=== PATIENT | female | born 1950 | race Caucasian/White ===

== ENCOUNTER 2024-03-11 10:31 | Inpatient (IN) | payer MEDICARE, MEDICAID, SELFPAY ==
--- NOTE | ~2024-03-11 | XR_ITS ---
EXAMINATION: XR ABDOMEN KUB CLINICAL INDICATION: R/O GI obstruction COMPARISON: None available. TECHNIQUE: AP view of the abdomen. FINDINGS: The bowel gas pattern is nonobstructive, without any evidence for free air. There is large colonic and rectal fecal material. Bony structures appear intact. There is multilevel thoracic and lumbar spondylosis. XR/XR KUB IMPRESSION: Nonobstructive bowel gas pattern. Large colonic and rectal fecal material. Electronically signed by: Chencho Ugalde MD 04/16/2024 02:13 PM [facility]
--- NOTE | ~2024-03-11 | CT_ITS ---
EXAMINATION: CT HEAD WITHOUT CONTRAST CLINICAL INFORMATION: Right-sided weakness. COMPARISON: None available. TECHNIQUE: Contiguous axial imaging was performed from the skull base to vertex without intravenous administration of contrast. This CT examination was performed using dose optimization techniques as appropriate, variously including the following: *Automated exposure control. *Adjustment of mA and/or kV according to patient size (this includes techniques or standardized protocols for targeted exams where dose is matched to indication/reason for exam; i.e. extremities or head). *Use of iterative reconstruction technique. DLP: 1428 mGy-cm FINDINGS: There is no evidence of acute intracranial hemorrhage or edematous territorial infarction. Kowalski-white matter differentiation is preserved. A few foci of hypoattenuation in the periventricular and deep white matter are consistent with mild to moderate microangiopathy. The ventricles are normal in morphology and size. No evidence for obstructive hydrocephalus. Arachnoid cyst in the anterior aspect of the right middle cranial fossa, measuring up to 4.5 cm. No additional abnormal mass effect or midline shift. No extra-axial fluid collections. Calcific atherosclerotic disease of the intracranial internal carotid arteries. No hyperdense vessel sign. No acute soft tissue or osseous abnormalities. Mild mucosal thickening of the paranasal sinuses. The mastoid air cells and middle ear cavities are clear. CT/CT head/brain wo IV con IMPRESSION: 1. No evidence of acute intracranial hemorrhage or edematous territorial infarction. 2. Mild to moderate underlying microangiopathy. 3. Arachnoid cyst in the right middle cranial fossa. Electronically signed by: Mino Arriaga DO 03/18/2024 06:26 PM [facility]
--- NOTE | ~2024-03-11 | CT_ITS ---
EXAMINATION: CT HEAD WITHOUT CONTRAST CLINICAL INFORMATION: Unwitnessed fall. COMPARISON: Most recent CT head dated 03/19/2024. TECHNIQUE: Contiguous axial imaging was performed from the skull base to vertex without intravenous administration of contrast. This CT examination was performed using dose optimization techniques as appropriate, variously including the following: *Automated exposure control *Adjustment of mA and/or kV according to patient size (this includes techniques or standardized protocols for targeted exams where dose is matched to indication/reason for exam; i.e. extremities or head) *Use of iterative reconstruction technique DLP: 650 mGy-cm FINDINGS: Mild prominence of the ventricles and sulci, consistent with mild diffuse atrophy, unchanged. Right middle cranial fossa arachnoid cyst, unchanged when compared to the prior examination. No intracranial mass or mass effect. No midline shift. The padilla-white differentiation is maintained. No new extra-axial collection. No acute intracranial hemorrhage. The ventricles and basal cisterns are patent. No soft tissue mass or fluid collection. The calvarium is intact. The visualized paranasal sinuses and mastoid air cells are clear. CT/CT head/brain wo IV con IMPRESSION: 1. No acute intracranial hemorrhage or mass effect. 2. Stable right middle cranial fossa arachnoid cyst. Electronically signed by: Getachew Arana MD 04/05/2024 05:[address] [facility]
--- NOTE | ~2024-03-11 | CT_ITS ---
EXAMINATION: CT HEAD WITHOUT CONTRAST CLINICAL INFORMATION: Trauma. COMPARISON: March 18, 2024 TECHNIQUE: Contiguous axial imaging was performed from the skull base to vertex without intravenous administration of contrast. This CT examination was performed using dose optimization techniques as appropriate, variously including the following: *Automated exposure control *Adjustment of mA and/or kV according to patient size (this includes techniques or standardized protocols for targeted exams where dose is matched to indication/reason for exam; i.e. extremities or head) *Use of iterative reconstruction technique DLP: 637 mGy-cm FINDINGS: There is again seen mild cerebral volume loss with prominence of the lateral and the third ventricles. The cortical sulci are widened appropriately. The fourth ventricle and basal cisterns are normally outlined. There is mild bilateral periventricular and central white matter diminished attenuation. There is no acute territorial defects, hemorrhage or midline shift. There is again seen a right middle cranial fossa arachnoid cyst measuring up to 4.5 cm unchanged compared to prior. Calvarium/scalp: The calvarium is intact. There is left frontal scalp soft tissue swelling not present on prior. Maxillofacial sinuses and mastoids: Clear as visualized. CT/CT head/brain wo IV con IMPRESSION: 1. Left frontal scalp soft tissue swelling. 2. No acute intracranial process seen. 3. Stable right middle cranial fossa arachnoid cyst. Electronically signed by: Andreas Olsen MD 03/19/2024 02:08 AM [facility]
[2024-03-11 10:44] VITALS: BP 101/55; BP 90/50; PULSE 88; PULSE 97; RESP 18; TEMP 36.5; O2SAT 98; BMI 27.4
--- NOTE | 2024-03-11 10:47 | ED_ITS ---
HPI - Psych General Chief Complaint: Psychiatric Symptoms Stated Complaint: SI ATTEMPT,ELOPED FROM SNF AND ENTERED TRAFFIC Time Seen by Provider: 03/11/24 10:41 Source: patient, EMS and old records reviewed Mode of arrival: EMS Limitations: other (poor historian) History of Present Illness ED Provider: SAM HPI Narrative: 73 yo female with hx of HTN, mood disorder, hypothyroidism, post op VTE 2 years, baseline Cr 1.1 - she comes today with thoughts that a friend is writing a story about her that is horrible and everyone will hate her. She doesn't say much more but she eloped from [place] today and tried to walk into traffic. She denies HI but doesn't want to live once everyone sees the book. MD complaint: suicidal ideation and feels depressed Onset (ago): week(s) Duration: getting worse History of same: Yes Relieving factors: none Exacerbating factors: other Context: significant life stressor Associated psychiatric symptoms: depression and suicidal ideation Associated symptoms: denies other symptoms Treatments prior to arrival: placed on mental health hold If self harm: admits thoughts of self harm and has plan Related Data Allergies Allergy/AdvReac Type Severity Reaction Status Date / Time No Known Allergies Allergy Verified 03/11/24 10:47 Review of Systems 2 Review of Systems: Constitutional : No Fever, No Chills ENT/Mouth : No Ear Pain, No Nasal Congestion, No sore throat Eyes: No Eye Pain, No Swelling, No Redness Cardiovascular : No Chest Pain, No SOB Respiratory : No Cough, No Sputum, No Dyspnea Gastrointestinal : No Nausea, No Vomiting, No Diarrhea, No Hematochezia, No Melena Genitourinary : No Dysuria, No Urinary Frequency, No Hematuria Musculoskeletal : No Myalgias Skin : No Skin Lesions, No rash Neuro : No Weakness, No Numbness, No Paresthesias, No Dizziness, No Headache Psych : positive Anxiety, positive Depression, positive SI no HI All other systems reviewed and are negative PMFSH Past Medical History Attestation statement: The following information was validated with the patient. Source: old records reviewed Medical History Hypothyroidism HTN (hypertension) GERD (gastroesophageal reflux disease) Mood disorder Social History Social History (Updated 03/11/24 @ 11:53 by Starla Cordero DO) Patient Tobacco Use Status: Tobacco use Unknown Physical Exam 2 Vital Signs: Vital Signs: Last Vital Signs Temp 97.7 F 03/11/24 10:44 Pulse 97 03/11/24 10:44 Resp 18 03/11/24 10:44 BP 101/55 L 03/11/24 10:44 Pulse Ox 98 03/11/24 10:44 O2 Del Method Room Air 03/11/24 10:44 BMI result Body Mass Index 27.4 Appearance: Alert. Oriented X3. No acute distress. guarded and anxious Eyes: Pupils equal, round and reactive to light. ENT: Pharynx normal. Neck: Normal inspection. Neck supple. CVS: Normal heart rate and rhythm. Pulses normal. Respiratory: No respiratory distress. Breath sounds normal. Abdomen: Soft and non-tender. Skin: Skin warm and dry. Normal skin color. Normal skin turgor. Extremities: No lower extremity edema. Neuro: Oriented X 3. No motor deficit. No sensory deficit. CN2-12 intact Medical Decision Making Medical Decision Making [facility] Narrative: 73 yo female with hx of HTN, mood disorder, hypothyroidism, post op VTE 2 years, baseline Cr 1.1 here with c/o SI and plan - eloped from [facility] at this time she has no medical complaints will obtain basic labs, UA, refer to CARE team. Differential Diagnosis Differential Diagnoses: The differential diagnosis associated with the presentation includes depression, SI, delusions Admission/Observation Consideration of admission/observation: Escalation of care including admission/observation considered physician observation pending CARE team started at 1202pm Lab Data [facility] Lab Attestation statement: I reviewed the patient's lab results. Cr 1.4 today baseline is 1.1 03/11/24 11:07 03/11/24 11:07 Labs: Lab Results 03/11/24 Range/Units 11:07 WBC 7.8 (4.8-10.8) X10*3/uL RBC 3.77 L (4.20-5.50) X10*6/uL Hgb 11.6 L (12.0-16.0) g/dl Hct 34.5 L (37.0-47.0) % MCV 91.5 (80.0-98.0) fL MCH 30.8 (27.0-33.0) pg MCHC 33.6 (31.0-35.0) g/dl RDW 14.8 (11.0-16.0) % Plt Count 205 (160-400) X10*3/uL MPV 10.3 (9.4-12.3) fL Immature Gran % (Auto) 0.4 (0.0-0.4) % Neut % (Auto) 80.2 H (45-73) % Lymph % (Auto) 9.8 L (20-40) % Anderson % (Auto) 8.6 (2-11) % Eos % (Auto) 0.5 (0-4) % Baso % (Auto) 0.5 (0-2) % Lymph # (Auto) 0.8 L (1.2-4.9) X10*3/uL Anderson # (Auto) 0.7 (0.1-1.2) X10*3/uL Eos # (Auto) 0.0 (0.0-0.4) X10*3/uL Baso # (Auto) 0.0 (0.0-0.2) X10*3/uL Abs Immat Gran (auto) 0.03 (0.00-0.03) X10*3/uL Absolute Neuts (auto) 6.2 (2.0-8.3) x10*3/uL Absolute Nucleated RBC 0.000 (0.0-0.012) X10*3/uL Nucleated RBC % (auto) 0.0 (0.0-0.2) /100WBC Sodium 141 (135-145) mmol/L Potassium 4.2 (3.3-5.1) mmol/L Chloride 107 (96-108) mmol/L Carbon Dioxide 24 (22-29) mmol/L Anion Gap 14 (12-20) BUN 18 H (9-16) mg/dL Creatinine 1.47 H (0.5-1.4) mg/dL Estim Creat Clear Calc 36.2 Estimated GFR 35 Random Glucose 119 H (60-115) mg/dL Calcium 9.8 (8.4-10.2) mg/dL Total Bilirubin 0.3 (0.0-1.0) mg/dL AST 20 (5-31) U/L ALT 16 (0-31) U/L Alkaline Phosphatase 90 (39-117) U/L Total Protein 6.0 L (6.5-8.0) g/dL Albumin 4.0 (3.5-5.0) g/dL Ethyl Alcohol < 10 mg/dL Independent Historian Clinical information obtained from an independent historian. History obtained from or confirmed by: EMS External Record Review External record reviewed: Outpatient record Discharge Plan Discharge Clinical Impression: Suicidal ideation Patient Disposition: Still a Patient Print Language: Mohawk
[2024-03-11 11:15] LABS: MANUAL DIFF FLAG NO
[2024-03-11 11:16] LABS: Basophils Percent Auto 0.5 % (0-2); Eosinophils Percent Auto 0.5 % (0-4); Hematocrit 34.5 % (37.0-47.0); Hemoglobin 11.6 g/dl (12.0-16.0); Imm Gran Abs Auto 0.03 X10*3/uL (0.00-0.03); Imm Gran Pct Auto 0.4 % (0.0-0.4); Lymphocytes Absolute Auto 0.8 X10*3/uL (1.2-4.9); Lymphocytes Percent Auto 9.8 % (20-40); Mean Corpuscular HGB Conc 33.6 g/dl (31.0-35.0); Mean Corpuscular Hemoglobin 30.8 pg (27.0-33.0); Mean Corpuscular Volume 91.5 fL (80.0-98.0); Mean Platelet Volume 10.3 fL (9.4-12.3); Monocytes Absolute Auto 0.7 X10*3/uL (0.1-1.2); Monocytes Percent Auto 8.6 % (2-11); Neutrophils Absolute Auto 6.2 x10*3/uL (2.0-8.3); Neutrophils Percent Auto 80.2 % (45-73); Platelet Count 205 X10*3/uL (160-400); Red Blood Count 3.77 X10*6/uL (4.20-5.50); Red Cell Distribution Width 14.8 % (11.0-16.0); White Blood Count 7.8 X10*3/uL (4.8-10.8)
[2024-03-11 11:34] LABS: Alanine Aminotransferase 16 U/L (0-31); Alkaline Phosphatase 90 U/L (39-117); Anion Gap 14 (12-20); Aspartate Amino Transferase 20 U/L (5-31); Bilirubin Total 0.3 mg/dL (0.0-1.0); Blood Urea Nitrogen 18 mg/dL (9-16); Calcium 9.8 mg/dL (8.4-10.2); Carbon Dioxide 24 mmol/L (22-29); Chloride 107 mmol/L (96-108); Creatinine Clr Calc Pharmacy 36.2; Estimated Glomerular Filt Rate 35; Ethanol < 10 mg/dL; Glucose Random 119 mg/dL (60-115); Potassium 4.2 mmol/L (3.3-5.1); Sodium 141 mmol/L (135-145)
[2024-03-11 12:06] VITALS: RESP 16
--- NOTE | 2024-03-11 12:09 | PC.NURSE ---
Assumed care of patient at 1100, patient appears to be in no apparent distress this am. pt endorses walking into traffic as an SI attempt. Unable to elaborate on why she feels suicidal. pt reports being worried that there are aggressive TV shows on . This RN changed the TV channel for pt, pt appears to be calm and cooperative now. Pt aware of need for urine sample, provided with water at this time
[2024-03-11 13:05] VITALS: RESP 14
--- NOTE | 2024-03-11 13:23 | PC.NURSE ---
This RN called [facility] and spoke with Cayla, the Clinical Director at [facility], regarding Deedee. She reports that Deedee has been living at [facility] for about 3-4 years now and within the last year, her psychiatrist at [facility] started changing her medications which seemed to put her in a spiral. She was put inpatient at [facility] in January and stayed there for about 3-4 weeks where they changed her Clozaril dosage. Pt has been back at [facility] for about 1.5 weeks and has been struggling since. Cayla relayed that Dr. Serrano ([facility] psychiatrist) has been trying to work with our inpatient psychiatrists here at [facility] to potentially restart her ECT therapy. She last received ECT therapy back in 1998 here at [facility]. Cayla- [phone]
[2024-03-11 13:38] LABS: Appearance Urine Clear; Color Urine Yellow; Glucose Urine UA Negative (Negative); Leukocyte Esterase Urine Small (1+) (Negative); Nitrite Urine Negative (Negative); PH 6.5 (5.0-9.0); Specific Gravity - Urine <= 1.005 (1.005-1.025); UMIC TRIGGER UACC YES; Urine Blood Negative (Negative); Urine Ketones Negative (Negative); Urine Protein Negative (Neg-Trace)
[2024-03-11 13:46] LABS: Bacteria Urine None Seen (None Seen); Hyaline Casts Urine 0-2 /LPF (0-2); RBC Urine 0-2 /HPF (0-2); Squamous Epithelial Cell Urine 0-2 /HPF (0-2); UACC Culture Trigger YES; WBC Urine 0-5 /HPF (0-5)
[2024-03-11 13:48] LABS: Amphetamine Screen Urine Not Detected (Not Detect); Barbiturates, Urine Not Detected (Not Detect); Benzodiazepines Screen Urine Not Detected (Not Detect); Buprenorphine Scr Not Detected (Not Detect); Cannabinoid Screen Urine Not Detected (Not Detect); Cocaine Screen Urine Not Detected (Not Detect); Fentanyl, urine Not Detected (Not Detect); Methadone Screen, Urine Not Detected (Not Detect); Opiate Screen Urine Not Detected (Not Detect); Oxycodone Screen Urine Not Detected (Not Detect); Phencyclidine Screen Urine Not Detected (Not Detect)
--- NOTE | 2024-03-11 14:45 | PC.NURSE ---
RE: Med Rec This RN completed med rec with list from facility
--- NOTE | 2024-03-11 16:23 | MHC.CARE ---
Patient evaluated by the CARE Team, disposition inpatient psychiatric treatment, ED provider Dr. Cordero updated.
[2024-03-11 20:05] VITALS: BP 144/93; PULSE 92; RESP 20; TEMP 36.6; O2SAT 98
[2024-03-11] MEDS: lamoTRIgine 25 MG TABLET 50 MG PO (20:25)
[2024-03-11] MEDS: risperiDONE 3 MG TABLET 6 MG PO (20:25)
[2024-03-11] MEDS: Sennosides 8.6 MG TABLET PO (20:25)
[2024-03-11] MEDS: cloZAPine 100 MG TABLET 300 MG PO (20:25)
[2024-03-11] MEDS: Milk of Magnesia 30 ML ORAL.SUSP PO (20:25)
--- NOTE | 2024-03-12 | ECG_ITS ---
Test Reason : check qt interval Blood Pressure : / mmHG Vent. Rate : 088 BPM Atrial Rate : 088 BPM P-R Int : 132 ms QRS Dur : 100 ms QT Int : 400 ms P-R-T Axes : 063 046 054 degrees QTc Int : 484 ms Normal sinus rhythm Normal ECG No previous ECGs available Referred By: Starla Cordero Electronically Signed By:MARGAUX BERRIOS MD
--- NOTE | 2024-03-12 03:32 | PC.NURSE ---
Patient appears to be sleeping, respirations even and unlabored, RR 18, no signs of distress.
[2024-03-12 06:35] VITALS: BP 108/76; PULSE 84; RESP 16; TEMP 36.8; O2SAT 99
[2024-03-12] MEDS: Levothyroxine Sodium 75 MCG TABLET PO (06:41)
--- NOTE | 2024-03-12 07:13 | PC.NURSE ---
Assumed care of patient at 0645, patient appears to be sleeping, respirations even and unlabored. No apparent distress noted. Continue plan of care for Inpatient bedsearch
--- NOTE | 2024-03-12 08:28 | PHA.MEDREC ---
Addendum entered by Dwight Niño [facility] 03/12/24 08:36: NUrsing utulized list from facility. On the list, there is a note that says her medications were being frequently changed. Med rec did not include lisinopril 2.5mg, clonidine 0.1mg, gabapentin 300mg and gabapentin 100mg. Addendum entered by Dwight Niño [facility] 03/12/24 08:32: Reviewed by [facility]. Jayjay called and confirmed clozapine 03/11/24 Original Note: Pharmacy Consult ? Medication Reconciliation Pharmacy has reviewed the medication reconciliation done by nursing. Claims match med list.
[2024-03-12] MEDS: risperiDONE 3 MG TABLET 6 MG PO ×2 (08:58→20:34)
[2024-03-12] MEDS: cloZAPine 100 MG TABLET PO (08:58)
[2024-03-12] MEDS: Famotidine 20 MG TABLET PO (08:58)
[2024-03-12] MEDS: lamoTRIgine 25 MG TABLET 50 MG PO ×2 (08:58→20:34)
[2024-03-12 13:18] LABS: Glucose, Whole Blood 118 mg/dL (60-115)
--- NOTE | 2024-03-12 18:27 | PC.NURSE ---
Pt came onto the unit at 1545, via wheelchair from ED pod, with security present. Pt reports I walked into traffic to try to end it all . Pt alert and oriented X3, unsure if pt is oriented to situation, pt stated There is a erin, Al Waggoner, who is writing a book about me which is going to ruin me and my family. . The pt ambulates independently, states I don't need much help with anything . Pt reports prior history of SI attempts, prior history of ECT. Pt stated I don't want ECT, it made me lose my memory last time .
[2024-03-12 20:00] VITALS: BP 98/69; PULSE 85; RESP 16; TEMP 36.6; O2SAT 97
[2024-03-12] MEDS: cloZAPine 100 MG TABLET 300 MG PO (20:34)
[2024-03-12] MEDS: Flu Vacc TS2024-25(6mos up)/PF 0.5 ML SYRINGE IM (20:42)
[2024-03-13] MEDS: Levothyroxine Sodium 75 MCG TABLET PO (06:24)
[2024-03-13 08:00] VITALS: BP 116/72; PULSE 84; RESP 16; TEMP 35.8; O2SAT 98
--- NOTE | 2024-03-13 09:00 | HO.PSYADMNOT ---
HPI Date of Service: 03/13/24 Chief Complaint: Psychosis Sources of Information: patient interviewed, chart reviewed and crisis/core team assessment reviewed HPI Subjective Notes: [place] Warning and Conditional Voluntary Narrative: The patient is a 73-year-old female, resident of an assisted living facility for several years, chronically mentally ill, with [facility] case managed, with a past history of schizophrenia on Clozaril 400 mg a day and Risperdal 12 mg a day, referred from hospital out of our catchment area for exacerbation of psychosis, paranoia and disorganized behavior. According to the crisis assessment, the patient had been seen on the street confused running into traffic. She was assessed on a local ED and transferring to this facility for psychiatric stabilization. On interview the patient was cooperative, alert and oriented x4, she stated that she had been compliant with treatment and she admitted some paranoia and ideas of reference. She denies auditory hallucinations, visual hallucinations. She is very pleasant and cooperative and does not understand clearly why she was brought here. She was unable to articulate that she was running into traffic before coming here. She has a history of chronic mental illness and she had been admitted several times in her life. She was able to contract for safety in the facility. Since the patient is a very poor historian, we are trying to gather more collateral information and we are going to keep him her on her regular doses of antipsychotics. No evidence of acute problems at this moment. Past Psychiatric History: She had been taking psychiatric medications since 1986, she admitted that she had several admissions into the hospital for schizophrenia. She also has been case managed by [facility]. Medical Evaluation Reviewed: Yes [facility] Medical History (Updated 03/13/24 @ 12:52 by Christiano Cerda MD) Schizophrenia CKD (chronic kidney disease) Hyperlipidemia Type 2 diabetes mellitus Hypothyroidism HTN (hypertension) GERD (gastroesophageal reflux disease) Mood disorder Diagnostics Vital Signs (24Hr): Vital Signs - 24 hr 03/12/24 20:00 Temperature 97.8 F Pulse Rate 85 Respiratory Rate 16 Blood Pressure 98/69 Pulse Oximetry 97 Oxygen Delivery Method Room Air BMI result Body Mass Index 27.4 Labs 03/11/24 11:07 03/13/24 08:18 Labs: Laboratory Results - last 48 hr 03/11/24 03/11/24 03/12/24 11:07 13:25 13:15 WBC 7.8 RBC 3.77 L Hgb 11.6 L Hct 34.5 L MCV 91.5 MCH 30.8 MCHC 33.6 RDW 14.8 Plt Count 205 MPV 10.3 Immature Gran % (Auto) 0.4 Neut % (Auto) 80.2 H Lymph % (Auto) 9.8 L [place] % (Auto) 8.6 Eos % (Auto) 0.5 Baso % (Auto) 0.5 Lymph # (Auto) 0.8 L [place] # (Auto) 0.7 Eos # (Auto) 0.0 Baso # (Auto) 0.0 Abs Immat Gran (auto) 0.03 Absolute Neuts (auto) 6.2 Absolute Nucleated RBC 0.000 Nucleated RBC % (auto) 0.0 Sodium 141 Potassium 4.2 Chloride 107 Carbon Dioxide 24 Anion Gap 14 BUN 18 H Creatinine 1.47 H Estim Creat Clear Calc 36.2 Estimated GFR 35 POC Glucose 118 H Random Glucose 119 H Calcium 9.8 Total Bilirubin 0.3 AST 20 ALT 16 Alkaline Phosphatase 90 Total Protein 6.0 L Albumin 4.0 Urine Color Yellow Urine Appearance Clear Urine pH 6.5 Ur Specific [place] <= 1.005 Urine Protein Negative Urine Glucose (UA) Negative Urine Ketones Negative Urine Blood Negative Urine Nitrite Negative Ur Leukocyte Esterase Small (1+) H Urine RBC 0-2 Urine WBC 0-5 Ur Squamous Epith Cells 0-2 Urine Bacteria None Seen Hyaline Casts 0-2 Urine Opiates Screen Not Detected Ur Buprenorphine Scrn Not Detected Ur Oxycodone Screen Not Detected Urine Methadone Screen Not Detected Urine Fentanyl Screen Not Detected Ur Barbiturates Screen Not Detected Ur Phencyclidine Scrn Not Detected Ur Amphetamines Screen Not Detected U Benzodiazepines Scrn Not Detected Urine Cocaine Screen Not Detected U Marijuana (THC) Screen Not Detected Ethyl Alcohol < 10 Meds/Allergies Meds Home Medications ?Medication ?Instructions ?Recorded ?Confirmed ?Type clozapine 100 mg tablet 100 mg PO DAILY 03/11/24 03/11/24 History clozapine 100 mg tablet 300 mg PO BEDTIME 03/11/24 03/11/24 History famotidine 20 mg tablet 20 mg PO DAILY 03/11/24 03/11/24 History lamotrigine 25 mg tablet 50 mg PO BID 03/11/24 03/11/24 History levothyroxine 75 mcg tablet 75 mcg PO DAILY 03/11/24 03/11/24 History risperidone 2 mg tablet 6 mg PO BID 03/11/24 03/11/24 History sennosides 8.6 mg tablet (senna) 8.6 mg PO DAILY PRN Constipation 03/11/24 03/11/24 History Allergies Allergies Allergy/AdvReac Type Severity Reaction Status Date / Time trifluoperazine Allergy Unknown Verified 03/11/24 14:16 [From Stelazine] Mental Status Exam Mental Status Exam Patient Appearance: Appropriate (On hospital gowns) Patient Orientation: Person and Situation Level of Consciousness: Awake and Appropriate Patient Behavior: Appropriate, Guarded and Cooperative Mood Description: Withdrawn Affect Description: Constricted Patient Cognition Impaired: Yes Ability to Follow Directions: Good Speech Pattern: Clear Hallucinations: None Delusions: Paranoid Ideation and Ideas of Reference Thought Process: Distracted and Slowed Thinking Thought Content: positive for Circumstantial and positive for Poverty of Content Judgement: Fair Assessment & Plan Assessment & Plan (1) Schizophrenia: Status: Acute Code(s): F20.9 - Schizophrenia, unspecified Plan The patient is an elderly female with a past history of schizophrenia with several admissions into the hospital and she has been treated with Clozaril and Risperdal a very high doses. She was found in the street wandering and nearly walking into traffic. She was assessed by a local emergency room and transferring to this facility for psychiatric stabilization. On admission the patient is very pleasant and cooperative in admitted some paranoia. Even though she is a very poor historian. Plan 1. Gather collateral information. 2. The patient is able to contract for safety so we are changing her observation to 50 minute checks. 3. Continue with Clozaril 100 mg p.o. q.a.m. and 300 mg p.o. q.h.s.. 4. Continue with Risperdal 6 mg p.o. b.i.d. as per med rec. 5. The patient adamantly denies side effects with the current medication treatment and she is willing to continue treatment. 6. Continue with medical workout. 7. Reassessment with results. Patient educated on: diagnosis Informed Consent: understands Reason for continued inpatient stay Substantial Risk for: inability to function, rapid decompensation and med/psych decompensation Statement Statement: I have reviewed the history and physical and performed a pertinent examination on my patient. No changes have occurred unless specified. If the History and Physical was not performed prior to admission, the Hospitalist's service will be consulted for completing the admission physical. Time Spent With Patient Time: Total time managing care of this patient today __45__ minutes.
[2024-03-13 09:18] LABS: Estimated Average Glucose 114 mg/dL; Hemoglobin A1C 110.6644 umol/L; Hemoglobin A1c % 5.6 % (<6.0); Total Hemoglobin (HGBA1C) 2974.0467 umol/L
[2024-03-13 09:34] LABS: Alanine Aminotransferase 10 U/L (0-31); Alkaline Phosphatase 85 U/L (39-117); Anion Gap 10 (12-20); Aspartate Amino Transferase 16 U/L (5-31); Bilirubin Total 0.4 mg/dL (0.0-1.0); Blood Urea Nitrogen 23 mg/dL (9-16); Calcium 9.8 mg/dL (8.4-10.2); Carbon Dioxide 28 mmol/L (22-29); Chloride 108 mmol/L (96-108); Cholesterol 218 mg/dL (<200); Creatinine Clr Calc Pharmacy 36.5; Estimated Glomerular Filt Rate 35; Glucose Fasting 114 mg/dL (60-99); HDL Cholesterol 48 mg/dL (>40); LDL Cholesterol Calculated 144 mg/dL (<100); Magnesium 2.3 mg/dL (1.6-2.6); Sodium 142 mmol/L (135-145); Total Protein 5.8 g/dL (6.5-8.0); Triglycerides 133 mg/dL (<150)
[2024-03-13] MEDS: lamoTRIgine 25 MG TABLET 50 MG PO ×2 (09:36→20:59)
[2024-03-13] MEDS: risperiDONE 3 MG TABLET 6 MG PO ×2 (09:36→21:00)
[2024-03-13] MEDS: cloZAPine 100 MG TABLET PO (09:36)
[2024-03-13 09:41] LABS: Thyroid Stimulating Hormone 3.25 uIU/mL (0.32-4.0)
[2024-03-13] MEDS: Famotidine 20 MG TABLET PO (09:41)
[2024-03-13] MEDS: Milk of Magnesia 30 ML ORAL.SUSP PO (09:42)
[2024-03-13 09:56] LABS: Folate 10.9 ng/mL (> or = 4.0); Vitamin B12 443 pg/mL (200-900)
[2024-03-13 20:00] VITALS: BP 100/67; PULSE 88; RESP 16; TEMP 36.4; O2SAT 98
[2024-03-13] MEDS: cloZAPine 100 MG TABLET 300 MG PO (20:59)
[2024-03-14] MEDS: Levothyroxine Sodium 75 MCG TABLET PO (06:24)
[2024-03-14 08:48] VITALS: BP 127/75; PULSE 92; RESP 18; TEMP 36.3; O2SAT 99
[2024-03-14] MEDS: lamoTRIgine 25 MG TABLET 50 MG PO ×2 (09:07→20:22)
[2024-03-14] MEDS: Famotidine 20 MG TABLET PO (09:08)
[2024-03-14] MEDS: cloZAPine 100 MG TABLET PO (09:08)
[2024-03-14] MEDS: risperiDONE 3 MG TABLET 6 MG PO ×2 (09:08→20:22)
--- NOTE | 2024-03-14 10:55 | HO.PSYCHPN ---
Subjective Subjective Date of Service: 03/14/24 Reason For Visit: Psychosis Interim History: c/o constipation, asking for MOMx2. no other complaints or requests. per staff on risperdal and clozaril. having SI to walk into traffic. thinks people are trying to kill her. AH of people threatening her. Mental Status Exam Mental Status Exam Patient Appearance: Appropriate (On hospital gowns) Patient Orientation: Person and Situation Level of Consciousness: Awake and Appropriate Patient Behavior: Appropriate, Guarded and Cooperative Mood Description: Withdrawn Affect Description: Constricted Patient Cognition Impaired: Yes Ability to Follow Directions: Good Speech Pattern: Clear Hallucinations: None Delusions: Paranoid Ideation and Ideas of Reference Thought Process: Distracted and Slowed Thinking Thought Content: positive for [place] and positive for Poverty of Content Judgement: Fair Diagnostics Vital Signs (24Hr): Vital Signs - 24 hr 03/13/24 20:00 03/14/24 08:48 Temperature 97.6 F 97.3 F Pulse Rate 88 92 Respiratory Rate 16 18 Blood Pressure 100/67 127/75 Pulse Oximetry 98 99 Oxygen Delivery Method Room Air Room Air BMI result Body Mass Index 27.4 Labs 03/11/24 11:07 03/13/24 08:18 Labs: Laboratory Results - last 48 hr 03/12/24 03/13/24 13:15 08:18 Sodium 142 Potassium 4.0 Chloride 108 Carbon Dioxide 28 Anion Gap 10 L BUN 23 H Creatinine 1.46 H Estim Creat Clear Calc 36.5 Estimated GFR 35 POC Glucose 118 H Fasting Glucose 114 H Estimat Average Glucose 114 Hemoglobin A1c % 5.6 Calcium 9.8 Magnesium 2.3 Total Bilirubin 0.4 AST 16 ALT 10 Alkaline Phosphatase 85 Total Protein 5.8 L Albumin 4.0 Triglycerides 133 Cholesterol 218 H LDL Cholesterol, Calc 144 H HDL Cholesterol 48 Vitamin B12 443 Folate 10.9 TSH 3.25 Medications Medications Current Medications Acetaminophen (Acetaminophen 325 Mg Tablet) 650 mg PO Q6H PRN PRN Reason: Headache/Pain Mild Scale (1-3) Al Hydroxide/Mg Hydroxide (Magnesium Hydrox/Alum Hydrox 30 Ml Oral.Susp) 30 ml PO Q6H PRN PRN Reason: Heartburn/Nausea Clozapine (Clozapine 100 Mg Tablet) 100 mg PO DAILY [facility] Last Admin: 03/14/24 09:08 Dose: 100 mg Clozapine (Clozapine 100 Mg Tablet) 300 mg PO BEDTIME [facility] Last Admin: 03/13/24 20:59 Dose: 300 mg Famotidine (Famotidine 20 Mg Tablet) 20 mg PO DAILY [facility] Last Admin: 03/14/24 09:08 Dose: 20 mg Hydroxyzine HCl (Hydroxyzine Hcl 25 Mg Tablet) 25 mg PO Q6H PRN PRN Reason: Anxiety Lamotrigine (Lamotrigine 25 Mg Tablet) 50 mg PO BID [facility] Last Admin: 03/14/24 09:07 Dose: 50 mg Levothyroxine Sodium (Levothyroxine Sodium 75 Mcg Tablet) 75 mcg PO DAILY@0600 [facility] Last Admin: 03/14/24 06:24 Dose: 75 mcg Magnesium Hydroxide (Milk Of Magnesia 30 Ml Oral.Susp) 30 ml PO BID PRN PRN Reason: Constipation Last Admin: 03/13/24 09:42 Dose: 30 ml Nicotine Polacrilex (Nicotine Polacrilex 2 Mg Gum) 2 mg BUCCAL Q2H PRN PRN Reason: Nicotine Cravings Risperidone (Risperidone 3 Mg Tablet) 6 mg PO BID [facility] Last Admin: 03/14/24 09:08 Dose: 6 mg Senna (Sennosides 8.6 Mg Tablet) 8.6 mg PO DAILY PRN PRN Reason: Constipation Last Admin: 03/11/24 20:25 Dose: 8.6 mg Trazodone HCl (Trazodone Hcl 50 Mg Tablet) 50 mg PO BEDTIME MRX1 PRN PRN Reason: Insomnia Allergies Allergies Allergy/AdvReac Type Severity Reaction Status Date / Time trifluoperazine Allergy Unknown Verified 03/11/24 14:16 [From Stelazine] Assessment & Plan Assessment & Plan (1) Schizophrenia: Status: Acute Code(s): F20.9 - Schizophrenia, unspecified Plan The patient is an elderly female with a past history of schizophrenia with several admissions into the hospital and she has been treated with Clozaril and Risperdal a very high doses. She was found in the street wandering and nearly walking into traffic. She was assessed by a local emergency room and transferring to this facility for psychiatric stabilization. On admission the patient is very pleasant and cooperative in admitted some paranoia. Even though she is a very poor historian. Plan 1. Gather collateral information. 2. The patient is able to contract for safety so we are changing her observation to 50 minute checks. 3. Continue with Clozaril 100 mg p.o. q.a.m. and 300 mg p.o. q.h.s.. 4. Continue with Risperdal 6 mg p.o. b.i.d. as per med rec. 5. The patient adamantly denies side effects with the current medication treatment and she is willing to continue treatment. 6. Continue with medical workout. 7. Reassessment with results. 03/14: c/o constipation ,asking for MOM. nurse notifed. otherwise continue current mgmt. Reason for continued inpatient stay Substantial Risk for: harm to self and inability to function Time Spent With Patient Time: Total time managing care of this patient today ____ minutes.
[2024-03-14] MEDS: Milk of Magnesia 30 ML ORAL.SUSP PO (11:16)
[2024-03-14 20:00] VITALS: BP 138/88; PULSE 82; RESP 16; TEMP 36.6; O2SAT 99
[2024-03-14] MEDS: cloZAPine 100 MG TABLET 300 MG PO (20:22)
[2024-03-15] MEDS: Levothyroxine Sodium 75 MCG TABLET PO (06:34)
[2024-03-15 08:03] VITALS: BP 128/73; PULSE 86; RESP 20; TEMP 36.6; O2SAT 98
[2024-03-15] MEDS: lamoTRIgine 25 MG TABLET 50 MG PO ×2 (08:05→21:02)
[2024-03-15] MEDS: cloZAPine 100 MG TABLET PO (08:06)
[2024-03-15] MEDS: risperiDONE 3 MG TABLET 6 MG PO ×2 (08:06→21:03)
[2024-03-15] MEDS: Famotidine 20 MG TABLET PO (08:07)
--- NOTE | 2024-03-15 18:23 | P.PNPSI_ITS ---
Subjective Subjective Date of Service: 03/15/24 Reason For Visit: Psychosis Interim History: no questions or complaints. per medical staff specialist trouble with defecation, asking for laxative PRNs. still reporting SI without plan. isolative. Mental Status Exam Mental Status Exam Patient Appearance: Appropriate (On hospital gowns) Patient Orientation: Person and Situation Level of Consciousness: Awake and Appropriate Patient Behavior: Appropriate, Guarded and Cooperative Mood Description: Withdrawn Affect Description: Constricted Patient Cognition Impaired: Yes Ability to Follow Directions: Good Speech Pattern: Clear Hallucinations: None Delusions: Paranoid Ideation and Ideas of Reference Thought Process: Distracted and Slowed Thinking Thought Content: positive for Circum[place] and positive for Poverty of Content Judgement: Fair Diagnostics Vital Signs (24Hr): Vital Signs - 24 hr 03/14/24 20:00 03/15/24 08:03 Temperature 97.9 F 97.9 F Pulse Rate 82 86 Respiratory Rate 16 20 Blood Pressure 138/88 128/73 Pulse Oximetry 99 98 Oxygen Delivery Method Room Air Room Air BMI result Body Mass Index 27.4 Labs 03/11/24 11:07 03/13/24 08:18 Medications Medications Current Medications Acetaminophen (Acetaminophen 325 Mg Tablet) 650 mg PO Q6H PRN PRN Reason: Headache/Pain Mild Scale (1-3) Al Hydroxide/Mg Hydroxide (Magnesium Hydrox/Alum Hydrox 30 Ml Oral.Susp) 30 ml PO Q6H PRN PRN Reason: Heartburn/Nausea Clozapine (Clozapine 100 Mg Tablet) 100 mg PO DAILY [facility] Last Admin: 03/15/24 08:06 Dose: 100 mg Clozapine (Clozapine 100 Mg Tablet) 300 mg PO BEDTIME [facility] Last Admin: 03/14/24 20:22 Dose: 300 mg Famotidine (Famotidine 20 Mg Tablet) 20 mg PO DAILY [facility] Last Admin: 03/15/24 08:07 Dose: 20 mg Hydroxyzine HCl (Hydroxyzine Hcl 25 Mg Tablet) 25 mg PO Q6H PRN PRN Reason: Anxiety Lamotrigine (Lamotrigine 25 Mg Tablet) 50 mg PO BID [facility] Last Admin: 03/15/24 08:05 Dose: 50 mg Levothyroxine Sodium (Levothyroxine Sodium 75 Mcg Tablet) 75 mcg PO DAILY@0600 [facility] Last Admin: 03/15/24 06:34 Dose: 75 mcg Magnesium Hydroxide (Milk Of Magnesia 30 Ml Oral.Susp) 30 ml PO BID PRN PRN Reason: Constipation Last Admin: 03/14/24 11:16 Dose: 30 ml Nicotine Polacrilex (Nicotine Polacrilex 2 Mg Gum) 2 mg BUCCAL Q2H PRN PRN Reason: Nicotine Cravings Polyethylene Glycol (Polyethylene Glycol 3350 17 Gm Powd.Pack) 17 gm PO DAILY PRN PRN Reason: Constipation Risperidone (Risperidone 3 Mg Tablet) 6 mg PO BID [facility] Last Admin: 03/15/24 08:06 Dose: 6 mg Senna (Sennosides 8.6 Mg Tablet) 8.6 mg PO DAILY PRN PRN Reason: Constipation Last Admin: 03/11/24 20:25 Dose: 8.6 mg Trazodone HCl (Trazodone Hcl 50 Mg Tablet) 50 mg PO BEDTIME MRX1 PRN PRN Reason: Insomnia Allergies Allergies Allergy/AdvReac Type Severity Reaction Status Date / Time trifluoperazine Allergy Unknown Verified 03/11/24 14:16 [From Stelazine] Assessment & Plan Assessment & Plan (1) Schizophrenia: Status: Acute Code(s): F20.9 - Schizophrenia, unspecified Plan The patient is an elderly female with a past history of schizophrenia with several admissions into the hospital and she has been treated with Clozaril and Risperdal a very high doses. She was found in the street wandering and nearly walking into traffic. She was assessed by a local emergency room and transferring to this facility for psychiatric stabilization. On admission the patient is very pleasant and cooperative in admitted some paranoia. Even though she is a very poor historian. Plan 1. Gather collateral information. 2. The patient is able to contract for safety so we are changing her observation to 50 minute checks. 3. Continue with Clozaril 100 mg p.o. q.a.m. and 300 mg p.o. q.h.s.. 4. Continue with Risperdal 6 mg p.o. b.i.d. as per med rec. 5. The patient adamantly denies side effects with the current medication treatment and she is willing to continue treatment. 6. Continue with medical workout. 7. Reassessment with results. 03/14: c/o constipation, asking for MOM. nurse notifed. otherwise continue current mgmt. 03/15: laxative PRN ordered. otherwise stable presentation. SI remains. Reason for continued inpatient stay Substantial Risk for: harm to self and inability to function Time Spent With Patient Time: Total time managing care of this patient today ____ minutes.
[2024-03-15] MEDS: bisacodyL 5 MG TABLET.DR 10 MG PO (19:25)
[2024-03-15 20:00] VITALS: BP 115/78; PULSE 81; RESP 16; TEMP 36.3; O2SAT 98
[2024-03-15] MEDS: cloZAPine 100 MG TABLET 300 MG PO (21:01)
[2024-03-16] MEDS: Levothyroxine Sodium 75 MCG TABLET PO (06:40)
[2024-03-16 08:00] VITALS: BP 126/86; PULSE 92; RESP 18; TEMP 36.6; O2SAT 99
[2024-03-16] MEDS: risperiDONE 3 MG TABLET 6 MG PO ×2 (08:36→20:20)
[2024-03-16] MEDS: cloZAPine 100 MG TABLET PO (08:36)
[2024-03-16] MEDS: Famotidine 20 MG TABLET PO (08:36)
[2024-03-16] MEDS: lamoTRIgine 25 MG TABLET 50 MG PO ×2 (08:36→20:20)
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
[2024-03-16 20:00] VITALS: BP 140/81; PULSE 95; RESP 16; TEMP 36.4; O2SAT 96
[2024-03-16] MEDS: cloZAPine 100 MG TABLET 300 MG PO (20:20)
[2024-03-17] MEDS: Levothyroxine Sodium 75 MCG TABLET PO (05:24)
[2024-03-17 08:10] VITALS: BP 147/87; PULSE 86; RESP 18; TEMP 36; O2SAT 98
[2024-03-17] MEDS: risperiDONE 3 MG TABLET 6 MG PO ×2 (08:14→21:05)
[2024-03-17] MEDS: lamoTRIgine 25 MG TABLET 50 MG PO ×2 (08:14→21:05)
[2024-03-17] MEDS: Famotidine 20 MG TABLET PO (08:16)
[2024-03-17] MEDS: cloZAPine 100 MG TABLET PO (08:16)
--- NOTE | 2024-03-17 08:19 | P.PNPSI_ITS ---
Subjective Subjective Date of Service: 03/17/24 Reason For Visit: Psychosis Interim History: The nursing staff reported the patient went to bed early she took her medications she was quiet, reading a book. On 50 minute checks. On interview the patient denies new symptoms she refused increased of her medications she denies active suicidal ideation at this point. Mental Status Exam Mental Status Exam Patient Appearance: Appropriate Patient Orientation: Person and Situation Level of Consciousness: Awake and Appropriate Patient Behavior: Guarded and Passive Mood Description: Withdrawn Affect Description: Constricted Patient Cognition Impaired: Yes Ability to Follow Directions: Good Speech Pattern: Clear Hallucinations: None Delusions: Not Present Thought Process: Distracted and Slowed Thinking Thought Content: positive for [place] and positive for Poverty of Content Judgement: Fair Diagnostics Vital Signs (24Hr): Vital Signs - 24 hr 03/16/24 20:00 03/17/24 08:10 Temperature 97.6 F 96.8 F Pulse Rate 95 86 Respiratory Rate 16 18 Blood Pressure 140/81 H 147/87 H Pulse Oximetry 96 98 Oxygen Delivery Method Room Air Room Air BMI result Body Mass Index 27.4 Labs 03/11/24 11:07 03/13/24 08:18 Medications Medications Current Medications Acetaminophen (Acetaminophen 325 Mg Tablet) 650 mg PO Q6H PRN PRN Reason: Headache/Pain Mild Scale (1-3) Al Hydroxide/Mg Hydroxide (Magnesium Hydrox/Alum Hydrox 30 Ml Oral.Susp) 30 ml PO Q6H PRN PRN Reason: Heartburn/Nausea Clozapine (Clozapine 100 Mg Tablet) 100 mg PO DAILY [facility] Last Admin: 03/17/24 08:16 Dose: 100 mg Clozapine (Clozapine 100 Mg Tablet) 300 mg PO BEDTIME [facility] Last Admin: 03/16/24 20:20 Dose: 300 mg Famotidine (Famotidine 20 Mg Tablet) 20 mg PO DAILY [facility] Last Admin: 03/17/24 08:16 Dose: 20 mg Hydroxyzine HCl (Hydroxyzine Hcl 25 Mg Tablet) 25 mg PO Q6H PRN PRN Reason: Anxiety Lamotrigine (Lamotrigine 25 Mg Tablet) 50 mg PO BID [facility] Last Admin: 03/17/24 08:14 Dose: 50 mg Levothyroxine Sodium (Levothyroxine Sodium 75 Mcg Tablet) 75 mcg PO DAILY@0600 [facility] Last Admin: 03/17/24 05:24 Dose: 75 mcg Magnesium Hydroxide (Milk Of Magnesia 30 Ml Oral.Susp) 30 ml PO BID PRN PRN Reason: Constipation Last Admin: 03/14/24 11:16 Dose: 30 ml Nicotine Polacrilex (Nicotine Polacrilex 2 Mg Gum) 2 mg BUCCAL Q2H PRN PRN Reason: Nicotine Cravings Polyethylene Glycol (Polyethylene Glycol 3350 17 Gm Powd.Pack) 17 gm PO DAILY PRN PRN Reason: Constipation Risperidone (Risperidone 3 Mg Tablet) 6 mg PO BID [facility] Last Admin: 03/17/24 08:14 Dose: 6 mg Senna (Sennosides 8.6 Mg Tablet) 8.6 mg PO DAILY PRN PRN Reason: Constipation Last Admin: 03/11/24 20:25 Dose: 8.6 mg Trazodone HCl (Trazodone Hcl 50 Mg Tablet) 50 mg PO BEDTIME MRX1 PRN PRN Reason: Insomnia Allergies Allergies Allergy/AdvReac Type Severity Reaction Status Date / Time trifluoperazine Allergy Unknown Verified 03/11/24 14:16 [From Stelazine] Assessment & Plan Assessment & Plan (1) Schizophrenia: Status: Acute Code(s): F20.9 - Schizophrenia, unspecified Plan The patient is an elderly female with a past history of schizophrenia with several admissions into the hospital and she has been treated with Clozaril and Risperdal a very high doses. She was found in the street wandering and nearly walking into traffic. She was assessed by a local emergency room and transferring to this facility for psychiatric stabilization. On admission the patient is very pleasant and cooperative in admitted some paranoia. Even though she is a very poor historian. Plan 1. Gather collateral information. 2. The patient is able to contract for safety so we are changing her observation to 50 minute checks. 3. Continue with Clozaril 100 mg p.o. q.a.m. and 300 mg p.o. q.h.s.. 4. Continue with Risperdal 6 mg p.o. b.i.d. as per med rec. 5. The patient adamantly denies side effects with the current medication treatment and she is willing to continue treatment. 6. Continue with medical workout. 7. Reassessment with results. 8. Laxative was added as a p.r.n.. 9. We will discuss with the patient the possibility of adding a 2nd antidepressant. Reason for continued inpatient stay Substantial Risk for: inability to function, rapid decompensation and med/psych decompensation Time Spent With Patient Time: Total time managing care of this patient today __20__ minutes.
[2024-03-17 20:00] VITALS: BP 134/87; PULSE 90; RESP 18; TEMP 36.6; O2SAT 98
[2024-03-17] MEDS: hydrOXYzine HCL 25 MG TABLET PO (21:05)
[2024-03-17] MEDS: cloZAPine 100 MG TABLET 300 MG PO (21:05)
[2024-03-17] MEDS: traZODone HCL 50 MG TABLET PO (21:05)
--- NOTE | 2024-03-18 00:29 | PC.NURSE ---
Patient had increased confusion and paranoia at bedtime, intrusive with peers, impulsive and ambulating with unsteady gait, poorly responsive to redirection. call center analyst provider Dr Cerda notified, order given to place patient on 1:1 monitoring for safety.
[2024-03-18] MEDS: Levothyroxine Sodium 75 MCG TABLET PO (06:42)
[2024-03-18 08:00] VITALS: BP 125/79; PULSE 85; RESP 12; TEMP 36.3; O2SAT 98
[2024-03-18 08:30] LABS: Neut%MD 69.4 %; Neutrophils Absolute Auto 4.2 x10*3/uL (2.0-8.3)
[2024-03-18] MEDS: lamoTRIgine 25 MG TABLET 50 MG PO ×2 (08:46→20:34)
[2024-03-18] MEDS: Famotidine 20 MG TABLET PO (08:46)
[2024-03-18] MEDS: cloZAPine 100 MG TABLET PO (08:46)
[2024-03-18] MEDS: risperiDONE 3 MG TABLET 6 MG PO ×2 (08:46→20:33)
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
[2024-03-18 20:00] VITALS: BP 166/85; PULSE 84; RESP 18; TEMP 35.4; O2SAT 95
[2024-03-18] MEDS: cloZAPine 100 MG TABLET 300 MG PO (20:34)
[2024-03-18] MEDS: traZODone HCL 50 MG TABLET PO (20:35)
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
--- NOTE | 2024-03-19 | ECG_ITS ---
Test Reason : ECT pre-op Blood Pressure : / mmHG Vent. Rate : 082 BPM Atrial Rate : 326 BPM P-R Int : 000 ms QRS Dur : 100 ms QT Int : 412 ms P-R-T Axes : 056 010 041 degrees QTc Int : 481 ms Artifact in tracing Likely sinus rhythm Normal ECG When compared with ECG of 12-MAR-2024 09:05, No significant changes seen Referred By: Salty Melton Electronically Signed By:GENIA CASILLAS
--- NOTE | 2024-03-19 | ECG_ITS ---
Test Reason : Previous with ?AFlutter Blood Pressure : / mmHG Vent. Rate : 082 BPM Atrial Rate : 312 BPM P-R Int : 000 ms QRS Dur : 094 ms QT Int : 394 ms P-R-T Axes : 065 008 035 degrees QTc Int : 460 ms Artifact in tracing likely Normal sinus rhythm Normal ECG When compared with ECG of 19-MAR-2024 17:33, No significant change was found Referred By: Salty Melton Electronically Signed By:GENIA CASILLAS
--- NOTE | 2024-03-19 01:43 | PC.NURSE ---
on 03/19/24@0045 patient fell while running from 1:1, patient hit her head and has a bump on left side of forehead, no other injuries, 127/79, 90HR, 96.1f, 98%@STANLEY GUZMAN, grasp equal and strong, CT scan done, results pending
[2024-03-19 02:35] VITALS: BP 127/79; PULSE 90; RESP 18; TEMP 35.6; O2SAT 98
[2024-03-19] MEDS: LORazepam 1 MG TABLET 2 MG PO (03:25)
[2024-03-19 07:00] VITALS: BMI 31.3
[2024-03-19 08:00] VITALS: BP 145/89; PULSE 77; RESP 14; TEMP 36.6; O2SAT 99
[2024-03-19] MEDS: cloZAPine 25 MG TABLET 50 MG PO (11:51)
--- NOTE | 2024-03-19 16:10 | HO.ECTCONS_ITS ---
History of Present Illness Data of Consult Service Date: 03/19/24 Primary Care Provider: Callum Field MD [facility] Reason for consult: ECT risk stratification Patient is a 73-year-old female with a PMH significant for HTN, post op VTE 2 years ago, hypothyroidism, and mood disorder who was admitted to [facility] after eloping from [facility] and walking into traffic on purpose. Patient apparently believes a friend is writing a horrible story about and does not want to live after everyone reads the book as she believes everyone will hate her. Hospitalist consult for ECT risk stratification. Patient reports she has a prior history of ECT, last treated in 1998. Patient reports treatments helped and she had no complications. Patient denies any significant history of seizure disorder, severe pulmonary condition, or bleeding disorder. No history of TIA/CVA, TBI, or brain tumor/mass. No previous complications from anesthesia. No significant cardiac history, including CAD or history of heart attack. Patient currently denies any acute medical complaints. No fever, chills, nausea, vomiting, abdominal pain. Denies shortness or breath or difficulty breathing. No chest pain/pressure, or palpitations. EKG from time of admission on 03/12 showed normal sinus rhythm with QTc 484 and no signs of significant ST elevations or depressions. Review of Systems 2 Review of Systems: The patient has no acute medical complaints at this time. [facility] Medical History (Updated 03/19/24 @ 16:42 by DESHAWN Garcia) Schizophrenia CKD (chronic kidney disease) Hyperlipidemia Type 2 diabetes mellitus Hypothyroidism HTN (hypertension) GERD (gastroesophageal reflux disease) Mood disorder Social History (Updated 03/11/24 @ 11:53 by Starla oCrdero DO) Household Members: None Household Members Other:: Lives at [facility] Housing: Assisted Living Facility Do you presently have visiting nurse or other home services: Yes Alcohol intake: current Comment: on 5 min checks Patient Tobacco Use Status: Former Tobacco user Tobacco use type: Cigarette Cigarette Packs Per Day: 3 Cigarettes Per Day: 60.0 Years Smoked: 16 Smoked in Last 30 Days: No Patient Interested in Nicotine Replacement: No Second Hand Smoke Exposure: No Use of substances other than those prescribed or required for medical reasons: No Currently Displaying Signs/Symptoms of Drug Intoxication Withdrawal: No Have you been hit, kicked, punched, or otherwise hurt by someone within the past year? If so, by whom?: No Do you feel safe in your current relationship?: No Current Relationship Is there a partner from a previous relationship who is making you feel unsafe now?: No Are you made to feel afraid or neglected: Yes (Pt reports she is afraid of the person writing the book about her.) Advance Directives: No Advance Directives Information Provided: Yes Do you have thoughts of harming others: None Do you have a plan to hurt others: No Plan Recently lost weight without trying: Unsure Nutrition Risks: No Nutritional Risk Patient : No : No Poor oral hygiene: No service: No Sexual orientation: Straight/Heterosexual Meds Allergies Allergy/AdvReac Type Severity Reaction Status Date / Time trifluoperazine Allergy Unknown Verified 03/11/24 14:16 [From Stelazine] Active Medications: Current Medications Acetaminophen (Acetaminophen 325 Mg Tablet) 650 mg PO Q6H PRN PRN Reason: Headache/Pain Mild Scale (1-3) Al Hydroxide/Mg Hydroxide (Magnesium Hydrox/Alum Hydrox 30 Ml Oral.Susp) 30 ml PO Q6H PRN PRN Reason: Heartburn/Nausea Clozapine (Clozapine 100 Mg Tablet) 100 mg PO DAILY [facility] Last Admin: 03/19/24 09:37 Dose: Not Given Clozapine (Clozapine 100 Mg Tablet) 300 mg PO BEDTIME [facility] Last Admin: 03/18/24 20:34 Dose: 300 mg Clozapine (Clozapine 25 Mg Tablet) 50 mg PO DAILY@1230 [facility] Last Admin: 03/19/24 11:51 Dose: 50 mg Famotidine (Famotidine 20 Mg Tablet) 20 mg PO DAILY [facility] Last Admin: 03/19/24 09:37 Dose: Not Given Hydroxyzine HCl (Hydroxyzine Hcl 25 Mg Tablet) 25 mg PO Q6H PRN PRN Reason: Anxiety Last Admin: 03/17/24 21:05 Dose: 25 mg Lamotrigine (Lamotrigine 25 Mg Tablet) 50 mg PO BID [facility] Last Admin: 03/19/24 09:37 Dose: Not Given Levothyroxine Sodium (Levothyroxine Sodium 75 Mcg Tablet) 75 mcg PO DAILY@0600 [facility] Last Admin: 03/19/24 06:13 Dose: Not Given Lorazepam (Lorazepam 1 Mg Tablet) 2 mg PO DAILY PRN PRN Reason: severe anxiety/agitation Last Admin: 03/19/24 03:25 Dose: 2 mg Magnesium Hydroxide (Milk Of Magnesia 30 Ml Oral.Susp) 30 ml PO BID PRN PRN Reason: Constipation Last Admin: 03/14/24 11:16 Dose: 30 ml Nicotine Polacrilex (Nicotine Polacrilex 2 Mg Gum) 2 mg BUCCAL Q2H PRN PRN Reason: Nicotine Cravings Polyethylene Glycol (Polyethylene Glycol 3350 17 Gm Powd.Pack) 17 gm PO DAILY PRN PRN Reason: Constipation Risperidone (Risperidone 3 Mg Tablet) 6 mg PO BID [facility] Last Admin: 03/19/24 09:37 Dose: Not Given Senna (Sennosides 8.6 Mg Tablet) 8.6 mg PO DAILY PRN PRN Reason: Constipation Last Admin: 03/11/24 20:25 Dose: 8.6 mg Trazodone HCl (Trazodone Hcl 50 Mg Tablet) 50 mg PO BEDTIME MRX1 PRN PRN Reason: Insomnia Last Admin: 03/18/24 20:35 Dose: 50 mg Home Medications ?Medication ?Instructions ?Recorded ?Confirmed ?Last Taken ?Type clozapine 100 mg tablet 100 mg PO DAILY 03/11/24 03/11/24 03/11/24 History clozapine 100 mg tablet 300 mg PO BEDTIME 03/11/24 03/11/24 03/10/24 History famotidine 20 mg tablet 20 mg PO DAILY 03/11/24 03/11/24 03/11/24 History lamotrigine 25 mg tablet 50 mg PO BID 03/11/24 03/11/24 03/11/24 History levothyroxine 75 mcg tablet 75 mcg PO DAILY 03/11/24 03/11/24 03/11/24 History risperidone 2 mg tablet 6 mg PO BID 03/11/24 03/11/24 03/11/24 History sennosides 8.6 mg tablet (senna) 8.6 mg PO DAILY PRN Constipation 03/11/24 03/11/24 Unknown History Physical Exam 2 Vital Signs and Narrative: Vital Signs: Last Vital Signs Temp 97.9 F 03/19/24 08:00 Pulse 77 03/19/24 08:00 Resp 14 03/19/24 08:00 BP 145/89 H 03/19/24 08:00 Pulse Ox 99 03/19/24 08:00 O2 Del Method Room Air 03/19/24 08:00 BMI result Body Mass Index 27.4 General: AOx3, no acute distress Resp: CTA bilaterally CVS: S1, S2, RRR GI: +BS, NT, no distention Skin: Warm, dry Neuro: Cranial nerves II-XII grossly intact bilaterally. Motor grossly intact bilaterally, though pt globally weak. Extremities: No edema Psych: Flat affect Results Labs 03/11/24 11:07 03/13/24 08:18 Imaging Radiologist's Impressions: Impressions Head CT 03/18/24 09:42 IMPRESSION: 1. No evidence of acute intracranial hemorrhage or edematous territorial infarction. 2. Mild to moderate underlying microangiopathy. 3. Arachnoid cyst in the right middle cranial fossa. Electronically signed by: Mino Arriaga DO 03/18/2024 06:26 PM EST RP Head CT 03/19/24 01:36 IMPRESSION: 1. Left frontal scalp soft tissue swelling. 2. No acute intracranial process seen. 3. Stable right middle cranial fossa arachnoid cyst. Electronically signed by: Andreas Olsen MD 03/19/2024 02:08 AM EST RP Assessment and Plan (1) Pre-op evaluation: Status: Acute Plan Patient is a 73-year-old female with a PMH significant for HTN, post op VTE 2 years ago, hypothyroidism, and mood disorder who was admitted to [facility] after eloping from [facility] and walking into traffic on purpose. Patient apparently believes a friend is writing a horrible story about and does not want to live after everyone reads the book as she believes everyone will hate her. Hospitalist consult for ECT risk stratification. ECT risk stratification Previously underwent ECT without complications in 1998 Currently no significant medical complaints or PMH EKG from 7 days prior at time of admission negative for ischemia RCRI 0 points, class I risk Will repeat EKG before completing risk stratification Will continue to follow pending EKG.
[2024-03-19 20:00] VITALS: BP 164/85; PULSE 80; RESP 16; TEMP 36; O2SAT 97
[2024-03-19] MEDS: cloZAPine 100 MG TABLET 300 MG PO (20:30)
[2024-03-19] MEDS: lamoTRIgine 25 MG TABLET 50 MG PO (20:30)
[2024-03-19] MEDS: risperiDONE 3 MG TABLET 6 MG PO (20:31)
--- NOTE | 2024-03-19 21:45 | P.PNPSI_ITS ---
Subjective Subjective Date of Service: 03/19/24 Reason For Visit: Psychosis Subjective Notes: Conditional Voluntary Interim History: Patient on one-to-one with intrusive auditory hallucinations feels like God wants her to . Patient mostly in her room had [address] negative Mental Status Exam Mental Status Exam Patient Appearance: Well Grooomed and Appropriate Patient Orientation: Person, Place and Situation Level of Consciousness: Awake and Appropriate Patient Behavior: Guarded and Passive Mood Description: Calm Affect Description: Depressed and Blunted Patient Cognition Impaired: Yes Ability to Follow Directions: Good Speech Pattern: Clear Hallucinations: Auditory Delusions: Paranoid Ideation Thought Process: Distracted and Slowed Thinking Thought Content: positive for [place] and positive for Poverty of Content Judgement: Poor Diagnostics Vital Signs (24Hr): Vital Signs - 24 hr 03/19/24 02:35 03/19/24 08:00 Temperature 96.1 F L 97.9 F Pulse Rate 90 77 Respiratory Rate 18 14 Blood Pressure 127/79 145/89 H Pulse Oximetry 98 99 Oxygen Delivery Method Room Air BMI result Body Mass Index 31.3 Labs 03/11/24 11:07 03/13/24 08:18 Labs: Laboratory Results - last 48 hr 03/18/24 07:57 Absolute Neuts (auto) 4.2 Imaging Radiology Impressions: ITS Impressions Head CT 03/18/24 09:42 IMPRESSION: 1. No evidence of acute intracranial hemorrhage or edematous territorial infarction. 2. Mild to moderate underlying microangiopathy. 3. Arachnoid cyst in the right middle cranial fossa. Electronically signed by: Mino Arriaga DO 03/18/2024 06:26 PM EST RP Head CT 03/19/24 01:36 IMPRESSION: 1. Left frontal scalp soft tissue swelling. 2. No acute intracranial process seen. 3. Stable right middle cranial fossa arachnoid cyst. Electronically signed by: Andreas Olsen MD 03/19/2024 02:08 AM EST RP Medications Medications Current Medications Acetaminophen (Acetaminophen 325 Mg Tablet) 650 mg PO Q6H PRN PRN Reason: Headache/Pain Mild Scale (1-3) Al Hydroxide/Mg Hydroxide (Magnesium Hydrox/Alum Hydrox 30 Ml Oral.Susp) 30 ml PO Q6H PRN PRN Reason: Heartburn/Nausea Clozapine (Clozapine 100 Mg Tablet) 100 mg PO DAILY [facility] Last Admin: 03/19/24 09:37 Dose: Not Given Clozapine (Clozapine 100 Mg Tablet) 300 mg PO BEDTIME [facility] Last Admin: 03/19/24 20:30 Dose: 300 mg Clozapine (Clozapine 25 Mg Tablet) 50 mg PO DAILY@1230 [facility] Last Admin: 03/19/24 11:51 Dose: 50 mg Famotidine (Famotidine 20 Mg Tablet) 20 mg PO DAILY [facility] Last Admin: 03/19/24 09:37 Dose: Not Given Hydroxyzine HCl (Hydroxyzine Hcl 25 Mg Tablet) 25 mg PO Q6H PRN PRN Reason: Anxiety Last Admin: 03/17/24 21:05 Dose: 25 mg Lamotrigine (Lamotrigine 25 Mg Tablet) 50 mg PO BID [facility] Last Admin: 03/19/24 20:30 Dose: 50 mg Levothyroxine Sodium (Levothyroxine Sodium 75 Mcg Tablet) 75 mcg PO DAILY@0600 [facility] Last Admin: 03/19/24 06:13 Dose: Not Given Lorazepam (Lorazepam 1 Mg Tablet) 2 mg PO DAILY PRN PRN Reason: severe anxiety/agitation Last Admin: 03/19/24 03:25 Dose: 2 mg Magnesium Hydroxide (Milk Of Magnesia 30 Ml Oral.Susp) 30 ml PO BID PRN PRN Reason: Constipation Last Admin: 03/14/24 11:16 Dose: 30 ml Nicotine Polacrilex (Nicotine Polacrilex 2 Mg Gum) 2 mg BUCCAL Q2H PRN PRN Reason: Nicotine Cravings Polyethylene Glycol (Polyethylene Glycol 3350 17 Gm Powd.Pack) 17 gm PO DAILY PRN PRN Reason: Constipation Risperidone (Risperidone 3 Mg Tablet) 6 mg PO BID [facility] Last Admin: 03/19/24 20:31 Dose: 6 mg Senna (Sennosides 8.6 Mg Tablet) 8.6 mg PO DAILY PRN PRN Reason: Constipation Last Admin: 03/11/24 20:25 Dose: 8.6 mg Trazodone HCl (Trazodone Hcl 50 Mg Tablet) 50 mg PO BEDTIME MRX1 PRN PRN Reason: Insomnia Last Admin: 03/18/24 20:35 Dose: 50 mg Allergies Allergies Allergy/AdvReac Type Severity Reaction Status Date / Time trifluoperazine Allergy Unknown Verified 03/11/24 14:16 [From Stelazine] Assessment & Plan Assessment & Plan (1) Pre-op evaluation: Status: Acute Code(s): Z01.818 - Encounter for other preprocedural examination Plan Patient is a 73-year-old female with a PMH significant for HTN, post op VTE 2 years ago, hypothyroidism, and mood disorder who was admitted to [facility] after eloping from [facility] and walking into traffic on purpose. Patient apparently believes a friend is writing a horrible story about and does not want to live after everyone reads the book as she believes everyone will hate her. Hospitalist consult for ECT risk stratification. ECT risk stratification Previously underwent ECT without complications in 1998 Currently no significant medical complaints or PMH EKG from 7 days prior at time of admission negative for ischemia RCRI 0 points, class I risk Will repeat EKG before completing risk stratification Will continue to follow pending EKG. 03/19/2024 Discuss with patient possibility of ECT patient states she herself does not necessarily want to but feels that she should had similar episode in 1998 was treated with ECT with good effect. Hospitalist consult for medical evaluation for ECT Reason for continued inpatient stay Substantial Risk for: harm to self Time Spent With Patient Time: Total time managing care of this patient today ____ minutes.
[2024-03-20] MEDS: Levothyroxine Sodium 75 MCG TABLET PO (06:29)
[2024-03-20 10:04] VITALS: BP 164/95; PULSE 80; RESP 16; TEMP 36.1; O2SAT 94
[2024-03-20] MEDS: cloZAPine 100 MG TABLET PO ×2 (10:05→13:03)
[2024-03-20] MEDS: lamoTRIgine 25 MG TABLET 50 MG PO ×2 (10:05→20:50)
[2024-03-20] MEDS: risperiDONE 3 MG TABLET 6 MG PO ×2 (10:05→20:50)
[2024-03-20] MEDS: Famotidine 20 MG TABLET PO (10:05)
--- NOTE | 2024-03-20 13:43 | HO.PSYCHPN ---
Subjective Subjective Date of Service: 03/20/24 Reason For Visit: Psychosis Subjective Notes: Conditional Voluntary Interim History: The nursing staff reported the patient slept 8 hours he had been flat with her affect took only breakfast last night. She remains grossly psychotic. The staff has noticed that she is responding to internal stimuli. On interview the patient denies new symptoms, we are increasing clozapine up to 100 mg p.o. at noon. Mental Status Exam Mental Status Exam Patient Appearance: Appropriate Patient Orientation: Person Level of Consciousness: Sedated and Inappropriate Patient Behavior: Guarded Mood Description: Withdrawn Affect Description: Blunted Patient Cognition Impaired: Yes Ability to Follow Directions: Good Speech Pattern: Clear Hallucinations: Auditory and Visual Delusions: Grandiose and Ideas of Reference Thought Process: Distracted and Slowed Thinking Thought Content: positive for [place] and positive for Poverty of Content Judgement: Poor Diagnostics Vital Signs (24Hr): Vital Signs - 24 hr 03/19/24 20:00 03/20/24 10:04 Temperature 96.8 F 97.0 F Pulse Rate 80 80 Respiratory Rate 16 16 Blood Pressure 164/85 H 164/95 H Pulse Oximetry 97 94 Oxygen Delivery Method Room Air Room Air BMI result Body Mass Index 31.3 Labs 03/11/24 11:07 03/13/24 08:18 Imaging Radiology Impressions: ITS Impressions Head CT 03/18/24 09:42 IMPRESSION: 1. No evidence of acute intracranial hemorrhage or edematous territorial infarction. 2. Mild to moderate underlying microangiopathy. 3. Arachnoid cyst in the right middle cranial fossa. Electronically signed by: Mino Arriaga DO 03/18/2024 06:26 PM EST RP Head CT 03/19/24 01:36 IMPRESSION: 1. Left frontal scalp soft tissue swelling. 2. No acute intracranial process seen. 3. Stable right middle cranial fossa arachnoid cyst. Electronically signed by: Andreas Olsen MD 03/19/2024 02:08 AM EST RP Medications Medications Current Medications Acetaminophen (Acetaminophen 325 Mg Tablet) 650 mg PO Q6H PRN PRN Reason: Headache/Pain Mild Scale (1-3) Al Hydroxide/Mg Hydroxide (Magnesium Hydrox/Alum Hydrox 30 Ml Oral.Susp) 30 ml PO Q6H PRN PRN Reason: Heartburn/Nausea Clozapine (Clozapine 100 Mg Tablet) 100 mg PO DAILY [facility] Last Admin: 03/20/24 10:05 Dose: 100 mg Clozapine (Clozapine 100 Mg Tablet) 300 mg PO BEDTIME [facility] Last Admin: 03/19/24 20:30 Dose: 300 mg Clozapine (Clozapine 100 Mg Tablet) 100 mg PO DAILY@1230 [facility] Last Admin: 03/20/24 13:03 Dose: 100 mg Famotidine (Famotidine 20 Mg Tablet) 20 mg PO DAILY [facility] Last Admin: 03/20/24 10:05 Dose: 20 mg Hydroxyzine HCl (Hydroxyzine Hcl 25 Mg Tablet) 25 mg PO Q6H PRN PRN Reason: Anxiety Last Admin: 03/17/24 21:05 Dose: 25 mg Lamotrigine (Lamotrigine 25 Mg Tablet) 50 mg PO BID [facility] Last Admin: 03/20/24 10:05 Dose: 50 mg Levothyroxine Sodium (Levothyroxine Sodium 75 Mcg Tablet) 75 mcg PO DAILY@0600 [facility] Last Admin: 03/20/24 06:29 Dose: 75 mcg Lorazepam (Lorazepam 1 Mg Tablet) 2 mg PO DAILY PRN PRN Reason: severe anxiety/agitation Last Admin: 03/19/24 03:25 Dose: 2 mg Magnesium Hydroxide (Milk Of Magnesia 30 Ml Oral.Susp) 30 ml PO BID PRN PRN Reason: Constipation Last Admin: 03/14/24 11:16 Dose: 30 ml Nicotine Polacrilex (Nicotine Polacrilex 2 Mg Gum) 2 mg BUCCAL Q2H PRN PRN Reason: Nicotine Cravings Polyethylene Glycol (Polyethylene Glycol 3350 17 Gm Powd.Pack) 17 gm PO DAILY PRN PRN Reason: Constipation Risperidone (Risperidone 3 Mg Tablet) 6 mg PO BID [facility] Last Admin: 03/20/24 10:05 Dose: 6 mg Senna (Sennosides 8.6 Mg Tablet) 8.6 mg PO DAILY PRN PRN Reason: Constipation Last Admin: 03/11/24 20:25 Dose: 8.6 mg Trazodone HCl (Trazodone Hcl 50 Mg Tablet) 50 mg PO BEDTIME MRX1 PRN PRN Reason: Insomnia Last Admin: 03/18/24 20:35 Dose: 50 mg Allergies Allergies Allergy/AdvReac Type Severity Reaction Status Date / Time trifluoperazine Allergy Unknown Verified 03/11/24 14:16 [From Stelazine] Assessment & Plan Assessment & Plan (1) Pre-op evaluation: Status: Acute Code(s): Z01.818 - Encounter for other preprocedural examination Plan Patient is a 73-year-old female with a PMH significant for HTN, post op VTE 2 years ago, hypothyroidism, and mood disorder who was admitted to [facility] after eloping from [facility] and walking into traffic on purpose. Patient apparently believes a friend is writing a horrible story about and does not want to live after everyone reads the book as she believes everyone will hate her. Hospitalist consult for ECT risk stratification. ECT risk stratification Previously underwent ECT without complications in 1998 Currently no significant medical complaints or PMH EKG from 7 days prior at time of admission negative for ischemia RCRI 0 points, class I risk Will repeat EKG before completing risk stratification Plan 1. We will try to gather collateral information we are going to try to contact Dr. Sanchez. 2. Continue with clozapine, we are titrating up slowly to target psychosis. 3. We will consider ECT, will discuss with the family Reason for continued inpatient stay Substantial Risk for: inability to function, rapid decompensation and med/psych decompensation Time Spent With Patient Time: Total time managing care of this patient today _20___ minutes.
[2024-03-20 20:00] VITALS: BP 139/80; PULSE 97; TEMP 36.1; O2SAT 98
[2024-03-20] MEDS: traZODone HCL 50 MG TABLET PO (20:50)
[2024-03-20] MEDS: hydrOXYzine HCL 25 MG TABLET PO (20:50)
[2024-03-20] MEDS: cloZAPine 100 MG TABLET 300 MG PO (20:50)
--- NOTE | 2024-03-20 21:12 | ECG_ITS ---
Test Reason : CP Blood Pressure : / mmHG Vent. Rate : 092 BPM Atrial Rate : 092 BPM P-R Int : 138 ms QRS Dur : 102 ms QT Int : 306 ms P-R-T Axes : 064 053 049 degrees QTc Int : 378 ms Normal sinus rhythm Nonspecific T wave abnormality Abnormal ECG When compared with ECG of 19-MAR-2024 17:34, No significant changes seen Referred By: Aemlia Gordon Electronically Signed By:GENIA CASILLAS
[2024-03-21] MEDS: Levothyroxine Sodium 75 MCG TABLET PO (06:28)
[2024-03-21 08:00] VITALS: BP 123/70; PULSE 90; RESP 14; TEMP 36.6; O2SAT 99
[2024-03-21] MEDS: risperiDONE 3 MG TABLET 6 MG PO ×2 (08:37→21:11)
[2024-03-21] MEDS: cloZAPine 100 MG TABLET PO ×2 (08:38→11:34)
[2024-03-21] MEDS: Famotidine 20 MG TABLET PO (08:38)
[2024-03-21] MEDS: lamoTRIgine 25 MG TABLET 50 MG PO ×2 (08:38→21:10)
[2024-03-21 20:00] VITALS: BP 145/82; PULSE 88; TEMP 36.7; O2SAT 98
[2024-03-21] MEDS: traZODone HCL 50 MG TABLET PO (21:10)
[2024-03-21] MEDS: hydrOXYzine HCL 25 MG TABLET PO (21:11)
[2024-03-21] MEDS: cloZAPine 100 MG TABLET 300 MG PO (21:11)
--- NOTE | 2024-03-21 21:50 | HO.PSYCHPN ---
Subjective Subjective Date of Service: 03/21/24 Reason For Visit: Psychosis Subjective Notes: Conditional Voluntary Interim History: Pt remains psychotic, on 1.1 for safety remains daughter called asking about ect consideration Mental Status Exam Mental Status Exam Patient Appearance: Appropriate Patient Orientation: Person Level of Consciousness: Awake and Sedated Patient Behavior: Appropriate Mood Description: Withdrawn Affect Description: Blunted Patient Cognition Impaired: Yes Ability to Follow Directions: Good Speech Pattern: Clear Hallucinations: Auditory and Visual Delusions: Grandiose and Ideas of Reference Thought Process: Distracted and Slowed Thinking Thought Content: positive for [place] and positive for Poverty of Content Depressive Symptoms: Thoughts of /Suicide Judgement: Poor Diagnostics Vital Signs (24Hr): Vital Signs - 24 hr 03/21/24 08:00 03/21/24 20:00 Temperature 97.8 F 98.1 F Pulse Rate 90 88 Respiratory Rate 14 Blood Pressure 123/70 145/82 H Pulse Oximetry 99 98 Oxygen Delivery Method Room Air Room Air BMI result Body Mass Index 31.3 Labs 03/11/24 11:07 03/13/24 08:18 Imaging Radiology Impressions: ITS Impressions Head CT 03/18/24 09:42 IMPRESSION: 1. No evidence of acute intracranial hemorrhage or edematous territorial infarction. 2. Mild to moderate underlying microangiopathy. 3. Arachnoid cyst in the right middle cranial fossa. Electronically signed by: Mino Arriaga DO 03/18/2024 06:26 PM EST RP Head CT 03/19/24 01:36 IMPRESSION: 1. Left frontal scalp soft tissue swelling. 2. No acute intracranial process seen. 3. Stable right middle cranial fossa arachnoid cyst. Electronically signed by: Andreas Olsen MD 03/19/2024 02:08 AM EST RP Medications Medications Current Medications Acetaminophen (Acetaminophen 325 Mg Tablet) 650 mg PO Q6H PRN PRN Reason: Headache/Pain Mild Scale (1-3) Al Hydroxide/Mg Hydroxide (Magnesium Hydrox/Alum Hydrox 30 Ml Oral.Susp) 30 ml PO Q6H PRN PRN Reason: Heartburn/Nausea Clozapine (Clozapine 100 Mg Tablet) 100 mg PO DAILY [facility] Last Admin: 03/21/24 08:38 Dose: 100 mg Clozapine (Clozapine 100 Mg Tablet) 300 mg PO BEDTIME [facility] Last Admin: 03/21/24 21:11 Dose: 300 mg Clozapine (Clozapine 100 Mg Tablet) 100 mg PO DAILY@1230 [facility] Last Admin: 03/21/24 11:34 Dose: 100 mg Famotidine (Famotidine 20 Mg Tablet) 20 mg PO DAILY [facility] Last Admin: 03/21/24 08:38 Dose: 20 mg Hydroxyzine HCl (Hydroxyzine Hcl 25 Mg Tablet) 25 mg PO Q6H PRN PRN Reason: Anxiety Last Admin: 03/21/24 21:11 Dose: 25 mg Lamotrigine (Lamotrigine 25 Mg Tablet) 50 mg PO BID [facility] Last Admin: 03/21/24 21:10 Dose: 50 mg Levothyroxine Sodium (Levothyroxine Sodium 75 Mcg Tablet) 75 mcg PO DAILY@0600 [facility] Last Admin: 03/21/24 06:28 Dose: 75 mcg Lorazepam (Lorazepam 1 Mg Tablet) 2 mg PO DAILY PRN PRN Reason: severe anxiety/agitation Last Admin: 03/19/24 03:25 Dose: 2 mg Magnesium Hydroxide (Milk Of Magnesia 30 Ml Oral.Susp) 30 ml PO BID PRN PRN Reason: Constipation Last Admin: 03/14/24 11:16 Dose: 30 ml Nicotine Polacrilex (Nicotine Polacrilex 2 Mg Gum) 2 mg BUCCAL Q2H PRN PRN Reason: Nicotine Cravings Polyethylene Glycol (Polyethylene Glycol 3350 17 Gm Powd.Pack) 17 gm PO DAILY PRN PRN Reason: Constipation Risperidone (Risperidone 3 Mg Tablet) 6 mg PO BID [facility] Last Admin: 03/21/24 21:11 Dose: 6 mg Senna (Sennosides 8.6 Mg Tablet) 8.6 mg PO DAILY PRN PRN Reason: Constipation Last Admin: 03/11/24 20:25 Dose: 8.6 mg Trazodone HCl (Trazodone Hcl 50 Mg Tablet) 50 mg PO BEDTIME MRX1 PRN PRN Reason: Insomnia Last Admin: 03/21/24 21:10 Dose: 50 mg Allergies Allergies Allergy/AdvReac Type Severity Reaction Status Date / Time trifluoperazine Allergy Unknown Verified 03/11/24 14:16 [From Stelazine] Assessment & Plan Assessment & Plan (1) Pre-op evaluation: Status: Acute Code(s): Z01.818 - Encounter for other preprocedural examination Plan Patient is a 73-year-old female with a PMH significant for HTN, post op VTE 2 years ago, hypothyroidism, and mood disorder who was admitted to [facility] after eloping from [facility] and walking into traffic on purpose. Patient apparently believes a friend is writing a horrible story about and does not want to live after everyone reads the book as she believes everyone will hate her. Hospitalist consult for ECT risk stratification. ECT risk stratification Previously underwent ECT without complications in 1998 Currently no significant medical complaints or PMH EKG from 7 days prior at time of admission negative for ischemia RCRI 0 points, class I risk Will repeat EKG before completing risk stratification Plan 1. We will try to gather collateral information we are going to try to contact Dr. Sanchez. 2. Continue with clozapine, we are titrating up slowly to target psychosis. 3. We will consider ECT, will discuss with the family 03/21/24 Pt on risp clozapine continue appears to have mood dx and psychosis would consider ect Reason for continued inpatient stay Substantial Risk for: harm to self and inability to function Time Spent With Patient Time: Total time managing care of this patient today ____ minutes.
[2024-03-22] MEDS: Levothyroxine Sodium 75 MCG TABLET PO (06:45)
[2024-03-22 09:24] VITALS: BP 118/67; PULSE 74; RESP 16; TEMP 36.6; O2SAT 97
[2024-03-22] MEDS: risperiDONE 3 MG TABLET 6 MG PO ×2 (09:27→20:34)
[2024-03-22] MEDS: Famotidine 20 MG TABLET PO (09:28)
[2024-03-22] MEDS: lamoTRIgine 25 MG TABLET 50 MG PO ×2 (09:28→20:34)
[2024-03-22] MEDS: cloZAPine 100 MG TABLET PO ×2 (09:28→13:34)
[2024-03-22 20:00] VITALS: BP 113/72; PULSE 90; RESP 16; TEMP 36.8; O2SAT 98
[2024-03-22] MEDS: traZODone HCL 50 MG TABLET PO (20:34)
[2024-03-22] MEDS: cloZAPine 100 MG TABLET 300 MG PO (20:34)
[2024-03-22] MEDS: hydrOXYzine HCL 25 MG TABLET PO (20:35)
--- NOTE | 2024-03-22 22:37 | HO.PSYCHPN ---
Subjective Subjective Date of Service: 03/22/24 Reason For Visit: Psychosis Subjective Notes: Conditional Voluntary Interim History: Patient was able to come off one-to-one. Gait improved no active self-harming behavior denies current hallucinations were command to harm herself. Denies any active thoughts of suicide taken off one-to-one Medication Compliance: Yes Mental Status Exam Mental Status Exam Patient Appearance: Appropriate Patient Orientation: Person Level of Consciousness: Awake Patient Behavior: Appropriate Behavior Comments: Patient calm and cooperative often in her room Mood Description: Withdrawn, Depressed (improved) and Blunted Affect Description: Blunted Patient Cognition Impaired: Yes Ability to Follow Directions: Good Speech Pattern: Clear Hallucinations: Auditory and Visual Delusions: Grandiose and Ideas of Reference Thought Process: Distracted and Slowed Thinking Thought Content: positive for [place] and positive for Poverty of Content Depressive Symptoms: Thoughts of /Suicide Judgement: Poor Diagnostics Vital Signs (24Hr): Vital Signs - 24 hr 03/22/24 09:24 03/22/24 20:00 Temperature 97.9 F 98.2 F Pulse Rate 74 90 Respiratory Rate 16 16 Blood Pressure 118/67 113/72 Pulse Oximetry 97 98 Oxygen Delivery Method Room Air BMI result Body Mass Index 31.3 Labs 03/11/24 11:07 03/13/24 08:18 Imaging Radiology Impressions: ITS Impressions Head CT 03/18/24 09:42 IMPRESSION: 1. No evidence of acute intracranial hemorrhage or edematous territorial infarction. 2. Mild to moderate underlying microangiopathy. 3. Arachnoid cyst in the right middle cranial fossa. Electronically signed by: Mino Arriaga DO 03/18/2024 06:26 PM EST RP Head CT 03/19/24 01:36 IMPRESSION: 1. Left frontal scalp soft tissue swelling. 2. No acute intracranial process seen. 3. Stable right middle cranial fossa arachnoid cyst. Electronically signed by: Andreas Olsen MD 03/19/2024 02:08 AM EST RP Medications Medications Current Medications Acetaminophen (Acetaminophen 325 Mg Tablet) 650 mg PO Q6H PRN PRN Reason: Headache/Pain Mild Scale (1-3) Al Hydroxide/Mg Hydroxide (Magnesium Hydrox/Alum Hydrox 30 Ml Oral.Susp) 30 ml PO Q6H PRN PRN Reason: Heartburn/Nausea Clozapine (Clozapine 100 Mg Tablet) 100 mg PO DAILY REPLACED BY [facility] Last Admin: 03/22/24 09:28 Dose: 100 mg Clozapine (Clozapine 100 Mg Tablet) 300 mg PO BEDTIME REPLACED BY [facility] Last Admin: 03/22/24 20:34 Dose: 300 mg Clozapine (Clozapine 100 Mg Tablet) 100 mg PO DAILY@1230 [facility] Last Admin: 03/22/24 13:34 Dose: 100 mg Famotidine (Famotidine 20 Mg Tablet) 20 mg PO DAILY [facility] Last Admin: 03/22/24 09:28 Dose: 20 mg Hydroxyzine HCl (Hydroxyzine Hcl 25 Mg Tablet) 25 mg PO Q6H PRN PRN Reason: Anxiety Last Admin: 03/22/24 20:35 Dose: 25 mg Lamotrigine (Lamotrigine 25 Mg Tablet) 50 mg PO BID [facility]PL[facility] Last Admin: 03/22/24 20:34 Dose: 50 mg Levothyroxine Sodium (Levothyroxine Sodium 75 Mcg Tablet) 75 mcg PO DAILY@0600 [facility]PLACED [facility] Last Admin: 03/22/24 06:45 Dose: 75 mcg Lorazepam (Lorazepam 1 Mg Tablet) 2 mg PO DAILY PRN PRN Reason: severe anxiety/agitation Last Admin: 03/19/24 03:25 Dose: 2 mg Magnesium Hydroxide (Milk Of Magnesia 30 Ml Oral.Susp) 30 ml PO BID PRN PRN Reason: Constipation Last Admin: 03/14/24 11:16 Dose: 30 ml Nicotine Polacrilex (Nicotine Polacrilex 2 Mg Gum) 2 mg BUCCAL Q2H PRN PRN Reason: Nicotine Cravings Polyethylene Glycol (Polyethylene Glycol 3350 17 Gm Powd.Pack) 17 gm PO DAILY PRN PRN Reason: Constipation Risperidone (Risperidone 3 Mg Tablet) 6 mg PO BID REPLACED BY [facility] Last Admin: 03/22/24 20:34 Dose: 6 mg Senna (Sennosides 8.6 Mg Tablet) 8.6 mg PO DAILY PRN PRN Reason: Constipation Last Admin: 03/11/24 20:25 Dose: 8.6 mg Trazodone HCl (Trazodone Hcl 50 Mg Tablet) 50 mg PO BEDTIME MRX1 PRN PRN Reason: Insomnia Last Admin: 03/22/24 20:34 Dose: 50 mg Allergies Allergies Allergy/AdvReac Type Severity Reaction Status Date / Time trifluoperazine Allergy Unknown Verified 03/11/24 14:16 [From Stelazine] Assessment & Plan Assessment & Plan (1) Pre-op evaluation: Status: Acute Code(s): Z01.818 - Encounter for other preprocedural examination Plan Patient is a 73-year-old female with a PMH significant for HTN, post op VTE 2 years ago, hypothyroidism, and mood disorder who was admitted to [facility] after eloping from [facility] and walking into traffic on purpose. Patient apparently believes a friend is writing a horrible story about and does not want to live after everyone reads the book as she believes everyone will hate her. Hospitalist consult for ECT risk stratification. ECT risk stratification Previously underwent ECT without complications in 1998 Currently no significant medical complaints or PMH EKG from 7 days prior at time of admission negative for ischemia RCRI 0 points, class I risk Will repeat EKG before completing risk stratification Plan 1. We will try to gather collateral information we are going to try to contact Dr. Sanchez. 2. Continue with clozapine, we are titrating up slowly to target psychosis. 3. We will consider ECT, will discuss with the family 03/21/24 Pt on risp clozapine continue appears to have mood dx and psychosis would consider ect 03/22/2024 Patient does seem improved less psychotic preoccupation denies intrusive thoughts to kill herself change to 5 minute checks does not seem gait impaired Patient educated on: diagnosis, medication risk/benefits and ECT Informed Consent: understands and further education needed Reason for continued inpatient stay Substantial Risk for: harm to self Time Spent With Patient Time: Total time managing care of this patient today ____ minutes.
[2024-03-23] MEDS: Levothyroxine Sodium 75 MCG TABLET PO (05:51)
[2024-03-23 08:30] VITALS: BP 111/69; PULSE 85; RESP 18; TEMP 36.9; O2SAT 97
[2024-03-23] MEDS: risperiDONE 3 MG TABLET 6 MG PO ×2 (08:34→21:06)
[2024-03-23] MEDS: Famotidine 20 MG TABLET PO (08:35)
[2024-03-23] MEDS: cloZAPine 100 MG TABLET PO ×2 (08:35→12:02)
[2024-03-23] MEDS: lamoTRIgine 25 MG TABLET 50 MG PO ×2 (08:35→21:06)
--- NOTE | 2024-03-23 10:13 | P.PNPSI_ITS ---
Subjective Subjective Date of Service: 03/23/24 Reason For Visit: Psychosis Subjective Notes: Conditional Voluntary Interim History: The nursing staff reported patient has been isolative pleasant medication compliant she has refused milk of magnesia for constipation. She slept 8 hours. The social sciences professor reported that we are going to contact her daughter apparently she did well with ECT. We will discuss these options today with the patient. On interview the patient refused to have ECT she states that her voices are still there but she does not feel distressed. Mental Status Exam Mental Status Exam Patient Appearance: Appropriate Patient Orientation: Person and Situation Level of Consciousness: Awake and Appropriate Patient Behavior: Guarded and Passive Mood Description: Withdrawn Affect Description: Constricted Patient Cognition Impaired: Yes Ability to Follow Directions: Good Speech Pattern: Clear Hallucinations: None Delusions: Not Present Thought Process: Distracted and Slowed Thinking Thought Content: positive for [place] and positive for Poverty of Content Judgement: Fair Diagnostics Vital Signs (24Hr): Vital Signs - 24 hr 03/22/24 20:00 03/23/24 08:30 Temperature 98.2 F 98.4 F Pulse Rate 90 85 Respiratory Rate 16 18 Blood Pressure 113/72 111/69 Pulse Oximetry 98 97 Oxygen Delivery Method Room Air Room Air BMI result Body Mass Index 31.3 Labs 03/11/24 11:07 03/13/24 08:18 Imaging Radiology Impressions: ITS Impressions Head CT 03/18/24 09:42 IMPRESSION: 1. No evidence of acute intracranial hemorrhage or edematous territorial infarction. 2. Mild to moderate underlying microangiopathy. 3. Arachnoid cyst in the right middle cranial fossa. Electronically signed by: Mino Arriaga DO 03/18/2024 06:26 PM EST RP Head CT 03/19/24 01:36 IMPRESSION: 1. Left frontal scalp soft tissue swelling. 2. No acute intracranial process seen. 3. Stable right middle cranial fossa arachnoid cyst. Electronically signed by: Andreas Olsen MD 03/19/2024 02:08 AM EST RP Medications Medications Current Medications Acetaminophen (Acetaminophen 325 Mg Tablet) 650 mg PO Q6H PRN PRN Reason: Headache/Pain Mild Scale (1-3) Al Hydroxide/Mg Hydroxide (Magnesium Hydrox/Alum Hydrox 30 Ml Oral.Susp) 30 ml PO Q6H PRN PRN Reason: Heartburn/Nausea Clozapine (Clozapine 100 Mg Tablet) 100 mg PO DAILY [facility] Last Admin: 03/23/24 08:35 Dose: 100 mg Clozapine (Clozapine 100 Mg Tablet) 300 mg PO BEDTIME [facility] Last Admin: 03/22/24 20:34 Dose: 300 mg Clozapine (Clozapine 100 Mg Tablet) 100 mg PO DAILY@1230 [facility] Last Admin: 03/22/24 13:34 Dose: 100 mg Famotidine (Famotidine 20 Mg Tablet) 20 mg PO DAILY [facility] Last Admin: 03/23/24 08:35 Dose: 20 mg Hydroxyzine HCl (Hydroxyzine Hcl 25 Mg Tablet) 25 mg PO Q6H PRN PRN Reason: Anxiety Last Admin: 03/22/24 20:35 Dose: 25 mg Lamotrigine (Lamotrigine 25 Mg Tablet) 50 mg PO BID [facility] Last Admin: 03/23/24 08:35 Dose: 50 mg Levothyroxine Sodium (Levothyroxine Sodium 75 Mcg Tablet) 75 mcg PO DAILY@0600 [facility] Last Admin: 03/23/24 05:51 Dose: 75 mcg Lorazepam (Lorazepam 1 Mg Tablet) 2 mg PO DAILY PRN PRN Reason: severe anxiety/agitation Last Admin: 03/19/24 03:25 Dose: 2 mg Magnesium Hydroxide (Milk Of Magnesia 30 Ml Oral.Susp) 30 ml PO BID PRN PRN Reason: Constipation Last Admin: 03/14/24 11:16 Dose: 30 ml Nicotine Polacrilex (Nicotine Polacrilex 2 Mg Gum) 2 mg BUCCAL Q2H PRN PRN Reason: Nicotine Cravings Polyethylene Glycol (Polyethylene Glycol 3350 17 Gm Powd.Pack) 17 gm PO DAILY PRN PRN Reason: Constipation Risperidone (Risperidone 3 Mg Tablet) 6 mg PO BID [facility] Last Admin: 03/23/24 08:34 Dose: 6 mg Senna (Sennosides 8.6 Mg Tablet) 8.6 mg PO DAILY PRN PRN Reason: Constipation Last Admin: 03/11/24 20:25 Dose: 8.6 mg Trazodone HCl (Trazodone Hcl 50 Mg Tablet) 50 mg PO BEDTIME MRX1 PRN PRN Reason: Insomnia Last Admin: 03/22/24 20:34 Dose: 50 mg Allergies Allergies Allergy/AdvReac Type Severity Reaction Status Date / Time trifluoperazine Allergy Unknown Verified 03/11/24 14:16 [From Stelazine] Assessment & Plan Assessment & Plan (1) Pre-op evaluation: Status: Acute Code(s): Z01.818 - Encounter for other preprocedural examination Plan Patient is a 73-year-old female with a PMH significant for HTN, post op VTE 2 years ago, hypothyroidism, and mood disorder who was admitted to [facility] after eloping from [facility] and walking into traffic on purpose. Patient apparently believes a friend is writing a horrible story about and does not want to live after everyone reads the book as she believes everyone will hate her. Hospitalist consult for ECT risk stratification. ECT risk stratification Previously underwent ECT without complications in 1998 Currently no significant medical complaints or PMH EKG from 7 days prior at time of admission negative for ischemia RCRI 0 points, class I risk Will repeat EKG before completing risk stratification Plan 1. We will try to gather collateral information we are going to try to contact Dr. Sanchez. 2. Continue with clozapine, we are titrating up slowly to target psychosis. 3. We will consider ECT, will discuss with the family, family meeting over the phone today. Reason for continued inpatient stay Substantial Risk for: inability to function, rapid decompensation and med/psych decompensation Time Spent With Patient Time: Total time managing care of this patient today __20__ minutes.
[2024-03-23 20:00] VITALS: BP 133/90; PULSE 91; RESP 18; TEMP 36.1; O2SAT 97
[2024-03-23] MEDS: traZODone HCL 50 MG TABLET PO (21:06)
[2024-03-23] MEDS: cloZAPine 100 MG TABLET 300 MG PO (21:06)
[2024-03-23] MEDS: hydrOXYzine HCL 25 MG TABLET PO (21:06)
[2024-03-24] MEDS: Levothyroxine Sodium 75 MCG TABLET PO (05:32)
[2024-03-24 09:07] VITALS: BP 126/86; PULSE 86; RESP 17; TEMP 36.6; O2SAT 98
[2024-03-24] MEDS: lamoTRIgine 25 MG TABLET 50 MG PO ×2 (09:08→20:36)
[2024-03-24] MEDS: risperiDONE 3 MG TABLET 6 MG PO ×2 (09:08→20:36)
[2024-03-24] MEDS: Famotidine 20 MG TABLET PO (09:09)
[2024-03-24] MEDS: cloZAPine 100 MG TABLET PO ×2 (09:09→12:08)
--- NOTE | 2024-03-24 16:35 | P.PNPSI_ITS ---
Subjective Subjective Date of Service: 03/24/24 Reason For Visit: Psychosis Subjective Notes: Conditional Voluntary Interim History: The nursing staff reported the patient has refusing medications, she had been superficial guarded withdrawn. On interview she refused to have ECT. I called her daughter Erlinda and she reported that in 1998 she did very well. At this point we explore other options and she agreed to do information of healthcare proxy. Mental Status Exam Mental Status Exam Patient Appearance: Appropriate Patient Orientation: Person and Situation Level of Consciousness: Awake and Appropriate Patient Behavior: Guarded and Passive Mood Description: Withdrawn Affect Description: Constricted Patient Cognition Impaired: Yes Ability to Follow Directions: Good Speech Pattern: Clear Hallucinations: Auditory and Visual Delusions: Paranoid Ideation and Ideas of Reference Thought Process: Distracted and Slowed Thinking Thought Content: positive for [place] and positive for Poverty of Content Judgement: Poor Diagnostics Vital Signs (24Hr): Vital Signs - 24 hr 03/23/24 20:00 03/24/24 09:07 Temperature 96.9 F 97.8 F Pulse Rate 91 86 Respiratory Rate 18 17 Blood Pressure 133/90 H 126/86 Pulse Oximetry 97 98 Oxygen Delivery Method Room Air Room Air BMI result Body Mass Index 31.3 Labs 03/11/24 11:07 03/13/24 08:18 Imaging Radiology Impressions: ITS Impressions Head CT 03/18/24 09:42 IMPRESSION: 1. No evidence of acute intracranial hemorrhage or edematous territorial infarction. 2. Mild to moderate underlying microangiopathy. 3. Arachnoid cyst in the right middle cranial fossa. Electronically signed by: Mino Arriaga DO 03/18/2024 06:26 PM EST RP Head CT 03/19/24 01:36 IMPRESSION: 1. Left frontal scalp soft tissue swelling. 2. No acute intracranial process seen. 3. Stable right middle cranial fossa arachnoid cyst. Electronically signed by: Andreas Olsen MD 03/19/2024 02:08 AM EST RP Medications Medications Current Medications Acetaminophen (Acetaminophen 325 Mg Tablet) 650 mg PO Q6H PRN PRN Reason: Headache/Pain Mild Scale (1-3) Al Hydroxide/Mg Hydroxide (Magnesium Hydrox/Alum Hydrox 30 Ml Oral.Susp) 30 ml PO Q6H PRN PRN Reason: Heartburn/Nausea Clozapine (Clozapine 100 Mg Tablet) 100 mg PO DAILY [facility] Last Admin: 03/24/24 09:09 Dose: 100 mg Clozapine (Clozapine 100 Mg Tablet) 300 mg PO BEDTIME [facility] Last Admin: 03/23/24 21:06 Dose: 300 mg Clozapine (Clozapine 100 Mg Tablet) 100 mg PO DAILY@1230 [facility] Last Admin: 03/24/24 12:08 Dose: 100 mg Famotidine (Famotidine 20 Mg Tablet) 20 mg PO DAILY [facility] Last Admin: 03/24/24 09:09 Dose: 20 mg Hydroxyzine HCl (Hydroxyzine Hcl 25 Mg Tablet) 25 mg PO Q6H PRN PRN Reason: Anxiety Last Admin: 03/23/24 21:06 Dose: 25 mg Lamotrigine (Lamotrigine 25 Mg Tablet) 50 mg PO BID [facility] Last Admin: 03/24/24 09:08 Dose: 50 mg Levothyroxine Sodium (Levothyroxine Sodium 75 Mcg Tablet) 75 mcg PO DAILY@0600 [facility] Last Admin: 03/24/24 05:32 Dose: 75 mcg Lorazepam (Lorazepam 1 Mg Tablet) 2 mg PO DAILY PRN PRN Reason: severe anxiety/agitation Last Admin: 03/19/24 03:25 Dose: 2 mg Magnesium Hydroxide (Milk Of Magnesia 30 Ml Oral.Susp) 30 ml PO BID PRN PRN Reason: Constipation Last Admin: 03/14/24 11:16 Dose: 30 ml Nicotine Polacrilex (Nicotine Polacrilex 2 Mg Gum) 2 mg BUCCAL Q2H PRN PRN Reason: Nicotine Cravings Polyethylene Glycol (Polyethylene Glycol 3350 17 Gm Powd.Pack) 17 gm PO DAILY PRN PRN Reason: Constipation Risperidone (Risperidone 3 Mg Tablet) 6 mg PO BID [facility] Last Admin: 03/24/24 09:08 Dose: 6 mg Senna (Sennosides 8.6 Mg Tablet) 8.6 mg PO DAILY PRN PRN Reason: Constipation Last Admin: 03/11/24 20:25 Dose: 8.6 mg Trazodone HCl (Trazodone Hcl 50 Mg Tablet) 50 mg PO BEDTIME MRX1 PRN PRN Reason: Insomnia Last Admin: 03/23/24 21:06 Dose: 50 mg Allergies Allergies Allergy/AdvReac Type Severity Reaction Status Date / Time trifluoperazine Allergy Unknown Verified 03/11/24 14:16 [From Stelazine] Assessment & Plan Assessment & Plan (1) Pre-op evaluation: Status: Acute Code(s): Z01.818 - Encounter for other preprocedural examination Plan Patient is a 73-year-old female with a PMH significant for HTN, post op VTE 2 years ago, hypothyroidism, and mood disorder who was admitted to [facility] after eloping from [facility] and walking into traffic on purpose. Patient apparently believes a friend is writing a horrible story about and does not want to live after everyone reads the book as she believes everyone will hate her. Hospitalist consult for ECT risk stratification. ECT risk stratification Previously underwent ECT without complications in 1998 Currently no significant medical complaints or PMH EKG from 7 days prior at time of admission negative for ischemia RCRI 0 points, class I risk Will repeat EKG before completing risk stratification Plan 1. We will try to gather collateral information we are going to try to contact Dr. Sanchez. 2. Continue with clozapine, we are titrating up slowly to target psychosis. At this moment she is receiving 100 mg p.o. b.i.d. and 300 p.o. q.h.s. and Risperdal is max out at 2 6 mg p.o. b.i.d. 3. We will consider ECT, will discuss with the family, family meeting over the phone today. The patient has refused ECT. 4. We will start doing information of healthcare proxy Reason for continued inpatient stay Substantial Risk for: inability to function, rapid decompensation and med/psych decompensation Time Spent With Patient Time: Total time managing care of this patient today __20__ minutes.
[2024-03-24 20:00] VITALS: BP 143/81; PULSE 84; RESP 15; TEMP 36.2; O2SAT 97
[2024-03-24] MEDS: cloZAPine 100 MG TABLET 300 MG PO (20:37)
[2024-03-25] MEDS: Levothyroxine Sodium 75 MCG TABLET PO (06:30)
[2024-03-25 08:00] VITALS: BP 127/74; PULSE 87; RESP 18; TEMP 36.7; O2SAT 97
[2024-03-25 08:31] LABS: Neut%MD 64.6 %; Neutrophils Absolute Auto 3.3 x10*3/uL (2.0-8.3); WBCANC 5.2 X10*3/uL
[2024-03-25] MEDS: cloZAPine 100 MG TABLET PO (12:15)
--- NOTE | 2024-03-25 13:00 | HO.PSYCHPN ---
Subjective Subjective Date of Service: 03/25/24 Reason For Visit: Psychosis Subjective Notes: Conditional Voluntary Interim History: The nursing staff reported the patient refused her medications denies new symptoms she spends most of time in her room stated that she feels better. Yesterday we called her daughter and reported that she does not want to have ECT and we are going to do information of healthcare proxy. On interview the patient denies new symptoms she stated that she is doing well. Still with blunted affect. Mental Status Exam Mental Status Exam Patient Appearance: Appropriate Patient Orientation: Person and Situation Level of Consciousness: Awake Patient Behavior: Guarded and Passive Mood Description: Withdrawn Affect Description: Labile Patient Cognition Impaired: Yes Ability to Follow Directions: Good Speech Pattern: Clear Hallucinations: None Delusions: Ideas of Reference Thought Process: Distracted and Slowed Thinking Thought Content: positive for [place] and positive for Poverty of Content Judgement: Fair Diagnostics Vital Signs (24Hr): Vital Signs - 24 hr 03/24/24 20:00 03/25/24 08:00 Temperature 97.2 F 98.1 F Pulse Rate 84 87 Respiratory Rate 15 18 Blood Pressure 143/81 H 127/74 Pulse Oximetry 97 97 Oxygen Delivery Method Room Air Room Air BMI result Body Mass Index 31.3 Labs 03/11/24 11:07 03/13/24 08:18 Labs: Laboratory Results - last 48 hr 03/25/24 08:12 Absolute Neuts (auto) 3.3 Imaging Radiology Impressions: ITS Impressions Head CT 03/18/24 09:42 IMPRESSION: 1. No evidence of acute intracranial hemorrhage or edematous territorial infarction. 2. Mild to moderate underlying microangiopathy. 3. Arachnoid cyst in the right middle cranial fossa. Electronically signed by: Mino Arriaga DO 03/18/2024 06:26 PM EST RP Head CT 03/19/24 01:36 IMPRESSION: 1. Left frontal scalp soft tissue swelling. 2. No acute intracranial process seen. 3. Stable right middle cranial fossa arachnoid cyst. Electronically signed by: Andreas Olsen MD 03/19/2024 02:08 AM EST RP Medications Medications Current Medications Acetaminophen (Acetaminophen 325 Mg Tablet) 650 mg PO Q6H PRN PRN Reason: Headache/Pain Mild Scale (1-3) Al Hydroxide/Mg Hydroxide (Magnesium Hydrox/Alum Hydrox 30 Ml Oral.Susp) 30 ml PO Q6H PRN PRN Reason: Heartburn/Nausea Clozapine (Clozapine 100 Mg Tablet) 100 mg PO DAILY [facility] Last Admin: 03/25/24 09:57 Dose: Not Given Clozapine (Clozapine 100 Mg Tablet) 300 mg PO BEDTIME [facility] Last Admin: 03/24/24 20:37 Dose: 300 mg Clozapine (Clozapine 100 Mg Tablet) 100 mg PO DAILY@1230 [facility] Last Admin: 03/25/24 12:15 Dose: 100 mg Famotidine (Famotidine 20 Mg Tablet) 20 mg PO DAILY [facility] Last Admin: 03/25/24 09:57 Dose: Not Given Hydroxyzine HCl (Hydroxyzine Hcl 25 Mg Tablet) 25 mg PO Q6H PRN PRN Reason: Anxiety Last Admin: 03/23/24 21:06 Dose: 25 mg Lamotrigine (Lamotrigine 25 Mg Tablet) 50 mg PO BID [facility] Last Admin: 03/25/24 09:57 Dose: Not Given Levothyroxine Sodium (Levothyroxine Sodium 75 Mcg Tablet) 75 mcg PO DAILY@0600 [facility] Last Admin: 03/25/24 06:30 Dose: 75 mcg Lorazepam (Lorazepam 1 Mg Tablet) 2 mg PO DAILY PRN PRN Reason: severe anxiety/agitation Last Admin: 03/19/24 03:25 Dose: 2 mg Magnesium Hydroxide (Milk Of Magnesia 30 Ml Oral.Susp) 30 ml PO BID PRN PRN Reason: Constipation Last Admin: 03/14/24 11:16 Dose: 30 ml Nicotine Polacrilex (Nicotine Polacrilex 2 Mg Gum) 2 mg BUCCAL Q2H PRN PRN Reason: Nicotine Cravings Polyethylene Glycol (Polyethylene Glycol 3350 17 Gm Powd.Pack) 17 gm PO DAILY PRN PRN Reason: Constipation Risperidone (Risperidone 3 Mg Tablet) 6 mg PO BID [facility] Last Admin: 03/25/24 09:57 Dose: Not Given Senna (Sennosides 8.6 Mg Tablet) 8.6 mg PO DAILY PRN PRN Reason: Constipation Last Admin: 03/11/24 20:25 Dose: 8.6 mg Trazodone HCl (Trazodone Hcl 50 Mg Tablet) 50 mg PO BEDTIME MRX1 PRN PRN Reason: Insomnia Last Admin: 03/23/24 21:06 Dose: 50 mg Allergies Allergies Allergy/AdvReac Type Severity Reaction Status Date / Time trifluoperazine Allergy Unknown Verified 03/11/24 14:16 [From Stelazine] Assessment & Plan Assessment & Plan (1) Pre-op evaluation: Status: Acute Code(s): Z01.818 - Encounter for other preprocedural examination Plan Patient is a 73-year-old female with a PMH significant for HTN, post op VTE 2 years ago, hypothyroidism, and mood disorder who was admitted to [facility] after eloping from [facility] and walking into traffic on purpose. Patient apparently believes a friend is writing a horrible story about and does not want to live after everyone reads the book as she believes everyone will hate her. Hospitalist consult for ECT risk stratification. ECT risk stratification Previously underwent ECT without complications in 1998 Currently no significant medical complaints or PMH EKG from 7 days prior at time of admission negative for ischemia RCRI 0 points, class I risk Will repeat EKG before completing risk stratification Plan 1. We will try to gather collateral information we are going to try to contact Dr. Sanchez. 2. Continue with clozapine, we are titrating up slowly to target psychosis. At this moment she is receiving 100 mg p.o. b.i.d. and 300 p.o. q.h.s. and Risperdal is max out at 2 6 mg p.o. b.i.d. 3. We will consider ECT, will discuss with the family, family meeting over the phone today. The patient has refused ECT. 4. We will start doing affirmation of healthcare proxy Reason for continued inpatient stay Substantial Risk for: inability to function, rapid decompensation and med/psych decompensation Time Spent With Patient Time: Total time managing care of this patient today __20__ minutes.
[2024-03-26 08:00] VITALS: RESP 18
--- NOTE | 2024-03-26 14:08 | P.PNPSI_ITS ---
Subjective Subjective Date of Service: 03/26/24 Reason For Visit: Psychosis Subjective Notes: Conditional Voluntary Interim History: The nursing staff reported the patient has refused medications. She took Clozaril later in the day. She slept 6 hours. Later on the nursing staff reported that she has refused treatment. On interview the patient looks catatonic she is unable to respond looking intensively unable to articulate. As per the discussion with her daughter a few days ago we are doing the affirmation of the healthcare proxy so we can do ECT and treat her. Mental Status Exam Mental Status Exam Patient Appearance: Appropriate Patient Orientation: Person and Situation Level of Consciousness: Awake and Appropriate Patient Behavior: Guarded and Passive Mood Description: Withdrawn Affect Description: Blunted Patient Cognition Impaired: Yes Ability to Follow Directions: Fair Speech Pattern: No Speech Hallucinations: None Delusions: Ideas of Reference Thought Process: Distracted Thought Content: positive for [place] and positive for Poverty of Content Judgement: Poor Diagnostics Vital Signs (24Hr): Vital Signs - 24 hr 03/26/24 08:00 Respiratory Rate 18 BMI result Body Mass Index 31.3 Labs 03/11/24 11:07 03/13/24 08:18 Labs: Laboratory Results - last 48 hr 03/25/24 08:12 Absolute Neuts (auto) 3.3 Imaging Radiology Impressions: ITS Impressions Head CT 03/18/24 09:42 IMPRESSION: 1. No evidence of acute intracranial hemorrhage or edematous territorial infarction. 2. Mild to moderate underlying microangiopathy. 3. Arachnoid cyst in the right middle cranial fossa. Electronically signed by: Mino Arriaga DO 03/18/2024 06:26 PM EST RP Head CT 03/19/24 01:36 IMPRESSION: 1. Left frontal scalp soft tissue swelling. 2. No acute intracranial process seen. 3. Stable right middle cranial fossa arachnoid cyst. Electronically signed by: Andreas Olsen MD 03/19/2024 02:08 AM EST RP Medications Medications Current Medications Acetaminophen (Acetaminophen 325 Mg Tablet) 650 mg PO Q6H PRN PRN Reason: Headache/Pain Mild Scale (1-3) Al Hydroxide/Mg Hydroxide (Magnesium Hydrox/Alum Hydrox 30 Ml Oral.Susp) 30 ml PO Q6H PRN PRN Reason: Heartburn/Nausea Clozapine (Clozapine 100 Mg Tablet) 100 mg PO DAILY [facility] Last Admin: 03/26/24 09:11 Dose: Not Given Clozapine (Clozapine 100 Mg Tablet) 300 mg PO BEDTIME [facility] Last Admin: 03/25/24 22:50 Dose: Not Given Clozapine (Clozapine 100 Mg Tablet) 100 mg PO DAILY@1230 [facility] Last Admin: 03/25/24 12:15 Dose: 100 mg Famotidine (Famotidine 20 Mg Tablet) 20 mg PO DAILY [facility] Last Admin: 03/26/24 09:12 Dose: Not Given Hydroxyzine HCl (Hydroxyzine Hcl 25 Mg Tablet) 25 mg PO Q6H PRN PRN Reason: Anxiety Last Admin: 03/23/24 21:06 Dose: 25 mg Lamotrigine (Lamotrigine 25 Mg Tablet) 50 mg PO BID [facility] Last Admin: 03/26/24 09:12 Dose: Not Given Levothyroxine Sodium (Levothyroxine Sodium 75 Mcg Tablet) 75 mcg PO DAILY@0600 [facility] Last Admin: 03/26/24 06:29 Dose: Not Given Lorazepam (Lorazepam 1 Mg Tablet) 2 mg PO DAILY PRN PRN Reason: severe anxiety/agitation Last Admin: 03/19/24 03:25 Dose: 2 mg Magnesium Hydroxide (Milk Of Magnesia 30 Ml Oral.Susp) 30 ml PO BID PRN PRN Reason: Constipation Last Admin: 03/14/24 11:16 Dose: 30 ml Nicotine Polacrilex (Nicotine Polacrilex 2 Mg Gum) 2 mg BUCCAL Q2H PRN PRN Reason: Nicotine Cravings Polyethylene Glycol (Polyethylene Glycol 3350 17 Gm Powd.Pack) 17 gm PO DAILY PRN PRN Reason: Constipation Risperidone (Risperidone 3 Mg Tablet) 6 mg PO BID [facility] Last Admin: 03/26/24 09:12 Dose: Not Given Senna (Sennosides 8.6 Mg Tablet) 8.6 mg PO DAILY PRN PRN Reason: Constipation Last Admin: 03/11/24 20:25 Dose: 8.6 mg Trazodone HCl (Trazodone Hcl 50 Mg Tablet) 50 mg PO BEDTIME MRX1 PRN PRN Reason: Insomnia Last Admin: 03/23/24 21:06 Dose: 50 mg Allergies Allergies Allergy/AdvReac Type Severity Reaction Status Date / Time trifluoperazine Allergy Unknown Verified 03/11/24 14:16 [From Stelazine] Assessment & Plan Assessment & Plan (1) Pre-op evaluation: Status: Acute Code(s): Z01.818 - Encounter for other preprocedural examination Plan Patient is a 73-year-old female with a PMH significant for HTN, post op VTE 2 years ago, hypothyroidism, and mood disorder who was admitted to [facility] after eloping from [facility] and walking into traffic on purpose. Patient apparently believes a friend is writing a horrible story about and does not want to live after everyone reads the book as she believes everyone will hate her. Hospitalist consult for ECT risk stratification. ECT risk stratification Previously underwent ECT without complications in 1998 Currently no significant medical complaints or PMH EKG from 7 days prior at time of admission negative for ischemia RCRI 0 points, class I risk Will repeat EKG before completing risk stratification Plan 1. We will try to gather collateral information we are going to try to contact Dr. Sanchez. 2. Continue with clozapine, we are titrating up slowly to target psychosis. At this moment she is receiving 100 mg p.o. b.i.d. and 300 p.o. q.h.s. and Risperdal is max out at 2 6 mg p.o. b.i.d. 3. We will consider ECT, will discuss with the family, family meeting over the phone today. The patient has refused ECT. 4. We will start doing affirmation of healthcare proxy Reason for continued inpatient stay Substantial Risk for: inability to function, rapid decompensation and med/psych decompensation Time Spent With Patient Time: Total time managing care of this patient today _20___ minutes.
--- NOTE | 2024-03-26 16:07 | PC.NURSE ---
Patient declined all scheduled medications during this shift, Dr. Cerda notified.
[2024-03-26 20:00] VITALS: BP 124/71; PULSE 91; RESP 18; TEMP 36.8; O2SAT 97
--- NOTE | 2024-03-27 07:53 | HO.PSYCHPN ---
Subjective Subjective Date of Service: 03/27/24 Reason For Visit: Psychosis Subjective Notes: Conditional Voluntary Healthcare Proxy: Yes Interim History: The nursing staff reported the patient had been refusing her antipsychotics for the last 2 days since she had been more isolative, internally preoccupied, nearly catatonic. We discussed with her daughter and we are going to affirmed the healthcare proxy to start ECT. She is decompensating since she is noncompliant with medications. Mental Status Exam Mental Status Exam Patient Appearance: Appropriate Patient Orientation: Person Level of Consciousness: Awake Patient Behavior: Guarded and Passive Mood Description: Withdrawn Affect Description: Blunted Patient Cognition Impaired: Yes Ability to Follow Directions: Fair Speech Pattern: No Speech Hallucinations: Auditory and Visual Delusions: Paranoid Ideation and Ideas of Reference Thought Process: Distracted and Slowed Thinking Thought Content: positive for [place] and positive for Poverty of Content Judgement: Poor Diagnostics Vital Signs (24Hr): Vital Signs - 24 hr 03/26/24 08:00 03/26/24 20:00 Temperature 98.2 F Pulse Rate 91 Respiratory Rate 18 18 Blood Pressure 124/71 Pulse Oximetry 97 Oxygen Delivery Method Room Air BMI result Body Mass Index 31.3 Labs 03/11/24 11:07 03/13/24 08:18 Labs: Laboratory Results - last 48 hr 03/25/24 08:12 Absolute Neuts (auto) 3.3 Imaging Radiology Impressions: ITS Impressions Head CT 03/18/24 09:42 IMPRESSION: 1. No evidence of acute intracranial hemorrhage or edematous territorial infarction. 2. Mild to moderate underlying microangiopathy. 3. Arachnoid cyst in the right middle cranial fossa. Electronically signed by: Mino Arriaga DO 03/18/2024 06:26 PM EST RP Head CT 03/19/24 01:36 IMPRESSION: 1. Left frontal scalp soft tissue swelling. 2. No acute intracranial process seen. 3. Stable right middle cranial fossa arachnoid cyst. Electronically signed by: Andreas Olsen MD 03/19/2024 02:08 AM EST RP Medications Medications Current Medications Acetaminophen (Acetaminophen 325 Mg Tablet) 650 mg PO Q6H PRN PRN Reason: Headache/Pain Mild Scale (1-3) Al Hydroxide/Mg Hydroxide (Magnesium Hydrox/Alum Hydrox 30 Ml Oral.Susp) 30 ml PO Q6H PRN PRN Reason: Heartburn/Nausea Clozapine (Clozapine 100 Mg Tablet) 100 mg PO DAILY [facility] Last Admin: 03/26/24 09:11 Dose: Not Given Clozapine (Clozapine 100 Mg Tablet) 300 mg PO BEDTIME [facility] Last Admin: 03/26/24 20:20 Dose: Not Given Clozapine (Clozapine 100 Mg Tablet) 100 mg PO DAILY@1230 [facility] Last Admin: 03/26/24 14:08 Dose: Not Given Famotidine (Famotidine 20 Mg Tablet) 20 mg PO DAILY [facility] Last Admin: 03/26/24 09:12 Dose: Not Given Hydroxyzine HCl (Hydroxyzine Hcl 25 Mg Tablet) 25 mg PO Q6H PRN PRN Reason: Anxiety Last Admin: 03/23/24 21:06 Dose: 25 mg Lamotrigine (Lamotrigine 25 Mg Tablet) 50 mg PO BID [facility] Last Admin: 03/26/24 20:20 Dose: Not Given Levothyroxine Sodium (Levothyroxine Sodium 75 Mcg Tablet) 75 mcg PO DAILY@0600 [facility] Last Admin: 03/27/24 05:41 Dose: Not Given Lorazepam (Lorazepam 1 Mg Tablet) 2 mg PO DAILY PRN PRN Reason: severe anxiety/agitation Last Admin: 03/19/24 03:25 Dose: 2 mg Magnesium Hydroxide (Milk Of Magnesia 30 Ml Oral.Susp) 30 ml PO BID PRN PRN Reason: Constipation Last Admin: 03/14/24 11:16 Dose: 30 ml Nicotine Polacrilex (Nicotine Polacrilex 2 Mg Gum) 2 mg BUCCAL Q2H PRN PRN Reason: Nicotine Cravings Polyethylene Glycol (Polyethylene Glycol 3350 17 Gm Powd.Pack) 17 gm PO DAILY PRN PRN Reason: Constipation Risperidone (Risperidone 3 Mg Tablet) 6 mg PO BID [facility] Last Admin: 03/26/24 20:20 Dose: Not Given Senna (Sennosides 8.6 Mg Tablet) 8.6 mg PO DAILY PRN PRN Reason: Constipation Last Admin: 03/11/24 20:25 Dose: 8.6 mg Trazodone HCl (Trazodone Hcl 50 Mg Tablet) 50 mg PO BEDTIME MRX1 PRN PRN Reason: Insomnia Last Admin: 03/23/24 21:06 Dose: 50 mg Allergies Allergies Allergy/AdvReac Type Severity Reaction Status Date / Time trifluoperazine Allergy Unknown Verified 03/11/24 14:16 [From Stelazine] Assessment & Plan Assessment & Plan (1) Pre-op evaluation: Status: Acute Code(s): Z01.818 - Encounter for other preprocedural examination Plan Patient is a 73-year-old female with a PMH significant for HTN, post op VTE 2 years ago, hypothyroidism, and mood disorder who was admitted to [facility] after eloping from [facility] and walking into traffic on purpose. Patient apparently believes a friend is writing a horrible story about and does not want to live after everyone reads the book as she believes everyone will hate her. Hospitalist consult for ECT risk stratification. ECT risk stratification Previously underwent ECT without complications in 1998 Currently no significant medical complaints or PMH EKG from 7 days prior at time of admission negative for ischemia RCRI 0 points, class I risk Will repeat EKG before completing risk stratification Plan 1. We will try to gather collateral information we are going to try to contact Dr. Sanchez. 2. Continue with clozapine, we are titrating up slowly to target psychosis. At this moment she is receiving 100 mg p.o. b.i.d. and 300 p.o. q.h.s. and Risperdal is max out at 2 6 mg p.o. b.i.d. 3. We will consider ECT, will discuss with the family, family meeting over the phone on 03/25. The patient has refused ECT. 4. We will start doing affirmation of healthcare proxy. 5. She had been noncompliant with medications for the last 2 days and she looks nearly catatonic. We will consider ECT with the team Reason for continued inpatient stay Substantial Risk for: inability to function, rapid decompensation and med/psych decompensation Time Spent With Patient Time: Total time managing care of this patient today __20__ minutes.
[2024-03-27 09:10] VITALS: BP 121/75; PULSE 85; RESP 16; TEMP 36.6; O2SAT 97
[2024-03-27] MEDS: cloZAPine 100 MG TABLET PO ×2 (09:46→14:31)
[2024-03-27] MEDS: risperiDONE 3 MG TABLET 6 MG PO ×2 (09:46→20:50)
[2024-03-27] MEDS: Levothyroxine Sodium 75 MCG TABLET PO (09:46)
[2024-03-27] MEDS: Famotidine 20 MG TABLET PO (09:46)
[2024-03-27] MEDS: lamoTRIgine 25 MG TABLET 50 MG PO ×2 (09:47→20:51)
[2024-03-27] MEDS: cloZAPine 100 MG TABLET 300 MG PO (20:51)
[2024-03-28] MEDS: Levothyroxine Sodium 75 MCG TABLET PO (06:19)
--- NOTE | 2024-03-28 08:01 | P.PNPSI_ITS ---
Subjective Subjective Date of Service: 03/28/24 Reason For Visit: Psychosis Subjective Notes: Conditional Voluntary Interim History: overall no active management issues. Is isolative and paranoid. Noted team pursuing healthcare proxy supported ECT. With securities underwriter states she is feeling better. Is unable to clarify exactly how she is feeling better or differences compared to admission. Reports she is at [facility] and has been at [place] for a week or maybe less - admitted 03/12/2024. Medication Compliance: Yes Side effects from medications: No Attending Groups: No Review of Systems Acute medical concerns: No Review of Systems Review of Systems nothing acute Mental Status Exam Mental Status Exam Patient Appearance: Appropriate Patient Orientation: Person Level of Consciousness: Awake Patient Behavior: Guarded and Passive Behavior Comments: Patient calm and cooperative often in her room Mood Description: Withdrawn Affect Description: Blunted Patient Cognition Impaired: Yes Ability to Follow Directions: Fair Speech Pattern: No Speech Memory Description: M[facility] Impaired Judgement: Poor Diagnostics Vital Signs (24Hr): Vital Signs - 24 hr 03/27/24 09:10 Temperature 97.9 F Pulse Rate 85 Respiratory Rate 16 Blood Pressure 121/75 Pulse Oximetry 97 Oxygen Delivery Method Room Air BMI result Body Mass Index 31.3 Labs 03/11/24 11:07 03/13/24 08:18 Imaging Radiology Impressions: ITS Impressions Head CT 03/18/24 09:42 IMPRESSION: 1. No evidence of acute intracranial hemorrhage or edematous territorial infarction. 2. Mild to moderate underlying microangiopathy. 3. Arachnoid cyst in the right middle cranial fossa. Electronically signed by: Mino Arriaga DO 03/18/2024 06:26 PM EST RP Head CT 03/19/24 01:36 IMPRESSION: 1. Left frontal scalp soft tissue swelling. 2. No acute intracranial process seen. 3. Stable right middle cranial fossa arachnoid cyst. Electronically signed by: Andreas Olsen MD 03/19/2024 02:08 AM EST RP Medications Medications Current Medications Acetaminophen (Acetaminophen 325 Mg Tablet) 650 mg PO Q6H PRN PRN Reason: Headache/Pain Mild Scale (1-3) Al Hydroxide/Mg Hydroxide (Magnesium Hydrox/Alum Hydrox 30 Ml Oral.Susp) 30 ml PO Q6H PRN PRN Reason: Heartburn/Nausea Clozapine (Clozapine 100 Mg Tablet) 100 mg PO DAILY [facility] Last Admin: 03/27/24 09:46 Dose: 100 mg Clozapine (Clozapine 100 Mg Tablet) 300 mg PO BEDTIME [facility] Last Admin: 03/27/24 20:51 Dose: 300 mg Clozapine (Clozapine 100 Mg Tablet) 100 mg PO DAILY@1230 [facility] Last Admin: 03/27/24 14:31 Dose: 100 mg Famotidine (Famotidine 20 Mg Tablet) 20 mg PO DAILY [facility] Last Admin: 03/27/24 09:46 Dose: 20 mg Hydroxyzine HCl (Hydroxyzine Hcl 25 Mg Tablet) 25 mg PO Q6H PRN PRN Reason: Anxiety Last Admin: 03/23/24 21:06 Dose: 25 mg Lamotrigine (Lamotrigine 25 Mg Tablet) 50 mg PO BID [facility] Last Admin: 03/27/24 20:51 Dose: 50 mg Levothyroxine Sodium (Levothyroxine Sodium 75 Mcg Tablet) 75 mcg PO DAILY@0600 [facility] Last Admin: 03/28/24 06:19 Dose: 75 mcg Lorazepam (Lorazepam 1 Mg Tablet) 2 mg PO DAILY PRN PRN Reason: severe anxiety/agitation Last Admin: 03/19/24 03:25 Dose: 2 mg Magnesium Hydroxide (Milk Of Magnesia 30 Ml Oral.Susp) 30 ml PO BID PRN PRN Reason: Constipation Last Admin: 03/14/24 11:16 Dose: 30 ml Nicotine Polacrilex (Nicotine Polacrilex 2 Mg Gum) 2 mg BUCCAL Q2H PRN PRN Reason: Nicotine Cravings Polyethylene Glycol (Polyethylene Glycol 3350 17 Gm Powd.Pack) 17 gm PO DAILY PRN PRN Reason: Constipation Risperidone (Risperidone 3 Mg Tablet) 6 mg PO BID [facility] Last Admin: 03/27/24 20:50 Dose: 6 mg Senna (Sennosides 8.6 Mg Tablet) 8.6 mg PO DAILY PRN PRN Reason: Constipation Last Admin: 03/11/24 20:25 Dose: 8.6 mg Trazodone HCl (Trazodone Hcl 50 Mg Tablet) 50 mg PO BEDTIME MRX1 PRN PRN Reason: Insomnia Last Admin: 03/23/24 21:06 Dose: 50 mg Allergies Allergies Allergy/AdvReac Type Severity Reaction Status Date / Time trifluoperazine Allergy Unknown Verified 03/11/24 14:16 [From Stelazine] Assessment & Plan Assessment & Plan (1) Pre-op evaluation: Status: Acute Code(s): Z01.818 - Encounter for other preprocedural examination Plan Patient is a 73-year-old female with a PMH significant for HTN, post op VTE 2 years ago, hypothyroidism, and mood disorder who was admitted to [facility] after eloping from [facility] and walking into traffic on purpose. Patient apparently believes a friend is writing a horrible story about and does not want to live after everyone reads the book as she believes everyone will hate her. Hospitalist consult for ECT risk stratification. ECT risk stratification Previously underwent ECT without complications in 1998 Currently no significant medical complaints or PMH EKG from 7 days prior at time of admission negative for ischemia RCRI 0 points, class I risk Will repeat EKG before completing risk stratification Plan 1. We will try to gather collateral information we are going to try to contact Dr. Sanchez. 2. Continue with clozapine, we are titrating up slowly to target psychosis. At this moment she is receiving 100 mg p.o. b.i.d. and 300 p.o. q.h.s. and Risperdal is max out at 2 6 mg p.o. b.i.d. 3. We will consider ECT, will discuss with the family, family meeting over the phone on 03/25. The patient has refused ECT. 4. We will start doing affirmation of healthcare proxy. 5. She had been noncompliant with medications for the last 2 days and she looks nearly catatonic. We will consider ECT with the team 03/28/2024: Unable to care for self, poor insight and treatment team considering ECT with healthcare proxy support Reason for continued inpatient stay Substantial Risk for: inability to function and rapid decompensation Time Spent With Patient Time: Total time managing care of this patient today ____ minutes.
[2024-03-28 09:01] VITALS: BP 130/80; PULSE 88; RESP 16; TEMP 36.1; O2SAT 97
[2024-03-28] MEDS: lamoTRIgine 25 MG TABLET 50 MG PO ×2 (09:03→20:07)
[2024-03-28] MEDS: risperiDONE 3 MG TABLET 6 MG PO ×2 (09:04→20:07)
[2024-03-28] MEDS: cloZAPine 100 MG TABLET PO ×2 (09:05→12:11)
[2024-03-28] MEDS: Famotidine 20 MG TABLET PO (09:10)
[2024-03-28] MEDS: cloZAPine 100 MG TABLET 300 MG PO (20:07)
[2024-03-29] MEDS: Levothyroxine Sodium 75 MCG TABLET PO (06:13)
[2024-03-29 08:00] VITALS: BP 102/64; PULSE 85; RESP 18; TEMP 36.8; O2SAT 97
[2024-03-29] MEDS: lamoTRIgine 25 MG TABLET 50 MG PO ×2 (08:43→21:44)
[2024-03-29] MEDS: cloZAPine 100 MG TABLET PO ×2 (08:43→11:52)
[2024-03-29] MEDS: risperiDONE 3 MG TABLET 6 MG PO ×2 (08:43→21:44)
[2024-03-29] MEDS: Famotidine 20 MG TABLET PO (08:43)
--- NOTE | 2024-03-29 10:07 | HO.PSYCHPN ---
Subjective Subjective Date of Service: 03/29/24 Reason For Visit: Psychosis Interim History: Vomited after medications yesterday. Remains isolative and paranoid. Denies there beig any issues and feels well . Denied sleep issues. Denied feeling unsfae, SI, HI. Has cognitive impairment ie timeframe here is quite off by greater than 1 week. Noted team pursuing healthcare proxy supported ECT. 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 No evidence of acute intracranial hemorrhage or edematous territorial infarction. 2. Mild to moderate underlying microangiopathy. 3. Arachnoid cyst in the right middle cranial fossa. Electronically signed by: Mino Arriaga DO 03/18/2024 06:26 PM EST RP Head CT 03/19/24 01:36 IMPRESSION: 1. Left frontal scalp soft tissue swelling. 2. No acute intracranial process seen. 3. Stable right middle cranial fossa arachnoid cyst. Electronically signed by: Andreas Olsen MD 03/19/2024 02:08 AM EST RP Medications Medications Current Medications Acetaminophen (Acetaminophen 325 Mg Tablet) 650 mg PO Q6H PRN PRN Reason: Headache/Pain Mild Scale (1-3) Al Hydroxide/Mg Hydroxide (Magnesium Hydrox/Alum Hydrox 30 Ml Oral.Susp) 30 ml PO Q6H PRN PRN Reason: Heartburn/Nausea Clozapine (Clozapine 100 Mg Tablet) 100 mg PO DAILY [facility] Last Admin: 03/29/24 08:43 Dose: 100 mg Clozapine (Clozapine 100 Mg Tablet) 300 mg PO BEDTIME [facility] Last Admin: 03/28/24 20:07 Dose: 300 mg Clozapine (Clozapine 100 Mg Tablet) 100 mg PO DAILY@1230 [facility] Last Admin: 03/28/24 12:11 Dose: 100 mg Famotidine (Famotidine 20 Mg Tablet) 20 mg PO DAILY [facility] Last Admin: 03/29/24 08:43 Dose: 20 mg Hydroxyzine HCl (Hydroxyzine Hcl 25 Mg Tablet) 25 mg PO Q6H PRN PRN Reason: Anxiety Last Admin: 03/23/24 21:06 Dose: 25 mg Lamotrigine (Lamotrigine 25 Mg Tablet) 50 mg PO BID [facility] Last Admin: 03/29/24 08:43 Dose: 50 mg Levothyroxine Sodium (Levothyroxine Sodium 75 Mcg Tablet) 75 mcg PO DAILY@0600 [facility] Last Admin: 03/29/24 06:13 Dose: 75 mcg Lorazepam (Lorazepam 1 Mg Tablet) 2 mg PO DAILY PRN PRN Reason: severe anxiety/agitation Last Admin: 03/19/24 03:25 Dose: 2 mg Magnesium Hydroxide (Milk Of Magnesia 30 Ml Oral.Susp) 30 ml PO BID PRN PRN Reason: Constipation Last Admin: 03/14/24 11:16 Dose: 30 ml Nicotine Polacrilex (Nicotine Polacrilex 2 Mg Gum) 2 mg BUCCAL Q2H PRN PRN Reason: Nicotine Cravings Polyethylene Glycol (Polyethylene Glycol 3350 17 Gm Powd.Pack) 17 gm PO DAILY PRN PRN Reason: Constipation Risperidone (Risperidone 3 Mg Tablet) 6 mg PO BID [facility] Last Admin: 03/29/24 08:43 Dose: 6 mg Senna (Sennosides 8.6 Mg Tablet) 8.6 mg PO DAILY PRN PRN Reason: Constipation Last Admin: 03/11/24 20:25 Dose: 8.6 mg Trazodone HCl (Trazodone Hcl 50 Mg Tablet) 50 mg PO BEDTIME MRX1 PRN PRN Reason: Insomnia Last Admin: 03/23/24 21:06 Dose: 50 mg Allergies Allergies Allergy/AdvReac Type Severity Reaction Status Date / Time trifluoperazine Allergy Unknown Verified 03/11/24 14:16 [From Stelazine] Assessment & Plan Assessment & Plan (1) Pre-op evaluation: Status: Acute Code(s): Z01.818 - Encounter for other preprocedural examination Plan Patient is a 73-year-old female with a PMH significant for HTN, post op VTE 2 years ago, hypothyroidism, and mood disorder who was admitted to [facility] after eloping from [facility] and walking into traffic on purpose. Patient apparently believes a friend is writing a horrible story about and does not want to live after everyone reads the book as she believes everyone will hate her. Hospitalist consult for ECT risk stratification. ECT risk stratification Previously underwent ECT without complications in 1998 Currently no significant medical complaints or PMH EKG from 7 days prior at time of admission negative for ischemia RCRI 0 points, class I risk Will repeat EKG before completing risk stratification Plan 1. We will try to gather collateral information we are going to try to contact Dr. Sanchez. 2. Continue with clozapine, we are titrating up slowly to target psychosis. At this moment she is receiving 100 mg p.o. b.i.d. and 300 p.o. q.h.s. and Risperdal is max out at 2 6 mg p.o. b.i.d. 3. We will consider ECT, will discuss with the family, family meeting over the phone on 03/25. The patient has refused ECT. 4. We will start doing affirmation of healthcare proxy. 5. She had been noncompliant with medications for the last 2 days and she looks nearly catatonic. We will consider ECT with the team 03/29/2024: Unable to care for self, poor insight and treatment team considering ECT with healthcare proxy support Reason for continued inpatient stay Substantial Risk for: inability to function Time Spent With Patient Time: Total time managing care of this patient today ____ minutes.
[2024-03-29] MEDS: hydrOXYzine HCL 25 MG TABLET PO (21:45)
[2024-03-29] MEDS: traZODone HCL 50 MG TABLET PO (21:45)
[2024-03-30] MEDS: Levothyroxine Sodium 75 MCG TABLET PO (06:14)
[2024-03-30 08:00] VITALS: PULSE 16
[2024-03-30] MEDS: cloZAPine 100 MG TABLET PO ×2 (09:47→12:09)
[2024-03-30] MEDS: Famotidine 20 MG TABLET PO (09:47)
[2024-03-30] MEDS: lamoTRIgine 25 MG TABLET 50 MG PO ×2 (09:47→21:24)
[2024-03-30] MEDS: risperiDONE 3 MG TABLET 6 MG PO ×2 (09:48→21:24)
--- NOTE | 2024-03-30 10:49 | P.PNPSI_ITS ---
Subjective Subjective Date of Service: 03/30/24 Reason For Visit: Psychosis Subjective Notes: Conditional Voluntary Healthcare Proxy: Yes Interim History: The nursing staff reported the patient took her medications in the evening but not her Clozaril. She took only on Saturday not on Saturday. On interview the patient is hypoactive stating that she is taking her meds but she spends most of the time in her bed. We have filed the paperwork for information of healthcare proxy. We will meet with her family pretty soon with treatment options. Mental Status Exam Mental Status Exam Patient Appearance: Appropriate Patient Orientation: Person and Situation Level of Consciousness: Awake and Appropriate Patient Behavior: Guarded and Passive Mood Description: Withdrawn Affect Description: Constricted Patient Cognition Impaired: Yes Ability to Follow Directions: Good Speech Pattern: Clear Hallucinations: None Delusions: Ideas of Reference Thought Process: Distracted and Slowed Thinking Thought Content: positive for [place] and positive for Poverty of Content Judgement: Poor Diagnostics Vital Signs (24Hr): Vital Signs - 24 hr 03/30/24 08:00 Pulse Rate 16 L BMI result Body Mass Index 31.3 Labs 03/11/24 11:07 03/13/24 08:18 Imaging Radiology Impressions: ITS Impressions Head CT 03/18/24 09:42 IMPRESSION: 1. No evidence of acute intracranial hemorrhage or edematous territorial infarction. 2. Mild to moderate underlying microangiopathy. 3. Arachnoid cyst in the right middle cranial fossa. Electronically signed by: Mino Arriaga DO 03/18/2024 06:26 PM EST RP Head CT 03/19/24 01:36 IMPRESSION: 1. Left frontal scalp soft tissue swelling. 2. No acute intracranial process seen. 3. Stable right middle cranial fossa arachnoid cyst. Electronically signed by: Andreas Olsen MD 03/19/2024 02:08 AM EST RP Medications Medications Current Medications Acetaminophen (Acetaminophen 325 Mg Tablet) 650 mg PO Q6H PRN PRN Reason: Headache/Pain Mild Scale (1-3) Al Hydroxide/Mg Hydroxide (Magnesium Hydrox/Alum Hydrox 30 Ml Oral.Susp) 30 ml PO Q6H PRN PRN Reason: Heartburn/Nausea Clozapine (Clozapine 100 Mg Tablet) 100 mg PO DAILY [facility] Last Admin: 03/30/24 09:47 Dose: 100 mg Clozapine (Clozapine 100 Mg Tablet) 300 mg PO BEDTIME [facility] Last Admin: 03/30/24 00:09 Dose: Not Given Clozapine (Clozapine 100 Mg Tablet) 100 mg PO DAILY@1230 [facility] Last Admin: 03/29/24 11:52 Dose: 100 mg Famotidine (Famotidine 20 Mg Tablet) 20 mg PO DAILY [facility] Last Admin: 03/30/24 09:47 Dose: 20 mg Hydroxyzine HCl (Hydroxyzine Hcl 25 Mg Tablet) 25 mg PO Q6H PRN PRN Reason: Anxiety Last Admin: 03/29/24 21:45 Dose: 25 mg Lamotrigine (Lamotrigine 25 Mg Tablet) 50 mg PO BID [facility] Last Admin: 03/30/24 09:47 Dose: 50 mg Levothyroxine Sodium (Levothyroxine Sodium 75 Mcg Tablet) 75 mcg PO DAILY@0600 [facility] Last Admin: 03/30/24 06:14 Dose: 75 mcg Lorazepam (Lorazepam 1 Mg Tablet) 2 mg PO DAILY PRN PRN Reason: severe anxiety/agitation Last Admin: 03/19/24 03:25 Dose: 2 mg Magnesium Hydroxide (Milk Of Magnesia 30 Ml Oral.Susp) 30 ml PO BID PRN PRN Reason: Constipation Last Admin: 03/14/24 11:16 Dose: 30 ml Nicotine Polacrilex (Nicotine Polacrilex 2 Mg Gum) 2 mg BUCCAL Q2H PRN PRN Reason: Nicotine Cravings Polyethylene Glycol (Polyethylene Glycol 3350 17 Gm Powd.Pack) 17 gm PO DAILY PRN PRN Reason: Constipation Risperidone (Risperidone 3 Mg Tablet) 6 mg PO BID [facility] Last Admin: 03/30/24 09:48 Dose: 6 mg Senna (Sennosides 8.6 Mg Tablet) 8.6 mg PO DAILY PRN PRN Reason: Constipation Last Admin: 03/11/24 20:25 Dose: 8.6 mg Trazodone HCl (Trazodone Hcl 50 Mg Tablet) 50 mg PO BEDTIME MRX1 PRN PRN Reason: Insomnia Last Admin: 03/29/24 21:45 Dose: 50 mg Allergies Allergies Allergy/AdvReac Type Severity Reaction Status Date / Time trifluoperazine Allergy Unknown Verified 03/11/24 14:16 [From Stelazine] Assessment & Plan Assessment & Plan (1) Pre-op evaluation: Status: Acute Code(s): Z01.818 - Encounter for other preprocedural examination Plan Patient is a 73-year-old female with a PMH significant for HTN, post op VTE 2 years ago, hypothyroidism, and mood disorder who was admitted to [facility] after eloping from [facility] and walking into traffic on purpose. Patient apparently believes a friend is writing a horrible story about and does not want to live after everyone reads the book as she believes everyone will hate her. Hospitalist consult for ECT risk stratification. ECT risk stratification Previously underwent ECT without complications in 1998 Currently no significant medical complaints or PMH EKG from 7 days prior at time of admission negative for ischemia RCRI 0 points, class I risk Will repeat EKG before completing risk stratification Plan 1. We will try to gather collateral information we are going to try to contact Dr. Sanchez. 2. Continue with clozapine, we are titrating up slowly to target psychosis. At this moment she is receiving 100 mg p.o. b.i.d. and 300 p.o. q.h.s. and Risperdal is max out at 2 6 mg p.o. b.i.d. 3. We will consider ECT, will discuss with the family, family meeting over the phone on 03/25. The patient has refused ECT. 4. We will start doing affirmation of healthcare proxy. 5. She had been noncompliant with medications for the last 2 days and she looks nearly catatonic. We will consider ECT with the team Reason for continued inpatient stay Substantial Risk for: inability to function, rapid decompensation and med/psych decompensation Time Spent With Patient Time: Total time managing care of this patient today __20__ minutes.
[2024-03-30 20:00] VITALS: BP 101/79; PULSE 87; RESP 16; TEMP 36.4; O2SAT 100
[2024-03-30] MEDS: cloZAPine 100 MG TABLET 300 MG PO (21:24)
[2024-03-31] MEDS: Levothyroxine Sodium 75 MCG TABLET PO (06:20)
[2024-03-31] MEDS: lamoTRIgine 25 MG TABLET 50 MG PO ×2 (07:58→19:48)
[2024-03-31] MEDS: Famotidine 20 MG TABLET PO (07:59)
[2024-03-31] MEDS: risperiDONE 3 MG TABLET 6 MG PO ×2 (07:59→19:47)
[2024-03-31] MEDS: cloZAPine 100 MG TABLET PO ×2 (07:59→12:09)
[2024-03-31 08:00] VITALS: BP 130/77; PULSE 64; RESP 14; TEMP 36.2; O2SAT 96
--- NOTE | 2024-03-31 15:53 | P.PNPSI_ITS ---
Subjective Subjective Date of Service: 03/31/24 Reason For Visit: Psychosis Interim History: The nursing staff reported that she took her medications in the evening. The occupational therapist reported she had been more and responsive we are waiting for the information of the healthcare proxy. On interview the patient was seclusive denies new symptoms. Mental Status Exam Mental Status Exam Patient Appearance: Appropriate Patient Orientation: Person and Situation Level of Consciousness: Awake and Appropriate Patient Behavior: Guarded and Passive Mood Description: Withdrawn Affect Description: Constricted Patient Cognition Impaired: Yes Ability to Follow Directions: Good Speech Pattern: Clear Hallucinations: None Delusions: Paranoid Ideation and Ideas of Reference Thought Process: Distracted and Slowed Thinking Thought Content: positive for [place] and positive for Poverty of Content Judgement: Fair Diagnostics Vital Signs (24Hr): Vital Signs - 24 hr 03/30/24 20:00 03/31/24 08:00 Temperature 97.5 F 97.1 F Pulse Rate 87 64 Respiratory Rate 16 14 Blood Pressure 101/79 130/77 Pulse Oximetry 100 96 Oxygen Delivery Method Room Air Room Air BMI result Body Mass Index 31.3 Labs 03/11/24 11:07 03/13/24 08:18 Imaging Radiology Impressions: ITS Impressions Head CT 03/18/24 09:42 IMPRESSION: 1. No evidence of acute intracranial hemorrhage or edematous territorial infarction. 2. Mild to moderate underlying microangiopathy. 3. Arachnoid cyst in the right middle cranial fossa. Electronically signed by: Mino Arriaga DO 03/18/2024 06:26 PM EST RP Head CT 03/19/24 01:36 IMPRESSION: 1. Left frontal scalp soft tissue swelling. 2. No acute intracranial process seen. 3. Stable right middle cranial fossa arachnoid cyst. Electronically signed by: Andreas Olsen MD 03/19/2024 02:08 AM EST RP Medications Medications Current Medications Acetaminophen (Acetaminophen 325 Mg Tablet) 650 mg PO Q6H PRN PRN Reason: Headache/Pain Mild Scale (1-3) Al Hydroxide/Mg Hydroxide (Magnesium Hydrox/Alum Hydrox 30 Ml Oral.Susp) 30 ml PO Q6H PRN PRN Reason: Heartburn/Nausea Clozapine (Clozapine 100 Mg Tablet) 100 mg PO DAILY [facility] Last Admin: 03/31/24 07:59 Dose: 100 mg Clozapine (Clozapine 100 Mg Tablet) 300 mg PO BEDTIME [facility] Last Admin: 03/30/24 21:24 Dose: 300 mg Clozapine (Clozapine 100 Mg Tablet) 100 mg PO DAILY@1230 [facility] Last Admin: 03/31/24 12:09 Dose: 100 mg Famotidine (Famotidine 20 Mg Tablet) 20 mg PO DAILY [facility] Last Admin: 03/31/24 07:59 Dose: 20 mg Hydroxyzine HCl (Hydroxyzine Hcl 25 Mg Tablet) 25 mg PO Q6H PRN PRN Reason: Anxiety Last Admin: 03/29/24 21:45 Dose: 25 mg Lamotrigine (Lamotrigine 25 Mg Tablet) 50 mg PO BID [facility] Last Admin: 03/31/24 07:58 Dose: 50 mg Levothyroxine Sodium (Levothyroxine Sodium 75 Mcg Tablet) 75 mcg PO DAILY@0600 [facility] Last Admin: 03/31/24 06:20 Dose: 75 mcg Lorazepam (Lorazepam 1 Mg Tablet) 2 mg PO DAILY PRN PRN Reason: severe anxiety/agitation Last Admin: 03/19/24 03:25 Dose: 2 mg Magnesium Hydroxide (Milk Of Magnesia 30 Ml Oral.Susp) 30 ml PO BID PRN PRN Reason: Constipation Last Admin: 03/14/24 11:16 Dose: 30 ml Nicotine Polacrilex (Nicotine Polacrilex 2 Mg Gum) 2 mg BUCCAL Q2H PRN PRN Reason: Nicotine Cravings Polyethylene Glycol (Polyethylene Glycol 3350 17 Gm Powd.Pack) 17 gm PO DAILY PRN PRN Reason: Constipation Risperidone (Risperidone 3 Mg Tablet) 6 mg PO BID [facility] Last Admin: 03/31/24 07:59 Dose: 6 mg Senna (Sennosides 8.6 Mg Tablet) 8.6 mg PO DAILY PRN PRN Reason: Constipation Last Admin: 03/11/24 20:25 Dose: 8.6 mg Trazodone HCl (Trazodone Hcl 50 Mg Tablet) 50 mg PO BEDTIME MRX1 PRN PRN Reason: Insomnia Last Admin: 03/29/24 21:45 Dose: 50 mg Allergies Allergies Allergy/AdvReac Type Severity Reaction Status Date / Time trifluoperazine Allergy Unknown Verified 03/11/24 14:16 [From Stelazine] Assessment & Plan Assessment & Plan (1) Pre-op evaluation: Status: Acute Code(s): Z01.818 - Encounter for other preprocedural examination Plan Patient is a 73-year-old female with a PMH significant for HTN, post op VTE 2 years ago, hypothyroidism, and mood disorder who was admitted to [facility] after eloping from [facility] and walking into traffic on purpose. Patient apparently believes a friend is writing a horrible story about and does not want to live after everyone reads the book as she believes everyone will hate her. Hospitalist consult for ECT risk stratification. ECT risk stratification Previously underwent ECT without complications in 1998 Currently no significant medical complaints or PMH EKG from 7 days prior at time of admission negative for ischemia RCRI 0 points, class I risk Will repeat EKG before completing risk stratification Plan 1. We will try to gather collateral information we are going to try to contact Dr. Sanchez. 2. Continue with clozapine, we are titrating up slowly to target psychosis. At this moment she is receiving 100 mg p.o. b.i.d. and 300 p.o. q.h.s. and Risperdal is max out at 2 6 mg p.o. b.i.d. 3. We will consider ECT, will discuss with the family, family meeting over the phone on 03/25. The patient has refused ECT. 4. We will start doing affirmation of healthcare proxy. 5. She had been noncompliant with medications for the last 2 days and she looks nearly catatonic. We will consider ECT with the team Reason for continued inpatient stay Substantial Risk for: inability to function, rapid decompensation and med/psych decompensation Time Spent With Patient Time: Total time managing care of this patient today __20__ minutes.
[2024-03-31] MEDS: cloZAPine 100 MG TABLET 300 MG PO (19:47)
[2024-04-01] MEDS: Levothyroxine Sodium 75 MCG TABLET PO (05:53)
[2024-04-01] MEDS: lamoTRIgine 25 MG TABLET 50 MG PO ×2 (08:15→21:19)
[2024-04-01] MEDS: cloZAPine 100 MG TABLET PO ×2 (08:16→12:14)
[2024-04-01] MEDS: risperiDONE 3 MG TABLET 6 MG PO ×2 (08:16→21:19)
[2024-04-01] MEDS: Famotidine 20 MG TABLET PO (08:17)
--- NOTE | 2024-04-01 15:14 | P.PNPSI_ITS ---
Subjective Subjective Date of Service: 04/01/24 Reason For Visit: Psychosis Subjective Notes: Conditional Voluntary Interim History: The nursing staff reported the patient had been suspicious paranoid, she refused meds eating. The occupational therapist tried to interview her and she had delayed responses. Today on interview the patient only answer by nodding or his head. She denies new symptoms but she seems internally preoccupied nearly catatonic. We are waiting for the information of the healthcare proxy to start treatment. Mental Status Exam Mental Status Exam Patient Appearance: Appropriate Patient Orientation: Person and Situation Level of Consciousness: Awake Patient Behavior: Guarded Mood Description: Withdrawn Affect Description: Blunted Patient Cognition Impaired: Yes Ability to Follow Directions: Good Speech Pattern: Impoverished and No Speech Hallucinations: Auditory Delusions: Paranoid Ideation and Ideas of Reference Thought Process: Distracted and Slowed Thinking Thought Content: positive for [place] and positive for Poverty of Content Judgement: Poor Diagnostics Vital Signs (24Hr): BMI result Body Mass Index 31.3 Labs 03/11/24 11:07 03/13/24 08:18 Imaging Radiology Impressions: ITS Impressions Head CT 03/18/24 09:42 IMPRESSION: 1. No evidence of acute intracranial hemorrhage or edematous territorial infarction. 2. Mild to moderate underlying microangiopathy. 3. Arachnoid cyst in the right middle cranial fossa. Electronically signed by: Mino Arriaga DO 03/18/2024 06:26 PM EST RP Head CT 03/19/24 01:36 IMPRESSION: 1. Left frontal scalp soft tissue swelling. 2. No acute intracranial process seen. 3. Stable right middle cranial fossa arachnoid cyst. Electronically signed by: Andreas Olsen MD 03/19/2024 02:08 AM EST RP Medications Medications Current Medications Acetaminophen (Acetaminophen 325 Mg Tablet) 650 mg PO Q6H PRN PRN Reason: Headache/Pain Mild Scale (1-3) Al Hydroxide/Mg Hydroxide (Magnesium Hydrox/Alum Hydrox 30 Ml Oral.Susp) 30 ml PO Q6H PRN PRN Reason: Heartburn/Nausea Clozapine (Clozapine 100 Mg Tablet) 100 mg PO DAILY [facility] Last Admin: 04/01/24 08:16 Dose: 100 mg Clozapine (Clozapine 100 Mg Tablet) 300 mg PO BEDTIME [facility] Last Admin: 03/31/24 19:47 Dose: 300 mg Clozapine (Clozapine 100 Mg Tablet) 100 mg PO DAILY@1230 [facility] Last Admin: 04/01/24 12:14 Dose: 100 mg Famotidine (Famotidine 20 Mg Tablet) 20 mg PO DAILY [facility] Last Admin: 04/01/24 08:17 Dose: 20 mg Hydroxyzine HCl (Hydroxyzine Hcl 25 Mg Tablet) 25 mg PO Q6H PRN PRN Reason: Anxiety Last Admin: 03/29/24 21:45 Dose: 25 mg Lamotrigine (Lamotrigine 25 Mg Tablet) 50 mg PO BID [facility] Last Admin: 04/01/24 08:15 Dose: 50 mg Levothyroxine Sodium (Levothyroxine Sodium 75 Mcg Tablet) 75 mcg PO DAILY@0600 [facility] Last Admin: 04/01/24 05:53 Dose: 75 mcg Lorazepam (Lorazepam 1 Mg Tablet) 2 mg PO DAILY PRN PRN Reason: severe anxiety/agitation Last Admin: 03/19/24 03:25 Dose: 2 mg Magnesium Hydroxide (Milk Of Magnesia 30 Ml Oral.Susp) 30 ml PO BID PRN PRN Reason: Constipation Last Admin: 03/14/24 11:16 Dose: 30 ml Nicotine Polacrilex (Nicotine Polacrilex 2 Mg Gum) 2 mg BUCCAL Q2H PRN PRN Reason: Nicotine Cravings Polyethylene Glycol (Polyethylene Glycol 3350 17 Gm Powd.Pack) 17 gm PO DAILY PRN PRN Reason: Constipation Risperidone (Risperidone 3 Mg Tablet) 6 mg PO BID [facility] Last Admin: 04/01/24 08:16 Dose: 6 mg Senna (Sennosides 8.6 Mg Tablet) 8.6 mg PO DAILY PRN PRN Reason: Constipation Last Admin: 03/11/24 20:25 Dose: 8.6 mg Trazodone HCl (Trazodone Hcl 50 Mg Tablet) 50 mg PO BEDTIME MRX1 PRN PRN Reason: Insomnia Last Admin: 03/29/24 21:45 Dose: 50 mg Allergies Allergies Allergy/AdvReac Type Severity Reaction Status Date / Time trifluoperazine Allergy Unknown Verified 03/11/24 14:16 [From Stelazine] Assessment & Plan Assessment & Plan (1) Pre-op evaluation: Status: Acute Code(s): Z01.818 - Encounter for other preprocedural examination Plan Patient is a 73-year-old female with a PMH significant for HTN, post op VTE 2 years ago, hypothyroidism, and mood disorder who was admitted to [facility] after eloping from [facility] and walking into traffic on purpose. Patient apparently believes a friend is writing a horrible story about and does not want to live after everyone reads the book as she believes everyone will hate her. Hospitalist consult for ECT risk stratification. ECT risk stratification Previously underwent ECT without complications in 1998 Currently no significant medical complaints or PMH EKG from 7 days prior at time of admission negative for ischemia RCRI 0 points, class I risk Will repeat EKG before completing risk stratification Plan 1. We will try to gather collateral information we are going to try to contact Dr. Sanchez. 2. Continue with clozapine, we are titrating up slowly to target psychosis. At this moment she is receiving 100 mg p.o. b.i.d. and 300 p.o. q.h.s. and Risperdal is max out at 2 6 mg p.o. b.i.d. 3. We will consider ECT, will discuss with the family, family meeting over the phone on 03/25. The patient has refused ECT. 4. We will start doing affirmation of healthcare proxy. 5. She had been noncompliant with medications for the last 2 days and she looks nearly catatonic. We will consider ECT with the team Reason for continued inpatient stay Substantial Risk for: inability to function, rapid decompensation and med/psych decompensation Time Spent With Patient Time: Total time managing care of this patient today __20__ minutes.
[2024-04-01 20:00] VITALS: RESP 16
[2024-04-01] MEDS: cloZAPine 100 MG TABLET 300 MG PO (21:19)
[2024-04-02] MEDS: Levothyroxine Sodium 75 MCG TABLET PO (05:54)
[2024-04-02] MEDS: cloZAPine 100 MG TABLET PO (09:38)
[2024-04-02] MEDS: risperiDONE 3 MG TABLET 6 MG PO (09:39)
[2024-04-02] MEDS: lamoTRIgine 25 MG TABLET 50 MG PO (09:39)
[2024-04-02] MEDS: Famotidine 20 MG TABLET PO (09:39)
--- NOTE | 2024-04-02 14:54 | HO.PSYCHPN ---
Subjective Subjective Date of Service: 04/02/24 Reason For Visit: Psychosis Subjective Notes: Conditional Voluntary Healthcare Proxy: Yes Interim History: The nursing staff reported that she has been confused, flat, refused VS but took all her medications in the evening. The neonatal social worker reported that the [facility] worker came to visit but the patient refused to engage. Yesterday, since the patient has been progressively became catatonic, I had to invoke her HCP. Today, she was minimally engagable. Mental Status Exam Mental Status Exam Patient Appearance: Appropriate Patient Orientation: Person and Situation Level of Consciousness: Awake and Appropriate Patient Behavior: Guarded and Passive Mood Description: Withdrawn Affect Description: Constricted Patient Cognition Impaired: Yes Ability to Follow Directions: Good Speech Pattern: Clear Hallucinations: Auditory Delusions: Paranoid Ideation and Ideas of Reference Thought Process: Distracted and Evasive Thought Content: positive for Disorganized Judgement: Poor Diagnostics Vital Signs (24Hr): Vital Signs - 24 hr 04/01/24 20:00 Respiratory Rate 16 BMI result Body Mass Index 31.3 Labs 03/11/24 11:07 03/13/24 08:18 Imaging Radiology Impressions: ITS Impressions Head CT 03/18/24 09:42 IMPRESSION: 1. No evidence of acute intracranial hemorrhage or edematous territorial infarction. 2. Mild to moderate underlying microangiopathy. 3. Arachnoid cyst in the right middle cranial fossa. Electronically signed by: Mino Arriaga DO 03/18/2024 06:26 PM EST RP Head CT 03/19/24 01:36 IMPRESSION: 1. Left frontal scalp soft tissue swelling. 2. No acute intracranial process seen. 3. Stable right middle cranial fossa arachnoid cyst. Electronically signed by: Andreas Olsen MD 03/19/2024 02:08 AM EST RP Medications Medications Current Medications Acetaminophen (Acetaminophen 325 Mg Tablet) 650 mg PO Q6H PRN PRN Reason: Headache/Pain Mild Scale (1-3) Al Hydroxide/Mg Hydroxide (Magnesium Hydrox/Alum Hydrox 30 Ml Oral.Susp) 30 ml PO Q6H PRN PRN Reason: Heartburn/Nausea Clozapine (Clozapine 100 Mg Tablet) 100 mg PO DAILY [facility] Last Admin: 04/02/24 09:38 Dose: 100 mg Clozapine (Clozapine 100 Mg Tablet) 300 mg PO BEDTIME [facility] Last Admin: 04/01/24 21:19 Dose: 300 mg Clozapine (Clozapine 100 Mg Tablet) 100 mg PO DAILY@1230 [facility] Last Admin: 04/02/24 12:45 Dose: Not Given Famotidine (Famotidine 20 Mg Tablet) 20 mg PO DAILY [facility] Last Admin: 04/02/24 09:39 Dose: 20 mg Hydroxyzine HCl (Hydroxyzine Hcl 25 Mg Tablet) 25 mg PO Q6H PRN PRN Reason: Anxiety Last Admin: 03/29/24 21:45 Dose: 25 mg Lamotrigine (Lamotrigine 25 Mg Tablet) 50 mg PO BID [facility] Last Admin: 04/02/24 09:39 Dose: 50 mg Levothyroxine Sodium (Levothyroxine Sodium 75 Mcg Tablet) 75 mcg PO DAILY@0600 [facility] Last Admin: 04/02/24 05:54 Dose: 75 mcg Magnesium Hydroxide (Milk Of Magnesia 30 Ml Oral.Susp) 30 ml PO BID PRN PRN Reason: Constipation Last Admin: 03/14/24 11:16 Dose: 30 ml Nicotine Polacrilex (Nicotine Polacrilex 2 Mg Gum) 2 mg BUCCAL Q2H PRN PRN Reason: Nicotine Cravings Polyethylene Glycol (Polyethylene Glycol 3350 17 Gm Powd.Pack) 17 gm PO DAILY PRN PRN Reason: Constipation Risperidone (Risperidone 3 Mg Tablet) 6 mg PO BID [facility] Last Admin: 04/02/24 09:39 Dose: 6 mg Senna (Sennosides 8.6 Mg Tablet) 8.6 mg PO DAILY PRN PRN Reason: Constipation Last Admin: 03/11/24 20:25 Dose: 8.6 mg Trazodone HCl (Trazodone Hcl 50 Mg Tablet) 50 mg PO BEDTIME MRX1 PRN PRN Reason: Insomnia Last Admin: 03/29/24 21:45 Dose: 50 mg Allergies Allergies Allergy/AdvReac Type Severity Reaction Status Date / Time trifluoperazine Allergy Unknown Verified 03/11/24 14:16 [From Stelazine] Assessment & Plan Assessment & Plan (1) Pre-op evaluation: Status: Acute Code(s): Z01.818 - Encounter for other preprocedural examination Plan Patient is a 73-year-old female with a PMH significant for HTN, post op VTE 2 years ago, hypothyroidism, and mood disorder who was admitted to [facility] after eloping from [facility] and walking into traffic on purpose. Patient apparently believes a friend is writing a horrible story about and does not want to live after everyone reads the book as she believes everyone will hate her. Hospitalist consult for ECT risk stratification. ECT risk stratification Previously underwent ECT without complications in 1998 Currently no significant medical complaints or PMH EKG from 7 days prior at time of admission negative for ischemia RCRI 0 points, class I risk Will repeat EKG before completing risk stratification Plan 1. We will try to gather collateral information we are going to try to contact Dr. Sanchez. 2. Continue with clozapine, we are titrating up slowly to target psychosis. At this moment she is receiving 100 mg p.o. b.i.d. and 300 p.o. q.h.s. and Risperdal is max out at 2 6 mg p.o. b.i.d. 3. We will consider ECT, will discuss with the family, family meeting over the phone on 03/25. The patient has refused ECT. 4. We will start doing affirmation of healthcare proxy. 5. She had been noncompliant with medications for the last 2 days and she looks nearly catatonic. We will consider ECT with the team Reason for continued inpatient stay Substantial Risk for: inability to function, rapid decompensation and med/psych decompensation Time Spent With Patient Time: Total time managing care of this patient today __20__ minutes.
--- NOTE | 2024-04-02 16:48 | HE.PHANOTE ---
Clozaril Pt due for ANC on 04/01/24. Another ANC ordered for 04/02/24. Spoke with VANESSA rAteaga and Phlebotomy to try to draw ANC again this evening. Patient is still refusing. Dr. Cerda notified.
[2024-04-02 20:00] VITALS: RESP 16
[2024-04-03 07:49] LABS: WBCANC 7.3 X10*3/uL
[2024-04-03 08:50] VITALS: BP 120/74; PULSE 86; RESP 15; TEMP 36.1; O2SAT 98
[2024-04-03] MEDS: lamoTRIgine 25 MG TABLET 50 MG PO ×2 (08:58→20:16)
[2024-04-03] MEDS: risperiDONE 3 MG TABLET 6 MG PO ×2 (08:58→20:16)
[2024-04-03] MEDS: cloZAPine 100 MG TABLET PO (08:58)
[2024-04-03] MEDS: Famotidine 20 MG TABLET PO (08:58)
--- NOTE | 2024-04-03 15:44 | HO.PSYCHPN ---
Subjective Subjective Date of Service: 04/03/24 Reason For Visit: Psychosis Subjective Notes: Conditional Voluntary Interim History: The nursing staff reported the patient has refused vital signs, she refused labs and she had been paranoid hypoactive slept 6 hours. She had been compliant with medications. On interview the patient was selectively mute looks nearly catatonic waiting for information of healthcare proxy Mental Status Exam Mental Status Exam Patient Appearance: Appropriate Patient Orientation: Person Level of Consciousness: Awake and Appropriate Patient Behavior: Guarded and Passive Mood Description: Withdrawn and Constricted Affect Description: Blunted Patient Cognition Impaired: Yes Ability to Follow Directions: Good Speech Pattern: Impoverished Hallucinations: None Delusions: Paranoid Ideation and Ideas of Reference Thought Process: Distracted and Slowed Thinking Thought Content: positive for [place] and positive for Poverty of Content Judgement: Poor Diagnostics Vital Signs (24Hr): Vital Signs - 24 hr 04/02/24 20:00 04/03/24 08:50 Temperature 97 F Pulse Rate 86 Respiratory Rate 16 15 Blood Pressure 120/74 Pulse Oximetry 98 Oxygen Delivery Method Room Air BMI result Body Mass Index 31.3 Labs 03/11/24 11:07 03/13/24 08:18 Labs: Laboratory Results - last 48 hr 04/03/24 07:40 Absolute Neuts (auto) 5.0 Imaging Radiology Impressions: ITS Impressions Head CT 03/18/24 09:42 IMPRESSION: 1. No evidence of acute intracranial hemorrhage or edematous territorial infarction. 2. Mild to moderate underlying microangiopathy. 3. Arachnoid cyst in the right middle cranial fossa. Electronically signed by: Mino Arriaga DO 03/18/2024 06:26 PM EST RP Head CT 03/19/24 01:36 IMPRESSION: 1. Left frontal scalp soft tissue swelling. 2. No acute intracranial process seen. 3. Stable right middle cranial fossa arachnoid cyst. Electronically signed by: Andreas Olsen MD 03/19/2024 02:08 AM EST RP Medications Medications Current Medications Acetaminophen (Acetaminophen 325 Mg Tablet) 650 mg PO Q6H PRN PRN Reason: Headache/Pain Mild Scale (1-3) Al Hydroxide/Mg Hydroxide (Magnesium Hydrox/Alum Hydrox 30 Ml Oral.Susp) 30 ml PO Q6H PRN PRN Reason: Heartburn/Nausea Clozapine (Clozapine 100 Mg Tablet) 100 mg PO DAILY [facility] Last Admin: 04/03/24 08:58 Dose: 100 mg Clozapine (Clozapine 100 Mg Tablet) 300 mg PO BEDTIME [facility] Last Admin: 04/02/24 22:44 Dose: Not Given Clozapine (Clozapine 100 Mg Tablet) 100 mg PO DAILY@1230 [facility] Last Admin: 04/03/24 12:14 Dose: Not Given Famotidine (Famotidine 20 Mg Tablet) 20 mg PO DAILY [facility] Last Admin: 04/03/24 08:58 Dose: 20 mg Hydroxyzine HCl (Hydroxyzine Hcl 25 Mg Tablet) 25 mg PO Q6H PRN PRN Reason: Anxiety Last Admin: 03/29/24 21:45 Dose: 25 mg Lamotrigine (Lamotrigine 25 Mg Tablet) 50 mg PO BID [facility] Last Admin: 04/03/24 08:58 Dose: 50 mg Levothyroxine Sodium (Levothyroxine Sodium 75 Mcg Tablet) 75 mcg PO DAILY@0600 [facility] Last Admin: 04/03/24 08:24 Dose: Not Given Magnesium Hydroxide (Milk Of Magnesia 30 Ml Oral.Susp) 30 ml PO BID PRN PRN Reason: Constipation Last Admin: 03/14/24 11:16 Dose: 30 ml Nicotine Polacrilex (Nicotine Polacrilex 2 Mg Gum) 2 mg BUCCAL Q2H PRN PRN Reason: Nicotine Cravings Polyethylene Glycol (Polyethylene Glycol 3350 17 Gm Powd.Pack) 17 gm PO DAILY PRN PRN Reason: Constipation Risperidone (Risperidone 3 Mg Tablet) 6 mg PO BID [facility] Last Admin: 04/03/24 08:58 Dose: 6 mg Senna (Sennosides 8.6 Mg Tablet) 8.6 mg PO DAILY PRN PRN Reason: Constipation Last Admin: 03/11/24 20:25 Dose: 8.6 mg Trazodone HCl (Trazodone Hcl 50 Mg Tablet) 50 mg PO BEDTIME MRX1 PRN PRN Reason: Insomnia Last Admin: 03/29/24 21:45 Dose: 50 mg Allergies Allergies Allergy/AdvReac Type Severity Reaction Status Date / Time trifluoperazine Allergy Unknown Verified 03/11/24 14:16 [From Stelazine] Assessment & Plan Assessment & Plan (1) Pre-op evaluation: Status: Acute Code(s): Z01.818 - Encounter for other preprocedural examination Plan Patient is a 73-year-old female with a PMH significant for HTN, post op VTE 2 years ago, hypothyroidism, and mood disorder who was admitted to [facility] after eloping from [facility] and walking into traffic on purpose. Patient apparently believes a friend is writing a horrible story about and does not want to live after everyone reads the book as she believes everyone will hate her. Hospitalist consult for ECT risk stratification. ECT risk stratification Previously underwent ECT without complications in 1998 Currently no significant medical complaints or PMH EKG from 7 days prior at time of admission negative for ischemia RCRI 0 points, class I risk Will repeat EKG before completing risk stratification Plan 1. We will try to gather collateral information we are going to try to contact Dr. Sanchez. 2. Continue with clozapine, we are titrating up slowly to target psychosis. At this moment she is receiving 100 mg p.o. b.i.d. and 300 p.o. q.h.s. and Risperdal is max out at 2 6 mg p.o. b.i.d. 3. We will consider ECT, will discuss with the family, family meeting over the phone on 03/25. The patient has refused ECT. 4. We will start doing affirmation of healthcare proxy. 5. She had been noncompliant with medications for the last 2 days and she looks nearly catatonic. We will consider ECT with the team Reason for continued inpatient stay Substantial Risk for: inability to function, rapid decompensation and med/psych decompensation Time Spent With Patient Time: Total time managing care of this patient today __20__ minutes.
[2024-04-03 19:49] VITALS: BP 117/79; PULSE 93; RESP 16; TEMP 36.1; O2SAT 99
[2024-04-03] MEDS: cloZAPine 100 MG TABLET 300 MG PO (20:16)
--- NOTE | 2024-04-04 06:45 | P.PNPSI_ITS ---
Subjective Subjective Date of Service: 04/04/24 Reason For Visit: Psychosis Interim History: The nursing staff reported the patient remains in her bed most of the time, isolative seclusive internally preoccupied. She is at the highest dose of risperidone and Clozaril with no response. We are affirmed healthcare proxy so we can do ECT. On interview the patient is minimally interactive remains internally preoccupied. Looks like that she is going into catatonia. Mental Status Exam Mental Status Exam Patient Appearance: Appropriate Patient Orientation: Person and Situation Level of Consciousness: Awake and Appropriate Mood Description: Withdrawn Affect Description: Blunted Patient Cognition Impaired: Yes Ability to Follow Directions: Fair Speech Pattern: Impoverished Hallucinations: Auditory Delusions: Paranoid Ideation and Ideas of Reference Thought Process: Distracted and Slowed Thinking Thought Content: positive for Poverty of Content and positive for Thought Blocking Judgement: Poor Diagnostics Vital Signs (24Hr): Vital Signs - 24 hr 04/03/24 08:50 04/03/24 19:49 Temperature 97 F 97 F Pulse Rate 86 93 Respiratory Rate 15 16 Blood Pressure 120/74 117/79 Pulse Oximetry 98 99 Oxygen Delivery Method Room Air Room Air BMI result Body Mass Index 31.3 Labs 03/11/24 11:07 03/13/24 08:18 Labs: Laboratory Results - last 48 hr 04/03/24 07:40 Absolute Neuts (auto) 5.0 Imaging Radiology Impressions: ITS Impressions Head CT 03/18/24 09:42 IMPRESSION: 1. No evidence of acute intracranial hemorrhage or edematous territorial infarction. 2. Mild to moderate underlying microangiopathy. 3. Arachnoid cyst in the right middle cranial fossa. Electronically signed by: Mino Arriaga DO 03/18/2024 06:26 PM EST RP Head CT 03/19/24 01:36 IMPRESSION: 1. Left frontal scalp soft tissue swelling. 2. No acute intracranial process seen. 3. Stable right middle cranial fossa arachnoid cyst. Electronically signed by: Andreas Olsen MD 03/19/2024 02:08 AM EST RP Medications Medications Current Medications Acetaminophen (Acetaminophen 325 Mg Tablet) 650 mg PO Q6H PRN PRN Reason: Headache/Pain Mild Scale (1-3) Al Hydroxide/Mg Hydroxide (Magnesium Hydrox/Alum Hydrox 30 Ml Oral.Susp) 30 ml PO Q6H PRN PRN Reason: Heartburn/Nausea Clozapine (Clozapine 100 Mg Tablet) 100 mg PO DAILY [facility] Last Admin: 04/03/24 08:58 Dose: 100 mg Clozapine (Clozapine 100 Mg Tablet) 300 mg PO BEDTIME [facility] Last Admin: 04/03/24 20:16 Dose: 300 mg Clozapine (Clozapine 100 Mg Tablet) 100 mg PO DAILY@1230 [facility] Last Admin: 04/03/24 12:14 Dose: Not Given Famotidine (Famotidine 20 Mg Tablet) 20 mg PO DAILY [facility] Last Admin: 04/03/24 08:58 Dose: 20 mg Hydroxyzine HCl (Hydroxyzine Hcl 25 Mg Tablet) 25 mg PO Q6H PRN PRN Reason: Anxiety Last Admin: 03/29/24 21:45 Dose: 25 mg Lamotrigine (Lamotrigine 25 Mg Tablet) 50 mg PO BID [facility] Last Admin: 04/03/24 20:16 Dose: 50 mg Levothyroxine Sodium (Levothyroxine Sodium 75 Mcg Tablet) 75 mcg PO DAILY@0600 [facility] Last Admin: 04/03/24 08:24 Dose: Not Given Magnesium Hydroxide (Milk Of Magnesia 30 Ml Oral.Susp) 30 ml PO BID PRN PRN Reason: Constipation Last Admin: 03/14/24 11:16 Dose: 30 ml Nicotine Polacrilex (Nicotine Polacrilex 2 Mg Gum) 2 mg BUCCAL Q2H PRN PRN Reason: Nicotine Cravings Polyethylene Glycol (Polyethylene Glycol 3350 17 Gm Powd.Pack) 17 gm PO DAILY PRN PRN Reason: Constipation Risperidone (Risperidone 3 Mg Tablet) 6 mg PO BID [facility] Last Admin: 04/03/24 20:16 Dose: 6 mg Senna (Sennosides 8.6 Mg Tablet) 8.6 mg PO DAILY PRN PRN Reason: Constipation Last Admin: 03/11/24 20:25 Dose: 8.6 mg Trazodone HCl (Trazodone Hcl 50 Mg Tablet) 50 mg PO BEDTIME MRX1 PRN PRN Reason: Insomnia Last Admin: 03/29/24 21:45 Dose: 50 mg Allergies Allergies Allergy/AdvReac Type Severity Reaction Status Date / Time trifluoperazine Allergy Unknown Verified 03/11/24 14:16 [From Stelaruizne] Assessment & Plan Assessment & Plan (1) Pre-op evaluation: Status: Acute Code(s): Z01.818 - Encounter for other preprocedural examination Plan Patient is a 73-year-old female with a PMH significant for HTN, post op VTE 2 years ago, hypothyroidism, and mood disorder who was admitted to [facility] after eloping from [facility] and walking into traffic on purpose. Patient apparently believes a friend is writing a horrible story about and does not want to live after everyone reads the book as she believes everyone will hate her. Hospitalist consult for ECT risk stratification. ECT risk stratification Previously underwent ECT without complications in 1998 Currently no significant medical complaints or PMH EKG from 7 days prior at time of admission negative for ischemia RCRI 0 points, class I risk Will repeat EKG before completing risk stratification Plan 1. We will try to gather collateral information we are going to try to contact Dr. Sanchez. 2. Continue with clozapine, we are titrating up slowly to target psychosis. At this moment she is receiving 100 mg p.o. b.i.d. and 300 p.o. q.h.s. and Risperdal is max out at 2 6 mg p.o. b.i.d. 3. We will consider ECT, will discuss with the family, family meeting over the phone on 03/25. The patient has refused ECT. 4. We will start doing affirmation of healthcare proxy. 5. She had been noncompliant with medications for the last 2 days and she looks nearly catatonic. We will consider ECT with the team Reason for continued inpatient stay Substantial Risk for: inability to function, rapid decompensation and med/psych decompensation Time Spent With Patient Time: Total time managing care of this patient today ___20_ minutes.
[2024-04-04 07:48] VITALS: BP 104/70; PULSE 83; RESP 16; TEMP 36; O2SAT 99
[2024-04-04] MEDS: risperiDONE 3 MG TABLET 6 MG PO ×2 (08:42→20:38)
[2024-04-04] MEDS: Famotidine 20 MG TABLET PO (08:42)
[2024-04-04] MEDS: Levothyroxine Sodium 75 MCG TABLET PO (08:42)
[2024-04-04] MEDS: cloZAPine 100 MG TABLET PO ×2 (08:42→12:01)
[2024-04-04] MEDS: lamoTRIgine 25 MG TABLET 50 MG PO ×2 (08:43→20:39)
[2024-04-04] MEDS: traZODone HCL 50 MG TABLET PO (20:39)
[2024-04-04] MEDS: cloZAPine 100 MG TABLET 300 MG PO (20:39)
[2024-04-04] MEDS: hydrOXYzine HCL 25 MG TABLET PO (20:39)
--- NOTE | 2024-04-05 | ECG_ITS ---
Test Reason : Unwitnessed fall Blood Pressure : / mmHG Vent. Rate : 089 BPM Atrial Rate : 089 BPM P-R Int : 138 ms QRS Dur : 090 ms QT Int : 414 ms P-R-T Axes : 055 038 043 degrees QTc Int : 503 ms Artifact in tracing Normal sinus rhythm Nonspecific T wave abnormality Prolonged QT Abnormal ECG When compared with ECG of 20-MAR-2024 21:12, QT has lengthened Referred By: Salty Melton Electronically Signed By:GENIA CASILLAS
[2024-04-05] MEDS: Levothyroxine Sodium 75 MCG TABLET PO (05:54)
--- NOTE | 2024-04-05 06:46 | P.PNPSI_ITS ---
Subjective Subjective Date of Service: 04/05/24 Reason For Visit: Psychosis Subjective Notes: Conditional Voluntary Healthcare Proxy: Yes Interim History: The nursing staff reported the patient remains isolative in her room, she looks internally preoccupied even though that she is at the highest dose of Clozaril Risperdal. On interview the patient denies new symptoms, we are waiting for the information of the healthcare proxy. Mental Status Exam Mental Status Exam Patient Appearance: Appropriate Patient Orientation: Person and Situation Level of Consciousness: Awake and Appropriate Patient Behavior: Guarded and Passive Mood Description: Withdrawn Affect Description: Constricted Patient Cognition Impaired: Yes Ability to Follow Directions: Good Speech Pattern: Clear Hallucinations: None Delusions: Paranoid Ideation and Ideas of Reference Thought Process: Distracted and Slowed Thinking Thought Content: positive for Poverty of Content and positive for Thought Blocking Judgement: Poor Diagnostics Vital Signs (24Hr): Vital Signs - 24 hr 04/04/24 07:48 Temperature 96.8 F Pulse Rate 83 Respiratory Rate 16 Blood Pressure 104/70 Pulse Oximetry 99 Oxygen Delivery Method Room Air BMI result Body Mass Index 31.3 Labs 03/11/24 11:07 03/13/24 08:18 Labs: Laboratory Results - last 48 hr 04/03/24 07:40 Absolute Neuts (auto) 5.0 Imaging Radiology Impressions: ITS Impressions Head CT 03/18/24 09:42 IMPRESSION: 1. No evidence of acute intracranial hemorrhage or edematous territorial infarction. 2. Mild to moderate underlying microangiopathy. 3. Arachnoid cyst in the right middle cranial fossa. Electronically signed by: Mino Arriaga DO 03/18/2024 06:26 PM EST RP Head CT 03/19/24 01:36 IMPRESSION: 1. Left frontal scalp soft tissue swelling. 2. No acute intracranial process seen. 3. Stable right middle cranial fossa arachnoid cyst. Electronically signed by: Andreas Olsen MD 03/19/2024 02:08 AM EST RP Medications Medications Current Medications Acetaminophen (Acetaminophen 325 Mg Tablet) 650 mg PO Q6H PRN PRN Reason: Headache/Pain Mild Scale (1-3) Al Hydroxide/Mg Hydroxide (Magnesium Hydrox/Alum Hydrox 30 Ml Oral.Susp) 30 ml PO Q6H PRN PRN Reason: Heartburn/Nausea Clozapine (Clozapine 100 Mg Tablet) 100 mg PO DAILY [facility] Last Admin: 04/04/24 08:42 Dose: 100 mg Clozapine (Clozapine 100 Mg Tablet) 300 mg PO BEDTIME [facility] Last Admin: 04/04/24 20:39 Dose: 300 mg Clozapine (Clozapine 100 Mg Tablet) 100 mg PO DAILY@1230 [facility] Last Admin: 04/04/24 12:01 Dose: 100 mg Famotidine (Famotidine 20 Mg Tablet) 20 mg PO DAILY [facility] Last Admin: 04/04/24 08:42 Dose: 20 mg Hydroxyzine HCl (Hydroxyzine Hcl 25 Mg Tablet) 25 mg PO Q6H PRN PRN Reason: Anxiety Last Admin: 04/04/24 20:39 Dose: 25 mg Lamotrigine (Lamotrigine 25 Mg Tablet) 50 mg PO BID [facility] Last Admin: 04/04/24 20:39 Dose: 50 mg Levothyroxine Sodium (Levothyroxine Sodium 75 Mcg Tablet) 75 mcg PO DAILY@0600 [facility] Last Admin: 04/05/24 05:54 Dose: 75 mcg Magnesium Hydroxide (Milk Of Magnesia 30 Ml Oral.Susp) 30 ml PO BID PRN PRN Reason: Constipation Last Admin: 03/14/24 11:16 Dose: 30 ml Nicotine Polacrilex (Nicotine Polacrilex 2 Mg Gum) 2 mg BUCCAL Q2H PRN PRN Reason: Nicotine Cravings Polyethylene Glycol (Polyethylene Glycol 3350 17 Gm Powd.Pack) 17 gm PO DAILY PRN PRN Reason: Constipation Risperidone (Risperidone 3 Mg Tablet) 6 mg PO BID [facility] Last Admin: 04/04/24 20:38 Dose: 6 mg Senna (Sennosides 8.6 Mg Tablet) 8.6 mg PO DAILY PRN PRN Reason: Constipation Last Admin: 03/11/24 20:25 Dose: 8.6 mg Trazodone HCl (Trazodone Hcl 50 Mg Tablet) 50 mg PO BEDTIME MRX1 PRN PRN Reason: Insomnia Last Admin: 04/04/24 20:39 Dose: 50 mg Allergies Allergies Allergy/AdvReac Type Severity Reaction Status Date / Time trifluoperazine Allergy Unknown Verified 03/11/24 14:16 [From Stelazine] Assessment & Plan Assessment & Plan (1) Pre-op evaluation: Status: Acute Code(s): Z01.818 - Encounter for other preprocedural examination Plan Patient is a 73-year-old female with a PMH significant for HTN, post op VTE 2 years ago, hypothyroidism, and mood disorder who was admitted to [facility] after eloping from [facility] and walking into traffic on purpose. Patient apparently believes a friend is writing a horrible story about and does not want to live after everyone reads the book as she believes everyone will hate her. Hospitalist consult for ECT risk stratification. ECT risk stratification Previously underwent ECT without complications in 1998 Currently no significant medical complaints or PMH EKG from 7 days prior at time of admission negative for ischemia RCRI 0 points, class I risk Will repeat EKG before completing risk stratification Plan 1. We will try to gather collateral information we are going to try to contact Dr. Sanchez. 2. Continue with clozapine, we are titrating up slowly to target psychosis. At this moment she is receiving 100 mg p.o. b.i.d. and 300 p.o. q.h.s. and Risperdal is max out at 2 6 mg p.o. b.i.d. 3. We will consider ECT, will discuss with the family, family meeting over the phone on 03/25. The patient has refused ECT. 4. We will start doing affirmation of healthcare proxy. 5. She had been noncompliant with medications for the last 2 days and she looks nearly catatonic. We will consider ECT with the team Reason for continued inpatient stay Substantial Risk for: inability to function, rapid decompensation and med/psych decompensation Time Spent With Patient Time: Total time managing care of this patient today __20__ minutes.
[2024-04-05 09:30] VITALS: BP 153/72; PULSE 77; RESP 14; TEMP 36; O2SAT 99
[2024-04-05] MEDS: risperiDONE 3 MG TABLET 6 MG PO ×2 (09:31→20:35)
[2024-04-05] MEDS: Famotidine 20 MG TABLET PO (09:31)
[2024-04-05] MEDS: cloZAPine 100 MG TABLET PO ×2 (09:32→14:36)
[2024-04-05] MEDS: lamoTRIgine 25 MG TABLET 50 MG PO ×2 (09:32→20:35)
[2024-04-05 15:45] LABS: Hematocrit 35.8 % (37.0-47.0); Mean Corpuscular HGB Conc 33.5 g/dl (31.0-35.0); Mean Corpuscular Hemoglobin 30.5 pg (27.0-33.0); Mean Corpuscular Volume 90.9 fL (80.0-98.0); Mean Platelet Volume 10.5 fL (9.4-12.3); Platelet Count 208 X10*3/uL (160-400); Red Blood Count 3.94 X10*6/uL (4.20-5.50); Red Cell Distribution Width 13.7 % (11.0-16.0); White Blood Count 6.6 X10*3/uL (4.8-10.8)
[2024-04-05 15:57] LABS: Glucose, Whole Blood 100 mg/dL (60-115)
[2024-04-05 16:17] LABS: Albumin Level 3.9 g/dL (3.5-5.0); Anion Gap 17 (12-20); Aspartate Amino Transferase 21 U/L (5-31); Bilirubin Total 0.4 mg/dL (0.0-1.0); Blood Urea Nitrogen 17 mg/dL (9-16); Calcium 9.8 mg/dL (8.4-10.2); Carbon Dioxide 25 mmol/L (22-29); Chloride 106 mmol/L (96-108); Creatinine Clr Calc Pharmacy 37.2; Estimated Glomerular Filt Rate 34; Glucose Random 74 mg/dL (60-115); Potassium 3.5 mmol/L (3.3-5.1); Sodium 144 mmol/L (135-145); Total Protein 5.8 g/dL (6.5-8.0)
[2024-04-05 16:30] LABS: Alanine Aminotransferase 8 U/L (0-31); Alkaline Phosphatase 127 U/L (39-117)
--- NOTE | 2024-04-05 16:30 | P.EN_ITS ---
Event Note Date of Service: 04/05/24 Event Note: Rapid response called for unwitnessed fall for 74-year-old female admitted to [facility]. Pt reports she tripped and fell while exiting the bathroom, striking the right side of her head on the floor. Pt complains of right-sided headache and some lightheadedness and dizziness with standing. No other medical complaints. Denies acute vision changes. No shoulder, elbow, wrist, hip, knee, or ankle pain. Denies fever, chills, nausea, vomiting, abdominal pain. No ch est pressure/pain, or palpitations. Denies shortness or breath or difficulty breathing. Patient's BP noted to be in the 80s/50s both automatic and manual. Staff reports patient has not been eating or drinking much for the past few weeks. HR 92, in line with previous readings. POC 100. Plan: Will check CBC, CMP, EKG, and CT of head, and will administer 1L bolus of IVF. Time Spent With Patient Time: Total time managing care of this patient today ____ minutes.
[2024-04-05] MEDS: 0.9 % Sodium Chloride 1,000 ML 999 ML IV (16:50)
--- NOTE | 2024-04-05 18:26 | PC.NURSE ---
Alerted by pt's roommate that pt. had fallen in her room. This RN reported to pt. room, where pt. had gotten herself off of the floor and was sitting on the edge of the bed. She confirmed that she had fallen and struck her right confucianism on the wall on the way down. Rapid response called. Pt. assessed by responding providers, who ordered head CT, labs, and 1000 CC NS bolus for finding of hypotension and dizziness. Pt. denied pain and able to move all extremities. Neuro checks WNL. CT and labs negative and normotensive after fluid bolus. Nursing supervisor filling and packing, Dr. Cerda, and HCP Parth Holbrook notified. Pt. placed on bed alarm and 5 minute checks.
[2024-04-05 20:00] VITALS: BP 143/89; PULSE 78; RESP 18; TEMP 36.1; O2SAT 98
[2024-04-05] MEDS: cloZAPine 100 MG TABLET 300 MG PO (20:35)
[2024-04-05] MEDS: traZODone HCL 50 MG TABLET PO (20:35)
[2024-04-05] MEDS: hydrOXYzine HCL 25 MG TABLET PO (20:35)
--- NOTE | 2024-04-06 | ECG_ITS ---
Test Reason : hypotensive Blood Pressure : / mmHG Vent. Rate : 084 BPM Atrial Rate : 084 BPM P-R Int : 136 ms QRS Dur : 104 ms QT Int : 412 ms P-R-T Axes : 067 047 050 degrees QTc Int : 486 ms Normal sinus rhythm Nonspecific T wave abnormality Prolonged QT Abnormal ECG When compared with ECG of 06-APR-2024 21:27, No significant change was found Referred By: Radha Spencer Electronically Signed By:GENIA CASILLAS
[2024-04-06] MEDS: Levothyroxine Sodium 75 MCG TABLET PO (05:39)
--- NOTE | 2024-04-06 08:00 | ECG_ITS ---
Test Reason : Previous with prolonged QTc Blood Pressure : / mmHG Vent. Rate : 084 BPM Atrial Rate : 084 BPM P-R Int : 138 ms QRS Dur : 102 ms QT Int : 396 ms P-R-T Axes : 068 047 048 degrees QTc Int : 467 ms Normal sinus rhythm Nonspecific T wave abnormality Abnormal ECG When compared with ECG of 05-APR-2024 15:41, No significant change was found Referred By: Radha Spencer Electronically Signed By:GENIA CASILLAS
[2024-04-06 08:11] VITALS: BP 108/78; PULSE 80; RESP 16; TEMP 36.1; O2SAT 97
[2024-04-06] MEDS: Famotidine 20 MG TABLET PO (08:14)
[2024-04-06] MEDS: risperiDONE 3 MG TABLET 6 MG PO ×2 (08:14→20:51)
[2024-04-06] MEDS: cloZAPine 100 MG TABLET PO ×2 (08:15→12:16)
[2024-04-06] MEDS: lamoTRIgine 25 MG TABLET 50 MG PO ×2 (08:15→20:51)
--- NOTE | 2024-04-06 13:54 | P.PNPSI_ITS ---
Subjective Subjective Date of Service: 04/06/24 Reason For Visit: Psychosis Subjective Notes: Conditional Voluntary Interim History: The nursing staff reported the patient felt yesterday and she was fully workout by the hospitalist we CT scan and others. On interview the patient denies new symptoms she reported that she fell, internally preoccupied but easily redirectable. Mental Status Exam Mental Status Exam Patient Appearance: Appropriate Patient Orientation: Person and Situation Level of Consciousness: Awake and Appropriate Patient Behavior: Guarded and Passive Mood Description: Withdrawn Affect Description: Constricted Patient Cognition Impaired: Yes Ability to Follow Directions: Good Speech Pattern: Clear Hallucinations: None Delusions: Paranoid Ideation and Ideas of Reference Thought Process: Distracted and Slowed Thinking Thought Content: positive for [place] and positive for Poverty of Content Judgement: Fair Diagnostics Vital Signs (24Hr): Vital Signs - 24 hr 04/05/24 20:00 04/06/24 08:11 Temperature 97.0 F 96.9 F Pulse Rate 78 80 Respiratory Rate 18 16 Blood Pressure 143/89 H 108/78 Pulse Oximetry 98 97 Oxygen Delivery Method Room Air Room Air BMI result Body Mass Index 31.3 Labs 04/05/24 15:38 04/05/24 15:38 Labs: Laboratory Results - last 48 hr 04/05/24 04/05/24 15:20 15:38 WBC 6.6 RBC 3.94 L Hgb 12.0 Hct 35.8 L MCV 90.9 MCH 30.5 MCHC 33.5 RDW 13.7 Plt Count 208 MPV 10.5 Absolute Nucleated RBC 0.000 Nucleated RBC % (auto) 0.0 Sodium 144 Potassium 3.5 Chloride 106 Carbon Dioxide 25 Anion Gap 17 BUN 17 H Creatinine 1.50 H Estim Creat Clear Calc 37.2 Estimated GFR 34 POC Glucose 100 Random Glucose 74 Calcium 9.8 Total Bilirubin 0.4 AST 21 ALT 8 Alkaline Phosphatase 127 H Total Protein 5.8 L Albumin 3.9 Imaging Radiology Impressions: ITS Impressions Head CT 03/18/24 09:42 IMPRESSION: 1. No evidence of acute intracranial hemorrhage or edematous territorial infarction. 2. Mild to moderate underlying microangiopathy. 3. Arachnoid cyst in the right middle cranial fossa. Electronically signed by: Mino Arriaga DO 03/18/2024 06:[address] 03/19/24 01:36 IMPRESSION: 1. Left frontal scalp soft tissue swelling. 2. No acute intracranial process seen. 3. Stable right middle cranial fossa arachnoid cyst. Electronically signed by: Andreas Olsen MD 03/19/2024 02:08 AM EST RP Head CT 04/05/24 16:20 IMPRESSION: 1. No acute intracranial hemorrhage or mass effect. 2. Stable right middle cranial fossa arachnoid cyst. Electronically signed by: Getachew Arana MD 04/05/2024 05:15 PM EST RP Medications Medications Current Medications Acetaminophen (Acetaminophen 325 Mg Tablet) 650 mg PO Q6H PRN PRN Reason: Headache/Pain Mild Scale (1-3) Al Hydroxide/Mg Hydroxide (Magnesium Hydrox/Alum Hydrox 30 Ml Oral.Susp) 30 ml PO Q6H PRN PRN Reason: Heartburn/Nausea Clozapine (Clozapine 100 Mg Tablet) 100 mg PO DAILY [facility] Last Admin: 04/06/24 08:15 Dose: 100 mg Clozapine (Clozapine 100 Mg Tablet) 300 mg PO BEDTIME [facility] Last Admin: 04/05/24 20:35 Dose: 300 mg Clozapine (Clozapine 100 Mg Tablet) 100 mg PO DAILY@1230 [facility] Last Admin: 04/06/24 12:16 Dose: 100 mg Famotidine (Famotidine 20 Mg Tablet) 20 mg PO DAILY [facility] Last Admin: 04/06/24 08:14 Dose: 20 mg Hydroxyzine HCl (Hydroxyzine Hcl 25 Mg Tablet) 25 mg PO Q6H PRN PRN Reason: Anxiety Last Admin: 04/05/24 20:35 Dose: 25 mg Lamotrigine (Lamotrigine 25 Mg Tablet) 50 mg PO BID [facility] Last Admin: 04/06/24 08:15 Dose: 50 mg Levothyroxine Sodium (Levothyroxine Sodium 75 Mcg Tablet) 75 mcg PO DAILY@0600 [facility] Last Admin: 04/06/24 05:39 Dose: 75 mcg Magnesium Hydroxide (Milk Of Magnesia 30 Ml Oral.Susp) 30 ml PO BID PRN PRN Reason: Constipation Last Admin: 03/14/24 11:16 Dose: 30 ml Nicotine Polacrilex (Nicotine Polacrilex 2 Mg Gum) 2 mg BUCCAL Q2H PRN PRN Reason: Nicotine Cravings Polyethylene Glycol (Polyethylene Glycol 3350 17 Gm Powd.Pack) 17 gm PO DAILY PRN PRN Reason: Constipation Risperidone (Risperidone 3 Mg Tablet) 6 mg PO BID [facility] Last Admin: 04/06/24 08:14 Dose: 6 mg Senna (Sennosides 8.6 Mg Tablet) 8.6 mg PO DAILY PRN PRN Reason: Constipation Last Admin: 03/11/24 20:25 Dose: 8.6 mg Trazodone HCl (Trazodone Hcl 50 Mg Tablet) 50 mg PO BEDTIME MRX1 PRN PRN Reason: Insomnia Last Admin: 04/05/24 20:35 Dose: 50 mg Allergies Allergies Allergy/AdvReac Type Severity Reaction Status Date / Time trifluoperazine Allergy Unknown Verified 03/11/24 14:16 [From Stelazine] Assessment & Plan Assessment & Plan (1) Pre-op evaluation: Status: Acute Code(s): Z01.818 - Encounter for other preprocedural examination Plan Patient is a 73-year-old female with a PMH significant for HTN, post op VTE 2 years ago, hypothyroidism, and mood disorder who was admitted to [facility] after eloping from [facility] and walking into traffic on purpose. Patient apparently believes a friend is writing a horrible story about and does not want to live after everyone reads the book as she believes everyone will hate her. Hospitalist consult for ECT risk stratification. ECT risk stratification Previously underwent ECT without complications in 1998 Currently no significant medical complaints or PMH EKG from 7 days prior at time of admission negative for ischemia RCRI 0 points, class I risk Will repeat EKG before completing risk stratification Plan 1. We will try to gather collateral information we are going to try to contact Dr. Sanchez. 2. Continue with clozapine, we are titrating up slowly to target psychosis. At this moment she is receiving 100 mg p.o. b.i.d. and 300 p.o. q.h.s. and Risperdal is max out at 2 6 mg p.o. b.i.d. 3. We will consider ECT, will discuss with the family, family meeting over the phone on 03/25. The patient has refused ECT. 4. We will start doing affirmation of healthcare proxy. 5. She had been noncompliant with medications for the last 2 days and she looks nearly catatonic. We will consider ECT with the team Reason for continued inpatient stay Substantial Risk for: inability to function, rapid decompensation and med/psych decompensation Time Spent With Patient Time: Total time managing care of this patient today __20__ minutes.
[2024-04-06 20:02] VITALS: BP 100/70; PULSE 89; RESP 17; TEMP 36.8; O2SAT 99
[2024-04-06] MEDS: cloZAPine 100 MG TABLET 300 MG PO (20:52)
[2024-04-06 22:00] VITALS: BP 118/81; PULSE 79
[2024-04-07 06:00] VITALS: BP 125/70; PULSE 80
[2024-04-07] MEDS: Levothyroxine Sodium 75 MCG TABLET PO (06:07)
[2024-04-07 07:55] VITALS: BP 129/68; PULSE 82; RESP 18; TEMP 36.6; O2SAT 98
--- NOTE | 2024-04-07 08:45 | HO.PSYEVENT2 ---
Documented by User: Radha Spencer APRN 04/07/24 08:49 Event Note Date of Service: 04/07/24 Psych On-Call Event Note: Notified by team, Mary Beth Pacheco RN at 802pm BBP 75/55 89. 17 O2Sat 99. Repeat 100/70R and 110/74 L. Pt reported feeling dizzy,weak and cannot walk well. EKG and Ortho VS q8 hours ordered. Pt had already had HS Clozapine/Risperdal. Time Spent With Patient Time: Total time managing care of this patient today ____ minutes. Documented by User: Emil Krishna MD 04/14/24 21:15 Event Note Date of Service: 04/14/24
[2024-04-07] MEDS: Famotidine 20 MG TABLET PO (09:16)
[2024-04-07] MEDS: risperiDONE 3 MG TABLET 6 MG PO ×2 (09:16→20:47)
[2024-04-07] MEDS: lamoTRIgine 25 MG TABLET 50 MG PO ×2 (09:16→20:47)
[2024-04-07] MEDS: cloZAPine 100 MG TABLET PO ×2 (09:17→12:09)
[2024-04-07 14:00] VITALS: BP 100/58; PULSE 93
--- NOTE | 2024-04-07 16:25 | HO.PSYCHPN ---
Subjective Subjective Date of Service: 04/07/24 Reason For Visit: Psychosis Subjective Notes: Conditional Voluntary Healthcare Proxy: Yes Interim History: The nursing staff reported patient only ate snacks minimal engagement. She had been compliant with treatment. The long term care social worker reported that we are still waiting for the information of the healthcare proxy so far on interview the patient denies new symptoms internally preoccupied. Mental Status Exam Mental Status Exam Patient Appearance: Appropriate Patient Orientation: Person and Situation Level of Consciousness: Awake and Appropriate Patient Behavior: Guarded and Passive Mood Description: Withdrawn Affect Description: Constricted Patient Cognition Impaired: Yes Ability to Follow Directions: Good Speech Pattern: Clear Hallucinations: None Delusions: Paranoid Ideation and Ideas of Reference Thought Process: Distracted and Slowed Thinking Thought Content: positive for [place] and positive for Poverty of Content Judgement: Fair Diagnostics Vital Signs (24Hr): Vital Signs - 24 hr 04/06/24 20:02 04/06/24 22:00 04/07/24 06:00 Temperature 98.2 F Pulse Rate 89 79 80 Respiratory Rate 17 Blood Pressure 100/70 118/81 125/70 Pulse Oximetry 99 Oxygen Delivery Method Room Air 04/07/24 07:55 04/07/24 14:00 Temperature 97.8 F Pulse Rate 82 93 Respiratory Rate 18 Blood Pressure 129/68 100/58 L Pulse Oximetry 98 Oxygen Delivery Method Room Air BMI result Body Mass Index 31.3 Labs 04/05/24 15:38 04/05/24 15:38 Labs: Laboratory Results - last 48 hr 04/05/24 15:38 ALT 8 Alkaline Phosphatase 127 H Imaging Radiology Impressions: ITS Impressions Head CT 03/18/24 09:42 IMPRESSION: 1. No evidence of acute intracranial hemorrhage or edematous territorial infarction. 2. Mild to moderate underlying microangiopathy. 3. Arachnoid cyst in the right middle cranial fossa. Electronically signed by: Mino Arriaga DO 03/18/2024 06:26 PM EST RP Head CT 03/19/24 01:36 IMPRESSION: 1. Left frontal scalp soft tissue swelling. 2. No acute intracranial process seen. 3. Stable right middle cranial fossa arachnoid cyst. Electronically signed by: Andreas Olsen MD 03/19/2024 02:08 AM EST RP Head CT 04/05/24 16:20 IMPRESSION: 1. No acute intracranial hemorrhage or mass effect. 2. Stable right middle cranial fossa arachnoid cyst. Electronically signed by: Getachew Arana MD 04/05/2024 05:15 PM [facility] Medications Medications Current Medications Acetaminophen (Acetaminophen 325 Mg Tablet) 650 mg PO Q6H PRN PRN Reason: Headache/Pain Mild Scale (1-3) Al Hydroxide/Mg Hydroxide (Magnesium Hydrox/Alum Hydrox 30 Ml Oral.Susp) 30 ml PO Q6H PRN PRN Reason: Heartburn/Nausea Clozapine (Clozapine 100 Mg Tablet) 100 mg PO DAILY [facility] Last Admin: 04/07/24 09:17 Dose: 100 mg Clozapine (Clozapine 100 Mg Tablet) 300 mg PO BEDTIME [facility] Last Admin: 04/06/24 20:52 Dose: 300 mg Clozapine (Clozapine 100 Mg Tablet) 100 mg PO DAILY@1230 [facility] Last Admin: 04/07/24 12:09 Dose: 100 mg Famotidine (Famotidine 20 Mg Tablet) 20 mg PO DAILY [facility] Last Admin: 04/07/24 09:16 Dose: 20 mg Hydroxyzine HCl (Hydroxyzine Hcl 25 Mg Tablet) 25 mg PO Q6H PRN PRN Reason: Anxiety Last Admin: 04/05/24 20:35 Dose: 25 mg Lamotrigine (Lamotrigine 25 Mg Tablet) 50 mg PO BID [facility] Last Admin: 04/07/24 09:16 Dose: 50 mg Levothyroxine Sodium (Levothyroxine Sodium 75 Mcg Tablet) 75 mcg PO DAILY@0600 [facility] Last Admin: 04/07/24 06:07 Dose: 75 mcg Magnesium Hydroxide (Milk Of Magnesia 30 Ml Oral.Susp) 30 ml PO BID PRN PRN Reason: Constipation Last Admin: 03/14/24 11:16 Dose: 30 ml Nicotine Polacrilex (Nicotine Polacrilex 2 Mg Gum) 2 mg BUCCAL Q2H PRN PRN Reason: Nicotine Cravings Polyethylene Glycol (Polyethylene Glycol 3350 17 Gm Powd.Pack) 17 gm PO DAILY PRN PRN Reason: Constipation Risperidone (Risperidone 3 Mg Tablet) 6 mg PO BID [facility] Last Admin: 04/07/24 09:16 Dose: 6 mg Senna (Sennosides 8.6 Mg Tablet) 8.6 mg PO DAILY PRN PRN Reason: Constipation Last Admin: 03/11/24 20:25 Dose: 8.6 mg Trazodone HCl (Trazodone Hcl 50 Mg Tablet) 50 mg PO BEDTIME MRX1 PRN PRN Reason: Insomnia Last Admin: 04/05/24 20:35 Dose: 50 mg Allergies Allergies Allergy/AdvReac Type Severity Reaction Status Date / Time trifluoperazine Allergy Unknown Verified 03/11/24 14:16 [From Stelazine] Assessment & Plan Assessment & Plan (1) Pre-op evaluation: Status: Acute Code(s): Z01.818 - Encounter for other preprocedural examination Plan Patient is a 73-year-old female with a PMH significant for HTN, post op VTE 2 years ago, hypothyroidism, and mood disorder who was admitted to [facility] after eloping from [facility] and walking into traffic on purpose. Patient apparently believes a friend is writing a horrible story about and does not want to live after everyone reads the book as she believes everyone will hate her. Hospitalist consult for ECT risk stratification. ECT risk stratification Previously underwent ECT without complications in 1998 Currently no significant medical complaints or PMH EKG from 7 days prior at time of admission negative for ischemia RCRI 0 points, class I risk Will repeat EKG before completing risk stratification Plan 1. We will try to gather collateral information we are going to try to contact Dr. Sanchez. 2. Continue with clozapine, we are titrating up slowly to target psychosis. At this moment she is receiving 100 mg p.o. b.i.d. and 300 p.o. q.h.s. and Risperdal is max out at 2 6 mg p.o. b.i.d. 3. We will consider ECT, will discuss with the family, family meeting over the phone on 03/25. The patient has refused ECT. 4. We will start doing affirmation of healthcare proxy. 5. She had been noncompliant with medications for the last 2 days and she looks nearly catatonic. We will consider ECT with the team Reason for continued inpatient stay Substantial Risk for: inability to function, rapid decompensation and med/psych decompensation Time Spent With Patient Time: Total time managing care of this patient today __20__ minutes.
[2024-04-08 06:00] VITALS: BP 130/73; PULSE 81
[2024-04-08] MEDS: Levothyroxine Sodium 75 MCG TABLET PO (06:14)
[2024-04-08] MEDS: lamoTRIgine 25 MG TABLET 50 MG PO ×2 (08:51→20:14)
[2024-04-08] MEDS: cloZAPine 100 MG TABLET PO ×2 (08:51→12:07)
[2024-04-08] MEDS: Famotidine 20 MG TABLET PO (08:52)
[2024-04-08] MEDS: risperiDONE 3 MG TABLET 6 MG PO ×2 (08:52→20:14)
--- NOTE | 2024-04-08 13:26 | P.PNPSI_ITS ---
Subjective Subjective Date of Service: 04/08/24 Reason For Visit: Psychosis Subjective Notes: Conditional Voluntary Interim History: The nursing staff reported that she has refused her vital signs slept 7 hours. The manager social reported that [facility]. She is waiting for the hearing of information healthcare proxy. On interview the patient remains internally preoccupied no changes in her mental status. Mental Status Exam Mental Status Exam Patient Appearance: Appropriate Patient Orientation: Person and Situation Level of Consciousness: Awake Patient Behavior: Guarded and Passive Mood Description: Calm Affect Description: Blunted Patient Cognition Impaired: Yes Ability to Follow Directions: Fair Speech Pattern: Clear Hallucinations: None Delusions: Paranoid Ideation and Ideas of Reference Thought Process: Distracted and Slowed Thinking Thought Content: positive for [place] and positive for Poverty of Content Judgement: Poor Diagnostics Vital Signs (24Hr): Vital Signs - 24 hr 04/07/24 14:00 04/08/24 06:00 Pulse Rate 93 81 Blood Pressure 100/58 L 130/73 BMI result Body Mass Index 31.3 Labs 04/05/24 15:38 04/05/24 15:38 Imaging Radiology Impressions: ITS Impressions Head CT 03/18/24 09:42 IMPRESSION: 1. No evidence of acute intracranial hemorrhage or edematous territorial infarction. 2. Mild to moderate underlying microangiopathy. 3. Arachnoid cyst in the right middle cranial fossa. Electronically signed by: Mino Arriaga DO 03/18/2024 06:26 PM EST RP Head CT 03/19/24 01:36 IMPRESSION: 1. Left frontal scalp soft tissue swelling. 2. No acute intracranial process seen. 3. Stable right middle cranial fossa arachnoid cyst. Electronically signed by: Andreas Olsen MD 03/19/2024 02:08 AM EST RP Head CT 04/05/24 16:20 IMPRESSION: 1. No acute intracranial hemorrhage or mass effect. 2. Stable right middle cranial fossa arachnoid cyst. Electronically signed by: Getachew Arana MD 04/05/2024 05:15 PM EST RP Medications Medications Current Medications Acetaminophen (Acetaminophen 325 Mg Tablet) 650 mg PO Q6H PRN PRN Reason: Headache/Pain Mild Scale (1-3) Al Hydroxide/Mg Hydroxide (Magnesium Hydrox/Alum Hydrox 30 Ml Oral.Susp) 30 ml PO Q6H PRN PRN Reason: Heartburn/Nausea Clozapine (Clozapine 100 Mg Tablet) 100 mg PO DAILY [facility] Last Admin: 04/08/24 08:51 Dose: 100 mg Clozapine (Clozapine 100 Mg Tablet) 300 mg PO BEDTIME [facility] Last Admin: 04/06/24 20:52 Dose: 300 mg Clozapine (Clozapine 100 Mg Tablet) 100 mg PO DAILY@1230 [facility] Last Admin: 04/08/24 12:07 Dose: 100 mg Famotidine (Famotidine 20 Mg Tablet) 20 mg PO DAILY [facility] Last Admin: 04/08/24 08:52 Dose: 20 mg Hydroxyzine HCl (Hydroxyzine Hcl 25 Mg Tablet) 25 mg PO Q6H PRN PRN Reason: Anxiety Last Admin: 04/05/24 20:35 Dose: 25 mg Lamotrigine (Lamotrigine 25 Mg Tablet) 50 mg PO BID [facility] Last Admin: 04/08/24 08:51 Dose: 50 mg Levothyroxine Sodium (Levothyroxine Sodium 75 Mcg Tablet) 75 mcg PO DAILY@0600 [facility] Last Admin: 04/08/24 06:14 Dose: 75 mcg Magnesium Hydroxide (Milk Of Magnesia 30 Ml Oral.Susp) 30 ml PO BID PRN PRN Reason: Constipation Last Admin: 03/14/24 11:16 Dose: 30 ml Nicotine Polacrilex (Nicotine Polacrilex 2 Mg Gum) 2 mg BUCCAL Q2H PRN PRN Reason: Nicotine Cravings Polyethylene Glycol (Polyethylene Glycol 3350 17 Gm Powd.Pack) 17 gm PO DAILY PRN PRN Reason: Constipation Risperidone (Risperidone 3 Mg Tablet) 6 mg PO BID [facility] Last Admin: 04/08/24 08:52 Dose: 6 mg Senna (Sennosides 8.6 Mg Tablet) 8.6 mg PO DAILY PRN PRN Reason: Constipation Last Admin: 03/11/24 20:25 Dose: 8.6 mg Trazodone HCl (Trazodone Hcl 50 Mg Tablet) 50 mg PO BEDTIME MRX1 PRN PRN Reason: Insomnia Last Admin: 04/05/24 20:35 Dose: 50 mg Allergies Allergies Allergy/AdvReac Type Severity Reaction Status Date / Time trifluoperazine Allergy Unknown Verified 03/11/24 14:16 [From Stelazine] Assessment & Plan Assessment & Plan (1) Pre-op evaluation: Status: Acute Code(s): Z01.818 - Encounter for other preprocedural examination Plan Patient is a 73-year-old female with a PMH significant for HTN, post op VTE 2 years ago, hypothyroidism, and mood disorder who was admitted to [facility] after eloping from [facility] and walking into traffic on purpose. Patient apparently believes a friend is writing a horrible story about and does not want to live after everyone reads the book as she believes everyone will hate her. Hospitalist consult for ECT risk stratification. ECT risk stratification Previously underwent ECT without complications in 1998 Currently no significant medical complaints or PMH EKG from 7 days prior at time of admission negative for ischemia RCRI 0 points, class I risk Will repeat EKG before completing risk stratification Plan 1. We will try to gather collateral information we are going to try to contact Dr. Sanchez. 2. Continue with clozapine, we are titrating up slowly to target psychosis. At this moment she is receiving 100 mg p.o. b.i.d. and 300 p.o. q.h.s. and Risperdal is max out at 2 6 mg p.o. b.i.d. 3. We will consider ECT, will discuss with the family, family meeting over the phone on 03/25. The patient has refused ECT. 4. We will start doing affirmation of healthcare proxy. 5. She had been noncompliant with medications for the last 2 days and she looks nearly catatonic. We will consider ECT with the team Reason for continued inpatient stay Substantial Risk for: inability to function, rapid decompensation and med/psych decompensation Time Spent With Patient Time: Total time managing care of this patient today __20__ minutes.
[2024-04-08 20:00] VITALS: RESP 17
[2024-04-09] MEDS: Levothyroxine Sodium 75 MCG TABLET PO (06:04)
[2024-04-09 07:00] VITALS: BMI 24.4
[2024-04-09 08:00] VITALS: BP 135/69; PULSE 79; RESP 14; TEMP 36.4; O2SAT 98
[2024-04-09] MEDS: lamoTRIgine 25 MG TABLET 50 MG PO ×2 (08:26→21:12)
[2024-04-09] MEDS: Famotidine 20 MG TABLET PO (08:26)
[2024-04-09] MEDS: cloZAPine 100 MG TABLET PO ×2 (08:26→12:47)
[2024-04-09] MEDS: risperiDONE 3 MG TABLET 6 MG PO ×2 (08:27→21:12)
--- NOTE | 2024-04-09 08:42 | P.PNPSI_ITS ---
Subjective Subjective Date of Service: 04/09/24 Reason For Visit: Psychosis Subjective Notes: Conditional Voluntary Interim History: Pt in bed. She reports constipation and states she has not had BM in several days. WIll order KUB as pt may not be reliable historian. She denies any other concerns. She is taking medications. No overt delusional or psychotic symptoms noted but pt also very superficial. 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 No evidence of acute intracranial hemorrhage or edematous territorial infarction. 2. Mild to moderate underlying microangiopathy. 3. Arachnoid cyst in the right middle cranial fossa. Electronically signed by: Mino Arriaga DO 03/18/2024 06:26 PM EST RP Head CT 03/19/24 01:36 IMPRESSION: 1. Left frontal scalp soft tissue swelling. 2. No acute intracranial process seen. 3. Stable right middle cranial fossa arachnoid cyst. Electronically signed by: Andreas Olsen MD 03/19/2024 02:08 AM EST RP Head CT 04/05/24 16:20 IMPRESSION: 1. No acute intracranial hemorrhage or mass effect. 2. Stable right middle cranial fossa arachnoid cyst. Electronically signed by: Getachew Arana MD 04/05/2024 05:15 PM EST RP Medications Medications Current Medications Acetaminophen (Acetaminophen 325 Mg Tablet) 650 mg PO Q6H PRN PRN Reason: Headache/Pain Mild Scale (1-3) Al Hydroxide/Mg Hydroxide (Magnesium Hydrox/Alum Hydrox 30 Ml Oral.Susp) 30 ml PO Q6H PRN PRN Reason: Heartburn/Nausea Clozapine (Clozapine 100 Mg Tablet) 100 mg PO DAILY [facility] Last Admin: 04/09/24 08:26 Dose: 100 mg Clozapine (Clozapine 100 Mg Tablet) 300 mg PO BEDTIME [facility] Last Admin: 04/06/24 20:52 Dose: 300 mg Clozapine (Clozapine 100 Mg Tablet) 100 mg PO DAILY@1230 [facility] Last Admin: 04/08/24 12:07 Dose: 100 mg Famotidine (Famotidine 20 Mg Tablet) 20 mg PO DAILY [facility] Last Admin: 04/09/24 08:26 Dose: 20 mg Hydroxyzine HCl (Hydroxyzine Hcl 25 Mg Tablet) 25 mg PO Q6H PRN PRN Reason: Anxiety Last Admin: 04/05/24 20:35 Dose: 25 mg Lamotrigine (Lamotrigine 25 Mg Tablet) 50 mg PO BID [facility] Last Admin: 04/09/24 08:26 Dose: 50 mg Levothyroxine Sodium (Levothyroxine Sodium 75 Mcg Tablet) 75 mcg PO DAILY@0600 [facility] Last Admin: 04/09/24 06:04 Dose: 75 mcg Magnesium Hydroxide (Milk Of Magnesia 30 Ml Oral.Susp) 30 ml PO BID PRN PRN Reason: Constipation Last Admin: 03/14/24 11:16 Dose: 30 ml Nicotine Polacrilex (Nicotine Polacrilex 2 Mg Gum) 2 mg BUCCAL Q2H PRN PRN Reason: Nicotine Cravings Polyethylene Glycol (Polyethylene Glycol 3350 17 Gm Powd.Pack) 17 gm PO DAILY PRN PRN Reason: Constipation Risperidone (Risperidone 3 Mg Tablet) 6 mg PO BID [facility] Last Admin: 04/09/24 08:27 Dose: 6 mg Senna (Sennosides 8.6 Mg Tablet) 8.6 mg PO DAILY PRN PRN Reason: Constipation Last Admin: 03/11/24 20:25 Dose: 8.6 mg Trazodone HCl (Trazodone Hcl 50 Mg Tablet) 50 mg PO BEDTIME MRX1 PRN PRN Reason: Insomnia Last Admin: 04/05/24 20:35 Dose: 50 mg Allergies Allergies Allergy/AdvReac Type Severity Reaction Status Date / Time trifluoperazine Allergy Unknown Verified 03/11/24 14:16 [From Stelazine] Assessment & Plan Assessment & Plan (1) Schizophrenia: Status: Acute Code(s): F20.9 - Schizophrenia, unspecified Plan Patient is a 73-year-old female with a PMH significant for HTN, post op VTE 2 years ago, hypothyroidism, and mood disorder who was admitted to [facility] after eloping from [facility] and walking into traffic on purpose. Patient apparently believes a friend is writing a horrible story about and does not want to live after everyone reads the book as she believes everyone will hate her. Hospitalist consult for ECT risk stratification. ECT risk stratification Previously underwent ECT without complications in 1998 Currently no significant medical complaints or PMH EKG from 7 days prior at time of admission negative for ischemia RCRI 0 points, class I risk Will repeat EKG before completing risk stratification Plan 04/09- order KUB for constipation. continue all other meds. Reason for continued inpatient stay Substantial Risk for: inability to function Time Spent With Patient Time: Total time managing care of this patient today ____ minutes.
[2024-04-09] MEDS: Sennosides 8.6 MG TABLET PO (12:48)
--- NOTE | 2024-04-09 12:57 | PC.NURSE ---
Reports not having BM for weeks, but declined KUB. Abdomen soft, non tender, and with + bowel sounds X 4. Scheduled senna started.
--- NOTE | 2024-04-09 19:04 | PC.NURSE ---
Pt. reported to provider that she has not had a BM in several weeks. Denies nausea, discomfort. Adamantly refused to go for KUB. Abdomen soft, non-distended. Bowel sounds positive in all 4 quadrants. Started scheduled Senna. Later reports, I went a little bit.
[2024-04-09 20:00] VITALS: RESP 16
[2024-04-10] MEDS: Levothyroxine Sodium 75 MCG TABLET PO (05:52)
[2024-04-10 08:00] VITALS: RESP 16
[2024-04-10] MEDS: cloZAPine 100 MG TABLET PO ×2 (08:35→11:59)
[2024-04-10] MEDS: Famotidine 20 MG TABLET PO (08:35)
[2024-04-10] MEDS: risperiDONE 3 MG TABLET 6 MG PO ×2 (08:35→20:30)
[2024-04-10] MEDS: Sennosides 8.6 MG TABLET PO (08:35)
[2024-04-10] MEDS: lamoTRIgine 25 MG TABLET 50 MG PO ×2 (08:36→20:30)
--- NOTE | 2024-04-10 13:06 | P.PNPSI_ITS ---
Subjective Subjective Date of Service: 04/10/24 Reason For Visit: Psychosis Subjective Notes: Conditional Voluntary Interim History: The nursing staff reported the patient had been compliant with treatment, she slept 1 hour. Yesterday she complained of constipation and then later she refused a KUB. On interview the patient denies new symptoms. Waiting for affirmation of healthcare proxy. Mental Status Exam Mental Status Exam Patient Appearance: Appropriate Patient Orientation: Person and Situation Level of Consciousness: Awake and Appropriate Patient Behavior: Guarded and Passive Mood Description: Withdrawn Affect Description: Constricted Patient Cognition Impaired: Yes Ability to Follow Directions: Good Speech Pattern: Clear Hallucinations: None Delusions: Not Present Thought Process: Distracted and Slowed Thinking Thought Content: positive for Circumstantial Judgement: Fair Diagnostics Vital Signs (24Hr): Vital Signs - 24 hr 04/09/24 20:00 04/10/24 08:00 Respiratory Rate 16 16 BMI result Body Mass Index 24.4 Labs 04/05/24 15:38 04/05/24 15:38 Imaging Radiology Impressions: ITS Impressions Head CT 03/18/24 09:42 IMPRESSION: 1. No evidence of acute intracranial hemorrhage or edematous territorial infarction. 2. Mild to moderate underlying microangiopathy. 3. Arachnoid cyst in the right middle cranial fossa. Electronically signed by: Mino Arriaga DO 03/18/2024 06:26 PM EST RP Head CT 03/19/24 01:36 IMPRESSION: 1. Left frontal scalp soft tissue swelling. 2. No acute intracranial process seen. 3. Stable right middle cranial fossa arachnoid cyst. Electronically signed by: Andreas Olsen MD 03/19/2024 02:08 AM EST RP Head CT 04/05/24 16:20 IMPRESSION: 1. No acute intracranial hemorrhage or mass effect. 2. Stable right middle cranial fossa arachnoid cyst. Electronically signed by: Getachew Arana MD 04/05/2024 05:15 PM EST RP Medications Medications Current Medications Acetaminophen (Acetaminophen 325 Mg Tablet) 650 mg PO Q6H PRN PRN Reason: Headache/Pain Mild Scale (1-3) Al Hydroxide/Mg Hydroxide (Magnesium Hydrox/Alum Hydrox 30 Ml Oral.Susp) 30 ml PO Q6H PRN PRN Reason: Heartburn/Nausea Clozapine (Clozapine 100 Mg Tablet) 100 mg PO DAILY [facility] Last Admin: 04/10/24 08:35 Dose: 100 mg Clozapine (Clozapine 100 Mg Tablet) 300 mg PO BEDTIME [facility] Last Admin: 04/06/24 20:52 Dose: 300 mg Clozapine (Clozapine 100 Mg Tablet) 100 mg PO DAILY@1230 [facility] Last Admin: 04/10/24 11:59 Dose: 100 mg Famotidine (Famotidine 20 Mg Tablet) 20 mg PO DAILY [facility] Last Admin: 04/10/24 08:35 Dose: 20 mg Hydroxyzine HCl (Hydroxyzine Hcl 25 Mg Tablet) 25 mg PO Q6H PRN PRN Reason: Anxiety Last Admin: 04/05/24 20:35 Dose: 25 mg Lamotrigine (Lamotrigine 25 Mg Tablet) 50 mg PO BID [facility] Last Admin: 04/10/24 08:36 Dose: 50 mg Levothyroxine Sodium (Levothyroxine Sodium 75 Mcg Tablet) 75 mcg PO DAILY@0600 [facility] Last Admin: 04/10/24 05:52 Dose: 75 mcg Magnesium Hydroxide (Milk Of Magnesia 30 Ml Oral.Susp) 30 ml PO BID PRN PRN Reason: Constipation Last Admin: 03/14/24 11:16 Dose: 30 ml Nicotine Polacrilex (Nicotine Polacrilex 2 Mg Gum) 2 mg BUCCAL Q2H PRN PRN Reason: Nicotine Cravings Polyethylene Glycol (Polyethylene Glycol 3350 17 Gm Powd.Pack) 17 gm PO DAILY PRN PRN Reason: Constipation Risperidone (Risperidone 3 Mg Tablet) 6 mg PO BID [facility] Last Admin: 04/10/24 08:35 Dose: 6 mg Senna (Sennosides 8.6 Mg Tablet) 8.6 mg PO DAILY [facility] Last Admin: 04/10/24 08:35 Dose: 8.6 mg Trazodone HCl (Trazodone Hcl 50 Mg Tablet) 50 mg PO BEDTIME MRX1 PRN PRN Reason: Insomnia Last Admin: 04/05/24 20:35 Dose: 50 mg Allergies Allergies Allergy/AdvReac Type Severity Reaction Status Date / Time trifluoperazine Allergy Unknown Verified 03/11/24 14:16 [From Stelazine] Assessment & Plan Assessment & Plan (1) Schizophrenia: Status: Acute Code(s): F20.9 - Schizophrenia, unspecified Plan Patient is a 73-year-old female with a PMH significant for HTN, post op VTE 2 years ago, hypothyroidism, and mood disorder who was admitted to [facility] after eloping from [facility] and walking into traffic on purpose. Patient apparently believes a friend is writing a horrible story about and does not want to live after everyone reads the book as she believes everyone will hate her. Hospitalist consult for ECT risk stratification. ECT risk stratification Previously underwent ECT without complications in 1998 Currently no significant medical complaints or PMH EKG from 7 days prior at time of admission negative for ischemia RCRI 0 points, class I risk Will repeat EKG before completing risk stratification Plan 1. Continue with Risperdal and Clozaril as prescribed. 2. Waiting for affirmation of healthcare proxy for possibility of ECT. Reason for continued inpatient stay Substantial Risk for: inability to function, rapid decompensation and med/psych decompensation Time Spent With Patient Time: Total time managing care of this patient today __20__ minutes.
[2024-04-10 20:00] VITALS: RESP 18
[2024-04-10] MEDS: traZODone HCL 50 MG TABLET PO (20:31)
[2024-04-10] MEDS: hydrOXYzine HCL 25 MG TABLET PO (20:31)
[2024-04-11] MEDS: Levothyroxine Sodium 75 MCG TABLET PO (06:00)
[2024-04-11 08:00] VITALS: RESP 16
[2024-04-11] MEDS: risperiDONE 3 MG TABLET 6 MG PO ×2 (08:43→20:11)
[2024-04-11] MEDS: Famotidine 20 MG TABLET PO (08:43)
[2024-04-11] MEDS: cloZAPine 100 MG TABLET PO ×2 (08:43→11:59)
[2024-04-11] MEDS: Sennosides 8.6 MG TABLET PO (08:43)
[2024-04-11] MEDS: lamoTRIgine 25 MG TABLET 50 MG PO ×2 (08:44→20:11)
--- NOTE | 2024-04-11 11:01 | P.PNPSI_ITS ---
Subjective Subjective Date of Service: 04/11/24 Reason For Visit: Psychosis Subjective Notes: Conditional Voluntary Interim History: Pt slept most of the night. She is mostly in her room. Although denies any psychiatric symptoms, she is very paranoid, refusing lab work. She denies SI/HI. reports having BM, but unclear how accurate her reports are. 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 No evidence of acute intracranial hemorrhage or edematous territorial infarction. 2. Mild to moderate underlying microangiopathy. 3. Arachnoid cyst in the right middle cranial fossa. Electronically signed by: Mino Arriaga DO 03/18/2024 06:26 PM EST RP Head CT 03/19/24 01:36 IMPRESSION: 1. Left frontal scalp soft tissue swelling. 2. No acute intracranial process seen. 3. Stable right middle cranial fossa arachnoid cyst. Electronically signed by: Andreas Olsen MD 03/19/2024 02:08 AM EST RP Head CT 04/05/24 16:20 IMPRESSION: 1. No acute intracranial hemorrhage or mass effect. 2. Stable right middle cranial fossa arachnoid cyst. Electronically signed by: Getachew Arana MD 04/05/2024 05:15 PM EST RP Medications Medications Current Medications Acetaminophen (Acetaminophen 325 Mg Tablet) 650 mg PO Q6H PRN PRN Reason: Headache/Pain Mild Scale (1-3) Al Hydroxide/Mg Hydroxide (Magnesium Hydrox/Alum Hydrox 30 Ml Oral.Susp) 30 ml PO Q6H PRN PRN Reason: Heartburn/Nausea Clozapine (Clozapine 100 Mg Tablet) [address] [facility] Last Admin: 04/11/24 08:43 Dose: 100 mg Clozapine (Clozapine 100 Mg Tablet) [address] [facility] Last Admin: 04/06/24 20:52 Dose: 300 mg Clozapine (Clozapine 100 Mg Tablet) 100 mg PO DAILY@1230 [facility] Last Admin: 04/10/24 11:59 Dose: 100 mg Famotidine (Famotidine 20 Mg Tablet) [address] [facility] Last Admin: 04/11/24 08:43 Dose: 20 mg Hydroxyzine HCl (Hydroxyzine Hcl 25 Mg Tablet) 25 mg PO Q6H PRN PRN Reason: Anxiety Last Admin: 04/10/24 20:31 Dose: 25 mg Lamotrigine (Lamotrigine 25 Mg Tablet) [address] [facility] Last Admin: 04/11/24 08:44 Dose: 50 mg Levothyroxine Sodium (Levothyroxine Sodium 75 Mcg Tablet) 75 mcg PO DAILY@0600 [facility] Last Admin: 04/11/24 06:00 Dose: 75 mcg Magnesium Hydroxide (Milk Of Magnesia 30 Ml Oral.Susp) 30 ml PO BID PRN PRN Reason: Constipation Last Admin: 03/14/24 11:16 Dose: 30 ml Nicotine Polacrilex (Nicotine Polacrilex 2 Mg Gum) 2 mg BUCCAL Q2H PRN PRN Reason: Nicotine Cravings Polyethylene Glycol (Polyethylene Glycol 3350 17 Gm Powd.Pack) 17 gm PO DAILY PRN PRN Reason: Constipation Risperidone (Risperidone 3 Mg Tablet) [address] [facility] Last Admin: 04/11/24 08:43 Dose: 6 mg Senna (Sennosides 8.6 Mg Tablet) 8.[address] [facility] Last Admin: 04/11/24 08:43 Dose: 8.6 mg Trazodone HCl (Trazodone Hcl 50 Mg Tablet) 50 mg PO BEDTIME MRX1 PRN PRN Reason: Insomnia Last Admin: 04/10/24 20:31 Dose: 50 mg Allergies Allergies Allergy/AdvReac Type Severity Reaction Status Date / Time trifluoperazine Allergy Unknown Verified 03/11/24 14:16 [From Stelazine] Assessment & Plan Assessment & Plan (1) Schizophrenia: Status: Acute Code(s): F20.9 - Schizophrenia, unspecified Plan Patient is a 73-year-old female with a PMH significant for HTN, post op VTE 2 years ago, hypothyroidism, and mood disorder who was admitted to [facility] after eloping from [facility] and walking into traffic on purpose. Patient apparently believes a friend is writing a horrible story about and does not want to live after everyone reads the book as she believes everyone will hate her. Hospitalist consult for ECT risk stratification. ECT risk stratification Previously underwent ECT without complications in 1998 Currently no significant medical complaints or PMH EKG from 7 days prior at time of admission negative for ischemia RCRI 0 points, class I risk Will repeat EKG before completing risk stratification Plan 04/11 continue tx. needs ANC lab for clozaril Reason for continued inpatient stay Substantial Risk for: inability to function Time Spent With Patient Time: Total time managing care of this patient today ____ minutes.
--- NOTE | 2024-04-11 13:19 | HE.PHANOTE ---
RE: LAB REFUSAL (FOR ANC) Last ANC was 03/26/24, lab was ordered for 04/10/24 (refused) and again for 04/11/24 (refused 2x). Provider Amelia Gordon was made aware of situation.
--- NOTE | 2024-04-11 14:19 | PC.NURSE ---
Patient refused lab work for Absolute Neutrophil Count, Heidi ALCALA notified.
[2024-04-11 20:00] VITALS: BP 137/82; PULSE 86; RESP 18; TEMP 36.8; O2SAT 97
[2024-04-11] MEDS: traZODone HCL 50 MG TABLET PO (20:12)
[2024-04-11] MEDS: hydrOXYzine HCL 25 MG TABLET PO (20:12)
[2024-04-12] MEDS: Levothyroxine Sodium 75 MCG TABLET PO (06:17)
[2024-04-12 08:34] VITALS: BP 123/70; PULSE 84; RESP 17; TEMP 36.3; O2SAT 98
[2024-04-12 08:34] LABS: Neut%MD 61.8 %; Neutrophils Absolute Auto 3.7 x10*3/uL (2.0-8.3)
[2024-04-12] MEDS: Sennosides 8.6 MG TABLET PO (08:35)
[2024-04-12] MEDS: lamoTRIgine 25 MG TABLET 50 MG PO ×2 (08:35→20:37)
[2024-04-12] MEDS: cloZAPine 100 MG TABLET PO ×2 (08:35→12:27)
[2024-04-12] MEDS: risperiDONE 3 MG TABLET 6 MG PO ×2 (08:35→20:37)
[2024-04-12] MEDS: Famotidine 20 MG TABLET PO (08:35)
--- NOTE | 2024-04-12 18:25 | P.PNPSI_ITS ---
Subjective Subjective Date of Service: 04/12/24 Reason For Visit: Psychosis Subjective Notes: Conditional Voluntary Interim History: Pt slept most of the night. She is mostly in her room. Although denies any psychiatric symptoms, she is very paranoid. She denies SI/HI. Allowed labs today for ANC reports having BM, but unclear how accurate her reports are. Review of Systems Review of Systems nothing acute Yes all other systems are reviewed and are negative Mental Status Exam Mental Status Exam Patient Appearance: Appropriate Patient Orientation: Person and Situation Level of Consciousness: Awake and Appropriate Patient Behavior: Guarded and Passive Behavior Comments: Patient calm and cooperative often in her room Mood Description: Withdrawn Affect Description: Constricted Patient Cognition Impaired: Yes Ability to Follow Directions: Good Speech Pattern: Clear Memory Description: Fpc Impaired Diagnostics Vital Signs (24Hr): Vital Signs - 24 hr 04/11/24 20:00 04/12/24 08:34 Temperature 98.2 F 97.4 F Pulse Rate 86 84 Respiratory Rate 18 17 Blood Pressure 137/82 123/70 Pulse Oximetry 97 98 Oxygen Delivery Method Room Air Room Air BMI result Body Mass Index 24.4 Labs 04/05/24 15:38 04/05/24 15:38 Labs: Laboratory Results - last 48 hr 04/12/24 08:30 Absolute Neuts (auto) 3.7 Imaging Radiology Impressions: ITS Impressions Head CT 03/18/24 09:42 IMPRESSION: 1. No evidence of acute intracranial hemorrhage or edematous territorial infarction. 2. Mild to moderate underlying microangiopathy. 3. Arachnoid cyst in the right middle cranial fossa. Electronically signed by: Mino Arriaga DO 03/18/2024 06:26 PM EST RP Head CT 03/19/24 01:36 IMPRESSION: 1. Left frontal scalp soft tissue swelling. 2. No acute intracranial process seen. 3. Stable right middle cranial fossa arachnoid cyst. Electronically signed by: Andreas Olsen MD 03/19/2024 02:08 AM EST RP Head CT 04/05/24 16:20 IMPRESSION: 1. No acute intracranial hemorrhage or mass effect. 2. Stable right middle cranial fossa arachnoid cyst. Electronically signed by: Getachew Arana MD 04/05/2024 05:15 PM EST RP Medications Medications Current Medications Acetaminophen (Acetaminophen 325 Mg Tablet) 650 mg PO Q6H PRN PRN Reason: Headache/Pain Mild Scale (1-3) Al Hydroxide/Mg Hydroxide (Magnesium Hydrox/Alum Hydrox 30 Ml Oral.Susp) 30 ml PO Q6H PRN PRN Reason: Heartburn/Nausea Clozapine (Clozapine 100 Mg Tablet) 100 mg PO DAILY [facility] Last Admin: 04/12/24 08:35 Dose: 100 mg Clozapine (Clozapine 100 Mg Tablet) 300 mg PO BEDTIME [facility] Last Admin: 04/06/24 20:52 Dose: 300 mg Clozapine (Clozapine 100 Mg Tablet) 100 mg PO DAILY@1230 [facility] Last Admin: 04/12/24 12:27 Dose: 100 mg Famotidine (Famotidine 20 Mg Tablet) 20 mg PO DAILY [facility] Last Admin: 04/12/24 08:35 Dose: 20 mg Hydroxyzine HCl (Hydroxyzine Hcl 25 Mg Tablet) 25 mg PO Q6H PRN PRN Reason: Anxiety Last Admin: 04/11/24 20:12 Dose: 25 mg Lamotrigine (Lamotrigine 25 Mg Tablet) 50 mg PO BID [facility] Last Admin: 04/12/24 08:35 Dose: 50 mg Levothyroxine Sodium (Levothyroxine Sodium 75 Mcg Tablet) 75 mcg PO DAILY@0600 [facility] Last Admin: 04/12/24 06:17 Dose: 75 mcg Magnesium Hydroxide (Milk Of Magnesia 30 Ml Oral.Susp) 30 ml PO BID PRN PRN Reason: Constipation Last Admin: 03/14/24 11:16 Dose: 30 ml Nicotine Polacrilex (Nicotine Polacrilex 2 Mg Gum) 2 mg BUCCAL Q2H PRN PRN Reason: Nicotine Cravings Polyethylene Glycol (Polyethylene Glycol 3350 17 Gm Powd.Pack) 17 gm PO DAILY PRN PRN Reason: Constipation Risperidone (Risperidone 3 Mg Tablet) 6 mg PO BID [facility] Last Admin: 04/12/24 08:35 Dose: 6 mg Senna (Sennosides 8.6 Mg Tablet) 8.6 mg PO DAILY [facility] Last Admin: 04/12/24 08:35 Dose: 8.6 mg Trazodone HCl (Trazodone Hcl 50 Mg Tablet) 50 mg PO BEDTIME MRX1 PRN PRN Reason: Insomnia Last Admin: 04/11/24 20:12 Dose: 50 mg Allergies Allergies Allergy/AdvReac Type Severity Reaction Status Date / Time trifluoperazine Allergy Unknown Verified 03/11/24 14:16 [From Stelazine] Assessment & Plan Assessment & Plan (1) Schizophrenia: Status: Acute Code(s): F20.9 - Schizophrenia, unspecified Plan Patient is a 73-year-old female with a PMH significant for HTN, post op VTE 2 years ago, hypothyroidism, and mood disorder who was admitted to [facility] after eloping from [facility] and walking into traffic on purpose. Patient apparently believes a friend is writing a horrible story about and does not want to live after everyone reads the book as she believes everyone will hate her. Hospitalist consult for ECT risk stratification. ECT risk stratification Previously underwent ECT without complications in 1998 Currently no significant medical complaints or PMH EKG from 7 days prior at time of admission negative for ischemia RCRI 0 points, class I risk Will repeat EKG before completing risk stratification Plan 04/11 continue tx. needs ANC lab for clozaril 04/12 continue tx. Reason for continued inpatient stay Substantial Risk for: inability to function Time Spent With Patient Time: Total time managing care of this patient today ____ minutes.
[2024-04-12 20:00] VITALS: BP 95/58; PULSE 86; RESP 18; TEMP 36.4; O2SAT 97
[2024-04-13] MEDS: Levothyroxine Sodium 75 MCG TABLET PO (06:13)
[2024-04-13 08:00] VITALS: BP 112/79; PULSE 86; RESP 16; TEMP 36.2; O2SAT 98
[2024-04-13] MEDS: Sennosides 8.6 MG TABLET PO (08:02)
[2024-04-13] MEDS: Famotidine 20 MG TABLET PO (08:02)
[2024-04-13] MEDS: cloZAPine 100 MG TABLET PO ×2 (08:02→11:53)
[2024-04-13] MEDS: risperiDONE 3 MG TABLET 6 MG PO ×2 (08:03→20:28)
[2024-04-13] MEDS: lamoTRIgine 25 MG TABLET 50 MG PO ×2 (08:03→20:29)
--- NOTE | 2024-04-13 14:54 | HO.PSYCHPN ---
Subjective Subjective Date of Service: 04/13/24 Reason For Visit: Psychosis Subjective Notes: Conditional Voluntary Healthcare Proxy: Yes Interim History: The nursing staff reported the patient had been with a brighter affect, pleasant cooperative slept 6 hours. Her Clozaril had been held since the at night due to over-sedation. We are going to restarted at a lower dose 200 mg p.o. q.h.s. tonight. On interview the patient denies new symptoms she looks much better. Mental Status Exam Mental Status Exam Patient Appearance: Appropriate Patient Orientation: Person and Situation Level of Consciousness: Awake and Appropriate Patient Behavior: Guarded Mood Description: Calm Affect Description: Constricted Patient Cognition Impaired: Yes Ability to Follow Directions: Good Speech Pattern: Clear Hallucinations: None Delusions: Paranoid Ideation and Ideas of Reference Thought Process: Distracted and Slowed Thinking Thought Content: positive for Circumstantial Judgement: Fair Diagnostics Vital Signs (24Hr): Vital Signs - 24 hr 04/12/24 20:00 04/13/24 08:00 Temperature 97.5 F 97.1 F Pulse Rate 86 86 Respiratory Rate 18 16 Blood Pressure 95/58 L 112/79 Pulse Oximetry 97 98 Oxygen Delivery Method Room Air Room Air BMI result Body Mass Index 24.4 Labs 04/05/24 15:38 04/05/24 15:38 Labs: Laboratory Results - last 48 hr 04/12/24 08:30 Absolute Neuts (auto) 3.7 Imaging Radiology Impressions: ITS Impressions Head CT 03/18/24 09:42 IMPRESSION: 1. No evidence of acute intracranial hemorrhage or edematous territorial infarction. 2. Mild to moderate underlying microangiopathy. 3. Arachnoid cyst in the right middle cranial fossa. Electronically signed by: Mino Arriaga DO 03/18/2024 06:26 PM EST RP Head CT 03/19/24 01:36 IMPRESSION: 1. Left frontal scalp soft tissue swelling. 2. No acute intracranial process seen. 3. Stable right middle cranial fossa arachnoid cyst. Electronically signed by: Andreas Olsen MD 03/19/2024 02:08 AM EST RP Head CT 04/05/24 16:20 IMPRESSION: 1. No acute intracranial hemorrhage or mass effect. 2. Stable right middle cranial fossa arachnoid cyst. Electronically signed by: Getachew Arana MD 04/05/2024 05:15 PM [facility] [place] Medications Current Medications Acetaminophen (Acetaminophen 325 Mg Tablet) 650 mg PO Q6H PRN PRN Reason: Headache/Pain Mild Scale (1-3) Al Hydroxide/Mg Hydroxide (Magnesium Hydrox/Alum Hydrox 30 Ml Oral.Susp) 30 ml PO Q6H PRN PRN Reason: Heartburn/Nausea Clozapine (Clozapine 100 Mg Tablet) 100 mg PO DAILY [facility] Last Admin: 04/13/24 08:02 Dose: 100 mg Clozapine (Clozapine 100 Mg Tablet) 300 mg PO BEDTIME [facility] Last Admin: 04/06/24 20:52 Dose: 300 mg Clozapine (Clozapine 100 Mg Tablet) 100 mg PO DAILY@1230 [facility] Last Admin: 04/13/24 11:53 Dose: 100 mg Famotidine (Famotidine 20 Mg Tablet) 20 mg PO DAILY [facility] Last Admin: 04/13/24 08:02 Dose: 20 mg Hydroxyzine HCl (Hydroxyzine Hcl 25 Mg Tablet) 25 mg PO Q6H PRN PRN Reason: Anxiety Last Admin: 04/11/24 20:12 Dose: 25 mg Lamotrigine (Lamotrigine 25 Mg Tablet) 50 mg PO BID [facility] Last Admin: 04/13/24 08:03 Dose: 50 mg Levothyroxine Sodium (Levothyroxine Sodium 75 Mcg Tablet) 75 mcg PO DAILY@0600 [facility] Last Admin: 04/13/24 06:13 Dose: 75 mcg Magnesium Hydroxide (Milk Of Magnesia 30 Ml Oral.Susp) 30 ml PO BID PRN PRN Reason: Constipation Last Admin: 03/14/24 11:16 Dose: 30 ml Nicotine Polacrilex (Nicotine Polacrilex 2 Mg Gum) 2 mg BUCCAL Q2H PRN PRN Reason: Nicotine Cravings Polyethylene Glycol (Polyethylene Glycol 3350 17 Gm Powd.Pack) 17 gm PO DAILY PRN PRN Reason: Constipation Risperidone (Risperidone 3 Mg Tablet) 6 mg PO BID [facility] Last Admin: 04/13/24 08:03 Dose: 6 mg Senna (Sennosides 8.6 Mg Tablet) 8.6 mg PO DAILY [facility] Last Admin: 04/13/24 08:02 Dose: 8.6 mg Trazodone HCl (Trazodone Hcl 50 Mg Tablet) 50 mg PO BEDTIME MRX1 PRN PRN Reason: Insomnia Last Admin: 04/11/24 20:12 Dose: 50 mg Allergies Allergies Allergy/AdvReac Type Severity Reaction Status Date / Time trifluoperazine Allergy Unknown Verified 03/11/24 14:16 [From Stelazine] Assessment & Plan Assessment & Plan (1) Schizophrenia: Status: Acute Code(s): F20.9 - Schizophrenia, unspecified Plan Patient is a 73-year-old female with a PMH significant for HTN, post op VTE 2 years ago, hypothyroidism, and mood disorder who was admitted to [facility] after eloping from [facility] and walking into traffic on purpose. Patient apparently believes a friend is writing a horrible story about and does not want to live after everyone reads the book as she believes everyone will hate her. Hospitalist consult for ECT risk stratification. ECT risk stratification Previously underwent ECT without complications in 1998 Currently no significant medical complaints or PMH EKG from 7 days prior at time of admission negative for ischemia RCRI 0 points, class I risk Will repeat EKG before completing risk stratification Plan 04/11 continue tx. needs ANC lab for clozaril 04/12 continue tx. 04/13 start Clozaril 200 mg p.o. q.h.s. and keep 100 mg p.o. b.i.d. rest the same Reason for continued inpatient stay Substantial Risk for: inability to function, rapid decompensation and med/psych decompensation Time Spent With Patient Time: Total time managing care of this patient today __20__ minutes.
[2024-04-13 20:00] VITALS: BP 130/77; PULSE 88; TEMP 36.8; O2SAT 97
[2024-04-13] MEDS: cloZAPine 100 MG TABLET 200 MG PO (20:28)
[2024-04-14] MEDS: Levothyroxine Sodium 75 MCG TABLET PO (05:56)
[2024-04-14 07:42] VITALS: BP 122/74; PULSE 88; RESP 18; TEMP 37; O2SAT 95
[2024-04-14] MEDS: Milk of Magnesia 30 ML ORAL.SUSP PO (08:03)
[2024-04-14] MEDS: lamoTRIgine 25 MG TABLET 50 MG PO ×2 (08:03→20:53)
[2024-04-14] MEDS: cloZAPine 100 MG TABLET PO ×3 (08:04→20:53)
[2024-04-14] MEDS: Sennosides 8.6 MG TABLET PO (08:04)
[2024-04-14] MEDS: risperiDONE 3 MG TABLET 6 MG PO ×2 (08:04→20:53)
[2024-04-14] MEDS: Famotidine 20 MG TABLET PO (08:04)
--- NOTE | 2024-04-14 12:56 | HO.PSYCHPN ---
Subjective Subjective Date of Service: 04/14/24 Reason For Visit: Psychosis Subjective Notes: Conditional Voluntary Interim History: The nursing staff reported the patient had been more visible in the unit, she slept only 4 hours compliant with treatment. On interview the patient denies new symptoms she looks internally preoccupied., waiting for information of healthcare proxy. Recently restarted Clozaril at night. Mental Status Exam Mental Status Exam Patient Appearance: Appropriate Patient Orientation: Person and Situation Level of Consciousness: Awake and Appropriate Patient Behavior: Guarded and Passive Mood Description: Withdrawn Affect Description: Constricted Patient Cognition Impaired: Yes Ability to Follow Directions: Good Speech Pattern: Clear Hallucinations: None Delusions: Paranoid Ideation and Ideas of Reference Thought Process: Distracted and Slowed Thinking Thought Content: positive for [place] and positive for Poverty of Content Judgement: Fair Diagnostics Vital Signs (24Hr): Vital Signs - 24 hr 04/13/24 20:00 04/14/24 07:42 Temperature 98.2 F 98.6 F Pulse Rate 88 88 Respiratory Rate 18 Blood Pressure 130/77 122/74 Pulse Oximetry 97 95 Oxygen Delivery Method Room Air Room Air BMI result Body Mass Index 24.4 Labs 04/05/24 15:38 04/05/24 15:38 Imaging Radiology Impressions: ITS Impressions Head CT 03/18/24 09:42 IMPRESSION: 1. No evidence of acute intracranial hemorrhage or edematous territorial infarction. 2. Mild to moderate underlying microangiopathy. 3. Arachnoid cyst in the right middle cranial fossa. Electronically signed by: Mino Arriaga DO 03/18/2024 06:26 PM EST RP Head CT 03/19/24 01:36 IMPRESSION: 1. Left frontal scalp soft tissue swelling. 2. No acute intracranial process seen. 3. Stable right middle cranial fossa arachnoid cyst. Electronically signed by: Andreas Olsen MD 03/19/2024 02:08 AM EST RP Head CT 04/05/24 16:20 IMPRESSION: 1. No acute intracranial hemorrhage or mass effect. 2. Stable right middle cranial fossa arachnoid cyst. Electronically signed by: Getachew Arana MD 04/05/2024 05:15 PM EST RP Medications Medications Current Medications Acetaminophen (Acetaminophen 325 Mg Tablet) 650 mg PO Q6H PRN PRN Reason: Headache/Pain Mild Scale (1-3) Al Hydroxide/Mg Hydroxide (Magnesium Hydrox/Alum Hydrox 30 Ml Oral.Susp) 30 ml PO Q6H PRN PRN Reason: Heartburn/Nausea Clozapine (Clozapine 100 Mg Tablet) 100 mg PO DAILY [facility] Last Admin: 04/14/24 08:04 Dose: 100 mg Clozapine (Clozapine 100 Mg Tablet) 100 mg PO DAILY@1230 [facility] Last Admin: 04/14/24 12:25 Dose: 100 mg Clozapine (Clozapine 100 Mg Tablet) 200 mg PO BEDTIME [facility] Last Admin: 04/13/24 20:28 Dose: 200 mg Famotidine (Famotidine 20 Mg Tablet) 20 mg PO DAILY [facility] Last Admin: 04/14/24 08:04 Dose: 20 mg Hydroxyzine HCl (Hydroxyzine Hcl 25 Mg Tablet) 25 mg PO Q6H PRN PRN Reason: Anxiety Last Admin: 04/11/24 20:12 Dose: 25 mg Lamotrigine (Lamotrigine 25 Mg Tablet) 50 mg PO BID [facility] Last Admin: 04/14/24 08:03 Dose: 50 mg Levothyroxine Sodium (Levothyroxine Sodium 75 Mcg Tablet) 75 mcg PO DAILY@0600 [facility] Last Admin: 04/14/24 05:56 Dose: 75 mcg Magnesium Hydroxide (Milk Of Magnesia 30 Ml Oral.Susp) 30 ml PO BID PRN PRN Reason: Constipation Last Admin: 04/14/24 08:03 Dose: 30 ml Nicotine Polacrilex (Nicotine Polacrilex 2 Mg Gum) 2 mg BUCCAL Q2H PRN PRN Reason: Nicotine Cravings Polyethylene Glycol (Polyethylene Glycol 3350 17 Gm Powd.Pack) 17 gm PO DAILY PRN PRN Reason: Constipation Risperidone (Risperidone 3 Mg Tablet) 6 mg PO BID [facility] Last Admin: 04/14/24 08:04 Dose: 6 mg Senna (Sennosides 8.6 Mg Tablet) 8.6 mg PO DAILY [facility] Last Admin: 04/14/24 08:04 Dose: 8.6 mg Trazodone HCl (Trazodone Hcl 50 Mg Tablet) 50 mg PO BEDTIME MRX1 PRN PRN Reason: Insomnia Last Admin: 04/11/24 20:12 Dose: 50 mg Allergies Allergies Allergy/AdvReac Type Severity Reaction Status Date / Time trifluoperazine Allergy Unknown Verified 03/11/24 14:16 [From Adrian] Assessment & Plan Assessment & Plan (1) Schizophrenia: Status: Acute Code(s): F20.9 - Schizophrenia, unspecified Plan Patient is a 73-year-old female with a PMH significant for HTN, post op VTE 2 years ago, hypothyroidism, and mood disorder who was admitted to [facility] after eloping from [facility] and walking into traffic on purpose. Patient apparently believes a friend is writing a horrible story about and does not want to live after everyone reads the book as she believes everyone will hate her. Hospitalist consult for ECT risk stratification. ECT risk stratification Previously underwent ECT without complications in 1998 Currently no significant medical complaints or PMH EKG from 7 days prior at time of admission negative for ischemia RCRI 0 points, class I risk Will repeat EKG before completing risk stratification Plan 1. Keep Clozaril 100 mg p.o. b.i.d. and Clozaril 200 mg p.o. q.h.s.. 2. Keep Risperdal [address] 3. Court for healthcare proxy for possibility of ECT. 4. Reassessment with results Reason for continued inpatient stay Substantial Risk for: inability to function, rapid decompensation and med/psych decompensation Time Spent With Patient Time: Total time managing care of this patient today __20__ minutes.
--- NOTE | 2024-04-14 14:27 | PC.NURSE ---
pt c/o of constipation, MOM given and prune juice pending effectiveness
[2024-04-14 20:00] VITALS: BP 143/82; PULSE 93; RESP 16; TEMP 36.5; O2SAT 98
[2024-04-14] MEDS: cloZAPine 100 MG TABLET 200 MG PO (20:53)
[2024-04-15] MEDS: Levothyroxine Sodium 75 MCG TABLET PO (05:44)
[2024-04-15 08:00] VITALS: BP 99/71; PULSE 89; RESP 16; TEMP 36.5; O2SAT 97
[2024-04-15] MEDS: cloZAPine 100 MG TABLET PO ×2 (08:20→11:54)
[2024-04-15] MEDS: lamoTRIgine 25 MG TABLET 50 MG PO ×2 (08:20→20:26)
[2024-04-15] MEDS: risperiDONE 3 MG TABLET 6 MG PO ×2 (08:22→20:24)
[2024-04-15] MEDS: Sennosides 8.6 MG TABLET PO (08:22)
[2024-04-15] MEDS: Famotidine 20 MG TABLET PO (08:22)
[2024-04-15] MEDS: Milk of Magnesia 30 ML ORAL.SUSP PO (08:41)
[2024-04-15 08:55] LABS: Neut%MD 73.1 %; WBCANC 8.2 X10*3/uL
--- NOTE | 2024-04-15 09:01 | HO.PSYCHPN ---
Subjective Subjective Date of Service: 04/15/24 Reason For Visit: Psychosis Interim History: Pt seen, reviewed with team Reports no current concerns, accepting of meds and care per team. Medication Compliance: Yes Side effects from medications: No Review of Systems Review of Systems Yes all other systems are reviewed and are negative Mental Status Exam Mental Status Exam Patient Appearance: Appropriate Patient Orientation: Person and Situation Level of Consciousness: Awake and Appropriate Patient Behavior: Guarded and Passive Mood Description: Withdrawn Affect Description: Constricted Patient Cognition Impaired: Yes Ability to Follow Directions: Good Speech Pattern: Clear Hallucinations: None Delusions: Paranoid Ideation and Ideas of Reference Thought Process: Distracted and Slowed Thinking Thought Content: positive for [place] and positive for Poverty of Content Judgement: Fair Diagnostics Vital Signs (24Hr): Vital Signs - 24 hr 04/14/24 20:00 Temperature 97.7 F Pulse Rate 93 Respiratory Rate 16 Blood Pressure 143/82 H Pulse Oximetry 98 Oxygen Delivery Method Room Air BMI result Body Mass Index 24.4 Labs 04/05/24 15:38 04/05/24 15:38 Labs: Laboratory Results - last 48 hr 04/15/24 08:26 Absolute Neuts (auto) 6.0 Imaging Radiology Impressions: ITS Impressions Head CT 03/18/24 09:42 IMPRESSION: 1. No evidence of acute intracranial hemorrhage or edematous territorial infarction. 2. Mild to moderate underlying microangiopathy. 3. Arachnoid cyst in the right middle cranial fossa. Electronically signed by: Mino Arriaga DO 03/18/2024 06:26 PM EST RP Head CT 03/19/24 01:36 IMPRESSION: 1. Left frontal scalp soft tissue swelling. 2. No acute intracranial process seen. 3. Stable right middle cranial fossa arachnoid cyst. Electronically signed by: Andreas Olsen MD 03/19/2024 02:08 AM EST RP Head CT 04/05/24 16:20 IMPRESSION: 1. No acute intracranial hemorrhage or mass effect. 2. Stable right middle cranial fossa arachnoid cyst. Electronically signed by: Getachew Arana MD 04/05/2024 05:15 PM EST RP Medications Medications Current Medications Acetaminophen (Acetaminophen 325 Mg Tablet) 650 mg PO Q6H PRN PRN Reason: Headache/Pain Mild Scale (1-3) Al Hydroxide/Mg Hydroxide (Magnesium Hydrox/Alum Hydrox 30 Ml Oral.Susp) 30 ml PO Q6H PRN PRN Reason: Heartburn/Nausea Clozapine (Clozapine 100 Mg Tablet) 100 mg PO DAILY [facility] Last Admin: 04/15/24 08:20 Dose: 100 mg Clozapine (Clozapine 100 Mg Tablet) 100 mg PO DAILY@1230 [facility] Last Admin: 04/14/24 12:25 Dose: 100 mg Clozapine (Clozapine 100 Mg Tablet) 200 mg PO BEDTIME [facility] Last Admin: 04/14/24 20:53 Dose: 200 mg Famotidine (Famotidine 20 Mg Tablet) 20 mg PO DAILY [facility] Last Admin: 04/15/24 08:22 Dose: 20 mg Hydroxyzine HCl (Hydroxyzine Hcl 25 Mg Tablet) 25 mg PO Q6H PRN PRN Reason: Anxiety Last Admin: 04/11/24 20:12 Dose: 25 mg Lamotrigine (Lamotrigine 25 Mg Tablet) 50 mg PO BID [facility] Last Admin: 04/15/24 08:20 Dose: 50 mg Levothyroxine Sodium (Levothyroxine Sodium 75 Mcg Tablet) 75 mcg PO DAILY@0600 [facility] Last Admin: 04/15/24 05:44 Dose: 75 mcg Magnesium Hydroxide (Milk Of Magnesia 30 Ml Oral.Susp) 30 ml PO BID PRN PRN Reason: Constipation Last Admin: 04/15/24 08:41 Dose: 30 ml Nicotine Polacrilex (Nicotine Polacrilex 2 Mg Gum) 2 mg BUCCAL Q2H PRN PRN Reason: Nicotine Cravings Polyethylene Glycol (Polyethylene Glycol 3350 17 Gm Powd.Pack) 17 gm PO DAILY PRN PRN Reason: Constipation Risperidone (Risperidone 3 Mg Tablet) 6 mg PO BID [facility] Last Admin: 04/15/24 08:22 Dose: 6 mg Senna (Sennosides 8.6 Mg Tablet) 8.6 mg PO DAILY [facility] Last Admin: 04/15/24 08:22 Dose: 8.6 mg Trazodone HCl (Trazodone Hcl 50 Mg Tablet) 50 mg PO BEDTIME MRX1 PRN PRN Reason: Insomnia Last Admin: 04/11/24 20:12 Dose: 50 mg Allergies Allergies Allergy/AdvReac Type Severity Reaction Status Date / Time trifluoperazine Allergy Unknown Verified 03/11/24 14:16 [From Stelazine] Assessment & Plan Assessment & Plan (1) Schizophrenia: Status: Acute Code(s): F20.9 - Schizophrenia, unspecified Plan Patient is a 73-year-old female with a PMH significant for HTN, post op VTE 2 years ago, hypothyroidism, and mood disorder who was admitted to [facility] after eloping from [facility] and walking into traffic on purpose. Patient apparently believes a friend is writing a horrible story about and does not want to live after everyone reads the book as she believes everyone will hate her. Hospitalist consult for ECT risk stratification. ECT risk stratification Previously underwent ECT without complications in 1998 Currently no significant medical complaints or PMH EKG from 7 days prior at time of admission negative for ischemia RCRI 0 points, class I risk Will repeat EKG before completing risk stratification 04/15/24: Continue current regime and plan. Plan 1. Keep Clozaril 100 mg p.o. b.i.d. and Clozaril 200 mg p.o. q.h.s.. 2. Keep Risperdal [address]d.. 3. Court for healthcare proxy for possibility of ECT. 4. Reassessment with results Reason for continued inpatient stay Substantial Risk for: rapid decompensation Time Spent With Patient Time: Total time managing care of this patient today ____ minutes.
[2024-04-15 20:00] VITALS: RESP 16
[2024-04-15] MEDS: cloZAPine 100 MG TABLET 200 MG PO (20:23)
[2024-04-15] MEDS: hydrOXYzine HCL 25 MG TABLET PO (20:24)
[2024-04-16] MEDS: Levothyroxine Sodium 75 MCG TABLET PO (06:04)
[2024-04-16 07:00] VITALS: BMI 24.9
[2024-04-16 08:22] VITALS: BP 110/62; PULSE 88; RESP 16; TEMP 36.3; O2SAT 96
[2024-04-16] MEDS: Famotidine 20 MG TABLET PO (08:37)
[2024-04-16] MEDS: risperiDONE 3 MG TABLET 6 MG PO ×2 (08:37→20:47)
[2024-04-16] MEDS: lamoTRIgine 25 MG TABLET 50 MG PO ×2 (08:37→20:47)
[2024-04-16] MEDS: Sennosides 8.6 MG TABLET PO (08:37)
--- NOTE | 2024-04-16 09:28 | PC.NURSE ---
Deedee reports I haven't moved my bowels in a month, it's stuck in my rectum. Unsure of accuracy of statement. Abdomen soft, rounded and non-tender upon assessment. Active bowels sounds auscultated in all four quadrants. Notified Dr. Perez and requested KUB.
[2024-04-16] MEDS: cloZAPine 100 MG TABLET PO (11:53)
--- NOTE | 2024-04-16 11:54 | PC.NURSE ---
Deedee c/o 12/30 pain to rectum due to constipation. Dr. Cerda notified.
[2024-04-16] MEDS: Sodium Phosphate,Mono-Dibasic 133 ML ENEMA PR (14:10)
--- NOTE | 2024-04-16 14:49 | HO.PSYCHPN ---
Subjective Subjective Date of Service: 04/16/24 Reason For Visit: Psychosis Subjective Notes: Conditional Voluntary Interim History: The nursing staff reported the patient had been more awake and engaged she was complaining of abdominal pain. On interview the patient reports that she had been constipated for several days she requested a Fleet enema. We are also ordering a KUB after the Fleet enema. Mental Status Exam Mental Status Exam Patient Appearance: Appropriate Patient Orientation: Person and Situation Level of Consciousness: Awake Patient Behavior: Guarded and Passive Mood Description: Withdrawn Affect Description: Constricted Patient Cognition Impaired: Yes Ability to Follow Directions: Good Speech Pattern: Clear Hallucinations: None Delusions: Paranoid Ideation Thought Process: Distracted and Slowed Thinking Thought Content: positive for [place] and positive for Circumstantial Judgement: Fair Diagnostics Vital Signs (24Hr): Vital Signs - 24 hr 04/15/24 20:00 04/16/24 08:22 Temperature 97.3 F Pulse Rate 88 Respiratory Rate 16 16 Blood Pressure 110/62 Pulse Oximetry 96 Oxygen Delivery Method Room Air BMI result Body Mass Index 24.9 Labs 04/05/24 15:38 04/05/24 15:38 Labs: Laboratory Results - last 48 hr 04/15/24 08:26 Absolute Neuts (auto) 6.0 Imaging Radiology Impressions: ITS Impressions Head CT 03/18/24 09:42 IMPRESSION: 1. No evidence of acute intracranial hemorrhage or edematous territorial infarction. 2. Mild to moderate underlying microangiopathy. 3. Arachnoid cyst in the right middle cranial fossa. Electronically signed by: Mino Arriaga DO 03/18/2024 06:26 PM EST RP Head CT 03/19/24 01:36 IMPRESSION: 1. Left frontal scalp soft tissue swelling. 2. No acute intracranial process seen. 3. Stable right middle cranial fossa arachnoid cyst. Electronically signed by: Andreas Olsen MD 03/19/2024 02:08 AM EST RP Head CT 04/05/24 16:20 IMPRESSION: 1. No acute intracranial hemorrhage or mass effect. 2. Stable right middle cranial fossa arachnoid cyst. Electronically signed by: Getachew Arana MD 04/05/2024 05:15 PM EST RP KUB X-Ray 04/16/24 13:57 IMPRESSION: Nonobstructive bowel gas pattern. Large colonic and rectal fecal material. Electronically signed by: Chencho Ugalde MD 04/16/2024 02:13 PM [facility] Medications Medications Current Medications Acetaminophen (Acetaminophen 325 Mg Tablet) 650 mg PO Q6H PRN PRN Reason: Headache/Pain Mild Scale (1-3) Al Hydroxide/Mg Hydroxide (Magnesium Hydrox/Alum Hydrox 30 Ml Oral.Susp) 30 ml PO Q6H PRN PRN Reason: Heartburn/Nausea Clozapine (Clozapine 100 Mg Tablet) 100 mg PO DAILY [facility] Last Admin: 04/15/24 08:20 Dose: 100 mg Clozapine (Clozapine 100 Mg Tablet) 100 mg PO DAILY@1230 [facility] Last Admin: 04/16/24 11:53 Dose: 100 mg Clozapine (Clozapine 100 Mg Tablet) 200 mg PO BEDTIME [facility] Last Admin: 04/15/24 20:23 Dose: 200 mg Famotidine (Famotidine 20 Mg Tablet) 20 mg PO DAILY [facility] Last Admin: 04/16/24 08:37 Dose: 20 mg Hydroxyzine HCl (Hydroxyzine Hcl 25 Mg Tablet) 25 mg PO Q6H PRN PRN Reason: Anxiety Last Admin: 04/15/24 20:24 Dose: 25 mg Lamotrigine (Lamotrigine 25 Mg Tablet) 50 mg PO BID [facility] Last Admin: 04/16/24 08:37 Dose: 50 mg Levothyroxine Sodium (Levothyroxine Sodium 75 Mcg Tablet) 75 mcg PO DAILY@0600 [facility] Last Admin: 04/16/24 06:04 Dose: 75 mcg Magnesium Hydroxide (Milk Of Magnesia 30 Ml Oral.Susp) 30 ml PO BID PRN PRN Reason: Constipation Last Admin: 04/15/24 08:41 Dose: 30 ml Nicotine Polacrilex (Nicotine Polacrilex 2 Mg Gum) 2 mg BUCCAL Q2H PRN PRN Reason: Nicotine Cravings Polyethylene Glycol (Polyethylene Glycol 3350 17 Gm Powd.Pack) 17 gm PO DAILY PRN PRN Reason: Constipation Risperidone (Risperidone 3 Mg Tablet) 6 mg PO BID [facility] Last Admin: 04/16/24 08:37 Dose: 6 mg Senna (Sennosides 8.6 Mg Tablet) 8.6 mg PO DAILY [facility] Last Admin: 04/16/24 08:37 Dose: 8.6 mg Trazodone HCl (Trazodone Hcl 50 Mg Tablet) 50 mg PO BEDTIME MRX1 PRN PRN Reason: Insomnia Last Admin: 04/11/24 20:12 Dose: 50 mg Allergies Allergies Allergy/AdvReac Type Severity Reaction Status Date / Time trifluoperazine Allergy Unknown Verified 03/11/24 14:16 [From Stelazine] Assessment & Plan Assessment & Plan (1) Schizophrenia: Status: Acute Code(s): F20.9 - Schizophrenia, unspecified Plan Patient is a 73-year-old female with a PMH significant for HTN, post op VTE 2 years ago, hypothyroidism, and mood disorder who was admitted to [facility] after eloping from [facility] and walking into traffic on purpose. Patient apparently believes a friend is writing a horrible story about and does not want to live after everyone reads the book as she believes everyone will hate her. Hospitalist consult for ECT risk stratification. ECT risk stratification Previously underwent ECT without complications in 1998 Currently no significant medical complaints or PMH EKG from 7 days prior at time of admission negative for ischemia RCRI 0 points, class I risk Will repeat EKG before completing risk stratification 04/15/24: Continue current regime and plan. Plan 1. Keep Clozaril 100 mg p.o. b.i.d. and Clozaril 200 mg p.o. q.h.s.. 2. Keep Risperdal [address] 3. Court for healthcare proxy for possibility of ECT. 4. Reassessment with results. 5. Mariam maki and IRA on April 16 Reason for continued inpatient stay Substantial Risk for: inability to function, rapid decompensation and med/psych decompensation Time Spent With Patient Time: Total time managing care of this patient today __20__ minutes.
[2024-04-16] MEDS: Milk of Magnesia 30 ML ORAL.SUSP PO (16:24)
[2024-04-16 20:00] VITALS: BP 127/79; PULSE 88; RESP 16; TEMP 36.8; O2SAT 97
[2024-04-16] MEDS: cloZAPine 100 MG TABLET 200 MG PO (20:48)
[2024-04-17] MEDS: Levothyroxine Sodium 75 MCG TABLET PO (06:08)
[2024-04-17 08:00] VITALS: BP 103/63; PULSE 88; RESP 16; TEMP 36.4; O2SAT 98
[2024-04-17] MEDS: Famotidine 20 MG TABLET PO (09:01)
[2024-04-17] MEDS: Sennosides 8.6 MG TABLET PO (09:01)
[2024-04-17] MEDS: cloZAPine 100 MG TABLET PO ×2 (09:02→12:03)
[2024-04-17] MEDS: risperiDONE 3 MG TABLET 6 MG PO ×2 (09:02→20:17)
[2024-04-17] MEDS: lamoTRIgine 25 MG TABLET 50 MG PO ×2 (09:02→20:18)
--- NOTE | 2024-04-17 09:09 | P.PNPSI_ITS ---
Subjective Subjective Date of Service: 04/17/24 Reason For Visit: Psychosis Subjective Notes: Conditional Voluntary Interim History: Pt slept most of the night. She had a BM. She reports rectal pain due to hemorroids. She denies SI/HI. continues to be most in her room. Diagnostics Vital Signs (24Hr): Vital Signs - 24 hr 04/16/24 20:00 Temperature 98.3 F Pulse Rate 88 Respiratory Rate 16 Blood Pressure 127/79 Pulse Oximetry 97 Oxygen Delivery Method Room Air BMI result Body Mass Index 24.9 Labs 04/05/24 15:38 04/05/24 15:38 Imaging Radiology Impressions: ITS Impressions Head CT 03/18/24 09:42 IMPRESSION: 1. No evidence of acute intracranial hemorrhage or edematous territorial infarction. 2. Mild to moderate underlying microangiopathy. 3. Arachnoid cyst in the right middle cranial fossa. Electronically signed by: Mino Arriaga DO 03/18/2024 06:26 PM EST RP Head CT 03/19/24 01:36 IMPRESSION: 1. Left frontal scalp soft tissue swelling. 2. No acute intracranial process seen. 3. Stable right middle cranial fossa arachnoid cyst. Electronically signed by: Andreas Olsen MD 03/19/2024 02:08 AM EST RP Head CT 04/05/24 16:20 IMPRESSION: 1. No acute intracranial hemorrhage or mass effect. 2. Stable right middle cranial fossa arachnoid cyst. Electronically signed by: Getachew Arana MD 04/05/2024 05:15 PM EST RP KUB X-Ray 04/16/24 13:57 IMPRESSION: Nonobstructive bowel gas pattern. Large colonic and rectal fecal material. Electronically signed by: Chencho Ugalde MD 04/16/2024 02:13 PM EST RP Medications Medications Current Medications Acetaminophen (Acetaminophen 325 Mg Tablet) 650 mg PO Q6H PRN PRN Reason: Headache/Pain Mild Scale (1-3) Al Hydroxide/Mg Hydroxide (Magnesium Hydrox/Alum Hydrox 30 Ml Oral.Susp) 30 ml PO Q6H PRN PRN Reason: Heartburn/Nausea Clozapine (Clozapine 100 Mg Tablet) 100 mg PO DAILY [facility] Last Admin: 04/17/24 09:02 Dose: 100 mg Clozapine (Clozapine 100 Mg Tablet) 100 mg PO DAILY@1230 [facility] Last Admin: 04/16/24 11:53 Dose: 100 mg Clozapine (Clozapine 100 Mg Tablet) 200 mg PO BEDTIME [facility] Last Admin: 04/16/24 20:48 Dose: 200 mg Famotidine (Famotidine 20 Mg Tablet) 20 mg PO DAILY [facility] Last Admin: 04/17/24 09:01 Dose: 20 mg Hydroxyzine HCl (Hydroxyzine Hcl 25 Mg Tablet) 25 mg PO Q6H PRN PRN Reason: Anxiety Last Admin: 04/15/24 20:24 Dose: 25 mg Lamotrigine (Lamotrigine 25 Mg Tablet) 50 mg PO BID [facility] Last Admin: 04/17/24 09:02 Dose: 50 mg Levothyroxine Sodium (Levothyroxine Sodium 75 Mcg Tablet) 75 mcg PO DAILY@0600 [facility] Last Admin: 04/17/24 06:08 Dose: 75 mcg Magnesium Hydroxide (Milk Of Magnesia 30 Ml Oral.Susp) 30 ml PO BID PRN PRN Reason: Constipation Last Admin: 04/16/24 16:24 Dose: 30 ml Nicotine Polacrilex (Nicotine Polacrilex 2 Mg Gum) 2 mg BUCCAL Q2H PRN PRN Reason: Nicotine Cravings Polyethylene Glycol (Polyethylene Glycol 3350 17 Gm Powd.Pack) 17 gm PO DAILY PRN PRN Reason: Constipation Risperidone (Risperidone 3 Mg Tablet) 6 mg PO BID [facility] Last Admin: 04/17/24 09:02 Dose: 6 mg Senna (Sennosides 8.6 Mg Tablet) 8.6 mg PO DAILY [facility] Last Admin: 04/17/24 09:01 Dose: 8.6 mg Trazodone HCl (Trazodone Hcl 50 Mg Tablet) 50 mg PO BEDTIME MRX1 PRN PRN Reason: Insomnia Last Admin: 04/11/24 20:12 Dose: 50 mg Allergies Allergies Allergy/AdvReac Type Severity Reaction Status Date / Time trifluoperazine Allergy Unknown Verified 03/11/24 14:16 [From Stelazine] Assessment & Plan Assessment & Plan (1) Schizophrenia: Status: Acute Code(s): F20.9 - Schizophrenia, unspecified Plan Patient is a 73-year-old female with a PMH significant for HTN, post op VTE 2 years ago, hypothyroidism, and mood disorder who was admitted to [facility] after eloping from [facility] and walking into traffic on purpose. Patient apparently believes a friend is writing a horrible story about and does not want to live after everyone reads the book as she believes everyone will hate her. Hospitalist consult for ECT risk stratification. ECT risk stratification Previously underwent ECT without complications in 1998 Currently no significant medical complaints or PMH EKG from 7 days prior at time of admission negative for ischemia RCRI 0 points, class I risk Will repeat EKG before completing risk stratification 04/15/24: Continue current regime and plan. Plan 04/17 ordered hydrocortisone rectal for hemorroids. Reason for continued inpatient stay Substantial Risk for: inability to function Time Spent With Patient Time: Total time managing care of this patient today ____ minutes.
[2024-04-17] MEDS: Hydrocortisone 2.5 % Rectal Cr 30 GM TUBE 1 APPL PR (14:53)
[2024-04-17] MEDS: cloZAPine 100 MG TABLET 200 MG PO (20:18)
[2024-04-18] MEDS: polyethylene glycoL 3350 17 GM POWD.PACK PO (00:24)
[2024-04-18] MEDS: hydrOXYzine HCL 25 MG TABLET PO (00:27)
[2024-04-18] MEDS: Acetaminophen 325 MG TABLET 650 MG PO (00:27)
[2024-04-18] MEDS: traZODone HCL 50 MG TABLET PO ×2 (03:04→20:27)
[2024-04-18] MEDS: Levothyroxine Sodium 75 MCG TABLET PO (06:09)
[2024-04-18] MEDS: Milk of Magnesia 30 ML ORAL.SUSP PO ×2 (06:10→20:50)
--- NOTE | 2024-04-18 06:14 | PC.NURSE ---
patient c/o being backed up c/o pain, given Miramax and Tylenol at 0300 without effect on constipation complaint, MOM at 0600, BM smears with small thin BM in toilet, constant smears when wiping but no real result, patient reported and enema the other day but still feels backed up will pass along to day shift in report
[2024-04-18 09:05] VITALS: BP 111/64; PULSE 85; RESP 16; TEMP 36.8; O2SAT 97
[2024-04-18] MEDS: cloZAPine 100 MG TABLET PO ×2 (09:14→14:13)
[2024-04-18] MEDS: lamoTRIgine 25 MG TABLET 50 MG PO ×2 (09:14→20:27)
[2024-04-18] MEDS: Famotidine 20 MG TABLET PO (09:15)
[2024-04-18] MEDS: Sennosides 8.6 MG TABLET PO (09:15)
[2024-04-18] MEDS: risperiDONE 3 MG TABLET 6 MG PO ×2 (09:16→20:26)
[2024-04-18] MEDS: Hydrocortisone 2.5 % Rectal Cr 30 GM TUBE 1 APPL PR (09:17)
[2024-04-18] MEDS: bisacodyL 10 MG SUPP.RECT PR (14:13)
--- NOTE | 2024-04-18 15:21 | HO.PSYCHPN ---
Subjective Subjective Date of Service: 04/18/24 Reason For Visit: Psychosis Interim History: Pt seen,discussed with the team Plan of care reviewed. Pt visiting with her daugher this a.m. and appears well engaged. Constipation is an issue. Team is working diligently with her to resolve this. Today, she used suppository and fleet to assist in relief. No other symptoms reported today. Medication Compliance: Yes Side effects from medications: No Attending Groups: Yes Review of Systems constipation Review of Systems Review of Systems constipation Mental Status Exam Mental Status Exam Patient Appearance: Appropriate Patient Orientation: Person and Situation Level of Consciousness: Awake Patient Behavior: Guarded and Passive Mood Description: Withdrawn Affect Description: Constricted Patient Cognition Impaired: Yes Ability to Follow Directions: Good Speech Pattern: Clear Hallucinations: None Delusions: Paranoid Ideation Thought Process: Distracted and Slowed Thinking Thought Content: positive for [place] and positive for Circumstantial Judgement: Fair Diagnostics Vital Signs (24Hr): Vital Signs - 24 hr 04/18/24 09:05 Temperature 98.3 F Pulse Rate 85 Respiratory Rate 16 Blood Pressure 111/64 Pulse Oximetry 97 Oxygen Delivery Method Room Air BMI result Body Mass Index 24.9 Labs 04/05/24 15:38 04/05/24 15:38 Imaging Radiology Impressions: ITS Impressions Head CT 03/18/24 09:42 IMPRESSION: 1. No evidence of acute intracranial hemorrhage or edematous territorial infarction. 2. Mild to moderate underlying microangiopathy. 3. Arachnoid cyst in the right middle cranial fossa. Electronically signed by: Mino Arriaga DO 03/18/2024 06:26 PM EST RP Head CT 03/19/24 01:36 IMPRESSION: 1. Left frontal scalp soft tissue swelling. 2. No acute intracranial process seen. 3. Stable right middle cranial fossa arachnoid cyst. Electronically signed by: Andreas Olsen MD 03/19/2024 02:08 AM EST RP Head CT 04/05/24 16:20 IMPRESSION: 1. No acute intracranial hemorrhage or mass effect. 2. Stable right middle cranial fossa arachnoid cyst. Electronically signed by: Getachew Arana MD 04/05/2024 05:15 PM EST RP KUB X-Ray 04/16/24 13:57 IMPRESSION: Nonobstructive bowel gas pattern. Large colonic and rectal fecal material. Electronically signed by: Chencho Ugalde MD 04/16/2024 02:13 PM [facility] Medications Medications Current Medications Acetaminophen (Acetaminophen 325 Mg Tablet) 650 mg PO Q6H PRN PRN Reason: Headache/Pain Mild Scale (1-3) Last Admin: 04/18/24 00:27 Dose: 650 mg Al Hydroxide/Mg Hydroxide (Magnesium Hydrox/Alum Hydrox 30 Ml Oral.Susp) 30 ml PO Q6H PRN PRN Reason: Heartburn/Nausea Clozapine (Clozapine 100 Mg Tablet) 100 mg PO DAILY [facility] Last Admin: 04/18/24 09:14 Dose: 100 mg Clozapine (Clozapine 100 Mg Tablet) 100 mg PO DAILY@1230 [facility] Last Admin: 04/18/24 14:13 Dose: 100 mg Clozapine (Clozapine 100 Mg Tablet) 200 mg PO BEDTIME [facility] Last Admin: 04/17/24 20:18 Dose: 200 mg Famotidine (Famotidine 20 Mg Tablet) 20 mg PO DAILY [facility] Last Admin: 04/18/24 09:15 Dose: 20 mg Hydrocortisone (Hydrocortisone 2.5 % Rectal Cr 30 Gm Tube) 1 appl [place] DAILY [facility] Last Admin: 04/18/24 09:17 Dose: 1 appl Hydroxyzine HCl (Hydroxyzine Hcl 25 Mg Tablet) 25 mg PO Q6H PRN PRN Reason: Anxiety Last Admin: 04/18/24 00:27 Dose: 25 mg Lamotrigine (Lamotrigine 25 Mg Tablet) 50 mg PO BID [facility] Last Admin: 04/18/24 09:14 Dose: 50 mg Levothyroxine Sodium (Levothyroxine Sodium 75 Mcg Tablet) 75 mcg PO DAILY@0600 [facility] Last Admin: 04/18/24 06:09 Dose: 75 mcg Magnesium Hydroxide (Milk Of Magnesia 30 Ml Oral.Susp) 30 ml PO BID PRN PRN Reason: Constipation Last Admin: 04/18/24 06:10 Dose: 30 ml Nicotine Polacrilex (Nicotine Polacrilex 2 Mg Gum) 2 mg BUCCAL Q2H PRN PRN Reason: Nicotine Cravings Polyethylene Glycol (Polyethylene Glycol 3350 17 Gm Powd.Pack) 17 gm PO DAILY PRN PRN Reason: Constipation Last Admin: 04/18/24 00:24 Dose: 17 gm Risperidone (Risperidone 3 Mg Tablet) 6 mg PO BID [facility] Last Admin: 04/18/24 09:16 Dose: 6 mg Senna (Sennosides 8.6 Mg Tablet) 8.6 mg PO DAILY [facility] Last Admin: 04/18/24 09:15 Dose: 8.6 mg Trazodone HCl (Trazodone Hcl 50 Mg Tablet) 50 mg PO BEDTIME MRX1 PRN PRN Reason: Insomnia Last Admin: 04/18/24 03:04 Dose: 50 mg Allergies Allergies Allergy/AdvReac Type Severity Reaction Status Date / Time trifluoperazine Allergy Unknown Verified 03/11/24 14:16 [From Stelazine] Assessment & Plan Assessment & Plan (1) Schizophrenia: Status: Acute Code(s): F20.9 - Schizophrenia, unspecified Plan Patient is a 73-year-old female with a PMH significant for HTN, post op VTE 2 years ago, hypothyroidism, and mood disorder who was admitted to [facility] after eloping from [facility] and walking into traffic on purpose. Patient apparently believes a friend is writing a horrible story about and does not want to live after everyone reads the book as she believes everyone will hate her. Hospitalist consult for ECT risk stratification. ECT risk stratification Previously underwent ECT without complications in 1998 Currently no significant medical complaints or PMH EKG from 7 days prior at time of admission negative for ischemia RCRI 0 points, class I risk Will repeat EKG before completing risk stratification 04/15/24: Continue current regime and plan. Plan 04/17 ordered hydrocortisone rectal for hemorroids. 04/18 ordered suppository/mineral oil fleet for constipation continue to monitor continue current regime and plan of care. Reason for continued inpatient stay Substantial Risk for: rapid decompensation Time Spent With Patient Time: Total time managing care of this patient today ____ minutes.
[2024-04-18] MEDS: Mineral OiL enema 133 ML ENEMA PR (17:37)
[2024-04-18 19:25] VITALS: RESP 16
[2024-04-18] MEDS: cloZAPine 100 MG TABLET 200 MG PO (20:27)
[2024-04-19] MEDS: Levothyroxine Sodium 75 MCG TABLET PO (06:39)
[2024-04-19 08:00] VITALS: BP 102/55; PULSE 87; RESP 16; TEMP 36.2; O2SAT 97
[2024-04-19] MEDS: cloZAPine 100 MG TABLET PO ×2 (08:26→12:18)
[2024-04-19] MEDS: Famotidine 20 MG TABLET PO (08:26)
[2024-04-19] MEDS: lamoTRIgine 25 MG TABLET 50 MG PO ×2 (08:27→20:11)
[2024-04-19] MEDS: Sennosides 8.6 MG TABLET PO (08:27)
[2024-04-19] MEDS: risperiDONE 3 MG TABLET 6 MG PO ×2 (08:27→20:10)
[2024-04-19] MEDS: Hydrocortisone 2.5 % Rectal Cr 30 GM TUBE 1 APPL PR (10:03)
--- NOTE | 2024-04-19 13:56 | HO.PSYCHPN ---
Subjective Subjective Date of Service: 04/19/24 Reason For Visit: Psychosis Interim History: Pt seen, discussed with team Plan of care reviewed. Alert, interactive with peers. Well engaged. Pt has been enjoying visits with her daughter Team reports pt is accepting of care and medications Medication Compliance: Yes Side effects from medications: No Attending Groups: Yes Review of Systems Acute medical concerns: No Review of Systems Review of Systems denies Mental Status Exam Mental Status Exam Patient Appearance: Appropriate Patient Orientation: Person and Situation Level of Consciousness: Awake Patient Behavior: Guarded and Passive Mood Description: Withdrawn Affect Description: Constricted Patient Cognition Impaired: Yes Ability to Follow Directions: Good Speech Pattern: Clear Hallucinations: None Delusions: Paranoid Ideation Thought Process: Distracted and Slowed Thinking Thought Content: positive for [place] and positive for Circumstantial Judgement: Fair Diagnostics Vital Signs (24Hr): Vital Signs - 24 hr 04/18/24 19:25 04/19/24 08:00 Temperature 97.1 F Pulse Rate 87 Respiratory Rate 16 16 Blood Pressure 102/55 L Pulse Oximetry 97 Oxygen Delivery Method Room Air BMI result Body Mass Index 24.9 Labs 04/05/24 15:38 04/05/24 15:38 Imaging Radiology Impressions: ITS Impressions Head CT 03/18/24 09:42 IMPRESSION: 1. No evidence of acute intracranial hemorrhage or edematous territorial infarction. 2. Mild to moderate underlying microangiopathy. 3. Arachnoid cyst in the right middle cranial fossa. Electronically signed by: Mino Arriaga DO 03/18/2024 06:26 PM EST RP Head CT 03/19/24 01:36 IMPRESSION: 1. Left frontal scalp soft tissue swelling. 2. No acute intracranial process seen. 3. Stable right middle cranial fossa arachnoid cyst. Electronically signed by: Andreas Olsen MD 03/19/2024 02:08 AM EST RP Head CT 04/05/24 16:20 IMPRESSION: 1. No acute intracranial hemorrhage or mass effect. 2. Stable right middle cranial fossa arachnoid cyst. Electronically signed by: Getachew Arana MD 04/05/2024 05:15 PM EST RP KUB X-Ray 04/16/24 13:57 IMPRESSION: Nonobstructive bowel gas pattern. Large colonic and rectal fecal material. Electronically signed by: Chencho Ugalde MD 04/16/2024 02:13 PM [facility] Medications Medications Current Medications Acetaminophen (Acetaminophen 325 Mg Tablet) 650 mg PO Q6H PRN PRN Reason: Headache/Pain Mild Scale (1-3) Last Admin: 04/18/24 00:27 Dose: 650 mg Al Hydroxide/Mg Hydroxide (Magnesium Hydrox/Alum Hydrox 30 Ml Oral.Susp) 30 ml PO Q6H PRN PRN Reason: Heartburn/Nausea Clozapine (Clozapine 100 Mg Tablet) 100 mg PO DAILY [facility] Last Admin: 04/19/24 08:26 Dose: 100 mg Clozapine (Clozapine 100 Mg Tablet) 100 mg PO DAILY@1230 [facility] Last Admin: 04/19/24 12:18 Dose: 100 mg Clozapine (Clozapine 100 Mg Tablet) 200 mg PO BEDTIME [facility] Last Admin: 04/18/24 20:27 Dose: 200 mg Famotidine (Famotidine 20 Mg Tablet) 20 mg PO DAILY [facility] Last Admin: 04/19/24 08:26 Dose: 20 mg Hydrocortisone (Hydrocortisone 2.5 % Rectal Cr 30 Gm Tube) 1 appl [place] DAILY [facility] Last Admin: 04/19/24 10:03 Dose: 1 appl Hydroxyzine HCl (Hydroxyzine Hcl 25 Mg Tablet) 25 mg PO Q6H PRN PRN Reason: Anxiety Last Admin: 04/18/24 00:27 Dose: 25 mg Lamotrigine (Lamotrigine 25 Mg Tablet) 50 mg PO BID [facility] Last Admin: 04/19/24 08:27 Dose: 50 mg Levothyroxine Sodium (Levothyroxine Sodium 75 Mcg Tablet) 75 mcg PO DAILY@0600 [facility] Last Admin: 04/19/24 06:39 Dose: 75 mcg Magnesium Hydroxide (Milk Of Magnesia 30 Ml Oral.Susp) 30 ml PO BID PRN PRN Reason: Constipation Last Admin: 04/18/24 20:50 Dose: 30 ml Nicotine Polacrilex (Nicotine Polacrilex 2 Mg Gum) 2 mg BUCCAL Q2H PRN PRN Reason: Nicotine Cravings Polyethylene Glycol (Polyethylene Glycol 3350 17 Gm Powd.Pack) 17 gm PO DAILY PRN PRN Reason: Constipation Last Admin: 04/18/24 00:24 Dose: 17 gm Risperidone (Risperidone 3 Mg Tablet) 6 mg PO BID [facility] Last Admin: 04/19/24 08:27 Dose: 6 mg Senna (Sennosides 8.6 Mg Tablet) 8.6 mg PO DAILY [facility] Last Admin: 04/19/24 08:27 Dose: 8.6 mg Trazodone HCl (Trazodone Hcl 50 Mg Tablet) 50 mg PO BEDTIME MRX1 PRN PRN Reason: Insomnia Last Admin: 04/18/24 20:27 Dose: 50 mg Allergies Allergies Allergy/AdvReac Type Severity Reaction Status Date / Time trifluoperazine Allergy Unknown Verified 03/11/24 14:16 [From Stelazine] Assessment & Plan Assessment & Plan (1) Schizophrenia: Status: Acute Code(s): F20.9 - Schizophrenia, unspecified Plan Patient is a 73-year-old female with a PMH significant for HTN, post op VTE 2 years ago, hypothyroidism, and mood disorder who was admitted to [facility] after eloping from [facility] and walking into traffic on purpose. Patient apparently believes a friend is writing a horrible story about and does not want to live after everyone reads the book as she believes everyone will hate her. Hospitalist consult for ECT risk stratification. ECT risk stratification Previously underwent ECT without complications in 1998 Currently no significant medical complaints or PMH EKG from 7 days prior at time of admission negative for ischemia RCRI 0 points, class I risk Will repeat EKG before completing risk stratification 04/15/24: Continue current regime and plan. Plan 04/17 ordered hydrocortisone rectal for hemorroids. 04/18 ordered suppository/mineral oil fleet for constipation continue to monitor continue current regime and plan of care. 04/19 Continue current regime and plan of care. Reason for continued inpatient stay Substantial Risk for: rapid decompensation Time Spent With Patient Time: Total time managing care of this patient today ____ minutes.
[2024-04-19 20:00] VITALS: BP 143/91; PULSE 82; RESP 16; TEMP 36.9; O2SAT 97
[2024-04-19] MEDS: traZODone HCL 50 MG TABLET PO (20:09)
[2024-04-19] MEDS: cloZAPine 100 MG TABLET 200 MG PO (20:10)
[2024-04-20] MEDS: Levothyroxine Sodium 75 MCG TABLET PO (06:26)
[2024-04-20 08:22] VITALS: BP 117/67; PULSE 87; RESP 18; TEMP 36.7; O2SAT 97
[2024-04-20] MEDS: lamoTRIgine 25 MG TABLET 50 MG PO ×2 (08:24→20:54)
[2024-04-20] MEDS: cloZAPine 100 MG TABLET PO ×2 (08:25→12:08)
[2024-04-20] MEDS: Famotidine 20 MG TABLET PO (08:25)
[2024-04-20] MEDS: risperiDONE 3 MG TABLET 6 MG PO ×2 (08:25→20:55)
[2024-04-20] MEDS: Sennosides 8.6 MG TABLET PO (08:25)
[2024-04-20] MEDS: Hydrocortisone 2.5 % Rectal Cr 30 GM TUBE 1 APPL PR (09:24)
--- NOTE | 2024-04-20 14:29 | P.PNPSI_ITS ---
Subjective Subjective Date of Service: 04/20/24 Reason For Visit: Psychosis Subjective Notes: Conditional Voluntary Healthcare Proxy: Yes Interim History: The nursing staff reported the patient had been a little more awake and alert still isolative. Today her daughter came and visit and she was concerned about her paranoia. Apparently they taper her off Risperdal. Today is the hearing for the information of healthcare proxy. On interview the patient denies new symptoms Mental Status Exam Mental Status Exam Patient Appearance: Appropriate Patient Orientation: Person and Situation Level of Consciousness: Awake and Appropriate Patient Behavior: Guarded and Passive Mood Description: Withdrawn Affect Description: Constricted Patient Cognition Impaired: Yes Ability to Follow Directions: Good Speech Pattern: Clear Hallucinations: None Delusions: Paranoid Ideation and Ideas of Reference Thought Process: Distracted and Slowed Thinking Thought Content: positive for [place] and positive for [place] of Content Judgement: Fair Diagnostics Vital Signs (24Hr): Vital Signs - 24 hr 04/19/24 20:00 04/20/24 08:22 Temperature 98.4 F 98.1 F Pulse Rate 82 87 Respiratory Rate 16 18 Blood Pressure 143/91 H 117/67 Pulse Oximetry 97 97 Oxygen Delivery Method Room Air Room Air BMI result Body Mass Index 24.9 Labs 04/05/24 15:38 04/05/24 15:38 Imaging Radiology Impressions: ITS Impressions Head CT 03/18/24 09:42 IMPRESSION: 1. No evidence of acute intracranial hemorrhage or edematous territorial infarction. 2. Mild to moderate underlying microangiopathy. 3. Arachnoid cyst in the right middle cranial fossa. Electronically signed by: Mino Arriaga DO 03/18/2024 06:26 PM EST RP Head CT 03/19/24 01:36 IMPRESSION: 1. Left frontal scalp soft tissue swelling. 2. No acute intracranial process seen. 3. Stable right middle cranial fossa arachnoid cyst. Electronically signed by: Andreas Olsen MD 03/19/2024 02:08 AM EST RP Head CT 04/05/24 16:20 IMPRESSION: 1. No acute intracranial hemorrhage or mass effect. 2. Stable right middle cranial fossa arachnoid cyst. Electronically signed by: Getachew Arana MD 04/05/2024 05:15 PM EST RP KUB X-Ray 04/16/24 13:57 IMPRESSION: Nonobstructive bowel gas pattern. Large colonic and rectal fecal material. Electronically signed by: Chencho Ugalde MD 04/16/2024 02:13 PM [facility] Medications Medications Current Medications Acetaminophen (Acetaminophen 325 Mg Tablet) 650 mg PO Q6H PRN PRN Reason: Headache/Pain Mild Scale (1-3) Last Admin: 04/18/24 00:27 Dose: 650 mg Al Hydroxide/Mg Hydroxide (Magnesium Hydrox/Alum Hydrox 30 Ml Oral.Susp) 30 ml PO Q6H PRN PRN Reason: Heartburn/Nausea Clozapine (Clozapine 100 Mg Tablet) 100 mg PO DAILY [facility] Last Admin: 04/20/24 08:25 Dose: 100 mg Clozapine (Clozapine 100 Mg Tablet) 100 mg PO DAILY@1230 [facility] Last Admin: 04/20/24 12:08 Dose: 100 mg Clozapine (Clozapine 100 Mg Tablet) 200 mg PO BEDTIME [facility] Last Admin: 04/19/24 20:10 Dose: 200 mg Famotidine (Famotidine 20 Mg Tablet) 20 mg PO DAILY [facility] Last Admin: 04/20/24 08:25 Dose: 20 mg Hydrocortisone (Hydrocortisone 2.5 % Rectal Cr 30 Gm Tube) 1 appl [place] DAILY [facility] Last Admin: 04/20/24 09:24 Dose: 1 appl Hydroxyzine HCl (Hydroxyzine Hcl 25 Mg Tablet) 25 mg PO Q6H PRN PRN Reason: Anxiety Last Admin: 04/18/24 00:27 Dose: 25 mg Lamotrigine (Lamotrigine 25 Mg Tablet) 50 mg PO BID [facility] Last Admin: 04/20/24 08:24 Dose: 50 mg Levothyroxine Sodium (Levothyroxine Sodium 75 Mcg Tablet) 75 mcg PO DAILY@0600 [facility] Last Admin: 04/20/24 06:26 Dose: 75 mcg Magnesium Hydroxide (Milk Of Magnesia 30 Ml Oral.Susp) 30 ml PO BID PRN PRN Reason: Constipation Last Admin: 04/18/24 20:50 Dose: 30 ml Nicotine Polacrilex (Nicotine Polacrilex 2 Mg Gum) 2 mg BUCCAL Q2H PRN PRN Reason: Nicotine Cravings Polyethylene Glycol (Polyethylene Glycol 3350 17 Gm Powd.Pack) 17 gm PO DAILY PRN PRN Reason: Constipation Last Admin: 04/18/24 00:24 Dose: 17 gm Risperidone (Risperidone 3 Mg Tablet) 6 mg PO BID [facility] Last Admin: 04/20/24 08:25 Dose: 6 mg Senna (Sennosides 8.6 Mg Tablet) 8.6 mg PO DAILY [facility] Last Admin: 04/20/24 08:25 Dose: 8.6 mg Trazodone HCl (Trazodone Hcl 50 Mg Tablet) 50 mg PO BEDTIME MRX1 PRN PRN Reason: Insomnia Last Admin: 04/19/24 20:09 Dose: 50 mg Allergies Allergies Allergy/AdvReac Type Severity Reaction Status Date / Time trifluoperazine Allergy Unknown Verified 03/11/24 14:16 [From Stelazine] Assessment & Plan Assessment & Plan (1) Schizophrenia: Status: Acute Code(s): F20.9 - Schizophrenia, unspecified Plan Patient is a 73-year-old female with a PMH significant for HTN, post op VTE 2 years ago, hypothyroidism, and mood disorder who was admitted to [facility] after eloping from [facility] and walking into traffic on purpose. Patient apparently believes a friend is writing a horrible story about and does not want to live after everyone reads the book as she believes everyone will hate her. Hospitalist consult for ECT risk stratification. ECT risk stratification Previously underwent ECT without complications in 1998 Currently no significant medical complaints or PMH EKG from 7 days prior at time of admission negative for ischemia RCRI 0 points, class I risk Will repeat EKG before completing risk stratification Plan 1. Information of healthcare proxy scheduled for April 20. 2. Continue Risperdal 6 mg p.o. b.i.d.. 3. Clozaril has been changed to 100 mg p.o. b.i.d. and 200 mg p.o. q.h.s. for with over-sedation and falls. 4. Continue with same treatment. 5. We will reassess with the possibility of ECT. Reason for continued inpatient stay Substantial Risk for: inability to function, rapid decompensation and med/psych decompensation Time Spent With Patient Time: Total time managing care of this patient today __20__ minutes.
[2024-04-20 20:00] VITALS: RESP 18
[2024-04-20] MEDS: cloZAPine 100 MG TABLET 200 MG PO (20:54)
[2024-04-20] MEDS: hydrOXYzine HCL 25 MG TABLET PO (20:55)
[2024-04-20] MEDS: traZODone HCL 50 MG TABLET PO (20:55)
[2024-04-21] MEDS: Levothyroxine Sodium 75 MCG TABLET PO (06:10)
[2024-04-21 08:00] VITALS: BP 122/71; PULSE 94; RESP 18; TEMP 36.1; O2SAT 97
[2024-04-21] MEDS: cloZAPine 100 MG TABLET PO ×2 (08:51→12:42)
[2024-04-21] MEDS: lamoTRIgine 25 MG TABLET 50 MG PO ×2 (08:51→21:23)
[2024-04-21] MEDS: Sennosides 8.6 MG TABLET PO (08:52)
[2024-04-21] MEDS: Famotidine 20 MG TABLET PO (08:52)
[2024-04-21] MEDS: risperiDONE 3 MG TABLET 6 MG PO ×2 (08:52→21:23)
[2024-04-21] MEDS: Hydrocortisone 2.5 % Rectal Cr 30 GM TUBE 1 APPL PR (10:36)
--- NOTE | 2024-04-21 15:01 | HO.PSYCHPN ---
Subjective Subjective Date of Service: 04/21/24 Reason For Visit: Psychosis Subjective Notes: Conditional Voluntary Healthcare Proxy: Yes (Healthcare proxy affirmed on court) Interim History: The nursing staff reported the patient had been out in the milieu pleasant cooperative eating well. Isolative in [place] slept 7 hours. On interview the patient denies new symptoms. Yesterday her daughter talked with the social research assistant reported that we want to do ECT even though that she does not look so this so we are going to discuss this later on in the week. Mental Status Exam Mental Status Exam Patient Appearance: Appropriate Patient Orientation: Person and Situation Level of Consciousness: Awake and Appropriate Patient Behavior: Guarded and Passive Mood Description: Withdrawn Affect Description: Constricted Patient Cognition Impaired: Yes Ability to Follow Directions: Good Speech Pattern: Clear Hallucinations: None Delusions: Not Present Thought Process: Distracted and Linear Thought Content: positive for [place] and positive for Poverty of Content Judgement: Fair Diagnostics Vital Signs (24Hr): Vital Signs - 24 hr 04/20/24 20:00 04/21/24 08:00 Temperature 97.0 F Pulse Rate 94 Respiratory Rate 18 18 Blood Pressure 122/71 Pulse Oximetry 97 Oxygen Delivery Method Room Air BMI result Body Mass Index 24.9 Labs 04/05/24 15:38 04/05/24 15:38 Imaging Radiology Impressions: ITS Impressions Head CT 03/18/24 09:42 IMPRESSION: 1. No evidence of acute intracranial hemorrhage or edematous territorial infarction. 2. Mild to moderate underlying microangiopathy. 3. Arachnoid cyst in the right middle cranial fossa. Electronically signed by: Mino Arriaga DO 03/18/2024 06:26 PM EST RP Head CT 03/19/24 01:36 IMPRESSION: 1. Left frontal scalp soft tissue swelling. 2. No acute intracranial process seen. 3. Stable right middle cranial fossa arachnoid cyst. Electronically signed by: Andreas Olsen MD 03/19/2024 02:08 AM EST RP Head CT 04/05/24 16:20 IMPRESSION: 1. No acute intracranial hemorrhage or mass effect. 2. Stable right middle cranial fossa arachnoid cyst. Electronically signed by: Getachew Arana MD 04/05/2024 05:15 PM EST RP KUB X-Ray 04/16/24 13:57 IMPRESSION: Nonobstructive bowel gas pattern. Large colonic and rectal fecal material. Electronically signed by: Chencho Ugalde MD 04/16/2024 02:13 PM [facility] Medic[place] Medications Current Medications Acetaminophen (Acetaminophen 325 Mg Tablet) 650 mg PO Q6H PRN PRN Reason: Headache/Pain Mild Scale (1-3) Last Admin: 04/18/24 00:27 Dose: 650 mg Al Hydroxide/Mg Hydroxide (Magnesium Hydrox/Alum Hydrox 30 Ml Oral.Susp) 30 ml PO Q6H PRN PRN Reason: Heartburn/Nausea Clozapine (Clozapine 100 Mg Tablet) 100 mg PO DAILY [facility] Last Admin: 04/21/24 08:51 Dose: 100 mg Clozapine (Clozapine 100 Mg Tablet) 100 mg PO DAILY@1230 [facility] Last Admin: 04/21/24 12:42 Dose: 100 mg Clozapine (Clozapine 100 Mg Tablet) 200 mg PO BEDTIME [facility] Last Admin: 04/20/24 20:54 Dose: 200 mg Famotidine (Famotidine 20 Mg Tablet) 20 mg PO DAILY [facility] Last Admin: 04/21/24 08:52 Dose: 20 mg Hydrocortisone (Hydrocortisone 2.5 % Rectal Cr 30 Gm Tube) 1 appl CA DAILY [facility] Last Admin: 04/21/24 10:36 Dose: 1 appl Hydroxyzine HCl (Hydroxyzine Hcl 25 Mg Tablet) 25 mg PO Q6H PRN PRN Reason: Anxiety Last Admin: 04/20/24 20:55 Dose: 25 mg Lamotrigine (Lamotrigine 25 Mg Tablet) 50 mg PO BID [facility] Last Admin: 04/21/24 08:51 Dose: 50 mg Levothyroxine Sodium (Levothyroxine Sodium 75 Mcg Tablet) 75 mcg PO DAILY@0600 [facility] Last Admin: 04/21/24 06:10 Dose: 75 mcg Magnesium Hydroxide (Milk Of Magnesia 30 Ml Oral.Susp) 30 ml PO BID PRN PRN Reason: Constipation Last Admin: 04/18/24 20:50 Dose: 30 ml Nicotine Polacrilex (Nicotine Polacrilex 2 Mg Gum) 2 mg BUCCAL Q2H PRN PRN Reason: Nicotine Cravings Polyethylene Glycol (Polyethylene Glycol 3350 17 Gm Powd.Pack) 17 gm PO DAILY PRN PRN Reason: Constipation Last Admin: 04/18/24 00:24 Dose: 17 gm Risperidone (Risperidone 3 Mg Tablet) 6 mg PO BID [facility] Last Admin: 04/21/24 08:52 Dose: 6 mg Senna (Sennosides 8.6 Mg Tablet) 8.6 mg PO DAILY [facility] Last Admin: 04/21/24 08:52 Dose: 8.6 mg Trazodone HCl (Trazodone Hcl 50 Mg Tablet) 50 mg PO BEDTIME MRX1 PRN PRN Reason: Insomnia Last Admin: 04/20/24 20:55 Dose: 50 mg Allergies Allergies Allergy/AdvReac Type Severity Reaction Status Date / Time trifluoperazine Allergy Unknown Verified 03/11/24 14:16 [From Stelazine] Assessment & Plan Assessment & Plan (1) Schizophrenia: Status: Acute Code(s): F20.9 - Schizophrenia, unspecified Plan Patient is a 73-year-old female with a PMH significant for HTN, post op VTE 2 years ago, hypothyroidism, and mood disorder who was admitted to [facility] after eloping from [facility] and walking into traffic on purpose. Patient apparently believes a friend is writing a horrible story about and does not want to live after everyone reads the book as she believes everyone will hate her. Hospitalist consult for ECT risk stratification. ECT risk stratification Previously underwent ECT without complications in 1998 Currently no significant medical complaints or PMH EKG from 7 days prior at time of admission negative for ischemia RCRI 0 points, class I risk Will repeat EKG before completing risk stratification Plan 1. Information of healthcare proxy scheduled for April 20. 2. Continue Risperdal 6 mg p.o. b.i.d.. 3. Clozaril has been changed to 100 mg p.o. b.i.d. and 200 mg p.o. q.h.s. for with over-sedation and falls. 4. Continue with same treatment. 5. We will reassess with the possibility of ECT. Reason for continued inpatient stay Substantial Risk for: inability to function, rapid decompensation and med/psych decompensation Time Spent With Patient Time: Total time managing care of this patient today __20__ minutes.
[2024-04-21 20:00] VITALS: BP 127/80; PULSE 88; RESP 16; TEMP 36.2; O2SAT 95
[2024-04-21] MEDS: cloZAPine 100 MG TABLET 200 MG PO (21:22)
[2024-04-21] MEDS: hydrOXYzine HCL 25 MG TABLET PO (21:23)
[2024-04-21] MEDS: traZODone HCL 50 MG TABLET PO (21:23)
[2024-04-22] MEDS: Levothyroxine Sodium 75 MCG TABLET PO (05:51)
[2024-04-22 07:42] LABS: Neut%MD 60.9 %; Neutrophils Absolute Auto 3.4 x10*3/uL (2.0-8.3); WBCANC 5.7 X10*3/uL
[2024-04-22 08:13] VITALS: BP 129/71; PULSE 94; RESP 18; TEMP 36.6; O2SAT 98
[2024-04-22] MEDS: risperiDONE 3 MG TABLET 6 MG PO ×2 (08:32→20:08)
[2024-04-22] MEDS: Sennosides 8.6 MG TABLET PO (08:33)
[2024-04-22] MEDS: Famotidine 20 MG TABLET PO (08:33)
[2024-04-22] MEDS: lamoTRIgine 25 MG TABLET 50 MG PO ×2 (08:33→20:09)
[2024-04-22] MEDS: cloZAPine 100 MG TABLET PO ×2 (08:33→12:28)
[2024-04-22] MEDS: Hydrocortisone 2.5 % Rectal Cr 30 GM TUBE 1 APPL PR (08:40)
--- NOTE | 2024-04-22 16:51 | P.PNPSI_ITS ---
Subjective Subjective Date of Service: 04/22/24 Reason For Visit: Psychosis Interim History: Met with patient; discussed with team Patient reports that she is feeling a little better. She said she can tell that her anxiety is down because she is out of her room more and able to be more social. She denies SI saying those thoughts have resolved and says that auditory hallucinations are subdued. Patient reports she is constipated and has not had a bowel movement in a week; discussed options and she agreed to start MiraLax Mental Status Exam Mental Status Exam Narrative: Pt is alert and oriented; behavior is cooperative, friendly and calm; patient is not in distress; dressed in casual attire with unkempt hair but adequate hygiene; mood is described as doing okay... A little better and affect congruent, more calm; eye contact appropriate; Speech is normal rate, volume and prosody and not pressured; no psychomotor agitation/retardation present; thought process is organized and goal directed; Thought content is on tx; no delusional thinking expressed; says SI has resolved; no HI. Says AH is subdued. Patients insight and judgment improving Diagnostics Vital Signs (24Hr): Vital Signs - 24 hr 04/21/24 20:00 04/22/24 08:13 Temperature 97.1 F 97.8 F Pulse Rate 88 94 Respiratory Rate 16 18 Blood Pressure 127/80 129/71 Pulse Oximetry 95 98 Oxygen Delivery Method Room Air Room Air BMI result Body Mass Index 24.9 Labs 04/05/24 15:38 04/05/24 15:38 Labs: Laboratory Results - last 48 hr 04/22/24 07:29 Absolute Neuts (auto) 3.4 Imaging Radiology Impressions: ITS Impressions Head CT 03/18/24 09:42 IMPRESSION: 1. No evidence of acute intracranial hemorrhage or edematous territorial infarction. 2. Mild to moderate underlying microangiopathy. 3. Arachnoid cyst in the right middle cranial fossa. Electronically signed by: Mino Arriaga DO 03/18/2024 06:26 PM EST RP Head CT 03/19/24 01:36 IMPRESSION: 1. Left frontal scalp soft tissue swelling. 2. No acute intracranial process seen. 3. Stable right middle cranial fossa arachnoid cyst. Electronically signed by: Andreas Olsen MD 03/19/2024 02:08 AM EST RP Head CT 04/05/24 16:20 IMPRESSION: 1. No acute intracranial hemorrhage or mass effect. 2. Stable right middle cranial fossa arachnoid cyst. Electronically signed by: Getachew Arana MD 04/05/2024 05:15 PM EST RP KUB X-Ray 04/16/24 13:57 IMPRESSION: Nonobstructive bowel gas pattern. Large colonic and rectal fecal material. Electronically signed by: Chencho Ugalde MD 04/16/2024 02:13 PM EST RP Medications Medications Current Medications Acetaminophen (Acetaminophen 325 Mg Tablet) 650 mg PO Q6H PRN PRN Reason: Headache/Pain Mild Scale (1-3) Last Admin: 04/18/24 00:27 Dose: 650 mg Al Hydroxide/Mg Hydroxide (Magnesium Hydrox/Alum Hydrox 30 Ml Oral.Susp) 30 ml PO Q6H PRN PRN Reason: Heartburn/Nausea Clozapine (Clozapine 100 Mg Tablet) 100 mg PO DAILY [facility] Last Admin: 04/22/24 08:33 Dose: 100 mg Clozapine (Clozapine 100 Mg Tablet) 100 mg PO DAILY@1230 [facility] Last Admin: 04/22/24 12:28 Dose: 100 mg Clozapine (Clozapine 100 Mg Tablet) 200 mg PO BEDTIME [facility] Last Admin: 04/21/24 21:22 Dose: 200 mg Famotidine (Famotidine 20 Mg Tablet) 20 mg PO DAILY [facility] Last Admin: 04/22/24 08:33 Dose: 20 mg Hydrocortisone (Hydrocortisone 2.5 % Rectal Cr 30 Gm Tube) 1 appl CA DAILY [facility] Last Admin: 04/22/24 08:40 Dose: 1 appl Hydroxyzine HCl (Hydroxyzine Hcl 25 Mg Tablet) 25 mg PO Q6H PRN PRN Reason: Anxiety Last Admin: 04/21/24 21:23 Dose: 25 mg Lamotrigine (Lamotrigine 25 Mg Tablet) 50 mg PO BID [facility] Last Admin: 04/22/24 08:33 Dose: 50 mg Levothyroxine Sodium (Levothyroxine Sodium 75 Mcg Tablet) 75 mcg PO DAILY@0600 [facility] Last Admin: 04/22/24 05:51 Dose: 75 mcg Magnesium Hydroxide (Milk Of Magnesia 30 Ml Oral.Susp) 30 ml PO BID PRN PRN Reason: Constipation Last Admin: 04/18/24 20:50 Dose: 30 ml Nicotine Polacrilex (Nicotine Polacrilex 2 Mg Gum) 2 mg BUCCAL Q2H PRN PRN Reason: Nicotine Cravings Polyethylene Glycol (Polyethylene Glycol 3350 17 Gm Powd.Pack) 17 gm PO DAILY PRN PRN Reason: Constipation Last Admin: 04/18/24 00:24 Dose: 17 gm Risperidone (Risperidone 3 Mg Tablet) 6 mg PO BID [facility] Last Admin: 04/22/24 08:32 Dose: 6 mg Senna (Sennosides 8.6 Mg Tablet) 8.6 mg PO DAILY [facility] Last Admin: 04/22/24 08:33 Dose: 8.6 mg Trazodone HCl (Trazodone Hcl 50 Mg Tablet) 50 mg PO BEDTIME MRX1 PRN PRN Reason: Insomnia Last Admin: 04/21/24 21:23 Dose: 50 mg Allergies Allergies Allergy/AdvReac Type Severity Reaction Status Date / Time trifluoperazine Allergy Unknown Verified 03/11/24 14:16 [From Stelazine] Assessment & Plan Assessment & Plan (1) Schizophrenia: Status: Acute Code(s): F20.9 - Schizophrenia, unspecified (2) Diverticulosis: Status: Chronic Code(s): K57.90 - Diverticulosis of intestine, part unspecified, without perforation or abscess without bleeding Plan Patient is a 73-year-old female with a PMH significant for HTN, post op VTE 2 years ago, hypothyroidism, and mood disorder who was admitted to [facility] after eloping from [facility] and walking into traffic on purpose. Patient apparently believes a friend is writing a horrible story about and does not want to live after everyone reads the book as she believes everyone will hate her. Hospitalist consult for ECT risk stratification. ECT risk stratification Previously underwent ECT without complications in 1998 Currently no significant medical complaints or PMH EKG from 7 days prior at time of admission negative for ischemia RCRI 0 points, class I risk Will repeat EKG before completing risk stratification 04/15/24: Continue current regime and plan. Plan 04/17 ordered hydrocortisone rectal for hemorroids. 04/18 ordered suppository/mineral oil fleet for constipation continue to monitor continue current regime and plan of care. 04/19 Continue current regime and plan of care. 04/22/24 Patient reports that she is feeling better. She said she can tell that her anxiety is down because she is out of her room more and able to be more social. She denies SI saying those thoughts have resolved and says that auditory hallucinations are subdued. Patient reports she is constipated and has not had a bowel movement in a week; discussed options and she agreed to start MiraLax -patient reports she has history of diagnosed diverticulosis Patient educated on: diagnosis, medication risk/benefits, therapeutic strategies and medical condition Informed Consent: understands Reason for continued inpatient stay Substantial Risk for: rapid decompensation Time Spent With Patient Time: Total time managing care of this patient today ____ minutes.
[2024-04-22] MEDS: polyethylene glycoL 3350 17 GM POWD.PACK PO (18:33)
[2024-04-22 19:47] VITALS: BP 147/82; PULSE 82; TEMP 36.4; O2SAT 98
[2024-04-22] MEDS: traZODone HCL 50 MG TABLET PO (20:09)
[2024-04-22] MEDS: cloZAPine 100 MG TABLET 200 MG PO (20:09)
[2024-04-22] MEDS: hydrOXYzine HCL 25 MG TABLET PO (20:09)
--- NOTE | 2024-04-23 | ECG_ITS ---
Test Reason : repeat text Blood Pressure : / mmHG Vent. Rate : 084 BPM Atrial Rate : 084 BPM P-R Int : 134 ms QRS Dur : 094 ms QT Int : 402 ms P-R-T Axes : 070 031 053 degrees QTc Int : 475 ms Normal sinus rhythm Normal ECG When compared with ECG of 06-APR-2024 21:28, Nonspecific T wave abnormality no longer evident in Lateral leads Referred By: Christiano Cerda Electronically Signed By:MARGAUX BERRIOS MD
[2024-04-23] MEDS: Levothyroxine Sodium 75 MCG TABLET PO (05:32)
[2024-04-23 07:00] VITALS: BMI 24.7
[2024-04-23 08:00] VITALS: BP 100/70; PULSE 85; RESP 18; TEMP 36.6; O2SAT 97
[2024-04-23] MEDS: risperiDONE 3 MG TABLET 6 MG PO ×2 (08:33→20:02)
[2024-04-23] MEDS: cloZAPine 100 MG TABLET PO ×2 (08:33→12:41)
[2024-04-23] MEDS: polyethylene glycoL 3350 17 GM POWD.PACK PO (08:34)
[2024-04-23] MEDS: lamoTRIgine 25 MG TABLET 50 MG PO ×2 (08:34→20:02)
[2024-04-23] MEDS: Famotidine 20 MG TABLET PO (08:34)
[2024-04-23] MEDS: Sennosides 8.6 MG TABLET PO (08:34)
[2024-04-23] MEDS: Hydrocortisone 2.5 % Rectal Cr 30 GM TUBE 1 APPL PR (11:31)
--- NOTE | 2024-04-23 12:17 | HO.PSYCHPN ---
Subjective Subjective Date of Service: 04/23/24 Reason For Visit: Psychosis Subjective Notes: Conditional Voluntary Healthcare Proxy: Yes Interim History: The nursing staff reported the patient had been with flat affect, eating well complained of constipation. She had been social with some peers, slept 8 hours. The dialysis social worker reported that her daughter is invested in having ECT since she looks depressed. On interview the patient denies new symptoms pleasantly confused we were going to discuss about the possibility of ECT. Mental Status Exam Mental Status Exam Patient Appearance: Appropriate Patient Orientation: Person and Situation Level of Consciousness: Awake and Appropriate Patient Behavior: Guarded and Passive Mood Description: Withdrawn Affect Description: Constricted Patient Cognition Impaired: Yes Ability to Follow Directions: Good Speech Pattern: Clear Hallucinations: None Delusions: Paranoid Ideation and Ideas of Reference Thought Process: Distracted and Slowed Thinking Thought Content: positive for [place] and positive for Poverty of Content Judgement: Poor Diagnostics Vital Signs (24Hr): Vital Signs - 24 hr 04/22/24 19:47 04/23/24 08:00 Temperature 97.6 F 97.8 F Pulse Rate 82 85 Respiratory Rate 18 Blood Pressure 147/82 H 100/70 Pulse Oximetry 98 97 Oxygen Delivery Method Room Air Room Air BMI result Body Mass Index 24.9 Labs 04/05/24 15:38 04/05/24 15:38 Labs: Laboratory Results - last 48 hr 04/22/24 07:29 Absolute Neuts (auto) 3.4 Imaging Radiology Impressions: ITS Impressions Head CT 03/18/24 09:42 IMPRESSION: 1. No evidence of acute intracranial hemorrhage or edematous territorial infarction. 2. Mild to moderate underlying microangiopathy. 3. Arachnoid cyst in the right middle cranial fossa. Electronically signed by: Mino Arriaga DO 03/18/2024 06:26 PM EST RP Head CT 03/19/24 01:36 IMPRESSION: 1. Left frontal scalp soft tissue swelling. 2. No acute intracranial process seen. 3. Stable right middle cranial fossa arachnoid cyst. Electronically signed by: Andreas Olsen MD 03/19/2024 02:08 AM EST RP Head CT 04/05/24 16:20 IMPRESSION: 1. No acute intracranial hemorrhage or mass effect. 2. Stable right middle cranial fossa arachnoid cyst. Electronically signed by: Getachew Arana MD 04/05/2024 05:15 PM EST RP KUB X-Ray 04/16/24 13:57 IMPRESSION: Nonobstructive bowel gas pattern. Large colonic and rectal fecal material. Electronically signed by: Chencho Ugalde MD 04/16/2024 02:13 PM EST RP Medications Medications Current Medications Acetaminophen (Acetaminophen 325 Mg Tablet) 650 mg PO Q6H PRN PRN Reason: Headache/Pain Mild Scale (1-3) Last Admin: 04/18/24 00:27 Dose: 650 mg Al Hydroxide/Mg Hydroxide (Magnesium Hydrox/Alum Hydrox 30 Ml Oral.Susp) 30 ml PO Q6H PRN PRN Reason: Heartburn/Nausea Clozapine (Clozapine 100 Mg Tablet) 100 mg PO DAILY [facility] Last Admin: 04/23/24 08:33 Dose: 100 mg Clozapine (Clozapine 100 Mg Tablet) 100 mg PO DAILY@1230 [facility] Last Admin: 04/22/24 12:28 Dose: 100 mg Clozapine (Clozapine 100 Mg Tablet) 200 mg PO BEDTIME [facility] Last Admin: 04/22/24 20:09 Dose: 200 mg Famotidine (Famotidine 20 Mg Tablet) 20 mg PO DAILY [facility] Last Admin: 04/23/24 08:34 Dose: 20 mg Hydrocortisone (Hydrocortisone 2.5 % Rectal Cr 30 Gm Tube) 1 appl [place] DAILY [facility] Last Admin: 04/23/24 11:31 Dose: 1 appl Hydroxyzine HCl (Hydroxyzine Hcl 25 Mg Tablet) 25 mg PO Q6H PRN PRN Reason: Anxiety Last Admin: 04/22/24 20:09 Dose: 25 mg Lamotrigine (Lamotrigine 25 Mg Tablet) 50 mg PO BID [facility] Last Admin: 04/23/24 08:34 Dose: 50 mg Levothyroxine Sodium (Levothyroxine Sodium 75 Mcg Tablet) 75 mcg PO DAILY@0600 [facility] Last Admin: 04/23/24 05:32 Dose: 75 mcg Magnesium Hydroxide (Milk Of Magnesia 30 Ml Oral.Susp) 30 ml PO BID PRN PRN Reason: Constipation Last Admin: 04/18/24 20:50 Dose: 30 ml Nicotine Polacrilex (Nicotine Polacrilex 2 Mg Gum) 2 mg BUCCAL Q2H PRN PRN Reason: Nicotine Cravings Polyethylene Glycol (Polyethylene Glycol 3350 17 Gm Powd.Pack) 17 gm PO DAILY PRN PRN Reason: Constipation Last Admin: 04/18/24 00:24 Dose: 17 gm Polyethylene Glycol (Polyethylene Glycol 3350 17 Gm Powd.Pack) 17 gm PO DAILY [facility] Last Admin: 04/23/24 08:34 Dose: 17 gm Risperidone (Risperidone 3 Mg Tablet) 6 mg PO BID [facility] Last Admin: 04/23/24 08:33 Dose: 6 mg Senna (Sennosides 8.6 Mg Tablet) 8.6 mg PO DAILY [facility] Last Admin: 04/23/24 08:34 Dose: 8.6 mg Trazodone HCl (Trazodone Hcl 50 Mg Tablet) 50 mg PO BEDTIME MRX1 PRN PRN Reason: Insomnia Last Admin: 04/22/24 20:09 Dose: 50 mg Allergies Allergies Allergy/AdvReac Type Severity Reaction Status Date / Time trifluoperazine Allergy Unknown Verified 03/11/24 14:16 [From Stelazine] Assessment & Plan Assessment & Plan (1) Schizophrenia: Status: Acute Code(s): F20.9 - Schizophrenia, unspecified (2) Diverticulosis: Status: Chronic Code(s): K57.90 - Diverticulosis of intestine, part unspecified, without perforation or abscess without bleeding Plan Patient is a 73-year-old female with a PMH significant for HTN, post op VTE 2 years ago, hypothyroidism, and mood disorder who was admitted to [facility] after eloping from [facility] and walking into traffic on purpose. Patient apparently believes a friend is writing a horrible story about and does not want to live after everyone reads the book as she believes everyone will hate her. Hospitalist consult for ECT risk stratification. ECT risk stratification Previously underwent ECT without complications in 1998 Currently no significant medical complaints or PMH EKG from 7 days prior at time of admission negative for ischemia RCRI 0 points, class I risk Will repeat EKG before completing risk stratification 04/15/24: Continue current regime and plan. Plan 1. Clozaril had been changed to Clozaril 100 mg p.o. b.i.d. and 200 mg p.o. q.h.s. that has helped her and avoid over-sedation. 2. Risperdal we will be kept on 6 mg p.o. b.i.d., as per daughter's report, whenever they tried to lower her psychosis worsened. 3. The patient is chronically psychotic and apparently at baseline she is always having auditory hallucinations she is used to that. 4. Information of healthcare proxy was done recently, his daughter reported that she needs ECT but so far she looks chronically psychotic and hypoactive. We will discuss the possibility of this treatment. 5. EKG ordered for today Reason for continued inpatient stay Substantial Risk for: inability to function, rapid decompensation and med/psych decompensation Time Spent With Patient Time: Total time managing care of this patient today __20__ minutes.
[2024-04-23 19:27] VITALS: BP 142/93; PULSE 90; TEMP 36.3; O2SAT 98
[2024-04-23] MEDS: cloZAPine 100 MG TABLET 200 MG PO (20:02)
[2024-04-24] MEDS: Levothyroxine Sodium 75 MCG TABLET PO (05:45)
[2024-04-24 08:00] VITALS: BP 114/68; PULSE 87; RESP 16; TEMP 36.2; O2SAT 98
[2024-04-24] MEDS: cloZAPine 100 MG TABLET PO ×3 (08:44→12:21)
[2024-04-24] MEDS: Sennosides 8.6 MG TABLET PO (08:44)
[2024-04-24] MEDS: Famotidine 20 MG TABLET PO (08:44)
[2024-04-24] MEDS: lamoTRIgine 25 MG TABLET 50 MG PO ×2 (08:44→20:03)
[2024-04-24] MEDS: risperiDONE 3 MG TABLET 6 MG PO ×2 (08:45→20:03)
[2024-04-24] MEDS: polyethylene glycoL 3350 17 GM POWD.PACK PO (09:06)
[2024-04-24] MEDS: Hydrocortisone 2.5 % Rectal Cr 30 GM TUBE 1 APPL PR (09:10)
--- NOTE | 2024-04-24 13:54 | HO.PSYCHPN ---
Subjective Subjective Date of Service: 04/24/24 Reason For Visit: Psychosis Subjective Notes: Conditional Voluntary Interim History: The nursing staff reported the patient had been out for meals, she had her EKG and we are ordering a hospitalist consult for ECT clearance. The patient had been compliant with medications and she had been social with her roommate. On interview the patient denies new symptoms. Mental Status Exam Mental Status Exam Patient Appearance: Appropriate Patient Orientation: Person and Situation Level of Consciousness: Awake Patient Behavior: Guarded and Passive Mood Description: Withdrawn Affect Description: Constricted Patient Cognition Impaired: Yes Ability to Follow Directions: Good Speech Pattern: Clear Hallucinations: Auditory Delusions: Paranoid Ideation and Ideas of Reference Thought Process: Distracted and Slowed Thinking Thought Content: positive for [place] and positive for Poverty of Content Judgement: Poor Diagnostics Vital Signs (24Hr): Vital Signs - 24 hr 04/23/24 19:27 04/24/24 08:00 Temperature 97.4 F 97.2 F Pulse Rate 90 87 Respiratory Rate 16 Blood Pressure 142/93 H 114/68 Pulse Oximetry 98 98 Oxygen Delivery Method Room Air Room Air BMI result Body Mass Index 24.7 Labs 04/05/24 15:38 04/05/24 15:38 Imaging Radiology Impressions: ITS Impressions Head CT 03/18/24 09:42 IMPRESSION: 1. No evidence of acute intracranial hemorrhage or edematous territorial infarction. 2. Mild to moderate underlying microangiopathy. 3. Arachnoid cyst in the right middle cranial fossa. Electronically signed by: Mino Arriaga DO 03/18/2024 06:26 PM EST RP Head CT 03/19/24 01:36 IMPRESSION: 1. Left frontal scalp soft tissue swelling. 2. No acute intracranial process seen. 3. Stable right middle cranial fossa arachnoid cyst. Electronically signed by: Andreas Olsen MD 03/19/2024 02:08 AM EST RP Head CT 04/05/24 16:20 IMPRESSION: 1. No acute intracranial hemorrhage or mass effect. 2. Stable right middle cranial fossa arachnoid cyst. Electronically signed by: Getachew Arana MD 04/05/2024 05:15 PM EST RP KUB X-Ray 04/16/24 13:57 IMPRESSION: Nonobstructive bowel gas pattern. Large colonic and rectal fecal material. Electronically signed by: Chencho Ugalde MD 04/16/2024 02:13 PM [facility] Medications Medications Current Medications Acetaminophen (Acetaminophen 325 Mg Tablet) 650 mg PO Q6H PRN PRN Reason: Headache/Pain Mild Scale (1-3) Last Admin: 04/18/24 00:27 Dose: 650 mg Al Hydroxide/Mg Hydroxide (Magnesium Hydrox/Alum Hydrox 30 Ml Oral.Susp) 30 ml PO Q6H PRN PRN Reason: Heartburn/Nausea Clozapine (Clozapine 100 Mg Tablet) 100 mg PO DAILY [facility] Last Admin: 04/24/24 12:17 Dose: 100 mg Clozapine (Clozapine 100 Mg Tablet) 100 mg PO DAILY@1230 [facility] Last Admin: 04/24/24 12:21 Dose: 100 mg Clozapine (Clozapine 100 Mg Tablet) 200 mg PO BEDTIME [facility] Last Admin: 04/23/24 20:02 Dose: 200 mg Famotidine (Famotidine 20 Mg Tablet) 20 mg PO DAILY [facility] Last Admin: 04/24/24 08:44 Dose: 20 mg Hydrocortisone (Hydrocortisone 2.5 % Rectal Cr 30 Gm Tube) 1 appl [place] DAILY [facility] Last Admin: 04/24/24 09:10 Dose: 1 appl Hydroxyzine HCl (Hydroxyzine Hcl 25 Mg Tablet) 25 mg PO Q6H PRN PRN Reason: Anxiety Last Admin: 04/22/24 20:09 Dose: 25 mg Lamotrigine (Lamotrigine 25 Mg Tablet) 50 mg PO BID [facility] Last Admin: 04/24/24 08:44 Dose: 50 mg Levothyroxine Sodium (Levothyroxine Sodium 75 Mcg Tablet) 75 mcg PO DAILY@0600 [facility] Last Admin: 04/24/24 05:45 Dose: 75 mcg Magnesium Hydroxide (Milk Of Magnesia 30 Ml Oral.Susp) 30 ml PO BID PRN PRN Reason: Constipation Last Admin: 04/18/24 20:50 Dose: 30 ml Nicotine Polacrilex (Nicotine Polacrilex 2 Mg Gum) 2 mg BUCCAL Q2H PRN PRN Reason: Nicotine Cravings Polyethylene Glycol (Polyethylene Glycol 3350 17 Gm Powd.Pack) 17 gm PO DAILY PRN PRN Reason: Constipation Last Admin: 04/18/24 00:24 Dose: 17 gm Polyethylene Glycol (Polyethylene Glycol 3350 17 Gm Powd.Pack) 17 gm PO DAILY [facility] Last Admin: 04/24/24 09:06 Dose: 17 gm Risperidone (Risperidone 3 Mg Tablet) 6 mg PO BID [facility] Last Admin: 04/24/24 08:45 Dose: 6 mg Senna (Sennosides 8.6 Mg Tablet) 8.6 mg PO DAILY [facility] Last Admin: 04/24/24 08:44 Dose: 8.6 mg Trazodone HCl (Trazodone Hcl 50 Mg Tablet) 50 mg PO BEDTIME MRX1 PRN PRN Reason: Insomnia Last Admin: 04/22/24 20:09 Dose: 50 mg Allergies Allergies Allergy/AdvReac Type Severity Reaction Status Date / Time trifluoperazine Allergy Unknown Verified 03/11/24 14:16 [From Stelazine] Assessment & Plan Assessment & Plan (1) Schizophrenia: Status: Acute Code(s): F20.9 - Schizophrenia, unspecified (2) Diverticulosis: Status: Chronic Code(s): K57.90 - Diverticulosis of intestine, part unspecified, without perforation or abscess without bleeding Plan Patient is a 73-year-old female with a PMH significant for HTN, post op VTE 2 years ago, hypothyroidism, and mood disorder who was admitted to [facility] after eloping from [facility] and walking into traffic on purpose. Patient apparently believes a friend is writing a horrible story about and does not want to live after everyone reads the book as she believes everyone will hate her. Hospitalist consult for ECT risk stratification. ECT risk stratification Previously underwent ECT without complications in 1998 Currently no significant medical complaints or PMH EKG from 7 days prior at time of admission negative for ischemia RCRI 0 points, class I risk Will repeat EKG before completing risk stratification 04/15/24: Continue current regime and plan. Plan 1. Clozaril had been changed to Clozaril 100 mg p.o. b.i.d. and 200 mg p.o. q.h.s. that has helped her and avoid over-sedation. 2. Risperdal we will be kept on 6 mg p.o. b.i.d., as per daughter's report, whenever they tried to lower her psychosis worsened. 3. The patient is chronically psychotic and apparently at baseline she is always having auditory hallucinations she is used to that. 4. Information of healthcare proxy was done recently, his daughter reported that she needs ECT but so far she looks chronically psychotic and hypoactive. We will discuss the possibility of this treatment. 5. EKG ordered with hospitalist consult for ECT clearance. Reason for continued inpatient stay Substantial Risk for: inability to function, rapid decompensation and med/psych decompensation Time Spent With Patient Time: Total time managing care of this patient today __20__ minutes.
[2024-04-24 20:00] VITALS: BP 134/76; PULSE 88; RESP 16; TEMP 36.1; O2SAT 100
[2024-04-24] MEDS: cloZAPine 100 MG TABLET 200 MG PO (20:03)
[2024-04-24] MEDS: traZODone HCL 50 MG TABLET PO (20:04)
[2024-04-24] MEDS: Milk of Magnesia 30 ML ORAL.SUSP PO (20:04)
[2024-04-24] MEDS: hydrOXYzine HCL 25 MG TABLET PO (20:04)
--- NOTE | 2024-04-24 21:25 | HO.PM.IMCN ---
History of Present Illness Data of Consult Service Date: 04/24/24 Requesting physician: Narayan Ball Primary Care Provider: Callum Field MD [facility] Reason for consult: ECT risk stratification Patient is a 74-year-old female with a past medical history significant for mood disorder, hypothyroid and stable right middle cranial fossa arachnoid cyst, consulted for ECT risk stratification. The patient had ECT risk stratification on back in the end of February but did not end up having ECT. There was a question of an arrhythmia at the time however multiple repeat EKGs did not show this and it was deemed to be an artifact. Most recent EKG yesterday also with normal sinus rhythm. She denies any chest pain, palpitations, shortness of breath, cough, fever, chills, seizure-like activity, issues with anesthesia in the past or bleeding sources including hematochezia, hematuria, hemoptysis or hematemesis. She does not have a history of any cardiac issues including arrhythmia, palpitations, MO or CHF. No pulmonary issues including COPD, asthma or sleep apnea. No history of a stroke or seizure. She does have a stable 4.5 cm right middle cranial fossa arachnoid cyst without any symptoms of increased intracranial pressure including headache, change in vision, weakness, nausea or vomiting. No history of bleeding disorders or again any history of issues with anesthesia. Review of Systems Constitutional: Constitutional: Denies chills, Denies fatigue, Denies fever(s) and Denies headache(s) Eyes: Eyes: Denies change in vision ENT: Denies headache(s), Denies nasal congestion, Denies nasal discharge and Denies sore throat Cardiovascular: Cardiovascular: Denies chest pain, Denies rapid heart rate, Denies leg edema, Denies lightheadedness and Denies dyspnea Respiratory: Respiratory: Denies chest congestion, Denies cough, Denies dyspnea and Denies wheezing Gastrointestinal: Gastrointestinal: Denies melena, Denies hematochezia, Denies coffee ground emesis, Reports constipation, Denies diarrhea, Denies nausea, Denies vomiting and Denies hematemesis Genitourinary: Genitourinary: Denies hematuria, Denies dysuria and Denies urinary urgency Musculoskeletal: Musculoskeletal: Denies back pain, Denies myalgias, Denies numbness and Denies tingling Integumentary/Breasts: Skin/Breast: Denies rash Neurologic: Denies confusion, Denies headache(s), Denies lack of coordination, Denies focal weakness, Denies numbness, Denies seizure-like activity and Denies tingling Psychiatric: Psychiatric: Reports as per HPI and Denies confusion Endocrine: Endocrine: Denies fatigue Hematologic/Lymphatic: Hematologic/Lymphatic: Denies easy bleeding and Denies easy bruising Allergic/Immunologic: Allergic/Immunologic: Denies wheezing [facility] Medical History (Updated 04/24/24 @ 21:31 by Mei Shelley PA-C) Diverticulosis Schizophrenia CKD (chronic kidney disease) Hyperlipidemia Type 2 diabetes mellitus Hypothyroidism HTN (hypertension) GERD (gastroesophageal reflux disease) Mood disorder Functional capacity: independent ambulation Social History (Updated 03/11/24 @ 11:53 by Starla Cordero DO) Household Members: None Household Members Other:: Lives at [facility] Housing: Assisted Living Facility Do you presently have visiting nurse or other home services: Yes Alcohol intake: current Comment: on 5 min checks Patient Tobacco Use Status: Former Tobacco user Tobacco use type: Cigarette Cigarette Packs Per Day: 3 Cigarettes Per Day: 60.0 Years Smoked: 16 Smoked in Last 30 Days: No Patient Interested in Nicotine Replacement: No Second Hand Smoke Exposure: No Use of substances other than those prescribed or required for medical reasons: No Currently Displaying Signs/Symptoms of Drug Intoxication Withdrawal: No Have you been hit, kicked, punched, or otherwise hurt by someone within the past year? If so, by whom?: No Do you feel safe in your current relationship?: No Current Relationship Is there a partner from a previous relationship who is making you feel unsafe now?: No Are you made to feel afraid or neglected: Yes (Pt reports she is afraid of the person writing the book about her.) Advance Directives: No Advance Directives Information Provided: Yes Do you have thoughts of harming others: None Do you have a plan to hurt others: No Plan Recently lost weight without trying: Unsure Nutrition Risks: No Nutritional Risk Patient : No : No Poor oral hygiene: No service: No Sexual orientation: Straight/Heterosexual Meds Allergies Allergy/AdvReac Type Severity Reaction Status Date / Time trifluoperazine Allergy Unknown Verified 03/11/24 14:16 [From Stelazine] Active Medications: Current Medications Acetaminophen (Acetaminophen 325 Mg Tablet) 650 mg PO Q6H PRN PRN Reason: Headache/Pain Mild Scale (1-3) Last Admin: 04/18/24 00:27 Dose: 650 mg Al Hydroxide/Mg Hydroxide (Magnesium Hydrox/Alum Hydrox 30 Ml Oral.Susp) 30 ml PO Q6H PRN PRN Reason: Heartburn/Nausea Clozapine (Clozapine 100 Mg Tablet) 100 mg PO DAILY [facility] Last Admin: 04/24/24 12:17 Dose: 100 mg Clozapine (Clozapine 100 Mg Tablet) 100 mg PO DAILY@1230 [facility] Last Admin: 04/24/24 12:21 Dose: 100 mg Clozapine (Clozapine 100 Mg Tablet) 200 mg PO BEDTIME [facility] Last Admin: 04/24/24 20:03 Dose: 200 mg Famotidine (Famotidine 20 Mg Tablet) 20 mg PO DAILY [facility] Last Admin: 04/24/24 08:44 Dose: 20 mg Hydrocortisone (Hydrocortisone 2.5 % Rectal Cr 30 Gm Tube) 1 appl [place] DAILY [facility] Last Admin: 04/24/24 09:10 Dose: 1 appl Hydroxyzine HCl (Hydroxyzine Hcl 25 Mg Tablet) 25 mg PO Q6H PRN PRN Reason: Anxiety Last Admin: 04/24/24 20:04 Dose: 25 mg Lamotrigine (Lamotrigine 25 Mg Tablet) 50 mg PO BID [facility] Last Admin: 04/24/24 20:03 Dose: 50 mg Levothyroxine Sodium (Levothyroxine Sodium 75 Mcg Tablet) 75 mcg PO DAILY@0600 [facility] Last Admin: 04/24/24 05:45 Dose: 75 mcg Magnesium Hydroxide (Milk Of Magnesia 30 Ml Oral.Susp) 30 ml PO BID PRN PRN Reason: Constipation Last Admin: 04/24/24 20:04 Dose: 30 ml Nicotine Polacrilex (Nicotine Polacrilex 2 Mg Gum) 2 mg BUCCAL Q2H PRN PRN Reason: Nicotine Cravings Polyethylene Glycol (Polyethylene Glycol 3350 17 Gm Powd.Pack) 17 gm PO DAILY PRN PRN Reason: Constipation Last Admin: 04/18/24 00:24 Dose: 17 gm Polyethylene Glycol (Polyethylene Glycol 3350 17 Gm Powd.Pack) 17 gm PO DAILY [facility] Last Admin: 04/24/24 09:06 Dose: 17 gm Risperidone (Risperidone 3 Mg Tablet) 6 mg PO BID [facility] Last Admin: 04/24/24 20:03 Dose: 6 mg Senna (Sennosides 8.6 Mg Tablet) 8.6 mg PO DAILY [facility] Last Admin: 04/24/24 08:44 Dose: 8.6 mg Trazodone HCl (Trazodone Hcl 50 Mg Tablet) 50 mg PO BEDTIME MRX1 PRN PRN Reason: Insomnia Last Admin: 04/24/24 20:04 Dose: 50 mg Home Medications ?Medication ?Instructions ?Recorded ?Confirmed ?Last Taken ?Type clozapine 100 mg tablet 100 mg PO DAILY 03/11/24 03/11/24 03/11/24 History clozapine 100 mg tablet 300 mg PO BEDTIME 03/11/24 03/11/24 03/10/24 History famotidine 20 mg tablet 20 mg PO DAILY 03/11/24 03/11/24 03/11/24 History lamotrigine 25 mg tablet 50 mg PO BID 03/11/24 03/11/24 03/11/24 History levothyroxine 75 mcg tablet 75 mcg PO DAILY 03/11/24 03/11/24 03/11/24 History risperidone 2 mg tablet 6 mg PO BID 03/11/24 03/11/24 03/11/24 History sennosides 8.6 mg tablet (senna) 8.6 mg PO DAILY PRN Constipation 03/11/24 03/11/24 Unknown History Physical Exam Vital Signs and Narrative: Vital Signs: Last Vital Signs Temp 97.2 F 04/24/24 08:00 Pulse 87 04/24/24 08:00 Resp 16 04/24/24 08:00 BP 114/68 04/24/24 08:00 Pulse Ox 98 04/24/24 08:00 O2 Del Method Room Air 04/24/24 08:00 BMI result Body Mass Index 24.7 General: AOx3, no acute distress Resp: CTA bilaterally CVS: S1, S2, RRR GI: +BS, NT, no distention Skin: Warm, dry Neuro: Cranial nerves II-XII grossly intact bilaterally. Motor grossly intact bilaterally Extremities: No LE edema Psych: Appropriate affect Const: General: No confusion Orientation/consciousness: No confusion Neuro: General: No confusion Results Labs 04/05/24 15:38 04/05/24 15:38 Assessment and Plan (1) Pre-op evaluation: Status: Acute Plan Patient is a 74-year-old female with a past medical history significant for mood disorder, hypothyroid and stable right middle cranial fossa arachnoid cyst, consulted for ECT risk stratification. Based on past medical history and exam there are no apparent medical contraindications to the planned procedure. The patient does have a stable right middle cranial fossa arachnoid cyst without any symptoms have increased intracranial pressure. If symptoms arise including headache, change in vision, nausea, vomiting or weakness would recommend neurological evaluation. EKG with NSR. Anesthesia risk stratification as per anesthesia. RCRI I score 0, risk class 1. No further treatment or workup indicated at this time. Thank you for allowing me to participate in the pt's care. Signing off at this time. Please contact the medical team if any questions or concerns.
[2024-04-25] MEDS: Levothyroxine Sodium 75 MCG TABLET PO (06:00)
[2024-04-25 08:06] VITALS: BP 115/78; PULSE 85; RESP 18; TEMP 36.6; O2SAT 98
[2024-04-25] MEDS: risperiDONE 3 MG TABLET 6 MG PO ×2 (08:12→20:34)
[2024-04-25] MEDS: cloZAPine 100 MG TABLET PO ×2 (08:12→12:25)
[2024-04-25] MEDS: Famotidine 20 MG TABLET PO (08:13)
[2024-04-25] MEDS: lamoTRIgine 25 MG TABLET 50 MG PO ×2 (08:13→20:34)
--- NOTE | 2024-04-25 09:42 | P.PNPSI_ITS ---
Subjective Subjective Date of Service: 04/25/24 Reason For Visit: Psychosis Subjective Notes: Conditional Voluntary Interim History: Met with patient and discussed with Nursing. Has been out of her room more, engaging more in the milieu, eating ice significantly improving. With rewriter able to acknowledge feeling better from a mood perspective in getting outside more. Also able to name medications how she finds them helpful. Sleep has been good. Feels safe on the unit. Denies SI. No med concerns. Medication Compliance: Yes Side effects from medications: No Attending Groups: Intermittent Review of Systems Acute medical concerns: No Review of Systems Review of Systems denies Mental Status Exam Mental Status Exam Narrative: Pt is alert and oriented; behavior is cooperative, friendly and calm; patient is not in distress; dressed in casual attire with unkempt hair but adequate hygiene; mood is described as little better and affect congruent, more calm; eye contact appropriate; Speech is normal rate, volume and prosody and not pressured; no psychomotor agitation/retardation present; thought process is organized and goal directed; Thought content is on tx; no delusional thinking expressed; no SI; no HI. Denies hallucinations. Patients insight and judgment improving Diagnostics Vital Signs (24Hr): Vital Signs - 24 hr 04/24/24 20:00 04/25/24 08:06 Temperature 96.9 F 97.9 F Pulse Rate 88 85 Respiratory Rate 16 18 Blood Pressure 134/76 115/78 Pulse Oximetry 100 98 Oxygen Delivery Method Room Air Room Air BMI result Body Mass Index 24.7 Labs 04/05/24 15:38 04/05/24 15:38 Imaging Radiology Impressions: ITS Impressions Head CT 03/18/24 09:42 IMPRESSION: 1. No evidence of acute intracranial hemorrhage or edematous territorial infarction. 2. Mild to moderate underlying microangiopathy. 3. Arachnoid cyst in the right middle cranial fossa. Electronically signed by: Mino Arriaga DO 03/18/2024 06:26 PM EST RP Head CT 03/19/24 01:36 IMPRESSION: 1. Left frontal scalp soft tissue swelling. 2. No acute intracranial process seen. 3. Stable right middle cranial fossa arachnoid cyst. Electronically signed by: Andreas Olsen MD 03/19/2024 02:08 AM EST RP Head CT 04/05/24 16:20 IMPRESSION: 1. No acute intracranial hemorrhage or mass effect. 2. Stable right middle cranial fossa arachnoid cyst. Electronically signed by: Getachew Arana MD 04/05/2024 05:15 PM EST RP KUB X-Ray 04/16/24 13:57 IMPRESSION: Nonobstructive bowel gas pattern. Large colonic and rectal fecal material. Electronically signed by: Chencho Ugalde MD 04/16/2024 02:13 PM EST RP Medications Medications Current Medications Acetaminophen (Acetaminophen 325 Mg Tablet) 650 mg PO Q6H PRN PRN Reason: Headache/Pain Mild Scale (1-3) Last Admin: 04/18/24 00:27 Dose: 650 mg Al Hydroxide/Mg Hydroxide (Magnesium Hydrox/Alum Hydrox 30 Ml Oral.Susp) 30 ml PO Q6H PRN PRN Reason: Heartburn/Nausea Clozapine (Clozapine 100 Mg Tablet) 100 mg PO DAILY [facility] Last Admin: 04/25/24 08:12 Dose: 100 mg Clozapine (Clozapine 100 Mg Tablet) 100 mg PO DAILY@1230 [facility] Last Admin: 04/24/24 12:21 Dose: 100 mg Clozapine (Clozapine 100 Mg Tablet) 200 mg PO BEDTIME [facility] Last Admin: 04/24/24 20:03 Dose: 200 mg Famotidine (Famotidine 20 Mg Tablet) 20 mg PO DAILY [facility] Last Admin: 04/25/24 08:13 Dose: 20 mg Hydrocortisone (Hydrocortisone 2.5 % Rectal Cr 30 Gm Tube) 1 appl [place] DAILY [facility] Last Admin: 04/25/24 08:13 Dose: Not Given Hydroxyzine HCl (Hydroxyzine Hcl 25 Mg Tablet) 25 mg PO Q6H PRN PRN Reason: Anxiety Last Admin: 04/24/24 20:04 Dose: 25 mg Lamotrigine (Lamotrigine 25 Mg Tablet) 50 mg PO BID [facility] Last Admin: 04/25/24 08:13 Dose: 50 mg Levothyroxine Sodium (Levothyroxine Sodium 75 Mcg Tablet) 75 mcg PO DAILY@0600 [facility] Last Admin: 04/25/24 06:00 Dose: 75 mcg Magnesium Hydroxide (Milk Of Magnesia 30 Ml Oral.Susp) 30 ml PO BID PRN PRN Reason: Constipation Last Admin: 04/24/24 20:04 Dose: 30 ml Nicotine Polacrilex (Nicotine Polacrilex 2 Mg Gum) 2 mg BUCCAL Q2H PRN PRN Reason: Nicotine Cravings Polyethylene Glycol (Polyethylene Glycol 3350 17 Gm Powd.Pack) 17 gm PO DAILY PRN PRN Reason: Constipation Last Admin: 04/18/24 00:24 Dose: 17 gm Polyethylene Glycol (Polyethylene Glycol 3350 17 Gm Powd.Pack) 17 gm PO DAILY [facility] Last Admin: 04/25/24 08:13 Dose: Not Given Risperidone (Risperidone 3 Mg Tablet) 6 mg PO BID [facility] Last Admin: 04/25/24 08:12 Dose: 6 mg Senna (Sennosides 8.6 Mg Tablet) 8.6 mg PO DAILY [facility] Last Admin: 04/25/24 08:13 Dose: Not Given Trazodone HCl (Trazodone Hcl 50 Mg Tablet) 50 mg PO BEDTIME MRX1 PRN PRN Reason: Insomnia Last Admin: 04/24/24 20:04 Dose: 50 mg Allergies Allergies Allergy/AdvReac Type Severity Reaction Status Date / Time trifluoperazine Allergy Unknown Verified 03/11/24 14:16 [From Stelazine] Assessment & Plan Assessment & Plan (1) Pre-op evaluation: Status: Acute Code(s): Z01.818 - Encounter for other preprocedural examination (2) Schizophrenia: Status: Acute Code(s): F20.9 - Schizophrenia, unspecified (3) Diverticulosis: Status: Chronic Code(s): K57.90 - Diverticulosis of intestine, part unspecified, without perforation or abscess without bleeding Plan Patient is a 73-year-old female with a PMH significant for HTN, post op VTE 2 years ago, hypothyroidism, and mood disorder who was admitted to [facility] after eloping from [facility] and walking into traffic on purpose. Patient apparently believes a friend is writing a horrible story about and does not want to live after everyone reads the book as she believes everyone will hate her. Hospitalist consult for ECT risk stratification. ECT risk stratification Previously underwent ECT without complications in 1998 Currently no significant medical complaints or PMH EKG from 7 days prior at time of admission negative for ischemia RCRI 0 points, class I risk Will repeat EKG before completing risk stratification 04/15/24: Continue current regime and plan. Plan 1. Clozaril had been changed to Clozaril 100 mg p.o. b.i.d. and 200 mg p.o. q.h.s. that has helped her and avoid over-sedation. 2. Risperdal we will be kept on 6 mg p.o. b.i.d., as per daughter's report, whenever they tried to lower her psychosis worsened. 3. The patient is chronically psychotic and apparently at baseline she is always having auditory hallucinations she is used to that. 4. Information of healthcare proxy was done recently, his daughter reported that she needs ECT but so far she looks chronically psychotic and hypoactive. We will discuss the possibility of this treatment. 5. EKG ordered with hospitalist consult for ECT clearance. 04/25/2024: No changes. Reason for continued inpatient stay Substantial Risk for: inability to function, rapid decompensation and med/psych decompensation Time Spent With Patient Time: Total time managing care of this patient today ____ minutes.
[2024-04-25 20:00] VITALS: BP 149/77; PULSE 87; RESP 17; TEMP 36.7; O2SAT 93
[2024-04-25] MEDS: cloZAPine 100 MG TABLET 200 MG PO (20:34)
[2024-04-26] MEDS: Levothyroxine Sodium 75 MCG TABLET PO (06:10)
[2024-04-26 07:55] VITALS: BP 110/62; PULSE 90; RESP 18; TEMP 36.8; O2SAT 97
--- NOTE | 2024-04-26 08:27 | HO.PSYCHPN ---
Subjective Subjective Date of Service: 04/26/24 Reason For Visit: Psychosis Interim History: Met with patient and discussed with Nursing. Enjoying word search puzzle in room with room mate. Appetite and mood improved. No med concerns. Sleeping well. Feels safe on the unit. Denies SI. Medication Compliance: Yes Side effects from medications: No Attending Groups: Intermittent Review of Systems Acute medical concerns: No Review of Systems Review of Systems unremarkable Mental Status Exam Mental Status Exam Narrative: Pt is alert and oriented; behavior is cooperative, friendly and calm; patient is not in distress; dressed in casual attire doing word search puzzle with room mate. Mood is described as better and affect congruent, more calm; eye contact appropriate; Speech is normal rate, volume and prosody and not pressured; no psychomotor agitation/retardation present; thought process is organized and goal directed; Thought content is on tx; no delusional thinking expressed; no SI; no HI. Denies hallucinations. Patients insight and judgment improving Diagnostics Vital Signs (24Hr): Vital Signs - 24 hr 04/25/24 20:00 Temperature 98.1 F Pulse Rate 87 Respiratory Rate 17 Blood Pressure 149/77 H Pulse Oximetry 93 Oxygen Delivery Method Room Air BMI result Body Mass Index 24.7 Labs 04/05/24 15:38 04/05/24 15:38 Imaging Radiology Impressions: ITS Impressions Head CT 03/18/24 09:42 IMPRESSION: 1. No evidence of acute intracranial hemorrhage or edematous territorial infarction. 2. Mild to moderate underlying microangiopathy. 3. Arachnoid cyst in the right middle cranial fossa. Electronically signed by: Mino Arriaga DO 03/18/2024 06:26 PM EST RP Head CT 03/19/24 01:36 IMPRESSION: 1. Left frontal scalp soft tissue swelling. 2. No acute intracranial process seen. 3. Stable right middle cranial fossa arachnoid cyst. Electronically signed by: Andreas Olsen MD 03/19/2024 02:08 AM EST RP Head CT 04/05/24 16:20 IMPRESSION: 1. No acute intracranial hemorrhage or mass effect. 2. Stable right middle cranial fossa arachnoid cyst. Electronically signed by: Getachew Arana MD 04/05/2024 05:15 PM EST RP KUB X-Ray 12/26/24 13:57 IMPRESSION: Nonobstructive bowel gas pattern. Large colonic and rectal fecal material. Electronically signed by: Chencho Ugalde MD 04/16/2024 02:13 PM [facility] [place] Medications Medications Current Medications Acetaminophen (Acetaminophen 325 Mg Tablet) 650 mg PO Q6H PRN PRN Reason: Headache/Pain Mild Scale (1-3) Last Admin: 04/18/24 00:27 Dose: 650 mg Al Hydroxide/Mg Hydroxide (Magnesium Hydrox/Alum Hydrox 30 Ml Oral.Susp) 30 ml PO Q6H PRN PRN Reason: Heartburn/Nausea Clozapine (Clozapine 100 Mg Tablet) 100 mg PO DAILY [facility] Last Admin: 04/25/24 08:12 Dose: 100 mg Clozapine (Clozapine 100 Mg Tablet) 100 mg PO DAILY@1230 [facility] Last Admin: 04/25/24 12:25 Dose: 100 mg Clozapine (Clozapine 100 Mg Tablet) 200 mg PO BEDTIME [facility] Last Admin: 04/25/24 20:34 Dose: 200 mg Famotidine (Famotidine 20 Mg Tablet) 20 mg PO DAILY [facility] Last Admin: 04/25/24 08:13 Dose: 20 mg Hydrocortisone (Hydrocortisone 2.5 % Rectal Cr 30 Gm Tube) 1 appl [place] DAILY [facility] Last Admin: 04/25/24 08:13 Dose: Not Given Hydroxyzine HCl (Hydroxyzine Hcl 25 Mg Tablet) 25 mg PO Q6H PRN PRN Reason: Anxiety Last Admin: 04/24/24 20:04 Dose: 25 mg Lamotrigine (Lamotrigine 25 Mg Tablet) 50 mg PO BID [facility] Last Admin: 04/25/24 20:34 Dose: 50 mg Levothyroxine Sodium (Levothyroxine Sodium 75 Mcg Tablet) 75 mcg PO DAILY@0600 [facility] Last Admin: 04/26/24 06:10 Dose: 75 mcg Magnesium Hydroxide (Milk Of Magnesia 30 Ml Oral.Susp) 30 ml PO BID PRN PRN Reason: Constipation Last Admin: 04/24/24 20:04 Dose: 30 ml Nicotine Polacrilex (Nicotine Polacrilex 2 Mg Gum) 2 mg BUCCAL Q2H PRN PRN Reason: Nicotine Cravings Polyethylene Glycol (Polyethylene Glycol 3350 17 Gm Powd.Pack) 17 gm PO DAILY PRN PRN Reason: Constipation Last Admin: 04/18/24 00:24 Dose: 17 gm Polyethylene Glycol (Polyethylene Glycol 3350 17 Gm Powd.Pack) 17 gm PO DAILY [facility] Last Admin: 04/25/24 08:13 Dose: Not Given Risperidone (Risperidone 3 Mg Tablet) 6 mg PO BID [facility] Last Admin: 04/25/24 20:34 Dose: 6 mg Senna (Sennosides 8.6 Mg Tablet) 8.6 mg PO DAILY [facility] Last Admin: 04/25/24 08:13 Dose: Not Given Trazodone HCl (Trazodone Hcl 50 Mg Tablet) 50 mg PO BEDTIME MRX1 PRN PRN Reason: Insomnia Last Admin: 04/24/24 20:04 Dose: 50 mg Allergies Allergies Allergy/AdvReac Type Severity Reaction Status Date / Time trifluoperazine Allergy Unknown Verified 03/11/24 14:16 [From Stelazine] Assessment & Plan Assessment & Plan (1) Pre-op evaluation: Status: Acute Code(s): Z01.818 - Encounter for other preprocedural examination (2) Schizophrenia: Status: Acute Code(s): F20.9 - Schizophrenia, unspecified (3) Diverticulosis: Status: Chronic Code(s): K57.90 - Diverticulosis of intestine, part unspecified, without perforation or abscess without bleeding Plan Patient is a 73-year-old female with a PMH significant for HTN, post op VTE 2 years ago, hypothyroidism, and mood disorder who was admitted to [facility] [place] after eloping from [facility] and walking into traffic on purpose. Patient apparently believes a friend is writing a horrible story about and does not want to live after everyone reads the book as she believes everyone will hate her. Hospitalist consult for ECT risk stratification. ECT risk stratification Previously underwent ECT without complications in 1998 Currently no significant medical complaints or PMH EKG from 7 days prior at time of admission negative for ischemia RCRI 0 points, class I risk Will repeat EKG before completing risk stratification 04/15/24: Continue current regime and plan. Plan 1. Clozaril had been changed to Clozaril 100 mg p.o. b.i.d. and 200 mg p.o. q.h.s. that has helped her and avoid over-sedation. 2. Risperdal we will be kept on 6 mg p.o. b.i.d., as per daughter's report, whenever they tried to lower her psychosis worsened. 3. The patient is chronically psychotic and apparently at baseline she is always having auditory hallucinations she is used to that. 4. Information of healthcare proxy was done recently, his daughter reported that she needs ECT but so far she looks chronically psychotic and hypoactive. We will discuss the possibility of this treatment. 5. EKG ordered with hospitalist consult for ECT clearance. 04/26/2024: continue current plan Reason for continued inpatient stay Substantial Risk for: rapid decompensation Time Spent With Patient Time: Total time managing care of this patient today ____ minutes.
[2024-04-26] MEDS: Famotidine 20 MG TABLET PO (08:43)
[2024-04-26] MEDS: lamoTRIgine 25 MG TABLET 50 MG PO ×2 (08:43→20:19)
[2024-04-26] MEDS: cloZAPine 100 MG TABLET PO ×2 (08:43→13:12)
[2024-04-26] MEDS: risperiDONE 3 MG TABLET 6 MG PO ×2 (08:43→20:19)
[2024-04-26 20:00] VITALS: BP 131/80; PULSE 82; RESP 18; TEMP 36.7; O2SAT 98
[2024-04-26] MEDS: cloZAPine 100 MG TABLET 200 MG PO (20:18)
[2024-04-27] MEDS: Levothyroxine Sodium 75 MCG TABLET PO (05:54)
[2024-04-27 09:12] VITALS: BP 134/75; PULSE 86; RESP 16; TEMP 36.7; O2SAT 97
[2024-04-27] MEDS: Sennosides 8.6 MG TABLET PO (09:14)
[2024-04-27] MEDS: polyethylene glycoL 3350 17 GM POWD.PACK PO (09:14)
[2024-04-27] MEDS: lamoTRIgine 25 MG TABLET 50 MG PO ×2 (09:14→20:48)
[2024-04-27] MEDS: risperiDONE 3 MG TABLET 6 MG PO ×2 (09:14→20:48)
[2024-04-27] MEDS: Famotidine 20 MG TABLET PO (09:14)
[2024-04-27] MEDS: cloZAPine 100 MG TABLET PO ×2 (09:16→13:58)
--- NOTE | 2024-04-27 14:39 | HO.PSYCHPN ---
Subjective Subjective Date of Service: 04/27/24 Reason For Visit: Psychosis Subjective Notes: Conditional Voluntary Healthcare Proxy: Yes Interim History: The nursing staff reported the patient had been brighter cheerful she ate well slept 7 hours. She had been already cleared for ECT. Today I explained that her daughter wants her to have ECT for depression, the patient is reluctant to have that at this moment. The patient does not have catatonic symptoms that we saw 3 weeks ago. Mental Status Exam Mental Status Exam Patient Appearance: Appropriate Patient Orientation: Person and Situation Level of Consciousness: Awake and Appropriate Patient Behavior: Guarded and Passive Mood Description: Withdrawn Affect Description: Constricted Patient Cognition Impaired: Yes Ability to Follow Directions: Good Speech Pattern: Clear Hallucinations: None Delusions: Paranoid Ideation and Ideas of Reference Thought Process: Distracted and Slowed Thinking Thought Content: positive for [place] and positive for Poverty of Content Judgement: Fair Diagnostics Vital Signs (24Hr): Vital Signs - 24 hr 04/26/24 20:00 04/27/24 09:12 Temperature 98.1 F 98.1 F Pulse Rate 82 86 Respiratory Rate 18 16 Blood Pressure 131/80 134/75 Pulse Oximetry 98 97 Oxygen Delivery Method Room Air Room Air BMI result Body Mass Index 24.7 Labs 04/05/24 15:38 04/05/24 15:38 Imaging Radiology Impressions: ITS Impressions Head CT 03/18/24 09:42 IMPRESSION: 1. No evidence of acute intracranial hemorrhage or edematous territorial infarction. 2. Mild to moderate underlying microangiopathy. 3. Arachnoid cyst in the right middle cranial fossa. Electronically signed by: Mino Arriaga DO 03/18/2024 06:26 PM EST RP Head CT 03/19/24 01:36 IMPRESSION: 1. Left frontal scalp soft tissue swelling. 2. No acute intracranial process seen. 3. Stable right middle cranial fossa arachnoid cyst. Electronically signed by: Andreas Olsen MD 03/19/2024 02:08 AM EST RP Head CT 04/05/24 16:20 IMPRESSION: 1. No acute intracranial hemorrhage or mass effect. 2. Stable right middle cranial fossa arachnoid cyst. Electronically signed by: Getachew Arana MD 04/05/2024 05:15 PM EST RP KUB X-Ray 04/16/24 13:57 IMPRESSION: Nonobstructive bowel gas pattern. Large colonic and rectal fecal material. Electronically signed by: Chencho Ugalde MD 04/16/2024 02:13 PM [facility] [place] [place] Medications Medications Current Medications Acetaminophen (Acetaminophen 325 Mg Tablet) 650 mg PO Q6H PRN PRN Reason: Headache/Pain Mild Scale (1-3) Last Admin: 04/18/24 00:27 Dose: 650 mg Al Hydroxide/Mg Hydroxide (Magnesium Hydrox/Alum Hydrox 30 Ml Oral.Susp) 30 ml PO Q6H PRN PRN Reason: Heartburn/Nausea Clozapine (Clozapine 100 Mg Tablet) 100 mg PO DAILY [facility] Last Admin: 04/27/24 09:16 Dose: 100 mg Clozapine (Clozapine 100 Mg Tablet) 100 mg PO DAILY@1230 [facility] Last Admin: 04/27/24 13:58 Dose: 100 mg Clozapine (Clozapine 100 Mg Tablet) 200 mg PO BEDTIME [facility] Last Admin: 04/26/24 20:18 Dose: 200 mg Famotidine (Famotidine 20 Mg Tablet) 20 mg PO DAILY [facility] Last Admin: 04/27/24 09:14 Dose: 20 mg Hydrocortisone (Hydrocortisone 2.5 % Rectal Cr 30 Gm Tube) 1 appl [place] DAILY [facility] Last Admin: 04/27/24 13:58 Dose: Not Given Hydroxyzine HCl (Hydroxyzine Hcl 25 Mg Tablet) 25 mg PO Q6H PRN PRN Reason: Anxiety Last Admin: 04/24/24 20:04 Dose: 25 mg Lamotrigine (Lamotrigine 25 Mg Tablet) 50 mg PO BID [facility] Last Admin: 04/27/24 09:14 Dose: 50 mg Levothyroxine Sodium (Levothyroxine Sodium 75 Mcg Tablet) 75 mcg PO DAILY@0600 [facility] Last Admin: 04/27/24 05:54 Dose: 75 mcg Magnesium Hydroxide (Milk Of Magnesia 30 Ml Oral.Susp) 30 ml PO BID PRN PRN Reason: Constipation Last Admin: 04/24/24 20:04 Dose: 30 ml Nicotine Polacrilex (Nicotine Polacrilex 2 Mg Gum) 2 mg BUCCAL Q2H PRN PRN Reason: Nicotine Cravings Polyethylene Glycol (Polyethylene Glycol 3350 17 Gm Powd.Pack) 17 gm PO DAILY PRN PRN Reason: Constipation Last Admin: 04/18/24 00:24 Dose: 17 gm Polyethylene Glycol (Polyethylene Glycol 3350 17 Gm Powd.Pack) 17 gm PO DAILY [facility] Last Admin: 04/27/24 09:14 Dose: 17 gm Risperidone (Risperidone 3 Mg Tablet) 6 mg PO BID [facility] Last Admin: 04/27/24 09:14 Dose: 6 mg Senna (Sennosides 8.6 Mg Tablet) 8.6 mg PO DAILY [facility] Last Admin: 04/27/24 09:14 Dose: 8.6 mg Trazodone HCl (Trazodone Hcl 50 Mg Tablet) 50 mg PO BEDTIME MRX1 PRN PRN Reason: Insomnia Last Admin: 04/24/24 20:04 Dose: 50 mg Allergies Allergies Allergy/AdvReac Type Severity Reaction Status Date / Time trifluoperazine Allergy Unknown Verified 03/11/24 14:16 [From Stelazine] Assessment & Plan Assessment & Plan (1) Pre-op evaluation: Status: Acute Code(s): Z01.818 - Encounter for other preprocedural examination (2) Schizophrenia: Status: Acute Code(s): F20.9 - Schizophrenia, unspecified (3) Diverticulosis: Status: Chronic Code(s): K57.90 - Diverticulosis of intestine, part unspecified, without perforation or abscess without bleeding Plan Patient is a 73-year-old female with a PMH significant for HTN, post op VTE 2 years ago, hypothyroidism, and mood disorder who was admitted to [facility] after eloping from [facility] and walking into traffic on purpose. Patient apparently believes a friend is writing a horrible story about and does not want to live after everyone reads the book as she believes everyone will hate her. Hospitalist consult for ECT risk stratification. ECT risk stratification Previously underwent ECT without complications in 1998 Currently no significant medical complaints or PMH EKG from 7 days prior at time of admission negative for ischemia RCRI 0 points, class I risk Will repeat EKG before completing risk stratification 04/15/24: Continue current regime and plan. Plan 1. Clozaril had been changed to Clozaril 100 mg p.o. b.i.d. and 200 mg p.o. q.h.s. that has helped her and avoid over-sedation. 2. Risperdal we will be kept on 6 mg p.o. b.i.d., as per daughter's report, whenever they tried to lower her psychosis worsened. 3. The patient is chronically psychotic and apparently at baseline she is always having auditory hallucinations she is used to that. 4. Information of healthcare proxy was done recently, his daughter reported that she needs ECT but so far she looks chronically psychotic and hypoactive. We will discuss the possibility of this treatment. 5. EKG ordered with hospitalist consult for ECT clearance. 6. ECT was discussed with the patient and she is reluctant at this moment. Reason for continued inpatient stay Substantial Risk for: inability to function, rapid decompensation and med/psych decompensation Time Spent With Patient Time: Total time managing care of this patient today __20__ minutes.
[2024-04-27 20:00] VITALS: BP 131/60; PULSE 92; RESP 16; O2SAT 100
[2024-04-27] MEDS: cloZAPine 100 MG TABLET 200 MG PO (20:49)
[2024-04-27] MEDS: hydrOXYzine HCL 25 MG TABLET PO (20:49)
[2024-04-27] MEDS: traZODone HCL 50 MG TABLET PO (20:49)
[2024-04-28] MEDS: Levothyroxine Sodium 75 MCG TABLET PO (06:17)
[2024-04-28 08:16] VITALS: BP 139/75; PULSE 93; RESP 18; TEMP 35.9; O2SAT 98
[2024-04-28] MEDS: risperiDONE 3 MG TABLET 6 MG PO ×2 (09:10→20:28)
[2024-04-28] MEDS: Famotidine 20 MG TABLET PO (09:11)
[2024-04-28] MEDS: cloZAPine 100 MG TABLET PO ×2 (09:11→13:41)
[2024-04-28] MEDS: lamoTRIgine 25 MG TABLET 50 MG PO ×2 (09:11→20:28)
[2024-04-28] MEDS: Sennosides 8.6 MG TABLET PO (09:12)
[2024-04-28] MEDS: polyethylene glycoL 3350 17 GM POWD.PACK PO (09:12)
--- NOTE | 2024-04-28 12:55 | HO.PSYCHPN ---
Subjective Subjective Date of Service: 04/28/24 Reason For Visit: Psychosis Subjective Notes: Conditional Voluntary Interim History: The nursing staff reported no changes in her mental status cooperative pleasant. On interview the patient denies new symptoms. Today we will try to contact her daughter and said that she does not have criteria for ECT at this moment. Mental Status Exam Mental Status Exam Patient Appearance: Appropriate Patient Orientation: Person and Situation Level of Consciousness: Awake and Appropriate Patient Behavior: Guarded and Passive Mood Description: Withdrawn Affect Description: Constricted Patient Cognition Impaired: Yes Ability to Follow Directions: Good Speech Pattern: Clear Hallucinations: None Delusions: Paranoid Ideation and Ideas of Reference Thought Process: Distracted and Slowed Thinking Thought Content: positive for [place] and positive for Poverty of Content Judgement: Fair Diagnostics Vital Signs (24Hr): Vital Signs - 24 hr 04/27/24 20:00 04/28/24 08:16 Temperature 96.6 F L Pulse Rate 92 93 Respiratory Rate 16 18 Blood Pressure 131/60 139/75 Pulse Oximetry 100 98 Oxygen Delivery Method Room Air Room Air BMI result Body Mass Index 24.7 Labs 04/05/24 15:38 04/05/24 15:38 Imaging Radiology Impressions: ITS Impressions Head CT 03/18/24 09:42 IMPRESSION: 1. No evidence of acute intracranial hemorrhage or edematous territorial infarction. 2. Mild to moderate underlying microangiopathy. 3. Arachnoid cyst in the right middle cranial fossa. Electronically signed by: Mino Arriaga DO 03/18/2024 06:26 PM EST RP Head CT 03/19/24 01:36 IMPRESSION: 1. Left frontal scalp soft tissue swelling. 2. No acute intracranial process seen. 3. Stable right middle cranial fossa arachnoid cyst. Electronically signed by: Andreas Olsen MD 03/19/2024 02:08 AM EST RP Head CT 04/05/24 16:20 IMPRESSION: 1. No acute intracranial hemorrhage or mass effect. 2. Stable right middle cranial fossa arachnoid cyst. Electronically signed by: Getachew Arana MD 04/05/2024 05:15 PM EST RP KUB X-Ray 04/16/24 13:57 IMPRESSION: Nonobstructive bowel gas pattern. Large colonic and rectal fecal material. Electronically signed by: Chencho Ugalde MD 04/16/2024 02:13 PM [facility] [place] Medications Medications Current Medications Acetaminophen (Acetaminophen 325 Mg Tablet) 650 mg PO Q6H PRN PRN Reason: Headache/Pain Mild Scale (1-3) Last Admin: 04/18/24 00:27 Dose: 650 mg Al Hydroxide/Mg Hydroxide (Magnesium Hydrox/Alum Hydrox 30 Ml Oral.Susp) 30 ml PO Q6H PRN PRN Reason: Heartburn/Nausea Clozapine (Clozapine 100 Mg Tablet) 100 mg PO DAILY [facility] Last Admin: 04/28/24 09:11 Dose: 100 mg Clozapine (Clozapine 100 Mg Tablet) 100 mg PO DAILY@1230 [facility] Last Admin: 04/27/24 13:58 Dose: 100 mg Clozapine (Clozapine 100 Mg Tablet) 200 mg PO BEDTIME [facility] Last Admin: 04/27/24 20:49 Dose: 200 mg Famotidine (Famotidine 20 Mg Tablet) 20 mg PO DAILY [facility] Last Admin: 04/28/24 09:11 Dose: 20 mg Hydrocortisone (Hydrocortisone 2.5 % Rectal Cr 30 Gm Tube) 1 appl [place] DAILY [facility] Last Admin: 04/28/24 09:14 Dose: Not Given Hydroxyzine HCl (Hydroxyzine Hcl 25 Mg Tablet) 25 mg PO Q6H PRN PRN Reason: Anxiety Last Admin: 04/27/24 20:49 Dose: 25 mg Lamotrigine (Lamotrigine 25 Mg Tablet) 50 mg PO BID [facility] Last Admin: 04/28/24 09:11 Dose: 50 mg Levothyroxine Sodium (Levothyroxine Sodium 75 Mcg Tablet) 75 mcg PO DAILY@0600 [facility] Last Admin: 04/28/24 06:17 Dose: 75 mcg Magnesium Hydroxide (Milk Of Magnesia 30 Ml Oral.Susp) 30 ml PO BID PRN PRN Reason: Constipation Last Admin: 04/24/24 20:04 Dose: 30 ml Nicotine Polacrilex (Nicotine Polacrilex 2 Mg Gum) 2 mg BUCCAL Q2H PRN PRN Reason: Nicotine Cravings Polyethylene Glycol (Polyethylene Glycol 3350 17 Gm Powd.Pack) 17 gm PO DAILY PRN PRN Reason: Constipation Last Admin: 04/18/24 00:24 Dose: 17 gm Polyethylene Glycol (Polyethylene Glycol 3350 17 Gm Powd.Pack) 17 gm PO DAILY [facility] Last Admin: 04/28/24 09:12 Dose: 17 gm Risperidone (Risperidone 3 Mg Tablet) 6 mg PO BID [facility] Last Admin: 04/28/24 09:10 Dose: 6 mg Senna (Sennosides 8.6 Mg Tablet) 8.6 mg PO DAILY [facility] Last Admin: 04/28/24 09:12 Dose: 8.6 mg Trazodone HCl (Trazodone Hcl 50 Mg Tablet) 50 mg PO BEDTIME MRX1 PRN PRN Reason: Insomnia Last Admin: 04/27/24 20:49 Dose: 50 mg Allergies Allergies Allergy/AdvReac Type Severity Reaction Status Date / Time trifluoperazine Allergy Unknown Verified 03/11/24 14:16 [From Stelazine] Assessment & Plan Assessment & Plan (1) Pre-op evaluation: Status: Acute Code(s): Z01.818 - Encounter for other preprocedural examination (2) Schizophrenia: Status: Acute Code(s): F20.9 - Schizophrenia, unspecified (3) Diverticulosis: Status: Chronic Code(s): K57.90 - Diverticulosis of intestine, part unspecified, without perforation or abscess without bleeding Plan Patient is a 73-year-old female with a PMH significant for HTN, post op VTE 2 years ago, hypothyroidism, and mood disorder who was admitted to [facility] after eloping from [facility] and walking into traffic on purpose. Patient apparently believes a friend is writing a horrible story about and does not want to live after everyone reads the book as she believes everyone will hate her. Hospitalist consult for ECT risk stratification. ECT risk stratification Previously underwent ECT without complications in 1998 Currently no significant medical complaints or PMH EKG from 7 days prior at time of admission negative for ischemia RCRI 0 points, class I risk Will repeat EKG before completing risk stratification 04/15/24: Continue current regime and plan. Plan 1. Clozaril had been changed to Clozaril 100 mg p.o. b.i.d. and 200 mg p.o. q.h.s. that has helped her and avoid over-sedation. 2. Risperdal we will be kept on 6 mg p.o. b.i.d., as per daughter's report, whenever they tried to lower her psychosis worsened. 3. The patient is chronically psychotic and apparently at baseline she is always having auditory hallucinations she is used to that. 4. Information of healthcare proxy was done recently, his daughter reported that she needs ECT but so far she looks chronically psychotic and hypoactive. We will discuss the possibility of this treatment. 5. EKG ordered with hospitalist consult for ECT clearance. 6. ECT was discussed with the patient and she is reluctant at this moment. Reason for continued inpatient stay Substantial Risk for: inability to function, rapid decompensation and med/psych decompensation Time Spent With Patient Time: Total time managing care of this patient today __20__ minutes.
[2024-04-28 19:50] VITALS: BP 138/77; PULSE 85; RESP 16; TEMP 36.1; O2SAT 99
[2024-04-28] MEDS: cloZAPine 100 MG TABLET 200 MG PO (20:29)
[2024-04-29] MEDS: Levothyroxine Sodium 75 MCG TABLET PO (05:37)
[2024-04-29 08:47] VITALS: BP 129/74; PULSE 89; RESP 18; TEMP 36.4; O2SAT 99
[2024-04-29] MEDS: polyethylene glycoL 3350 17 GM POWD.PACK PO (08:48)
[2024-04-29] MEDS: risperiDONE 3 MG TABLET 6 MG PO ×2 (08:48→20:08)
[2024-04-29] MEDS: Sennosides 8.6 MG TABLET PO (08:49)
[2024-04-29] MEDS: cloZAPine 100 MG TABLET PO ×2 (08:49→12:10)
[2024-04-29] MEDS: lamoTRIgine 25 MG TABLET 50 MG PO ×2 (08:49→20:09)
[2024-04-29] MEDS: Famotidine 20 MG TABLET PO (08:50)
[2024-04-29 09:02] LABS: Neut%MD 76.2 %; WBCANC 7.8 X10*3/uL
--- NOTE | 2024-04-29 13:09 | HO.PSYCHPN ---
Subjective Subjective Date of Service: 04/29/24 Reason For Visit: Psychosis Subjective Notes: Conditional Voluntary Healthcare Proxy: Yes Interim History: The nursing staff reported the patient had been isolative, pleasant cooperative slept 7 hours fully compliant with treatment. On interview the patient had been reading a book pleasant cooperative no new symptoms mood looks brighter. Mental Status Exam Mental Status Exam Patient Appearance: Appropriate Patient Orientation: Person and Situation Level of Consciousness: Awake and Appropriate Patient Behavior: Guarded and Passive Mood Description: Withdrawn Affect Description: Constricted Patient Cognition Impaired: Yes Ability to Follow Directions: Good Speech Pattern: Clear Hallucinations: None Delusions: Paranoid Ideation and Ideas of Reference Thought Process: Distracted and Linear Thought Content: positive for [place] and positive for Circumstantial Judgement: Fair Diagnostics Vital Signs (24Hr): Vital Signs - 24 hr 04/28/24 19:50 04/29/24 08:47 Temperature 96.9 F 97.5 F Pulse Rate 85 89 Respiratory Rate 16 18 Blood Pressure 138/77 129/74 Pulse Oximetry 99 99 Oxygen Delivery Method Room Air Room Air BMI result Body Mass Index 24.7 Labs 04/05/24 15:38 04/05/24 15:38 Labs: Laboratory Results - last 48 hr 04/29/24 08:53 Absolute Neuts (auto) 6.0 Imaging Radiology Impressions: ITS Impressions Head CT 03/18/24 09:42 IMPRESSION: 1. No evidence of acute intracranial hemorrhage or edematous territorial infarction. 2. Mild to moderate underlying microangiopathy. 3. Arachnoid cyst in the right middle cranial fossa. Electronically signed by: Mino Arriaga DO 03/18/2024 06:26 PM EST RP Head CT 03/19/24 01:36 IMPRESSION: 1. Left frontal scalp soft tissue swelling. 2. No acute intracranial process seen. 3. Stable right middle cranial fossa arachnoid cyst. Electronically signed by: Andreas Olsen MD 03/19/2024 02:08 AM EST RP Head CT 04/05/24 16:20 IMPRESSION: 1. No acute intracranial hemorrhage or mass effect. 2. Stable right middle cranial fossa arachnoid cyst. Electronically signed by: Getachew Arana MD 04/05/2024 05:15 PM EST RP KUB X-Ray 04/16/24 13:57 IMPRESSION: Nonobstructive bowel gas pattern. Large colonic and rectal fecal material. Electronically signed by: Chencho Ugalde MD 04/16/2024 02:13 PM [facility] Medications Medications Current Medications Acetaminophen (Acetaminophen 325 Mg Tablet) 650 mg PO Q6H PRN PRN Reason: Headache/Pain Mild Scale (1-3) Last Admin: 04/18/24 00:27 Dose: 650 mg Al Hydroxide/Mg Hydroxide (Magnesium Hydrox/Alum Hydrox 30 Ml Oral.Susp) 30 ml PO Q6H PRN PRN Reason: Heartburn/Nausea Clozapine (Clozapine 100 Mg Tablet) 100 mg PO DAILY [facility] Last Admin: 04/29/24 08:49 Dose: 100 mg Clozapine (Clozapine 100 Mg Tablet) 100 mg PO DAILY@1230 [facility] Last Admin: 04/29/24 12:10 Dose: 100 mg Clozapine (Clozapine 100 Mg Tablet) 200 mg PO BEDTIME [facility] Last Admin: 04/28/24 20:29 Dose: 200 mg Famotidine (Famotidine 20 Mg Tablet) 20 mg PO DAILY [facility] Last Admin: 04/29/24 08:50 Dose: 20 mg Hydrocortisone (Hydrocortisone 2.5 % Rectal Cr 30 Gm Tube) 1 appl ME DAILY [facility] Last Admin: 04/29/24 08:50 Dose: Not Given Hydroxyzine HCl (Hydroxyzine Hcl 25 Mg Tablet) 25 mg PO Q6H PRN PRN Reason: Anxiety Last Admin: 04/27/24 20:49 Dose: 25 mg Lamotrigine (Lamotrigine 25 Mg Tablet) 50 mg PO BID [facility] Last Admin: 04/29/24 08:49 Dose: 50 mg Levothyroxine Sodium (Levothyroxine Sodium 75 Mcg Tablet) 75 mcg PO DAILY@0600 [facility] Last Admin: 04/29/24 05:37 Dose: 75 mcg Magnesium Hydroxide (Milk Of Magnesia 30 Ml Oral.Susp) 30 ml PO BID PRN PRN Reason: Constipation Last Admin: 04/24/24 20:04 Dose: 30 ml Nicotine Polacrilex (Nicotine Polacrilex 2 Mg Gum) 2 mg BUCCAL Q2H PRN PRN Reason: Nicotine Cravings Polyethylene Glycol (Polyethylene Glycol 3350 17 Gm Powd.Pack) 17 gm PO DAILY PRN PRN Reason: Constipation Last Admin: 04/18/24 00:24 Dose: 17 gm Polyethylene Glycol (Polyethylene Glycol 3350 17 Gm Powd.Pack) 17 gm PO DAILY [facility] Last Admin: 04/29/24 08:48 Dose: 17 gm Risperidone (Risperidone 3 Mg Tablet) 6 mg PO BID [facility] Last Admin: 04/29/24 08:48 Dose: 6 mg Senna (Sennosides 8.6 Mg Tablet) 8.6 mg PO DAILY [facility] Last Admin: 04/29/24 08:49 Dose: 8.6 mg Trazodone HCl (Trazodone Hcl 50 Mg Tablet) 50 mg PO BEDTIME MRX1 PRN PRN Reason: Insomnia Last Admin: 04/27/24 20:49 Dose: 50 mg Allergies Allergies Allergy/AdvReac Type Severity Reaction Status Date / Time trifluoperazine Allergy Unknown Verified 03/11/24 14:16 [From Stelazine] Assessment & Plan Assessment & Plan (1) Pre-op evaluation: Status: Acute Code(s): Z01.818 - Encounter for other preprocedural examination (2) Schizophrenia: Status: Acute Code(s): F20.9 - Schizophrenia, unspecified (3) Diverticulosis: Status: Chronic Code(s): K57.90 - Diverticulosis of intestine, part unspecified, without perforation or abscess without bleeding Plan Patient is a 73-year-old female with a PMH significant for HTN, post op VTE 2 years ago, hypothyroidism, and mood disorder who was admitted to [facility] after eloping from [facility] and walking into traffic on purpose. Patient apparently believes a friend is writing a horrible story about and does not want to live after everyone reads the book as she believes everyone will hate her. Hospitalist consult for ECT risk stratification. ECT risk stratification Previously underwent ECT without complications in 1998 Currently no significant medical complaints or PMH EKG from 7 days prior at time of admission negative for ischemia RCRI 0 points, class I risk Will repeat EKG before completing risk stratification 04/15/24: Continue current regime and plan. Plan 1. Clozaril had been changed to Clozaril 100 mg p.o. b.i.d. and 200 mg p.o. q.h.s. that has helped her and avoid over-sedation. 2. Risperdal we will be kept on 6 mg p.o. b.i.d., as per daughter's report, whenever they tried to lower her psychosis worsened. 3. The patient is chronically psychotic and apparently at baseline she is always having auditory hallucinations she is used to that. 4. Information of healthcare proxy was done recently, his daughter reported that she needs ECT but so far she looks chronically psychotic and hypoactive. We will discuss the possibility of this treatment. 5. EKG ordered with hospitalist consult for ECT clearance. 6. ECT was discussed with the patient and she is reluctant at this moment. Reason for continued inpatient stay Substantial Risk for: inability to function, rapid decompensation and med/psych decompensation Time Spent With Patient Time: Total time managing care of this patient today __20__ minutes.
[2024-04-29 20:00] VITALS: BP 148/78; PULSE 87; RESP 16; TEMP 36.4; O2SAT 98
[2024-04-29] MEDS: cloZAPine 100 MG TABLET 200 MG PO (20:09)
[2024-04-30] MEDS: Levothyroxine Sodium 75 MCG TABLET PO (05:08)
[2024-04-30 07:00] VITALS: BMI 24.6
[2024-04-30] MEDS: polyethylene glycoL 3350 17 GM POWD.PACK PO (08:06)
[2024-04-30] MEDS: lamoTRIgine 25 MG TABLET 50 MG PO ×2 (08:07→20:41)
[2024-04-30] MEDS: risperiDONE 3 MG TABLET 6 MG PO ×2 (08:08→20:41)
[2024-04-30] MEDS: Famotidine 20 MG TABLET PO (08:08)
[2024-04-30] MEDS: Sennosides 8.6 MG TABLET PO (08:08)
[2024-04-30] MEDS: cloZAPine 100 MG TABLET PO ×2 (08:08→15:06)
[2024-04-30 08:10] VITALS: BP 122/72; PULSE 82; RESP 16; TEMP 36.4; O2SAT 97
--- NOTE | 2024-04-30 14:20 | P.PNPSI_ITS ---
Subjective Subjective Date of Service: 04/30/24 Reason For Visit: Psychosis Subjective Notes: Conditional Voluntary Healthcare Proxy: Yes (Affirmed court) Interim History: The nursing staff reported the patient had been pleasant cooperative with a brighter affect fully compliant with treatment. On interview the patient denies new symptoms she feels better. Today we have a long conversation with her daughter who is the healthcare proxy and at this moment we are not going to do the ECT. We are going to start on discharge planning. Mental Status Exam Mental Status Exam Patient Appearance: Appropriate Patient Orientation: Person and Situation Level of Consciousness: Awake and Appropriate Patient Behavior: Guarded and Passive Mood Description: Calm Affect Description: Constricted Patient Cognition Impaired: Yes Ability to Follow Directions: Good Speech Pattern: Clear Hallucinations: None Delusions: Paranoid Ideation and Ideas of Reference Thought Process: Distracted and Slowed Thinking Thought Content: positive for [place] and positive for Poverty of Content Judgement: Poor Diagnostics Vital Signs (24Hr): Vital Signs - 24 hr 04/29/24 20:00 04/30/24 08:10 Temperature 97.5 F 97.5 F Pulse Rate 87 82 Respiratory Rate 16 16 Blood Pressure 148/78 H 122/72 Pulse Oximetry 98 97 Oxygen Delivery Method Room Air Room Air BMI result Body Mass Index 24.6 Labs 04/05/24 15:38 04/05/24 15:38 Labs: Laboratory Results - last 48 hr 04/29/24 08:53 Absolute Neuts (auto) 6.0 Imaging Radiology Impressions: ITS Impressions Head CT 03/18/24 09:42 IMPRESSION: 1. No evidence of acute intracranial hemorrhage or edematous territorial infarction. 2. Mild to moderate underlying microangiopathy. 3. Arachnoid cyst in the right middle cranial fossa. Electronically signed by: Mino Arriaga DO 03/18/2024 06:26 PM EST RP Head CT 03/19/24 01:36 IMPRESSION: 1. Left frontal scalp soft tissue swelling. 2. No acute intracranial process seen. 3. Stable right middle cranial fossa arachnoid cyst. Electronically signed by: Andreas Olsen MD 03/19/2024 02:08 AM EST RP Head CT 04/05/24 16:20 IMPRESSION: 1. No acute intracranial hemorrhage or mass effect. 2. Stable right middle cranial fossa arachnoid cyst. Electronically signed by: Getachew Arana MD 04/05/2024 05:15 PM EST RP KUB X-Ray 04/16/24 13:57 IMPRESSION: Nonobstructive bowel gas pattern. Large colonic and rectal fecal material. Electronically signed by: Chencho Ugalde MD 04/16/2024 02:13 PM EST RP Medications Medications Current Medications Acetaminophen (Acetaminophen 325 Mg Tablet) 650 mg PO Q6H PRN PRN Reason: Headache/Pain Mild Scale (1-3) Last Admin: 04/18/24 00:27 Dose: 650 mg Al Hydroxide/Mg Hydroxide (Magnesium Hydrox/Alum Hydrox 30 Ml Oral.Susp) 30 ml PO Q6H PRN PRN Reason: Heartburn/Nausea Clozapine (Clozapine 100 Mg Tablet) 100 mg PO DAILY [facility] Last Admin: 04/30/24 08:08 Dose: 100 mg Clozapine (Clozapine 100 Mg Tablet) 100 mg PO DAILY@1230 [facility] Last Admin: 04/29/24 12:10 Dose: 100 mg Clozapine (Clozapine 100 Mg Tablet) 200 mg PO BEDTIME [facility] Last Admin: 04/29/24 20:09 Dose: 200 mg Famotidine (Famotidine 20 Mg Tablet) 20 mg PO DAILY [facility] Last Admin: 04/30/24 08:08 Dose: 20 mg Hydrocortisone (Hydrocortisone 2.5 % Rectal Cr 30 Gm Tube) 1 appl NM DAILY [facility] Last Admin: 04/30/24 11:06 Dose: Not Given Hydroxyzine HCl (Hydroxyzine Hcl 25 Mg Tablet) 25 mg PO Q6H PRN PRN Reason: Anxiety Last Admin: 04/27/24 20:49 Dose: 25 mg Lamotrigine (Lamotrigine 25 Mg Tablet) 50 mg PO BID [facility] Last Admin: 04/30/24 08:07 Dose: 50 mg Levothyroxine Sodium (Levothyroxine Sodium 75 Mcg Tablet) 75 mcg PO DAILY@0600 [facility] Last Admin: 04/30/24 05:08 Dose: 75 mcg Magnesium Hydroxide (Milk Of Magnesia 30 Ml Oral.Susp) 30 ml PO BID PRN PRN Reason: Constipation Last Admin: 04/24/24 20:04 Dose: 30 ml Nicotine Polacrilex (Nicotine Polacrilex 2 Mg Gum) 2 mg BUCCAL Q2H PRN PRN Reason: Nicotine Cravings Polyethylene Glycol (Polyethylene Glycol 3350 17 Gm Powd.Pack) 17 gm PO DAILY PRN PRN Reason: Constipation Last Admin: 04/18/24 00:24 Dose: 17 gm Polyethylene Glycol (Polyethylene Glycol 3350 17 Gm Powd.Pack) 17 gm PO DAILY [facility] Last Admin: 04/30/24 08:06 Dose: 17 gm Risperidone (Risperidone 3 Mg Tablet) 6 mg PO BID [facility] Last Admin: 04/30/24 08:08 Dose: 6 mg Senna (Sennosides 8.6 Mg Tablet) 8.6 mg PO DAILY [facility] Last Admin: 04/30/24 08:08 Dose: 8.6 mg Trazodone HCl (Trazodone Hcl 50 Mg Tablet) 50 mg PO BEDTIME MRX1 PRN PRN Reason: Insomnia Last Admin: 04/27/24 20:49 Dose: 50 mg Allergies Allergies Allergy/AdvReac Type Severity Reaction Status Date / Time trifluoperazine Allergy Unknown Verified 03/11/24 14:16 [From Stelazine] Assessment & Plan Assessment & Plan (1) Pre-op evaluation: Status: Acute Code(s): Z01.818 - Encounter for other preprocedural examination (2) Schizophrenia: Status: Acute Code(s): F20.9 - Schizophrenia, unspecified (3) Diverticulosis: Status: Chronic Code(s): K57.90 - Diverticulosis of intestine, part unspecified, without perforation or abscess without bleeding Plan Patient is a 73-year-old female with a PMH significant for HTN, post op VTE 2 years ago, hypothyroidism, and mood disorder who was admitted to [facility] after eloping from [facility] and walking into traffic on purpose. Patient apparently believes a friend is writing a horrible story about and does not want to live after everyone reads the book as she believes everyone will hate her. Hospitalist consult for ECT risk stratification. ECT risk stratification Previously underwent ECT without complications in 1998 Currently no significant medical complaints or PMH EKG from 7 days prior at time of admission negative for ischemia RCRI 0 points, class I risk Will repeat EKG before completing risk stratification 04/15/24: Continue current regime and plan. Plan 1. Clozaril had been changed to Clozaril 100 mg p.o. b.i.d. and 200 mg p.o. q.h.s. that has helped her and avoid over-sedation. 2. Risperdal we will be kept on 6 mg p.o. b.i.d., as per daughter's report, whenever they tried to lower her psychosis worsened. 3. The patient is chronically psychotic and apparently at baseline she is always having auditory hallucinations she is used to that. 4. Information of healthcare proxy was done recently, his daughter reported that she needs ECT but so far she looks chronically psychotic and hypoactive. We will discuss the possibility of this treatment. 5. EKG ordered with hospitalist consult for ECT clearance. 6. ECT was discussed with the patient and she is reluctant at this moment. She has improved and at this moment she does not have criteria for ECT. Reason for continued inpatient stay Substantial Risk for: inability to function, rapid decompensation and med/psych decompensation Time Spent With Patient Time: Total time managing care of this patient today _20___ minutes.
[2024-04-30 20:00] VITALS: BP 129/82; PULSE 86; RESP 18; TEMP 36.3; O2SAT 99
[2024-04-30] MEDS: cloZAPine 100 MG TABLET 200 MG PO (20:41)
[2024-05-01] MEDS: Levothyroxine Sodium 75 MCG TABLET PO (06:05)
[2024-05-01 08:00] VITALS: BP 100/70; PULSE 88; RESP 18; TEMP 36.1; O2SAT 99
[2024-05-01] MEDS: lamoTRIgine 25 MG TABLET 50 MG PO ×2 (08:44→21:06)
[2024-05-01] MEDS: Sennosides 8.6 MG TABLET PO (08:44)
[2024-05-01] MEDS: cloZAPine 100 MG TABLET PO ×2 (08:44→13:19)
[2024-05-01] MEDS: Famotidine 20 MG TABLET PO (08:44)
[2024-05-01] MEDS: risperiDONE 3 MG TABLET 6 MG PO ×2 (08:44→21:06)
--- NOTE | 2024-05-01 15:27 | P.PNPSI_ITS ---
Subjective Subjective Date of Service: 05/01/24 Reason For Visit: Psychosis Subjective Notes: Conditional Voluntary Interim History: The nursing staff reported the patient had been compliant with medications and slept 8 hours. The director of social services reported that the ACL assess team will assess her next week. On interview the patient denies new symptoms brighter affect but still paranoid, probably leads her baseline. Mental Status Exam Mental Status Exam Patient Appearance: Appropriate Patient Orientation: Person and Situation Level of Consciousness: Awake Patient Behavior: Guarded and Passive Mood Description: Withdrawn Affect Description: Calm Patient Cognition Impaired: Yes Ability to Follow Directions: Good Speech Pattern: Clear Hallucinations: None Delusions: Paranoid Ideation and Ideas of Reference Thought Process: Distracted and Slowed Thinking Thought Content: positive for [place] and positive for Poverty of Content Judgement: Fair Diagnostics Vital Signs (24Hr): Vital Signs - 24 hr 04/30/24 20:00 05/01/24 08:00 Temperature 97.4 F 96.9 F Pulse Rate 86 88 Respiratory Rate 18 18 Blood Pressure 129/82 100/70 Pulse Oximetry 99 99 Oxygen Delivery Method Room Air Room Air BMI result Body Mass Index 24.6 Labs 04/05/24 15:38 04/05/24 15:38 Imaging Radiology Impressions: ITS Impressions Head CT 03/18/24 09:42 IMPRESSION: 1. No evidence of acute intracranial hemorrhage or edematous territorial infarction. 2. Mild to moderate underlying microangiopathy. 3. Arachnoid cyst in the right middle cranial fossa. Electronically signed by: Mino Arriaga DO 03/18/2024 06:26 PM EST RP Head CT 03/19/24 01:36 IMPRESSION: 1. Left frontal scalp soft tissue swelling. 2. No acute intracranial process seen. 3. Stable right middle cranial fossa arachnoid cyst. Electronically signed by: Andreas Olsen MD 03/19/2024 02:08 AM EST RP Head CT 04/05/24 16:20 IMPRESSION: 1. No acute intracranial hemorrhage or mass effect. 2. Stable right middle cranial fossa arachnoid cyst. Electronically signed by: Getachew Arana MD 04/05/2024 05:15 PM EST RP KUB X-Ray 04/16/24 13:57 IMPRESSION: Nonobstructive bowel gas pattern. Large colonic and rectal fecal material. Electronically signed by: Chencho Ugalde MD 04/16/2024 02:13 PM [facility] Medications Medications Current Medications Acetaminophen (Acetaminophen 325 Mg Tablet) 650 mg PO Q6H PRN PRN Reason: Headache/Pain Mild Scale (1-3) Last Admin: 04/18/24 00:27 Dose: 650 mg Al Hydroxide/Mg Hydroxide (Magnesium Hydrox/Alum Hydrox 30 Ml Oral.Susp) 30 ml PO Q6H PRN PRN Reason: Heartburn/Nausea Clozapine (Clozapine 100 Mg Tablet) 100 mg PO DAILY [facility] Last Admin: 05/01/24 08:44 Dose: 100 mg Clozapine (Clozapine 100 Mg Tablet) 100 mg PO DAILY@1230 [facility] Last Admin: 05/01/24 13:19 Dose: 100 mg Clozapine (Clozapine 100 Mg Tablet) 200 mg PO BEDTIME [facility] Last Admin: 04/30/24 20:41 Dose: 200 mg Famotidine (Famotidine 20 Mg Tablet) 20 mg PO DAILY [facility] Last Admin: 05/01/24 08:44 Dose: 20 mg Hydrocortisone (Hydrocortisone 2.5 % Rectal Cr 30 Gm Tube) 1 appl CO DAILY [facility] Last Admin: 05/01/24 09:00 Dose: Not Given Hydroxyzine HCl (Hydroxyzine Hcl 25 Mg Tablet) 25 mg PO Q6H PRN PRN Reason: Anxiety Last Admin: 04/27/24 20:49 Dose: 25 mg Lamotrigine (Lamotrigine 25 Mg Tablet) 50 mg PO BID [facility] Last Admin: 05/01/24 08:44 Dose: 50 mg Levothyroxine Sodium (Levothyroxine Sodium 75 Mcg Tablet) 75 mcg PO DAILY@0600 [facility] Last Admin: 05/01/24 06:05 Dose: 75 mcg Magnesium Hydroxide (Milk Of Magnesia 30 Ml Oral.Susp) 30 ml PO BID PRN PRN Reason: Constipation Last Admin: 04/24/24 20:04 Dose: 30 ml Nicotine Polacrilex (Nicotine Polacrilex 2 Mg Gum) 2 mg BUCCAL Q2H PRN PRN Reason: Nicotine Cravings Polyethylene Glycol (Polyethylene Glycol 3350 17 Gm Powd.Pack) 17 gm PO DAILY PRN PRN Reason: Constipation Last Admin: 04/18/24 00:24 Dose: 17 gm Polyethylene Glycol (Polyethylene Glycol 3350 17 Gm Powd.Pack) 17 gm PO DAILY [facility] Last Admin: 05/01/24 09:00 Dose: Not Given Risperidone (Risperidone 3 Mg Tablet) 6 mg PO BID [facility] Last Admin: 05/01/24 08:44 Dose: 6 mg Senna (Sennosides 8.6 Mg Tablet) 8.6 mg PO DAILY [facility] Last Admin: 05/01/24 08:44 Dose: 8.6 mg Trazodone HCl (Trazodone Hcl 50 Mg Tablet) 50 mg PO BEDTIME MRX1 PRN PRN Reason: Insomnia Last Admin: 04/27/24 20:49 Dose: 50 mg Allergies Allergies Allergy/AdvReac Type Severity Reaction Status Date / Time trifluoperazine Allergy Unknown Verified 03/11/24 14:16 [From Stelazine] Assessment & Plan Assessment & Plan (1) Pre-op evaluation: Status: Acute Code(s): Z01.818 - Encounter for other preprocedural examination (2) Schizophrenia: Status: Acute Code(s): F20.9 - Schizophrenia, unspecified (3) Diverticulosis: Status: Chronic Code(s): K57.90 - Diverticulosis of intestine, part unspecified, without perforation or abscess without bleeding Plan Patient is a 73-year-old female with a PMH significant for HTN, post op VTE 2 years ago, hypothyroidism, and mood disorder who was admitted to [facility] after eloping from [facility] and walking into traffic on purpose. Patient apparently believes a friend is writing a horrible story about and does not want to live after everyone reads the book as she believes everyone will hate her. Hospitalist consult for ECT risk stratification. ECT risk stratification Previously underwent ECT without complications in 1998 Currently no significant medical complaints or PMH EKG from 7 days prior at time of admission negative for ischemia RCRI 0 points, class I risk Will repeat EKG before completing risk stratification 04/15/24: Continue current regime and plan. Plan 1. Clozaril had been changed to Clozaril 100 mg p.o. b.i.d. and 200 mg p.o. q.h.s. that has helped her and avoid over-sedation. 2. Risperdal we will be kept on 6 mg p.o. b.i.d., as per daughter's report, whenever they tried to lower her psychosis worsened. 3. The patient is chronically psychotic and apparently at baseline she is always having auditory hallucinations she is used to that. 4. Information of healthcare proxy was done recently, his daughter reported that she needs ECT but so far she looks chronically psychotic and hypoactive. We will discuss the possibility of this treatment. 5. EKG ordered with hospitalist consult for ECT clearance. 6. ECT was discussed with the patient and she is reluctant at this moment. She has improved and at this moment she does not have criteria for ECT. Reason for continued inpatient stay Substantial Risk for: inability to function, rapid decompensation and med/psych decompensation Time Spent With Patient Time: Total time managing care of this patient today _20___ minutes.
[2024-05-01 20:00] VITALS: BP 126/78; PULSE 94; RESP 16; TEMP 36.3; O2SAT 99
[2024-05-01] MEDS: cloZAPine 100 MG TABLET 200 MG PO (21:06)
[2024-05-01] MEDS: hydrOXYzine HCL 25 MG TABLET PO (21:06)
[2024-05-01] MEDS: traZODone HCL 50 MG TABLET PO (21:07)
[2024-05-02] MEDS: Levothyroxine Sodium 75 MCG TABLET PO (06:17)
[2024-05-02 08:33] VITALS: BP 101/66; PULSE 89; RESP 16; TEMP 36.8; O2SAT 99
[2024-05-02] MEDS: Famotidine 20 MG TABLET PO (08:36)
[2024-05-02] MEDS: polyethylene glycoL 3350 17 GM POWD.PACK PO (08:36)
[2024-05-02] MEDS: risperiDONE 3 MG TABLET 6 MG PO ×2 (08:36→20:12)
[2024-05-02] MEDS: lamoTRIgine 25 MG TABLET 50 MG PO ×2 (08:36→20:11)
[2024-05-02] MEDS: Sennosides 8.6 MG TABLET PO (08:36)
[2024-05-02] MEDS: cloZAPine 100 MG TABLET PO ×2 (08:36→13:42)
--- NOTE | 2024-05-02 13:37 | P.PNPSI_ITS ---
Subjective Subjective Date of Service: 05/02/24 Reason For Visit: Psychosis Subjective Notes: Conditional Voluntary Interim History: Pt slept through the night. She is reading a book and appears engaging more with staff. She does keep to herself in the room. She denies any concerns. No SI/HI. Review of Systems Review of Systems unremarkable Yes all other systems are reviewed and are negative Constitutional: Denies chills, Denies fatigue, Denies fever(s) and Denies headache(s) Eyes: Denies change in vision Denies headache(s), Denies nasal congestion, Denies nasal discharge and Denies sore throat Cardiovascular: Denies chest pain, Denies rapid heart rate, Denies leg edema, Denies lightheadedness and Denies dyspnea Respiratory: Denies chest congestion, Denies cough, Denies dyspnea and Denies wheezing Gastrointestinal: Denies melena, Denies hematochezia, Denies coffee ground emesis, Reports constipation, Denies diarrhea, Denies nausea, Denies vomiting and Denies hematemesis Musculoskeletal: Denies back pain, Denies myalgias, Denies numbness and Denies tingling Skin/Breast: Denies rash Denies confusion, Denies headache(s), Denies lack of coordination, Denies focal weakness, Denies numbness, Denies seizure-like activity and Denies tingling Psychiatric: Reports as per HPI and Denies confusion Endocrine: Denies fatigue Hematologic/Lymphatic: Denies easy bleeding and Denies easy bruising Allergic/Immunologic: Denies wheezing Mental Status Exam Mental Status Exam Patient Appearance: Appropriate Patient Orientation: Person and Situation Level of Consciousness: Awake Patient Behavior: Guarded and Passive Behavior Comments: Patient calm and cooperative often in her room Mood Description: Withdrawn Affect Description: Calm Patient Cognition Impaired: Yes Ability to Follow Directions: Good Speech Pattern: Clear Memory Description: Correction Impaired Diagnostics Vital Signs (24Hr): Vital Signs - 24 hr 05/01/24 20:00 05/02/24 08:33 Temperature 97.4 F 98.3 F Pulse Rate 94 89 Respiratory Rate 16 16 Blood Pressure 126/78 101/66 Pulse Oximetry 99 99 Oxygen Delivery Method Room Air Room Air BMI result Body Mass Index 24.6 Labs 04/05/24 15:38 04/05/24 15:38 Imaging Radiology Impressions: ITS Impressions Head CT 03/18/24 09:42 IMPRESSION: 1. No evidence of acute intracranial hemorrhage or edematous territorial infarction. 2. Mild to moderate underlying microangiopathy. 3. Arachnoid cyst in the right middle cranial fossa. Electronically signed by: Mino Arriaga DO 03/18/2024 06:26 PM EST RP Head CT 03/19/24 01:36 IMPRESSION: 1. Left frontal scalp soft tissue swelling. 2. No acute intracranial process seen. 3. Stable right middle cranial fossa arachnoid cyst. Electronically signed by: Andreas Olsen MD 03/19/2024 02:08 AM EST RP Head CT 04/05/24 16:20 IMPRESSION: 1. No acute intracranial hemorrhage or mass effect. 2. Stable right middle cranial fossa arachnoid cyst. Electronically signed by: Getachew Arana MD 04/05/2024 05:15 PM EST RP KUB X-Ray 04/16/24 13:57 IMPRESSION: Nonobstructive bowel gas pattern. Large colonic and rectal fecal material. Electronically signed by: Chencho Ugalde MD 04/16/2024 02:13 PM EST RP Medications Medications Current Medications Acetaminophen (Acetaminophen 325 Mg Tablet) 650 mg PO Q6H PRN PRN Reason: Headache/Pain Mild Scale (1-3) Last Admin: 04/18/24 00:27 Dose: 650 mg Al Hydroxide/Mg Hydroxide (Magnesium Hydrox/Alum Hydrox 30 Ml Oral.Susp) 30 ml PO Q6H PRN PRN Reason: Heartburn/Nausea Clozapine (Clozapine 100 Mg Tablet) 100 mg PO DAILY [facility] Last Admin: 05/02/24 08:36 Dose: 100 mg Clozapine (Clozapine 100 Mg Tablet) 100 mg PO DAILY@1230 [facility] Last Admin: 05/01/24 13:19 Dose: 100 mg Clozapine (Clozapine 100 Mg Tablet) 200 mg PO BEDTIME [facility] Last Admin: 05/01/24 21:06 Dose: 200 mg Famotidine (Famotidine 20 Mg Tablet) 20 mg PO DAILY [facility] Last Admin: 05/02/24 08:36 Dose: 20 mg Hydrocortisone (Hydrocortisone 2.5 % Rectal Cr 30 Gm Tube) 1 appl OR DAILY [facility] Last Admin: 05/02/24 08:36 Dose: Not Given Hydroxyzine HCl (Hydroxyzine Hcl 25 Mg Tablet) 25 mg PO Q6H PRN PRN Reason: Anxiety Last Admin: 05/01/24 21:06 Dose: 25 mg Lamotrigine (Lamotrigine 25 Mg Tablet) 50 mg PO BID [facility] Last Admin: 05/02/24 08:36 Dose: 50 mg Levothyroxine Sodium (Levothyroxine Sodium 75 Mcg Tablet) 75 mcg PO DAILY@0600 [facility] Last Admin: 05/02/24 06:17 Dose: 75 mcg Magnesium Hydroxide (Milk Of Magnesia 30 Ml Oral.Susp) 30 ml PO BID PRN PRN Reason: Constipation Last Admin: 04/24/24 20:04 Dose: 30 ml Nicotine Polacrilex (Nicotine Polacrilex 2 Mg Gum) 2 mg BUCCAL Q2H PRN PRN Reason: Nicotine Cravings Polyethylene Glycol (Polyethylene Glycol 3350 17 Gm Powd.Pack) 17 gm PO DAILY PRN PRN Reason: Constipation Last Admin: 04/18/24 00:24 Dose: 17 gm Polyethylene Glycol (Polyethylene Glycol 3350 17 Gm Powd.Pack) 17 gm PO DAILY [facility] Last Admin: 05/02/24 08:36 Dose: 17 gm Risperidone (Risperidone 3 Mg Tablet) 6 mg PO BID [facility] Last Admin: 05/02/24 08:36 Dose: 6 mg Senna (Sennosides 8.6 Mg Tablet) 8.6 mg PO DAILY [facility] Last Admin: 05/02/24 08:36 Dose: 8.6 mg Trazodone HCl (Trazodone Hcl 50 Mg Tablet) 50 mg PO BEDTIME MRX1 PRN PRN Reason: Insomnia Last Admin: 05/01/24 21:07 Dose: 50 mg Allergies Allergies Allergy/AdvReac Type Severity Reaction Status Date / Time trifluoperazine Allergy Unknown Verified 03/11/24 14:16 [From Stelazine] Assessment & Plan Assessment & Plan (1) Schizophrenia: Status: Acute Code(s): F20.9 - Schizophrenia, unspecified (2) Diverticulosis: Status: Chronic Code(s): K57.90 - Diverticulosis of intestine, part unspecified, without perforation or abscess without bleeding Plan Patient is a 73-year-old female with a PMH significant for HTN, post op VTE 2 years ago, hypothyroidism, and mood disorder who was admitted to [facility] after eloping from [facility] and walking into traffic on purpose. Patient apparently believes a friend is writing a horrible story about and does not want to live after everyone reads the book as she believes everyone will hate her. Hospitalist consult for ECT risk stratification. ECT risk stratification Previously underwent ECT without complications in 1998 Currently no significant medical complaints or PMH EKG from 7 days prior at time of admission negative for ischemia RCRI 0 points, class I risk Will repeat EKG before completing risk stratification 04/15/24: Continue current regime and plan. 05/02 continue tx. Reason for continued inpatient stay Substantial Risk for: inability to function Time Spent With Patient Time: Total time managing care of this patient today ____ minutes.
[2024-05-02 20:00] VITALS: BP 122/74; PULSE 90; RESP 18; TEMP 36.4; O2SAT 96
[2024-05-02] MEDS: cloZAPine 100 MG TABLET 200 MG PO (20:09)
[2024-05-02] MEDS: Acetaminophen 325 MG TABLET 650 MG PO (20:10)
[2024-05-02] MEDS: hydrOXYzine HCL 25 MG TABLET PO (20:10)
[2024-05-02] MEDS: traZODone HCL 50 MG TABLET PO (20:12)
[2024-05-03] MEDS: Levothyroxine Sodium 75 MCG TABLET PO (06:35)
[2024-05-03 08:00] VITALS: BP 121/74; PULSE 80; RESP 18; TEMP 36.6; O2SAT 99
[2024-05-03] MEDS: Sennosides 8.6 MG TABLET PO (08:43)
[2024-05-03] MEDS: Famotidine 20 MG TABLET PO (08:43)
[2024-05-03] MEDS: lamoTRIgine 25 MG TABLET 50 MG PO ×2 (08:43→20:21)
[2024-05-03] MEDS: risperiDONE 3 MG TABLET 6 MG PO ×2 (08:43→20:21)
[2024-05-03] MEDS: cloZAPine 100 MG TABLET PO ×2 (08:43→12:20)
[2024-05-03] MEDS: polyethylene glycoL 3350 17 GM POWD.PACK PO (08:44)
[2024-05-03] MEDS: Acetaminophen 325 MG TABLET 650 MG PO (08:57)
--- NOTE | 2024-05-03 12:03 | P.PNPSI_ITS ---
Subjective Subjective Date of Service: 05/03/24 Reason For Visit: Psychosis Subjective Notes: Conditional Voluntary Interim History: Pt slept through the night. She is reading a book and appears engaging more with staff. She does keep to herself in the room. She denies any concerns. No SI/HI. Review of Systems Review of Systems unremarkable Yes all other systems are reviewed and are negative Constitutional: Denies chills, Denies fatigue, Denies fever(s) and Denies headache(s) Eyes: Denies change in vision Denies headache(s), Denies nasal congestion, Denies nasal discharge and Denies sore throat Cardiovascular: Denies chest pain, Denies rapid heart rate, Denies leg edema, Denies lightheadedness and Denies dyspnea Respiratory: Denies chest congestion, Denies cough, Denies dyspnea and Denies wheezing Gastrointestinal: Denies melena, Denies hematochezia, Denies coffee ground emesis, Reports constipation, Denies diarrhea, Denies nausea, Denies vomiting and Denies hematemesis Musculoskeletal: Denies back pain, Denies myalgias, Denies numbness and Denies tingling Skin/Breast: Denies rash Denies confusion, Denies headache(s), Denies lack of coordination, Denies focal weakness, Denies numbness, Denies seizure-like activity and Denies tingling Psychiatric: Reports as per HPI and Denies confusion Endocrine: Denies fatigue Hematologic/Lymphatic: Denies easy bleeding and Denies easy bruising Allergic/Immunologic: Denies wheezing Mental Status Exam Mental Status Exam Patient Appearance: Appropriate Patient Orientation: Person and Situation Level of Consciousness: Awake Patient Behavior: Guarded and Passive Behavior Comments: Patient calm and cooperative often in her room Mood Description: Withdrawn Affect Description: Calm Patient Cognition Impaired: Yes Ability to Follow Directions: Good Speech Pattern: Clear Memory Description: Fpc Impaired Diagnostics Vital Signs (24Hr): Vital Signs - 24 hr 05/02/24 20:00 05/03/24 08:00 Temperature 97.6 F 97.8 F Pulse Rate 90 80 Respiratory Rate 18 18 Blood Pressure 122/74 121/74 Pulse Oximetry 96 99 Oxygen Delivery Method Room Air Room Air BMI result Body Mass Index 24.6 Labs 04/05/24 15:38 04/05/24 15:38 Imaging Radiology Impressions: ITS Impressions Head CT 11/27/24 09:42 IMPRESSION: 1. No evidence of acute intracranial hemorrhage or edematous territorial infarction. 2. Mild to moderate underlying microangiopathy. 3. Arachnoid cyst in the right middle cranial fossa. Electronically signed by: Mino Arriaga DO 03/18/2024 06:26 PM EST RP Head CT 03/19/24 01:36 IMPRESSION: 1. Left frontal scalp soft tissue swelling. 2. No acute intracranial process seen. 3. Stable right middle cranial fossa arachnoid cyst. Electronically signed by: Andreas Olsen MD 03/19/2024 02:08 AM EST RP Head CT 04/05/24 16:20 IMPRESSION: 1. No acute intracranial hemorrhage or mass effect. 2. Stable right middle cranial fossa arachnoid cyst. Electronically signed by: Getachew Arana MD 04/05/2024 05:15 PM EST RP KUB X-Ray 04/16/24 13:57 IMPRESSION: Nonobstructive bowel gas pattern. Large colonic and rectal fecal material. Electronically signed by: Chencho Ugalde MD 04/16/2024 02:13 PM EST RP Medications Medications Current Medications Acetaminophen (Acetaminophen 325 Mg Tablet) 650 mg PO Q6H PRN PRN Reason: Headache/Pain Mild Scale (1-3) Last Admin: 05/03/24 08:57 Dose: 650 mg Al Hydroxide/Mg Hydroxide (Magnesium Hydrox/Alum Hydrox 30 Ml Oral.Susp) 30 ml PO Q6H PRN PRN Reason: Heartburn/Nausea Clozapine (Clozapine 100 Mg Tablet) 100 mg PO DAILY [facility] Last Admin: 05/03/24 08:43 Dose: 100 mg Clozapine (Clozapine 100 Mg Tablet) 100 mg PO DAILY@1230 [facility] Last Admin: 05/02/24 13:42 Dose: 100 mg Clozapine (Clozapine 100 Mg Tablet) 200 mg PO BEDTIME [facility] Last Admin: 05/02/24 20:09 Dose: 200 mg Famotidine (Famotidine 20 Mg Tablet) 20 mg PO DAILY [facility] Last Admin: 05/03/24 08:43 Dose: 20 mg Hydrocortisone (Hydrocortisone 2.5 % Rectal Cr 30 Gm Tube) 1 appl MA DAILY [facility] Last Admin: 05/03/24 08:50 Dose: Not Given Hydroxyzine HCl (Hydroxyzine Hcl 25 Mg Tablet) 25 mg PO Q6H PRN PRN Reason: Anxiety Last Admin: 05/02/24 20:10 Dose: 25 mg Lamotrigine (Lamotrigine 25 Mg Tablet) 50 mg PO BID [facility] Last Admin: 05/03/24 08:43 Dose: 50 mg Levothyroxine Sodium (Levothyroxine Sodium 75 Mcg Tablet) 75 mcg PO DAILY@0600 [facility] Last Admin: 05/03/24 06:35 Dose: 75 mcg Magnesium Hydroxide (Milk Of Magnesia 30 Ml Oral.Susp) 30 ml PO BID PRN PRN Reason: Constipation Last Admin: 04/24/24 20:04 Dose: 30 ml Nicotine Polacrilex (Nicotine Polacrilex 2 Mg Gum) 2 mg BUCCAL Q2H PRN PRN Reason: Nicotine Cravings Polyethylene Glycol (Polyethylene Glycol 3350 17 Gm Powd.Pack) 17 gm PO DAILY PRN PRN Reason: Constipation Last Admin: 04/18/24 00:24 Dose: 17 gm Polyethylene Glycol (Polyethylene Glycol 3350 17 Gm Powd.Pack) 17 gm PO DAILY [facility] Last Admin: 05/03/24 08:44 Dose: 17 gm Risperidone (Risperidone 3 Mg Tablet) 6 mg PO BID [facility] Last Admin: 05/03/24 08:43 Dose: 6 mg Senna (Sennosides 8.6 Mg Tablet) 8.6 mg PO DAILY [facility] Last Admin: 05/03/24 08:43 Dose: 8.6 mg Trazodone HCl (Trazodone Hcl 50 Mg Tablet) 50 mg PO BEDTIME MRX1 PRN PRN Reason: Insomnia Last Admin: 05/02/24 20:12 Dose: 50 mg Allergies Allergies Allergy/AdvReac Type Severity Reaction Status Date / Time trifluoperazine Allergy Unknown Verified 03/11/24 14:16 [From Stelazine] Assessment & Plan Assessment & Plan (1) Schizophrenia: Status: Acute Code(s): F20.9 - Schizophrenia, unspecified (2) Diverticulosis: Status: Chronic Code(s): K57.90 - Diverticulosis of intestine, part unspecified, without perforation or abscess without bleeding Plan Patient is a 73-year-old female with a PMH significant for HTN, post op VTE 2 years ago, hypothyroidism, and mood disorder who was admitted to [facility] after eloping from [facility] and walking into traffic on purpose. Patient apparently believes a friend is writing a horrible story about and does not want to live after everyone reads the book as she believes everyone will hate her. Hospitalist consult for ECT risk stratification. ECT risk stratification Previously underwent ECT without complications in 1998 Currently no significant medical complaints or PMH EKG from 7 days prior at time of admission negative for ischemia RCRI 0 points, class I risk Will repeat EKG before completing risk stratification 04/15/24: Continue current regime and plan. 05/02-05/03 continue tx. Reason for continued inpatient stay Substantial Risk for: inability to function Time Spent With Patient Time: Total time managing care of this patient today ____ minutes.
[2024-05-03] MEDS: cloZAPine 100 MG TABLET 200 MG PO (20:20)
[2024-05-03 21:03] VITALS: BP 137/78; PULSE 87; RESP 16; TEMP 36.1; O2SAT 99
[2024-05-04] MEDS: Levothyroxine Sodium 75 MCG TABLET PO (05:12)
[2024-05-04 07:56] VITALS: BP 122/70; PULSE 95; RESP 18; TEMP 36.6; O2SAT 95
[2024-05-04] MEDS: polyethylene glycoL 3350 17 GM POWD.PACK PO (08:45)
[2024-05-04] MEDS: lamoTRIgine 25 MG TABLET 50 MG PO ×2 (08:45→19:48)
[2024-05-04] MEDS: risperiDONE 3 MG TABLET 6 MG PO ×2 (08:45→19:48)
[2024-05-04] MEDS: cloZAPine 100 MG TABLET PO ×2 (08:45→12:29)
[2024-05-04] MEDS: Sennosides 8.6 MG TABLET PO (08:45)
[2024-05-04] MEDS: Famotidine 20 MG TABLET PO (08:45)
[2024-05-04] MEDS: Acetaminophen 325 MG TABLET 650 MG PO (08:48)
--- NOTE | 2024-05-04 11:49 | P.PNPSI_ITS ---
Subjective Subjective Date of Service: 05/04/24 Reason For Visit: Psychosis Subjective Notes: Conditional Voluntary Interim History: The nursing staff reported the patient had been isolative but compliant with treatment, she slept 8 hours. The outreach and education social worker reported that [facility] team will come soon to assess her. On interview the patient denies new symptoms, waiting for placement. Mental Status Exam Mental Status Exam Patient Appearance: Appropriate Patient Orientation: Person and Situation Level of Consciousness: Awake Patient Behavior: Guarded and Passive Mood Description: Calm Affect Description: Constricted Patient Cognition Impaired: Yes Ability to Follow Directions: Good Speech Pattern: Clear Hallucinations: None Delusions: Ideas of Reference Thought Process: Distracted and Slowed Thinking Thought Content: positive for [place] and positive for Poverty of Content Judgement: Fair Diagnostics Vital Signs (24Hr): Vital Signs - 24 hr 05/03/24 21:03 05/04/24 07:56 Temperature 96.9 F 97.9 F Pulse Rate 87 95 Respiratory Rate 16 18 Blood Pressure 137/78 122/70 Pulse Oximetry 99 95 Oxygen Delivery Method Room Air Room Air BMI result Body Mass Index 24.6 Labs 04/05/24 15:38 04/05/24 15:38 Imaging Radiology Impressions: ITS Impressions Head CT 03/18/24 09:42 IMPRESSION: 1. No evidence of acute intracranial hemorrhage or edematous territorial infarction. 2. Mild to moderate underlying microangiopathy. 3. Arachnoid cyst in the right middle cranial fossa. Electronically signed by: Mino Arriaga DO 03/18/2024 06:26 PM EST RP Head CT 03/19/24 01:36 IMPRESSION: 1. Left frontal scalp soft tissue swelling. 2. No acute intracranial process seen. 3. Stable right middle cranial fossa arachnoid cyst. Electronically signed by: Andreas Olsen MD 03/19/2024 02:08 AM EST RP Head CT 04/05/24 16:20 IMPRESSION: 1. No acute intracranial hemorrhage or mass effect. 2. Stable right middle cranial fossa arachnoid cyst. Electronically signed by: Getachew Arana MD 04/05/2024 05:15 PM EST RP KUB X-Ray 04/16/24 13:57 IMPRESSION: Nonobstructive bowel gas pattern. Large colonic and rectal fecal material. Electronically signed by: Chencho Ugalde MD 04/16/2024 02:13 PM [facility] Medications Medications Current Medications Acetaminophen (Acetaminophen 325 Mg Tablet) 650 mg PO Q6H PRN PRN Reason: Headache/Pain Mild Scale (1-3) Last Admin: 05/04/24 08:48 Dose: 650 mg Al Hydroxide/Mg Hydroxide (Magnesium Hydrox/Alum Hydrox 30 Ml Oral.Susp) 30 ml PO Q6H PRN PRN Reason: Heartburn/Nausea Clozapine (Clozapine 100 Mg Tablet) 100 mg PO DAILY [facility] Last Admin: 05/04/24 08:45 Dose: 100 mg Clozapine (Clozapine 100 Mg Tablet) 100 mg PO DAILY@1230 [facility] Last Admin: 05/03/24 12:20 Dose: 100 mg Clozapine (Clozapine 100 Mg Tablet) 200 mg PO BEDTIME [facility] Last Admin: 05/03/24 20:20 Dose: 200 mg Famotidine (Famotidine 20 Mg Tablet) 20 mg PO DAILY [facility] Last Admin: 05/04/24 08:45 Dose: 20 mg Hydrocortisone (Hydrocortisone 2.5 % Rectal Cr 30 Gm Tube) 1 appl RI DAILY [facility] Last Admin: 05/04/24 08:56 Dose: Not Given Hydroxyzine HCl (Hydroxyzine Hcl 25 Mg Tablet) 25 mg PO Q6H PRN PRN Reason: Anxiety Last Admin: 05/02/24 20:10 Dose: 25 mg Lamotrigine (Lamotrigine 25 Mg Tablet) 50 mg PO BID [facility] Last Admin: 05/04/24 08:45 Dose: 50 mg Levothyroxine Sodium (Levothyroxine Sodium 75 Mcg Tablet) 75 mcg PO DAILY@0600 [facility] Last Admin: 05/04/24 05:12 Dose: 75 mcg Magnesium Hydroxide (Milk Of Magnesia 30 Ml Oral.Susp) 30 ml PO BID PRN PRN Reason: Constipation Last Admin: 04/24/24 20:04 Dose: 30 ml Nicotine Polacrilex (Nicotine Polacrilex 2 Mg Gum) 2 mg BUCCAL Q2H PRN PRN Reason: Nicotine Cravings Polyethylene Glycol (Polyethylene Glycol 3350 17 Gm Powd.Pack) 17 gm PO DAILY PRN PRN Reason: Constipation Last Admin: 04/18/24 00:24 Dose: 17 gm Polyethylene Glycol (Polyethylene Glycol 3350 17 Gm Powd.Pack) 17 gm PO DAILY [facility] Last Admin: 05/04/24 08:45 Dose: 17 gm Risperidone (Risperidone 3 Mg Tablet) 6 mg PO BID [facility] Last Admin: 05/04/24 08:45 Dose: 6 mg Senna (Sennosides 8.6 Mg Tablet) 8.6 mg PO DAILY [facility] Last Admin: 05/04/24 08:45 Dose: 8.6 mg Trazodone HCl (Trazodone Hcl 50 Mg Tablet) 50 mg PO BEDTIME MRX1 PRN PRN Reason: Insomnia Last Admin: 05/02/24 20:12 Dose: 50 mg Allergies Allergies Allergy/AdvReac Type Severity Reaction Status Date / Time trifluoperazine Allergy Unknown Verified 03/11/24 14:16 [From Stelazine] Assessment & Plan Assessment & Plan (1) Schizophrenia: Status: Acute Code(s): F20.9 - Schizophrenia, unspecified (2) Diverticulosis: Status: Chronic Code(s): K57.90 - Diverticulosis of intestine, part unspecified, without perforation or abscess without bleeding Plan Patient is a 73-year-old female with a PMH significant for HTN, post op VTE 2 years ago, hypothyroidism, and mood disorder who was admitted to [facility] after eloping from [facility] and walking into traffic on purpose. Patient apparently believes a friend is writing a horrible story about and does not want to live after everyone reads the book as she believes everyone will hate her. Hospitalist consult for ECT risk stratification. ECT risk stratification Previously underwent ECT without complications in 1998 Currently no significant medical complaints or PMH EKG from 7 days prior at time of admission negative for ischemia RCRI 0 points, class I risk Will repeat EKG before completing risk stratification Plan 1. Continue Risperdal 6 mg p.o. b.i.d.. 2. Clozaril has been changed to 100 mg p.o. b.i.d. and 200 mg p.o. q.h.s. to avoid over-sedation. 3. So far her psychosis had become stable. 4. ECT was considered but at this point the patient is doing much better. 5. Referral for [facility] team. They will reassess her soon. 6. Waiting for placement Reason for continued inpatient stay Substantial Risk for: inability to function, rapid decompensation and med/psych decompensation Time Spent With Patient Time: Total time managing care of this patient today __20__ minutes.
[2024-05-04 19:47] VITALS: BP 141/87; PULSE 84; RESP 16; TEMP 36.4; O2SAT 99
[2024-05-04] MEDS: cloZAPine 100 MG TABLET 200 MG PO (19:48)
[2024-05-05] MEDS: Levothyroxine Sodium 75 MCG TABLET PO (05:01)
[2024-05-05 07:55] VITALS: BP 113/68; PULSE 79; RESP 18; TEMP 36.6; O2SAT 98
[2024-05-05] MEDS: lamoTRIgine 25 MG TABLET 50 MG PO ×2 (08:04→19:59)
[2024-05-05] MEDS: Famotidine 20 MG TABLET PO (08:04)
[2024-05-05] MEDS: cloZAPine 100 MG TABLET PO ×2 (08:04→11:46)
[2024-05-05] MEDS: risperiDONE 3 MG TABLET 6 MG PO ×2 (08:04→20:00)
[2024-05-05] MEDS: Sennosides 8.6 MG TABLET PO (08:04)
[2024-05-05] MEDS: polyethylene glycoL 3350 17 GM POWD.PACK PO (08:05)
[2024-05-05] MEDS: Acetaminophen 325 MG TABLET 650 MG PO (11:49)
--- NOTE | 2024-05-05 13:55 | P.PNPSI_ITS ---
Subjective Subjective Date of Service: 05/05/24 Reason For Visit: Psychosis Subjective Notes: Conditional Voluntary Interim History: The nursing staff reported the patient had been compliant with treatment, no changes in her mental status. She slept 8 hours, seclusive but redirectable. The ACL assessed team assessed her and apparently she had been chronically psychotic stating that there is the satanic operation. No changes in her mental status. Mental Status Exam Mental Status Exam Patient Appearance: Appropriate Patient Orientation: Person and Situation Level of Consciousness: Awake Patient Behavior: Guarded and Passive Mood Description: Withdrawn Affect Description: Constricted Patient Cognition Impaired: Yes Ability to Follow Directions: Good Speech Pattern: Clear Hallucinations: None Delusions: Paranoid Ideation and Ideas of Reference Thought Process: Distracted and Slowed Thinking Thought Content: positive for [place] and positive for [place] of Content Judgement: Fair Diagnostics Vital Signs (24Hr): Vital Signs - 24 hr 05/04/24 19:47 05/05/24 07:55 Temperature 97.6 F 97.9 F Pulse Rate 84 79 Respiratory Rate 16 18 Blood Pressure 141/87 H 113/68 Pulse Oximetry 99 98 Oxygen Delivery Method Room Air Room Air BMI result Body Mass Index 24.6 Labs 04/05/24 15:38 04/05/24 15:38 Imaging Radiology Impressions: ITS Impressions Head CT 03/18/24 09:42 IMPRESSION: 1. No evidence of acute intracranial hemorrhage or edematous territorial infarction. 2. Mild to moderate underlying microangiopathy. 3. Arachnoid cyst in the right middle cranial fossa. Electronically signed by: Mino Arriaga DO 03/18/2024 06:26 PM EST RP Head CT 03/19/24 01:36 IMPRESSION: 1. Left frontal scalp soft tissue swelling. 2. No acute intracranial process seen. 3. Stable right middle cranial fossa arachnoid cyst. Electronically signed by: Andreas Olsen MD 03/19/2024 02:08 AM EST RP Head CT 04/05/24 16:20 IMPRESSION: 1. No acute intracranial hemorrhage or mass effect. 2. Stable right middle cranial fossa arachnoid cyst. Electronically signed by: Getachew Arana MD 04/05/2024 05:15 PM EST RP KUB X-Ray 04/16/24 13:57 IMPRESSION: Nonobstructive bowel gas pattern. Large colonic and rectal fecal material. Electronically signed by: Chencho Ugalde MD 04/16/2024 02:13 PM [facility] Medications Medications Current Medications Acetaminophen (Acetaminophen 325 Mg Tablet) 650 mg PO Q6H PRN PRN Reason: Headache/Pain Mild Scale (1-3) Last Admin: 05/05/24 11:49 Dose: 650 mg Al Hydroxide/Mg Hydroxide (Magnesium Hydrox/Alum Hydrox 30 Ml Oral.Susp) 30 ml PO Q6H PRN PRN Reason: Heartburn/Nausea Clozapine (Clozapine 100 Mg Tablet) 100 mg PO DAILY [facility] Last Admin: 05/05/24 08:04 Dose: 100 mg Clozapine (Clozapine 100 Mg Tablet) 100 mg PO DAILY@1230 [facility] Last Admin: 05/05/24 11:46 Dose: 100 mg Clozapine (Clozapine 100 Mg Tablet) 200 mg PO BEDTIME [facility] Last Admin: 05/04/24 19:48 Dose: 200 mg Famotidine (Famotidine 20 Mg Tablet) 20 mg PO DAILY [facility] Last Admin: 05/05/24 08:04 Dose: 20 mg Hydrocortisone (Hydrocortisone 2.5 % Rectal Cr 30 Gm Tube) 1 appl [place] DAILY [facility] Last Admin: 05/05/24 08:15 Dose: Not Given Hydroxyzine HCl (Hydroxyzine Hcl 25 Mg Tablet) 25 mg PO Q6H PRN PRN Reason: Anxiety Last Admin: 05/02/24 20:10 Dose: 25 mg Lamotrigine (Lamotrigine 25 Mg Tablet) 50 mg PO BID [facility] Last Admin: 05/05/24 08:04 Dose: 50 mg Levothyroxine Sodium (Levothyroxine Sodium 75 Mcg Tablet) 75 mcg PO DAILY@0600 [facility] Last Admin: 05/05/24 05:01 Dose: 75 mcg Magnesium Hydroxide (Milk Of Magnesia 30 Ml Oral.Susp) 30 ml PO BID PRN PRN Reason: Constipation Last Admin: 04/24/24 20:04 Dose: 30 ml Nicotine Polacrilex (Nicotine Polacrilex 2 Mg Gum) 2 mg BUCCAL Q2H PRN PRN Reason: Nicotine Cravings Polyethylene Glycol (Polyethylene Glycol 3350 17 Gm Powd.Pack) 17 gm PO DAILY PRN PRN Reason: Constipation Last Admin: 04/18/24 00:24 Dose: 17 gm Polyethylene Glycol (Polyethylene Glycol 3350 17 Gm Powd.Pack) 17 gm PO DAILY [facility] Last Admin: 05/05/24 08:05 Dose: 17 gm Risperidone (Risperidone 3 Mg Tablet) 6 mg PO BID [facility] Last Admin: 05/05/24 08:04 Dose: 6 mg Senna (Sennosides 8.6 Mg Tablet) 8.6 mg PO DAILY [facility] Last Admin: 05/05/24 08:04 Dose: 8.6 mg Trazodone HCl (Trazodone Hcl 50 Mg Tablet) 50 mg PO BEDTIME MRX1 PRN PRN Reason: Insomnia Last Admin: 05/02/24 20:12 Dose: 50 mg Allergies Allergies Allergy/AdvReac Type Severity Reaction Status Date / Time trifluoperazine Allergy Unknown Verified 03/11/24 14:16 [From Stelazine] Assessment & Plan Assessment & Plan (1) Schizophrenia: Status: Acute Code(s): F20.9 - Schizophrenia, unspecified (2) Diverticulosis: Status: Chronic Code(s): K57.90 - Diverticulosis of intestine, part unspecified, without perforation or abscess without bleeding Plan Patient is a 73-year-old female with a PMH significant for HTN, post op VTE 2 years ago, hypothyroidism, and mood disorder who was admitted to [facility] after eloping from [facility] and walking into traffic on purpose. Patient apparently believes a friend is writing a horrible story about and does not want to live after everyone reads the book as she believes everyone will hate her. Hospitalist consult for ECT risk stratification. ECT risk stratification Previously underwent ECT without complications in 1998 Currently no significant medical complaints or PMH EKG from 7 days prior at time of admission negative for ischemia RCRI 0 points, class I risk Will repeat EKG before completing risk stratification Plan 1. Continue Risperdal 6 mg p.o. b.i.d.. 2. Clozaril has been changed to 100 mg p.o. b.i.d. and 200 mg p.o. q.h.s. to avoid over-sedation. 3. So far her psychosis had become stable. 4. ECT was considered but at this point the patient is doing much better. 5. Referral for ACSS team. They will reassess her soon. 6. Waiting for placement Reason for continued inpatient stay Substantial Risk for: inability to function, rapid decompensation and med/psych decompensation Time Spent With Patient Time: Total time managing care of this patient today __20__ minutes.
[2024-05-05 19:56] VITALS: BP 123/82; PULSE 87; RESP 16; TEMP 36.6; O2SAT 97
[2024-05-05] MEDS: cloZAPine 100 MG TABLET 200 MG PO (20:00)
[2024-05-06] MEDS: Levothyroxine Sodium 75 MCG TABLET PO (05:11)
[2024-05-06 08:00] VITALS: BP 111/59; PULSE 92; RESP 16; TEMP 36.4; O2SAT 98
[2024-05-06] MEDS: lamoTRIgine 25 MG TABLET 50 MG PO ×2 (08:38→20:08)
[2024-05-06] MEDS: Sennosides 8.6 MG TABLET PO (08:38)
[2024-05-06] MEDS: Famotidine 20 MG TABLET PO (08:39)
[2024-05-06] MEDS: polyethylene glycoL 3350 17 GM POWD.PACK PO (08:39)
[2024-05-06] MEDS: cloZAPine 100 MG TABLET PO ×2 (08:39→12:08)
[2024-05-06] MEDS: risperiDONE 3 MG TABLET 6 MG PO ×2 (08:39→20:08)
[2024-05-06 08:44] LABS: Neut%MD 63.6 %; Neutrophils Absolute Auto 3.7 x10*3/uL (2.0-8.3); WBCANC 5.8 X10*3/uL
--- NOTE | 2024-05-06 11:57 | HO.PSYCHPN ---
Subjective Subjective Date of Service: 05/06/24 Reason For Visit: Psychosis Subjective Notes: Conditional Voluntary Healthcare Proxy: Yes Interim History: The nursing staff reported the patient had been compliant with treatment. Yesterday the JENNIFER assessed team saw her and reported that she is not at her baseline that she chronically have hallucinations and delusions but her behavior had been pleasant and cooperative. On interview the patient admitted having elusive thinking but she does not act on that. We are going to keep on the same medications. Mental Status Exam Mental Status Exam Patient Appearance: Appropriate Patient Orientation: Person and Situation Level of Consciousness: Awake and Appropriate Patient Behavior: Guarded and Passive Mood Description: Calm Affect Description: Constricted Patient Cognition Impaired: Yes Ability to Follow Directions: Good Speech Pattern: Clear Hallucinations: Auditory Delusions: Paranoid Ideation and Ideas of Reference Thought Process: Distracted and Slowed Thinking Thought Content: positive for [place] and positive for Circumstantial Judgement: Fair Diagnostics Vital Signs (24Hr): Vital Signs - 24 hr 05/05/24 19:56 05/06/24 08:00 Temperature 97.8 F 97.5 F Pulse Rate 87 92 Respiratory Rate 16 16 Blood Pressure 123/82 111/59 L Pulse Oximetry 97 98 Oxygen Delivery Method Room Air Room Air BMI result Body Mass Index 24.6 Labs 04/05/24 15:38 04/05/24 15:38 Labs: Laboratory Results - last 48 hr 05/06/24 08:22 Absolute Neuts (auto) 3.7 Imaging Radiology Impressions: ITS Impressions Head CT 03/18/24 09:42 IMPRESSION: 1. No evidence of acute intracranial hemorrhage or edematous territorial infarction. 2. Mild to moderate underlying microangiopathy. 3. Arachnoid cyst in the right middle cranial fossa. Electronically signed by: Mino Arriaga DO 03/18/2024 06:26 PM EST RP Head CT 03/19/24 01:36 IMPRESSION: 1. Left frontal scalp soft tissue swelling. 2. No acute intracranial process seen. 3. Stable right middle cranial fossa arachnoid cyst. Electronically signed by: Andreas Olsen MD 03/19/2024 02:08 AM EST RP Head CT 04/05/24 16:20 IMPRESSION: 1. No acute intracranial hemorrhage or mass effect. 2. Stable right middle cranial fossa arachnoid cyst. Electronically signed by: Getachew Arana MD 04/05/2024 05:15 PM EST RP KUB X-Ray 04/16/24 13:57 IMPRESSION: Nonobstructive bowel gas pattern. Large colonic and rectal fecal material. Electronically signed by: Chencho Ugalde MD 04/16/2024 02:13 PM EST RP Medications Medications Current Medications Acetaminophen (Acetaminophen 325 Mg Tablet) 650 mg PO Q6H PRN PRN Reason: Headache/Pain Mild Scale (1-3) Last Admin: 05/05/24 11:49 Dose: 650 mg Al Hydroxide/Mg Hydroxide (Magnesium Hydrox/Alum Hydrox 30 Ml Oral.Susp) 30 ml PO Q6H PRN PRN Reason: Heartburn/Nausea Clozapine (Clozapine 100 Mg Tablet) 100 mg PO DAILY [facility] BEDS AT [facility] Last Admin: 05/06/24 08:39 Dose: 100 mg Clozapine (Clozapine 100 Mg Tablet) 100 mg PO DAILY@1230 [facility] 234 BEDS AT [facility] Last Admin: 05/05/24 11:46 Dose: 100 mg Clozapine (Clozapine 100 Mg Tablet) 200 mg PO BEDTIME [facility]S [facility]CLUDE 234 BEDS AT THE [facility] Last Admin: 05/05/24 20:00 Dose: 200 mg Famotidine (Famotidine 20 Mg Tablet) 20 mg PO DAILY [facility] 234 BEDS AT [facility] Last Admin: 05/06/24 08:39 Dose: 20 mg Hydrocortisone (Hydrocortisone 2.5 % Rectal Cr 30 Gm Tube) 1 appl [place] DAILY [facility]S [facility]CLUDE 234 BEDS AT [facility] Last Admin: 05/06/24 08:45 Dose: Not Given Hydroxyzine HCl (Hydroxyzine Hcl 25 Mg Tablet) 25 mg PO Q6H PRN PRN Reason: Anxiety Last Admin: 05/02/24 20:10 Dose: 25 mg Lamotrigine (Lamotrigine 25 Mg Tablet) 50 mg PO BID [facility] 234 BEDS AT [facility] Last Admin: 05/06/24 08:38 Dose: 50 mg Levothyroxine Sodium (Levothyroxine Sodium 75 Mcg Tablet) 75 mcg PO DAILY@0600 [facility] 234 BEDS AT [facility] Last Admin: 05/06/24 05:11 Dose: 75 mcg Magnesium Hydroxide (Milk Of Magnesia 30 Ml Oral.Susp) 30 ml PO BID PRN PRN Reason: Constipation Last Admin: 04/24/24 20:04 Dose: 30 ml Nicotine Polacrilex (Nicotine Polacrilex 2 Mg Gum) 2 mg BUCCAL Q2H PRN PRN Reason: Nicotine Cravings Polyethylene Glycol (Polyethylene Glycol 3350 17 Gm Powd.Pack) 17 gm PO DAILY PRN PRN Reason: Constipation Last Admin: 04/18/24 00:24 Dose: 17 gm Polyethylene Glycol (Polyethylene Glycol 3350 17 Gm Powd.Pack) 17 gm PO DAILY [facility] 234 BEDS AT [facility] Last Admin: 05/06/24 08:39 Dose: 17 gm Risperidone (Risperidone 3 Mg Tablet) 6 mg PO BID [facility] 234 BEDS AT [facility] Last Admin: 05/06/24 08:39 Dose: 6 mg Senna (Sennosides 8.6 Mg Tablet) 8.6 mg PO DAILY [facility] 234 BEDS AT [facility] Last Admin: 05/06/24 08:38 Dose: 8.6 mg Trazodone HCl (Trazodone Hcl 50 Mg Tablet) 50 mg PO BEDTIME MRX1 PRN PRN Reason: Insomnia Last Admin: 05/02/24 20:12 Dose: 50 mg Allergies Allergies Allergy/AdvReac Type Severity Reaction Status Date / Time trifluoperazine Allergy Unknown Verified 03/11/24 14:16 [From Stelazine] Assessment & Plan Assessment & Plan (1) Schizophrenia: Status: Acute Code(s): F20.9 - Schizophrenia, unspecified (2) Diverticulosis: Status: Chronic Code(s): K57.90 - Diverticulosis of intestine, part unspecified, without perforation or abscess without bleeding Plan Patient is a 73-year-old female with a PMH significant for HTN, post op VTE 2 years ago, hypothyroidism, and mood disorder who was admitted to [facility] after eloping from [facility] and walking into traffic on purpose. Patient apparently believes a friend is writing a horrible story about and does not want to live after everyone reads the book as she believes everyone will hate her. Hospitalist consult for ECT risk stratification. ECT risk stratification Previously underwent ECT without complications in 1998 Currently no significant medical complaints or PMH EKG from 7 days prior at time of admission negative for ischemia RCRI 0 points, class I risk Will repeat EKG before completing risk stratification Plan 1. Continue Risperdal 6 mg p.o. b.i.d.. 2. Clozaril has been changed to 100 mg p.o. b.i.d. and 200 mg p.o. q.h.s. to avoid over-sedation. 3. So far her psychosis had become stable. 4. ECT was considered but at this point the patient is doing much better. 5. Referral for ACSS team. They assessed her on May 05 and stated that she is not at baseline but it seems that this is now her new baseline. So far she had not been assaultive for grossly disorganized after the medication changes and increase of Clozaril. 6. Waiting for placement Reason for continued inpatient stay Substantial Risk for: inability to function, rapid decompensation and med/psych decompensation Time Spent With Patient Time: Total time managing care of this patient today __20__ minutes.
[2024-05-06] MEDS: Acetaminophen 325 MG TABLET 650 MG PO (12:10)
[2024-05-06 20:00] VITALS: BP 132/84; PULSE 82; RESP 16; TEMP 36; O2SAT 100
[2024-05-06] MEDS: cloZAPine 100 MG TABLET 200 MG PO (20:08)
[2024-05-06] MEDS: hydrOXYzine HCL 25 MG TABLET PO (20:09)
[2024-05-06] MEDS: traZODone HCL 50 MG TABLET PO (20:09)
[2024-05-07] MEDS: Levothyroxine Sodium 75 MCG TABLET PO (06:01)
[2024-05-07 07:00] VITALS: BMI 24.9
[2024-05-07] MEDS: polyethylene glycoL 3350 17 GM POWD.PACK PO (09:00)
[2024-05-07] MEDS: risperiDONE 3 MG TABLET 6 MG PO ×2 (09:01→20:51)
[2024-05-07] MEDS: cloZAPine 100 MG TABLET PO ×2 (09:01→13:55)
[2024-05-07] MEDS: lamoTRIgine 25 MG TABLET 50 MG PO ×2 (09:01→20:51)
[2024-05-07] MEDS: Famotidine 20 MG TABLET PO (09:01)
[2024-05-07] MEDS: Sennosides 8.6 MG TABLET PO (09:01)
[2024-05-07 09:05] VITALS: BP 130/72; PULSE 87; RESP 18; TEMP 36.6; O2SAT 98
--- NOTE | 2024-05-07 16:38 | HO.PSYCHPN ---
Subjective Subjective Date of Service: 05/07/24 Reason For Visit: Psychosis Subjective Notes: Conditional Voluntary Healthcare Proxy: Yes Interim History: The nursing staff reported the patient had been brighter, medication and meal compliant slept 8 hours. On interview the patient denies new symptoms. Mental Status Exam Mental Status Exam Patient Appearance: Appropriate Patient Orientation: Person and Situation Level of Consciousness: Awake and Appropriate Patient Behavior: Appropriate and Cooperative Mood Description: Calm Affect Description: Constricted Patient Cognition Impaired: Yes Ability to Follow Directions: Good Speech Pattern: Clear Hallucinations: Auditory Delusions: Paranoid Ideation and Ideas of Reference Thought Process: Distracted Thought Content: positive for [place] and positive for Circumstantial Judgement: Fair Diagnostics Vital Signs (24Hr): Vital Signs - 24 hr 05/06/24 20:00 05/07/24 09:05 Temperature 96.8 F 97.9 F Pulse Rate 82 87 Respiratory Rate 16 18 Blood Pressure 132/84 130/72 Pulse Oximetry 100 98 Oxygen Delivery Method Room Air Room Air BMI result Body Mass Index 24.9 Labs 04/05/24 15:38 04/05/24 15:38 Labs: Laboratory Results - last 48 hr 05/06/24 08:22 Absolute Neuts (auto) 3.7 Imaging Radiology Impressions: ITS Impressions Head CT 03/18/24 09:42 IMPRESSION: 1. No evidence of acute intracranial hemorrhage or edematous territorial infarction. 2. Mild to moderate underlying microangiopathy. 3. Arachnoid cyst in the right middle cranial fossa. Electronically signed by: Mino Arriaga DO 03/18/2024 06:26 PM EST RP Head CT 03/19/24 01:36 IMPRESSION: 1. Left frontal scalp soft tissue swelling. 2. No acute intracranial process seen. 3. Stable right middle cranial fossa arachnoid cyst. Electronically signed by: Andreas Olsen MD 03/19/2024 02:08 AM EST RP Head CT 04/05/24 16:20 IMPRESSION: 1. No acute intracranial hemorrhage or mass effect. 2. Stable right middle cranial fossa arachnoid cyst. Electronically signed by: Getachew Arana MD 04/05/2024 05:15 PM EST RP KUB X-Ray 04/16/24 13:57 IMPRESSION: Nonobstructive bowel gas pattern. Large colonic and rectal fecal material. Electronically signed by: Chencho Ugalde MD 04/16/2024 02:13 PM [facility] [place] Medications Current Medications Acetaminophen (Acetaminophen 325 Mg Tablet) 650 mg PO Q6H PRN PRN Reason: Headache/Pain Mild Scale (1-3) Last Admin: 05/06/24 12:10 Dose: 650 mg Al Hydroxide/Mg Hydroxide (Magnesium Hydrox/Alum Hydrox 30 Ml Oral.Susp) 30 ml PO Q6H PRN PRN Reason: Heartburn/Nausea Clozapine (Clozapine 100 Mg Tablet) 100 mg PO DAILY [facility] Last Admin: 05/07/24 09:01 Dose: 100 mg Clozapine (Clozapine 100 Mg Tablet) 100 mg PO DAILY@1230 [facility] Last Admin: 05/07/24 13:55 Dose: 100 mg Clozapine (Clozapine 100 Mg Tablet) 200 mg PO BEDTIME [facility] Last Admin: 05/06/24 20:08 Dose: 200 mg Famotidine (Famotidine 20 Mg Tablet) 20 mg PO DAILY [facility] Last Admin: 05/07/24 09:01 Dose: 20 mg Hydrocortisone (Hydrocortisone 2.5 % Rectal Cr 30 Gm Tube) 1 appl [place] DAILY [facility] Last Admin: 05/07/24 13:56 Dose: Not Given Hydroxyzine HCl (Hydroxyzine Hcl 25 Mg Tablet) 25 mg PO Q6H PRN PRN Reason: Anxiety Last Admin: 05/06/24 20:09 Dose: 25 mg Lamotrigine (Lamotrigine 25 Mg Tablet) 50 mg PO BID [facility] Last Admin: 05/07/24 09:01 Dose: 50 mg Levothyroxine Sodium (Levothyroxine Sodium 75 Mcg Tablet) 75 mcg PO DAILY@0600 [facility] Last Admin: 05/07/24 06:01 Dose: 75 mcg Magnesium Hydroxide (Milk Of Magnesia 30 Ml Oral.Susp) 30 ml PO BID PRN PRN Reason: Constipation Last Admin: 04/24/24 20:04 Dose: 30 ml Nicotine Polacrilex (Nicotine Polacrilex 2 Mg Gum) 2 mg BUCCAL Q2H PRN PRN Reason: Nicotine Cravings Polyethylene Glycol (Polyethylene Glycol 3350 17 Gm Powd.Pack) 17 gm PO DAILY PRN PRN Reason: Constipation Last Admin: 04/18/24 00:24 Dose: 17 gm Polyethylene Glycol (Polyethylene Glycol 3350 17 Gm Powd.Pack) 17 gm PO DAILY [facility] Last Admin: 05/07/24 09:00 Dose: 17 gm Risperidone (Risperidone 3 Mg Tablet) 6 mg PO BID [facility] Last Admin: 05/07/24 09:01 Dose: 6 mg Senna (Sennosides 8.6 Mg Tablet) 8.6 mg PO DAILY [facility] Last Admin: 05/07/24 09:01 Dose: 8.6 mg Trazodone HCl (Trazodone Hcl 50 Mg Tablet) 50 mg PO BEDTIME MRX1 PRN PRN Reason: Insomnia Last Admin: 05/06/24 20:09 Dose: 50 mg Allergies Allergies Allergy/AdvReac Type Severity Reaction Status Date / Time trifluoperazine Allergy Unknown Verified 03/11/24 14:16 [From Stelazine] Assessment & Plan Assessment & Plan (1) Schizophrenia: Status: Acute Code(s): F20.9 - Schizophrenia, unspecified (2) Diverticulosis: Status: Chronic Code(s): K57.90 - Diverticulosis of intestine, part unspecified, without perforation or abscess without bleeding Plan Patient is a 73-year-old female with a PMH significant for HTN, post op VTE 2 years ago, hypothyroidism, and mood disorder who was admitted to [facility] after eloping from [facility] and walking into traffic on purpose. Patient apparently believes a friend is writing a horrible story about and does not want to live after everyone reads the book as she believes everyone will hate her. Hospitalist consult for ECT risk stratification. ECT risk stratification Previously underwent ECT without complications in 1998 Currently no significant medical complaints or PMH EKG from 7 days prior at time of admission negative for ischemia RCRI 0 points, class I risk Will repeat EKG before completing risk stratification Plan 1. Continue Risperdal 6 mg p.o. b.i.d.. 2. Clozaril has been changed to 100 mg p.o. b.i.d. and 200 mg p.o. q.h.s. to avoid over-sedation. 3. So far her psychosis had become stable. 4. ECT was considered but at this point the patient is doing much better. 5. Referral for ACSS team. They assessed her on May 05 and stated that she is not at baseline but it seems that this is now her new baseline. So far she had not been assaultive for grossly disorganized after the medication changes and increase of Clozaril. 6. Waiting for placement Reason for continued inpatient stay Substantial Risk for: inability to function, rapid decompensation and med/psych decompensation Time Spent With Patient Time: Total time managing care of this patient today __20__ minutes.
[2024-05-07 20:00] VITALS: BP 128/75; PULSE 83; RESP 18; TEMP 36.6; O2SAT 100
[2024-05-07] MEDS: Milk of Magnesia 30 ML ORAL.SUSP PO (20:51)
[2024-05-07] MEDS: cloZAPine 100 MG TABLET 200 MG PO (20:51)
[2024-05-07] MEDS: hydrOXYzine HCL 25 MG TABLET PO (20:52)
[2024-05-07] MEDS: traZODone HCL 50 MG TABLET PO (20:52)
[2024-05-08] MEDS: Levothyroxine Sodium 75 MCG TABLET PO (05:50)
[2024-05-08 09:48] VITALS: BP 132/82; PULSE 85; RESP 16; TEMP 36.2; O2SAT 99
[2024-05-08] MEDS: Acetaminophen 325 MG TABLET 650 MG PO ×2 (09:57→20:43)
[2024-05-08] MEDS: Famotidine 20 MG TABLET PO (09:58)
[2024-05-08] MEDS: polyethylene glycoL 3350 17 GM POWD.PACK PO (09:58)
[2024-05-08] MEDS: Sennosides 8.6 MG TABLET PO (09:58)
[2024-05-08] MEDS: risperiDONE 3 MG TABLET 6 MG PO ×2 (09:58→20:36)
[2024-05-08] MEDS: cloZAPine 100 MG TABLET PO ×2 (09:58→13:15)
[2024-05-08] MEDS: lamoTRIgine 25 MG TABLET 50 MG PO ×2 (09:58→20:36)
--- NOTE | 2024-05-08 10:07 | P.PNPSI_ITS ---
Subjective Subjective Date of Service: 05/08/24 Reason For Visit: Psychosis Subjective Notes: Conditional Voluntary Healthcare Proxy: Yes Interim History: The nursing staff reported the patient had been compliant with treatment, he had been pleasant, slept 8 hours. The occupational therapist reported that she was paranoid in groups but she was redirected. The social worker palliative care reported that we are going to have a family meeting next Saturday to arrange discharge planning. Apparently her chronic paranoia now is her new baseline. On interview the patient denies new symptoms no evidence of side-effects. Mental Status Exam Mental Status Exam Patient Appearance: Appropriate Patient Orientation: Person and Situation Level of Consciousness: Awake and Appropriate Patient Behavior: Guarded and Passive Mood Description: Withdrawn Affect Description: Constricted Patient Cognition Impaired: Yes Ability to Follow Directions: Good Speech Pattern: Clear Hallucinations: Auditory Delusions: Paranoid Ideation and Ideas of Reference Thought Process: Distracted and Slowed Thinking Thought Content: positive for [place] and positive for Poverty of Content Judgement: Fair Diagnostics Vital Signs (24Hr): Vital Signs - 24 hr 05/07/24 20:00 05/08/24 09:48 Temperature 97.8 F 97.2 F Pulse Rate 83 85 Respiratory Rate 18 16 Blood Pressure 128/75 132/82 Pulse Oximetry 100 99 Oxygen Delivery Method Room Air BMI result Body Mass Index 24.9 Labs 04/05/24 15:38 04/05/24 15:38 Imaging Radiology Impressions: ITS Impressions Head CT 03/18/24 09:42 IMPRESSION: 1. No evidence of acute intracranial hemorrhage or edematous territorial infarction. 2. Mild to moderate underlying microangiopathy. 3. Arachnoid cyst in the right middle cranial fossa. Electronically signed by: Mino Arriaga DO 03/18/2024 06:26 PM EST RP Head CT 03/19/24 01:36 IMPRESSION: 1. Left frontal scalp soft tissue swelling. 2. No acute intracranial process seen. 3. Stable right middle cranial fossa arachnoid cyst. Electronically signed by: Andreas Olsen MD 03/19/2024 02:08 AM EST RP Head CT 04/05/24 16:20 IMPRESSION: 1. No acute intracranial hemorrhage or mass effect. 2. Stable right middle cranial fossa arachnoid cyst. Electronically signed by: Getachew Arana MD 04/05/2024 05:15 PM EST RP KUB X-Ray 04/16/24 13:57 IMPRESSION: Nonobstructive bowel gas pattern. Large colonic and rectal fecal material. Electronically signed by: Chencho Ugalde MD 04/16/2024 02:13 PM EST RP Medications Medications Current Medications Acetaminophen (Acetaminophen 325 Mg Tablet) 650 mg PO Q6H PRN PRN Reason: Headache/Pain Mild Scale (1-3) Last Admin: 05/08/24 09:57 Dose: 650 mg Al Hydroxide/Mg Hydroxide (Magnesium Hydrox/Alum Hydrox 30 Ml Oral.Susp) 30 ml PO Q6H PRN PRN Reason: Heartburn/Nausea Clozapine (Clozapine 100 Mg Tablet) 100 mg PO DAILY [facility] Last Admin: 05/08/24 09:58 Dose: 100 mg Clozapine (Clozapine 100 Mg Tablet) 100 mg PO DAILY@1230 [facility] Last Admin: 05/07/24 13:55 Dose: 100 mg Clozapine (Clozapine 100 Mg Tablet) 200 mg PO BEDTIME [facility] Last Admin: 05/07/24 20:51 Dose: 200 mg Famotidine (Famotidine 20 Mg Tablet) 20 mg PO DAILY [facility] Last Admin: 05/08/24 09:58 Dose: 20 mg Hydrocortisone (Hydrocortisone 2.5 % Rectal Cr 30 Gm Tube) 1 appl AL DAILY [facility] Last Admin: 05/08/24 09:58 Dose: Not Given Hydroxyzine HCl (Hydroxyzine Hcl 25 Mg Tablet) 25 mg PO Q6H PRN PRN Reason: Anxiety Last Admin: 05/07/24 20:52 Dose: 25 mg Lamotrigine (Lamotrigine 25 Mg Tablet) 50 mg PO BID [facility] Last Admin: 05/08/24 09:58 Dose: 50 mg Levothyroxine Sodium (Levothyroxine Sodium 75 Mcg Tablet) 75 mcg PO DAILY@0600 [facility] Last Admin: 05/08/24 05:50 Dose: 75 mcg Magnesium Hydroxide (Milk Of Magnesia 30 Ml Oral.Susp) 30 ml PO BID PRN PRN Reason: Constipation Last Admin: 05/07/24 20:51 Dose: 30 ml Nicotine Polacrilex (Nicotine Polacrilex 2 Mg Gum) 2 mg BUCCAL Q2H PRN PRN Reason: Nicotine Cravings Polyethylene Glycol (Polyethylene Glycol 3350 17 Gm Powd.Pack) 17 gm PO DAILY PRN PRN Reason: Constipation Last Admin: 04/18/24 00:24 Dose: 17 gm Polyethylene Glycol (Polyethylene Glycol 3350 17 Gm Powd.Pack) 17 gm PO DAILY [facility] Last Admin: 05/08/24 09:58 Dose: 17 gm Risperidone (Risperidone 3 Mg Tablet) 6 mg PO BID [facility] Last Admin: 05/08/24 09:58 Dose: 6 mg Senna (Sennosides 8.6 Mg Tablet) 8.6 mg PO DAILY [facility] Last Admin: 05/08/24 09:58 Dose: 8.6 mg Trazodone HCl (Trazodone Hcl 50 Mg Tablet) 50 mg PO BEDTIME MRX1 PRN PRN Reason: Insomnia Last Admin: 05/07/24 20:52 Dose: 50 mg Allergies Allergies Allergy/AdvReac Type Severity Reaction Status Date / Time trifluoperazine Allergy Unknown Verified 03/11/24 14:16 [From Stelazine] Assessment & Plan Assessment & Plan (1) Schizophrenia: Status: Acute Code(s): F20.9 - Schizophrenia, unspecified (2) Diverticulosis: Status: Chronic Code(s): K57.90 - Diverticulosis of intestine, part unspecified, without perforation or abscess without bleeding Plan Patient is a 73-year-old female with a PMH significant for HTN, post op VTE 2 years ago, hypothyroidism, and mood disorder who was admitted to [facility] after eloping from [facility] and walking into traffic on purpose. Patient apparently believes a friend is writing a horrible story about and does not want to live after everyone reads the book as she believes everyone will hate her. Hospitalist consult for ECT risk stratification. ECT risk stratification Previously underwent ECT without complications in 1998 Currently no significant medical complaints or PMH EKG from 7 days prior at time of admission negative for ischemia RCRI 0 points, class I risk Will repeat EKG before completing risk stratification Plan 1. Continue Risperdal 6 mg p.o. b.i.d.. 2. Clozaril has been changed to 100 mg p.o. b.i.d. and 200 mg p.o. q.h.s. to avoid over-sedation. 3. So far her psychosis had become stable. 4. ECT was considered but at this point the patient is doing much better. 5. Referral for ACSS team. They assessed her on May 05 and stated that she is not at baseline but it seems that this is now her new baseline. So far she had not been assaultive for grossly disorganized after the medication changes and increase of Clozaril. 6. Waiting for placement Reason for continued inpatient stay Substantial Risk for: inability to function, rapid decompensation and med/psych decompensation Time Spent With Patient Time: Total time managing care of this patient today _20___ minutes.
[2024-05-08 19:52] VITALS: RESP 17
[2024-05-08] MEDS: traZODone HCL 50 MG TABLET PO (20:36)
[2024-05-08] MEDS: hydrOXYzine HCL 25 MG TABLET PO (20:36)
[2024-05-08] MEDS: cloZAPine 100 MG TABLET 200 MG PO (20:36)
[2024-05-09] MEDS: Levothyroxine Sodium 75 MCG TABLET PO (06:26)
[2024-05-09 07:55] VITALS: BP 108/67; PULSE 80; RESP 18; TEMP 36.4; O2SAT 98
--- NOTE | 2024-05-09 08:09 | HO.PSYCHPN ---
Subjective Subjective Date of Service: 05/09/24 Reason For Visit: Psychosis Subjective Notes: Conditional Voluntary Healthcare Proxy: Yes Interim History: The nursing staff reported the patient had been compliant with treatment, she slept all night. On interview the patient reported that she was hearing voices and she was willing to take PRNs. We discussed options and she agreed to try Zyprexa The social welfare clerk reported yesterday that her daughter wants to have ECT. I received an e-mail from her asking to do ECT since she feels that the patient is not at baseline. We are going to have a family meeting early next week. Mental Status Exam Mental Status Exam Patient Appearance: Appropriate Patient Orientation: Person and Situation Level of Consciousness: Awake and Appropriate Patient Behavior: Guarded and Passive Mood Description: Withdrawn Affect Description: Calm Patient Cognition Impaired: Yes Ability to Follow Directions: Good Speech Pattern: Clear Hallucinations: None Delusions: Paranoid Ideation and Ideas of Reference Thought Process: Distracted and Slowed Thinking Thought Content: positive for [place] and positive for Poverty of Content Judgement: Fair Diagnostics Vital Signs (24Hr): Vital Signs - 24 hr 05/08/24 09:48 05/08/24 19:52 Temperature 97.2 F Pulse Rate 85 Respiratory Rate 16 17 Blood Pressure 132/82 Pulse Oximetry 99 BMI result Body Mass Index 24.9 Labs 04/05/24 15:38 04/05/24 15:38 Imaging Radiology Impressions: ITS Impressions Head CT 03/18/24 09:42 IMPRESSION: 1. No evidence of acute intracranial hemorrhage or edematous territorial infarction. 2. Mild to moderate underlying microangiopathy. 3. Arachnoid cyst in the right middle cranial fossa. Electronically signed by: Mino Arriaga DO 03/18/2024 06:26 PM EST RP Head CT 03/19/24 01:36 IMPRESSION: 1. Left frontal scalp soft tissue swelling. 2. No acute intracranial process seen. 3. Stable right middle cranial fossa arachnoid cyst. Electronically signed by: Andreas Olsen MD 03/19/2024 02:08 AM EST RP Head CT 04/05/24 16:20 IMPRESSION: 1. No acute intracranial hemorrhage or mass effect. 2. Stable right middle cranial fossa arachnoid cyst. Electronically signed by: Getachew Arana MD 04/05/2024 05:15 PM EST RP KUB X-Ray 04/16/24 13:57 IMPRESSION: Nonobstructive bowel gas pattern. Large colonic and rectal fecal material. Electronically signed by: Chencho Ugalde MD 04/16/2024 02:13 PM EST RP Medications Medications Current Medications Acetaminophen (Acetaminophen 325 Mg Tablet) 650 mg PO Q6H PRN PRN Reason: Headache/Pain Mild Scale (1-3) Last Admin: 05/08/24 20:43 Dose: 650 mg Al Hydroxide/Mg Hydroxide (Magnesium Hydrox/Alum Hydrox 30 Ml Oral.Susp) 30 ml PO Q6H PRN PRN Reason: Heartburn/Nausea Clozapine (Clozapine 100 Mg Tablet) 100 mg PO DAILY [facility] Last Admin: 05/08/24 09:58 Dose: 100 mg Clozapine (Clozapine 100 Mg Tablet) 100 mg PO DAILY@1230 [facility] Last Admin: 05/08/24 13:15 Dose: 100 mg Clozapine (Clozapine 100 Mg Tablet) 200 mg PO BEDTIME [facility] Last Admin: 05/08/24 20:36 Dose: 200 mg Famotidine (Famotidine 20 Mg Tablet) 20 mg PO DAILY [facility] Last Admin: 05/08/24 09:58 Dose: 20 mg Hydrocortisone (Hydrocortisone 2.5 % Rectal Cr 30 Gm Tube) [address] DAILY [facility] Last Admin: 05/08/24 09:58 Dose: Not Given Hydroxyzine HCl (Hydroxyzine Hcl 25 Mg Tablet) 25 mg PO Q6H PRN PRN Reason: Anxiety Last Admin: 05/08/24 20:36 Dose: 25 mg Lamotrigine (Lamotrigine 25 Mg Tablet) 50 mg PO BID [facility] Last Admin: 05/08/24 20:36 Dose: 50 mg Levothyroxine Sodium (Levothyroxine Sodium 75 Mcg Tablet) 75 mcg PO DAILY@0600 [facility] Last Admin: 05/09/24 06:26 Dose: 75 mcg Magnesium Hydroxide (Milk Of Magnesia 30 Ml Oral.Susp) 30 ml PO BID PRN PRN Reason: Constipation Last Admin: 05/07/24 20:51 Dose: 30 ml Nicotine Polacrilex (Nicotine Polacrilex 2 Mg Gum) 2 mg BUCCAL Q2H PRN PRN Reason: Nicotine Cravings Polyethylene Glycol (Polyethylene Glycol 3350 17 Gm Powd.Pack) 17 gm PO DAILY PRN PRN Reason: Constipation Last Admin: 04/18/24 00:24 Dose: 17 gm Polyethylene Glycol (Polyethylene Glycol 3350 17 Gm Powd.Pack) 17 gm PO DAILY [facility] Last Admin: 05/08/24 09:58 Dose: 17 gm Risperidone (Risperidone 3 Mg Tablet) 6 mg PO BID [facility] Last Admin: 05/08/24 20:36 Dose: 6 mg Senna (Sennosides 8.6 Mg Tablet) 8.6 mg PO DAILY [facility] Last Admin: 05/08/24 09:58 Dose: 8.6 mg Trazodone HCl (Trazodone Hcl 50 Mg Tablet) 50 mg PO BEDTIME MRX1 PRN PRN Reason: Insomnia Last Admin: 05/08/24 20:36 Dose: 50 mg Allergies Allergies Allergy/AdvReac Type Severity Reaction Status Date / Time trifluoperazine Allergy Unknown Verified 03/11/24 14:16 [From Stelazine] Assessment & Plan Assessment & Plan (1) Schizophrenia: Status: Acute Code(s): F20.9 - Schizophrenia, unspecified (2) Diverticulosis: Status: Chronic Code(s): K57.90 - Diverticulosis of intestine, part unspecified, without perforation or abscess without bleeding Plan Patient is a 73-year-old female with a PMH significant for HTN, post op VTE 2 years ago, hypothyroidism, and mood disorder who was admitted to [facility] after eloping from [facility] and walking into traffic on purpose. Patient apparently believes a friend is writing a horrible story about and does not want to live after everyone reads the book as she believes everyone will hate her. Hospitalist consult for ECT risk stratification. ECT risk stratification Previously underwent ECT without complications in 1998 Currently no significant medical complaints or PMH EKG from 7 days prior at time of admission negative for ischemia RCRI 0 points, class I risk Will repeat EKG before completing risk stratification Plan 1. Continue Risperdal 6 mg p.o. b.i.d.. 2. Clozaril has been changed to 100 mg p.o. b.i.d. and 200 mg p.o. q.h.s. to avoid over-sedation. 3. So far her psychosis had become stable. 4. ECT was considered but at this point the patient is doing much better. 5. Referral for ACSS team. They assessed her on May 05 and stated that she is not at baseline but it seems that this is now her new baseline. So far she had not been assaultive for grossly disorganized after the medication changes and increase of Clozaril. 6. Family meeting next week to address the possibility of ECT and disposition. 7. Zyprexa 5 mg p.o. q.6 hours PRNs hallucinations. Reason for continued inpatient stay Substantial Risk for: inability to function, rapid decompensation and med/psych decompensation Time Spent With Patient Time: Total time managing care of this patient today __20__ minutes.
[2024-05-09] MEDS: Sennosides 8.6 MG TABLET PO (08:13)
[2024-05-09] MEDS: cloZAPine 100 MG TABLET PO ×2 (08:13→11:51)
[2024-05-09] MEDS: risperiDONE 3 MG TABLET 6 MG PO ×2 (08:13→20:43)
[2024-05-09] MEDS: lamoTRIgine 25 MG TABLET 50 MG PO ×2 (08:13→20:44)
[2024-05-09] MEDS: Famotidine 20 MG TABLET PO (08:14)
[2024-05-09] MEDS: polyethylene glycoL 3350 17 GM POWD.PACK PO (08:14)
[2024-05-09] MEDS: OLANZapine 5 MG TABLET PO (10:24)
[2024-05-09 20:00] VITALS: BP 115/58; PULSE 91; RESP 16; TEMP 36.7; O2SAT 96
[2024-05-09] MEDS: Acetaminophen 325 MG TABLET 650 MG PO (20:43)
[2024-05-09] MEDS: cloZAPine 100 MG TABLET 200 MG PO (20:44)
[2024-05-09] MEDS: traZODone HCL 50 MG TABLET PO (20:48)
[2024-05-09] MEDS: hydrOXYzine HCL 25 MG TABLET PO (20:49)
[2024-05-10] MEDS: Levothyroxine Sodium 75 MCG TABLET PO (06:21)
[2024-05-10 09:05] VITALS: BP 118/77; PULSE 91; RESP 18; TEMP 2.5; TEMP 36.5; O2SAT 99
[2024-05-10] MEDS: polyethylene glycoL 3350 17 GM POWD.PACK PO (09:07)
[2024-05-10] MEDS: risperiDONE 3 MG TABLET 6 MG PO ×2 (09:07→19:53)
[2024-05-10] MEDS: Famotidine 20 MG TABLET PO (09:07)
[2024-05-10] MEDS: cloZAPine 100 MG TABLET PO ×2 (09:07→13:34)
[2024-05-10] MEDS: lamoTRIgine 25 MG TABLET 50 MG PO ×2 (09:07→19:53)
[2024-05-10] MEDS: Sennosides 8.6 MG TABLET PO (09:07)
[2024-05-10] MEDS: Acetaminophen 325 MG TABLET 650 MG PO (09:15)
--- NOTE | 2024-05-10 09:52 | HO.PSYCHPN ---
Subjective Subjective Date of Service: 05/10/24 Reason For Visit: Psychosis Subjective Notes: Conditional Voluntary Healthcare Proxy: Yes Interim History: The nursing staff reported the patient had been visible in the unit, medication compliant and took Tylenol for back pain. On interview the patient reported sporadic auditory hallucinations she reported that Zyprexa helped her a little as a p.r.n.. Mental Status Exam Mental Status Exam Patient Appearance: Appropriate Patient Orientation: Person and Situation Level of Consciousness: Awake and Appropriate Patient Behavior: Guarded and Passive Mood Description: Withdrawn Affect Description: Constricted Patient Cognition Impaired: Yes Ability to Follow Directions: Good Speech Pattern: Clear Hallucinations: Auditory Delusions: Paranoid Ideation and Ideas of Reference Thought Process: Distracted and Slowed Thinking Thought Content: positive for [place] and positive for Poverty of Content Judgement: Poor Diagnostics Vital Signs (24Hr): Vital Signs - 24 hr 05/09/24 20:00 05/10/24 09:05 Temperature 98.1 F 36.5 F L Pulse Rate 91 91 Respiratory Rate 16 18 Blood Pressure 115/58 L 118/77 Pulse Oximetry 96 99 Oxygen Delivery Method Room Air Room Air BMI result Body Mass Index 24.9 Labs 04/05/24 15:38 04/05/24 15:38 Imaging Radiology Impressions: ITS Impressions Head CT 03/18/24 09:42 IMPRESSION: 1. No evidence of acute intracranial hemorrhage or edematous territorial infarction. 2. Mild to moderate underlying microangiopathy. 3. Arachnoid cyst in the right middle cranial fossa. Electronically signed by: Mino Arriaga DO 03/18/2024 06:26 PM EST RP Head CT 03/19/24 01:36 IMPRESSION: 1. Left frontal scalp soft tissue swelling. 2. No acute intracranial process seen. 3. Stable right middle cranial fossa arachnoid cyst. Electronically signed by: Andreas Olsen MD 03/19/2024 02:08 AM EST RP Head CT 04/05/24 16:20 IMPRESSION: 1. No acute intracranial hemorrhage or mass effect. 2. Stable right middle cranial fossa arachnoid cyst. Electronically signed by: Getachew Arana MD 04/05/2024 05:15 PM EST RP KUB X-Ray 04/16/24 13:57 IMPRESSION: Nonobstructive bowel gas pattern. Large colonic and rectal fecal material. Electronically signed by: Chencho Ugalde MD 04/16/2024 02:13 PM [facility] Medications Medications Current Medications Acetaminophen (Acetaminophen 325 Mg Tablet) 650 mg PO Q6H PRN PRN Reason: Headache/Pain Mild Scale (1-3) Last Admin: 05/10/24 09:15 Dose: 650 mg Al Hydroxide/Mg Hydroxide (Magnesium Hydrox/Alum Hydrox 30 Ml Oral.Susp) 30 ml PO Q6H PRN PRN Reason: Heartburn/Nausea Clozapine (Clozapine 100 Mg Tablet) 100 mg PO DAILY [facility] Last Admin: 05/10/24 09:07 Dose: 100 mg Clozapine (Clozapine 100 Mg Tablet) 100 mg PO DAILY@1230 [facility] Last Admin: 05/09/24 11:51 Dose: 100 mg Clozapine (Clozapine 100 Mg Tablet) 200 mg PO BEDTIME [facility] Last Admin: 05/09/24 20:44 Dose: 200 mg Famotidine (Famotidine 20 Mg Tablet) 20 mg PO DAILY [facility] Last Admin: 05/10/24 09:07 Dose: 20 mg Hydrocortisone (Hydrocortisone 2.5 % Rectal Cr 30 Gm Tube) 1 appl AR DAILY [facility] Last Admin: 05/10/24 09:09 Dose: Not Given Hydroxyzine HCl (Hydroxyzine Hcl 25 Mg Tablet) 25 mg PO Q6H PRN PRN Reason: Anxiety Last Admin: 05/09/24 20:49 Dose: 25 mg Lamotrigine (Lamotrigine 25 Mg Tablet) 50 mg PO BID [facility] Last Admin: 05/10/24 09:07 Dose: 50 mg Levothyroxine Sodium (Levothyroxine Sodium 75 Mcg Tablet) 75 mcg PO DAILY@0600 [facility] Last Admin: 05/10/24 06:21 Dose: 75 mcg Magnesium Hydroxide (Milk Of Magnesia 30 Ml Oral.Susp) 30 ml PO BID PRN PRN Reason: Constipation Last Admin: 05/07/24 20:51 Dose: 30 ml Nicotine Polacrilex (Nicotine Polacrilex 2 Mg Gum) 2 mg BUCCAL Q2H PRN PRN Reason: Nicotine Cravings Olanzapine (Olanzapine 5 Mg Tablet) 5 mg PO Q4H PRN PRN Reason: Psychosis Last Admin: 05/09/24 10:24 Dose: 5 mg Polyethylene Glycol (Polyethylene Glycol 3350 17 Gm Powd.Pack) 17 gm PO DAILY PRN PRN Reason: Constipation Last Admin: 04/18/24 00:24 Dose: 17 gm Polyethylene Glycol (Polyethylene Glycol 3350 17 Gm Powd.Pack) 17 gm PO DAILY [facility] Last Admin: 05/10/24 09:07 Dose: 17 gm Risperidone (Risperidone 3 Mg Tablet) 6 mg PO BID [facility] Last Admin: 05/10/24 09:07 Dose: 6 mg Senna (Sennosides 8.6 Mg Tablet) 8.6 mg PO DAILY [facility] Last Admin: 05/10/24 09:07 Dose: 8.6 mg Trazodone HCl (Trazodone Hcl 50 Mg Tablet) 50 mg PO BEDTIME MRX1 PRN PRN Reason: Insomnia Last Admin: 05/09/24 20:48 Dose: 50 mg Allergies Allergies Allergy/AdvReac Type Severity Reaction Status Date / Time trifluoperazine Allergy Unknown Verified 03/11/24 14:16 [From Stelazine] Assessment & Plan Assessment & Plan (1) Schizophrenia: Status: Acute Code(s): F20.9 - Schizophrenia, unspecified (2) Diverticulosis: Status: Chronic Code(s): K57.90 - Diverticulosis of intestine, part unspecified, without perforation or abscess without bleeding Plan Patient is a 73-year-old female with a PMH significant for HTN, post op VTE 2 years ago, hypothyroidism, and mood disorder who was admitted to [facility] after eloping from [facility] and walking into traffic on purpose. Patient apparently believes a friend is writing a horrible story about and does not want to live after everyone reads the book as she believes everyone will hate her. Hospitalist consult for ECT risk stratification. ECT risk stratification Previously underwent ECT without complications in 1998 Currently no significant medical complaints or PMH EKG from 7 days prior at time of admission negative for ischemia RCRI 0 points, class I risk Will repeat EKG before completing risk stratification Plan 1. Continue Risperdal 6 mg p.o. b.i.d.. 2. Clozaril has been changed to 100 mg p.o. b.i.d. and 200 mg p.o. q.h.s. to avoid over-sedation. 3. So far her psychosis had become stable. 4. ECT was considered but at this point the patient is doing much better. 5. Referral for ACSS team. They assessed her on May 05 and stated that she is not at baseline but it seems that this is now her new baseline. So far she had not been assaultive for grossly disorganized after the medication changes and increase of Clozaril. 6. Family meeting next week to address the possibility of ECT and disposition. 7. Zyprexa 5 mg p.o. q.6 hours PRNs hallucinations. Reason for continued inpatient stay Substantial Risk for: inability to function, rapid decompensation and med/psych decompensation Time Spent With Patient Time: Total time managing care of this patient today __20__ minutes.
[2024-05-10 19:51] VITALS: BP 128/77; PULSE 85; RESP 16; TEMP 36.8; O2SAT 97
[2024-05-10] MEDS: cloZAPine 100 MG TABLET 200 MG PO (19:53)
[2024-05-11] MEDS: Levothyroxine Sodium 75 MCG TABLET PO (05:18)
[2024-05-11 08:00] VITALS: BP 108/69; PULSE 84; RESP 15; TEMP 36.8; O2SAT 96
[2024-05-11] MEDS: risperiDONE 3 MG TABLET 6 MG PO ×2 (09:06→20:04)
[2024-05-11] MEDS: Famotidine 20 MG TABLET PO (09:07)
[2024-05-11] MEDS: cloZAPine 100 MG TABLET PO ×2 (09:07→13:18)
[2024-05-11] MEDS: Sennosides 8.6 MG TABLET PO (09:07)
[2024-05-11] MEDS: lamoTRIgine 25 MG TABLET 50 MG PO ×2 (09:07→20:04)
[2024-05-11] MEDS: polyethylene glycoL 3350 17 GM POWD.PACK PO (09:08)
[2024-05-11] MEDS: Milk of Magnesia 30 ML ORAL.SUSP PO (09:13)
--- NOTE | 2024-05-11 12:25 | HO.PSYCHPN ---
Subjective Subjective Date of Service: 05/11/24 Reason For Visit: Psychosis Subjective Notes: Conditional Voluntary Healthcare Proxy: Yes Interim History: The nursing staff reported the auditory hallucinations, she slept 7 hours and she had been compliant with treatment. On interview the patient reported that she had been hearing some voices but Zyprexa has helped a little. The hospice social worker reported we have a family meeting tomorrow. Mental Status Exam Mental Status Exam Patient Appearance: Appropriate Patient Orientation: Person and Situation Level of Consciousness: Awake and Appropriate Patient Behavior: Guarded and Passive Mood Description: Withdrawn Affect Description: Constricted Patient Cognition Impaired: Yes Ability to Follow Directions: Good Speech Pattern: Clear Hallucinations: Auditory Delusions: Paranoid Ideation and Ideas of Reference Thought Process: Distracted and Slowed Thinking Thought Content: positive for [place] and positive for Circumstantial Judgement: Fair Diagnostics Vital Signs (24Hr): Vital Signs - 24 hr 05/10/24 19:51 05/11/24 08:00 Temperature 98.2 F 98.2 F Pulse Rate 85 84 Respiratory Rate 16 15 Blood Pressure 128/77 108/69 Pulse Oximetry 97 96 Oxygen Delivery Method Room Air Room Air BMI result Body Mass Index 24.9 Labs 04/05/24 15:38 04/05/24 15:38 Imaging Radiology Impressions: ITS Impressions Head CT 03/18/24 09:42 IMPRESSION: 1. No evidence of acute intracranial hemorrhage or edematous territorial infarction. 2. Mild to moderate underlying microangiopathy. 3. Arachnoid cyst in the right middle cranial fossa. Electronically signed by: Mino Arriaga DO 03/18/2024 06:26 PM EST RP Head CT 03/19/24 01:36 IMPRESSION: 1. Left frontal scalp soft tissue swelling. 2. No acute intracranial process seen. 3. Stable right middle cranial fossa arachnoid cyst. Electronically signed by: Andreas Olsen MD 03/19/2024 02:08 AM EST RP Head CT 04/05/24 16:20 IMPRESSION: 1. No acute intracranial hemorrhage or mass effect. 2. Stable right middle cranial fossa arachnoid cyst. Electronically signed by: Getachew Arana MD 04/05/2024 05:15 PM EST RP KUB X-Ray 04/16/24 13:57 IMPRESSION: Nonobstructive bowel gas pattern. Large colonic and rectal fecal material. Electronically signed by: Chencho Ugalde MD 04/16/2024 02:13 PM [facility] Medications Medications Current Medications Acetaminophen (Acetaminophen 325 Mg Tablet) 650 mg PO Q6H PRN PRN Reason: Headache/Pain Mild Scale (1-3) Last Admin: 05/10/24 09:15 Dose: 650 mg Al Hydroxide/Mg Hydroxide (Magnesium Hydrox/Alum Hydrox 30 Ml Oral.Susp) 30 ml PO Q6H PRN PRN Reason: Heartburn/Nausea Clozapine (Clozapine 100 Mg Tablet) 100 mg PO DAILY [facility] Last Admin: 05/11/24 09:07 Dose: 100 mg Clozapine (Clozapine 100 Mg Tablet) 100 mg PO DAILY@1230 [facility] Last Admin: 05/10/24 13:34 Dose: 100 mg Clozapine (Clozapine 100 Mg Tablet) 200 mg PO BEDTIME [facility] Last Admin: 05/10/24 19:53 Dose: 200 mg Famotidine (Famotidine 20 Mg Tablet) 20 mg PO DAILY [facility] Last Admin: 05/11/24 09:07 Dose: 20 mg Hydrocortisone (Hydrocortisone 2.5 % Rectal Cr 30 Gm Tube) 1 appl [place] DAILY [facility] Last Admin: 05/11/24 09:08 Dose: Not Given Hydroxyzine HCl (Hydroxyzine Hcl 25 Mg Tablet) 25 mg PO Q6H PRN PRN Reason: Anxiety Last Admin: 05/09/24 20:49 Dose: 25 mg Lamotrigine (Lamotrigine 25 Mg Tablet) 50 mg PO BID [facility] Last Admin: 05/11/24 09:07 Dose: 50 mg Levothyroxine Sodium (Levothyroxine Sodium 75 Mcg Tablet) 75 mcg PO DAILY@0600 [facility] Last Admin: 05/11/24 05:18 Dose: 75 mcg Magnesium Hydroxide (Milk Of Magnesia 30 Ml Oral.Susp) 30 ml PO BID PRN PRN Reason: Constipation Last Admin: 05/11/24 09:13 Dose: 30 ml Nicotine Polacrilex (Nicotine Polacrilex 2 Mg Gum) 2 mg BUCCAL Q2H PRN PRN Reason: Nicotine Cravings Olanzapine (Olanzapine 5 Mg Tablet) 5 mg PO Q4H PRN PRN Reason: Psychosis Last Admin: 05/09/24 10:24 Dose: 5 mg Polyethylene Glycol (Polyethylene Glycol 3350 17 Gm Powd.Pack) 17 gm PO DAILY PRN PRN Reason: Constipation Last Admin: 04/18/24 00:24 Dose: 17 gm Polyethylene Glycol (Polyethylene Glycol 3350 17 Gm Powd.Pack) 17 gm PO DAILY [facility] Last Admin: 05/11/24 09:08 Dose: 17 gm Risperidone (Risperidone 3 Mg Tablet) 6 mg PO BID [facility] Last Admin: 05/11/24 09:06 Dose: 6 mg Senna (Sennosides 8.6 Mg Tablet) 8.6 mg PO DAILY [facility] Last Admin: 05/11/24 09:07 Dose: 8.6 mg Trazodone HCl (Trazodone Hcl 50 Mg Tablet) 50 mg PO BEDTIME MRX1 PRN PRN Reason: Insomnia Last Admin: 05/09/24 20:48 Dose: 50 mg Allergies Allergies Allergy/AdvReac Type Severity Reaction Status Date / Time trifluoperazine Allergy Unknown Verified 03/11/24 14:16 [From Stelazine] Assessment & Plan Assessment & Plan (1) Schizophrenia: Status: Acute Code(s): F20.9 - Schizophrenia, unspecified (2) Diverticulosis: Status: Chronic Code(s): K57.90 - Diverticulosis of intestine, part unspecified, without perforation or abscess without bleeding Plan Patient is a 73-year-old female with a PMH significant for HTN, post op VTE 2 years ago, hypothyroidism, and mood disorder who was admitted to [facility] after eloping from [facility] and walking into traffic on purpose. Patient apparently believes a friend is writing a horrible story about and does not want to live after everyone reads the book as she believes everyone will hate her. Hospitalist consult for ECT risk stratification. ECT risk stratification Previously underwent ECT without complications in 1998 Currently no significant medical complaints or PMH EKG from 7 days prior at time of admission negative for ischemia RCRI 0 points, class I risk Will repeat EKG before completing risk stratification Plan 1. Continue Risperdal 6 mg p.o. b.i.d.. 2. Clozaril has been changed to 100 mg p.o. b.i.d. and 200 mg p.o. q.h.s. to avoid over-sedation. 3. So far her psychosis had become stable. 4. ECT was considered but at this point the patient is doing much better. 5. Referral for ACSS team. They assessed her on May 05 and stated that she is not at baseline but it seems that this is now her new baseline. So far she had not been assaultive for grossly disorganized after the medication changes and increase of Clozaril. 6. Family meeting next week to address the possibility of ECT and disposition. 7. Zyprexa 5 mg p.o. q.6 hours PRNs hallucinations. Reason for continued inpatient stay Substantial Risk for: inability to function, rapid decompensation and med/psych decompensation Time Spent With Patient Time: Total time managing care of this patient today __20__ minutes.
[2024-05-11 19:54] VITALS: BP 119/64; PULSE 90; RESP 15; TEMP 36.3; O2SAT 97
[2024-05-11] MEDS: cloZAPine 100 MG TABLET 200 MG PO (20:04)
[2024-05-12] MEDS: Levothyroxine Sodium 75 MCG TABLET PO (05:36)
[2024-05-12 08:00] VITALS: BP 126/74; PULSE 84; RESP 18; TEMP 36.5; O2SAT 97
[2024-05-12] MEDS: cloZAPine 100 MG TABLET PO ×2 (09:15→12:43)
[2024-05-12] MEDS: risperiDONE 3 MG TABLET 6 MG PO ×2 (09:15→20:12)
[2024-05-12] MEDS: lamoTRIgine 25 MG TABLET 50 MG PO ×2 (09:16→20:12)
[2024-05-12] MEDS: Sennosides 8.6 MG TABLET PO (09:16)
[2024-05-12] MEDS: Famotidine 20 MG TABLET PO (09:16)
--- NOTE | 2024-05-12 10:53 | HO.PSYCHPN ---
Subjective Subjective Date of Service: 05/12/24 Reason For Visit: Psychosis Subjective Notes: Conditional Voluntary Healthcare Proxy: Yes Interim History: The nursing staff reported the patient has been pleasant, slept 7 hours. Her daughter wants her to have ECT and she is going to sign consents for anesthesia and the procedure. On interview I explained her that her daughter wants her to have this procedure and she was not pleased. Mental Status Exam Mental Status Exam Patient Appearance: Appropriate Patient Orientation: Person and Situation Level of Consciousness: Awake and Appropriate Patient Behavior: Guarded and Passive Mood Description: Withdrawn Affect Description: Constricted Patient Cognition Impaired: Yes Ability to Follow Directions: Good Speech Pattern: Clear Hallucinations: Auditory Delusions: Paranoid Ideation and Ideas of Reference Thought Process: Distracted and Slowed Thinking Thought Content: positive for [place] and positive for Poverty of Content Judgement: Fair Diagnostics Vital Signs (24Hr): Vital Signs - 24 hr 05/11/24 19:54 05/12/24 08:00 Temperature 97.3 F 97.7 F Pulse Rate 90 84 Respiratory Rate 15 18 Blood Pressure 119/64 126/74 Pulse Oximetry 97 97 Oxygen Delivery Method Room Air Room Air BMI result Body Mass Index 24.9 Labs 04/05/24 15:38 04/05/24 15:38 Imaging Radiology Impressions: ITS Impressions Head CT 03/18/24 09:42 IMPRESSION: 1. No evidence of acute intracranial hemorrhage or edematous territorial infarction. 2. Mild to moderate underlying microangiopathy. 3. Arachnoid cyst in the right middle cranial fossa. Electronically signed by: Mino Arriaga DO 03/18/2024 06:26 PM EST RP Head CT 03/19/24 01:36 IMPRESSION: 1. Left frontal scalp soft tissue swelling. 2. No acute intracranial process seen. 3. Stable right middle cranial fossa arachnoid cyst. Electronically signed by: Andreas Olsen MD 03/19/2024 02:08 AM EST RP Head CT 04/05/24 16:20 IMPRESSION: 1. No acute intracranial hemorrhage or mass effect. 2. Stable right middle cranial fossa arachnoid cyst. Electronically signed by: Getachew Arana MD 04/05/2024 05:15 PM EST RP KUB X-Ray 04/16/24 13:57 IMPRESSION: Nonobstructive bowel gas pattern. Large colonic and rectal fecal material. Electronically signed by: Chencho Ugalde MD 04/16/2024 02:13 PM [facility] Medications Medications Current Medications Acetaminophen (Acetaminophen 325 Mg Tablet) 650 mg PO Q6H PRN PRN Reason: Headache/Pain Mild Scale (1-3) Last Admin: 05/10/24 09:15 Dose: 650 mg Al Hydroxide/Mg Hydroxide (Magnesium Hydrox/Alum Hydrox 30 Ml Oral.Susp) 30 ml PO Q6H PRN PRN Reason: Heartburn/Nausea Clozapine (Clozapine 100 Mg Tablet) 100 mg PO DAILY [facility] Last Admin: 05/12/24 09:15 Dose: 100 mg Clozapine (Clozapine 100 Mg Tablet) 100 mg PO DAILY@1230 [facility] Last Admin: 05/11/24 13:18 Dose: 100 mg Clozapine (Clozapine 100 Mg Tablet) 200 mg PO BEDTIME [facility] Last Admin: 05/11/24 20:04 Dose: 200 mg Famotidine (Famotidine 20 Mg Tablet) 20 mg PO DAILY [facility] Last Admin: 05/12/24 09:16 Dose: 20 mg Hydrocortisone (Hydrocortisone 2.5 % Rectal Cr 30 Gm Tube) 1 appl [place] DAILY [facility] Last Admin: 05/12/24 09:18 Dose: Not Given Hydroxyzine HCl (Hydroxyzine Hcl 25 Mg Tablet) 25 mg PO Q6H PRN PRN Reason: Anxiety Last Admin: 05/09/24 20:49 Dose: 25 mg Lamotrigine (Lamotrigine 25 Mg Tablet) 50 mg PO BID [facility] Last Admin: 05/12/24 09:16 Dose: 50 mg Levothyroxine Sodium (Levothyroxine Sodium 75 Mcg Tablet) 75 mcg PO DAILY@0600 [facility] Last Admin: 05/12/24 05:36 Dose: 75 mcg Magnesium Hydroxide (Milk Of Magnesia 30 Ml Oral.Susp) 30 ml PO BID PRN PRN Reason: Constipation Last Admin: 05/11/24 09:13 Dose: 30 ml Nicotine Polacrilex (Nicotine Polacrilex 2 Mg Gum) 2 mg BUCCAL Q2H PRN PRN Reason: Nicotine Cravings Olanzapine (Olanzapine 5 Mg Tablet) 5 mg PO Q4H PRN PRN Reason: Psychosis Last Admin: 05/09/24 10:24 Dose: 5 mg Polyethylene Glycol (Polyethylene Glycol 3350 17 Gm Powd.Pack) 17 gm PO DAILY PRN PRN Reason: Constipation Last Admin: 04/18/24 00:24 Dose: 17 gm Polyethylene Glycol (Polyethylene Glycol 3350 17 Gm Powd.Pack) 17 gm PO DAILY [facility] Last Admin: 05/12/24 09:18 Dose: Not Given Risperidone (Risperidone 3 Mg Tablet) 6 mg PO BID [facility] Last Admin: 05/12/24 09:15 Dose: 6 mg Senna (Sennosides 8.6 Mg Tablet) 8.6 mg PO DAILY [facility] Last Admin: 05/12/24 09:16 Dose: 8.6 mg Trazodone HCl (Trazodone Hcl 50 Mg Tablet) 50 mg PO BEDTIME MRX1 PRN PRN Reason: Insomnia Last Admin: 05/09/24 20:48 Dose: 50 mg Allergies Allergies Allergy/AdvReac Type Severity Reaction Status Date / Time trifluoperazine Allergy Unknown Verified 03/11/24 14:16 [From Stelazine] Assessment & Plan Assessment & Plan (1) Schizophrenia: Status: Acute Code(s): F20.9 - Schizophrenia, unspecified (2) Diverticulosis: Status: Chronic Code(s): K57.90 - Diverticulosis of intestine, part unspecified, without perforation or abscess without bleeding Plan Patient is a 73-year-old female with a PMH significant for HTN, post op VTE 2 years ago, hypothyroidism, and mood disorder who was admitted to [facility] after eloping from [facility] and walking into traffic on purpose. Patient apparently believes a friend is writing a horrible story about and does not want to live after everyone reads the book as she believes everyone will hate her. Hospitalist consult for ECT risk stratification. ECT risk stratification Previously underwent ECT without complications in 1998 Currently no significant medical complaints or PMH EKG from 7 days prior at time of admission negative for ischemia RCRI 0 points, class I risk Will repeat EKG before completing risk stratification Plan 1. Continue Risperdal 6 mg p.o. b.i.d.. 2. Clozaril has been changed to 100 mg p.o. b.i.d. and 200 mg p.o. q.h.s. to avoid over-sedation. 3. So far her psychosis had become stable. 4. ECT was considered but at this point the patient is doing much better. 5. Referral for ACSS team. They assessed her on May 05 and stated that she is not at baseline but it seems that this is now her new baseline. So far she had not been assaultive for grossly disorganized after the medication changes and increase of Clozaril. 6. Family meeting next week to address the possibility of ECT and disposition. 7. Zyprexa 5 mg p.o. q.6 hours PRNs hallucinations. Reason for continued inpatient stay Substantial Risk for: inability to function, rapid decompensation and med/psych decompensation Time Spent With Patient Time: Total time managing care of this patient today __20__ minutes.
[2024-05-12 20:09] VITALS: BP 140/91; PULSE 81; RESP 16; TEMP 2.4; TEMP 36.4; O2SAT 97
[2024-05-12] MEDS: cloZAPine 100 MG TABLET 200 MG PO (20:12)
[2024-05-13] MEDS: Levothyroxine Sodium 75 MCG TABLET PO (06:19)
[2024-05-13 08:00] VITALS: BP 94/59; PULSE 87; RESP 16; TEMP 36.8; O2SAT 96
[2024-05-13] MEDS: risperiDONE 3 MG TABLET 6 MG PO ×2 (08:10→20:43)
[2024-05-13] MEDS: Famotidine 20 MG TABLET PO (08:10)
[2024-05-13] MEDS: Sennosides 8.6 MG TABLET PO (08:11)
[2024-05-13] MEDS: cloZAPine 100 MG TABLET PO ×2 (08:11→13:44)
[2024-05-13] MEDS: lamoTRIgine 25 MG TABLET 50 MG PO ×2 (08:11→20:43)
[2024-05-13] MEDS: polyethylene glycoL 3350 17 GM POWD.PACK PO (08:11)
[2024-05-13 08:49] LABS: Neut%MD 74.3 %; Neutrophils Absolute Auto 4.6 x10*3/uL (2.0-8.3); WBCANC 6.2 X10*3/uL
--- NOTE | 2024-05-13 14:25 | HO.PSYCHPN ---
Subjective Subjective Date of Service: 05/13/24 Reason For Visit: Psychosis Subjective Notes: Conditional Voluntary Interim History: The nursing staff reported the patient had been isolative suspicious, no issues during the last shift. It was evident that she had thought blocking. On interview the patient reports that her brain is a mess and she wants to have ECT. Today her son who is the affirmed healthcare proxy came in he signed her into ECT. We discussed the case with Anesthesiology and they were in agreement on that. We are going to scheduled for ECT even though that we are already over booked. Mental Status Exam Mental Status Exam Patient Appearance: Appropriate Patient Orientation: Person and Situation Level of Consciousness: Awake and Appropriate Patient Behavior: Guarded and Passive Mood Description: Withdrawn Affect Description: Constricted Patient Cognition Impaired: Yes Ability to Follow Directions: Good Speech Pattern: Clear Hallucinations: Auditory Delusions: Paranoid Ideation and Ideas of Reference Thought Process: Distracted and Slowed Thinking Thought Content: positive for [place] and positive for Poverty of Content Judgement: Fair Diagnostics Vital Signs (24Hr): Vital Signs - 24 hr 05/12/24 20:09 05/13/24 08:00 Temperature 36.4 F L 98.2 F Pulse Rate 81 87 Respiratory Rate 16 16 Blood Pressure 140/91 H 94/59 L Pulse Oximetry 97 96 Oxygen Delivery Method Room Air Room Air BMI result Body Mass Index 24.9 Labs 04/05/24 15:38 04/05/24 15:38 Labs: Laboratory Results - last 48 hr 05/13/24 08:34 Absolute Neuts (auto) 4.6 Imaging Radiology Impressions: ITS Impressions Head CT 03/18/24 09:42 IMPRESSION: 1. No evidence of acute intracranial hemorrhage or edematous territorial infarction. 2. Mild to moderate underlying microangiopathy. 3. Arachnoid cyst in the right middle cranial fossa. Electronically signed by: Mino Arriaga DO 03/18/2024 06:26 PM EST RP Head CT 03/19/24 01:36 IMPRESSION: 1. Left frontal scalp soft tissue swelling. 2. No acute intracranial process seen. 3. Stable right middle cranial fossa arachnoid cyst. Electronically signed by: Andreas Olsen MD 03/19/2024 02:08 AM EST RP Head CT 04/05/24 16:20 IMPRESSION: 1. No acute intracranial hemorrhage or mass effect. 2. Stable right middle cranial fossa arachnoid cyst. Electronically signed by: Getachew Arana MD 04/05/2024 05:15 PM EST RP KUB X-Ray 04/16/24 13:57 IMPRESSION: Nonobstructive bowel gas pattern. Large colonic and rectal fecal material. Electronically signed by: Chencho Ugalde MD 04/16/2024 02:13 PM EST RP Medications Medications Current Medications Acetaminophen (Acetaminophen 325 Mg Tablet) 650 mg PO Q6H PRN PRN Reason: Headache/Pain Mild Scale (1-3) Last Admin: 05/10/24 09:15 Dose: 650 mg Al Hydroxide/Mg Hydroxide (Magnesium Hydrox/Alum Hydrox 30 Ml Oral.Susp) 30 ml PO Q6H PRN PRN Reason: Heartburn/Nausea Clozapine (Clozapine 100 Mg Tablet) 100 mg PO DAILY [facility] Last Admin: 05/13/24 08:11 Dose: 100 mg Clozapine (Clozapine 100 Mg Tablet) 100 mg PO DAILY@1230 [facility] Last Admin: 05/13/24 13:44 Dose: 100 mg Clozapine (Clozapine 100 Mg Tablet) 200 mg PO BEDTIME [facility] Last Admin: 05/12/24 20:12 Dose: 200 mg Famotidine (Famotidine 20 Mg Tablet) 20 mg PO DAILY [facility] Last Admin: 05/13/24 08:10 Dose: 20 mg Hydrocortisone (Hydrocortisone 2.5 % Rectal Cr 30 Gm Tube) 1 appl [place] DAILY [facility] Last Admin: 05/13/24 08:11 Dose: Not Given Hydroxyzine HCl (Hydroxyzine Hcl 25 Mg Tablet) 25 mg PO Q6H PRN PRN Reason: Anxiety Last Admin: 05/09/24 20:49 Dose: 25 mg Lamotrigine (Lamotrigine 25 Mg Tablet) 50 mg PO BID [facility] Last Admin: 05/13/24 08:11 Dose: 50 mg Levothyroxine Sodium (Levothyroxine Sodium 75 Mcg Tablet) 75 mcg PO DAILY@0600 [facility] Last Admin: 05/13/24 06:19 Dose: 75 mcg Magnesium Hydroxide (Milk Of Magnesia 30 Ml Oral.Susp) 30 ml PO BID PRN PRN Reason: Constipation Last Admin: 05/11/24 09:13 Dose: 30 ml Nicotine Polacrilex (Nicotine Polacrilex 2 Mg Gum) 2 mg BUCCAL Q2H PRN PRN Reason: Nicotine Cravings Olanzapine (Olanzapine 5 Mg Tablet) 5 mg PO Q4H PRN PRN Reason: Psychosis Last Admin: 05/09/24 10:24 Dose: 5 mg Polyethylene Glycol (Polyethylene Glycol 3350 17 Gm Powd.Pack) 17 gm PO DAILY PRN PRN Reason: Constipation Last Admin: 04/18/24 00:24 Dose: 17 gm Polyethylene Glycol (Polyethylene Glycol 3350 17 Gm Powd.Pack) 17 gm PO DAILY [facility] Last Admin: 05/13/24 08:11 Dose: 17 gm Risperidone (Risperidone 3 Mg Tablet) 6 mg PO BID [facility] Last Admin: 05/13/24 08:10 Dose: 6 mg Senna (Sennosides 8.6 Mg Tablet) 8.6 mg PO DAILY [facility] Last Admin: 05/13/24 08:11 Dose: 8.6 mg Trazodone HCl (Trazodone Hcl 50 Mg Tablet) 50 mg PO BEDTIME MRX1 PRN PRN Reason: Insomnia Last Admin: 05/09/24 20:48 Dose: 50 mg Allergies Allergies Allergy/AdvReac Type Severity Reaction Status Date / Time trifluoperazine Allergy Unknown Verified 03/11/24 14:16 [From Stelazine] Assessment & Plan Assessment & Plan (1) Schizophrenia: Status: Acute Code(s): F20.9 - Schizophrenia, unspecified (2) Diverticulosis: Status: Chronic Code(s): K57.90 - Diverticulosis of intestine, part unspecified, without perforation or abscess without bleeding Plan Patient is a 73-year-old female with a PMH significant for HTN, post op VTE 2 years ago, hypothyroidism, and mood disorder who was admitted to [facility] after eloping from [facility] and walking into traffic on purpose. Patient apparently believes a friend is writing a horrible story about and does not want to live after everyone reads the book as she believes everyone will hate her. Hospitalist consult for ECT risk stratification. ECT risk stratification Previously underwent ECT without complications in 1998 Currently no significant medical complaints or PMH EKG from 7 days prior at time of admission negative for ischemia RCRI 0 points, class I risk Will repeat EKG before completing risk stratification Plan 1. Continue Risperdal 6 mg p.o. b.i.d.. 2. Clozaril has been changed to 100 mg p.o. b.i.d. and 200 mg p.o. q.h.s. to avoid over-sedation. 3. So far her psychosis had become stable. 4. ECT was considered and on May 13 the patient request this procedure since she reported she is feeling worse. We will try to schedule her ECT as soon as possible. 5. Referral for ACSS team. They assessed her on May 05 and stated that she is not at baseline but it seems that this is now her new baseline. So far she had not been assaultive for grossly disorganized after the medication changes and increase of Clozaril. 6. Family meeting next week to address the possibility of ECT and disposition. On May 13 her son who is the affirmed healthcare proxy signed herself in to ECT. 7. Zyprexa 5 mg p.o. q.6 hours PRNs hallucinations. Reason for continued inpatient stay Substantial Risk for: inability to function, rapid decompensation and med/psych decompensation Time Spent With Patient Time: Total time managing care of this patient today __20__ minutes.
[2024-05-13] MEDS: Acetaminophen 325 MG TABLET 650 MG PO (14:41)
[2024-05-13 20:00] VITALS: BP 132/78; PULSE 76; RESP 16; TEMP 36.6; O2SAT 99
[2024-05-13] MEDS: cloZAPine 100 MG TABLET 200 MG PO (20:43)
[2024-05-13] MEDS: traZODone HCL 50 MG TABLET PO (20:44)
[2024-05-14] MEDS: Levothyroxine Sodium 75 MCG TABLET PO (06:01)
[2024-05-14 07:00] VITALS: BMI 24.8
[2024-05-14 09:12] VITALS: BP 117/48; PULSE 86; RESP 18; TEMP 36.5; O2SAT 99
[2024-05-14] MEDS: Milk of Magnesia 30 ML ORAL.SUSP PO (09:14)
[2024-05-14] MEDS: risperiDONE 3 MG TABLET 6 MG PO ×2 (09:15→20:05)
[2024-05-14] MEDS: Sennosides 8.6 MG TABLET PO (09:15)
[2024-05-14] MEDS: lamoTRIgine 25 MG TABLET 50 MG PO ×2 (09:15→20:05)
[2024-05-14] MEDS: cloZAPine 100 MG TABLET PO ×2 (09:16→13:04)
[2024-05-14] MEDS: Famotidine 20 MG TABLET PO (09:16)
[2024-05-14] MEDS: Acetaminophen 325 MG TABLET 650 MG PO (09:19)
[2024-05-14] MEDS: polyethylene glycoL 3350 17 GM POWD.PACK PO (09:42)
--- NOTE | 2024-05-14 16:07 | HO.PSYCHPN ---
Subjective Subjective Date of Service: 05/14/24 Reason For Visit: Psychosis Subjective Notes: Conditional Voluntary Healthcare Proxy: Yes Interim History: The nursing staff reported no changes in her mental status, withdrawn isolative. On interview the patient reports that she wants to have ECT. Yesterday her son signed all the paperwork for ECT. Mental Status Exam Mental Status Exam Patient Appearance: Appropriate Patient Orientation: Person and Situation Level of Consciousness: Awake and Appropriate Patient Behavior: Guarded and Passive Mood Description: Withdrawn Affect Description: Constricted Patient Cognition Impaired: Yes Ability to Follow Directions: Good Speech Pattern: Clear Hallucinations: Auditory and Visual Delusions: Paranoid Ideation and Ideas of Reference Thought Process: Distracted and Slowed Thinking Thought Content: positive for Kenneth and positive for Poverty of Content Judgement: Fair Diagnostics Vital Signs (24Hr): Vital Signs - 24 hr 05/13/24 20:00 05/14/24 09:12 Temperature 97.9 F 97.7 F Pulse Rate 76 86 Respiratory Rate 16 18 Blood Pressure 132/78 117/48 L Pulse Oximetry 99 99 Oxygen Delivery Method Room Air Room Air BMI result Body Mass Index 24.8 Labs 04/05/24 15:38 04/05/24 15:38 Labs: Laboratory Results - last 48 hr 05/13/24 08:34 Absolute Neuts (auto) 4.6 Imaging Radiology Impressions: ITS Impressions Head CT 03/18/24 09:42 IMPRESSION: 1. No evidence of acute intracranial hemorrhage or edematous territorial infarction. 2. Mild to moderate underlying microangiopathy. 3. Arachnoid cyst in the right middle cranial fossa. Electronically signed by: Mino Arriaga DO 03/18/2024 06:26 PM EST RP Head CT 03/19/24 01:36 IMPRESSION: 1. Left frontal scalp soft tissue swelling. 2. No acute intracranial process seen. 3. Stable right middle cranial fossa arachnoid cyst. Electronically signed by: Andreas Olsen MD 03/19/2024 02:08 AM EST RP Head CT 04/05/24 16:20 IMPRESSION: 1. No acute intracranial hemorrhage or mass effect. 2. Stable right middle cranial fossa arachnoid cyst. Electronically signed by: Getachew Arana MD 04/05/2024 05:15 PM EST RP KUB X-Ray 12/26/24 13:57 IMPRESSION: Nonobstructive bowel gas pattern. Large colonic and rectal fecal material. Electronically signed by: Chencho Ugalde MD 04/16/2024 02:13 PM [facility] Medications Medications Current Medications Acetaminophen (Acetaminophen 325 Mg Tablet) 650 mg PO Q6H PRN PRN Reason: Headache/Pain Mild Scale (1-3) Last Admin: 05/14/24 09:19 Dose: 650 mg Al Hydroxide/Mg Hydroxide (Magnesium Hydrox/Alum Hydrox 30 Ml Oral.Susp) 30 ml PO Q6H PRN PRN Reason: Heartburn/Nausea Clozapine (Clozapine 100 Mg Tablet) 100 mg PO DAILY [facility] Last Admin: 05/14/24 09:16 Dose: 100 mg Clozapine (Clozapine 100 Mg Tablet) 100 mg PO DAILY@1230 [facility] Last Admin: 05/14/24 13:04 Dose: 100 mg Clozapine (Clozapine 100 Mg Tablet) 200 mg PO BEDTIME [facility] Last Admin: 05/13/24 20:43 Dose: 200 mg Famotidine (Famotidine 20 Mg Tablet) 20 mg PO DAILY [facility] Last Admin: 05/14/24 09:16 Dose: 20 mg Hydrocortisone (Hydrocortisone 2.5 % Rectal Cr 30 Gm Tube) 1 appl AL DAILY [facility] Last Admin: 05/14/24 13:03 Dose: Not Given Hydroxyzine HCl (Hydroxyzine Hcl 25 Mg Tablet) 25 mg PO Q6H PRN PRN Reason: Anxiety Last Admin: 05/09/24 20:49 Dose: 25 mg Lamotrigine (Lamotrigine 25 Mg Tablet) 50 mg PO BID [facility] Last Admin: 05/14/24 09:15 Dose: 50 mg Levothyroxine Sodium (Levothyroxine Sodium 75 Mcg Tablet) 75 mcg PO DAILY@0600 [facility] Last Admin: 05/14/24 06:01 Dose: 75 mcg Magnesium Hydroxide (Milk Of Magnesia 30 Ml Oral.Susp) 30 ml PO BID PRN PRN Reason: Constipation Last Admin: 05/14/24 09:14 Dose: 30 ml Nicotine Polacrilex (Nicotine Polacrilex 2 Mg Gum) 2 mg BUCCAL Q2H PRN PRN Reason: Nicotine Cravings Olanzapine (Olanzapine 5 Mg Tablet) 5 mg PO Q4H PRN PRN Reason: Psychosis Last Admin: 05/09/24 10:24 Dose: 5 mg Polyethylene Glycol (Polyethylene Glycol 3350 17 Gm Powd.Pack) 17 gm PO DAILY PRN PRN Reason: Constipation Last Admin: 04/18/24 00:24 Dose: 17 gm Polyethylene Glycol (Polyethylene Glycol 3350 17 Gm Powd.Pack) 17 gm PO DAILY [facility] Last Admin: 05/14/24 09:42 Dose: 17 gm Risperidone (Risperidone 3 Mg Tablet) 6 mg PO BID [facility] Last Admin: 05/14/24 09:15 Dose: 6 mg Senna (Sennosides 8.6 Mg Tablet) 8.6 mg PO DAILY [facility] Last Admin: 05/14/24 09:15 Dose: 8.6 mg Trazodone HCl (Trazodone Hcl 50 Mg Tablet) 50 mg PO BEDTIME MRX1 PRN PRN Reason: Insomnia Last Admin: 05/13/24 20:44 Dose: 50 mg Allergies Allergies Allergy/AdvReac Type Severity Reaction Status Date / Time trifluoperazine Allergy Unknown Verified 03/11/24 14:16 [From Stelazine] Assessment & Plan Assessment & Plan (1) Schizophrenia: Status: Acute Code(s): F20.9 - Schizophrenia, unspecified (2) Diverticulosis: Status: Chronic Code(s): K57.90 - Diverticulosis of intestine, part unspecified, without perforation or abscess without bleeding Plan Patient is a 73-year-old female with a PMH significant for HTN, post op VTE 2 years ago, hypothyroidism, and mood disorder who was admitted to [facility] after eloping from [facility] and walking into traffic on purpose. Patient apparently believes a friend is writing a horrible story about and does not want to live after everyone reads the book as she believes everyone will hate her. Hospitalist consult for ECT risk stratification. ECT risk stratification Previously underwent ECT without complications in 1998 Currently no significant medical complaints or PMH EKG from 7 days prior at time of admission negative for ischemia RCRI 0 points, class I risk Will repeat EKG before completing risk stratification Plan 1. Continue Risperdal 6 mg p.o. b.i.d.. 2. Clozaril has been changed to 100 mg p.o. b.i.d. and 200 mg p.o. q.h.s. to avoid over-sedation. 3. So far her psychosis had become stable. 4. ECT was considered and on May 13 the patient request this procedure since she reported she is feeling worse. We will try to schedule her ECT as soon as possible. 5. Referral for [facility] team. They assessed her on May 05 and stated that she is not at baseline but it seems that this is now her new baseline. So far she had not been assaultive for grossly disorganized after the medication changes and increase of Clozaril. 6. Family meeting next week to address the possibility of ECT and disposition. On May 13 her son who is the affirmed healthcare proxy signed herself in to ECT. 7. Zyprexa 5 mg p.o. q.6 hours PRNs hallucinations. Reason for continued inpatient stay Substantial Risk for: inability to function, rapid decompensation and med/psych decompensation Time Spent With Patient Time: Total time managing care of this patient today __20__ minutes.
[2024-05-14 20:00] VITALS: BP 126/82; PULSE 81; RESP 16; TEMP 36.2; O2SAT 99
[2024-05-14] MEDS: cloZAPine 100 MG TABLET 200 MG PO (20:05)
[2024-05-15] VITALS (9 sets, daily range): BP systolic 110–159; BP diastolic 67–97; PULSE 59–85; RESP 16–18; TEMP 35.7–36.8; O2SAT 96–100
[2024-05-15] MEDS: Levothyroxine Sodium 75 MCG TABLET PO (05:21)
--- NOTE | 2024-05-15 12:34 | MHC.SHP ---
Pre-Procedural Eval Section A - 24 Hr Update-Section A only Date of Service: 05/15/24 Changes since office visit: No Cold of Flu in the past 2 weeks, No New Medical Problems, No Changes in Medication and No Patient answered all questions The patient has been examined within 24 hours of the surgical procedure. The History & Physical has been completed within 30 days and I have reviewed it.: Yes Section B - Complete if H&P > 30 days Chief Complaint: Psychosis Details of Present Illness: depression Allergies: Allergies Allergy/AdvReac Type Severity Reaction Status Date / Time trifluoperazine Allergy Unknown Verified 03/11/24 14:16 [From Adrian] Plan Diagnosis/Plan: Unchanged I have reviewed the history and physical and performed a pertinent physical examination on my patient. No changes have occurred unless specified. Time Spent With Patient Time: Total time managing care of this patient today ____ minutes.
--- NOTE | 2024-05-15 12:35 | HO.ECTPROC ---
ECT Procedure Note Diagnosis/Treatment Date of Service: 05/15/24 Diagnosis: Schizoaffective Disorder Current Treatment Number: 1 Treatment: Series Interval Clinical Notes: says has been thinking strange things... reports not overall depressed reports memory loss last time she got ECT (20 years ago) Time: Total time managing care of this patient today ____ minutes. ECT Settings Device: THYMATRON DGx Electrode Placement: Right Unilateral Program/Pulse Width: 0.25 Energy Percent: 100 Seizure Duration By EEG (in seconds): 83 By Motor Observation (in seconds): 28 Medications Administration General Anesthetic: Etomidate (12) Muscle Relaxant: Succinylcholine (80) Ancillary Medications Anti-emetics: Zofran - Pre ECT (4) Miscillaneous Medications: Propofol (30mg to break seizure) Airway Management Airway Management: Bag Mask Ventilation Treatment Recommendations Electrode Placement: Bitemporal Program/Pulse Width: 0.25 Energy Percent: 80 Notes: pt had strong seizure that needed Propofol 30mg to break Consider lowering Energy to 80% (or lower; pt received 100% for this first ECT) Pt Tolerated Procedure w/o Issue: Yes
--- NOTE | 2024-05-15 14:19 | HO.ANESPROP2 ---
HPI - Anesthesia Eval Consult details Narrative: 74 yo female patient fir ECT PMFSH Active Problems Active Problems: All Active Problems Arachnoid cyst (Acute) Diverticulosis (Chronic) Pre-op evaluation (Acute) Schizophrenia (Acute) Suicidal ideation (Acute) Major Depression ? ECTs in the 90s Past Medical History Medical History Diverticulosis Schizophrenia CKD (chronic kidney disease) Hyperlipidemia Type 2 diabetes mellitus Hypothyroidism HTN (hypertension) GERD (gastroesophageal reflux disease) Mood disorder Functional capacity: independent ambulation Family History Family history of problems with anesthesia: No Surgical History History of Problems with Anesthesia: No Social History Social History Household Members: None Household Members Other:: Lives at [facility] Housing: Assisted Living Facility Do you presently have visiting nurse or other home services: Yes Alcohol intake: current Comment: on 5 min checks Patient Tobacco Use Status: Former Tobacco user Tobacco use type: Cigarette Cigarette Packs Per Day: 3 Cigarettes Per Day: 60.0 Years Smoked: 16 Smoked in Last 30 Days: No Patient Interested in Nicotine Replacement: No Second Hand Smoke Exposure: No Use of substances other than those prescribed or required for medical reasons: No Currently Displaying Signs/Symptoms of Drug Intoxication Withdrawal: No Have you been hit, kicked, punched, or otherwise hurt by someone within the past year? If so, by whom?: No Do you feel safe in your current relationship?: No Current Relationship Is there a partner from a previous relationship who is making you feel unsafe now?: No Are you made to feel afraid or neglected: Yes (Pt reports she is afraid of the person writing the book about her.) Advance Directives: No Advance Directives Information Provided: Yes Do you have thoughts of harming others: None Do you have a plan to hurt others: No Plan Recently lost weight without trying: Unsure Nutrition Risks: No Nutritional Risk Patient : No : No Poor oral hygiene: No service: No Sexual orientation: Straight/Heterosexual Meds Allergies Allergy/AdvReac Type Severity Reaction Status Date / Time trifluoperazine Allergy Unknown Verified 03/11/24 14:16 [From Stelazine] Active Medications: Current Medications Acetaminophen (Acetaminophen 325 Mg Tablet) 650 mg PO Q6H PRN PRN Reason: Headache/Pain Mild Scale (1-3) Last Admin: 05/14/24 09:19 Dose: 650 mg Al Hydroxide/Mg Hydroxide (Magnesium Hydrox/Alum Hydrox 30 Ml Oral.Susp) 30 ml PO Q6H PRN PRN Reason: Heartburn/Nausea Clozapine (Clozapine 100 Mg Tablet) 100 mg PO DAILY [facility] Last Admin: 05/15/24 14:10 Dose: Not Given Clozapine (Clozapine 100 Mg Tablet) 100 mg PO DAILY@1230 [facility] Last Admin: 05/14/24 13:04 Dose: 100 mg Clozapine (Clozapine 100 Mg Tablet) 200 mg PO BEDTIME [facility] Last Admin: 05/14/24 20:05 Dose: 200 mg Famotidine (Famotidine 20 Mg Tablet) 20 mg PO DAILY [facility] Last Admin: 05/15/24 14:11 Dose: Not Given Hydrocortisone (Hydrocortisone 2.5 % Rectal Cr 30 Gm Tube) 1 appl IA DAILY [facility] Last Admin: 05/15/24 14:11 Dose: Not Given Hydroxyzine HCl (Hydroxyzine Hcl 25 Mg Tablet) 25 mg PO Q6H PRN PRN Reason: Anxiety Last Admin: 05/09/24 20:49 Dose: 25 mg Lamotrigine (Lamotrigine 25 Mg Tablet) 50 mg PO BID [facility] Last Admin: 05/15/24 14:11 Dose: Not Given Levothyroxine Sodium (Levothyroxine Sodium 75 Mcg Tablet) 75 mcg PO DAILY@0600 [facility] Last Admin: 05/15/24 05:21 Dose: 75 mcg Magnesium Hydroxide (Milk Of Magnesia 30 Ml Oral.Susp) 30 ml PO BID PRN PRN Reason: Constipation Last Admin: 05/14/24 09:14 Dose: 30 ml Nicotine Polacrilex (Nicotine Polacrilex 2 Mg Gum) 2 mg BUCCAL Q2H PRN PRN Reason: Nicotine Cravings Olanzapine (Olanzapine 5 Mg Tablet) 5 mg PO Q4H PRN PRN Reason: Psychosis Last Admin: 05/09/24 10:24 Dose: 5 mg Polyethylene Glycol (Polyethylene Glycol 3350 17 Gm Powd.Pack) 17 gm PO DAILY PRN PRN Reason: Constipation Last Admin: 04/18/24 00:24 Dose: 17 gm Polyethylene Glycol (Polyethylene Glycol 3350 17 Gm Powd.Pack) 17 gm PO DAILY [facility] Last Admin: 05/15/24 14:11 Dose: Not Given Risperidone (Risperidone 3 Mg Tablet) 6 mg PO BID [facility] Last Admin: 05/15/24 14:11 Dose: Not Given Senna (Sennosides 8.6 Mg Tablet) 8.6 mg PO DAILY [facility] Last Admin: 05/15/24 14:12 Dose: Not Given Trazodone HCl (Trazodone Hcl 50 Mg Tablet) 50 mg PO BEDTIME MRX1 PRN PRN Reason: Insomnia Last Admin: 05/13/24 20:44 Dose: 50 mg Home Medications ?Medication ?Instructions ?Recorded ?Confirmed ?Last Taken ?Type clozapine 100 mg tablet 100 mg PO DAILY 03/11/24 03/11/24 03/11/24 History clozapine 100 mg tablet 300 mg PO BEDTIME 03/11/24 03/11/24 03/10/24 History famotidine 20 mg tablet 20 mg PO DAILY 03/11/24 03/11/24 03/11/24 History lamotrigine 25 mg tablet 50 mg PO BID 03/11/24 03/11/24 03/11/24 History levothyroxine 75 mcg tablet 75 mcg PO DAILY 03/11/24 03/11/24 03/11/24 History risperidone 2 mg tablet 6 mg PO BID 03/11/24 03/11/24 03/11/24 History sennosides 8.6 mg tablet (senna) 8.6 mg PO DAILY PRN Constipation 03/11/24 03/11/24 Unknown History Exam Height,Weight and Vital Signs: Height 5 ft 6 in Weight 69.581 kg Last Vital Signs Temp 97.8 F 05/15/24 12:20 Pulse 78 05/15/24 12:20 Resp 16 05/15/24 12:20 BP 154/93 H 05/15/24 12:20 Pulse Ox 96 05/15/24 12:20 O2 Del Method Room Air 05/15/24 12:20 Pertinent Lab Results Pertinent Lab Results: Laboratory Tests 03/11/24 03/11/24 03/12/24 11:07 13:25 13:15 WBC 7.8 RBC 3.77 L Hgb 11.6 L Hct 34.5 L MCV 91.5 MCH 30.8 MCHC 33.6 RDW 14.8 Plt Count 205 MPV 10.3 Immature Gran % (Auto) 0.4 Neut % (Auto) 80.2 H Lymph % (Auto) 9.8 L [place] % (Auto) 8.6 Eos % (Auto) 0.5 Baso % (Auto) 0.5 Lymph # (Auto) 0.8 L [place] # (Auto) 0.7 Eos # (Auto) 0.0 Baso # (Auto) 0.0 Abs Immat Gran (auto) 0.03 Absolute Neuts (auto) 6.2 Absolute Nucleated RBC 0.000 Nucleated RBC % (auto) 0.0 Sodium 141 Potassium 4.2 Chloride 107 Carbon Dioxide 24 Anion Gap 14 BUN 18 H Creatinine 1.47 H Estim Creat Clear Calc 36.2 Estimated GFR 35 POC Glucose 118 H Random Glucose 119 H Fasting Glucose Estimat Average Glucose Hemoglobin A1c % Calcium 9.8 Magnesium Total Bilirubin 0.3 AST 20 ALT 16 Alkaline Phosphatase 90 Total Protein 6.0 L Albumin 4.0 Triglycerides Cholesterol LDL Cholesterol, Calc HDL Cholesterol Vitamin B12 Folate TSH Urine Color Yellow Urine Appearance Clear Urine pH 6.5 Ur Specific [place] <= 1.005 Urine Protein Negative Urine Glucose (UA) Negative Urine Ketones Negative Urine Blood Negative Urine Nitrite Negative Ur Leukocyte Esterase Small (1+) H Urine RBC 0-2 Urine WBC 0-5 Ur Squamous Epith Cells 0-2 Urine Bacteria None Seen Hyaline Casts 0-2 Urine Opiates Screen Not Detected Ur Buprenorphine Scrn Not Detected Ur Oxycodone Screen Not Detected Urine Methadone Screen Not Detected Urine Fentanyl Screen Not Detected Ur Barbiturates Screen Not Detected Ur Phencyclidine Scrn Not Detected Ur Amphetamines Screen Not Detected U Benzodiazepines Scrn Not Detected Urine Cocaine Screen Not Detected U Marijuana (THC) Screen Not Detected Ethyl Alcohol < 10 03/13/24 03/18/24 03/25/24 08:18 07:57 08:12 WBC RBC Hgb Hct MCV MCH MCHC RDW Plt Count MPV Immature Gran % (Auto) Neut % (Auto) Lymph % (Auto) [place] % (Auto) Eos % (Auto) Baso % (Auto) Lymph # (Auto) [place] # (Auto) Eos # (Auto) Baso # (Auto) Abs Immat Gran (auto) Absolute Neuts (auto) 4.2 3.3 Absolute Nucleated RBC Nucleated RBC % (auto) Sodium 142 Potassium 4.0 Chloride 108 Carbon Dioxide 28 Anion Gap 10 L BUN 23 H Creatinine 1.46 H Estim Creat Clear Calc 36.5 Estimated GFR 35 POC Glucose Random Glucose Fasting Glucose 114 H Estimat Average Glucose 114 Hemoglobin A1c % 5.6 Calcium 9.8 Magnesium 2.3 Total Bilirubin 0.4 AST 16 ALT 10 Alkaline Phosphatase 85 Total Protein 5.8 L Albumin 4.0 Triglycerides 133 Cholesterol 218 H LDL Cholesterol, Calc 144 H HDL Cholesterol 48 Vitamin B12 443 Folate 10.9 TSH 3.25 Urine Color Urine Appearance Urine pH Ur Specific [place] Urine Protein Urine Glucose (UA) Urine Ketones Urine Blood Urine Nitrite Ur Leukocyte Esterase Urine RBC Urine WBC Ur Squamous Epith Cells Urine Bacteria Hyaline Casts Urine Opiates Screen Ur Buprenorphine Scrn Ur Oxycodone Screen Urine Methadone Screen Urine Fentanyl Screen Ur Barbiturates Screen Ur Phencyclidine Scrn Ur Amphetamines Screen U Benzodiazepines Scrn Urine Cocaine Screen U Marijuana (THC) Screen Ethyl Alcohol 04/03/24 04/05/24 04/05/24 07:40 15:20 15:38 WBC 6.6 RBC 3.94 L Hgb 12.0 Hct 35.8 L MCV 90.9 MCH 30.5 MCHC 33.5 RDW 13.7 Plt Count 208 MPV 10.5 Immature Gran % (Auto) Neut % (Auto) Lymph % (Auto) [place] % (Auto) Eos % (Auto) Baso % (Auto) Lymph # (Auto) [place] # (Auto) Eos # (Auto) Baso # (Auto) Abs Immat Gran (auto) Absolute Neuts (auto) 5.0 Absolute Nucleated RBC 0.000 Nucleated RBC % (auto) 0.0 Sodium 144 Potassium 3.5 Chloride 106 Carbon Dioxide 25 Anion Gap 17 BUN 17 H Creatinine 1.50 H Estim Creat Clear Calc 37.2 Estimated GFR 34 POC Glucose 100 Random Glucose 74 Fasting Glucose Estimat Average Glucose Hemoglobin A1c % Calcium 9.8 Magnesium Total Bilirubin 0.4 AST 21 ALT 8 Alkaline Phosphatase 127 H Total Protein 5.8 L Albumin 3.9 Triglycerides Cholesterol LDL Cholesterol, Calc HDL Cholesterol Vitamin B12 Folate TSH Urine Color Urine Appearance Urine pH Ur Specific [place] Urine Protein Urine Glucose (UA) Urine Ketones Urine Blood Urine Nitrite Ur Leukocyte Esterase Urine RBC Urine WBC Ur Squamous Epith Cells Urine Bacteria Hyaline Casts Urine Opiates Screen Ur Buprenorphine Scrn Ur Oxycodone Screen Urine Methadone Screen Urine Fentanyl Screen Ur Barbiturates Screen Ur Phencyclidine Scrn Ur Amphetamines Screen U Benzodiazepines Scrn Urine Cocaine Screen U Marijuana (THC) Screen Ethyl Alcohol 04/12/24 04/15/24 04/22/24 08:30 08:26 07:29 WBC RBC Hgb Hct MCV MCH MCHC RDW Plt Count MPV Immature Gran % (Auto) Neut % (Auto) Lymph % (Auto) [place] % (Auto) Eos % (Auto) Baso % (Auto) Lymph # (Auto) [place] # (Auto) Eos # (Auto) Baso # (Auto) Abs Immat Gran (auto) Absolute Neuts (auto) 3.7 6.0 3.4 Absolute Nucleated RBC Nucleated RBC % (auto) Sodium Potassium Chloride Carbon Dioxide Anion Gap BUN Creatinine Estim Creat Clear Calc Estimated GFR POC Glucose Random Glucose Fasting Glucose Estimat Average Glucose Hemoglobin A1c % Calcium Magnesium Total Bilirubin AST ALT Alkaline Phosphatase Total Protein Albumin Triglycerides Cholesterol LDL Cholesterol, Calc HDL Cholesterol Vitamin B12 Folate TSH Urine Color Urine Appearance Urine pH Ur Specific [place] Urine Protein Urine Glucose (UA) Urine Ketones Urine Blood Urine Nitrite Ur Leukocyte Esterase Urine RBC Urine WBC Ur Squamous Epith Cells Urine Bacteria Hyaline Casts Urine Opiates Screen Ur Buprenorphine Scrn Ur Oxycodone Screen Urine Methadone Screen Urine Fentanyl Screen Ur Barbiturates Screen Ur Phencyclidine Scrn Ur Amphetamines Screen U Benzodiazepines Scrn Urine Cocaine Screen U Marijuana (THC) Screen Ethyl Alcohol 04/29/24 05/06/24 05/13/24 08:53 08:22 08:34 WBC RBC Hgb Hct MCV MCH MCHC RDW Plt Count MPV Immature Gran % (Auto) Neut % (Auto) Lymph % (Auto) [place] % (Auto) Eos % (Auto) Baso % (Auto) Lymph # (Auto) [place] # (Auto) Eos # (Auto) Baso # (Auto) Abs Immat Gran (auto) Absolute Neuts (auto) 6.0 3.7 4.6 Absolute Nucleated RBC Nucleated RBC % (auto) Sodium Potassium Chloride Carbon Dioxide Anion Gap BUN Creatinine Estim Creat Clear Calc Estimated GFR POC Glucose Random Glucose Fasting Glucose Estimat Average Glucose Hemoglobin A1c % Calcium Magnesium Total Bilirubin AST ALT Alkaline Phosphatase Total Protein Albumin Triglycerides Cholesterol LDL Cholesterol, Calc HDL Cholesterol Vitamin B12 Folate TSH Urine Color Urine Appearance Urine pH Ur Specific [place] Urine Protein Urine Glucose (UA) Urine Ketones Urine Blood Urine Nitrite Ur Leukocyte Esterase Urine RBC Urine WBC Ur Squamous Epith Cells Urine Bacteria Hyaline Casts Urine Opiates Screen Ur Buprenorphine Scrn Ur Oxycodone Screen Urine Methadone Screen Urine Fentanyl Screen Ur Barbiturates Screen Ur Phencyclidine Scrn Ur Amphetamines Screen U Benzodiazepines Scrn Urine Cocaine Screen U Marijuana (THC) Screen Ethyl Alcohol Airway Mallampati Class: III (Small mouth) TM Dist: >3cm Neck ROM: Full Loose/Missing/Broken Teeth: Yes (Many missing. Poor dentition- ground down. Broken tooth with filling top keft) Heart: RRR Lungs: CTAB Assessment and Plan Assessment Anesthesia Assessment: Anesthesia Plan Discussed and Chart Reviewed Final Anesthetic Review Family History of Problems with Anesthesia: No History of Problems with Anesthesia: No NPO: Yes ASA Class: III Final Preanesthetic Review: No Changes in Pt Med Stat, Meds/Allgs Chart Reviewed, Consent Obtained/Reviewed and Anes Risks/Benef Reviewed Patient Risk: Intermediate Procedure Risk: Intermediate Assessment/Block/Sedation in SS: Assess/Block/Sedation-SS Anesthetic Plan Anesthetic Plan: GA Disposition: Standard PACU
--- NOTE | 2024-05-15 16:16 | HO.PSYCHPN ---
Subjective Subjective Date of Service: 05/15/24 Reason For Visit: Psychosis Interim History: Pt is NPO, pending her first ECT. She is awake, alert, resting in bed. Denies current concerns, approving of ECT, no questions at this time Denies pain, engaged in conversation Medication Compliance: Yes Side effects from medications: No Attending Groups: Intermittent Review of Systems Acute medical concerns: No Review of Systems Review of Systems Pt denies this a.m. Mental Status Exam Mental Status Exam Patient Appearance: Appropriate Patient Orientation: Person and Situation Level of Consciousness: Awake and Appropriate Patient Behavior: Cooperative and Passive Mood Description: Constricted Affect Description: Constricted Patient Cognition Impaired: Yes Ability to Follow Directions: Good Speech Pattern: Clear Thought Process: Distracted and Slowed Thinking Thought Content: positive for Mcrae Helena Judgement: Fair Diagnostics Vital Signs (24Hr): Vital Signs - 24 hr 05/14/24 20:00 05/15/24 07:14 05/15/24 08:16 Temperature 97.1 F 96.2 F L 98.3 F Pulse Rate 81 80 80 Respiratory Rate 16 16 18 Blood Pressure 126/82 126/67 110/67 Pulse Oximetry 99 98 98 Oxygen Delivery Method Room Air Room Air Oxygen Flow Rate 05/15/24 12:20 05/15/24 14:41 05/15/24 14:46 Temperature 97.8 F 97.1 F Pulse Rate 78 59 74 Respiratory Rate 16 16 16 Blood Pressure 154/93 H 157/86 H 159/97 H Pulse Oximetry 96 100 99 Oxygen Delivery Method Room Air Nasal Cannula with ETCO2 Nasal Cannula with ETCO2 Oxygen Flow Rate 2 2 05/15/24 14:51 05/15/24 14:56 05/15/24 15:11 Temperature 97.0 F Pulse Rate 85 82 83 Respiratory Rate 16 17 16 Blood Pressure 155/75 H 157/79 H 152/80 H Pulse Oximetry 98 96 100 Oxygen Delivery Method Nasal Cannula with ETCO2 Room Air Room Air Oxygen Flow Rate 2 05/15/24 15:50 Temperature 96.9 F Pulse Rate 80 Respiratory Rate 18 Blood Pressure 152/93 H Pulse Oximetry 97 Oxygen Delivery Method Room Air Oxygen Flow Rate BMI result Body Mass Index 24.8 Labs 04/05/24 15:38 04/05/24 15:38 Imaging Radiology Impressions: ITS Impressions Head CT 03/18/24 09:42 IMPRESSION: 1. No evidence of acute intracranial hemorrhage or edematous territorial infarction. 2. Mild to moderate underlying microangiopathy. 3. Arachnoid cyst in the right middle cranial fossa. Electronically signed by: Mino Arriaga DO 03/18/2024 06:26 PM EST RP Head CT 03/19/24 01:36 IMPRESSION: 1. Left frontal scalp soft tissue swelling. 2. No acute intracranial process seen. 3. Stable right middle cranial fossa arachnoid cyst. Electronically signed by: Andreas Olsen MD 03/19/2024 02:08 AM EST RP Head CT 04/05/24 16:20 IMPRESSION: 1. No acute intracranial hemorrhage or mass effect. 2. Stable right middle cranial fossa arachnoid cyst. Electronically signed by: Getachew Arana MD 04/05/2024 05:15 PM EST RP KUB X-Ray 04/16/24 13:57 IMPRESSION: Nonobstructive bowel gas pattern. Large colonic and rectal fecal material. Electronically signed by: Chencho Ugalde MD 04/16/2024 02:13 PM EST RP Medications Medications Current Medications Acetaminophen (Acetaminophen 325 Mg Tablet) 650 mg PO Q6H PRN PRN Reason: Headache/Pain Mild Scale (1-3) Last Admin: 05/14/24 09:19 Dose: 650 mg Al Hydroxide/Mg Hydroxide (Magnesium Hydrox/Alum Hydrox 30 Ml Oral.Susp) 30 ml PO Q6H PRN PRN Reason: Heartburn/Nausea Clozapine (Clozapine 100 Mg Tablet) 100 mg PO DAILY [facility] Last Admin: 05/15/24 14:10 Dose: Not Given Clozapine (Clozapine 100 Mg Tablet) 100 mg PO DAILY@1230 [facility] Last Admin: 05/15/24 16:10 Dose: Not Given Clozapine (Clozapine 100 Mg Tablet) 200 mg PO BEDTIME [facility] Last Admin: 05/14/24 20:05 Dose: 200 mg Famotidine (Famotidine 20 Mg Tablet) 20 mg PO DAILY [facility] Last Admin: 05/15/24 14:11 Dose: Not Given Hydrocortisone (Hydrocortisone 2.5 % Rectal Cr 30 Gm Tube) 1 appl DE DAILY [facility] Last Admin: 05/15/24 14:11 Dose: Not Given Hydroxyzine HCl (Hydroxyzine Hcl 25 Mg Tablet) 25 mg PO Q6H PRN PRN Reason: Anxiety Last Admin: 05/09/24 20:49 Dose: 25 mg Lamotrigine (Lamotrigine 25 Mg Tablet) 50 mg PO BID [facility] Last Admin: 05/15/24 14:11 Dose: Not Given Levothyroxine Sodium (Levothyroxine Sodium 75 Mcg Tablet) 75 mcg PO DAILY@0600 [facility] Last Admin: 05/15/24 05:21 Dose: 75 mcg Magnesium Hydroxide (Milk Of Magnesia 30 Ml Oral.Susp) 30 ml PO BID PRN PRN Reason: Constipation Last Admin: 05/14/24 09:14 Dose: 30 ml Nicotine Polacrilex (Nicotine Polacrilex 2 Mg Gum) 2 mg BUCCAL Q2H PRN PRN Reason: Nicotine Cravings Olanzapine (Olanzapine 5 Mg Tablet) 5 mg PO Q4H PRN PRN Reason: Psychosis Last Admin: 05/09/24 10:24 Dose: 5 mg Polyethylene Glycol (Polyethylene Glycol 3350 17 Gm Powd.Pack) 17 gm PO DAILY PRN PRN Reason: Constipation Last Admin: 04/18/24 00:24 Dose: 17 gm Polyethylene Glycol (Polyethylene Glycol 3350 17 Gm Powd.Pack) 17 gm PO DAILY [facility] Last Admin: 05/15/24 14:11 Dose: Not Given Risperidone (Risperidone 3 Mg Tablet) 6 mg PO BID [facility] Last Admin: 05/15/24 14:11 Dose: Not Given Senna (Sennosides 8.6 Mg Tablet) 8.6 mg PO DAILY [facility] Last Admin: 05/15/24 14:12 Dose: Not Given Trazodone HCl (Trazodone Hcl 50 Mg Tablet) 50 mg PO BEDTIME MRX1 PRN PRN Reason: Insomnia Last Admin: 05/13/24 20:44 Dose: 50 mg Allergies Allergies Allergy/AdvReac Type Severity Reaction Status Date / Time trifluoperazine Allergy Unknown Verified 03/11/24 14:16 [From Stelazine] Assessment & Plan Assessment & Plan (1) Schizophrenia: Status: Acute Code(s): F20.9 - Schizophrenia, unspecified (2) Diverticulosis: Status: Chronic Code(s): K57.90 - Diverticulosis of intestine, part unspecified, without perforation or abscess without bleeding Plan Patient is a 73-year-old female with a PMH significant for HTN, post op VTE 2 years ago, hypothyroidism, and mood disorder who was admitted to [facility] after eloping from [facility] and walking into traffic on purpose. Patient apparently believes a friend is writing a horrible story about and does not want to live after everyone reads the book as she believes everyone will hate her. Hospitalist consult for ECT risk stratification. ECT risk stratification Previously underwent ECT without complications in 1998 Currently no significant medical complaints or PMH EKG from 7 days prior at time of admission negative for ischemia RCRI 0 points, class I risk Will repeat EKG before completing risk stratification Plan 1. Continue Risperdal 6 mg p.o. b.i.d.. 2. Clozaril has been changed to 100 mg p.o. b.i.d. and 200 mg p.o. q.h.s. to avoid over-sedation. 3. So far her psychosis had become stable. 4. ECT was considered and on May 13 the patient request this procedure since she reported she is feeling worse. We will try to schedule her ECT as soon as possible. 5. Referral for [facility] team. They assessed her on May 05 and stated that she is not at baseline but it seems that this is now her new baseline. So far she had not been assaultive for grossly disorganized after the medication changes and increase of Clozaril. 6. Family meeting next week to address the possibility of ECT and disposition. On May 13 her son who is the affirmed healthcare proxy signed herself in to ECT. 7. Zyprexa 5 mg p.o. q.6 hours PRNs hallucinations. 05/15/24: ECT #1 scheduled for this afternoon Continue current plan of care Reason for continued inpatient stay Substantial Risk for: rapid decompensation Time Spent With Patient Time: Total time managing care of this patient today ____ minutes.
[2024-05-15] MEDS: cloZAPine 100 MG TABLET 200 MG PO (20:21)
[2024-05-15] MEDS: risperiDONE 3 MG TABLET 6 MG PO (20:21)
[2024-05-15] MEDS: traZODone HCL 50 MG TABLET PO (20:22)
[2024-05-15] MEDS: lamoTRIgine 25 MG TABLET 50 MG PO (20:22)
[2024-05-16] MEDS: Levothyroxine Sodium 75 MCG TABLET PO (06:28)
[2024-05-16 08:00] VITALS: BP 90/60; PULSE 83; RESP 18; TEMP 36.3; O2SAT 97
[2024-05-16] MEDS: lamoTRIgine 25 MG TABLET 50 MG PO ×2 (08:44→20:44)
[2024-05-16] MEDS: Famotidine 20 MG TABLET PO (08:44)
[2024-05-16] MEDS: cloZAPine 100 MG TABLET PO ×2 (08:44→12:29)
[2024-05-16] MEDS: Sennosides 8.6 MG TABLET PO (08:44)
[2024-05-16] MEDS: risperiDONE 3 MG TABLET 6 MG PO ×2 (08:44→20:45)
[2024-05-16] MEDS: polyethylene glycoL 3350 17 GM POWD.PACK PO (08:45)
--- NOTE | 2024-05-16 10:36 | P.PNPSI_ITS ---
Subjective Subjective Date of Service: 05/16/24 Reason For Visit: Psychosis Interim History: Patient seen. Says she is having evil thoughts . Denies any intent of harm to self or others. Says she is hearing voices telling her to hurt others but adamantly denies she has any intent. Says she didn't get ECT because they thought I was too crazy . She is not remembering getting her first ECT yesterday. She is awake, alert, resting in bed. Denies SI. Review of Systems Review of Systems Pt denies this a.m. Yes all other systems are reviewed and are negative Constitutional: Denies chills, Denies fatigue, Denies fever(s) and Denies headache(s) Eyes: Denies change in vision Denies headache(s), Denies nasal congestion, Denies nasal discharge and Denies sore throat Cardiovascular: Denies chest pain, Denies rapid heart rate, Denies leg edema, Denies lightheadedness and Denies dyspnea Respiratory: Denies chest congestion, Denies cough, Denies dyspnea and Denies wheezing Gastrointestinal: Denies melena, Denies hematochezia, Denies coffee ground emesis, Reports constipation, Denies diarrhea, Denies nausea, Denies vomiting and Denies hematemesis Musculoskeletal: Denies back pain, Denies myalgias, Denies numbness and Denies tingling Skin/Breast: Denies rash Denies confusion, Denies headache(s), Denies lack of coordination, Denies focal weakness, Denies numbness, Denies seizure-like activity and Denies tingling Psychiatric: Reports as per HPI and Denies confusion Endocrine: Denies fatigue Hematologic/Lymphatic: Denies easy bleeding and Denies easy bruising Allergic/Immunologic: Denies wheezing Mental Status Exam Mental Status Exam Narrative: Pt is alert and oriented; behavior is cooperative, friendly and calm; patient is not in distress; dressed in casual attire doing word search puzzle with room mate. Mood is described as better and affect congruent, more calm; eye contact appropriate; Speech is normal rate, volume and prosody and not pressured; no psychomotor agitation/retardation present; thought process is organized and goal directed; Thought content is on tx; no delusional thinking expressed; no SI; no HI. Denies hallucinations. Patients insight and judgment improving Patient Appearance: Appropriate Patient Orientation: Person and Situation Level of Consciousness: Awake and Appropriate Patient Behavior: Cooperative and Passive Behavior Comments: Patient calm and cooperative often in her room Mood Description: Constricted Affect Description: Constricted Patient Cognition Impaired: Yes Ability to Follow Directions: Good Speech Pattern: Clear Memory Description: Correction Impaired Diagnostics Vital Signs (24Hr): Vital Signs - 24 hr 05/15/24 12:20 05/15/24 14:41 05/15/24 14:46 Temperature 97.8 F 97.1 F Pulse Rate 78 59 74 Respiratory Rate 16 16 16 Blood Pressure 154/93 H 157/86 H 159/97 H Pulse Oximetry 96 100 99 Oxygen Delivery Method Room Air Nasal Cannula with ETCO2 Nasal Cannula with ETCO2 Oxygen Flow Rate 2 2 05/15/24 14:51 05/15/24 14:56 05/15/24 15:11 Temperature 97.0 F Pulse Rate 85 82 83 Respiratory Rate 16 17 16 Blood Pressure 155/75 H 157/79 H 152/80 H Pulse Oximetry 98 96 100 Oxygen Delivery Method Nasal Cannula with ETCO2 Room Air Room Air Oxygen Flow Rate 2 05/15/24 15:50 05/16/24 08:00 Temperature 96.9 F 97.4 F Pulse Rate 80 83 Respiratory Rate 18 18 Blood Pressure 152/93 H 90/60 Pulse Oximetry 97 97 Oxygen Delivery Method Room Air Room Air Oxygen Flow Rate BMI result Body Mass Index 24.8 Labs 04/05/24 15:38 04/05/24 15:38 Imaging Radiology Impressions: ITS Impressions Head CT 03/18/24 09:42 IMPRESSION: 1. No evidence of acute intracranial hemorrhage or edematous territorial infarction. 2. Mild to moderate underlying microangiopathy. 3. Arachnoid cyst in the right middle cranial fossa. Electronically signed by: Mino Arriaga DO 03/18/2024 06:26 PM EST RP Head CT 03/19/24 01:36 IMPRESSION: 1. Left frontal scalp soft tissue swelling. 2. No acute intracranial process seen. 3. Stable right middle cranial fossa arachnoid cyst. Electronically signed by: Andreas Olsen MD 03/19/2024 02:08 AM EST RP Head CT 04/05/24 16:20 IMPRESSION: 1. No acute intracranial hemorrhage or mass effect. 2. Stable right middle cranial fossa arachnoid cyst. Electronically signed by: Getachew Arana MD 04/05/2024 05:15 PM EST RP KUB X-Ray 04/16/24 13:57 IMPRESSION: Nonobstructive bowel gas pattern. Large colonic and rectal fecal material. Electronically signed by: Chencho Ugalde MD 04/16/2024 02:13 PM EST RP Medications Medications Current Medications Acetaminophen (Acetaminophen 325 Mg Tablet) 650 mg PO Q6H PRN PRN Reason: Headache/Pain Mild Scale (1-3) Last Admin: 05/14/24 09:19 Dose: 650 mg Al Hydroxide/Mg Hydroxide (Magnesium Hydrox/Alum Hydrox 30 Ml Oral.Susp) 30 ml PO Q6H PRN PRN Reason: Heartburn/Nausea Clozapine (Clozapine 100 Mg Tablet) 100 mg PO DAILY [facility] Last Admin: 05/16/24 08:44 Dose: 100 mg Clozapine (Clozapine 100 Mg Tablet) 100 mg PO DAILY@1230 [facility] Last Admin: 05/15/24 16:10 Dose: Not Given Clozapine (Clozapine 100 Mg Tablet) 200 mg PO BEDTIME [facility] Last Admin: 05/15/24 20:21 Dose: 200 mg Famotidine (Famotidine 20 Mg Tablet) 20 mg PO DAILY [facility] Last Admin: 05/16/24 08:44 Dose: 20 mg Hydrocortisone (Hydrocortisone 2.5 % Rectal Cr 30 Gm Tube) 1 appl ID DAILY [facility] Last Admin: 05/16/24 08:46 Dose: Not Given Hydroxyzine HCl (Hydroxyzine Hcl 25 Mg Tablet) 25 mg PO Q6H PRN PRN Reason: Anxiety Last Admin: 05/09/24 20:49 Dose: 25 mg Lamotrigine (Lamotrigine 25 Mg Tablet) 50 mg PO BID [facility] Last Admin: 05/16/24 08:44 Dose: 50 mg Levothyroxine Sodium (Levothyroxine Sodium 75 Mcg Tablet) 75 mcg PO DAILY@0600 [facility] Last Admin: 05/16/24 06:28 Dose: 75 mcg Magnesium Hydroxide (Milk Of Magnesia 30 Ml Oral.Susp) 30 ml PO BID PRN PRN Reason: Constipation Last Admin: 05/14/24 09:14 Dose: 30 ml Nicotine Polacrilex (Nicotine Polacrilex 2 Mg Gum) 2 mg BUCCAL Q2H PRN PRN Reason: Nicotine Cravings Olanzapine (Olanzapine 5 Mg Tablet) 5 mg PO Q4H PRN PRN Reason: Psychosis Last Admin: 05/09/24 10:24 Dose: 5 mg Polyethylene Glycol (Polyethylene Glycol 3350 17 Gm Powd.Pack) 17 gm PO DAILY PRN PRN Reason: Constipation Last Admin: 04/18/24 00:24 Dose: 17 gm Polyethylene Glycol (Polyethylene Glycol 3350 17 Gm Powd.Pack) 17 gm PO DAILY [facility] Last Admin: 05/16/24 08:45 Dose: 17 gm Risperidone (Risperidone 3 Mg Tablet) 6 mg PO BID [facility] Last Admin: 05/16/24 08:44 Dose: 6 mg Senna (Sennosides 8.6 Mg Tablet) 8.6 mg PO DAILY [facility] Last Admin: 05/16/24 08:44 Dose: 8.6 mg Trazodone HCl (Trazodone Hcl 50 Mg Tablet) 50 mg PO BEDTIME MRX1 PRN PRN Reason: Insomnia Last Admin: 05/15/24 20:22 Dose: 50 mg Allergies Allergies Allergy/AdvReac Type Severity Reaction Status Date / Time trifluoperazine Allergy Unknown Verified 03/11/24 14:16 [From Stelazine] Assessment & Plan Assessment & Plan (1) Schizophrenia: Status: Acute Code(s): F20.9 - Schizophrenia, unspecified (2) Diverticulosis: Status: Chronic Code(s): K57.90 - Diverticulosis of intestine, part unspecified, without perforation or abscess without bleeding Plan Patient is a 73-year-old female with a PMH significant for HTN, post op VTE 2 years ago, hypothyroidism, and mood disorder who was admitted to [facility] after eloping from [facility] [place] and walking into traffic on purpose. Patient apparently believes a friend is writing a horrible story about and does not want to live after everyone reads the book as she believes everyone will hate her. Hospitalist consult for ECT risk stratification. ECT risk stratification Previously underwent ECT without complications in 1998 Currently no significant medical complaints or PMH EKG from 7 days prior at time of admission negative for ischemia RCRI 0 points, class I risk Will repeat EKG before completing risk stratification Plan 1. Continue Risperdal 6 mg p.o. b.i.d.. 2. Clozaril has been changed to 100 mg p.o. b.i.d. and 200 mg p.o. q.h.s. to avoid over-sedation. 3. So far her psychosis had become stable. 4. ECT was considered and on May 13 the patient request this procedure since she reported she is feeling worse. We will try to schedule her ECT as soon as possible. 5. Referral for [facility] team. They assessed her on May 05 and stated that she is not at baseline but it seems that this is now her new baseline. So far she had not been assaultive for grossly disorganized after the medication changes and increase of Clozaril. 6. Family meeting next week to address the possibility of ECT and disposition. On May 13 her son who is the affirmed healthcare proxy signed herself in to ECT. 7. Zyprexa 5 mg p.o. q.6 hours PRNs hallucinations. 05/15/24: ECT #1 scheduled for this afternoon Continue current plan of care 05/16: Continue current management and treatment plan. Reason for continued inpatient stay Substantial Risk for: inability to function and rapid decompensation Time Spent With Patient Time: Total time managing care of this patient today ____ minutes.
[2024-05-16] MEDS: cloZAPine 100 MG TABLET 200 MG PO (20:45)
[2024-05-16] MEDS: traZODone HCL 50 MG TABLET PO (20:45)
[2024-05-16] MEDS: hydrOXYzine HCL 25 MG TABLET PO (20:45)
[2024-05-17] MEDS: Levothyroxine Sodium 75 MCG TABLET PO (06:01)
[2024-05-17 08:00] VITALS: RESP 18
[2024-05-17] MEDS: cloZAPine 100 MG TABLET PO ×2 (08:58→13:12)
[2024-05-17] MEDS: lamoTRIgine 25 MG TABLET 50 MG PO ×2 (08:58→20:18)
[2024-05-17] MEDS: Famotidine 20 MG TABLET PO (08:59)
[2024-05-17] MEDS: risperiDONE 3 MG TABLET 6 MG PO ×2 (08:59→20:18)
[2024-05-17] MEDS: Sennosides 8.6 MG TABLET PO (08:59)
[2024-05-17] MEDS: polyethylene glycoL 3350 17 GM POWD.PACK PO (09:16)
--- NOTE | 2024-05-17 10:23 | P.PNPSI_ITS ---
Subjective Subjective Date of Service: 05/17/24 Reason For Visit: Psychosis Interim History: Patient seen. More engaged today. Ate today 100% of meals. More interactive. I am having less crazy thoughts. Still doesn't believe she had ECT on Saturday. I was too crazy and they didn't do it. Less evil thoughts. Denies any intent of harm to self or others. Says she is hearing voices but less than yesterday. telling her to hurt others but adamantly denies she has any intent. Denies SI. Review of Systems Review of Systems Pt denies this a.m. Yes all other systems are reviewed and are negative Constitutional: Denies chills, Denies fatigue, Denies fever(s) and Denies headache(s) Eyes: Denies change in vision Denies headache(s), Denies nasal congestion, Denies nasal discharge and Denies sore throat Cardiovascular: Denies chest pain, Denies rapid heart rate, Denies leg edema, Denies lightheadedness and Denies dyspnea Respiratory: Denies chest congestion, Denies cough, Denies dyspnea and Denies wheezing Gastrointestinal: Denies melena, Denies hematochezia, Denies coffee ground emesis, Reports constipation, Denies diarrhea, Denies nausea, Denies vomiting and Denies hematemesis Musculoskeletal: Denies back pain, Denies myalgias, Denies numbness and Denies tingling Skin/Breast: Denies rash Denies confusion, Denies headache(s), Denies lack of coordination, Denies focal weakness, Denies numbness, Denies seizure-like activity and Denies tingling Psychiatric: Reports as per HPI and Denies confusion Endocrine: Denies fatigue Hematologic/Lymphatic: Denies easy bleeding and Denies easy bruising Allergic/Immunologic: Denies wheezing Mental Status Exam Mental Status Exam Narrative: Pt is alert and oriented; behavior is cooperative, friendly and calm; patient is not in distress; dressed in casual attire doing word search puzzle with room mate. Mood is described as better and affect congruent, more calm; eye contact appropriate; Speech is normal rate, volume and prosody and not pressured; no psychomotor agitation/retardation present; thought process is organized and goal directed; Thought content is on tx; no delusional thinking expressed; no SI; no HI. Denies hallucinations. Patients insight and judgment improving Patient Appearance: Appropriate Patient Orientation: Person and Situation Level of Consciousness: Awake and Appropriate Patient Behavior: Cooperative and Passive Behavior Comments: Patient calm and cooperative often in her room Mood Description: Constricted Affect Description: Constricted Patient Cognition Impaired: Yes Ability to Follow Directions: Good Speech Pattern: Clear Memory Description: Senior Care Impaired Diagnostics Vital Signs (24Hr): BMI result Body Mass Index 24.8 Labs 04/05/24 15:38 04/05/24 15:38 Imaging Radiology Impressions: ITS Impressions Head CT 03/18/24 09:42 IMPRESSION: 1. No evidence of acute intracranial hemorrhage or edematous territorial infarction. 2. Mild to moderate underlying microangiopathy. 3. Arachnoid cyst in the right middle cranial fossa. Electronically signed by: Mino Arriaga DO 03/18/2024 06:26 PM EST RP Head CT 03/19/24 01:36 IMPRESSION: 1. Left frontal scalp soft tissue swelling. 2. No acute intracranial process seen. 3. Stable right middle cranial fossa arachnoid cyst. Electronically signed by: Andreas Olsen MD 03/19/2024 02:08 AM EST RP Head CT 04/05/24 16:20 IMPRESSION: 1. No acute intracranial hemorrhage or mass effect. 2. Stable right middle cranial fossa arachnoid cyst. Electronically signed by: Getachew Arana MD 04/05/2024 05:15 PM EST RP KUB X-Ray 04/16/24 13:57 IMPRESSION: Nonobstructive bowel gas pattern. Large colonic and rectal fecal material. Electronically signed by: Chencho Ugalde MD 04/16/2024 02:13 PM EST RP Medications Medications Current Medications Acetaminophen (Acetaminophen 325 Mg Tablet) 650 mg PO Q6H PRN PRN Reason: Headache/Pain Mild Scale (1-3) Last Admin: 05/14/24 09:19 Dose: 650 mg Al Hydroxide/Mg Hydroxide (Magnesium Hydrox/Alum Hydrox 30 Ml Oral.Susp) 30 ml PO Q6H PRN PRN Reason: Heartburn/Nausea Clozapine (Clozapine 100 Mg Tablet) 100 mg PO DAILY [facility] Last Admin: 05/17/24 08:58 Dose: 100 mg Clozapine (Clozapine 100 Mg Tablet) 100 mg PO DAILY@1230 [facility] Last Admin: 05/16/24 12:29 Dose: 100 mg Clozapine (Clozapine 100 Mg Tablet) 200 mg PO BEDTIME [facility] Last Admin: 05/16/24 20:45 Dose: 200 mg Famotidine (Famotidine 20 Mg Tablet) 20 mg PO DAILY [facility] Last Admin: 05/17/24 08:59 Dose: 20 mg Hydrocortisone (Hydrocortisone 2.5 % Rectal Cr 30 Gm Tube) [address] DAILY [facility] Last Admin: 05/17/24 09:16 Dose: Not Given Hydroxyzine HCl (Hydroxyzine Hcl 25 Mg Tablet) 25 mg PO Q6H PRN PRN Reason: Anxiety Last Admin: 05/16/24 20:45 Dose: 25 mg Lamotrigine (Lamotrigine 25 Mg Tablet) 50 mg PO BID [facility] Last Admin: 05/17/24 08:58 Dose: 50 mg Levothyroxine Sodium (Levothyroxine Sodium 75 Mcg Tablet) 75 mcg PO DAILY@0600 [facility] Last Admin: 05/17/24 06:01 Dose: 75 mcg Magnesium Hydroxide (Milk Of Magnesia 30 Ml Oral.Susp) 30 ml PO BID PRN PRN Reason: Constipation Last Admin: 05/14/24 09:14 Dose: 30 ml Nicotine Polacrilex (Nicotine Polacrilex 2 Mg Gum) 2 mg BUCCAL Q2H PRN PRN Reason: Nicotine Cravings Olanzapine (Olanzapine 5 Mg Tablet) 5 mg PO Q4H PRN PRN Reason: Psychosis Last Admin: 05/09/24 10:24 Dose: 5 mg Polyethylene Glycol (Polyethylene Glycol 3350 17 Gm Powd.Pack) 17 gm PO DAILY PRN PRN Reason: Constipation Last Admin: 04/18/24 00:24 Dose: 17 gm Polyethylene Glycol (Polyethylene Glycol 3350 17 Gm Powd.Pack) 17 gm PO DAILY [facility] Last Admin: 05/17/24 09:16 Dose: 17 gm Risperidone (Risperidone 3 Mg Tablet) 6 mg PO BID [facility] Last Admin: 05/17/24 08:59 Dose: 6 mg Senna (Sennosides 8.6 Mg Tablet) 8.6 mg PO DAILY [facility] Last Admin: 05/17/24 08:59 Dose: 8.6 mg Trazodone HCl (Trazodone Hcl 50 Mg Tablet) 50 mg PO BEDTIME MRX1 PRN PRN Reason: Insomnia Last Admin: 05/16/24 20:45 Dose: 50 mg Allergies Allergies Allergy/AdvReac Type Severity Reaction Status Date / Time trifluoperazine Allergy Unknown Verified 03/11/24 14:16 [From Stelazine] Assessment & Plan Assessment & Plan (1) Schizophrenia: Status: Acute Code(s): F20.9 - Schizophrenia, unspecified (2) Diverticulosis: Status: Chronic Code(s): K57.90 - Diverticulosis of intestine, part unspecified, without perforation or abscess without bleeding Plan Patient is a 73-year-old female with a PMH significant for HTN, post op VTE 2 years ago, hypothyroidism, and mood disorder who was admitted to [facility] after eloping from [facility] and walking into traffic on purpose. Patient apparently believes a friend is writing a horrible story about and does not want to live after everyone reads the book as she believes everyone will hate her. Hospitalist consult for ECT risk stratification. ECT risk stratification Previously underwent ECT without complications in 1998 Currently no significant medical complaints or PMH EKG from 7 days prior at time of admission negative for ischemia RCRI 0 points, class I risk Will repeat EKG before completing risk stratification Plan 1. Continue Risperdal 6 mg p.o. b.i.d.. 2. Clozaril has been changed to 100 mg p.o. b.i.d. and 200 mg p.o. q.h.s. to avoid over-sedation. 3. So far her psychosis had become stable. 4. ECT was considered and on May 13 the patient request this procedure since she reported she is feeling worse. We will try to schedule her ECT as soon as possible. 5. Referral for [facility]SS team. They assessed her on May 05 and stated that she is not at baseline but it seems that this is now her new baseline. So far she had not been assaultive for grossly disorganized after the medication changes and increase of Clozaril. 6. Family meeting next week to address the possibility of ECT and disposition. On May 13 her son who is the affirmed healthcare proxy signed herself in to ECT. 7. Zyprexa 5 mg p.o. q.6 hours PRNs hallucinations. 05/15/24: ECT #1 scheduled for this afternoon Continue current plan of care 05/16: Continue current management and treatment plan. 05/17: Continue current management and treatment plan. ECT #2 tomorrow per primary team. Reason for continued inpatient stay Substantial Risk for: inability to function and rapid decompensation Time Spent With Patient Time: Total time managing care of this patient today ____ minutes.
[2024-05-17] MEDS: Acetaminophen 325 MG TABLET 650 MG PO (13:12)
[2024-05-17 20:00] VITALS: RESP 17
[2024-05-17] MEDS: cloZAPine 100 MG TABLET 200 MG PO (20:18)
[2024-05-17] MEDS: traZODone HCL 50 MG TABLET PO (20:55)
[2024-05-18] VITALS (9 sets, daily range): BP systolic 108–170; BP diastolic 66–97; PULSE 78–90; RESP 14–21; TEMP 36.2–36.8; O2SAT 96–99
[2024-05-18] MEDS: lamoTRIgine 25 MG TABLET 50 MG PO ×2 (09:07→20:59)
[2024-05-18] MEDS: Sennosides 8.6 MG TABLET PO (09:07)
[2024-05-18] MEDS: Famotidine 20 MG TABLET PO (09:08)
[2024-05-18] MEDS: risperiDONE 3 MG TABLET 6 MG PO ×2 (09:08→21:00)
[2024-05-18] MEDS: cloZAPine 100 MG TABLET PO ×2 (09:08→12:46)
[2024-05-18] MEDS: Levothyroxine Sodium 75 MCG TABLET PO (09:08)
--- NOTE | 2024-05-18 10:06 | HO.PSYCHPN ---
Subjective Subjective Date of Service: 05/18/24 Reason For Visit: Psychosis Subjective Notes: Conditional Voluntary Interim History: The nursing staff reported the patient had been isolative, complaining of auditory hallucinations with derogatory contempt. She slept 7 hours. On interview, I explained that she is scheduled for ECT today and she still on NPO. She agreed with the plan. Mental Status Exam Mental Status Exam Patient Appearance: Appropriate Patient Orientation: Person and Situation Level of Consciousness: Awake and Appropriate Patient Behavior: Guarded and Passive Mood Description: Withdrawn Affect Description: Constricted Patient Cognition Impaired: Yes Ability to Follow Directions: Good Speech Pattern: Clear Hallucinations: Auditory (Derogatory content) Delusions: Paranoid Ideation and Ideas of Reference Thought Process: Distracted and Slowed Thinking Thought Content: positive for [place] and positive for Poverty of Content Judgement: Poor Diagnostics Vital Signs (24Hr): Vital Signs - 24 hr 05/17/24 20:00 05/18/24 05:34 Temperature 97.2 F Pulse Rate 79 Respiratory Rate 17 15 Blood Pressure 115/69 Pulse Oximetry 97 BMI result Body Mass Index 24.8 Labs 04/05/24 15:38 04/05/24 15:38 Imaging Radiology Impressions: ITS Impressions Head CT 03/18/24 09:42 IMPRESSION: 1. No evidence of acute intracranial hemorrhage or edematous territorial infarction. 2. Mild to moderate underlying microangiopathy. 3. Arachnoid cyst in the right middle cranial fossa. Electronically signed by: Mino Arriaga DO 03/18/2024 06:26 PM EST RP Head CT 03/19/24 01:36 IMPRESSION: 1. Left frontal scalp soft tissue swelling. 2. No acute intracranial process seen. 3. Stable right middle cranial fossa arachnoid cyst. Electronically signed by: Andreas Olsen MD 03/19/2024 02:08 AM EST RP Head CT 04/05/24 16:20 IMPRESSION: 1. No acute intracranial hemorrhage or mass effect. 2. Stable right middle cranial fossa arachnoid cyst. Electronically signed by: Getachew Arana MD 04/05/2024 05:15 PM EST RP KUB X-Ray 04/16/24 13:57 IMPRESSION: Nonobstructive bowel gas pattern. Large colonic and rectal fecal material. Electronically signed by: Chencho Ugalde MD 04/16/2024 02:13 PM [facility] Medications Medications Current Medications Acetaminophen (Acetaminophen 325 Mg Tablet) 650 mg PO Q6H PRN PRN Reason: Headache/Pain Mild Scale (1-3) Last Admin: 05/17/24 13:12 Dose: 650 mg Al Hydroxide/Mg Hydroxide (Magnesium Hydrox/Alum Hydrox 30 Ml Oral.Susp) 30 ml PO Q6H PRN PRN Reason: Heartburn/Nausea Clozapine (Clozapine 100 Mg Tablet) 100 mg PO DAILY [facility] Last Admin: 05/18/24 09:08 Dose: 100 mg Clozapine (Clozapine 100 Mg Tablet) 100 mg PO DAILY@1230 [facility] Last Admin: 05/17/24 13:12 Dose: 100 mg Clozapine (Clozapine 100 Mg Tablet) 200 mg PO BEDTIME [facility] Last Admin: 05/17/24 20:18 Dose: 200 mg Famotidine (Famotidine 20 Mg Tablet) 20 mg PO DAILY [facility] Last Admin: 05/18/24 09:08 Dose: 20 mg Hydrocortisone (Hydrocortisone 2.5 % Rectal Cr 30 Gm Tube) 1 appl MD DAILY [facility] Last Admin: 05/18/24 09:08 Dose: Not Given Hydroxyzine HCl (Hydroxyzine Hcl 25 Mg Tablet) 25 mg PO Q6H PRN PRN Reason: Anxiety Last Admin: 05/16/24 20:45 Dose: 25 mg Lamotrigine (Lamotrigine 25 Mg Tablet) 50 mg PO BID [facility] Last Admin: 05/18/24 09:07 Dose: 50 mg Levothyroxine Sodium (Levothyroxine Sodium 75 Mcg Tablet) 75 mcg PO DAILY@0600 [facility] Last Admin: 05/18/24 09:08 Dose: 75 mcg Magnesium Hydroxide (Milk Of Magnesia 30 Ml Oral.Susp) 30 ml PO BID PRN PRN Reason: Constipation Last Admin: 05/14/24 09:14 Dose: 30 ml Nicotine Polacrilex (Nicotine Polacrilex 2 Mg Gum) 2 mg BUCCAL Q2H PRN PRN Reason: Nicotine Cravings Olanzapine (Olanzapine 5 Mg Tablet) 5 mg PO Q4H PRN PRN Reason: Psychosis Last Admin: 05/09/24 10:24 Dose: 5 mg Polyethylene Glycol (Polyethylene Glycol 3350 17 Gm Powd.Pack) 17 gm PO DAILY PRN PRN Reason: Constipation Last Admin: 04/18/24 00:24 Dose: 17 gm Polyethylene Glycol (Polyethylene Glycol 3350 17 Gm Powd.Pack) 17 gm PO DAILY [facility] Last Admin: 05/18/24 09:08 Dose: Not Given Risperidone (Risperidone 3 Mg Tablet) 6 mg PO BID [facility] Last Admin: 05/18/24 09:08 Dose: 6 mg Senna (Sennosides 8.6 Mg Tablet) 8.6 mg PO DAILY [facility] Last Admin: 05/18/24 09:07 Dose: 8.6 mg Trazodone HCl (Trazodone Hcl 50 Mg Tablet) 50 mg PO BEDTIME MRX1 PRN PRN Reason: Insomnia Last Admin: 05/17/24 20:55 Dose: 50 mg Allergies Allergies Allergy/AdvReac Type Severity Reaction Status Date / Time trifluoperazine Allergy Unknown Verified 03/11/24 14:16 [From Stelazine] Assessment & Plan Assessment & Plan (1) Schizophrenia: Status: Acute Code(s): F20.9 - Schizophrenia, unspecified (2) Diverticulosis: Status: Chronic Code(s): K57.90 - Diverticulosis of intestine, part unspecified, without perforation or abscess without bleeding Plan Patient is a 73-year-old female with a PMH significant for HTN, post op VTE 2 years ago, hypothyroidism, and mood disorder who was admitted to [facility] after eloping from [facility] and walking into traffic on purpose. Patient apparently believes a friend is writing a horrible story about and does not want to live after everyone reads the book as she believes everyone will hate her. Hospitalist consult for ECT risk stratification. ECT risk stratification Previously underwent ECT without complications in 1998 Currently no significant medical complaints or PMH EKG from 7 days prior at time of admission negative for ischemia RCRI 0 points, class I risk Will repeat EKG before completing risk stratification Plan 1. Continue Risperdal 6 mg p.o. b.i.d.. 2. Clozaril has been changed to 100 mg p.o. b.i.d. and 200 mg p.o. q.h.s. to avoid over-sedation. 3. So far her psychosis had become stable. 4. ECT was considered and on May 13 the patient request this procedure since she reported she is feeling worse. We will try to schedule her ECT as soon as possible. 5. Referral for [facility] team. They assessed her on May 05 and stated that she is not at baseline but it seems that this is now her new baseline. So far she had not been assaultive for grossly disorganized after the medication changes and increase of Clozaril. 6. Family meeting next week to address the possibility of ECT and disposition. On May 13 her son who is the affirmed healthcare proxy signed herself in to ECT. 7. Zyprexa 5 mg p.o. q.6 hours PRNs hallucinations. 8. The patient is not at baseline at this moment we will continue with ECT. Reason for continued inpatient stay Substantial Risk for: inability to function, rapid decompensation and med/psych decompensation Time Spent With Patient Time: Total time managing care of this patient today __20__ minutes.
[2024-05-18] MEDS: Acetaminophen 325 MG TABLET 650 MG PO ×2 (12:50→21:52)
--- NOTE | 2024-05-18 13:35 | HO.ANESPROP2 ---
[facility] Active Problems Active Problems: All Active Problems Arachnoid cyst (Acute) Diverticulosis (Chronic) Pre-op evaluation (Acute) Schizophrenia (Acute) Suicidal ideation (Acute) Past Medical History Medical History Diverticulosis Schizophrenia CKD (chronic kidney disease) Hyperlipidemia Type 2 diabetes mellitus Hypothyroidism HTN (hypertension) GERD (gastroesophageal reflux disease) Mood disorder Functional capacity: independent ambulation Family History Family history of problems with anesthesia: No Surgical History History of Problems with Anesthesia: No Social History Social History Household Members: None Household Members Other:: Lives at [facility] Housing: Assisted Living Facility Do you presently have visiting nurse or other home services: Yes Alcohol intake: current Comment: on 5 min checks Patient Tobacco Use Status: Former Tobacco user Tobacco use type: Cigarette Cigarette Packs Per Day: 3 Cigarettes Per Day: 60.0 Years Smoked: 16 Smoked in Last 30 Days: No Patient Interested in Nicotine Replacement: No Second Hand Smoke Exposure: No Use of substances other than those prescribed or required for medical reasons: No Currently Displaying Signs/Symptoms of Drug Intoxication Withdrawal: No Have you been hit, kicked, punched, or otherwise hurt by someone within the past year? If so, by whom?: No Do you feel safe in your current relationship?: No Current Relationship Is there a partner from a previous relationship who is making you feel unsafe now?: No Are you made to feel afraid or neglected: Yes (Pt reports she is afraid of the person writing the book about her.) Advance Directives: No Advance Directives Information Provided: Yes Do you have thoughts of harming others: None Do you have a plan to hurt others: No Plan Recently lost weight without trying: Unsure Nutrition Risks: No Nutritional Risk Patient : No : No Poor oral hygiene: No service: No Sexual orientation: Straight/Heterosexual Meds Allergies Allergy/AdvReac Type Severity Reaction Status Date / Time trifluoperazine Allergy Unknown Verified 03/11/24 14:16 [From Stelazine] Active Medications: Current Medications Acetaminophen (Acetaminophen 325 Mg Tablet) 650 mg PO Q6H PRN PRN Reason: Headache/Pain Mild Scale (1-3) Last Admin: 05/18/24 12:50 Dose: 650 mg Al Hydroxide/Mg Hydroxide (Magnesium Hydrox/Alum Hydrox 30 Ml Oral.Susp) 30 ml PO Q6H PRN PRN Reason: Heartburn/Nausea Clozapine (Clozapine 100 Mg Tablet) 100 mg PO DAILY [facility] Last Admin: 05/18/24 09:08 Dose: 100 mg Clozapine (Clozapine 100 Mg Tablet) 100 mg PO DAILY@1230 [facility] Last Admin: 05/18/24 12:46 Dose: 100 mg Clozapine (Clozapine 100 Mg Tablet) 200 mg PO BEDTIME [facility] Last Admin: 05/17/24 20:18 Dose: 200 mg Famotidine (Famotidine 20 Mg Tablet) 20 mg PO DAILY [facility] Last Admin: 05/18/24 09:08 Dose: 20 mg Hydrocortisone (Hydrocortisone 2.5 % Rectal Cr 30 Gm Tube) 1 appl HI DAILY [facility] Last Admin: 05/18/24 09:08 Dose: Not Given Hydroxyzine HCl (Hydroxyzine Hcl 25 Mg Tablet) 25 mg PO Q6H PRN PRN Reason: Anxiety Last Admin: 05/16/24 20:45 Dose: 25 mg Lamotrigine (Lamotrigine 25 Mg Tablet) 50 mg PO BID [facility] Last Admin: 05/18/24 09:07 Dose: 50 mg Levothyroxine Sodium (Levothyroxine Sodium 75 Mcg Tablet) 75 mcg PO DAILY@0600 [facility] Last Admin: 05/18/24 09:08 Dose: 75 mcg Magnesium Hydroxide (Milk Of Magnesia 30 Ml Oral.Susp) 30 ml PO BID PRN PRN Reason: Constipation Last Admin: 05/14/24 09:14 Dose: 30 ml Nicotine Polacrilex (Nicotine Polacrilex 2 Mg Gum) 2 mg BUCCAL Q2H PRN PRN Reason: Nicotine Cravings Olanzapine (Olanzapine 5 Mg Tablet) 5 mg PO Q4H PRN PRN Reason: Psychosis Last Admin: 05/09/24 10:24 Dose: 5 mg Polyethylene Glycol (Polyethylene Glycol 3350 17 Gm Powd.Pack) 17 gm PO DAILY PRN PRN Reason: Constipation Last Admin: 04/18/24 00:24 Dose: 17 gm Polyethylene Glycol (Polyethylene Glycol 3350 17 Gm Powd.Pack) 17 gm PO DAILY [facility] Last Admin: 05/18/24 09:08 Dose: Not Given Risperidone (Risperidone 3 Mg Tablet) 6 mg PO BID [facility] Last Admin: 05/18/24 09:08 Dose: 6 mg Senna (Sennosides 8.6 Mg Tablet) 8.6 mg PO DAILY [facility] Last Admin: 05/18/24 09:07 Dose: 8.6 mg Trazodone HCl (Trazodone Hcl 50 Mg Tablet) 50 mg PO BEDTIME MRX1 PRN PRN Reason: Insomnia Last Admin: 05/17/24 20:55 Dose: 50 mg Home Medications ?Medication ?Instructions ?Recorded ?Confirmed ?Last Taken ?Type clozapine 100 mg tablet 100 mg PO DAILY 03/11/24 03/11/24 03/11/24 History clozapine 100 mg tablet 300 mg PO BEDTIME 03/11/24 03/11/24 03/10/24 History famotidine 20 mg tablet 20 mg PO DAILY 03/11/24 03/11/24 03/11/24 History lamotrigine 25 mg tablet 50 mg PO BID 03/11/24 03/11/24 03/11/24 History levothyroxine 75 mcg tablet 75 mcg PO DAILY 03/11/24 03/11/24 03/11/24 History risperidone 2 mg tablet 6 mg PO BID 03/11/24 03/11/24 03/11/24 History sennosides 8.6 mg tablet (senna) 8.6 mg PO DAILY PRN Constipation 03/11/24 03/11/24 Unknown History Exam Height,Weight and Vital Signs: Height 5 ft 6 in Weight 69.581 kg Last Vital Signs Temp 97.2 F 05/18/24 05:34 Pulse 79 05/18/24 05:34 Resp 18 05/18/24 08:00 BP 115/69 05/18/24 05:34 Pulse Ox 97 05/18/24 05:34 O2 Del Method Room Air 05/16/24 08:00 O2 Flow Rate 2 05/15/24 14:51 Pertinent Lab Results Pertinent Lab Results: Laboratory Tests 03/11/24 03/11/24 03/12/24 11:07 13:25 13:15 WBC 7.8 RBC 3.77 L Hgb 11.6 L Hct 34.5 L MCV 91.5 MCH 30.8 MCHC 33.6 RDW 14.8 Plt Count 205 MPV 10.3 Immature Gran % (Auto) 0.4 Neut % (Auto) 80.2 H Lymph % (Auto) 9.8 L [place] % (Auto) 8.6 Eos % (Auto) 0.5 Baso % (Auto) 0.5 Lymph # (Auto) 0.8 L [place] # (Auto) 0.7 Eos # (Auto) 0.0 Baso # (Auto) 0.0 Abs Immat Gran (auto) 0.03 Absolute Neuts (auto) 6.2 Absolute Nucleated RBC 0.000 Nucleated RBC % (auto) 0.0 Sodium 141 Potassium 4.2 Chloride 107 Carbon Dioxide 24 Anion Gap 14 BUN 18 H Creatinine 1.47 H Estim Creat Clear Calc 36.2 Estimated GFR 35 POC Glucose 118 H Random Glucose 119 H Fasting Glucose Estimat Average Glucose Hemoglobin A1c % Calcium 9.8 Magnesium Total Bilirubin 0.3 AST 20 ALT 16 Alkaline Phosphatase 90 Total Protein 6.0 L Albumin 4.0 Triglycerides Cholesterol LDL Cholesterol, Calc HDL Cholesterol Vitamin B12 Folate TSH Urine Color Yellow Urine Appearance Clear Urine pH 6.5 Ur Specific [place] <= 1.005 Urine Protein Negative Urine Glucose (UA) Negative Urine Ketones Negative Urine Blood Negative Urine Nitrite Negative Ur Leukocyte Esterase Small (1+) H Urine RBC 0-2 Urine WBC 0-5 Ur Squamous Epith Cells 0-2 Urine Bacteria None Seen Hyaline Casts 0-2 Urine Opiates Screen Not Detected Ur Buprenorphine Scrn Not Detected Ur Oxycodone Screen Not Detected Urine Methadone Screen Not Detected Urine Fentanyl Screen Not Detected Ur Barbiturates Screen Not Detected Ur Phencyclidine Scrn Not Detected Ur Amphetamines Screen Not Detected U Benzodiazepines Scrn Not Detected Urine Cocaine Screen Not Detected U Marijuana (THC) Screen Not Detected Ethyl Alcohol < 10 03/13/24 03/18/24 03/25/24 08:18 07:57 08:12 WBC RBC Hgb Hct MCV MCH MCHC RDW Plt Count MPV Immature Gran % (Auto) Neut % (Auto) Lymph % (Auto) [place] % (Auto) Eos % (Auto) Baso % (Auto) Lymph # (Auto) [place] # (Auto) Eos # (Auto) Baso # (Auto) Abs Immat Gran (auto) Absolute Neuts (auto) 4.2 3.3 Absolute Nucleated RBC Nucleated RBC % (auto) Sodium 142 Potassium 4.0 Chloride 108 Carbon Dioxide 28 Anion Gap 10 L BUN 23 H Creatinine 1.46 H Estim Creat Clear Calc 36.5 Estimated GFR 35 POC Glucose Random Glucose Fasting Glucose 114 H Estimat Average Glucose 114 Hemoglobin A1c % 5.6 Calcium 9.8 Magnesium 2.3 Total Bilirubin 0.4 AST 16 ALT 10 Alkaline Phosphatase 85 Total Protein 5.8 L Albumin 4.0 Triglycerides 133 Cholesterol 218 H LDL Cholesterol, Calc 144 H HDL Cholesterol 48 Vitamin B12 443 Folate 10.9 TSH 3.25 Urine Color Urine Appearance Urine pH Ur Specific [place] Urine Protein Urine Glucose (UA) Urine Ketones Urine Blood Urine Nitrite Ur Leukocyte Esterase Urine RBC Urine WBC Ur Squamous Epith Cells Urine Bacteria Hyaline Casts Urine Opiates Screen Ur Buprenorphine Scrn Ur Oxycodone Screen Urine Methadone Screen Urine Fentanyl Screen Ur Barbiturates Screen Ur Phencyclidine Scrn Ur Amphetamines Screen U Benzodiazepines Scrn Urine Cocaine Screen U Marijuana (THC) Screen Ethyl Alcohol 04/03/24 04/05/24 04/05/24 07:40 15:20 15:38 WBC 6.6 RBC 3.94 L Hgb 12.0 Hct 35.8 L MCV 90.9 MCH 30.5 MCHC 33.5 RDW 13.7 Plt Count 208 MPV 10.5 Immature Gran % (Auto) Neut % (Auto) Lymph % (Auto) [place] % (Auto) Eos % (Auto) Baso % (Auto) Lymph # (Auto) [place] # (Auto) Eos # (Auto) Baso # (Auto) Abs Immat Gran (auto) Absolute Neuts (auto) 5.0 Absolute Nucleated RBC 0.000 Nucleated RBC % (auto) 0.0 Sodium 144 Potassium 3.5 Chloride 106 Carbon Dioxide 25 Anion Gap 17 BUN 17 H Creatinine 1.50 H Estim Creat Clear Calc 37.2 Estimated GFR 34 POC Glucose 100 Random Glucose 74 Fasting Glucose Estimat Average Glucose Hemoglobin A1c % Calcium 9.8 Magnesium Total Bilirubin 0.4 AST 21 ALT 8 Alkaline Phosphatase 127 H Total Protein 5.8 L Albumin 3.9 Triglycerides Cholesterol LDL Cholesterol, Calc HDL Cholesterol Vitamin B12 Folate TSH Urine Color Urine Appearance Urine pH Ur Specific [place] Urine Protein Urine Glucose (UA) Urine Ketones Urine Blood Urine Nitrite Ur Leukocyte Esterase Urine RBC Urine WBC Ur Squamous Epith Cells Urine Bacteria Hyaline Casts Urine Opiates Screen Ur Buprenorphine Scrn Ur Oxycodone Screen Urine Methadone Screen Urine Fentanyl Screen Ur Barbiturates Screen Ur Phencyclidine Scrn Ur Amphetamines Screen U Benzodiazepines Scrn Urine Cocaine Screen U Marijuana (THC) Screen Ethyl Alcohol 04/12/24 04/15/24 04/22/24 08:30 08:26 07:29 WBC RBC Hgb Hct MCV MCH MCHC RDW Plt Count MPV Immature Gran % (Auto) Neut % (Auto) Lymph % (Auto) [place] % (Auto) Eos % (Auto) Baso % (Auto) Lymph # (Auto) [place] # (Auto) Eos # (Auto) Baso # (Auto) Abs Immat Gran (auto) Absolute Neuts (auto) 3.7 6.0 3.4 Absolute Nucleated RBC Nucleated RBC % (auto) Sodium Potassium Chloride Carbon Dioxide Anion Gap BUN Creatinine Estim Creat Clear Calc Estimated GFR POC Glucose Random Glucose Fasting Glucose Estimat Average Glucose Hemoglobin A1c % Calcium Magnesium Total Bilirubin AST ALT Alkaline Phosphatase Total Protein Albumin Triglycerides Cholesterol LDL Cholesterol, Calc HDL Cholesterol Vitamin B12 Folate TSH Urine Color Urine Appearance Urine pH Ur Specific [place] Urine Protein Urine Glucose (UA) Urine Ketones Urine Blood Urine Nitrite Ur Leukocyte Esterase Urine RBC Urine WBC Ur Squamous Epith Cells Urine Bacteria Hyaline Casts Urine Opiates Screen Ur Buprenorphine Scrn Ur Oxycodone Screen Urine Methadone Screen Urine Fentanyl Screen Ur Barbiturates Screen Ur Phencyclidine Scrn Ur Amphetamines Screen U Benzodiazepines Scrn Urine Cocaine Screen U Marijuana (THC) Screen Ethyl Alcohol 04/29/24 05/06/24 05/13/24 08:53 08:22 08:34 WBC RBC Hgb Hct MCV MCH MCHC RDW Plt Count MPV Immature Gran % (Auto) Neut % (Auto) Lymph % (Auto) [place] % (Auto) Eos % (Auto) Baso % (Auto) Lymph # (Auto) [place] # (Auto) Eos # (Auto) Baso # (Auto) Abs Immat Gran (auto) Absolute Neuts (auto) 6.0 3.7 4.6 Absolute Nucleated RBC Nucleated RBC % (auto) Sodium Potassium Chloride Carbon Dioxide Anion Gap BUN Creatinine Estim Creat Clear Calc Estimated GFR POC Glucose Random Glucose Fasting Glucose Estimat Average Glucose Hemoglobin A1c % Calcium Magnesium Total Bilirubin AST ALT Alkaline Phosphatase Total Protein Albumin Triglycerides Cholesterol LDL Cholesterol, Calc HDL Cholesterol Vitamin B12 Folate TSH Urine Color Urine Appearance Urine pH Ur Specific [place] Urine Protein Urine Glucose (UA) Urine Ketones Urine Blood Urine Nitrite Ur Leukocyte Esterase Urine RBC Urine WBC Ur Squamous Epith Cells Urine Bacteria Hyaline Casts Urine Opiates Screen Ur Buprenorphine Scrn Ur Oxycodone Screen Urine Methadone Screen Urine Fentanyl Screen Ur Barbiturates Screen Ur Phencyclidine Scrn Ur Amphetamines Screen U Benzodiazepines Scrn Urine Cocaine Screen U Marijuana (THC) Screen Ethyl Alcohol Airway Mallampati Class: II (poor denition, missing multiple, denies anything loose) TM Dist: >3cm Neck ROM: Full Partial: Upper Heart: rrr Lungs: cta Assessment and Plan Assessment Anesthesia Assessment: Anesthesia Plan Discussed and Chart Reviewed Final Anesthetic Review Family History of Problems with Anesthesia: No History of Problems with Anesthesia: No NPO: Yes ASA Class: III Final Preanesthetic Review: No Changes in Pt Med Stat, Meds/Allgs Chart Reviewed and Consent Obtained/Reviewed Patient Risk: Intermediate Procedure Risk: Intermediate Anesthetic Plan Anesthetic Plan: GA Disposition: Standard PACU
--- NOTE | 2024-05-18 14:13 | MHC.SHP ---
Pre-Procedural Eval Section A - 24 Hr Update-Section A only Date of Service: 05/18/24 The patient is an INPATIENT: Yes Changes since office visit: No Cold of Flu in the past 2 weeks, No New Medical Problems, No Changes in Medication and No Patient answered all questions The patient has been examined within 24 hours of the surgical procedure. The History & Physical has been completed within 30 days and I have reviewed it.: Yes Section B - Complete if H&P > 30 days Chief Complaint: Psychosis Allergies: Allergies Allergy/AdvReac Type Severity Reaction Status Date / Time trifluoperazine Allergy Unknown Verified 03/11/24 14:16 [From Adrian] Plan I have reviewed the history and physical and performed a pertinent physical examination on my patient. No changes have occurred unless specified. Time Spent With Patient Time: Total time managing care of this patient today ____ minutes.
--- NOTE | 2024-05-18 14:28 | HO.ECTPROC ---
ECT Procedure Note Diagnosis/Treatment Date of Service: 05/18/24 Diagnosis: Schizoaffective Disorder Previous ECT Date: 05/15/24 Current Treatment Number: 2 Treatment: Series Interval Clinical Notes: The patient can not remember the previous ECT. On her 1st ECT she had a very long seizure that needed to be stopped by medications. Today we lowered to 0.5 70% and she had a regular seizure below 60 seconds. She woke up slightly confused but easily redirectable. Time: Total time managing care of this patient today __20__ minutes. ECT Settings Device: THYMATRON DGx Electrode Placement: Bifrontal Program/Pulse Width: 0.25 Energy Percent: 70 Seizure Duration By EEG (in seconds): 59 By Motor Observation (in seconds): 18 Medications Administration General Anesthetic: Etomidate (12) Muscle Relaxant: Succinylcholine (100) Treatment Recommendations No Changes Recommended: No change Pt Tolerated Procedure w/o Issue: Yes
[2024-05-18] MEDS: cloZAPine 100 MG TABLET 200 MG PO (20:59)
[2024-05-19] MEDS: Levothyroxine Sodium 75 MCG TABLET PO (05:43)
[2024-05-19 08:00] VITALS: BP 111/67; PULSE 87; RESP 18; TEMP 36.3; O2SAT 100
[2024-05-19] MEDS: risperiDONE 3 MG TABLET 6 MG PO ×2 (08:50→19:41)
[2024-05-19] MEDS: Famotidine 20 MG TABLET PO (08:50)
[2024-05-19] MEDS: cloZAPine 100 MG TABLET PO ×2 (08:51→13:22)
[2024-05-19] MEDS: lamoTRIgine 25 MG TABLET 50 MG PO ×2 (08:51→19:42)
[2024-05-19] MEDS: Sennosides 8.6 MG TABLET PO (08:51)
--- NOTE | 2024-05-19 11:25 | HO.PSYCHPN ---
Subjective Subjective Date of Service: 05/19/24 Reason For Visit: Psychosis Subjective Notes: Conditional Voluntary Healthcare Proxy: Yes Interim History: The nursing staff reported that the patient had been isolated flat pleasant, she was very tired after ECT. She verbalized that she is feeling ?kind of crazy?. On interview the patient reports feeling tired, she can not remember that she had ECT yesterday. Mental Status Exam Mental Status Exam Patient Appearance: Appropriate Patient Orientation: Person and Situation Level of Consciousness: Awake and Appropriate Patient Behavior: Guarded and Passive Mood Description: Withdrawn Affect Description: Constricted Patient Cognition Impaired: Yes Ability to Follow Directions: Fair Speech Pattern: Clear Hallucinations: Auditory Delusions: Paranoid Ideation and Ideas of Reference Thought Process: Distracted and Slowed Thinking Thought Content: positive for [place] and positive for Circumstantial Judgement: Fair Diagnostics Vital Signs (24Hr): Vital Signs - 24 hr 05/18/24 13:52 05/18/24 14:30 05/18/24 14:35 Temperature 98.2 F 97.2 F Pulse Rate 78 90 85 Respiratory Rate 16 21 H 14 Blood Pressure 135/84 170/97 H 156/78 H Pulse Oximetry 99 97 97 Oxygen Delivery Method Room Air Nasal Cannula Nasal Cannula Oxygen Flow Rate 2 2 05/18/24 14:40 05/18/24 14:45 05/18/24 17:37 Temperature 97.3 F Pulse Rate 81 81 88 Respiratory Rate 14 14 18 Blood Pressure 135/81 137/86 138/77 Pulse Oximetry 96 96 98 Oxygen Delivery Method Room Air Room Air Oxygen Flow Rate 05/18/24 20:00 05/19/24 08:00 Temperature 97.7 F 97.3 F Pulse Rate 88 87 Respiratory Rate 18 18 Blood Pressure 108/66 111/67 Pulse Oximetry 97 100 Oxygen Delivery Method Room Air Room Air Oxygen Flow Rate BMI result Body Mass Index 24.8 Labs 04/05/24 15:38 04/05/24 15:38 Imaging Radiology Impressions: ITS Impressions Head CT 03/18/24 09:42 IMPRESSION: 1. No evidence of acute intracranial hemorrhage or edematous territorial infarction. 2. Mild to moderate underlying microangiopathy. 3. Arachnoid cyst in the right middle cranial fossa. Electronically signed by: Mino Arriaga DO 03/18/2024 06:26 PM [facility] Head CT 03/19/24 01:36 IMPRESSION: 1. Left frontal scalp soft tissue swelling. 2. No acute intracranial process seen. 3. Stable right middle cranial fossa arachnoid cyst. Electronically signed by: Andreas Olsen MD 03/19/2024 02:08 AM EST RP Head CT 04/05/24 16:20 IMPRESSION: 1. No acute intracranial hemorrhage or mass effect. 2. Stable right middle cranial fossa arachnoid cyst. Electronically signed by: Getachew Arana MD 04/05/2024 05:15 PM EST RP [facility] X-Ray 04/16/24 13:57 IMPRESSION: Nonobstructive bowel gas pattern. Large colonic and rectal fecal material. Electronically signed by: Chencho Ugalde MD 04/16/2024 02:13 PM EST RP Medications Medications Current Medications Acetaminophen (Acetaminophen 325 Mg Tablet) 650 mg PO Q6H PRN PRN Reason: Headache/Pain Mild Scale (1-3) Last Admin: 05/18/24 21:52 Dose: 650 mg Al Hydroxide/Mg Hydroxide (Magnesium Hydrox/Alum Hydrox 30 Ml Oral.Susp) 30 ml PO Q6H PRN PRN Reason: Heartburn/Nausea Clozapine (Clozapine 100 Mg Tablet) 100 mg PO DAILY [facility] Last Admin: 05/19/24 08:51 Dose: 100 mg Clozapine (Clozapine 100 Mg Tablet) 100 mg PO DAILY@1230 [facility] Last Admin: 05/18/24 12:46 Dose: 100 mg Clozapine (Clozapine 100 Mg Tablet) 200 mg PO BEDTIME [facility] Last Admin: 05/18/24 20:59 Dose: 200 mg Famotidine (Famotidine 20 Mg Tablet) 20 mg PO DAILY [facility] Last Admin: 05/19/24 08:50 Dose: 20 mg Hydrocortisone (Hydrocortisone 2.5 % Rectal Cr 30 Gm Tube) 1 appl HI DAILY [facility] Last Admin: 05/19/24 10:20 Dose: Not Given Hydroxyzine HCl (Hydroxyzine Hcl 25 Mg Tablet) 25 mg PO Q6H PRN PRN Reason: Anxiety Last Admin: 05/16/24 20:45 Dose: 25 mg Lamotrigine (Lamotrigine 25 Mg Tablet) 50 mg PO BID [facility] Last Admin: 05/19/24 08:51 Dose: 50 mg Levothyroxine Sodium (Levothyroxine Sodium 75 Mcg Tablet) 75 mcg PO DAILY@0600 [facility] Last Admin: 05/19/24 05:43 Dose: 75 mcg Magnesium Hydroxide (Milk Of Magnesia 30 Ml Oral.Susp) 30 ml PO BID PRN PRN Reason: Constipation Last Admin: 05/14/24 09:14 Dose: 30 ml Naloxone HCl (Naloxone Hcl 0.4 Mg/Ml Vial) 0.04 mg IVPUSH Q5M PRN PRN Reason: Excessive sedation or RR < 8 Naloxone HCl (Naloxone Hcl 0.4 Mg/Ml Vial) 0.04 mg IVPUSH Q5M PRN PRN Reason: Excessive sedation or RR < 8 Nicotine Polacrilex (Nicotine Polacrilex 2 Mg Gum) 2 mg BUCCAL Q2H PRN PRN Reason: Nicotine Cravings Olanzapine (Olanzapine 5 Mg Tablet) 5 mg PO Q4H PRN PRN Reason: Psychosis Last Admin: 05/09/24 10:24 Dose: 5 mg Polyethylene Glycol (Polyethylene Glycol 3350 17 Gm Powd.Pack) 17 gm PO DAILY PRN PRN Reason: Constipation Last Admin: 04/18/24 00:24 Dose: 17 gm Polyethylene Glycol (Polyethylene Glycol 3350 17 Gm Powd.Pack) 17 gm PO DAILY [facility] Last Admin: 05/19/24 08:51 Dose: Not Given Risperidone (Risperidone 3 Mg Tablet) 6 mg PO BID [facility] Last Admin: 05/19/24 08:50 Dose: 6 mg Senna (Sennosides 8.6 Mg Tablet) 8.6 mg PO DAILY [facility] Last Admin: 05/19/24 08:51 Dose: 8.6 mg Trazodone HCl (Trazodone Hcl 50 Mg Tablet) 50 mg PO BEDTIME MRX1 PRN PRN Reason: Insomnia Last Admin: 05/17/24 20:55 Dose: 50 mg Allergies Allergies Allergy/AdvReac Type Severity Reaction Status Date / Time trifluoperazine Allergy Unknown Verified 03/11/24 14:16 [From Stelazine] Assessment & Plan Assessment & Plan (1) Schizophrenia: Status: Acute Code(s): F20.9 - Schizophrenia, unspecified (2) Diverticulosis: Status: Chronic Code(s): K57.90 - Diverticulosis of intestine, part unspecified, without perforation or abscess without bleeding Plan Patient is a 73-year-old female with a PMH significant for HTN, post op VTE 2 years ago, hypothyroidism, and mood disorder who was admitted to [facility] after eloping from [facility] and walking into traffic on purpose. Patient apparently believes a friend is writing a horrible story about and does not want to live after everyone reads the book as she believes everyone will hate her. Hospitalist consult for ECT risk stratification. ECT risk stratification Previously underwent ECT without complications in 1998 Currently no significant medical complaints or PMH EKG from 7 days prior at time of admission negative for ischemia RCRI 0 points, class I risk Will repeat EKG before completing risk stratification Plan 1. Continue Risperdal 6 mg p.o. b.i.d.. 2. Clozaril has been changed to 100 mg p.o. b.i.d. and 200 mg p.o. q.h.s. to avoid over-sedation. 3. So far her psychosis had become stable. 4. ECT was considered and on May 13 the patient request this procedure since she reported she is feeling worse. We will try to schedule her ECT as soon as possible. 5. Referral for [facility] team. They assessed her on May 05 and stated that she is not at baseline but it seems that this is now her new baseline. So far she had not been assaultive for grossly disorganized after the medication changes and increase of Clozaril. 6. Family meeting next week to address the possibility of ECT and disposition. On May 13 her son who is the affirmed healthcare proxy signed herself in to ECT. 7. Zyprexa 5 mg p.o. q.6 hours PRNs hallucinations. 8. The patient is not at baseline at this moment we will continue with ECT. Reason for continued inpatient stay Substantial Risk for: inability to function, rapid decompensation and med/psych decompensation Time Spent With Patient Time: Total time managing care of this patient today __20__ minutes.
[2024-05-19] MEDS: Acetaminophen 325 MG TABLET 650 MG PO (13:25)
[2024-05-19] MEDS: cloZAPine 100 MG TABLET 200 MG PO (19:42)
[2024-05-19] MEDS: hydrOXYzine HCL 25 MG TABLET PO (19:42)
[2024-05-19] MEDS: traZODone HCL 50 MG TABLET PO (19:42)
[2024-05-19 20:00] VITALS: BP 109/74; PULSE 86; RESP 16; TEMP 36.3; O2SAT 97
[2024-05-20] VITALS (8 sets, daily range): BP systolic 102–157; BP diastolic 63–95; PULSE 77–90; RESP 14–18; TEMP 36.3–36.7; O2SAT 94–100
--- NOTE | 2024-05-20 08:03 | P.CONAN_ITS ---
[facility] Active Problems Active Problems: All Active Problems Arachnoid cyst (Acute) Diverticulosis (Chronic) Pre-op evaluation (Acute) Schizophrenia (Acute) Suicidal ideation (Acute) Past Medical History Medical History Diverticulosis Schizophrenia CKD (chronic kidney disease) Hyperlipidemia Type 2 diabetes mellitus Hypothyroidism HTN (hypertension) GERD (gastroesophageal reflux disease) Mood disorder Functional capacity: independent ambulation Family History Family history of problems with anesthesia: No Surgical History History of Problems with Anesthesia: No Social History Social History Household Members: None Household Members Other:: Lives at [facility] Housing: Assisted Living Facility Do you presently have visiting nurse or other home services: Yes Alcohol intake: current Comment: on 5 min checks Patient Tobacco Use Status: Former Tobacco user Tobacco use type: Cigarette Cigarette Packs Per Day: 3 Cigarettes Per Day: 60.0 Years Smoked: 16 Smoked in Last 30 Days: No Patient Interested in Nicotine Replacement: No Second Hand Smoke Exposure: No Use of substances other than those prescribed or required for medical reasons: No Currently Displaying Signs/Symptoms of Drug Intoxication Withdrawal: No Have you been hit, kicked, punched, or otherwise hurt by someone within the past year? If so, by whom?: No Do you feel safe in your current relationship?: No Current Relationship Is there a partner from a previous relationship who is making you feel unsafe now?: No Are you made to feel afraid or neglected: Yes (Pt reports she is afraid of the person writing the book about her.) Advance Directives: No Advance Directives Information Provided: Yes Do you have thoughts of harming others: None Do you have a plan to hurt others: No Plan Recently lost weight without trying: Unsure Nutrition Risks: No Nutritional Risk Patient : No : No Poor oral hygiene: No service: No Sexual orientation: Straight/Heterosexual Meds Allergies Allergy/AdvReac Type Severity Reaction Status Date / Time trifluoperazine Allergy Unknown Verified 03/11/24 14:16 [From Stelazine] Active Medications: Current Medications Acetaminophen (Acetaminophen 325 Mg Tablet) 650 mg PO Q6H PRN PRN Reason: Headache/Pain Mild Scale (1-3) Last Admin: 05/19/24 13:25 Dose: 650 mg Al Hydroxide/Mg Hydroxide (Magnesium Hydrox/Alum Hydrox 30 Ml Oral.Susp) 30 ml PO Q6H PRN PRN Reason: Heartburn/Nausea Clozapine (Clozapine 100 Mg Tablet) 100 mg PO DAILY COUNTS INCLUDE 234 BEDS AT THE [facility] Last Admin: 05/19/24 08:51 Dose: 100 mg Clozapine (Clozapine 100 Mg Tablet) 100 mg PO DAILY@1230 COUNTS INCLUDE 234 BEDS AT THE [facility] Last Admin: 05/19/24 13:22 Dose: 100 mg Clozapine (Clozapine 100 Mg Tablet) 200 mg PO BEDTIME COUNTS INCLUDE 234 BEDS AT THE [facility] Last Admin: 05/19/24 19:42 Dose: 200 mg Famotidine (Famotidine 20 Mg Tablet) 20 mg PO DAILY COUNTS INCLUDE 234 BEDS AT THE [facility] Last Admin: 05/19/24 08:50 Dose: 20 mg Hydrocortisone (Hydrocortisone 2.5 % Rectal Cr 30 Gm Tube) 1 appl ID DAILY COUNTS INCLUDE 234 BEDS AT THE [facility] Last Admin: 05/19/24 10:20 Dose: Not Given Hydroxyzine HCl (Hydroxyzine Hcl 25 Mg Tablet) 25 mg PO Q6H PRN PRN Reason: Anxiety Last Admin: 05/19/24 19:42 Dose: 25 mg Lactated Ringer's (Lr) 1,000 mls @ 50 mls/hr IVCONT .Q20H COUNTS INCLUDE 234 BEDS AT THE [facility] Lamotrigine (Lamotrigine 25 Mg Tablet) 50 mg PO BID COUNTS INCLUDE 234 BEDS AT THE [facility] Last Admin: 05/19/24 19:42 Dose: 50 mg Levothyroxine Sodium (Levothyroxine Sodium 75 Mcg Tablet) 75 mcg PO DAILY@0600 COUNTS INCLUDE 234 BEDS AT THE [facility] Last Admin: 05/20/24 05:46 Dose: Not Given Magnesium Hydroxide (Milk Of Magnesia 30 Ml Oral.Susp) 30 ml PO BID PRN PRN Reason: Constipation Last Admin: 05/14/24 09:14 Dose: 30 ml Naloxone HCl (Naloxone Hcl 0.4 Mg/Ml Vial) 0.04 mg IVPUSH Q5M PRN PRN Reason: Excessive sedation or RR < 8 Naloxone HCl (Naloxone Hcl 0.4 Mg/Ml Vial) 0.04 mg IVPUSH Q5M PRN PRN Reason: Excessive sedation or RR < 8 Naloxone HCl (Naloxone Hcl 0.4 Mg/Ml Vial) 0.04 mg IVPUSH Q5M PRN PRN Reason: Excessive sedation or RR < 8 Nicotine Polacrilex (Nicotine Polacrilex 2 Mg Gum) 2 mg BUCCAL Q2H PRN PRN Reason: Nicotine Cravings Olanzapine (Olanzapine 5 Mg Tablet) 5 mg PO Q4H PRN PRN Reason: Psychosis Last Admin: 05/09/24 10:24 Dose: 5 mg Polyethylene Glycol (Polyethylene Glycol 3350 17 Gm Powd.Pack) 17 gm PO DAILY PRN PRN Reason: Constipation Last Admin: 04/18/24 00:24 Dose: 17 gm Polyethylene Glycol (Polyethylene Glycol 3350 17 Gm Powd.Pack) 17 gm PO DAILY YURY Last Admin: 05/19/24 08:51 Dose: Not Given Risperidone (Risperidone 3 Mg Tablet) 6 mg PO BID COUNTS INCLUDE 234 BEDS AT THE [facility] Last Admin: 05/19/24 19:41 Dose: 6 mg Senna (Sennosides 8.6 Mg Tablet) 8.6 mg PO DAILY COUNTS INCLUDE 234 BEDS AT THE [facility] Last Admin: 05/19/24 08:51 Dose: 8.6 mg Trazodone HCl (Trazodone Hcl 50 Mg Tablet) 50 mg PO BEDTIME MRX1 PRN PRN Reason: Insomnia Last Admin: 05/19/24 19:42 Dose: 50 mg Home Medications ?Medication ?Instructions ?Recorded ?Confirmed ?Last Taken ?Type clozapine 100 mg tablet 100 mg PO DAILY 03/11/24 03/11/24 03/11/24 History clozapine 100 mg tablet 300 mg PO BEDTIME 03/11/24 03/11/24 03/10/24 History famotidine 20 mg tablet 20 mg PO DAILY 03/11/24 03/11/24 03/11/24 History lamotrigine 25 mg tablet 50 mg PO BID 03/11/24 03/11/24 03/11/24 History levothyroxine 75 mcg tablet 75 mcg PO DAILY 03/11/24 03/11/24 03/11/24 History risperidone 2 mg tablet 6 mg PO BID 03/11/24 03/11/24 03/11/24 History sennosides 8.6 mg tablet (senna) 8.6 mg PO DAILY PRN Constipation 03/11/24 03/11/24 Unknown History Exam Height,Weight and Vital Signs: Height 5 ft 6 in Weight 69.581 kg Last Vital Signs Temp 97.3 F 05/20/24 06:50 Pulse 80 05/20/24 06:50 Resp 16 05/20/24 06:50 BP 115/75 05/20/24 06:50 Pulse Ox 94 05/20/24 06:50 O2 Del Method Room Air 05/20/24 06:50 O2 Flow Rate 2 01/27/25 14:35 Pertinent Lab Results Pertinent Lab Results: Laboratory Tests 03/11/24 03/11/24 03/12/24 11:07 13:25 13:15 WBC 7.8 RBC 3.77 L Hgb 11.6 L Hct 34.5 L MCV 91.5 MCH 30.8 MCHC 33.6 RDW 14.8 Plt Count 205 MPV 10.3 Immature Gran % (Auto) 0.4 Neut % (Auto) 80.2 H Lymph % (Auto) 9.8 L [place] % (Auto) 8.6 Eos % (Auto) 0.5 Baso % (Auto) 0.5 Lymph # (Auto) 0.8 L [place] # (Auto) 0.7 Eos # (Auto) 0.0 Baso # (Auto) 0.0 Abs Immat Gran (auto) 0.03 Absolute Neuts (auto) 6.2 Absolute Nucleated RBC 0.000 Nucleated RBC % (auto) 0.0 Sodium 141 Potassium 4.2 Chloride 107 Carbon Dioxide 24 Anion Gap 14 BUN 18 H Creatinine 1.47 H Estim Creat Clear Calc 36.2 Estimated GFR 35 POC Glucose 118 H Random Glucose 119 H Fasting Glucose Estimat Average Glucose Hemoglobin A1c % Calcium 9.8 Magnesium Total Bilirubin 0.3 AST 20 ALT 16 Alkaline Phosphatase 90 Total Protein 6.0 L Albumin 4.0 Triglycerides Cholesterol LDL Cholesterol, Calc HDL Cholesterol Vitamin B12 Folate TSH Urine Color Yellow Urine Appearance Clear Urine pH 6.5 Ur Specific [place] <= 1.005 Urine Protein Negative Urine Glucose (UA) Negative Urine Ketones Negative Urine Blood Negative Urine Nitrite Negative Ur Leukocyte Esterase Small (1+) H Urine RBC 0-2 Urine WBC 0-5 Ur Squamous Epith Cells 0-2 Urine Bacteria None Seen Hyaline Casts 0-2 Urine Opiates Screen Not Detected Ur Buprenorphine Scrn Not Detected Ur Oxycodone Screen Not Detected Urine Methadone Screen Not Detected Urine Fentanyl Screen Not Detected Ur Barbiturates Screen Not Detected Ur Phencyclidine Scrn Not Detected Ur Amphetamines Screen Not Detected U Benzodiazepines Scrn Not Detected Urine Cocaine Screen Not Detected U Marijuana (THC) Screen Not Detected Ethyl Alcohol < 10 03/13/24 03/18/24 03/25/24 08:18 07:57 08:12 WBC RBC Hgb Hct MCV MCH MCHC RDW Plt Count MPV Immature Gran % (Auto) Neut % (Auto) Lymph % (Auto) [place] % (Auto) Eos % (Auto) Baso % (Auto) Lymph # (Auto) [place] # (Auto) Eos # (Auto) Baso # (Auto) Abs Immat Gran (auto) Absolute Neuts (auto) 4.2 3.3 Absolute Nucleated RBC Nucleated RBC % (auto) Sodium 142 Potassium 4.0 Chloride 108 Carbon Dioxide 28 Anion Gap 10 L BUN 23 H Creatinine 1.46 H Estim Creat Clear Calc 36.5 Estimated GFR 35 POC Glucose Random Glucose Fasting Glucose 114 H Estimat Average Glucose 114 Hemoglobin A1c % 5.6 Calcium 9.8 Magnesium 2.3 Total Bilirubin 0.4 AST 16 ALT 10 Alkaline Phosphatase 85 Total Protein 5.8 L Albumin 4.0 Triglycerides 133 Cholesterol 218 H LDL Cholesterol, Calc 144 H HDL Cholesterol 48 Vitamin B12 443 Folate 10.9 TSH 3.25 Urine Color Urine Appearance Urine pH Ur Specific [place] Urine Protein Urine Glucose (UA) Urine Ketones Urine Blood Urine Nitrite Ur Leukocyte Esterase Urine RBC Urine WBC Ur Squamous Epith Cells Urine Bacteria Hyaline Casts Urine Opiates Screen Ur Buprenorphine Scrn Ur Oxycodone Screen Urine Methadone Screen Urine Fentanyl Screen Ur Barbiturates Screen Ur Phencyclidine Scrn Ur Amphetamines Screen U Benzodiazepines Scrn Urine Cocaine Screen U Marijuana (THC) Screen Ethyl Alcohol 04/03/24 04/05/24 04/05/24 07:40 15:20 15:38 WBC 6.6 RBC 3.94 L Hgb 12.0 Hct 35.8 L MCV 90.9 MCH 30.5 MCHC 33.5 RDW 13.7 Plt Count 208 MPV 10.5 Immature Gran % (Auto) Neut % (Auto) Lymph % (Auto) [place] % (Auto) Eos % (Auto) Baso % (Auto) Lymph # (Auto) [place] # (Auto) Eos # (Auto) Baso # (Auto) Abs Immat Gran (auto) Absolute Neuts (auto) 5.0 Absolute Nucleated RBC 0.000 Nucleated RBC % (auto) 0.0 Sodium 144 Potassium 3.5 Chloride 106 Carbon Dioxide 25 Anion Gap 17 BUN 17 H Creatinine 1.50 H Estim Creat Clear Calc 37.2 Estimated GFR 34 POC Glucose 100 Random Glucose 74 Fasting Glucose Estimat Average Glucose Hemoglobin A1c % Calcium 9.8 Magnesium Total Bilirubin 0.4 AST 21 ALT 8 Alkaline Phosphatase 127 H Total Protein 5.8 L Albumin 3.9 Triglycerides Cholesterol LDL Cholesterol, Calc HDL Cholesterol Vitamin B12 Folate TSH Urine Color Urine Appearance Urine pH Ur Specific [place] Urine Protein Urine Glucose (UA) Urine Ketones Urine Blood Urine Nitrite Ur Leukocyte Esterase Urine RBC Urine WBC Ur Squamous Epith Cells Urine Bacteria Hyaline Casts Urine Opiates Screen Ur Buprenorphine Scrn Ur Oxycodone Screen Urine Methadone Screen Urine Fentanyl Screen Ur Barbiturates Screen Ur Phencyclidine Scrn Ur Amphetamines Screen U Benzodiazepines Scrn Urine Cocaine Screen U Marijuana (THC) Screen Ethyl Alcohol 04/12/24 04/15/24 04/22/24 08:30 08:26 07:29 WBC RBC Hgb Hct MCV MCH MCHC RDW Plt Count MPV Immature Gran % (Auto) Neut % (Auto) Lymph % (Auto) [place] % (Auto) Eos % (Auto) Baso % (Auto) Lymph # (Auto) [place] # (Auto) Eos # (Auto) Baso # (Auto) Abs Immat Gran (auto) Absolute Neuts (auto) 3.7 6.0 3.4 Absolute Nucleated RBC Nucleated RBC % (auto) Sodium Potassium Chloride Carbon Dioxide Anion Gap BUN Creatinine Estim Creat Clear Calc Estimated GFR POC Glucose Random Glucose Fasting Glucose Estimat Average Glucose Hemoglobin A1c % Calcium Magnesium Total Bilirubin AST ALT Alkaline Phosphatase Total Protein Albumin Triglycerides Cholesterol LDL Cholesterol, Calc HDL Cholesterol Vitamin B12 Folate TSH Urine Color Urine Appearance Urine pH Ur Specific [place] Urine Protein Urine Glucose (UA) Urine Ketones Urine Blood Urine Nitrite Ur Leukocyte Esterase Urine RBC Urine WBC Ur Squamous Epith Cells Urine Bacteria Hyaline Casts Urine Opiates Screen Ur Buprenorphine Scrn Ur Oxycodone Screen Urine Methadone Screen Urine Fentanyl Screen Ur Barbiturates Screen Ur Phencyclidine Scrn Ur Amphetamines Screen U Benzodiazepines Scrn Urine Cocaine Screen U Marijuana (THC) Screen Ethyl Alcohol 04/29/24 05/06/24 05/13/24 08:53 08:22 08:34 WBC RBC Hgb Hct MCV MCH MCHC RDW Plt Count MPV Immature Gran % (Auto) Neut % (Auto) Lymph % (Auto) [place] % (Auto) Eos % (Auto) Baso % (Auto) Lymph # (Auto) [place] # (Auto) Eos # (Auto) Baso # (Auto) Abs Immat Gran (auto) Absolute Neuts (auto) 6.0 3.7 4.6 Absolute Nucleated RBC Nucleated RBC % (auto) Sodium Potassium Chloride Carbon Dioxide Anion Gap BUN Creatinine Estim Creat Clear Calc Estimated GFR POC Glucose Random Glucose Fasting Glucose Estimat Average Glucose Hemoglobin A1c % Calcium Magnesium Total Bilirubin AST ALT Alkaline Phosphatase Total Protein Albumin Triglycerides Cholesterol LDL Cholesterol, Calc HDL Cholesterol Vitamin B12 Folate TSH Urine Color Urine Appearance Urine pH Ur Specific [place] Urine Protein Urine Glucose (UA) Urine Ketones Urine Blood Urine Nitrite Ur Leukocyte Esterase Urine RBC Urine WBC Ur Squamous Epith Cells Urine Bacteria Hyaline Casts Urine Opiates Screen Ur Buprenorphine Scrn Ur Oxycodone Screen Urine Methadone Screen Urine Fentanyl Screen Ur Barbiturates Screen Ur Phencyclidine Scrn Ur Amphetamines Screen U Benzodiazepines Scrn Urine Cocaine Screen U Marijuana (THC) Screen Ethyl Alcohol Airway Mallampati Class: II TM Dist: >3cm Neck ROM: Full Heart: rrr Lungs: cta Assessment and Plan Assessment Anesthesia Assessment: Anesthesia Plan Discussed and Chart Reviewed Final Anesthetic Review Family History of Problems with Anesthesia: No History of Problems with Anesthesia: No NPO: Yes ASA Class: III Final Preanesthetic Review: No Changes in Pt Med Stat, Meds/Allgs Chart Reviewed and Consent Obtained/Reviewed Patient Risk: Intermediate Procedure Risk: Intermediate Anesthetic Plan Anesthetic Plan: GA Disposition: Standard PACU
--- NOTE | 2024-05-20 08:37 | MHC.SHP ---
Pre-Procedural Eval Section A - 24 Hr Update-Section A only Date of Service: 05/20/24 The patient is an INPATIENT: Yes Changes since office visit: Yes Changes in Medication and Yes Patient answered all questions; No Cold of Flu in the past 2 weeks and No New Medical Problems The patient has been examined within 24 hours of the surgical procedure. The History & Physical has been completed within 30 days and I have reviewed it.: Yes Section B - Complete if H&P > 30 days Chief Complaint: Psychosis Allergies: Allergies Allergy/AdvReac Type Severity Reaction Status Date / Time trifluoperazine Allergy Unknown Verified 03/11/24 14:16 [From Adrian] Plan I have reviewed the history and physical and performed a pertinent physical examination on my patient. No changes have occurred unless specified. Time Spent With Patient Time: Total time managing care of this patient today ____ minutes.
[2024-05-20] MEDS: risperiDONE 3 MG TABLET 6 MG PO ×2 (09:09→19:41)
[2024-05-20] MEDS: Sennosides 8.6 MG TABLET PO (09:09)
[2024-05-20] MEDS: cloZAPine 100 MG TABLET PO ×2 (09:09→11:50)
[2024-05-20] MEDS: Famotidine 20 MG TABLET PO (09:09)
[2024-05-20] MEDS: lamoTRIgine 25 MG TABLET 50 MG PO ×2 (09:10→19:41)
[2024-05-20] MEDS: polyethylene glycoL 3350 17 GM POWD.PACK PO (09:10)
[2024-05-20 10:35] LABS: Neut%MD 76.5 %; Neutrophils Absolute Auto 5.4 x10*3/uL (2.0-8.3); WBCANC 7.1 X10*3/uL
--- NOTE | 2024-05-20 15:04 | HO.PSYCHPN ---
Subjective Subjective Date of Service: 05/20/24 Reason For Visit: Psychosis Subjective Notes: Conditional Voluntary Interim History: The nursing staff reported the patient had been compliant with treatment. Today she had ECT. On interview the patient reported that she is feeling tired, slightly sedated after ECT. Mental Status Exam Mental Status Exam Patient Appearance: Appropriate Patient Orientation: Person and Situation Level of Consciousness: Awake and Appropriate Patient Behavior: Guarded and Passive Mood Description: Withdrawn Affect Description: Constricted Patient Cognition Impaired: Yes Ability to Follow Directions: Good Speech Pattern: Clear Hallucinations: Auditory Delusions: Paranoid Ideation and Ideas of Reference Thought Process: Distracted and Slowed Thinking Thought Content: positive for [place] and positive for Poverty of Content Judgement: Fair Diagnostics Vital Signs (24Hr): Vital Signs - 24 hr 05/19/24 20:00 05/20/24 06:36 05/20/24 06:50 Temperature 97.3 F 97.8 F 97.3 F Pulse Rate 86 90 80 Respiratory Rate 16 16 16 Blood Pressure 109/74 117/75 115/75 Pulse Oximetry 97 98 94 Oxygen Delivery Method Room Air Room Air Oxygen Flow Rate 05/20/24 08:20 05/20/24 08:25 05/20/24 08:30 Temperature 97.8 F Pulse Rate 77 84 85 Respiratory Rate 17 17 17 Blood Pressure 157/95 H 154/80 H 130/80 Pulse Oximetry 100 100 95 Oxygen Delivery Method Nasal Cannula Nasal Cannula Room Air Oxygen Flow Rate 2 05/20/24 08:43 05/20/24 09:00 Temperature 97.8 F 98.1 F Pulse Rate 83 86 Respiratory Rate 14 18 Blood Pressure 112/75 108/63 Pulse Oximetry 95 98 Oxygen Delivery Method Room Air Room Air Oxygen Flow Rate BMI result Body Mass Index 24.8 Labs 04/05/24 15:38 04/05/24 15:38 Labs: Laboratory Results - last 48 hr 05/20/24 10:23 Absolute Neuts (auto) 5.4 Imaging Radiology Impressions: ITS Impressions Head CT 03/18/24 09:42 IMPRESSION: 1. No evidence of acute intracranial hemorrhage or edematous territorial infarction. 2. Mild to moderate underlying microangiopathy. 3. Arachnoid cyst in the right middle cranial fossa. Electronically signed by: Mino Arriaga DO 03/18/2024 06:26 PM [facility] [place] 03/19/24 01:36 IMPRESSION: 1. Left frontal scalp soft tissue swelling. 2. No acute intracranial process seen. 3. Stable right middle cranial fossa arachnoid cyst. Electronically signed by: Andreas Olsen MD 03/19/2024 02:08 AM EST RP Head CT 04/05/24 16:20 IMPRESSION: 1. No acute intracranial hemorrhage or mass effect. 2. Stable right middle cranial fossa arachnoid cyst. Electronically signed by: Getachew Arana MD 04/05/2024 05:15 PM EST RP KUB X-Ray 04/16/24 13:57 IMPRESSION: Nonobstructive bowel gas pattern. Large colonic and rectal fecal material. Electronically signed by: Chencho Ugalde MD 04/16/2024 02:13 PM EST RP Medications Medications Current Medications Acetaminophen (Acetaminophen 325 Mg Tablet) 650 mg PO Q6H PRN PRN Reason: Headache/Pain Mild Scale (1-3) Last Admin: 05/19/24 13:25 Dose: 650 mg Al Hydroxide/Mg Hydroxide (Magnesium Hydrox/Alum Hydrox 30 Ml Oral.Susp) 30 ml PO Q6H PRN PRN Reason: Heartburn/Nausea Clozapine (Clozapine 100 Mg Tablet) 100 mg PO DAILY [facility] Last Admin: 05/20/24 09:09 Dose: 100 mg Clozapine (Clozapine 100 Mg Tablet) 100 mg PO DAILY@1230 [facility] Last Admin: 05/20/24 11:50 Dose: 100 mg Clozapine (Clozapine 100 Mg Tablet) 200 mg PO BEDTIME [facility] Last Admin: 05/19/24 19:42 Dose: 200 mg Famotidine (Famotidine 20 Mg Tablet) 20 mg PO DAILY [facility] Last Admin: 05/20/24 09:09 Dose: 20 mg Hydrocortisone (Hydrocortisone 2.5 % Rectal Cr 30 Gm Tube) 1 appl [place] DAILY [facility] Last Admin: 05/20/24 09:10 Dose: Not Given Hydroxyzine HCl (Hydroxyzine Hcl 25 Mg Tablet) 25 mg PO Q6H PRN PRN Reason: Anxiety Last Admin: 05/19/24 19:42 Dose: 25 mg Lamotrigine (Lamotrigine 25 Mg Tablet) 50 mg PO BID [facility] Last Admin: 05/20/24 09:10 Dose: 50 mg Levothyroxine Sodium (Levothyroxine Sodium 75 Mcg Tablet) 75 mcg PO DAILY@0600 [facility] Last Admin: 05/20/24 05:46 Dose: Not Given Magnesium Hydroxide (Milk Of Magnesia 30 Ml Oral.Susp) 30 ml PO BID PRN PRN Reason: Constipation Last Admin: 05/14/24 09:14 Dose: 30 ml Nicotine Polacrilex (Nicotine Polacrilex 2 Mg Gum) 2 mg BUCCAL Q2H PRN PRN Reason: Nicotine Cravings Olanzapine (Olanzapine 5 Mg Tablet) 5 mg PO Q4H PRN PRN Reason: Psychosis Last Admin: 05/09/24 10:24 Dose: 5 mg Polyethylene Glycol (Polyethylene Glycol 3350 17 Gm Powd.Pack) 17 gm PO DAILY PRN PRN Reason: Constipation Last Admin: 04/18/24 00:24 Dose: 17 gm Polyethylene Glycol (Polyethylene Glycol 3350 17 Gm Powd.Pack) 17 gm PO DAILY [facility] Last Admin: 05/20/24 09:10 Dose: 17 gm Risperidone (Risperidone 3 Mg Tablet) 6 mg PO BID [facility] Last Admin: 05/20/24 09:09 Dose: 6 mg Senna (Sennosides 8.6 Mg Tablet) 8.6 mg PO DAILY [facility] Last Admin: 05/20/24 09:09 Dose: 8.6 mg Trazodone HCl (Trazodone Hcl 50 Mg Tablet) 50 mg PO BEDTIME MRX1 PRN PRN Reason: Insomnia Last Admin: 05/19/24 19:42 Dose: 50 mg Allergies Allergies Allergy/AdvReac Type Severity Reaction Status Date / Time trifluoperazine Allergy Unknown Verified 03/11/24 14:16 [From Stelazine] Assessment & Plan Assessment & Plan (1) Schizophrenia: Status: Acute Code(s): F20.9 - Schizophrenia, unspecified (2) Diverticulosis: Status: Chronic Code(s): K57.90 - Diverticulosis of intestine, part unspecified, without perforation or abscess without bleeding Plan Patient is a 73-year-old female with a PMH significant for HTN, post op VTE 2 years ago, hypothyroidism, and mood disorder who was admitted to [facility] after eloping from [facility] and walking into traffic on purpose. Patient apparently believes a friend is writing a horrible story about and does not want to live after everyone reads the book as she believes everyone will hate her. Hospitalist consult for ECT risk stratification. ECT risk stratification Previously underwent ECT without complications in 1998 Currently no significant medical complaints or PMH EKG from 7 days prior at time of admission negative for ischemia RCRI 0 points, class I risk Will repeat EKG before completing risk stratification Plan 1. Continue Risperdal 6 mg p.o. b.i.d.. 2. Clozaril has been changed to 100 mg p.o. b.i.d. and 200 mg p.o. q.h.s. to avoid over-sedation. 3. So far her psychosis had become stable. 4. ECT was considered and on May 13 the patient request this procedure since she reported she is feeling worse. We will try to schedule her ECT as soon as possible. 5. Referral for [facility] team. They assessed her on May 05 and stated that she is not at baseline but it seems that this is now her new baseline. So far she had not been assaultive for grossly disorganized after the medication changes and increase of Clozaril. 6. Family meeting next week to address the possibility of ECT and disposition. On May 13 her son who is the affirmed healthcare proxy signed herself in to ECT. 7. Zyprexa 5 mg p.o. q.6 hours PRNs hallucinations. 8. The patient is not at baseline at this moment we will continue with ECT. Reason for continued inpatient stay Substantial Risk for: inability to function, rapid decompensation and med/psych decompensation Time Spent With Patient Time: Total time managing care of this patient today __20__ minutes.
[2024-05-20] MEDS: Acetaminophen 325 MG TABLET 650 MG PO (15:09)
--- NOTE | 2024-05-20 17:49 | P.PCN_ITS ---
ECT Procedure Note Diagnosis/Treatment Date of Service: 05/20/24 Diagnosis: Schizoaffective Disorder Previous ECT Date: 05/18/24 Current Treatment Number: 3 Treatment: Series Interval Clinical Notes: Patient with history of schizoaffective disorder good response to ECT in previously. Had course of ECT in 1998. Patient had done best on combination of ECT and clozapine. Patient treated bifrontally 70% energy. Can increase energy next treatment. Patient feels she is possessed by the devil and God would want her med she deserves to be . History of quite serious suicide attemp ts. Denies current active SI lives in assisted living Consider change to pulse width of 0.5 Time: Total time managing care of this patient today ____ minutes. ECT Settings Device: THYMATRON DGx Electrode Placement: Bifrontal Program/Pulse Width: 0.25 Energy Percent: 70 Seizure Duration By EEG (in seconds): 20 Medications Administration General Anesthetic: Etomidate (12) Muscle Relaxant: Succinylcholine (100) Ancillary Medications Anti-emetics: Zofran - Pre ECT Airway Management Airway Management: Bag Mask Ventilation Treatment Recommendations Energy Percent: 100 Pt Tolerated Procedure w/o Issue: Yes
[2024-05-20] MEDS: cloZAPine 100 MG TABLET 200 MG PO (19:41)
[2024-05-21] MEDS: Levothyroxine Sodium 75 MCG TABLET PO (05:25)
[2024-05-21 08:00] VITALS: BP 102/55; PULSE 87; RESP 18; TEMP 36.1; O2SAT 99
[2024-05-21] MEDS: Famotidine 20 MG TABLET PO (08:38)
[2024-05-21] MEDS: cloZAPine 100 MG TABLET PO ×2 (08:38→14:00)
[2024-05-21] MEDS: polyethylene glycoL 3350 17 GM POWD.PACK PO (08:38)
[2024-05-21] MEDS: Sennosides 8.6 MG TABLET PO (08:38)
[2024-05-21] MEDS: risperiDONE 3 MG TABLET 6 MG PO ×2 (08:38→19:57)
[2024-05-21] MEDS: Acetaminophen 325 MG TABLET 650 MG PO (09:50)
[2024-05-21] MEDS: lamoTRIgine 25 MG TABLET 50 MG PO ×2 (10:49→19:58)
[2024-05-21 14:56] VITALS: BMI 25.7
--- NOTE | 2024-05-21 16:21 | HO.PSYCHPN ---
Subjective Subjective Date of Service: 05/21/24 Reason For Visit: Psychosis Subjective Notes: Conditional Voluntary Interim History: The nursing staff reported the patient had been isolative in her bed compliant with treatment. She slept well. On interview the patient reports that she is feeling confused at times. Mental Status Exam Mental Status Exam Patient Appearance: Appropriate Patient Orientation: Person and Situation Level of Consciousness: Awake and Appropriate Patient Behavior: Guarded and Passive Mood Description: Withdrawn Affect Description: Constricted Patient Cognition Impaired: Yes Ability to Follow Directions: Good Speech Pattern: Clear Hallucinations: Auditory Delusions: Paranoid Ideation and Ideas of Reference Thought Process: Distracted and Slowed Thinking Thought Content: positive for [place] and positive for Poverty of Content Judgement: Poor Diagnostics Vital Signs (24Hr): Vital Signs - 24 hr 05/20/24 19:38 05/21/24 08:00 Temperature 98.1 F 97 F Pulse Rate 90 87 Respiratory Rate 16 18 Blood Pressure 102/66 102/55 L Pulse Oximetry 100 99 Oxygen Delivery Method Room Air Room Air BMI result Body Mass Index 25.7 Labs 04/05/24 15:38 04/05/24 15:38 Labs: Laboratory Results - last 48 hr 05/20/24 10:23 Absolute Neuts (auto) 5.4 Imaging Radiology Impressions: ITS Impressions Head CT 03/18/24 09:42 IMPRESSION: 1. No evidence of acute intracranial hemorrhage or edematous territorial infarction. 2. Mild to moderate underlying microangiopathy. 3. Arachnoid cyst in the right middle cranial fossa. Electronically signed by: Mino Arriaga DO 03/18/2024 06:26 PM EST RP Head CT 03/19/24 01:36 IMPRESSION: 1. Left frontal scalp soft tissue swelling. 2. No acute intracranial process seen. 3. Stable right middle cranial fossa arachnoid cyst. Electronically signed by: Andreas Olsen MD 03/19/2024 02:08 AM EST RP Head CT 04/05/24 16:20 IMPRESSION: 1. No acute intracranial hemorrhage or mass effect. 2. Stable right middle cranial fossa arachnoid cyst. Electronically signed by: Getachew Arana MD 04/05/2024 05:15 PM EST RP [facility]UB X-Ray 04/16/24 13:57 IMPRESSION: Nonobstructive bowel gas pattern. Large colonic and rectal fecal material. Electronically signed by: Chencho Ugalde MD 04/16/2024 02:13 PM [facility] Medications Medications Current Medications Acetaminophen (Acetaminophen 325 Mg Tablet) 650 mg PO Q6H PRN PRN Reason: Headache/Pain Mild Scale (1-3) Last Admin: 05/21/24 09:50 Dose: 650 mg Al Hydroxide/Mg Hydroxide (Magnesium Hydrox/Alum Hydrox 30 Ml Oral.Susp) 30 ml PO Q6H PRN PRN Reason: Heartburn/Nausea Clozapine (Clozapine 100 Mg Tablet) 100 mg PO DAILY [facility] Last Admin: 05/21/24 08:38 Dose: 100 mg Clozapine (Clozapine 100 Mg Tablet) 100 mg PO DAILY@1230 [facility] Last Admin: 05/21/24 14:00 Dose: 100 mg Clozapine (Clozapine 100 Mg Tablet) 200 mg PO BEDTIME [facility] Last Admin: 05/20/24 19:41 Dose: 200 mg Famotidine (Famotidine 20 Mg Tablet) 20 mg PO DAILY [facility] Last Admin: 05/21/24 08:38 Dose: 20 mg Hydrocortisone (Hydrocortisone 2.5 % Rectal Cr 30 Gm Tube) 1 appl NE DAILY [facility] Last Admin: 05/21/24 10:43 Dose: Not Given Hydroxyzine HCl (Hydroxyzine Hcl 25 Mg Tablet) 25 mg PO Q6H PRN PRN Reason: Anxiety Last Admin: 05/19/24 19:42 Dose: 25 mg Lamotrigine (Lamotrigine 25 Mg Tablet) 50 mg PO BID [facility] Last Admin: 05/21/24 10:49 Dose: 50 mg Levothyroxine Sodium (Levothyroxine Sodium 75 Mcg Tablet) 75 mcg PO DAILY@0600 [facility] Last Admin: 05/21/24 05:25 Dose: 75 mcg Magnesium Hydroxide (Milk Of Magnesia 30 Ml Oral.Susp) 30 ml PO BID PRN PRN Reason: Constipation Last Admin: 05/14/24 09:14 Dose: 30 ml Nicotine Polacrilex (Nicotine Polacrilex 2 Mg Gum) 2 mg BUCCAL Q2H PRN PRN Reason: Nicotine Cravings Olanzapine (Olanzapine 5 Mg Tablet) 5 mg PO Q4H PRN PRN Reason: Psychosis Last Admin: 05/09/24 10:24 Dose: 5 mg Polyethylene Glycol (Polyethylene Glycol 3350 17 Gm Powd.Pack) 17 gm PO DAILY PRN PRN Reason: Constipation Last Admin: 04/18/24 00:24 Dose: 17 gm Polyethylene Glycol (Polyethylene Glycol 3350 17 Gm Powd.Pack) 17 gm PO DAILY [facility] Last Admin: 05/21/24 08:38 Dose: 17 gm Risperidone (Risperidone 3 Mg Tablet) 6 mg PO BID [facility] Last Admin: 05/21/24 08:38 Dose: 6 mg Senna (Sennosides 8.6 Mg Tablet) 8.6 mg PO DAILY [facility] Last Admin: 05/21/24 08:38 Dose: 8.6 mg Trazodone HCl (Trazodone Hcl 50 Mg Tablet) 50 mg PO BEDTIME MRX1 PRN PRN Reason: Insomnia Last Admin: 05/19/24 19:42 Dose: 50 mg Allergies Allergies Allergy/AdvReac Type Severity Reaction Status Date / Time trifluoperazine Allergy Unknown Verified 03/11/24 14:16 [From Stelazine] Assessment & Plan Assessment & Plan (1) Schizophrenia: Status: Acute Code(s): F20.9 - Schizophrenia, unspecified (2) Diverticulosis: Status: Chronic Code(s): K57.90 - Diverticulosis of intestine, part unspecified, without perforation or abscess without bleeding Plan Patient is a 73-year-old female with a PMH significant for HTN, post op VTE 2 years ago, hypothyroidism, and mood disorder who was admitted to [facility] after eloping from [facility] and walking into traffic on purpose. Patient apparently believes a friend is writing a horrible story about and does not want to live after everyone reads the book as she believes everyone will hate her. Hospitalist consult for ECT risk stratification. ECT risk stratification Previously underwent ECT without complications in 1998 Currently no significant medical complaints or PMH EKG from 7 days prior at time of admission negative for ischemia RCRI 0 points, class I risk Will repeat EKG before completing risk stratification Plan 1. Continue Risperdal 6 mg p.o. b.i.d.. 2. Clozaril has been changed to 100 mg p.o. b.i.d. and 200 mg p.o. q.h.s. to avoid over-sedation. 3. So far her psychosis had become stable. 4. ECT was considered and on Britney 22nd the patient request this procedure since she reported she is feeling worse. We will try to schedule her ECT as soon as possible. 5. Referral for [facility] team. They assessed her on May 05 and stated that she is not at baseline but it seems that this is now her new baseline. So far she had not been assaultive for grossly disorganized after the medication changes and increase of Clozaril. 6. Family meeting next week to address the possibility of ECT and disposition. On May 13 her son who is the affirmed healthcare proxy signed herself in to ECT. 7. Zyprexa 5 mg p.o. q.6 hours PRNs hallucinations. 8. The patient is not at baseline at this moment we will continue with ECT. Reason for continued inpatient stay Substantial Risk for: inability to function, rapid decompensation and med/psych decompensation Time Spent With Patient Time: Total time managing care of this patient today __20__ minutes.
[2024-05-21 19:56] VITALS: BP 99/56; PULSE 85; RESP 17; TEMP 36.6; O2SAT 96
[2024-05-21] MEDS: cloZAPine 100 MG TABLET 200 MG PO (19:58)
[2024-05-22] VITALS (11 sets, daily range): BP systolic 107–140; BP diastolic 65–77; PULSE 75–91; RESP 15–24; TEMP 36.3–36.8; O2SAT 97–99
--- NOTE | 2024-05-22 06:49 | P.CONAN_ITS ---
[facility] Active Problems Active Problems: All Active Problems Arachnoid cyst (Acute) Diverticulosis (Chronic) Pre-op evaluation (Acute) Schizophrenia (Acute) Suicidal ideation (Acute) Past Medical History Medical History Diverticulosis Schizophrenia CKD (chronic kidney disease) Hyperlipidemia Type 2 diabetes mellitus Hypothyroidism HTN (hypertension) GERD (gastroesophageal reflux disease) Mood disorder Functional capacity: independent ambulation Family History Family history of problems with anesthesia: No Surgical History History of Problems with Anesthesia: No Social History Social History Household Members: None Household Members Other:: Lives at [facility] Housing: Assisted Living Facility Do you presently have visiting nurse or other home services: Yes Alcohol intake: current Comment: on 5 min checks Patient Tobacco Use Status: Former Tobacco user Tobacco use type: Cigarette Cigarette Packs Per Day: 3 Cigarettes Per Day: 60.0 Years Smoked: 16 Smoked in Last 30 Days: No Patient Interested in Nicotine Replacement: No Second Hand Smoke Exposure: No Use of substances other than those prescribed or required for medical reasons: No Currently Displaying Signs/Symptoms of Drug Intoxication Withdrawal: No Have you been hit, kicked, punched, or otherwise hurt by someone within the past year? If so, by whom?: No Do you feel safe in your current relationship?: No Current Relationship Is there a partner from a previous relationship who is making you feel unsafe now?: No Are you made to feel afraid or neglected: Yes (Pt reports she is afraid of the person writing the book about her.) Advance Directives: No Advance Directives Information Provided: Yes Do you have thoughts of harming others: None Do you have a plan to hurt others: No Plan Recently lost weight without trying: Unsure Nutrition Risks: No Nutritional Risk Patient : No : No Poor oral hygiene: No service: No Sexual orientation: Straight/Heterosexual Meds Allergies Allergy/AdvReac Type Severity Reaction Status Date / Time trifluoperazine Allergy Unknown Verified 03/11/24 14:16 [From Stelazine] Active Medications: Current Medications Acetaminophen (Acetaminophen 325 Mg Tablet) 650 mg PO Q6H PRN PRN Reason: Headache/Pain Mild Scale (1-3) Last Admin: 05/21/24 09:50 Dose: 650 mg Al Hydroxide/Mg Hydroxide (Magnesium Hydrox/Alum Hydrox 30 Ml Oral.Susp) 30 ml PO Q6H PRN PRN Reason: Heartburn/Nausea Clozapine (Clozapine 100 Mg Tablet) 100 mg PO DAILY [facility] Last Admin: 05/21/24 08:38 Dose: 100 mg Clozapine (Clozapine 100 Mg Tablet) 100 mg PO DAILY@1230 [facility] Last Admin: 05/21/24 14:00 Dose: 100 mg Clozapine (Clozapine 100 Mg Tablet) 200 mg PO BEDTIME [facility] Last Admin: 05/21/24 19:58 Dose: 200 mg Famotidine (Famotidine 20 Mg Tablet) 20 mg PO DAILY [facility] Last Admin: 05/21/24 08:38 Dose: 20 mg Hydrocortisone (Hydrocortisone 2.5 % Rectal Cr 30 Gm Tube) 1 appl DE DAILY [facility] Last Admin: 05/21/24 10:43 Dose: Not Given Hydroxyzine HCl (Hydroxyzine Hcl 25 Mg Tablet) 25 mg PO Q6H PRN PRN Reason: Anxiety Last Admin: 05/19/24 19:42 Dose: 25 mg Lactated Ringer's (Lr) 1,000 mls @ 50 mls/hr IVCONT .Q20H [facility] Lamotrigine (Lamotrigine 25 Mg Tablet) 50 mg PO BID [facility] Last Admin: 05/21/24 19:58 Dose: 50 mg Levothyroxine Sodium (Levothyroxine Sodium 75 Mcg Tablet) 75 mcg PO DAILY@0600 [facility] Last Admin: 05/22/24 05:55 Dose: Not Given Magnesium Hydroxide (Milk Of Magnesia 30 Ml Oral.Susp) 30 ml PO BID PRN PRN Reason: Constipation Last Admin: 05/14/24 09:14 Dose: 30 ml Nicotine Polacrilex (Nicotine Polacrilex 2 Mg Gum) 2 mg BUCCAL Q2H PRN PRN Reason: Nicotine Cravings Olanzapine (Olanzapine 5 Mg Tablet) 5 mg PO Q4H PRN PRN Reason: Psychosis Last Admin: 05/09/24 10:24 Dose: 5 mg Polyethylene Glycol (Polyethylene Glycol 3350 17 Gm Powd.Pack) 17 gm PO DAILY PRN PRN Reason: Constipation Last Admin: 04/18/24 00:24 Dose: 17 gm Polyethylene Glycol (Polyethylene Glycol 3350 17 Gm Powd.Pack) 17 gm PO DAILY [facility] Last Admin: 05/21/24 08:38 Dose: 17 gm Risperidone (Risperidone 3 Mg Tablet) 6 mg PO BID [facility] Last Admin: 05/21/24 19:57 Dose: 6 mg Senna (Sennosides 8.6 Mg Tablet) 8.6 mg PO DAILY [facility] Last Admin: 05/21/24 08:38 Dose: 8.6 mg Trazodone HCl (Trazodone Hcl 50 Mg Tablet) 50 mg PO BEDTIME MRX1 PRN PRN Reason: Insomnia Last Admin: 05/19/24 19:42 Dose: 50 mg Home Medications ?Medication ?Instructions ?Recorded ?Confirmed ?Last Taken ?Type clozapine 100 mg tablet 100 mg PO DAILY 03/11/24 03/11/24 03/11/24 History clozapine 100 mg tablet 300 mg PO BEDTIME 03/11/24 03/11/24 03/10/24 History famotidine 20 mg tablet 20 mg PO DAILY 03/11/24 03/11/24 03/11/24 History lamotrigine 25 mg tablet 50 mg PO BID 03/11/24 03/11/24 03/11/24 History levothyroxine 75 mcg tablet 75 mcg PO DAILY 03/11/24 03/11/24 03/11/24 History risperidone 2 mg tablet 6 mg PO BID 03/11/24 03/11/24 03/11/24 History sennosides 8.6 mg tablet (senna) 8.6 mg PO DAILY PRN Constipation 03/11/24 03/11/24 Unknown History Exam Height,Weight and Vital Signs: Height 5 ft 6 in Weight 72.121 kg Last Vital Signs Temp 97.4 F 05/22/24 06:13 Pulse 75 05/22/24 06:13 Resp 16 05/22/24 06:13 BP 124/75 05/22/24 06:13 Pulse Ox 98 05/22/24 06:13 O2 Del Method Room Air 05/22/24 06:13 O2 Flow Rate 2 05/20/24 08:25 Pertinent Lab Results Pertinent Lab Results: Laboratory Tests 03/11/24 03/11/24 03/12/24 11:07 13:25 13:15 WBC 7.8 RBC 3.77 L Hgb 11.6 L Hct 34.5 L MCV 91.5 MCH 30.8 MCHC 33.6 RDW 14.8 Plt Count 205 MPV 10.3 Immature Gran % (Auto) 0.4 Neut % (Auto) 80.2 H Lymph % (Auto) 9.8 L [place] % (Auto) 8.6 Eos % (Auto) 0.5 Baso % (Auto) 0.5 Lymph # (Auto) 0.8 L [place] # (Auto) 0.7 Eos # (Auto) 0.0 Baso # (Auto) 0.0 Abs Immat Gran (auto) 0.03 Absolute Neuts (auto) 6.2 Absolute Nucleated RBC 0.000 Nucleated RBC % (auto) 0.0 Sodium 141 Potassium 4.2 Chloride 107 Carbon Dioxide 24 Anion Gap 14 BUN 18 H Creatinine 1.47 H Estim Creat Clear Calc 36.2 Estimated GFR 35 POC Glucose 118 H Random Glucose 119 H Fasting Glucose Estimat Average Glucose Hemoglobin A1c % Calcium 9.8 Magnesium Total Bilirubin 0.3 AST 20 ALT 16 Alkaline Phosphatase 90 Total Protein 6.0 L Albumin 4.0 Triglycerides Cholesterol LDL Cholesterol, Calc HDL Cholesterol Vitamin B12 Folate TSH Urine Color Yellow Urine Appearance Clear Urine pH 6.5 Ur Specific [place] <= 1.005 Urine Protein Negative Urine Glucose (UA) Negative Urine Ketones Negative Urine Blood Negative Urine Nitrite Negative Ur Leukocyte Esterase Small (1+) H Urine RBC 0-2 Urine WBC 0-5 Ur Squamous Epith Cells 0-2 Urine Bacteria None Seen Hyaline Casts 0-2 Urine Opiates Screen Not Detected Ur Buprenorphine Scrn Not Detected Ur Oxycodone Screen Not Detected Urine Methadone Screen Not Detected Urine Fentanyl Screen Not Detected Ur Barbiturates Screen Not Detected Ur Phencyclidine Scrn Not Detected Ur Amphetamines Screen Not Detected U Benzodiazepines Scrn Not Detected Urine Cocaine Screen Not Detected U Marijuana (THC) Screen Not Detected Ethyl Alcohol < 10 03/13/24 03/18/24 03/25/24 08:18 07:57 08:12 WBC RBC Hgb Hct MCV MCH MCHC RDW Plt Count MPV Immature Gran % (Auto) Neut % (Auto) Lymph % (Auto) [place] % (Auto) Eos % (Auto) Baso % (Auto) Lymph # (Auto) [place] # (Auto) Eos # (Auto) Baso # (Auto) Abs Immat Gran (auto) Absolute Neuts (auto) 4.2 3.3 Absolute Nucleated RBC Nucleated RBC % (auto) Sodium 142 Potassium 4.0 Chloride 108 Carbon Dioxide 28 Anion Gap 10 L BUN 23 H Creatinine 1.46 H Estim Creat Clear Calc 36.5 Estimated GFR 35 POC Glucose Random Glucose Fasting Glucose 114 H Estimat Average Glucose 114 Hemoglobin A1c % 5.6 Calcium 9.8 Magnesium 2.3 Total Bilirubin 0.4 AST 16 ALT 10 Alkaline Phosphatase 85 Total Protein 5.8 L Albumin 4.0 Triglycerides 133 Cholesterol 218 H LDL Cholesterol, Calc 144 H HDL Cholesterol 48 Vitamin B12 443 Folate 10.9 TSH 3.25 Urine Color Urine Appearance Urine pH Ur Specific [place] Urine Protein Urine Glucose (UA) Urine Ketones Urine Blood Urine Nitrite Ur Leukocyte Esterase Urine RBC Urine WBC Ur Squamous Epith Cells Urine Bacteria Hyaline Casts Urine Opiates Screen Ur Buprenorphine Scrn Ur Oxycodone Screen Urine Methadone Screen Urine Fentanyl Screen Ur Barbiturates Screen Ur Phencyclidine Scrn Ur Amphetamines Screen U Benzodiazepines Scrn Urine Cocaine Screen U Marijuana (THC) Screen Ethyl Alcohol 04/03/24 04/05/24 04/05/24 07:40 15:20 15:38 WBC 6.6 RBC 3.94 L Hgb 12.0 Hct 35.8 L MCV 90.9 MCH 30.5 MCHC 33.5 RDW 13.7 Plt Count 208 MPV 10.5 Immature Gran % (Auto) Neut % (Auto) Lymph % (Auto) [place] % (Auto) Eos % (Auto) Baso % (Auto) Lymph # (Auto) [place] # (Auto) Eos # (Auto) Baso # (Auto) Abs Immat Gran (auto) Absolute Neuts (auto) 5.0 Absolute Nucleated RBC 0.000 Nucleated RBC % (auto) 0.0 Sodium 144 Potassium 3.5 Chloride 106 Carbon Dioxide 25 Anion Gap 17 BUN 17 H Creatinine 1.50 H Estim Creat Clear Calc 37.2 Estimated GFR 34 POC Glucose 100 Random Glucose 74 Fasting Glucose Estimat Average Glucose Hemoglobin A1c % Calcium 9.8 Magnesium Total Bilirubin 0.4 AST 21 ALT 8 Alkaline Phosphatase 127 H Total Protein 5.8 L Albumin 3.9 Triglycerides Cholesterol LDL Cholesterol, Calc HDL Cholesterol Vitamin B12 Folate TSH Urine Color Urine Appearance Urine pH Ur Specific [place] Urine Protein Urine Glucose (UA) Urine Ketones Urine Blood Urine Nitrite Ur Leukocyte Esterase Urine RBC Urine WBC Ur Squamous Epith Cells Urine Bacteria Hyaline Casts Urine Opiates Screen Ur Buprenorphine Scrn Ur Oxycodone Screen Urine Methadone Screen Urine Fentanyl Screen Ur Barbiturates Screen Ur Phencyclidine Scrn Ur Amphetamines Screen U Benzodiazepines Scrn Urine Cocaine Screen U Marijuana (THC) Screen Ethyl Alcohol 12/04/15/24 04/22/24 08:30 08:26 07:29 WBC RBC Hgb Hct MCV MCH MCHC RDW Plt Count MPV Immature Gran % (Auto) Neut % (Auto) Lymph % (Auto) [place] % (Auto) Eos % (Auto) Baso % (Auto) Lymph # (Auto) [place] # (Auto) Eos # (Auto) Baso # (Auto) Abs Immat Gran (auto) Absolute Neuts (auto) 3.7 6.0 3.4 Absolute Nucleated RBC Nucleated RBC % (auto) Sodium Potassium Chloride Carbon Dioxide Anion Gap BUN Creatinine Estim Creat Clear Calc Estimated GFR POC Glucose Random Glucose Fasting Glucose Estimat Average Glucose Hemoglobin A1c % Calcium Magnesium Total Bilirubin AST ALT Alkaline Phosphatase Total Protein Albumin Triglycerides Cholesterol LDL Cholesterol, Calc HDL Cholesterol Vitamin B12 Folate TSH Urine Color Urine Appearance Urine pH Ur Specific [place] Urine Protein Urine Glucose (UA) Urine Ketones Urine Blood Urine Nitrite Ur Leukocyte Esterase Urine RBC Urine WBC Ur Squamous Epith Cells Urine Bacteria Hyaline Casts Urine Opiates Screen Ur Buprenorphine Scrn Ur Oxycodone Screen Urine Methadone Screen Urine Fentanyl Screen Ur Barbiturates Screen Ur Phencyclidine Scrn Ur Amphetamines Screen U Benzodiazepines Scrn Urine Cocaine Screen U Marijuana (THC) Screen Ethyl Alcohol 04/29/24 05/06/24 05/13/24 08:53 08:22 08:34 WBC RBC Hgb Hct MCV MCH MCHC RDW Plt Count MPV Immature Gran % (Auto) Neut % (Auto) Lymph % (Auto) [place] % (Auto) Eos % (Auto) Baso % (Auto) Lymph # (Auto) [place] # (Auto) Eos # (Auto) Baso # (Auto) Abs Immat Gran (auto) Absolute Neuts (auto) 6.0 3.7 4.6 Absolute Nucleated RBC Nucleated RBC % (auto) Sodium Potassium Chloride Carbon Dioxide Anion Gap BUN Creatinine Estim Creat Clear Calc Estimated GFR POC Glucose Random Glucose Fasting Glucose Estimat Average Glucose Hemoglobin A1c % Calcium Magnesium Total Bilirubin AST ALT Alkaline Phosphatase Total Protein Albumin Triglycerides Cholesterol LDL Cholesterol, Calc HDL Cholesterol Vitamin B12 Folate TSH Urine Color Urine Appearance Urine pH Ur Specific [place] Urine Protein Urine Glucose (UA) Urine Ketones Urine Blood Urine Nitrite Ur Leukocyte Esterase Urine RBC Urine WBC Ur Squamous Epith Cells Urine Bacteria Hyaline Casts Urine Opiates Screen Ur Buprenorphine Scrn Ur Oxycodone Screen Urine Methadone Screen Urine Fentanyl Screen Ur Barbiturates Screen Ur Phencyclidine Scrn Ur Amphetamines Screen U Benzodiazepines Scrn Urine Cocaine Screen U Marijuana (THC) Screen Ethyl Alcohol 05/20/24 10:23 WBC RBC Hgb Hct MCV MCH MCHC RDW Plt Count MPV Immature Gran % (Auto) Neut % (Auto) Lymph % (Auto) [place] % (Auto) Eos % (Auto) Baso % (Auto) Lymph # (Auto) [place] # (Auto) Eos # (Auto) Baso # (Auto) Abs Immat Gran (auto) Absolute Neuts (auto) 5.4 Absolute Nucleated RBC Nucleated RBC % (auto) Sodium Potassium Chloride Carbon Dioxide Anion Gap BUN Creatinine Estim Creat Clear Calc Estimated GFR POC Glucose Random Glucose Fasting Glucose Estimat Average Glucose Hemoglobin A1c % Calcium Magnesium Total Bilirubin AST ALT Alkaline Phosphatase Total Protein Albumin Triglycerides Cholesterol LDL Cholesterol, Calc HDL Cholesterol Vitamin B12 Folate TSH Urine Color Urine Appearance Urine pH Ur Specific [place] Urine Protein Urine Glucose (UA) Urine Ketones Urine Blood Urine Nitrite Ur Leukocyte Esterase Urine RBC Urine WBC Ur Squamous Epith Cells Urine Bacteria Hyaline Casts Urine Opiates Screen Ur Buprenorphine Scrn Ur Oxycodone Screen Urine Methadone Screen Urine Fentanyl Screen Ur Barbiturates Screen Ur Phencyclidine Scrn Ur Amphetamines Screen U Benzodiazepines Scrn Urine Cocaine Screen U Marijuana (THC) Screen Ethyl Alcohol Airway Mallampati Class: II (poor dentition) TM Dist: >3cm Neck ROM: Full Heart: rrr Lungs: cta Assessment and Plan Assessment Anesthesia Assessment: Anesthesia Plan Discussed and Chart Reviewed Final Anesthetic Review Family History of Problems with Anesthesia: No History of Problems with Anesthesia: No NPO: Yes ASA Class: III Final Preanesthetic Review: No Changes in Pt Med Stat, Meds/Allgs Chart Reviewed and Consent Obtained/Reviewed Patient Risk: Intermediate Procedure Risk: Intermediate Anesthetic Plan Anesthetic Plan: GA Disposition: Standard PACU
--- NOTE | 2024-05-22 07:22 | MHC.SHP ---
Pre-Procedural Eval Section A - 24 Hr Update-Section A only Date of Service: 05/22/24 The patient is an INPATIENT: Yes Changes since office visit: Yes Changes in Medication and Yes Patient answered all questions; No Cold of Flu in the past 2 weeks and No New Medical Problems The patient has been examined within 24 hours of the surgical procedure. The History & Physical has been completed within 30 days and I have reviewed it.: Yes Section B - Complete if H&P > 30 days Chief Complaint: Psychosis Allergies: Allergies Allergy/AdvReac Type Severity Reaction Status Date / Time trifluoperazine Allergy Unknown Verified 03/11/24 14:16 [From Adrian] Plan I have reviewed the history and physical and performed a pertinent physical examination on my patient. No changes have occurred unless specified. Time Spent With Patient Time: Total time managing care of this patient today ____ minutes.
--- NOTE | 2024-05-22 08:08 | HO.ECTPROC ---
ECT Procedure Note Diagnosis/Treatment Date of Service: 05/22/24 Diagnosis: Schizoaffective Disorder Current Treatment Number: 4 Treatment: Series Interval Clinical Notes: Pt with flat mood withdrawn deserves to feels somewhat better denies active si ect completed bf 0.5 pw sz 20 sec may do better with rtlf with aging at times bf more difficult sec frontal shrinkage Time: Total time managing care of this patient today ____ minutes. ECT Settings Device: THYMATRON DGx Electrode Placement: Bifrontal Program/Pulse Width: 0.50 Energy Percent: 100 Seizure Duration By EEG (in seconds): 20 Medications Administration General Anesthetic: Etomidate (12) Muscle Relaxant: Succinylcholine (80) Ancillary Medications Anti-emetics: Zofran - Pre ECT Airway Management Airway Management: Bag Mask Ventilation Treatment Recommendations Pt Tolerated Procedure w/o Issue: Yes
[2024-05-22] MEDS: Sennosides 8.6 MG TABLET PO (10:16)
[2024-05-22] MEDS: cloZAPine 100 MG TABLET PO ×2 (10:17→11:46)
[2024-05-22] MEDS: Famotidine 20 MG TABLET PO (10:17)
[2024-05-22] MEDS: lamoTRIgine 25 MG TABLET 50 MG PO ×2 (10:17→19:44)
[2024-05-22] MEDS: risperiDONE 3 MG TABLET 6 MG PO ×2 (10:18→19:44)
--- NOTE | 2024-05-22 13:59 | P.PNPSI_ITS ---
Subjective Subjective Date of Service: 05/22/24 Reason For Visit: Psychosis Subjective Notes: Conditional Voluntary Interim History: The nursing staff reported no changes in her mental status, she reports some anxiety and depression slept 7 hours. Today she had ECT. On interview the patient reports that she does not have side-effects with the last ECT her mood looks slightly brighter. We are going to start a low dose of Remeron at night. Mental Status Exam Mental Status Exam Patient Appearance: Appropriate Patient Orientation: Person and Situation Level of Consciousness: Awake and Appropriate Patient Behavior: Guarded and Passive Mood Description: Withdrawn Affect Description: Constricted Patient Cognition Impaired: Yes Ability to Follow Directions: Good Speech Pattern: Clear Hallucinations: Auditory Delusions: Paranoid Ideation and Ideas of Reference Thought Process: Distracted and Slowed Thinking Thought Content: positive for [facility] and positive for Poverty of Content Judgement: Fair Diagnostics Vital Signs (24Hr): Vital Signs - 24 hr 05/21/24 19:56 05/22/24 05:56 05/22/24 06:13 Temperature 97.8 F 97.5 F 97.4 F Pulse Rate 85 85 75 Respiratory Rate 17 15 16 Blood Pressure 99/56 L 121/68 124/75 Pulse Oximetry 96 99 98 Oxygen Delivery Method Room Air Room Air Oxygen Flow Rate 05/22/24 07:12 05/22/24 07:42 05/22/24 07:47 Temperature 98.3 F Pulse Rate 77 91 85 Respiratory Rate 16 24 H 15 Blood Pressure 111/72 140/68 H 132/77 Pulse Oximetry 99 98 97 Oxygen Delivery Method Nasal Cannula with ETCO2 Nasal Cannula with ETCO2 Nasal Cannula with ETCO2 Oxygen Flow Rate 2 2 2 05/22/24 07:52 05/22/24 07:57 05/22/24 08:00 Temperature 97.4 F Pulse Rate 81 81 81 Respiratory Rate 16 16 16 Blood Pressure 121/73 118/73 118/65 Pulse Oximetry 97 97 99 Oxygen Delivery Method Nasal Cannula with ETCO2 Nasal Cannula with ETCO2 Room Air Oxygen Flow Rate 2 2 05/22/24 08:12 05/22/24 08:27 Temperature 98.3 F Pulse Rate 78 78 Respiratory Rate 16 16 Blood Pressure 111/72 107/71 Pulse Oximetry 97 97 Oxygen Delivery Method Nasal Cannula with ETCO2 Room Air Oxygen Flow Rate 2 BMI result Body Mass Index 25.7 Labs 04/05/24 15:38 04/05/24 15:38 Imaging Radiology Impressions: ITS Impressions Head CT 03/18/24 09:42 IMPRESSION: 1. No evidence of acute intracranial hemorrhage or edematous territorial infarction. 2. Mild to moderate underlying microangiopathy. 3. Arachnoid cyst in the right middle cranial fossa. Electronically signed by: Mino Arriaga DO 03/18/2024 06:26 PM EST RP Head CT 03/19/24 01:36 IMPRESSION: 1. Left frontal scalp soft tissue swelling. 2. No acute intracranial process seen. 3. Stable right middle cranial fossa arachnoid cyst. Electronically signed by: Andreas Olsen MD 03/19/2024 02:08 AM EST RP Head CT 04/05/24 16:20 IMPRESSION: 1. No acute intracranial hemorrhage or mass effect. 2. Stable right middle cranial fossa arachnoid cyst. Electronically signed by: Getachew Arana MD 04/05/2024 05:15 PM EST RP KUB X-Ray 04/16/24 13:57 IMPRESSION: Nonobstructive bowel gas pattern. Large colonic and rectal fecal material. Electronically signed by: Chencho Ugalde MD 04/16/2024 02:13 PM EST RP Medications Medications Current Medications Acetaminophen (Acetaminophen 325 Mg Tablet) 650 mg PO Q6H PRN PRN Reason: Headache/Pain Mild Scale (1-3) Last Admin: 05/21/24 09:50 Dose: 650 mg Al Hydroxide/Mg Hydroxide (Magnesium Hydrox/Alum Hydrox 30 Ml Oral.Susp) 30 ml PO Q6H PRN PRN Reason: Heartburn/Nausea Clozapine (Clozapine 100 Mg Tablet) 100 mg PO DAILY [facility] Last Admin: 05/22/24 10:17 Dose: 100 mg Clozapine (Clozapine 100 Mg Tablet) 100 mg PO DAILY@1230 [facility] Last Admin: 05/22/24 11:46 Dose: 100 mg Clozapine (Clozapine 100 Mg Tablet) 200 mg PO BEDTIME [facility] Last Admin: 05/21/24 19:58 Dose: 200 mg Famotidine (Famotidine 20 Mg Tablet) 20 mg PO DAILY [facility] Last Admin: 05/22/24 10:17 Dose: 20 mg Hydrocortisone (Hydrocortisone 2.5 % Rectal Cr 30 Gm Tube) 1 appl [place] DAILY [facility] Last Admin: 05/22/24 10:18 Dose: Not Given Hydroxyzine HCl (Hydroxyzine Hcl 25 Mg Tablet) 25 mg PO Q6H PRN PRN Reason: Anxiety Last Admin: 05/19/24 19:42 Dose: 25 mg Lamotrigine (Lamotrigine 25 Mg Tablet) 50 mg PO BID [facility] Last Admin: 05/22/24 10:17 Dose: 50 mg Levothyroxine Sodium (Levothyroxine Sodium 75 Mcg Tablet) 75 mcg PO DAILY@0600 [facility] Last Admin: 05/22/24 05:55 Dose: Not Given Magnesium Hydroxide (Milk Of Magnesia 30 Ml Oral.Susp) 30 ml PO BID PRN PRN Reason: Constipation Last Admin: 05/14/24 09:14 Dose: 30 ml Naloxone HCl (Naloxone Hcl 0.4 Mg/Ml Vial) 0.04 mg IVPUSH Q5M PRN PRN Reason: Excessive sedation or RR < 8 Nicotine Polacrilex (Nicotine Polacrilex 2 Mg Gum) 2 mg BUCCAL Q2H PRN PRN Reason: Nicotine Cravings Olanzapine (Olanzapine 5 Mg Tablet) 5 mg PO Q4H PRN PRN Reason: Psychosis Last Admin: 05/09/24 10:24 Dose: 5 mg Polyethylene Glycol (Polyethylene Glycol 3350 17 Gm Powd.Pack) 17 gm PO DAILY PRN PRN Reason: Constipation Last Admin: 04/18/24 00:24 Dose: 17 gm Polyethylene Glycol (Polyethylene Glycol 3350 17 Gm Powd.Pack) 17 gm PO DAILY [facility] Last Admin: 05/22/24 10:18 Dose: Not Given Risperidone (Risperidone 3 Mg Tablet) 6 mg PO BID [facility] Last Admin: 05/22/24 10:18 Dose: 6 mg Senna (Sennosides 8.6 Mg Tablet) 8.6 mg PO DAILY [facility] Last Admin: 05/22/24 10:16 Dose: 8.6 mg Trazodone HCl (Trazodone Hcl 50 Mg Tablet) 50 mg PO BEDTIME MRX1 PRN PRN Reason: Insomnia Last Admin: 05/19/24 19:42 Dose: 50 mg Allergies Allergies Allergy/AdvReac Type Severity Reaction Status Date / Time trifluoperazine Allergy Unknown Verified 03/11/24 14:16 [From Stelazine] Assessment & Plan Assessment & Plan (1) Schizophrenia: Status: Acute Code(s): F20.9 - Schizophrenia, unspecified (2) Diverticulosis: Status: Chronic Code(s): K57.90 - Diverticulosis of intestine, part unspecified, without perforation or abscess without bleeding Plan Patient is a 73-year-old female with a PMH significant for HTN, post op VTE 2 years ago, hypothyroidism, and mood disorder who was admitted to [facility] after eloping from [facility] and walking into traffic on purpose. Patient apparently believes a friend is writing a horrible story about and does not want to live after everyone reads the book as she believes everyone will hate her. Hospitalist consult for ECT risk stratification. ECT risk stratification Previously underwent ECT without complications in 1998 Currently no significant medical complaints or PMH EKG from 7 days prior at time of admission negative for ischemia RCRI 0 points, class I risk Will repeat EKG before completing risk stratification Plan 1. Continue Risperdal 6 mg p.o. b.i.d.. 2. Clozaril has been changed to 100 mg p.o. b.i.d. and 200 mg p.o. q.h.s. to avoid over-sedation. 3. So far her psychosis had become stable. 4. ECT was considered and on May 13 the patient request this procedure since she reported she is feeling worse. We will try to schedule her ECT as soon as possible. 5. Referral for ACSS team. They assessed her on May 05 and stated that she is not at baseline but it seems that this is now her new baseline. So far she had not been assaultive for grossly disorganized after the medication changes and increase of Clozaril. 6. Family meeting next week to address the possibility of ECT and disposition. On May 13 her son who is the affirmed healthcare proxy signed herself in to ECT. 7. Zyprexa 5 mg p.o. q.6 hours PRNs hallucinations. 8. The patient is not at baseline at this moment we will continue with ECT. 9. Start Remeron 7.5 p.o. q.h.s. to target depression Reason for continued inpatient stay Substantial Risk for: inability to function, rapid decompensation and med/psych decompensation Time Spent With Patient Time: Total time managing care of this patient today __20__ minutes.
[2024-05-22] MEDS: traZODone HCL 50 MG TABLET PO (19:43)
[2024-05-22] MEDS: Mirtazapine 7.5 MG TABLET PO (19:43)
[2024-05-22] MEDS: cloZAPine 100 MG TABLET 200 MG PO (19:43)
[2024-05-22] MEDS: Acetaminophen 325 MG TABLET 650 MG PO (20:04)
[2024-05-23] MEDS: Levothyroxine Sodium 75 MCG TABLET PO (06:33)
[2024-05-23 08:00] VITALS: BP 97/61; PULSE 91; RESP 20; TEMP 36.2; O2SAT 98
[2024-05-23] MEDS: cloZAPine 100 MG TABLET PO ×2 (08:48→12:32)
[2024-05-23] MEDS: risperiDONE 3 MG TABLET 6 MG PO ×2 (08:48→21:35)
[2024-05-23] MEDS: Famotidine 20 MG TABLET PO (08:48)
[2024-05-23] MEDS: Acetaminophen 325 MG TABLET 650 MG PO ×2 (08:49→21:39)
[2024-05-23] MEDS: Sennosides 8.6 MG TABLET PO (08:49)
[2024-05-23] MEDS: lamoTRIgine 25 MG TABLET 50 MG PO ×2 (08:49→21:35)
[2024-05-23] MEDS: polyethylene glycoL 3350 17 GM POWD.PACK PO (08:52)
--- NOTE | 2024-05-23 18:59 | P.PNPSI_ITS ---
Subjective Subjective Date of Service: 05/23/24 Reason For Visit: Psychosis Subjective Notes: Conditional Voluntary Healthcare Proxy: Yes Interim History: pt cooperative accepts tx but withdrawn . No complaints of side effects isolative Mental Status Exam Mental Status Exam Patient Appearance: Appropriate Patient Orientation: Person, Place and Situation Level of Consciousness: Awake and Appropriate Patient Behavior: Guarded and Passive Mood Description: Withdrawn Affect Description: Constricted Patient Cognition Impaired: Yes Ability to Follow Directions: Good Speech Pattern: Clear Hallucinations: Auditory Delusions: Paranoid Ideation and Ideas of Reference Thought Process: Distracted and Slowed Thinking Thought Content: positive for [place] and positive for Poverty of Content Judgement: Fair Diagnostics Vital Signs (24Hr): Vital Signs - 24 hr 05/22/24 20:00 05/23/24 08:00 Temperature 97.6 F 97.2 F Pulse Rate 89 91 Respiratory Rate 16 20 Blood Pressure 115/66 97/61 Pulse Oximetry 98 98 Oxygen Delivery Method Room Air Room Air BMI result Body Mass Index 25.7 Labs 04/05/24 15:38 04/05/24 15:38 Imaging Radiology Impressions: ITS Impressions Head CT 03/18/24 09:42 IMPRESSION: 1. No evidence of acute intracranial hemorrhage or edematous territorial infarction. 2. Mild to moderate underlying microangiopathy. 3. Arachnoid cyst in the right middle cranial fossa. Electronically signed by: Mino Arriaga DO 03/18/2024 06:26 PM EST RP Head CT 03/19/24 01:36 IMPRESSION: 1. Left frontal scalp soft tissue swelling. 2. No acute intracranial process seen. 3. Stable right middle cranial fossa arachnoid cyst. Electronically signed by: Andreas Olsen MD 03/19/2024 02:08 AM EST RP Head CT 04/05/24 16:20 IMPRESSION: 1. No acute intracranial hemorrhage or mass effect. 2. Stable right middle cranial fossa arachnoid cyst. Electronically signed by: Getachew Arana MD 04/05/2024 05:15 PM EST RP KUB X-Ray 04/16/24 13:57 IMPRESSION: Nonobstructive bowel gas pattern. Large colonic and rectal fecal material. Electronically signed by: Chencho Ugalde MD 04/16/2024 02:13 PM EST RP Medications Medications Current Medications Acetaminophen (Acetaminophen 325 Mg Tablet) 650 mg PO Q6H PRN PRN Reason: Headache/Pain Mild Scale (1-3) Last Admin: 05/23/24 08:49 Dose: 650 mg Al Hydroxide/Mg Hydroxide (Magnesium Hydrox/Alum Hydrox 30 Ml Oral.Susp) 30 ml PO Q6H PRN PRN Reason: Heartburn/Nausea Clozapine (Clozapine 100 Mg Tablet) 100 mg PO DAILY [facility] Last Admin: 05/23/24 08:48 Dose: 100 mg Clozapine (Clozapine 100 Mg Tablet) 100 mg PO DAILY@1230 [facility] Last Admin: 05/23/24 12:32 Dose: 100 mg Clozapine (Clozapine 100 Mg Tablet) 200 mg PO BEDTIME [facility] Last Admin: 05/22/24 19:43 Dose: 200 mg Famotidine (Famotidine 20 Mg Tablet) 20 mg PO DAILY [facility] Last Admin: 05/23/24 08:48 Dose: 20 mg Hydrocortisone (Hydrocortisone 2.5 % Rectal Cr 30 Gm Tube) 1 appl PA DAILY [facility] Last Admin: 05/23/24 09:15 Dose: Not Given Hydroxyzine HCl (Hydroxyzine Hcl 25 Mg Tablet) 25 mg PO Q6H PRN PRN Reason: Anxiety Last Admin: 05/19/24 19:42 Dose: 25 mg Lamotrigine (Lamotrigine 25 Mg Tablet) 50 mg PO BID [facility] Last Admin: 05/23/24 08:49 Dose: 50 mg Levothyroxine Sodium (Levothyroxine Sodium 75 Mcg Tablet) 75 mcg PO DAILY@0600 [facility] Last Admin: 05/23/24 06:33 Dose: 75 mcg Magnesium Hydroxide (Milk Of Magnesia 30 Ml Oral.Susp) 30 ml PO BID PRN PRN Reason: Constipation Last Admin: 05/14/24 09:14 Dose: 30 ml Mirtazapine (Mirtazapine 7.5 Mg Tablet) 7.5 mg PO BEDTIME [facility] Last Admin: 05/22/24 19:43 Dose: 7.5 mg Naloxone HCl (Naloxone Hcl 0.4 Mg/Ml Vial) 0.04 mg IVPUSH Q5M PRN PRN Reason: Excessive sedation or RR < 8 Nicotine Polacrilex (Nicotine Polacrilex 2 Mg Gum) 2 mg BUCCAL Q2H PRN PRN Reason: Nicotine Cravings Olanzapine (Olanzapine 5 Mg Tablet) 5 mg PO Q4H PRN PRN Reason: Psychosis Last Admin: 05/09/24 10:24 Dose: 5 mg Polyethylene Glycol (Polyethylene Glycol 3350 17 Gm Powd.Pack) 17 gm PO DAILY PRN PRN Reason: Constipation Last Admin: 04/18/24 00:24 Dose: 17 gm Polyethylene Glycol (Polyethylene Glycol 3350 17 Gm Powd.Pack) 17 gm PO DAILY [facility] Last Admin: 05/23/24 08:52 Dose: 17 gm Risperidone (Risperidone 3 Mg Tablet) 6 mg PO BID [facility] Last Admin: 05/23/24 08:48 Dose: 6 mg Senna (Sennosides 8.6 Mg Tablet) 8.6 mg PO DAILY [facility] Last Admin: 05/23/24 08:49 Dose: 8.6 mg Trazodone HCl (Trazodone Hcl 50 Mg Tablet) 50 mg PO BEDTIME MRX1 PRN PRN Reason: Insomnia Last Admin: 05/22/24 19:43 Dose: 50 mg Allergies Allergies Allergy/AdvReac Type Severity Reaction Status Date / Time trifluoperazine Allergy Unknown Verified 03/11/24 14:16 [From Stelazine] Assessment & Plan Assessment & Plan (1) Schizophrenia: Status: Acute Code(s): F20.9 - Schizophrenia, unspecified (2) Diverticulosis: Status: Chronic Code(s): K57.90 - Diverticulosis of intestine, part unspecified, without perforation or abscess without bleeding Plan Patient is a 73-year-old female with a PMH significant for HTN, post op VTE 2 years ago, hypothyroidism, and mood disorder who was admitted to [facility] after eloping from [facility] and walking into traffic on purpose. Patient apparently believes a friend is writing a horrible story about and does not want to live after everyone reads the book as she believes everyone will hate her. Hospitalist consult for ECT risk stratification. ECT risk stratification Previously underwent ECT without complications in 1998 Currently no significant medical complaints or PMH EKG from 7 days prior at time of admission negative for ischemia RCRI 0 points, class I risk Will repeat EKG before completing risk stratification Plan 1. Continue Risperdal 6 mg p.o. b.i.d.. 2. Clozaril has been changed to 100 mg p.o. b.i.d. and 200 mg p.o. q.h.s. to avoid over-sedation. 3. So far her psychosis had become stable. 4. ECT was considered and on May 13 the patient request this procedure since she reported she is feeling worse. We will try to schedule her ECT as soon as possible. 5. Referral for ACSS team. They assessed her on May 05 and stated that she is not at baseline but it seems that this is now her new baseline. So far she had not been assaultive for grossly disorganized after the medication changes and increase of Clozaril. 6. Family meeting next week to address the possibility of ECT and disposition. On May 13 her son who is the affirmed healthcare proxy signed herself in to ECT. 7. Zyprexa 5 mg p.o. q.6 hours PRNs hallucinations. 8. The patient is not at baseline at this moment we will continue with ECT. 9. Start Remeron 7.5 p.o. q.h.s. to target depression 05/23/24 Pt withdrawn apathetic cont ect monitor response cont clozapine Reason for continued inpatient stay Substantial Risk for: harm to self Time Spent With Patient Time: Total time managing care of this patient today ____ minutes.
[2024-05-23 20:00] VITALS: BP 126/73; PULSE 90; TEMP 36.4; O2SAT 99
[2024-05-23] MEDS: traZODone HCL 50 MG TABLET PO (21:34)
[2024-05-23] MEDS: cloZAPine 100 MG TABLET 200 MG PO (21:35)
[2024-05-23] MEDS: Mirtazapine 7.5 MG TABLET PO (21:36)
[2024-05-24] MEDS: Levothyroxine Sodium 75 MCG TABLET PO (06:27)
[2024-05-24 08:00] VITALS: BP 96/58; PULSE 89; RESP 16; O2SAT 97
[2024-05-24] MEDS: cloZAPine 100 MG TABLET PO ×2 (08:31→12:55)
[2024-05-24] MEDS: lamoTRIgine 25 MG TABLET 50 MG PO ×2 (08:31→20:52)
[2024-05-24] MEDS: polyethylene glycoL 3350 17 GM POWD.PACK PO (08:31)
[2024-05-24] MEDS: risperiDONE 3 MG TABLET 6 MG PO ×2 (08:31→20:52)
[2024-05-24] MEDS: Famotidine 20 MG TABLET PO (08:31)
[2024-05-24] MEDS: Sennosides 8.6 MG TABLET PO (08:31)
[2024-05-24] MEDS: Acetaminophen 325 MG TABLET 650 MG PO (08:36)
--- NOTE | 2024-05-24 15:13 | HO.PSYCHPN ---
Subjective Subjective Date of Service: 05/24/24 Reason For Visit: Psychosis Subjective Notes: Conditional Voluntary Healthcare Proxy: Yes Interim History: Patient was visited by her ex- today. Does seem to have a somewhat tidwell range of affect less intrusive thoughts that she has failed God and deserves to . Often in her room Medication Compliance: Yes Mental Status Exam Mental Status Exam Patient Appearance: Appropriate Patient Orientation: Person, Place and Situation Level of Consciousness: Awake and Appropriate Patient Behavior: Passive and Good Eye Contact Mood Description: Blunted Affect Description: Constricted Patient Cognition Impaired: Yes Ability to Follow Directions: Good Speech Pattern: Clear Hallucinations: Auditory Delusions: Being Controlled and Ideas of Reference Thought Process: Intact Thought Content: positive for [place] and positive for Poverty of Content Judgement: Fair Diagnostics Vital Signs (24Hr): Vital Signs - 24 hr 05/23/24 20:00 05/24/24 08:00 Temperature 97.6 F Pulse Rate 90 89 Respiratory Rate 16 Blood Pressure 126/73 96/58 L Pulse Oximetry 99 97 Oxygen Delivery Method Room Air Room Air BMI result Body Mass Index 25.7 Labs 04/05/24 15:38 04/05/24 15:38 Imaging Radiology Impressions: ITS Impressions Head CT 03/18/24 09:42 IMPRESSION: 1. No evidence of acute intracranial hemorrhage or edematous territorial infarction. 2. Mild to moderate underlying microangiopathy. 3. Arachnoid cyst in the right middle cranial fossa. Electronically signed by: Mino Arriaga DO 03/18/2024 06:26 PM EST RP Head CT 03/19/24 01:36 IMPRESSION: 1. Left frontal scalp soft tissue swelling. 2. No acute intracranial process seen. 3. Stable right middle cranial fossa arachnoid cyst. Electronically signed by: Andreas Olsen MD 03/19/2024 02:08 AM EST RP Head CT 04/05/24 16:20 IMPRESSION: 1. No acute intracranial hemorrhage or mass effect. 2. Stable right middle cranial fossa arachnoid cyst. Electronically signed by: Getachew Arana MD 04/05/2024 05:15 PM EST RP KUB X-Ray 04/16/24 13:57 IMPRESSION: Nonobstructive bowel gas pattern. Large colonic and rectal fecal material. Electronically signed by: Chencho Ugalde MD 04/16/2024 02:13 PM [facility] Medications Medications Current Medications Acetaminophen (Acetaminophen 325 Mg Tablet) 650 mg PO Q6H PRN PRN Reason: Headache/Pain Mild Scale (1-3) Last Admin: 05/24/24 08:36 Dose: 650 mg Al Hydroxide/Mg Hydroxide (Magnesium Hydrox/Alum Hydrox 30 Ml Oral.Susp) 30 ml PO Q6H PRN PRN Reason: Heartburn/Nausea Clozapine (Clozapine 100 Mg Tablet) 100 mg PO DAILY [facility] Last Admin: 05/24/24 08:31 Dose: 100 mg Clozapine (Clozapine 100 Mg Tablet) 100 mg PO DAILY@1230 [facility] Last Admin: 05/24/24 12:55 Dose: 100 mg Clozapine (Clozapine 100 Mg Tablet) 200 mg PO BEDTIME [facility] Last Admin: 05/23/24 21:35 Dose: 200 mg Famotidine (Famotidine 20 Mg Tablet) 20 mg PO DAILY [facility] Last Admin: 05/24/24 08:31 Dose: 20 mg Hydrocortisone (Hydrocortisone 2.5 % Rectal Cr 30 Gm Tube) 1 appl [place] DAILY [facility] Last Admin: 05/24/24 08:31 Dose: Not Given Hydroxyzine HCl (Hydroxyzine Hcl 25 Mg Tablet) 25 mg PO Q6H PRN PRN Reason: Anxiety Last Admin: 05/19/24 19:42 Dose: 25 mg Lamotrigine (Lamotrigine 25 Mg Tablet) 50 mg PO BID [facility] Last Admin: 05/24/24 08:31 Dose: 50 mg Levothyroxine Sodium (Levothyroxine Sodium 75 Mcg Tablet) 75 mcg PO DAILY@0600 [facility] Last Admin: 05/24/24 06:27 Dose: 75 mcg Magnesium Hydroxide (Milk Of Magnesia 30 Ml Oral.Susp) 30 ml PO BID PRN PRN Reason: Constipation Last Admin: 05/14/24 09:14 Dose: 30 ml Mirtazapine (Mirtazapine 7.5 Mg Tablet) 7.5 mg PO BEDTIME [facility] Last Admin: 05/23/24 21:36 Dose: 7.5 mg Naloxone HCl (Naloxone Hcl 0.4 Mg/Ml Vial) 0.04 mg IVPUSH Q5M PRN PRN Reason: Excessive sedation or RR < 8 Nicotine Polacrilex (Nicotine Polacrilex 2 Mg Gum) 2 mg BUCCAL Q2H PRN PRN Reason: Nicotine Cravings Olanzapine (Olanzapine 5 Mg Tablet) 5 mg PO Q4H PRN PRN Reason: Psychosis Last Admin: 05/09/24 10:24 Dose: 5 mg Polyethylene Glycol (Polyethylene Glycol 3350 17 Gm Powd.Pack) 17 gm PO DAILY PRN PRN Reason: Constipation Last Admin: 04/18/24 00:24 Dose: 17 gm Polyethylene Glycol (Polyethylene Glycol 3350 17 Gm Powd.Pack) 17 gm PO DAILY [facility] Last Admin: 05/24/24 08:31 Dose: 17 gm Risperidone (Risperidone 3 Mg Tablet) 6 mg PO BID [facility] Last Admin: 05/24/24 08:31 Dose: 6 mg Senna (Sennosides 8.6 Mg Tablet) 8.6 mg PO DAILY [facility] Last Admin: 05/24/24 08:31 Dose: 8.6 mg Trazodone HCl (Trazodone Hcl 50 Mg Tablet) 50 mg PO BEDTIME MRX1 PRN PRN Reason: Insomnia Last Admin: 05/23/24 21:34 Dose: 50 mg Allergies Allergies Allergy/AdvReac Type Severity Reaction Status Date / Time trifluoperazine Allergy Unknown Verified 03/11/24 14:16 [From Stelazine] Assessment & Plan Assessment & Plan (1) Schizophrenia: Status: Acute Code(s): F20.9 - Schizophrenia, unspecified (2) Diverticulosis: Status: Chronic Code(s): K57.90 - Diverticulosis of intestine, part unspecified, without perforation or abscess without bleeding Plan Patient is a 73-year-old female with a PMH significant for HTN, post op VTE 2 years ago, hypothyroidism, and mood disorder who was admitted to [facility] after eloping from [facility] and walking into traffic on purpose. Patient apparently believes a friend is writing a horrible story about and does not want to live after everyone reads the book as she believes everyone will hate her. Hospitalist consult for ECT risk stratification. ECT risk stratification Previously underwent ECT without complications in 1998 Currently no significant medical complaints or PMH EKG from 7 days prior at time of admission negative for ischemia RCRI 0 points, class I risk Will repeat EKG before completing risk stratification Plan 1. Continue Risperdal 6 mg p.o. b.i.d.. 2. Clozaril has been changed to 100 mg p.o. b.i.d. and 200 mg p.o. q.h.s. to avoid over-sedation. 3. So far her psychosis had become stable. 4. ECT was considered and on May 13 the patient request this procedure since she reported she is feeling worse. We will try to schedule her ECT as soon as possible. 5. Referral for ACSS team. They assessed her on May 05 and stated that she is not at baseline but it seems that this is now her new baseline. So far she had not been assaultive for grossly disorganized after the medication changes and increase of Clozaril. 6. Family meeting next week to address the possibility of ECT and disposition. On May 13 her son who is the affirmed healthcare proxy signed herself in to ECT. 7. Zyprexa 5 mg p.o. q.6 hours PRNs hallucinations. 8. The patient is not at baseline at this moment we will continue with ECT. 9. Start Remeron 7.5 p.o. q.h.s. to target depression 05/23/24 Pt withdrawn apathetic cont ect monitor response cont clozapine 05/24/2024 Continue ECT and clozapine some improvement noted by patient Reason for continued inpatient stay Substantial Risk for: harm to self Time Spent With Patient Time: Total time managing care of this patient today ____ minutes.
[2024-05-24 20:00] VITALS: BP 108/61; PULSE 86; RESP 18; TEMP 36.4; O2SAT 96
[2024-05-24] MEDS: traZODone HCL 50 MG TABLET PO (20:52)
[2024-05-24] MEDS: Mirtazapine 7.5 MG TABLET PO (20:52)
[2024-05-24] MEDS: cloZAPine 100 MG TABLET 200 MG PO (20:52)
[2024-05-24] MEDS: hydrOXYzine HCL 25 MG TABLET PO (20:52)
[2024-05-25] VITALS (8 sets, daily range): BP systolic 107–126; BP diastolic 58–78; PULSE 76–92; RESP 16–18; TEMP 35.9–36.6; O2SAT 97–98
--- NOTE | 2024-05-25 07:04 | MHC.SHP ---
Pre-Procedural Eval Section A - 24 Hr Update-Section A only Date of Service: 05/25/24 The patient is an INPATIENT: Yes Changes since office visit: No Cold of Flu in the past 2 weeks, No New Medical Problems, No Changes in Medication and No Patient answered all questions The patient has been examined within 24 hours of the surgical procedure. The History & Physical has been completed within 30 days and I have reviewed it.: Yes Section B - Complete if H&P > 30 days Chief Complaint: Psychosis Allergies: Allergies Allergy/AdvReac Type Severity Reaction Status Date / Time trifluoperazine Allergy Unknown Verified 03/11/24 14:16 [From Adrina] Plan I have reviewed the history and physical and performed a pertinent physical examination on my patient. No changes have occurred unless specified. Time Spent With Patient Time: Total time managing care of this patient today ____ minutes.
--- NOTE | 2024-05-25 07:40 | HO.ECTPROC ---
ECT Procedure Note Diagnosis/Treatment Date of Service: 05/25/24 Diagnosis: Schizoaffective Disorder Previous ECT Date: 05/22/24 Current Treatment Number: 5 Treatment: Series Interval Clinical Notes: The patient reported some improvement of dysphoria, no side effects with previous ECT. ECT done as bifrontal at 0.5 100%, no complications. Woke up well Time: Total time managing care of this patient today __30__ minutes. ECT Settings Device: THYMATRON DGx Electrode Placement: Bifrontal Program/Pulse Width: 0.50 Energy Percent: 100 Seizure Duration By EEG (in seconds): 33 By Motor Observation (in seconds): 16 Medications Administration General Anesthetic: Etomidate (12) Muscle Relaxant: Succinylcholine (80) Ancillary Medications Miscillaneous Medications: Propofol Airway Management Airway Management: Bag Mask Ventilation Treatment Recommendations No Changes Recommended: No change Pt Tolerated Procedure w/o Issue: Yes
[2024-05-25] MEDS: Famotidine 20 MG TABLET PO (09:23)
[2024-05-25] MEDS: lamoTRIgine 25 MG TABLET 50 MG PO ×2 (09:23→20:08)
[2024-05-25] MEDS: risperiDONE 3 MG TABLET 6 MG PO ×2 (09:23→20:08)
[2024-05-25] MEDS: cloZAPine 100 MG TABLET PO ×2 (09:23→11:57)
[2024-05-25] MEDS: polyethylene glycoL 3350 17 GM POWD.PACK PO (09:23)
[2024-05-25] MEDS: Sennosides 8.6 MG TABLET PO (09:23)
--- NOTE | 2024-05-25 10:40 | P.CONAN_ITS ---
[facility] Active Problems Active Problems: All Active Problems Arachnoid cyst (Acute) Diverticulosis (Chronic) Pre-op evaluation (Acute) Schizophrenia (Acute) Suicidal ideation (Acute) Past Medical History Medical History Diverticulosis Schizophrenia CKD (chronic kidney disease) Hyperlipidemia Type 2 diabetes mellitus Hypothyroidism HTN (hypertension) GERD (gastroesophageal reflux disease) Mood disorder Functional capacity: independent ambulation Patient : No Family History Family history of problems with anesthesia: No Surgical History History of Problems with Anesthesia: No Social History Social History Household Members: None Household Members Other:: Lives at [facility] Housing: Assisted Living Facility Do you presently have visiting nurse or other home services: Yes Alcohol intake: current Patient Tobacco Use Status: Former Tobacco user Tobacco use type: Cigarette Cigarette Packs Per Day: 3 Cigarettes Per Day: 60.0 Years Smoked: 16 Smoked in Last 30 Days: No Patient Interested in Nicotine Replacement: No Second Hand Smoke Exposure: No Use of substances other than those prescribed or required for medical reasons: No Currently Displaying Signs/Symptoms of Drug Intoxication Withdrawal: No Have you been hit, kicked, punched, or otherwise hurt by someone within the past year? If so, by whom?: No Do you feel safe in your current relationship?: No Current Relationship Is there a partner from a previous relationship who is making you feel unsafe now?: No Are you made to feel afraid or neglected: Yes (Pt reports she is afraid of the person writing the book about her.) Advance Directives: No Advance Directives Information Provided: Yes Do you have thoughts of harming others: None Do you have a plan to hurt others: No Plan Recently lost weight without trying: Unsure Nutrition Risks: No Nutritional Risk Patient : No : No Poor oral hygiene: No service: No Sexual orientation: Straight/Heterosexual Meds Allergies Allergy/AdvReac Type Severity Reaction Status Date / Time trifluoperazine Allergy Unknown Verified 03/11/24 14:16 [From Stelazine] Active Medications: Current Medications Acetaminophen (Acetaminophen 325 Mg Tablet) 650 mg PO Q6H PRN PRN Reason: Headache/Pain Mild Scale (1-3) Last Admin: 05/24/24 08:36 Dose: 650 mg Al Hydroxide/Mg Hydroxide (Magnesium Hydrox/Alum Hydrox 30 Ml Oral.Susp) 30 ml PO Q6H PRN PRN Reason: Heartburn/Nausea Clozapine (Clozapine 100 Mg Tablet) 100 mg PO DAILY [facility] Last Admin: 05/25/24 09:23 Dose: 100 mg Clozapine (Clozapine 100 Mg Tablet) 100 mg PO DAILY@1230 [facility] Last Admin: 05/24/24 12:55 Dose: 100 mg Clozapine (Clozapine 100 Mg Tablet) 200 mg PO BEDTIME [facility] Last Admin: 05/24/24 20:52 Dose: 200 mg Famotidine (Famotidine 20 Mg Tablet) 20 mg PO DAILY [facility] Last Admin: 05/25/24 09:23 Dose: 20 mg Hydrocortisone (Hydrocortisone 2.5 % Rectal Cr 30 Gm Tube) 1 appl AL DAILY [facility] Last Admin: 05/25/24 09:23 Dose: Not Given Hydroxyzine HCl (Hydroxyzine Hcl 25 Mg Tablet) 25 mg PO Q6H PRN PRN Reason: Anxiety Last Admin: 05/24/24 20:52 Dose: 25 mg Lamotrigine (Lamotrigine 25 Mg Tablet) 50 mg PO BID [facility] Last Admin: 05/25/24 09:23 Dose: 50 mg Levothyroxine Sodium (Levothyroxine Sodium 75 Mcg Tablet) 75 mcg PO DAILY@0600 [facility] Last Admin: 05/25/24 05:43 Dose: Not Given Magnesium Hydroxide (Milk Of Magnesia 30 Ml Oral.Susp) 30 ml PO BID PRN PRN Reason: Constipation Last Admin: 05/14/24 09:14 Dose: 30 ml Mirtazapine (Mirtazapine 7.5 Mg Tablet) 7.5 mg PO BEDTIME [facility] Last Admin: 05/24/24 20:52 Dose: 7.5 mg Nicotine Polacrilex (Nicotine Polacrilex 2 Mg Gum) 2 mg BUCCAL Q2H PRN PRN Reason: Nicotine Cravings Olanzapine (Olanzapine 5 Mg Tablet) 5 mg PO Q4H PRN PRN Reason: Psychosis Last Admin: 05/09/24 10:24 Dose: 5 mg Polyethylene Glycol (Polyethylene Glycol 3350 17 Gm Powd.Pack) 17 gm PO DAILY PRN PRN Reason: Constipation Last Admin: 04/18/24 00:24 Dose: 17 gm Polyethylene Glycol (Polyethylene Glycol 3350 17 Gm Powd.Pack) 17 gm PO DAILY [facility] Last Admin: 05/25/24 09:23 Dose: 17 gm Risperidone (Risperidone 3 Mg Tablet) 6 mg PO BID [facility] Last Admin: 05/25/24 09:23 Dose: 6 mg Senna (Sennosides 8.6 Mg Tablet) 8.6 mg PO DAILY [facility] Last Admin: 05/25/24 09:23 Dose: 8.6 mg Trazodone HCl (Trazodone Hcl 50 Mg Tablet) 50 mg PO BEDTIME MRX1 PRN PRN Reason: Insomnia Last Admin: 05/24/24 20:52 Dose: 50 mg Home Medications ?Medication ?Instructions ?Recorded ?Confirmed ?Last Taken ?Type clozapine 100 mg tablet 100 mg PO DAILY 03/11/24 03/11/24 03/11/24 History clozapine 100 mg tablet 300 mg PO BEDTIME 03/11/24 03/11/24 03/10/24 History famotidine 20 mg tablet 20 mg PO DAILY 03/11/24 03/11/24 03/11/24 History lamotrigine 25 mg tablet 50 mg PO BID 03/11/24 03/11/24 03/11/24 History levothyroxine 75 mcg tablet 75 mcg PO DAILY 03/11/24 03/11/24 03/11/24 History risperidone 2 mg tablet 6 mg PO BID 03/11/24 03/11/24 03/11/24 History sennosides 8.6 mg tablet (senna) 8.6 mg PO DAILY PRN Constipation 03/11/24 03/11/24 Unknown History Exam Height,Weight and Vital Signs: Height 5 ft 6 in Weight 72.121 kg Last Vital Signs Temp 97.5 F 05/25/24 09:17 Pulse 77 05/25/24 09:17 Resp 18 05/25/24 09:17 BP 124/73 05/25/24 09:17 Pulse Ox 98 05/25/24 09:17 O2 Del Method Room Air 05/25/24 09:17 O2 Flow Rate 2 05/25/24 08:00 Pertinent Lab Results Pertinent Lab Results: Laboratory Tests 03/11/24 03/11/24 03/12/24 11:07 13:25 13:15 WBC 7.8 RBC 3.77 L Hgb 11.6 L Hct 34.5 L MCV 91.5 MCH 30.8 MCHC 33.6 RDW 14.8 Plt Count 205 MPV 10.3 Immature Gran % (Auto) 0.4 Neut % (Auto) 80.2 H Lymph % (Auto) 9.8 L [place] % (Auto) 8.6 Eos % (Auto) 0.5 Baso % (Auto) 0.5 Lymph # (Auto) 0.8 L [place] # (Auto) 0.7 Eos # (Auto) 0.0 Baso # (Auto) 0.0 Abs Immat Gran (auto) 0.03 Absolute Neuts (auto) 6.2 Absolute Nucleated RBC 0.000 Nucleated RBC % (auto) 0.0 Sodium 141 Potassium 4.2 Chloride 107 Carbon Dioxide 24 Anion Gap 14 BUN 18 H Creatinine 1.47 H Estim Creat Clear Calc 36.2 Estimated GFR 35 POC Glucose 118 H Random Glucose 119 H Fasting Glucose Estimat Average Glucose Hemoglobin A1c % Calcium 9.8 Magnesium Total Bilirubin 0.3 AST 20 ALT 16 Alkaline Phosphatase 90 Total Protein 6.0 L Albumin 4.0 Triglycerides Cholesterol LDL Cholesterol, Calc HDL Cholesterol Vitamin B12 Folate TSH Urine Color Yellow Urine Appearance Clear Urine pH 6.5 Ur Specific [place] <= 1.005 Urine Protein Negative Urine Glucose (UA) Negative Urine Ketones Negative Urine Blood Negative Urine Nitrite Negative Ur Leukocyte Esterase Small (1+) H Urine RBC 0-2 Urine WBC 0-5 Ur Squamous Epith Cells 0-2 Urine Bacteria None Seen Hyaline Casts 0-2 Urine Opiates Screen Not Detected Ur Buprenorphine Scrn Not Detected Ur Oxycodone Screen Not Detected Urine Methadone Screen Not Detected Urine Fentanyl Screen Not Detected Ur Barbiturates Screen Not Detected Ur Phencyclidine Scrn Not Detected Ur Amphetamines Screen Not Detected U Benzodiazepines Scrn Not Detected Urine Cocaine Screen Not Detected U Marijuana (THC) Screen Not Detected Ethyl Alcohol < 10 03/13/24 03/18/24 03/25/24 08:18 07:57 08:12 WBC RBC Hgb Hct MCV MCH MCHC RDW Plt Count MPV Immature Gran % (Auto) Neut % (Auto) Lymph % (Auto) [place] % (Auto) Eos % (Auto) Baso % (Auto) Lymph # (Auto) [place] # (Auto) Eos # (Auto) Baso # (Auto) Abs Immat Gran (auto) Absolute Neuts (auto) 4.2 3.3 Absolute Nucleated RBC Nucleated RBC % (auto) Sodium 142 Potassium 4.0 Chloride 108 Carbon Dioxide 28 Anion Gap 10 L BUN 23 H Creatinine 1.46 H Estim Creat Clear Calc 36.5 Estimated GFR 35 POC Glucose Random Glucose Fasting Glucose 114 H Estimat Average Glucose 114 Hemoglobin A1c % 5.6 Calcium 9.8 Magnesium 2.3 Total Bilirubin 0.4 AST 16 ALT 10 Alkaline Phosphatase 85 Total Protein 5.8 L Albumin 4.0 Triglycerides 133 Cholesterol 218 H LDL Cholesterol, Calc 144 H HDL Cholesterol 48 Vitamin B12 443 Folate 10.9 TSH 3.25 Urine Color Urine Appearance Urine pH Ur Specific [place] Urine Protein Urine Glucose (UA) Urine Ketones Urine Blood Urine Nitrite Ur Leukocyte Esterase Urine RBC Urine WBC Ur Squamous Epith Cells Urine Bacteria Hyaline Casts Urine Opiates Screen Ur Buprenorphine Scrn Ur Oxycodone Screen Urine Methadone Screen Urine Fentanyl Screen Ur Barbiturates Screen Ur Phencyclidine Scrn Ur Amphetamines Screen U Benzodiazepines Scrn Urine Cocaine Screen U Marijuana (THC) Screen Ethyl Alcohol 04/03/24 04/05/24 04/05/24 07:40 15:20 15:38 WBC 6.6 RBC 3.94 L Hgb 12.0 Hct 35.8 L MCV 90.9 MCH 30.5 MCHC 33.5 RDW 13.7 Plt Count 208 MPV 10.5 Immature Gran % (Auto) Neut % (Auto) Lymph % (Auto) [place] % (Auto) Eos % (Auto) Baso % (Auto) Lymph # (Auto) [place] # (Auto) Eos # (Auto) Baso # (Auto) Abs Immat Gran (auto) Absolute Neuts (auto) 5.0 Absolute Nucleated RBC 0.000 Nucleated RBC % (auto) 0.0 Sodium 144 Potassium 3.5 Chloride 106 Carbon Dioxide 25 Anion Gap 17 BUN 17 H Creatinine 1.50 H Estim Creat Clear Calc 37.2 Estimated GFR 34 POC Glucose 100 Random Glucose 74 Fasting Glucose Estimat Average Glucose Hemoglobin A1c % Calcium 9.8 Magnesium Total Bilirubin 0.4 AST 21 ALT 8 Alkaline Phosphatase 127 H Total Protein 5.8 L Albumin 3.9 Triglycerides Cholesterol LDL Cholesterol, Calc HDL Cholesterol Vitamin B12 Folate TSH Urine Color Urine Appearance Urine pH Ur Specific [place] Urine Protein Urine Glucose (UA) Urine Ketones Urine Blood Urine Nitrite Ur Leukocyte Esterase Urine RBC Urine WBC Ur Squamous Epith Cells Urine Bacteria Hyaline Casts Urine Opiates Screen Ur Buprenorphine Scrn Ur Oxycodone Screen Urine Methadone Screen Urine Fentanyl Screen Ur Barbiturates Screen Ur Phencyclidine Scrn Ur Amphetamines Screen U Benzodiazepines Scrn Urine Cocaine Screen U Marijuana (THC) Screen Ethyl Alcohol 04/12/24 04/15/24 04/22/24 08:30 08:26 07:29 WBC RBC Hgb Hct MCV MCH MCHC RDW Plt Count MPV Immature Gran % (Auto) Neut % (Auto) Lymph % (Auto) [place] % (Auto) Eos % (Auto) Baso % (Auto) Lymph # (Auto) [place] # (Auto) Eos # (Auto) Baso # (Auto) Abs Immat Gran (auto) Absolute Neuts (auto) 3.7 6.0 3.4 Absolute Nucleated RBC Nucleated RBC % (auto) Sodium Potassium Chloride Carbon Dioxide Anion Gap BUN Creatinine Estim Creat Clear Calc Estimated GFR POC Glucose Random Glucose Fasting Glucose Estimat Average Glucose Hemoglobin A1c % Calcium Magnesium Total Bilirubin AST ALT Alkaline Phosphatase Total Protein Albumin Triglycerides Cholesterol LDL Cholesterol, Calc HDL Cholesterol Vitamin B12 Folate TSH Urine Color Urine Appearance Urine pH Ur Specific [place] Urine Protein Urine Glucose (UA) Urine Ketones Urine Blood Urine Nitrite Ur Leukocyte Esterase Urine RBC Urine WBC Ur Squamous Epith Cells Urine Bacteria Hyaline Casts Urine Opiates Screen Ur Buprenorphine Scrn Ur Oxycodone Screen Urine Methadone Screen Urine Fentanyl Screen Ur Barbiturates Screen Ur Phencyclidine Scrn Ur Amphetamines Screen U Benzodiazepines Scrn Urine Cocaine Screen U Marijuana (THC) Screen Ethyl Alcohol 04/29/24 05/06/24 05/13/24 08:53 08:22 08:34 WBC RBC Hgb Hct MCV MCH MCHC RDW Plt Count MPV Immature Gran % (Auto) Neut % (Auto) Lymph % (Auto) [place] % (Auto) Eos % (Auto) Baso % (Auto) Lymph # (Auto) [place] # (Auto) Eos # (Auto) Baso # (Auto) Abs Immat Gran (auto) Absolute Neuts (auto) 6.0 3.7 4.6 Absolute Nucleated RBC Nucleated RBC % (auto) Sodium Potassium Chloride Carbon Dioxide Anion Gap BUN Creatinine Estim Creat Clear Calc Estimated GFR POC Glucose Random Glucose Fasting Glucose Estimat Average Glucose Hemoglobin A1c % Calcium Magnesium Total Bilirubin AST ALT Alkaline Phosphatase Total Protein Albumin Triglycerides Cholesterol LDL Cholesterol, Calc HDL Cholesterol Vitamin B12 Folate TSH Urine Color Urine Appearance Urine pH Ur Specific [place] Urine Protein Urine Glucose (UA) Urine Ketones Urine Blood Urine Nitrite Ur Leukocyte Esterase Urine RBC Urine WBC Ur Squamous Epith Cells Urine Bacteria Hyaline Casts Urine Opiates Screen Ur Buprenorphine Scrn Ur Oxycodone Screen Urine Methadone Screen Urine Fentanyl Screen Ur Barbiturates Screen Ur Phencyclidine Scrn Ur Amphetamines Screen U Benzodiazepines Scrn Urine Cocaine Screen U Marijuana (THC) Screen Ethyl Alcohol 05/20/24 10:23 WBC RBC Hgb Hct MCV MCH MCHC RDW Plt Count MPV Immature Gran % (Auto) Neut % (Auto) Lymph % (Auto) [place] % (Auto) Eos % (Auto) Baso % (Auto) Lymph # (Auto) [place] # (Auto) Eos # (Auto) Baso # (Auto) Abs Immat Gran (auto) Absolute Neuts (auto) 5.4 Absolute Nucleated RBC Nucleated RBC % (auto) Sodium Potassium Chloride Carbon Dioxide Anion Gap BUN Creatinine Estim Creat Clear Calc Estimated GFR POC Glucose Random Glucose Fasting Glucose Estimat Average Glucose Hemoglobin A1c % Calcium Magnesium Total Bilirubin AST ALT Alkaline Phosphatase Total Protein Albumin Triglycerides Cholesterol LDL Cholesterol, Calc HDL Cholesterol Vitamin B12 Folate TSH Urine Color Urine Appearance Urine pH Ur Specific [place] Urine Protein Urine Glucose (UA) Urine Ketones Urine Blood Urine Nitrite Ur Leukocyte Esterase Urine RBC Urine WBC Ur Squamous Epith Cells Urine Bacteria Hyaline Casts Urine Opiates Screen Ur Buprenorphine Scrn Ur Oxycodone Screen Urine Methadone Screen Urine Fentanyl Screen Ur Barbiturates Screen Ur Phencyclidine Scrn Ur Amphetamines Screen U Benzodiazepines Scrn Urine Cocaine Screen U Marijuana (THC) Screen Ethyl Alcohol Airway Mallampati Class: II TM Dist: >3cm Neck ROM: Full Heart: RRR Lungs: CTA Assessment and Plan Assessment Anesthesia Assessment: Chart Reviewed Final Anesthetic Review Family History of Problems with Anesthesia: No History of Problems with Anesthesia: No NPO: Yes ASA Class: III Final Preanesthetic Review: Meds/Allgs Chart Reviewed, Consent Obtained/Reviewed and Anes Risks/Benef Reviewed Patient Risk: Intermediate Procedure Risk: Intermediate Anesthetic Plan Anesthetic Plan: GA Disposition: Standard PACU
--- NOTE | 2024-05-25 10:42 | HO.POSTANES ---
Post Anesthesia Evaluation Post Anesthesia Evaluation Date of Service: 05/25/24 Vital Signs: Vital Signs Temp Pulse Resp BP Pulse Ox O2 Del Method O2 Flow Rate 05/25/24 09:17 97.5 F 77 18 124/73 98 Room Air 05/25/24 08:38 97.7 F 76 16 114/75 98 Room Air 05/25/24 08:15 76 16 115/72 98 Room Air 05/25/24 08:00 81 16 126/77 98 Nasal Cannula 2 05/25/24 07:55 80 16 126/74 98 Nasal Cannula 2 05/25/24 07:51 97.8 F 78 16 119/78 98 Nasal Cannula 05/25/24 06:03 97.3 F 77 18 107/58 L 97 Room Air Anesthesia: General Mental Status: Awake Pain Control: Satisfactory Nausea/Vomiting: None Hydration: Adequate Anesthesia-Related Issues: No Anes. Related Issues
--- NOTE | 2024-05-25 14:52 | HO.PSYCHPN ---
Subjective Subjective Date of Service: 05/25/24 Reason For Visit: Psychosis Subjective Notes: Conditional Voluntary Interim History: The nursing staff reported the patient had been isolative, she had ECT today. After ECT the patient reported over-sedation. Her mood has improved and she still has sporadic auditory hallucinations. Mental Status Exam Mental Status Exam Patient Appearance: Appropriate Patient Orientation: Person and Situation Level of Consciousness: Awake and Appropriate Patient Behavior: Guarded and Passive Mood Description: Withdrawn Affect Description: Constricted Patient Cognition Impaired: Yes Ability to Follow Directions: Good Speech Pattern: Clear Hallucinations: None Delusions: Paranoid Ideation Thought Process: Distracted Thought Content: positive for [place] and positive for Poverty of Content Judgement: Fair Diagnostics Vital Signs (24Hr): Vital Signs - 24 hr 05/24/24 20:00 05/25/24 06:03 05/25/24 07:51 Temperature 97.5 F 97.3 F 97.8 F Pulse Rate 86 77 78 Respiratory Rate 18 18 16 Blood Pressure 108/61 107/58 L 119/78 Pulse Oximetry 96 97 98 Oxygen Delivery Method Room Air Room Air Nasal Cannula Oxygen Flow Rate 05/25/24 07:55 05/25/24 08:00 05/25/24 08:15 Temperature Pulse Rate 80 81 76 Respiratory Rate 16 16 16 Blood Pressure 126/74 126/77 115/72 Pulse Oximetry 98 98 98 Oxygen Delivery Method Nasal Cannula Nasal Cannula Room Air Oxygen Flow Rate 2 2 05/25/24 08:38 05/25/24 09:17 Temperature 97.7 F 97.5 F Pulse Rate 76 77 Respiratory Rate 16 18 Blood Pressure 114/75 124/73 Pulse Oximetry 98 98 Oxygen Delivery Method Room Air Room Air Oxygen Flow Rate BMI result Body Mass Index 25.7 Labs 04/05/24 15:38 04/05/24 15:38 Imaging Radiology Impressions: ITS Impressions Head CT 03/18/24 09:42 IMPRESSION: 1. No evidence of acute intracranial hemorrhage or edematous territorial infarction. 2. Mild to moderate underlying microangiopathy. 3. Arachnoid cyst in the right middle cranial fossa. Electronically signed by: Mino Arriaga DO 03/18/2024 06:26 PM [facility] Head CT 03/19/24 01:36 IMPRESSION: 1. Left frontal scalp soft tissue swelling. 2. No acute intracranial process seen. 3. Stable right middle cranial fossa arachnoid cyst. Electronically signed by: Andreas Olsen MD 03/19/2024 02:08 AM EST RP Head CT 04/05/24 16:20 IMPRESSION: 1. No acute intracranial hemorrhage or mass effect. 2. Stable right middle cranial fossa arachnoid cyst. Electronically signed by: Getachew Arana MD 04/05/2024 05:15 PM EST RP [facility] X-Ray 04/16/24 13:57 IMPRESSION: Nonobstructive bowel gas pattern. Large colonic and rectal fecal material. Electronically signed by: Chencho Ugalde MD 04/16/2024 02:13 PM EST RP Medications Medications Current Medications Acetaminophen (Acetaminophen 325 Mg Tablet) 650 mg PO Q6H PRN PRN Reason: Headache/Pain Mild Scale (1-3) Last Admin: 05/24/24 08:36 Dose: 650 mg Al Hydroxide/Mg Hydroxide (Magnesium Hydrox/Alum Hydrox 30 Ml Oral.Susp) 30 ml PO Q6H PRN PRN Reason: Heartburn/Nausea Clozapine (Clozapine 100 Mg Tablet) 100 mg PO DAILY [facility] Last Admin: 05/25/24 09:23 Dose: 100 mg Clozapine (Clozapine 100 Mg Tablet) 100 mg PO DAILY@1230 [facility] Last Admin: 05/25/24 11:57 Dose: 100 mg Clozapine (Clozapine 100 Mg Tablet) 200 mg PO BEDTIME [facility] Last Admin: 05/24/24 20:52 Dose: 200 mg Famotidine (Famotidine 20 Mg Tablet) 20 mg PO DAILY [facility] Last Admin: 05/25/24 09:23 Dose: 20 mg Hydrocortisone (Hydrocortisone 2.5 % Rectal Cr 30 Gm Tube) 1 appl ND DAILY [facility] Last Admin: 05/25/24 09:23 Dose: Not Given Hydroxyzine HCl (Hydroxyzine Hcl 25 Mg Tablet) 25 mg PO Q6H PRN PRN Reason: Anxiety Last Admin: 05/24/24 20:52 Dose: 25 mg Lamotrigine (Lamotrigine 25 Mg Tablet) 50 mg PO BID [facility] Last Admin: 05/25/24 09:23 Dose: 50 mg Levothyroxine Sodium (Levothyroxine Sodium 75 Mcg Tablet) 75 mcg PO DAILY@0600 [facility] Last Admin: 05/25/24 05:43 Dose: Not Given Magnesium Hydroxide (Milk Of Magnesia 30 Ml Oral.Susp) 30 ml PO BID PRN PRN Reason: Constipation Last Admin: 05/14/24 09:14 Dose: 30 ml Mirtazapine (Mirtazapine 7.5 Mg Tablet) 7.5 mg PO BEDTIME [facility] Last Admin: 05/24/24 20:52 Dose: 7.5 mg Naloxone HCl (Naloxone Hcl 0.4 Mg/Ml Vial) 0.04 mg IVPUSH Q5M PRN PRN Reason: Excessive sedation or RR < 8 Nicotine Polacrilex (Nicotine Polacrilex 2 Mg Gum) 2 mg BUCCAL Q2H PRN PRN Reason: Nicotine Cravings Olanzapine (Olanzapine 5 Mg Tablet) 5 mg PO Q4H PRN PRN Reason: Psychosis Last Admin: 05/09/24 10:24 Dose: 5 mg Polyethylene Glycol (Polyethylene Glycol 3350 17 Gm Powd.Pack) 17 gm PO DAILY PRN PRN Reason: Constipation Last Admin: 04/18/24 00:24 Dose: 17 gm Polyethylene Glycol (Polyethylene Glycol 3350 17 Gm Powd.Pack) 17 gm PO DAILY [facility] Last Admin: 05/25/24 09:23 Dose: 17 gm Risperidone (Risperidone 3 Mg Tablet) 6 mg PO BID [facility] Last Admin: 05/25/24 09:23 Dose: 6 mg Senna (Sennosides 8.6 Mg Tablet) 8.6 mg PO DAILY [facility] Last Admin: 05/25/24 09:23 Dose: 8.6 mg Trazodone HCl (Trazodone Hcl 50 Mg Tablet) 50 mg PO BEDTIME MRX1 PRN PRN Reason: Insomnia Last Admin: 05/24/24 20:52 Dose: 50 mg Allergies Allergies Allergy/AdvReac Type Severity Reaction Status Date / Time trifluoperazine Allergy Unknown Verified 03/11/24 14:16 [From Stelazine] Assessment & Plan Assessment & Plan (1) Schizophrenia: Status: Acute Code(s): F20.9 - Schizophrenia, unspecified (2) Diverticulosis: Status: Chronic Code(s): K57.90 - Diverticulosis of intestine, part unspecified, without perforation or abscess without bleeding Plan Patient is a 73-year-old female with a PMH significant for HTN, post op VTE 2 years ago, hypothyroidism, and mood disorder who was admitted to [facility] after eloping from [facility] and walking into traffic on purpose. Patient apparently believes a friend is writing a horrible story about and does not want to live after everyone reads the book as she believes everyone will hate her. Hospitalist consult for ECT risk stratification. ECT risk stratification Previously underwent ECT without complications in 1998 Currently no significant medical complaints or PMH EKG from 7 days prior at time of admission negative for ischemia RCRI 0 points, class I risk Will repeat EKG before completing risk stratification Plan 1. Continue Risperdal 6 mg p.o. b.i.d.. 2. Clozaril has been changed to 100 mg p.o. b.i.d. and 200 mg p.o. q.h.s. to avoid over-sedation. 3. So far her psychosis had become stable. 4. ECT was considered and on May 13 the patient request this procedure since she reported she is feeling worse. We will try to schedule her ECT as soon as possible. 5. Referral for [facility] team. They assessed her on May 05 and stated that she is not at baseline but it seems that this is now her new baseline. So far she had not been assaultive for grossly disorganized after the medication changes and increase of Clozaril. 6. Family meeting next week to address the possibility of ECT and disposition. On May 13 her son who is the affirmed healthcare proxy signed herself in to ECT. 7. Zyprexa 5 mg p.o. q.6 hours PRNs hallucinations. 8. The patient is not at baseline at this moment we will continue with ECT. 9. Start Remeron 7.5 p.o. q.h.s. to target depression Reason for continued inpatient stay Substantial Risk for: inability to function, rapid decompensation and med/psych decompensation Time Spent With Patient Time: Total time managing care of this patient today _20___ minutes.
[2024-05-25] MEDS: cloZAPine 100 MG TABLET 200 MG PO (20:07)
[2024-05-25] MEDS: traZODone HCL 50 MG TABLET PO (20:08)
[2024-05-25] MEDS: hydrOXYzine HCL 25 MG TABLET PO (20:08)
[2024-05-25] MEDS: Mirtazapine 7.5 MG TABLET PO (20:08)
[2024-05-25] MEDS: Acetaminophen 325 MG TABLET 650 MG PO (20:13)
[2024-05-26] MEDS: Levothyroxine Sodium 75 MCG TABLET PO (06:04)
[2024-05-26 07:55] VITALS: BP 120/72; PULSE 92; RESP 18; TEMP 36.4; O2SAT 97
[2024-05-26] MEDS: risperiDONE 3 MG TABLET 6 MG PO ×2 (08:40→20:43)
[2024-05-26] MEDS: cloZAPine 100 MG TABLET PO ×2 (08:41→11:57)
[2024-05-26] MEDS: lamoTRIgine 25 MG TABLET 50 MG PO ×2 (08:41→20:43)
[2024-05-26] MEDS: Sennosides 8.6 MG TABLET PO (08:41)
[2024-05-26] MEDS: polyethylene glycoL 3350 17 GM POWD.PACK PO (08:41)
[2024-05-26] MEDS: Famotidine 20 MG TABLET PO (08:41)
--- NOTE | 2024-05-26 11:54 | HO.POSTANES ---
Post Anesthesia Evaluation Post Anesthesia Evaluation Date of Service: 05/26/24 Vital Signs: Vital Signs Temp Pulse Resp BP Pulse Ox O2 Del Method 05/26/24 07:55 97.6 F 92 18 120/72 97 Room Air Anesthesia: General Mental Status: Awake Pain Control: Satisfactory Nausea/Vomiting: None Hydration: Adequate Anesthesia-Related Issues: No Anes. Related Issues
--- NOTE | 2024-05-26 15:43 | HO.PSYCHPN ---
Subjective Subjective Date of Service: 05/26/24 Reason For Visit: Psychosis Subjective Notes: Conditional Voluntary Interim History: The nursing staff reported the patient had been compliant with treatment, eating well , slept well. On interview the patient looks with a brighter affect. She feels better since ECT was started. Mental Status Exam Mental Status Exam Patient Appearance: Appropriate Patient Orientation: Person and Situation Level of Consciousness: Awake Patient Behavior: Guarded and Passive Mood Description: Withdrawn Affect Description: Constricted Patient Cognition Impaired: Yes Ability to Follow Directions: Good Speech Pattern: Clear Hallucinations: Auditory Delusions: Ideas of Reference Thought Process: Distracted and Slowed Thinking Thought Content: positive for [place] and positive for Poverty of Content Judgement: Fair Diagnostics Vital Signs (24Hr): Vital Signs - 24 hr 05/25/24 20:00 05/26/24 07:55 Temperature 96.7 F L 97.6 F Pulse Rate 92 92 Respiratory Rate 18 Blood Pressure 120/72 120/72 Pulse Oximetry 97 97 Oxygen Delivery Method Room Air Room Air BMI result Body Mass Index 25.7 Labs 04/05/24 15:38 04/05/24 15:38 Imaging Radiology Impressions: ITS Impressions Head CT 03/18/24 09:42 IMPRESSION: 1. No evidence of acute intracranial hemorrhage or edematous territorial infarction. 2. Mild to moderate underlying microangiopathy. 3. Arachnoid cyst in the right middle cranial fossa. Electronically signed by: Mino Arriaga DO 03/18/2024 06:26 PM EST RP Head CT 03/19/24 01:36 IMPRESSION: 1. Left frontal scalp soft tissue swelling. 2. No acute intracranial process seen. 3. Stable right middle cranial fossa arachnoid cyst. Electronically signed by: Andreas Olsen MD 03/19/2024 02:08 AM EST RP Head CT 04/05/24 16:20 IMPRESSION: 1. No acute intracranial hemorrhage or mass effect. 2. Stable right middle cranial fossa arachnoid cyst. Electronically signed by: Getachew Arana MD 04/05/2024 05:15 PM EST RP KUB X-Ray 04/16/24 13:57 IMPRESSION: Nonobstructive bowel gas pattern. Large colonic and rectal fecal material. Electronically signed by: Chencho Ugalde MD 04/16/2024 02:13 PM [facility] Medications Medications Current Medications Acetaminophen (Acetaminophen 325 Mg Tablet) 650 mg PO Q6H PRN PRN Reason: Headache/Pain Mild Scale (1-3) Last Admin: 05/25/24 20:13 Dose: 650 mg Al Hydroxide/Mg Hydroxide (Magnesium Hydrox/Alum Hydrox 30 Ml Oral.Susp) 30 ml PO Q6H PRN PRN Reason: Heartburn/Nausea Clozapine (Clozapine 100 Mg Tablet) 100 mg PO DAILY [facility] Last Admin: 05/26/24 08:41 Dose: 100 mg Clozapine (Clozapine 100 Mg Tablet) 100 mg PO DAILY@1230 [facility] Last Admin: 05/26/24 11:57 Dose: 100 mg Clozapine (Clozapine 100 Mg Tablet) 200 mg PO BEDTIME [facility] Last Admin: 05/25/24 20:07 Dose: 200 mg Famotidine (Famotidine 20 Mg Tablet) 20 mg PO DAILY [facility] Last Admin: 05/26/24 08:41 Dose: 20 mg Hydrocortisone (Hydrocortisone 2.5 % Rectal Cr 30 Gm Tube) 1 appl [place] DAILY [facility] Last Admin: 05/26/24 08:44 Dose: Not Given Hydroxyzine HCl (Hydroxyzine Hcl 25 Mg Tablet) 25 mg PO Q6H PRN PRN Reason: Anxiety Last Admin: 05/25/24 20:08 Dose: 25 mg Lamotrigine (Lamotrigine 25 Mg Tablet) 50 mg PO BID [facility] Last Admin: 05/26/24 08:41 Dose: 50 mg Levothyroxine Sodium (Levothyroxine Sodium 75 Mcg Tablet) 75 mcg PO DAILY@0600 [facility] Last Admin: 05/26/24 06:04 Dose: 75 mcg Magnesium Hydroxide (Milk Of Magnesia 30 Ml Oral.Susp) 30 ml PO BID PRN PRN Reason: Constipation Last Admin: 05/14/24 09:14 Dose: 30 ml Mirtazapine (Mirtazapine 7.5 Mg Tablet) 7.5 mg PO BEDTIME [facility] Last Admin: 05/25/24 20:08 Dose: 7.5 mg Naloxone HCl (Naloxone Hcl 0.4 Mg/Ml Vial) 0.04 mg IVPUSH Q5M PRN PRN Reason: Excessive sedation or RR < 8 Nicotine Polacrilex (Nicotine Polacrilex 2 Mg Gum) 2 mg BUCCAL Q2H PRN PRN Reason: Nicotine Cravings Olanzapine (Olanzapine 5 Mg Tablet) 5 mg PO Q4H PRN PRN Reason: Psychosis Last Admin: 05/09/24 10:24 Dose: 5 mg Polyethylene Glycol (Polyethylene Glycol 3350 17 Gm Powd.Pack) 17 gm PO DAILY PRN PRN Reason: Constipation Last Admin: 04/18/24 00:24 Dose: 17 gm Polyethylene Glycol (Polyethylene Glycol 3350 17 Gm Powd.Pack) 17 gm PO DAILY [facility] Last Admin: 05/26/24 08:41 Dose: 17 gm Risperidone (Risperidone 3 Mg Tablet) 6 mg PO BID [facility] Last Admin: 05/26/24 08:40 Dose: 6 mg Senna (Sennosides 8.6 Mg Tablet) 8.6 mg PO DAILY [facility] Last Admin: 05/26/24 08:41 Dose: 8.6 mg Trazodone HCl (Trazodone Hcl 50 Mg Tablet) 50 mg PO BEDTIME MRX1 PRN PRN Reason: Insomnia Last Admin: 05/25/24 20:08 Dose: 50 mg Allergies Allergies Allergy/AdvReac Type Severity Reaction Status Date / Time trifluoperazine Allergy Unknown Verified 03/11/24 14:16 [From Stelazine] Assessment & Plan Assessment & Plan (1) Schizophrenia: Status: Acute Code(s): F20.9 - Schizophrenia, unspecified (2) Diverticulosis: Status: Chronic Code(s): K57.90 - Diverticulosis of intestine, part unspecified, without perforation or abscess without bleeding Plan Patient is a 73-year-old female with a PMH significant for HTN, post op VTE 2 years ago, hypothyroidism, and mood disorder who was admitted to [facility] after eloping from [facility] and walking into traffic on purpose. Patient apparently believes a friend is writing a horrible story about and does not want to live after everyone reads the book as she believes everyone will hate her. Hospitalist consult for ECT risk stratification. ECT risk stratification Previously underwent ECT without complications in 1998 Currently no significant medical complaints or PMH EKG from 7 days prior at time of admission negative for ischemia RCRI 0 points, class I risk Will repeat EKG before completing risk stratification Plan 1. Continue Risperdal 6 mg p.o. b.i.d.. 2. Clozaril has been changed to 100 mg p.o. b.i.d. and 200 mg p.o. q.h.s. to avoid over-sedation. 3. So far her psychosis had become stable. 4. ECT was considered and on May 13 the patient request this procedure since she reported she is feeling worse. We will try to schedule her ECT as soon as possible. 5. Referral for [facility] team. They assessed her on May 05 and stated that she is not at baseline but it seems that this is now her new baseline. So far she had not been assaultive for grossly disorganized after the medication changes and increase of Clozaril. 6. Family meeting next week to address the possibility of ECT and disposition. On May 13 her son who is the affirmed healthcare proxy signed herself in to ECT. 7. Zyprexa 5 mg p.o. q.6 hours PRNs hallucinations. 8. The patient is not at baseline at this moment we will continue with ECT. 9. Start Remeron 7.5 p.o. q.h.s. to target depression Reason for continued inpatient stay Substantial Risk for: inability to function, rapid decompensation and med/psych decompensation Time Spent With Patient Time: Total time managing care of this patient today _20___ minutes.
[2024-05-26 20:00] VITALS: BP 118/73; PULSE 88; RESP 18; TEMP 36.6; O2SAT 98
[2024-05-26] MEDS: traZODone HCL 50 MG TABLET PO (20:43)
[2024-05-26] MEDS: hydrOXYzine HCL 25 MG TABLET PO (20:44)
[2024-05-26] MEDS: Mirtazapine 7.5 MG TABLET PO (20:44)
[2024-05-26] MEDS: Acetaminophen 325 MG TABLET 650 MG PO (22:00)
[2024-05-26] MEDS: cloZAPine 100 MG TABLET 200 MG PO (22:00)
[2024-05-27] VITALS (10 sets, daily range): BP systolic 102–155; BP diastolic 60–85; PULSE 75–95; RESP 16–24; TEMP 36.1–36.8; O2SAT 95–98
--- NOTE | 2024-05-27 07:09 | MHC.SHP ---
Pre-Procedural Eval Section A - 24 Hr Update-Section A only Date of Service: 05/27/24 The patient is an INPATIENT: Yes Changes since office visit: No Cold of Flu in the past 2 weeks, No New Medical Problems, No Changes in Medication and No Patient answered all questions The patient has been examined within 24 hours of the surgical procedure. The History & Physical has been completed within 30 days and I have reviewed it.: Yes Section B - Complete if H&P > 30 days Chief Complaint: Psychosis Allergies: Allergies Allergy/AdvReac Type Severity Reaction Status Date / Time trifluoperazine Allergy Unknown Verified 03/11/24 14:16 [From Adrian] Plan I have reviewed the history and physical and performed a pertinent physical examination on my patient. No changes have occurred unless specified. Time Spent With Patient Time: Total time managing care of this patient today ____ minutes.
--- NOTE | 2024-05-27 07:36 | HO.ECTPROC ---
ECT Procedure Note Diagnosis/Treatment Date of Service: 05/27/24 Diagnosis: Schizoaffective Disorder Previous ECT Date: 05/25/24 Current Treatment Number: 6 Treatment: Series Interval Clinical Notes: The patient reported better mood, oversedated after last ECT, possible just post-ictal. Denies other side effects. ECT done as usual, short seizure that resolved by itself. No complications. Time: Total time managing care of this patient today ____ minutes. ECT Settings Device: THYMATRON DGx Electrode Placement: Bifrontal Program/Pulse Width: 0.50 Energy Percent: 100 Seizure Duration By EEG (in seconds): 0 (but seizure activity noted until 16s) By Motor Observation (in seconds): 14 Medications Administration General Anesthetic: Etomidate (12) Muscle Relaxant: Succinylcholine (80) Ancillary Medications Anti-emetics: Zofran - Pre ECT Airway Management Airway Management: Bag Mask Ventilation Treatment Recommendations No Changes Recommended: No change Pt Tolerated Procedure w/o Issue: Yes
[2024-05-27] MEDS: lamoTRIgine 25 MG TABLET 50 MG PO ×2 (09:00→20:33)
[2024-05-27] MEDS: Sennosides 8.6 MG TABLET PO (09:01)
[2024-05-27] MEDS: cloZAPine 100 MG TABLET PO ×2 (09:01→12:04)
[2024-05-27] MEDS: risperiDONE 3 MG TABLET 6 MG PO ×2 (09:01→20:32)
[2024-05-27] MEDS: Famotidine 20 MG TABLET PO (09:02)
[2024-05-27] MEDS: polyethylene glycoL 3350 17 GM POWD.PACK PO (09:03)
[2024-05-27 10:49] LABS: Neut%MD 85.4 %; Neutrophils Absolute Auto 8.1 x10*3/uL (2.0-8.3); WBCANC 9.5 X10*3/uL
--- NOTE | 2024-05-27 11:49 | HO.ANESPROP2 ---
HPI - Anesthesia Eval Consult details Narrative: 74 yo female patient for ECT PMFSH Active Problems Active Problems: All Active Problems Arachnoid cyst (Acute) Diverticulosis (Chronic) Pre-op evaluation (Acute) Schizophrenia (Acute) Suicidal ideation (Acute) Past Medical History Medical History Diverticulosis Schizophrenia CKD (chronic kidney disease) Hyperlipidemia Type 2 diabetes mellitus Hypothyroidism HTN (hypertension) GERD (gastroesophageal reflux disease) Mood disorder Family History Family history of problems with anesthesia: No Surgical History History of Problems with Anesthesia: No Social History Social History Household Members: None Household Members Other:: Lives at [facility] Housing: Assisted Living Facility Do you presently have visiting nurse or other home services: Yes Alcohol intake: current Patient Tobacco Use Status: Former Tobacco user Tobacco use type: Cigarette Cigarette Packs Per Day: 3 Cigarettes Per Day: 60.0 Years Smoked: 16 Smoked in Last 30 Days: No Patient Interested in Nicotine Replacement: No Second Hand Smoke Exposure: No Use of substances other than those prescribed or required for medical reasons: No Currently Displaying Signs/Symptoms of Drug Intoxication Withdrawal: No Have you been hit, kicked, punched, or otherwise hurt by someone within the past year? If so, by whom?: No Do you feel safe in your current relationship?: No Current Relationship Is there a partner from a previous relationship who is making you feel unsafe now?: No Are you made to feel afraid or neglected: Yes (Pt reports she is afraid of the person writing the book about her.) Advance Directives: No Advance Directives Information Provided: Yes Do you have thoughts of harming others: None Do you have a plan to hurt others: No Plan Recently lost weight without trying: Unsure Nutrition Risks: No Nutritional Risk Patient : No : No Poor oral hygiene: No service: No Sexual orientation: Straight/Heterosexual Meds Allergies Allergy/AdvReac Type Severity Reaction Status Date / Time trifluoperazine Allergy Unknown Verified 03/11/24 14:16 [From Stelazine] Active Medications: Current Medications Acetaminophen (Acetaminophen 325 Mg Tablet) 650 mg PO Q6H PRN PRN Reason: Headache/Pain Mild Scale (1-3) Last Admin: 05/26/24 22:00 Dose: 650 mg Al Hydroxide/Mg Hydroxide (Magnesium Hydrox/Alum Hydrox 30 Ml Oral.Susp) 30 ml PO Q6H PRN PRN Reason: Heartburn/Nausea Clozapine (Clozapine 100 Mg Tablet) 100 mg PO DAILY [facility] Last Admin: 05/27/24 09:01 Dose: 100 mg Clozapine (Clozapine 100 Mg Tablet) 100 mg PO DAILY@1230 [facility] Last Admin: 05/26/24 11:57 Dose: 100 mg Clozapine (Clozapine 100 Mg Tablet) 200 mg PO BEDTIME [facility] Last Admin: 05/26/24 22:00 Dose: 200 mg Famotidine (Famotidine 20 Mg Tablet) 20 mg PO DAILY [facility] Last Admin: 05/27/24 09:02 Dose: 20 mg Hydrocortisone (Hydrocortisone 2.5 % Rectal Cr 30 Gm Tube) 1 appl [place] DAILY [facility] Last Admin: 05/27/24 09:03 Dose: Not Given Hydroxyzine HCl (Hydroxyzine Hcl 25 Mg Tablet) 25 mg PO Q6H PRN PRN Reason: Anxiety Last Admin: 05/26/24 20:44 Dose: 25 mg Lamotrigine (Lamotrigine 25 Mg Tablet) 50 mg PO BID [facility] Last Admin: 05/27/24 09:00 Dose: 50 mg Levothyroxine Sodium (Levothyroxine Sodium 75 Mcg Tablet) 75 mcg PO DAILY@0600 [facility] Last Admin: 05/27/24 06:45 Dose: Not Given Magnesium Hydroxide (Milk Of Magnesia 30 Ml Oral.Susp) 30 ml PO BID PRN PRN Reason: Constipation Last Admin: 05/14/24 09:14 Dose: 30 ml Mirtazapine (Mirtazapine 7.5 Mg Tablet) 7.5 mg PO BEDTIME [facility] Last Admin: 05/26/24 20:44 Dose: 7.5 mg Nicotine Polacrilex (Nicotine Polacrilex 2 Mg Gum) 2 mg BUCCAL Q2H PRN PRN Reason: Nicotine Cravings Olanzapine (Olanzapine 5 Mg Tablet) 5 mg PO Q4H PRN PRN Reason: Psychosis Last Admin: 05/09/24 10:24 Dose: 5 mg Polyethylene Glycol (Polyethylene Glycol 3350 17 Gm Powd.Pack) 17 gm PO DAILY PRN PRN Reason: Constipation Last Admin: 04/18/24 00:24 Dose: 17 gm Polyethylene Glycol (Polyethylene Glycol 3350 17 Gm Powd.Pack) 17 gm PO DAILY [facility] Last Admin: 05/27/24 09:03 Dose: 17 gm Risperidone (Risperidone 3 Mg Tablet) 6 mg PO BID [facility] Last Admin: 05/27/24 09:01 Dose: 6 mg Senna (Sennosides 8.6 Mg Tablet) 8.6 mg PO DAILY [facility] Last Admin: 05/27/24 09:01 Dose: 8.6 mg Trazodone HCl (Trazodone Hcl 50 Mg Tablet) 50 mg PO BEDTIME MRX1 PRN PRN Reason: Insomnia Last Admin: 05/26/24 20:43 Dose: 50 mg Home Medications ?Medication ?Instructions ?Recorded ?Confirmed ?Last Taken ?Type clozapine 100 mg tablet 100 mg PO DAILY 03/11/24 03/11/24 03/11/24 History clozapine 100 mg tablet 300 mg PO BEDTIME 03/11/24 03/11/24 03/10/24 History famotidine 20 mg tablet 20 mg PO DAILY 03/11/24 03/11/24 03/11/24 History lamotrigine 25 mg tablet 50 mg PO BID 03/11/24 03/11/24 03/11/24 History levothyroxine 75 mcg tablet 75 mcg PO DAILY 03/11/24 03/11/24 03/11/24 History risperidone 2 mg tablet 6 mg PO BID 03/11/24 03/11/24 03/11/24 History sennosides 8.6 mg tablet (senna) 8.6 mg PO DAILY PRN Constipation 03/11/24 03/11/24 Unknown History Exam Height,Weight and Vital Signs: Height 5 ft 6 in Weight 72.121 kg Last Vital Signs Temp 97.4 F 05/27/24 06:41 Pulse 75 05/27/24 06:41 Resp 16 05/27/24 06:41 BP 124/75 05/27/24 06:41 Pulse Ox 98 05/27/24 06:41 O2 Del Method Room Air 05/27/24 06:41 O2 Flow Rate Pertinent Lab Results Pertinent Lab Results: Laboratory Tests 03/11/24 03/11/24 03/12/24 11:07 13:25 13:15 WBC 7.8 RBC 3.77 L Hgb 11.6 L Hct 34.5 L MCV 91.5 MCH 30.8 MCHC 33.6 RDW 14.8 Plt Count 205 MPV 10.3 Immature Gran % (Auto) 0.4 Neut % (Auto) 80.2 H Lymph % (Auto) 9.8 L [place] % (Auto) 8.6 Eos % (Auto) 0.5 Baso % (Auto) 0.5 Lymph # (Auto) 0.8 L [place] # (Auto) 0.7 Eos # (Auto) 0.0 Baso # (Auto) 0.0 Abs Immat Gran (auto) 0.03 Absolute Neuts (auto) 6.2 Absolute Nucleated RBC 0.000 Nucleated RBC % (auto) 0.0 Sodium 141 Potassium 4.2 Chloride 107 Carbon Dioxide 24 Anion Gap 14 BUN 18 H Creatinine 1.47 H Estim Creat Clear Calc 36.2 Estimated GFR 35 POC Glucose 118 H Random Glucose 119 H Fasting Glucose Estimat Average Glucose Hemoglobin A1c % Calcium 9.8 Magnesium Total Bilirubin 0.3 AST 20 ALT 16 Alkaline Phosphatase 90 Total Protein 6.0 L Albumin 4.0 Triglycerides Cholesterol LDL Cholesterol, Calc HDL Cholesterol Vitamin B12 Folate TSH Urine Color Yellow Urine Appearance Clear Urine pH 6.5 Ur Specific [place] <= 1.005 Urine Protein Negative Urine Glucose (UA) Negative Urine Ketones Negative Urine Blood Negative Urine Nitrite Negative Ur Leukocyte Esterase Small (1+) H Urine RBC 0-2 Urine WBC 0-5 Ur Squamous Epith Cells 0-2 Urine Bacteria None Seen Hyaline Casts 0-2 Urine Opiates Screen Not Detected Ur Buprenorphine Scrn Not Detected Ur Oxycodone Screen Not Detected Urine Methadone Screen Not Detected Urine Fentanyl Screen Not Detected Ur Barbiturates Screen Not Detected Ur Phencyclidine Scrn Not Detected Ur Amphetamines Screen Not Detected U Benzodiazepines Scrn Not Detected Urine Cocaine Screen Not Detected U Marijuana (THC) Screen Not Detected Ethyl Alcohol < 10 03/13/24 03/18/24 03/25/24 08:18 07:57 08:12 WBC RBC Hgb Hct MCV MCH MCHC RDW Plt Count MPV Immature Gran % (Auto) Neut % (Auto) Lymph % (Auto) [place] % (Auto) Eos % (Auto) Baso % (Auto) Lymph # (Auto) [place] # (Auto) Eos # (Auto) Baso # (Auto) Abs Immat Gran (auto) Absolute Neuts (auto) 4.2 3.3 Absolute Nucleated RBC Nucleated RBC % (auto) Sodium 142 Potassium 4.0 Chloride 108 Carbon Dioxide 28 Anion Gap 10 L BUN 23 H Creatinine 1.46 H Estim Creat Clear Calc 36.5 Estimated GFR 35 POC Glucose Random Glucose Fasting Glucose 114 H Estimat Average Glucose 114 Hemoglobin A1c % 5.6 Calcium 9.8 Magnesium 2.3 Total Bilirubin 0.4 AST 16 ALT 10 Alkaline Phosphatase 85 Total Protein 5.8 L Albumin 4.0 Triglycerides 133 Cholesterol 218 H LDL Cholesterol, Calc 144 H HDL Cholesterol 48 Vitamin B12 443 Folate 10.9 TSH 3.25 Urine Color Urine Appearance Urine pH Ur Specific [place] Urine Protein Urine Glucose (UA) Urine Ketones Urine Blood Urine Nitrite Ur Leukocyte Esterase Urine RBC Urine WBC Ur Squamous Epith Cells Urine Bacteria Hyaline Casts Urine Opiates Screen Ur Buprenorphine Scrn Ur Oxycodone Screen Urine Methadone Screen Urine Fentanyl Screen Ur Barbiturates Screen Ur Phencyclidine Scrn Ur Amphetamines Screen U Benzodiazepines Scrn Urine Cocaine Screen U Marijuana (THC) Screen Ethyl Alcohol 04/03/24 04/05/24 04/05/24 07:40 15:20 15:38 WBC 6.6 RBC 3.94 L Hgb 12.0 Hct 35.8 L MCV 90.9 MCH 30.5 MCHC 33.5 RDW 13.7 Plt Count 208 MPV 10.5 Immature Gran % (Auto) Neut % (Auto) Lymph % (Auto) [place] % (Auto) Eos % (Auto) Baso % (Auto) Lymph # (Auto) [place] # (Auto) Eos # (Auto) Baso # (Auto) Abs Immat Gran (auto) Absolute Neuts (auto) 5.0 Absolute Nucleated RBC 0.000 Nucleated RBC % (auto) 0.0 Sodium 144 Potassium 3.5 Chloride 106 Carbon Dioxide 25 Anion Gap 17 BUN 17 H Creatinine 1.50 H Estim Creat Clear Calc 37.2 Estimated GFR 34 POC Glucose 100 Random Glucose 74 Fasting Glucose Estimat Average Glucose Hemoglobin A1c % Calcium 9.8 Magnesium Total Bilirubin 0.4 AST 21 ALT 8 Alkaline Phosphatase 127 H Total Protein 5.8 L Albumin 3.9 Triglycerides Cholesterol LDL Cholesterol, Calc HDL Cholesterol Vitamin B12 Folate TSH Urine Color Urine Appearance Urine pH Ur Specific [place] Urine Protein Urine Glucose (UA) Urine Ketones Urine Blood Urine Nitrite Ur Leukocyte Esterase Urine RBC Urine WBC Ur Squamous Epith Cells Urine Bacteria Hyaline Casts Urine Opiates Screen Ur Buprenorphine Scrn Ur Oxycodone Screen Urine Methadone Screen Urine Fentanyl Screen Ur Barbiturates Screen Ur Phencyclidine Scrn Ur Amphetamines Screen U Benzodiazepines Scrn Urine Cocaine Screen U Marijuana (THC) Screen Ethyl Alcohol 04/12/24 04/15/24 04/22/24 08:30 08:26 07:29 WBC RBC Hgb Hct MCV MCH MCHC RDW Plt Count MPV Immature Gran % (Auto) Neut % (Auto) Lymph % (Auto) [place] % (Auto) Eos % (Auto) Baso % (Auto) Lymph # (Auto) [place] # (Auto) Eos # (Auto) Baso # (Auto) Abs Immat Gran (auto) Absolute Neuts (auto) 3.7 6.0 3.4 Absolute Nucleated RBC Nucleated RBC % (auto) Sodium Potassium Chloride Carbon Dioxide Anion Gap BUN Creatinine Estim Creat Clear Calc Estimated GFR POC Glucose Random Glucose Fasting Glucose Estimat Average Glucose Hemoglobin A1c % Calcium Magnesium Total Bilirubin AST ALT Alkaline Phosphatase Total Protein Albumin Triglycerides Cholesterol LDL Cholesterol, Calc HDL Cholesterol Vitamin B12 Folate TSH Urine Color Urine Appearance Urine pH Ur Specific [place] Urine Protein Urine Glucose (UA) Urine Ketones Urine Blood Urine Nitrite Ur Leukocyte Esterase Urine RBC Urine WBC Ur Squamous Epith Cells Urine Bacteria Hyaline Casts Urine Opiates Screen Ur Buprenorphine Scrn Ur Oxycodone Screen Urine Methadone Screen Urine Fentanyl Screen Ur Barbiturates Screen Ur Phencyclidine Scrn Ur Amphetamines Screen U Benzodiazepines Scrn Urine Cocaine Screen U Marijuana (THC) Screen Ethyl Alcohol 04/29/24 05/06/24 05/13/24 08:53 08:22 08:34 WBC RBC Hgb Hct MCV MCH MCHC RDW Plt Count MPV Immature Gran % (Auto) Neut % (Auto) Lymph % (Auto) [place] % (Auto) Eos % (Auto) Baso % (Auto) Lymph # (Auto) [place] # (Auto) Eos # (Auto) Baso # (Auto) Abs Immat Gran (auto) Absolute Neuts (auto) 6.0 3.7 4.6 Absolute Nucleated RBC Nucleated RBC % (auto) Sodium Potassium Chloride Carbon Dioxide Anion Gap BUN Creatinine Estim Creat Clear Calc Estimated GFR POC Glucose Random Glucose Fasting Glucose Estimat Average Glucose Hemoglobin A1c % Calcium Magnesium Total Bilirubin AST ALT Alkaline Phosphatase Total Protein Albumin Triglycerides Cholesterol LDL Cholesterol, Calc HDL Cholesterol Vitamin B12 Folate TSH Urine Color Urine Appearance Urine pH Ur Specific [place] Urine Protein Urine Glucose (UA) Urine Ketones Urine Blood Urine Nitrite Ur Leukocyte Esterase Urine RBC Urine WBC Ur Squamous Epith Cells Urine Bacteria Hyaline Casts Urine Opiates Screen Ur Buprenorphine Scrn Ur Oxycodone Screen Urine Methadone Screen Urine Fentanyl Screen Ur Barbiturates Screen Ur Phencyclidine Scrn Ur Amphetamines Screen U Benzodiazepines Scrn Urine Cocaine Screen U Marijuana (THC) Screen Ethyl Alcohol 05/20/24 05/27/24 10:23 10:43 WBC RBC Hgb Hct MCV MCH MCHC RDW Plt Count MPV Immature Gran % (Auto) Neut % (Auto) Lymph % (Auto) [place] % (Auto) Eos % (Auto) Baso % (Auto) Lymph # (Auto) [place] # (Auto) Eos # (Auto) Baso # (Auto) Abs Immat Gran (auto) Absolute Neuts (auto) 5.4 8.1 Absolute Nucleated RBC Nucleated RBC % (auto) Sodium Potassium Chloride Carbon Dioxide Anion Gap BUN Creatinine Estim Creat Clear Calc Estimated GFR POC Glucose Random Glucose Fasting Glucose Estimat Average Glucose Hemoglobin A1c % Calcium Magnesium Total Bilirubin AST ALT Alkaline Phosphatase Total Protein Albumin Triglycerides Cholesterol LDL Cholesterol, Calc HDL Cholesterol Vitamin B12 Folate TSH Urine Color Urine Appearance Urine pH Ur Specific [place] Urine Protein Urine Glucose (UA) Urine Ketones Urine Blood Urine Nitrite Ur Leukocyte Esterase Urine RBC Urine WBC Ur Squamous Epith Cells Urine Bacteria Hyaline Casts Urine Opiates Screen Ur Buprenorphine Scrn Ur Oxycodone Screen Urine Methadone Screen Urine Fentanyl Screen Ur Barbiturates Screen Ur Phencyclidine Scrn Ur Amphetamines Screen U Benzodiazepines Scrn Urine Cocaine Screen U Marijuana (THC) Screen Ethyl Alcohol Airway Mallampati Class: III (Small mouth) TM Dist: >3cm Neck ROM: Full Loose/Missing/Broken Teeth: Yes (Many missing. Partial dentures out. Poor dentition- ground down. Broken tooth with filling top keft)) Heart: RRR Lungs: CTAB Assessment and Plan Assessment Anesthesia Assessment: Anesthesia Plan Discussed and Chart Reviewed Final Anesthetic Review Family History of Problems with Anesthesia: No History of Problems with Anesthesia: No NPO: Yes ASA Class: III Final Preanesthetic Review: No Changes in Pt Med Stat, Meds/Allgs Chart Reviewed, Consent Obtained/Reviewed and Anes Risks/Benef Reviewed Patient Risk: Intermediate Procedure Risk: Intermediate Assessment/Block/Sedation in SS: Assess/Block/Sedation-SS Anesthetic Plan Anesthetic Plan: GA Disposition: Standard PACU
[2024-05-27] MEDS: Acetaminophen 325 MG TABLET 650 MG PO ×2 (12:14→20:55)
--- NOTE | 2024-05-27 14:38 | P.PNPSI_ITS ---
Subjective Subjective Date of Service: 05/27/24 Reason For Visit: Psychosis Subjective Notes: Conditional Voluntary Interim History: Nursing staff reported the patient had been isolative, she had ECT today in the morning. The patient was seen more verbal, she participate on one-to-one with the occupational therapist. On interview the patient reported that she feels a little sedated after ECT. Overall she looks much better. Mental Status Exam Mental Status Exam Patient Appearance: Appropriate Patient Orientation: Person Level of Consciousness: Awake and Appropriate Patient Behavior: Guarded and Passive Mood Description: Constricted Affect Description: Calm Patient Cognition Impaired: Yes Ability to Follow Directions: Good Speech Pattern: Clear Hallucinations: Auditory Delusions: Paranoid Ideation and Ideas of Reference Thought Process: Distracted and Slowed Thinking Thought Content: positive for [place] and positive for Poverty of Content Judgement: Fair Diagnostics Vital Signs (24Hr): Vital Signs - 24 hr 05/26/24 20:00 05/27/24 05:49 05/27/24 06:41 Temperature 97.8 F 98.0 F 97.4 F Pulse Rate 88 95 75 Respiratory Rate 18 18 16 Blood Pressure 118/73 121/68 124/75 Pulse Oximetry 98 98 98 Oxygen Delivery Method Room Air Room Air Oxygen Flow Rate 05/27/24 07:44 05/27/24 07:45 05/27/24 07:50 Temperature 97.4 F Pulse Rate 93 93 92 Respiratory Rate 24 H 21 H 18 Blood Pressure 155/85 H 126/64 126/64 Pulse Oximetry 95 95 95 Oxygen Delivery Method Nasal Cannula Nasal Cannula Nasal Cannula Oxygen Flow Rate 4 4 4 05/27/24 07:55 05/27/24 08:10 05/27/24 08:25 Temperature 97 F Pulse Rate 92 91 90 Respiratory Rate 18 18 18 Blood Pressure 117/66 108/68 103/60 Pulse Oximetry 95 95 95 Oxygen Delivery Method Nasal Cannula Room Air Oxygen Flow Rate 4 05/27/24 08:55 05/27/24 08:59 Temperature 98.2 F 98.2 F Pulse Rate 89 89 Respiratory Rate 20 20 Blood Pressure 102/61 102/61 Pulse Oximetry 96 96 Oxygen Delivery Method Room Air Oxygen Flow Rate BMI result Body Mass Index 25.7 Labs 04/05/24 15:38 04/05/24 15:38 Labs: Laboratory Results - last 48 hr 05/27/24 10:43 Absolute Neuts (auto) 8.1 Imaging Radiology Impressions: ITS Impressions Head CT 03/18/24 09:42 IMPRESSION: 1. No evidence of acute intracranial hemorrhage or edematous territorial infarction. 2. Mild to moderate underlying microangiopathy. 3. Arachnoid cyst in the right middle cranial fossa. Electronically signed by: Mino Arriaga DO 03/18/2024 06:26 PM EST RP Head CT 03/19/24 01:36 IMPRESSION: 1. Left frontal scalp soft tissue swelling. 2. No acute intracranial process seen. 3. Stable right middle cranial fossa arachnoid cyst. Electronically signed by: Andreas Olsen MD 03/19/2024 02:08 AM EST RP Head CT 04/05/24 16:20 IMPRESSION: 1. No acute intracranial hemorrhage or mass effect. 2. Stable right middle cranial fossa arachnoid cyst. Electronically signed by: Getachew Arana MD 04/05/2024 05:15 PM EST RP KUB X-Ray 04/16/24 13:57 IMPRESSION: Nonobstructive bowel gas pattern. Large colonic and rectal fecal material. Electronically signed by: Chencho Ugalde MD 04/16/2024 02:13 PM EST RP Medications Medications Current Medications Acetaminophen (Acetaminophen 325 Mg Tablet) 650 mg PO Q6H PRN PRN Reason: Headache/Pain Mild Scale (1-3) Last Admin: 05/27/24 12:14 Dose: 650 mg Al Hydroxide/Mg Hydroxide (Magnesium Hydrox/Alum Hydrox 30 Ml Oral.Susp) 30 ml PO Q6H PRN PRN Reason: Heartburn/Nausea Clozapine (Clozapine 100 Mg Tablet) 100 mg PO DAILY [facility] Last Admin: 05/27/24 09:01 Dose: 100 mg Clozapine (Clozapine 100 Mg Tablet) 100 mg PO DAILY@1230 [facility] Last Admin: 05/27/24 12:04 Dose: 100 mg Clozapine (Clozapine 100 Mg Tablet) 200 mg PO BEDTIME [facility] Last Admin: 05/26/24 22:00 Dose: 200 mg Famotidine (Famotidine 20 Mg Tablet) 20 mg PO DAILY [facility] Last Admin: 05/27/24 09:02 Dose: 20 mg Hydrocortisone (Hydrocortisone 2.5 % Rectal Cr 30 Gm Tube) 1 appl ND DAILY [facility] Last Admin: 05/27/24 09:03 Dose: Not Given Hydroxyzine HCl (Hydroxyzine Hcl 25 Mg Tablet) 25 mg PO Q6H PRN PRN Reason: Anxiety Last Admin: 05/26/24 20:44 Dose: 25 mg Lactated Ringer's (Lr) 1,000 mls @ 50 mls/hr IVCONT .Q20H [facility] Lamotrigine (Lamotrigine 25 Mg Tablet) 50 mg PO BID [facility] Last Admin: 05/27/24 09:00 Dose: 50 mg Levothyroxine Sodium (Levothyroxine Sodium 75 Mcg Tablet) 75 mcg PO DAILY@0600 [facility] Last Admin: 05/27/24 06:45 Dose: Not Given Magnesium Hydroxide (Milk Of Magnesia 30 Ml Oral.Susp) 30 ml PO BID PRN PRN Reason: Constipation Last Admin: 05/14/24 09:14 Dose: 30 ml Mirtazapine (Mirtazapine 7.5 Mg Tablet) 7.5 mg PO BEDTIME [facility] Last Admin: 05/26/24 20:44 Dose: 7.5 mg Nicotine Polacrilex (Nicotine Polacrilex 2 Mg Gum) 2 mg BUCCAL Q2H PRN PRN Reason: Nicotine Cravings Olanzapine (Olanzapine 5 Mg Tablet) 5 mg PO Q4H PRN PRN Reason: Psychosis Last Admin: 05/09/24 10:24 Dose: 5 mg Polyethylene Glycol (Polyethylene Glycol 3350 17 Gm Powd.Pack) 17 gm PO DAILY PRN PRN Reason: Constipation Last Admin: 04/18/24 00:24 Dose: 17 gm Polyethylene Glycol (Polyethylene Glycol 3350 17 Gm Powd.Pack) 17 gm PO DAILY [facility] Last Admin: 05/27/24 09:03 Dose: 17 gm Risperidone (Risperidone 3 Mg Tablet) 6 mg PO BID [facility] Last Admin: 05/27/24 09:01 Dose: 6 mg Senna (Sennosides 8.6 Mg Tablet) 8.6 mg PO DAILY [facility] Last Admin: 05/27/24 09:01 Dose: 8.6 mg Trazodone HCl (Trazodone Hcl 50 Mg Tablet) 50 mg PO BEDTIME MRX1 PRN PRN Reason: Insomnia Last Admin: 05/26/24 20:43 Dose: 50 mg Allergies Allergies Allergy/AdvReac Type Severity Reaction Status Date / Time trifluoperazine Allergy Unknown Verified 03/11/24 14:16 [From Stelazine] Assessment & Plan Assessment & Plan (1) Schizophrenia: Status: Acute Code(s): F20.9 - Schizophrenia, unspecified (2) Diverticulosis: Status: Chronic Code(s): K57.90 - Diverticulosis of intestine, part unspecified, without perforation or abscess without bleeding Plan Patient is a 73-year-old female with a PMH significant for HTN, post op VTE 2 years ago, hypothyroidism, and mood disorder who was admitted to [facility] after eloping from [facility] and walking into traffic on purpose. Patient apparently believes a friend is writing a horrible story about and does not want to live after everyone reads the book as she believes everyone will hate her. Hospitalist consult for ECT risk stratification. ECT risk stratification Previously underwent ECT without complications in 1998 Currently no significant medical complaints or PMH EKG from 7 days prior at time of admission negative for ischemia RCRI 0 points, class I risk Will repeat EKG before completing risk stratification Plan 1. Continue Risperdal 6 mg p.o. b.i.d.. 2. Clozaril has been changed to 100 mg p.o. b.i.d. and 200 mg p.o. q.h.s. to avoid over-sedation. 3. So far her psychosis had become stable. 4. ECT was considered and on May 13 the patient request this procedure since she reported she is feeling worse. We will try to schedule her ECT as soon as possible. 5. Referral for [facility] team. They assessed her on May 05 and stated that she is not at baseline but it seems that this is now her new baseline. So far she had not been assaultive for grossly disorganized after the medication changes and increase of Clozaril. 6. Family meeting next week to address the possibility of ECT and disposition. On May 13 her son who is the affirmed healthcare proxy signed herself in to ECT. 7. Zyprexa 5 mg p.o. q.6 hours PRNs hallucinations. 8. The patient is not at baseline at this moment we will continue with ECT. 9. Start Remeron 7.5 p.o. q.h.s. to target depression Reason for continued inpatient stay Substantial Risk for: inability to function, rapid decompensation and med/psych decompensation Time Spent With Patient Time: Total time managing care of this patient today __20__ minutes.
[2024-05-27] MEDS: Mirtazapine 7.5 MG TABLET PO (20:31)
[2024-05-27] MEDS: cloZAPine 100 MG TABLET 200 MG PO (20:32)
[2024-05-28 07:00] VITALS: BMI 26.5
[2024-05-28] MEDS: Levothyroxine Sodium 75 MCG TABLET PO (07:46)
[2024-05-28 08:00] VITALS: BP 122/60; PULSE 79; RESP 18; TEMP 36.8; O2SAT 99
--- NOTE | 2024-05-28 08:45 | HO.POSTANES ---
Post Anesthesia Evaluation Post Anesthesia Evaluation Date of Service: 05/28/24 Anesthesia: General Mental Status: Awake Pain Control: Satisfactory Nausea/Vomiting: None Hydration: Adequate Anesthesia-Related Issues: No Anes. Related Issues
[2024-05-28] MEDS: risperiDONE 3 MG TABLET 6 MG PO ×2 (09:43→21:30)
[2024-05-28] MEDS: cloZAPine 100 MG TABLET PO ×2 (09:44→12:54)
[2024-05-28] MEDS: Sennosides 8.6 MG TABLET PO (09:44)
[2024-05-28] MEDS: Famotidine 20 MG TABLET PO (09:44)
[2024-05-28] MEDS: lamoTRIgine 25 MG TABLET 50 MG PO ×2 (09:44→21:31)
[2024-05-28] MEDS: Acetaminophen 325 MG TABLET 650 MG PO (09:52)
--- NOTE | 2024-05-28 15:14 | HO.PSYCHPN ---
Subjective Subjective Date of Service: 05/28/24 Reason For Visit: Psychosis Subjective Notes: Conditional Voluntary Interim History: The nursing staff reported the patient has a brighter affect, she was nauseous after ECT. The community team meeting saw her and reported that she was much better. On interview the patient denies new symptoms she states that she is feeling better and and likes to continue to have ECT. Mental Status Exam Mental Status Exam Patient Appearance: Well Grooomed Patient Orientation: Person and Situation Level of Consciousness: Awake and Appropriate Patient Behavior: Guarded and Passive Mood Description: Withdrawn Affect Description: Constricted Patient Cognition Impaired: Yes Ability to Follow Directions: Good Speech Pattern: Clear Hallucinations: Auditory Delusions: Paranoid Ideation and Ideas of Reference Thought Process: Distracted and Slowed Thinking Thought Content: positive for [place] and positive for Poverty of Content Judgement: Fair Diagnostics Vital Signs (24Hr): Vital Signs - 24 hr 05/28/24 08:00 Temperature 98.3 F Pulse Rate 79 Respiratory Rate 18 Blood Pressure 122/60 Pulse Oximetry 99 Oxygen Delivery Method Room Air BMI result Body Mass Index 25.7 Labs 04/05/24 15:38 04/05/24 15:38 Labs: Laboratory Results - last 48 hr 05/27/24 10:43 Absolute Neuts (auto) 8.1 Imaging Radiology Impressions: ITS Impressions Head CT 03/18/24 09:42 IMPRESSION: 1. No evidence of acute intracranial hemorrhage or edematous territorial infarction. 2. Mild to moderate underlying microangiopathy. 3. Arachnoid cyst in the right middle cranial fossa. Electronically signed by: Mino Arriaga DO 03/18/2024 06:26 PM EST RP Head CT 03/19/24 01:36 IMPRESSION: 1. Left frontal scalp soft tissue swelling. 2. No acute intracranial process seen. 3. Stable right middle cranial fossa arachnoid cyst. Electronically signed by: Andreas Olsen MD 03/19/2024 02:08 AM EST RP Head CT 04/05/24 16:20 IMPRESSION: 1. No acute intracranial hemorrhage or mass effect. 2. Stable right middle cranial fossa arachnoid cyst. Electronically signed by: Getachew Arana MD 04/05/2024 05:15 PM EST RP KUB X-Ray 04/16/24 13:57 IMPRESSION: Nonobstructive bowel gas pattern. Large colonic and rectal fecal material. Electronically signed by: Chencho Ugalde MD 04/16/2024 02:13 PM [facility] Medications Medications Current Medications Acetaminophen (Acetaminophen 325 Mg Tablet) 650 mg PO Q6H PRN PRN Reason: Headache/Pain Mild Scale (1-3) Last Admin: 05/28/24 09:52 Dose: 650 mg Al Hydroxide/Mg Hydroxide (Magnesium Hydrox/Alum Hydrox 30 Ml Oral.Susp) 30 ml PO Q6H PRN PRN Reason: Heartburn/Nausea Clozapine (Clozapine 100 Mg Tablet) 100 mg PO DAILY [facility] Last Admin: 05/28/24 09:44 Dose: 100 mg Clozapine (Clozapine 100 Mg Tablet) 100 mg PO DAILY@1230 [facility] Last Admin: 05/28/24 12:54 Dose: 100 mg Clozapine (Clozapine 100 Mg Tablet) 200 mg PO BEDTIME [facility] Last Admin: 05/27/24 20:32 Dose: 200 mg Famotidine (Famotidine 20 Mg Tablet) 20 mg PO DAILY [facility] Last Admin: 05/28/24 09:44 Dose: 20 mg Hydrocortisone (Hydrocortisone 2.5 % Rectal Cr 30 Gm Tube) 1 appl MT DAILY [facility] Last Admin: 05/28/24 09:48 Dose: Not Given Hydroxyzine HCl (Hydroxyzine Hcl 25 Mg Tablet) 25 mg PO Q6H PRN PRN Reason: Anxiety Last Admin: 05/26/24 20:44 Dose: 25 mg Lamotrigine (Lamotrigine 25 Mg Tablet) 50 mg PO BID [facility] Last Admin: 05/28/24 09:44 Dose: 50 mg Levothyroxine Sodium (Levothyroxine Sodium 75 Mcg Tablet) 75 mcg PO DAILY@0600 [facility] Last Admin: 05/28/24 07:46 Dose: 75 mcg Magnesium Hydroxide (Milk Of Magnesia 30 Ml Oral.Susp) 30 ml PO BID PRN PRN Reason: Constipation Last Admin: 05/14/24 09:14 Dose: 30 ml Mirtazapine (Mirtazapine 7.5 Mg Tablet) 7.5 mg PO BEDTIME [facility] Last Admin: 05/27/24 20:31 Dose: 7.5 mg Nicotine Polacrilex (Nicotine Polacrilex 2 Mg Gum) 2 mg BUCCAL Q2H PRN PRN Reason: Nicotine Cravings Olanzapine (Olanzapine 5 Mg Tablet) 5 mg PO Q4H PRN PRN Reason: Psychosis Last Admin: 05/09/24 10:24 Dose: 5 mg Polyethylene Glycol (Polyethylene Glycol 3350 17 Gm Powd.Pack) 17 gm PO DAILY PRN PRN Reason: Constipation Last Admin: 04/18/24 00:24 Dose: 17 gm Polyethylene Glycol (Polyethylene Glycol 3350 17 Gm Powd.Pack) 17 gm PO DAILY [facility] Last Admin: 05/28/24 09:48 Dose: Not Given Risperidone (Risperidone 3 Mg Tablet) 6 mg PO BID [facility] Last Admin: 05/28/24 09:43 Dose: 6 mg Senna (Sennosides 8.6 Mg Tablet) 8.6 mg PO DAILY [facility] Last Admin: 05/28/24 09:44 Dose: 8.6 mg Trazodone HCl (Trazodone Hcl 50 Mg Tablet) 50 mg PO BEDTIME MRX1 PRN PRN Reason: Insomnia Last Admin: 05/26/24 20:43 Dose: 50 mg Allergies Allergies Allergy/AdvReac Type Severity Reaction Status Date / Time trifluoperazine Allergy Unknown Verified 03/11/24 14:16 [From Stelazine] Assessment & Plan Assessment & Plan (1) Schizophrenia: Status: Acute Code(s): F20.9 - Schizophrenia, unspecified (2) Diverticulosis: Status: Chronic Code(s): K57.90 - Diverticulosis of intestine, part unspecified, without perforation or abscess without bleeding Plan Patient is a 73-year-old female with a PMH significant for HTN, post op VTE 2 years ago, hypothyroidism, and mood disorder who was admitted to [facility] after eloping from [facility] and walking into traffic on purpose. Patient apparently believes a friend is writing a horrible story about and does not want to live after everyone reads the book as she believes everyone will hate her. Hospitalist consult for ECT risk stratification. ECT risk stratification Previously underwent ECT without complications in 1998 Currently no significant medical complaints or PMH EKG from 7 days prior at time of admission negative for ischemia RCRI 0 points, class I risk Will repeat EKG before completing risk stratification Plan 1. Continue Risperdal 6 mg p.o. b.i.d.. 2. Clozaril has been changed to 100 mg p.o. b.i.d. and 200 mg p.o. q.h.s. to avoid over-sedation. 3. So far her psychosis had become stable. 4. ECT was considered and on May 13 the patient request this procedure since she reported she is feeling worse. We will try to schedule her ECT as soon as possible. 5. Referral for [facility] team. They assessed her on May 05 and stated that she is not at baseline but it seems that this is now her new baseline. So far she had not been assaultive for grossly disorganized after the medication changes and increase of Clozaril. 6. Family meeting next week to address the possibility of ECT and disposition. On May 13 her son who is the affirmed healthcare proxy signed herself in to ECT. 7. Zyprexa 5 mg p.o. q.6 hours PRNs hallucinations. 8. The patient is not at baseline at this moment we will continue with ECT. 9. Start Remeron 7.5 p.o. q.h.s. to target depression Reason for continued inpatient stay Substantial Risk for: inability to function, rapid decompensation and med/psych decompensation Time Spent With Patient Time: Total time managing care of this patient today __20__ minutes.
[2024-05-28 20:00] VITALS: BP 93/55; PULSE 81; RESP 18; TEMP 36.1; O2SAT 97
[2024-05-28] MEDS: traZODone HCL 50 MG TABLET PO (21:31)
[2024-05-28] MEDS: Mirtazapine 7.5 MG TABLET PO (21:31)
[2024-05-28] MEDS: hydrOXYzine HCL 25 MG TABLET PO (21:31)
[2024-05-28] MEDS: cloZAPine 100 MG TABLET 200 MG PO (21:31)
[2024-05-29] VITALS (9 sets, daily range): BP systolic 101–189; BP diastolic 63–99; PULSE 81–100; RESP 15–16; TEMP 36.2–37; O2SAT 92–98
--- NOTE | 2024-05-29 06:45 | HO.ANESPROP2 ---
[facility] Active Problems Active Problems: All Active Problems Arachnoid cyst (Acute) Diverticulosis (Chronic) Pre-op evaluation (Acute) Schizophrenia (Acute) Suicidal ideation (Acute) Past Medical History Medical History Diverticulosis Schizophrenia CKD (chronic kidney disease) Hyperlipidemia Type 2 diabetes mellitus Hypothyroidism HTN (hypertension) GERD (gastroesophageal reflux disease) Mood disorder Functional capacity: independent ambulation Family History Family history of problems with anesthesia: No Surgical History History of Problems with Anesthesia: No Social History Social History Household Members: None Household Members Other:: Lives at [facility] Housing: Assisted Living Facility Do you presently have visiting nurse or other home services: Yes Alcohol intake: current Patient Tobacco Use Status: Former Tobacco user Tobacco use type: Cigarette Cigarette Packs Per Day: 3 Cigarettes Per Day: 60.0 Years Smoked: 16 Smoked in Last 30 Days: No Patient Interested in Nicotine Replacement: No Second Hand Smoke Exposure: No Use of substances other than those prescribed or required for medical reasons: No Currently Displaying Signs/Symptoms of Drug Intoxication Withdrawal: No Have you been hit, kicked, punched, or otherwise hurt by someone within the past year? If so, by whom?: No Do you feel safe in your current relationship?: No Current Relationship Is there a partner from a previous relationship who is making you feel unsafe now?: No Are you made to feel afraid or neglected: Yes (Pt reports she is afraid of the person writing the book about her.) Advance Directives: No Advance Directives Information Provided: Yes Do you have thoughts of harming others: None Do you have a plan to hurt others: No Plan Recently lost weight without trying: Unsure Nutrition Risks: No Nutritional Risk Patient : No : No Poor oral hygiene: No service: No Sexual orientation: Straight/Heterosexual Meds Allergies Allergy/AdvReac Type Severity Reaction Status Date / Time trifluoperazine Allergy Unknown Verified 03/11/24 14:16 [From Stelazine] Active Medications: Current Medications Acetaminophen (Acetaminophen 325 Mg Tablet) 650 mg PO Q6H PRN PRN Reason: Headache/Pain Mild Scale (1-3) Last Admin: 05/28/24 09:52 Dose: 650 mg Al Hydroxide/Mg Hydroxide (Magnesium Hydrox/Alum Hydrox 30 Ml Oral.Susp) 30 ml PO Q6H PRN PRN Reason: Heartburn/Nausea Clozapine (Clozapine 100 Mg Tablet) 100 mg PO DAILY [facility] Last Admin: 05/28/24 09:44 Dose: 100 mg Clozapine (Clozapine 100 Mg Tablet) 100 mg PO DAILY@1230 [facility] Last Admin: 05/28/24 12:54 Dose: 100 mg Clozapine (Clozapine 100 Mg Tablet) 200 mg PO BEDTIME [facility] Last Admin: 05/28/24 21:31 Dose: 200 mg Famotidine (Famotidine 20 Mg Tablet) 20 mg PO DAILY [facility] Last Admin: 05/28/24 09:44 Dose: 20 mg Hydrocortisone (Hydrocortisone 2.5 % Rectal Cr 30 Gm Tube) 1 appl GA DAILY [facility] Last Admin: 05/28/24 09:48 Dose: Not Given Hydroxyzine HCl (Hydroxyzine Hcl 25 Mg Tablet) 25 mg PO Q6H PRN PRN Reason: Anxiety Last Admin: 05/28/24 21:31 Dose: 25 mg Lamotrigine (Lamotrigine 25 Mg Tablet) 50 mg PO BID [facility] Last Admin: 05/28/24 21:31 Dose: 50 mg Levothyroxine Sodium (Levothyroxine Sodium 75 Mcg Tablet) 75 mcg PO DAILY@0600 [facility] Last Admin: 05/28/24 07:46 Dose: 75 mcg Magnesium Hydroxide (Milk Of Magnesia 30 Ml Oral.Susp) 30 ml PO BID PRN PRN Reason: Constipation Last Admin: 05/14/24 09:14 Dose: 30 ml Mirtazapine (Mirtazapine 7.5 Mg Tablet) 7.5 mg PO BEDTIME [facility] Last Admin: 05/28/24 21:31 Dose: 7.5 mg Nicotine Polacrilex (Nicotine Polacrilex 2 Mg Gum) 2 mg BUCCAL Q2H PRN PRN Reason: Nicotine Cravings Olanzapine (Olanzapine 5 Mg Tablet) 5 mg PO Q4H PRN PRN Reason: Psychosis Last Admin: 05/09/24 10:24 Dose: 5 mg Polyethylene Glycol (Polyethylene Glycol 3350 17 Gm Powd.Pack) 17 gm PO DAILY PRN PRN Reason: Constipation Last Admin: 04/18/24 00:24 Dose: 17 gm Polyethylene Glycol (Polyethylene Glycol 3350 17 Gm Powd.Pack) 17 gm PO DAILY [facility] Last Admin: 05/28/24 09:48 Dose: Not Given Risperidone (Risperidone 3 Mg Tablet) 6 mg PO BID [facility] Last Admin: 05/28/24 21:30 Dose: 6 mg Senna (Sennosides 8.6 Mg Tablet) 8.6 mg PO DAILY [facility] Last Admin: 05/28/24 09:44 Dose: 8.6 mg Trazodone HCl (Trazodone Hcl 50 Mg Tablet) 50 mg PO BEDTIME MRX1 PRN PRN Reason: Insomnia Last Admin: 05/28/24 21:31 Dose: 50 mg Home Medications ?Medication ?Instructions ?Recorded ?Confirmed ?Last Taken ?Type clozapine 100 mg tablet 100 mg PO DAILY 03/11/24 03/11/24 03/11/24 History clozapine 100 mg tablet 300 mg PO BEDTIME 03/11/24 03/11/24 03/10/24 History famotidine 20 mg tablet 20 mg PO DAILY 03/11/24 03/11/24 03/11/24 History lamotrigine 25 mg tablet 50 mg PO BID 03/11/24 03/11/24 03/11/24 History levothyroxine 75 mcg tablet 75 mcg PO DAILY 03/11/24 03/11/24 03/11/24 History risperidone 2 mg tablet 6 mg PO BID 03/11/24 03/11/24 03/11/24 History sennosides 8.6 mg tablet (senna) 8.6 mg PO DAILY PRN Constipation 03/11/24 03/11/24 Unknown History Exam Height,Weight and Vital Signs: Height 5 ft 6 in Weight 74.559 kg Last Vital Signs Temp 96.9 F 05/28/24 20:00 Pulse 81 05/28/24 20:00 Resp 18 05/28/24 20:00 BP 93/55 L 05/28/24 20:00 Pulse Ox 97 05/28/24 20:00 O2 Del Method Room Air 05/28/24 20:00 O2 Flow Rate 4 05/27/24 07:55 Pertinent Lab Results Pertinent Lab Results: Laboratory Tests 03/11/24 03/11/24 03/12/24 11:07 13:25 13:15 WBC 7.8 RBC 3.77 L Hgb 11.6 L Hct 34.5 L MCV 91.5 MCH 30.8 MCHC 33.6 RDW 14.8 Plt Count 205 MPV 10.3 Immature Gran % (Auto) 0.4 Neut % (Auto) 80.2 H Lymph % (Auto) 9.8 L [place] % (Auto) 8.6 Eos % (Auto) 0.5 Baso % (Auto) 0.5 Lymph # (Auto) 0.8 L [place] # (Auto) 0.7 Eos # (Auto) 0.0 Baso # (Auto) 0.0 Abs Immat Gran (auto) 0.03 Absolute Neuts (auto) 6.2 Absolute Nucleated RBC 0.000 Nucleated RBC % (auto) 0.0 Sodium 141 Potassium 4.2 Chloride 107 Carbon Dioxide 24 Anion Gap 14 BUN 18 H Creatinine 1.47 H Estim Creat Clear Calc 36.2 Estimated GFR 35 POC Glucose 118 H Random Glucose 119 H Fasting Glucose Estimat Average Glucose Hemoglobin A1c % Calcium 9.8 Magnesium Total Bilirubin 0.3 AST 20 ALT 16 Alkaline Phosphatase 90 Total Protein 6.0 L Albumin 4.0 Triglycerides Cholesterol LDL Cholesterol, Calc HDL Cholesterol Vitamin B12 Folate TSH Urine Color Yellow Urine Appearance Clear Urine pH 6.5 Ur Specific [place] <= 1.005 Urine Protein Negative Urine Glucose (UA) Negative Urine Ketones Negative Urine Blood Negative Urine Nitrite Negative Ur Leukocyte Esterase Small (1+) H Urine RBC 0-2 Urine WBC 0-5 Ur Squamous Epith Cells 0-2 Urine Bacteria None Seen Hyaline Casts 0-2 Urine Opiates Screen Not Detected Ur Buprenorphine Scrn Not Detected Ur Oxycodone Screen Not Detected Urine Methadone Screen Not Detected Urine Fentanyl Screen Not Detected Ur Barbiturates Screen Not Detected Ur Phencyclidine Scrn Not Detected Ur Amphetamines Screen Not Detected U Benzodiazepines Scrn Not Detected Urine Cocaine Screen Not Detected U Marijuana (THC) Screen Not Detected Ethyl Alcohol < 10 03/13/24 03/18/24 03/25/24 08:18 07:57 08:12 WBC RBC Hgb Hct MCV MCH MCHC RDW Plt Count MPV Immature Gran % (Auto) Neut % (Auto) Lymph % (Auto) [place] % (Auto) Eos % (Auto) Baso % (Auto) Lymph # (Auto) [place] # (Auto) Eos # (Auto) Baso # (Auto) Abs Immat Gran (auto) Absolute Neuts (auto) 4.2 3.3 Absolute Nucleated RBC Nucleated RBC % (auto) Sodium 142 Potassium 4.0 Chloride 108 Carbon Dioxide 28 Anion Gap 10 L BUN 23 H Creatinine 1.46 H Estim Creat Clear Calc 36.5 Estimated GFR 35 POC Glucose Random Glucose Fasting Glucose 114 H Estimat Average Glucose 114 Hemoglobin A1c % 5.6 Calcium 9.8 Magnesium 2.3 Total Bilirubin 0.4 AST 16 ALT 10 Alkaline Phosphatase 85 Total Protein 5.8 L Albumin 4.0 Triglycerides 133 Cholesterol 218 H LDL Cholesterol, Calc 144 H HDL Cholesterol 48 Vitamin B12 443 Folate 10.9 TSH 3.25 Urine Color Urine Appearance Urine pH Ur Specific [place] Urine Protein Urine Glucose (UA) Urine Ketones Urine Blood Urine Nitrite Ur Leukocyte Esterase Urine RBC Urine WBC Ur Squamous Epith Cells Urine Bacteria Hyaline Casts Urine Opiates Screen Ur Buprenorphine Scrn Ur Oxycodone Screen Urine Methadone Screen Urine Fentanyl Screen Ur Barbiturates Screen Ur Phencyclidine Scrn Ur Amphetamines Screen U Benzodiazepines Scrn Urine Cocaine Screen U Marijuana (THC) Screen Ethyl Alcohol 04/03/24 04/05/24 04/05/24 07:40 15:20 15:38 WBC 6.6 RBC 3.94 L Hgb 12.0 Hct 35.8 L MCV 90.9 MCH 30.5 MCHC 33.5 RDW 13.7 Plt Count 208 MPV 10.5 Immature Gran % (Auto) Neut % (Auto) Lymph % (Auto) [place] % (Auto) Eos % (Auto) Baso % (Auto) Lymph # (Auto) [place] # (Auto) Eos # (Auto) Baso # (Auto) Abs Immat Gran (auto) Absolute Neuts (auto) 5.0 Absolute Nucleated RBC 0.000 Nucleated RBC % (auto) 0.0 Sodium 144 Potassium 3.5 Chloride 106 Carbon Dioxide 25 Anion Gap 17 BUN 17 H Creatinine 1.50 H Estim Creat Clear Calc 37.2 Estimated GFR 34 POC Glucose 100 Random Glucose 74 Fasting Glucose Estimat Average Glucose Hemoglobin A1c % Calcium 9.8 Magnesium Total Bilirubin 0.4 AST 21 ALT 8 Alkaline Phosphatase 127 H Total Protein 5.8 L Albumin 3.9 Triglycerides Cholesterol LDL Cholesterol, Calc HDL Cholesterol Vitamin B12 Folate TSH Urine Color Urine Appearance Urine pH Ur Specific [place] Urine Protein Urine Glucose (UA) Urine Ketones Urine Blood Urine Nitrite Ur Leukocyte Esterase Urine RBC Urine WBC Ur Squamous Epith Cells Urine Bacteria Hyaline Casts Urine Opiates Screen Ur Buprenorphine Scrn Ur Oxycodone Screen Urine Methadone Screen Urine Fentanyl Screen Ur Barbiturates Screen Ur Phencyclidine Scrn Ur Amphetamines Screen U Benzodiazepines Scrn Urine Cocaine Screen U Marijuana (THC) Screen Ethyl Alcohol 04/12/24 04/15/24 04/22/24 08:30 08:26 07:29 WBC RBC Hgb Hct MCV MCH MCHC RDW Plt Count MPV Immature Gran % (Auto) Neut % (Auto) Lymph % (Auto) [place] % (Auto) Eos % (Auto) Baso % (Auto) Lymph # (Auto) [place] # (Auto) Eos # (Auto) Baso # (Auto) Abs Immat Gran (auto) Absolute Neuts (auto) 3.7 6.0 3.4 Absolute Nucleated RBC Nucleated RBC % (auto) Sodium Potassium Chloride Carbon Dioxide Anion Gap BUN Creatinine Estim Creat Clear Calc Estimated GFR POC Glucose Random Glucose Fasting Glucose Estimat Average Glucose Hemoglobin A1c % Calcium Magnesium Total Bilirubin AST ALT Alkaline Phosphatase Total Protein Albumin Triglycerides Cholesterol LDL Cholesterol, Calc HDL Cholesterol Vitamin B12 Folate TSH Urine Color Urine Appearance Urine pH Ur Specific [place] Urine Protein Urine Glucose (UA) Urine Ketones Urine Blood Urine Nitrite Ur Leukocyte Esterase Urine RBC Urine WBC Ur Squamous Epith Cells Urine Bacteria Hyaline Casts Urine Opiates Screen Ur Buprenorphine Scrn Ur Oxycodone Screen Urine Methadone Screen Urine Fentanyl Screen Ur Barbiturates Screen Ur Phencyclidine Scrn Ur Amphetamines Screen U Benzodiazepines Scrn Urine Cocaine Screen U Marijuana (THC) Screen Ethyl Alcohol 04/29/24 05/06/24 05/13/24 08:53 08:22 08:34 WBC RBC Hgb Hct MCV MCH MCHC RDW Plt Count MPV Immature Gran % (Auto) Neut % (Auto) Lymph % (Auto) [place] % (Auto) Eos % (Auto) Baso % (Auto) Lymph # (Auto) [place] # (Auto) Eos # (Auto) Baso # (Auto) Abs Immat Gran (auto) Absolute Neuts (auto) 6.0 3.7 4.6 Absolute Nucleated RBC Nucleated RBC % (auto) Sodium Potassium Chloride Carbon Dioxide Anion Gap BUN Creatinine Estim Creat Clear Calc Estimated GFR POC Glucose Random Glucose Fasting Glucose Estimat Average Glucose Hemoglobin A1c % Calcium Magnesium Total Bilirubin AST ALT Alkaline Phosphatase Total Protein Albumin Triglycerides Cholesterol LDL Cholesterol, Calc HDL Cholesterol Vitamin B12 Folate TSH Urine Color Urine Appearance Urine pH Ur Specific [place] Urine Protein Urine Glucose (UA) Urine Ketones Urine Blood Urine Nitrite Ur Leukocyte Esterase Urine RBC Urine WBC Ur Squamous Epith Cells Urine Bacteria Hyaline Casts Urine Opiates Screen Ur Buprenorphine Scrn Ur Oxycodone Screen Urine Methadone Screen Urine Fentanyl Screen Ur Barbiturates Screen Ur Phencyclidine Scrn Ur Amphetamines Screen U Benzodiazepines Scrn Urine Cocaine Screen U Marijuana (THC) Screen Ethyl Alcohol 05/20/24 05/27/24 10:23 10:43 WBC RBC Hgb Hct MCV MCH MCHC RDW Plt Count MPV Immature Gran % (Auto) Neut % (Auto) Lymph % (Auto) [place] % (Auto) Eos % (Auto) Baso % (Auto) Lymph # (Auto) [place] # (Auto) Eos # (Auto) Baso # (Auto) Abs Immat Gran (auto) Absolute Neuts (auto) 5.4 8.1 Absolute Nucleated RBC Nucleated RBC % (auto) Sodium Potassium Chloride Carbon Dioxide Anion Gap BUN Creatinine Estim Creat Clear Calc Estimated GFR POC Glucose Random Glucose Fasting Glucose Estimat Average Glucose Hemoglobin A1c % Calcium Magnesium Total Bilirubin AST ALT Alkaline Phosphatase Total Protein Albumin Triglycerides Cholesterol LDL Cholesterol, Calc HDL Cholesterol Vitamin B12 Folate TSH Urine Color Urine Appearance Urine pH Ur Specific [place] Urine Protein Urine Glucose (UA) Urine Ketones Urine Blood Urine Nitrite Ur Leukocyte Esterase Urine RBC Urine WBC Ur Squamous Epith Cells Urine Bacteria Hyaline Casts Urine Opiates Screen Ur Buprenorphine Scrn Ur Oxycodone Screen Urine Methadone Screen Urine Fentanyl Screen Ur Barbiturates Screen Ur Phencyclidine Scrn Ur Amphetamines Screen U Benzodiazepines Scrn Urine Cocaine Screen U Marijuana (THC) Screen Ethyl Alcohol Airway Mallampati Class: II (poor dentition) TM Dist: >3cm Neck ROM: Full Heart: rrr Lungs: cta Assessment and Plan Assessment Anesthesia Assessment: Anesthesia Plan Discussed and Chart Reviewed Final Anesthetic Review Family History of Problems with Anesthesia: No History of Problems with Anesthesia: No NPO: Yes ASA Class: III Final Preanesthetic Review: No Changes in Pt Med Stat, Meds/Allgs Chart Reviewed and Consent Obtained/Reviewed Patient Risk: Intermediate Procedure Risk: Intermediate Anesthetic Plan Anesthetic Plan: GA Disposition: Standard PACU
--- NOTE | 2024-05-29 07:24 | MHC.SHP ---
Pre-Procedural Eval Section A - 24 Hr Update-Section A only Date of Service: 05/29/24 The patient is an INPATIENT: Yes Changes since office visit: No Cold of Flu in the past 2 weeks, No New Medical Problems, No Changes in Medication and No Patient answered all questions The patient has been examined within 24 hours of the surgical procedure. The History & Physical has been completed within 30 days and I have reviewed it.: Yes Section B - Complete if H&P > 30 days Chief Complaint: Psychosis Allergies: Allergies Allergy/AdvReac Type Severity Reaction Status Date / Time trifluoperazine Allergy Unknown Verified 03/11/24 14:16 [From Adrian] Plan I have reviewed the history and physical and performed a pertinent physical examination on my patient. No changes have occurred unless specified. Time Spent With Patient Time: Total time managing care of this patient today ____ minutes.
--- NOTE | 2024-05-29 07:27 | HO.ECTPROC ---
ECT Procedure Note Diagnosis/Treatment Date of Service: 05/29/24 Diagnosis: Schizoaffective Disorder Previous ECT Date: 05/25/24 Current Treatment Number: 7 Treatment: Series Interval Clinical Notes: Patient had ECT completed without difficulty. Informed consent obtained from the patient's father. Patient feeling less anxious less intrusive thoughts. Feels better with ECT Time: Total time managing care of this patient today ____ minutes. ECT Settings Device: THYMATRON DGx Electrode Placement: Bifrontal Program/Pulse Width: 0.50 Energy Percent: 100 Seizure Duration By EEG (in seconds): 20 Medications Administration General Anesthetic: Etomidate (12) Muscle Relaxant: Succinylcholine (80) Ancillary Medications Anti-emetics: Zofran - Pre ECT Airway Management Airway Management: Bag Mask Ventilation Treatment Recommendations No Changes Recommended: No change Pt Tolerated Procedure w/o Issue: Yes
[2024-05-29] MEDS: Levothyroxine Sodium 75 MCG TABLET PO (08:44)
[2024-05-29] MEDS: cloZAPine 100 MG TABLET PO ×2 (08:44→13:55)
[2024-05-29] MEDS: risperiDONE 3 MG TABLET 6 MG PO ×2 (08:44→20:33)
[2024-05-29] MEDS: Acetaminophen 325 MG TABLET 650 MG PO (08:44)
[2024-05-29] MEDS: Sennosides 8.6 MG TABLET PO (08:45)
[2024-05-29] MEDS: lamoTRIgine 25 MG TABLET 50 MG PO ×2 (08:45→20:33)
[2024-05-29] MEDS: Famotidine 20 MG TABLET PO (08:45)
--- NOTE | 2024-05-29 08:47 | HO.POSTANES ---
Post Anesthesia Evaluation Post Anesthesia Evaluation Date of Service: 05/29/24 Vital Signs: Vital Signs Temp Pulse Resp BP Pulse Ox O2 Del Method O2 Flow Rate 05/29/24 08:35 98.5 F 88 15 121/72 96 05/29/24 08:10 85 16 120/75 94 Room Air 05/29/24 07:55 84 16 127/79 95 Nasal Cannula with ETCO2 2 05/29/24 07:50 83 16 149/84 H 96 Nasal Cannula with ETCO2 2 05/29/24 07:45 88 16 176/87 H 98 Nasal Cannula with ETCO2 2 05/29/24 07:40 97.2 F 100 16 189/99 H 98 Nasal Cannula with ETCO2 2 05/29/24 06:50 98.2 F 81 16 117/69 95 Room Air Anesthesia: General Mental Status: Awake Pain Control: Satisfactory Nausea/Vomiting: None Hydration: Adequate Anesthesia-Related Issues: No Anes. Related Issues
[2024-05-29] MEDS: polyethylene glycoL 3350 17 GM POWD.PACK PO (08:49)
[2024-05-29] MEDS: Mirtazapine 7.5 MG TABLET PO (20:33)
[2024-05-29] MEDS: cloZAPine 100 MG TABLET 200 MG PO (20:34)
--- NOTE | 2024-05-29 22:23 | P.PNPSI_ITS ---
Subjective Subjective Date of Service: 05/29/24 Reason For Visit: Psychosis Subjective Notes: Conditional Voluntary Healthcare Proxy: Yes Interim History: Pt has been feeling less tormented no c/o side effects with ect Mental Status Exam Mental Status Exam Patient Appearance: Well Grooomed Patient Orientation: Person and Situation Level of Consciousness: Awake and Appropriate Patient Behavior: Passive Mood Description: Withdrawn Affect Description: Constricted Patient Cognition Impaired: Yes Ability to Follow Directions: Good Speech Pattern: Clear Hallucinations: Auditory Delusions: Being Controlled and Ideas of Reference Thought Process: Distracted and Slowed Thinking Thought Content: positive for [place] and positive for Poverty of Content Judgement: Fair Judgement and Insight: less thinking she deserves to Diagnostics Vital Signs (24Hr): Vital Signs - 24 hr 05/29/24 06:50 05/29/24 07:40 05/29/24 07:45 Temperature 98.2 F 97.2 F Pulse Rate 81 100 88 Respiratory Rate 16 16 16 Blood Pressure 117/69 189/99 H 176/87 H Pulse Oximetry 95 98 98 Oxygen Delivery Method Room Air Nasal Cannula with ETCO2 Nasal Cannula with ETCO2 Oxygen Flow Rate 2 2 05/29/24 07:50 05/29/24 07:55 05/29/24 08:10 Temperature Pulse Rate 83 84 85 Respiratory Rate 16 16 16 Blood Pressure 149/84 H 127/79 120/75 Pulse Oximetry 96 95 94 Oxygen Delivery Method Nasal Cannula with ETCO2 Nasal Cannula with ETCO2 Room Air Oxygen Flow Rate 2 2 05/29/24 08:35 05/29/24 09:00 05/29/24 19:06 Temperature 98.5 F 98.5 F 98.6 F Pulse Rate 88 88 91 Respiratory Rate 15 15 Blood Pressure 121/72 121/72 101/63 Pulse Oximetry 96 96 92 Oxygen Delivery Method Room Air Room Air Oxygen Flow Rate BMI result Body Mass Index 26.5 Labs 04/05/24 15:38 04/05/24 15:38 Imaging Radiology Impressions: ITS Impressions Head CT 03/18/24 09:42 IMPRESSION: 1. No evidence of acute intracranial hemorrhage or edematous territorial infarction. 2. Mild to moderate underlying microangiopathy. 3. Arachnoid cyst in the right middle cranial fossa. Electronically signed by: Mino Arriaga DO 03/18/2024 06:26 PM [facility] Head CT 03/19/24 01:36 IMPRESSION: 1. Left frontal scalp soft tissue swelling. 2. No acute intracranial process seen. 3. Stable right middle cranial fossa arachnoid cyst. Electronically signed by: Andreas Olsen MD 03/19/2024 02:08 AM EST RP Head CT 04/05/24 16:20 IMPRESSION: 1. No acute intracranial hemorrhage or mass effect. 2. Stable right middle cranial fossa arachnoid cyst. Electronically signed by: Getachew Arana MD 04/05/2024 05:15 PM EST RP KUB X-Ray 04/16/24 13:57 IMPRESSION: Nonobstructive bowel gas pattern. Large colonic and rectal fecal material. Electronically signed by: Chencho Ugalde MD 04/16/2024 02:13 PM EST RP Medications Medications Current Medications Acetaminophen (Acetaminophen 325 Mg Tablet) 650 mg PO Q6H PRN PRN Reason: Headache/Pain Mild Scale (1-3) Last Admin: 05/29/24 08:44 Dose: 650 mg Al Hydroxide/Mg Hydroxide (Magnesium Hydrox/Alum Hydrox 30 Ml Oral.Susp) 30 ml PO Q6H PRN PRN Reason: Heartburn/Nausea Clozapine (Clozapine 100 Mg Tablet) 100 mg PO DAILY [facility] Last Admin: 05/29/24 08:44 Dose: 100 mg Clozapine (Clozapine 100 Mg Tablet) 100 mg PO DAILY@1230 [facility] Last Admin: 05/29/24 13:55 Dose: 100 mg Clozapine (Clozapine 100 Mg Tablet) 200 mg PO BEDTIME [facility] Last Admin: 05/29/24 20:34 Dose: 200 mg Famotidine (Famotidine 20 Mg Tablet) 20 mg PO DAILY [facility] Last Admin: 05/29/24 08:45 Dose: 20 mg Hydrocortisone (Hydrocortisone 2.5 % Rectal Cr 30 Gm Tube) 1 appl [place] DAILY [facility] Last Admin: 05/29/24 08:59 Dose: Not Given Hydroxyzine HCl (Hydroxyzine Hcl 25 Mg Tablet) 25 mg PO Q6H PRN PRN Reason: Anxiety Last Admin: 05/28/24 21:31 Dose: 25 mg Lactated Ringer's (Lr) 1,000 mls @ 50 mls/hr IVCONT .Q20H [facility] Last Admin: 05/29/24 19:17 Dose: Not Given Lamotrigine (Lamotrigine 25 Mg Tablet) 50 mg PO BID [facility] Last Admin: 05/29/24 20:33 Dose: 50 mg Levothyroxine Sodium (Levothyroxine Sodium 75 Mcg Tablet) 75 mcg PO DAILY@0600 [facility] Last Admin: 05/29/24 08:44 Dose: 75 mcg Magnesium Hydroxide (Milk Of Magnesia 30 Ml Oral.Susp) 30 ml PO BID PRN PRN Reason: Constipation Last Admin: 05/14/24 09:14 Dose: 30 ml Mirtazapine (Mirtazapine 7.5 Mg Tablet) 7.5 mg PO BEDTIME [facility] Last Admin: 05/29/24 20:33 Dose: 7.5 mg Naloxone HCl (Naloxone Hcl 0.4 Mg/Ml Vial) 0.04 mg IVPUSH Q5M PRN PRN Reason: Excessive sedation or RR < 8 Nicotine Polacrilex (Nicotine Polacrilex 2 Mg Gum) 2 mg BUCCAL Q2H PRN PRN Reason: Nicotine Cravings Olanzapine (Olanzapine 5 Mg Tablet) 5 mg PO Q4H PRN PRN Reason: Psychosis Last Admin: 05/09/24 10:24 Dose: 5 mg Polyethylene Glycol (Polyethylene Glycol 3350 17 Gm Powd.Pack) 17 gm PO DAILY PRN PRN Reason: Constipation Last Admin: 04/18/24 00:24 Dose: 17 gm Polyethylene Glycol (Polyethylene Glycol 3350 17 Gm Powd.Pack) 17 gm PO DAILY [facility] Last Admin: 05/29/24 08:49 Dose: 17 gm Risperidone (Risperidone 3 Mg Tablet) 6 mg PO BID [facility] Last Admin: 05/29/24 20:33 Dose: 6 mg Senna (Sennosides 8.6 Mg Tablet) 8.6 mg PO DAILY [facility] Last Admin: 05/29/24 08:45 Dose: 8.6 mg Trazodone HCl (Trazodone Hcl 50 Mg Tablet) 50 mg PO BEDTIME MRX1 PRN PRN Reason: Insomnia Last Admin: 05/28/24 21:31 Dose: 50 mg Allergies Allergies Allergy/AdvReac Type Severity Reaction Status Date / Time trifluoperazine Allergy Unknown Verified 03/11/24 14:16 [From Stelazine] Assessment & Plan Assessment & Plan (1) Schizophrenia: Status: Acute Code(s): F20.9 - Schizophrenia, unspecified (2) Diverticulosis: Status: Chronic Code(s): K57.90 - Diverticulosis of intestine, part unspecified, without perforation or abscess without bleeding Plan Patient is a 73-year-old female with a PMH significant for HTN, post op VTE 2 years ago, hypothyroidism, and mood disorder who was admitted to [facility] after eloping from [facility] and walking into traffic on purpose. Patient apparently believes a friend is writing a horrible story about and does not want to live after everyone reads the book as she believes everyone will hate her. Hospitalist consult for ECT risk stratification. ECT risk stratification Previously underwent ECT without complications in 1998 Currently no significant medical complaints or PMH EKG from 7 days prior at time of admission negative for ischemia RCRI 0 points, class I risk Will repeat EKG before completing risk stratification Plan 1. Continue Risperdal 6 mg p.o. b.i.d.. 2. Clozaril has been changed to 100 mg p.o. b.i.d. and 200 mg p.o. q.h.s. to avoid over-sedation. 3. So far her psychosis had become stable. 4. ECT was considered and on May 13 the patient request this procedure since she reported she is feeling worse. We will try to schedule her ECT as soon as possible. 5. Referral for ACSS team. They assessed her on May 05 and stated that she is not at baseline but it seems that this is now her new baseline. So far she had not been assaultive for grossly disorganized after the medication changes and increase of Clozaril. 6. Family meeting next week to address the possibility of ECT and disposition. On May 13 her son who is the affirmed healthcare proxy signed herself in to ECT. 7. Zyprexa 5 mg p.o. q.6 hours PRNs hallucinations. 8. The patient is not at baseline at this moment we will continue with ECT. 9. Start Remeron 7.5 p.o. q.h.s. to target depression 05/31/24 Pt seen ect completed pt improving no significant side effects noted less psychotic preoccupation denies active si Reason for continued inpatient stay Substantial Risk for: harm to self Time Spent With Patient Time: Total time managing care of this patient today ____ minutes.
[2024-05-30] MEDS: Levothyroxine Sodium 75 MCG TABLET PO (06:04)
[2024-05-30 07:58] VITALS: BP 128/70; PULSE 89; RESP 16; TEMP 36.4; O2SAT 98
[2024-05-30] MEDS: cloZAPine 100 MG TABLET PO ×2 (08:05→11:42)
[2024-05-30] MEDS: risperiDONE 3 MG TABLET 6 MG PO ×2 (08:05→20:28)
[2024-05-30] MEDS: Sennosides 8.6 MG TABLET PO (08:05)
[2024-05-30] MEDS: lamoTRIgine 25 MG TABLET 50 MG PO ×2 (08:05→20:29)
[2024-05-30] MEDS: Famotidine 20 MG TABLET PO (08:05)
[2024-05-30] MEDS: polyethylene glycoL 3350 17 GM POWD.PACK PO (08:05)
--- NOTE | 2024-05-30 08:12 | P.PNPSI_ITS ---
Subjective Subjective Date of Service: 05/30/24 Reason For Visit: Psychosis Subjective Notes: Conditional Voluntary Interim History: met patient. Discussed with Nursing. Overall has been isolative, but does read in her room comes out for meals. Patient reports feeling less depressed, also described her thoughts as being less deranged in reference to having evil thought and hallucinations. Reports both have significantly improved. Feels that ECT has been very helpful. No SI. Medication Compliance: Yes Side effects from medications: No Attending Groups: No Review of Systems Acute medical concerns: No Review of Systems Review of Systems nothing of note Mental Status Exam Mental Status Exam Narrative: Pt alert and oriented; behavior is cooperative, friendly and calm; patient is not in distress; dressed in casual attire in bed, reading. Mood is described as better and affect congruent, more calm; eye contact appropriate; Speech is normal rate, volume and prosody and not pressured; no psychomotor agitation/retardation present; thought process is organized and goal directed; Thought content is on tx; minimal delusional thinking expressed; no SI; no HI. Minimal hallucinations. Patients insight and judgment improving Diagnostics Vital Signs (24Hr): Vital Signs - 24 hr 05/29/24 08:35 05/29/24 09:00 05/29/24 19:06 Temperature 98.5 F 98.5 F 98.6 F Pulse Rate 88 88 91 Respiratory Rate 15 15 Blood Pressure 121/72 121/72 101/63 Pulse Oximetry 96 96 92 Oxygen Delivery Method Room Air Room Air BMI result Body Mass Index 26.5 Labs 04/05/24 15:38 04/05/24 15:38 Imaging Radiology Impressions: ITS Impressions Head CT 03/18/24 09:42 IMPRESSION: 1. No evidence of acute intracranial hemorrhage or edematous territorial infarction. 2. Mild to moderate underlying microangiopathy. 3. Arachnoid cyst in the right middle cranial fossa. Electronically signed by: Mino Arriaga DO 03/18/2024 06:26 PM EST RP Head CT 03/19/24 01:36 IMPRESSION: 1. Left frontal scalp soft tissue swelling. 2. No acute intracranial process seen. 3. Stable right middle cranial fossa arachnoid cyst. Electronically signed by: Andreas Olsen MD 03/19/2024 02:08 AM EST RP Head CT 04/05/24 16:20 IMPRESSION: 1. No acute intracranial hemorrhage or mass effect. 2. Stable right middle cranial fossa arachnoid cyst. Electronically signed by: Getachew Arana MD 04/05/2024 05:15 PM EST RP KUB X-Ray 04/16/24 13:57 IMPRESSION: Nonobstructive bowel gas pattern. Large colonic and rectal fecal material. Electronically signed by: Chencho Ugalde MD 04/16/2024 02:13 PM EST RP Medications Medications Current Medications Acetaminophen (Acetaminophen 325 Mg Tablet) 650 mg PO Q6H PRN PRN Reason: Headache/Pain Mild Scale (1-3) Last Admin: 05/29/24 08:44 Dose: 650 mg Al Hydroxide/Mg Hydroxide (Magnesium Hydrox/Alum Hydrox 30 Ml Oral.Susp) 30 ml PO Q6H PRN PRN Reason: Heartburn/Nausea Clozapine (Clozapine 100 Mg Tablet) 100 mg PO DAILY [facility] Last Admin: 05/30/24 08:05 Dose: 100 mg Clozapine (Clozapine 100 Mg Tablet) 100 mg PO DAILY@1230 [facility] Last Admin: 05/29/24 13:55 Dose: 100 mg Clozapine (Clozapine 100 Mg Tablet) 200 mg PO BEDTIME [facility] Last Admin: 05/29/24 20:34 Dose: 200 mg Famotidine (Famotidine 20 Mg Tablet) 20 mg PO DAILY [facility] Last Admin: 05/30/24 08:05 Dose: 20 mg Hydrocortisone (Hydrocortisone 2.5 % Rectal Cr 30 Gm Tube) 1 appl [place] DAILY [facility] Last Admin: 05/30/24 08:08 Dose: Not Given Hydroxyzine HCl (Hydroxyzine Hcl 25 Mg Tablet) 25 mg PO Q6H PRN PRN Reason: Anxiety Last Admin: 05/28/24 21:31 Dose: 25 mg Lactated Ringer's (Lr) 1,000 mls @ 50 mls/hr IVCONT .Q20H [facility] Last Admin: 05/30/24 06:22 Dose: Not Given Lamotrigine (Lamotrigine 25 Mg Tablet) 50 mg PO BID [facility] Last Admin: 05/30/24 08:05 Dose: 50 mg Levothyroxine Sodium (Levothyroxine Sodium 75 Mcg Tablet) 75 mcg PO DAILY@0600 [facility] Last Admin: 05/30/24 06:04 Dose: 75 mcg Magnesium Hydroxide (Milk Of Magnesia 30 Ml Oral.Susp) 30 ml PO BID PRN PRN Reason: Constipation Last Admin: 05/14/24 09:14 Dose: 30 ml Mirtazapine (Mirtazapine 7.5 Mg Tablet) 7.5 mg PO BEDTIME [facility] Last Admin: 05/29/24 20:33 Dose: 7.5 mg Naloxone HCl (Naloxone Hcl 0.4 Mg/Ml Vial) 0.04 mg IVPUSH Q5M PRN PRN Reason: Excessive sedation or RR < 8 Nicotine Polacrilex (Nicotine Polacrilex 2 Mg Gum) 2 mg BUCCAL Q2H PRN PRN Reason: Nicotine Cravings Olanzapine (Olanzapine 5 Mg Tablet) 5 mg PO Q4H PRN PRN Reason: Psychosis Last Admin: 05/09/24 10:24 Dose: 5 mg Polyethylene Glycol (Polyethylene Glycol 3350 17 Gm Powd.Pack) 17 gm PO DAILY PRN PRN Reason: Constipation Last Admin: 04/18/24 00:24 Dose: 17 gm Polyethylene Glycol (Polyethylene Glycol 3350 17 Gm Powd.Pack) 17 gm PO DAILY [facility] Last Admin: 05/30/24 08:05 Dose: 17 gm Risperidone (Risperidone 3 Mg Tablet) 6 mg PO BID [facility] Last Admin: 05/30/24 08:05 Dose: 6 mg Senna (Sennosides 8.6 Mg Tablet) 8.6 mg PO DAILY [facility] Last Admin: 05/30/24 08:05 Dose: 8.6 mg Trazodone HCl (Trazodone Hcl 50 Mg Tablet) 50 mg PO BEDTIME MRX1 PRN PRN Reason: Insomnia Last Admin: 05/28/24 21:31 Dose: 50 mg Allergies Allergies Allergy/AdvReac Type Severity Reaction Status Date / Time trifluoperazine Allergy Unknown Verified 03/11/24 14:16 [From Stelazine] Assessment & Plan Assessment & Plan (1) Schizophrenia: Status: Acute Code(s): F20.9 - Schizophrenia, unspecified (2) Diverticulosis: Status: Chronic Code(s): K57.90 - Diverticulosis of intestine, part unspecified, without perforation or abscess without bleeding Plan Patient is a 73-year-old female with a PMH significant for HTN, post op VTE 2 years ago, hypothyroidism, and mood disorder who was admitted to [facility] after eloping from [facility] and walking into traffic on purpose. Patient apparently believes a friend is writing a horrible story about and does not want to live after everyone reads the book as she believes everyone will hate her. Hospitalist consult for ECT risk stratification. ECT risk stratification Previously underwent ECT without complications in 1998 Currently no significant medical complaints or PMH EKG from 7 days prior at time of admission negative for ischemia RCRI 0 points, class I risk Will repeat EKG before completing risk stratification Plan 1. Continue Risperdal 6 mg p.o. b.i.d.. 2. Clozaril has been changed to 100 mg p.o. b.i.d. and 200 mg p.o. q.h.s. to avoid over-sedation. 3. So far her psychosis had become stable. 4. ECT was considered and on May 13 the patient request this procedure since she reported she is feeling worse. We will try to schedule her ECT as soon as possible. 5. Referral for [facility]SS team. They assessed her on May 05 and stated that she is not at baseline but it seems that this is now her new baseline. So far she had not been assaultive for grossly disorganized after the medication changes and increase of Clozaril. 6. Family meeting next week to address the possibility of ECT and disposition. On May 13 her son who is the affirmed healthcare proxy signed herself in to ECT. 7. Zyprexa 5 mg p.o. q.6 hours PRNs hallucinations. 8. The patient is not at baseline at this moment we will continue with ECT. 9. Start Remeron 7.5 p.o. q.h.s. to target depression 05/30: no changes. ECT Thursday 06/01 Reason for continued inpatient stay Substantial Risk for: rapid decompensation Time Spent With Patient Time: Total time managing care of this patient today ____ minutes.
[2024-05-30] MEDS: Milk of Magnesia 30 ML ORAL.SUSP PO ×2 (11:49→17:29)
[2024-05-30] MEDS: Acetaminophen 325 MG TABLET 650 MG PO (17:27)
[2024-05-30 20:29] VITALS: BP 103/58; PULSE 88; RESP 16; TEMP 36.3; O2SAT 97
[2024-05-30] MEDS: Mirtazapine 7.5 MG TABLET PO (20:29)
[2024-05-30] MEDS: cloZAPine 100 MG TABLET 200 MG PO (20:29)
[2024-05-31] MEDS: Levothyroxine Sodium 75 MCG TABLET PO (06:03)
[2024-05-31] MEDS: cloZAPine 100 MG TABLET PO ×2 (09:15→11:48)
[2024-05-31] MEDS: risperiDONE 3 MG TABLET 6 MG PO ×2 (09:21→21:04)
[2024-05-31] MEDS: lamoTRIgine 25 MG TABLET 50 MG PO ×2 (09:22→21:04)
[2024-05-31] MEDS: Famotidine 20 MG TABLET PO (09:22)
[2024-05-31] MEDS: Sennosides 8.6 MG TABLET PO (09:22)
[2024-05-31] MEDS: polyethylene glycoL 3350 17 GM POWD.PACK PO (09:24)
[2024-05-31 09:30] VITALS: BP 115/76; PULSE 83; RESP 18; TEMP 36.6; O2SAT 97
[2024-05-31] MEDS: Acetaminophen 325 MG TABLET 650 MG PO ×2 (10:22→21:03)
--- NOTE | 2024-05-31 11:13 | P.PNPSI_ITS ---
Subjective Subjective Date of Service: 05/31/24 Reason For Visit: Psychosis Interim History: Met patient. Discussed with Nursing. Overall has been isolative, but pleasant and out of room for meals . Patient and thankful around ECT treatment and very surprising around level of improvement. Otherwise does have some discomfort and frequent Tylenol requirements. Will schedule is twice per day and have additional as needed doses for back discomfort. No SI. Medication Compliance: Yes Side effects from medications: No Attending Groups: No Review of Systems Acute medical concerns: No Review of Systems Review of Systems back pain Mental Status Exam Mental Status Exam Narrative: Pt alert and oriented; behavior is cooperative, friendly and calm; patient is not in distress; dressed in casual attire in bed, reading. Mood is described as better and affect congruent, more calm; eye contact appropriate; Speech is normal rate, volume and prosody and not pressured; no psychomotor agitation/retardation present; thought process is organized and goal directed; Thought content is on tx; minimal delusional thinking expressed; no SI; no HI. Minimal hallucinations. Patients insight and judgment improving Diagnostics Vital Signs (24Hr): Vital Signs - 24 hr 05/30/24 20:29 05/31/24 09:30 Temperature 97.3 F 97.8 F Pulse Rate 88 83 Respiratory Rate 16 18 Blood Pressure 103/58 L 115/76 Pulse Oximetry 97 97 Oxygen Delivery Method Room Air Room Air BMI result Body Mass Index 26.5 Labs 04/05/24 15:38 04/05/24 15:38 Imaging Radiology Impressions: ITS Impressions Head CT 03/18/24 09:42 IMPRESSION: 1. No evidence of acute intracranial hemorrhage or edematous territorial infarction. 2. Mild to moderate underlying microangiopathy. 3. Arachnoid cyst in the right middle cranial fossa. Electronically signed by: Mino Arriaga DO 03/18/2024 06:26 PM EST RP Head CT 03/19/24 01:36 IMPRESSION: 1. Left frontal scalp soft tissue swelling. 2. No acute intracranial process seen. 3. Stable right middle cranial fossa arachnoid cyst. Electronically signed by: Andreas Olsen MD 03/19/2024 02:08 AM EST RP Head CT 04/05/24 16:20 IMPRESSION: 1. No acute intracranial hemorrhage or mass effect. 2. Stable right middle cranial fossa arachnoid cyst. Electronically signed by: Getachew Arana MD 04/05/2024 05:15 PM EST RP KUB X-Ray 04/16/24 13:57 IMPRESSION: Nonobstructive bowel gas pattern. Large colonic and rectal fecal material. Electronically signed by: Chencho Ugalde MD 04/16/2024 02:13 PM EST RP Medications Medications Current Medications Acetaminophen (Acetaminophen 325 Mg Tablet) 650 mg PO Q6H PRN PRN Reason: Headache/Pain Mild Scale (1-3) Last Admin: 05/31/24 10:22 Dose: 650 mg Al Hydroxide/Mg Hydroxide (Magnesium Hydrox/Alum Hydrox 30 Ml Oral.Susp) 30 ml PO Q6H PRN PRN Reason: Heartburn/Nausea Clozapine (Clozapine 100 Mg Tablet) 100 mg PO DAILY [facility] Last Admin: 05/31/24 09:15 Dose: 100 mg Clozapine (Clozapine 100 Mg Tablet) 100 mg PO DAILY@1230 [facility] Last Admin: 05/30/24 11:42 Dose: 100 mg Clozapine (Clozapine 100 Mg Tablet) 200 mg PO BEDTIME [facility] Last Admin: 05/30/24 20:29 Dose: 200 mg Famotidine (Famotidine 20 Mg Tablet) 20 mg PO DAILY [facility] Last Admin: 05/31/24 09:22 Dose: 20 mg Hydrocortisone (Hydrocortisone 2.5 % Rectal Cr 30 Gm Tube) 1 appl IN DAILY [facility] Last Admin: 05/31/24 09:24 Dose: Not Given Hydroxyzine HCl (Hydroxyzine Hcl 25 Mg Tablet) 25 mg PO Q6H PRN PRN Reason: Anxiety Last Admin: 05/28/24 21:31 Dose: 25 mg Lamotrigine (Lamotrigine 25 Mg Tablet) 50 mg PO BID [facility] Last Admin: 05/31/24 09:22 Dose: 50 mg Levothyroxine Sodium (Levothyroxine Sodium 75 Mcg Tablet) 75 mcg PO DAILY@0600 [facility] Last Admin: 05/31/24 06:03 Dose: 75 mcg Magnesium Hydroxide (Milk Of Magnesia 30 Ml Oral.Susp) 30 ml PO BID PRN PRN Reason: Constipation Last Admin: 05/30/24 17:29 Dose: 30 ml Mirtazapine (Mirtazapine 7.5 Mg Tablet) 7.5 mg PO BEDTIME [facility] Last Admin: 05/30/24 20:29 Dose: 7.5 mg Naloxone HCl (Naloxone Hcl 0.4 Mg/Ml Vial) 0.04 mg IVPUSH Q5M PRN PRN Reason: Excessive sedation or RR < 8 Nicotine Polacrilex (Nicotine Polacrilex 2 Mg Gum) 2 mg BUCCAL Q2H PRN PRN Reason: Nicotine Cravings Olanzapine (Olanzapine 5 Mg Tablet) 5 mg PO Q4H PRN PRN Reason: Psychosis Last Admin: 05/09/24 10:24 Dose: 5 mg Polyethylene Glycol (Polyethylene Glycol 3350 17 Gm Powd.Pack) 17 gm PO DAILY PRN PRN Reason: Constipation Last Admin: 04/18/24 00:24 Dose: 17 gm Polyethylene Glycol (Polyethylene Glycol 3350 17 Gm Powd.Pack) 17 gm PO DAILY [facility] Last Admin: 05/31/24 09:24 Dose: 17 gm Risperidone (Risperidone 3 Mg Tablet) 6 mg PO BID [facility] Last Admin: 05/31/24 09:21 Dose: 6 mg Senna (Sennosides 8.6 Mg Tablet) 8.6 mg PO DAILY [facility] Last Admin: 05/31/24 09:22 Dose: 8.6 mg Trazodone HCl (Trazodone Hcl 50 Mg Tablet) 50 mg PO BEDTIME MRX1 PRN PRN Reason: Insomnia Last Admin: 05/28/24 21:31 Dose: 50 mg Allergies Allergies Allergy/AdvReac Type Severity Reaction Status Date / Time trifluoperazine Allergy Unknown Verified 03/11/24 14:16 [From Stelazine] Assessment & Plan Assessment & Plan (1) Schizophrenia: Status: Acute Code(s): F20.9 - Schizophrenia, unspecified (2) Diverticulosis: Status: Chronic Code(s): K57.90 - Diverticulosis of intestine, part unspecified, without perforation or abscess without bleeding Plan Patient is a 73-year-old female with a PMH significant for HTN, post op VTE 2 years ago, hypothyroidism, and mood disorder who was admitted to [facility] after eloping from [facility] and walking into traffic on purpose. Patient apparently believes a friend is writing a horrible story about and does not want to live after everyone reads the book as she believes everyone will hate her. Hospitalist consult for ECT risk stratification. ECT risk stratification Previously underwent ECT without complications in 1998 Currently no significant medical complaints or PMH EKG from 7 days prior at time of admission negative for ischemia RCRI 0 points, class I risk Will repeat EKG before completing risk stratification Plan 1. Continue Risperdal 6 mg p.o. b.i.d.. 2. Clozaril has been changed to 100 mg p.o. b.i.d. and 200 mg p.o. q.h.s. to avoid over-sedation. 3. So far her psychosis had become stable. 4. ECT was considered and on May 13 the patient request this procedure since she reported she is feeling worse. We will try to schedule her ECT as soon as possible. 5. Referral for [facility]SS team. They assessed her on May 05 and stated that she is not at baseline but it seems that this is now her new baseline. So far she had not been assaultive for grossly disorganized after the medication changes and increase of Clozaril. 6. Family meeting next week to address the possibility of ECT and disposition. On May 13 her son who is the affirmed healthcare proxy signed herself in to ECT. 7. Zyprexa 5 mg p.o. q.6 hours PRNs hallucinations. 8. The patient is not at baseline at this moment we will continue with ECT. 9. Start Remeron 7.5 p.o. q.h.s. to target depression 05/31: no changes. ECT Thursday 06/01 Reason for continued inpatient stay Substantial Risk for: inability to function Time Spent With Patient Time: Total time managing care of this patient today ____ minutes.
[2024-05-31 20:00] VITALS: BP 121/75; PULSE 84; RESP 18; TEMP 36.2; O2SAT 97
[2024-05-31] MEDS: traZODone HCL 50 MG TABLET PO (21:04)
[2024-05-31] MEDS: Mirtazapine 7.5 MG TABLET PO (21:04)
[2024-05-31] MEDS: hydrOXYzine HCL 25 MG TABLET PO (21:04)
[2024-05-31] MEDS: cloZAPine 100 MG TABLET 200 MG PO (21:04)
[2024-06-01] VITALS (9 sets, daily range): BP systolic 109–160; BP diastolic 62–79; PULSE 68–91; RESP 16–20; TEMP 36.2–36.8; O2SAT 95–98
--- NOTE | 2024-06-01 07:03 | HO.ANESPROP2 ---
[facility], [facility] Active Problems Active Problems: All Active Problems Arachnoid cyst (Acute) Diverticulosis (Chronic) Pre-op evaluation (Acute) Schizophrenia (Acute) Suicidal ideation (Acute) Past Medical History Medical History Diverticulosis Schizophrenia CKD (chronic kidney disease) Hyperlipidemia Type 2 diabetes mellitus Hypothyroidism HTN (hypertension) GERD (gastroesophageal reflux disease) Mood disorder Functional capacity: independent ambulation Family History Family history of problems with anesthesia: No Surgical History History of Problems with Anesthesia: No Social History Social History Household Members: None Household Members Other:: Lives at [facility] Housing: Assisted Living Facility Do you presently have visiting nurse or other home services: Yes Alcohol intake: current Patient Tobacco Use Status: Former Tobacco user Tobacco use type: Cigarette Cigarette Packs Per Day: 3 Cigarettes Per Day: 60.0 Years Smoked: 16 Smoked in Last 30 Days: No Patient Interested in Nicotine Replacement: No Second Hand Smoke Exposure: No Use of substances other than those prescribed or required for medical reasons: No Currently Displaying Signs/Symptoms of Drug Intoxication Withdrawal: No Have you been hit, kicked, punched, or otherwise hurt by someone within the past year? If so, by whom?: No Do you feel safe in your current relationship?: No Current Relationship Is there a partner from a previous relationship who is making you feel unsafe now?: No Are you made to feel afraid or neglected: Yes (Pt reports she is afraid of the person writing the book about her.) Advance Directives: No Advance Directives Information Provided: Yes Do you have thoughts of harming others: None Do you have a plan to hurt others: No Plan Recently lost weight without trying: Unsure Nutrition Risks: No Nutritional Risk Patient : No : No Poor oral hygiene: No service: No Sexual orientation: Straight/Heterosexual Meds Allergies Allergy/AdvReac Type Severity Reaction Status Date / Time trifluoperazine Allergy Unknown Verified 03/11/24 14:16 [From Stelazine] Active Medications: Current Medications Acetaminophen (Acetaminophen 325 Mg Tablet) 650 mg PO BID PRN PRN Reason: Headache/Pain Mild Scale (1-3) Acetaminophen (Acetaminophen 325 Mg Tablet) 650 mg PO BID YURY Last Admin: 05/31/24 21:03 Dose: 650 mg Al Hydroxide/Mg Hydroxide (Magnesium Hydrox/Alum Hydrox 30 Ml Oral.Susp) 30 ml PO Q6H PRN PRN Reason: Heartburn/Nausea Clozapine (Clozapine 100 Mg Tablet) 100 mg PO DAILY [facility] Last Admin: 05/31/24 09:15 Dose: 100 mg Clozapine (Clozapine 100 Mg Tablet) 100 mg PO DAILY@1230 [facility] Last Admin: 05/31/24 11:48 Dose: 100 mg Clozapine (Clozapine 100 Mg Tablet) 200 mg PO BEDTIME [facility] Last Admin: 05/31/24 21:04 Dose: 200 mg Famotidine (Famotidine 20 Mg Tablet) 20 mg PO DAILY [facility] Last Admin: 05/31/24 09:22 Dose: 20 mg Hydrocortisone (Hydrocortisone 2.5 % Rectal Cr 30 Gm Tube) 1 appl MO DAILY [facility] Last Admin: 05/31/24 09:24 Dose: Not Given Hydroxyzine HCl (Hydroxyzine Hcl 25 Mg Tablet) 25 mg PO Q6H PRN PRN Reason: Anxiety Last Admin: 05/31/24 21:04 Dose: 25 mg Lamotrigine (Lamotrigine 25 Mg Tablet) 50 mg PO BID [facility] Last Admin: 05/31/24 21:04 Dose: 50 mg Levothyroxine Sodium (Levothyroxine Sodium 75 Mcg Tablet) 75 mcg PO DAILY@0600 [facility] Last Admin: 06/01/24 06:37 Dose: Not Given Magnesium Hydroxide (Milk Of Magnesia 30 Ml Oral.Susp) 30 ml PO BID PRN PRN Reason: Constipation Last Admin: 05/30/24 17:29 Dose: 30 ml Mirtazapine (Mirtazapine 7.5 Mg Tablet) 7.5 mg PO BEDTIME [facility] Last Admin: 05/31/24 21:04 Dose: 7.5 mg Naloxone HCl (Naloxone Hcl 0.4 Mg/Ml Vial) 0.04 mg IVPUSH Q5M PRN PRN Reason: Excessive sedation or RR < 8 Nicotine Polacrilex (Nicotine Polacrilex 2 Mg Gum) 2 mg BUCCAL Q2H PRN PRN Reason: Nicotine Cravings Olanzapine (Olanzapine 5 Mg Tablet) 5 mg PO Q4H PRN PRN Reason: Psychosis Last Admin: 05/09/24 10:24 Dose: 5 mg Polyethylene Glycol (Polyethylene Glycol 3350 17 Gm Powd.Pack) 17 gm PO DAILY PRN PRN Reason: Constipation Last Admin: 04/18/24 00:24 Dose: 17 gm Polyethylene Glycol (Polyethylene Glycol 3350 17 Gm Powd.Pack) 17 gm PO DAILY [facility] Last Admin: 05/31/24 09:24 Dose: 17 gm Risperidone (Risperidone 3 Mg Tablet) 6 mg PO BID [facility] Last Admin: 05/31/24 21:04 Dose: 6 mg Senna (Sennosides 8.6 Mg Tablet) 8.6 mg PO DAILY [facility] Last Admin: 05/31/24 09:22 Dose: 8.6 mg Trazodone HCl (Trazodone Hcl 50 Mg Tablet) 50 mg PO BEDTIME MRX1 PRN PRN Reason: Insomnia Last Admin: 05/31/24 21:04 Dose: 50 mg Home Medications ?Medication ?Instructions ?Recorded ?Confirmed ?Last Taken ?Type clozapine 100 mg tablet 100 mg PO DAILY 03/11/24 03/11/24 03/11/24 History clozapine 100 mg tablet 300 mg PO BEDTIME 03/11/24 03/11/24 03/10/24 History famotidine 20 mg tablet 20 mg PO DAILY 03/11/24 03/11/24 03/11/24 History lamotrigine 25 mg tablet 50 mg PO BID 03/11/24 03/11/24 03/11/24 History levothyroxine 75 mcg tablet 75 mcg PO DAILY 03/11/24 03/11/24 03/11/24 History risperidone 2 mg tablet 6 mg PO BID 03/11/24 03/11/24 03/11/24 History sennosides 8.6 mg tablet (senna) 8.6 mg PO DAILY PRN Constipation 03/11/24 03/11/24 Unknown History Exam Height,Weight and Vital Signs: Height 5 ft 6 in Weight 74.559 kg Last Vital Signs Temp 98.3 F 06/01/24 06:54 Pulse 80 06/01/24 06:54 Resp 18 06/01/24 06:54 BP 135/79 06/01/24 06:54 Pulse Ox 97 06/01/24 06:54 O2 Del Method Room Air 06/01/24 06:54 O2 Flow Rate 2 05/29/24 07:55 Pertinent Lab Results Pertinent Lab Results: Laboratory Tests 03/11/24 03/11/24 03/12/24 11:07 13:25 13:15 WBC 7.8 RBC 3.77 L Hgb 11.6 L Hct 34.5 L MCV 91.5 MCH 30.8 MCHC 33.6 RDW 14.8 Plt Count 205 MPV 10.3 Immature Gran % (Auto) 0.4 Neut % (Auto) 80.2 H Lymph % (Auto) 9.8 L [place] % (Auto) 8.6 Eos % (Auto) 0.5 Baso % (Auto) 0.5 Lymph # (Auto) 0.8 L [place] # (Auto) 0.7 Eos # (Auto) 0.0 Baso # (Auto) 0.0 Abs Immat Gran (auto) 0.03 Absolute Neuts (auto) 6.2 Absolute Nucleated RBC 0.000 Nucleated RBC % (auto) 0.0 Sodium 141 Potassium 4.2 Chloride 107 Carbon Dioxide 24 Anion Gap 14 BUN 18 H Creatinine 1.47 H Estim Creat Clear Calc 36.2 Estimated GFR 35 POC Glucose 118 H Random Glucose 119 H Fasting Glucose Estimat Average Glucose Hemoglobin A1c % Calcium 9.8 Magnesium Total Bilirubin 0.3 AST 20 ALT 16 Alkaline Phosphatase 90 Total Protein 6.0 L Albumin 4.0 Triglycerides Cholesterol LDL Cholesterol, Calc HDL Cholesterol Vitamin B12 Folate TSH Urine Color Yellow Urine Appearance Clear Urine pH 6.5 Ur Specific Guild <= 1.005 Urine Protein Negative Urine Glucose (UA) Negative Urine Ketones Negative Urine Blood Negative Urine Nitrite Negative Ur Leukocyte Esterase Small (1+) H Urine RBC 0-2 Urine WBC 0-5 Ur Squamous Epith Cells 0-2 Urine Bacteria None Seen Hyaline Casts 0-2 Urine Opiates Screen Not Detected Ur Buprenorphine Scrn Not Detected Ur Oxycodone Screen Not Detected Urine Methadone Screen Not Detected Urine Fentanyl Screen Not Detected Ur Barbiturates Screen Not Detected Ur Phencyclidine Scrn Not Detected Ur Amphetamines Screen Not Detected U Benzodiazepines Scrn Not Detected Urine Cocaine Screen Not Detected U Marijuana (THC) Screen Not Detected Ethyl Alcohol < 10 03/13/24 03/18/24 03/25/24 08:18 07:57 08:12 WBC RBC Hgb Hct MCV MCH MCHC RDW Plt Count MPV Immature Gran % (Auto) Neut % (Auto) Lymph % (Auto) [place] % (Auto) Eos % (Auto) Baso % (Auto) Lymph # (Auto) [place] # (Auto) Eos # (Auto) Baso # (Auto) Abs Immat Gran (auto) Absolute Neuts (auto) 4.2 3.3 Absolute Nucleated RBC Nucleated RBC % (auto) Sodium 142 Potassium 4.0 Chloride 108 Carbon Dioxide 28 Anion Gap 10 L BUN 23 H Creatinine 1.46 H Estim Creat Clear Calc 36.5 Estimated GFR 35 POC Glucose Random Glucose Fasting Glucose 114 H Estimat Average Glucose 114 Hemoglobin A1c % 5.6 Calcium 9.8 Magnesium 2.3 Total Bilirubin 0.4 AST 16 ALT 10 Alkaline Phosphatase 85 Total Protein 5.8 L Albumin 4.0 Triglycerides 133 Cholesterol 218 H LDL Cholesterol, Calc 144 H HDL Cholesterol 48 Vitamin B12 443 Folate 10.9 TSH 3.25 Urine Color Urine Appearance Urine pH Ur Specific Guild Urine Protein Urine Glucose (UA) Urine Ketones Urine Blood Urine Nitrite Ur Leukocyte Esterase Urine RBC Urine WBC Ur Squamous Epith Cells Urine Bacteria Hyaline Casts Urine Opiates Screen Ur Buprenorphine Scrn Ur Oxycodone Screen Urine Methadone Screen Urine Fentanyl Screen Ur Barbiturates Screen Ur Phencyclidine Scrn Ur Amphetamines Screen U Benzodiazepines Scrn Urine Cocaine Screen U Marijuana (THC) Screen Ethyl Alcohol 04/03/24 04/05/24 04/05/24 07:40 15:20 15:38 WBC 6.6 RBC 3.94 L Hgb 12.0 Hct 35.8 L MCV 90.9 MCH 30.5 MCHC 33.5 RDW 13.7 Plt Count 208 MPV 10.5 Immature Gran % (Auto) Neut % (Auto) Lymph % (Auto) [place] % (Auto) Eos % (Auto) Baso % (Auto) Lymph # (Auto) [place] # (Auto) Eos # (Auto) Baso # (Auto) Abs Immat Gran (auto) Absolute Neuts (auto) 5.0 Absolute Nucleated RBC 0.000 Nucleated RBC % (auto) 0.0 Sodium 144 Potassium 3.5 Chloride 106 Carbon Dioxide 25 Anion Gap 17 BUN 17 H Creatinine 1.50 H Estim Creat Clear Calc 37.2 Estimated GFR 34 POC Glucose 100 Random Glucose 74 Fasting Glucose Estimat Average Glucose Hemoglobin A1c % Calcium 9.8 Magnesium Total Bilirubin 0.4 AST 21 ALT 8 Alkaline Phosphatase 127 H Total Protein 5.8 L Albumin 3.9 Triglycerides Cholesterol LDL Cholesterol, Calc HDL Cholesterol Vitamin B12 Folate TSH Urine Color Urine Appearance Urine pH Ur Specific Guild Urine Protein Urine Glucose (UA) Urine Ketones Urine Blood Urine Nitrite Ur Leukocyte Esterase Urine RBC Urine WBC Ur Squamous Epith Cells Urine Bacteria Hyaline Casts Urine Opiates Screen Ur Buprenorphine Scrn Ur Oxycodone Screen Urine Methadone Screen Urine Fentanyl Screen Ur Barbiturates Screen Ur Phencyclidine Scrn Ur Amphetamines Screen U Benzodiazepines Scrn Urine Cocaine Screen U Marijuana (THC) Screen Ethyl Alcohol 04/12/24 04/15/24 04/22/24 08:30 08:26 07:29 WBC RBC Hgb Hct MCV MCH MCHC RDW Plt Count MPV Immature Gran % (Auto) Neut % (Auto) Lymph % (Auto) [place] % (Auto) Eos % (Auto) Baso % (Auto) Lymph # (Auto) [place] # (Auto) Eos # (Auto) Baso # (Auto) Abs Immat Gran (auto) Absolute Neuts (auto) 3.7 6.0 3.4 Absolute Nucleated RBC Nucleated RBC % (auto) Sodium Potassium Chloride Carbon Dioxide Anion Gap BUN Creatinine Estim Creat Clear Calc Estimated GFR POC Glucose Random Glucose Fasting Glucose Estimat Average Glucose Hemoglobin A1c % Calcium Magnesium Total Bilirubin AST ALT Alkaline Phosphatase Total Protein Albumin Triglycerides Cholesterol LDL Cholesterol, Calc HDL Cholesterol Vitamin B12 Folate TSH Urine Color Urine Appearance Urine pH Ur Specific Guild Urine Protein Urine Glucose (UA) Urine Ketones Urine Blood Urine Nitrite Ur Leukocyte Esterase Urine RBC Urine WBC Ur Squamous Epith Cells Urine Bacteria Hyaline Casts Urine Opiates Screen Ur Buprenorphine Scrn Ur Oxycodone Screen Urine Methadone Screen Urine Fentanyl Screen Ur Barbiturates Screen Ur Phencyclidine Scrn Ur Amphetamines Screen U Benzodiazepines Scrn Urine Cocaine Screen U Marijuana (THC) Screen Ethyl Alcohol 04/29/24 05/06/24 05/13/24 08:53 08:22 08:34 WBC RBC Hgb Hct MCV MCH MCHC RDW Plt Count MPV Immature Gran % (Auto) Neut % (Auto) Lymph % (Auto) [place] % (Auto) Eos % (Auto) Baso % (Auto) Lymph # (Auto) [place] # (Auto) Eos # (Auto) Baso # (Auto) Abs Immat Gran (auto) Absolute Neuts (auto) 6.0 3.7 4.6 Absolute Nucleated RBC Nucleated RBC % (auto) Sodium Potassium Chloride Carbon Dioxide Anion Gap BUN Creatinine Estim Creat Clear Calc Estimated GFR POC Glucose Random Glucose Fasting Glucose Estimat Average Glucose Hemoglobin A1c % Calcium Magnesium Total Bilirubin AST ALT Alkaline Phosphatase Total Protein Albumin Triglycerides Cholesterol LDL Cholesterol, Calc HDL Cholesterol Vitamin B12 Folate TSH Urine Color Urine Appearance Urine pH Ur Specific Guild Urine Protein Urine Glucose (UA) Urine Ketones Urine Blood Urine Nitrite Ur Leukocyte Esterase Urine RBC Urine WBC Ur Squamous Epith Cells Urine Bacteria Hyaline Casts Urine Opiates Screen Ur Buprenorphine Scrn Ur Oxycodone Screen Urine Methadone Screen Urine Fentanyl Screen Ur Barbiturates Screen Ur Phencyclidine Scrn Ur Amphetamines Screen U Benzodiazepines Scrn Urine Cocaine Screen U Marijuana (THC) Screen Ethyl Alcohol 05/20/24 05/27/24 10:23 10:43 WBC RBC Hgb Hct MCV MCH MCHC RDW Plt Count MPV Immature Gran % (Auto) Neut % (Auto) Lymph % (Auto) [place] % (Auto) Eos % (Auto) Baso % (Auto) Lymph # (Auto) [place] # (Auto) Eos # (Auto) Baso # (Auto) Abs Immat Gran (auto) Absolute Neuts (auto) 5.4 8.1 Absolute Nucleated RBC Nucleated RBC % (auto) Sodium Potassium Chloride Carbon Dioxide Anion Gap BUN Creatinine Estim Creat Clear Calc Estimated GFR POC Glucose Random Glucose Fasting Glucose Estimat Average Glucose Hemoglobin A1c % Calcium Magnesium Total Bilirubin AST ALT Alkaline Phosphatase Total Protein Albumin Triglycerides Cholesterol LDL Cholesterol, Calc HDL Cholesterol Vitamin B12 Folate TSH Urine Color Urine Appearance Urine pH Ur Specific Guild Urine Protein Urine Glucose (UA) Urine Ketones Urine Blood Urine Nitrite Ur Leukocyte Esterase Urine RBC Urine WBC Ur Squamous Epith Cells Urine Bacteria Hyaline Casts Urine Opiates Screen Ur Buprenorphine Scrn Ur Oxycodone Screen Urine Methadone Screen Urine Fentanyl Screen Ur Barbiturates Screen Ur Phencyclidine Scrn Ur Amphetamines Screen U Benzodiazepines Scrn Urine Cocaine Screen U Marijuana (THC) Screen Ethyl Alcohol Airway Mallampati Class: II (poor dentition) TM Dist: >3cm Neck ROM: Full Heart: rrr Lungs: cta Assessment and Plan Assessment Anesthesia Assessment: Anesthesia Plan Discussed and Chart Reviewed Final Anesthetic Review Family History of Problems with Anesthesia: No History of Problems with Anesthesia: No NPO: Yes ASA Class: III Final Preanesthetic Review: No Changes in Pt Med Stat, Meds/Allgs Chart Reviewed and Consent Obtained/Reviewed Patient Risk: Intermediate Procedure Risk: Intermediate Anesthetic Plan Anesthetic Plan: GA Disposition: Standard PACU
--- NOTE | 2024-06-01 07:40 | MHC.SHP ---
Pre-Procedural Eval Section A - 24 Hr Update-Section A only Date of Service: 06/01/24 The patient is an INPATIENT: Yes Changes since office visit: No Cold of Flu in the past 2 weeks, No New Medical Problems, No Changes in Medication and No Patient answered all questions The patient has been examined within 24 hours of the surgical procedure. The History & Physical has been completed within 30 days and I have reviewed it.: Yes Section B - Complete if H&P > 30 days Chief Complaint: Psychosis Details of Present Illness: pt says ECT is working...my thoughts are are not evil... Relevant Family History (Specify if Yes): No Relevant Social History: None Medical History: No relevant PMH Allergies: Allergies Allergy/AdvReac Type Severity Reaction Status Date / Time trifluoperazine Allergy Unknown Verified 03/11/24 14:16 [From Adrian] Review of Systems Sugical H&P ROS: Negative: Constitution and Psychiatric (feeling better) Plan Diagnosis/Plan: Unchanged I have reviewed the history and physical and performed a pertinent physical examination on my patient. No changes have occurred unless specified. Time Spent With Patient Time: Total time managing care of this patient today ____ minutes.
--- NOTE | 2024-06-01 07:42 | HO.ECTPROC ---
ECT Procedure Note Diagnosis/Treatment Date of Service: 06/01/24 Diagnosis: Schizoaffective Disorder Previous ECT Date: 05/29/24 Current Treatment Number: 8 Treatment: Series Interval Clinical Notes: feeling better and says ECT working...no evil thoughts.. Time: Total time managing care of this patient today ____ minutes. ECT Settings Device: THYMATRON DGx Electrode Placement: Bifrontal Program/Pulse Width: 0.50 Energy Percent: 100 Seizure Duration By EEG (in seconds): 15 By Motor Observation (in seconds): 14 Medications Administration General Anesthetic: Etomidate (12) Muscle Relaxant: Succinylcholine (80) Ancillary Medications Anti-emetics: Zofran - Pre ECT Airway Management Airway Management: Bag Mask Ventilation Treatment Recommendations No Changes Recommended: No change Electrode Placement: Bifrontal Program/Pulse Width: 0.50 Energy Percent: 100 Notes: continue Series short seizure (14 seconds) but no changes recommended as patient reports doing better Pt Tolerated Procedure w/o Issue: Yes
[2024-06-01] MEDS: Acetaminophen 325 MG TABLET 650 MG PO ×2 (09:25→21:25)
[2024-06-01] MEDS: polyethylene glycoL 3350 17 GM POWD.PACK PO (09:25)
[2024-06-01] MEDS: lamoTRIgine 25 MG TABLET 50 MG PO ×2 (09:26→21:24)
[2024-06-01] MEDS: Levothyroxine Sodium 75 MCG TABLET PO (09:26)
[2024-06-01] MEDS: risperiDONE 3 MG TABLET 6 MG PO ×2 (09:26→21:26)
[2024-06-01] MEDS: cloZAPine 100 MG TABLET PO ×2 (09:27→11:51)
[2024-06-01] MEDS: Famotidine 20 MG TABLET PO (09:27)
[2024-06-01] MEDS: Sennosides 8.6 MG TABLET PO (09:27)
--- NOTE | 2024-06-01 11:43 | HO.PSYCHPN ---
Subjective Subjective Date of Service: 06/01/24 Reason For Visit: Psychosis Subjective Notes: Conditional Voluntary Healthcare Proxy: Yes Interim History: Pt completed ect without difficulty improving mental status decrease concerns regarding being demonic evil Medication Compliance: Yes Mental Status Exam Mental Status Exam Narrative: pt pleasant cooperative mood ok improved feels relieved less tormented denies current si hi alert oriented no c/o side effects some delusional preoccuption impulse control intact Diagnostics Vital Signs (24Hr): Vital Signs - 24 hr 05/31/24 20:00 06/01/24 06:28 06/01/24 06:54 Temperature 97.2 F 97.2 F 98.3 F Pulse Rate 84 78 80 Respiratory Rate 18 16 18 Blood Pressure 121/75 114/71 135/79 Pulse Oximetry 97 95 97 Oxygen Delivery Method Room Air Room Air Room Air Oxygen Flow Rate 06/01/24 08:03 06/01/24 08:05 06/01/24 08:10 Temperature 98 F Pulse Rate 91 82 83 Respiratory Rate 16 16 16 Blood Pressure 160/77 H 136/73 124/72 Pulse Oximetry 98 98 96 Oxygen Delivery Method Nasal Cannula Nasal Cannula Nasal Cannula Oxygen Flow Rate 2 2 2 06/01/24 08:15 06/01/24 08:26 06/01/24 09:22 Temperature 97.1 F 97.5 F Pulse Rate 83 83 68 Respiratory Rate 16 16 16 Blood Pressure 120/72 117/72 124/62 Pulse Oximetry 96 96 98 Oxygen Delivery Method Nasal Cannula Nasal Cannula Oxygen Flow Rate 2 BMI result Body Mass Index 26.5 Labs 04/05/24 15:38 04/05/24 15:38 Imaging Radiology Impressions: ITS Impressions Head CT 03/18/24 09:42 IMPRESSION: 1. No evidence of acute intracranial hemorrhage or edematous territorial infarction. 2. Mild to moderate underlying microangiopathy. 3. Arachnoid cyst in the right middle cranial fossa. Electronically signed by: Mino Arriaga DO 03/18/2024 06:26 PM EST RP Head CT 03/19/24 01:36 IMPRESSION: 1. Left frontal scalp soft tissue swelling. 2. No acute intracranial process seen. 3. Stable right middle cranial fossa arachnoid cyst. Electronically signed by: Andreas Olsen MD 03/19/2024 02:08 AM EST RP Head CT 04/05/24 16:20 IMPRESSION: 1. No acute intracranial hemorrhage or mass effect. 2. Stable right middle cranial fossa arachnoid cyst. Electronically signed by: Getachew Arana MD 04/05/2024 05:15 PM EST RP KUB X-Ray 04/16/24 13:57 IMPRESSION: Nonobstructive bowel gas pattern. Large colonic and rectal fecal material. Electronically signed by: Chencho Ugalde MD 04/16/2024 02:13 PM EST RP Medications Medications Current Medications Acetaminophen (Acetaminophen 325 Mg Tablet) 650 mg PO BID PRN PRN Reason: Headache/Pain Mild Scale (1-3) Acetaminophen (Acetaminophen 325 Mg Tablet) 650 mg PO BID [facility] Last Admin: 06/01/24 09:25 Dose: 650 mg Al Hydroxide/Mg Hydroxide (Magnesium Hydrox/Alum Hydrox 30 Ml Oral.Susp) 30 ml PO Q6H PRN PRN Reason: Heartburn/Nausea Clozapine (Clozapine 100 Mg Tablet) 100 mg PO DAILY [facility] Last Admin: 06/01/24 09:27 Dose: 100 mg Clozapine (Clozapine 100 Mg Tablet) 100 mg PO DAILY@1230 [facility] Last Admin: 05/31/24 11:48 Dose: 100 mg Clozapine (Clozapine 100 Mg Tablet) 200 mg PO BEDTIME [facility] Last Admin: 05/31/24 21:04 Dose: 200 mg Famotidine (Famotidine 20 Mg Tablet) 20 mg PO DAILY [facility] Last Admin: 06/01/24 09:27 Dose: 20 mg Hydrocortisone (Hydrocortisone 2.5 % Rectal Cr 30 Gm Tube) 1 appl OK DAILY [facility] Last Admin: 06/01/24 09:36 Dose: Not Given Hydroxyzine HCl (Hydroxyzine Hcl 25 Mg Tablet) 25 mg PO Q6H PRN PRN Reason: Anxiety Last Admin: 05/31/24 21:04 Dose: 25 mg Lamotrigine (Lamotrigine 25 Mg Tablet) 50 mg PO BID [facility] Last Admin: 06/01/24 09:26 Dose: 50 mg Levothyroxine Sodium (Levothyroxine Sodium 75 Mcg Tablet) 75 mcg PO DAILY@0600 [facility] Last Admin: 06/01/24 09:26 Dose: 75 mcg Magnesium Hydroxide (Milk Of Magnesia 30 Ml Oral.Susp) 30 ml PO BID PRN PRN Reason: Constipation Last Admin: 05/30/24 17:29 Dose: 30 ml Mirtazapine (Mirtazapine 7.5 Mg Tablet) 7.5 mg PO BEDTIME [facility] Last Admin: 05/31/24 21:04 Dose: 7.5 mg Nicotine Polacrilex (Nicotine Polacrilex 2 Mg Gum) 2 mg BUCCAL Q2H PRN PRN Reason: Nicotine Cravings Olanzapine (Olanzapine 5 Mg Tablet) 5 mg PO Q4H PRN PRN Reason: Psychosis Last Admin: 05/09/24 10:24 Dose: 5 mg Polyethylene Glycol (Polyethylene Glycol 3350 17 Gm Powd.Pack) 17 gm PO DAILY PRN PRN Reason: Constipation Last Admin: 04/18/24 00:24 Dose: 17 gm Polyethylene Glycol (Polyethylene Glycol 3350 17 Gm Powd.Pack) 17 gm PO DAILY [facility] Last Admin: 06/01/24 09:25 Dose: 17 gm Risperidone (Risperidone 3 Mg Tablet) 6 mg PO BID [facility] Last Admin: 06/01/24 09:26 Dose: 6 mg Senna (Sennosides 8.6 Mg Tablet) 8.6 mg PO DAILY [facility] Last Admin: 06/01/24 09:27 Dose: 8.6 mg Trazodone HCl (Trazodone Hcl 50 Mg Tablet) 50 mg PO BEDTIME MRX1 PRN PRN Reason: Insomnia Last Admin: 05/31/24 21:04 Dose: 50 mg Allergies Allergies Allergy/AdvReac Type Severity Reaction Status Date / Time trifluoperazine Allergy Unknown Verified 03/11/24 14:16 [From Stelazine] Assessment & Plan Assessment & Plan (1) Schizophrenia: Status: Acute Code(s): F20.9 - Schizophrenia, unspecified (2) Diverticulosis: Status: Chronic Code(s): K57.90 - Diverticulosis of intestine, part unspecified, without perforation or abscess without bleeding Plan Patient is a 73-year-old female with a PMH significant for HTN, post op VTE 2 years ago, hypothyroidism, and mood disorder who was admitted to [facility] after eloping from [facility] and walking into traffic on purpose. Patient apparently believes a friend is writing a horrible story about and does not want to live after everyone reads the book as she believes everyone will hate her. Hospitalist consult for ECT risk stratification. ECT risk stratification Previously underwent ECT without complications in 1998 Currently no significant medical complaints or PMH EKG from 7 days prior at time of admission negative for ischemia RCRI 0 points, class I risk Will repeat EKG before completing risk stratification Plan 1. Continue Risperdal 6 mg p.o. b.i.d.. 2. Clozaril has been changed to 100 mg p.o. b.i.d. and 200 mg p.o. q.h.s. to avoid over-sedation. 3. So far her psychosis had become stable. 4. ECT was considered and on May 13 the patient request this procedure since she reported she is feeling worse. We will try to schedule her ECT as soon as possible. 5. Referral for [facility] team. They assessed her on May 05 and stated that she is not at baseline but it seems that this is now her new baseline. So far she had not been assaultive for grossly disorganized after the medication changes and increase of Clozaril. 6. Family meeting next week to address the possibility of ECT and disposition. On May 13 her son who is the affirmed healthcare proxy signed herself in to ECT. 7. Zyprexa 5 mg p.o. q.6 hours PRNs hallucinations. 8. The patient is not at baseline at this moment we will continue with ECT. 9. Start Remeron 7.5 p.o. q.h.s. to target depression 05/31/24 Pt seen ect completed pt improving no significant side effects noted less psychotic preoccupation denies active si 06/01/23 improving cont bilat ect monitor for side effecs response to mirtazapine Reason for continued inpatient stay Substantial Risk for: harm to self and rapid decompensation Time Spent With Patient Time: Total time managing care of this patient today ____ minutes.
[2024-06-01] MEDS: cloZAPine 100 MG TABLET 200 MG PO (21:24)
[2024-06-01] MEDS: Mirtazapine 7.5 MG TABLET PO (21:25)
[2024-06-02] MEDS: Levothyroxine Sodium 75 MCG TABLET PO (06:14)
[2024-06-02 08:00] VITALS: BP 94/57; PULSE 97; RESP 16; TEMP 36.8; O2SAT 95
[2024-06-02] MEDS: polyethylene glycoL 3350 17 GM POWD.PACK PO (08:36)
[2024-06-02] MEDS: risperiDONE 3 MG TABLET 6 MG PO ×2 (08:36→20:37)
[2024-06-02] MEDS: Famotidine 20 MG TABLET PO (08:36)
[2024-06-02] MEDS: cloZAPine 100 MG TABLET PO ×2 (08:36→11:56)
[2024-06-02] MEDS: Sennosides 8.6 MG TABLET PO (08:36)
[2024-06-02] MEDS: lamoTRIgine 25 MG TABLET 50 MG PO ×2 (08:36→20:37)
[2024-06-02] MEDS: Acetaminophen 325 MG TABLET 650 MG PO ×2 (08:37→20:38)
--- NOTE | 2024-06-02 11:33 | HO.PSYCHPN ---
Subjective Subjective Date of Service: 06/02/24 Reason For Visit: Psychosis Subjective Notes: Conditional Voluntary Healthcare Proxy: Yes Interim History: The nursing staff reported the patient had been with a brighter affect, she came back yesterday from ECT and she was more talkative. She admitted auditory hallucinations but reported the places where okay. She slept well last night. On interview the patient denies new symptoms she looks much better Mental Status Exam Mental Status Exam Patient Appearance: Appropriate Patient Orientation: Person and Situation Level of Consciousness: Awake and Appropriate Patient Behavior: Guarded and Passive Mood Description: Withdrawn Affect Description: Constricted Patient Cognition Impaired: Yes Ability to Follow Directions: Good Speech Pattern: Clear Hallucinations: Auditory Delusions: Ideas of Reference Thought Process: Distracted and Slowed Thinking Thought Content: positive for [place] and positive for Poverty of Content Judgement: Fair Diagnostics Vital Signs (24Hr): Vital Signs - 24 hr 06/01/24 21:22 06/02/24 08:00 Temperature 97.6 F 98.2 F Pulse Rate 80 97 Respiratory Rate 20 16 Blood Pressure 109/68 94/57 L Pulse Oximetry 96 95 Oxygen Delivery Method Room Air Room Air BMI result Body Mass Index 26.5 Labs 04/05/24 15:38 04/05/24 15:38 Imaging Radiology Impressions: ITS Impressions Head CT 03/18/24 09:42 IMPRESSION: 1. No evidence of acute intracranial hemorrhage or edematous territorial infarction. 2. Mild to moderate underlying microangiopathy. 3. Arachnoid cyst in the right middle cranial fossa. Electronically signed by: Mino Arriaga DO 03/18/2024 06:26 PM EST RP Head CT 03/19/24 01:36 IMPRESSION: 1. Left frontal scalp soft tissue swelling. 2. No acute intracranial process seen. 3. Stable right middle cranial fossa arachnoid cyst. Electronically signed by: Andreas Olsen MD 03/19/2024 02:08 AM EST RP Head CT 04/05/24 16:20 IMPRESSION: 1. No acute intracranial hemorrhage or mass effect. 2. Stable right middle cranial fossa arachnoid cyst. Electronically signed by: Getachew Arana MD 04/05/2024 05:15 PM EST RP KUB X-Ray 04/16/24 13:57 IMPRESSION: Nonobstructive bowel gas pattern. Large colonic and rectal fecal material. Electronically signed by: Chencho Ugalde MD 04/16/2024 02:13 PM [facility] Medications Medications Current Medications Acetaminophen (Acetaminophen 325 Mg Tablet) 650 mg PO BID PRN PRN Reason: Headache/Pain Mild Scale (1-3) Acetaminophen (Acetaminophen 325 Mg Tablet) 650 mg PO BID [facility] Last Admin: 06/02/24 08:37 Dose: 650 mg Al Hydroxide/Mg Hydroxide (Magnesium Hydrox/Alum Hydrox 30 Ml Oral.Susp) 30 ml PO Q6H PRN PRN Reason: Heartburn/Nausea Clozapine (Clozapine 100 Mg Tablet) 100 mg PO DAILY [facility] Last Admin: 06/02/24 08:36 Dose: 100 mg Clozapine (Clozapine 100 Mg Tablet) 100 mg PO DAILY@1230 [facility] Last Admin: 06/01/24 11:51 Dose: 100 mg Clozapine (Clozapine 100 Mg Tablet) 200 mg PO BEDTIME [facility] Last Admin: 06/01/24 21:24 Dose: 200 mg Famotidine (Famotidine 20 Mg Tablet) 20 mg PO DAILY [facility] Last Admin: 06/02/24 08:36 Dose: 20 mg Hydrocortisone (Hydrocortisone 2.5 % Rectal Cr 30 Gm Tube) 1 appl ND DAILY [facility] Last Admin: 06/02/24 08:41 Dose: Not Given Hydroxyzine HCl (Hydroxyzine Hcl 25 Mg Tablet) 25 mg PO Q6H PRN PRN Reason: Anxiety Last Admin: 05/31/24 21:04 Dose: 25 mg Lamotrigine (Lamotrigine 25 Mg Tablet) 50 mg PO BID [facility] Last Admin: 06/02/24 08:36 Dose: 50 mg Levothyroxine Sodium (Levothyroxine Sodium 75 Mcg Tablet) 75 mcg PO DAILY@0600 [facility] Last Admin: 06/02/24 06:14 Dose: 75 mcg Magnesium Hydroxide (Milk Of Magnesia 30 Ml Oral.Susp) 30 ml PO BID PRN PRN Reason: Constipation Last Admin: 05/30/24 17:29 Dose: 30 ml Mirtazapine (Mirtazapine 7.5 Mg Tablet) 7.5 mg PO BEDTIME [facility] Last Admin: 06/01/24 21:25 Dose: 7.5 mg Nicotine Polacrilex (Nicotine Polacrilex 2 Mg Gum) 2 mg BUCCAL Q2H PRN PRN Reason: Nicotine Cravings Olanzapine (Olanzapine 5 Mg Tablet) 5 mg PO Q4H PRN PRN Reason: Psychosis Last Admin: 05/09/24 10:24 Dose: 5 mg Polyethylene Glycol (Polyethylene Glycol 3350 17 Gm Powd.Pack) 17 gm PO DAILY PRN PRN Reason: Constipation Last Admin: 04/18/24 00:24 Dose: 17 gm Polyethylene Glycol (Polyethylene Glycol 3350 17 Gm Powd.Pack) 17 gm PO DAILY [facility] Last Admin: 06/02/24 08:36 Dose: 17 gm Risperidone (Risperidone 3 Mg Tablet) 6 mg PO BID [facility] Last Admin: 06/02/24 08:36 Dose: 6 mg Senna (Sennosides 8.6 Mg Tablet) 8.6 mg PO DAILY [facility] Last Admin: 06/02/24 08:36 Dose: 8.6 mg Trazodone HCl (Trazodone Hcl 50 Mg Tablet) 50 mg PO BEDTIME MRX1 PRN PRN Reason: Insomnia Last Admin: 05/31/24 21:04 Dose: 50 mg Allergies Allergies Allergy/AdvReac Type Severity Reaction Status Date / Time trifluoperazine Allergy Unknown Verified 03/11/24 14:16 [From Stelazine] Assessment & Plan Assessment & Plan (1) Schizophrenia: Status: Acute Code(s): F20.9 - Schizophrenia, unspecified (2) Diverticulosis: Status: Chronic Code(s): K57.90 - Diverticulosis of intestine, part unspecified, without perforation or abscess without bleeding Plan Patient is a 73-year-old female with a PMH significant for HTN, post op VTE 2 years ago, hypothyroidism, and mood disorder who was admitted to [facility] after eloping from [facility] and walking into traffic on purpose. Patient apparently believes a friend is writing a horrible story about and does not want to live after everyone reads the book as she believes everyone will hate her. Hospitalist consult for ECT risk stratification. ECT risk stratification Previously underwent ECT without complications in 1998 Currently no significant medical complaints or PMH EKG from 7 days prior at time of admission negative for ischemia RCRI 0 points, class I risk Will repeat EKG before completing risk stratification Plan 1. Continue Risperdal 6 mg p.o. b.i.d.. 2. Clozaril has been changed to 100 mg p.o. b.i.d. and 200 mg p.o. q.h.s. to avoid over-sedation. 3. So far her psychosis had become stable. 4. ECT was considered and on May 13 the patient request this procedure since she reported she is feeling worse. We will try to schedule her ECT as soon as possible. 5. Referral for [facility] team. They assessed her on May 05 and stated that she is not at baseline but it seems that this is now her new baseline. So far she had not been assaultive for grossly disorganized after the medication changes and increase of Clozaril. 6. Family meeting next week to address the possibility of ECT and disposition. On May 13 her son who is the affirmed healthcare proxy signed herself in to ECT. 7. Zyprexa 5 mg p.o. q.6 hours PRNs hallucinations. 8. The patient is not at baseline at this moment we will continue with ECT. 9. Start Remeron 7.5 p.o. q.h.s. to target depression Reason for continued inpatient stay Substantial Risk for: inability to function, rapid decompensation and med/psych decompensation Time Spent With Patient Time: Total time managing care of this patient today __20__ minutes.
--- NOTE | 2024-06-02 14:08 | HO.POSTANES ---
Post Anesthesia Evaluation Post Anesthesia Evaluation Date of Service: 06/02/24 Vital Signs: Vital Signs Temp Pulse Resp BP Pulse Ox O2 Del Method 06/02/24 08:00 98.2 F 97 16 94/57 L 95 Room Air Anesthesia: General Mental Status: Awake Pain Control: Satisfactory Nausea/Vomiting: None Hydration: Adequate Anesthesia-Related Issues: No Anes. Related Issues
[2024-06-02 20:00] VITALS: BP 106/63; PULSE 91; RESP 18; TEMP 36.4; O2SAT 94
[2024-06-02] MEDS: Mirtazapine 7.5 MG TABLET PO (20:37)
[2024-06-02] MEDS: traZODone HCL 50 MG TABLET PO (20:37)
[2024-06-02] MEDS: cloZAPine 100 MG TABLET 200 MG PO (20:38)
[2024-06-03] VITALS (10 sets, daily range): BP systolic 101–172; BP diastolic 58–92; PULSE 71–83; RESP 16–26; TEMP 36.4–37.1; O2SAT 94–97
[2024-06-03 07:45] LABS: Neut%MD 72.9 %; Neutrophils Absolute Auto 3.8 x10*3/uL (2.0-8.3); WBCANC 5.3 X10*3/uL
[2024-06-03] MEDS: risperiDONE 3 MG TABLET 6 MG PO ×2 (08:35→20:46)
[2024-06-03] MEDS: Acetaminophen 325 MG TABLET 650 MG PO ×2 (08:36→20:46)
[2024-06-03] MEDS: cloZAPine 100 MG TABLET PO ×2 (08:36→12:02)
[2024-06-03] MEDS: Famotidine 20 MG TABLET PO (08:36)
[2024-06-03] MEDS: polyethylene glycoL 3350 17 GM POWD.PACK PO (08:36)
[2024-06-03] MEDS: lamoTRIgine 25 MG TABLET 50 MG PO ×2 (08:36→20:47)
[2024-06-03] MEDS: Sennosides 8.6 MG TABLET PO (08:36)
--- NOTE | 2024-06-03 13:38 | P.CONAN_ITS ---
HPI - Anesthesia Eval Consult details Narrative: 74 yo frmale patient for ECT PMFSH Active Problems Active Problems: All Active Problems Arachnoid cyst (Acute) Diverticulosis (Chronic) Pre-op evaluation (Acute) Schizophrenia (Acute) Suicidal ideation (Acute) Past Medical History Medical History Diverticulosis Schizophrenia CKD (chronic kidney disease) Hyperlipidemia Type 2 diabetes mellitus Hypothyroidism HTN (hypertension) GERD (gastroesophageal reflux disease) Mood disorder Family History Family history of problems with anesthesia: No Surgical History History of Problems with Anesthesia: No Social History Social History Household Members: None Household Members Other:: Lives at [facility] Housing: Assisted Living Facility Do you presently have visiting nurse or other home services: Yes Alcohol intake: current Patient Tobacco Use Status: Former Tobacco user Tobacco use type: Cigarette Cigarette Packs Per Day: 3 Cigarettes Per Day: 60.0 Years Smoked: 16 Smoked in Last 30 Days: No Patient Interested in Nicotine Replacement: No Second Hand Smoke Exposure: No Use of substances other than those prescribed or required for medical reasons: No Currently Displaying Signs/Symptoms of Drug Intoxication Withdrawal: No Have you been hit, kicked, punched, or otherwise hurt by someone within the past year? If so, by whom?: No Do you feel safe in your current relationship?: No Current Relationship Is there a partner from a previous relationship who is making you feel unsafe now?: No Are you made to feel afraid or neglected: Yes (Pt reports she is afraid of the person writing the book about her.) Advance Directives: No Advance Directives Information Provided: Yes Do you have thoughts of harming others: None Do you have a plan to hurt others: No Plan Recently lost weight without trying: Unsure Nutrition Risks: No Nutritional Risk Patient : No : No Poor oral hygiene: No service: No Sexual orientation: Straight/Heterosexual Meds Allergies Allergy/AdvReac Type Severity Reaction Status Date / Time trifluoperazine Allergy Unknown Verified 03/11/24 14:16 [From Stelazine] Active Medications: Current Medications Acetaminophen (Acetaminophen 325 Mg Tablet) 650 mg PO BID PRN PRN Reason: Headache/Pain Mild Scale (1-3) Acetaminophen (Acetaminophen 325 Mg Tablet) 650 mg PO BID [facility] Last Admin: 06/03/24 08:36 Dose: 650 mg Al Hydroxide/Mg Hydroxide (Magnesium Hydrox/Alum Hydrox 30 Ml Oral.Susp) 30 ml PO Q6H PRN PRN Reason: Heartburn/Nausea Clozapine (Clozapine 100 Mg Tablet) 100 mg PO DAILY [facility] Last Admin: 06/03/24 08:36 Dose: 100 mg Clozapine (Clozapine 100 Mg Tablet) 100 mg PO DAILY@1230 [facility] Last Admin: 06/03/24 12:02 Dose: 100 mg Clozapine (Clozapine 100 Mg Tablet) 200 mg PO BEDTIME [facility] Last Admin: 06/02/24 20:38 Dose: 200 mg Famotidine (Famotidine 20 Mg Tablet) 20 mg PO DAILY [facility] Last Admin: 06/03/24 08:36 Dose: 20 mg Hydrocortisone (Hydrocortisone 2.5 % Rectal Cr 30 Gm Tube) [address] DAILY [facility] Last Admin: 06/03/24 08:40 Dose: Not Given Hydroxyzine HCl (Hydroxyzine Hcl 25 Mg Tablet) 25 mg PO Q6H PRN PRN Reason: Anxiety Last Admin: 05/31/24 21:04 Dose: 25 mg Lamotrigine (Lamotrigine 25 Mg Tablet) 50 mg PO BID [facility] Last Admin: 06/03/24 08:36 Dose: 50 mg Levothyroxine Sodium (Levothyroxine Sodium 75 Mcg Tablet) 75 mcg PO DAILY@0600 [facility] Last Admin: 06/03/24 05:31 Dose: Not Given Magnesium Hydroxide (Milk Of Magnesia 30 Ml Oral.Susp) 30 ml PO BID PRN PRN Reason: Constipation Last Admin: 05/30/24 17:29 Dose: 30 ml Mirtazapine (Mirtazapine 7.5 Mg Tablet) 7.5 mg PO BEDTIME [facility] Last Admin: 06/02/24 20:37 Dose: 7.5 mg Nicotine Polacrilex (Nicotine Polacrilex 2 Mg Gum) 2 mg BUCCAL Q2H PRN PRN Reason: Nicotine Cravings Olanzapine (Olanzapine 5 Mg Tablet) 5 mg PO Q4H PRN PRN Reason: Psychosis Last Admin: 05/09/24 10:24 Dose: 5 mg Polyethylene Glycol (Polyethylene Glycol 3350 17 Gm Powd.Pack) 17 gm PO DAILY PRN PRN Reason: Constipation Last Admin: 04/18/24 00:24 Dose: 17 gm Polyethylene Glycol (Polyethylene Glycol 3350 17 Gm Powd.Pack) 17 gm PO DAILY [facility] Last Admin: 06/03/24 08:36 Dose: 17 gm Risperidone (Risperidone 3 Mg Tablet) 6 mg PO BID [facility] Last Admin: 06/03/24 08:35 Dose: 6 mg Senna (Sennosides 8.6 Mg Tablet) 8.6 mg PO DAILY [facility] Last Admin: 06/03/24 08:36 Dose: 8.6 mg Trazodone HCl (Trazodone Hcl 50 Mg Tablet) 50 mg PO BEDTIME MRX1 PRN PRN Reason: Insomnia Last Admin: 06/02/24 20:37 Dose: 50 mg Home Medications ?Medication ?Instructions ?Recorded ?Confirmed ?Last Taken ?Type clozapine 100 mg tablet 100 mg PO DAILY 03/11/24 03/11/24 03/11/24 History clozapine 100 mg tablet 300 mg PO BEDTIME 03/11/24 03/11/24 03/10/24 History famotidine 20 mg tablet 20 mg PO DAILY 03/11/24 03/11/24 03/11/24 History lamotrigine 25 mg tablet 50 mg PO BID 03/11/24 03/11/24 03/11/24 History levothyroxine 75 mcg tablet 75 mcg PO DAILY 03/11/24 03/11/24 03/11/24 History risperidone 2 mg tablet 6 mg PO BID 03/11/24 03/11/24 03/11/24 History sennosides 8.6 mg tablet (senna) 8.6 mg PO DAILY PRN Constipation 03/11/24 03/11/24 Unknown History Exam Height,Weight and Vital Signs: Height 5 ft 6 in Weight 74.559 kg Last Vital Signs Temp 97.9 F 06/03/24 08:30 Pulse 80 06/03/24 08:30 Resp 18 06/03/24 08:30 BP 122/61 06/03/24 08:30 Pulse Ox 95 06/03/24 08:30 O2 Del Method Room Air 06/03/24 08:30 O2 Flow Rate 2 06/01/24 08:15 Pertinent Lab Results Pertinent Lab Results: Laboratory Tests 03/11/24 03/11/24 03/12/24 11:07 13:25 13:15 WBC 7.8 RBC 3.77 L Hgb 11.6 L Hct 34.5 L MCV 91.5 MCH 30.8 MCHC 33.6 RDW 14.8 Plt Count 205 MPV 10.3 Immature Gran % (Auto) 0.4 Neut % (Auto) 80.2 H Lymph % (Auto) 9.8 L [place] % (Auto) 8.6 Eos % (Auto) 0.5 Baso % (Auto) 0.5 Lymph # (Auto) 0.8 L [place] # (Auto) 0.7 Eos # (Auto) 0.0 Baso # (Auto) 0.0 Abs Immat Gran (auto) 0.03 Absolute Neuts (auto) 6.2 Absolute Nucleated RBC 0.000 Nucleated RBC % (auto) 0.0 Sodium 141 Potassium 4.2 Chloride 107 Carbon Dioxide 24 Anion Gap 14 BUN 18 H Creatinine 1.47 H Estim Creat Clear Calc 36.2 Estimated GFR 35 POC Glucose 118 H Random Glucose 119 H Fasting Glucose Estimat Average Glucose Hemoglobin A1c % Calcium 9.8 Magnesium Total Bilirubin 0.3 AST 20 ALT 16 Alkaline Phosphatase 90 Total Protein 6.0 L Albumin 4.0 Triglycerides Cholesterol LDL Cholesterol, Calc HDL Cholesterol Vitamin B12 Folate TSH Urine Color Yellow Urine Appearance Clear Urine pH 6.5 Ur Specific [place] <= 1.005 Urine Protein Negative Urine Glucose (UA) Negative Urine Ketones Negative Urine Blood Negative Urine Nitrite Negative Ur Leukocyte Esterase Small (1+) H Urine RBC 0-2 Urine WBC 0-5 Ur Squamous Epith Cells 0-2 Urine Bacteria None Seen Hyaline Casts 0-2 Urine Opiates Screen Not Detected Ur Buprenorphine Scrn Not Detected Ur Oxycodone Screen Not Detected Urine Methadone Screen Not Detected Urine Fentanyl Screen Not Detected Ur Barbiturates Screen Not Detected Ur Phencyclidine Scrn Not Detected Ur Amphetamines Screen Not Detected U Benzodiazepines Scrn Not Detected Urine Cocaine Screen Not Detected U Marijuana (THC) Screen Not Detected Ethyl Alcohol < 10 03/13/24 03/18/24 03/25/24 08:18 07:57 08:12 WBC RBC Hgb Hct MCV MCH MCHC RDW Plt Count MPV Immature Gran % (Auto) Neut % (Auto) Lymph % (Auto) [place] % (Auto) Eos % (Auto) Baso % (Auto) Lymph # (Auto) [place] # (Auto) Eos # (Auto) Baso # (Auto) Abs Immat Gran (auto) Absolute Neuts (auto) 4.2 3.3 Absolute Nucleated RBC Nucleated RBC % (auto) Sodium 142 Potassium 4.0 Chloride 108 Carbon Dioxide 28 Anion Gap 10 L BUN 23 H Creatinine 1.46 H Estim Creat Clear Calc 36.5 Estimated GFR 35 POC Glucose Random Glucose Fasting Glucose 114 H Estimat Average Glucose 114 Hemoglobin A1c % 5.6 Calcium 9.8 Magnesium 2.3 Total Bilirubin 0.4 AST 16 ALT 10 Alkaline Phosphatase 85 Total Protein 5.8 L Albumin 4.0 Triglycerides 133 Cholesterol 218 H LDL Cholesterol, Calc 144 H HDL Cholesterol 48 Vitamin B12 443 Folate 10.9 TSH 3.25 Urine Color Urine Appearance Urine pH Ur Specific [place] Urine Protein Urine Glucose (UA) Urine Ketones Urine Blood Urine Nitrite Ur Leukocyte Esterase Urine RBC Urine WBC Ur Squamous Epith Cells Urine Bacteria Hyaline Casts Urine Opiates Screen Ur Buprenorphine Scrn Ur Oxycodone Screen Urine Methadone Screen Urine Fentanyl Screen Ur Barbiturates Screen Ur Phencyclidine Scrn Ur Amphetamines Screen U Benzodiazepines Scrn Urine Cocaine Screen U Marijuana (THC) Screen Ethyl Alcohol 04/03/24 04/05/24 04/05/24 07:40 15:20 15:38 WBC 6.6 RBC 3.94 L Hgb 12.0 Hct 35.8 L MCV 90.9 MCH 30.5 MCHC 33.5 RDW 13.7 Plt Count 208 MPV 10.5 Immature Gran % (Auto) Neut % (Auto) Lymph % (Auto) [place] % (Auto) Eos % (Auto) Baso % (Auto) Lymph # (Auto) [place] # (Auto) Eos # (Auto) Baso # (Auto) Abs Immat Gran (auto) Absolute Neuts (auto) 5.0 Absolute Nucleated RBC 0.000 Nucleated RBC % (auto) 0.0 Sodium 144 Potassium 3.5 Chloride 106 Carbon Dioxide 25 Anion Gap 17 BUN 17 H Creatinine 1.50 H Estim Creat Clear Calc 37.2 Estimated GFR 34 POC Glucose 100 Random Glucose 74 Fasting Glucose Estimat Average Glucose Hemoglobin A1c % Calcium 9.8 Magnesium Total Bilirubin 0.4 AST 21 ALT 8 Alkaline Phosphatase 127 H Total Protein 5.8 L Albumin 3.9 Triglycerides Cholesterol LDL Cholesterol, Calc HDL Cholesterol Vitamin B12 Folate TSH Urine Color Urine Appearance Urine pH Ur Specific [place] Urine Protein Urine Glucose (UA) Urine Ketones Urine Blood Urine Nitrite Ur Leukocyte Esterase Urine RBC Urine WBC Ur Squamous Epith Cells Urine Bacteria Hyaline Casts Urine Opiates Screen Ur Buprenorphine Scrn Ur Oxycodone Screen Urine Methadone Screen Urine Fentanyl Screen Ur Barbiturates Screen Ur Phencyclidine Scrn Ur Amphetamines Screen U Benzodiazepines Scrn Urine Cocaine Screen U Marijuana (THC) Screen Ethyl Alcohol 04/12/24 04/15/24 04/22/24 08:30 08:26 07:29 WBC RBC Hgb Hct MCV MCH MCHC RDW Plt Count MPV Immature Gran % (Auto) Neut % (Auto) Lymph % (Auto) [place] % (Auto) Eos % (Auto) Baso % (Auto) Lymph # (Auto) [place] # (Auto) Eos # (Auto) Baso # (Auto) Abs Immat Gran (auto) Absolute Neuts (auto) 3.7 6.0 3.4 Absolute Nucleated RBC Nucleated RBC % (auto) Sodium Potassium Chloride Carbon Dioxide Anion Gap BUN Creatinine Estim Creat Clear Calc Estimated GFR POC Glucose Random Glucose Fasting Glucose Estimat Average Glucose Hemoglobin A1c % Calcium Magnesium Total Bilirubin AST ALT Alkaline Phosphatase Total Protein Albumin Triglycerides Cholesterol LDL Cholesterol, Calc HDL Cholesterol Vitamin B12 Folate TSH Urine Color Urine Appearance Urine pH Ur Specific [place] Urine Protein Urine Glucose (UA) Urine Ketones Urine Blood Urine Nitrite Ur Leukocyte Esterase Urine RBC Urine WBC Ur Squamous Epith Cells Urine Bacteria Hyaline Casts Urine Opiates Screen Ur Buprenorphine Scrn Ur Oxycodone Screen Urine Methadone Screen Urine Fentanyl Screen Ur Barbiturates Screen Ur Phencyclidine Scrn Ur Amphetamines Screen U Benzodiazepines Scrn Urine Cocaine Screen U Marijuana (THC) Screen Ethyl Alcohol 04/29/24 05/06/24 05/13/24 08:53 08:22 08:34 WBC RBC Hgb Hct MCV MCH MCHC RDW Plt Count MPV Immature Gran % (Auto) Neut % (Auto) Lymph % (Auto) [place] % (Auto) Eos % (Auto) Baso % (Auto) Lymph # (Auto) [place] # (Auto) Eos # (Auto) Baso # (Auto) Abs Immat Gran (auto) Absolute Neuts (auto) 6.0 3.7 4.6 Absolute Nucleated RBC Nucleated RBC % (auto) Sodium Potassium Chloride Carbon Dioxide Anion Gap BUN Creatinine Estim Creat Clear Calc Estimated GFR POC Glucose Random Glucose Fasting Glucose Estimat Average Glucose Hemoglobin A1c % Calcium Magnesium Total Bilirubin AST ALT Alkaline Phosphatase Total Protein Albumin Triglycerides Cholesterol LDL Cholesterol, Calc HDL Cholesterol Vitamin B12 Folate TSH Urine Color Urine Appearance Urine pH Ur Specific [place] Urine Protein Urine Glucose (UA) Urine Ketones Urine Blood Urine Nitrite Ur Leukocyte Esterase Urine RBC Urine WBC Ur Squamous Epith Cells Urine Bacteria Hyaline Casts Urine Opiates Screen Ur Buprenorphine Scrn Ur Oxycodone Screen Urine Methadone Screen Urine Fentanyl Screen Ur Barbiturates Screen Ur Phencyclidine Scrn Ur Amphetamines Screen U Benzodiazepines Scrn Urine Cocaine Screen U Marijuana (THC) Screen Ethyl Alcohol 05/20/24 05/27/24 06/03/24 10:23 10:43 07:30 WBC RBC Hgb Hct MCV MCH MCHC RDW Plt Count MPV Immature Gran % (Auto) Neut % (Auto) Lymph % (Auto) [place] % (Auto) Eos % (Auto) Baso % (Auto) Lymph # (Auto) [place] # (Auto) Eos # (Auto) Baso # (Auto) Abs Immat Gran (auto) Absolute Neuts (auto) 5.4 8.1 3.8 Absolute Nucleated RBC Nucleated RBC % (auto) Sodium Potassium Chloride Carbon Dioxide Anion Gap BUN Creatinine Estim Creat Clear Calc Estimated GFR POC Glucose Random Glucose Fasting Glucose Estimat Average Glucose Hemoglobin A1c % Calcium Magnesium Total Bilirubin AST ALT Alkaline Phosphatase Total Protein Albumin Triglycerides Cholesterol LDL Cholesterol, Calc HDL Cholesterol Vitamin B12 Folate TSH Urine Color Urine Appearance Urine pH Ur Specific [place] Urine Protein Urine Glucose (UA) Urine Ketones Urine Blood Urine Nitrite Ur Leukocyte Esterase Urine RBC Urine WBC Ur Squamous Epith Cells Urine Bacteria Hyaline Casts Urine Opiates Screen Ur Buprenorphine Scrn Ur Oxycodone Screen Urine Methadone Screen Urine Fentanyl Screen Ur Barbiturates Screen Ur Phencyclidine Scrn Ur Amphetamines Screen U Benzodiazepines Scrn Urine Cocaine Screen U Marijuana (THC) Screen Ethyl Alcohol Airway Mallampati Class: III (Small mouth) TM Dist: >3cm Neck ROM: Full Loose/Missing/Broken Teeth: Yes (Many missing. Broken tooth top left. ) Heart: RRR Lungs: CTAB Assessment and Plan Assessment Anesthesia Assessment: Anesthesia Plan Discussed and Chart Reviewed Final Anesthetic Review Family History of Problems with Anesthesia: No History of Problems with Anesthesia: No NPO: Yes ASA Class: III Final Preanesthetic Review: No Changes in Pt Med Stat, Meds/Allgs Chart Reviewed, Consent Obtained/Reviewed and Anes Risks/Benef Reviewed Patient Risk: Intermediate Procedure Risk: Intermediate Assessment/Block/Sedation in SS: Assess/Block/Sedation- Anesthetic Plan Anesthetic Plan: GA Disposition: Standard PACU
--- NOTE | 2024-06-03 14:15 | P.PNPSI_ITS ---
Subjective Subjective Date of Service: 06/03/24 Reason For Visit: Psychosis Subjective Notes: Conditional Voluntary Interim History: The nursing staff reported the patient had been fully compliant with treatment no vomiting or diarrhea. She feels much better slept well. On interview today the patient reported that she is feeling better and she is going to have ECT today. Mental Status Exam Mental Status Exam Patient Appearance: Appropriate Patient Orientation: Person and Situation Level of Consciousness: Awake and Appropriate Patient Behavior: Guarded and Passive Mood Description: Withdrawn Affect Description: Constricted Patient Cognition Impaired: Yes Ability to Follow Directions: Good Speech Pattern: Clear Hallucinations: Auditory Delusions: Paranoid Ideation and Ideas of Reference Thought Process: Distracted and Slowed Thinking Thought Content: positive for [place] and positive for Poverty of Content Judgement: Fair Diagnostics Vital Signs (24Hr): Vital Signs - 24 hr 06/02/24 20:00 06/03/24 08:30 Temperature 97.5 F 97.9 F Pulse Rate 91 80 Respiratory Rate 18 18 Blood Pressure 106/63 122/61 Pulse Oximetry 94 95 Oxygen Delivery Method Room Air Room Air BMI result Body Mass Index 26.5 Labs 04/05/24 15:38 04/05/24 15:38 Labs: Laboratory Results - last 48 hr 06/03/24 07:30 Absolute Neuts (auto) 3.8 Imaging Radiology Impressions: ITS Impressions Head CT 03/18/24 09:42 IMPRESSION: 1. No evidence of acute intracranial hemorrhage or edematous territorial infarction. 2. Mild to moderate underlying microangiopathy. 3. Arachnoid cyst in the right middle cranial fossa. Electronically signed by: Mino Arriaga DO 03/18/2024 06:26 PM EST RP Head CT 03/19/24 01:36 IMPRESSION: 1. Left frontal scalp soft tissue swelling. 2. No acute intracranial process seen. 3. Stable right middle cranial fossa arachnoid cyst. Electronically signed by: Andreas Olsen MD 03/19/2024 02:08 AM EST RP Head CT 04/05/24 16:20 IMPRESSION: 1. No acute intracranial hemorrhage or mass effect. 2. Stable right middle cranial fossa arachnoid cyst. Electronically signed by: Getachew Arana MD 04/05/2024 05:15 PM EST RP KUB X-Ray 04/16/24 13:57 IMPRESSION: Nonobstructive bowel gas pattern. Large colonic and rectal fecal material. Electronically signed by: Chencho Ugalde MD 04/16/2024 02:13 PM [facility] [place] Medications Medications Current Medications Acetaminophen (Acetaminophen 325 Mg Tablet) 650 mg PO BID PRN PRN Reason: Headache/Pain Mild Scale (1-3) Acetaminophen (Acetaminophen 325 Mg Tablet) 650 mg PO BID [facility] Last Admin: 06/03/24 08:36 Dose: 650 mg Al Hydroxide/Mg Hydroxide (Magnesium Hydrox/Alum Hydrox 30 Ml Oral.Susp) 30 ml PO Q6H PRN PRN Reason: Heartburn/Nausea Clozapine (Clozapine 100 Mg Tablet) 100 mg PO DAILY [facility] Last Admin: 06/03/24 08:36 Dose: 100 mg Clozapine (Clozapine 100 Mg Tablet) 100 mg PO DAILY@1230 [facility] Last Admin: 06/03/24 12:02 Dose: 100 mg Clozapine (Clozapine 100 Mg Tablet) 200 mg PO BEDTIME [facility] Last Admin: 06/02/24 20:38 Dose: 200 mg Famotidine (Famotidine 20 Mg Tablet) 20 mg PO DAILY [facility] Last Admin: 06/03/24 08:36 Dose: 20 mg Hydrocortisone (Hydrocortisone 2.5 % Rectal Cr 30 Gm Tube) 1 appl [place] DAILY [facility] Last Admin: 06/03/24 08:40 Dose: Not Given Hydroxyzine HCl (Hydroxyzine Hcl 25 Mg Tablet) 25 mg PO Q6H PRN PRN Reason: Anxiety Last Admin: 05/31/24 21:04 Dose: 25 mg Lactated Ringer's (Lr) 1,000 mls @ 50 mls/hr IVCONT .Q20H [facility] Lamotrigine (Lamotrigine 25 Mg Tablet) 50 mg PO BID [facility] Last Admin: 06/03/24 08:36 Dose: 50 mg Levothyroxine Sodium (Levothyroxine Sodium 75 Mcg Tablet) 75 mcg PO DAILY@0600 [facility] Last Admin: 06/03/24 05:31 Dose: Not Given Magnesium Hydroxide (Milk Of Magnesia 30 Ml Oral.Susp) 30 ml PO BID PRN PRN Reason: Constipation Last Admin: 05/30/24 17:29 Dose: 30 ml Mirtazapine (Mirtazapine 7.5 Mg Tablet) 7.5 mg PO BEDTIME [facility] Last Admin: 06/02/24 20:37 Dose: 7.5 mg Nicotine Polacrilex (Nicotine Polacrilex 2 Mg Gum) 2 mg BUCCAL Q2H PRN PRN Reason: Nicotine Cravings Olanzapine (Olanzapine 5 Mg Tablet) 5 mg PO Q4H PRN PRN Reason: Psychosis Last Admin: 05/09/24 10:24 Dose: 5 mg Polyethylene Glycol (Polyethylene Glycol 3350 17 Gm Powd.Pack) 17 gm PO DAILY PRN PRN Reason: Constipation Last Admin: 04/18/24 00:24 Dose: 17 gm Polyethylene Glycol (Polyethylene Glycol 3350 17 Gm Powd.Pack) 17 gm PO DAILY [facility] Last Admin: 06/03/24 08:36 Dose: 17 gm Risperidone (Risperidone 3 Mg Tablet) 6 mg PO BID [facility] Last Admin: 06/03/24 08:35 Dose: 6 mg Senna (Sennosides 8.6 Mg Tablet) 8.6 mg PO DAILY [facility] Last Admin: 06/03/24 08:36 Dose: 8.6 mg Trazodone HCl (Trazodone Hcl 50 Mg Tablet) 50 mg PO BEDTIME MRX1 PRN PRN Reason: Insomnia Last Admin: 06/02/24 20:37 Dose: 50 mg Allergies Allergies Allergy/AdvReac Type Severity Reaction Status Date / Time trifluoperazine Allergy Unknown Verified 03/11/24 14:16 [From Stelazine] Assessment & Plan Assessment & Plan (1) Schizophrenia: Status: Acute Code(s): F20.9 - Schizophrenia, unspecified (2) Diverticulosis: Status: Chronic Code(s): K57.90 - Diverticulosis of intestine, part unspecified, without perforation or abscess without bleeding Plan Patient is a 73-year-old female with a PMH significant for HTN, post op VTE 2 years ago, hypothyroidism, and mood disorder who was admitted to [facility] after eloping from [facility] and walking into traffic on purpose. Patient apparently believes a friend is writing a horrible story about and does not want to live after everyone reads the book as she believes everyone will hate her. Hospitalist consult for ECT risk stratification. ECT risk stratification Previously underwent ECT without complications in 1998 Currently no significant medical complaints or PMH EKG from 7 days prior at time of admission negative for ischemia RCRI 0 points, class I risk Will repeat EKG before completing risk stratification Plan 1. Continue Risperdal 6 mg p.o. b.i.d.. 2. Clozaril has been changed to 100 mg p.o. b.i.d. and 200 mg p.o. q.h.s. to avoid over-sedation. 3. So far her psychosis had become stable. 4. ECT was considered and on May 13 the patient request this procedure since she reported she is feeling worse. We will try to schedule her ECT as soon as possible. 5. Referral for [facility] team. They assessed her on May 05 and stated that she is not at baseline but it seems that this is now her new baseline. So far she had not been assaultive for grossly disorganized after the medication changes and increase of Clozaril. 6. Family meeting next week to address the possibility of ECT and disposition. On May 13 her son who is the affirmed healthcare proxy signed herself in to ECT. 7. Zyprexa 5 mg p.o. q.6 hours PRNs hallucinations. 8. The patient is not at baseline at this moment we will continue with ECT. 9. Start Remeron 7.5 p.o. q.h.s. to target depression Reason for continued inpatient stay Substantial Risk for: inability to function, rapid decompensation and med/psych decompensation Time Spent With Patient Time: Total time managing care of this patient today __20__ minutes.
--- NOTE | 2024-06-03 14:22 | MHC.SHP ---
Pre-Procedural Eval Section A - 24 Hr Update-Section A only Date of Service: 06/03/24 The patient is an INPATIENT: Yes Changes since office visit: No Cold of Flu in the past 2 weeks, No New Medical Problems, No Changes in Medication and No Patient answered all questions The patient has been examined within 24 hours of the surgical procedure. The History & Physical has been completed within 30 days and I have reviewed it.: Yes Section B - Complete if H&P > 30 days Chief Complaint: Psychosis Allergies: Allergies Allergy/AdvReac Type Severity Reaction Status Date / Time trifluoperazine Allergy Unknown Verified 03/11/24 14:16 [From Adrian] Plan I have reviewed the history and physical and performed a pertinent physical examination on my patient. No changes have occurred unless specified. Time Spent With Patient Time: Total time managing care of this patient today ____ minutes.
--- NOTE | 2024-06-03 14:37 | HO.ECTPROC ---
ECT Procedure Note Diagnosis/Treatment Date of Service: 06/03/24 Diagnosis: Schizoaffective Disorder Previous ECT Date: 06/01/24 Current Treatment Number: 9 Treatment: Series Interval Clinical Notes: The patient's mood is much better, brighter affect. No side effects with previous ECT. ECT done as usual she had a motro serizufe of 14s but the EEG showed abnormal seizure that it was artifacts. Woke up well Time: Total time managing care of this patient today ____ minutes. ECT Settings Device: THYMATRON DGx Electrode Placement: Bifrontal Program/Pulse Width: 0.50 Energy Percent: 100 Seizure Duration By EEG (in seconds): 35 (several artifacts that the computer showed as seizure) By Motor Observation (in seconds): 14 Medications Administration General Anesthetic: Etomidate (12) Muscle Relaxant: Succinylcholine (80) Airway Management Airway Management: Bag Mask Ventilation Treatment Recommendations No Changes Recommended: No change Pt Tolerated Procedure w/o Issue: Yes
[2024-06-03] MEDS: cloZAPine 100 MG TABLET 200 MG PO (20:46)
[2024-06-03] MEDS: Mirtazapine 7.5 MG TABLET PO (20:46)
[2024-06-04] MEDS: Levothyroxine Sodium 75 MCG TABLET PO (06:47)
[2024-06-04 07:00] VITALS: BMI 27.6
[2024-06-04 07:45] VITALS: BP 104/74; PULSE 80; RESP 18; TEMP 36.2; O2SAT 96
[2024-06-04] MEDS: lamoTRIgine 25 MG TABLET 50 MG PO ×2 (07:50→20:39)
[2024-06-04] MEDS: risperiDONE 3 MG TABLET 6 MG PO ×2 (07:50→20:39)
[2024-06-04] MEDS: Famotidine 20 MG TABLET PO (07:50)
[2024-06-04] MEDS: Sennosides 8.6 MG TABLET PO (07:50)
[2024-06-04] MEDS: cloZAPine 100 MG TABLET PO ×2 (07:50→12:04)
[2024-06-04] MEDS: Acetaminophen 325 MG TABLET 650 MG PO ×2 (07:51→20:39)
[2024-06-04] MEDS: polyethylene glycoL 3350 17 GM POWD.PACK PO (07:51)
--- NOTE | 2024-06-04 10:51 | P.PNPSI_ITS ---
Subjective Subjective Date of Service: 06/04/24 Reason For Visit: Psychosis Subjective Notes: Conditional Voluntary Healthcare Proxy: Yes Interim History: The nursing staff reported the patient had been fully compliant with treatment, she had ECT yesterday and she had been pleasant more cooperative. On interview the patient is slightly more focal her mood has improved. Mental Status Exam Mental Status Exam Patient Appearance: Appropriate Patient Orientation: Person and Situation Level of Consciousness: Awake and Appropriate Patient Behavior: Guarded and Passive Mood Description: Withdrawn Affect Description: Constricted Patient Cognition Impaired: Yes Ability to Follow Directions: Good Speech Pattern: Clear Hallucinations: None Delusions: Paranoid Ideation and Ideas of Reference Thought Process: Distracted and Slowed Thinking Thought Content: positive for [place] and positive for Poverty of Content Judgement: Fair Diagnostics Vital Signs (24Hr): Vital Signs - 24 hr 06/03/24 14:10 06/03/24 14:46 06/03/24 14:51 Temperature 97.8 F 97.8 F Pulse Rate 71 83 79 Respiratory Rate 20 26 H 22 H Blood Pressure 115/71 172/92 H 148/87 H Pulse Oximetry 94 94 94 Oxygen Delivery Method Room Air Nasal Cannula Nasal Cannula Oxygen Flow Rate 4 4 06/03/24 14:56 06/03/24 15:01 06/03/24 15:15 Temperature Pulse Rate 78 79 76 Respiratory Rate 20 20 20 Blood Pressure 138/81 132/81 128/80 Pulse Oximetry 94 94 94 Oxygen Delivery Method Nasal Cannula Nasal Cannula Nasal Cannula Oxygen Flow Rate 4 4 4 06/03/24 15:30 06/03/24 15:45 06/03/24 20:00 Temperature 97.6 F 98.8 F Pulse Rate 79 79 82 Respiratory Rate 20 16 18 Blood Pressure 119/75 120/72 101/58 L Pulse Oximetry 94 94 97 Oxygen Delivery Method Room Air Room Air Room Air Oxygen Flow Rate 06/04/24 07:45 Temperature 97.1 F Pulse Rate 80 Respiratory Rate 18 Blood Pressure 104/74 Pulse Oximetry 96 Oxygen Delivery Method Room Air Oxygen Flow Rate BMI result Body Mass Index 26.5 Labs 04/05/24 15:38 04/05/24 15:38 Labs: Laboratory Results - last 48 hr 06/03/24 07:30 Absolute Neuts (auto) 3.8 Imaging Radiology Impressions: ITS Impressions Head CT 03/18/24 09:42 IMPRESSION: 1. No evidence of acute intracranial hemorrhage or edematous territorial infarction. 2. Mild to moderate underlying microangiopathy. 3. Arachnoid cyst in the right middle cranial fossa. Electronically signed by: Mino Arriaga DO 03/18/2024 06:26 PM EST RP Head CT 03/19/24 01:36 IMPRESSION: 1. Left frontal scalp soft tissue swelling. 2. No acute intracranial process seen. 3. Stable right middle cranial fossa arachnoid cyst. Electronically signed by: Andreas Olsen MD 03/19/2024 02:08 AM EST RP Head CT 04/05/24 16:20 IMPRESSION: 1. No acute intracranial hemorrhage or mass effect. 2. Stable right middle cranial fossa arachnoid cyst. Electronically signed by: Getachew Arana MD 04/05/2024 05:15 PM EST RP KUB X-Ray 04/16/24 13:57 IMPRESSION: Nonobstructive bowel gas pattern. Large colonic and rectal fecal material. Electronically signed by: Chencho Ugalde MD 04/16/2024 02:13 PM EST RP Medications Medications Current Medications Acetaminophen (Acetaminophen 325 Mg Tablet) 650 mg PO BID PRN PRN Reason: Headache/Pain Mild Scale (1-3) Acetaminophen (Acetaminophen 325 Mg Tablet) 650 mg PO BID [facility] Last Admin: 06/04/24 07:51 Dose: 650 mg Al Hydroxide/Mg Hydroxide (Magnesium Hydrox/Alum Hydrox 30 Ml Oral.Susp) 30 ml PO Q6H PRN PRN Reason: Heartburn/Nausea Clozapine (Clozapine 100 Mg Tablet) 100 mg PO DAILY [facility] Last Admin: 06/04/24 07:50 Dose: 100 mg Clozapine (Clozapine 100 Mg Tablet) 100 mg PO DAILY@1230 [facility] Last Admin: 06/03/24 12:02 Dose: 100 mg Clozapine (Clozapine 100 Mg Tablet) 200 mg PO BEDTIME [facility] Last Admin: 06/03/24 20:46 Dose: 200 mg Famotidine (Famotidine 20 Mg Tablet) 20 mg PO DAILY [facility] Last Admin: 06/04/24 07:50 Dose: 20 mg Hydrocortisone (Hydrocortisone 2.5 % Rectal Cr 30 Gm Tube) 1 appl WA DAILY [facility] Last Admin: 06/04/24 07:56 Dose: Not Given Hydroxyzine HCl (Hydroxyzine Hcl 25 Mg Tablet) 25 mg PO Q6H PRN PRN Reason: Anxiety Last Admin: 05/31/24 21:04 Dose: 25 mg Lamotrigine (Lamotrigine 25 Mg Tablet) 50 mg PO BID [facility] Last Admin: 06/04/24 07:50 Dose: 50 mg Levothyroxine Sodium (Levothyroxine Sodium 75 Mcg Tablet) 75 mcg PO DAILY@0600 [facility] Last Admin: 06/04/24 06:47 Dose: 75 mcg Magnesium Hydroxide (Milk Of Magnesia 30 Ml Oral.Susp) 30 ml PO BID PRN PRN Reason: Constipation Last Admin: 05/30/24 17:29 Dose: 30 ml Mirtazapine (Mirtazapine 7.5 Mg Tablet) 7.5 mg PO BEDTIME [facility] Last Admin: 06/03/24 20:46 Dose: 7.5 mg Nicotine Polacrilex (Nicotine Polacrilex 2 Mg Gum) 2 mg BUCCAL Q2H PRN PRN Reason: Nicotine Cravings Olanzapine (Olanzapine 5 Mg Tablet) 5 mg PO Q4H PRN PRN Reason: Psychosis Last Admin: 05/09/24 10:24 Dose: 5 mg Polyethylene Glycol (Polyethylene Glycol 3350 17 Gm Powd.Pack) 17 gm PO DAILY PRN PRN Reason: Constipation Last Admin: 04/18/24 00:24 Dose: 17 gm Polyethylene Glycol (Polyethylene Glycol 3350 17 Gm Powd.Pack) 17 gm PO DAILY [facility] Last Admin: 06/04/24 07:51 Dose: 17 gm Risperidone (Risperidone 3 Mg Tablet) 6 mg PO BID [facility] Last Admin: 06/04/24 07:50 Dose: 6 mg Senna (Sennosides 8.6 Mg Tablet) 8.6 mg PO DAILY [facility] Last Admin: 06/04/24 07:50 Dose: 8.6 mg Trazodone HCl (Trazodone Hcl 50 Mg Tablet) 50 mg PO BEDTIME MRX1 PRN PRN Reason: Insomnia Last Admin: 06/02/24 20:37 Dose: 50 mg Allergies Allergies Allergy/AdvReac Type Severity Reaction Status Date / Time trifluoperazine Allergy Unknown Verified 03/11/24 14:16 [From Stelazine] Assessment & Plan Assessment & Plan (1) Schizophrenia: Status: Acute Code(s): F20.9 - Schizophrenia, unspecified (2) Diverticulosis: Status: Chronic Code(s): K57.90 - Diverticulosis of intestine, part unspecified, without perforation or abscess without bleeding Plan Patient is a 73-year-old female with a PMH significant for HTN, post op VTE 2 years ago, hypothyroidism, and mood disorder who was admitted to [facility] after eloping from [facility] and walking into traffic on purpose. Patient apparently believes a friend is writing a horrible story about and does not want to live after everyone reads the book as she believes everyone will hate her. Hospitalist consult for ECT risk stratification. ECT risk stratification Previously underwent ECT without complications in 1998 Currently no significant medical complaints or PMH EKG from 7 days prior at time of admission negative for ischemia RCRI 0 points, class I risk Will repeat EKG before completing risk stratification Plan 1. Continue Risperdal 6 mg p.o. b.i.d.. 2. Clozaril has been changed to 100 mg p.o. b.i.d. and 200 mg p.o. q.h.s. to avoid over-sedation. 3. So far her psychosis had become stable. 4. ECT was considered and on May 13 the patient request this procedure since she reported she is feeling worse. We will try to schedule her ECT as soon as possible. 5. Referral for [facility] team. They assessed her on May 05 and stated that she is not at baseline but it seems that this is now her new baseline. So far she had not been assaultive for grossly disorganized after the medication changes and increase of Clozaril. 6. Family meeting next week to address the possibility of ECT and disposition. On May 13 her son who is the affirmed healthcare proxy signed herself in to ECT. 7. Zyprexa 5 mg p.o. q.6 hours PRNs hallucinations. 8. The patient is not at baseline at this moment we will continue with ECT. 9. Start Remeron 7.5 p.o. q.h.s. to target depression Reason for continued inpatient stay Substantial Risk for: inability to function, rapid decompensation and med/psych decompensation Time Spent With Patient Time: Total time managing care of this patient today __20__ minutes.
[2024-06-04 20:00] VITALS: BP 124/63; PULSE 75; RESP 16; TEMP 36.6; O2SAT 100
[2024-06-04] MEDS: cloZAPine 100 MG TABLET 200 MG PO (20:39)
[2024-06-04] MEDS: Mirtazapine 7.5 MG TABLET PO (20:39)
[2024-06-05] VITALS (9 sets, daily range): BP systolic 112–164; BP diastolic 68–87; PULSE 72–87; RESP 16–18; TEMP 36.2–36.8; O2SAT 93–97
--- NOTE | 2024-06-05 07:25 | MHC.SHP ---
Pre-Procedural Eval Section A - 24 Hr Update-Section A only Date of Service: 06/05/24 The patient is an INPATIENT: Yes Changes since office visit: Yes Changes in Medication and Yes Patient answered all questions; No Cold of Flu in the past 2 weeks and No New Medical Problems The patient has been examined within 24 hours of the surgical procedure. The History & Physical has been completed within 30 days and I have reviewed it.: Yes Section B - Complete if H&P > 30 days Chief Complaint: Psychosis Allergies: Allergies Allergy/AdvReac Type Severity Reaction Status Date / Time trifluoperazine Allergy Unknown Verified 03/11/24 14:16 [From Adrian] Plan I have reviewed the history and physical and performed a pertinent physical examination on my patient. No changes have occurred unless specified. Time Spent With Patient Time: Total time managing care of this patient today ____ minutes.
--- NOTE | 2024-06-05 07:26 | HO.ECTPROC ---
ECT Procedure Note Diagnosis/Treatment Date of Service: 06/05/24 Diagnosis: Schizoaffective Disorder Previous ECT Date: 06/01/24 Current Treatment Number: 10 Treatment: Series Interval Clinical Notes: The patient's mood is much better, brighter affect. Mood improved not overly psychotic l Time: Total time managing care of this patient today ____ minutes. ECT Settings Device: THYMATRON DGx Electrode Placement: Bifrontal Program/Pulse Width: 0.50 Energy Percent: 100 Seizure Duration By EEG (in seconds): 18 (several artifacts that the computer showed as seizure) Medications Administration General Anesthetic: Etomidate (12) Muscle Relaxant: Succinylcholine (80) Airway Management Airway Management: Bag Mask Ventilation Treatment Recommendations No Changes Recommended: No change Notes: if needed change to rtlf sec to dec sz or rul pt has been improving Pt Tolerated Procedure w/o Issue: Yes
--- NOTE | 2024-06-05 07:28 | HO.ANESPROP2 ---
[facility] Active Problems Active Problems: All Active Problems Arachnoid cyst (Acute) Diverticulosis (Chronic) Pre-op evaluation (Acute) Schizophrenia (Acute) Suicidal ideation (Acute) Past Medical History Medical History Diverticulosis Schizophrenia CKD (chronic kidney disease) Hyperlipidemia Type 2 diabetes mellitus Hypothyroidism HTN (hypertension) GERD (gastroesophageal reflux disease) Mood disorder Functional capacity: independent ambulation Family History Family history of problems with anesthesia: No Surgical History History of Problems with Anesthesia: No Social History Social History Household Members: None Household Members Other:: Lives at [facility] Housing: Assisted Living Facility Do you presently have visiting nurse or other home services: Yes Alcohol intake: current Patient Tobacco Use Status: Former Tobacco user Tobacco use type: Cigarette Cigarette Packs Per Day: 3 Cigarettes Per Day: 60.0 Years Smoked: 16 Smoked in Last 30 Days: No Patient Interested in Nicotine Replacement: No Second Hand Smoke Exposure: No Use of substances other than those prescribed or required for medical reasons: No Currently Displaying Signs/Symptoms of Drug Intoxication Withdrawal: No Have you been hit, kicked, punched, or otherwise hurt by someone within the past year? If so, by whom?: No Do you feel safe in your current relationship?: No Current Relationship Is there a partner from a previous relationship who is making you feel unsafe now?: No Are you made to feel afraid or neglected: Yes (Pt reports she is afraid of the person writing the book about her.) Advance Directives: No Advance Directives Information Provided: Yes Do you have thoughts of harming others: None Do you have a plan to hurt others: No Plan Recently lost weight without trying: Unsure Nutrition Risks: No Nutritional Risk Patient : No : No Poor oral hygiene: No service: No Sexual orientation: Straight/Heterosexual Meds Allergies Allergy/AdvReac Type Severity Reaction Status Date / Time trifluoperazine Allergy Unknown Verified 03/11/24 14:16 [From Stelazine] Active Medications: Current Medications Acetaminophen (Acetaminophen 325 Mg Tablet) 650 mg PO BID PRN PRN Reason: Headache/Pain Mild Scale (1-3) Acetaminophen (Acetaminophen 325 Mg Tablet) 650 mg PO BID YURY Last Admin: 06/04/24 20:39 Dose: 650 mg Al Hydroxide/Mg Hydroxide (Magnesium Hydrox/Alum Hydrox 30 Ml Oral.Susp) 30 ml PO Q6H PRN PRN Reason: Heartburn/Nausea Clozapine (Clozapine 100 Mg Tablet) 100 mg PO DAILY [facility] [place] Last Admin: 06/04/24 07:50 Dose: 100 mg Clozapine (Clozapine 100 Mg Tablet) 100 mg PO DAILY@1230 [facility] Last Admin: 06/04/24 12:04 Dose: 100 mg Clozapine (Clozapine 100 Mg Tablet) 200 mg PO BEDTIME [facility] [place] Last Admin: 06/04/24 20:39 Dose: 200 mg Famotidine (Famotidine 20 Mg Tablet) 20 mg PO DAILY [facility] [place] Last Admin: 06/04/24 07:50 Dose: 20 mg Hydrocortisone (Hydrocortisone 2.5 % Rectal Cr 30 Gm Tube) 1 appl [place] DAILY [facility] [place] Last Admin: 06/04/24 07:56 Dose: Not Given Hydroxyzine HCl (Hydroxyzine Hcl 25 Mg Tablet) 25 mg PO Q6H PRN PRN Reason: Anxiety Last Admin: 05/31/24 21:04 Dose: 25 mg Lactated Ringer's (Lr) 1,000 mls @ 50 mls/hr IVCONT .Q20H [facility] Lamotrigine (Lamotrigine 25 Mg Tablet) 50 mg PO BID [facility] [place] Last Admin: 06/04/24 20:39 Dose: 50 mg Levothyroxine Sodium (Levothyroxine Sodium 75 Mcg Tablet) 75 mcg PO DAILY@0600 [facility] [place] Last Admin: 06/05/24 05:22 Dose: Not Given Magnesium Hydroxide (Milk Of Magnesia 30 Ml Oral.Susp) 30 ml PO BID PRN PRN Reason: Constipation Last Admin: 05/30/24 17:29 Dose: 30 ml Mirtazapine (Mirtazapine 7.5 Mg Tablet) 7.5 mg PO BEDTIME [facility] [place] Last Admin: 06/04/24 20:39 Dose: 7.5 mg Nicotine Polacrilex (Nicotine Polacrilex 2 Mg Gum) 2 mg BUCCAL Q2H PRN PRN Reason: Nicotine Cravings Olanzapine (Olanzapine 5 Mg Tablet) 5 mg PO Q4H PRN PRN Reason: Psychosis Last Admin: 05/09/24 10:24 Dose: 5 mg Polyethylene Glycol (Polyethylene Glycol 3350 17 Gm Powd.Pack) 17 gm PO DAILY PRN PRN Reason: Constipation Last Admin: 04/18/24 00:24 Dose: 17 gm Polyethylene Glycol (Polyethylene Glycol 3350 17 Gm Powd.Pack) 17 gm PO DAILY [facility] [place] Last Admin: 06/04/24 07:51 Dose: 17 gm Risperidone (Risperidone 3 Mg Tablet) 6 mg PO BID [facility] [place] Last Admin: 06/04/24 20:39 Dose: 6 mg Senna (Sennosides 8.6 Mg Tablet) 8.6 mg PO DAILY [facility] [place] Last Admin: 06/04/24 07:50 Dose: 8.6 mg Trazodone HCl (Trazodone Hcl 50 Mg Tablet) 50 mg PO BEDTIME MRX1 PRN PRN Reason: Insomnia Last Admin: 06/02/24 20:37 Dose: 50 mg Home Medications ?Medication ?Instructions ?Recorded ?Confirmed ?Last Taken ?Type clozapine 100 mg tablet 100 mg PO DAILY 03/11/24 03/11/24 03/11/24 History clozapine 100 mg tablet 300 mg PO BEDTIME 03/11/24 03/11/24 03/10/24 History famotidine 20 mg tablet 20 mg PO DAILY 03/11/24 03/11/24 03/11/24 History lamotrigine 25 mg tablet 50 mg PO BID 03/11/24 03/11/24 03/11/24 History levothyroxine 75 mcg tablet 75 mcg PO DAILY 03/11/24 03/11/24 03/11/24 History risperidone 2 mg tablet 6 mg PO BID 03/11/24 03/11/24 03/11/24 History sennosides 8.6 mg tablet (senna) 8.6 mg PO DAILY PRN Constipation 03/11/24 03/11/24 Unknown History Exam Height,Weight and Vital Signs: Height 5 ft 6 in Weight 77.564 kg Last Vital Signs Temp 97.1 F 06/05/24 06:46 Pulse 85 06/05/24 06:46 Resp 16 06/05/24 06:46 BP 113/69 06/05/24 06:46 Pulse Ox 96 06/05/24 06:46 O2 Del Method Room Air 06/05/24 06:46 O2 Flow Rate 4 06/03/24 15:15 Pertinent Lab Results Pertinent Lab Results: Laboratory Tests 03/11/24 03/11/24 03/12/24 11:07 13:25 13:15 WBC 7.8 RBC 3.77 L Hgb 11.6 L Hct 34.5 L MCV 91.5 MCH 30.8 MCHC 33.6 RDW 14.8 Plt Count 205 MPV 10.3 Immature Gran % (Auto) 0.4 Neut % (Auto) 80.2 H Lymph % (Auto) 9.8 L [place] % (Auto) 8.6 Eos % (Auto) 0.5 Baso % (Auto) 0.5 Lymph # (Auto) 0.8 L [place] # (Auto) 0.7 Eos # (Auto) 0.0 Baso # (Auto) 0.0 Abs Immat Gran (auto) 0.03 Absolute Neuts (auto) 6.2 Absolute Nucleated RBC 0.000 Nucleated RBC % (auto) 0.0 Sodium 141 Potassium 4.2 Chloride 107 Carbon Dioxide 24 Anion Gap 14 BUN 18 H Creatinine 1.47 H Estim Creat Clear Calc 36.2 Estimated GFR 35 POC Glucose 118 H Random Glucose 119 H Fasting Glucose Estimat Average Glucose Hemoglobin A1c % Calcium 9.8 Magnesium Total Bilirubin 0.3 AST 20 ALT 16 Alkaline Phosphatase 90 Total Protein 6.0 L Albumin 4.0 Triglycerides Cholesterol LDL Cholesterol, Calc HDL Cholesterol Vitamin B12 Folate TSH Urine Color Yellow Urine Appearance Clear Urine pH 6.5 Ur Specific [place] <= 1.005 Urine Protein Negative Urine Glucose (UA) Negative Urine Ketones Negative Urine Blood Negative Urine Nitrite Negative Ur Leukocyte Esterase Small (1+) H Urine RBC 0-2 Urine WBC 0-5 Ur Squamous Epith Cells 0-2 Urine Bacteria None Seen Hyaline Casts 0-2 Urine Opiates Screen Not Detected Ur Buprenorphine Scrn Not Detected Ur Oxycodone Screen Not Detected Urine Methadone Screen Not Detected Urine Fentanyl Screen Not Detected Ur Barbiturates Screen Not Detected Ur Phencyclidine Scrn Not Detected Ur Amphetamines Screen Not Detected U Benzodiazepines Scrn Not Detected Urine Cocaine Screen Not Detected U Marijuana (THC) Screen Not Detected Ethyl Alcohol < 10 03/13/24 03/18/24 03/25/24 08:18 07:57 08:12 WBC RBC Hgb Hct MCV MCH MCHC RDW Plt Count MPV Immature Gran % (Auto) Neut % (Auto) Lymph % (Auto) [place] % (Auto) Eos % (Auto) Baso % (Auto) Lymph # (Auto) [place] # (Auto) Eos # (Auto) Baso # (Auto) Abs Immat Gran (auto) Absolute Neuts (auto) 4.2 3.3 Absolute Nucleated RBC Nucleated RBC % (auto) Sodium 142 Potassium 4.0 Chloride 108 Carbon Dioxide 28 Anion Gap 10 L BUN 23 H Creatinine 1.46 H Estim Creat Clear Calc 36.5 Estimated GFR 35 POC Glucose Random Glucose Fasting Glucose 114 H Estimat Average Glucose 114 Hemoglobin A1c % 5.6 Calcium 9.8 Magnesium 2.3 Total Bilirubin 0.4 AST 16 ALT 10 Alkaline Phosphatase 85 Total Protein 5.8 L Albumin 4.0 Triglycerides 133 Cholesterol 218 H LDL Cholesterol, Calc 144 H HDL Cholesterol 48 Vitamin B12 443 Folate 10.9 TSH 3.25 Urine Color Urine Appearance Urine pH Ur Specific [place] Urine Protein Urine Glucose (UA) Urine Ketones Urine Blood Urine Nitrite Ur Leukocyte Esterase Urine RBC Urine WBC Ur Squamous Epith Cells Urine Bacteria Hyaline Casts Urine Opiates Screen Ur Buprenorphine Scrn Ur Oxycodone Screen Urine Methadone Screen Urine Fentanyl Screen Ur Barbiturates Screen Ur Phencyclidine Scrn Ur Amphetamines Screen U Benzodiazepines Scrn Urine Cocaine Screen U Marijuana (THC) Screen Ethyl Alcohol 04/03/24 04/05/24 04/05/24 07:40 15:20 15:38 WBC 6.6 RBC 3.94 L Hgb 12.0 Hct 35.8 L MCV 90.9 MCH 30.5 MCHC 33.5 RDW 13.7 Plt Count 208 MPV 10.5 Immature Gran % (Auto) Neut % (Auto) Lymph % (Auto) [place] % (Auto) Eos % (Auto) Baso % (Auto) Lymph # (Auto) [place] # (Auto) Eos # (Auto) Baso # (Auto) Abs Immat Gran (auto) Absolute Neuts (auto) 5.0 Absolute Nucleated RBC 0.000 Nucleated RBC % (auto) 0.0 Sodium 144 Potassium 3.5 Chloride 106 Carbon Dioxide 25 Anion Gap 17 BUN 17 H Creatinine 1.50 H Estim Creat Clear Calc 37.2 Estimated GFR 34 POC Glucose 100 Random Glucose 74 Fasting Glucose Estimat Average Glucose Hemoglobin A1c % Calcium 9.8 Magnesium Total Bilirubin 0.4 AST 21 ALT 8 Alkaline Phosphatase 127 H Total Protein 5.8 L Albumin 3.9 Triglycerides Cholesterol LDL Cholesterol, Calc HDL Cholesterol Vitamin B12 Folate TSH Urine Color Urine Appearance Urine pH Ur Specific [place] Urine Protein Urine Glucose (UA) Urine Ketones Urine Blood Urine Nitrite Ur Leukocyte Esterase Urine RBC Urine WBC Ur Squamous Epith Cells Urine Bacteria Hyaline Casts Urine Opiates Screen Ur Buprenorphine Scrn Ur Oxycodone Screen Urine Methadone Screen Urine Fentanyl Screen Ur Barbiturates Screen Ur Phencyclidine Scrn Ur Amphetamines Screen U Benzodiazepines Scrn Urine Cocaine Screen U Marijuana (THC) Screen Ethyl Alcohol 04/12/24 04/15/24 04/22/24 08:30 08:26 07:29 WBC RBC Hgb Hct MCV MCH MCHC RDW Plt Count MPV Immature Gran % (Auto) Neut % (Auto) Lymph % (Auto) [place] % (Auto) Eos % (Auto) Baso % (Auto) Lymph # (Auto) [place] # (Auto) Eos # (Auto) Baso # (Auto) Abs Immat Gran (auto) Absolute Neuts (auto) 3.7 6.0 3.4 Absolute Nucleated RBC Nucleated RBC % (auto) Sodium Potassium Chloride Carbon Dioxide Anion Gap BUN Creatinine Estim Creat Clear Calc Estimated GFR POC Glucose Random Glucose Fasting Glucose Estimat Average Glucose Hemoglobin A1c % Calcium Magnesium Total Bilirubin AST ALT Alkaline Phosphatase Total Protein Albumin Triglycerides Cholesterol LDL Cholesterol, Calc HDL Cholesterol Vitamin B12 Folate TSH Urine Color Urine Appearance Urine pH Ur Specific [place] Urine Protein Urine Glucose (UA) Urine Ketones Urine Blood Urine Nitrite Ur Leukocyte Esterase Urine RBC Urine WBC Ur Squamous Epith Cells Urine Bacteria Hyaline Casts Urine Opiates Screen Ur Buprenorphine Scrn Ur Oxycodone Screen Urine Methadone Screen Urine Fentanyl Screen Ur Barbiturates Screen Ur Phencyclidine Scrn Ur Amphetamines Screen U Benzodiazepines Scrn Urine Cocaine Screen U Marijuana (THC) Screen Ethyl Alcohol 04/29/24 05/06/24 05/13/24 08:53 08:22 08:34 WBC RBC Hgb Hct MCV MCH MCHC RDW Plt Count MPV Immature Gran % (Auto) Neut % (Auto) Lymph % (Auto) [place] % (Auto) Eos % (Auto) Baso % (Auto) Lymph # (Auto) [place] # (Auto) Eos # (Auto) Baso # (Auto) Abs Immat Gran (auto) Absolute Neuts (auto) 6.0 3.7 4.6 Absolute Nucleated RBC Nucleated RBC % (auto) Sodium Potassium Chloride Carbon Dioxide Anion Gap BUN Creatinine Estim Creat Clear Calc Estimated GFR POC Glucose Random Glucose Fasting Glucose Estimat Average Glucose Hemoglobin A1c % Calcium Magnesium Total Bilirubin AST ALT Alkaline Phosphatase Total Protein Albumin Triglycerides Cholesterol LDL Cholesterol, Calc HDL Cholesterol Vitamin B12 Folate TSH Urine Color Urine Appearance Urine pH Ur Specific [place] Urine Protein Urine Glucose (UA) Urine Ketones Urine Blood Urine Nitrite Ur Leukocyte Esterase Urine RBC Urine WBC Ur Squamous Epith Cells Urine Bacteria Hyaline Casts Urine Opiates Screen Ur Buprenorphine Scrn Ur Oxycodone Screen Urine Methadone Screen Urine Fentanyl Screen Ur Barbiturates Screen Ur Phencyclidine Scrn Ur Amphetamines Screen U Benzodiazepines Scrn Urine Cocaine Screen U Marijuana (THC) Screen Ethyl Alcohol 05/20/24 05/27/24 06/03/24 10:23 10:43 07:30 WBC RBC Hgb Hct MCV MCH MCHC RDW Plt Count MPV Immature Gran % (Auto) Neut % (Auto) Lymph % (Auto) [place] % (Auto) Eos % (Auto) Baso % (Auto) Lymph # (Auto) [place] # (Auto) Eos # (Auto) Baso # (Auto) Abs Immat Gran (auto) Absolute Neuts (auto) 5.4 8.1 3.8 Absolute Nucleated RBC Nucleated RBC % (auto) Sodium Potassium Chloride Carbon Dioxide Anion Gap BUN Creatinine Estim Creat Clear Calc Estimated GFR POC Glucose Random Glucose Fasting Glucose Estimat Average Glucose Hemoglobin A1c % Calcium Magnesium Total Bilirubin AST ALT Alkaline Phosphatase Total Protein Albumin Triglycerides Cholesterol LDL Cholesterol, Calc HDL Cholesterol Vitamin B12 Folate TSH Urine Color Urine Appearance Urine pH Ur Specific [place] Urine Protein Urine Glucose (UA) Urine Ketones Urine Blood Urine Nitrite Ur Leukocyte Esterase Urine RBC Urine WBC Ur Squamous Epith Cells Urine Bacteria Hyaline Casts Urine Opiates Screen Ur Buprenorphine Scrn Ur Oxycodone Screen Urine Methadone Screen Urine Fentanyl Screen Ur Barbiturates Screen Ur Phencyclidine Scrn Ur Amphetamines Screen U Benzodiazepines Scrn Urine Cocaine Screen U Marijuana (THC) Screen Ethyl Alcohol Airway Mallampati Class: II TM Dist: >3cm Neck ROM: Full Heart: rrr Lungs: cta Assessment and Plan Assessment Anesthesia Assessment: Anesthesia Plan Discussed and Chart Reviewed Final Anesthetic Review Family History of Problems with Anesthesia: No History of Problems with Anesthesia: No NPO: Yes ASA Class: III Final Preanesthetic Review: No Changes in Pt Med Stat, Meds/Allgs Chart Reviewed and Consent Obtained/Reviewed Patient Risk: Intermediate Procedure Risk: Intermediate Anesthetic Plan Anesthetic Plan: GA Disposition: Standard PACU
--- NOTE | 2024-06-05 07:33 | MHC.SHP ---
Pre-Procedural Eval Section A - 24 Hr Update-Section A only Date of Service: 06/05/24 Section B - Complete if H&P > 30 days Chief Complaint: Psychosis Details of Present Illness: pt has been having ect stable no s./e much improved no acute med prob Present Medications: see Short Stay Collaborative assessment Allergies: Allergies Allergy/AdvReac Type Severity Reaction Status Date / Time trifluoperazine Allergy Unknown Verified 03/11/24 14:16 [From Adrian] Review of Systems Sugical H&P ROS: Negative: Constitution, Cardiovascular and Respiratory and Yes, Specify: Psychiatric (some harry) Exam Surgical H&P Exam: Normal: Heart, Normal: Lungs and Normal: Neurological Plan Diagnosis/Plan: Unchanged I have reviewed the history and physical and performed a pertinent physical examination on my patient. No changes have occurred unless specified. Time Spent With Patient Time: Total time managing care of this patient today ____ minutes.
[2024-06-05] MEDS: Acetaminophen 325 MG TABLET 650 MG PO ×2 (09:47→20:54)
[2024-06-05] MEDS: cloZAPine 100 MG TABLET PO ×2 (09:48→13:30)
[2024-06-05] MEDS: Famotidine 20 MG TABLET PO (09:48)
[2024-06-05] MEDS: lamoTRIgine 25 MG TABLET 50 MG PO ×2 (09:48→20:53)
[2024-06-05] MEDS: risperiDONE 3 MG TABLET 6 MG PO ×2 (09:48→20:53)
--- NOTE | 2024-06-05 13:21 | HO.PSYCHPN ---
Subjective Subjective Date of Service: 06/05/24 Reason For Visit: Psychosis Subjective Notes: Conditional Voluntary Interim History: The nursing staff reported the patient is doing better, she slept 8 hours her affect is brighter. The criminal justice social worker will arrange a meeting next Saturday with her daughter for discharge planning. On interview the patient reported that she had ECT and she is feeling much better, slightly over-sedated after the procedure. Mental Status Exam Mental Status Exam Patient Appearance: Appropriate Patient Orientation: Person and Situation Level of Consciousness: Awake and Appropriate Patient Behavior: Guarded and Passive Mood Description: Withdrawn Affect Description: Constricted Patient Cognition Impaired: Yes Ability to Follow Directions: Good Speech Pattern: Clear Hallucinations: None Delusions: Paranoid Ideation and Ideas of Reference Thought Process: Distracted and Slowed Thinking Thought Content: positive for [place] and positive for Poverty of Content Judgement: Fair Diagnostics Vital Signs (24Hr): Vital Signs - 24 hr 06/04/24 20:00 06/05/24 06:46 06/05/24 07:54 Temperature 97.8 F 97.1 F 98.2 F Pulse Rate 75 85 72 Respiratory Rate 16 16 16 Blood Pressure 124/63 113/69 164/87 H Pulse Oximetry 100 96 93 Oxygen Delivery Method Room Air Room Air Nasal Cannula Oxygen Flow Rate 2 06/05/24 07:59 06/05/24 08:04 06/05/24 08:09 Temperature Pulse Rate 78 78 77 Respiratory Rate 16 16 16 Blood Pressure 141/86 H 139/84 134/81 Pulse Oximetry 93 94 95 Oxygen Delivery Method Nasal Cannula Nasal Cannula Nasal Cannula Oxygen Flow Rate 2 2 2 06/05/24 08:23 06/05/24 09:52 Temperature 98.3 F 97.2 F Pulse Rate 79 87 Respiratory Rate 16 18 Blood Pressure 132/80 124/68 Pulse Oximetry 94 97 Oxygen Delivery Method Room Air Oxygen Flow Rate BMI result Body Mass Index 27.6 Labs 04/05/24 15:38 04/05/24 15:38 Imaging Radiology Impressions: ITS Impressions Head CT 03/18/24 09:42 IMPRESSION: 1. No evidence of acute intracranial hemorrhage or edematous territorial infarction. 2. Mild to moderate underlying microangiopathy. 3. Arachnoid cyst in the right middle cranial fossa. Electronically signed by: Mino Arriaga DO 03/18/2024 06:26 PM [facility] Head CT 03/19/24 01:36 IMPRESSION: 1. Left frontal scalp soft tissue swelling. 2. No acute intracranial process seen. 3. Stable right middle cranial fossa arachnoid cyst. Electronically signed by: Andreas Olsen MD 03/19/2024 02:08 AM EST RP Head CT 04/05/24 16:20 IMPRESSION: 1. No acute intracranial hemorrhage or mass effect. 2. Stable right middle cranial fossa arachnoid cyst. Electronically signed by: Getachew Arana MD 04/05/2024 05:15 PM EST RP [facility] X-Ray 04/16/24 13:57 IMPRESSION: Nonobstructive bowel gas pattern. Large colonic and rectal fecal material. Electronically signed by: Chencho Ugalde MD 04/16/2024 02:13 PM EST RP Medications Medications Current Medications Acetaminophen (Acetaminophen 325 Mg Tablet) 650 mg PO BID PRN PRN Reason: Headache/Pain Mild Scale (1-3) Acetaminophen (Acetaminophen 325 Mg Tablet) 650 mg PO BID [facility] Last Admin: 06/05/24 09:47 Dose: 650 mg Al Hydroxide/Mg Hydroxide (Magnesium Hydrox/Alum Hydrox 30 Ml Oral.Susp) 30 ml PO Q6H PRN PRN Reason: Heartburn/Nausea Clozapine (Clozapine 100 Mg Tablet) 100 mg PO DAILY [facility] Last Admin: 06/05/24 09:48 Dose: 100 mg Clozapine (Clozapine 100 Mg Tablet) 100 mg PO DAILY@1230 [facility] Last Admin: 06/04/24 12:04 Dose: 100 mg Clozapine (Clozapine 100 Mg Tablet) 200 mg PO BEDTIME [facility] Last Admin: 06/04/24 20:39 Dose: 200 mg Famotidine (Famotidine 20 Mg Tablet) 20 mg PO DAILY [facility] Last Admin: 06/05/24 09:48 Dose: 20 mg Hydrocortisone (Hydrocortisone 2.5 % Rectal Cr 30 Gm Tube) 1 appl [place] DAILY [facility] Last Admin: 06/05/24 09:50 Dose: Not Given Hydroxyzine HCl (Hydroxyzine Hcl 25 Mg Tablet) 25 mg PO Q6H PRN PRN Reason: Anxiety Last Admin: 05/31/24 21:04 Dose: 25 mg Lactated Ringer's (Lr) 1,000 mls @ 50 mls/hr IVCONT .Q20H [facility] Lamotrigine (Lamotrigine 25 Mg Tablet) 50 mg PO BID [facility] Last Admin: 06/05/24 09:48 Dose: 50 mg Levothyroxine Sodium (Levothyroxine Sodium 75 Mcg Tablet) 75 mcg PO DAILY@0600 [facility] Last Admin: 06/05/24 05:22 Dose: Not Given Magnesium Hydroxide (Milk Of Magnesia 30 Ml Oral.Susp) 30 ml PO BID PRN PRN Reason: Constipation Last Admin: 05/30/24 17:29 Dose: 30 ml Mirtazapine (Mirtazapine 7.5 Mg Tablet) 7.5 mg PO BEDTIME [facility] Last Admin: 06/04/24 20:39 Dose: 7.5 mg Naloxone HCl (Naloxone Hcl 0.4 Mg/Ml Vial) 0.04 mg IVPUSH Q5M PRN PRN Reason: Excessive sedation or RR < 8 Nicotine Polacrilex (Nicotine Polacrilex 2 Mg Gum) 2 mg BUCCAL Q2H PRN PRN Reason: Nicotine Cravings Olanzapine (Olanzapine 5 Mg Tablet) 5 mg PO Q4H PRN PRN Reason: Psychosis Last Admin: 05/09/24 10:24 Dose: 5 mg Polyethylene Glycol (Polyethylene Glycol 3350 17 Gm Powd.Pack) 17 gm PO DAILY PRN PRN Reason: Constipation Last Admin: 04/18/24 00:24 Dose: 17 gm Polyethylene Glycol (Polyethylene Glycol 3350 17 Gm Powd.Pack) 17 gm PO DAILY [facility] Last Admin: 06/05/24 09:50 Dose: Not Given Risperidone (Risperidone 3 Mg Tablet) 6 mg PO BID [facility] Last Admin: 06/05/24 09:48 Dose: 6 mg Senna (Sennosides 8.6 Mg Tablet) 8.6 mg PO DAILY [facility] Last Admin: 06/05/24 09:51 Dose: Not Given Trazodone HCl (Trazodone Hcl 50 Mg Tablet) 50 mg PO BEDTIME MRX1 PRN PRN Reason: Insomnia Last Admin: 06/02/24 20:37 Dose: 50 mg Allergies Allergies Allergy/AdvReac Type Severity Reaction Status Date / Time trifluoperazine Allergy Unknown Verified 03/11/24 14:16 [From Stelazine] Assessment & Plan Assessment & Plan (1) Schizophrenia: Status: Acute Code(s): F20.9 - Schizophrenia, unspecified (2) Diverticulosis: Status: Chronic Code(s): K57.90 - Diverticulosis of intestine, part unspecified, without perforation or abscess without bleeding Plan Patient is a 73-year-old female with a PMH significant for HTN, post op VTE 2 years ago, hypothyroidism, and mood disorder who was admitted to [facility] after eloping from [facility] and walking into traffic on purpose. Patient apparently believes a friend is writing a horrible story about and does not want to live after everyone reads the book as she believes everyone will hate her. Hospitalist consult for ECT risk stratification. ECT risk stratification Previously underwent ECT without complications in 1998 Currently no significant medical complaints or PMH EKG from 7 days prior at time of admission negative for ischemia RCRI 0 points, class I risk Will repeat EKG before completing risk stratification Plan 1. Continue Risperdal 6 mg p.o. b.i.d.. 2. Clozaril has been changed to 100 mg p.o. b.i.d. and 200 mg p.o. q.h.s. to avoid over-sedation. 3. So far her psychosis had become stable. 4. ECT was considered and on May 13 the patient request this procedure since she reported she is feeling worse. We will try to schedule her ECT as soon as possible. 5. Referral for [facility] team. They assessed her on May 05 and stated that she is not at baseline but it seems that this is now her new baseline. So far she had not been assaultive for grossly disorganized after the medication changes and increase of Clozaril. 6. Family meeting next week to address the possibility of ECT and disposition. On May 13 her son who is the affirmed healthcare proxy signed herself in to ECT. 7. Zyprexa 5 mg p.o. q.6 hours PRNs hallucinations. 8. The patient is not at baseline at this moment we will continue with ECT. 9. Start Remeron 7.5 p.o. q.h.s. to target depression Reason for continued inpatient stay Substantial Risk for: inability to function, rapid decompensation and med/psych decompensation Time Spent With Patient Time: Total time managing care of this patient today __20__ minutes.
[2024-06-05] MEDS: cloZAPine 100 MG TABLET 200 MG PO (20:53)
[2024-06-05] MEDS: Mirtazapine 7.5 MG TABLET PO (20:53)
[2024-06-06] MEDS: Levothyroxine Sodium 75 MCG TABLET PO (05:39)
[2024-06-06 07:55] VITALS: BP 135/79; PULSE 86; RESP 18; TEMP 36.3; O2SAT 98
[2024-06-06] MEDS: polyethylene glycoL 3350 17 GM POWD.PACK PO (08:48)
[2024-06-06] MEDS: lamoTRIgine 25 MG TABLET 50 MG PO ×2 (08:48→20:48)
[2024-06-06] MEDS: cloZAPine 100 MG TABLET PO ×2 (08:48→12:34)
[2024-06-06] MEDS: Famotidine 20 MG TABLET PO (08:49)
[2024-06-06] MEDS: Acetaminophen 325 MG TABLET 650 MG PO ×2 (08:49→20:49)
[2024-06-06] MEDS: risperiDONE 3 MG TABLET 6 MG PO ×2 (08:49→20:48)
--- NOTE | 2024-06-06 09:31 | HO.PSYCHPN ---
Subjective Subjective Date of Service: 06/06/24 Reason For Visit: Psychosis Subjective Notes: Conditional Voluntary Healthcare Proxy: No Guardianship: No Medical Problems Affecting Mental Status: No Interim History: Pt seen, reviewed with her team She is alert, interactive, attentive and conversational today She denies sx of concern and reports she feels improved. Medication Compliance: Yes Side effects from medications: No Attending Groups: Intermittent Review of Systems Acute medical concerns: No Review of Systems Review of Systems Denies Mental Status Exam Mental Status Exam Patient Appearance: Appropriate Patient Orientation: Person and Situation Level of Consciousness: Awake and Appropriate Patient Behavior: Guarded and Passive Mood Description: Withdrawn Affect Description: Constricted Patient Cognition Impaired: Yes Ability to Follow Directions: Good Speech Pattern: Clear Hallucinations: None Delusions: Paranoid Ideation and Ideas of Reference Thought Process: Distracted and Slowed Thinking Thought Content: positive for [place] and positive for Poverty of Content Judgement: Fair Diagnostics Vital Signs (24Hr): Vital Signs - 24 hr 06/05/24 09:52 06/05/24 20:00 Temperature 97.2 F 98.3 F Pulse Rate 87 78 Respiratory Rate 18 16 Blood Pressure 124/68 112/72 Pulse Oximetry 97 96 Oxygen Delivery Method Room Air BMI result Body Mass Index 27.6 Labs 04/05/24 15:38 04/05/24 15:38 Imaging Radiology Impressions: ITS Impressions Head CT 03/18/24 09:42 IMPRESSION: 1. No evidence of acute intracranial hemorrhage or edematous territorial infarction. 2. Mild to moderate underlying microangiopathy. 3. Arachnoid cyst in the right middle cranial fossa. Electronically signed by: Mino Arriaga DO 03/18/2024 06:26 PM EST RP Head CT 03/19/24 01:36 IMPRESSION: 1. Left frontal scalp soft tissue swelling. 2. No acute intracranial process seen. 3. Stable right middle cranial fossa arachnoid cyst. Electronically signed by: Andreas Olsen MD 03/19/2024 02:08 AM EST RP Head CT 04/05/24 16:20 IMPRESSION: 1. No acute intracranial hemorrhage or mass effect. 2. Stable right middle cranial fossa arachnoid cyst. Electronically signed by: Getachew Arana MD 04/05/2024 05:15 PM EST RP KUB X-Ray 04/16/24 13:57 IMPRESSION: Nonobstructive bowel gas pattern. Large colonic and rectal fecal material. Electronically signed by: Chencho Ugalde MD 04/16/2024 02:13 PM [facility] Medications Medications Current Medications Acetaminophen (Acetaminophen 325 Mg Tablet) 650 mg PO BID PRN PRN Reason: Headache/Pain Mild Scale (1-3) Acetaminophen (Acetaminophen 325 Mg Tablet) 650 mg PO BID [facility] Last Admin: 06/06/24 08:49 Dose: 650 mg Al Hydroxide/Mg Hydroxide (Magnesium Hydrox/Alum Hydrox 30 Ml Oral.Susp) 30 ml PO Q6H PRN PRN Reason: Heartburn/Nausea Clozapine (Clozapine 100 Mg Tablet) 100 mg PO DAILY [facility] Last Admin: 06/06/24 08:48 Dose: 100 mg Clozapine (Clozapine 100 Mg Tablet) 100 mg PO DAILY@1230 [facility] Last Admin: 06/05/24 13:30 Dose: 100 mg Clozapine (Clozapine 100 Mg Tablet) 200 mg PO BEDTIME [facility] Last Admin: 06/05/24 20:53 Dose: 200 mg Famotidine (Famotidine 20 Mg Tablet) 20 mg PO DAILY [facility] Last Admin: 06/06/24 08:49 Dose: 20 mg Hydrocortisone (Hydrocortisone 2.5 % Rectal Cr 30 Gm Tube) 1 appl MA DAILY [facility] Last Admin: 06/06/24 08:49 Dose: Not Given Hydroxyzine HCl (Hydroxyzine Hcl 25 Mg Tablet) 25 mg PO Q6H PRN PRN Reason: Anxiety Last Admin: 05/31/24 21:04 Dose: 25 mg Lactated Ringer's (Lr) 1,000 mls @ 50 mls/hr IVCONT .Q20H [facility] Lamotrigine (Lamotrigine 25 Mg Tablet) 50 mg PO BID [facility] Last Admin: 06/06/24 08:48 Dose: 50 mg Levothyroxine Sodium (Levothyroxine Sodium 75 Mcg Tablet) 75 mcg PO DAILY@0600 [facility] Last Admin: 06/06/24 05:39 Dose: 75 mcg Magnesium Hydroxide (Milk Of Magnesia 30 Ml Oral.Susp) 30 ml PO BID PRN PRN Reason: Constipation Last Admin: 05/30/24 17:29 Dose: 30 ml Mirtazapine (Mirtazapine 7.5 Mg Tablet) 7.5 mg PO BEDTIME [facility] Last Admin: 06/05/24 20:53 Dose: 7.5 mg Naloxone HCl (Naloxone Hcl 0.4 Mg/Ml Vial) 0.04 mg IVPUSH Q5M PRN PRN Reason: Excessive sedation or RR < 8 Nicotine Polacrilex (Nicotine Polacrilex 2 Mg Gum) 2 mg BUCCAL Q2H PRN PRN Reason: Nicotine Cravings Olanzapine (Olanzapine 5 Mg Tablet) 5 mg PO Q4H PRN PRN Reason: Psychosis Last Admin: 05/09/24 10:24 Dose: 5 mg Polyethylene Glycol (Polyethylene Glycol 3350 17 Gm Powd.Pack) 17 gm PO DAILY PRN PRN Reason: Constipation Last Admin: 04/18/24 00:24 Dose: 17 gm Polyethylene Glycol (Polyethylene Glycol 3350 17 Gm Powd.Pack) 17 gm PO DAILY [facility] Last Admin: 06/06/24 08:48 Dose: 17 gm Risperidone (Risperidone 3 Mg Tablet) 6 mg PO BID [facility] Last Admin: 06/06/24 08:49 Dose: 6 mg Senna (Sennosides 8.6 Mg Tablet) 8.6 mg PO DAILY [facility] Last Admin: 06/06/24 08:50 Dose: Not Given Trazodone HCl (Trazodone Hcl 50 Mg Tablet) 50 mg PO BEDTIME MRX1 PRN PRN Reason: Insomnia Last Admin: 06/02/24 20:37 Dose: 50 mg Allergies Allergies Allergy/AdvReac Type Severity Reaction Status Date / Time trifluoperazine Allergy Unknown Verified 03/11/24 14:16 [From Stelazine] Assessment & Plan Assessment & Plan (1) Schizophrenia: Status: Acute Code(s): F20.9 - Schizophrenia, unspecified (2) Diverticulosis: Status: Chronic Code(s): K57.90 - Diverticulosis of intestine, part unspecified, without perforation or abscess without bleeding Plan Patient is a 73-year-old female with a PMH significant for HTN, post op VTE 2 years ago, hypothyroidism, and mood disorder who was admitted to [facility] after eloping from [facility] and walking into traffic on purpose. Patient apparently believes a friend is writing a horrible story about and does not want to live after everyone reads the book as she believes everyone will hate her. Hospitalist consult for ECT risk stratification. ECT risk stratification Previously underwent ECT without complications in 1998 Currently no significant medical complaints or PMH EKG from 7 days prior at time of admission negative for ischemia RCRI 0 points, class I risk Will repeat EKG before completing risk stratification Plan 1. Continue Risperdal 6 mg p.o. b.i.d.. 2. Clozaril has been changed to 100 mg p.o. b.i.d. and 200 mg p.o. q.h.s. to avoid over-sedation. 3. So far her psychosis had become stable. 4. ECT was considered and on May 13 the patient request this procedure since she reported she is feeling worse. We will try to schedule her ECT as soon as possible. 5. Referral for [facility]SS team. They assessed her on May 05 and stated that she is not at baseline but it seems that this is now her new baseline. So far she had not been assaultive for grossly disorganized after the medication changes and increase of Clozaril. 6. Family meeting next week to address the possibility of ECT and disposition. On May 13 her son who is the affirmed healthcare proxy signed herself in to ECT. 7. Zyprexa 5 mg p.o. q.6 hours PRNs hallucinations. 8. The patient is not at baseline at this moment we will continue with ECT. 9. Start Remeron 7.5 p.o. q.h.s. to target depression 06/06/24: Continue current regime and plan of care. Reason for continued inpatient stay Substantial Risk for: rapid decompensation Time Spent With Patient Time: Total time managing care of this patient today ____ minutes.
[2024-06-06 20:00] VITALS: BP 135/72; PULSE 80; RESP 16; TEMP 36.4; O2SAT 98
[2024-06-06] MEDS: Mirtazapine 7.5 MG TABLET PO (20:48)
[2024-06-06] MEDS: cloZAPine 100 MG TABLET 200 MG PO (20:49)
[2024-06-07] MEDS: Levothyroxine Sodium 75 MCG TABLET PO (06:11)
[2024-06-07 08:00] VITALS: BP 149/83; PULSE 81; RESP 18; TEMP 36.1; O2SAT 98
[2024-06-07] MEDS: lamoTRIgine 25 MG TABLET 50 MG PO ×2 (08:37→20:22)
[2024-06-07] MEDS: cloZAPine 100 MG TABLET PO ×2 (08:37→11:57)
[2024-06-07] MEDS: risperiDONE 3 MG TABLET 6 MG PO ×2 (08:37→20:22)
[2024-06-07] MEDS: Famotidine 20 MG TABLET PO (08:38)
[2024-06-07] MEDS: Acetaminophen 325 MG TABLET 650 MG PO ×2 (08:38→20:23)
[2024-06-07] MEDS: Sennosides 8.6 MG TABLET PO (08:39)
[2024-06-07] MEDS: polyethylene glycoL 3350 17 GM POWD.PACK PO (08:43)
--- NOTE | 2024-06-07 09:42 | HO.PSYCHPN ---
Subjective Subjective Date of Service: 06/07/24 Reason For Visit: Psychosis Subjective Notes: Conditional Voluntary Healthcare Proxy: No Guardianship: No Medical Problems Affecting Mental Status: No Interim History: Pt seen and reviewed with her team. Today, she spoke of her ECT treatments. She believes they have been helpful and identifies that the most important thing ECT has done for her was to take the preoccupied evil thoughts away Medication Compliance: Yes Side effects from medications: No Attending Groups: Intermittent Review of Systems Acute medical concerns: No Review of Systems Review of Systems denies Mental Status Exam Mental Status Exam Patient Appearance: Appropriate Patient Orientation: Person and Situation Level of Consciousness: Awake and Appropriate Patient Behavior: Guarded and Passive Mood Description: Withdrawn Affect Description: Constricted Patient Cognition Impaired: Yes Ability to Follow Directions: Good Speech Pattern: Clear Hallucinations: None Delusions: Paranoid Ideation and Ideas of Reference Thought Process: Distracted and Slowed Thinking Thought Content: positive for [place] and positive for Poverty of Content Judgement: Fair Diagnostics Vital Signs (24Hr): Vital Signs - 24 hr 06/06/24 20:00 06/07/24 08:00 Temperature 97.5 F 96.9 F Pulse Rate 80 81 Respiratory Rate 16 18 Blood Pressure 135/72 149/83 H Pulse Oximetry 98 98 Oxygen Delivery Method Room Air Room Air BMI result Body Mass Index 27.6 Labs 04/05/24 15:38 04/05/24 15:38 Imaging Radiology Impressions: ITS Impressions Head CT 03/18/24 09:42 IMPRESSION: 1. No evidence of acute intracranial hemorrhage or edematous territorial infarction. 2. Mild to moderate underlying microangiopathy. 3. Arachnoid cyst in the right middle cranial fossa. Electronically signed by: Mino Arriaga DO 03/18/2024 06:26 PM EST RP Head CT 03/19/24 01:36 IMPRESSION: 1. Left frontal scalp soft tissue swelling. 2. No acute intracranial process seen. 3. Stable right middle cranial fossa arachnoid cyst. Electronically signed by: Andreas Olsen MD 03/19/2024 02:08 AM EST RP Head CT 04/05/24 16:20 IMPRESSION: 1. No acute intracranial hemorrhage or mass effect. 2. Stable right middle cranial fossa arachnoid cyst. Electronically signed by: Getachew Arana MD 04/05/2024 05:15 PM EST RP KUB X-Ray 04/16/24 13:57 IMPRESSION: Nonobstructive bowel gas pattern. Large colonic and rectal fecal material. Electronically signed by: Chencho Ugalde MD 04/16/2024 02:13 PM EST RP Medications Medications Current Medications Acetaminophen (Acetaminophen 325 Mg Tablet) 650 mg PO BID PRN PRN Reason: Headache/Pain Mild Scale (1-3) Acetaminophen (Acetaminophen 325 Mg Tablet) 650 mg PO BID [facility] Last Admin: 06/07/24 08:38 Dose: 650 mg Al Hydroxide/Mg Hydroxide (Magnesium Hydrox/Alum Hydrox 30 Ml Oral.Susp) 30 ml PO Q6H PRN PRN Reason: Heartburn/Nausea Clozapine (Clozapine 100 Mg Tablet) 100 mg PO DAILY [facility] Last Admin: 06/07/24 08:37 Dose: 100 mg Clozapine (Clozapine 100 Mg Tablet) 100 mg PO DAILY@1230 [facility] Last Admin: 06/06/24 12:34 Dose: 100 mg Clozapine (Clozapine 100 Mg Tablet) 200 mg PO BEDTIME [facility] Last Admin: 06/06/24 20:49 Dose: 200 mg Famotidine (Famotidine 20 Mg Tablet) 20 mg PO DAILY [facility] Last Admin: 06/07/24 08:38 Dose: 20 mg Hydrocortisone (Hydrocortisone 2.5 % Rectal Cr 30 Gm Tube) [address] DAILY [facility] Last Admin: 06/07/24 08:43 Dose: Not Given Hydroxyzine HCl (Hydroxyzine Hcl 25 Mg Tablet) 25 mg PO Q6H PRN PRN Reason: Anxiety Last Admin: 05/31/24 21:04 Dose: 25 mg Lamotrigine (Lamotrigine 25 Mg Tablet) 50 mg PO BID [facility] Last Admin: 06/07/24 08:37 Dose: 50 mg Levothyroxine Sodium (Levothyroxine Sodium 75 Mcg Tablet) 75 mcg PO DAILY@0600 [facility] Last Admin: 06/07/24 06:11 Dose: 75 mcg Magnesium Hydroxide (Milk Of Magnesia 30 Ml Oral.Susp) 30 ml PO BID PRN PRN Reason: Constipation Last Admin: 05/30/24 17:29 Dose: 30 ml Mirtazapine (Mirtazapine 7.5 Mg Tablet) 7.5 mg PO BEDTIME [facility] Last Admin: 06/06/24 20:48 Dose: 7.5 mg Naloxone HCl (Naloxone Hcl 0.4 Mg/Ml Vial) 0.04 mg IVPUSH Q5M PRN PRN Reason: Excessive sedation or RR < 8 Nicotine Polacrilex (Nicotine Polacrilex 2 Mg Gum) 2 mg BUCCAL Q2H PRN PRN Reason: Nicotine Cravings Olanzapine (Olanzapine 5 Mg Tablet) 5 mg PO Q4H PRN PRN Reason: Psychosis Last Admin: 05/09/24 10:24 Dose: 5 mg Polyethylene Glycol (Polyethylene Glycol 3350 17 Gm Powd.Pack) 17 gm PO DAILY PRN PRN Reason: Constipation Last Admin: 04/18/24 00:24 Dose: 17 gm Polyethylene Glycol (Polyethylene Glycol 3350 17 Gm Powd.Pack) 17 gm PO DAILY [facility] Last Admin: 06/07/24 08:43 Dose: 17 gm Risperidone (Risperidone 3 Mg Tablet) 6 mg PO BID [facility] Last Admin: 06/07/24 08:37 Dose: 6 mg Senna (Sennosides 8.6 Mg Tablet) 8.6 mg PO DAILY [facility] Last Admin: 06/07/24 08:39 Dose: 8.6 mg Trazodone HCl (Trazodone Hcl 50 Mg Tablet) 50 mg PO BEDTIME MRX1 PRN PRN Reason: Insomnia Last Admin: 06/02/24 20:37 Dose: 50 mg Allergies Allergies Allergy/AdvReac Type Severity Reaction Status Date / Time trifluoperazine Allergy Unknown Verified 03/11/24 14:16 [From Stelazine] Assessment & Plan Assessment & Plan (1) Schizophrenia: Status: Acute Code(s): F20.9 - Schizophrenia, unspecified (2) Diverticulosis: Status: Chronic Code(s): K57.90 - Diverticulosis of intestine, part unspecified, without perforation or abscess without bleeding Plan Patient is a 73-year-old female with a PMH significant for HTN, post op VTE 2 years ago, hypothyroidism, and mood disorder who was admitted to [facility] after eloping from [facility] and walking into traffic on purpose. Patient apparently believes a friend is writing a horrible story about and does not want to live after everyone reads the book as she believes everyone will hate her. Hospitalist consult for ECT risk stratification. ECT risk stratification Previously underwent ECT without complications in 1998 Currently no significant medical complaints or PMH EKG from 7 days prior at time of admission negative for ischemia RCRI 0 points, class I risk Will repeat EKG before completing risk stratification Plan 1. Continue Risperdal 6 mg p.o. b.i.d.. 2. Clozaril has been changed to 100 mg p.o. b.i.d. and 200 mg p.o. q.h.s. to avoid over-sedation. 3. So far her psychosis had become stable. 4. ECT was considered and on May 13 the patient request this procedure since she reported she is feeling worse. We will try to schedule her ECT as soon as possible. 5. Referral for [facility]SS team. They assessed her on May 05 and stated that she is not at baseline but it seems that this is now her new baseline. So far she had not been assaultive for grossly disorganized after the medication changes and increase of Clozaril. 6. Family meeting next week to address the possibility of ECT and disposition. On May 13 her son who is the affirmed healthcare proxy signed herself in to ECT. 7. Zyprexa 5 mg p.o. q.6 hours PRNs hallucinations. 8. The patient is not at baseline at this moment we will continue with ECT. 9. Start Remeron 7.5 p.o. q.h.s. to target depression 06/07/24- Continue current plan/regime. Reason for continued inpatient stay Substantial Risk for: rapid decompensation Time Spent With Patient Time: Total time managing care of this patient today ____ minutes.
[2024-06-07 19:57] VITALS: BP 136/72; PULSE 90; RESP 16; TEMP 36.6; O2SAT 97
[2024-06-07] MEDS: Mirtazapine 7.5 MG TABLET PO (20:22)
[2024-06-07] MEDS: cloZAPine 100 MG TABLET 200 MG PO (20:22)
[2024-06-08] MEDS: Levothyroxine Sodium 75 MCG TABLET PO (06:27)
[2024-06-08 07:55] VITALS: BP 122/62; PULSE 93; RESP 18; TEMP 36.9; O2SAT 97
[2024-06-08] MEDS: lamoTRIgine 25 MG TABLET 50 MG PO ×2 (08:00→20:17)
[2024-06-08] MEDS: Famotidine 20 MG TABLET PO (08:00)
[2024-06-08] MEDS: cloZAPine 100 MG TABLET PO ×2 (08:00→11:59)
[2024-06-08] MEDS: risperiDONE 3 MG TABLET 6 MG PO ×2 (08:00→20:17)
[2024-06-08] MEDS: Acetaminophen 325 MG TABLET 650 MG PO ×2 (08:00→20:16)
[2024-06-08] MEDS: polyethylene glycoL 3350 17 GM POWD.PACK PO (08:01)
[2024-06-08] MEDS: Sennosides 8.6 MG TABLET PO (08:07)
--- NOTE | 2024-06-08 08:30 | P.PNPSI_ITS ---
Subjective Subjective Date of Service: 06/08/24 Reason For Visit: Psychosis Interim History: Pt awake, alert, clearly having had benefit from ECT Medication Compliance: Yes Side effects from medications: No Attending Groups: Intermittent Review of Systems Acute medical concerns: No Review of Systems Review of Systems Yes all other systems are reviewed and are negative Mental Status Exam Mental Status Exam Patient Appearance: Appropriate Patient Orientation: Person and Situation Level of Consciousness: Awake and Appropriate Patient Behavior: Guarded and Passive Mood Description: Withdrawn Affect Description: Constricted Patient Cognition Impaired: Yes Ability to Follow Directions: Good Speech Pattern: Clear Hallucinations: None Delusions: Paranoid Ideation and Ideas of Reference Thought Process: Distracted and Slowed Thinking Thought Content: positive for [place] and positive for Poverty of Content Judgement: Fair Diagnostics Vital Signs (24Hr): Vital Signs - 24 hr 06/07/24 19:57 Temperature 97.8 F Pulse Rate 90 Respiratory Rate 16 Blood Pressure 136/72 Pulse Oximetry 97 Oxygen Delivery Method Room Air BMI result Body Mass Index 27.6 Labs 04/05/24 15:38 04/05/24 15:38 Imaging Radiology Impressions: ITS Impressions Head CT 03/18/24 09:42 IMPRESSION: 1. No evidence of acute intracranial hemorrhage or edematous territorial infarction. 2. Mild to moderate underlying microangiopathy. 3. Arachnoid cyst in the right middle cranial fossa. Electronically signed by: Mino Arriaga DO 03/18/2024 06:26 PM EST RP Head CT 03/19/24 01:36 IMPRESSION: 1. Left frontal scalp soft tissue swelling. 2. No acute intracranial process seen. 3. Stable right middle cranial fossa arachnoid cyst. Electronically signed by: Andreas Olsen MD 03/19/2024 02:08 AM EST RP Head CT 04/05/24 16:20 IMPRESSION: 1. No acute intracranial hemorrhage or mass effect. 2. Stable right middle cranial fossa arachnoid cyst. Electronically signed by: Getachew Arana MD 04/05/2024 05:15 PM EST RP KUB X-Ray 04/16/24 13:57 IMPRESSION: Nonobstructive bowel gas pattern. Large colonic and rectal fecal material. Electronically signed by: Chencho Ugalde MD 04/16/2024 02:13 PM EST RP Medications Medications Current Medications Acetaminophen (Acetaminophen 325 Mg Tablet) 650 mg PO BID PRN PRN Reason: Headache/Pain Mild Scale (1-3) Acetaminophen (Acetaminophen 325 Mg Tablet) 650 mg PO BID [facility] Last Admin: 06/08/24 08:00 Dose: 650 mg Al Hydroxide/Mg Hydroxide (Magnesium Hydrox/Alum Hydrox 30 Ml Oral.Susp) 30 ml PO Q6H PRN PRN Reason: Heartburn/Nausea Clozapine (Clozapine 100 Mg Tablet) 100 mg PO DAILY [facility] Last Admin: 06/08/24 08:00 Dose: 100 mg Clozapine (Clozapine 100 Mg Tablet) 100 mg PO DAILY@1230 [facility] Last Admin: 06/07/24 11:57 Dose: 100 mg Clozapine (Clozapine 100 Mg Tablet) 200 mg PO BEDTIME [facility] Last Admin: 06/07/24 20:22 Dose: 200 mg Famotidine (Famotidine 20 Mg Tablet) 20 mg PO DAILY [facility] Last Admin: 06/08/24 08:00 Dose: 20 mg Hydrocortisone (Hydrocortisone 2.5 % Rectal Cr 30 Gm Tube) 1 appl [place] DAILY [facility] Last Admin: 06/08/24 08:01 Dose: Not Given Hydroxyzine HCl (Hydroxyzine Hcl 25 Mg Tablet) 25 mg PO Q6H PRN PRN Reason: Anxiety Last Admin: 05/31/24 21:04 Dose: 25 mg Lamotrigine (Lamotrigine 25 Mg Tablet) 50 mg PO BID [facility] Last Admin: 06/08/24 08:00 Dose: 50 mg Levothyroxine Sodium (Levothyroxine Sodium 75 Mcg Tablet) 75 mcg PO DAILY@0600 [facility] Last Admin: 06/08/24 06:27 Dose: 75 mcg Magnesium Hydroxide (Milk Of Magnesia 30 Ml Oral.Susp) 30 ml PO BID PRN PRN Reason: Constipation Last Admin: 05/30/24 17:29 Dose: 30 ml Mirtazapine (Mirtazapine 7.5 Mg Tablet) 7.5 mg PO BEDTIME [facility] Last Admin: 06/07/24 20:22 Dose: 7.5 mg Naloxone HCl (Naloxone Hcl 0.4 Mg/Ml Vial) 0.04 mg IVPUSH Q5M PRN PRN Reason: Excessive sedation or RR < 8 Nicotine Polacrilex (Nicotine Polacrilex 2 Mg Gum) 2 mg BUCCAL Q2H PRN PRN Reason: Nicotine Cravings Olanzapine (Olanzapine 5 Mg Tablet) 5 mg PO Q4H PRN PRN Reason: Psychosis Last Admin: 05/09/24 10:24 Dose: 5 mg Polyethylene Glycol (Polyethylene Glycol 3350 17 Gm Powd.Pack) 17 gm PO DAILY PRN PRN Reason: Constipation Last Admin: 04/18/24 00:24 Dose: 17 gm Polyethylene Glycol (Polyethylene Glycol 3350 17 Gm Powd.Pack) 17 gm PO DAILY [facility] Last Admin: 06/08/24 08:01 Dose: 17 gm Risperidone (Risperidone 3 Mg Tablet) 6 mg PO BID [facility] Last Admin: 06/08/24 08:00 Dose: 6 mg Senna (Sennosides 8.6 Mg Tablet) 8.6 mg PO DAILY [facility] Last Admin: 06/08/24 08:07 Dose: 8.6 mg Trazodone HCl (Trazodone Hcl 50 Mg Tablet) 50 mg PO BEDTIME MRX1 PRN PRN Reason: Insomnia Last Admin: 06/02/24 20:37 Dose: 50 mg Allergies Allergies Allergy/AdvReac Type Severity Reaction Status Date / Time trifluoperazine Allergy Unknown Verified 03/11/24 14:16 [From Stelazine] Assessment & Plan Assessment & Plan (1) Schizophrenia: Status: Acute Code(s): F20.9 - Schizophrenia, unspecified (2) Diverticulosis: Status: Chronic Code(s): K57.90 - Diverticulosis of intestine, part unspecified, without perforation or abscess without bleeding Plan Patient is a 73-year-old female with a PMH significant for HTN, post op VTE 2 years ago, hypothyroidism, and mood disorder who was admitted to [facility] after eloping from [facility] and walking into traffic on purpose. Patient apparently believes a friend is writing a horrible story about and does not want to live after everyone reads the book as she believes everyone will hate her. Hospitalist consult for ECT risk stratification. ECT risk stratification Previously underwent ECT without complications in 1998 Currently no significant medical complaints or PMH EKG from 7 days prior at time of admission negative for ischemia RCRI 0 points, class I risk Will repeat EKG before completing risk stratification Plan 1. Continue Risperdal 6 mg p.o. b.i.d.. 2. Clozaril has been changed to 100 mg p.o. b.i.d. and 200 mg p.o. q.h.s. to avoid over-sedation. 3. So far her psychosis had become stable. 4. ECT was considered and on May 13 the patient request this procedure since she reported she is feeling worse. We will try to schedule her ECT as soon as possible. 5. Referral for [facility]SS team. They assessed her on May 05 and stated that she is not at baseline but it seems that this is now her new baseline. So far she had not been assaultive for grossly disorganized after the medication changes and increase of Clozaril. 6. Family meeting next week to address the possibility of ECT and disposition. On May 13 her son who is the affirmed healthcare proxy signed herself in to ECT. 7. Zyprexa 5 mg p.o. q.6 hours PRNs hallucinations. 8. The patient is not at baseline at this moment we will continue with ECT. 9. Start Remeron 7.5 p.o. q.h.s. to target depression 06/07/24- Continue current plan/regime. 06/08/24: Continue tx Reason for continued inpatient stay Substantial Risk for: rapid decompensation Time Spent With Patient Time: Total time managing care of this patient today ____ minutes.
[2024-06-08 20:00] VITALS: BP 86/53; PULSE 87; RESP 16; TEMP 37.2; O2SAT 98
[2024-06-08] MEDS: cloZAPine 100 MG TABLET 200 MG PO (20:15)
[2024-06-08] MEDS: Mirtazapine 7.5 MG TABLET PO (20:17)
[2024-06-08 22:26] VITALS: BP 120/57; PULSE 79
[2024-06-09] MEDS: Levothyroxine Sodium 75 MCG TABLET PO (05:48)
[2024-06-09 08:00] VITALS: BP 130/76; PULSE 85; RESP 18; TEMP 36.2; O2SAT 97
[2024-06-09] MEDS: risperiDONE 3 MG TABLET 6 MG PO ×2 (08:27→21:23)
[2024-06-09] MEDS: Acetaminophen 325 MG TABLET 650 MG PO ×2 (08:27→21:25)
[2024-06-09] MEDS: lamoTRIgine 25 MG TABLET 50 MG PO ×2 (08:28→21:24)
[2024-06-09] MEDS: cloZAPine 100 MG TABLET PO ×2 (08:28→12:28)
[2024-06-09] MEDS: Famotidine 20 MG TABLET PO (08:28)
[2024-06-09] MEDS: polyethylene glycoL 3350 17 GM POWD.PACK PO (08:29)
[2024-06-09] MEDS: Sennosides 8.6 MG TABLET PO (08:30)
--- NOTE | 2024-06-09 11:51 | P.PNPSI_ITS ---
Subjective Subjective Date of Service: 06/09/24 Reason For Visit: Psychosis Subjective Notes: Conditional Voluntary Interim History: Nursing staff reported the patient will be pleasant compliant with treatment slept well last night. On interview the patient reports that she is doing fine, we will have a family meeting with [facility] for a possible discharge planning this week. Mental Status Exam Mental Status Exam Patient Appearance: Appropriate Patient Orientation: Person and Situation Level of Consciousness: Awake and Appropriate Patient Behavior: Guarded and Passive Mood Description: Withdrawn Affect Description: Constricted Patient Cognition Impaired: Yes Ability to Follow Directions: Good Speech Pattern: Clear Hallucinations: None Delusions: Paranoid Ideation and Ideas of Reference Thought Process: Distracted and Slowed Thinking Thought Content: positive for [place] and positive for Poverty of Content Judgement: Fair Diagnostics Vital Signs (24Hr): Vital Signs - 24 hr 06/08/24 20:00 06/08/24 22:26 06/09/24 08:00 Temperature 98.9 F 97.2 F Pulse Rate 87 79 85 Respiratory Rate 16 18 Blood Pressure 86/53 L 120/57 L 130/76 Pulse Oximetry 98 97 Oxygen Delivery Method Room Air Room Air BMI result Body Mass Index 27.6 Labs 04/05/24 15:38 04/05/24 15:38 Imaging Radiology Impressions: ITS Impressions Head CT 03/18/24 09:42 IMPRESSION: 1. No evidence of acute intracranial hemorrhage or edematous territorial infarction. 2. Mild to moderate underlying microangiopathy. 3. Arachnoid cyst in the right middle cranial fossa. Electronically signed by: Mino Arriaga DO 03/18/2024 06:26 PM EST RP Head CT 03/19/24 01:36 IMPRESSION: 1. Left frontal scalp soft tissue swelling. 2. No acute intracranial process seen. 3. Stable right middle cranial fossa arachnoid cyst. Electronically signed by: Andreas Olsen MD 03/19/2024 02:08 AM EST RP Head CT 04/05/24 16:20 IMPRESSION: 1. No acute intracranial hemorrhage or mass effect. 2. Stable right middle cranial fossa arachnoid cyst. Electronically signed by: Getachew Arana MD 04/05/2024 05:15 PM EST RP KUB X-Ray 04/16/24 13:57 IMPRESSION: Nonobstructive bowel gas pattern. Large colonic and rectal fecal material. Electronically signed by: Chencho Ugalde MD 04/16/2024 02:13 PM [facility] [place] Medications Current Medications Acetaminophen (Acetaminophen 325 Mg Tablet) 650 mg PO BID PRN PRN Reason: Headache/Pain Mild Scale (1-3) Acetaminophen (Acetaminophen 325 Mg Tablet) 650 mg PO BID [facility] Last Admin: 06/09/24 08:27 Dose: 650 mg Al Hydroxide/Mg Hydroxide (Magnesium Hydrox/Alum Hydrox 30 Ml Oral.Susp) 30 ml PO Q6H PRN PRN Reason: Heartburn/Nausea Clozapine (Clozapine 100 Mg Tablet) 100 mg PO DAILY [facility] Last Admin: 06/09/24 08:28 Dose: 100 mg Clozapine (Clozapine 100 Mg Tablet) 100 mg PO DAILY@1230 [facility] Last Admin: 06/08/24 11:59 Dose: 100 mg Clozapine (Clozapine 100 Mg Tablet) 200 mg PO BEDTIME [facility] Last Admin: 06/08/24 20:15 Dose: 200 mg Famotidine (Famotidine 20 Mg Tablet) 20 mg PO DAILY [facility] Last Admin: 06/09/24 08:28 Dose: 20 mg Hydrocortisone (Hydrocortisone 2.5 % Rectal Cr 30 Gm Tube) 1 appl [place] DAILY [facility] Last Admin: 06/09/24 08:41 Dose: Not Given Hydroxyzine HCl (Hydroxyzine Hcl 25 Mg Tablet) 25 mg PO Q6H PRN PRN Reason: Anxiety Last Admin: 05/31/24 21:04 Dose: 25 mg Lamotrigine (Lamotrigine 25 Mg Tablet) 50 mg PO BID [facility] Last Admin: 06/09/24 08:28 Dose: 50 mg Levothyroxine Sodium (Levothyroxine Sodium 75 Mcg Tablet) 75 mcg PO DAILY@0600 [facility] Last Admin: 06/09/24 05:48 Dose: 75 mcg Magnesium Hydroxide (Milk Of Magnesia 30 Ml Oral.Susp) 30 ml PO BID PRN PRN Reason: Constipation Last Admin: 05/30/24 17:29 Dose: 30 ml Mirtazapine (Mirtazapine 7.5 Mg Tablet) 7.5 mg PO BEDTIME [facility] Last Admin: 06/08/24 20:17 Dose: 7.5 mg Nicotine Polacrilex (Nicotine Polacrilex 2 Mg Gum) 2 mg BUCCAL Q2H PRN PRN Reason: Nicotine Cravings Olanzapine (Olanzapine 5 Mg Tablet) 5 mg PO Q4H PRN PRN Reason: Psychosis Last Admin: 05/09/24 10:24 Dose: 5 mg Polyethylene Glycol (Polyethylene Glycol 3350 17 Gm Powd.Pack) 17 gm PO DAILY PRN PRN Reason: Constipation Last Admin: 04/18/24 00:24 Dose: 17 gm Polyethylene Glycol (Polyethylene Glycol 3350 17 Gm Powd.Pack) 17 gm PO DAILY [facility] Last Admin: 06/09/24 08:29 Dose: 17 gm Risperidone (Risperidone 3 Mg Tablet) 6 mg PO BID [facility] Last Admin: 06/09/24 08:27 Dose: 6 mg Senna (Sennosides 8.6 Mg Tablet) 8.6 mg PO DAILY [facility] Last Admin: 06/09/24 08:30 Dose: 8.6 mg Trazodone HCl (Trazodone Hcl 50 Mg Tablet) 50 mg PO BEDTIME MRX1 PRN PRN Reason: Insomnia Last Admin: 06/02/24 20:37 Dose: 50 mg Allergies Allergies Allergy/AdvReac Type Severity Reaction Status Date / Time trifluoperazine Allergy Unknown Verified 03/11/24 14:16 [From Stelazine] Assessment & Plan Assessment & Plan (1) Schizophrenia: Status: Acute Code(s): F20.9 - Schizophrenia, unspecified (2) Diverticulosis: Status: Chronic Code(s): K57.90 - Diverticulosis of intestine, part unspecified, without perforation or abscess without bleeding Plan Patient is a 73-year-old female with a PMH significant for HTN, post op VTE 2 years ago, hypothyroidism, and mood disorder who was admitted [facility] on purpose. Patient apparently believes a friend is writing a horrible story about and does not want to live after everyone reads the book as she believes everyone will hate her. Hospitalist consult for ECT risk stratification. ECT risk stratification Previously underwent ECT without complications in 1998 Currently no significant medical complaints or PMH EKG from 7 days prior at time of admission negative for ischemia RCRI 0 points, class I risk Will repeat EKG before completing risk stratification Plan 1. Continue Risperdal 6 mg p.o. b.i.d.. 2. Clozaril has been changed to 100 mg p.o. b.i.d. and 200 mg p.o. q.h.s. to avoid over-sedation. 3. So far her psychosis had become stable. 4. ECT was considered and on May 13 the patient request this procedure since she reported she is feeling worse. We will try to schedule her ECT as soon as possible. 5. Referral for [facility] team. They assessed her on May 05 and stated that she is not at baseline but it seems that this is now her new baseline. So far she had not been assaultive for grossly disorganized after the medication changes and increase of Clozaril. 6. Family meeting next week to address the possibility of ECT and disposition. On May 13 her son who is the affirmed healthcare proxy signed the patient in to ECT. 7. Zyprexa 5 mg p.o. q.6 hours PRNs hallucinations. 8. The patient is not at baseline at this moment we will continue with ECT. 9. Start Remeron 7.5 p.o. q.h.s. to target depression 10. Family meeting for discharge planning Reason for continued inpatient stay Substantial Risk for: inability to function, rapid decompensation and med/psych decompensation Time Spent With Patient Time: Total time managing care of this patient today __20__ minutes.
[2024-06-09 20:00] VITALS: BP 119/72; PULSE 79; RESP 16; TEMP 36.4; O2SAT 97
[2024-06-09] MEDS: Mirtazapine 7.5 MG TABLET PO (21:23)
[2024-06-09] MEDS: cloZAPine 100 MG TABLET 200 MG PO (21:24)
[2024-06-10] VITALS (9 sets, daily range): BP systolic 117–175; BP diastolic 62–94; PULSE 69–83; RESP 15–20; TEMP 36.1–37.1; O2SAT 94–97
[2024-06-10] MEDS: Levothyroxine Sodium 75 MCG TABLET PO (06:37)
[2024-06-10 08:03] LABS: Neut%MD 64.5 %; Neutrophils Absolute Auto 4.8 x10*3/uL (2.0-8.3); WBCANC 7.5 X10*3/uL
--- NOTE | 2024-06-10 13:09 | MHC.SHP ---
Pre-Procedural Eval Section A - 24 Hr Update-Section A only Date of Service: 06/10/24 The patient is an INPATIENT: Yes Changes since office visit: No Cold of Flu in the past 2 weeks, No New Medical Problems, No Changes in Medication and No Patient answered all questions The patient has been examined within 24 hours of the surgical procedure. The History & Physical has been completed within 30 days and I have reviewed it.: Yes Section B - Complete if H&P > 30 days Chief Complaint: Psychosis Allergies: Allergies Allergy/AdvReac Type Severity Reaction Status Date / Time trifluoperazine Allergy Unknown Verified 03/11/24 14:16 [From Adrian] Plan I have reviewed the history and physical and performed a pertinent physical examination on my patient. No changes have occurred unless specified. Time Spent With Patient Time: Total time managing care of this patient today ____ minutes.
--- NOTE | 2024-06-10 13:22 | HO.ANESPROP2 ---
HPI - Anesthesia Eval Consult details Narrative: 74 yo female patient for ECT PMFSH Active Problems Active Problems: All Active Problems Arachnoid cyst (Acute) Diverticulosis (Chronic) Pre-op evaluation (Acute) Schizophrenia (Acute) Suicidal ideation (Acute) Past Medical History Medical History Diverticulosis Schizophrenia CKD (chronic kidney disease) Hyperlipidemia Type 2 diabetes mellitus Hypothyroidism HTN (hypertension) GERD (gastroesophageal reflux disease) Mood disorder Functional capacity: independent ambulation Family History Family history of problems with anesthesia: No Surgical History History of Problems with Anesthesia: No Social History Social History Household Members: None Household Members Other:: Lives at [facility] Housing: Assisted Living Facility Do you presently have visiting nurse or other home services: Yes Alcohol intake: current Patient Tobacco Use Status: Former Tobacco user Tobacco use type: Cigarette Cigarette Packs Per Day: 3 Cigarettes Per Day: 60.0 Years Smoked: 16 Second Hand Smoke Exposure: No service: No Sexual orientation: Straight/Heterosexual Meds Allergies Allergy/AdvReac Type Severity Reaction Status Date / Time trifluoperazine Allergy Unknown Verified 03/11/24 14:16 [From Stelazine] Active Medications: Current Medications Acetaminophen (Acetaminophen 325 Mg Tablet) 650 mg PO BID PRN PRN Reason: Headache/Pain Mild Scale (1-3) Acetaminophen (Acetaminophen 325 Mg Tablet) 650 mg PO BID [facility] Last Admin: 06/09/24 21:25 Dose: 650 mg Al Hydroxide/Mg Hydroxide (Magnesium Hydrox/Alum Hydrox 30 Ml Oral.Susp) 30 ml PO Q6H PRN PRN Reason: Heartburn/Nausea Clozapine (Clozapine 100 Mg Tablet) 100 mg PO DAILY [facility] Last Admin: 06/09/24 08:28 Dose: 100 mg Clozapine (Clozapine 100 Mg Tablet) 100 mg PO DAILY@1230 [facility] Last Admin: 06/09/24 12:28 Dose: 100 mg Clozapine (Clozapine 100 Mg Tablet) 200 mg PO BEDTIME [facility] Last Admin: 06/09/24 21:24 Dose: 200 mg Famotidine (Famotidine 20 Mg Tablet) 20 mg PO DAILY [facility] Last Admin: 06/09/24 08:28 Dose: 20 mg Hydrocortisone (Hydrocortisone 2.5 % Rectal Cr 30 Gm Tube) 1 appl [place] DAILY [facility] Last Admin: 06/09/24 08:41 Dose: Not Given Hydroxyzine HCl (Hydroxyzine Hcl 25 Mg Tablet) 25 mg PO Q6H PRN PRN Reason: Anxiety Last Admin: 05/31/24 21:04 Dose: 25 mg Lactated Ringer's (Lr) 1,000 mls @ 50 mls/hr IVCONT .Q20H YURY Lamotrigine (Lamotrigine 25 Mg Tablet) 50 mg PO BID [facility] Last Admin: 06/09/24 21:24 Dose: 50 mg Levothyroxine Sodium (Levothyroxine Sodium 75 Mcg Tablet) 75 mcg PO DAILY@0600 [facility] Last Admin: 06/10/24 06:37 Dose: 75 mcg Magnesium Hydroxide (Milk Of Magnesia 30 Ml Oral.Susp) 30 ml PO BID PRN PRN Reason: Constipation Last Admin: 05/30/24 17:29 Dose: 30 ml Mirtazapine (Mirtazapine 7.5 Mg Tablet) 7.5 mg PO BEDTIME [facility] Last Admin: 06/09/24 21:23 Dose: 7.5 mg Nicotine Polacrilex (Nicotine Polacrilex 2 Mg Gum) 2 mg BUCCAL Q2H PRN PRN Reason: Nicotine Cravings Olanzapine (Olanzapine 5 Mg Tablet) 5 mg PO Q4H PRN PRN Reason: Psychosis Last Admin: 05/09/24 10:24 Dose: 5 mg Polyethylene Glycol (Polyethylene Glycol 3350 17 Gm Powd.Pack) 17 gm PO DAILY PRN PRN Reason: Constipation Last Admin: 04/18/24 00:24 Dose: 17 gm Polyethylene Glycol (Polyethylene Glycol 3350 17 Gm Powd.Pack) 17 gm PO DAILY [facility] Last Admin: 06/09/24 08:29 Dose: 17 gm Risperidone (Risperidone 3 Mg Tablet) 6 mg PO BID [facility] Last Admin: 06/09/24 21:23 Dose: 6 mg Senna (Sennosides 8.6 Mg Tablet) 8.6 mg PO DAILY [facility] Last Admin: 06/09/24 08:30 Dose: 8.6 mg Trazodone HCl (Trazodone Hcl 50 Mg Tablet) 50 mg PO BEDTIME MRX1 PRN PRN Reason: Insomnia Last Admin: 06/02/24 20:37 Dose: 50 mg Home Medications ?Medication ?Instructions ?Recorded ?Confirmed ?Last Taken ?Type clozapine 100 mg tablet 100 mg PO DAILY 03/11/24 03/11/2403/11/24 History clozapine 100 mg tablet 300 mg PO BEDTIME 03/11/24 03/11/24 03/10/24 History famotidine 20 mg tablet 20 mg PO DAILY 03/11/24 03/11/24 03/11/24 History lamotrigine 25 mg tablet 50 mg PO BID 03/11/24 03/11/24 03/11/24 History levothyroxine 75 mcg tablet 75 mcg PO DAILY 03/11/24 03/11/24 03/11/24 History risperidone 2 mg tablet 6 mg PO BID 03/11/24 03/11/24 03/11/24 History sennosides 8.6 mg tablet (senna) 8.6 mg PO DAILY PRN Constipation 03/11/24 03/11/24 Unknown History Exam Height,Weight and Vital Signs: Height 5 ft 6 in Weight 77.564 kg Last Vital Signs Temp 97.9 F 06/10/24 12:50 Pulse 69 06/10/24 12:50 Resp 16 06/10/24 12:50 BP 127/84 06/10/24 12:50 Pulse Ox 96 06/10/24 12:50 O2 Del Method Nasal Cannula 06/10/24 12:50 O2 Flow Rate 2 06/10/24 12:50 Pertinent Lab Results Pertinent Lab Results: Laboratory Tests 03/11/24 03/11/24 03/12/24 11:07 13:25 13:15 WBC 7.8 RBC 3.77 L Hgb 11.6 L Hct 34.5 L MCV 91.5 MCH 30.8 MCHC 33.6 RDW 14.8 Plt Count 205 MPV 10.3 Immature Gran % (Auto) 0.4 Neut % (Auto) 80.2 H Lymph % (Auto) 9.8 L Grady % (Auto) 8.6 Eos % (Auto) 0.5 Baso % (Auto) 0.5 Lymph # (Auto) 0.8 L [place]ady # (Auto) 0.7 Eos # (Auto) 0.0 Baso # (Auto) 0.0 Abs Immat Gran (auto) 0.03 Absolute Neuts (auto) 6.2 Absolute Nucleated RBC 0.000 Nucleated RBC % (auto) 0.0 Sodium 141 Potassium 4.2 Chloride 107 Carbon Dioxide 24 Anion Gap 14 BUN 18 H Creatinine 1.47 H Estim Creat Clear Calc 36.2 Estimated GFR 35 POC Glucose 118 H Random Glucose 119 H Fasting Glucose Estimat Average Glucose Hemoglobin A1c % Calcium 9.8 Magnesium Total Bilirubin 0.3 AST 20 ALT 16 Alkaline Phosphatase 90 Total Protein 6.0 L Albumin 4.0 Triglycerides Cholesterol LDL Cholesterol, Calc HDL Cholesterol Vitamin B12 Folate TSH Urine Color Yellow Urine Appearance Clear Urine pH 6.5 Ur Specific [place] <= 1.005 Urine Protein Negative Urine Glucose (UA) Negative Urine Ketones Negative Urine Blood Negative Urine Nitrite Negative Ur Leukocyte Esterase Small (1+) H Urine RBC 0-2 Urine WBC 0-5 Ur Squamous Epith Cells 0-2 Urine Bacteria None Seen Hyaline Casts 0-2 Urine Opiates Screen Not Detected Ur Buprenorphine Scrn Not Detected Ur Oxycodone Screen Not Detected Urine Methadone Screen Not Detected Urine Fentanyl Screen Not Detected Ur Barbiturates Screen Not Detected Ur Phencyclidine Scrn Not Detected Ur Amphetamines Screen Not Detected U Benzodiazepines Scrn Not Detected Urine Cocaine Screen Not Detected U Marijuana (THC) Screen Not Detected Ethyl Alcohol < 10 03/13/24 03/18/24 03/25/24 08:18 07:57 08:12 WBC RBC Hgb Hct MCV MCH MCHC RDW Plt Count MPV Immature Gran % (Auto) Neut % (Auto) Lymph % (Auto) [place]ady % (Auto) Eos % (Auto) Baso % (Auto) Lymph # (Auto) [place] # (Auto) Eos # (Auto) Baso # (Auto) Abs Immat Gran (auto) Absolute Neuts (auto) 4.2 3.3 Absolute Nucleated RBC Nucleated RBC % (auto) Sodium 142 Potassium 4.0 Chloride 108 Carbon Dioxide 28 Anion Gap 10 L BUN 23 H Creatinine 1.46 H Estim Creat Clear Calc 36.5 Estimated GFR 35 POC Glucose Random Glucose Fasting Glucose 114 H Estimat Average Glucose 114 Hemoglobin A1c % 5.6 Calcium 9.8 Magnesium 2.3 Total Bilirubin 0.4 AST 16 ALT 10 Alkaline Phosphatase 85 Total Protein 5.8 L Albumin 4.0 Triglycerides 133 Cholesterol 218 H LDL Cholesterol, Calc 144 H HDL Cholesterol 48 Vitamin B12 443 Folate 10.9 TSH 3.25 Urine Color Urine Appearance Urine pH Ur Specific [place] Urine Protein Urine Glucose (UA) Urine Ketones Urine Blood Urine Nitrite Ur Leukocyte Esterase Urine RBC Urine WBC Ur Squamous Epith Cells Urine Bacteria Hyaline Casts Urine Opiates Screen Ur Buprenorphine Scrn Ur Oxycodone Screen Urine Methadone Screen Urine Fentanyl Screen Ur Barbiturates Screen Ur Phencyclidine Scrn Ur Amphetamines Screen U Benzodiazepines Scrn Urine Cocaine Screen U Marijuana (THC) Screen Ethyl Alcohol 04/03/24 04/05/24 04/05/24 07:40 15:20 15:38 WBC 6.6 RBC 3.94 L Hgb 12.0 Hct 35.8 L MCV 90.9 MCH 30.5 MCHC 33.5 RDW 13.7 Plt Count 208 MPV 10.5 Immature Gran % (Auto) Neut % (Auto) Lymph % (Auto) [place]ady % (Auto) Eos % (Auto) Baso % (Auto) Lymph # (Auto) [place]ady # (Auto) Eos # (Auto) Baso # (Auto) Abs Immat Gran (auto) Absolute Neuts (auto) 5.0 Absolute Nucleated RBC 0.000 Nucleated RBC % (auto) 0.0 Sodium 144 Potassium 3.5 Chloride 106 Carbon Dioxide 25 Anion Gap 17 BUN 17 H Creatinine 1.50 H Estim Creat Clear Calc 37.2 Estimated GFR 34 POC Glucose 100 Random Glucose 74 Fasting Glucose Estimat Average Glucose Hemoglobin A1c % Calcium 9.8 Magnesium Total Bilirubin 0.4 AST 21 ALT 8 Alkaline Phosphatase 127 H Total Protein 5.8 L Albumin 3.9 Triglycerides Cholesterol LDL Cholesterol, Calc HDL Cholesterol Vitamin B12 Folate TSH Urine Color Urine Appearance Urine pH Ur Specific [place] Urine Protein Urine Glucose (UA) Urine Ketones Urine Blood Urine Nitrite Ur Leukocyte Esterase Urine RBC Urine WBC Ur Squamous Epith Cells Urine Bacteria Hyaline Casts Urine Opiates Screen Ur Buprenorphine Scrn Ur Oxycodone Screen Urine Methadone Screen Urine Fentanyl Screen Ur Barbiturates Screen Ur Phencyclidine Scrn Ur Amphetamines Screen U Benzodiazepines Scrn Urine Cocaine Screen U Marijuana (THC) Screen Ethyl Alcohol 04/12/24 04/15/24 04/22/24 08:30 08:26 07:29 WBC RBC Hgb Hct MCV MCH MCHC RDW Plt Count MPV Immature Gran % (Auto) Neut % (Auto) Lymph % (Auto) [place] % (Auto) Eos % (Auto) Baso % (Auto) Lymph # (Auto) [place] # (Auto) Eos # (Auto) Baso # (Auto) Abs Immat Gran (auto) Absolute Neuts (auto) 3.7 6.0 3.4 Absolute Nucleated RBC Nucleated RBC % (auto) Sodium Potassium Chloride Carbon Dioxide Anion Gap BUN Creatinine Estim Creat Clear Calc Estimated GFR POC Glucose Random Glucose Fasting Glucose Estimat Average Glucose Hemoglobin A1c % Calcium Magnesium Total Bilirubin AST ALT Alkaline Phosphatase Total Protein Albumin Triglycerides Cholesterol LDL Cholesterol, Calc HDL Cholesterol Vitamin B12 Folate TSH Urine Color Urine Appearance Urine pH Ur Specific [place] Urine Protein Urine Glucose (UA) Urine Ketones Urine Blood Urine Nitrite Ur Leukocyte Esterase Urine RBC Urine WBC Ur Squamous Epith Cells Urine Bacteria Hyaline Casts Urine Opiates Screen Ur Buprenorphine Scrn Ur Oxycodone Screen Urine Methadone Screen Urine Fentanyl Screen Ur Barbiturates Screen Ur Phencyclidine Scrn Ur Amphetamines Screen U Benzodiazepines Scrn Urine Cocaine Screen U Marijuana (THC) Screen Ethyl Alcohol 04/29/24 05/06/24 05/13/24 08:53 08:22 08:34 WBC RBC Hgb Hct MCV MCH MCHC RDW Plt Count MPV Immature Gran % (Auto) Neut % (Auto) Lymph % (Auto) [place] % (Auto) Eos % (Auto) Baso % (Auto) Lymph # (Auto) [place] # (Auto) Eos # (Auto) Baso # (Auto) Abs Immat Gran (auto) Absolute Neuts (auto) 6.0 3.7 4.6 Absolute Nucleated RBC Nucleated RBC % (auto) Sodium Potassium Chloride Carbon Dioxide Anion Gap BUN Creatinine Estim Creat Clear Calc Estimated GFR POC Glucose Random Glucose Fasting Glucose Estimat Average Glucose Hemoglobin A1c % Calcium Magnesium Total Bilirubin AST ALT Alkaline Phosphatase Total Protein Albumin Triglycerides Cholesterol LDL Cholesterol, Calc HDL Cholesterol Vitamin B12 Folate TSH Urine Color Urine Appearance Urine pH Ur Specific [place] Urine Protein Urine Glucose (UA) Urine Ketones Urine Blood Urine Nitrite Ur Leukocyte Esterase Urine RBC Urine WBC Ur Squamous Epith Cells Urine Bacteria Hyaline Casts Urine Opiates Screen Ur Buprenorphine Scrn Ur Oxycodone Screen Urine Methadone Screen Urine Fentanyl Screen Ur Barbiturates Screen Ur Phencyclidine Scrn Ur Amphetamines Screen U Benzodiazepines Scrn Urine Cocaine Screen U Marijuana (THC) Screen Ethyl Alcohol 05/20/24 05/27/24 06/03/24 10:23 10:43 07:30 WBC RBC Hgb Hct MCV MCH MCHC RDW Plt Count MPV Immature Gran % (Auto) Neut % (Auto) Lymph % (Auto) [place] % (Auto) Eos % (Auto) Baso % (Auto) Lymph # (Auto) [place] # (Auto) Eos # (Auto) Baso # (Auto) Abs Immat Gran (auto) Absolute Neuts (auto) 5.4 8.1 3.8 Absolute Nucleated RBC Nucleated RBC % (auto) Sodium Potassium Chloride Carbon Dioxide Anion Gap BUN Creatinine Estim Creat Clear Calc Estimated GFR POC Glucose Random Glucose Fasting Glucose Estimat Average Glucose Hemoglobin A1c % Calcium Magnesium Total Bilirubin AST ALT Alkaline Phosphatase Total Protein Albumin Triglycerides Cholesterol LDL Cholesterol, Calc HDL Cholesterol Vitamin B12 Folate TSH Urine Color Urine Appearance Urine pH Ur Specific [place] Urine Protein Urine Glucose (UA) Urine Ketones Urine Blood Urine Nitrite Ur Leukocyte Esterase Urine RBC Urine WBC Ur Squamous Epith Cells Urine Bacteria Hyaline Casts Urine Opiates Screen Ur Buprenorphine Scrn Ur Oxycodone Screen Urine Methadone Screen Urine Fentanyl Screen Ur Barbiturates Screen Ur Phencyclidine Scrn Ur Amphetamines Screen U Benzodiazepines Scrn Urine Cocaine Screen U Marijuana (THC) Screen Ethyl Alcohol 06/10/24 07:31 WBC RBC Hgb Hct MCV MCH MCHC RDW Plt Count MPV Immature Gran % (Auto) Neut % (Auto) Lymph % (Auto) [place] % (Auto) Eos % (Auto) Baso % (Auto) Lymph # (Auto) [place] # (Auto) Eos # (Auto) Baso # (Auto) Abs Immat Gran (auto) Absolute Neuts (auto) 4.8 Absolute Nucleated RBC Nucleated RBC % (auto) Sodium Potassium Chloride Carbon Dioxide Anion Gap BUN Creatinine Estim Creat Clear Calc Estimated GFR POC Glucose Random Glucose Fasting Glucose Estimat Average Glucose Hemoglobin A1c % Calcium Magnesium Total Bilirubin AST ALT Alkaline Phosphatase Total Protein Albumin Triglycerides Cholesterol LDL Cholesterol, Calc HDL Cholesterol Vitamin B12 Folate TSH Urine Color Urine Appearance Urine pH Ur Specific [place] Urine Protein Urine Glucose (UA) Urine Ketones Urine Blood Urine Nitrite Ur Leukocyte Esterase Urine RBC Urine WBC Ur Squamous Epith Cells Urine Bacteria Hyaline Casts Urine Opiates Screen Ur Buprenorphine Scrn Ur Oxycodone Screen Urine Methadone Screen Urine Fentanyl Screen Ur Barbiturates Screen Ur Phencyclidine Scrn Ur Amphetamines Screen U Benzodiazepines Scrn Urine Cocaine Screen U Marijuana (THC) Screen Ethyl Alcohol Airway Mallampati Class: III (Small mouth) TM Dist: >3cm Neck ROM: Full Loose/Missing/Broken Teeth: Yes (Broken tooth top left. Many missing. Poor dentition. Denies loose teeth) Heart: RRR Lungs: CTAB Assessment and Plan Assessment Anesthesia Assessment: Anesthesia Plan Discussed and Chart Reviewed Final Anesthetic Review Family History of Problems with Anesthesia: No History of Problems with Anesthesia: No NPO: Yes ASA Class: III Final Preanesthetic Review: No Changes in Pt Med Stat, Meds/Allgs Chart Reviewed, Consent Obtained/Reviewed and Anes Risks/Benef Reviewed Patient Risk: Intermediate Procedure Risk: Intermediate Assessment/Block/Sedation in SS: Assess/Block/Sedation-SS Anesthetic Plan Anesthetic Plan: GA Disposition: Standard PACU
--- NOTE | 2024-06-10 13:30 | P.PNPSI_ITS ---
Subjective Subjective Date of Service: 06/10/24 Reason For Visit: Psychosis Subjective Notes: Conditional Voluntary Healthcare Proxy: Yes Interim History: The nursing staff reported that she was been fully compliant with medications, with brighter affect. No side effects with ECT. ECT scheduled for today. On interview, she reports doing well. Mental Status Exam Mental Status Exam Patient Appearance: Well Grooomed and Appropriate Patient Orientation: Person and Situation Level of Consciousness: Awake and Appropriate Patient Behavior: Guarded and Passive Mood Description: Withdrawn Affect Description: Calm Patient Cognition Impaired: Yes Ability to Follow Directions: Good Speech Pattern: Clear Hallucinations: Auditory Delusions: Paranoid Ideation Thought Process: Distracted and Slowed Thinking Thought Content: positive for [place] and positive for Poverty of Content Judgement: Fair Diagnostics Vital Signs (24Hr): Vital Signs - 24 hr 06/09/24 20:00 06/10/24 08:49 06/10/24 12:50 Temperature 97.6 F 98.2 F 97.9 F Pulse Rate 79 73 69 Respiratory Rate 16 15 16 Blood Pressure 119/72 120/79 127/84 Pulse Oximetry 97 97 96 Oxygen Delivery Method Room Air Room Air Nasal Cannula Oxygen Flow Rate 2 BMI result Body Mass Index 27.6 Labs 04/05/24 15:38 04/05/24 15:38 Labs: Laboratory Results - last 48 hr 06/10/24 07:31 Absolute Neuts (auto) 4.8 Imaging Radiology Impressions: ITS Impressions Head CT 03/18/24 09:42 IMPRESSION: 1. No evidence of acute intracranial hemorrhage or edematous territorial infarction. 2. Mild to moderate underlying microangiopathy. 3. Arachnoid cyst in the right middle cranial fossa. Electronically signed by: Mino Arriaga DO 03/18/2024 06:26 PM EST RP Head CT 03/19/24 01:36 IMPRESSION: 1. Left frontal scalp soft tissue swelling. 2. No acute intracranial process seen. 3. Stable right middle cranial fossa arachnoid cyst. Electronically signed by: Andreas Olsen MD 03/19/2024 02:08 AM EST RP Head CT 04/05/24 16:20 IMPRESSION: 1. No acute intracranial hemorrhage or mass effect. 2. Stable right middle cranial fossa arachnoid cyst. Electronically signed by: Getachew Arana MD 04/05/2024 05:15 PM EST RP KUB X-Ray 04/16/24 13:57 IMPRESSION: Nonobstructive bowel gas pattern. Large colonic and rectal fecal material. Electronically signed by: Chencho Ugalde MD 04/16/2024 02:13 PM EST RP Medications Medications Current Medications Acetaminophen (Acetaminophen 325 Mg Tablet) 650 mg PO BID PRN PRN Reason: Headache/Pain Mild Scale (1-3) Acetaminophen (Acetaminophen 325 Mg Tablet) 650 mg PO BID [facility] Last Admin: 06/09/24 21:25 Dose: 650 mg Al Hydroxide/Mg Hydroxide (Magnesium Hydrox/Alum Hydrox 30 Ml Oral.Susp) 30 ml PO Q6H PRN PRN Reason: Heartburn/Nausea Clozapine (Clozapine 100 Mg Tablet) 100 mg PO DAILY [facility] Last Admin: 06/09/24 08:28 Dose: 100 mg Clozapine (Clozapine 100 Mg Tablet) 100 mg PO DAILY@1230 [facility] Last Admin: 06/09/24 12:28 Dose: 100 mg Clozapine (Clozapine 100 Mg Tablet) 200 mg PO BEDTIME [facility] Last Admin: 06/09/24 21:24 Dose: 200 mg Famotidine (Famotidine 20 Mg Tablet) 20 mg PO DAILY [facility] Last Admin: 06/09/24 08:28 Dose: 20 mg Hydrocortisone (Hydrocortisone 2.5 % Rectal Cr 30 Gm Tube) 1 appl [place] DAILY [facility] Last Admin: 06/09/24 08:41 Dose: Not Given Hydroxyzine HCl (Hydroxyzine Hcl 25 Mg Tablet) 25 mg PO Q6H PRN PRN Reason: Anxiety Last Admin: 05/31/24 21:04 Dose: 25 mg Lactated Ringer's (Lr) 1,000 mls @ 50 mls/hr IVCONT .Q20H [facility] Lamotrigine (Lamotrigine 25 Mg Tablet) 50 mg PO BID [facility] Last Admin: 06/09/24 21:24 Dose: 50 mg Levothyroxine Sodium (Levothyroxine Sodium 75 Mcg Tablet) 75 mcg PO DAILY@0600 [facility] Last Admin: 06/10/24 06:37 Dose: 75 mcg Magnesium Hydroxide (Milk Of Magnesia 30 Ml Oral.Susp) 30 ml PO BID PRN PRN Reason: Constipation Last Admin: 05/30/24 17:29 Dose: 30 ml Mirtazapine (Mirtazapine 7.5 Mg Tablet) 7.5 mg PO BEDTIME [facility] Last Admin: 06/09/24 21:23 Dose: 7.5 mg Nicotine Polacrilex (Nicotine Polacrilex 2 Mg Gum) 2 mg BUCCAL Q2H PRN PRN Reason: Nicotine Cravings Olanzapine (Olanzapine 5 Mg Tablet) 5 mg PO Q4H PRN PRN Reason: Psychosis Last Admin: 05/09/24 10:24 Dose: 5 mg Polyethylene Glycol (Polyethylene Glycol 3350 17 Gm Powd.Pack) 17 gm PO DAILY PRN PRN Reason: Constipation Last Admin: 04/18/24 00:24 Dose: 17 gm Polyethylene Glycol (Polyethylene Glycol 3350 17 Gm Powd.Pack) 17 gm PO DAILY [facility] Last Admin: 06/09/24 08:29 Dose: 17 gm Risperidone (Risperidone 3 Mg Tablet) 6 mg PO BID [facility] Last Admin: 06/09/24 21:23 Dose: 6 mg Senna (Sennosides 8.6 Mg Tablet) 8.6 mg PO DAILY [facility] Last Admin: 06/09/24 08:30 Dose: 8.6 mg Trazodone HCl (Trazodone Hcl 50 Mg Tablet) 50 mg PO BEDTIME MRX1 PRN PRN Reason: Insomnia Last Admin: 06/02/24 20:37 Dose: 50 mg Allergies Allergies Allergy/AdvReac Type Severity Reaction Status Date / Time trifluoperazine Allergy Unknown Verified 03/11/24 14:16 [From Stelazine] Assessment & Plan Assessment & Plan (1) Schizophrenia: Status: Acute Code(s): F20.9 - Schizophrenia, unspecified (2) Diverticulosis: Status: Chronic Code(s): K57.90 - Diverticulosis of intestine, part unspecified, without perforation or abscess without bleeding Plan Patient is a 73-year-old female with a PMH significant for HTN, post op VTE 2 years ago, hypothyroidism, and mood disorder who was admitted to [facility] after eloping from [facility] and walking into traffic on purpose. Patient apparently believes a friend is writing a horrible story about and does not want to live after everyone reads the book as she believes everyone will hate her. Hospitalist consult for ECT risk stratification. ECT risk stratification Previously underwent ECT without complications in 1998 Currently no significant medical complaints or PMH EKG from 7 days prior at time of admission negative for ischemia RCRI 0 points, class I risk Will repeat EKG before completing risk stratification Plan 1. Continue Risperdal 6 mg p.o. b.i.d.. 2. Clozaril has been changed to 100 mg p.o. b.i.d. and 200 mg p.o. q.h.s. to avoid over-sedation. 3. So far her psychosis had become stable. 4. ECT was considered and on May 13 the patient request this procedure since she reported she is feeling worse. We will try to schedule her ECT as soon as possible. 5. Referral for [facility]SS team. They assessed her on May 05 and stated that she is not at baseline but it seems that this is now her new baseline. So far she had not been assaultive for grossly disorganized after the medication changes and increase of Clozaril. 6. Family meeting next week to address the possibility of ECT and disposition. On May 13 her son who is the affirmed healthcare proxy signed the patient in to ECT. 7. Zyprexa 5 mg p.o. q.6 hours PRNs hallucinations. 8. The patient is not at baseline at this moment we will continue with ECT. 9. Start Remeron 7.5 p.o. q.h.s. to target depression 10. Family meeting for discharge planning Reason for continued inpatient stay Substantial Risk for: inability to function, rapid decompensation and med/psych decompensation Time Spent With Patient Time: Total time managing care of this patient today __20__ minutes.
--- NOTE | 2024-06-10 14:20 | HO.ECTPROC ---
ECT Procedure Note Diagnosis/Treatment Date of Service: 06/10/24 Diagnosis: Schizoaffective Disorder Previous ECT Date: 06/05/24 Current Treatment Number: 11 Treatment: Series Interval Clinical Notes: The patient reported better mood, no changes on her psychosis. NO side effects with previous ECT. ECT done as usual, no complications, woke up well. Time: Total time managing care of this patient today ____ minutes. ECT Settings Device: THYMATRON DGx Electrode Placement: Bifrontal Program/Pulse Width: 0.50 Energy Percent: 100 Seizure Duration By EEG (in seconds): 17 By Motor Observation (in seconds): 0 Medications Administration General Anesthetic: Etomidate (12) Muscle Relaxant: Succinylcholine (80) Ancillary Medications Anti-emetics: Zofran - Pre ECT Airway Management Airway Management: Bag Mask Ventilation Treatment Recommendations No Changes Recommended: No change Pt Tolerated Procedure w/o Issue: Yes
--- NOTE | 2024-06-10 15:37 | PC.NURSE ---
This keno writer/runner send a text to Dr Cerda via [employer]. He stated that this patient should be given all morning medications at this point, which is post ECT.
[2024-06-10] MEDS: Acetaminophen 325 MG TABLET 650 MG PO ×2 (15:38→19:54)
[2024-06-10] MEDS: cloZAPine 100 MG TABLET PO (15:38)
[2024-06-10] MEDS: Famotidine 20 MG TABLET PO (15:38)
[2024-06-10] MEDS: lamoTRIgine 25 MG TABLET 50 MG PO ×2 (15:38→19:55)
[2024-06-10] MEDS: polyethylene glycoL 3350 17 GM POWD.PACK PO (15:39)
[2024-06-10] MEDS: risperiDONE 3 MG TABLET 6 MG PO ×2 (15:39→19:55)
[2024-06-10] MEDS: Sennosides 8.6 MG TABLET PO (15:40)
[2024-06-10] MEDS: Mirtazapine 7.5 MG TABLET PO (19:54)
[2024-06-10] MEDS: cloZAPine 100 MG TABLET 200 MG PO (19:55)
[2024-06-11] MEDS: Levothyroxine Sodium 75 MCG TABLET PO (06:18)
[2024-06-11] MEDS: Acetaminophen 325 MG TABLET 650 MG PO ×2 (09:27→20:43)
[2024-06-11 09:39] VITALS: BP 111/63; PULSE 77; RESP 20; TEMP 36.6; O2SAT 97
[2024-06-11] MEDS: risperiDONE 3 MG TABLET 6 MG PO ×2 (09:40→20:41)
[2024-06-11] MEDS: cloZAPine 100 MG TABLET PO ×2 (09:41→12:32)
[2024-06-11] MEDS: lamoTRIgine 25 MG TABLET 50 MG PO ×2 (09:41→20:42)
[2024-06-11] MEDS: Famotidine 20 MG TABLET PO (09:42)
[2024-06-11] MEDS: polyethylene glycoL 3350 17 GM POWD.PACK PO (09:42)
[2024-06-11] MEDS: Sennosides 8.6 MG TABLET PO (09:43)
[2024-06-11] MEDS: Milk of Magnesia 30 ML ORAL.SUSP PO (12:34)
--- NOTE | 2024-06-11 16:19 | HO.PSYCHPN ---
Subjective Subjective Date of Service: 06/11/24 Reason For Visit: Psychosis Subjective Notes: Conditional Voluntary Healthcare Proxy: Yes Interim History: The nursing staff reported the patient had been pleasant, cooperative with flat affect, she reports headaches after ECT. On interview the patient denies new symptoms, waiting for ECT for tomorrow. Her affect is much better. Mental Status Exam Mental Status Exam Patient Appearance: Appropriate Patient Orientation: Person and Situation Level of Consciousness: Awake and Appropriate Patient Behavior: Guarded and Passive Mood Description: Withdrawn Affect Description: Constricted Patient Cognition Impaired: Yes Ability to Follow Directions: Good Speech Pattern: Clear Hallucinations: Auditory Delusions: Paranoid Ideation and Ideas of Reference Thought Process: Distracted and Slowed Thinking Thought Content: positive for Ages [place] and positive for Poverty of Content Judgement: Fair Diagnostics Vital Signs (24Hr): Vital Signs - 24 hr 06/10/24 20:00 06/11/24 09:39 Temperature 97 F 97.8 F Pulse Rate 83 77 Respiratory Rate 16 20 Blood Pressure 117/62 111/63 Pulse Oximetry 97 97 Oxygen Delivery Method Room Air Room Air BMI result Body Mass Index 27.6 Labs 04/05/24 15:38 04/05/24 15:38 Labs: Laboratory Results - last 48 hr 06/10/24 07:31 Absolute Neuts (auto) 4.8 Imaging Radiology Impressions: ITS Impressions Head CT 03/18/24 09:42 IMPRESSION: 1. No evidence of acute intracranial hemorrhage or edematous territorial infarction. 2. Mild to moderate underlying microangiopathy. 3. Arachnoid cyst in the right middle cranial fossa. Electronically signed by: Mino Arriaga DO 03/18/2024 06:26 PM EST RP Head CT 03/19/24 01:36 IMPRESSION: 1. Left frontal scalp soft tissue swelling. 2. No acute intracranial process seen. 3. Stable right middle cranial fossa arachnoid cyst. Electronically signed by: Andreas Olsen MD 03/19/2024 02:08 AM EST RP Head CT 04/05/24 16:20 IMPRESSION: 1. No acute intracranial hemorrhage or mass effect. 2. Stable right middle cranial fossa arachnoid cyst. Electronically signed by: Getachew Arana MD 04/05/2024 05:15 PM EST RP KUB X-Ray 04/16/24 13:57 IMPRESSION: Nonobstructive bowel gas pattern. Large colonic and rectal fecal material. Electronically signed by: Chencho Ugalde MD 04/16/2024 02:13 PM [facility] Medications Medications Current Medications Acetaminophen (Acetaminophen 325 Mg Tablet) 650 mg PO BID PRN PRN Reason: Headache/Pain Mild Scale (1-3) Acetaminophen (Acetaminophen 325 Mg Tablet) 650 mg PO BID [facility] Last Admin: 06/11/24 09:27 Dose: 650 mg Al Hydroxide/Mg Hydroxide (Magnesium Hydrox/Alum Hydrox 30 Ml Oral.Susp) 30 ml PO Q6H PRN PRN Reason: Heartburn/Nausea Clozapine (Clozapine 100 Mg Tablet) 100 mg PO DAILY [facility] Last Admin: 06/11/24 09:41 Dose: 100 mg Clozapine (Clozapine 100 Mg Tablet) 100 mg PO DAILY@1230 [facility] Last Admin: 06/11/24 12:32 Dose: 100 mg Clozapine (Clozapine 100 Mg Tablet) 200 mg PO BEDTIME [facility] Last Admin: 06/10/24 19:55 Dose: 200 mg Famotidine (Famotidine 20 Mg Tablet) 20 mg PO DAILY [facility] Last Admin: 06/11/24 09:42 Dose: 20 mg Hydrocortisone (Hydrocortisone 2.5 % Rectal Cr 30 Gm Tube) 1 appl [place] DAILY [facility] Last Admin: 06/11/24 09:42 Dose: Not Given Hydroxyzine HCl (Hydroxyzine Hcl 25 Mg Tablet) 25 mg PO Q6H PRN PRN Reason: Anxiety Last Admin: 05/31/24 21:04 Dose: 25 mg Lamotrigine (Lamotrigine 25 Mg Tablet) 50 mg PO BID [facility] Last Admin: 06/11/24 09:41 Dose: 50 mg Levothyroxine Sodium (Levothyroxine Sodium 75 Mcg Tablet) 75 mcg PO DAILY@0600 [facility] Last Admin: 06/11/24 06:18 Dose: 75 mcg Magnesium Hydroxide (Milk Of Magnesia 30 Ml Oral.Susp) 30 ml PO BID PRN PRN Reason: Constipation Last Admin: 06/11/24 12:34 Dose: 30 ml Mirtazapine (Mirtazapine 7.5 Mg Tablet) 7.5 mg PO BEDTIME [facility] Last Admin: 06/10/24 19:54 Dose: 7.5 mg Nicotine Polacrilex (Nicotine Polacrilex 2 Mg Gum) 2 mg BUCCAL Q2H PRN PRN Reason: Nicotine Cravings Olanzapine (Olanzapine 5 Mg Tablet) 5 mg PO Q4H PRN PRN Reason: Psychosis Last Admin: 05/09/24 10:24 Dose: 5 mg Polyethylene Glycol (Polyethylene Glycol 3350 17 Gm Powd.Pack) 17 gm PO DAILY PRN PRN Reason: Constipation Last Admin: 04/18/24 00:24 Dose: 17 gm Polyethylene Glycol (Polyethylene Glycol 3350 17 Gm Powd.Pack) 17 gm PO DAILY [facility] Last Admin: 06/11/24 09:42 Dose: 17 gm Risperidone (Risperidone 3 Mg Tablet) 6 mg PO BID [facility] Last Admin: 06/11/24 09:40 Dose: 6 mg Senna (Sennosides 8.6 Mg Tablet) 8.6 mg PO DAILY [facility] Last Admin: 06/11/24 09:43 Dose: 8.6 mg Trazodone HCl (Trazodone Hcl 50 Mg Tablet) 50 mg PO BEDTIME MRX1 PRN PRN Reason: Insomnia Last Admin: 06/02/24 20:37 Dose: 50 mg Allergies Allergies Allergy/AdvReac Type Severity Reaction Status Date / Time trifluoperazine Allergy Unknown Verified 03/11/24 14:16 [From Stelazine] Assessment & Plan Assessment & Plan (1) Schizophrenia: Status: Acute Code(s): F20.9 - Schizophrenia, unspecified (2) Diverticulosis: Status: Chronic Code(s): K57.90 - Diverticulosis of intestine, part unspecified, without perforation or abscess without bleeding Plan Patient is a 73-year-old female with a PMH significant for HTN, post op VTE 2 years ago, hypothyroidism, and mood disorder who was admitted to [facility] after eloping from [facility] and walking into traffic on purpose. Patient apparently believes a friend is writing a horrible story about and does not want to live after everyone reads the book as she believes everyone will hate her. Hospitalist consult for ECT risk stratification. ECT risk stratification Previously underwent ECT without complications in 1998 Currently no significant medical complaints or PMH EKG from 7 days prior at time of admission negative for ischemia RCRI 0 points, class I risk Will repeat EKG before completing risk stratification Plan 1. Continue Risperdal 6 mg p.o. b.i.d.. 2. Clozaril has been changed to 100 mg p.o. b.i.d. and 200 mg p.o. q.h.s. to avoid over-sedation. 3. So far her psychosis had become stable. 4. ECT was considered and on May 13 the patient request this procedure since she reported she is feeling worse. We will try to schedule her ECT as soon as possible. 5. Referral for [facility]SS team. They assessed her on May 05 and stated that she is not at baseline but it seems that this is now her new baseline. So far she had not been assaultive for grossly disorganized after the medication changes and increase of Clozaril. 6. Family meeting next week to address the possibility of ECT and disposition. On May 13 her son who is the affirmed healthcare proxy signed the patient in to ECT. 7. Zyprexa 5 mg p.o. q.6 hours PRNs hallucinations. 8. The patient is not at baseline at this moment we will continue with ECT. 9. Start Remeron 7.5 p.o. q.h.s. to target depression 10. Family meeting for discharge planning Reason for continued inpatient stay Substantial Risk for: inability to function, rapid decompensation and med/psych decompensation Time Spent With Patient Time: Total time managing care of this patient today __20__ minutes.
--- NOTE | 2024-06-11 19:00 | P.CONHOSP_ITS ---
History of Present Illness Data of Consult Service Date: 06/11/24 Primary Care Provider: Callum Field MD HPI Reason for consult: Medical clearance for SNF Pt is a 74-year-old female with a PMH significant for HTN, post-op VTE 2 years ago not on anticoagulation, hypothyroidism, CKD3, and mood disorder who was originally admitted to [facility] after eloping from [facility] and walking into traffic on purpose. Hospitalist consult for discharge physical. Pt seen and evaluated in her room where she is resting comfortably in bed. Pt complains of chronic upper and lower back pain, which she reports is at baseline. Also notes right foot neuropathy that she has experienced ?forever?, at baseline. Pt otherwise has no acute or chronic medical complaints. Denies nausea, vomiting, abdominal pain. No fever, chills. Denies diarrhea. No SOB or difficulty breathing. Denies chest pain/pressure palpitations. No headache or acute vision changes. Labs reviewed, showing normocytic anemia of 10.0/30.1 (around baseline). No significant electrolyte abnormalities. Renal function with creatinine 1.14, improved from prior. POC WNL. Review of Systems 2 Review of Systems: Negative except for that which is stated in the HPI. [facility] Medical History Diverticulosis Schizophrenia CKD (chronic kidney disease) Hyperlipidemia Type 2 diabetes mellitus Hypothyroidism HTN (hypertension) GERD (gastroesophageal reflux disease) Mood disorder Functional capacity: independent ambulation Social History Household Members: None Household Members Other:: Lives at [facility] Housing: Assisted Living Facility Do you presently have visiting nurse or other home services: Yes Alcohol intake: current Patient Tobacco Use Status: Former Tobacco user Tobacco use type: Cigarette Cigarette Packs Per Day: 3 Cigarettes Per Day: 60.0 Years Smoked: 16 Second Hand Smoke Exposure: No service: No Sexual orientation: Straight/Heterosexual Meds Allergies Allergy/AdvReac Type Severity Reaction Status Date / Time trifluoperazine Allergy Unknown Verified 03/11/24 14:16 [From Stelazine] Active Medications: Current Medications Acetaminophen (Acetaminophen 325 Mg Tablet) 650 mg PO BID PRN PRN Reason: Headache/Pain Mild Scale (1-3) Acetaminophen (Acetaminophen 325 Mg Tablet) 650 mg PO BID [facility] Last Admin: 06/11/24 09:27 Dose: 650 mg Al Hydroxide/Mg Hydroxide (Magnesium Hydrox/Alum Hydrox 30 Ml Oral.Susp) 30 ml PO Q6H PRN PRN Reason: Heartburn/Nausea Clozapine (Clozapine 100 Mg Tablet) 100 mg PO DAILY [facility] Last Admin: 06/11/24 09:41 Dose: 100 mg Clozapine (Clozapine 100 Mg Tablet) 100 mg PO DAILY@1230 [facility] Last Admin: 06/11/24 12:32 Dose: 100 mg Clozapine (Clozapine 100 Mg Tablet) 200 mg PO BEDTIME [facility] Last Admin: 06/10/24 19:55 Dose: 200 mg Famotidine (Famotidine 20 Mg Tablet) 20 mg PO DAILY [facility] Last Admin: 06/11/24 09:42 Dose: 20 mg Hydrocortisone (Hydrocortisone 2.5 % Rectal Cr 30 Gm Tube) 1 appl [place] DAILY [facility] Last Admin: 06/11/24 09:42 Dose: Not Given Hydroxyzine HCl (Hydroxyzine Hcl 25 Mg Tablet) 25 mg PO Q6H PRN PRN Reason: Anxiety Last Admin: 05/31/24 21:04 Dose: 25 mg Lamotrigine (Lamotrigine 25 Mg Tablet) 50 mg PO BID [facility] Last Admin: 06/11/24 09:41 Dose: 50 mg Levothyroxine Sodium (Levothyroxine Sodium 75 Mcg Tablet) 75 mcg PO DAILY@0600 [facility] Last Admin: 06/11/24 06:18 Dose: 75 mcg Magnesium Hydroxide (Milk Of Magnesia 30 Ml Oral.Susp) 30 ml PO BID PRN PRN Reason: Constipation Last Admin: 06/11/24 12:34 Dose: 30 ml Mirtazapine (Mirtazapine 7.5 Mg Tablet) 7.5 mg PO BEDTIME [facility] Last Admin: 06/10/24 19:54 Dose: 7.5 mg Nicotine Polacrilex (Nicotine Polacrilex 2 Mg Gum) 2 mg BUCCAL Q2H PRN PRN Reason: Nicotine Cravings Olanzapine (Olanzapine 5 Mg Tablet) 5 mg PO Q4H PRN PRN Reason: Psychosis Last Admin: 05/09/24 10:24 Dose: 5 mg Polyethylene Glycol (Polyethylene Glycol 3350 17 Gm Powd.Pack) 17 gm PO DAILY PRN PRN Reason: Constipation Last Admin: 04/18/24 00:24 Dose: 17 gm Polyethylene Glycol (Polyethylene Glycol 3350 17 Gm Powd.Pack) 17 gm PO DAILY [facility] Last Admin: 06/11/24 09:42 Dose: 17 gm Risperidone (Risperidone 3 Mg Tablet) 6 mg PO BID [facility] Last Admin: 06/11/24 09:40 Dose: 6 mg Senna (Sennosides 8.6 Mg Tablet) 8.6 mg PO DAILY [facility] Last Admin: 06/11/24 09:43 Dose: 8.6 mg Trazodone HCl (Trazodone Hcl 50 Mg Tablet) 50 mg PO BEDTIME MRX1 PRN PRN Reason: Insomnia Last Admin: 06/02/24 20:37 Dose: 50 mg Home Medications ?Medication ?Instructions ?Recorded ?Confirmed ?Last Taken ?Type clozapine 100 mg tablet 100 mg PO DAILY 03/11/24 03/11/24 03/11/24 History clozapine 100 mg tablet 300 mg PO BEDTIME 03/11/24 03/11/24 03/10/24 History famotidine 20 mg tablet 20 mg PO DAILY 03/11/24 03/11/24 03/11/24 History lamotrigine 25 mg tablet 50 mg PO BID 03/11/24 03/11/24 03/11/24 History levothyroxine 75 mcg tablet 75 mcg PO DAILY 03/11/24 03/11/24 03/11/24 History risperidone 2 mg tablet 6 mg PO BID 03/11/24 03/11/24 03/11/24 History sennosides 8.6 mg tablet (senna) 8.6 mg PO DAILY PRN Constipation 03/11/24 03/11/24 Unknown History Physical Exam 2 Vital Signs and Narrative: Vital Signs: Last Vital Signs Temp 97.8 F 06/11/24 09:39 Pulse 77 06/11/24 09:39 Resp 20 06/11/24 09:39 BP 111/63 06/11/24 09:39 Pulse Ox 97 06/11/24 09:39 O2 Del Method Room Air 06/11/24 09:39 O2 Flow Rate 2 06/10/24 14:38 BMI result Body Mass Index 27.6 General: AOx3, no acute distress Resp: CTA bilaterally CVS: S1, S2, RRR GI: +BS, NT, no distention Skin: Warm, dry Neuro: Cranial nerves II-XII grossly intact bilaterally. Motor grossly intact bilaterally Extremities: No edema Psych: Calm, cooperative Results Labs 06/11/24 19:58 06/11/24 19:58 Assessment and Plan (1) Routine history and physical examination of adult: Status: Acute Plan Pt is a 74-year-old female with a PMH significant for HTN, post-op VTE 2 years ago not on anticoagulation, hypothyroidism, CKD3, and mood disorder who was originally admitted to [facility] after eloping from [facility] and walking into traffic on purpose. Hospitalist consult for discharge physical. Discharge physical Pt with benign physical examination and labs, no significant acute medical complaints No indication for additional medical workup or treatment There are no medical contraindications for discharge of pt or admission of pt to SNF Hypothyroidism Continue levothyroxine CKD 3 Creatinine 1.14 Stable, at baseline GERD Continue famotidine Mood disorder Continue mood stabilizers Plan as per Psychiatry Thank you for allowing us to participate in the care of this patient. Signing off at this time. Please re-consult if any acute complaints or issues arise.
[2024-06-11 20:00] VITALS: BP 122/68; PULSE 89; RESP 16; TEMP 36.4; O2SAT 98
[2024-06-11 20:15] LABS: Hematocrit 30.1 % (37.0-47.0); Mean Corpuscular HGB Conc 33.2 g/dl (31.0-35.0); Mean Corpuscular Hemoglobin 30.8 pg (27.0-33.0); Mean Corpuscular Volume 92.6 fL (80.0-98.0); Mean Platelet Volume 9.6 fL (9.4-12.3); Platelet Count 277 X10*3/uL (160-400); Red Blood Count 3.25 X10*6/uL (4.20-5.50); Red Cell Distribution Width 15.1 % (11.0-16.0)
[2024-06-11 20:25] LABS: Anion Gap 14 (12-20); Blood Urea Nitrogen 29 mg/dL (9-16); Carbon Dioxide 24 mmol/L (22-29); Chloride 107 mmol/L (96-108); Creatinine Clr Calc Pharmacy 46.2; Estimated Glomerular Filt Rate 47; Glucose Random 106 mg/dL (60-115); Potassium 4.7 mmol/L (3.3-5.1); Sodium 140 mmol/L (135-145)
[2024-06-11] MEDS: cloZAPine 100 MG TABLET 200 MG PO (20:42)
[2024-06-11] MEDS: Mirtazapine 7.5 MG TABLET PO (20:42)
[2024-06-12 08:18] VITALS: BP 113/69; PULSE 85; RESP 16; TEMP 36.2; O2SAT 96
--- NOTE | 2024-06-12 09:50 | HO.ANESPROP2 ---
HPI - Anesthesia Eval Consult details Narrative: 74 yo female patient for ECT PMFSH Active Problems Active Problems: All Active Problems Routine history and physical examination of adult (Acute) Arachnoid cyst (Acute) Diverticulosis (Chronic) Pre-op evaluation (Acute) Schizophrenia (Acute) Suicidal ideation (Acute) Past Medical History Medical History Diverticulosis Schizophrenia CKD (chronic kidney disease) Hyperlipidemia Type 2 diabetes mellitus Hypothyroidism HTN (hypertension) GERD (gastroesophageal reflux disease) Mood disorder Functional capacity: independent ambulation Family History Family history of problems with anesthesia: No Surgical History History of Problems with Anesthesia: No Social History Social History Household Members: None Household Members Other:: Lives at [facility] Housing: Assisted Living Facility Do you presently have visiting nurse or other home services: Yes Alcohol intake: current Patient Tobacco Use Status: Former Tobacco user Tobacco use type: Cigarette Cigarette Packs Per Day: 3 Cigarettes Per Day: 60.0 Years Smoked: 16 Second Hand Smoke Exposure: No service: No Sexual orientation: Straight/Heterosexual Meds Allergies Allergy/AdvReac Type Severity Reaction Status Date / Time trifluoperazine Allergy Unknown Verified 03/11/24 14:16 [From Stelazine] Active Medications: Current Medications Acetaminophen (Acetaminophen 325 Mg Tablet) 650 mg PO BID PRN PRN Reason: Headache/Pain Mild Scale (1-3) Acetaminophen (Acetaminophen 325 Mg Tablet) 650 mg PO BID [facility] Last Admin: 06/11/24 20:43 Dose: 650 mg Al Hydroxide/Mg Hydroxide (Magnesium Hydrox/Alum Hydrox 30 Ml Oral.Susp) 30 ml PO Q6H PRN PRN Reason: Heartburn/Nausea Clozapine (Clozapine 100 Mg Tablet) 100 mg PO DAILY [facility] Last Admin: 06/11/24 09:41 Dose: 100 mg Clozapine (Clozapine 100 Mg Tablet) 100 mg PO DAILY@1230 YURY Last Admin: 06/11/24 12:32 Dose: 100 mg Clozapine (Clozapine 100 Mg Tablet) 200 mg PO BEDTIME [facility] Last Admin: 06/11/24 20:42 Dose: 200 mg Famotidine (Famotidine 20 Mg Tablet) 20 mg PO DAILY [facility] Last Admin: 06/11/24 09:42 Dose: 20 mg Hydrocortisone (Hydrocortisone 2.5 % Rectal Cr 30 Gm Tube) 1 appl WA DAILY [facility] Last Admin: 06/11/24 09:42 Dose: Not Given Hydroxyzine HCl (Hydroxyzine Hcl 25 Mg Tablet) 25 mg PO Q6H PRN PRN Reason: Anxiety Last Admin: 05/31/24 21:04 Dose: 25 mg Lactated Ringer's (Lr) 1,000 mls @ 50 mls/hr IVCONT .Q20H YURY Lamotrigine (Lamotrigine 25 Mg Tablet) 50 mg PO BID [facility] Last Admin: 06/11/24 20:42 Dose: 50 mg Levothyroxine Sodium (Levothyroxine Sodium 75 Mcg Tablet) 75 mcg PO DAILY@0600 [facility] Last Admin: 06/12/24 05:06 Dose: Not Given Magnesium Hydroxide (Milk Of Magnesia 30 Ml Oral.Susp) 30 ml PO BID PRN PRN Reason: Constipation Last Admin: 06/11/24 12:34 Dose: 30 ml Mirtazapine (Mirtazapine 7.5 Mg Tablet) 7.5 mg PO BEDTIME [facility] Last Admin: 06/11/24 20:42 Dose: 7.5 mg Nicotine Polacrilex (Nicotine Polacrilex 2 Mg Gum) 2 mg BUCCAL Q2H PRN PRN Reason: Nicotine Cravings Olanzapine (Olanzapine 5 Mg Tablet) 5 mg PO Q4H PRN PRN Reason: Psychosis Last Admin: 05/09/24 10:24 Dose: 5 mg Polyethylene Glycol (Polyethylene Glycol 3350 17 Gm Powd.Pack) 17 gm PO DAILY PRN PRN Reason: Constipation Last Admin: 04/18/24 00:24 Dose: 17 gm Polyethylene Glycol (Polyethylene Glycol 3350 17 Gm Powd.Pack) 17 gm PO DAILY [facility] Last Admin: 06/11/24 09:42 Dose: 17 gm Risperidone (Risperidone 3 Mg Tablet) 6 mg PO BID [facility] Last Admin: 06/11/24 20:41 Dose: 6 mg Senna (Sennosides 8.6 Mg Tablet) 8.6 mg PO DAILY [facility] Last Admin: 06/11/24 09:43 Dose: 8.6 mg Trazodone HCl (Trazodone Hcl 50 Mg Tablet) 50 mg PO BEDTIME MRX1 PRN PRN Reason: Insomnia Last Admin: 06/02/24 20:37 Dose: 50 mg Home Medications ?Medication ?Instructions ?Recorded ?Confirmed ?Last Taken ?Type clozapine 100 mg tablet 100 mg PO DAILY 03/11/24 03/11/24 03/11/24 History clozapine 100 mg tablet 300 mg PO BEDTIME 03/11/24 03/11/24 03/10/24 History famotidine 20 mg tablet 20 mg PO DAILY 03/11/24 03/11/24 03/11/24 History lamotrigine 25 mg tablet 50 mg PO BID 03/11/24 03/11/24 03/11/24 History levothyroxine 75 mcg tablet 75 mcg PO DAILY 03/11/24 03/11/24 03/11/24 History risperidone 2 mg tablet 6 mg PO BID 03/11/24 03/11/24 03/11/24 History sennosides 8.6 mg tablet (senna) 8.6 mg PO DAILY PRN Constipation 03/11/24 03/11/24 Unknown History Exam Height,Weight and Vital Signs: Height 5 ft 6 in Weight 77.564 kg Last Vital Signs Temp 97.1 F 06/12/24 08:18 Pulse 85 06/12/24 08:18 Resp 16 06/12/24 08:18 BP 113/69 06/12/24 08:18 Pulse Ox 96 06/12/24 08:18 O2 Del Method Room Air 06/12/24 08:18 O2 Flow Rate 2 06/10/24 14:38 Pertinent Lab Results Pertinent Lab Results: Laboratory Tests 03/11/24 03/11/24 03/12/24 11:07 13:25 13:15 WBC 7.8 RBC 3.77 L Hgb 11.6 L Hct 34.5 L MCV 91.5 MCH 30.8 MCHC 33.6 RDW 14.8 Plt Count 205 MPV 10.3 Immature Gran % (Auto) 0.4 Neut % (Auto) 80.2 H Lymph % (Auto) 9.8 L [place] % (Auto) 8.6 Eos % (Auto) 0.5 Baso % (Auto) 0.5 Lymph # (Auto) 0.8 L [place] # (Auto) 0.7 Eos # (Auto) 0.0 Baso # (Auto) 0.0 Abs Immat Gran (auto) 0.03 Absolute Neuts (auto) 6.2 Absolute Nucleated RBC 0.000 Nucleated RBC % (auto) 0.0 Sodium 141 Potassium 4.2 Chloride 107 Carbon Dioxide 24 Anion Gap 14 BUN 18 H Creatinine 1.47 H Estim Creat Clear Calc 36.2 Estimated GFR 35 POC Glucose 118 H Random Glucose 119 H Fasting Glucose Estimat Average Glucose Hemoglobin A1c % Calcium 9.8 Magnesium Total Bilirubin 0.3 AST 20 ALT 16 Alkaline Phosphatase 90 Total Protein 6.0 L Albumin 4.0 Triglycerides Cholesterol LDL Cholesterol, Calc HDL Cholesterol Vitamin B12 Folate TSH Urine Color Yellow Urine Appearance Clear Urine pH 6.5 Ur Specific [place] <= 1.005 Urine Protein Negative Urine Glucose (UA) Negative Urine Ketones Negative Urine Blood Negative Urine Nitrite Negative Ur Leukocyte Esterase Small (1+) H Urine RBC 0-2 Urine WBC 0-5 Ur Squamous Epith Cells 0-2 Urine Bacteria None Seen Hyaline Casts 0-2 Urine Opiates Screen Not Detected Ur Buprenorphine Scrn Not Detected Ur Oxycodone Screen Not Detected Urine Methadone Screen Not Detected Urine Fentanyl Screen Not Detected Ur Barbiturates Screen Not Detected Ur Phencyclidine Scrn Not Detected Ur Amphetamines Screen Not Detected U Benzodiazepines Scrn Not Detected Urine Cocaine Screen Not Detected U Marijuana (THC) Screen Not Detected Ethyl Alcohol < 10 03/13/24 03/18/24 03/25/24 08:18 07:57 08:12 WBC RBC Hgb Hct MCV MCH MCHC RDW Plt Count MPV Immature Gran % (Auto) Neut % (Auto) Lymph % (Auto) [place] % (Auto) Eos % (Auto) Baso % (Auto) Lymph # (Auto) [place] # (Auto) Eos # (Auto) Baso # (Auto) Abs Immat Gran (auto) Absolute Neuts (auto) 4.2 3.3 Absolute Nucleated RBC Nucleated RBC % (auto) Sodium 142 Potassium 4.0 Chloride 108 Carbon Dioxide 28 Anion Gap 10 L BUN 23 H Creatinine 1.46 H Estim Creat Clear Calc 36.5 Estimated GFR 35 POC Glucose Random Glucose Fasting Glucose 114 H Estimat Average Glucose 114 Hemoglobin A1c % 5.6 Calcium 9.8 Magnesium 2.3 Total Bilirubin 0.4 AST 16 ALT 10 Alkaline Phosphatase 85 Total Protein 5.8 L Albumin 4.0 Triglycerides 133 Cholesterol 218 H LDL Cholesterol, Calc 144 H HDL Cholesterol 48 Vitamin B12 443 Folate 10.9 TSH 3.25 Urine Color Urine Appearance Urine pH Ur Specific [place] Urine Protein Urine Glucose (UA) Urine Ketones Urine Blood Urine Nitrite Ur Leukocyte Esterase Urine RBC Urine WBC Ur Squamous Epith Cells Urine Bacteria Hyaline Casts Urine Opiates Screen Ur Buprenorphine Scrn Ur Oxycodone Screen Urine Methadone Screen Urine Fentanyl Screen Ur Barbiturates Screen Ur Phencyclidine Scrn Ur Amphetamines Screen U Benzodiazepines Scrn Urine Cocaine Screen U Marijuana (THC) Screen Ethyl Alcohol 04/03/24 04/05/24 04/05/24 07:40 15:20 15:38 WBC 6.6 RBC 3.94 L Hgb 12.0 Hct 35.8 L MCV 90.9 MCH 30.5 MCHC 33.5 RDW 13.7 Plt Count 208 MPV 10.5 Immature Gran % (Auto) Neut % (Auto) Lymph % (Auto) [place] % (Auto) Eos % (Auto) Baso % (Auto) Lymph # (Auto) [place] # (Auto) Eos # (Auto) Baso # (Auto) Abs Immat Gran (auto) Absolute Neuts (auto) 5.0 Absolute Nucleated RBC 0.000 Nucleated RBC % (auto) 0.0 Sodium 144 Potassium 3.5 Chloride 106 Carbon Dioxide 25 Anion Gap 17 BUN 17 H Creatinine 1.50 H Estim Creat Clear Calc 37.2 Estimated GFR 34 POC Glucose 100 Random Glucose 74 Fasting Glucose Estimat Average Glucose Hemoglobin A1c % Calcium 9.8 Magnesium Total Bilirubin 0.4 AST 21 ALT 8 Alkaline Phosphatase 127 H Total Protein 5.8 L Albumin 3.9 Triglycerides Cholesterol LDL Cholesterol, Calc HDL Cholesterol Vitamin B12 Folate TSH Urine Color Urine Appearance Urine pH Ur Specific [place] Urine Protein Urine Glucose (UA) Urine Ketones Urine Blood Urine Nitrite Ur Leukocyte Esterase Urine RBC Urine WBC Ur Squamous Epith Cells Urine Bacteria Hyaline Casts Urine Opiates Screen Ur Buprenorphine Scrn Ur Oxycodone Screen Urine Methadone Screen Urine Fentanyl Screen Ur Barbiturates Screen Ur Phencyclidine Scrn Ur Amphetamines Screen U Benzodiazepines Scrn Urine Cocaine Screen U Marijuana (THC) Screen Ethyl Alcohol 04/12/24 04/15/24 04/22/24 08:30 08:26 07:29 WBC RBC Hgb Hct MCV MCH MCHC RDW Plt Count MPV Immature Gran % (Auto) Neut % (Auto) Lymph % (Auto) [place] % (Auto) Eos % (Auto) Baso % (Auto) Lymph # (Auto) [place] # (Auto) Eos # (Auto) Baso # (Auto) Abs Immat Gran (auto) Absolute Neuts (auto) 3.7 6.0 3.4 Absolute Nucleated RBC Nucleated RBC % (auto) Sodium Potassium Chloride Carbon Dioxide Anion Gap BUN Creatinine Estim Creat Clear Calc Estimated GFR POC Glucose Random Glucose Fasting Glucose Estimat Average Glucose Hemoglobin A1c % Calcium Magnesium Total Bilirubin AST ALT Alkaline Phosphatase Total Protein Albumin Triglycerides Cholesterol LDL Cholesterol, Calc HDL Cholesterol Vitamin B12 Folate TSH Urine Color Urine Appearance Urine pH Ur Specific [place] Urine Protein Urine Glucose (UA) Urine Ketones Urine Blood Urine Nitrite Ur Leukocyte Esterase Urine RBC Urine WBC Ur Squamous Epith Cells Urine Bacteria Hyaline Casts Urine Opiates Screen Ur Buprenorphine Scrn Ur Oxycodone Screen Urine Methadone Screen Urine Fentanyl Screen Ur Barbiturates Screen Ur Phencyclidine Scrn Ur Amphetamines Screen U Benzodiazepines Scrn Urine Cocaine Screen U Marijuana (THC) Screen Ethyl Alcohol 04/29/24 05/06/24 05/13/24 08:53 08:22 08:34 WBC RBC Hgb Hct MCV MCH MCHC RDW Plt Count MPV Immature Gran % (Auto) Neut % (Auto) Lymph % (Auto) [place] % (Auto) Eos % (Auto) Baso % (Auto) Lymph # (Auto) [place] # (Auto) Eos # (Auto) Baso # (Auto) Abs Immat Gran (auto) Absolute Neuts (auto) 6.0 3.7 4.6 Absolute Nucleated RBC Nucleated RBC % (auto) Sodium Potassium Chloride Carbon Dioxide Anion Gap BUN Creatinine Estim Creat Clear Calc Estimated GFR POC Glucose Random Glucose Fasting Glucose Estimat Average Glucose Hemoglobin A1c % Calcium Magnesium Total Bilirubin AST ALT Alkaline Phosphatase Total Protein Albumin Triglycerides Cholesterol LDL Cholesterol, Calc HDL Cholesterol Vitamin B12 Folate TSH Urine Color Urine Appearance Urine pH Ur Specific [place] Urine Protein Urine Glucose (UA) Urine Ketones Urine Blood Urine Nitrite Ur Leukocyte Esterase Urine RBC Urine WBC Ur Squamous Epith Cells Urine Bacteria Hyaline Casts Urine Opiates Screen Ur Buprenorphine Scrn Ur Oxycodone Screen Urine Methadone Screen Urine Fentanyl Screen Ur Barbiturates Screen Ur Phencyclidine Scrn Ur Amphetamines Screen U Benzodiazepines Scrn Urine Cocaine Screen U Marijuana (THC) Screen Ethyl Alcohol 05/20/24 05/27/24 06/03/24 10:23 10:43 07:30 WBC RBC Hgb Hct MCV MCH MCHC RDW Plt Count MPV Immature Gran % (Auto) Neut % (Auto) Lymph % (Auto) [place] % (Auto) Eos % (Auto) Baso % (Auto) Lymph # (Auto) [place] # (Auto) Eos # (Auto) Baso # (Auto) Abs Immat Gran (auto) Absolute Neuts (auto) 5.4 8.1 3.8 Absolute Nucleated RBC Nucleated RBC % (auto) Sodium Potassium Chloride Carbon Dioxide Anion Gap BUN Creatinine Estim Creat Clear Calc Estimated GFR POC Glucose Random Glucose Fasting Glucose Estimat Average Glucose Hemoglobin A1c % Calcium Magnesium Total Bilirubin AST ALT Alkaline Phosphatase Total Protein Albumin Triglycerides Cholesterol LDL Cholesterol, Calc HDL Cholesterol Vitamin B12 Folate TSH Urine Color Urine Appearance Urine pH Ur Specific [place] Urine Protein Urine Glucose (UA) Urine Ketones Urine Blood Urine Nitrite Ur Leukocyte Esterase Urine RBC Urine WBC Ur Squamous Epith Cells Urine Bacteria Hyaline Casts Urine Opiates Screen Ur Buprenorphine Scrn Ur Oxycodone Screen Urine Methadone Screen Urine Fentanyl Screen Ur Barbiturates Screen Ur Phencyclidine Scrn Ur Amphetamines Screen U Benzodiazepines Scrn Urine Cocaine Screen U Marijuana (THC) Screen Ethyl Alcohol 06/10/24 06/11/24 07:31 19:58 WBC 8.0 RBC 3.25 L Hgb 10.0 L Hct 30.1 L MCV 92.6 MCH 30.8 MCHC 33.2 RDW 15.1 Plt Count 277 D MPV 9.6 Immature Gran % (Auto) Neut % (Auto) Lymph % (Auto) [place] % (Auto) Eos % (Auto) Baso % (Auto) Lymph # (Auto) [place] # (Auto) Eos # (Auto) Baso # (Auto) Abs Immat Gran (auto) Absolute Neuts (auto) 4.8 Absolute Nucleated RBC 0.000 Nucleated RBC % (auto) 0.0 Sodium 140 Potassium 4.7 D Chloride 107 Carbon Dioxide 24 Anion Gap 14 BUN 29 H Creatinine 1.14 Estim Creat Clear Calc 46.2 Estimated GFR 47 POC Glucose Random Glucose 106 Fasting Glucose Estimat Average Glucose Hemoglobin A1c % Calcium 9.0 D Magnesium Total Bilirubin AST ALT Alkaline Phosphatase Total Protein Albumin Triglycerides Cholesterol LDL Cholesterol, Calc HDL Cholesterol Vitamin B12 Folate TSH Urine Color Urine Appearance Urine pH Ur Specific [place] Urine Protein Urine Glucose (UA) Urine Ketones Urine Blood Urine Nitrite Ur Leukocyte Esterase Urine RBC Urine WBC Ur Squamous Epith Cells Urine Bacteria Hyaline Casts Urine Opiates Screen Ur Buprenorphine Scrn Ur Oxycodone Screen Urine Methadone Screen Urine Fentanyl Screen Ur Barbiturates Screen Ur Phencyclidine Scrn Ur Amphetamines Screen U Benzodiazepines Scrn Urine Cocaine Screen U Marijuana (THC) Screen Ethyl Alcohol Airway Mallampati Class: III (Small mouth) TM Dist: >3cm Neck ROM: Full Loose/Missing/Broken Teeth: Yes (Poor dentition. Broken tooth top left. Many missing teeth. Denies loose teeth) Heart: RRR Lungs: CTAB Assessment and Plan Assessment Anesthesia Assessment: Anesthesia Plan Discussed and Chart Reviewed Final Anesthetic Review Family History of Problems with Anesthesia: No History of Problems with Anesthesia: No NPO: Yes ASA Class: III Final Preanesthetic Review: No Changes in Pt Med Stat, Meds/Allgs Chart Reviewed, Consent Obtained/Reviewed and Anes Risks/Benef Reviewed Patient Risk: Intermediate Procedure Risk: Intermediate Assessment/Block/Sedation in SS: Assess/Block/Sedation-SS Anesthetic Plan Anesthetic Plan: GA Disposition: Standard PACU
--- NOTE | 2024-06-12 09:52 | MHC.SHP ---
Pre-Procedural Eval Section A - 24 Hr Update-Section A only Date of Service: 06/12/24 The patient is an INPATIENT: Yes Changes since office visit: Yes Patient answered all questions; No Cold of Flu in the past 2 weeks, No New Medical Problems and No Changes in Medication The patient has been examined within 24 hours of the surgical procedure. The History & Physical has been completed within 30 days and I have reviewed it.: Yes Section B - Complete if H&P > 30 days Chief Complaint: Psychosis Allergies: Allergies Allergy/AdvReac Type Severity Reaction Status Date / Time trifluoperazine Allergy Unknown Verified 03/11/24 14:16 [From Adrian] Plan I have reviewed the history and physical and performed a pertinent physical examination on my patient. No changes have occurred unless specified. Time Spent With Patient Time: Total time managing care of this patient today ____ minutes.
--- NOTE | 2024-06-12 09:53 | HO.ECTPROC ---
ECT Procedure Note Diagnosis/Treatment Date of Service: 06/12/24 Diagnosis: Schizoaffective Disorder Current Treatment Number: 11 Treatment: Series Interval Clinical Notes: Consider dec etom to 10 or change to rtlf sz 12 s by eeg Time: Total time managing care of this patient today ____ minutes. ECT Settings Device: THYMATRON DGx Seizure Duration By EEG (in seconds): 12 Medications Administration General Anesthetic: Etomidate (12) Muscle Relaxant: Succinylcholine (80) Ancillary Medications Anti-emetics: Zofran - Pre ECT Airway Management Airway Management: Bag Mask Ventilation
[2024-06-12 10:06] VITALS: BP 187/95; PULSE 83; RESP 31; TEMP 36.4; O2SAT 96
[2024-06-12 10:10] VITALS: BP 152/87; PULSE 82; RESP 31; O2SAT 96
[2024-06-12 10:15] VITALS: BP 138/85; PULSE 80; RESP 14; O2SAT 97
[2024-06-12 10:20] VITALS: BP 133/82; PULSE 81; RESP 14; O2SAT 97
[2024-06-12] MEDS: Sennosides 8.6 MG TABLET PO (11:50)
[2024-06-12] MEDS: cloZAPine 100 MG TABLET PO ×2 (11:50→13:20)
[2024-06-12] MEDS: risperiDONE 3 MG TABLET 6 MG PO ×2 (11:51→19:45)
[2024-06-12] MEDS: Acetaminophen 325 MG TABLET 650 MG PO ×2 (11:51→19:44)
[2024-06-12] MEDS: Famotidine 20 MG TABLET PO (11:52)
[2024-06-12] MEDS: polyethylene glycoL 3350 17 GM POWD.PACK PO (11:52)
[2024-06-12] MEDS: lamoTRIgine 25 MG TABLET 50 MG PO ×2 (11:52→19:45)
[2024-06-12] MEDS: Milk of Magnesia 30 ML ORAL.SUSP PO (12:04)
--- NOTE | 2024-06-12 14:20 | PM.PSYDC ---
DS: Providers Provider Date of admission: 03/12/24 16:54 Primary care physician: Callum Field MD Consults: 06/10/24 14:45 Consult to Hospitalist Routine Comment: Consulting Provider: [facility] [place] [facility] Reason For Exam: needs medical clearance for SNF placement, sorry.. DS: Diagnosis Discharge Diagnosis (1) Routine history and physical examination of adult: Status: Acute DS: Medications Discharge Medications Home Medications: Home Medications ?Medication ?Instructions ?Recorded ?Confirmed clozapine 100 mg tablet 100 mg PO DAILY 03/11/24 03/11/24 clozapine 100 mg tablet 300 mg PO BEDTIME 03/11/24 03/11/24 famotidine 20 mg tablet 20 mg PO DAILY 03/11/24 03/11/24 lamotrigine 25 mg tablet 50 mg PO BID 03/11/24 03/11/24 levothyroxine 75 mcg tablet 75 mcg PO DAILY 03/11/24 03/11/24 risperidone 2 mg tablet 6 mg PO BID 03/11/24 03/11/24 sennosides 8.6 mg tablet (senna) 8.6 mg PO DAILY PRN Constipation 03/11/24 03/11/24 Previous Rx's ?Medication ?Instructions ?Recorded acetaminophen 325 mg tablet 650 mg (2 x 325 mg) PO BID 30 days 06/12/24 #120 tabs clozapine 100 mg tablet 100 mg PO DAILY 30 days #30 tabs 06/12/24 clozapine 100 mg tablet 100 mg PO DAILY@1230 30 days #30 06/12/24 tabs clozapine 100 mg tablet 200 mg (2 x 100 mg) PO BEDTIME 30 06/12/24 days #60 tabs famotidine 20 mg tablet 20 mg PO DAILY 30 days #30 tabs 06/12/24 lamotrigine 25 mg tablet 50 mg (2 x 25 mg) PO BID 30 days 06/12/24 #120 tabs levothyroxine 75 mcg tablet 75 mcg PO DAILY@0600 30 days #30 06/12/24 tabs mirtazapine 7.5 mg tablet 7.5 mg PO BEDTIME 30 days #30 tabs 06/12/24 polyethylene glycol 3350 17 gram 17 g PO DAILY 30 days #30 ea 06/12/24 oral powder packet risperidone 3 mg tablet 6 mg (2 x 3 mg) PO BID 30 days 06/12/24 #120 tabs sennosides 8.6 mg tablet (Senna 8.6 mg PO DAILY 30 days #30 tabs 06/12/24 Lax) trazodone 50 mg tablet 50 mg PO BEDTIME MRX1 PRN Insomnia 06/12/24 30 days #30 tabs Data Data Completed and Pending Completed studies during hospitalization [Text1]: 06/10/24 06/11/24 07:31 19:58 WBC 8.0 RBC 3.25 L Hgb 10.0 L Hct 30.1 L MCV 92.6 MCH 30.8 MCHC 33.2 RDW 15.1 Plt Count 277 D MPV 9.6 Absolute Neuts (auto) 4.8 Absolute Nucleated RBC 0.000 Nucleated RBC % (auto) 0.0 Sodium 140 Potassium 4.7 D Chloride 107 Carbon Dioxide 24 Anion Gap 14 BUN 29 H Creatinine 1.14 Estim Creat Clear Calc 46.2 Estimated GFR 47 Random Glucose 106 Calcium 9.0 D 03/11/24 Unknown Urine clean catch - Clean Catch Midstream Urine Culture - Final Imaging Diagnostic Imaging Impressions Head CT 03/18/24 09:42 IMPRESSION: 1. No evidence of acute intracranial hemorrhage or edematous territorial infarction. 2. Mild to moderate underlying microangiopathy. 3. Arachnoid cyst in the right middle cranial fossa. Electronically signed by: Mino Arriaga DO 03/18/2024 06:26 PM EST RP Head CT 03/19/24 01:36 IMPRESSION: 1. Left frontal scalp soft tissue swelling. 2. No acute intracranial process seen. 3. Stable right middle cranial fossa arachnoid cyst. Electronically signed by: Andreas Olsen MD 03/19/2024 02:08 AM EST RP Head CT 04/05/24 16:20 IMPRESSION: 1. No acute intracranial hemorrhage or mass effect. 2. Stable right middle cranial fossa arachnoid cyst. Electronically signed by: Getachew Arana MD 04/05/2024 05:15 PM EST RP KUB X-Ray 04/16/24 13:57 IMPRESSION: Nonobstructive bowel gas pattern. Large colonic and rectal fecal material. Electronically signed by: Chencho Ugalde MD 04/16/2024 02:13 PM EST RP DS: Summary Time Spent with Patient Time attestation: Total time managing care of this patient today ____ minutes. Discharge Plan Discharge Referrals: [facility] [Other] - 06/15/24 (Transfer back to [facility] on 06/15/24. ) [facility] ACCS team [Other] - 06/19/24 1:00 pm (Your motion picture set worker Maria Antonia will meet with you once a week for outreach visits. Your next IAP meeting is scheduled with your ACCS outreach team at [facility] for 06/19/24 at 1pm. ) [facility] Psychiatry [Other] - 06/18/24 12:30 pm (You are scheduled for an in office visit with Sage Younger for psychiatry on 06/18/24 at 12:30pm. ) [facility] outpatient ECT program [Other] - 06/22/24 6:00 am (You are scheduled for 4 weekly outpatient ECT sessions starting Saturday06/22/24. Your ECT schedule is as follows 06/22/24, 06/29/24, 07/06/24, and 07/13/24. Please arrive to short stay surgery at 6am on those days (second floor of [facility]).) [facility] Therapist: Eusebio Quijano [Other] - 06/17/24 10:00 am (Your next therapy appointment is scheduled for Saturday06/17/24 at 10am. Your therapist will meet with you weekly on at 10am. ) Callum Field MD [Primary Care Provider] - 06/16/24 11:00 am (Your next appointment is scheduled with primary care on 06/16/24 at 11am. ) Discharge Medications: New sennosides [Senna Lax] 8.6 mg Tablet 8.6 mg PO DAILY 30 Days Qty: 30 0RF acetaminophen 325 mg Tablet 650 mg PO BID 30 Days Qty: 120 0RF trazodone 50 mg Tablet 50 mg PO BEDTIME MRX1 PRN (Reason: Insomnia) 30 Days Qty: 30 0RF polyethylene glycol 3350 17 gram Powder In Packet 17 g PO DAILY 30 Days Qty: 30 0RF clozapine 100 mg Tablet 100 mg PO DAILY 30 Days Qty: 30 0RF clozapine 100 mg Tablet 200 mg PO BEDTIME 30 Days Qty: 60 0RF clozapine 100 mg Tablet 100 mg PO DAILY@1230 30 Days Qty: 30 0RF risperidone 3 mg Tablet 6 mg PO BID 30 Days Qty: 120 0RF lamotrigine 25 mg Tablet 50 mg PO BID 30 Days Qty: 120 0RF levothyroxine 75 mcg Tablet 75 mcg PO DAILY@0600 30 Days Qty: 30 0RF famotidine 20 mg Tablet 20 mg PO DAILY 30 Days Qty: 30 0RF mirtazapine 7.5 mg Tablet 7.5 mg PO BEDTIME 30 Days Qty: 30 0RF Discontinued lamotrigine 25 mg Tablet 50 mg PO BID levothyroxine 75 mcg Tablet 75 mcg PO DAILY risperidone 2 mg Tablet 6 mg PO BID famotidine 20 mg Tablet 20 mg PO DAILY clozapine 100 mg Tablet 300 mg PO BEDTIME clozapine 100 mg Tablet 100 mg PO DAILY sennosides [senna] 8.6 mg Tablet 8.6 mg PO DAILY PRN (Reason: Constipation) Print Language: Macedonian
--- NOTE | 2024-06-12 16:20 | P.PNPSI_ITS ---
Subjective Subjective Date of Service: 06/12/24 Reason For Visit: Psychosis Subjective Notes: Conditional Voluntary Interim History: The nursing staff reported the patient took a shower, she had ECT reports that she slept well. On interview the patient denies new symptoms she feels better. The manager social reported that she could be discharged next Saturday, we sent her scripts today Mental Status Exam Mental Status Exam Patient Appearance: Appropriate Patient Orientation: Person and Situation Level of Consciousness: Awake Patient Behavior: Guarded and Passive Mood Description: Withdrawn Affect Description: Constricted Patient Cognition Impaired: Yes Ability to Follow Directions: Good Speech Pattern: Clear Hallucinations: Auditory Delusions: Paranoid Ideation and Ideas of Reference Thought Process: Distracted and Slowed Thinking Thought Content: positive for [place] and positive for Poverty of Content Judgement: Fair Diagnostics Vital Signs (24Hr): Vital Signs - 24 hr 06/11/24 20:00 06/12/24 08:18 06/12/24 10:06 Temperature 97.5 F 97.1 F 97.5 F Pulse Rate 89 85 83 Respiratory Rate 16 16 31 H Blood Pressure 122/68 113/69 187/95 H Pulse Oximetry 98 96 96 Oxygen Delivery Method Room Air Room Air Nasal Cannula with ETCO2 Oxygen Flow Rate 2 06/12/24 10:10 06/12/24 10:15 06/12/24 10:20 Temperature Pulse Rate 82 80 81 Respiratory Rate 31 H 14 14 Blood Pressure 152/87 H 138/85 133/82 Pulse Oximetry 96 97 97 Oxygen Delivery Method Nasal Cannula with ETCO2 Room Air Room Air Oxygen Flow Rate 2 BMI result Body Mass Index 27.6 Labs 06/11/24 19:58 06/11/24 19:58 Labs: Laboratory Results - last 48 hr 06/11/24 19:58 WBC 8.0 RBC 3.25 L Hgb 10.0 L Hct 30.1 L MCV 92.6 MCH 30.8 MCHC 33.2 RDW 15.1 Plt Count 277 D MPV 9.6 Absolute Nucleated RBC 0.000 Nucleated RBC % (auto) 0.0 Sodium 140 Potassium 4.7 D Chloride 107 Carbon Dioxide 24 Anion Gap 14 BUN 29 H Creatinine 1.14 Estim Creat Clear Calc 46.2 Estimated GFR 47 Random Glucose 106 Calcium 9.0 D Imaging Radiology Impressions: ITS Impressions Head CT 03/18/24 09:42 IMPRESSION: 1. No evidence of acute intracranial hemorrhage or edematous territorial infarction. 2. Mild to moderate underlying microangiopathy. 3. Arachnoid cyst in the right middle cranial fossa. Electronically signed by: Mino Arriaga DO 03/18/2024 06:26 PM EST RP Head CT 03/19/24 01:36 IMPRESSION: 1. Left frontal scalp soft tissue swelling. 2. No acute intracranial process seen. 3. Stable right middle cranial fossa arachnoid cyst. Electronically signed by: Andreas Olsen MD 03/19/2024 02:08 AM EST RP Head CT 04/05/24 16:20 IMPRESSION: 1. No acute intracranial hemorrhage or mass effect. 2. Stable right middle cranial fossa arachnoid cyst. Electronically signed by: Getachew Arana MD 04/05/2024 05:15 PM EST RP KUB X-Ray 04/16/24 13:57 IMPRESSION: Nonobstructive bowel gas pattern. Large colonic and rectal fecal material. Electronically signed by: Chnecho Ugalde MD 04/16/2024 02:13 PM EST RP Medications Medications Current Medications Acetaminophen (Acetaminophen 325 Mg Tablet) 650 mg PO BID PRN PRN Reason: Headache/Pain Mild Scale (1-3) Acetaminophen (Acetaminophen 325 Mg Tablet) 650 mg PO BID [facility] Last Admin: 06/12/24 11:51 Dose: 650 mg Al Hydroxide/Mg Hydroxide (Magnesium Hydrox/Alum Hydrox 30 Ml Oral.Susp) 30 ml PO Q6H PRN PRN Reason: Heartburn/Nausea Clozapine (Clozapine 100 Mg Tablet) 100 mg PO DAILY [facility] Last Admin: 06/12/24 11:50 Dose: 100 mg Clozapine (Clozapine 100 Mg Tablet) 100 mg PO DAILY@1230 [facility] Last Admin: 06/12/24 13:20 Dose: 100 mg Clozapine (Clozapine 100 Mg Tablet) 200 mg PO BEDTIME [facility] Last Admin: 06/11/24 20:42 Dose: 200 mg Famotidine (Famotidine 20 Mg Tablet) 20 mg PO DAILY [facility] Last Admin: 06/12/24 11:52 Dose: 20 mg Hydrocortisone (Hydrocortisone 2.5 % Rectal Cr 30 Gm Tube) 1 appl [place] DAILY [facility] Last Admin: 06/12/24 12:35 Dose: Not Given Hydroxyzine HCl (Hydroxyzine Hcl 25 Mg Tablet) 25 mg PO Q6H PRN PRN Reason: Anxiety Last Admin: 05/31/24 21:04 Dose: 25 mg Lactated Ringer's (Lr) 1,000 mls @ 50 mls/hr IVCONT .Q20H [facility] Last Admin: 06/12/24 13:26 Dose: Not Given Lamotrigine (Lamotrigine 25 Mg Tablet) 50 mg PO BID [facility] Last Admin: 06/12/24 11:52 Dose: 50 mg Levothyroxine Sodium (Levothyroxine Sodium 75 Mcg Tablet) 75 mcg PO DAILY@0600 [facility] Last Admin: 06/12/24 05:06 Dose: Not Given Magnesium Hydroxide (Milk Of Magnesia 30 Ml Oral.Susp) 30 ml PO BID PRN PRN Reason: Constipation Last Admin: 06/12/24 12:04 Dose: 30 ml Mirtazapine (Mirtazapine 7.5 Mg Tablet) 7.5 mg PO BEDTIME [facility] Last Admin: 06/11/24 20:42 Dose: 7.5 mg Nicotine Polacrilex (Nicotine Polacrilex 2 Mg Gum) 2 mg BUCCAL Q2H PRN PRN Reason: Nicotine Cravings Olanzapine (Olanzapine 5 Mg Tablet) 5 mg PO Q4H PRN PRN Reason: Psychosis Last Admin: 05/09/24 10:24 Dose: 5 mg Polyethylene Glycol (Polyethylene Glycol 3350 17 Gm Powd.Pack) 17 gm PO DAILY PRN PRN Reason: Constipation Last Admin: 04/18/24 00:24 Dose: 17 gm Polyethylene Glycol (Polyethylene Glycol 3350 17 Gm Powd.Pack) 17 gm PO DAILY [facility] Last Admin: 06/12/24 11:52 Dose: 17 gm Risperidone (Risperidone 3 Mg Tablet) 6 mg PO BID [facility] Last Admin: 06/12/24 11:51 Dose: 6 mg Senna (Sennosides 8.6 Mg Tablet) 8.6 mg PO DAILY [facility] Last Admin: 06/12/24 11:50 Dose: 8.6 mg Trazodone HCl (Trazodone Hcl 50 Mg Tablet) 50 mg PO BEDTIME MRX1 PRN PRN Reason: Insomnia Last Admin: 06/02/24 20:37 Dose: 50 mg Allergies Allergies Allergy/AdvReac Type Severity Reaction Status Date / Time trifluoperazine Allergy Unknown Verified 03/11/24 14:16 [From [place]] Assessment & Plan Assessment & Plan (1) Routine history and physical examination of adult: Status: Acute Code(s): Z00.00 - Encounter for general adult medical examination without abnormal findings Plan Pt is a 74-year-old female with a PMH significant for HTN, post-op VTE 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 Hospitalist consult for discharge physical. Discharge physical Pt with benign physical examination and labs, no significant acute medical complaints No indication for additional medical workup or treatment There are no medical contraindications for discharge of pt or admission of pt to SNF Hypothyroidism Continue levothyroxine CKD 3 Creatinine 1.14 Stable, at baseline GERD Continue famotidine Mood disorder Continue mood stabilizers Plan as per Psychiatry Plan 1. Continue with clozapine and Risperdal. 2. Continue with ECT. 3. Discharge next Saturday. Reason for continued inpatient stay Substantial Risk for: inability to function, rapid decompensation and med/psych decompensation Time Spent With Patient Time: Total time managing care of this patient today _20___ minutes.
[2024-06-12] MEDS: Mirtazapine 7.5 MG TABLET PO (19:45)
[2024-06-12] MEDS: cloZAPine 100 MG TABLET 200 MG PO (19:45)
[2024-06-12 19:48] VITALS: BP 125/61; PULSE 81; RESP 17; TEMP 36.9; O2SAT 97
[2024-06-13] MEDS: Levothyroxine Sodium 75 MCG TABLET PO (05:42)
[2024-06-13 08:00] VITALS: BP 87/50; PULSE 111; RESP 18; TEMP 36.5; O2SAT 98
[2024-06-13] MEDS: risperiDONE 3 MG TABLET 6 MG PO ×2 (09:39→20:08)
[2024-06-13] MEDS: lamoTRIgine 25 MG TABLET 50 MG PO ×2 (09:39→20:08)
[2024-06-13] MEDS: Famotidine 20 MG TABLET PO (09:39)
[2024-06-13] MEDS: Sennosides 8.6 MG TABLET PO (09:40)
[2024-06-13] MEDS: cloZAPine 100 MG TABLET PO ×2 (09:40→12:35)
[2024-06-13] MEDS: Acetaminophen 325 MG TABLET 650 MG PO ×2 (09:40→20:09)
--- NOTE | 2024-06-13 17:31 | HO.PSYCHPN ---
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 Denies anxiety/depression still has some AH. BP's lower today, but asymptomatic ; drinking fluids Mental Status Exam Mental Status Exam Narrative: Pt is alert and oriented; behavior is cooperative, friendly and calm; patient is not in distress; dressed in casual attire with unkempt hair but adequate hygiene; mood is described as pretty good and affect congruent; eye contact appropriate; Speech is normal rate, volume and prosody and not pressured; no psychomotor agitation/retardation present; thought process is organized and goal directed; Thought content is on tx; otherwise pertinent to relevant topics and without any delusional content, paranoid ideations or grandiosity; denies any SI/HI. some AH; Patients insight and judgment appear intact. Diagnostics Vital Signs (24Hr): Vital Signs - 24 hr 06/12/24 19:48 06/13/24 08:00 Temperature 98.4 F 97.7 F Pulse Rate 81 111 H Respiratory Rate 17 18 Blood Pressure 125/61 87/50 L Pulse Oximetry 97 98 Oxygen Delivery Method Room Air BMI result Body Mass Index 27.6 Labs 06/11/24 19:58 06/11/24 19:58 Labs: Laboratory Results - last 48 hr 06/11/24 19:58 WBC 8.0 RBC 3.25 L Hgb 10.0 L Hct 30.1 L MCV 92.6 MCH 30.8 MCHC 33.2 RDW 15.1 Plt Count 277 D MPV 9.6 Absolute Nucleated RBC 0.000 Nucleated RBC % (auto) 0.0 Sodium 140 Potassium 4.7 D Chloride 107 Carbon Dioxide 24 Anion Gap 14 BUN 29 H Creatinine 1.14 Estim Creat Clear Calc 46.2 Estimated GFR 47 Random Glucose 106 Calcium 9.0 D Imaging Radiology Impressions: ITS Impressions Head CT 03/18/24 09:42 IMPRESSION: 1. No evidence of acute intracranial hemorrhage or edematous territorial infarction. 2. Mild to moderate underlying microangiopathy. 3. Arachnoid cyst in the right middle cranial fossa. Electronically signed by: Mino Arriaga DO 03/18/2024 06:26 PM [facility] Head CT 03/19/24 01:36 IMPRESSION: 1. Left frontal scalp soft tissue swelling. 2. No acute intracranial process seen. 3. Stable right middle cranial fossa arachnoid cyst. Electronically signed by: Andreas Olsen MD 03/19/2024 02:08 AM EST RP Head CT 04/05/24 16:20 IMPRESSION: 1. No acute intracranial hemorrhage or mass effect. 2. Stable right middle cranial fossa arachnoid cyst. Electronically signed by: Getachew Arana MD 04/05/2024 05:15 PM EST RP KUB X-Ray 04/16/24 13:57 IMPRESSION: Nonobstructive bowel gas pattern. Large colonic and rectal fecal material. Electronically signed by: Chencho Ugalde MD 04/16/2024 02:13 PM EST RP Medications Medications Current Medications Acetaminophen (Acetaminophen 325 Mg Tablet) 650 mg PO BID PRN PRN Reason: Headache/Pain Mild Scale (1-3) Acetaminophen (Acetaminophen 325 Mg Tablet) 650 mg PO BID [facility] Last Admin: 06/13/24 09:40 Dose: 650 mg Al Hydroxide/Mg Hydroxide (Magnesium Hydrox/Alum Hydrox 30 Ml Oral.Susp) 30 ml PO Q6H PRN PRN Reason: Heartburn/Nausea Clozapine (Clozapine 100 Mg Tablet) 100 mg PO DAILY [facility] Last Admin: 06/13/24 09:40 Dose: 100 mg Clozapine (Clozapine 100 Mg Tablet) 100 mg PO DAILY@1230 [facility] Last Admin: 06/13/24 12:35 Dose: 100 mg Clozapine (Clozapine 100 Mg Tablet) 200 mg PO BEDTIME [facility] Last Admin: 06/12/24 19:45 Dose: 200 mg Famotidine (Famotidine 20 Mg Tablet) 20 mg PO DAILY [facility] Last Admin: 06/13/24 09:39 Dose: 20 mg Hydrocortisone (Hydrocortisone 2.5 % Rectal Cr 30 Gm Tube) 1 appl [place] DAILY [facility] Last Admin: 06/13/24 09:43 Dose: Not Given Hydroxyzine HCl (Hydroxyzine Hcl 25 Mg Tablet) 25 mg PO Q6H PRN PRN Reason: Anxiety Last Admin: 05/31/24 21:04 Dose: 25 mg Lactated Ringer's (Lr) 1,000 mls @ 50 mls/hr IVCONT .Q20H [facility] Last Admin: 06/13/24 05:42 Dose: Not Given Lamotrigine (Lamotrigine 25 Mg Tablet) 50 mg PO BID [facility] Last Admin: 06/13/24 09:39 Dose: 50 mg Levothyroxine Sodium (Levothyroxine Sodium 75 Mcg Tablet) 75 mcg PO DAILY@0600 [facility] Last Admin: 06/13/24 05:42 Dose: 75 mcg Magnesium Hydroxide (Milk Of Magnesia 30 Ml Oral.Susp) 30 ml PO BID PRN PRN Reason: Constipation Last Admin: 06/12/24 12:04 Dose: 30 ml Mirtazapine (Mirtazapine 7.5 Mg Tablet) 7.5 mg PO BEDTIME [facility] Last Admin: 06/12/24 19:45 Dose: 7.5 mg Nicotine Polacrilex (Nicotine Polacrilex 2 Mg Gum) 2 mg BUCCAL Q2H PRN PRN Reason: Nicotine Cravings Olanzapine (Olanzapine 5 Mg Tablet) 5 mg PO Q4H PRN PRN Reason: Psychosis Last Admin: 05/09/24 10:24 Dose: 5 mg Polyethylene Glycol (Polyethylene Glycol 3350 17 Gm Powd.Pack) 17 gm PO DAILY [facility] Last Admin: 06/13/24 09:43 Dose: Not Given Risperidone (Risperidone 3 Mg Tablet) 6 mg PO BID [facility] Last Admin: 06/13/24 09:39 Dose: 6 mg Senna (Sennosides 8.6 Mg Tablet) 8.6 mg PO DAILY [facility] Last Admin: 06/13/24 09:40 Dose: 8.6 mg Trazodone HCl (Trazodone Hcl 50 Mg Tablet) 50 mg PO BEDTIME MRX1 PRN PRN Reason: Insomnia Last Admin: 06/02/24 20:37 Dose: 50 mg Allergies Allergies Allergy/AdvReac Type Severity Reaction Status Date / Time trifluoperazine Allergy Unknown Verified 03/11/24 14:16 [From Stelazine] Assessment & Plan Assessment & Plan (1) Schizophrenia: Status: Acute Code(s): F20.9 - Schizophrenia, unspecified Plan Pt is a 74-year-old female with a PMH significant for HTN, post-op VTE 2 years ago not on anticoagulation, hypothyroidism, CKD3, and mood disorder who was originally admitted to [facility] after eloping from [facility] and walking into traffic on purpose. Hospitalist consult for discharge physical. Discharge physical Pt with benign physical examination and labs, no significant acute medical complaints No indication for additional medical workup or treatment There are no medical contraindications for discharge of pt or admission of pt to SNF Hypothyroidism Continue levothyroxine CKD 3 Creatinine 1.14 Stable, at baseline GERD Continue famotidine Mood disorder Continue mood stabilizers Plan as per Psychiatry Plan 1. Continue with clozapine and Risperdal. 2. Continue with ECT. 3. Discharge next Saturday. Patient educated on: diagnosis and ECT Informed Consent: understands Reason for continued inpatient stay Substantial Risk for: stable for discharge Time Spent With Patient Time: Total time managing care of this patient today ____ minutes.
[2024-06-13 20:06] VITALS: BP 123/72; PULSE 77; RESP 16; TEMP 36.6; O2SAT 96
[2024-06-13] MEDS: cloZAPine 100 MG TABLET 200 MG PO (20:08)
[2024-06-13] MEDS: Mirtazapine 7.5 MG TABLET PO (20:09)
[2024-06-14] MEDS: Levothyroxine Sodium 75 MCG TABLET PO (05:46)
[2024-06-14 08:00] VITALS: BP 122/75; PULSE 72; RESP 18; TEMP 36.3; O2SAT 96
[2024-06-14] MEDS: lamoTRIgine 25 MG TABLET 50 MG PO ×2 (08:14→19:57)
[2024-06-14] MEDS: risperiDONE 3 MG TABLET 6 MG PO ×2 (08:14→19:57)
[2024-06-14] MEDS: Acetaminophen 325 MG TABLET 650 MG PO ×2 (08:15→19:56)
[2024-06-14] MEDS: cloZAPine 100 MG TABLET PO ×2 (08:15→12:25)
[2024-06-14] MEDS: Sennosides 8.6 MG TABLET PO (08:15)
[2024-06-14] MEDS: Famotidine 20 MG TABLET PO (08:15)
[2024-06-14] MEDS: Mirtazapine 7.5 MG TABLET PO (19:56)
[2024-06-14] MEDS: cloZAPine 100 MG TABLET 200 MG PO (19:57)
[2024-06-14 20:00] VITALS: BP 105/56; PULSE 77; RESP 16; TEMP 36.4; O2SAT 96
--- NOTE | 2024-06-14 22:29 | HO.PSYCHPN ---
Subjective Subjective Date of Service: 06/14/24 Reason For Visit: Psychosis Interim History: met with pt; discussed with team pt reports feeling tired today; resting. planning for ECT tomorrow. Mental Status Exam Mental Status Exam Narrative: Pt is alert and oriented; behavior is cooperative, friendly and calm; patient is not in distress; dressed in casual attire with unkempt hair but adequate hygiene; mood is described as tired and affect congruent; eye contact appropriate; Speech is normal rate, volume and prosody and not pressured; no psychomotor agitation/retardation present; thought process is organized and goal directed; Thought content is on tx; otherwise pertinent to relevant topics and without any delusional content, paranoid ideations or grandiosity; denies any SI/HI. some AH; Patients insight and judgment appear intact. Diagnostics Vital Signs (24Hr): Vital Signs - 24 hr 06/14/24 08:00 06/14/24 20:00 Temperature 97.4 F 97.6 F Pulse Rate 72 77 Respiratory Rate 18 16 Blood Pressure 122/75 105/56 L Pulse Oximetry 96 96 Oxygen Delivery Method Room Air Room Air BMI result Body Mass Index 27.6 Labs 06/11/24 19:58 06/11/24 19:58 Imaging Radiology Impressions: ITS Impressions Head CT 03/18/24 09:42 IMPRESSION: 1. No evidence of acute intracranial hemorrhage or edematous territorial infarction. 2. Mild to moderate underlying microangiopathy. 3. Arachnoid cyst in the right middle cranial fossa. Electronically signed by: Mino Arriaga DO 03/18/2024 06:26 PM EST RP Head CT 03/19/24 01:36 IMPRESSION: 1. Left frontal scalp soft tissue swelling. 2. No acute intracranial process seen. 3. Stable right middle cranial fossa arachnoid cyst. Electronically signed by: Andreas Olsen MD 03/19/2024 02:08 AM EST RP Head CT 04/05/24 16:20 IMPRESSION: 1. No acute intracranial hemorrhage or mass effect. 2. Stable right middle cranial fossa arachnoid cyst. Electronically signed by: Getachew Arana MD 04/05/2024 05:15 PM EST RP KUB X-Ray 04/16/24 13:57 IMPRESSION: Nonobstructive bowel gas pattern. Large colonic and rectal fecal material. Electronically signed by: Chencho Ugalde MD 04/16/2024 02:13 PM [facility] Medications Current Medications Acetaminophen (Acetaminophen 325 Mg Tablet) 650 mg PO BID PRN PRN Reason: Headache/Pain Mild Scale (1-3) Acetaminophen (Acetaminophen 325 Mg Tablet) 650 mg PO BID [facility] Last Admin: 06/14/24 19:56 Dose: 650 mg Al Hydroxide/Mg Hydroxide (Magnesium Hydrox/Alum Hydrox 30 Ml Oral.Susp) 30 ml PO Q6H PRN PRN Reason: Heartburn/Nausea Clozapine (Clozapine 100 Mg Tablet) 100 mg PO DAILY [facility] Last Admin: 06/14/24 08:15 Dose: 100 mg Clozapine (Clozapine 100 Mg Tablet) 100 mg PO DAILY@1230 [facility] Last Admin: 06/14/24 12:25 Dose: 100 mg Clozapine (Clozapine 100 Mg Tablet) 200 mg PO BEDTIME [facility] Last Admin: 06/14/24 19:57 Dose: 200 mg Famotidine (Famotidine 20 Mg Tablet) 20 mg PO DAILY [facility] Last Admin: 06/14/24 08:15 Dose: 20 mg Hydrocortisone (Hydrocortisone 2.5 % Rectal Cr 30 Gm Tube) 1 appl [place] DAILY [facility] Last Admin: 06/14/24 08:17 Dose: Not Given Hydroxyzine HCl (Hydroxyzine Hcl 25 Mg Tablet) 25 mg PO Q6H PRN PRN Reason: Anxiety Last Admin: 05/31/24 21:04 Dose: 25 mg Lamotrigine (Lamotrigine 25 Mg Tablet) 50 mg PO BID [facility] Last Admin: 06/14/24 19:57 Dose: 50 mg Levothyroxine Sodium (Levothyroxine Sodium 75 Mcg Tablet) 75 mcg PO DAILY@0600 [facility] Last Admin: 06/14/24 05:46 Dose: 75 mcg Magnesium Hydroxide (Milk Of Magnesia 30 Ml Oral.Susp) 30 ml PO BID PRN PRN Reason: Constipation Last Admin: 06/12/24 12:04 Dose: 30 ml Mirtazapine (Mirtazapine 7.5 Mg Tablet) 7.5 mg PO BEDTIME [facility] Last Admin: 06/14/24 19:56 Dose: 7.5 mg Nicotine Polacrilex (Nicotine Polacrilex 2 Mg Gum) 2 mg BUCCAL Q2H PRN PRN Reason: Nicotine Cravings Olanzapine (Olanzapine 5 Mg Tablet) 5 mg PO Q4H PRN PRN Reason: Psychosis Last Admin: 05/09/24 10:24 Dose: 5 mg Polyethylene Glycol (Polyethylene Glycol 3350 17 Gm Powd.Pack) 17 gm PO DAILY [facility] Last Admin: 06/14/24 08:17 Dose: Not Given Risperidone (Risperidone 3 Mg Tablet) 6 mg PO BID [facility] Last Admin: 06/14/24 19:57 Dose: 6 mg Senna (Sennosides 8.6 Mg Tablet) 8.6 mg PO DAILY [facility] Last Admin: 06/14/24 08:15 Dose: 8.6 mg Trazodone HCl (Trazodone Hcl 50 Mg Tablet) 50 mg PO BEDTIME MRX1 PRN PRN Reason: Insomnia Last Admin: 06/02/24 20:37 Dose: 50 mg Allergies Allergies Allergy/AdvReac Type Severity Reaction Status Date / Time trifluoperazine Allergy Unknown Verified 03/11/24 14:16 [From Stelazine] Assessment & Plan Assessment & Plan (1) Schizophrenia: Status: Acute Code(s): F20.9 - Schizophrenia, unspecified Plan Pt is a 74-year-old female with a PMH significant for HTN, post-op VTE 2 years ago not on anticoagulation, hypothyroidism, CKD3, and mood disorder who was originally admitted to [facility] after eloping from [facility] and walking into traffic on purpose. Hospitalist consult for discharge physical. Discharge physical Pt with benign physical examination and labs, no significant acute medical complaints No indication for additional medical workup or treatment There are no medical contraindications for discharge of pt or admission of pt to SNF Hypothyroidism Continue levothyroxine CKD 3 Creatinine 1.14 Stable, at baseline GERD Continue famotidine Mood disorder Continue mood stabilizers Plan as per Psychiatry Plan 1. Continue with clozapine and Risperdal. 2. Continue with ECT. 3. Discharge next Saturday. Patient educated on: diagnosis and ECT Informed Consent: understands Reason for continued inpatient stay Substantial Risk for: stable for discharge Time Spent With Patient Time: Total time managing care of this patient today ____ minutes.
[2024-06-15 08:41] VITALS: BP 120/59; PULSE 86; RESP 17; TEMP 36.4; O2SAT 97
[2024-06-15] MEDS: Sennosides 8.6 MG TABLET PO (08:45)
[2024-06-15] MEDS: Acetaminophen 325 MG TABLET 650 MG PO (08:45)
[2024-06-15] MEDS: cloZAPine 100 MG TABLET PO (08:45)
[2024-06-15] MEDS: lamoTRIgine 25 MG TABLET 50 MG PO (08:46)
[2024-06-15] MEDS: Famotidine 20 MG TABLET PO (08:46)
[2024-06-15] MEDS: risperiDONE 3 MG TABLET 6 MG PO (08:46)
--- NOTE | 2024-06-15 09:35 | P.DS_ITS ---
DS: Providers Provider Date of Service: 06/15/24 Date of admission: 03/12/24 16:54 Date of discharge: 06/15/24 Primary care physician: Callum Field MD Consults: 06/10/24 14:45 Consult to Hospitalist Routine Comment: Consulting Provider: [facility] Hospitalists Reason For Exam: needs medical clearance for SNF placement, sorry.. DS: Diagnosis Discharge Diagnosis (1) Schizophrenia: Status: Acute DS: Medications Discharge Medications Home Medications: Previous Rx's ?Medication ?Instructions ?Recorded acetaminophen 325 mg tablet 650 mg (2 x 325 mg) PO BID 30 days 06/12/24 #120 tabs clozapine 100 mg tablet 100 mg PO DAILY 30 days #30 tabs 06/12/24 clozapine 100 mg tablet 100 mg PO DAILY@1230 30 days #30 06/12/24 tabs clozapine 100 mg tablet 200 mg (2 x 100 mg) PO BEDTIME 30 06/12/24 days #60 tabs famotidine 20 mg tablet 20 mg PO DAILY 30 days #30 tabs 06/12/24 lamotrigine 25 mg tablet 50 mg (2 x 25 mg) PO BID 30 days 06/12/24 #120 tabs levothyroxine 75 mcg tablet 75 mcg PO DAILY@0600 30 days #30 06/12/24 tabs mirtazapine 7.5 mg tablet 7.5 mg PO BEDTIME 30 days #30 tabs 06/12/24 polyethylene glycol 3350 17 gram 17 g PO DAILY 30 days #30 ea 06/12/24 oral powder packet risperidone 3 mg tablet 6 mg (2 x 3 mg) PO BID 30 days 06/12/24 #120 tabs sennosides 8.6 mg tablet (Senna 8.6 mg PO DAILY 30 days #30 tabs 06/12/24 Lax) trazodone 50 mg tablet 50 mg PO BEDTIME MRX1 PRN Insomnia 06/12/24 30 days #30 tabs Mental Status Exam Mental Status Exam Patient Appearance: Well Grooomed and Appropriate Patient Orientation: Person and Situation Level of Consciousness: Awake and Appropriate Patient Behavior: Guarded and Passive Mood Description: Withdrawn Affect Description: Constricted Patient Cognition Impaired: Yes Ability to Follow Directions: Good Speech Pattern: Clear Hallucinations: Auditory Delusions: Ideas of Reference Thought Process: Distracted and Slowed Thinking Thought Content: positive for [place] and positive for Poverty of Content Judgement: Fair Data Data Completed and Pending Completed studies during hospitalization [Text1]: 06/10/24 06/11/24 07:31 19:58 WBC 8.0 RBC 3.25 L Hgb 10.0 L Hct 30.1 L MCV 92.6 MCH 30.8 MCHC 33.2 RDW 15.1 Plt Count 277 D MPV 9.6 Absolute Neuts (auto) 4.8 Absolute Nucleated RBC 0.000 Nucleated RBC % (auto) 0.0 Sodium 140 Potassium 4.7 D Chloride 107 Carbon Dioxide 24 Anion Gap 14 BUN 29 H Creatinine 1.14 Estim Creat Clear Calc 46.2 Estimated GFR 47 Random Glucose 106 Calcium 9.0 D 03/11/24 Unknown Urine clean catch - Clean Catch Midstream Urine Culture - Final Imaging Diagnostic Imaging Impressions Head CT 03/18/24 09:42 IMPRESSION: 1. No evidence of acute intracranial hemorrhage or edematous territorial infarction. 2. Mild to moderate underlying microangiopathy. 3. Arachnoid cyst in the right middle cranial fossa. Electronically signed by: Mino Arriaga DO 03/18/2024 06:26 PM EST RP Head CT 03/19/24 01:36 IMPRESSION: 1. Left frontal scalp soft tissue swelling. 2. No acute intracranial process seen. 3. Stable right middle cranial fossa arachnoid cyst. Electronically signed by: Andreas Olsen MD 03/19/2024 02:08 AM EST RP Head CT 04/05/24 16:20 IMPRESSION: 1. No acute intracranial hemorrhage or mass effect. 2. Stable right middle cranial fossa arachnoid cyst. Electronically signed by: Getachew Arana MD 04/05/2024 05:15 PM EST RP KUB X-Ray 04/16/24 13:57 IMPRESSION: Nonobstructive bowel gas pattern. Large colonic and rectal fecal material. Electronically signed by: Chencho Ugalde MD 04/16/2024 02:13 PM Collections RP DS: Summary Hospital Course Hospital Course: The patient is a 74-year-old female, mother of adult children with a past history of schizoaffective disorder with several admissions into the hospital. The patient was transferred from her [facility] facility to the local emergency room due to exacerbation of psychosis, with paranoid delusions and grossly disorganized. She was assessed by the crisis team and transferring to this facility for psychiatric stabilization. Please see the HPI of the admission note for further details. On admission, we review her list of medications and she has been taking Risperdal 6 mg twice a day and a high dose of Clozaril at night that over- sedated. The patient has been hearing voices and being paranoid most of her adult life so we decided to change the scheduling of the Clozaril initially was changed to Clozaril 100 mg b.i.d. and 200 mg p.o. q.h.s. to avoid over-sedation, since the patient was over-sedated and fall wants with a high dose of Clozaril at night. The patient's psychotic symptoms improved slightly but she was internally preoccupied with minimal participation to groups. We had several family meetings and her children disclosed that she did very well with ECT 20 years ago. We went to court to affirmed her healthcare proxy. Restart doing ECT and she improved dramatically, her affect was brighter, cooperative pleasant and she was even able to participate in selected groups. The patient wanted to continue to have ECT since she saw an improvement of her condition. Since there were no safety concerns discharge planning was discussed she was going to be a transferred to a fci facility with ECT as an outpatient for the next weeks as continuation of care. Time spent discussing smoking cessation with patient: 3 to 10 minutes Status at Discharge Cognitive/behavioral status at discharge: Cognitively impaired at baseline Functional status at discharge: independent ambulation Overall status at discharge: patient is back to baseline Time Spent with Patient Time attestation: Total time managing care of this patient today __30__ minutes. Time spent: Less than 30 minutes Discharge Plan Discharge Anticipated Discharge Date/Time: 06/15/24 10:00 Patient Disposition: Xfer SNF Discharge Diagnosis: Schizophrenia Dementia Referrals: [facility] [Other] - 06/15/24 (Transfer back to [facility] on 06/15/24. ) [facility] - 06/19/24 1:00 pm (Your craft worker Maria Antonia will meet with you once a week for outreach visits. Your next IAP meeting is scheduled with your ACCS outreach team at [facility] for 06/19/24 at 1pm. ) [facility] [Other] - 06/18/24 12:30 pm (You are scheduled for an in office visit with Sage Younger for psychiatry on 06/18/24 at 12:30pm. ) [facility] outpatient ECT program [Other] - 06/22/24 6:00 am (You are scheduled for 4 weekly outpatient ECT sessions starting Saturday06/22/24. Your ECT schedule is as follows 06/22/24, 06/29/24, 07/06/24, and 07/13/24. Please arrive to short stay surgery at 6am on those days (second floor of [facility]).) [facility] Therapist: Eusebio Quijano [Other] - 06/17/24 10:00 am (Your next therapy appointment is scheduled for Saturday06/17/24 at 10am. Your therapist will meet with you weekly on at 10am. ) Callum Field MD [Primary Care Provider] - 06/16/24 11:00 am (Your next appointment is scheduled with primary care on 06/16/24 at 11am. ) Discharge Medications: New sennosides [Senna Lax] 8.6 mg Tablet 8.6 mg PO DAILY 30 Days Qty: 30 0RF acetaminophen 325 mg Tablet 650 mg PO BID 30 Days Qty: 120 0RF trazodone 50 mg Tablet 50 mg PO BEDTIME MRX1 PRN (Reason: Insomnia) 30 Days Qty: 30 0RF polyethylene glycol 3350 17 gram Powder In Packet 17 g PO DAILY 30 Days Qty: 30 0RF clozapine 100 mg Tablet 100 mg PO DAILY 30 Days Qty: 30 0RF clozapine 100 mg Tablet 200 mg PO BEDTIME 30 Days Qty: 60 0RF clozapine 100 mg Tablet 100 mg PO DAILY@1230 30 Days Qty: 30 0RF risperidone 3 mg Tablet 6 mg PO BID 30 Days Qty: 120 0RF lamotrigine 25 mg Tablet 50 mg PO BID 30 Days Qty: 120 0RF levothyroxine 75 mcg Tablet 75 mcg PO DAILY@0600 30 Days Qty: 30 0RF famotidine 20 mg Tablet 20 mg PO DAILY 30 Days Qty: 30 0RF mirtazapine 7.5 mg Tablet 7.5 mg PO BEDTIME 30 Days Qty: 30 0RF Discontinued lamotrigine 25 mg Tablet 50 mg PO BID levothyroxine 75 mcg Tablet 75 mcg PO DAILY risperidone 2 mg Tablet 6 mg PO BID famotidine 20 mg Tablet 20 mg PO DAILY clozapine 100 mg Tablet 300 mg PO BEDTIME clozapine 100 mg Tablet 100 mg PO DAILY sennosides [senna] 8.6 mg Tablet 8.6 mg PO DAILY PRN (Reason: Constipation) Discharge Orders: Discharge Order (Routine); Ordered 06/15/24 Ordered By: Christiano Cerda Diet: Advance to usual diet Activity on Discharge: As tolerated Stand Alone Forms: Patient Portal Discharge page Print Language: Mexican Care Plan Goals: Care plan goals achieved in this admission Health Concerns: Continue with primary care physician and other outpatient providers. Plan of Treatment: Continue with ECT as an outpatient. Continue with medication management as an outpatient Assessment: Elderly female with a long history of schizophrenia who was admitted for exacerbation of psychosis and depression that it was improved with the change of the scheduling of the Clozaril and ECT that improved remarkably her mood and she was able to participate in groups. Since there were no safety concerns discharge planning was discussed.
== END 2024-06-15 10:17 | disposition skilled nursing facility (03) | DRG 885 ==
LOC: HO.ED 12:03 → HO.PGERI 03-12 17:05
PROVIDERS: Psychiatry & Neurology Psychiatry; Student in an Organized Health Care Education/Training Program; Admitting Provider Social Worker; Emergency Provider Emergency Medicine; PCP Family Medicine; Visit Provider Social Worker
PROC: GZB4ZZZ Other Electroconvulsive Therapy (ICD-10-PCS; CPT 90870; principal; 2024-05-15 12:30)
DX: F20.9 Schizophrenia, unspecified (principal); R45.851 Suicidal ideations; I12.9 Hypertensive chronic kidney disease with stage 1 through stage 4 chronic kidney disease, or unspecified chronic kidney disease; N18.30 Chronic kidney disease, stage 3 unspecified; G93.0 Cerebral cysts; K64.9 Unspecified hemorrhoids; D63.1 Anemia in chronic kidney disease; E03.9 Hypothyroidism, unspecified; Z23 Encounter for immunization; Z87.891 Personal history of nicotine dependence; Z79.890 Hormone replacement therapy; Z79.899 Other long term (current) drug therapy
CPT/HCPCS: 36415; 70450; 74018; 80048; 80053; 80061; 80307; 81001; 82607; 82746; 82947; 83036; 83735; 84443; 85025; 85027; 85048; 87086; 90656; 90870; 93005; 99285; J0330; J1596; J1805; J1920; J2405; J2704; S9485

== ENCOUNTER → 2024-03-12 09:05 | Outpatient (BNV) | payer MEDICARE, SELFPAY | PROVIDERS: Emergency Provider Emergency Medicine; PCP Family Medicine; Visit Provider Internal Medicine Cardiovascular Disease | DX: Z51.81 Encounter for therapeutic drug level monitoring (principal) | CPT/HCPCS: 93010 ==

== ENCOUNTER 2024-03-12 16:54 | Outpatient (BNV) | payer MEDICARE, MEDICAID, SELFPAY | END 2024-04-06 08:00 | PROVIDERS: Admitting Provider Social Worker; Emergency Provider Emergency Medicine; PCP Family Medicine; Visit Provider Internal Medicine | DX: R94.31 Abnormal electrocardiogram [ECG] [EKG] (principal) | CPT/HCPCS: 93010 ==

== ENCOUNTER 2024-03-12 16:54 | Outpatient (BNV) | payer MEDICARE, MEDICAID, SELFPAY | END 2024-04-23 13:58 | PROVIDERS: Admitting Provider Social Worker; Emergency Provider Emergency Medicine; PCP Family Medicine; Visit Provider Internal Medicine Cardiovascular Disease | DX: Z51.81 Encounter for therapeutic drug level monitoring (principal) | CPT/HCPCS: 93010 ==

== ENCOUNTER 2024-03-12 16:54 | Outpatient (BNV) | payer MEDICARE, SELFPAY | END 2024-03-20 21:12 | PROVIDERS: Admitting Provider Social Worker; Emergency Provider Emergency Medicine; PCP Family Medicine; Visit Provider Internal Medicine | DX: R94.31 Abnormal electrocardiogram [ECG] [EKG] (principal) | CPT/HCPCS: 93010 ==

== ENCOUNTER 2024-03-12 16:54 | Outpatient (BNV) | payer MEDICARE, MEDICAID, SELFPAY | END 2024-04-05 15:41 | PROVIDERS: Admitting Provider Social Worker; Emergency Provider Emergency Medicine; PCP Family Medicine; Visit Provider Internal Medicine | DX: R94.31 Abnormal electrocardiogram [ECG] [EKG] (principal) | CPT/HCPCS: 93010 ==

== ENCOUNTER 2024-03-12 16:54 | Outpatient (BNV) | payer MEDICARE, SELFPAY | END 2024-03-19 17:33 | PROVIDERS: Admitting Provider Social Worker; Emergency Provider Emergency Medicine; PCP Family Medicine; Visit Provider Internal Medicine | DX: R94.31 Abnormal electrocardiogram [ECG] [EKG] (principal) | CPT/HCPCS: 93010 ==

== ENCOUNTER → 2024-03-12 16:54 | Outpatient (BNV) | payer MEDICARE, SELFPAY | PROVIDERS: Admitting Provider Social Worker; Emergency Provider Emergency Medicine; PCP Family Medicine; Visit Provider Student in an Organized Health Care Education/Training Program | DX: I48.92 Unspecified atrial flutter (principal) | CPT/HCPCS: 99222 ==

== ENCOUNTER → 2024-03-12 16:54 | Outpatient (BNV) | payer MEDICARE, SELFPAY | PROVIDERS: Admitting Provider Social Worker; Emergency Provider Emergency Medicine; PCP Family Medicine; Visit Provider Psychiatry & Neurology Psychiatry | DX: F20.0 Paranoid schizophrenia (principal) | CPT/HCPCS: 99231; 99232 ==

== ENCOUNTER → 2024-03-12 16:54 | Outpatient (BNV) | payer MEDICARE, SELFPAY | PROVIDERS: Admitting Provider Social Worker; Emergency Provider Emergency Medicine; PCP Family Medicine; Visit Provider Psychiatry & Neurology Psychiatry | DX: F20.0 Paranoid schizophrenia (principal) | CPT/HCPCS: 90792; 99231; 99232 ==

== ENCOUNTER 2024-06-22 05:42 | Day surgery (SDC) | payer MEDICARE, MEDICAID, SELFPAY ==
[2024-06-22] VITALS (10 sets, daily range): BP systolic 130–172; BP diastolic 84–90; PULSE 73–85; RESP 13–20; TEMP 36.2–36.6; O2SAT 97–99; BMI 28.2
--- NOTE | 2024-06-22 06:56 | HO.ANESPROP2 ---
[facility] Active Problems Active Problems: All Active Problems Routine history and physical examination of adult (Acute) Arachnoid cyst (Acute) Diverticulosis (Chronic) Pre-op evaluation (Acute) Schizophrenia (Acute) Suicidal ideation (Acute) Past Medical History Medical History Diverticulosis Schizophrenia CKD (chronic kidney disease) Hyperlipidemia Type 2 diabetes mellitus Hypothyroidism HTN (hypertension) GERD (gastroesophageal reflux disease) Mood disorder Family History Family history of problems with anesthesia: No Surgical History History of Problems with Anesthesia: No Social History Social History Household Members: None Household Members Other:: Lives at [facility] Housing: Assisted Living Facility Do you presently have visiting nurse or other home services: Yes Alcohol intake: current Patient Tobacco Use Status: Former Tobacco user Tobacco use type: Cigarette Cigarette Packs Per Day: 3 Cigarettes Per Day: 60.0 Years Smoked: 16 Second Hand Smoke Exposure: No Advance Directives: No Advance Directives Information Provided: Yes service: No Sexual orientation: Straight/Heterosexual Meds Allergies Allergy/AdvReac Type Severity Reaction Status Date / Time trifluoperazine Allergy Unknown Verified 03/11/24 14:16 [From Stelazine] Exam Height,Weight and Vital Signs: Height 5 ft 6 in Weight 79.379 kg Last Vital Signs Temp 97.2 F 06/22/24 06:50 Pulse 73 06/22/24 06:50 Resp 20 06/22/24 06:50 BP 130/84 06/22/24 06:50 Pulse Ox 97 06/22/24 06:50 O2 Del Method Room Air 06/22/24 06:50 Airway Mallampati Class: II TM Dist: >3cm Neck ROM: Full Partial: Upper Heart: rrr Lungs: cta Assessment and Plan Assessment Anesthesia Assessment: Anesthesia Plan Discussed and Chart Reviewed Final Anesthetic Review Family History of Problems with Anesthesia: No History of Problems with Anesthesia: No NPO: Yes ASA Class: III Final Preanesthetic Review: No Changes in Pt Med Stat, Meds/Allgs Chart Reviewed and Consent Obtained/Reviewed Patient Risk: Intermediate Procedure Risk: Intermediate Anesthetic Plan Anesthetic Plan: GA Disposition: Standard PACU
--- NOTE | 2024-06-22 07:42 | MHC.SHP ---
Pre-Procedural Eval Section A - 24 Hr Update-Section A only Date of Service: 06/22/24 The patient is an INPATIENT: No Section B - Complete if H&P > 30 days Chief Complaint: Major depressive disorder, recurrent, severe with Details of Present Illness: hx psychotic dep doing well d/c from inpt no si marked dec hallucinations Present Medications: see Short Stay Collaborative assessment Allergies: Allergies Allergy/AdvReac Type Severity Reaction Status Date / Time trifluoperazine Allergy Unknown Verified 03/11/24 14:16 [From Stelaniurka] Review of Systems Sugical H&P ROS: Negative: Cardiovascular, Respiratory and Neurological and Yes, Specify: Psychiatric (feels good no si) Exam Surgical H&P Exam: Normal: Heart (rr ), Normal: Lungs (clear) and Normal: Neurological Plan Diagnosis/Plan: Unchanged I have reviewed the history and physical and performed a pertinent physical examination on my patient. No changes have occurred unless specified. Time Spent With Patient Time: Total time managing care of this patient today ____ minutes.
--- NOTE | 2024-06-22 09:34 | HO.ANESEVENT ---
Anesthesia Event Note Date of Service: 06/22/24 Event Note: 74 yo F received ECT as an outpatient this morning. Medications given include etomidate, succinylcholine, and zofran. After she was changed and ready to go home, the PACU staff member turned to open the curtain, and the patient stated that she tripped over her own feet and fell. The staff member did not witness the fall. The patient denied any dizziness, loss of consciousness, chest pain, or shortness of breath preceding the fall. She also denied any loss of consciousness at any time during the fall. Afterwards, she reported pain on the right side of her head, on her right hip, and in her right groin area. Patient will be sent to the ED for further evaluation. A [id number] report was given to Dr. Jenkins. Time Spent With Patient Time: Total time managing care of this patient today ____ minutes.
--- NOTE | 2024-06-22 09:42 | PC.NURSE ---
upon getting dressed with airport operations manager assisting...and completed while in chair...airport operations manager turned around to open the curtain...patient got up and fell to right of chair stating she hit head and felt pain in inner right groin...report provided to charge nurse in miguel brought to ed.
--- NOTE | 2024-06-24 17:47 | HO.ECTPROC ---
ECT Procedure Note Diagnosis/Treatment Date of Service: 06/22/24 Diagnosis: Schizoaffective Disorder Current Treatment Number: 12 Treatment: Series Interval Clinical Notes: The patient reports she is doing quite well since returning home. She returns for continuation treatment scheduled weekly for a few weeks. Mood she states is good likes where she is living. Patient denies intrusive yazdanism commands or thoughts of self-harm. Alert. ECT completed bifrontal no difficulties noted Time: Total time managing care of this patient today ____ minutes. ECT Settings Device: THYMATRON DGx Electrode Placement: Bifrontal Program/Pulse Width: 0.50 Energy Percent: 100 Seizure Duration By EEG (in seconds): 31 Medications Administration General Anesthetic: Etomidate (12) Muscle Relaxant: Succinylcholine (80) Ancillary Medications Anti-emetics: Zofran - Pre ECT Airway Management Airway Management: Bag Mask Ventilation Treatment Recommendations Pt Tolerated Procedure w/o Issue: Yes
== END 2024-06-22 09:49 | disposition home or self-care (01) ==
PROVIDERS: PCP Family Medicine; Visit Provider Psychiatry & Neurology Psychiatry
PROC: (CPT 90870; principal; 2024-06-22 08:00)
DX: F25.9 Schizoaffective disorder, unspecified (principal); F39 Unspecified mood [affective] disorder; W01.198A Fall on same level from slipping, tripping and stumbling with subsequent striking against other object, initial encounter; Y84.3 Shock therapy as the cause of abnormal reaction of the patient, or of later complication, without mention of misadventure at the time of the procedure; Y92.238 Other place in hospital as the place of occurrence of the external cause; R51.9 Headache, unspecified; M25.551 Pain in right hip; R10.813 Right lower quadrant abdominal tenderness; I12.9 Hypertensive chronic kidney disease with stage 1 through stage 4 chronic kidney disease, or unspecified chronic kidney disease; N18.9 Chronic kidney disease, unspecified; Z79.899 Other long term (current) drug therapy; Z88.8 Allergy status to other drugs, medicaments and biological substances; Z87.891 Personal history of nicotine dependence
CPT/HCPCS: 99499; J0330; J2405

== ENCOUNTER → 2024-06-22 05:42 | Outpatient (BNV) | payer MEDICARE, MEDICAID, SELFPAY | PROVIDERS: PCP Family Medicine; Visit Provider Psychiatry & Neurology Psychiatry | DX: F33.3 Major depressive disorder, recurrent, severe with psychotic symptoms (principal) | CPT/HCPCS: 90870 ==

== ENCOUNTER 2024-06-22 09:58 | Emergency (ER) | payer MEDICARE, MEDICAID, SELFPAY ==
--- NOTE | ~2024-06-22 | CT_ITS ---
.EXAMINATION: CT CERVICAL SPINE WITHOUT CONTRAST CLINICAL INFORMATION: Injury. COMPARISON: None available. TECHNIQUE: Contiguous axial images through the cervical spine using 3 mm collimation with bone and soft tissue algorithm. Sagittal and coronal reformatted images acquired. This CT examination was performed using dose optimization techniques as appropriate, variously including the following: *Automated exposure control *Adjustment of mA and/or kV according to patient size (this includes techniques or standardized protocols for targeted exams where dose is matched to indication/reason for exam; i.e. extremities or head) *Use of iterative reconstruction technique. DLP: 305.62 mGy centimeter. FINDINGS: Craniocervical junction is intact. Degenerative changes in the periodontal C1 region. C1 is intact. C2 is intact. C3 is intact. C4 is intact. C5 is intact. C6 is intact. C7 is intact. Marginal osteophyte formation and endplate sclerosis and decreased intervertebral disc height from C4 to T1. No gross malalignment between the vertebral bodies or the facet joints. No prevertebral compartment hematoma. Calcified plaques in the left carotid bulb and proximal left ICA and to a lesser extent on the right carotid artery. There is a deviation of the trachea without a gross extrinsic mass. Tympanic cavities and mastoid cells are aerated. Arachnoid cyst, right middle cranial fossa. Please refer to the CT brain. CT/CT cervical spine wo IV con IMPRESSION: Multilevel cervical spondylosis without acute fracture or trauma-related listhesis. Fleischner guidelines were followed. Electronically signed by: Roger Branham MD 06/22/2024 12:50 PM [facility]
--- NOTE | ~2024-06-22 | XR_ITS ---
.EXAMINATION: XR HIP, RIGHT CLINICAL INFORMATION: trauma COMPARISON: None available. TECHNIQUE: Two views of the right hip.. AP view pelvis. FINDINGS: There is a cortical disruption involving the superior pubic ramus and possibly the inferior pubic ramus on the right hemipelvis. The coxofemoral joint is intact with normal alignment. Sclerosis and the sacroiliac joints bilaterally. Multilevel marginal osteophyte formation and syndesmophyte formation lower lumbar spine. Spina bifida occulta S1. XR/XR hip RT w PEL1V IMPRESSION: Acute minimally displaced fracture right superior and inferior pubic rami. Electronically signed by: Roger Branham MD 06/22/2024 01:36 PM EST RP
--- NOTE | ~2024-06-22 | CT_ITS ---
.EXAMINATION: CT HEAD WITHOUT CONTRAST CLINICAL INFORMATION: trauma COMPARISON: April 05, 2024. TECHNIQUE: Contiguous axial imaging was performed from the skull base to vertex without intravenous administration of contrast. This CT examination was performed using dose optimization techniques as appropriate, variously including the following: *Automated exposure control *Adjustment of mA and/or kV according to patient size (this includes techniques or standardized protocols for targeted exams where dose is matched to indication/reason for exam; i.e. extremities or head) *Use of iterative reconstruction technique DLP: 639.04 mGy-cm FINDINGS: The bony calvarium is intact. The skull base is intact. There is a 4.8 cm extra-axial CSF equivalent structure in the right middle cranial fossa into the sylvian fissure. No septations or intraluminal hyperdensity or nodular components. No acute intracranial hemorrhage. No hydrocephalus. No herniation. Kowalski-white matter differentiation is normal. Posterior cranial fossa contents demonstrated no acute intracranial hemorrhage or gross masses. Sellar/suprasellar region demonstrated no gross masses or hemorrhage. Craniocervical junction is intact. No air-fluid levels in the included paranasal sinuses. poor pneumatization of the frontal sinuses. There is hyperostosis frontalis. Tympanic cavities and mastoid cells are aerated CT/CT head/brain wo IV con IMPRESSION: No acute fracture, bony calvarium. No acute intracranial hemorrhage. 4.8 cm simple arachnoid cyst, right middle cranial fossa/sylvian fissure. Stable. Electronically signed by: Roger Branham MD 06/22/2024 12:37 PM [facility]
--- NOTE | ~2024-06-22 | CT_ITS ---
EXAMINATION: CT PELVIS WITHOUT CONTRAST CLINICAL INFORMATION: Trauma COMPARISON: None available. TECHNIQUE: Helical scanning was performed with submillimeter collimation through the pelvis. Sagittal and coronal multiplanar 2-D reconstructions were obtained. This CT examination was performed using dose optimization techniques as appropriate, variously including the following: *Automated exposure control *Adjustment of mA and/or kV according to patient size (this includes techniques or standardized protocols for targeted exams where dose is matched to indication/reason for exam; i.e. extremities or head) *Use of iterative reconstruction technique DLP: 343 mGy/cm. FINDINGS: PELVIS: The uterus is retroverted and appears unremarkable. The bladder is nondistended with mild bladder wall thickening. There is no free fluid. The bowel gas pattern is nonspecific. No evidence of inguinal or femoral hernia. No abnormal pelvic lymph nodes. OSSEOUS STRUCTURES: There is a nondisplaced oblique fracture right superior pubic bone . The hip joint spaces maintain normal. There is no visible fracture, lytic or sclerotic process seen. SI and hip joints are symmetrical and normal. No bony erosive changes. Mild facet joint arthropathy seen at L5-S1 and L4-[address]/CT pelvis wo IV con IMPRESSION: Nondisplaced oblique fracture right superior pubic bone. Mild degenerative changes pubic symphysis with degenerative facet arthropathy at L4-5 and L5-S1 disc levels. Electronically signed by: Vijay Faith MD 06/22/2024 04:35 PM EST
--- NOTE | 2024-06-22 10:36 | ED_ITS ---
HPI - Head Injury General Chief complaint: Fall Stated complaint: Fall Time Seen by Provider: 06/22/24 10:30 Source: patient Mode of arrival: wheelchair Limitations: no limitations History of Present Illness HPI Narrative: This is a 74 years old the patient who today underwent ECT therapy she was given etomidate and sux the procedure was uneventful by in the PACU she fell in the head therefore she was sent here by the anesthesiologist Complaint: head injury Onset (ago): hour(s) (1) Mechanism of Injury: fall Place: other (hospital) Loss of Consciousness: no Location of injury: frontal Severity: moderate Quality: burning Radiation: none Other Injuries: none Related Data Previous Rx's ?Medication ?Instructions ?Recorded acetaminophen 325 mg tablet 650 mg (2 x 325 mg) PO BID 30 days 06/12/24 #120 tabs clozapine 100 mg tablet 100 mg PO DAILY 30 days #30 tabs 06/12/24 clozapine 100 mg tablet 100 mg PO DAILY@1230 30 days #30 06/12/24 tabs clozapine 100 mg tablet 200 mg (2 x 100 mg) PO BEDTIME 30 06/12/24 days #60 tabs famotidine 20 mg tablet 20 mg PO DAILY 30 days #30 tabs 06/12/24 lamotrigine 25 mg tablet 50 mg (2 x 25 mg) PO BID 30 days 06/12/24 #120 tabs levothyroxine 75 mcg tablet 75 mcg PO DAILY@0600 30 days #30 06/12/24 tabs mirtazapine 7.5 mg tablet 7.5 mg PO BEDTIME 30 days #30 tabs 06/12/24 polyethylene glycol 3350 17 gram 17 g PO DAILY 30 days #30 ea 06/12/24 oral powder packet risperidone 3 mg tablet 6 mg (2 x 3 mg) PO BID 30 days 06/12/24 #120 tabs sennosides 8.6 mg tablet (Senna 8.6 mg PO DAILY 30 days #30 tabs 06/12/24 Lax) trazodone 50 mg tablet 50 mg PO BEDTIME MRX1 PRN Insomnia 06/12/24 30 days #30 tabs Allergies Allergy/AdvReac Type Severity Reaction Status Date / Time trifluoperazine Allergy Unknown Verified 06/22/24 10:53 [From Adrian] Review of Systems 2 Constitutional: Constitutional: Reports no additional constitutional complaints ENT: Reports system reviewed and no additional complaints, except as documented Gastrointestinal: Gastrointestinal: Reports no additional gastrointestinal complaints PMFSH Past Medical History Attestation statement: The following information was validated with the patient. Source: nursing notes reviewed Medical History Diverticulosis Schizophrenia CKD (chronic kidney disease) Hyperlipidemia Type 2 diabetes mellitus Hypothyroidism HTN (hypertension) GERD (gastroesophageal reflux disease) Mood disorder Social History Social History Household Members: None Household Members Other:: Lives at [facility] Housing: Assisted Living Facility Do you presently have visiting nurse or other home services: Yes Alcohol intake: current Patient Tobacco Use Status: Former Tobacco user Tobacco use type: Cigarette Cigarette Packs Per Day: 3 Cigarettes Per Day: 60.0 Years Smoked: 16 Second Hand Smoke Exposure: No Advance Directives: No Advance Directives Information Provided: Yes service: No Sexual orientation: Straight/Heterosexual Physical Exam 2 Vital Signs: Vital Signs: Last Vital Signs Temp 97.5 F 06/22/24 10:50 Pulse 82 06/22/24 10:50 Resp 18 06/22/24 10:50 BP 144/97 H 06/22/24 10:50 Pulse Ox 97 06/22/24 10:50 O2 Del Method Room Air 06/22/24 10:50 BMI result Body Mass Index 29.0 No acute distress Const: General: cooperative Nutritional Appearance: average body habitus Orientation/consciousness: patient oriented x3 Limitations: no limitations HEENT: Head: Yes normal to inspection and Yes No palpable skull fracture present Ears: hearing grossly normal bilaterally General nose exam: Normal external nose present Face and sinus: Yes normal facial exam Mouth: Normal oral and palatal mucosa present Throat: Yes posterior oropharynx normal Neck: Neck: Yes normal visual inspection and Yes full ROM Chest: Chest palpation & inspection: normal inspection of the chest Resp: Effort & Inspection: normal respiratory effort Auscultation: clear to auscultation bilaterally Cardio: Jugular venous distension: no JVD Rate: regular rate Rhythm: r egular rhythm GI: Inspection: Yes normal to inspection Palpation (GI): Soft to palpation, not firm, nontender and no guarding Percussion: Yes normal to percussion Skin: General skin exam: no rashes or lesions noted and elasticity normal Neuro: General: patient oriented x3 Course Reevaluation(s) Reevaluation #1: On re-examination she is doing well CT head C-spine negative for acute fracture anticipate discharge Time: 12:57 Reevaluation #2: X-ray of the pelvis showed a minimally displaced right pubic fracture we will get PT eval, also we will speak with ortho Time: 14:19 Reevaluation #3: Spoke with the ortho toe-touch weight-bearing, follow-up in 2 weeks, however the patient failed PT will need rehab. Seen by manager of case management Time: 15:57 Additional Reevaluation(s): signd out to Dr Bui Medications Administered Discontinued Medications Generic Name Dose Route Start Last Admin Trade Name Freq PRN Reason Stop Dose Admin Acetaminophen 975 mg 06/22/24 12:59 06/22/24 13:11 Acetaminophen 325 Mg Tablet PO 06/22/24 13:00 975 mg ONCE ONE Administration Medical Decision Making Medical Decision Making [facility] Narrative: Patient presented to the emergency room after a fall in the PACU sent here for evaluation of the head injury we will obtain CT Differential Diagnosis Differential Diagnoses: The differential diagnosis associated with the presentation includes Subdural hematoma/epidural hematoma/cervical spine fracture Admission/Observation Consideration of admission/observation: Escalation of care including admission/observation considered Lab Data 06/22/24 15:24 06/22/24 15:24 Labs: Lab Results 06/22/24 Range/Units 15:24 WBC 11.4 H (4.8-10.8) X10*3/uL RBC 3.52 L (4.20-5.50) X10*6/uL Hgb 10.5 L (12.0-16.0) g/dl Hct 33.0 L (37.0-47.0) % MCV 93.8 (80.0-98.0) fL MCH 29.8 (27.0-33.0) pg MCHC 31.8 (31.0-35.0) g/dl RDW 15.0 (11.0-16.0) % Plt Count 223 (160-400) X10*3/uL MPV 10.0 (9.4-12.3) fL Immature Gran % (Auto) 0.4 (0.0-0.4) % Neut % (Auto) 76.5 H (45-73) % Lymph % (Auto) 13.5 L (20-40) % Mcclain % (Auto) 8.5 (2-11) % Eos % (Auto) 0.4 (0-4) % Baso % (Auto) 0.7 (0-2) % Lymph # (Auto) 1.5 (1.2-4.9) X10*3/uL Mcclain # (Auto) 1.0 (0.1-1.2) X10*3/uL Eos # (Auto) 0.1 (0.0-0.4) X10*3/uL Baso # (Auto) 0.1 (0.0-0.2) X10*3/uL Abs Immat Gran (auto) 0.05 H (0.00-0.03) X10*3/uL Absolute Neuts (auto) 8.7 H (2.0-8.3) x10*3/uL Absolute Nucleated RBC 0.000 (0.0-0.012) X10*3/uL Nucleated RBC % (auto) 0.0 (0.0-0.2) /100WBC Sodium 145 (135-145) mmol/L Potassium 4.1 (3.3-5.1) mmol/L Chloride 109 H (96-108) mmol/L Carbon Dioxide 24 (22-29) mmol/L Anion Gap 16 (12-20) BUN 20 H (9-16) mg/dL Creatinine 1.18 (0.5-1.4) mg/dL Estim Creat Clear Calc 45.7 Estimated GFR 45 Random Glucose 121 H (60-115) mg/dL Calcium 9.1 (8.4-10.2) mg/dL Total Bilirubin 0.3 (0.0-1.0) mg/dL AST 24 (5-31) U/L ALT 32 H (0-31) U/L Alkaline Phosphatase 141 H (39-117) U/L Total Protein 6.3 L (6.5-8.0) g/dL Albumin 4.0 (3.5-5.0) g/dL Independent Interpretation I performed an independent interpretation of an: CT Scan Interpretation: No acute fracture Radiology Impression Discussion of test interpretation with radiology: I have reviewed the radiologist's reading. Radiologist Impression: beth fissure. No septations or intraluminal hyperdensity or nodular components. No acute intracranial hemorrhage. No hydrocephalus. No herniation. Kowalski-white matter differentiation is normal. Posterior cranial fossa contents demonstrated no acute intracranial hemorrhage or gross masses. Sellar/suprasellar region demonstrated no gross masses or hemorrhage. Craniocervical junction is intact. No air-fluid levels in the included paranasal sinuses. poor pneumatization of the frontal sinuses. There is hyperostosis frontalis. Tympanic cavities and mastoid cells are aerated CT/CT head/brain wo IV con IMPRESSION: No acute fracture, bony calvarium. No acute intracranial hemorrhage. 4.8 cm simple arachnoid cyst, right middle cranial fossa/sylvian fissure. Stable. Electronically signed by: Roger Branham MD 06/22/2024 12:37 PM [facility] Discharge Plan Discharge Clinical Impression: Head injury Qualifiers: Encounter type: initial encounter Qualified Code(s): S09.90XA - Unspecified injury of head, initial encounter Fracture of pubic ramus Qualifiers: Encounter type: initial encounter Fracture type: closed Laterality: right Q ualified Code(s): S32.591A - Other specified fracture of right pubis, initial encounter for closed fracture Prescriptions: No Action sennosides [Senna Lax] 8.6 mg Tablet 8.6 mg PO DAILY 30 Days Qty: 30 0RF acetaminophen 325 mg Tablet 650 mg PO BID 30 Days Qty: 120 0RF trazodone 50 mg Tablet 50 mg PO BEDTIME MRX1 PRN (Reason: Insomnia) 30 Days Qty: 30 0RF polyethylene glycol 3350 17 gram Powder In Packet 17 g PO DAILY 30 Days Qty: 30 0RF clozapine 100 mg Tablet 100 mg PO DAILY 30 Days Qty: 30 0RF clozapine 100 mg Tablet 200 mg PO BEDTIME 30 Days Qty: 60 0RF clozapine 100 mg Tablet 100 mg PO DAILY@1230 30 Days Qty: 30 0RF risperidone 3 mg Tablet 6 mg PO BID 30 Days Qty: 120 0RF lamotrigine 25 mg Tablet 50 mg PO BID 30 Days Qty: 120 0RF levothyroxine 75 mcg Tablet 75 mcg PO DAILY@0600 30 Days Qty: 30 0RF famotidine 20 mg Tablet 20 mg PO DAILY 30 Days Qty: 30 0RF mirtazapine 7.5 mg Tablet 7.5 mg PO BEDTIME 30 Days Qty: 30 0RF Print Language: Andorran
[2024-06-22 10:50] VITALS: BP 144/97; PULSE 82; RESP 18; TEMP 36.4; O2SAT 97; BMI 29.0
[2024-06-22] MEDS: Acetaminophen 325 MG TABLET 975 MG PO (13:11)
[2024-06-22 15:29] LABS: MANUAL DIFF FLAG NO
[2024-06-22 15:46] LABS: Basophils Absolute Auto 0.1 X10*3/uL (0.0-0.2); Basophils Percent Auto 0.7 % (0-2); Eosinophils Absolute Auto 0.1 X10*3/uL (0.0-0.4); Eosinophils Percent Auto 0.4 % (0-4); Hemoglobin 10.5 g/dl (12.0-16.0); Imm Gran Abs Auto 0.05 X10*3/uL (0.00-0.03); Imm Gran Pct Auto 0.4 % (0.0-0.4); Lymphocytes Absolute Auto 1.5 X10*3/uL (1.2-4.9); Lymphocytes Percent Auto 13.5 % (20-40); Mean Corpuscular HGB Conc 31.8 g/dl (31.0-35.0); Mean Corpuscular Hemoglobin 29.8 pg (27.0-33.0); Mean Corpuscular Volume 93.8 fL (80.0-98.0); Monocytes Percent Auto 8.5 % (2-11); Neutrophils Absolute Auto 8.7 x10*3/uL (2.0-8.3); Neutrophils Percent Auto 76.5 % (45-73); Platelet Count 223 X10*3/uL (160-400); Red Blood Count 3.52 X10*6/uL (4.20-5.50); White Blood Count 11.4 X10*3/uL (4.8-10.8)
[2024-06-22 16:08] LABS: Alkaline Phosphatase 141 U/L (39-117); Anion Gap 16 (12-20); Bilirubin Total 0.3 mg/dL (0.0-1.0); Blood Urea Nitrogen 20 mg/dL (9-16); Calcium 9.1 mg/dL (8.4-10.2); Carbon Dioxide 24 mmol/L (22-29); Chloride 109 mmol/L (96-108); Creatinine Clr Calc Pharmacy 45.7; Estimated Glomerular Filt Rate 45; Glucose Random 121 mg/dL (60-115); Potassium 4.1 mmol/L (3.3-5.1); Sodium 145 mmol/L (135-145); Total Protein 6.3 g/dL (6.5-8.0)
[2024-06-22 16:19] LABS: Alanine Aminotransferase 32 U/L (0-31); Aspartate Amino Transferase 24 U/L (5-31)
[2024-06-22 17:09] VITALS: BP 156/88; PULSE 84; RESP 16; TEMP 36.6; O2SAT 98
--- NOTE | 2024-06-22 19:30 | PHA.MEDREC ---
Pharmacy Consult ? Medication Reconciliation Pharmacy has completed the medication reconciliation, utilized list from [facility].
--- NOTE | 2024-06-22 19:50 | PC.NURSE ---
Pt given diet and hydration per request.
[2024-06-22 20:35] VITALS: BP 129/75; PULSE 86; RESP 16; TEMP 36.6; O2SAT 97
--- NOTE | 2024-06-22 21:15 | MHC.CM.ED ---
CM met with patient at the request of Dr. Bernrado. Pt is A&Ox3. Admits to feeling groggy, s/p ECT at [facility]. States she is always groggy after her ECT treatments. Pt has longstanding hx schizophrenia and psychosis. Pt was admitted to [facility] chris psych from 03/12/24-06/15/2024. She was discharge to [facility]. She uses a cane. Independent with ADL's. Meals and housekeeping provided. Pt to have weekly ECT at [facility] after discharge. Has therapist and psychiatrist at [facility]. Therapist Eusebio Quijano and psychiatrist Sage Younger. PCP is Callum Field. Pt uses a cane. She tripped and fell after ECT today. Sustained a minimally displaced R pubic fx. Per ortho, toe touch as tolerated. Ortho will f/u in 2 weeks. Will refer to Acute Rehab. Robbin Holbrook (ex-) at bedside and requests to be called with updates. Contact card given Son, Mickie ([phone]) lives in [place]. CM will follow for safe discharge plan.
[2024-06-22 22:58] VITALS: BP 127/76; PULSE 82; RESP 16; O2SAT 95
[2024-06-22] MEDS: risperiDONE 3 MG TABLET 6 MG PO (23:00)
[2024-06-22] MEDS: Sennosides 8.6 MG TABLET PO (23:00)
[2024-06-22] MEDS: traZODone HCL 50 MG TABLET PO (23:00)
[2024-06-22] MEDS: Acetaminophen 325 MG TABLET 650 MG PO (23:00)
[2024-06-22] MEDS: Mirtazapine 7.5 MG TABLET PO (23:00)
[2024-06-22] MEDS: lamoTRIgine 25 MG TABLET 50 MG PO (23:00)
[2024-06-22] MEDS: cloZAPine 100 MG TABLET 200 MG PO (23:06)
[2024-06-22] MEDS: polyethylene glycoL 3350 17 GM POWD.PACK PO (23:08)
[2024-06-23 03:49] VITALS: RESP 16
[2024-06-23 06:00] VITALS: BP 120/75; PULSE 79; RESP 16; TEMP 36.7; O2SAT 97
[2024-06-23] MEDS: Levothyroxine Sodium 75 MCG TABLET PO (06:02)
--- NOTE | 2024-06-23 06:24 | MHC.EDTECH ---
Patient was incont.of a large amount of urine, jose-care given and complete bed change, patients clothes are being washed in the POD, belongings list completed
[2024-06-23] MEDS: risperiDONE 3 MG TABLET 6 MG PO ×2 (08:16→21:37)
[2024-06-23] MEDS: Acetaminophen 325 MG TABLET 650 MG PO ×2 (08:16→21:36)
[2024-06-23] MEDS: Famotidine 20 MG TABLET PO (08:16)
[2024-06-23] MEDS: lamoTRIgine 25 MG TABLET 50 MG PO ×2 (08:16→21:36)
--- NOTE | 2024-06-23 08:43 | MHC.CM.ED ---
Addendum entered by Marina Frausto 06/23/24 11:56: No acute rehab bed offers at this time. Referral broadcasted to all facilities within 25 miles of patient's home that are contracted with patient's insurance. [facility] a bed. [facility] and [facility] are reviewing. Attempted to meet with patient to discuss bed options. Patient currently sleeping. Spoke with patient's ex-, Robibn, via telephone at [phone]. [facility] aware and will obtain insurance auth and [facility] PASRR Level 2 per their company policy. Original Note: Patient remains in ER. [facility] are unable to offer a bed. Waiting to hear from To. Continue to monitor for d/c needs.
[2024-06-23 09:31] LABS: Influenza A PCR NEGATIVE (Negative); Influenza B PCR NEGATIVE (Negative); Resp Syncy Virus RNA Qual PCR NEGATIVE (Negative); SARS COV2 PCR INHOUSE NEGATIVE (Negative)
[2024-06-23] MEDS: cloZAPine 100 MG TABLET PO ×2 (09:32→12:39)
[2024-06-23] MEDS: oxyCODONE HCl Immed Release 5 MG TABLET PO (10:44)
[2024-06-23 12:43] VITALS: BP 121/76; PULSE 78; RESP 14; O2SAT 96
--- NOTE | 2024-06-23 16:25 | MHC.CM.ED ---
Insurance auth has been obtained. Patient can leave tomorrow at 10am. [facility] booked. Med nec with chart. Patient, ex Christy Siegel RN and Cathy HESS aware. Continue to monitor for d/c needs.
[2024-06-23 17:14] VITALS: BP 117/80; PULSE 82; RESP 20; TEMP 36.9; O2SAT 97
[2024-06-23 20:44] VITALS: BP 123/83; PULSE 86; RESP 20; TEMP 36.8; O2SAT 96
[2024-06-23] MEDS: Sennosides 8.6 MG TABLET PO (21:36)
[2024-06-23] MEDS: Mirtazapine 7.5 MG TABLET PO (21:36)
[2024-06-23] MEDS: polyethylene glycoL 3350 17 GM POWD.PACK PO (21:36)
[2024-06-23] MEDS: cloZAPine 100 MG TABLET 200 MG PO (21:37)
[2024-06-23] MEDS: traZODone HCL 50 MG TABLET PO (21:37)
[2024-06-23 23:53] VITALS: BP 109/69; PULSE 83; RESP 16; TEMP 36.9; O2SAT 95
[2024-06-24] MEDS: Levothyroxine Sodium 75 MCG TABLET PO (05:47)
[2024-06-24 05:50] VITALS: BP 129/73; PULSE 81; RESP 16; TEMP 36.8; O2SAT 96
--- NOTE | 2024-06-24 06:33 | PC.NURSE ---
pt incont of large amount of urine, assist with washing, clean bed and gown
[2024-06-24 08:08] VITALS: BP 101/66; PULSE 91; RESP 18; TEMP 36.7; O2SAT 97
[2024-06-24] MEDS: risperiDONE 3 MG TABLET 6 MG PO (08:09)
[2024-06-24] MEDS: Acetaminophen 325 MG TABLET 650 MG PO (08:09)
[2024-06-24] MEDS: lamoTRIgine 25 MG TABLET 50 MG PO (08:10)
[2024-06-24] MEDS: Famotidine 20 MG TABLET PO (08:10)
--- NOTE | 2024-06-24 09:15 | MHC.CM.ED ---
Patient remains in ER. Will d/c to [facility] via BLS at 10am. Patient has ECT scheduled for Thursday 06/29 at [facility]. Continue to monitor for d/c needs.
[2024-06-24] MEDS: cloZAPine 100 MG TABLET PO (09:26)
--- NOTE | 2024-06-24 09:38 | PC.NURSE ---
Pt is returning to [facility]. CM coordinated return. [facility] arrives for transport. Report given to EMS and care of Pt relinquished to [facility].
--- NOTE | 2024-06-24 09:51 | PC.NURSE ---
Call placed to [facility] for transfer report. Spoke with VANESSA Ventura, RN to RN report given. Audrey given opportunity for questions and all questions answered to satisfaction.
[2024-06-24 09:52] VITALS: BP 101/66; PULSE 91; RESP 18; TEMP 36.7; O2SAT 97
== END 2024-06-24 09:53 ==
PROVIDERS: Emergency Medicine; Physician Assistant Medical; Emergency Provider Emergency Medicine Emergency Medical Services; PCP Family Medicine
DX: S09.90XA Unspecified injury of head, initial encounter (principal); S32.511A Fracture of superior rim of right pubis, initial encounter for closed fracture; S32.591A Other specified fracture of right pubis, initial encounter for closed fracture; W18.39XA Other fall on same level, initial encounter; E11.22 Type 2 diabetes mellitus with diabetic chronic kidney disease; I12.9 Hypertensive chronic kidney disease with stage 1 through stage 4 chronic kidney disease, or unspecified chronic kidney disease; F20.9 Schizophrenia, unspecified; F39 Unspecified mood [affective] disorder; N18.9 Chronic kidney disease, unspecified; E78.5 Hyperlipidemia, unspecified; Z87.891 Personal history of nicotine dependence; Y93.89 Activity, other specified; Y92.238 Other place in hospital as the place of occurrence of the external cause; Y99.9 Unspecified external cause status; Z79.899 Other long term (current) drug therapy; Z03.818 Encounter for observation for suspected exposure to other biological agents ruled out
CPT/HCPCS: 0241U; 36415; 70450; 72125; 72192; 73502; 80053; 85025; 90870; 97161; 99284; 99285; 99499; J0330; J2405

== ENCOUNTER → 2024-06-22 10:35 | Outpatient (BNV) | payer MEDICARE, MEDICAID, SELFPAY | PROVIDERS: Emergency Provider Emergency Medicine; Visit Provider Radiology Diagnostic Radiology | DX: S32.511A Fracture of superior rim of right pubis, initial encounter for closed fracture (principal); M47.812 Spondylosis without myelopathy or radiculopathy, cervical region; G93.0 Cerebral cysts | CPT/HCPCS: 70450; 72125; 72192; 73502 ==

== ENCOUNTER 2024-07-03 09:49 | Outpatient (REF) | payer MEDICARE, MEDICAID, SELFPAY ==
--- NOTE | ~2024-07-03 | XR_ITS ---
EXAMINATION: XR PELVIS 1-2 VIEWS HISTORY: M25.559 - Pain in unspecified hip COMPARISON: Comparison is made with the prior examination dated 06/22/2024. FINDINGS: A single AP view of the pelvis is submitted. Again seen are minimally displaced fractures of the right superior and inferior pubic rami. The fracture lines remain visible. The hip joint spaces are preserved. There are vascular calcifications. XR/XR pelvis 1-2V IMPRESSION: Minimally displaced fractures of the right superior and inferior pubic rami. Electronically signed by: Brayden Pa MD 07/03/2024 12:48 PM EDT
== END 2024-07-03 09:50 | disposition home or self-care (01) ==
LOC: HO.HOSX 09:49
PROVIDERS: PCP Family Medicine; Visit Provider Physician Assistant
DX: S32.511D Fracture of superior rim of right pubis, subsequent encounter for fracture with routine healing (principal); S92.591D Other fracture of right lesser toe(s), subsequent encounter for fracture with routine healing; Z96.651 Presence of right artificial knee joint
CPT/HCPCS: 72170; 99202

== ENCOUNTER 2024-07-03 09:49 | Outpatient (AMB) | payer MEDICARE, MEDICAID, SELFPAY ==
--- NOTE | 2024-07-03 10:10 | MHC.OFFVIS ---
Intake Visit Reasons: ED f/u pubic rami fx Intake Note: Deedee is a 74 year old female who presents today with son for a evaluation of her pubic rami fx, DOI 06/22/24. Hx of right TKA on 2021. Patient reports she had a fall which lead her to the injury. She states she is feeling a lot of soreness and very uncomfortable to sit. Allergies trifluoperazine [From Stelazine] Allergy (Verified 07/03/24 10:17) Unknown HPI HPI ED f/u pubic rami fx: Details: Ms. Holbrook is a 74-year-old female who presents to the office today for evaluation of right superior and inferior pubic rami fractures. She is accompanied at today's visit by her son. She reports that on 06/22/2024 she was receiving ECT treatment here at the hospital and after her treatment she went to stand and unfortunately fell onto her right hip and buttocks. During the fall she also hit her head. She was sent to the emergency department for evaluation and treatment. A CT scan was obtained of the head and C-spine which were negative for acute fracture or acute bleed. An x-ray of the hip and pelvis was also performed and she was found to have right superior and inferior pubic rami fractures. Orthopedics was consulted for weight-bearing status and was recommended toe-touch weight-bearing with a walker. She is currently residing at [facility]. [facility] Medical History Diverticulosis Schizophrenia CKD (chronic kidney disease) Hyperlipidemia Type 2 diabetes mellitus Hypothyroidism HTN (hypertension) GERD (gastroesophageal reflux disease) Mood disorder Social History Household Members: None Household Members Other:: Lives at [facility] Housing: Assisted Living Facility Do you presently have visiting nurse or other home services: Yes Alcohol intake: current Patient Tobacco Use Status: Former Tobacco user Tobacco use type: Cigarette Cigarette Packs Per Day: 3 Cigarettes Per Day: 60.0 Years Smoked: 16 Second Hand Smoke Exposure: No service: No Sexual orientation: Straight/Heterosexual Review of Systems Const All systems reviewed & are unremarkable except as noted in HPI and below Physical Exam Const General: cooperative, healthy appearing and no acute distress Resp Effort & Inspection: normal respiratory effort and able to speak in complete sentences Cardio Rate: regular rate Peripheral pulses: Peripheral pulses 2+ throughout Skin Lesions: no lesions Rashes: no rashes Extrem Other: Right hip: Normal to inspection. No ecchymosis, erythema, or edema. Full hip ROM in all planes. No tenderness to palpation over the greater trochanteric bursa. Able to perform straight leg raise. NVI. Assessment & Plan Assessment & Plan (1) Fracture of superior ramus of right pubis: Code(s): S32.511A - Fracture of superior rim of right pubis, initial encounter for closed fracture Category: Medical (2) Fracture of right inferior pubic ramus: Code(s): S32.591A - Other specified fracture of right pubis, initial encounter for closed fracture Category: Medical Plan Ms. Holbrook is a 74-year-old female who presents to the office today for evaluation of right superior and inferior pubic rami fractures. She is accompanied at today's visit by her son. She reports that on 06/22/2024 she was receiving ECT treatment here at the hospital and after her treatment she went to stand and unfortunately fell onto her right hip and buttocks. During the fall she also hit her head. She was sent to the emergency department for evaluation and treatment. A CT scan was obtained of the head and C-spine which were negative for acute fracture or acute bleed. An x-ray of the hip and pelvis was also performed and she was found to have right superior and inferior pubic rami fractures. Orthopedics was consulted for weight-bearing status and was recommended toe-touch weight-bearing with a walker. She is currently residing at [facility]. While the office today new x-rays were obtained and re demonstrated the superior and inferior pubic rami fractures. The patient should remain toe-touch weight-bearing for 6 weeks with the use of a walker. She can return back to her ECT treatments. This message was also relayed to Dr. Krishna and the patient was placed back on the scheduled to begin her treatments again on Saturday. She will follow up with Orthopedics in 6 weeks with repeat x-rays, sooner if needed. X-rays of the right hip and pelvis which were obtained while in the office today and were reviewed by me, Lolis Parks PA-C, revealed redemonstration of superior and inferior pubic rami fractures on the right. Orders: Orders XR pelvis 1-2V Today M25.559 - Pain in unspecified hip Coding Level of Care Code New Pt Level 4 (00219) Diagnoses Fracture of superior ramus of right pubis S32.511A Fracture of right inferior pubic ramus S32.591A
== END 2024-07-03 10:59 | disposition home or self-care (01) ==
LOC: HO.HOS 09:49
PROVIDERS: PCP Family Medicine; Visit Provider Physician Assistant
DX: S32.511A Fracture of superior rim of right pubis, initial encounter for closed fracture (principal); S32.591A Other specified fracture of right pubis, initial encounter for closed fracture
CPT/HCPCS: 99204

== ENCOUNTER → 2024-07-03 10:03 | Outpatient (BNV) | payer MEDICARE, MEDICAID, SELFPAY | PROVIDERS: PCP Family Medicine; Visit Provider Radiology Diagnostic Radiology | DX: M25.559 Pain in unspecified hip (principal) | CPT/HCPCS: 72170 ==

== ENCOUNTER 2024-07-06 06:07 | Day surgery (SDC) | payer MEDICARE, MEDICAID, SELFPAY ==
[2024-07-06] VITALS (9 sets, daily range): BP systolic 124–150; BP diastolic 76–92; PULSE 76–94; RESP 16–18; TEMP 36.3–36.7; O2SAT 94–99; BMI 28.4
--- NOTE | 2024-07-06 06:42 | P.CONAN_ITS ---
[facility] Active Problems Active Problems: All Active Problems Fracture of right inferior pubic ramus (Acute) Fracture of superior ramus of right pubis (Acute) Arachnoid cyst (Acute) Diverticulosis (Chronic) Schizophrenia (Acute) Past Medical History Medical History Diverticulosis Schizophrenia CKD (chronic kidney disease) Hyperlipidemia Type 2 diabetes mellitus Hypothyroidism HTN (hypertension) GERD (gastroesophageal reflux disease) Mood disorder Family History Family history of problems with anesthesia: No Surgical History History of Problems with Anesthesia: No Social History Social History Household Members: None Household Members Other:: Lives at [facility] Housing: Assisted Living Facility Do you presently have visiting nurse or other home services: Yes Alcohol intake: current Patient Tobacco Use Status: Former Tobacco user Tobacco use type: Cigarette Cigarette Packs Per Day: 3 Cigarettes Per Day: 60.0 Years Smoked: 16 Second Hand Smoke Exposure: No Advance Directives: No Advance Directives Information Provided: Yes service: No Sexual orientation: Straight/Heterosexual Meds Allergies Allergy/AdvReac Type Severity Reaction Status Date / Time trifluoperazine Allergy Unknown Verified 07/03/24 10:17 [From Stelazine] Active Medications: Current Medications Lactated Ringer's (Lr) 1,000 mls @ 50 mls/hr IVCONT .Q20H YURY Naloxone HCl (Naloxone Hcl 0.4 Mg/Ml Vial) 0.04 mg IVPUSH Q5M PRN PRN Reason: Excessive sedation or RR < 8 Home Medications ?Medication ?Instructions ?Recorded ?Confirmed ?Last Taken ?Type acetaminophen 325 mg tablet 650 mg PO Q6H PRN pain/fever 06/22/24 06/22/24 Unknown History hydroxyzine HCl 25 mg tablet 25 mg PO Q6H PRN Anxiety 06/22/24 06/22/24 Unknown History polyethylene glycol 3350 17 gram 17 g PO BEDTIME 06/22/24 06/22/24 06/21/24 20:00 History oral powder packet polyethylene glycol 3350 17 gram 17 g PO DAILY PRN Constipation 06/22/24 06/22/24 Unknown History oral powder packet sennosides 8.6 mg tablet (Senna 8.6 mg PO BEDTIME 06/22/24 06/22/24 06/21/24 20:00 History Lax) sennosides 8.6 mg tablet (senna) 8.6 mg PO DAILY PRN Constipation 06/22/24 06/22/24 Unknown History trazodone 50 mg tablet 50 mg PO BEDTIME 06/22/24 06/22/24 06/21/24 20:00 History trazodone 50 mg tablet 50 mg PO BEDTIME PRN Insomnia 06/22/24 06/22/24 Unknown History bisacodyl 10 mg rectal suppository 10 mg TX DAILY PRN 07/03/24 Unknown History (Dulcolax (bisacodyl)) magnesium hydroxide 400 mg/5 mL 5 ml PO DAILY PRN 07/03/24 Unknown History oral suspension (Milk of Magnesia) sennosides 8.6 mg tablet (Senna 8.6 mg PO BEDTIME 07/03/24 Unknown History Lax) sodium phosphates 19 gram-7 118 ml TX DAILY PRN 07/03/24 Unknown History gram/118 mL enema (Fleet Enema) Exam Height,Weight and Vital Signs: Height 5 ft 6 in Weight 79.832 kg Last Vital Signs Temp 98.1 F 07/06/24 06:34 Pulse 77 07/06/24 06:34 Resp 16 07/06/24 06:34 BP 140/78 H 07/06/24 06:34 Pulse Ox 94 07/06/24 06:34 O2 Del Method Room Air 07/06/24 06:34 Airway Mallampati Class: II TM Dist: >3cm Neck ROM: Full Partial: Upper Heart: rrr Lungs: cta Assessment and Plan Assessment Anesthesia Assessment: Anesthesia Plan Discussed and Chart Reviewed Final Anesthetic Review Family History of Problems with Anesthesia: No History of Problems with Anesthesia: No NPO: Yes ASA Class: III Final Preanesthetic Review: No Changes in Pt Med Stat, Meds/Allgs Chart Reviewed and Consent Obtained/Reviewed Patient Risk: Intermediate Procedure Risk: Intermediate Anesthetic Plan Anesthetic Plan: GA Disposition: Standard PACU
[2024-07-06] MEDS: Lactated Ringers 1,000 ML 50 ML IVCONT (06:49)
--- NOTE | 2024-07-06 07:11 | MHC.SHP ---
Pre-Procedural Eval Section A - 24 Hr Update-Section A only Date of Service: 07/06/24 The patient is an INPATIENT: No Section B - Complete if H&P > 30 days Chief Complaint: Major depressive disorder, recurrent, severe with Details of Present Illness: hx psychotic dep doing well d/c from inpt no si marked dec hallucinations Present Medications: see Short Stay Collaborative assessment Allergies: Allergies Allergy/AdvReac Type Severity Reaction Status Date / Time trifluoperazine Allergy Unknown Verified 07/03/24 10:17 [From Adrian] Review of Systems Sugical H&P ROS: Negative: Cardiovascular, Respiratory and Neurological and Yes, Specify: Psychiatric (feels good no si) and Musculoskeletal (s/p pelvic fx) Exam Surgical H&P Exam: Normal: Heart (rr ), Normal: Lungs (clear) and Normal: Neurological Exam Comment: s/p pelvic fx see ortho note Plan Diagnosis/Plan: Unchanged I have reviewed the history and physical and performed a pertinent physical examination on my patient. No changes have occurred unless specified. Time Spent With Patient Time: Total time managing care of this patient today ____ minutes.
--- NOTE | 2024-07-06 07:14 | P.PCN_ITS ---
ECT Procedure Note Diagnosis/Treatment Date of Service: 07/06/24 Diagnosis: Schizoaffective Disorder Previous ECT Date: 06/22/24 Current Treatment Number: 13 Treatment: Series Interval Clinical Notes: Patient denies intrusive christian commands or thoughts of self-harm. Alert. Patient is status post pelvic fracture had fallen while getting dressed in the PACU 2 weeks ago. Was seen by ortho who has no concerns regarding patient continuing. She is temporarily in a short-term rehab setting. Patient and family have wanted to continue treatment given how stabilizing it has been ECT completed bifrontal no difficulties noted Time: Total time managing care of this patient today _30___ minutes. ECT Settings Device: THYMATRON DGx Electrode Placement: Bifrontal Program/Pulse Width: 0.50 Energy Percent: 100 Seizure Duration By EEG (in seconds): 33 Medications Administration General Anesthetic: Etomidate (12) Muscle Relaxant: Succinylcholine (80) Ancillary Medications Anti-emetics: Zofran - Pre ECT Airway Management Airway Management: Bag Mask Ventilation Treatment Recommendations No Changes Recommended: No change Notes: Follow-up treatment 1 week staff patient and family are all aware of pelvic fracture and possible risks patient tolerated treatment well Pt Tolerated Procedure w/o Issue: Yes
== END 2024-07-06 09:45 | disposition home or self-care (01) ==
PROVIDERS: PCP Family Medicine; Visit Provider Psychiatry & Neurology Psychiatry
PROC: (CPT 90870; principal; 2024-07-06 07:00)
DX: F25.9 Schizoaffective disorder, unspecified (principal); F39 Unspecified mood [affective] disorder; E11.22 Type 2 diabetes mellitus with diabetic chronic kidney disease; I12.9 Hypertensive chronic kidney disease with stage 1 through stage 4 chronic kidney disease, or unspecified chronic kidney disease; N18.9 Chronic kidney disease, unspecified; Z87.81 Personal history of (healed) traumatic fracture; Z91.81 History of falling; Z79.899 Other long term (current) drug therapy; Z88.8 Allergy status to other drugs, medicaments and biological substances; Z87.891 Personal history of nicotine dependence
CPT/HCPCS: 90870; J0330; J1596; J1805; J2405; J2704

== ENCOUNTER → 2024-07-06 06:07 | Outpatient (BNV) | payer MEDICARE, MEDICAID, SELFPAY | PROVIDERS: PCP Family Medicine; Visit Provider Psychiatry & Neurology Psychiatry | DX: F33.3 Major depressive disorder, recurrent, severe with psychotic symptoms (principal) | CPT/HCPCS: 90870 ==

== ENCOUNTER 2024-07-13 06:00 | Day surgery (SDC) | payer MEDICARE, MEDICAID, SELFPAY ==
[2024-07-13] VITALS (8 sets, daily range): BP systolic 116–180; BP diastolic 68–97; PULSE 73–87; RESP 16; TEMP 36.3; O2SAT 93–95; BMI 27.4
--- NOTE | 2024-07-13 06:54 | MHC.SHP ---
Pre-Procedural Eval Section A - 24 Hr Update-Section A only Date of Service: 07/13/24 The patient is an INPATIENT: No Changes since office visit: No Cold of Flu in the past 2 weeks, No New Medical Problems, No Changes in Medication and No Patient answered all questions The patient has been examined within 24 hours of the surgical procedure. The History & Physical has been completed within 30 days and I have reviewed it.: Yes Section B - Complete if H&P > 30 days Chief Complaint: Major depressive disorder, recurrent, severe with Allergies: Allergies Allergy/AdvReac Type Severity Reaction Status Date / Time trifluoperazine Allergy Unknown Verified 07/03/24 10:17 [From Adrian] Plan I have reviewed the history and physical and performed a pertinent physical examination on my patient. No changes have occurred unless specified. Time Spent With Patient Time: Total time managing care of this patient today ____ minutes.
[2024-07-13] MEDS: Lactated Ringers 1,000 ML 50 ML IVCONT (07:47)
--- NOTE | 2024-07-13 08:00 | HO.ECTPROC ---
ECT Procedure Note Diagnosis/Treatment Date of Service: 07/13/24 Diagnosis: Schizoaffective Disorder Previous ECT Date: 07/06/24 Current Treatment Number: 14 Treatment: Maintenance Interval Clinical Notes: The patient reported euthymia, no changes on her mental status. She reported that she has pain after her pelvic fracture. ECT done as usual, no complications, woke up welll. Time: Total time managing care of this patient today __30__ minutes. ECT Settings Device: THYMATRON DGx Electrode Placement: Bifrontal Program/Pulse Width: 0.50 Energy Percent: 100 Seizure Duration By EEG (in seconds): 20 By Motor Observation (in seconds): 15 Medications Administration General Anesthetic: Etomidate (12) Muscle Relaxant: Succinylcholine (80) Ancillary Medications Anti-emetics: Zofran - Pre ECT Airway Management Airway Management: Bag Mask Ventilation Treatment Recommendations No Changes Recommended: No change Pt Tolerated Procedure w/o Issue: Yes
== END 2024-07-13 10:31 | disposition home or self-care (01) ==
PROVIDERS: PCP Family Medicine; Visit Provider Psychiatry & Neurology Psychiatry
PROC: (CPT 90870; principal; 2024-07-13 07:00)
DX: F25.9 Schizoaffective disorder, unspecified (principal); F39 Unspecified mood [affective] disorder; E11.22 Type 2 diabetes mellitus with diabetic chronic kidney disease; I12.9 Hypertensive chronic kidney disease with stage 1 through stage 4 chronic kidney disease, or unspecified chronic kidney disease; N18.9 Chronic kidney disease, unspecified; E78.5 Hyperlipidemia, unspecified; E03.9 Hypothyroidism, unspecified; G93.0 Cerebral cysts; Z87.81 Personal history of (healed) traumatic fracture; Z91.81 History of falling; Z79.899 Other long term (current) drug therapy; Z88.8 Allergy status to other drugs, medicaments and biological substances; Z87.891 Personal history of nicotine dependence
CPT/HCPCS: 90870; J0330; J2405

== ENCOUNTER → 2024-07-13 06:00 | Outpatient (BNV) | payer MEDICARE, MEDICAID, SELFPAY | PROVIDERS: PCP Family Medicine; Visit Provider Psychiatry & Neurology Psychiatry | DX: F33.2 Major depressive disorder, recurrent severe without psychotic features (principal) | CPT/HCPCS: 90870 ==

== ENCOUNTER 2024-07-27 06:10 | Day surgery (SDC) | payer MEDICARE, MEDICAID, SELFPAY ==
[2024-07-27] VITALS (7 sets, daily range): BP systolic 123–158; BP diastolic 77–91; PULSE 78–84; RESP 14–18; TEMP 36.4–37; O2SAT 94–97; BMI 28.4
[2024-07-27] MEDS: Lactated Ringers 1,000 ML 100 ML IVCONT (06:47)
--- NOTE | 2024-07-27 06:59 | P.CONAN_ITS ---
[facility] Active Problems Active Problems: All Active Problems Fracture of right inferior pubic ramus (Acute) Fracture of superior ramus of right pubis (Acute) Arachnoid cyst (Acute) Diverticulosis (Chronic) Schizophrenia (Acute) Past Medical History Medical History Diverticulosis Schizophrenia CKD (chronic kidney disease) Hyperlipidemia Type 2 diabetes mellitus Hypothyroidism HTN (hypertension) GERD (gastroesophageal reflux disease) Mood disorder Family History Family history of problems with anesthesia: No Surgical History History of Problems with Anesthesia: No Social History Social History Household Members: None Household Members Other:: Lives at [facility] Housing: Assisted Living Facility Do you presently have visiting nurse or other home services: Yes Alcohol intake: current Patient Tobacco Use Status: Former Tobacco user Tobacco use type: Cigarette Cigarette Packs Per Day: 3 Cigarettes Per Day: 60.0 Years Smoked: 16 Second Hand Smoke Exposure: No Advance Directives: No Advance Directives Information Provided: Yes service: No Sexual orientation: Straight/Heterosexual Meds Allergies Allergy/AdvReac Type Severity Reaction Status Date / Time trifluoperazine Allergy Unknown Verified 07/03/24 10:17 [From Stelazine] Active Medications: Current Medications Lactated Ringer's (Lr) 1,000 mls @ 100 mls/hr IVCONT .Q10H YURY Last Admin: 07/27/24 06:47 Dose: 100 mls/hr Home Medications ?Medication ?Instructions ?Recorded ?Confirmed ?Last Taken ?Type acetaminophen 325 mg tablet 650 mg PO Q6H PRN pain/fever 06/22/24 06/22/24 Unknown History hydroxyzine HCl 25 mg tablet 25 mg PO Q6H PRN Anxiety 06/22/24 06/22/24 Unknown History polyethylene glycol 3350 17 gram 17 g PO BEDTIME 06/22/24 06/22/24 06/21/24 20:00 History oral powder packet polyethylene glycol 3350 17 gram 17 g PO DAILY PRN Constipation 06/22/24 06/22/24 Unknown History oral powder packet sennosides 8.6 mg tablet (Senna 8.6 mg PO BEDTIME 06/22/24 06/22/24 06/21/24 20:00 History Lax) sennosides 8.6 mg tablet (senna) 8.6 mg PO DAILY PRN Constipation 06/22/24 06/22/24 Unknown History trazodone 50 mg tablet 50 mg PO BEDTIME 06/22/24 06/22/24 06/21/24 20:00 History trazodone 50 mg tablet 50 mg PO BEDTIME PRN Insomnia 06/22/24 06/22/24 Unknown History bisacodyl 10 mg rectal suppository 10 mg [place] DAILY PRN 07/03/24 Unknown History (Dulcolax (bisacodyl)) magnesium hydroxide 400 mg/5 mL 5 ml PO DAILY PRN 07/03/24 Unknown History oral suspension (Milk of Magnesia) sennosides 8.6 mg tablet (Senna 8.6 mg PO BEDTIME 07/03/24 Unknown History Lax) sodium phosphates 19 gram-7 118 ml [place] DAILY PRN 07/03/24 Unknown History gram/118 mL enema (Fleet Enema) Exam Height,Weight and Vital Signs: Height 5 ft 6 in Weight 79.832 kg Last Vital Signs Temp 97.6 F 07/27/24 06:35 Pulse 79 07/27/24 06:35 Resp 16 07/27/24 06:35 BP 123/77 07/27/24 06:35 Pulse Ox 94 07/27/24 06:35 O2 Del Method Room Air 07/27/24 06:35 Airway Mallampati Class: II Partial: Upper Loose/Missing/Broken Teeth: Yes and Upper Heart: RRR Lungs: CTA Assessment and Plan Assessment Anesthesia Assessment: Anesthesia Plan Discussed and Chart Reviewed Final Anesthetic Review Family History of Problems with Anesthesia: No History of Problems with Anesthesia: No ASA Class: II and III Final Preanesthetic Review: Meds/Allgs Chart Reviewed, Consent Obtained/Reviewed and Anes Risks/Benef Reviewed Patient Risk: Intermediate Procedure Risk: Intermediate Anesthetic Plan Anesthetic Plan: GA Disposition: Standard PACU
--- NOTE | 2024-07-27 07:25 | MHC.SHP ---
Pre-Procedural Eval Section A - 24 Hr Update-Section A only Date of Service: 07/27/24 Section B - Complete if H&P > 30 days Chief Complaint: depression Details of Present Illness: not psychotic future oriented s/p pelvic fx Relevant Social History: None Allergies: Allergies Allergy/AdvReac Type Severity Reaction Status Date / Time trifluoperazine Allergy Unknown Verified 07/03/24 10:17 [From Stelazine] Review of Systems Sugical H&P ROS: Negative: Cardiovascular and Respiratory and Yes, Specify: Psychiatric (much dec psychoses no si) and Musculoskeletal (pelvic fx not walking) Exam Surgical H&P Exam: Normal: Heart, Normal: Lungs and Normal: Neurological Plan Diagnosis/Plan: Unchanged I have reviewed the history and physical and performed a pertinent physical examination on my patient. No changes have occurred unless specified. Time Spent With Patient Time: Total time managing care of this patient today ____ minutes.
--- NOTE | 2024-07-27 07:43 | HO.ECTPROC ---
ECT Procedure Note Diagnosis/Treatment Date of Service: 07/27/24 Diagnosis: Schizoaffective Disorder Previous ECT Date: 07/13/24 Current Treatment Number: 15 Treatment: Maintenance Interval Clinical Notes: The patient reported euthymia, no changes on her mental status. Pt denies active psychotic sx commands of self harm no c/o side effects with ect . Still in wheelchair Time: Total time managing care of this patient today ____ minutes. ECT Settings Device: THYMATRON DGx Electrode Placement: Bifrontal Program/Pulse Width: 0.50 Energy Percent: 100 Seizure Duration By EEG (in seconds): 28 Medications Administration General Anesthetic: Etomidate (12) Muscle Relaxant: Succinylcholine (80) Ancillary Medications Anti-emetics: Zofran - Pre ECT Airway Management Airway Management: Bag Mask Ventilation Treatment Recommendations Notes: consider rtlf if needed if inc sx f/u 2 wks Pt Tolerated Procedure w/o Issue: Yes
== END 2024-07-27 09:15 | disposition home or self-care (01) ==
PROVIDERS: PCP Family Medicine; Visit Provider Psychiatry & Neurology Psychiatry
PROC: (CPT 90870; principal; 2024-07-27 08:00)
DX: F25.8 Other schizoaffective disorders (principal); F39 Unspecified mood [affective] disorder; E11.22 Type 2 diabetes mellitus with diabetic chronic kidney disease; I12.9 Hypertensive chronic kidney disease with stage 1 through stage 4 chronic kidney disease, or unspecified chronic kidney disease; N18.9 Chronic kidney disease, unspecified; D64.9 Anemia, unspecified; E78.5 Hyperlipidemia, unspecified; E03.9 Hypothyroidism, unspecified; G93.0 Cerebral cysts; Z87.81 Personal history of (healed) traumatic fracture; Z91.81 History of falling; Z79.899 Other long term (current) drug therapy; Z88.8 Allergy status to other drugs, medicaments and biological substances; Z87.891 Personal history of nicotine dependence
CPT/HCPCS: 90870; J0330; J2405

== ENCOUNTER → 2024-07-27 06:10 | Outpatient (BNV) | payer MEDICARE, MEDICAID, SELFPAY | PROVIDERS: PCP Family Medicine; Visit Provider Psychiatry & Neurology Psychiatry | DX: F33.2 Major depressive disorder, recurrent severe without psychotic features (principal) | CPT/HCPCS: 90870 ==

== ENCOUNTER 2024-08-12 06:12 | Day surgery (SDC) | payer MEDICARE, MEDICAID, SELFPAY ==
[2024-08-12] VITALS (7 sets, daily range): BP systolic 119–165; BP diastolic 78–89; PULSE 76–79; RESP 14–17; TEMP 36.2–36.8; O2SAT 95–98; BMI 29.0
[2024-08-12] MEDS: Lactated Ringers 1,000 ML 50 ML IVCONT (07:05)
--- NOTE | 2024-08-12 07:26 | MHC.SHP ---
Pre-Procedural Eval Section A - 24 Hr Update-Section A only Date of Service: 08/12/24 Section B - Complete if H&P > 30 days Chief Complaint: depression Details of Present Illness: not psychotic future oriented s/p pelvic fx doing well Relevant Social History: None Allergies: Allergies Allergy/AdvReac Type Severity Reaction Status Date / Time trifluoperazine Allergy Unknown Verified 07/03/24 10:17 [From Stelazine] Review of Systems Sugical H&P ROS: Negative: Cardiovascular and Respiratory and Yes, Specify: Psychiatric (much dec psychoses no si), Musculoskeletal (pelvic fx some amb) and Integumentary Exam Surgical H&P Exam: Normal: Heart, Normal: Lungs and Normal: Neurological and Significant Findings: Extremities (5th digit inf) Plan Diagnosis/Plan: Unchanged I have reviewed the history and physical and performed a pertinent physical examination on my patient. No changes have occurred unless specified. Time Spent With Patient Time: Total time managing care of this patient today ____ minutes.
--- NOTE | 2024-08-12 07:29 | P.CONAN_ITS ---
HPI - Anesthesia Eval Consult details Narrative: 74 yo female patient for ECT PMFSH Active Problems Active Problems: All Active Problems Fracture of right inferior pubic ramus (Acute) Fracture of superior ramus of right pubis (Acute) Arachnoid cyst (Acute) Diverticulosis (Chronic) Schizophrenia (Acute) Past Medical History Medical History Diverticulosis Schizophrenia CKD (chronic kidney disease) Hyperlipidemia Type 2 diabetes mellitus Hypothyroidism HTN (hypertension) GERD (gastroesophageal reflux disease) Mood disorder Family History Family history of problems with anesthesia: No Surgical History History of Problems with Anesthesia: No Social History Social History Household Members: None Household Members Other:: Lives at [facility] Housing: Assisted Living Facility Do you presently have visiting nurse or other home services: Yes Alcohol intake: current Patient Tobacco Use Status: Former Tobacco user Tobacco use type: Cigarette Cigarette Packs Per Day: 3 Cigarettes Per Day: 60.0 Years Smoked: 16 Second Hand Smoke Exposure: No Advance Directives: No Advance Directives Information Provided: Yes service: No Sexual orientation: Straight/Heterosexual Meds Allergies Allergy/AdvReac Type Severity Reaction Status Date / Time trifluoperazine Allergy Unknown Verified 07/03/24 10:17 [From Stelazine] Active Medications: Current Medications Lactated Ringer's (Lr) 1,000 mls @ 50 mls/hr IVCONT .Q20H YURY Last Admin: 08/12/24 07:05 Dose: 50 mls/hr Home Medications ?Medication ?Instructions ?Recorded ?Confirmed ?Last Taken ?Type acetaminophen 325 mg tablet 650 mg PO Q6H PRN pain/fever 06/22/24 06/22/24 Unknown History hydroxyzine HCl 25 mg tablet 25 mg PO Q6H PRN Anxiety 06/22/24 06/22/24 Unknown History polyethylene glycol 3350 17 gram 17 g PO BEDTIME 06/22/24 06/22/24 06/21/24 20:00 History oral powder packet polyethylene glycol 3350 17 gram 17 g PO DAILY PRN Constipation 06/22/24 06/22/24 Unknown History oral powder packet sennosides 8.6 mg tablet (Senna 8.6 mg PO BEDTIME 06/22/24 06/22/24 06/21/24 20:00 History Lax) sennosides 8.6 mg tablet (senna) 8.6 mg PO DAILY PRN Constipation 06/22/24 06/22/24 Unknown History trazodone 50 mg tablet 50 mg PO BEDTIME 06/22/24 06/22/24 06/21/24 20:00 History trazodone 50 mg tablet 50 mg PO BEDTIME PRN Insomnia 06/22/24 06/22/24 Unknown History bisacodyl 10 mg rectal suppository 10 mg [place] DAILY PRN 07/03/24 Unknown History (Dulcolax (bisacodyl)) magnesium hydroxide 400 mg/5 mL 5 ml PO DAILY PRN 07/03/24 Unknown History oral suspension (Milk of Magnesia) sennosides 8.6 mg tablet (Senna 8.6 mg PO BEDTIME 07/03/24 Unknown History Lax) sodium phosphates 19 gram-7 118 ml [place] DAILY PRN 07/03/24 Unknown History gram/118 mL enema (Fleet Enema) Exam Height,Weight and Vital Signs: Height 5 ft 6 in Weight 81.647 kg Last Vital Signs Temp 98.3 F 08/12/24 06:42 Pulse 76 08/12/24 06:42 Resp 16 08/12/24 06:42 BP 119/78 08/12/24 06:42 Pulse Ox 96 08/12/24 06:42 O2 Del Method Room Air 08/12/24 06:42 Airway Mallampati Class: III (Small mouth) TM Dist: >3cm Neck ROM: Full Partial: Upper Loose/Missing/Broken Teeth: Yes (Broken tooth top left. Denies loose teeth) Heart: RRR Lungs: CTAB Assessment and Plan Assessment Anesthesia Assessment: Anesthesia Plan Discussed and Chart Reviewed Final Anesthetic Review Family History of Problems with Anesthesia: No History of Problems with Anesthesia: No NPO: Yes ASA Class: III Final Preanesthetic Review: No Changes in Pt Med Stat, Meds/Allgs Chart Reviewed, Consent Obtained/Reviewed and Anes Risks/Benef Reviewed Patient Risk: Intermediate Procedure Risk: Intermediate Anesthetic Plan Anesthetic Plan: GA Disposition: Standard PACU
--- NOTE | 2024-08-12 07:37 | HO.ECTPROC ---
ECT Procedure Note Diagnosis/Treatment Date of Service: 08/12/24 Diagnosis: Schizoaffective Disorder Current Treatment Number: Other (16) Treatment: Maintenance Interval Clinical Notes: Patient has generally been doing well denies significant psychosis no SI mood stable future oriented doing well with maintenance ECT Time: Total time managing care of this patient today ____ minutes. ECT Settings Device: THYMATRON DGx Electrode Placement: Bifrontal Program/Pulse Width: 0.50 Energy Percent: 100 Seizure Duration By EEG (in seconds): 52 Medications Administration General Anesthetic: Etomidate (12) Muscle Relaxant: Succinylcholine (80) Ancillary Medications Anti-emetics: Zofran - Pre ECT Airway Management Airway Management: Bag Mask Ventilation Treatment Recommendations No Changes Recommended: No change
== END 2024-08-12 09:01 | disposition home or self-care (01) ==
PROVIDERS: PCP Family Medicine; Visit Provider Psychiatry & Neurology Psychiatry
PROC: (CPT 90870; principal; 2024-08-12 07:00)
DX: F25.8 Other schizoaffective disorders (principal); E11.22 Type 2 diabetes mellitus with diabetic chronic kidney disease; I12.9 Hypertensive chronic kidney disease with stage 1 through stage 4 chronic kidney disease, or unspecified chronic kidney disease; N18.9 Chronic kidney disease, unspecified; D64.9 Anemia, unspecified; E78.5 Hyperlipidemia, unspecified; E03.9 Hypothyroidism, unspecified; G93.2 Benign intracranial hypertension; Z91.81 History of falling; Z87.81 Personal history of (healed) traumatic fracture; Z79.899 Other long term (current) drug therapy; Z88.8 Allergy status to other drugs, medicaments and biological substances; Z87.891 Personal history of nicotine dependence
CPT/HCPCS: 90870; J0330; J2405

== ENCOUNTER → 2024-08-12 06:12 | Outpatient (BNV) | payer MEDICARE, MEDICAID, SELFPAY | PROVIDERS: PCP Family Medicine; Visit Provider Psychiatry & Neurology Psychiatry | DX: F33.2 Major depressive disorder, recurrent severe without psychotic features (principal) | CPT/HCPCS: 90870 ==

== ENCOUNTER 2024-08-13 08:39 | Outpatient (REF) | payer MEDICARE, MEDICAID, SELFPAY ==
--- NOTE | ~2024-08-13 | XR_ITS ---
EXAMINATION: XR PELVIS 1-2 VIEWS HISTORY: M25.559 - Pain in unspecified hip COMPARISON: Comparison is made with the prior examination dated 07/03/2024. FINDINGS: A single AP view of the pelvis is submitted. Again seen are fractures of the right superior and inferior pubic rami. The fracture lines remain visible. No new fracture or dislocation is seen. The hip joint spaces are maintained. There is degenerative change of the sacroiliac joints and degenerative disc disease of the lower lumbar spine. There are vascular calcifications. XR/XR pelvis 1-2V IMPRESSION: Fractures of the right superior and inferior pubic rami remain visible. Electronically signed by: Brayden Pa MD 08/14/2024 03:46 PM EDT
== END 2024-08-13 08:40 | disposition home or self-care (01) ==
LOC: HO.HOSX 08:39
PROVIDERS: Visit Provider Physician Assistant
DX: S32.511D Fracture of superior rim of right pubis, subsequent encounter for fracture with routine healing (principal); S32.591D Other specified fracture of right pubis, subsequent encounter for fracture with routine healing
CPT/HCPCS: 72170; 99212

== ENCOUNTER 2024-08-13 14:09 | Outpatient (AMB) | payer MEDICARE, MEDICAID, SELFPAY ==
--- NOTE | 2024-08-13 14:25 | A.OFFVIS_ITS ---
Intake Visit Reasons: OV - right pubic rami fx, DOI 06/22/24 Intake Note: Deedee is a 74 year old female who presents today for a follow up visit for her fracture of right inferior pubic ramus s/p fall DOI 06/22/24. Patient reports she feels very good. States she is having lower back pain but not pelvis pain. She has been ambulating and standing on her own but no longer than 10 minutes without assistance. She uses a wheel chair or walker at home to ambulate around her room or to bathroom. She was working with therapy however she says something happened with her insurance that did not allow her to continue. Allergies trifluoperazine [From Stelazine] Allergy (Verified 08/13/24 14:31) Unknown HPI HPI OV - right pubic rami fx, DOI 06/22/24: Details: Ms. Holbrook is a 74-year-old female who presents to the office today for routine follow-up of a right superior and inferior pubic rami fractures. Date of injury was 06/22/2024. At her last appointment she was instructed to toe-touch weightbear. She has been residing at [facility] during her recovery period from this injury. She is looking to return back to [facility] which is a long- term care facility. [facility] Medical History Diverticulosis Schizophrenia CKD (chronic kidney disease) Hyperlipidemia Type 2 diabetes mellitus Hypothyroidism HTN (hypertension) GERD (gastroesophageal reflux disease) Mood disorder Social History (Updated 08/13/24 @ 14:32 by GENIE Ferguson) Household Members: None Household Members Other:: Lives at [facility] Housing: Assisted Living Facility Do you presently have visiting nurse or other home services: Yes Alcohol intake: current Patient Tobacco Use Status: Former Tobacco user Tobacco use type: Cigarette Cigarette Packs Per Day: 3 Cigarettes Per Day: 60.0 Years Smoked: 16 Second Hand Smoke Exposure: No service: No Current occupational status: retired Sexual orientation: Straight/Heterosexual Review of Systems Const All systems reviewed & are unremarkable except as noted in HPI and below Physical Exam Const General: cooperative, healthy appearing and no acute distress Resp Effort & Inspection: normal respiratory effort and able to speak in complete sentences Cardio Rate: regular rate Peripheral pulses: Peripheral pulses 2+ throughout Skin Lesions: no lesions Rashes: no rashes Extrem Other: Right hip: Normal to inspection. No ecchymosis, erythema, or edema. Full hip ROM in all planes. No tenderness to palpation over the greater trochanteric bursa. Able to perform straight leg raise. NVI. Assessment & Plan Assessment & Plan (1) Fracture of superior ramus of right pubis: Code(s): S32.511A - Fracture of superior rim of right pubis, initial encounter for closed fracture Category: Medical (2) Fracture of right inferior pubic ramus: Code(s): S32.591A - Other specified fracture of right pubis, initial encounter for closed fracture Category: Medical Plan Ms. Holbrook is a 74-year-old female who presents to the office today for routine follow-up of a right superior and inferior pubic rami fractures. Date of injury was 06/22/2024. At her last appointment she was instructed to toe-touch weightbear. She has been residing at [facility] during her recovery period from this injury. She is looking to return back to [facility] which is a long- term care facility. While in the office today, I recommended that the patient began applying 50% weight-bearing on the right lower extremity with a walker. She can progress weight-bearing by 25% each week until full weight-bearing. Should she have any increase in pain she should contact our office immediately and should stop weight-bearing. Additionally, I updated physical therapy on the weight-bearing status with a formal order as well as instructions for glute core quad strengthening and gait training with a walker. She will follow up in 6 weeks with repeat x-rays, sooner if needed. X-rays of the pelvis which were obtained while in the office today and were reviewed by me, Lolis Parks PA-C, revealed routine healing of right superior and inferior pubic rami fractures. Orders: Orders XR pelvis 1-2V Today M25.559 - Pain in unspecified hip Coding Level of Care Code Est Pt Level 3 (24058) Diagnoses Fracture of superior ramus of right pubis S32.511A Fracture of right inferior pubic ramus S32.591A
== END 2024-08-13 14:59 | disposition home or self-care (01) ==
LOC: HO.HOS 14:10
PROVIDERS: PCP Family Medicine; Visit Provider Physician Assistant
DX: S32.511D Fracture of superior rim of right pubis, subsequent encounter for fracture with routine healing (principal); S32.591D Other specified fracture of right pubis, subsequent encounter for fracture with routine healing
CPT/HCPCS: 99213

== ENCOUNTER → 2024-08-13 14:21 | Outpatient (BNV) | payer MEDICARE, MEDICAID, SELFPAY | PROVIDERS: Visit Provider Radiology Diagnostic Radiology | DX: S32.591D Other specified fracture of right pubis, subsequent encounter for fracture with routine healing (principal) | CPT/HCPCS: 72170 ==

== ENCOUNTER 2024-09-04 07:33 | Day surgery (SDC) | payer MEDICARE, MEDICAID, SELFPAY ==
[2024-09-04] VITALS (7 sets, daily range): BP systolic 130–165; BP diastolic 69–86; PULSE 77–83; RESP 14–21; TEMP 36.3–37.1; O2SAT 94–96; BMI 29.0
--- NOTE | 2024-09-04 08:30 | HO.ANESPROP2 ---
[facility] Active Problems Active Problems: All Active Problems Fracture of right inferior pubic ramus (Acute) Fracture of superior ramus of right pubis (Acute) Arachnoid cyst (Acute) Diverticulosis (Chronic) Schizophrenia (Acute) Past Medical History Medical History Diverticulosis Schizophrenia CKD (chronic kidney disease) Hyperlipidemia Type 2 diabetes mellitus Hypothyroidism HTN (hypertension) GERD (gastroesophageal reflux disease) Mood disorder Family History Family history of problems with anesthesia: No Surgical History History of Problems with Anesthesia: No Social History Social History (Updated 08/13/24 @ 14:32 by GENIE Ferguson) Household Members: None Household Members Other:: Lives at [facility] Housing: Assisted Living Facility Do you presently have visiting nurse or other home services: Yes Alcohol intake: current Patient Tobacco Use Status: Former Tobacco user Tobacco use type: Cigarette Cigarette Packs Per Day: 3 Cigarettes Per Day: 60.0 Years Smoked: 16 Second Hand Smoke Exposure: No Advance Directives: No Advance Directives Information Provided: Yes service: No Current occupational status: retired Sexual orientation: Straight/Heterosexual Meds Allergies Allergy/AdvReac Type Severity Reaction Status Date / Time trifluoperazine Allergy Unknown Verified 08/13/24 14:31 [From Stelazine] Active Medications: Current Medications Lactated Ringer's (Lr) 1,000 mls @ 50 mls/hr IVCONT .Q20H YURY Naloxone HCl (Naloxone Hcl 0.4 Mg/Ml Vial) 0.04 mg IVPUSH Q5M PRN PRN Reason: Excessive sedation or RR < 8 Home Medications ?Medication ?Instructions ?Recorded ?Confirmed ?Last Taken ?Type acetaminophen 325 mg tablet 650 mg PO Q6H PRN pain/fever 06/22/24 06/22/24 Unknown History hydroxyzine HCl 25 mg tablet 25 mg PO Q6H PRN Anxiety 06/22/24 06/22/24 Unknown History polyethylene glycol 3350 17 gram 17 g PO BEDTIME 06/22/24 06/22/24 06/21/24 20:00 History oral powder packet polyethylene glycol 3350 17 gram 17 g PO DAILY PRN Constipation 06/22/24 06/22/24 Unknown History oral powder packet sennosides 8.6 mg tablet (Senna 8.6 mg PO BEDTIME 06/22/24 06/22/24 06/21/24 20:00 History Lax) sennosides 8.6 mg tablet (senna) 8.6 mg PO DAILY PRN Constipation 06/22/24 06/22/24 Unknown History trazodone 50 mg tablet 50 mg PO BEDTIME 06/22/24 06/22/24 06/21/24 20:00 History trazodone 50 mg tablet 50 mg PO BEDTIME PRN Insomnia 06/22/24 06/22/24 Unknown History bisacodyl 10 mg rectal suppository 10 mg [place] DAILY PRN 07/03/24 Unknown History (Dulcolax (bisacodyl)) magnesium hydroxide 400 mg/5 mL 5 ml PO DAILY PRN 07/03/24 Unknown History oral suspension (Milk of Magnesia) sennosides 8.6 mg tablet (Senna 8.6 mg PO BEDTIME 07/03/24 Unknown History Lax) sodium phosphates 19 gram-7 118 ml [place] DAILY PRN 07/03/24 Unknown History gram/118 mL enema (Fleet Enema) cephalexin 500 mg capsule 500 mg PO QID 08/13/24 Unknown History Exam Airway Mallampati Class: II TM Dist: >3cm Neck ROM: Full Partial: Upper Heart: rrr Lungs: cta Assessment and Plan Assessment Anesthesia Assessment: Anesthesia Plan Discussed and Chart Reviewed Final Anesthetic Review Family History of Problems with Anesthesia: No History of Problems with Anesthesia: No NPO: Yes ASA Class: III Final Preanesthetic Review: No Changes in Pt Med Stat, Meds/Allgs Chart Reviewed and Consent Obtained/Reviewed Patient Risk: Intermediate Procedure Risk: Intermediate Anesthetic Plan Anesthetic Plan: GA Disposition: Standard PACU
[2024-09-04] MEDS: Lactated Ringers 1,000 ML 50 ML IVCONT (08:33)
--- NOTE | 2024-09-04 09:15 | MHC.SHP ---
Pre-Procedural Eval Section A - 24 Hr Update-Section A only Date of Service: 09/04/24 Section B - Complete if H&P > 30 days Chief Complaint: depression Details of Present Illness: not psychotic future oriented s/p pelvic fx doing well back at [facility] living Relevant Social History: None Allergies: Allergies Allergy/AdvReac Type Severity Reaction Status Date / Time trifluoperazine Allergy Unknown [facility]13[facility]24 14[facility]31 [facility] Review of Systems Sugical H&P ROS: Negative: Cardiovascular, Respiratory and Integumentary and Yes, Specify: Psychiatric (much dec psychoses no si no command harry) and Musculoskeletal (pelvic fx some amb walker) Exam Surgical H&P Exam: Normal: Heart, Normal: Lungs and Normal: Neurological Plan Diagnosis/Plan: Unchanged I have reviewed the history and physical and performed a pertinent physical examination on my patient. No changes have occurred unless specified. Time Spent With Patient Time: Total time managing care of this patient today ____ minutes.
--- NOTE | 2024-09-04 09:40 | HO.ECTPROC ---
ECT Procedure Note Diagnosis/Treatment Date of Service: 09/04/24 Diagnosis: Schizoaffective Disorder Previous ECT Date: 08/12/24 Current Treatment Number: Other (16) Treatment: Maintenance Interval Clinical Notes: Patient has generally been doing well denies significant psychosis no SI mood stable future oriented doing well with maintenance ECT generally now back at [facility] living Time: Total time managing care of this patient today ____ minutes. ECT Settings Device: THYMATRON DGx Electrode Placement: Bifrontal Program/Pulse Width: 0.50 Energy Percent: 100 Seizure Duration By EEG (in seconds): 52 Medications Administration General Anesthetic: Etomidate (12) Muscle Relaxant: Succinylcholine (80) Ancillary Medications Anti-emetics: Zofran - Pre ECT (4) Airway Management Airway Management: Bag Mask Ventilation Treatment Recommendations No Changes Recommended: No change Notes: Will try to extend follow-up maintenance treatment no noted cognitive impairment by the patient no SI no command to harm self Pt Tolerated Procedure w/o Issue: Yes
== END 2024-09-04 13:15 | disposition home or self-care (01) ==
PROVIDERS: PCP Family Medicine; Visit Provider Psychiatry & Neurology Psychiatry
PROC: (CPT 90870; principal; 2024-09-04 09:30)
DX: F25.8 Other schizoaffective disorders (principal); E11.22 Type 2 diabetes mellitus with diabetic chronic kidney disease; I12.9 Hypertensive chronic kidney disease with stage 1 through stage 4 chronic kidney disease, or unspecified chronic kidney disease; N18.9 Chronic kidney disease, unspecified; D64.9 Anemia, unspecified; E78.5 Hyperlipidemia, unspecified; E03.9 Hypothyroidism, unspecified; G93.2 Benign intracranial hypertension; Z91.81 History of falling; Z87.81 Personal history of (healed) traumatic fracture; Z79.899 Other long term (current) drug therapy; Z88.8 Allergy status to other drugs, medicaments and biological substances; Z87.891 Personal history of nicotine dependence
CPT/HCPCS: 90870; J0330; J2405

== ENCOUNTER → 2024-09-04 07:33 | Outpatient (BNV) | payer MEDICARE, MEDICAID, SELFPAY | PROVIDERS: PCP Family Medicine; Visit Provider Psychiatry & Neurology Psychiatry | DX: F33.2 Major depressive disorder, recurrent severe without psychotic features (principal) | CPT/HCPCS: 90870 ==

== ENCOUNTER 2024-09-18 05:53 | Day surgery (SDC) | payer MEDICARE, MEDICAID, SELFPAY ==
[2024-09-18 06:10] VITALS: BP 119/76; PULSE 86; RESP 16; TEMP 36.4; O2SAT 95; BMI 29.0
[2024-09-18] MEDS: Lactated Ringers 1,000 ML 50 ML IVCONT (06:16)
--- NOTE | 2024-09-18 06:43 | HO.ANESPROP2 ---
FORMERLY [facility] Active Problems Active Problems: All Active Problems Fracture of right inferior pubic ramus (Acute) Fracture of superior ramus of right pubis (Acute) Arachnoid cyst (Acute) Diverticulosis (Chronic) Schizophrenia (Acute) Past Medical History Medical History Diverticulosis Schizophrenia CKD (chronic kidney disease) Hyperlipidemia Type 2 diabetes mellitus Hypothyroidism HTN (hypertension) GERD (gastroesophageal reflux disease) Mood disorder Family History Family history of problems with anesthesia: No Surgical History History of Problems with Anesthesia: No Social History Social History (Updated 08/13/24 @ 14:32 by GENIE Ferguson) Household Members: None Household Members Other:: Lives at [facility] Housing: Assisted Living Facility Do you presently have visiting nurse or other home services: Yes Alcohol intake: current Alcohol intake frequency: does not drink Patient Tobacco Use Status: Former Tobacco user Tobacco use type: Cigarette Cigarette Packs Per Day: 3 Cigarettes Per Day: 60.0 Years Smoked: 16 Second Hand Smoke Exposure: No Use of substances other than those prescribed or required for medical reasons: No Advance Directives: No Advance Directives Information Provided: Yes service: No Current occupational status: retired Sexual orientation: Straight/Heterosexual Meds Allergies Allergy/AdvReac Type Severity Reaction Status Date / Time trifluoperazine Allergy Unknown Verified 08/13/24 14:31 [From Stelazine] Active Medications: Current Medications Lactated Ringer's (Lr) 1,000 mls @ 50 mls/hr IVCONT .Q20H YURY Last Admin: 09/18/24 06:16 Dose: 50 mls/hr Home Medications ?Medication ?Instructions ?Recorded ?Confirmed ?Last Taken ?Type acetaminophen 325 mg tablet 650 mg PO Q6H PRN pain/fever 06/22/24 06/22/24 Unknown History hydroxyzine HCl 25 mg tablet 25 mg PO Q6H PRN Anxiety 06/22/24 06/22/24 Unknown History polyethylene glycol 3350 17 gram 17 g PO BEDTIME 06/22/24 06/22/24 06/21/24 20:00 History oral powder packet polyethylene glycol 3350 17 gram 17 g PO DAILY PRN Constipation 06/22/24 06/22/24 Unknown History oral powder packet sennosides 8.6 mg tablet (Senna 8.6 mg PO BEDTIME 06/22/24 06/22/2406/21/25 20:00 History Lax) sennosides 8.6 mg tablet (senna) 8.6 mg PO DAILY PRN Constipation 06/22/24 06/22/24 Unknown History trazodone 50 mg tablet 50 mg PO BEDTIME 06/22/24 06/22/24 06/21/24 20:00 History trazodone 50 mg tablet 50 mg PO BEDTIME PRN Insomnia 06/22/24 06/22/24 Unknown History bisacodyl 10 mg rectal suppository 10 mg TN DAILY PRN 07/03/24 Unknown History (Dulcolax (bisacodyl)) magnesium hydroxide 400 mg/5 mL 5 ml PO DAILY PRN 07/03/24 Unknown History oral suspension (Milk of Magnesia) sennosides 8.6 mg tablet (Senna 8.6 mg PO BEDTIME 07/03/24 Unknown History Lax) sodium phosphates 19 gram-7 118 ml TN DAILY PRN 07/03/24 Unknown History gram/118 mL enema (Fleet Enema) cephalexin 500 mg capsule 500 mg PO QID 08/13/24 Unknown History Exam Height,Weight and Vital Signs: Height 5 ft 6 in Weight 81.647 kg Last Vital Signs Temp 97.5 F 09/18/24 06:10 Pulse 86 09/18/24 06:10 Resp 16 09/18/24 06:10 BP 119/76 09/18/24 06:10 Pulse Ox 95 09/18/24 06:10 O2 Del Method Room Air 09/18/24 06:10 Airway Mallampati Class: II TM Dist: >3cm Neck ROM: Full Partial: Upper Heart: rrr Lungs: cta Assessment and Plan Assessment Anesthesia Assessment: Anesthesia Plan Discussed and Chart Reviewed Final Anesthetic Review Family History of Problems with Anesthesia: No History of Problems with Anesthesia: No NPO: Yes ASA Class: III Final Preanesthetic Review: No Changes in Pt Med Stat, Meds/Allgs Chart Reviewed and Consent Obtained/Reviewed Patient Risk: Intermediate Procedure Risk: Intermediate Anesthetic Plan Anesthetic Plan: GA Disposition: Standard PACU
--- NOTE | 2024-09-18 07:09 | MHC.SHP ---
Pre-Procedural Eval Section A - 24 Hr Update-Section A only Date of Service: 09/18/24 Section B - Complete if H&P > 30 days Chief Complaint: depression Relevant Family History (Specify if Yes): No Allergies: Allergies Allergy/AdvReac Type Severity Reaction Status Date / Time trifluoperazine Allergy Unknown Verified 08/13/24 14:31 [From Stelazine] Exam Surgical H&P Exam: Normal: HEENT, Normal: Extremities, Normal: Skin and Normal: Neurological Plan Diagnosis/Plan: Unchanged I have reviewed the history and physical and performed a pertinent physical examination on my patient. No changes have occurred unless specified. Time Spent With Patient Time: Total time managing care of this patient today __30__ minutes.
[2024-09-18 07:23] VITALS: BP 178/94; PULSE 86; RESP 16; TEMP 36.9; O2SAT 99
[2024-09-18 07:28] VITALS: BP 154/89; PULSE 85; RESP 16; O2SAT 94
[2024-09-18 07:33] VITALS: BP 142/88; PULSE 85; RESP 16; O2SAT 94
[2024-09-18 07:38] VITALS: BP 137/84; PULSE 82; RESP 16; O2SAT 96
--- NOTE | 2024-09-18 07:49 | HO.ECTPROC ---
ECT Procedure Note Diagnosis/Treatment Date of Service: 09/18/24 Diagnosis: Schizoaffective Disorder Previous ECT Date: 09/04/24 Current Treatment Number: Other (17) Treatment: Maintenance Interval Clinical Notes: mood improved, no medical changes. feeling she is doing well outpatient. Time: Total time managing care of this patient today __35__ minutes. ECT Settings Device: THYMATRON DGx Electrode Placement: Bifrontal Program/Pulse Width: 0.50 Energy Percent: 100 Seizure Duration By EEG (in seconds): 28 Medications Administration General Anesthetic: Etomidate (12) Muscle Relaxant: Succinylcholine (80) Ancillary Medications Anti-emetics: Zofran - Pre ECT (4) Airway Management Airway Management: Bag Mask Ventilation Treatment Recommendations No Changes Recommended: No change Notes: return to clinic in 4 weeks for another maintenance treatment Pt Tolerated Procedure w/o Issue: Yes
[2024-09-18 07:53] VITALS: BP 138/83; PULSE 80; RESP 16; TEMP 36.9; O2SAT 95
== END 2024-09-18 09:05 | disposition home or self-care (01) ==
PROVIDERS: PCP Family Medicine; Visit Provider Psychiatry & Neurology Psychiatry
PROC: (CPT 90870; principal; 2024-09-18 08:30)
DX: F25.8 Other schizoaffective disorders (principal); E11.22 Type 2 diabetes mellitus with diabetic chronic kidney disease; I12.9 Hypertensive chronic kidney disease with stage 1 through stage 4 chronic kidney disease, or unspecified chronic kidney disease; N18.9 Chronic kidney disease, unspecified; D64.9 Anemia, unspecified; E03.9 Hypothyroidism, unspecified; G93.2 Benign intracranial hypertension; Z91.81 History of falling; Z87.81 Personal history of (healed) traumatic fracture; Z79.899 Other long term (current) drug therapy; Z88.8 Allergy status to other drugs, medicaments and biological substances; Z87.891 Personal history of nicotine dependence
CPT/HCPCS: 90870; J0330; J2405

== ENCOUNTER → 2024-09-18 05:53 | Outpatient (BNV) | payer MEDICARE, MEDICAID, SELFPAY | PROVIDERS: PCP Family Medicine; Visit Provider Psychiatry & Neurology Psychiatry | DX: F33.2 Major depressive disorder, recurrent severe without psychotic features (principal) | CPT/HCPCS: 90870 ==

== ENCOUNTER 2024-09-25 08:46 | Outpatient (REF) | payer MEDICARE, MEDICAID, SELFPAY ==
--- NOTE | ~2024-09-25 | XR_ITS ---
EXAMINATION: XR PELVIS CLINICAL INFORMATION: M25.559 - Pain in unspecified hip , follow-up fracture COMPARISON: August 13, 2024 and September 02, 2024 TECHNIQUE: AP view of the pelvis. FINDINGS: Again seen are changes from subacutely healing fracture of the right pubic ring involving the superior pubic ramus extending to the superior pubic symphysis joint. It demonstrates increasing sclerosis and decreasing lucency consistent with healing. There is mild axial joint space narrowing of both hip joints and marginal osteophytes involving the right femoral head and bilateral acetabulum. There is left greater than right acetabular over coverage of the femoral heads. SI joints are degenerated with narrowing and sclerosis plus minimal vacuum phenomena. Facet sclerosis is present in the lower lumbar spine. XR/XR pelvis 1-2V IMPRESSION: Continued healing of a right superior pubic ramus fracture. Mild bilateral hip osteoarthritis. Borderline coxa profunda (acetabular over-coverage) on the right and mild on the left. Electronically signed by: Edmar Luis MD 09/25/2024 10:38 AM EDT
== END 2024-09-25 08:47 | disposition home or self-care (01) ==
LOC: HO.HOSX 08:46
PROVIDERS: Visit Provider Physician Assistant
DX: M25.551 Pain in right hip (principal); S32.511A Fracture of superior rim of right pubis, initial encounter for closed fracture; S32.591A Other specified fracture of right pubis, initial encounter for closed fracture; W18.30XA Fall on same level, unspecified, initial encounter; Y93.9 Activity, unspecified; Y92.9 Unspecified place or not applicable; Y99.9 Unspecified external cause status
CPT/HCPCS: 72170; 99212

== ENCOUNTER 2024-09-25 09:26 | Outpatient (AMB) | payer MEDICARE, MEDICAID, SELFPAY ==
--- NOTE | 2024-09-25 09:51 | MHC.OFFVIS ---
Intake Visit Reasons: OV - right pubic rami fx, DOI 06/22/24 Intake Note: Deedee is a 74 year old female who presents today for a follow up visit for her fracture of right inferior pubic ramus s/p fall DOI 06/22/24. At her last visit patient should be applying 50% weight-bearing with a walker and increase weight-bearing by 25% each week until full weight-bearing. Her physical therapy order was updated on the weight-bearing status with instructions for glute core quad strengthening and gait training with a walker. Patient reports she is doing well, but she notices weakness in her legs. She would like to get a new script and go to [facility] for PT. Allergies trifluoperazine [From Stelazine] Allergy (Verified 09/25/24 09:52) Unknown HPI HPI OV - right pubic rami fx, DOI 06/22/24: Details: Ms. Holbrook is a 74-year-old female who presents to the office today for follow-up of right superior and inferior pubic rami fractures that occurred on 06/22/2024. At her last appointment she was instructed to be 50% weight-bearing with the use of a walker. She then could increase to 25% each week until full weight-bearing. Today she presents to the office fully weight-bearing with the use of a walker. She is looking to attend physical therapy as an outside facility and would like a referral. She denies any pain at this time. No additional complaints. [facility] Medical History Diverticulosis Schizophrenia CKD (chronic kidney disease) Hyperlipidemia Type 2 diabetes mellitus Hypothyroidism HTN (hypertension) GERD (gastroesophageal reflux disease) Mood disorder Social History Household Members: None Household Members Other:: Lives at [facility] Housing: Assisted Living Facility Do you presently have visiting nurse or other home services: Yes Alcohol intake: current Alcohol intake frequency: does not drink Patient Tobacco Use Status: Former Tobacco user Tobacco use type: Cigarette Cigarette Packs Per Day: 3 Cigarettes Per Day: 60.0 Years Smoked: 16 Second Hand Smoke Exposure: No service: No Current occupational status: retired Sexual orientation: Straight/Heterosexual Review of Systems Const All systems reviewed & are unremarkable except as noted in HPI and below Physical Exam Const General: cooperative, healthy appearing and no acute distress Resp Effort & Inspection: normal respiratory effort and able to speak in complete sentences Extrem Other: Right hip: Normal to inspection. No ecchymosis, erythema, or edema. Full hip ROM in all planes. No tenderness to palpation over the greater trochanteric bursa. Able to perform straight leg raise. NVI. Assessment & Plan Assessment & Plan (1) Fracture of superior ramus of right pubis: Code(s): S32.511A - Fracture of superior rim of right pubis, initial encounter for closed fracture Category: Medical (2) Fracture of right inferior pubic ramus: Code(s): S32.591A - Other specified fracture of right pubis, initial encounter for closed fracture Category: Medical Plan Ms. Holbrook is a 74-year-old female who presents to the office today for follow-up of right superior and inferior pubic rami fractures that occurred on 06/22/2024. At her last appointment she was instructed to be 50% weight-bearing with the use of a walker. She then could increase to 25% each week until full weight-bearing. Today she presents to the office fully weight-bearing with the use of a walker. She is looking to attend physical therapy as an outside facility and would like a referral. She denies any pain at this time. No additional complaints. While in the office today, we discussed with the patient can return back to normal activities as tolerated. She did request a physical therapy prescription for an outside facility which I have provided to her today. She would like to work on strengthening of the lower extremities therefore I have recommended glute core quad strengthening as well as gait training. Patient can follow up PRN, sooner if needed. X-rays of the pelvis which were obtained while in the office today and were reviewed by me, Lolis Parks PA-C, revealed healed superior and inferior pubic rami fractures. Orders: Orders XR pelvis 1-2V Today M25.559 - Pain in unspecified hip PT Evaluation and Treatment Today S32.511A - Fracture of superior rim of right pubis, initial encounter for closed fracture, S32.591A - Other specified fracture of right pubis, initial encounter for closed fracture Coding Level of Care Code Est Pt Level 3 (08171) Diagnoses Fracture of superior ramus of right pubis S32.511A Fracture of right inferior pubic ramus S33.080X
== END 2024-09-25 10:00 | disposition home or self-care (01) ==
LOC: HO.HOS 09:26
PROVIDERS: PCP Family Medicine; Visit Provider Physician Assistant
DX: S32.511A Fracture of superior rim of right pubis, initial encounter for closed fracture (principal); S32.591A Other specified fracture of right pubis, initial encounter for closed fracture
CPT/HCPCS: 99213

== ENCOUNTER → 2024-09-25 09:27 | Outpatient (BNV) | payer MEDICARE, MEDICAID, SELFPAY | PROVIDERS: Visit Provider Radiology Diagnostic Radiology | DX: M16.0 Bilateral primary osteoarthritis of hip (principal) | CPT/HCPCS: 72170 ==

== ENCOUNTER 2024-10-16 05:48 | Day surgery (SDC) | payer MEDICARE, MEDICAID, SELFPAY ==
[2024-10-16] VITALS (7 sets, daily range): BP systolic 116–181; BP diastolic 74–109; PULSE 80–82; RESP 16; TEMP 36.1–36.6; O2SAT 93–99; BMI 29.5
--- NOTE | 2024-10-16 | ECG_ITS ---
Test Reason : ect Blood Pressure : */* mmHG Vent. Rate : 83 BPM Atrial Rate : 83 BPM P-R Int : 146 ms QRS Dur : 102 ms QT Int : 412 ms P-R-T Axes : 55 8 56 degrees QTcB Int : 484 ms Normal sinus rhythm Normal ECG When compared with ECG of 23-Apr-2024 13:58, No significant change was found Referred By: Emil Krishna Electronically Signed By: GENIA CASILLAS
--- NOTE | 2024-10-16 06:46 | HO.ANESPROP2 ---
[facility] Active Problems Active Problems: All Active Problems Fracture of right inferior pubic ramus (Acute) Fracture of superior ramus of right pubis (Acute) Arachnoid cyst (Acute) Diverticulosis (Chronic) Schizophrenia (Acute) Past Medical History Medical History Diverticulosis Schizophrenia CKD (chronic kidney disease) Hyperlipidemia Type 2 diabetes mellitus Hypothyroidism HTN (hypertension) GERD (gastroesophageal reflux disease) Mood disorder Family History Family history of problems with anesthesia: No Surgical History History of Problems with Anesthesia: No Social History Social History Household Members: None Household Members Other:: Lives at [facility] Housing: Assisted Living Facility Do you presently have visiting nurse or other home services: Yes Alcohol intake: current Alcohol intake frequency: does not drink Patient Tobacco Use Status: Former Tobacco user Tobacco use type: Cigarette Cigarette Packs Per Day: 3 Cigarettes Per Day: 60.0 Years Smoked: 16 Second Hand Smoke Exposure: No Advance Directives: No Advance Directives Information Provided: Yes service: No Current occupational status: retired Sexual orientation: Straight/Heterosexual Meds Allergies Allergy/AdvReac Type Severity Reaction Status Date / Time trifluoperazine (From Allergy Unknown Verified 09/25/24 09:52 Stelazine) Home Medications ?Medication ?Instructions ?Recorded ?Confirmed ?Last Taken ?Type acetaminophen 325 mg tablet 650 mg PO Q6H PRN pain/fever 06/22/24 06/22/24 Unknown History hydroxyzine HCl 25 mg tablet 25 mg PO Q6H PRN Anxiety 06/22/24 06/22/24 Unknown History polyethylene glycol 3350 17 gram 17 g PO BEDTIME 06/22/24 06/22/24 06/21/24 20:00 History oral powder packet polyethylene glycol 3350 17 gram 17 g PO DAILY PRN Constipation 06/22/24 06/22/24 Unknown History oral powder packet sennosides 8.6 mg tablet (Senna 8.6 mg PO BEDTIME 06/22/24 06/22/24 06/21/24 20:00 History Lax) sennosides 8.6 mg tablet (senna) 8.6 mg PO DAILY PRN Constipation 06/22/24 06/22/24 Unknown History trazodone 50 mg tablet 50 mg PO BEDTIME 06/22/24 06/22/24 06/21/24 20:00 History trazodone 50 mg tablet 50 mg PO BEDTIME PRN Insomnia 06/22/24 06/22/24 Unknown History bisacodyl 10 mg rectal suppository 10 mg DC DAILY PRN 07/03/24 Unknown History (Dulcolax (bisacodyl)) magnesium hydroxide 400 mg/5 mL 5 ml PO DAILY PRN 07/03/24 Unknown History oral suspension (Milk of Magnesia) sennosides 8.6 mg tablet (Senna 8.6 mg PO BEDTIME 07/03/24 Unknown History Lax) sodium phosphates 19 gram-7 118 ml DC DAILY PRN 07/03/24 Unknown History gram/118 mL enema (Fleet Enema) cephalexin 500 mg capsule 500 mg PO QID 08/13/24 Unknown History Exam Height,Weight and Vital Signs: Height 5 ft 6 in Weight 83 kg Airway Mallampati Class: II TM Dist: >3cm Neck ROM: Full Heart: rrr Lungs: cta Assessment and Plan Assessment Anesthesia Assessment: Anesthesia Plan Discussed and Chart Reviewed Final Anesthetic Review Family History of Problems with Anesthesia: No History of Problems with Anesthesia: No NPO: Yes ASA Class: III Final Preanesthetic Review: No Changes in Pt Med Stat, Meds/Allgs Chart Reviewed and Consent Obtained/Reviewed Patient Risk: Intermediate Procedure Risk: Intermediate Anesthetic Plan Anesthetic Plan: GA Disposition: Standard PACU
--- NOTE | 2024-10-16 07:06 | MHC.SHP ---
Pre-Procedural Eval Section A - 24 Hr Update-Section A only Date of Service: 10/16/24 Section B - Complete if H&P > 30 days Chief Complaint: depression Details of Present Illness: pt stable psychiatrically no c/o si no cognitive side effects gait has improved Relevant Family History (Specify if Yes): No Allergies: Allergies Allergy/AdvReac Type Severity Reaction Status Date / Time trifluoperazine (From Allergy Unknown Verified 09/25/24 09:52 Stelazine) Review of Systems Sugical H&P ROS: Negative: Cardiovascular, Respiratory and Neurological and Yes, Specify: Psychiatric (no si no command harry) and Musculoskeletal (walking independantly) Exam Surgical H&P Exam: Normal: HEENT, Normal: Extremities, Normal: Skin and Normal: Neurological Exam Comment: 116/78 Plan Diagnosis/Plan: Unchanged I have reviewed the history and physical and performed a pertinent physical examination on my patient. No changes have occurred unless specified. Time Spent With Patient Time: Total time managing care of this patient today ____ minutes.
[2024-10-16] MEDS: Lactated Ringers 1,000 ML 50 ML IVCONT (07:12)
--- NOTE | 2024-10-16 07:12 | HO.ECTPROC ---
ECT Procedure Note Diagnosis/Treatment Date of Service: 10/21/24 Diagnosis: Schizoaffective Disorder Previous ECT Date: 09/04/24 Current Treatment Number: Other (17) Treatment: Maintenance Interval Clinical Notes: mood improved, no medical changes. feeling she is doing well outpatient. Time: Total time managing care of this patient today ____ minutes. ECT Settings Device: THYMATRON DGx Electrode Placement: Bifrontal Program/Pulse Width: 0.50 Energy Percent: 100 Seizure Duration By EEG (in seconds): 44 Medications Administration General Anesthetic: Etomidate (12) Muscle Relaxant: Succinylcholine (80) Ancillary Medications Anti-emetics: Zofran - Pre ECT (4) Airway Management Airway Management: Bag Mask Ventilation Treatment Recommendations No Changes Recommended: No change Notes: Schedule follow-up 4-5 weeks patient/family to call if relapse symptoms Pt Tolerated Procedure w/o Issue: Yes
[2024-10-16 07:47] LABS: MANUAL DIFF FLAG NO
[2024-10-16 07:49] LABS: Basophils Absolute Auto 0.1 X10*3/uL (0.0-0.2); Basophils Percent Auto 0.8 % (0-2); Eosinophils Absolute Auto 0.2 X10*3/uL (0.0-0.4); Eosinophils Percent Auto 2.2 % (0-4); Hematocrit 34.2 % (37.0-47.0); Hemoglobin 11.3 g/dl (12.0-16.0); Imm Gran Abs Auto 0.03 X10*3/uL (0.00-0.03); Imm Gran Pct Auto 0.3 % (0.0-0.4); Lymphocytes Absolute Auto 1.7 X10*3/uL (1.2-4.9); Mean Corpuscular Hemoglobin 29.7 pg (27.0-33.0); Mean Corpuscular Volume 89.8 fL (80.0-98.0); Mean Platelet Volume 9.5 fL (9.4-12.3); Monocytes Absolute Auto 0.9 X10*3/uL (0.1-1.2); Monocytes Percent Auto 10.1 % (2-11); Neutrophils Absolute Auto 5.9 x10*3/uL (2.0-8.3); Neutrophils Percent Auto 67.6 % (45-73); Platelet Count 248 X10*3/uL (160-400); Red Blood Count 3.81 X10*6/uL (4.20-5.50); Red Cell Distribution Width 15.3 % (11.0-16.0); White Blood Count 8.8 X10*3/uL (4.8-10.8)
[2024-10-16 08:46] LABS: Alanine Aminotransferase 17 U/L (0-31); Albumin Level 4.1 g/dL (3.5-5.0); Alkaline Phosphatase 103 U/L (39-117); Anion Gap 13 (12-20); Aspartate Amino Transferase 21 U/L (5-31); Bilirubin Total 0.3 mg/dL (0.0-1.0); Blood Urea Nitrogen 24 mg/dL (9-16); Calcium 9.2 mg/dL (8.4-10.2); Carbon Dioxide 22 mmol/L (22-29); Chloride 110 mmol/L (96-108); Creatinine Clr Calc Pharmacy 45.3; Estimated Glomerular Filt Rate 44; Glucose Random 129 mg/dL (60-115); Potassium 4.6 mmol/L (3.3-5.1); Sodium 140 mmol/L (135-145); Total Protein 6.1 g/dL (6.5-8.0)
== END 2024-10-16 09:18 | disposition home or self-care (01) ==
PROVIDERS: PCP Internal Medicine; Visit Provider Psychiatry & Neurology Psychiatry
PROC: (CPT 90870; principal; 2024-10-16 07:00)
DX: F25.8 Other schizoaffective disorders (principal); E11.22 Type 2 diabetes mellitus with diabetic chronic kidney disease; I12.9 Hypertensive chronic kidney disease with stage 1 through stage 4 chronic kidney disease, or unspecified chronic kidney disease; N18.9 Chronic kidney disease, unspecified; D64.9 Anemia, unspecified; E03.9 Hypothyroidism, unspecified; Z91.81 History of falling; Z79.899 Other long term (current) drug therapy; Z88.8 Allergy status to other drugs, medicaments and biological substances; Z87.891 Personal history of nicotine dependence
CPT/HCPCS: 36415; 80053; 85025; 90870; 93005; J0330; J2405

== ENCOUNTER → 2024-10-16 05:48 | Outpatient (BNV) | payer MEDICARE, MEDICAID, SELFPAY | PROVIDERS: PCP Internal Medicine; Visit Provider Psychiatry & Neurology Psychiatry | DX: F33.2 Major depressive disorder, recurrent severe without psychotic features (principal) | CPT/HCPCS: 90870 ==

== ENCOUNTER → 2024-10-16 07:44 | Outpatient (BNV) | payer MEDICARE, MEDICAID, SELFPAY | PROVIDERS: PCP Internal Medicine; Visit Provider Internal Medicine | DX: Z13.6 Encounter for screening for cardiovascular disorders (principal) | CPT/HCPCS: 93010 ==

== ENCOUNTER 2024-11-25 05:53 | Day surgery (SDC) | payer MEDICARE, MEDICAID, SELFPAY ==
[2024-11-25] VITALS (7 sets, daily range): BP systolic 126–175; BP diastolic 80–98; PULSE 81–84; RESP 13–16; TEMP 36.1–36.6; O2SAT 95–97; BMI 29.5
--- NOTE | 2024-11-25 06:37 | HO.ANESPROP2 ---
[facility] Active Problems Active Problems: All Active Problems (Updated 07/03/24 @ 13:55 by Lolis Parks PA-C) Fracture of right inferior pubic ramus (Acute) Fracture of superior ramus of right pubis (Acute) Arachnoid cyst (Acute) Diverticulosis (Chronic) Schizophrenia (Acute) Past Medical History Medical History Diverticulosis Schizophrenia CKD (chronic kidney disease) Hyperlipidemia Type 2 diabetes mellitus Hypothyroidism HTN (hypertension) GERD (gastroesophageal reflux disease) Mood disorder Family History Family history of problems with anesthesia: No Surgical History History of Problems with Anesthesia: No Social History Social History Household Members: None Household Members Other:: Lives at [facility] Housing: Assisted Living Facility Do you presently have visiting nurse or other home services: Yes Alcohol intake: current Alcohol intake frequency: does not drink Patient Tobacco Use Status: Former Tobacco user Tobacco use type: Cigarette Cigarette Packs Per Day: 3 Cigarettes Per Day: 60.0 Years Smoked: 16 Second Hand Smoke Exposure: No Are you DNR?: No Advance Directives: No Advance Directives Information Provided: Yes service: No Current occupational status: retired Sexual orientation: Straight/Heterosexual Meds Allergies Allergy/AdvReac Type Severity Reaction Status Date / Time trifluoperazine (From Allergy Unknown Verified 09/25/24 09:52 Stelazine) Active Medications: Current Medications Lactated Ringer's (Lr) 1,000 mls @ 50 mls/hr IVCONT .Q20H YURY Naloxone HCl (Naloxone Hcl 0.4 Mg/Ml Vial) 0.04 mg IVPUSH Q5M PRN PRN Reason: Excessive sedation or RR < 8 Home Medications ?Medication ?Instructions ?Recorded ?Confirmed ?Last Taken ?Type acetaminophen 325 mg tablet 650 mg PO Q6H PRN pain/fever 06/22/24 06/22/24 Unknown History hydroxyzine HCl 25 mg tablet 25 mg PO Q6H PRN Anxiety 06/22/24 06/22/24 Unknown History polyethylene glycol 3350 17 gram 17 g PO BEDTIME 06/22/24 06/22/24 06/21/24 20:00 History oral powder packet polyethylene glycol 3350 17 gram 17 g PO DAILY PRN Constipation 06/22/24 06/22/24 Unknown History oral powder packet sennosides 8.6 mg tablet (Senna 8.6 mg PO BEDTIME 06/22/24 06/22/24 06/21/24 20:00 History Lax) sennosides 8.6 mg tablet (senna) 8.6 mg PO DAILY PRN Constipation 06/22/24 06/22/24 Unknown History trazodone 50 mg tablet 50 mg PO BEDTIME 06/22/24 06/22/24 06/21/24 20:00 History trazodone 50 mg tablet 50 mg PO BEDTIME PRN Insomnia 06/22/24 06/22/24 Unknown History bisacodyl 10 mg rectal suppository 10 mg UT DAILY PRN 07/03/24 Unknown History (Dulcolax (bisacodyl)) magnesium hydroxide 400 mg/5 mL 5 ml PO DAILY PRN 07/03/24 Unknown History oral suspension (Milk of Magnesia) sennosides 8.6 mg tablet (Senna 8.6 mg PO BEDTIME 07/03/24 Unknown History Lax) sodium phosphates 19 gram-7 118 ml UT DAILY PRN 07/03/24 Unknown History gram/118 mL enema (Fleet Enema) cephalexin 500 mg capsule 500 mg PO QID 08/13/24 Unknown History Exam Height,Weight and Vital Signs: Height 5 ft 6 in Weight 83 kg Last Vital Signs Temp 97.8 F 11/25/24 06:10 Pulse 82 11/25/24 06:10 Resp 14 11/25/24 06:10 BP 126/84 11/25/24 06:10 Pulse Ox 95 11/25/24 06:10 O2 Del Method Room Air 11/25/24 06:10 Airway Mallampati Class: II TM Dist: >3cm Neck ROM: Full Partial: Upper Heart: rrr Lungs: cta Assessment and Plan Assessment Anesthesia Assessment: Anesthesia Plan Discussed and Chart Reviewed Final Anesthetic Review Family History of Problems with Anesthesia: No History of Problems with Anesthesia: No NPO: Yes ASA Class: III Final Preanesthetic Review: No Changes in Pt Med Stat, Meds/Allgs Chart Reviewed and Consent Obtained/Reviewed Patient Risk: Intermediate Procedure Risk: Intermediate Anesthetic Plan Anesthetic Plan: GA Disposition: Standard PACU
[2024-11-25] MEDS: Lactated Ringers 1,000 ML 50 ML IVCONT (07:03)
--- NOTE | 2024-11-25 07:08 | P.HPSUR_ITS ---
Pre-Procedural Eval Section A - 24 Hr Update-Section A only Date of Service: 11/25/24 The patient is an INPATIENT: No Section B - Complete if H&P > 30 days Chief Complaint: depression Details of Present Illness: pt with intrusive evangelical delusional guilt aud harry denies si no new medical concerns Relevant Family History (Specify if Yes): No History of Previous Operations: Relevant previous surgery/procedure and date(s) (ect) Allergies: Allergies Allergy/AdvReac Type Severity Reaction Status Date / Time trifluoperazine (From Allergy Unknown Verified 09/25/24 09:52 Stelazine) Review of Systems Sugical H&P ROS: Negative: Cardiovascular, Respiratory and Neurological and Yes, Specify: Psychiatric (no si pos harry ) and Musculoskeletal (walking independently with walker) Exam Surgical H&P Exam: Normal: HEENT, Normal: Heart, Normal: Lungs, Normal: Extremities, Normal: Skin and Normal: Neurological (no abn movt) Exam Comment: inc psychotic sx Plan Diagnosis/Plan: Unchanged I have reviewed the history and physical and performed a pertinent physical examination on my patient. No changes have occurred unless specified. Time Spent With Patient Time: Total time managing care of this patient today ____ minutes.
--- NOTE | 2024-11-25 07:11 | P.PCN_ITS ---
ECT Procedure Note Diagnosis/Treatment Date of Service: 11/25/24 Diagnosis: Schizoaffective Disorder Previous ECT Date: 09/04/24 Current Treatment Number: Other (17) Treatment: Maintenance Interval Clinical Notes: Patient has had some increase in psychotic symptoms christianity preoccupation communications that fully elucidate but denied command hallucinations to harm herself she was more anxious and preoccupied stated Lamictal had recently been increased sees uma Haro nurse practitioner discussed ECT today and follow-up treatment in 1 week Pt aware of how to contact crisis Time: Total time managing care of this patient today _30___ minutes. ECT Settings Device: THYMATRON DGx Electrode Placement: Bifrontal Program/Pulse Width: 0.50 Energy Percent: 100 Seizure Duration By EEG (in seconds): 54 Medications Administration General Anesthetic: Etomidate (12) Muscle Relaxant: Succinylcholine (80) Ancillary Medications Anti-emetics: Zofran - Pre ECT (4) Airway Management Airway Management: Bag Mask Ventilation Treatment Recommendations No Changes Recommended: No change Notes: Schedule follow-up 1 wk and 2 wks try and coordinate crescencio painting np Pt Tolerated Procedure w/o Issue: Yes
== END 2024-11-25 08:41 | disposition home or self-care (01) ==
PROVIDERS: PCP Internal Medicine; Visit Provider Psychiatry & Neurology Psychiatry
PROC: (CPT 90870; principal; 2024-11-25 07:00)
DX: F25.8 Other schizoaffective disorders (principal); R44.0 Auditory hallucinations; F22 Delusional disorders; E11.22 Type 2 diabetes mellitus with diabetic chronic kidney disease; I12.9 Hypertensive chronic kidney disease with stage 1 through stage 4 chronic kidney disease, or unspecified chronic kidney disease; N18.9 Chronic kidney disease, unspecified; D64.9 Anemia, unspecified; E03.9 Hypothyroidism, unspecified; Z79.899 Other long term (current) drug therapy; Z88.8 Allergy status to other drugs, medicaments and biological substances; Z87.891 Personal history of nicotine dependence
CPT/HCPCS: 90870; J0330; J1596; J1805; J2405; J2704

== ENCOUNTER → 2024-11-25 05:53 | Outpatient (BNV) | payer MEDICARE, MEDICAID, SELFPAY | PROVIDERS: PCP Internal Medicine; Visit Provider Psychiatry & Neurology Psychiatry | DX: F25.1 Schizoaffective disorder, depressive type (principal) | CPT/HCPCS: 90870 ==

== ENCOUNTER 2024-12-02 05:49 | Day surgery (SDC) | payer MEDICARE, MEDICAID, SELFPAY ==
[2024-12-02 06:21] VITALS: BP 138/81; PULSE 75; RESP 16; TEMP 36.3; O2SAT 96; BMI 30.7
[2024-12-02] MEDS: Lactated Ringers 1,000 ML 999 ML IV (06:35)
--- NOTE | 2024-12-02 07:04 | HO.ANESPROP2 ---
HPI - Anesthesia Eval Consult details Narrative: For ECT PMFSH Active Problems Active Problems: All Active Problems Fracture of right inferior pubic ramus (Acute) Fracture of superior ramus of right pubis (Acute) Arachnoid cyst (Acute) Diverticulosis (Chronic) Schizophrenia (Acute) Past Medical History Medical History Diverticulosis Schizophrenia CKD (chronic kidney disease) Hyperlipidemia Type 2 diabetes mellitus Hypothyroidism HTN (hypertension) GERD (gastroesophageal reflux disease) Mood disorder Family History Family history of problems with anesthesia: No Surgical History History of Problems with Anesthesia: No Social History Social History Household Members: None Household Members Other:: Lives at [facility] Housing: Assisted Living Facility Do you presently have visiting nurse or other home services: Yes Alcohol intake: current Alcohol intake frequency: does not drink Patient Tobacco Use Status: Former Tobacco user Tobacco use type: Cigarette Cigarette Packs Per Day: 3 Cigarettes Per Day: 60.0 Years Smoked: 16 Second Hand Smoke Exposure: No Advance Directives: No Advance Directives Information Provided: Yes service: No Current occupational status: retired Sexual orientation: Straight/Heterosexual Meds Allergies Allergy/AdvReac Type Severity Reaction Status Date / Time trifluoperazine (From Allergy Unknown Verified 09/25/24 09:52 Stelazine) Active Medications: Current Medications Lactated Ringer's (Lr) 1,000 mls @ 999 mls/hr IV .Q1H1M YURY Stop: 12/02/24 07:45 Last Admin: 12/02/24 06:35 Dose: 999 mls/hr Home Medications ?Medication ?Instructions ?Recorded ?Confirmed ?Last Taken ?Type acetaminophen 325 mg tablet 650 mg PO Q6H PRN pain/fever 06/22/24 11/25/24 Unknown History hydroxyzine HCl 25 mg tablet 25 mg PO Q6H PRN Anxiety 06/22/24 11/25/24 Unknown History polyethylene glycol 3350 17 gram 17 g PO BEDTIME 06/22/24 11/25/24 06/21/24 20:00 History oral powder packet polyethylene glycol 3350 17 gram 17 g PO DAILY PRN Constipation 06/22/24 11/25/24 Unknown History oral powder packet sennosides 8.6 mg tablet (Senna 8.6 mg PO BEDTIME 06/22/24 11/25/24 06/21/24 20:00 History Lax) sennosides 8.6 mg tablet (senna) 8.6 mg PO DAILY PRN Constipation 06/22/24 11/25/24 Unknown History trazodone 50 mg tablet 50 mg PO BEDTIME 06/22/24 11/25/24 06/21/24 20:00 History trazodone 50 mg tablet 50 mg PO BEDTIME PRN Insomnia 06/22/24 11/25/24 Unknown History bisacodyl 10 mg rectal suppository 10 mg GA DAILY PRN Constipation 07/03/24 11/25/24 Unknown History (Dulcolax (bisacodyl)) magnesium hydroxide 400 mg/5 mL 5 ml PO DAILY PRN Constipation 07/03/24 11/25/24 Unknown History oral suspension (Milk of Magnesia) sennosides 8.6 mg tablet (Senna 8.6 mg PO BEDTIME 07/03/24 11/25/24 Unknown History Lax) sodium phosphates 19 gram-7 118 ml GA DAILY PRN Dehydration 07/03/24 11/25/24 Unknown History gram/118 mL enema (Fleet Enema) cephalexin 500 mg capsule 500 mg PO QID 08/13/24 11/25/24 Unknown History Exam Height,Weight and Vital Signs: Height 5 ft 6 in Weight 86.183 kg Last Vital Signs Temp 97.3 F 12/02/24 06:21 Pulse 75 12/02/24 06:21 Resp 16 12/02/24 06:21 BP 138/81 12/02/24 06:21 Pulse Ox 96 12/02/24 06:21 O2 Del Method Room Air 12/02/24 06:21 Airway Mallampati Class: II TM Dist: >3cm Neck ROM: Full Loose/Missing/Broken Teeth: Yes and Upper Heart: ok Lungs: ok Assessment and Plan Assessment Anesthesia Assessment: Anesthesia Plan Discussed and Chart Reviewed Final Anesthetic Review Family History of Problems with Anesthesia: No History of Problems with Anesthesia: No NPO: Yes ASA Class: III Final Preanesthetic Review: No Changes in Pt Med Stat, Meds/Allgs Chart Reviewed, Consent Obtained/Reviewed and Anes Risks/Benef Reviewed Patient Risk: Intermediate Procedure Risk: Intermediate Anesthetic Plan Anesthetic Plan: GA and Agree w/ Assess. and Plan Disposition: Standard PACU
--- NOTE | 2024-12-02 07:37 | MHC.SHP ---
Pre-Procedural Eval Section A - 24 Hr Update-Section A only Date of Service: 12/02/24 The patient is an INPATIENT: No Changes since office visit: Yes Patient answered all questions; No Cold of Flu in the past 2 weeks, No New Medical Problems and No Changes in Medication Section B - Complete if H&P > 30 days Chief Complaint: depression Details of Present Illness: pt with intrusive denominational delusional guilt aud harry denies si no new medical concerns Relevant Family History (Specify if Yes): No History of Previous Operations: Relevant previous surgery/procedure and date(s) (ect) Allergies: Allergies Allergy/AdvReac Type Severity Reaction Status Date / Time trifluoperazine (From Allergy Unknown Verified 09/25/24 09:52 Stelazine) Review of Systems Sugical H&P ROS: Negative: Cardiovascular, Respiratory and Neurological and Yes, Specify: Psychiatric (no si pos harry ) and Musculoskeletal (walking independently with walker) Exam Surgical H&P Exam: Normal: HEENT, Normal: Heart, Normal: Lungs, Normal: Extremities, Normal: Skin and Normal: Neurological (no abn movt) Exam Comment: inc psychotic sx Plan Diagnosis/Plan: Unchanged I have reviewed the history and physical and performed a pertinent physical examination on my patient. No changes have occurred unless specified. Time Spent With Patient Time: Total time managing care of this patient today ____ minutes.
--- NOTE | 2024-12-02 07:50 | HO.ECTPROC ---
ECT Procedure Note Diagnosis/Treatment Date of Service: 12/02/24 Diagnosis: Schizoaffective Disorder Treatment: Maintenance Interval Clinical Notes: Patient has had an increase in psychotic symptoms this is somewhat distressing to her feeling delusional guilt denies active SI agreeable to continuation ECT to try and diminish this. Does not feel unsafe no command hallucinations to harm herself ECT completed bifrontally Time: Total time managing care of this patient today ____ minutes. ECT Settings Device: THYMATRON DGx Electrode Placement: Bifrontal Program/Pulse Width: 0.50 Energy Percent: 100 Seizure Duration By EEG (in seconds): 35 Medications Administration General Anesthetic: Etomidate (12) Muscle Relaxant: Succinylcholine (80) Ancillary Medications Anti-emetics: Zofran - Pre ECT (4) Airway Management Airway Management: Bag Mask Ventilation Treatment Recommendations No Changes Recommended: No change Notes: Follow-up treatment in 1 week
[2024-12-02 07:59] VITALS: BP 177/103; PULSE 86; RESP 17; TEMP 36.1; O2SAT 97
[2024-12-02 08:04] VITALS: BP 156/69; PULSE 80; RESP 17; O2SAT 95
[2024-12-02 08:09] VITALS: BP 150/87; PULSE 79; RESP 17; O2SAT 95
[2024-12-02 08:14] VITALS: BP 157/75; PULSE 79; RESP 17; O2SAT 95
[2024-12-02 08:29] VITALS: BP 151/85; PULSE 76; RESP 17; TEMP 36.1; O2SAT 95
== END 2024-12-02 08:45 | disposition home or self-care (01) ==
PROVIDERS: PCP Internal Medicine; Visit Provider Psychiatry & Neurology Psychiatry
PROC: (CPT 90870; principal; 2024-12-02 07:00)
DX: F25.8 Other schizoaffective disorders (principal); F22 Delusional disorders; E11.22 Type 2 diabetes mellitus with diabetic chronic kidney disease; I12.9 Hypertensive chronic kidney disease with stage 1 through stage 4 chronic kidney disease, or unspecified chronic kidney disease; N18.9 Chronic kidney disease, unspecified; D64.9 Anemia, unspecified; E03.9 Hypothyroidism, unspecified; Z79.899 Other long term (current) drug therapy; Z88.8 Allergy status to other drugs, medicaments and biological substances; Z87.891 Personal history of nicotine dependence
CPT/HCPCS: 90870; J0330; J2405

== ENCOUNTER → 2024-12-02 05:49 | Outpatient (BNV) | payer MEDICARE, MEDICAID, SELFPAY | PROVIDERS: PCP Internal Medicine; Visit Provider Psychiatry & Neurology Psychiatry | DX: F33.2 Major depressive disorder, recurrent severe without psychotic features (principal) | CPT/HCPCS: 90870 ==

== ENCOUNTER 2024-12-09 05:48 | Day surgery (SDC) | payer MEDICARE, MEDICAID, SELFPAY ==
[2024-12-09] VITALS (9 sets, daily range): BP systolic 121–166; BP diastolic 70–95; PULSE 78–82; RESP 16; TEMP 36.3–36.6; O2SAT 97; BMI 30.5
--- NOTE | 2024-12-09 06:51 | HO.ANESPROP2 ---
[facility]LY [facility] Active Problems Active Problems: All Active Problems Fracture of right inferior pubic ramus (Acute) Fracture of superior ramus of right pubis (Acute) Arachnoid cyst (Acute) Diverticulosis (Chronic) Schizophrenia (Acute) Past Medical History Medical History Diverticulosis Schizophrenia CKD (chronic kidney disease) Hyperlipidemia Type 2 diabetes mellitus Hypothyroidism HTN (hypertension) GERD (gastroesophageal reflux disease) Mood disorder Family History Family history of problems with anesthesia: No Surgical History History of Problems with Anesthesia: No Social History Social History Household Members: None Household Members Other:: Lives at [facility] Housing: Assisted Living Facility Do you presently have visiting nurse or other home services: Yes Alcohol intake: current Alcohol intake frequency: does not drink Patient Tobacco Use Status: Former Tobacco user Tobacco use type: Cigarette Cigarette Packs Per Day: 3 Cigarettes Per Day: 60.0 Years Smoked: 16 Second Hand Smoke Exposure: No Advance Directives: No Advance Directives Information Provided: Yes service: No Current occupational status: retired Sexual orientation: Straight/Heterosexual Meds Allergies Allergy/AdvReac Type Severity Reaction Status Date / Time trifluoperazine (From Allergy Unknown Verified 09/25/24 09:52 Stelazine) Active Medications: Current Medications Lactated Ringer's (Lr) 1,000 mls @ 50 mls/hr IVCONT .Q20H YURY Naloxone HCl (Naloxone Hcl 0.4 Mg/Ml Vial) 0.04 mg IVPUSH Q5M PRN PRN Reason: Excessive sedation or RR < 8 Home Medications ?Medication ?Instructions ?Recorded ?Confirmed ?Last Taken ?Type acetaminophen 325 mg tablet 650 mg PO Q6H PRN pain/fever 06/22/24 11/25/24 Unknown History hydroxyzine HCl 25 mg tablet 25 mg PO Q6H PRN Anxiety 06/22/24 11/25/24 Unknown History polyethylene glycol 3350 17 gram 17 g PO BEDTIME 06/22/24 11/25/24 06/21/24 20:00 History oral powder packet polyethylene glycol 3350 17 gram 17 g PO DAILY PRN Constipation 06/22/24 11/25/24 Unknown History oral powder packet sennosides 8.6 mg tablet (Senna 8.6 mg PO BEDTIME 06/22/24 11/25/24 06/21/24 20:00 History Lax) sennosides 8.6 mg tablet (senna) 8.6 mg PO DAILY PRN Constipation 06/22/24 11/25/24 Unknown History trazodone 50 mg tablet 50 mg PO BEDTIME 06/22/24 11/25/24 06/21/24 20:00 History trazodone 50 mg tablet 50 mg PO BEDTIME PRN Insomnia 06/22/24 11/25/24 Unknown History bisacodyl 10 mg rectal suppository 10 mg [place] DAILY PRN Constipation 07/03/24 11/25/24 Unknown History (Dulcolax (bisacodyl)) magnesium hydroxide 400 mg/5 mL 5 ml PO DAILY PRN Constipation 07/03/24 11/25/24 Unknown History oral suspension (Milk of Magnesia) sennosides 8.6 mg tablet (Senna 8.6 mg PO BEDTIME 07/03/24 11/25/24 Unknown History Lax) sodium phosphates 19 gram-7 118 ml UT DAILY PRN Dehydration 07/03/24 11/25/24 Unknown History gram/118 mL enema (Fleet Enema) cephalexin 500 mg capsule 500 mg PO QID 08/13/24 11/25/24 Unknown History Exam Height,Weight and Vital Signs: Height 5 ft 6 in Weight 85.729 kg Airway Mallampati Class: II TM Dist: >3cm Neck ROM: Full Heart: rrr Lungs: cta Assessment and Plan Assessment Anesthesia Assessment: Anesthesia Plan Discussed and Chart Reviewed Final Anesthetic Review Family History of Problems with Anesthesia: No History of Problems with Anesthesia: No NPO: Yes ASA Class: III Final Preanesthetic Review: No Changes in Pt Med Stat, Meds/Allgs Chart Reviewed and Consent Obtained/Reviewed Patient Risk: Intermediate Procedure Risk: Intermediate Anesthetic Plan Anesthetic Plan: GA Disposition: Standard PACU
--- NOTE | 2024-12-09 07:07 | P.HPSUR_ITS ---
Pre-Procedural Eval Section A - 24 Hr Update-Section A only Date of Service: 12/09/24 The patient is an INPATIENT: No Changes since office visit: Yes Patient answered all questions; No Cold of Flu in the past 2 weeks, No New Medical Problems and No Changes in Medication Section B - Complete if H&P > 30 days Chief Complaint: depression Details of Present Illness: pt with intrusive congregation delusional guilt aud harry denies si no new medical concerns Relevant Family History (Specify if Yes): No Relevant Social History: None History of Previous Operations: Relevant previous surgery/procedure and date(s) (ect) Allergies: Allergies Allergy/AdvReac Type Severity Reaction Status Date / Time trifluoperazine (From Allergy Unknown Verified 09/25/24 09:52 Stelazine) Review of Systems Sugical H&P ROS: Negative: Cardiovascular, Respiratory and Neurological and Yes, Specify: Psychiatric (no si pos harry inc guilt) and Musculoskeletal (walking independently with walker) Exam Surgical H&P Exam: Normal: HEENT, Normal: Heart, Normal: Lungs, Normal: Extremities, Normal: Skin and Normal: Neurological (no abn movt) Exam Comment: inc psychotic sx Plan Diagnosis/Plan: Unchanged I have reviewed the history and physical and performed a pertinent physical examination on my patient. No changes have occurred unless specified. Time Spent With Patient Time: Total time managing care of this patient today ____ minutes.
--- NOTE | 2024-12-09 08:23 | HO.ECTPROC ---
ECT Procedure Note Diagnosis/Treatment Date of Service: 12/09/24 Diagnosis: Schizoaffective Disorder Previous ECT Date: 09/04/24 Current Treatment Number: Other (17) Treatment: Maintenance Interval Clinical Notes: pt with some inc delusional guiltbut improved since last tx .No c/o s/e. No si feeling better generally Time: Total time managing care of this patient today __30__ minutes. ECT Settings Device: THYMATRON DGx Electrode Placement: Bifrontal Program/Pulse Width: 0.50 Energy Percent: 100 Seizure Duration By EEG (in seconds): 33 Medications Administration General Anesthetic: Etomidate (12) Muscle Relaxant: Succinylcholine (80) Ancillary Medications Anti-emetics: Zofran - Pre ECT (4) Airway Management Airway Management: Bag Mask Ventilation Treatment Recommendations No Changes Recommended: No change Notes: Schedule follow-up 1-2 wean as tolerated coordinate p garima engineering documentation specialist copy to crescencio jacob engineering documentation specialist Pt Tolerated Procedure w/o Issue: Yes
== END 2024-12-09 08:50 | disposition home or self-care (01) ==
PROVIDERS: PCP Internal Medicine; Visit Provider Psychiatry & Neurology Psychiatry
PROC: (CPT 90870; principal; 2024-12-09 07:00)
DX: F25.8 Other schizoaffective disorders (principal); F22 Delusional disorders; E11.22 Type 2 diabetes mellitus with diabetic chronic kidney disease; I12.9 Hypertensive chronic kidney disease with stage 1 through stage 4 chronic kidney disease, or unspecified chronic kidney disease; N18.30 Chronic kidney disease, stage 3 unspecified; D64.9 Anemia, unspecified; E78.2 Mixed hyperlipidemia; E03.9 Hypothyroidism, unspecified; Z79.899 Other long term (current) drug therapy; Z88.8 Allergy status to other drugs, medicaments and biological substances; Z87.891 Personal history of nicotine dependence
CPT/HCPCS: 90870; J0330; J1596; J1805; J2405; J2704

== ENCOUNTER → 2024-12-09 05:48 | Outpatient (BNV) | payer MEDICARE, MEDICAID, SELFPAY | PROVIDERS: PCP Internal Medicine; Visit Provider Psychiatry & Neurology Psychiatry | DX: F33.2 Major depressive disorder, recurrent severe without psychotic features (principal) | CPT/HCPCS: 90870 ==

== ENCOUNTER 2024-12-16 05:46 | Day surgery (SDC) | payer MEDICARE, MEDICAID, SELFPAY ==
--- OUTSIDE RECORDS SUMMARY | 2024-12-09 09:36 | XMS_ITS | Encounter Summary ---
Author Organization [facility] Address [address] [place] [id number] Phone Care Team Providers Care Wrap Yarn Sorter Name Role Phone Al Alcantara MD Primary Care Provider [phone] Al Alcantara MD Primary Care Provider Callum Field MD Primary Care Provider [phone] Callum Field MD Primary Care Provider Callum Field MD Primary Care Provider [phone] Encounter Details Date Type Department Care Team (Latest Contact Info) Description 02/20/2017 Transcribe Orders [facility] [address] [place] [address] Vinay Serrano MD [address], [place] [id number] Subchronic schizophrenia (Primary Dx) Social History Tobacco Use Types Packs/Day Years Used Date Smoking Tobacco: Never Assessed Comments Unknown Sex and Gender Information Value Date Recorded Sex Assigned at Female 04/29/2017 9:38 AM EST Legal Sex Female 10:00 PM EDT Gender Identity Female 04/29/2017 9:38 AM EST Sexual Orientation Straight 04/29/2017 9: 38 AM EST documented as of this encounter Plan of Treatment Upcoming Encounters Date Type Department Care Team (Late st Contact Info) Description 02/09/2025 3:45 PM EDT Appointment [facility], [facility] [address] [place] [address] Serafin Murray DO [address] [place] [address] documented as of this encounter Procedures Procedure Name Priority Date/Time Associated Diagnosis Comments CBC AND DIFFERENTIAL Routine 02/20/2017 11:31 AM EDT Subchronic schizophrenia documented in this encounter Results * (ABNORMAL) CBC and differential (02/20/2017 11:31 AM EDT) WBC 5.82 3.40 - 11.20 K/uL [facility] RBC 4.00 3.80 - 4.80 M/uL [facility] HGB 12.0 12.0 - 15.0 g/dL [facility] HCT 36.0 36.0 - 46.0 % [facility] PLT 218 130 - 400 K/uL [facility] MCV 90.0 79.0 - 98.0 fL [facility] MCH 30.0 27.0 - 34.8 pg [facility] MCHC 33.3 31.5 - 36.0 g/dL [facility] RDW 13.2 10.8 - 14.6 % [facility] MPV 10.7 9.4 - 12.4 fl [facility] NRBC 0.00 /100 WBCs [facility] ABSOLUTE NRBC 0.00 K/uL [facility] DIFF METHOD Auto [facility] NEUTS 52.6 45.30 - 77.70 % [facility] LYMPHS 29.9 12.30 - 39.70 % [facility] MONOS 8.1 4.10 - 12.80 % [facility] EOS 8.4(H) 0 - 7.2 % [facility] BASOS 0.7 0 - 2.80 % [facility] Granulocytes, immature (%) 0.3 0.0 - 0.9 % [facility] ABSOLUTE NEUTS 3.06 1.40 - 7.70 K/uL [facility] ABSOLUTE LYMPHS 1.74 0.60 - 3.20 K/uL [facility] ABSOLUTE MONOS 0.47 0.11 - 0.59 K/uL [facility] ABSOLUTE EOS 0.49 0.01 - 0.50 K/uL [facility] ABSOLUTE BASOS 0.04 0.00 - 0.08 K/uL [facility] Granulocytes, immature 0.02 0.00 - 0.05 K/uL [facility] Blood 02/20/2017 11:3 1 AM EDT 02/20/2017 11:34 AM EDT Vinay Serrano MD LAB BLOOD ORDERABLES Final Result Performing Organization Address City/State/[facility] Co de Phone Number [facility] [address] [place] [address] documented in this encounter Visit Diagnoses Diagnosis Subchronic schizophrenia- Primary Unspecified schizophrenia, subchronic condition documented in this encounter Additional Health Concerns Infection Onset Date Last Indicated Resolved Time CoV-Risk Comment:Neg covid 05/20/2022 05/21/2022 05/22/2022 6:[address] CoV-Risk 01/17/2024 01/17/2024 01/28/2024 1:22 AM EDT documented as of this encounter Care Teams Wrap Yarn Sorter Relationship Specialty Start Date End Date Al Alcantara MD [address] [place] [id number] [email or web address] PCP - General 02/04/17 06/09/19 Al Alcantara MD [address] [place] [id number] [email or web address] PCP - General Family Medicine 06/10/19 09/28/19 Callum Field MD [address] [place] [id number] [email or web address] PCP - General Family Medicine 09/29/19 12/27/22 Callum Field MD [address] [place] [id number] [email or web address] PCP - General Family Medicine 12/28/22 12/23/23 Callum Field MD [address] [place] [id number] [email or web address] PCP - General Family Medicine 12/24/23 documented as of this encounter Additional Source Comments The information contained in this document represents components of the legal health record. It is not the complete legal health record.[facility]
[2024-12-16] VITALS (8 sets, daily range): BP systolic 151–177; BP diastolic 90–101; PULSE 75–84; RESP 12–18; TEMP 36.1–36.6; O2SAT 94–95; BMI 30.7
--- NOTE | 2024-12-16 07:04 | MHC.SHP ---
Pre-Procedural Eval Section A - 24 Hr Update-Section A only Date of Service: 12/16/24 The patient is an INPATIENT: No Changes since office visit: Yes Patient answered all questions; No Cold of Flu in the past 2 weeks, No New Medical Problems and No Changes in Medication Section B - Complete if H&P > 30 days Chief Complaint: depression Details of Present Illness: doing better less psychotic preoccupation Relevant Family History (Specify if Yes): No Relevant Social History: None History of Previous Operations: Relevant previous surgery/procedure and date(s) (ect) Allergies: Allergies Allergy/AdvReac Type Severity Reaction Status Date / Time trifluoperazine (From Allergy Unknown Verified 09/25/24 09:52 Stelazine) Review of Systems Sugical H&P ROS: Negative: Cardiovascular, Respiratory and Neurological and Yes, Specify: Psychiatric (no si pos harry inc guilt but better ) and Musculoskeletal (walking independently with walker) Exam Surgical H&P Exam: Normal: HEENT, Normal: Heart, Normal: Lungs, Normal: Extremities, Normal: Skin and Normal: Neurological (no abn movt) Exam Comment: inc psychotic sx Plan Diagnosis/Plan: Unchanged I have reviewed the history and physical and performed a pertinent physical examination on my patient. No changes have occurred unless specified. Time Spent With Patient Time: Total time managing care of this patient today ____ minutes.
--- NOTE | 2024-12-16 07:04 | HO.ANESPROP2 ---
HPI - Anesthesia Eval Consult details Narrative: For ECT PMFSH Active Problems Active Problems: All Active Problems Fracture of right inferior pubic ramus (Acute) Fracture of superior ramus of right pubis (Acute) Arachnoid cyst (Acute) Diverticulosis (Chronic) Schizophrenia (Acute) Past Medical History Medical History Diverticulosis Schizophrenia CKD (chronic kidney disease) Hyperlipidemia Type 2 diabetes mellitus Hypothyroidism HTN (hypertension) GERD (gastroesophageal reflux disease) Mood disorder Family History Family history of problems with anesthesia: No Surgical History History of Problems with Anesthesia: No Social History Social History Household Members: None Household Members Other:: Lives at [facility] Housing: Assisted Living Facility Do you presently have visiting nurse or other home services: Yes Alcohol intake: current Alcohol intake frequency: does not drink Patient Tobacco Use Status: Former Tobacco user Tobacco use type: Cigarette Cigarette Packs Per Day: 3 Cigarettes Per Day: 60.0 Years Smoked: 16 Second Hand Smoke Exposure: No Advance Directives: No Advance Directives Information Provided: Yes service: No Current occupational status: retired Sexual orientation: Straight/Heterosexual Meds Allergies Allergy/AdvReac Type Severity Reaction Status Date / Time trifluoperazine (From Allergy Unknown Verified 09/25/24 09:52 Stelazine) Home Medications ?Medication ?Instructions ?Recorded ?Confirmed ?Last Taken ?Type acetaminophen 325 mg tablet 650 mg PO Q6H PRN pain/fever 06/22/24 11/25/24 Unknown History hydroxyzine HCl 25 mg tablet 25 mg PO Q6H PRN Anxiety 06/22/24 11/25/24 Unknown History polyethylene glycol 3350 17 gram 17 g PO BEDTIME 06/22/24 11/25/24 06/21/24 20:00 History oral powder packet polyethylene glycol 3350 17 gram 17 g PO DAILY PRN Constipation 06/22/24 11/25/24 Unknown History oral powder packet sennosides 8.6 mg tablet (Senna 8.6 mg PO BEDTIME 06/22/24 11/25/24 06/21/24 20:00 History Lax) sennosides 8.6 mg tablet (senna) 8.6 mg PO DAILY PRN Constipation 06/22/24 11/25/24 Unknown History trazodone 50 mg tablet 50 mg PO BEDTIME 06/22/24 11/25/24 06/21/24 20:00 History trazodone 50 mg tablet 50 mg PO BEDTIME PRN Insomnia 06/22/24 11/25/24 Unknown History bisacodyl 10 mg rectal suppository 10 mg [place] DAILY PRN Constipation 07/03/24 11/25/24 Unknown History (Dulcolax (bisacodyl)) magnesium hydroxide 400 mg/5 mL 5 ml PO DAILY PRN Constipation 07/03/24 11/25/24 Unknown History oral suspension (Milk of Magnesia) sennosides 8.6 mg tablet (Senna 8.6 mg PO BEDTIME 07/03/24 11/25/24 Unknown History Lax) sodium phosphates 19 gram-7 118 ml [place] DAILY PRN Dehydration 07/03/24 11/25/24 Unknown History gram/118 mL enema (Fleet Enema) cephalexin 500 mg capsule 500 mg PO QID 08/13/24 11/25/24 Unknown History Exam Height,Weight and Vital Signs: Height 5 ft 6 in Weight 86.183 kg Last Vital Signs Temp 97.8 F 12/16/24 06:35 Pulse 75 12/16/24 06:35 Resp 12 12/16/24 06:35 BP 151/90 H 12/16/24 06:35 Pulse Ox 95 12/16/24 06:35 O2 Del Method Room Air 12/16/24 06:35 Airway Mallampati Class: II TM Dist: <=3cm Neck ROM: Full Loose/Missing/Broken Teeth: No Heart: ok Lungs: ok Assessment and Plan Assessment Anesthesia Assessment: Anesthesia Plan Discussed and Chart Reviewed Final Anesthetic Review Family History of Problems with Anesthesia: No History of Problems with Anesthesia: No NPO: Yes ASA Class: III Final Preanesthetic Review: No Changes in Pt Med Stat, Meds/Allgs Chart Reviewed, Consent Obtained/Reviewed and Anes Risks/Benef Reviewed Patient Risk: Intermediate Procedure Risk: Intermediate Anesthetic Plan Anesthetic Plan: GA and Agree w/ Assess. and Plan Disposition: Standard PACU
--- NOTE | 2024-12-16 07:24 | HO.ECTPROC ---
ECT Procedure Note Diagnosis/Treatment Date of Service: 12/16/24 Diagnosis: Schizoaffective Disorder Previous ECT Date: 12/09/24 Current Treatment Number: Other (18) Treatment: Maintenance Interval Clinical Notes: pt with some delusional guilt feels weekly helpful some relapse sx last night no active si cont wkly for now Time: Total time managing care of this patient today ____ minutes. ECT Settings Device: THYMATRON DGx Electrode Placement: Bifrontal Program/Pulse Width: 0.50 Energy Percent: 100 Seizure Duration By EEG (in seconds): 51 Medications Administration General Anesthetic: Etomidate (12) Muscle Relaxant: Succinylcholine (80) Ancillary Medications Anti-emetics: Zofran - Post ECT Airway Management Airway Management: Bag Mask Ventilation Treatment Recommendations No Changes Recommended: No change
== END 2024-12-16 09:04 | disposition home or self-care (01) ==
PROVIDERS: PCP Internal Medicine; Visit Provider Psychiatry & Neurology Psychiatry
PROC: (CPT 90870; principal; 2024-12-16 07:30)
DX: F25.8 Other schizoaffective disorders (principal); F22 Delusional disorders; I12.9 Hypertensive chronic kidney disease with stage 1 through stage 4 chronic kidney disease, or unspecified chronic kidney disease; N18.30 Chronic kidney disease, stage 3 unspecified; E78.2 Mixed hyperlipidemia; D64.9 Anemia, unspecified; E03.9 Hypothyroidism, unspecified; Z79.899 Other long term (current) drug therapy; Z88.8 Allergy status to other drugs, medicaments and biological substances; Z87.891 Personal history of nicotine dependence
CPT/HCPCS: 90870; J0330; J2405

== ENCOUNTER → 2024-12-16 05:46 | Outpatient (BNV) | payer MEDICARE, MEDICAID, SELFPAY | PROVIDERS: PCP Internal Medicine; Visit Provider Psychiatry & Neurology Psychiatry | DX: F33.2 Major depressive disorder, recurrent severe without psychotic features (principal) | CPT/HCPCS: 90870 ==

== ENCOUNTER 2024-12-23 05:46 | Day surgery (SDC) | payer MEDICARE, MEDICAID, SELFPAY ==
--- OUTSIDE RECORDS SUMMARY | 2024-12-16 10:59 | XMS_ITS | Encounter Summary ---
Author Organization [facility] Address [address] [place] [phone] Phone Care Team Providers Care Nickel Plater Name Role Phone Al Alcantara MD Primary Care Provider Al Alcantara MD Primary Care Provider Callum Field MD Primary Care Provider [phone] Callum Field MD Primary Care Provider [phone] Callum Field MD Primary Care Provider [phone] Encounter Details Date Type Department Care Team (Latest Contact Info) Description 07/23/2017 Transcribe Orders [facility] Laboratory [address] [place] [address] Vinay Serrano MD [address] [place], [place] [phone] Subchronic schizophrenia (Primary Dx) Social History Tobacco Use Types Packs/Day Years Used Date Smoking Tobacco: Former Cigarettes Q uit: 1999 Smokeless Tobacco: Never Alcohol Use Standard Drinks/Week Comments No 0 (1 standard drink = 0.6 oz pur e alcohol) Comments Unknown Sex and Gender Information Value Date Recorded Sex Assigned at Female 04/29/2017 9:38 AM EST Legal Sex Female 10:00 PM EDT Gender Identity Female 04/29/2017 9:38 AM EST Sexual Orientation Straight 04/29/2017 9: 38 AM EST documented as of this encounter Plan of Treatment Upcoming Encounters Date Type Department Care Team (Late st Contact Info) Description 02/09/2025 3:45 PM EDT Appointment [facility], [facility] [address] [place] [address] Murray, Serafin, [address] [place] [address] documented as of this encounter Results * (ABNORMAL) CBC and differential (07/23/2017 1:16 PM EDT) WBC 7.36 3.40 - 11.20 K/uL [facility] RBC 3.69(L) 3.80 - 4.80 M/uL [facility] HGB 11.3(L) 12.0 - 15.0 g/dL [facility] HCT 33.3(L) 36.0 - 46.0 % [facility] PLT 261 130 - 400 K/uL [facility] MCV 90.2 79.0 - 98.0 fL [facility] MCH 30.6 27.0 - 34.8 pg [facility] MCHC 33.9 31.5 - 36.0 g/dL [facility] RDW 13.4 10.8 - 14.6 % [facility] MPV 10.6 9.4 - 12.4 fl [facility] NRBC 0.00 /100 WBCs [facility] ABSOLUTE NRBC 0.00 K/uL [facility] DIFF METHOD Auto [facility] NEUTS 71.9 45.30 - 77.70 % [facility] LYMPHS 18.2 12.30 - 39.70 % [facility] MONOS 7.1 4.10 - 12.80 % [facility] EOS 1.8 0 - 7.2 % [facility] BASOS 0.7 0 - 2.80 % [facility] Granulocytes, immature (%) 0.3 0.0 - 0.9 % [facility] ABSOLUTE NEUTS 5.30 1.40 - 7.70 K/uL [facility] ABSOLUTE LYMPHS 1.34 0.60 - 3.20 K/uL [facility] ABSOLUTE MONOS 0.52 0.11 - 0.59 K/uL [facility] ABSOLUTE EOS 0.13 0.01 - 0.50 K/uL [facility] ABSOLUTE BASOS 0.05 0.00 - 0.08 K/uL [facility] Granulocytes, immature 0.02 0.00 - 0.05 K/uL [facility] Blood 07/23/2017 1:16 PM EDT 07/23/2017 1:18 PM EDT Vinay Serrano MD LAB BLOOD ORDERABLES Final Result [facility] 30 [place] [address] documented in this encounter Visit Diagnoses Diagnosis Subchronic schizophrenia- Primary Unspecified schizophrenia, subchronic condition documented in this encounter Additional Health Concerns Infection Onset Date Last Indicated Resolved Time CoV-Risk Comment:Neg covid 05/20/2022 05/21/2022 05/22/2022 6:[address] CoV-Risk 01/17/2024 01/17/2024 01/28/2024 1:22 AM EDT documented as of this encounter Care Teams Nickel Plater Relationship Specialty Start Date End Date Al Alcantara MD [address] [place] [phone] [email or web address] PCP - General 02/04/17 06/09/19 Al Alcantara MD [address] [place] [phone] [email or web address] PCP - General Family Medicine 06/10/19 09/28/19 Callum Field MD [address] [place] [address] [email or web address] PCP - General Family Medicine 09/29/19 12/27/22 Callum Field MD [address] [place] [phone] [email or web address] PCP - General Family Medicine 12/28/22 12/23/23 Callum Field MD [address] [place] [address] [email or web address] PCP - General Family Medicine 12/24/23 documented as of this encounter Additional Source Comments The information contained in this document represents components of the legal health record. It is not the complete legal health record.[facility]
--- OUTSIDE RECORDS SUMMARY | 2024-12-16 10:59 | XMS_ITS | Encounter Summary ---
Author Organization [facility] Address [address] [address] Phone Care Team Providers Care Cell Technician Name Role Phone Al Alcantara MD Primary Care Provider [phone] Al Alcantara MD Primary Care Provider Callum Field MD Primary Care Provider [phone] Callum Field MD Primary Care Provider [phone] Callum Field MD Primary Care Provider [phone] Encounter Details Date Type Department Care Team (Latest Contact Info) Description 05/28/2017 Transcribe Orders [facility] Laboratory 30 [place] [address] Vinay Serrano MD 50 [place], [place] [phone] Chronic schizophrenia (Primary Dx) Social History Tobacco Use [...] Info) Description 02/09/2025 3:45 PM EDT Appointment [facility], [facility] 30 [place] [address] Murray, DO Serafin [address] [place] [address] documented as of this encounter Results * (ABNORMAL) CBC and differential (05/28/2017 3:23 PM EST) WBC 7.56 3.40 - 11.20 K/uL [facility] RBC 3.57(L) 3.80 - 4.80 M/uL [facility] HGB 10.8(L) 12.0 - 15.0 g/dL [facility] HCT 33.1(L) 36.0 - 46.0 % [facility] PLT 258 130 - 400 K/uL [facility] MCV 92.7 79.0 - 98.0 fL [facility] MCH 30.3 27.0 - 34.8 pg [facility] MCHC 32.6 31.5 - 36.0 g/dL [facility] RDW 13.9 10.8 - 14.6 % [facility] MPV 10.2 9.4 - 12.4 fl [facility] NRBC 0.00 /100 WBCs [facility] ABSOLUTE NRBC 0.00 K/uL [facility] DIFF METHOD Auto [facility] NEUTS 71.5 45.30 - 77.70 % [facility] LYMPHS 19.8 12.30 - 39.70 % [facility] MONOS 6.5 4.10 - 12.80 % [facility] EOS 1.5 0 - 7.2 % [facility] BASOS 0.4 0 - 2.80 % [facility] Granulocytes, immature (%) 0.3 0.0 - 0.9 % [facility] ABSOLUTE NEUTS 5.41 1.40 - 7.70 K/uL [facility] ABSOLUTE LYMPHS 1.50 0.60 - 3.20 K/uL [facility] ABSOLUTE MONOS 0.49 0.11 - 0.59 K/uL [facility] ABSOLUTE EOS 0.11 0.01 - 0.50 K/uL [facility] ABSOLUTE BASOS 0.03 0.00 - 0.08 K/uL [facility] Granulocytes, immature 0.02 0.00 - 0.05 K/uL [facility] Blood 05/28/2017 3:23 PM EST 05/28/2017 3:25 PM EST Vinay Serrano MD LAB BLOOD ORDERABLES Final Result [facility] 30 [place] [address] documented in this encounter Visit Diagnoses Diagnosis Chronic schizophrenia- Primary Unspecified schizophrenia, chronic condition documented in this encounter Additional Health Concerns Infection Onset Date Last Indicated Resolved Time CoV-Risk Comment:Neg covid 05/20/2022 05/21/2022 05/22/2022 6:[address] CoV-Risk 01/17/2024 01/17/2024 01/28/2024 1:22 AM EDT documented as of this encounter Care Teams Cell Technician Relationship Specialty Start Date End Date Al Alcantara MD [address] [place] [phone] [email or web address] PCP - General 02/04/17 06/09/19 Al Alcantara MD [address] [place] [address] [email or web address] PCP - General Family Medicine 06/10/19 09/28/19 Callum Field MD [address] [place] [phone] PCP - General Family Medicine 09/29/19 12/27/22 Callum Field MD [address] [place] [phone] PCP - General Family Medicine 12/28/22 12/23/23 Callum Field MD [address] [place] [phone] [email or web address] PCP - General Family Medicine 12/24/23 documented as of this encounter Additional Source Comments The information contained in this document represents components of the legal health record. It is not the complete legal health record.[facility]
--- OUTSIDE RECORDS SUMMARY | 2024-12-16 10:59 | XMS_ITS | Encounter Summary ---
Author Organization [facility] Address [address] 6[address] [place] [address] Phone Care Team Providers Care Cooking Appliance Repair Technician Name Role Phone Callum Field MD Primary Care Provider [phone] Callum Field MD Primary Care Provider [phone] Callum Field MD Primary Care Provider [phone] Encounter Details Date Type Department Care Team (Late st Contact Info) Description 09/25/2022 Ancillary Orders Virtual Department [address] [place] [address] Mei Rodriguez MD [address] [place] [address] [email or web address] Osteopenia, unspecified location; Other specified disorders of bone density and structure, unspecified site Social History Tobacco Use Types Packs/Day Years Used Date Smoking Tobacco: Former Cigarettes Q uit: 1998 Smokeless Tobacco: Never Alcohol Use Standard Drinks/Week Comments No 0 (1 standard drink = 0.6 oz pur e alcohol) Education Answer Date Recorded Are you interested in more education? Not on sofi e 08/17/2022 Are you concerned about learning? Not on file 08/17/2022 No 08/17/2022 No 08/17/2022 Digital Access Answer Date Recorded No 09/15/2022 No 09/15/2022 Reliable internet access at home? Not on file 09/15/2022 Device with a working camera? Not on file Comments Unknown Sex and Gender Information Value Date Recorded Sex Assigned at Female 04/29/2017 9:38 AM EST Legal Sex Female 10:00 PM EDT Gender Identity Female 04/29/2017 9:38 AM EST Sexual Orientation Straight 04/29/2017 9: 38 AM EST documented as of this encounter Plan of Treatment Upcoming Encounters Date Type Department Care Team (Late st Contact Info) Description 02/09/2025 3:45 PM EDT Appointment [facility], Bone Density - [facility] [address] [place] [address] Serafin Murray DO [address] [place] [address] documented as of this encounter Visit Diagnoses Diagnosis Osteopenia, unspecified location Other specified disorders of bone density and structure, unspecified site documented in this encounter Additional Health Concerns Infection Onset Date Last Indicated Resolved Time CoV-Risk 01/17/2024 01/17/2024 01/28/2024 1:22 AM EDT documented as of this encounter Care Teams Cooking Appliance Repair Technician Relationship Specialty Start Date End Date Callum Field MD PCP - General Family Medicine 09/29/19 12/27/22 Callum Field MD PCP - General Family Medicine 12/28/22 12/23/23 Callum Field MD [address] [place] [phone] PCP - General Family Medicine 12/24/23 documented as of this encounter Additional Source Comments The information contained in this document represents components of the legal health record. It is not the complete legal health record.[facility]
--- OUTSIDE RECORDS SUMMARY | 2024-12-16 10:59 | XMS_ITS | Encounter Summary ---
Author Organization [facility] Address [address] [place] [address] Phone Care Team Providers Care Loan Operations Manager Name Role Phone Al Alcantara MD Primary Care Provider [phone] Al Alcantara MD Primary Care Provider Callum Field MD Primary Care Provider [phone] Callum Field MD Primary Care Provider [phone] Callum Field MD Primary Care Provider [phone] Encounter Details Date Type Department Care Team (Latest Contact Info) Description 11/12/2017 Transcribe Orders [facility] Laboratory [address] [place] [address] Vinay Serrano MD [address] [place], [place] [phone] Subchronic schizophrenia (Primary Dx) Social History Tobacco [...] Info) Description 02/09/2025 3:45 PM EDT Appointment [facility], [facility] [address] [place] [address] Serafin Murray DO [address] [place] [address] documented as of this encounter Visit Diagnoses Diagnosis Subchronic schizophrenia- Primary Unspecified schizophrenia, subchronic condition documented in this encounter Additional Health Concerns Infection Onset Date Last Indicated Resolved Time CoV-Risk Comment:Neg covid 05/20/2022 05/21/2022 05/22/2022 6:[address] CoV-Risk 01/17/2024 01/17/2024 01/28/2024 1:22 AM EDT documented as of this encounter Care Teams Loan Operations Manager Relationship Specialty Start Date End Date Al Alcantara MD [address] [place] [phone] [email or web address] PCP - General 02/04/17 06/09/19 Al Alcantara MD [address] [place] [phone] [email or web address] PCP - General Family Medicine 06/10/19 09/28/19 Callum Field MD [address] [place] [phone] PCP - General Family Medicine 09/29/19 12/27/22 Callum Field MD [address] [place] [phone] [email or web address] PCP - General Family Medicine 12/28/22 12/23/23 Callum Field MD [address] [place] [phone] PCP - General Family Medicine 12/24/23 documented as of this encounter Additional Source Comments The information contained in this document represents components of the legal health record. It is not the complete legal health record.[facility]
--- OUTSIDE RECORDS SUMMARY | 2024-12-16 10:59 | XMS_ITS | Encounter Summary ---
Author Organization [facility] Address [address] [place] [address] Phone Care Team Providers Care Local Intermodal Truck Driver Name Role Phone Al Alcantara MD Primary Care Provider [phone] Al Alcantara MD Primary Care Provider [phone] Callum Field MD Primary Care Provider [phone] Callum Field MD Primary Care Provider Callum Field MD Primary Care Provider [phone] Encounter Details Date Type Department Care Team (Latest Contact Info) Description 04/02/2017 Transcribe Orders [facility] Laboratory [address] [place] [address] Vinay Serrano MD [address] [place] [address] [phone] Subchronic schizophrenia (Primary Dx) Social History Tobacco [...] Info) Description 02/09/2025 3:45 PM EDT Appointment [facility], [facility] [address] [place] [address] Serafin Murray DO [address] [place] [phone] documented as of this encounter Procedures Procedure Name Priority Date/Time Associated Diagnosis Comments CBC AND DIFFERENTIAL Routine 04/02/2017 2:23 PM EST Subchronic schizophrenia documented in this encounter Results * (ABNORMAL) CBC and differential (04/02/2017 2:23 PM EST) WBC 7.60 3.40 - 11.20 K/uL [facility] RBC 3.80 3.80 - 4.80 M/uL [facility] HGB 11.4(L) 12.0 - 15.0 g/dL [facility] HCT 34.4(L) 36.0 - 46.0 % [facility] PLT 240 130 - 400 K/uL [facility] MCV 90.5 79.0 - 98.0 fL [facility] MCH 30.0 27.0 - 34.8 pg [facility] MCHC 33.1 31.5 - 36.0 g/dL [facility] RDW 13.3 10.8 - 14.6 % [facility] MPV 10.7 9.4 - 12.4 fl [facility] NRBC 0.00 /100 WBCs [facility] ABSOLUTE NRBC 0.00 K/uL [facility] DIFF METHOD Auto [facility] NEUTS 63.0 45.30 - 77.70 % [facility] LYMPHS 22.0 12.30 - 39.70 % [facility] MONOS 9.2 4.10 - 12.80 % [facility] EOS 4.7 0 - 7.2 % [facility] BASOS 0.8 0 - 2.80 % [facility] Granulocytes, immature (%) 0.3 0.0 - 0.9 % [facility] ABSOLUTE NEUTS 4.79 1.40 - 7.70 K/uL [facility] ABSOLUTE LYMPHS 1.67 0.60 - 3.20 K/uL [facility] ABSOLUTE MONOS 0.70(H) 0.11 - 0.59 K/uL [facility] ABSOLUTE EOS 0.36 0.01 - 0.50 K/uL [facility] ABSOLUTE BASOS 0.06 0.00 - 0.08 K/uL [facility] Granulocytes, immature 0.02 0.00 - 0.05 K/uL [facility] Blood 04/02/2017 2:23 PM EST 04/02/2017 2:25 PM EST Vinay Serrano MD LAB BLOOD ORDERABLES Final Result Performing Organization Address City/State/[facility] Co de Phone Number [facility] [address] [place] [address] documented in this encounter Visit Diagnoses Diagnosis Subchronic schizophrenia- Primary Unspecified schizophrenia, subchronic condition documented in this encounter Additional Health Concerns Infection Onset Date Last Indicated Resolved Time CoV-Risk Comment:Neg covid 05/20/2022 05/21/2022 05/22/2022 6:[address] CoV-Risk 01/17/2024 01/17/2024 01/28/2024 1:22 AM EDT documented as of this encounter Care Teams Local Intermodal Truck Driver Relationship Specialty Start Date End Date Al Alcantara MD [address] [place] [phone] [email or web address] PCP - General 02/04/17 06/09/19 Al Alcantara MD [address] [place] [address] [email or web address] PCP - General Family Medicine 06/10/19 09/28/19 Callum Field MD [address] [place] [phone] [email or web address] PCP - General Family Medicine 09/29/19 12/27/22 Callum Field MD [address] [place] [phone] [email or web address] PCP - General Family Medicine 12/28/22 12/23/23 Callum Field MD [address] [place] [phone] [email or web address] PCP - General Family Medicine 12/24/23 documented as of this encounter Additional Source Comments The information contained in this document represents components of the legal health record. It is not the complete legal health record.[facility]
--- OUTSIDE RECORDS SUMMARY | 2024-12-16 10:59 | XMS_ITS | Encounter Summary ---
Author Organization [facility] Address [address] [place] [address] Phone Care Team Providers Care Typewriter Tester Name Role Phone Callum Field MD Primary Care Provider [phone] Callum Field MD Primary Care Provider [phone] Callum Field MD Primary Care Provider [phone] Encounter Details Date Type Department Care Team (Late st Contact Info) Description 09/25/2022 Transcribe Orders Virtual Department [address] [place] [address] Mei Rodriguez MD [address] [place] [address] [email or web address] Osteopenia, unspecified location Social History Tobacco Use Types Packs/Day Years [...] Info) Description 02/09/2025 3:45 PM EDT Appointment [facility], Bone Density - [facility] [address] [place] [address] Serafin Murray DO [address] [place] [address] documented as of this encounter Visit Diagnoses Diagnosis Osteopenia, unspecified location documented in this encounter Additional Health Concerns Infection Onset Date Last Indicated Resolved Time CoV-Risk 01/17/2024 01/17/2024 01/28/2024 1:22 AM EDT documented as of this encounter Care Teams Typewriter Tester Relationship Specialty Start Date End Date Callum Field MD PCP - General Family Medicine 09/29/19 12/27/22 Callum Field MD PCP - General Family Medicine 12/28/22 12/23/23 Callum Field MD [address] [place] [phone] PCP - General Family Medicine 12/24/23 documented as of this encounter Additional Source Comments The information contained in this document represents components of the legal health record. It is not the complete legal health record.[facility]
--- OUTSIDE RECORDS SUMMARY | 2024-12-16 10:59 | XMS_ITS | Encounter Summary ---
Author Organization Formerly [facility] Address [address] [place] [address] Phone Care Team Providers Care Door And Arrival Attendant Name Role Phone Al Alcantara MD Primary Care Provider Al Alcantara MD Primary Care Provider [phone] Callum Field MD Primary Care Provider [phone] Callum Field MD Primary Care Provider [phone] Callum Field MD Primary Care Provider [phone] Encounter Details Date Type Department Care Team (Latest Contact Info) Description 05/01/2017 Transcribe Orders [facility] Laboratory [address] [place] [address] Vinay Serrano MD [address] [place], [place] [id number] Subchronic schizophrenia (Primary Dx) Social History Tobacco [...] Description 02/09/2025 3:45 PM EDT Appointment [facility], [facility] [address] [place] [address] Trevor DO Serafin [address] [place] [address] documented as of this encounter Procedures Procedure Name Priority Date/Time Associated Diagnosis Comments CBC AND DIFFERENTIAL Routine 05/01/2017 10:51 AM EST Subchronic schizophrenia documented in this encounter Results * (ABNORMAL) CBC and differential (05/01/2017 10:51 AM EST) WBC 6.68 3.40 - 11.20 K/uL [facility] RBC 3.53(L) 3.80 - 4.80 M/uL [facility] HGB 10.6(L) 12.0 - 15.0 g/dL [facility] HCT 33.0(L) 36.0 - 46.0 % [facility] PLT 351 130 - 400 K/uL [facility] MCV 93.5 79.0 - 98.0 fL [facility] MCH 30.0 27.0 - 34.8 pg [facility] MCHC 32.1 31.5 - 36.0 g/dL [facility] RDW 14.2 10.8 - 14.6 % [facility] MPV 10.0 9.4 - 12.4 [facility] NRBC 0.00 /100 WBCs [facility] ABSOLUTE NRBC 0.00 K/uL [facility] DIFF METHOD Auto [facility] NEUTS 64.6 45.30 - 77.70 % [facility] LYMPHS 20.7 12.30 - 39.70 % [facility] MONOS 9.1 4.10 - 12.80 % [facility] EOS 4.3 0 - 7.2 % [facility] BASOS 1.2 0 - 2.80 % [facility] Granulocytes, immature (%) 0.1 0.0 - 0.9 % [facility] ABSOLUTE NEUTS 4.31 1.40 - 7.70 K/uL [facility] ABSOLUTE LYMPHS 1.38 0.60 - 3.20 K/uL [facility] ABSOLUTE MONOS 0.61(H) 0.11 - 0.59 K/uL [facility] ABSOLUTE EOS 0.29 0.01 - 0.50 K/uL [facility] ABSOLUTE BASOS 0.08 0.00 - 0.08 K/uL [facility] Granulocytes, immature 0.01 0.00 - 0.05 K/uL [facility] Blood 05/01/2017 10:5 1 AM EST 05/01/2017 10:53 AM EST us Vinay Serrano MD LAB BLOOD ORDERABLES Final Result [facility] [address] [place] [address] documented in this encounter Visit Diagnoses Diagnosis Subchronic schizophrenia- Primary Unspecified schizophrenia, subchronic condition documented in this encounter Additional Health Concerns Infection Onset Date Last Indicated Resolved Time CoV-Risk Comment:Neg covid 05/20/2022 05/21/2022 05/22/2022 6:[address] CoV-Risk 01/17/2024 01/17/2024 01/28/2024 1:22 AM EDT documented as of this encounter Care Teams Door And Arrival Attendant Relationship Specialty Start Date End Date Al Alcantara MD [address] [place] [phone] [email or web address] PCP - General 02/04/17 06/09/19 Al Alcantara MD [address] [place] [address] [email or web address] PCP - General Family Medicine 06/10/19 09/28/19 Callum Field MD [address] [place] [address] [email or web address] PCP - General Family Medicine 09/29/19 12/27/22 Callum Field MD [address] [place] [address] [email or web address] PCP - General Family Medicine 12/28/22 12/23/23 Callum Field MD [address] [place] [phone] [email or web address] PCP - General Family Medicine 12/24/23 documented as of this encounter Additional Source Comments The information contained in this document represents components of the legal health record. It is not the complete legal health record.[facility]
--- OUTSIDE RECORDS SUMMARY | 2024-12-16 10:59 | XMS_ITS | Encounter Summary ---
Author Organization [facility] Address [address] [place] [address] Phone Care Team Providers Care Swimming Pool Attendant Name Role Phone Callum Field MD Primary Care Provider [phone] Callum Field MD Primary Care Provider [phone] Callum Field MD Primary Care Provider [phone] Encounter Details Date Type Department Care Team (Late st Contact Info) Description 05/20/2022 Procedure Pass [facility], Ct Scan - [facility] [address] [place], [place] [phone] Social History Tobacco Use Types Packs/Day Years [...] AM EST documented as of this encounter Functional Status * Calculated C-SSRS Risk Score (Lifetime/Recent) Answer Date of Assessment Author No Risk Indicated 05/21/2022 5:07 PM Rena Rodriguez RN * [place] Suicide Severity Rating Scale (Screener/Recent Self-Report) Question Answer Date of Assessment Author 1. Wish to be (Past 1 Month) No 023 5:07 PM Rena Rodriguez RN 2. Non-Specific Active Suici nicola Thoughts (Past 1 Month) No 05/21/2022 5:07 PM Kumar Rodriguez RN 6. Suicidal Behavior (Lifetime) No 5:07 PM Rena Rodriguez RN documented as of this encounter Plan of Treatment Upcoming Encounters Date Type Department Care Team (Late st Contact Info) Description 02/09/2025 3:45 PM EDT Appointment [facility], Bone Density - [facility] [address] [place] [address] Serafin Murray DO [address] [place] [address] documented as of this encounter Visit Diagnoses Not on filedocumented in this encounter Additional Health Concerns Infection Onset Date Last Indicated Resolved Time CoV-Risk Comment:Neg covid 05/20/2022 05/21/2022 05/22/2022 6:[address] CoV-Risk 01/17/2024 01/17/2024 01/28/2024 1:22 AM EDT documented as of this encounter Care Teams Swimming Pool Attendant Relationship Specialty Start Date End Date Callum Field MD PCP - General Family Medicine 09/29/19 12/27/22 Callum Field MD PCP - General Family Medicine 12/28/22 12/23/23 Callum Field MD [address] [place] [address] [email or web address] PCP - General Family Medicine 12/24/23 documented as of this encounter Additional Source Comments The information contained in this document represents components of the legal health record. It is not the complete legal health record.[facility]
--- OUTSIDE RECORDS SUMMARY | 2024-12-16 10:59 | XMS_ITS | Encounter Summary ---
Author Organization Loc[facility] Address [address] [place] [address] Phone Care Team Providers Care Stencil Cutter Name Role Phone Callum Field MD Primary Care Provider [phone] Encounter Details Date Type Department Care Team (Latest Contact Info) Description 09/07/2024 Transcribe Orders Virtual Department 30 [place] [address] Serafin Murray DO [address] [place] [phone] Asymptomatic menopausal state (Primary Dx) Social History Tobacco Use Types [...] with a working camera? Not on file Intimate Partner Violence Answer Date R ecorded Are you denied basic needs s uch as food, clothing, or medical care? No 01/17/2024 In the past 12 months have y ou been in a relationship with a person who hurts, threatens, or tries to control you? No 01/17/2024 Are you denied basic needs s uch as food, clothing, or medical care? No 01/17/2024 In the past 12 months have y ou been in a relationship with a person who hurts, threatens, or tries to control you? No 01/17/2024 Comments Unknown Sex and Gender Information Value Date Recorded Sex Assigned at Female 04/29/2017 9:38 AM EST Legal Sex Female 10:00 PM EDT Gender Identity Female 04/29/2017 9:38 AM EST Sexual Orientation Straight 04/29/2017 9: 38 AM EST documented as of this encounter Plan of Treatment Upcoming Encounters Date Type Department Care Team (Late st Contact Info) Description 02/09/2025 3:45 PM EDT Appointment [facility], Bone Density - [address] [address] Serafin Murray DO [address] [place] [address] Scheduled Orders Name Type Priority Associated Diagnoses Orde r Schedule DXA Screening Imaging Routine Asymptomatic menopausal state Expected: 10/07/2024, Expires: 09/07/2025 documented as of this encounter Visit Diagnoses Diagnosis Asymptomatic menopausal state- Primary documented in this encounter Care Teams Stencil Cutter Relationship Specialty Start Date End Date Callum Field MD [address] [place] [phone] [email or web address] PCP - General Family Medicine 12/24/23 documented as of this encounter Additional Source Comments The information contained in this document represents components of the legal health record. It is not the complete legal health record.[facility]
--- OUTSIDE RECORDS SUMMARY | 2024-12-16 10:59 | XMS_ITS | Encounter Summary ---
Author Organization [facility] Address [address] [place] [address] Phone Care Team Providers Care Financial Reporting Accountant Name Role Phone Al Alcantara MD Primary Care Provider Al Alcantara MD Primary Care Provider [phone] Callum Field MD Primary Care Provider [phone] Callum Field MD Primary Care Provider [phone] Callum Field MD Primary Care Provider [phone] Encounter Details Date Type Department Care Team (Latest Contact Info) Description 08/21/2017 Transcribe Orders [facility] Laboratory [address] [place] [address] Vinay Serrano MD [address] [place], [place] [phone] Subchronic schizophrenia (Primary Dx) Social History Tobacco [...] Description 02/09/2025 3:45 PM EDT Appointment [facility], [facility] [address] [place] [address] Serafin Murray DO [address] [place] [address] documented as of this encounter Visit Diagnoses Diagnosis Subchronic schizophrenia- Primary Unspecified schizophrenia, subchronic condition documented in this encounter Additional Health Concerns Infection Onset Date Last Indicated Resolved Time CoV-Risk Comment:Neg covid 05/20/2022 05/21/2022 05/22/2022 6:[address] CoV-Risk 01/17/2024 01/17/2024 01/28/2024 1:22 AM EDT documented as of this encounter Care Teams Financial Reporting Accountant Relationship Specialty Start Date End Date Al Alcantara MD [address] [place] [phone] [email or web address] PCP - General 02/04/17 06/09/19 Al Alcantara MD [address] [place] [phone] [email or web address] PCP - General Family Medicine 06/10/19 09/28/19 Callum Field MD [address] [place] [address] [email or web address] PCP - General Family Medicine 09/29/19 12/27/22 Callum Field MD [address] [place] [phone] PCP - General Family Medicine 12/28/22 12/23/23 Callum Field MD [address] [place] [phone] [email or web address] PCP - General Family Medicine 12/24/23 documented as of this encounter Additional Source Comments The information contained in this document represents components of the legal health record. It is not the complete legal health record.[facility]
--- OUTSIDE RECORDS SUMMARY | 2024-12-16 10:59 | XMS_ITS | Encounter Summary ---
Author Organization [facility] Address [address] [place] [address] Phone Care Team Providers Care Transmission Assembler Name Role Phone Al Alcantara MD Primary Care Provider [phone] Al Alcantara MD Primary Care Provider Callum Field MD Primary Care Provider [phone] Callum Field MD Primary Care Provider Callum Field MD Primary Care Provider [phone] Encounter Details Date Type Department Care Team (Late st Contact Info) Description 03/09/2017 Transcribe Orders [facility] Laboratory [address] [place] [address] Vinay Serrano MD [address] [place] [phone] Drug therapy (Primary Dx) Social History Tobacco Use Types [...] Info) Description 02/09/2025 3:45 PM EDT Appointment [facility], Bone [facility] - [facility] [address] [place] [address] Serafin Murray DO [address] [place] [id number] documented as of this encounter Procedures Procedure Name Priority Date/Time Associated Diagnosis Comments CBC AND DIFFERENTIAL Routine 03/09/2017 10:16 AM EST Drug therapy documented in this encounter Results * (ABNORMAL) CBC and differential (03/09/2017 10:16 AM EST) WBC 5.93 3.40 - 11.20 K/uL [facility] RBC 3.86 3.80 - 4.80 M/uL [facility] HGB 11.7(L) 12.0 - 15.0 g/dL [facility] HCT 34.8(L) 36.0 - 46.0 % [facility] PLT 238 130 - 400 K/uL [facility] MCV 90.2 79.0 - 98.0 fL [facility] MCH 30.3 27.0 - 34.8 pg [facility] MCHC 33.6 31.5 - 36.0 g/dL [facility] RDW 13.2 10.8 - 14.6 % [facility] MPV 10.2 9.4 - 12.4 fl [facility] NRBC 0.00 /100 WBCs [facility] ABSOLUTE NRBC 0.00 K/uL [facility] DIFF METHOD Auto [facility] NEUTS 54.0 45.30 - 77.70 % [facility] LYMPHS 30.5 12.30 - 39.70 % [facility] MONOS 8.6 4.10 - 12.80 % [facility] EOS 5.4 0 - 7.2 % [facility] BASOS 1.3 0 - 2.80 % [facility] Granulocytes, immature (%) 0.2 0.0 - 0.9 % [facility] ABSOLUTE NEUTS 3.20 1.40 - 7.70 K/uL [facility] ABSOLUTE LYMPHS 1.81 0.60 - 3.20 K/uL [facility] ABSOLUTE MONOS 0.51 0.11 - 0.59 K/uL [facility] ABSOLUTE EOS 0.32 0.01 - 0.50 K/uL [facility] ABSOLUTE BASOS 0.08 0.00 - 0.08 K/uL [facility] Granulocytes, immature 0.01 0.00 - 0.05 K/uL [facility] Blood 03/09/2017 10:1 6 AM EST 03/09/2017 10:18 AM EST Vinay Serrano MD LAB BLOOD ORDERABLES Final Result Performing Organization Address City/State/[facility] Co de Phone Number [facility] [address] [place] [address] documented in this encounter Visit Diagnoses Diagnosis Drug therapy- Primary Encounter for other specified aftercare documented in this encounter Additional Health Concerns Infection Onset Date Last Indicated Resolved Time CoV-Risk Comment:Neg covid 05/20/2022 05/21/2022 05/22/2022 6:[address] CoV-Risk 01/17/2024 01/17/2024 01/28/2024 1:22 AM EDT documented as of this encounter Care Teams Transmission Assembler Relationship Specialty Start Date End Date Al Alcantara MD [address] [place] [phone] [email or web address] PCP - General 02/04/17 06/09/19 Al Alcantara MD [address] [place] [phone] [email or web address] PCP - General Family Medicine 06/10/19 09/28/19 Callum Field MD [address] [place] [phone] [email or web address] PCP - General Family Medicine 09/29/19 12/27/22 Callum Field MD [address] [place] [phone] [email or web address] PCP - General Family Medicine 12/28/22 12/23/23 Callum Field MD [address] [place] [phone] [email or web address] PCP - General Family Medicine 12/24/23 documented as of this encounter Additional Source Comments The information contained in this document represents components of the legal health record. It is not the complete legal health record.[facility]
--- OUTSIDE RECORDS SUMMARY | 2024-12-16 10:59 | XMS_ITS | Clinical Summary ---
Author Organization [facility] Address [address] [facility] [address] [place] [address] Phone Care Team Providers Care Electrotype Molder Name Role Phone Callum Field MD Primary Care Provider [phone] Allergies Active Allergy Reactions Criticality Noted Date Comments Trifluoperazine Other (See Comments) Medium 01/27/2013 Eye problems Medications risperiDONE (RISPERDAL) 3 MG tablet Take 6 mg by mouth Every Afternoon. At 2pm 01/23/2022 Active cloZAPine (CLOZARIL) 100 MG tablet Take 300 mg by mouth nightly at bedtime. 01/23/2022 Active lamoTRIgine (LAMICTAL) 25 MG IMMEDIATE release tablet Take 25 mg by mouth 3 (three) times a day. 01/21/2022 Active apixaban (ELIQUIS) 5 mg tablet Take 5 mg by mouth 2 (two) times a day. 01/28/2022 Active famotidine (PEPCID) 20 MG tablet Take 20 mg by mouth daily. 01/23/2022 Active levothyroxine (SYNTHROID, LEVOTHROID) 75 MCG tablet Take 75 mcg by mouth every morning. 01/23/2022 Active lisinopril (PRINIVIL,ZESTR IL) 2.5 MG tablet Take 2.5 mg by mouth daily. 01/23/2022 Active senna (SENOKOT) 8.6 mg tablet Take 1 tablet by mouth daily as needed for constipation. 01/23/2022 Active gabapentin (NEURONTIN) 300 MG capsule Take 300 mg by mouth 3 (three) times a day. 04/24/2022 Active cloNIDine HCL (CATAPRES) 0.1 MG tablet Take 0.1 mg by mouth daily as needed (Anxiety). Last filled at [facility] [place] 01/06/24 01/06/2024 Active cloZAPine (CLOZARIL) 50 MG tablet Take 50 mg by mouth Every Afternoon. Active risperiDONE (RISPERDAL) 2 MG tablet Take 2 mg by mouth Every Afternoon. Active Active Problems Problem Noted Date Diagnosed Date Paranoia 01/17/2024 Acute febrile illness 05/22/2022 Assessment & Plan (05/23/2022 5:47 PM EST): FUO. No signs or symptoms of infection. Given 1 dose of empiric IV ceftriaxone on admission. -Procalcitonin 1.92 -Lyme negative. -Ehrlichia and Anaplasma pending. -Influenza a/B is negative -SARS-CoV-2 PCR negative. -Renal imaging elucidates several renal cysts. Seen by ID serum heterophile antibodies and serum CMV PCR added and are pending CT abdomen- 2.0 cm lesion in the right upper pole without enhancement suggestive of proteinaceous or hyperdense cyst. No further imaging follow-up recommended. Duplicated renal systems otherwise unremarkable. 05/23-ID seen in follow-up. Fever may have resolved large differential. Please see his notes for details. Plan - Follow CMV PCR and Anaplasma PCR. - Continue to hold antibiotics. - Follow clinical course. History of pulmonary embolism 01/19/2022 Overview (05/22/2022): Right lower lobe segmental and subsegmental PE provoked by knee surgery 1 week prior. Assessment & Plan (05/23/2022 5:48 PM EST): Stable. No respiratory complaints or hypoxia. -Hemoglobin has drifted down from baseline of 11.7 but has been stable ranging from 9.5-9.9. -no evidence of GI blood loss. - Continue Eliquis cautiously. -Repeat CBC periodically Anemia 04/16/2017 Assessment & Plan (04/18/2017 6:12 PM EST): As previously noted, lower than baseline H/H. No active bleeding. Likely combination of iron def and acute illness. Will need follow up as outpatient. Bipolar disorder 04/14/2017 Assessment & Plan (05/22/2022 12:17 AM EST): Continue home medications. Assessment & Plan (04/18/2017 6:10 PM EST): Stable. Continue home Risperdal, Clozaril and Lamictal.clonidine, Hypothyroidism 04/14/2017 Assessment & Plan (04/14/2017 4:57 AM EST): Continue home dose of levothyroxine. Resolved Problems Problem Noted Date Diagnosed Date Resolved Date Pneumonia 04/14/2017 05/22/2022 Assessment & Plan (04/18/2017 6:14 PM EST): Patient being treated for community-acquired pneumonia. She completed 5 day treatment of ceftriaxone and azithromycin. Add nebulizer treatments 04/14, as well as cough suppressants,aerobika, and hypersaline nebs to help with pulmonary secretions. Clinically improved, no evidence of mucous plugging on examination. Leukocytosis resolved, but low grade fever persist (althought overall fever trend is coming down). Will transition to ceftin and d/c azithromycin. If afebrile overnight, d/c in am. Hypotension 04/14/2017 04/19/2017 Assessment & Plan (04/18/2017 6:10 PM EST): Resolved. Continue to be normotensive, cont to hold home lisinopril. Renal insufficiency 04/14/2017 04/18/20 17 Assessment & Plan (04/17/2017 4:49 PM EST): Creatinine initially mildly elevated, last level 0.8 in 2012, with IV fluid the evel has normalized, discontinue IV fluid 04/16 due to improved intake. She is taking good fluids today Family History Medical History Relation Comments Psychiatric disorder Brother Psychiatric disorder Sister Relation Status Comments Brother Sister Social History Tobacco Use Types Packs/Day Years Used Date Smoking Tobacco: Former Cigarettes Q uit: 1998 Smokeless Tobacco: Never Tobacco Cessation:Counseling Given: No Alcohol Use Standard Drinks/Week Comments No 0 [...] Orientation Straight 04/29/2017 9: 38 AM EST Last Filed Vital Signs Vital Sign Reading Time Taken Comments Blood Pressure 126/85 01/17/2024 3:20 PM EDT Pulse 91 01/17/2024 3:32 PM EDT Temperature 36.3 C (97.3 F) 01/17/2024 3:32 PM EDT Respiratory Rate 18 01/17/2024 3:32 PM EDT Oxygen Saturation 98% 01/17/2024 3:32 PM EDT Inhaled Oxygen Concentration 29% 04/15/2017 1 :36 PM EST Weight 79.4 kg (175 lb) 01/17/2024 10:20 AM EDT Height 167.6 cm (5' 6 ) 01/17/2024 10:20 AM EDT Body Mass Index 28.25 01/17/2024 10:20 AM EDT Plan of Treatment Upcoming Encounters Date Type Department Care Team (Late st Contact Info) Description 02/09/2025 3:45 PM EDT Appointment [facility], [facility] D[facility] - [facility] [address] [place] [address] Serafin Murray DO [address] [place] [address] Health Maintenance Due Date Last Done Comments HEMOGLOBIN A1C 1950 DEPRESSION SCREENING 1963 SMOKING Hx and SMOKELESS TOBACCO SCREENING 1964 HEPATITIS C SCREENING 1969 LIPID PANEL 1969 MAMMOGRAM 1991 COLOGUARD 1996 FIT TEST 1996 FOBT 1996 SIGMOIDOSCOPY 1996 VIRTUAL COLONOSCOPY 1996 ZOSTER VACCINES (2 of 3) 10/09/2011 08/14/2011 OSTEOPOROSIS SCREENING INITIAL (ONE-TIME) 2016 Adult Td,Tdap Booster 01/10/2021 01/10/2011 BLOOD PRESSURE 08/03/2022 02/02/2022 COVID-19 VACCINE ( season) 2023 07/12/2020, 06/14/2020 DIABETIC EYE EXAM 06/25/2024 ABSOLUTE NEUTROPHIL COUNT (ANC) 09/22/2024 08/25/2024, 08/11/2024, 07/28/2024, Additional history exists CREATININE LEVEL 06/25/2025 06/25/2024, , 05/24/2022, Additional history exists POTASSIUM LEVEL 06/25/2025 06/25/2024, 12/22, 05/24/2022, Additional history exists TSH LEVEL 07/01/2025 07/01/2024, 04/24, 04/14/2017 RSV VACCINE (1 - 1-dose 75+ series) 2026 COLONOSCOPY 03/05/2028 03/05/2018 COLORECTAL CANCER SCREENING 03/05/2028 PNEUMOCOCCAL VACCINES (50+ years) Completed 11/28/2017, 09/06/2016, 08/14/2011 HEPATITIS A VACCINES Aged Out No long er eligible based on patient's age to complete this topic HIB VACCINES Aged Out No longer eligi ble based on patient's age to complete this topic MENINGOCOCCAL VACCINES (ACWY) Aged Out No longer eligible based on patient's age to complete this topic MENINGOCOCCAL VACCINES (B) Aged Out N o longer eligible based on patient's age to complete this topic Medical Devices Not on file Procedures Procedure Name Priority Date/Time Associated Diagnosis Comments CBC AND DIFFERENTIAL Routine 08/25/2024 6:00 AM EDT Subchronic schizophrenia Encounter for therapeutic drug monitoring TSH Routine 07/01/2024 5:45 AM EDT Other specified diabetes mellitus with other specified complication, unspecified whether chcf insulin use Hypothyroidism, unspecified type Schizophrenia, unspecified type COMPREHENSIVE METABOLIC PANEL Routine 06/25/2024 5:10 AM EST Diverticulitis Other specified diabetes mellitus with other specified complication, unspecified whether chcf insulin use ENDOSCOPY, COLON 03/05/2018 9:09 AM EST from Last 3 Months or Most Recently Relevant to Health Maintenance Results * (ABNORMAL) CBC and differential (08/25/2024 6:00 AM EDT) WBC 5.82 4.00 - 11.00 K/uL [facility] RBC 3.61(L) 4.00 - 5.20 M/uL [facility] HGB 10.7(L) 12.0 - 16.0 g/dL [facility] HCT 32.9(L) 36.0 - 46.0 % [facility] PLT 208 150 - 450 K/uL [facility] MCV 91.1 80.0 - 100.0 fL [facility] MCH 29.6 27.0 - 31.0 pg [facility] MCHC 32.5 32.0 - 36.0 g/dL [facility] RDW 14.4 11.5 - 14.5 % [facility] MPV 10.2 8.4 - 12.0 fL [facility] NRBC 0.00 0.00 /100 WBCs [facility] ABSOLUTE NRBC 0.00 0.00 K/uL [facility] DIFF METHOD Auto [facility] NEUTS 56.5 48.0 - 76.0 % [facility] LYMPHS 28.0 18.0 - 41.0 % [facility] MONOS 10.1 4.0 - 11.0 % [facility] EOS 4.3 0.0 - 5.0 % [facility] BASOS 0.9 0.0 - 1.5 % [facility] Granulocytes, immature (%) 0.2 0.0 - 0.9 % [facility] ABSOLUTE NEUTS 3.29 1.92 - 7.60 K/uL [facility] ABSOLUTE LYMPHS 1.63 0.72 - 4.10 K/uL [facility] ABSOLUTE MONOS 0.59 0.16 - 1.10 K/uL [facility] ABSOLUTE EOS 0.25 0.00 - 0.50 K/uL [facility] ABSOLUTE BASOS 0.05 0.00 - 0.15 K/uL [facility] Granulocytes, immature 0.01 0.00 - 0.09 K/uL [facility] Blood 08/25/2024 6:00 AM EDT 08/25/2024 8:25 AM EDT us Vinay Serrano MD LAB BLOOD ORDERABLES Final Result [address] [address] * (ABNORMAL) TSH (07/01/2024 5:45 AM EDT) TSH 10.70(H) 0.27 - 4.20 uIU/mL [facility] Blood 07/01/2024 5:45 AM EDT 07/01/2024 8:10 AM EDT us Katelynn Marsh NP LAB BLOOD ORDERABLES Final Resul t [address] [address] * (ABNORMAL) Comprehensive metabolic panel (06/25/2024 5:10 AM EST) SODIUM 144 133 - 146 mmol/L [facility] POTASSIUM 4.8 3.3 - 5.1 mmol/L [facility] CHLORIDE 108 96 - 108 mmol/L [facility] CO2 25 21 - 35 mmol/L [facility] BUN 25(H) 6 - 19 mg/dL [facility] CREATININE 1.20 0.5 - 1.5 mg/dL [facility] GLUCOSE 100(H) 70 - 99 mg/dL [facility] ALBUMIN 3.5(L) 3.9 - 4.8 g/dL [facility] TOTAL PROTEIN 5.3(L) 6.5 - 8.0 g/dL [facility] CALCIUM 8.8 8.4 - 10.3 mg/dL [facility] ALKALINE PHOSPHATASE 143(H) 39 - 117 U/L [facility] TOTAL BILIRUBIN 0.3 0.0 - 1.2 mg/dL [facility] AST 21 0 - 37 U/L [facility] ALT 23 0 - 40 U/L [facility] GLOBULIN 1.8 1 - 4.8 g/dL [facility] EGFR 48(L) >59 mL/min/1.7 3m2 [facility] Comment:Estimated glomerular filtration rate calculated using the CKD-EPI refit equation. ANION GAP 16 10 - 20 mmol/L [facility] Blood 06/25/2024 5:10 AM EST 06/25/2024 8:41 AM EST us Katelynn Marsh NP LAB BLOOD ORDERABLES Final Resul t [facility] [address] [place], [place] [id number] * ENDOSCOPY, COLON (03/05/2018 9:09 AM EST) Narrative Transcriptions Shan Cote MD - 03/05/2018 9:09 AM EST Patient Name: Deedee Holbrook Attending MD:: SHAN COTE MD Procedure Date: 03/05/2018 9:09 AM Date of : 1950 Age: 67 Admit Type: Outpatient Gender: Female Room: [place] [address] Referring MD: SUZY LUNDY MD Exam Type: Colonoscopy Indications: Screening for colorectal malignant neoplasm Medications: Sedation Required Anesthesia Staff Assistance Procedure: Informed consent was obtained from the patient after discussion of the indications, limitations,alternatives, benefits, and risks of the procedure. Risksspecifically discussed include but are not limited to medication reactions, missed lesions, bleeding, perforation, orthe need for emergent surgery. Throughout the procedure, the patient's blood pressure, pulse, end-tidal CO2, and oxygen saturations were monitored continuously. The Olympus pediatric variable colonoscope [id number]-[id number] was introduced through the anus and advanced to thececum, identified by appendiceal orifice and ileocecal valve.The colonoscopy was performed without difficulty. Thepatient tolerated the procedure well. The quality of the bowel preparation was good. Complications: No immediate complications. Estimated blood loss:Minimal. Findings: The perianal and digital rectal examinations werenormal. A 5 mm polyp was found in the transverse colon. Thepolyp was sessile. The polyp was removed with a cold biopsy forceps. Resection and retrieval were complete. A few small-mouthed diverticula were found in thesigmoid colon. Internal hemorrhoids were found during retroflexion.The hemorrhoids were mild. Impression: - One 5 mm polyp in the transverse colon, removed witha cold biopsy forceps. Resected and retrieved. - Diverticulosis in the sigmoid colon. - Internal hemorrhoids. Recommendation: - Discharge patient to home (ambulatory). - Await pathology results. - Repeat colonoscopy for surveillance based onpathology results. SHAN COTE MD 03/05/2018 9:48:51 AM This report has been signed electronically. Number of Addenda: 0 Note Initiated On: 03/05/2018 9:09 AM Procedure Code(s): --- Professional --- 53229, Colonoscopy, flexible; with biopsy, single or multiple --- Technical --- 09292, Colonoscopy, flexible; with biopsy, single or multiple Diagnosis Code(s): --- Professional --- Z12.11, Encounter for screening for malignant neoplasm of colon D12.3, Benign neoplasm of transverse colon (hepatic flexure orsplenic flexure) K64.8, Other hemorrhoids K57.30, Diverticulosis of large intestine without perforation orabscess without bleeding --- Technical --- Z12.11, Encounter for screening for malignant neoplasm of colon D12.3, Benign neoplasm of transverse colon (hepatic flexure orsplenic flexure) K64.8, Other hemorrhoids K57.30, Diverticulosis of large intestine without perforation orabscess without bleeding CPT copyright 2016 [employer]. All rights reserved. The codes documented in this report are preliminary and upon certified adapted physical educator reviewmay be revised to meet current compliance requirements. [address] [place], [place] [id number] Suzy Lundy MD GI PROCEDURE ORDERABLES Final R esult from Last 3 Months or Most Recently Relevant to Health Maintenance Insurance [place] BLUE [place]ACEMENT [place] MED[place] [place] BLUE REPLAC[place] BL[place] BL[place] MED[place] O BLUE REPLACEMENT [place] MED[employer]ARE O BLUE REPLACEMENT [place] MED[employer] HMO BLUE REPLACEMENT Advance Directives For more information, please contact: [phone] (9AM - 5PM [facility], Saturday-Saturday) Documents on File Type Date Recorded Patient Dispatch Coordinator Expl [employer] Proxy 05/25/2022 2:05 PM * Full Code (Latest Code Status on File) Date Activated Date Inactivated Comments 05/22/2022 12:26 AM Question Answer Comments Code Status Confirmed With: Patient * Full Code (Confirmed) Date Activated Date Inactivated Comments 04/14/2017 4:14 AM 04/19/2017 3:46 PM Question Answer Comments Code Discussion Comments: Patient Care Teams Electrotype Molder Relationship Specialty Start Date End Date Callum Field MD [address] [place] [id number] [email or web address] PCP - General Family Medicine 12/24/23 Additional Source Comments The information contained in this document represents components of the legal health record. It is not the complete legal health record.[facility]
--- OUTSIDE RECORDS SUMMARY | 2024-12-16 10:59 | XMS_ITS | Encounter Summary ---
Author Organization [facility] Address [address] [place] [address] Phone Care Team Providers Care Construction Engineer Name Role Phone Callum Field MD Primary Care Provider [phone] Callum Field MD Primary Care Provider [phone] Callum Field MD Primary Care Provider [phone] Encounter Details Date Type Department Care Team (Late st Contact Info) Description 05/22/2022 Procedure Pass [facility], Ct Scan - [address] [address] Social History Tobacco Use Types Packs/Day Years [...] Info) Description 02/09/2025 3:45 PM EDT Appointment [facility] [place], Bone Density - [address] [address] Serafin Murray DO [address] [place] [address] documented as of this encounter Visit Diagnoses Not on filedocumented in this encounter Additional Health Concerns Infection Onset Date Last Indicated Resolved Time CoV-Risk Comment:Neg covid 05/20/2022 05/21/2022 05/22/2022 6:[address] CoV-Risk 01/17/2024 01/17/2024 01/28/2024 1:22 AM EDT documented as of this encounter Care Teams Construction Engineer Relationship Specialty Start Date End Date Callum Field MD [email or web address] PCP - General Family Medicine 09/29/19 12/27/22 Callum Field MD PCP - General Family Medicine 12/28/22 12/23/23 Callum Field MD [address] [place] [phone] [email or web address] PCP - General Family Medicine 12/24/23 documented as of this encounter Additional Source Comments The information contained in this document represents components of the legal health record. It is not the complete legal health record.[facility]
--- OUTSIDE RECORDS SUMMARY | 2024-12-16 10:59 | XMS_ITS | Encounter Summary ---
Author Organization [facility] Address [address] [place] [address] Phone Care Team Providers Care College President Name Role Phone Al Alcantara MD Primary Care Provider Al Alcantara MD Primary Care Provider Callum Field MD Primary Care Provider [phone] Callum Field MD Primary Care Provider [phone] Callum Field MD Primary Care Provider [phone] Encounter Details Date Type Department Care Team (Latest Contact Info) Description 02/20/2017 Transcribe Orders [facility]lebotomy [address] [place] [address] Vinay Serrano MD [address] [place], [place] [id number] Subchronic schizophrenia (Primary Dx) Social History Tobacco [...] Info) Description 02/09/2025 3:45 PM EDT Appointment [facility] [address] [place] [address] Serafin Murray DO [address] [place] [address] documented as of this encounter Procedures Procedure Name Priority Date/Time Associated Diagnosis Comments CBC AND DIFFERENTIAL Routine 02/20/2017 11:31 AM EDT Subchronic schizophrenia documented in this encounter Results * (ABNORMAL) CBC and differential (02/20/2017 11:31 AM EDT) WBC 5.82 3.40 - 11.20 K/uL [facility] RBC 4.00 3.80 - 4.80 M/uL [facility] HGB 12.0 12.0 - 15.0 g/dL [facility] HCT 36.0 36.0 - 46.0 % [facility] PLT 218 130 - 400 K/uL [facility] MCV 90.0 79.0 - 98.0 fL [facility] MCH 30.0 27.0 - 34.8 pg [facility] MCHC 33.3 31.5 - 36.0 g/dL [facility] RDW 13.2 10.8 - 14.6 % [facility] MPV 10.7 9.4 - 12.4 fl [facility] NRBC 0.00 /100 WBCs [facility] ABSOLUTE NRBC 0.00 K/uL [facility] DIFF METHOD Auto [facility] NEUTS 52.6 45.30 - 77.70 % [facility] LYMPHS 29.9 12.30 - 39.70 % [facility] MONOS 8.1 4.10 - 12.80 % [facility] EOS 8.4(H) 0 - 7.2 % [facility] BASOS 0.7 0 - 2.80 % [facility] Granulocytes, immature (%) 0.3 0.0 - 0.9 % [facility] ABSOLUTE NEUTS 3.06 1.40 - 7.70 K/uL [facility] ABSOLUTE LYMPHS 1.74 0.60 - 3.20 K/uL [facility] ABSOLUTE MONOS 0.47 0.11 - 0.59 K/uL [facility] ABSOLUTE EOS 0.49 0.01 - 0.50 K/uL [facility] ABSOLUTE BASOS 0.04 0.00 - 0.08 K/uL [facility] Granulocytes, immature 0.02 0.00 - 0.05 K/uL [facility] Blood 02/20/2017 11:3 1 AM EDT 02/20/2017 11:34 AM EDT Vinay Serrano MD LAB BLOOD ORDERABLES Final Result Performing Organization Address City/State/[facility] Co de Phone Number [facility] [address] [place] [address] documented in this encounter Visit Diagnoses Diagnosis Subchronic schizophrenia- Primary Unspecified schizophrenia, subchronic condition documented in this encounter Additional Health Concerns Infection Onset Date Last Indicated Resolved Time CoV-Risk Comment:Neg covid 05/20/2022 05/21/2022 05/22/2022 6:[address] CoV-Risk 01/17/2024 01/17/2024 01/28/2024 1:22 AM EDT documented as of this encounter Care Teams College President Relationship Specialty Start Date End Date Al Alcantara MD [address] [place] [id number] [email or web address] PCP - General 02/04/17 06/09/19 Al Alcantara MD [address] [place] [phone] [email or web address] PCP - General Family Medicine 06/10/19 09/28/19 Callum Field MD [address] [place] [phone] [email or web address] PCP - General Family Medicine 09/29/19 12/27/22 Callum Field MD [address] [place] [phone] [email or web address] PCP - General Family Medicine 12/28/22 12/23/23 Callum Field MD [address] [place] [address] [email or web address] PCP - General Family Medicine 12/24/23 documented as of this encounter Additional Source Comments The information contained in this document represents components of the legal health record. It is not the complete legal health record.[facility]
--- OUTSIDE RECORDS SUMMARY | 2024-12-16 11:00 | XMS_ITS | Encounter Summary ---
Author Organization [facility] Address [address] [place] [address] Phone Care Team Providers Care Financial Coach Name Role Phone Al Alcantara MD Primary Care Provider Al Alcantara MD Primary Care Provider Callum Field MD Primary Care Provider [phone] Callum Field MD Primary Care Provider [phone] Callum iFeld MD Primary Care Provider [phone] Encounter Details Date Type Department Care Team (Late st Contact Info) Description 03/05/2018 Procedure Pass [facility] Endoscopy Admitting Dept Virtual Department [address] [place] [phone] Social History Tobacco Use Types Packs/Day Years [...] Encounters Date Type Department Care Team (Late Contact Info) Description 02/09/2025 3:45 PM EDT Appointment [facility] - [address] [address] Serafin Murray DO [address] [place] [address] documented as of this encounter Visit Diagnoses Not on filedocumented in this encounter Additional Health Concerns Infection Onset Date Last Indicated Resolved Time CoV-Risk Comment:Neg covid 05/20/2022 05/21/2022 05/22/2022 6:[address] CoV-Risk 01/17/2024 01/17/2024 01/28/2024 1:22 AM EDT documented as of this encounter Care Teams Financial Coach Relationship Specialty Start Date End Date Al Alcantara MD [address] [place] [address] [email or web address] [email or web address] - General 02/04/17 06/09/19 Al Alcantara MD [address] [place] [address] [email or web address] PCP - General Family Medicine 06/10/19 09/28/19 Callum Field MD [address] [place] [address] PCP - General Family Medicine 09/29/19 12/27/22 Callum Field MD [address] [place] [address] PCP - General Family Medicine 12/28/22 12/23/23 Callum Field MD [address] [place] [address] PCP - General Family Medicine 12/24/23 documented as of this encounter Additional Source Comments The information contained in this document represents components of the legal health record. It is not the complete legal health record.[facility]
--- OUTSIDE RECORDS SUMMARY | 2024-12-16 11:00 | XMS_ITS | Encounter Summary ---
Author Organization [facility] Address [address] [place] [address] Phone Care Team Providers Care Mobile Ui Designer Name Role Phone Al Alcantara MD Primary Care Provider Al Alcantara MD Primary Care Provider [phone] Callum Field MD Primary Care Provider [phone] Callum Field MD Primary Care Provider [phone] Callum Field MD Primary Care Provider [phone] Encounter Details Date Type Department Care Team (Latest Contact Info) Description 06/25/2017 Transcribe Orders [facility] Laboratory [address] [place] [address] Vinay Serrano MD [address] [place], [place] [phone] Subchronic schizophrenia (Primary Dx) Social History Tobacco [...] Info) Description 02/09/2025 3:45 PM EDT Appointment [facility], [facility] [address] [place] [address] MurraySerafin DO 70 [place] [address] documented as of this encounter Results * (ABNORMAL) CBC and differential (06/25/2017 12:05 PM EST) WBC 7.99 3.40 - 11.20 K/uL [facility] RBC 3.48(L) 3.80 - 4.80 M/uL [facility] HGB 10.8(L) 12.0 - 15.0 g/dL [facility] HCT 31.6(L) 36.0 - 46.0 % [facility] PLT 247 130 - 400 K/uL [facility] MCV 90.8 79.0 - 98.0 fL [facility] MCH 31.0 27.0 - 34.8 pg [facility] MCHC 34.2 31.5 - 36.0 g/dL [facility] RDW 14.1 10.8 - 14.6 % [facility] MPV 10.3 9.4 - 12.4 fl [facility] NRBC 0.00 /100 WBCs [facility] ABSOLUTE NRBC 0.00 K/uL [facility] DIFF METHOD Auto [facility] NEUTS 70.6 45.30 - 77.70 % [facility] LYMPHS 18.9 12.30 - 39.70 % [facility] MONOS 6.9 4.10 - 12.80 % [facility] EOS 2.5 0 - 7.2 % [facility] BASOS 0.8 0 - 2.80 % [facility] Granulocytes, immature (%) 0.3 0.0 - 0.9 % [facility] ABSOLUTE NEUTS 5.65 1.40 - 7.70 K/uL [facility] ABSOLUTE LYMPHS 1.51 0.60 - 3.20 K/uL [facility] ABSOLUTE MONOS 0.55 0.11 - 0.59 K/uL [facility] ABSOLUTE EOS 0.20 0.01 - 0.50 K/uL [facility] ABSOLUTE BASOS 0.06 0.00 - 0.08 K/uL [facility] Granulocytes, immature 0.02 0.00 - 0.05 K/uL [facility] Blood 06/25/2017 12:0 5 PM EST 06/25/2017 12:08 PM EST Vinay Serrano MD LAB BLOOD ORDERABLES Final Result [facility] [address] [place] [address] documented in this encounter Visit Diagnoses Diagnosis Subchronic schizophrenia- Primary Unspecified schizophrenia, subchronic condition documented in this encounter Additional Health Concerns Infection Onset Date Last Indicated Resolved Time CoV-Risk Comment:Neg covid 05/20/2022 05/21/2022 05/22/2022 6:[address] CoV-Risk 01/17/2024 01/17/2024 01/28/2024 1:22 AM EDT documented as of this encounter Care Teams Mobile Ui Designer Relationship Specialty Start Date End Date Al Alcantara MD [address] [place] [phone] [email or web address] PCP - General 02/04/17 06/09/19 Al Alcantara MD [address] [place] [phone] [email or web address] PCP - General Family Medicine 06/10/19 09/28/19 Callum Field MD [address] [place] [id number] [email or web address] PCP - General Family Medicine 09/29/19 12/27/22 Callum Field MD [address] [place] [phone] PCP - General Family Medicine 12/28/22 12/23/23 Callum Field MD [address] [place] [phone] [email or web address] PCP - General Family Medicine 12/24/23 documented as of this encounter Additional Source Comments The information contained in this document represents components of the legal health record. It is not the complete legal health record.[facility]
--- OUTSIDE RECORDS SUMMARY | 2024-12-16 11:00 | XMS_ITS | Encounter Summary ---
Author Organization [facility] Address [address] [place] [address] Phone Care Team Providers Care Mammalogy Teacher Name Role Phone Callum Field MD Primary Care Provider [phone] Callum Field MD Primary Care Provider [phone] Callum Field MD Primary Care Provider [phone] Encounter Details Date Type Department Care Team (Late st Contact Info) Description 01/19/2022 Procedure Pass [facility], Ct Scan - [facility] [address] [place], [place] [phone] Social History Tobacco Use Types Packs/Day Years [...] Date of Assessment Author No Risk Indicated 01/19/2022 12:59 PM EDT Christy Duron RN * [place] Suicide Severity Rating Scale (Screener/Recent Self-Report) Question Answer Date of Assessment Author 1. Wish to be (Past 1 Month) No 01/19/2022 12:59 PM EDT Christy Duron RN 2. Non-Specific Active Suicidal Thoughts (Past 1 Month) No 01/19/2022 12:59 PM EDT Christy Duron RN 6. Suicidal Behavior (Lifetime) No 01/19/2022 12:59 PM EDT Christy Duron RN documented as of this encounter Plan of Treatment Upcoming Encounters Date Type Department Care Team (Late st Contact Info) Description 02/09/2025 3:45 PM EDT Appointment [facility], Bone Density - [facility] [address] [place] [address] Serafin Murray DO [address] [place] [address] documented as of this encounter Visit Diagnoses Not on filedocumented in this encounter Additional Health Concerns Infection Onset Date Last Indicated Resolved Time CoV-Risk Comment:Neg covid 05/20/2022 05/21/2022 05/22/2022 6:[address] CoV-Risk 01/17/2024 01/17/2024 01/28/2024 1:22 AM EDT documented as of this encounter Care Teams Mammalogy Teacher Relationship Specialty Start Date End Date Callum Field MD [email or web address] PCP - General Family Medicine 09/29/19 12/27/22 Callum Field MD PCP - General Family Medicine 12/28/22 12/23/23 Callum Field MD 70 [place] [address] [email or web address] PCP - General Family Medicine 12/24/23 documented as of this encounter Additional Source Comments The information contained in this document represents components of the legal health record. It is not the complete legal health record.[facility]
--- OUTSIDE RECORDS SUMMARY | 2024-12-16 11:00 | XMS_ITS | Encounter Summary ---
Author Organization [facility] Address [address] [place] [address] Phone Care Team Providers Care Pre Sales Technical Engineer Name Role Phone Al Alcantara MD Primary Care Provider [phone] Al Alcantara MD Primary Care Provider Callum Field MD Primary Care Provider [phone] Callum Field MD Primary Care Provider [phone] Callum Field MD Primary Care Provider [phone] Encounter Details Date Type Department Care Team (Late st Contact Info) Description 01/08/2018 Transcribe Orders [facility] Laboratory [address] [place] [address] Vinay Serrano MD 50 [place], [place] [phone] Social History Tobacco Use Types Packs/Day Years [...] Info) Description 02/09/2025 3:45 PM EDT Appointment [facility], [facility] [address] [facility] [place] [address] Serafin Murray DO 70 [place] [address] documented as of this encounter Visit Diagnoses Not on filedocumented in this encounter Additional Health Concerns Infection Onset Date Last Indicated Resolved Time CoV-Risk Comment:Neg covid 05/20/2022 05/21/2022 05/22/2022 6:[address] CoV-Risk 01/17/2024 01/17/2024 01/28/2024 1:22 AM EDT documented as of this encounter Care Teams Pre Sales Technical Engineer Relationship Specialty Start Date End Date Al Alcantara MD [address] [place] [phone] [email or web address] PCP - General 02/04/17 06/09/19 Al Alcantara MD [address] [place] [phone] [email or web address] PCP - General Family Medicine 06/10/19 09/28/19 Callum Field MD [address] [place] [phone] PCP - General Family Medicine 09/29/19 12/27/22 Callum Field MD [address] [place] [phone] PCP - General Family Medicine 12/28/22 12/23/23 Callum Field MD [address] [place] [phone] PCP - General Family Medicine 12/24/23 documented as of this encounter Additional Source Comments The information contained in this document represents components of the legal health record. It is not the complete legal health record.[facility]
[2024-12-23] VITALS (7 sets, daily range): BP systolic 125–156; BP diastolic 89–93; PULSE 74–88; RESP 16–21; TEMP 36.1–36.4; O2SAT 96–97; BMI 30.7
--- NOTE | 2024-12-23 07:09 | MHC.SHP ---
Pre-Procedural Eval Section A - 24 Hr Update-Section A only Date of Service: 12/23/24 Changes since office visit: No Cold of Flu in the past 2 weeks, No New Medical Problems, No Changes in Medication and No Patient answered all questions The patient has been examined within 24 hours of the surgical procedure. The History & Physical has been completed within 30 days and I have reviewed it.: Yes Section B - Complete if H&P > 30 days Chief Complaint: depression Details of Present Illness: mood good until day before next ect Allergies: Allergies Allergy/AdvReac Type Severity Reaction Status Date / Time trifluoperazine (From Allergy Unknown Verified 09/25/24 09:52 Stelazine) Review of Systems Sugical H&P ROS: Negative: Constitution, Cardiovascular, Respiratory and Musculoskeletal Exam Surgical H&P Exam: Normal: Heart (RRR) and Normal: Lungs (CTA b/l) Plan Diagnosis/Plan: Unchanged I have reviewed the history and physical and performed a pertinent physical examination on my patient. No changes have occurred unless specified. Time Spent With Patient Time: Total time managing care of this patient today ____ minutes.
--- NOTE | 2024-12-23 07:16 | HO.ANESPROP2 ---
HPI - Anesthesia Eval Consult details Narrative: for ECT PMFSH Active Problems Active Problems: All Active Problems Fracture of right inferior pubic ramus (Acute) Fracture of superior ramus of right pubis (Acute) Arachnoid cyst (Acute) Diverticulosis (Chronic) Schizophrenia (Acute) Past Medical History Medical History Diverticulosis Schizophrenia CKD (chronic kidney disease) Hyperlipidemia Type 2 diabetes mellitus Hypothyroidism HTN (hypertension) GERD (gastroesophageal reflux disease) Mood disorder Family History Family history of problems with anesthesia: No Surgical History History of Problems with Anesthesia: No Social History Social History Household Members: None Household Members Other:: Lives at [facility] Housing: Assisted Living Facility Do you presently have visiting nurse or other home services: Yes Alcohol intake: current Alcohol intake frequency: does not drink Patient Tobacco Use Status: Former Tobacco user Tobacco use type: Cigarette Cigarette Packs Per Day: 3 Cigarettes Per Day: 60.0 Years Smoked: 16 Second Hand Smoke Exposure: No Advance Directives: No Advance Directives Information Provided: Yes service: No Current occupational status: retired Sexual orientation: Straight/Heterosexual Meds Allergies Allergy/AdvReac Type Severity Reaction Status Date / Time trifluoperazine (From Allergy Unknown Verified 09/25/24 09:52 Stelazine) Home Medications ?Medication ?Instructions ?Recorded ?Confirmed ?Last Taken ?Type acetaminophen 325 mg tablet 650 mg PO Q6H PRN pain/fever 06/22/24 11/25/24 Unknown History hydroxyzine HCl 25 mg tablet 25 mg PO Q6H PRN Anxiety 06/22/24 11/25/24 Unknown History polyethylene glycol 3350 17 gram 17 g PO BEDTIME 06/22/24 11/25/24 06/21/24 20:00 History oral powder packet polyethylene glycol 3350 17 gram 17 g PO DAILY PRN Constipation 06/22/24 11/25/24 Unknown History oral powder packet sennosides 8.6 mg tablet (Senna 8.6 mg PO BEDTIME 06/22/24 11/25/24 06/21/24 20:00 History Lax) sennosides 8.6 mg tablet (senna) 8.6 mg PO DAILY PRN Constipation 06/22/24 11/25/24 Unknown History trazodone 50 mg tablet 50 mg PO BEDTIME 06/22/24 11/25/24 06/21/24 20:00 History trazodone 50 mg tablet 50 mg PO BEDTIME PRN Insomnia 06/22/24 11/25/24 Unknown History bisacodyl 10 mg rectal suppository 10 mg CO DAILY PRN Constipation 07/03/24 11/25/24 Unknown History (Dulcolax (bisacodyl)) magnesium hydroxide 400 mg/5 mL 5 ml PO DAILY PRN Constipation 07/03/24 11/25/24 Unknown History oral suspension (Milk of Magnesia) sennosides 8.6 mg tablet (Senna 8.6 mg PO BEDTIME 07/03/24 11/25/24 Unknown History Lax) sodium phosphates 19 gram-7 118 ml CO DAILY PRN Dehydration 07/03/24 11/25/24 Unknown History gram/118 mL enema (Fleet Enema) cephalexin 500 mg capsule 500 mg PO QID 08/13/24 11/25/24 Unknown History Exam Height,Weight and Vital Signs: Height 5 ft 6 in Weight 86.183 kg Last Vital Signs Temp 97 F 12/23/24 06:56 Pulse 74 12/23/24 06:56 Resp 16 12/23/24 06:56 BP 125/89 12/23/24 06:56 Pulse Ox 97 12/23/24 06:56 O2 Del Method Room Air 12/23/24 06:56 Airway Mallampati Class: II TM Dist: <=3cm Neck ROM: Full Loose/Missing/Broken Teeth: Yes, Upper and Lower Heart: ok Lungs: ok Assessment and Plan Assessment Anesthesia Assessment: Anesthesia Plan Discussed and Chart Reviewed Final Anesthetic Review Family History of Problems with Anesthesia: No History of Problems with Anesthesia: No ASA Class: III Final Preanesthetic Review: No Changes in Pt Med Stat, Meds/Allgs Chart Reviewed, Consent Obtained/Reviewed and Anes Risks/Benef Reviewed Patient Risk: Intermediate Procedure Risk: Intermediate Anesthetic Plan Anesthetic Plan: GA and Agree w/ Assess. and Plan Disposition: Standard PACU
--- NOTE | 2024-12-23 07:46 | HO.ECTPROC ---
ECT Procedure Note Diagnosis/Treatment Date of Service: 12/23/24 Diagnosis: Schizoaffective Disorder Previous ECT Date: 12/16/24 Current Treatment Number: Other (19) Treatment: Maintenance Interval Clinical Notes: pt reports ECT is helping considerably. She reports good mood up until the day before her next ECT treatment; wants ECT to continue Weekly Time: Total time managing care of this patient today ____ minutes. ECT Settings Device: THYMATRON DGx Electrode Placement: Bifrontal Program/Pulse Width: 0.50 Energy Percent: 100 Medications Administration General Anesthetic: Etomidate (12) Muscle Relaxant: Succinylcholine (80) Ancillary Medications Anti-emetics: Zofran - Pre ECT Miscillaneous Medications: Propofol (30) Airway Management Airway Management: Bag Mask Ventilation Treatment Recommendations No Changes Recommended: No change Electrode Placement: Bifrontal Program/Pulse Width: 0.50 Energy Percent: 100 Notes: pt reports good mood with ECT that last 6 days; wants to continue w/ ECT Long seizure today and required Propofol 30mg to break Recommend to continue with same ECT parameters next ECT, however if again long seizure, consider lowering Energy % Pt Tolerated Procedure w/o Issue: Yes
== END 2024-12-23 09:00 ==
LOC: HO.SSS 05:46
PROVIDERS: PCP Internal Medicine; Visit Provider Psychiatry & Neurology Psychiatry
PROC: (CPT 90870; principal; 2024-12-23 07:30)
DX: F25.8 Other schizoaffective disorders (principal); F22 Delusional disorders; N18.30 Chronic kidney disease, stage 3 unspecified; E78.5 Hyperlipidemia, unspecified; D64.9 Anemia, unspecified; E03.9 Hypothyroidism, unspecified; Z79.899 Other long term (current) drug therapy; Z88.8 Allergy status to other drugs, medicaments and biological substances; Z87.891 Personal history of nicotine dependence
CPT/HCPCS: 90870; J0330; J2405

== ENCOUNTER → 2024-12-23 05:46 | Outpatient (BNV) | payer MEDICARE, MEDICAID, SELFPAY | PROVIDERS: PCP Internal Medicine; Visit Provider Psychiatry & Neurology Psychiatry | DX: F33.2 Major depressive disorder, recurrent severe without psychotic features (principal) | CPT/HCPCS: 90870 ==

== ENCOUNTER 2024-12-30 05:49 | Day surgery (SDC) | payer MEDICARE, MEDICAID, SELFPAY ==
--- OUTSIDE RECORDS SUMMARY | 2024-12-23 08:58 | XMS_ITS | Encounter Summary ---
Author Organization [facility] Address [address] [place] [address] Phone Care Team Providers Care Flat Folding Machine Operator Name Role Phone Callum Field MD Primary Care Provider [phone] Encounter Details Date Type Department Care Team (Latest Contact Info) Description 09/07/2024 Transcribe Orders Virtual Department [address] [place] [address] Serafin Murray DO [address] [place] [address] Asymptomatic menopausal state (Primary Dx) Social History [...] Info) Description 02/09/2025 3:45 PM EDT Appointment [facility], Bone Density - [address] [address] Serafin Murray DO [address] [place] [address] Scheduled Orders Name Type Priority Associated Diagnoses Orde r Schedule DXA Screening Imaging Routine Asymptomatic menopausal state Expected: 10/07/2024, Expires: 09/07/2025 documented as of this encounter Visit Diagnoses Diagnosis Asymptomatic menopausal state- Primary documented in this encounter Care Teams Flat Folding Machine Operator Relationship Specialty Start Date End Date Callum Field MD [address] [place] [address] [email or web address] PCP - General Family Medicine 12/24/23 documented as of this encounter Additional Source Comments The information contained in this document represents components of the legal health record. It is not the complete legal health record.[facility]
--- OUTSIDE RECORDS SUMMARY | 2024-12-23 08:58 | XMS_ITS | Encounter Summary ---
Author Organization [facility] Address [address] [place] [phone] Phone Care Team Providers Care Purchasing And Fiscal Clerk Name Role Phone Al Alcantara MD Primary Care Provider Al Alcantara MD Primary Care Provider Callum Field MD Primary Care Provider Callum Field MD Primary Care Provider [phone] Callum Field MD Primary Care Provider [phone] Encounter Details Date Type Department Care Team (Latest Contact Info) Description 11/12/2017 Transcribe Orders [facility] Laboratory [address] [place] [address] Vinay Serrano MD [address] [place], [place] [phone] Subchronic schizophrenia (Primary Dx) Social History Tobacco [...] Info) Description 02/09/2025 3:45 PM EDT Appointment [facility], [facility] [address] [place] [address] Serafin Murray DO [address] [place] [address] documented as of this encounter Visit Diagnoses Diagnosis Subchronic schizophrenia- Primary Unspecified schizophrenia, subchronic condition documented in this encounter Additional Health Concerns Infection Onset Date Last Indicated Resolved Time CoV-Risk Comment:Neg covid 05/20/2022 05/21/2022 05/22/2022 6:[address] CoV-Risk 01/17/2024 01/17/2024 01/28/2024 1:22 AM EDT documented as of this encounter Care Teams Purchasing And Fiscal Clerk Relationship Specialty Start Date End Date Al Alcantara MD [address] [place] [address] [email or web address] PCP - General 02/04/17 06/09/19 Al Alcantara MD [address] [place] [phone] [email or web address] PCP - General Family Medicine 06/10/19 09/28/19 Callum Field MD [address] [place] [phone] PCP - General Family Medicine 09/29/19 12/27/22 Callum Field MD [address] [place] [address] [email or web address] PCP - General Family Medicine 12/28/22 12/23/23 Callum Field MD [address] [place] [id number] PCP - General Family Medicine 12/24/23 documented as of this encounter Additional Source Comments The information contained in this document represents components of the legal health record. It is not the complete legal health record.[facility]
--- OUTSIDE RECORDS SUMMARY | 2024-12-23 08:58 | XMS_ITS | Encounter Summary ---
Author Organization [facility] Address [address] [place] [address] Phone Care Team Providers Care Automatic Print Developer Name Role Phone Callum Field MD Primary Care Provider [phone] Callum Field MD Primary Care Provider [phone] Callum Field MD Primary Care Provider [phone] Encounter Details Date Type Department Care Team (Late st Contact Info) Description 05/20/2022 Procedure Pass [facility], Ct Scan - [facility] [address] [place], [place] [phone] Social History Tobacco Use Types Packs/Day Years [...] 05/21/2022 5:07 PM Rena Rodriguez RN * [place] Suicide Severity Rating Scale (Screener/Recent Self-Report) Question [...] Info) Description 02/09/2025 3:45 PM EDT Appointment [facility], Bone Density - [facility] [address] [place] [address] Serafin Murray DO [address] [place] [address] documented as of this encounter Visit Diagnoses Not on filedocumented in this encounter Additional Health Concerns Infection Onset Date Last Indicated Resolved Time CoV-Risk Comment:Neg covid 05/20/2022 05/21/2022 05/22/2022 6:[address] CoV-Risk 01/17/2024 01/17/2024 01/28/2024 1:22 AM EDT documented as of this encounter Care Teams Automatic Print Developer Relationship Specialty Start Date End Date Callum Field MD PCP - General Family Medicine 09/29/19 12/27/22 Callum Field MD PCP - General Family Medicine 12/28/22 12/23/23 Callum Field MD [address] [place] [address] [email or web address] PCP - General Family Medicine 12/24/23 documented as of this encounter Additional Source Comments The information contained in this document represents components of the legal health record. It is not the complete legal health record.[facility]
--- OUTSIDE RECORDS SUMMARY | 2024-12-23 08:58 | XMS_ITS | Encounter Summary ---
Author Organization [facility] Address [address] [place] [phone] Phone Care Team Providers Care Patient Assessment Coordinator Name Role Phone Al Alcantara MD Primary Care Provider Al Alcantara MD Primary Care Provider Callum Field MD Primary Care Provider Callum Field MD Primary Care Provider [phone] Callum Field MD Primary Care Provider [phone] Encounter Details Date Type Department Care Team (Latest Contact Info) Description 07/23/2017 Transcribe Orders [facility] Laboratory [address] [place] [address] Vinay Serrano MD [address] [place], [place] [id number] Subchronic schizophrenia (Primary Dx) Social History Tobacco [...] Info) Description 02/09/2025 3:45 PM EDT Appointment [facility], [facility] 30 [place] [address] Murray, Serafin, [address] [place] [address] documented as of this encounter Results * (ABNORMAL) CBC and differential (07/23/2017 1:16 PM EDT) WBC 7.36 3.40 - 11.20 K/uL [facility] RBC 3.69(L) 3.80 - 4.80 M/uL [facility] HGB 11.3(L) 12.0 - 15.0 g/dL [facility] HCT 33.3(L) 36.0 - 46.0 % [facility] PLT 261 130 - 400 K/uL [facility] MCV 90.2 79.0 - 98.0 fL [facility] MCH 30.6 27.0 - 34.8 pg [facility] MCHC 33.9 31.5 - 36.0 g/dL [facility] RDW 13.4 10.8 - 14.6 % [facility] MPV 10.6 9.4 - 12.4 fl [facility] NRBC 0.00 /100 WBCs [facility] ABSOLUTE NRBC 0.00 K/uL [facility] DIFF METHOD Auto [facility] NEUTS 71.9 45.30 - 77.70 % [facility] LYMPHS 18.2 12.30 - 39.70 % [facility] MONOS 7.1 4.10 - 12.80 % [facility] EOS 1.8 0 - 7.2 % [facility] BASOS 0.7 0 - 2.80 % [facility] Granulocytes, immature (%) 0.3 0.0 - 0.9 % [facility] ABSOLUTE NEUTS 5.30 1.40 - 7.70 K/uL [facility] ABSOLUTE LYMPHS 1.34 0.60 - 3.20 K/uL [facility] ABSOLUTE MONOS 0.52 0.11 - 0.59 K/uL [facility] ABSOLUTE EOS 0.13 0.01 - 0.50 K/uL [facility] ABSOLUTE BASOS 0.05 0.00 - 0.08 K/uL [facility] Granulocytes, immature 0.02 0.00 - 0.05 K/uL [facility] Blood 07/23/2017 1:16 PM EDT 07/23/2017 1:18 PM EDT Vinay Serrano MD LAB BLOOD ORDERABLES Final Result [facility] 30 [place] [address] documented in this encounter Visit Diagnoses Diagnosis Subchronic schizophrenia- Primary Unspecified schizophrenia, subchronic condition documented in this encounter Additional Health Concerns Infection Onset Date Last Indicated Resolved Time CoV-Risk Comment:Neg covid 05/20/2022 05/21/2022 05/22/2022 6:[address] CoV-Risk 01/17/2024 01/17/2024 01/28/2024 1:22 AM EDT documented as of this encounter Care Teams Patient Assessment Coordinator Relationship Specialty Start Date End Date Al Alcantara MD [address] [place] [phone] [email or web address] PCP - General 02/04/17 06/09/19 Al Alcantara MD [address] [place] [phone] [email or web address] PCP - General Family Medicine 06/10/19 09/28/19 Callum Field MD [address] [place] [phone] [email or web address] PCP - General Family Medicine 09/29/19 12/27/22 Callum Field MD [address] [place] [phone] PCP - General Family Medicine 12/28/22 12/23/23 Callum Field MD [address] [place] [address] [email or web address] PCP - General Family Medicine 12/24/23 documented as of this encounter Additional Source Comments The information contained in this document represents components of the legal health record. It is not the complete legal health record.[facility]
--- OUTSIDE RECORDS SUMMARY | 2024-12-23 08:58 | XMS_ITS | Encounter Summary ---
Author Organization [facility] Address [address] [place] [phone] Phone Care Team Providers Care Body Welder Name Role Phone Al Alcantara MD Primary Care Provider Al Alcantara MD Primary Care Provider [phone] Callum Field MD Primary Care Provider Callum Field MD Primary Care Provider [phone] Callum Field MD Primary Care Provider [phone] Encounter Details Date Type Department Care Team (Latest Contact Info) Description 08/21/2017 Transcribe Orders [facility] Laboratory 30 [place] [address] Vinay Serrano MD 50 [place], [place] [phone] Subchronic schizophrenia (Primary Dx) Social History Tobacco [...] Info) Description 02/09/2025 3:45 PM EDT Appointment [facility], [facility] [address] [place] [address] Serafin Murray DO 70 [place] [address] documented as of this encounter Visit Diagnoses Diagnosis Subchronic schizophrenia- Primary Unspecified schizophrenia, subchronic condition documented in this encounter Additional Health Concerns Infection Onset Date Last Indicated Resolved Time CoV-Risk Comment:Neg covid 05/20/2022 05/21/2022 05/22/2022 6:[address] CoV-Risk 01/17/2024 01/17/2024 01/28/2024 1:22 AM EDT documented as of this encounter Care Teams Body Welder Relationship Specialty Start Date End Date Al Alcantara MD [address] [place] [phone] [email or web address] PCP - General 02/04/17 06/09/19 Al Alcantara MD [address] [place] [phone] [email or web address] PCP - General Family Medicine 06/10/19 09/28/19 Callum Field MD [address] [place] [phone] PCP - General Family Medicine 09/29/19 12/27/22 Callum Field MD [address] [place] [phone] PCP - General Family Medicine 12/28/22 12/23/23 Callum Field MD [address] [place] [phone] PCP - General Family Medicine 12/24/23 documented as of this encounter Additional Source Comments The information contained in this document represents components of the legal health record. It is not the complete legal health record.[facility]
--- OUTSIDE RECORDS SUMMARY | 2024-12-23 08:58 | XMS_ITS | Encounter Summary ---
Author Organization [facility] Address [address] [place] [phone] Phone Care Team Providers Care Maintenance Supervisor Mechanical Name Role Phone Al Alcantara MD Primary Care Provider [phone] Al Alcantara MD Primary Care Provider Callum Field MD Primary Care Provider [phone] Callum Field MD Primary Care Provider Callum Field MD Primary Care Provider [phone] Encounter Details Date Type Department Care Team (Latest Contact Info) Description 02/20/2017 Transcribe Orders [facility] [address] [place] [address] Vinay Serrano MD 50 [place], [place] [phone] Subchronic schizophrenia (Primary Dx) Social History Tobacco [...] Info) Description 02/09/2025 3:45 PM EDT Appointment [facility], [facility] 30 [place] [address] Serafin Murray DO 70 [place] [address] documented as of this encounter Procedures Procedure [...] BLOOD ORDERABLES Final Result Performing Organization Address City/State/[facility] Co de Phone Number [facility] 30 [place] [address] documented in this encounter Visit Diagnoses Diagnosis Subchronic schizophrenia- Primary Unspecified schizophrenia, subchronic condition documented in this encounter Additional Health Concerns Infection Onset Date Last Indicated Resolved Time CoV-Risk Comment:Neg covid 05/20/2022 05/21/2022 05/22/2022 6:[address] CoV-Risk 01/17/2024 01/17/2024 01/28/2024 1:22 AM EDT documented as of this encounter Care Teams Maintenance Supervisor Mechanical Relationship Specialty Start Date End Date Al Alcantara MD [address] [place] [phone] [email or web address] PCP - General 02/04/17 06/09/19 Al Alcantara MD [address] [place] [phone] [email or web address] PCP - General Family Medicine 06/10/19 09/28/19 Callum Field MD [address] [place] [address] [email or web address] PCP - General Family Medicine 09/29/19 12/27/22 Callum Field MD [address] [place] [phone] PCP - General Family Medicine 12/28/22 12/23/23 Callum Field MD [address] [place] [phone] [email or web address] PCP - General Family Medicine 12/24/23 documented as of this encounter Additional Source Comments The information contained in this document represents components of the legal health record. It is not the complete legal health record.[facility]
--- OUTSIDE RECORDS SUMMARY | 2024-12-23 08:59 | XMS_ITS | Encounter Summary ---
Author Organization [facility] Address [address] [place] [phone] Phone Care Team Providers Care Cell Biologist Name Role Phone Al Alcantara MD Primary Care Provider [phone] Al Alcantara MD Primary Care Provider Callum Field MD Primary Care Provider [phone] Callum Field MD Primary Care Provider Callum Field MD Primary Care Provider [phone] Encounter Details Date Type Department Care Team (Latest Contact Info) Description 04/02/2017 Transcribe Orders [facility] Laboratory 30 [place] [address] Vinay Serrano MD [address] [place] [address] [phone] Subchronic schizophrenia (Primary Dx) Social History Tobacco [...] Info) Description 02/09/2025 3:45 PM EDT Appointment [facility], [facility] 30 [place] [address] Serafin Murray DO [address] [place] [address] documented as of this encounter Procedures Procedure Name Priority Date/Time Associated Diagnosis Comments CBC AND DIFFERENTIAL Routine 04/02/2017 2:23 PM EST Subchronic schizophrenia documented in this encounter Results * (ABNORMAL) CBC and differential (04/02/2017 2:23 PM EST) WBC 7.60 3.40 - 11.20 K/uL [facility] RBC 3.80 3.80 - 4.80 M/uL [facility] HGB 11.4(L) 12.0 - 15.0 g/dL [facility] HCT 34.4(L) 36.0 - 46.0 % [facility] PLT 240 130 - 400 K/uL [facility] MCV 90.5 79.0 - 98.0 fL [facility] MCH 30.0 27.0 - 34.8 pg [facility] MCHC 33.1 31.5 - 36.0 g/dL [facility] RDW 13.3 10.8 - 14.6 % [facility] MPV 10.7 9.4 - 12.4 fl [facility] NRBC 0.00 /100 WBCs [facility] ABSOLUTE NRBC 0.00 K/uL [facility] DIFF METHOD Auto [facility] NEUTS 63.0 45.30 - 77.70 % [facility] LYMPHS 22.0 12.30 - 39.70 % [facility] MONOS 9.2 4.10 - 12.80 % [facility] EOS 4.7 0 - 7.2 % [facility] BASOS 0.8 0 - 2.80 % [facility] Granulocytes, immature (%) 0.3 0.0 - 0.9 % [facility] ABSOLUTE NEUTS 4.79 1.40 - 7.70 K/uL [facility] ABSOLUTE LYMPHS 1.67 0.60 - 3.20 K/uL [facility] ABSOLUTE MONOS 0.70(H) 0.11 - 0.59 K/uL [facility] ABSOLUTE EOS 0.36 0.01 - 0.50 K/uL [facility] ABSOLUTE BASOS 0.06 0.00 - 0.08 K/uL [facility] Granulocytes, immature 0.02 0.00 - 0.05 K/uL [facility] Blood 04/02/2017 2:23 PM EST 04/02/2017 2:25 PM EST Vinay Serrano MD LAB BLOOD ORDERABLES Final Result Performing Organization Address City/State/[facility] Co de Phone Number [facility] 30 [place] [address] documented in this encounter Visit Diagnoses Diagnosis Subchronic schizophrenia- Primary Unspecified schizophrenia, subchronic condition documented in this encounter Additional Health Concerns Infection Onset Date Last Indicated Resolved Time CoV-Risk Comment:Neg covid 05/20/2022 05/21/2022 05/22/2022 6:[address] CoV-Risk 01/17/2024 01/17/2024 01/28/2024 1:22 AM EDT documented as of this encounter Care Teams Cell Biologist Relationship Specialty Start Date End Date Al Alcantara MD [address] [place] [phone] [email or web address] PCP - General 02/04/17 06/09/19 Al Alcantara MD [address] [place] [phone] [email or web address] PCP - General Family Medicine 06/10/19 09/28/19 Callum Field MD [address] [place] [phone] [email or web address] PCP - General Family Medicine 09/29/19 12/27/22 Callum Field MD [address] [place] [phone] PCP - General Family Medicine 12/28/22 12/23/23 Callum Field MD [address] [place] [phone] [email or web address] PCP - General Family Medicine 12/24/23 documented as of this encounter Additional Source Comments The information contained in this document represents components of the legal health record. It is not the complete legal health record.[facility]
--- OUTSIDE RECORDS SUMMARY | 2024-12-23 08:59 | XMS_ITS | Encounter Summary ---
Author Organization [facility] Address [address] [place] [address] Phone Care Team Providers Care Lumber Stacker Name Role Phone Callum Field MD Primary Care Provider [phone] Callum Field MD Primary Care Provider [phone] Callum Field MD Primary Care Provider [phone] Encounter Details Date Type Department Care Team (Late st Contact Info) Description 01/19/2022 Procedure Pass [facility], Ct Scan - [facility] 30 [place], [place] [phone] Social History Tobacco Use Types Packs/Day Years [...] 12:59 PM EDT Christy Duron RN * [place] Suicide Severity Rating Scale (Screener/Recent Self-Report) Question [...] Info) Description 02/09/2025 3:45 PM EDT Appointment [facility], Bone Density - [facility] [address] [place] [address] Serafin Murray DO [address] [place] [address] documented as of this encounter Visit Diagnoses Not on filedocumented in this encounter Additional Health Concerns Infection Onset Date Last Indicated Resolved Time CoV-Risk Comment:Neg covid 05/20/2022 05/21/2022 05/22/2022 6:[address] CoV-Risk 01/17/2024 01/17/2024 01/28/2024 1:22 AM EDT documented as of this encounter Care Teams Lumber Stacker Relationship Specialty Start Date End Date Callum Field MD [email or web address] PCP - General Family Medicine 09/29/19 12/27/22 Callum Field MD PCP - General Family Medicine 12/28/22 12/23/23 Callum Field MD [address] [place] [address] [email or web address] PCP - General Family Medicine 12/24/23 documented as of this encounter Additional Source Comments The information contained in this document represents components of the legal health record. It is not the complete legal health record.[facility]
--- OUTSIDE RECORDS SUMMARY | 2024-12-23 08:59 | XMS_ITS | Encounter Summary ---
Author Organization [facility] Address [address] [address] Phone Care Team Providers Care Journeyman Level Acoustic Analyst Name Role Phone Al Alcantara MD Primary Care Provider [phone] Al Alcantara MD Primary Care Provider Callum Feild MD Primary Care Provider [phone] Callum Field MD Primary Care Provider [phone] Callum Field MD Primary Care Provider [phone] Encounter Details Date Type Department Care Team (Latest Contact Info) Description 05/28/2017 Transcribe Orders [facility] Laboratory [address] [place] [address] Vinay Serrano MD 50 [place], [place] [phone] Chronic schizophrenia (Primary Dx) Social History Tobacco [...] Info) Description 02/09/2025 3:45 PM EDT Appointment [facility], [facility] 30 [place] [address] Murray, DO Serafin [address] [place] [address] documented as of this encounter Results * (ABNORMAL) CBC and differential (05/28/2017 3:23 PM EST) WBC 7.56 3.40 - 11.20 K/uL [facility] RBC 3.57(L) 3.80 - 4.80 M/uL [facility] HGB 10.8(L) 12.0 - 15.0 g/dL [facility] HCT 33.1(L) 36.0 - 46.0 % [facility] PLT 258 130 - 400 K/uL [facility] MCV 92.7 79.0 - 98.0 fL [facility] MCH 30.3 27.0 - 34.8 pg [facility] MCHC 32.6 31.5 - 36.0 g/dL [facility] RDW 13.9 10.8 - 14.6 % [facility] MPV 10.2 9.4 - 12.4 fl [facility] NRBC 0.00 /100 WBCs [facility] ABSOLUTE NRBC 0.00 K/uL [facility] DIFF METHOD Auto [facility] NEUTS 71.5 45.30 - 77.70 % [facility] LYMPHS 19.8 12.30 - 39.70 % [facility] MONOS 6.5 4.10 - 12.80 % [facility] EOS 1.5 0 - 7.2 % [facility] BASOS 0.4 0 - 2.80 % [facility] Granulocytes, immature (%) 0.3 0.0 - 0.9 % [facility] ABSOLUTE NEUTS 5.41 1.40 - 7.70 K/uL [facility] ABSOLUTE LYMPHS 1.50 0.60 - 3.20 K/uL [facility] ABSOLUTE MONOS 0.49 0.11 - 0.59 K/uL [facility] ABSOLUTE EOS 0.11 0.01 - 0.50 K/uL [facility] ABSOLUTE BASOS 0.03 0.00 - 0.08 K/uL [facility] Granulocytes, immature 0.02 0.00 - 0.05 K/uL [facility] Blood 05/28/2017 3:23 PM EST 05/28/2017 3:25 PM EST Vinay Serrano MD LAB BLOOD ORDERABLES Final Result [facility] 30 [place] [address] documented in this encounter Visit Diagnoses Diagnosis Chronic schizophrenia- Primary Unspecified schizophrenia, chronic condition documented in this encounter Additional Health Concerns Infection Onset Date Last Indicated Resolved Time CoV-Risk Comment:Neg covid 05/20/2022 05/21/2022 05/22/2022 6:[address] CoV-Risk 01/17/2024 01/17/2024 01/28/2024 1:22 AM EDT documented as of this encounter Care Teams Journeyman Level Acoustic Analyst Relationship Specialty Start Date End Date Al Alcantara MD [address] [place] [phone] [email or web address] PCP - General 02/04/17 06/09/19 Al Alcantara MD [address] [place] [phone] [email or web address] PCP - General Family Medicine 06/10/19 09/28/19 Callum Field MD [address] [place] [phone] PCP - General Family Medicine 09/29/19 12/27/22 Callum Field MD [address] [place] [phone] PCP - General Family Medicine 12/28/22 12/23/23 Callum Field MD [address] [place] [phone] [email or web address] PCP - General Family Medicine 12/24/23 documented as of this encounter Additional Source Comments The information contained in this document represents components of the legal health record. It is not the complete legal health record.[facility]
--- OUTSIDE RECORDS SUMMARY | 2024-12-23 08:59 | XMS_ITS | Clinical Summary ---
Author Organization [facility] Address [address] [facility] [address] [place] [address] Phone Care Team Providers Care Traffic Lieutenant Name Role Phone Callum Field MD Primary Care Provider Allergies Active Allergy Reactions Criticality Noted Date [...] daily as needed (Anxiety). Last filled at [facility] [place] 01/06/24 01/06/2024 Active cloZAPine (CLOZARIL) 50 MG [...] Info) Description 02/09/2025 3:45 PM EDT Appointment [facility], Bone Density - [facility] [address] [place] [address] Serafin Murray DO [address] [place] [address] Health Maintenance Due Date Last Done Comments HEMOGLOBIN A1C 1950 DEPRESSION SCREENING 1963 SMOKING Hx and SMOKELESS TOBACCO SCREENING 1964 HEPATITIS C SCREENING 1969 LIPID PANEL 1969 MAMMOGRAM 1991 COLOGUARD 1996 FIT TEST 1996 FOBT 1996 SIGMOIDOSCOPY 1996 VIRTUAL COLONOSCOPY 1996 ZOSTER VACCINES (2 of 3) 10/09/2011 08/14/2011 OSTEOPOROSIS SCREENING INITIAL (ONE-TIME) 2016 Adult Td,Tdap Booster 01/10/2021 01/10/2011 BLOOD PRESSURE 08/03/2022 02/02/2022 DIABETIC EYE EXAM 06/25/2024 ABSOLUTE NEUTROPHIL COUNT (ANC) 09/22/2024 08/25/2024, 08/11/2024, 07/28/2024, Additional history exists INFLUENZA VACCINE (#1) 2024 , 03/06/2018, 02/28/2017, Additional history exists COVID-19 VACCINE ( season) 2024 07/12/2020, 06/14/2020 CREATININE LEVEL 06/25/2025 06/25/2024, , 05/24/2022, Additional [...] mellitus with other specified complication, unspecified whether intermediate insulin use Hypothyroidism, unspecified type Schizophrenia, unspecified type COMPREHENSIVE METABOLIC PANEL Routine 06/25/2024 5:10 AM EST Diverticulitis Other specified diabetes mellitus with other specified complication, unspecified whether intermediate insulin use ENDOSCOPY, COLON 03/05/2018 9:09 AM EST from Last 3 Months or Most Recently Relevant to Health Maintenance Results * (ABNORMAL) CBC and differential (08/25/2024 6:00 AM EDT) WBC 5.82 4.00 - 11.00 K/uL [facility] RBC 3.61(L) 4.00 - 5.20 M/uL [facility] HGB 10.7(L) 12.0 - 16.0 g/dL [facility] HCT 32.9(L) 36.0 - 46.0 % [facility] PLT 208 150 - 450 K/uL [facility] MCV 91.1 80.0 - 100.0 fL [facility] MCH 29.6 27.0 - 31.0 pg [facility] MCHC 32.5 32.0 - 36.0 g/dL [facility] RDW 14.4 11.5 - 14.5 % [facility] MPV 10.2 8.4 - 12.0 fL [facility] NRBC 0.00 0.00 /100 WBCs [facility] ABSOLUTE NRBC 0.00 0.00 K/uL [facility] DIFF METHOD Auto [facility] NEUTS 56.5 48.0 - 76.0 % [facility] LYMPHS 28.0 18.0 - 41.0 % [facility] MONOS 10.1 4.0 - 11.0 % [facility] EOS 4.3 0.0 - 5.0 % [facility] BASOS 0.9 0.0 - 1.5 % [facility] Granulocytes, immature (%) 0.2 0.0 - 0.9 % [facility] ABSOLUTE NEUTS 3.29 1.92 - 7.60 K/uL [facility] ABSOLUTE LYMPHS 1.63 0.72 - 4.10 K/uL [facility] ABSOLUTE MONOS 0.59 0.16 - 1.10 K/uL [facility] ABSOLUTE EOS 0.25 0.00 - 0.50 K/uL [facility] ABSOLUTE BASOS 0.05 0.00 - 0.15 K/uL [facility] Granulocytes, immature 0.01 0.00 - 0.09 K/uL [facility] Blood 08/25/2024 6:00 AM EDT 08/25/2024 8:25 AM EDT us Vinay Serrano MD LAB BLOOD ORDERABLES Final Result Performing Organization Address [facility]/ZIP Co de Phone Number [address] [address] * (ABNORMAL) TSH (07/01/2024 5:45 AM EDT) Pathologist [facility] TSH 10.70(H) 0.27 - 4.20 uIU/mL [facility] Blood 07/01/2024 5:45 AM EDT 07/01/2024 8:10 AM EDT us Katelynn Marsh NP LAB BLOOD ORDERABLES Final Resul t Performing Organization Address [facility]/ZIP Co de Phone Number [address] [address] * (ABNORMAL) Comprehensive metabolic panel (06/25/2024 5:10 AM EST) Pathologist [facility] SODIUM 144 133 - 146 mmol/L [facility] POTASSIUM 4.8 3.3 - 5.1 mmol/L [facility] CHLORIDE 108 96 - 108 mmol/L [facility] CO2 25 21 - 35 mmol/L [facility] BUN 25(H) 6 - 19 mg/dL [facility] CREATININE 1.20 0.5 - 1.5 mg/dL [facility] GLUCOSE 100(H) 70 - 99 mg/dL [facility] ALBUMIN 3.5(L) 3.9 - 4.8 g/dL [facility] TOTAL PROTEIN 5.3(L) 6.5 - 8.0 g/dL [facility] CALCIUM 8.8 8.4 - 10.3 mg/dL [facility] ALKALINE PHOSPHATASE 143(H) 39 - 117 U/L [facility] TOTAL BILIRUBIN 0.3 0.0 - 1.2 mg/dL [facility] AST 21 0 - 37 U/L [facility] ALT 23 0 - 40 U/L [facility] GLOBULIN 1.8 1 - 4.8 g/dL [facility] EGFR 48(L) >59 mL/min/1.7 3m2 [facility] Comment:Estimated glomerular filtration rate calculated using the CKD-EPI refit equation. ANION GAP 16 10 - 20 mmol/L [facility] Blood 06/25/2024 5:10 AM EST 06/25/2024 8:41 AM EST us Katelynn Marsh COMMUTATOR V RING ASSEMBLER LAB BLOOD ORDERABLES Final Resul t Performing Organization Address City/State/[facility] Co de Phone Number [address] [address] * ENDOSCOPY, COLON (03/05/2018 9:09 AM EST) Narrative Transcriptions Shan Cote MD - 03/05/2018 9:09 AM EST Patient Name: Deedee Holbrook Attending MD:: SHAN COTE MD Procedure Date: 03/05/2018 9:09 AM Date of : 1950 Age: 67 Admit Type: Outpatient Gender: Female Room: [facility] 05 Referring MD: SUZY LUNDY MD Exam Type: [...] 9:09 AM Procedure Code(s): --- Professional --- 26760, Colonoscopy, flexible; with biopsy, single or multiple --- Technical --- 54244, Colonoscopy, flexible; with biopsy, single or multiple [...] perforation orabscess without bleeding CPT copyright 2016 [employer]. All rights reserved. The codes documented in this report are preliminary and upon director targeted marketing reviewmay be revised to meet current compliance requirements. [address] [place] [address] Suzy Lundy MD GI PROCEDURE ORDERABLES Final R esult from Last 3 Months or Most Recently Relevant to Health Maintenance [place] BL[place] [id number] [place] Advance Directives For more information, please contact: [phone] (9AM - 5PM [place], Saturday-Saturday) Documents on File Type Date Recorded Patient Passenger Conductor Expl anation Healthcare Proxy 05/25/2022 2:05 PM * Full Code (Latest Code Status on File) Date Activated Date Inactivated Comments 05/22/2022 12:26 AM Question Answer Comments Code Status Confirmed With: Patient * Full Code (Confirmed) Date Activated Date Inactivated Comments 04/14/2017 4:14 AM 04/19/2017 3:46 PM Question Answer Comments Code Discussion Comments: Patient Care Teams Traffic Lieutenant Relationship Specialty Start Date End Date Callum Field MD [address] [place] [address] [email or web address] PCP - General Family Medicine 12/24/23 Additional Source Comments The information contained in this document represents components of the legal health record. It is not the complete legal health record.[facility]
--- OUTSIDE RECORDS SUMMARY | 2024-12-23 08:59 | XMS_ITS | Encounter Summary ---
Author Organization [facility] Address [address] [place] [address] Phone Care Team Providers Care Dispensing And Measuring Optician Name Role Phone Callum Field MD Primary Care Provider [phone] Callum Field MD Primary Care Provider [phone] Callum Field MD Primary Care Provider Encounter Details Date Type Department Care Team (Late st Contact Info) Description 09/25/2022 Ancillary Orders Virtual Department [address] [place] [address] Mei Rodriguez MD [address] [place] [address] [email or web address] Osteopenia, unspecified location; Other specified disorders of [...] Info) Description 02/09/2025 3:45 PM EDT Appointment [facility], Bone Density - [facility] [address] [place] [address] Serafin Murray DO [address] [place] [address] documented as of this encounter Visit Diagnoses Diagnosis Osteopenia, unspecified location Other specified disorders of bone density and structure, unspecified site documented in this encounter Additional Health Concerns Infection Onset Date Last Indicated Resolved Time CoV-Risk 01/17/2024 01/17/2024 01/28/2024 1:22 AM EDT documented as of this encounter Care Teams Dispensing And Measuring Optician Relationship Specialty Start Date End Date Callum Field MD PCP - General Family Medicine 09/29/19 12/27/22 Callum Field MD PCP - General Family Medicine 12/28/22 12/23/23 Callum Field MD [address] [place] [id number] PCP - General Family Medicine 12/24/23 documented as of this encounter Additional Source Comments The information contained in this document represents components of the legal health record. It is not the complete legal health record.[facility]
--- OUTSIDE RECORDS SUMMARY | 2024-12-23 08:59 | XMS_ITS | Encounter Summary ---
Author Organization [facility] Address [address] [place] [address] Phone Care Team Providers Care Top Lift Compresser Name Role Phone Al Alcantara MD Primary Care Provider Al Alcantara MD Primary Care Provider Callum Field MD Primary Care Provider [phone] Callum Field MD Primary Care Provider [phone] Callum Field MD Primary Care Provider [phone] Encounter Details Date Type Department Care Team (Late st Contact Info) Description 01/08/2018 Transcribe Orders [facility] Laboratory [address] [place] [address] Vinay Serrano MD [address] [place], [place] [id number] Social History Tobacco Use Types Packs/Day Years [...] Info) Description 02/09/2025 3:45 PM EDT Appointment [facility], [facility] [address] [place] [address] Serafin Murray DO [address] [place] [address] documented as of this encounter Visit Diagnoses Not on filedocumented in this encounter Additional Health Concerns Infection Onset Date Last Indicated Resolved Time CoV-Risk Comment:Neg covid 05/20/2022 05/21/2022 05/22/2022 6:[address] CoV-Risk 01/17/2024 01/17/2024 01/28/2024 1:22 AM EDT documented as of this encounter Care Teams Top Lift Compresser Relationship Specialty Start Date End Date Al Alcantara MD [address] [place] [address] [email or web address] PCP - General 02/04/17 06/09/19 Al Alcantara MD [address] [place] [address] [email or web address] PCP - General Family Medicine 06/10/19 09/28/19 Callum Field MD [address] [place] [phone] PCP - General Family Medicine 09/29/19 12/27/22 Callum Field MD [address] [place] [phone] PCP - General Family Medicine 12/28/22 12/23/23 Callum Field MD [address] [place] [phone] PCP - General Family Medicine 12/24/23 documented as of this encounter Additional Source Comments The information contained in this document represents components of the legal health record. It is not the complete legal health record.[facility]
--- OUTSIDE RECORDS SUMMARY | 2024-12-23 08:59 | XMS_ITS | Encounter Summary ---
Author Organization [facility] Address [address] [place] [address] Phone Care Team Providers Care Senior Sales Representative Name Role Phone Callum Field MD Primary Care Provider [phone] Callum Field MD Primary Care Provider [phone] Callum Field MD Primary Care Provider [phone] Encounter Details Date Type Department Care Team (Late st Contact Info) Description 05/22/2022 Procedure Pass [facility], Ct Scan - [address] [address] Social History Tobacco Use Types Packs/Day Years [...] Info) Description 02/09/2025 3:45 PM EDT Appointment [facility], Bone Density - [address] [address] Serafin Murray DO [address] [place] [address] documented as of this encounter Visit Diagnoses Not on filedocumented in this encounter Additional Health Concerns Infection Onset Date Last Indicated Resolved Time CoV-Risk Comment:Neg covid 05/20/2022 05/21/2022 05/22/2022 6:[address] CoV-Risk 01/17/2024 01/17/2024 01/28/2024 1:22 AM EDT documented as of this encounter Care Teams Senior Sales Representative Relationship Specialty Start Date End Date Callum Field MD [email or web address] PCP - General Family Medicine 09/29/19 12/27/22 Callum Field MD PCP - General Family Medicine 12/28/22 12/23/23 Callum Field MD [address] [place] [phone] [email or web address] PCP - General Family Medicine 12/24/23 documented as of this encounter Additional Source Comments The information contained in this document represents components of the legal health record. It is not the complete legal health record.[facility]
--- OUTSIDE RECORDS SUMMARY | 2024-12-23 08:59 | XMS_ITS | Encounter Summary ---
Author Organization [facility] Address [address] [place] [phone] Phone Care Team Providers Care Head Operator Name Role Phone Al Alcantara MD Primary Care Provider Al Alcantara MD Primary Care Provider Callum Field MD Primary Care Provider [phone] Callum Field MD Primary Care Provider [phone] Callum Field MD Primary Care Provider [phone] Encounter Details Date Type Department Care Team (Latest Contact Info) Description 05/01/2017 Transcribe Orders [facility] Laboratory [address] [place] [address] Vinay Serrano MD [address] [place], [place] [phone] Subchronic schizophrenia (Primary Dx) Social History Tobacco [...] Description 02/09/2025 3:45 PM EDT Appointment [facility], [facility] [address] [place] [address] Trevor DO Serafin [address] [place] [address] documented as of this encounter Procedures Procedure Name Priority Date/Time Associated Diagnosis Comments CBC AND DIFFERENTIAL Routine 05/01/2017 10:51 AM EST Subchronic schizophrenia documented in this encounter Results * (ABNORMAL) CBC and differential (05/01/2017 10:51 AM EST) WBC 6.68 3.40 - 11.20 K/uL [facility] RBC 3.53(L) 3.80 - 4.80 M/uL [facility] HGB 10.6(L) 12.0 - 15.0 g/dL [facility] HCT 33.0(L) 36.0 - 46.0 % [facility] PLT 351 130 - 400 K/uL [facility] MCV 93.5 79.0 - 98.0 fL [facility] MCH 30.0 27.0 - 34.8 pg [facility] MCHC 32.1 31.5 - 36.0 g/dL [facility] RDW 14.2 10.8 - 14.6 % [facility] MPV 10.0 9.4 - 12.4 [facility] NRBC 0.00 /100 WBCs [facility] ABSOLUTE NRBC 0.00 K/uL [facility] DIFF METHOD Auto [facility] NEUTS 64.6 45.30 - 77.70 % [facility] LYMPHS 20.7 12.30 - 39.70 % [facility] MONOS 9.1 4.10 - 12.80 % [facility] EOS 4.3 0 - 7.2 % [facility] BASOS 1.2 0 - 2.80 % [facility] Granulocytes, immature (%) 0.1 0.0 - 0.9 % [facility] ABSOLUTE NEUTS 4.31 1.40 - 7.70 K/uL [facility] ABSOLUTE LYMPHS 1.38 0.60 - 3.20 K/uL [facility] ABSOLUTE MONOS 0.61(H) 0.11 - 0.59 K/uL [facility] ABSOLUTE EOS 0.29 0.01 - 0.50 K/uL [facility] ABSOLUTE BASOS 0.08 0.00 - 0.08 K/uL [facility] Granulocytes, immature 0.01 0.00 - 0.05 K/uL [facility] Blood 05/01/2017 10:5 1 AM EST 05/01/2017 10:53 AM EST us Vinay Serrano MD LAB BLOOD ORDERABLES Final Result [facility] [address] [place] [address] documented in this encounter Visit Diagnoses Diagnosis Subchronic schizophrenia- Primary Unspecified schizophrenia, subchronic condition documented in this encounter Additional Health Concerns Infection Onset Date Last Indicated Resolved Time CoV-Risk Comment:Neg covid 05/20/2022 05/21/2022 05/22/2022 6:[address] CoV-Risk 01/17/2024 01/17/2024 01/28/2024 1:22 AM EDT documented as of this encounter Care Teams Head Operator Relationship Specialty Start Date End Date Al Alcantara MD [address] [place] [phone] [email or web address] PCP - General 02/04/17 06/09/19 Al Alcantara MD [address] [place] [phone] [email or web address] PCP - General Family Medicine 06/10/19 09/28/19 Callum Field MD [address] [place] [address] [email or web address] PCP - General Family Medicine 09/29/19 12/27/22 Callum Field MD [address] [place] [address] [email or web address] PCP - General Family Medicine 12/28/22 12/23/23 Callum Field MD [address] [place] [address] [email or web address] PCP - General Family Medicine 12/24/23 documented as of this encounter Additional Source Comments The information contained in this document represents components of the legal health record. It is not the complete legal health record.[facility]
--- OUTSIDE RECORDS SUMMARY | 2024-12-23 08:59 | XMS_ITS | Encounter Summary ---
Author Organization [facility] Address [address] [place] [address] Phone Care Team Providers Care Handbell Choir Director Name Role Phone Callum Field MD Primary Care Provider [phone] Callum Field MD Primary Care Provider [phone] Callum Field MD Primary Care Provider [phone] Encounter Details Date Type Department Care Team (Late st Contact Info) Description 09/25/2022 Transcribe Orders Virtual Department 30 [place] [address] Mei Rodriguez MD [address] [place] [address] [email or web address] Osteopenia, unspecified location Social History Tobacco Use [...] Info) Description 02/09/2025 3:45 PM EDT Appointment [facility], Bone Density - [facility] [address] [place] [address] Serafin Murray DO [address] [place] [address] documented as of this encounter Visit Diagnoses Diagnosis Osteopenia, unspecified location documented in this encounter Additional Health Concerns Infection Onset Date Last Indicated Resolved Time CoV-Risk 01/17/2024 01/17/2024 01/28/2024 1:22 AM EDT documented as of this encounter Care Teams Handbell Choir Director Relationship Specialty Start Date End Date Callum Field MD PCP - General Family Medicine 09/29/19 12/27/22 Callum Field MD PCP - General Family Medicine 12/28/22 12/23/23 Callum Field MD [address] [place] [phone] PCP - General Family Medicine 12/24/23 documented as of this encounter Additional Source Comments The information contained in this document represents components of the legal health record. It is not the complete legal health record.[facility]
--- OUTSIDE RECORDS SUMMARY | 2024-12-23 08:59 | XMS_ITS | Encounter Summary ---
Author Organization [facility] Address [address] [place] [address] Phone Care Team Providers Care Business Systems Architect Name Role Phone Al Alcantara MD Primary Care Provider Al Alcantara MD Primary Care Provider [phone] Callum Field MD Primary Care Provider [phone] Callum Field MD Primary Care Provider [phone] Callum Field MD Primary Care Provider [phone] Encounter Details Date Type Department Care Team (Latest Contact Info) Description 06/25/2017 Transcribe Orders [facility] Laboratory [address] [place] [address] Vinay Serrano MD [address] [place], [place] [phone] Subchronic schizophrenia (Primary Dx) Social History Tobacco [...] Info) Description 02/09/2025 3:45 PM EDT Appointment [facility], [facility] [address] [place] [address] MurraySerafin DO [address] [place] [address] documented as of this encounter Results * (ABNORMAL) CBC and differential (06/25/2017 12:05 PM EST) WBC 7.99 3.40 - 11.20 K/uL [facility] RBC 3.48(L) 3.80 - 4.80 M/uL [facility] HGB 10.8(L) 12.0 - 15.0 g/dL [facility] HCT 31.6(L) 36.0 - 46.0 % [facility] PLT 247 130 - 400 K/uL [facility] MCV 90.8 79.0 - 98.0 fL [facility] MCH 31.0 27.0 - 34.8 pg [facility] MCHC 34.2 31.5 - 36.0 g/dL [facility] RDW 14.1 10.8 - 14.6 % [facility] MPV 10.3 9.4 - 12.4 fl [facility] NRBC 0.00 /100 WBCs [facility] ABSOLUTE NRBC 0.00 K/uL [facility] DIFF METHOD Auto [facility] NEUTS 70.6 45.30 - 77.70 % [facility] LYMPHS 18.9 12.30 - 39.70 % [facility] MONOS 6.9 4.10 - 12.80 % [facility] EOS 2.5 0 - 7.2 % [facility] BASOS 0.8 0 - 2.80 % [facility] Granulocytes, immature (%) 0.3 0.0 - 0.9 % [facility] ABSOLUTE NEUTS 5.65 1.40 - 7.70 K/uL [facility] ABSOLUTE LYMPHS 1.51 0.60 - 3.20 K/uL [facility] ABSOLUTE MONOS 0.55 0.11 - 0.59 K/uL [facility] ABSOLUTE EOS 0.20 0.01 - 0.50 K/uL [facility] ABSOLUTE BASOS 0.06 0.00 - 0.08 K/uL [facility] Granulocytes, immature 0.02 0.00 - 0.05 K/uL [facility] Blood 06/25/2017 12:0 5 PM EST 06/25/2017 12:08 PM EST Vinay Serrano MD LAB BLOOD ORDERABLES Final Result [facility] [address] [place] [address] documented in this encounter Visit Diagnoses Diagnosis Subchronic schizophrenia- Primary Unspecified schizophrenia, subchronic condition documented in this encounter Additional Health Concerns Infection Onset Date Last Indicated Resolved Time CoV-Risk Comment:Neg covid 05/20/2022 05/21/2022 05/22/2022 6:[address] CoV-Risk 01/17/2024 01/17/2024 01/28/2024 1:22 AM EDT documented as of this encounter Care Teams Business Systems Architect Relationship Specialty Start Date End Date Al Alcantara MD [address] [place] [phone] [email or web address] [email or web address] - General 02/04/17 06/09/19 Al Alcantara MD [address] [place] [phone] [email or web address] PCP - General Family Medicine 06/10/19 09/28/19 Callum Field MD [address] [place] [address] [email or web address] PCP - General Family Medicine 09/29/19 12/27/22 Callum Field MD [address] [place] [address] [email or web address] PCP - General Family Medicine 12/28/22 12/23/23 Callum Field MD [address] [place] [phone] [email or web address] PCP - General Family Medicine 12/24/23 documented as of this encounter Additional Source Comments The information contained in this document represents components of the legal health record. It is not the complete legal health record.[facility]
--- OUTSIDE RECORDS SUMMARY | 2024-12-23 08:59 | XMS_ITS | Encounter Summary ---
Author Organization [facility] Address [address] [place] [address] Phone Care Team Providers Care Fishing Tool Supervisor Name Role Phone Al Alcantara MD Primary Care Provider [phone] Al Alcantara MD Primary Care Provider Callum Field MD Primary Care Provider Callum Field MD Primary Care Provider Callum Field MD Primary Care Provider Encounter Details Date Type Department Care Team (Late st Contact Info) Description 03/09/2017 Transcribe Orders [facility] Laboratory [address] [place] [address] Vinay Serrano MD [address] [place] [address] [id number] Drug therapy (Primary Dx) Social History Tobacco [...] Info) Description 02/09/2025 3:45 PM EDT Appointment [facility], [facility] [address] [place] [address] Serafin Murray DO [address] [place] [address] documented as of this encounter Procedures Procedure Name Priority Date/Time Associated Diagnosis Comments CBC AND DIFFERENTIAL Routine 03/09/2017 10:16 AM EST Drug therapy documented in this encounter Results * (ABNORMAL) CBC and differential (03/09/2017 10:16 AM EST) WBC 5.93 3.40 - 11.20 K/uL [facility] RBC 3.86 3.80 - 4.80 M/uL [facility] HGB 11.7(L) 12.0 - 15.0 g/dL [facility] HCT 34.8(L) 36.0 - 46.0 % [facility] PLT 238 130 - 400 K/uL [facility] MCV 90.2 79.0 - 98.0 fL [facility] MCH 30.3 27.0 - 34.8 pg [facility] MCHC 33.6 31.5 - 36.0 g/dL [facility] RDW 13.2 10.8 - 14.6 % [facility] MPV 10.2 9.4 - 12.4 fl [facility] NRBC 0.00 /100 WBCs [facility] ABSOLUTE NRBC 0.00 K/uL [facility] DIFF METHOD Auto [facility] NEUTS 54.0 45.30 - 77.70 % [facility] LYMPHS 30.5 12.30 - 39.70 % [facility] MONOS 8.6 4.10 - 12.80 % [facility] EOS 5.4 0 - 7.2 % [facility] BASOS 1.3 0 - 2.80 % [facility] Granulocytes, immature (%) 0.2 0.0 - 0.9 % [facility] ABSOLUTE NEUTS 3.20 1.40 - 7.70 K/uL [facility] ABSOLUTE LYMPHS 1.81 0.60 - 3.20 K/uL [facility] ABSOLUTE MONOS 0.51 0.11 - 0.59 K/uL [facility] ABSOLUTE EOS 0.32 0.01 - 0.50 K/uL [facility] ABSOLUTE BASOS 0.08 0.00 - 0.08 K/uL [facility] Granulocytes, immature 0.01 0.00 - 0.05 K/uL [facility] Blood 03/09/2017 10:1 6 AM EST 03/09/2017 10:18 AM EST Vinay Serrano MD LAB BLOOD ORDERABLES Final Result Performing Organization Address City/State/[facility] Co de Phone Number [facility] [address] [place] [address] documented in this encounter Visit Diagnoses Diagnosis Drug therapy- Primary Encounter for other specified aftercare documented in this encounter Additional Health Concerns Infection Onset Date Last Indicated Resolved Time CoV-Risk Comment:Neg covid 05/20/2022 05/21/2022 05/22/2022 6:[address] CoV-Risk 01/17/2024 01/17/2024 01/28/2024 1:22 AM EDT documented as of this encounter Care Teams Fishing Tool Supervisor Relationship Specialty Start Date End Date Al Alcantara MD [address] [place] [phone] [email or web address] PCP - General 02/04/17 06/09/19 Al Alcantara MD [address] [place] [place] [phone] [email or web address] PCP - General Family Medicine 06/10/19 09/28/19 Callum Field MD [address] [place] [place] [phone] [email or web address] PCP - General Family Medicine 09/29/19 12/27/22 Callum Field MD [address] [place] [place] [phone] [email or web address] PCP - General Family Medicine 12/28/22 12/23/23 Callum Field MD [address] [place] [address] [email or web address] PCP - General Family Medicine 12/24/23 documented as of this encounter Additional Source Comments The information contained in this document represents components of the legal health record. It is not the complete legal health record.[facility]
--- OUTSIDE RECORDS SUMMARY | 2024-12-23 08:59 | XMS_ITS | Encounter Summary ---
Author Organization [facility] Address [address] [place] [address] Phone Care Team Providers Care Brick Picker Name Role Phone Al Alcantara MD Primary Care Provider Al Alcantara MD Primary Care Provider Callum Field MD Primary Care Provider Callum Field MD Primary Care Provider [phone] Callum Field MD Primary Care Provider [phone] Encounter Details Date Type Department Care Team (Late st Contact Info) Description 03/05/2018 Procedure Pass [facility] Endoscopy Admitting Dept Virtual Department [address] [place] [address] Social History Tobacco Use Types Packs/Day Years [...] Info) Description 02/09/2025 3:45 PM EDT Appointment [facility], [facility] - [address] [address] Serafin Murray DO [address] [place] [address] documented as of this encounter Visit Diagnoses Not on filedocumented in this encounter Additional Health Concerns Infection Onset Date Last Indicated Resolved Time CoV-Risk Comment:Neg covid 05/20/2022 05/21/2022 05/22/2022 6:[address] CoV-Risk 01/17/2024 01/17/2024 01/28/2024 1:22 AM EDT documented as of this encounter Care Teams Brick Picker Relationship Specialty Start Date End Date Al Alcantara MD [address] [place] [address] [email or web address] PCP - General 02/04/17 06/09/19 Al Alcantara MD [address] [place] [address] [email or web address] PCP - General Family Medicine 06/10/19 09/28/19 Callum Field MD [address] [place] [address] [email or web address] PCP - General Family Medicine 09/29/19 12/27/22 Callum Feild MD [address] [place] [address] [email or web address] PCP - General Family Medicine 12/28/22 12/23/23 Callum Field MD [address] [place] [address] [email or web address] PCP - General Family Medicine 12/24/23 documented as of this encounter Additional Source Comments The information contained in this document represents components of the legal health record. It is not the complete legal health record.[facility]
[2024-12-30 06:56] VITALS: BMI 30.7
[2024-12-30] MEDS: Lactated Ringers 1,000 ML 100 ML IVCONT (06:59)
--- NOTE | 2024-12-30 07:06 | MHC.SHP ---
Pre-Procedural Eval Section A - 24 Hr Update-Section A only Date of Service: 12/30/24 Changes since office visit: No Cold of Flu in the past 2 weeks, No New Medical Problems, No Changes in Medication and No Patient answered all questions The patient has been examined within 24 hours of the surgical procedure. The History & Physical has been completed within 30 days and I have reviewed it.: Yes Section B - Complete if H&P > 30 days Chief Complaint: depression Details of Present Illness: mood good until day before next ect again true no si Allergies: Allergies Allergy/AdvReac Type Severity Reaction Status Date / Time trifluoperazine (From Allergy Unknown Verified 09/25/24 09:52 Stelazine) Review of Systems Sugical H&P ROS: Negative: Constitution, Cardiovascular, Respiratory and Musculoskeletal and Yes, Specify: Psychiatric (some religios concerns day before tx no si) Exam Surgical H&P Exam: Normal: Heart (RRR), Normal: Lungs (CTA b/l) and Normal: Neurological Plan Diagnosis/Plan: Unchanged I have reviewed the history and physical and performed a pertinent physical examination on my patient. No changes have occurred unless specified. Time Spent With Patient Time: Total time managing care of this patient today _30___ minutes.
--- NOTE | 2024-12-30 07:27 | HO.ECTPROC ---
ECT Procedure Note Diagnosis/Treatment Date of Service: 12/30/24 Diagnosis: Schizoaffective Disorder Previous ECT Date: 12/23/24 Current Treatment Number: Other (19) Treatment: Maintenance Interval Clinical Notes: pt reports ECT is helping considerably. She reports good mood up until the day before her next ECT treatment; wants ECT to continue Weekly ongoing no change call to [facility] pts [facility] back to 0.5 pw Time: Total time managing care of this patient today _30___ minutes. ECT Settings Device: THYMATRON DGx Electrode Placement: Bifrontal Program/Pulse Width: 0.25 Energy Percent: 100 Seizure Duration By EEG (in seconds): 15 Medications Administration General Anesthetic: Etomidate (12) Muscle Relaxant: Succinylcholine (80) Ancillary Medications Anti-emetics: Zofran - Pre ECT Miscillaneous Medications: Propofol (30) Airway Management Airway Management: Bag Mask Ventilation Treatment Recommendations No Changes Recommended: No change Electrode Placement: Bifrontal Program/Pulse Width: 0.50 Energy Percent: 100 Notes: pt reports good mood with ECT that last 6 days;f/u 1 wk coord with outpt psych Pt Tolerated Procedure w/o Issue: Yes
--- NOTE | 2024-12-30 07:38 | HO.ANESPROP2 ---
[facility] Active Problems Active Problems: All Active Problems (Updated 07/03/24 @ 13:55 by Lolis Parks PA-C) Fracture of right inferior pubic ramus (Acute) Fracture of superior ramus of right pubis (Acute) Arachnoid cyst (Acute) Diverticulosis (Chronic) Schizophrenia (Acute) Past Medical History Medical History Diverticulosis Schizophrenia CKD (chronic kidney disease) Hyperlipidemia Type 2 diabetes mellitus Hypothyroidism HTN (hypertension) GERD (gastroesophageal reflux disease) Mood disorder Functional capacity: independent ambulation Family History Family history of problems with anesthesia: No Surgical History History of Problems with Anesthesia: No Social History Social History Household Members: None Household Members Other:: Lives at [facility] Housing: Assisted Living Facility Do you presently have visiting nurse or other home services: Yes Alcohol intake: current Alcohol intake frequency: does not drink Patient Tobacco Use Status: Never used Tobacco Tobacco use type: Cigarette Cigarette Packs Per Day: 3 Cigarettes Per Day: 60.0 Years Smoked: 16 Second Hand Smoke Exposure: No Use of substances other than those prescribed or required for medical reasons: No Advance Directives: No Advance Directives Information Provided: Yes service: No Current occupational status: retired Sexual orientation: Straight/Heterosexual Meds Allergies Allergy/AdvReac Type Severity Reaction Status Date / Time trifluoperazine (From Allergy Unknown Verified 09/25/24 09:52 Stelazine) Active Medications: Current Medications Lactated Ringer's (Lr) 1,000 mls @ 100 mls/hr IVCONT .Q10H YURY Last Admin: 12/30/24 06:59 Dose: 100 mls/hr Home Medications ?Medication ?Instructions ?Recorded ?Confirmed ?Last Taken ?Type acetaminophen 325 mg tablet 650 mg PO Q6H PRN pain/fever 06/22/24 11/25/24 Unknown History hydroxyzine HCl 25 mg tablet 25 mg PO Q6H PRN Anxiety 06/22/24 11/25/24 Unknown History polyethylene glycol 3350 17 gram 17 g PO BEDTIME 06/22/24 11/25/24 06/21/24 20:00 History oral powder packet polyethylene glycol 3350 17 gram 17 g PO DAILY PRN Constipation 06/22/24 11/25/24 Unknown History oral powder packet sennosides 8.6 mg tablet (Senna 8.6 mg PO BEDTIME 06/22/24 11/25/24 06/21/24 20:00 History Lax) sennosides 8.6 mg tablet (senna) 8.6 mg PO DAILY PRN Constipation 06/22/24 11/25/24 Unknown History trazodone 50 mg tablet 50 mg PO BEDTIME 06/22/24 11/25/24 06/21/24 20:00 History trazodone 50 mg tablet 50 mg PO BEDTIME PRN Insomnia 06/22/24 11/25/24 Unknown History bisacodyl 10 mg rectal suppository 10 mg NH DAILY PRN Constipation 07/03/24 11/25/24 Unknown History (Dulcolax (bisacodyl)) magnesium hydroxide 400 mg/5 mL 5 ml PO DAILY PRN Constipation 07/03/24 11/25/24 Unknown History oral suspension (Milk of Magnesia) sennosides 8.6 mg tablet (Senna 8.6 mg PO BEDTIME 07/03/24 11/25/24 Unknown History Lax) sodium phosphates 19 gram-7 118 ml NH DAILY PRN Dehydration 07/03/24 11/25/24 Unknown History gram/118 mL enema (Fleet Enema) cephalexin 500 mg capsule 500 mg PO QID 08/13/24 11/25/24 Unknown History Exam Exam Date and Time: 12/30/2021 Height,Weight and Vital Signs: Height 5 ft 6 in Weight 86.183 kg Airway Mallampati Class: II TM Dist: >3cm Loose/Missing/Broken Teeth: No Heart: rrr Lungs: cta Other: normal Assessment and Plan Assessment Anesthesia Assessment: Anesthesia Plan Discussed Final Anesthetic Review Family History of Problems with Anesthesia: No History of Problems with Anesthesia: No NPO: Yes ASA Class: III Final Preanesthetic Review: No Changes in Pt Med Stat, Meds/Allgs Chart Reviewed, Consent Obtained/Reviewed and Anes Risks/Benef Reviewed Patient Risk: Intermediate Procedure Risk: Intermediate Anesthetic Plan Anesthetic Plan: GA Disposition: Standard PACU
[2024-12-30 08:00] VITALS: BP 190/85; PULSE 75; RESP 12; TEMP 36.3; O2SAT 98
[2024-12-30 08:05] VITALS: BP 139/80; PULSE 75; RESP 12; O2SAT 99
[2024-12-30 08:10] VITALS: BP 139/89; PULSE 75; RESP 11; O2SAT 99
[2024-12-30 08:15] VITALS: BP 151/86; PULSE 76; RESP 13; O2SAT 98
[2024-12-30 08:30] VITALS: BP 155/93; PULSE 74; RESP 16; O2SAT 97
[2024-12-30 08:45] VITALS: BP 152/87; PULSE 75; RESP 15; TEMP 36.6; O2SAT 98
== END 2024-12-30 09:12 | disposition home or self-care (01) ==
PROVIDERS: PCP Internal Medicine; Visit Provider Psychiatry & Neurology Psychiatry
PROC: (CPT 90870; principal; 2024-12-30 08:00)
DX: F25.8 Other schizoaffective disorders (principal); I12.9 Hypertensive chronic kidney disease with stage 1 through stage 4 chronic kidney disease, or unspecified chronic kidney disease; N18.30 Chronic kidney disease, stage 3 unspecified; R73.03 Prediabetes; D64.9 Anemia, unspecified; E78.2 Mixed hyperlipidemia; E03.9 Hypothyroidism, unspecified; G89.29 Other chronic pain; M54.50 Low back pain, unspecified; Z79.899 Other long term (current) drug therapy; Z88.8 Allergy status to other drugs, medicaments and biological substances; Z87.891 Personal history of nicotine dependence
CPT/HCPCS: 90870; J0330; J2405; J2704

== ENCOUNTER → 2024-12-30 05:49 | Outpatient (BNV) | payer MEDICARE, MEDICAID, SELFPAY | PROVIDERS: PCP Internal Medicine; Visit Provider Psychiatry & Neurology Psychiatry | DX: F33.2 Major depressive disorder, recurrent severe without psychotic features (principal) | CPT/HCPCS: 90870 ==

== ENCOUNTER 2025-01-06 05:46 | Day surgery (SDC) | payer MEDICARE, MEDICAID, SELFPAY ==
--- OUTSIDE RECORDS SUMMARY | 2024-12-30 09:27 | XMS_ITS | Encounter Summary ---
Author Organization [facility] Address [address] [place] [address] Phone Care Team Providers Care Accounts Payable Representative Name Role Phone Al Alcantara MD Primary Care Provider Al Alcantara MD Primary Care Provider [phone] Callum Field MD Primary Care Provider [phone] Callum Field MD Primary Care Provider [phone] Callum Field MD Primary Care Provider Encounter Details Date Type Department Care Team (Latest Contact Info) Description 11/12/2017 Transcribe Orders [facility] Laboratory [address] [place] [address] Vinay Serrano MD [address] [place], [place] [phone] Subchronic schizophrenia (Primary Dx) Social History Tobacco [...] Info) Description 02/09/2025 3:45 PM EDT Appointment [facility], [facility] [address] [place] [address] Serafin Murray DO [address] [place] [address] documented as of this encounter Visit Diagnoses Diagnosis Subchronic schizophrenia- Primary Unspecified schizophrenia, subchronic condition documented in this encounter Additional Health Concerns Infection Onset Date Last Indicated Resolved Time CoV-Risk Comment:Neg covid 05/20/2022 05/21/2022 05/22/2022 6:[address] CoV-Risk 01/17/2024 01/17/2024 01/28/2024 1:22 AM EDT documented as of this encounter Care Teams Accounts Payable Representative Relationship Specialty Start Date End Date Al Alcantara MD [address] [place] [phone] PCP - General 02/04/17 06/09/19 Al Alcantara MD [address] [place] [address] 284[address] PCP - General Family Medicine 06/10/19 09/28/19 Callum Field MD [address] [place] [address] [phone] PCP - General Family Medicine 09/29/19 12/27/22 Callum Field MD [address] [place] [address] [email or web address] PCP - General Family Medicine 12/28/22 12/23/23 Callum Field MD [address] [place] [phone] PCP - General Family Medicine 12/24/23 documented as of this encounter Additional Source Comments The information contained in this document represents components of the legal health record. It is not the complete legal health record.[facility]
--- OUTSIDE RECORDS SUMMARY | 2024-12-30 09:27 | XMS_ITS | Encounter Summary ---
Author Organization [facility] Address [address] [place] [address] Phone Care Team Providers Care Stock Broker Supervisor Name Role Phone Al Alcantara MD Primary Care Provider [phone] Al Alcantara MD Primary Care Provider [phone] Callum Field MD Primary Care Provider [phone] Callum Field MD Primary Care Provider Callum Field MD Primary Care Provider [phone] Encounter Details Date Type Department Care Team (Latest Contact Info) Description 08/21/2017 Transcribe Orders [facility] Laboratory [address] [place] [address] Vinay Serrano MD [address] [place], [place] [phone] Subchronic schizophrenia (Primary Dx) Social History Tobacco [...] Info) Description 02/09/2025 3:45 PM EDT Appointment [facility], [facility] [address] [place] [address] Serafin Murray DO [address] [place] [address] documented as of this encounter Visit Diagnoses Diagnosis Subchronic schizophrenia- Primary Unspecified schizophrenia, subchronic condition documented in this encounter Additional Health Concerns Infection Onset Date Last Indicated Resolved Time CoV-Risk Comment:Neg covid 05/20/2022 05/21/2022 05/22/2022 6:[address] CoV-Risk 01/17/2024 01/17/2024 01/28/2024 1:22 AM EDT documented as of this encounter Care Teams Stock Broker Supervisor Relationship Specialty Start Date End Date Al Alcantara MD [address] [place] [address] [email or web address] PCP - General 02/04/17 06/09/19 Al Alcantara MD [address] [place] [address] [email or web address] PCP - General Family Medicine 06/10/19 09/28/19 Clalum Field MD [address] [place] [phone] PCP - General Family Medicine 09/29/19 12/27/22 Callum Field MD [address] [place] [address] PCP - General Family Medicine 12/28/22 12/23/23 Callum Field MD [address] [place] [phone] PCP - General Family Medicine 12/24/23 documented as of this encounter Additional Source Comments The information contained in this document represents components of the legal health record. It is not the complete legal health record.[facility]
--- OUTSIDE RECORDS SUMMARY | 2024-12-30 09:27 | XMS_ITS | Encounter Summary ---
Author Organization [facility] Address [address] [place] [address] Phone Care Team Providers Care Fern Gatherer Name Role Phone Al Alcantara MD Primary Care Provider [phone] Al Alcantara MD Primary Care Provider Callum Field MD Primary Care Provider [phone] Callum Field MD Primary Care Provider Callum Field MD Primary Care Provider [phone] Encounter Details Date Type Department Care Team (Latest Contact Info) Description 02/20/2017 Transcribe Orders [facility]lebotomy [address] [place] [address] Vinay Serrano MD [address] [place], [place] [phone] Subchronic schizophrenia (Primary Dx) Social History Tobacco [...] Info) Description 02/09/2025 3:45 PM EDT Appointment [facility] [address] [place] [address] Serafin Murray DO [address] [place] [address] documented as of this encounter Procedures Procedure Name Priority Date/Time Associated Diagnosis Comments CBC AND DIFFERENTIAL Routine 02/20/2017 11:31 AM EDT Subchronic schizophrenia documented in this encounter Results * (ABNORMAL) CBC and differential (02/20/2017 11:31 AM EDT) WBC 5.82 3.40 - 11.20 K/uL [facility] RBC 4.00 3.80 - 4.80 M/uL [facility] HGB 12.0 12.0 - 15.0 g/dL [facility] HCT 36.0 36.0 - 46.0 % [facility] PLT 218 130 - 400 K/uL [facility] MCV 90.0 79.0 - 98.0 fL [facility] MCH 30.0 27.0 - 34.8 pg [facility] MCHC 33.3 31.5 - 36.0 g/dL [facility] RDW 13.2 10.8 - 14.6 % [facility] MPV 10.7 9.4 - 12.4 fl [facility] NRBC 0.00 /100 WBCs [facility] ABSOLUTE NRBC 0.00 K/uL [facility] DIFF METHOD Auto [facility] NEUTS 52.6 45.30 - 77.70 % [facility] LYMPHS 29.9 12.30 - 39.70 % [facility] MONOS 8.1 4.10 - 12.80 % [facility] EOS 8.4(H) 0 - 7.2 % [facility] BASOS 0.7 0 - 2.80 % [facility] Granulocytes, immature (%) 0.3 0.0 - 0.9 % [facility] ABSOLUTE NEUTS 3.06 1.40 - 7.70 K/uL [facility] ABSOLUTE LYMPHS 1.74 0.60 - 3.20 K/uL [facility] ABSOLUTE MONOS 0.47 0.11 - 0.59 K/uL [facility] ABSOLUTE EOS 0.49 0.01 - 0.50 K/uL [facility] ABSOLUTE BASOS 0.04 0.00 - 0.08 K/uL [facility] Granulocytes, immature 0.02 0.00 - 0.05 K/uL [facility] Blood 02/20/2017 11:3 1 AM EDT 02/20/2017 11:34 AM EDT Vinay Serrano MD LAB BLOOD ORDERABLES Final Result Performing Organization Address City/State/[facility] Co de Phone Number [facility] [address] [place] [address] documented in this encounter Visit Diagnoses Diagnosis Subchronic schizophrenia- Primary Unspecified schizophrenia, subchronic condition documented in this encounter Additional Health Concerns Infection Onset Date Last Indicated Resolved Time CoV-Risk Comment:Neg covid 05/20/2022 05/21/2022 05/22/2022 6:[address] CoV-Risk 01/17/2024 01/17/2024 01/28/2024 1:22 AM EDT documented as of this encounter Care Teams Fern Gatherer Relationship Specialty Start Date End Date Al Alcantara MD [address] [place] [phone] [email or web address] PCP - General 02/04/17 06/09/19 Al Alcantara MD [address] [place] [address] [email or web address] PCP - General Family Medicine 06/10/19 09/28/19 Callum Field MD [address] [place] [phone] [email or web address] PCP - General Family Medicine 09/29/19 12/27/22 Callum Field MD [address] [place] [phone] [email or web address] PCP - General Family Medicine 12/28/22 12/23/23 Callum Field MD [address] [place] [address] [email or web address] PCP - General Family Medicine 12/24/23 documented as of this encounter Additional Source Comments The information contained in this document represents components of the legal health record. It is not the complete legal health record.[facility]
--- OUTSIDE RECORDS SUMMARY | 2024-12-30 09:28 | XMS_ITS | Encounter Summary ---
Author Organization [facility] Address [address] [place] [address] Phone Care Team Providers Care Corporate Strategy Analyst Name Role Phone Callum Field MD Primary Care Provider [phone] Callum Field MD Primary Care Provider Callum Field MD Primary Care Provider [phone] Encounter Details Date Type Department Care Team (Late st Contact Info) Description 05/22/2022 Procedure Pass [facility], Ct Scan - [address] [address] Social History Tobacco Use Types Packs/Day Years [...] Description 02/09/2025 3:45 PM EDT Appointment [facility], [facility] - [address] [address] Serafin Murray DO [address] [place] [address] documented as of this encounter Visit Diagnoses Not on filedocumented in this encounter Additional Health Concerns Infection Onset Date Last Indicated Resolved Time CoV-Risk Comment:Neg covid 05/20/2022 05/21/2022 05/22/2022 6:[address] CoV-Risk 01/17/2024 01/17/2024 01/28/2024 1:22 AM EDT documented as of this encounter Care Teams Corporate Strategy Analyst Relationship Specialty Start Date End Date Callum Feild MD [email or web address] PCP - General Family Medicine 09/29/19 12/27/22 Callum Field MD PCP - General Family Medicine 12/28/22 12/23/23 Callum Field MD [address] [place] [phone] [email or web address] PCP - General Family Medicine 12/24/23 documented as of this encounter Additional Source Comments The information contained in this document represents components of the legal health record. It is not the complete legal health record.[facility]
--- OUTSIDE RECORDS SUMMARY | 2024-12-30 09:28 | XMS_ITS | Clinical Summary ---
Author Organization [facility] Address [address] [facility] [address] [place] [address] Phone Care Team Providers Care Office Bookkeeper Name Role Phone Callum Field MD Primary Care Provider [phone] Allergies Active Allergy Reactions Criticality Noted Date [...] at [facility] [place] 01/06/24 01/06/2024 Active cloZAPine (CLOZARIL) 50 MG [...] Info) Description 02/09/2025 3:45 PM EDT Appointment [facility], Bone Density - [facility] [address] [place] [address] Serafin Murray DO [address] [place] [address] Health Maintenance Due Date Last Done Comments [...] mellitus with other specified complication, unspecified whether long-term insulin use Hypothyroidism, unspecified type Schizophrenia, unspecified type COMPREHENSIVE METABOLIC PANEL Routine 06/25/2024 5:10 AM EST Diverticulitis Other specified diabetes mellitus with other specified complication, unspecified whether long-term insulin use ENDOSCOPY, COLON 03/05/2018 9:09 AM EST from Last 3 Months or Most Recently Relevant to Health Maintenance Results * (ABNORMAL) CBC and differential (08/25/2024 6:00 AM EDT) WBC 5.82 4.00 - 11.00 K/uL [facility] RBC 3.61(L) 4.00 - 5.20 M/uL [facility] HGB 10.7(L) 12.0 - 16.0 g/dL [facility] HCT 32.9(L) 36.0 - 46.0 % [facility] PLT 208 150 - 450 K/uL [facility] MCV 91.1 80.0 - 100.0 fL [facility] MCH 29.6 27.0 - 31.0 pg [facility] MCHC 32.5 32.0 - 36.0 g/dL [facility] RDW 14.4 11.5 - 14.5 % [facility] MPV 10.2 8.4 - 12.0 fL [facility] NRBC 0.00 0.00 /100 WBCs [facility] ABSOLUTE NRBC 0.00 0.00 K/uL [facility] DIFF METHOD Auto [facility] NEUTS 56.5 48.0 - 76.0 % [facility] LYMPHS 28.0 18.0 - 41.0 % [facility] MONOS 10.1 4.0 - 11.0 % [facility] EOS 4.3 0.0 - 5.0 % [facility] BASOS 0.9 0.0 - 1.5 % [facility] Granulocytes, immature (%) 0.2 0.0 - 0.9 % [facility] ABSOLUTE NEUTS 3.29 1.92 - 7.60 K/uL [facility] ABSOLUTE LYMPHS 1.63 0.72 - 4.10 K/uL [facility] ABSOLUTE MONOS 0.59 0.16 - 1.10 K/uL [facility] ABSOLUTE EOS 0.25 0.00 - 0.50 K/uL [facility] ABSOLUTE BASOS 0.05 0.00 - 0.15 K/uL [facility] Granulocytes, immature 0.01 0.00 - 0.09 K/uL [facility] Blood 08/25/2024 6:00 AM EDT 08/25/2024 8:25 AM EDT us Vinay Serrano MD LAB BLOOD ORDERABLES Final Result Performing Organization Address [facility]/ZIP Co de Phone Number [address] [address] * (ABNORMAL) TSH (07/01/2024 5:45 AM EDT) Pathologist [facility] TSH 10.70(H) 0.27 - 4.20 uIU/mL [facility] Blood 07/01/2024 5:45 AM EDT 07/01/2024 8:10 AM EDT us Katelynn Marsh NP LAB BLOOD ORDERABLES Final Resul t Performing Organization Address [facility]/ZIP Co de Phone Number [address] [address] * (ABNORMAL) Comprehensive metabolic panel (06/25/2024 5:10 AM EST) Pathologist [facility] SODIUM 144 133 - 146 mmol/L [facility] POTASSIUM 4.8 3.3 - 5.1 mmol/L [facility] CHLORIDE 108 96 - 108 mmol/L [facility] CO2 25 21 - 35 mmol/L [facility] BUN 25(H) 6 - 19 mg/dL [facility] CREATININE 1.20 0.5 - 1.5 mg/dL [facility] GLUCOSE 100(H) 70 - 99 mg/dL [facility] ALBUMIN 3.5(L) 3.9 - 4.8 g/dL [facility] TOTAL PROTEIN 5.3(L) 6.5 - 8.0 g/dL [facility] CALCIUM 8.8 8.4 - 10.3 mg/dL [facility] ALKALINE PHOSPHATASE 143(H) 39 - 117 U/L [facility] TOTAL BILIRUBIN 0.3 0.0 - 1.2 mg/dL [facility] AST 21 0 - 37 U/L [facility] ALT 23 0 - 40 U/L [facility] GLOBULIN 1.8 1 - 4.8 g/dL [facility] EGFR 48(L) >59 mL/min/1.7 3m2 [facility] Comment:Estimated glomerular filtration rate calculated using the CKD-EPI refit equation. ANION GAP 16 10 - 20 mmol/L [facility] Blood 06/25/2024 5:10 AM EST 06/25/2024 8:41 AM EST us Katelynn Marsh CARDIOPULMONARY TECHNICIAN AND EEG TECH LAB BLOOD ORDERABLES Final Resul t Performing Organization Address City/State/[facility] Co de Phone Number [address] [address] * ENDOSCOPY, COLON (03/05/2018 9:09 AM EST) Narrative Transcriptions Shan Cote MD - 03/05/2018 9:09 AM EST Patient Name: Deedee Holbrook Attending MD:: SHAN COTE MD Procedure Date: 03/05/2018 9:09 AM Date of : 1950 Age: 67 Admit Type: Outpatient Gender: Female Room: [facility] 05 Referring MD: SUZY LUNDY MD Exam [...] 9:09 AM Procedure Code(s): --- Professional --- 70751, Colonoscopy, flexible; with biopsy, single or multiple --- Technical --- 34486, Colonoscopy, flexible; with biopsy, single or multiple [...] perforation orabscess without bleeding CPT copyright 2016 [employer]. All rights reserved. The codes documented in this report are preliminary and upon practice nurse reviewmay be revised to meet current compliance requirements. [address] [place] [address] Suzy Lundy MD GI PROCEDURE ORDERABLES Final R esult from Last 3 Months or Most Recently Relevant to Health Maintenance Insurance [place] BL[place] BL[place] [phone] [place] Advance Directives For more information, please contact: [phone] (9AM - 5PM [place], Saturday-Saturday) Documents on File Type Date Recorded Patient Log Raft Worker Expl anation Healthcare Proxy 05/25/2022 2:05 PM * Full Code (Latest Code Status on File) Date Activated Date Inactivated Comments 05/22/2022 12:26 AM Question Answer Comments Code Status Confirmed With: Patient * Full Code (Confirmed) Date Activated Date Inactivated Comments 04/14/2017 4:14 AM 04/19/2017 3:46 PM Question Answer Comments Code Discussion Comments: Patient Care Teams Office Bookkeeper Relationship Specialty Start Date End Date Callum Field MD [address] [place] [address] [email or web address] PCP - General Family Medicine 12/24/23 Additional Source Comments The information contained in this document represents components of the legal health record. It is not the complete legal health record.[facility]
--- OUTSIDE RECORDS SUMMARY | 2024-12-30 09:28 | XMS_ITS | Encounter Summary ---
Author Organization [facility] Address [address] [place] [address] Phone Care Team Providers Care Tanker Serviceman Name Role Phone Callum Field MD Primary Care Provider [phone] Encounter Details Date Type Department Care Team (Latest Contact Info) Description 09/07/2024 Transcribe Orders Virtual Department [address] [place] [address] Serafin Murray DO [address] [place] [address] Asymptomatic menopausal state (Primary Dx) Social History [...] EDT Appointment [facility], Bone Density - [address] [address] Serafin Murray DO [address] [place] [address] Scheduled Orders Name Type Priority Associated Diagnoses Orde r Schedule DXA Screening Imaging Routine Asymptomatic menopausal state Expected: 10/07/2024, Expires: 09/07/2025 documented as of this encounter Visit Diagnoses Diagnosis Asymptomatic menopausal state- Primary documented in this encounter Care Teams Tanker Serviceman Relationship Specialty Start Date End Date Callum Field MD [address] [place] [address] [email or web address] PCP - General Family Medicine 12/24/23 documented as of this encounter Additional Source Comments The information contained in this document represents components of the legal health record. It is not the complete legal health record.[facility]
--- OUTSIDE RECORDS SUMMARY | 2024-12-30 09:28 | XMS_ITS | Encounter Summary ---
Author Organization [facility] Address [address] [place] [address] Phone Care Team Providers Care Full Stack Java Developer Name Role Phone Callum Field MD Primary Care Provider Callum Field MD Primary Care Provider [phone] Callum Field MD Primary Care Provider [phone] Encounter Details Date Type Department Care Team (Late st Contact Info) Description 09/25/2022 Ancillary Orders Virtual Department [address] [place] [address] Mei Rodriguez MD [address] [place] [address] [email or web address] Osteopenia, unspecified location; Other specified disorders of [...] Info) Description 02/09/2025 3:45 PM EDT Appointment [facility], Bone Density - [facility] [address] [place] [address] Serafin Murray DO [address] [place] [address] documented as of this encounter Visit Diagnoses Diagnosis Osteopenia, unspecified location Other specified disorders of bone density and structure, unspecified site documented in this encounter Additional Health Concerns Infection Onset Date Last Indicated Resolved Time CoV-Risk 01/17/2024 01/17/2024 01/28/2024 1:22 AM EDT documented as of this encounter Care Teams Full Stack Java Developer Relationship Specialty Start Date End Date Callum Field MD PCP - General Family Medicine 09/29/19 12/27/22 Callum Field MD PCP - General Family Medicine 12/28/22 12/23/23 Callum Field MD [address] [place] [id number] PCP - General Family Medicine 12/24/23 documented as of this encounter Additional Source Comments The information contained in this document represents components of the legal health record. It is not the complete legal health record.[facility]
--- OUTSIDE RECORDS SUMMARY | 2024-12-30 09:28 | XMS_ITS | Encounter Summary ---
Author Organization [facility] Address [address] [place] [address] Phone Care Team Providers Care Chair Mender Name Role Phone Al Alcantara MD Primary Care Provider Al Alcantara MD Primary Care Provider [phone] Callum Field MD Primary Care Provider [phone] Callum Field MD Primary Care Provider Callum Field MD Primary Care Provider Encounter Details Date Type Department Care Team (Late st Contact Info) Description 03/09/[address] [facility] [address] [place] [address] Vinay Serrano MD [address] [place] [address] [id number] Drug therapy (Primary Dx) Social History Tobacco [...] Description 02/09/2025 3:45 PM EDT Appointment [facility], Bone [facility] [address] [place] [address] Serafin Murray DO [address] [place] [address] documented as of this encounter Procedures Procedure Name Priority Date/Time Associated Diagnosis Comments CBC AND DIFFERENTIAL Routine 03/09/2017 10:16 AM EST Drug therapy documented in this encounter Results * (ABNORMAL) CBC and differential (03/09/2017 10:16 AM EST) WBC 5.93 3.40 - 11.20 K/uL [facility] RBC 3.86 3.80 - 4.80 M/uL [facility] HGB 11.7(L) 12.0 - 15.0 g/dL [facility] HCT 34.8(L) 36.0 - 46.0 % [facility] PLT 238 130 - 400 K/uL [facility] MCV 90.2 79.0 - 98.0 fL [facility] MCH 30.3 27.0 - 34.8 pg [facility] MCHC 33.6 31.5 - 36.0 g/dL [facility] RDW 13.2 10.8 - 14.6 % [facility] MPV 10.2 9.4 - 12.4 fl [facility] NRBC 0.00 /100 WBCs [facility] ABSOLUTE NRBC 0.00 K/uL [facility] DIFF METHOD Auto [facility] NEUTS 54.0 45.30 - 77.70 % [facility] LYMPHS 30.5 12.30 - 39.70 % [facility] MONOS 8.6 4.10 - 12.80 % [facility] EOS 5.4 0 - 7.2 % [facility] BASOS 1.3 0 - 2.80 % [facility] Granulocytes, immature (%) 0.2 0.0 - 0.9 % [facility] ABSOLUTE NEUTS 3.20 1.40 - 7.70 K/uL [facility] ABSOLUTE LYMPHS 1.81 0.60 - 3.20 K/uL [facility] ABSOLUTE MONOS 0.51 0.11 - 0.59 K/uL [facility] ABSOLUTE EOS 0.32 0.01 - 0.50 K/uL [facility] ABSOLUTE BASOS 0.08 0.00 - 0.08 K/uL [facility] Granulocytes, immature 0.01 0.00 - 0.05 K/uL [facility] Blood 03/09/2017 10:1 6 AM EST 03/09/2017 10:18 AM EST Vinay Serrano MD LAB BLOOD ORDERABLES Final Result Performing Organization Address City/State/[facility] Co de Phone Number [facility] [address] [place] [address] documented in this encounter Visit Diagnoses Diagnosis Drug therapy- Primary Encounter for other specified aftercare documented in this encounter Additional Health Concerns Infection Onset Date Last Indicated Resolved Time CoV-Risk Comment:Neg covid 05/20/2022 05/21/2022 05/22/2022 6:[address] CoV-Risk 01/17/2024 01/17/2024 01/28/2024 1:22 AM EDT documented as of this encounter Care Teams Chair Mender Relationship Specialty Start Date End Date Al Alcantara MD [address] [place] [phone] [email or web address] - General 02/04/17 06/09/19 Al Alcantara MD [address] [place] [phone] [email or web address] PCP - General Family Medicine 06/10/19 09/28/19 Callum Field MD [address] [place] [address] [email or web address] PCP - General Family Medicine 09/29/19 12/27/22 Callum Field MD [address] [place] [address] [email or web address] PCP - General Family Medicine 12/28/22 12/23/23 Callum Field MD [address] [place] [address] [email or web address] PCP - General Family Medicine 12/24/23 documented as of this encounter Additional Source Comments The information contained in this document represents components of the legal health record. It is not the complete legal health record.[facility]
--- OUTSIDE RECORDS SUMMARY | 2024-12-30 09:28 | XMS_ITS | Encounter Summary ---
Author Organization [facility] Address [address] [place] [address] Phone Care Team Providers Care Service Delivery Consultant Name Role Phone Al Alcantara MD Primary Care Provider [phone] Al Alcantara MD Primary Care Provider [phone] Callum Field MD Primary Care Provider [phone] Callum Field MD Primary Care Provider [phone] Callum Field MD Primary Care Provider [phone] Encounter Details Date Type Department Care Team (Latest Contact Info) Description 05/01/2017 Transcribe Orders [facility] [address] [place] [address] Vinay Serrano MD [address] [place], [place] [id number] Subchronic schizophrenia (Primary Dx) Social History Tobacco [...] Info) Description 02/09/2025 3:45 PM EDT Appointment [facility] [address] [place] [address] Trevor DO Serafin [address] [place] [address] documented as of this encounter Procedures Procedure Name Priority Date/Time Associated Diagnosis Comments CBC AND DIFFERENTIAL Routine 05/01/2017 10:51 AM EST Subchronic schizophrenia documented in this encounter Results * (ABNORMAL) CBC and differential (05/01/2017 10:51 AM EST) WBC 6.68 3.40 - 11.20 K/uL [facility] RBC 3.53(L) 3.80 - 4.80 M/uL [facility] HGB 10.6(L) 12.0 - 15.0 g/dL [facility] HCT 33.0(L) 36.0 - 46.0 % [facility] PLT 351 130 - 400 K/uL [facility] MCV 93.5 79.0 - 98.0 fL [facility] MCH 30.0 27.0 - 34.8 pg [facility] MCHC 32.1 31.5 - 36.0 g/dL [facility] RDW 14.2 10.8 - 14.6 % [facility] MPV 10.0 9.4 - 12.4 [facility] NRBC 0.00 /100 WBCs [facility] ABSOLUTE NRBC 0.00 K/uL [facility] DIFF METHOD Auto [facility] NEUTS 64.6 45.30 - 77.70 % [facility] LYMPHS 20.7 12.30 - 39.70 % [facility] MONOS 9.1 4.10 - 12.80 % [facility] EOS 4.3 0 - 7.2 % [facility] BASOS 1.2 0 - 2.80 % [facility] Granulocytes, immature (%) 0.1 0.0 - 0.9 % [facility] ABSOLUTE NEUTS 4.31 1.40 - 7.70 K/uL [facility] ABSOLUTE LYMPHS 1.38 0.60 - 3.20 K/uL [facility] ABSOLUTE MONOS 0.61(H) 0.11 - 0.59 K/uL [facility] ABSOLUTE EOS 0.29 0.01 - 0.50 K/uL [facility] ABSOLUTE BASOS 0.08 0.00 - 0.08 K/uL [facility] Granulocytes, immature 0.01 0.00 - 0.05 K/uL [facility] Blood 05/01/2017 10:5 1 AM EST 05/01/2017 10:53 AM EST us Vinay Serrano MD LAB BLOOD ORDERABLES Final Result [facility] [address] [place] [address] documented in this encounter Visit Diagnoses Diagnosis Subchronic schizophrenia- Primary Unspecified schizophrenia, subchronic condition documented in this encounter Additional Health Concerns Infection Onset Date Last Indicated Resolved Time CoV-Risk Comment:Neg covid 05/20/2022 05/21/2022 05/22/2022 6:[address] CoV-Risk 01/17/2024 01/17/2024 01/28/2024 1:22 AM EDT documented as of this encounter Care Teams Service Delivery Consultant Relationship Specialty Start Date End Date Al Alcantara MD [address] [place] [phone] [email or web address] [email or web address] - General 02/04/17 06/09/19 Al Alcantara MD [address] [place] [address] [email or web address] PCP - General Family Medicine 06/10/19 09/28/19 Callum Field MD [address] [place] [address] [email or web address] PCP - General Family Medicine 09/29/19 12/27/22 Callum Field MD [address] [place] [address] [email or web address] PCP - General Family Medicine 12/28/22 12/23/23 Callum Field MD [address] [place] [address] [email or web address] PCP - General Family Medicine 12/24/23 documented as of this encounter Additional Source Comments The information contained in this document represents components of the legal health record. It is not the complete legal health record.[facility]
--- OUTSIDE RECORDS SUMMARY | 2024-12-30 09:28 | XMS_ITS | Encounter Summary ---
Author Organization [facility] Address [address] [place] [address] Phone Care Team Providers Care Paralegal Name Role Phone Al Alcantara MD Primary Care Provider [phone] Al Alcantara MD Primary Care Provider Callum Field MD Primary Care Provider [phone] Callum Field MD Primary Care Provider [phone] Callum Field MD Primary Care Provider [phone] Encounter Details Date Type Department Care Team (Latest Contact Info) Description 07/23/2017 Transcribe Orders [facility] [address] [place] [address] Vinay Serrano MD [address] [place], [place] [phone] Subchronic schizophrenia (Primary Dx) Social History Tobacco [...] Info) Description 02/09/2025 3:45 PM EDT Appointment [facility], [facility] [address] [place] [address] Murray, Serafin, [address] [place] [address] documented as of this encounter Results * (ABNORMAL) CBC and differential (07/23/2017 1:16 PM EDT) WBC 7.36 3.40 - 11.20 K/uL [facility] RBC 3.69(L) 3.80 - 4.80 M/uL [facility] HGB 11.3(L) 12.0 - 15.0 g/dL [facility] HCT 33.3(L) 36.0 - 46.0 % [facility] PLT 261 130 - 400 K/uL [facility] MCV 90.2 79.0 - 98.0 fL [facility] MCH 30.6 27.0 - 34.8 pg [facility] MCHC 33.9 31.5 - 36.0 g/dL [facility] RDW 13.4 10.8 - 14.6 % [facility] MPV 10.6 9.4 - 12.4 fl [facility] NRBC 0.00 /100 WBCs [facility] ABSOLUTE NRBC 0.00 K/uL [facility] DIFF METHOD Auto [facility] NEUTS 71.9 45.30 - 77.70 % [facility] LYMPHS 18.2 12.30 - 39.70 % [facility] MONOS 7.1 4.10 - 12.80 % [facility] EOS 1.8 0 - 7.2 % [facility] BASOS 0.7 0 - 2.80 % [facility] Granulocytes, immature (%) 0.3 0.0 - 0.9 % [facility] ABSOLUTE NEUTS 5.30 1.40 - 7.70 K/uL [facility] ABSOLUTE LYMPHS 1.34 0.60 - 3.20 K/uL [facility] ABSOLUTE MONOS 0.52 0.11 - 0.59 K/uL [facility] ABSOLUTE EOS 0.13 0.01 - 0.50 K/uL [facility] ABSOLUTE BASOS 0.05 0.00 - 0.08 K/uL [facility] Granulocytes, immature 0.02 0.00 - 0.05 K/uL [facility] Blood 07/23/2017 1:16 PM EDT 07/23/2017 1:18 PM EDT Vinay Serrano MD LAB BLOOD ORDERABLES Final Result [facility] [address] [place] [address] documented in this encounter Visit Diagnoses Diagnosis Subchronic schizophrenia- Primary Unspecified schizophrenia, subchronic condition documented in this encounter Additional Health Concerns Infection Onset Date Last Indicated Resolved Time CoV-Risk Comment:Neg covid 05/20/2022 05/21/2022 05/22/2022 6:[address] CoV-Risk 01/17/2024 01/17/2024 01/28/2024 1:22 AM EDT documented as of this encounter Care Teams Paralegal Relationship Specialty Start Date End Date Al Alcantara MD [address] [place] [phone] [email or web address] PCP - General 02/04/17 06/09/19 Al Alcantara MD [address] [place] [phone] [email or web address] PCP - General Family Medicine 06/10/19 09/28/19 Callum Field MD [address] [place] [address] [email or web address] PCP - General Family Medicine 09/29/19 12/27/22 Callum Field MD [address] [place] [phone] [email or web address] PCP - General Family Medicine 12/28/22 12/23/23 Callum Field MD [address] [place] [phone] [email or web address] PCP - General Family Medicine 12/24/23 documented as of this encounter Additional Source Comments The information contained in this document represents components of the legal health record. It is not the complete legal health record.[facility]
--- OUTSIDE RECORDS SUMMARY | 2024-12-30 09:28 | XMS_ITS | Encounter Summary ---
Author Organization [facility] Address [address] [place] [address] Phone Care Team Providers Care Harvest Manager Name Role Phone Callum Field MD Primary Care Provider [phone] Callum Field MD Primary Care Provider [phone] Callum Field MD Primary Care Provider [phone] Encounter Details Date Type Department Care Team (Late st Contact Info) Description 09/25/2022 Transcribe Orders Virtual Department [address] [place] [address] Mei Rodriguez MD [address] [place] [address] [email or web address] Osteopenia, unspecified location Social History Tobacco Use [...] 02/09/2025 3:45 PM EDT Appointment [facility], Bone Density - [facility] [address] [place] [address] Serafin Murray DO [address] [place] [address] documented as of this encounter Visit Diagnoses Diagnosis Osteopenia, unspecified location documented in this encounter Additional Health Concerns Infection Onset Date Last Indicated Resolved Time CoV-Risk 01/17/2024 01/17/2024 01/28/2024 1:22 AM EDT documented as of this encounter Care Teams Harvest Manager Relationship Specialty Start Date End Date Callum Field MD PCP - General Family Medicine 09/29/19 12/27/22 Callum Field MD PCP - General Family Medicine 12/28/22 12/23/23 Callum Field MD [address] [place] [address] PCP - General Family Medicine 12/24/23 documented as of this encounter Additional Source Comments The information contained in this document represents components of the legal health record. It is not the complete legal health record.[facility]
--- OUTSIDE RECORDS SUMMARY | 2024-12-30 09:28 | XMS_ITS | Encounter Summary ---
Author Organization [facility] Address [address] [place] [address] Phone Care Team Providers Care Sports Photographer Name Role Phone Al Alcantara MD Primary Care Provider Al Alcantara MD Primary Care Provider Callum Field MD Primary Care Provider Callum Field MD Primary Care Provider [phone] Callum Field MD Primary Care Provider [phone] Encounter Details Date Type Department Care Team (Late st Contact Info) Description 03/05/2018 Procedure Pass [facility] Admitting Dept Virtual Department [address] [place] [address] Social History Tobacco Use Types Packs/Day Years [...] 3:45 PM EDT Appointment [facility] [place] - [address] [address] Serafin Murray DO [address] [place] [address] documented as of this encounter Visit Diagnoses Not on filedocumented in this encounter Additional Health Concerns Infection Onset Date Last Indicated Resolved Time CoV-Risk Comment:Neg covid 05/20/2022 05/21/2022 05/22/2022 6:[address] CoV-Risk 01/17/2024 01/17/2024 01/28/2024 1:22 AM EDT documented as of this encounter Care Teams Sports Photographer Relationship Specialty Start Date End Date Al Alcantara MD [address] [place] [address] [email or web address] [email or web address] - General 02/04/17 06/09/19 Al Alcantara MD [address] [place] [address] [email or web address] PCP - General Family Medicine 06/10/19 09/28/19 Callum Field MD [address] [place] [address] [email or web address] PCP - General Family Medicine 09/29/19 12/27/22 Callum Field MD [address] [place] [address] [email or web address] PCP - General Family Medicine 12/28/22 12/23/23 Callum Field MD [address] [place] [address] [email or web address] PCP - General Family Medicine 12/24/23 documented as of this encounter Additional Source Comments The information contained in this document represents components of the legal health record. It is not the complete legal health record.[facility]
--- OUTSIDE RECORDS SUMMARY | 2024-12-30 09:28 | XMS_ITS | Encounter Summary ---
Author Organization [facility] Address [address] [address] Phone Care Team Providers Care Seam Press Operator Name Role Phone Al Alcantara MD Primary Care Provider Al Alcantara MD Primary Care Provider Callum Field MD Primary Care Provider [phone] Callum Field MD Primary Care Provider Callum Field MD Primary Care Provider [phone] Encounter Details Date Type Department Care Team (Latest Contact Info) Description 05/28/2017 Transcribe Orders [facility] Laboratory [address] [place] [address] Vinay Serrano MD [address] [place], [place] [id number] Chronic schizophrenia (Primary Dx) Social History Tobacco [...] Info) Description 02/09/2025 3:45 PM EDT Appointment [facility], [facility] [address] [place] [address] Murray, DO Serafin [address] [place] [address] documented as of this encounter Results * (ABNORMAL) CBC and differential (05/28/2017 3:23 PM EST) WBC 7.56 3.40 - 11.20 K/uL [facility] RBC 3.57(L) 3.80 - 4.80 M/uL [facility] HGB 10.8(L) 12.0 - 15.0 g/dL [facility] HCT 33.1(L) 36.0 - 46.0 % [facility] PLT 258 130 - 400 K/uL [facility] MCV 92.7 79.0 - 98.0 fL [facility] MCH 30.3 27.0 - 34.8 pg [facility] MCHC 32.6 31.5 - 36.0 g/dL [facility] RDW 13.9 10.8 - 14.6 % [facility] MPV 10.2 9.4 - 12.4 fl [facility] NRBC 0.00 /100 WBCs [facility] ABSOLUTE NRBC 0.00 K/uL [facility] DIFF METHOD Auto [facility] NEUTS 71.5 45.30 - 77.70 % [facility] LYMPHS 19.8 12.30 - 39.70 % [facility] MONOS 6.5 4.10 - 12.80 % [facility] EOS 1.5 0 - 7.2 % [facility] BASOS 0.4 0 - 2.80 % [facility] Granulocytes, immature (%) 0.3 0.0 - 0.9 % [facility] ABSOLUTE NEUTS 5.41 1.40 - 7.70 K/uL [facility] ABSOLUTE LYMPHS 1.50 0.60 - 3.20 K/uL [facility] ABSOLUTE MONOS 0.49 0.11 - 0.59 K/uL [facility] ABSOLUTE EOS 0.11 0.01 - 0.50 K/uL [facility] ABSOLUTE BASOS 0.03 0.00 - 0.08 K/uL [facility] Granulocytes, immature 0.02 0.00 - 0.05 K/uL [facility] Blood 05/28/2017 3:23 PM EST 05/28/2017 3:25 PM EST Vinay Serrano MD LAB BLOOD ORDERABLES Final Result [facility] [address] [place] [address] documented in this encounter Visit Diagnoses Diagnosis Chronic schizophrenia- Primary Unspecified schizophrenia, chronic condition documented in this encounter Additional Health Concerns Infection Onset Date Last Indicated Resolved Time CoV-Risk Comment:Neg covid 05/20/2022 05/21/2022 05/22/2022 6:[address] CoV-Risk 01/17/2024 01/17/2024 01/28/2024 1:22 AM EDT documented as of this encounter Care Teams Seam Press Operator Relationship Specialty Start Date End Date Al Alcantara MD [address] [place] [address] [email or web address] PCP - General 02/04/17 06/09/19 Al Alcantara MD [address] [place] [phone] [email or web address] PCP - General Family Medicine 06/10/19 09/28/19 Callum Field MD [address] [place] [address] [email or web address] PCP - General Family Medicine 09/29/19 12/27/22 Callum Field MD [address] [place] [address] [email or web address] PCP - General Family Medicine 12/28/22 12/23/23 Callum Field MD [address] [place] [address] [email or web address] PCP - General Family Medicine 12/24/23 documented as of this encounter Additional Source Comments The information contained in this document represents components of the legal health record. It is not the complete legal health record.[facility]
--- OUTSIDE RECORDS SUMMARY | 2024-12-30 09:28 | XMS_ITS | Encounter Summary ---
Author Organization [facility] Address [address] [place] [address] Phone Care Team Providers Care Claims Associate Name Role Phone Al Alcantara MD Primary Care Provider Al Alcantara MD Primary Care Provider Callum Field MD Primary Care Provider [phone] Callum Field MD Primary Care Provider [phone] Callum Field MD Primary Care Provider [phone] Encounter Details Date Type Department Care Team (Latest Contact Info) Description 06/25/2017 Transcribe Orders [facility] Laboratory 30 [place] [address] Vinay Serrano MD 50 [place], [place] [phone] Subchronic schizophrenia (Primary Dx) Social History Tobacco [...] Info) Description 02/09/2025 3:45 PM EDT Appointment [facility], [facility] 30 [place] [address] MurraySerafin DO [address] [place] [address] documented as of this encounter Results * (ABNORMAL) CBC and differential (06/25/2017 12:05 PM EST) WBC 7.99 3.40 - 11.20 K/uL [facility] RBC 3.48(L) 3.80 - 4.80 M/uL [facility] HGB 10.8(L) 12.0 - 15.0 g/dL [facility] HCT 31.6(L) 36.0 - 46.0 % [facility] PLT 247 130 - 400 K/uL [facility] MCV 90.8 79.0 - 98.0 fL [facility] MCH 31.0 27.0 - 34.8 pg [facility] MCHC 34.2 31.5 - 36.0 g/dL [facility] RDW 14.1 10.8 - 14.6 % [facility] MPV 10.3 9.4 - 12.4 fl [facility] NRBC 0.00 /100 WBCs [facility] ABSOLUTE NRBC 0.00 K/uL [facility] DIFF METHOD Auto [facility] NEUTS 70.6 45.30 - 77.70 % [facility] LYMPHS 18.9 12.30 - 39.70 % [facility] MONOS 6.9 4.10 - 12.80 % [facility] EOS 2.5 0 - 7.2 % [facility] BASOS 0.8 0 - 2.80 % [facility] Granulocytes, immature (%) 0.3 0.0 - 0.9 % [facility] ABSOLUTE NEUTS 5.65 1.40 - 7.70 K/uL [facility] ABSOLUTE LYMPHS 1.51 0.60 - 3.20 K/uL [facility] ABSOLUTE MONOS 0.55 0.11 - 0.59 K/uL [facility] ABSOLUTE EOS 0.20 0.01 - 0.50 K/uL [facility] ABSOLUTE BASOS 0.06 0.00 - 0.08 K/uL [facility] Granulocytes, immature 0.02 0.00 - 0.05 K/uL [facility] Blood 06/25/2017 12:0 5 PM EST 06/25/2017 12:08 PM EST Vinay Serrano MD LAB BLOOD ORDERABLES Final Result [facility] 30 [place] [address] documented in this encounter Visit Diagnoses Diagnosis Subchronic schizophrenia- Primary Unspecified schizophrenia, subchronic condition documented in this encounter Additional Health Concerns Infection Onset Date Last Indicated Resolved Time CoV-Risk Comment:Neg covid 05/20/2022 05/21/2022 05/22/2022 6:[address] CoV-Risk 01/17/2024 01/17/2024 01/28/2024 1:22 AM EDT documented as of this encounter Care Teams Claims Associate Relationship Specialty Start Date End Date Al Alcantara MD [address] [place] [address] [email or web address] PCP - General 02/04/17 06/09/19 Al Alcantara MD [address] [place] [address] [email or web address] PCP - General Family Medicine 06/10/19 09/28/19 Callum Field MD [address] [place] [address] [email or web address] PCP - General Family Medicine 09/29/19 12/27/22 Callum Field MD [address] [place] [phone] PCP - General Family Medicine 12/28/22 12/23/23 Callum Field MD [address] [place] [address] [email or web address] PCP - General Family Medicine 12/24/23 documented as of this encounter Additional Source Comments The information contained in this document represents components of the legal health record. It is not the complete legal health record.[facility]
--- OUTSIDE RECORDS SUMMARY | 2024-12-30 09:28 | XMS_ITS | Encounter Summary ---
Author Organization [facility] Address [address] [place] [address] Phone Care Team Providers Care Electricians Top Helper Name Role Phone Al Alcantara MD Primary Care Provider [phone] Al Alcantara MD Primary Care Provider Callum Field MD Primary Care Provider [phone] Callum Field MD Primary Care Provider Callum Field MD Primary Care Provider [phone] Encounter Details Date Type Department Care Team (Latest Contact Info) Description 04/02/2017 Transcribe Orders [facility] Laboratory [address] [place] [address] Vinay Serrano MD [address] [place] [address] [phone] Subchronic schizophrenia (Primary Dx) Social History Tobacco [...] Info) Description 02/09/2025 3:45 PM EDT Appointment [facility] - [facility] [address] [place] [address] Serafin Murray DO [address] [place] [address] documented as of this encounter Procedures Procedure Name Priority Date/Time Associated Diagnosis Comments CBC AND DIFFERENTIAL Routine 04/02/2017 2:23 PM EST Subchronic schizophrenia documented in this encounter Results * (ABNORMAL) CBC and differential (04/02/2017 2:23 PM EST) WBC 7.60 3.40 - 11.20 K/uL [facility] RBC 3.80 3.80 - 4.80 M/uL [facility] HGB 11.4(L) 12.0 - 15.0 g/dL [facility] HCT 34.4(L) 36.0 - 46.0 % [facility] PLT 240 130 - 400 K/uL [facility] MCV 90.5 79.0 - 98.0 fL [facility] MCH 30.0 27.0 - 34.8 pg [facility] MCHC 33.1 31.5 - 36.0 g/dL [facility] RDW 13.3 10.8 - 14.6 % [facility] MPV 10.7 9.4 - 12.4 fl [facility] NRBC 0.00 /100 WBCs [facility] ABSOLUTE NRBC 0.00 K/uL [facility] DIFF METHOD Auto [facility] NEUTS 63.0 45.30 - 77.70 % [facility] LYMPHS 22.0 12.30 - 39.70 % [facility] MONOS 9.2 4.10 - 12.80 % [facility] EOS 4.7 0 - 7.2 % [facility] BASOS 0.8 0 - 2.80 % [facility] Granulocytes, immature (%) 0.3 0.0 - 0.9 % [facility] ABSOLUTE NEUTS 4.79 1.40 - 7.70 K/uL [facility] ABSOLUTE LYMPHS 1.67 0.60 - 3.20 K/uL [facility] ABSOLUTE MONOS 0.70(H) 0.11 - 0.59 K/uL [facility] ABSOLUTE EOS 0.36 0.01 - 0.50 K/uL [facility] ABSOLUTE BASOS 0.06 0.00 - 0.08 K/uL [facility] Granulocytes, immature 0.02 0.00 - 0.05 K/uL [facility] Blood 04/02/2017 2:23 PM EST 04/02/2017 2:25 PM EST Vinay Serrano MD LAB BLOOD ORDERABLES Final Result Performing Organization Address City/State/[facility] Co de Phone Number [facility] [address] [place] [address] documented in this encounter Visit Diagnoses Diagnosis Subchronic schizophrenia- Primary Unspecified schizophrenia, subchronic condition documented in this encounter Additional Health Concerns Infection Onset Date Last Indicated Resolved Time CoV-Risk Comment:Neg covid 05/20/2022 05/21/2022 05/22/2022 6:[address] CoV-Risk 01/17/2024 01/17/2024 01/28/2024 1:22 AM EDT documented as of this encounter Care Teams Electricians Top Helper Relationship Specialty Start Date End Date Al Alcantara MD [address] [place] [address] [email or web address] PCP - General 02/04/17 06/09/19 Al Alcantara MD [address] [place] [address] [email or web address] PCP - General Family Medicine 06/10/19 09/28/19 Callum Field MD [address] [place] [address] [email or web address] PCP - General Family Medicine 09/29/19 12/27/22 Callum Field MD [address] [place] [address] [email or web address] PCP - General Family Medicine 12/28/22 12/23/23 Callum Field MD [address] [place] [address] [email or web address] PCP - General Family Medicine 12/24/23 documented as of this encounter Additional Source Comments The information contained in this document represents components of the legal health record. It is not the complete legal health record.[facility]
--- OUTSIDE RECORDS SUMMARY | 2024-12-30 09:28 | XMS_ITS | Encounter Summary ---
Author Organization [facility] Address [address] [facility] [address] [place] [address] Phone Care Team Providers Care Telephoner Name Role Phone Callum Field MD Primary Care Provider [phone] Callum Field MD Primary Care Provider [phone] Callum Field MD Primary Care Provider [phone] Encounter Details Date Type Department Care Team (Late st Contact Info) Description 01/19/2022 Procedure Pass [facility], Ct Scan - [facility] [address] [place], [place] [phone] Social History Tobacco Use Types Packs/Day Years [...] 12:59 PM EDT Christy Duron RN * [place] Suicide Severity Rating Scale (Screener/Recent Self-Report) Question Answer Date of Assessment Author 1. Wish to be (Past 1 Month) No 01/19/2022 12:59 PM EDT Christy Duron RN 2. Non-Specific Active Suicidal Thoughts (Past 1 Month) No 01/19/2022 12:59 PM EDT Christy Duron RN 6. Suicidal Behavior (Lifetime) No 01/19/2022 12:59 PM EDT hCristy Duron RN documented as of this encounter Plan of Treatment Upcoming Encounters Date Type Department Care Team (Late st Contact Info) Description 02/09/2025 3:45 PM EDT Appointment [facility], Bone [facility] - [facility] [address] [place] [address] Serafin Murray DO [address] [place] [address] documented as of this encounter Visit Diagnoses Not on filedocumented in this encounter Additional Health Concerns Infection Onset Date Last Indicated Resolved Time CoV-Risk Comment:Neg covid 05/20/2022 05/21/2022 05/22/2022 6:[address] CoV-Risk 01/17/2024 01/17/2024 01/28/2024 1:22 AM EDT documented as of this encounter Care Teams Telephoner Relationship Specialty Start Date End Date Callum Field MD [email or web address] PCP - General Family Medicine 09/29/19 12/27/22 Callum Field MD PCP - General Family Medicine 12/28/22 12/23/23 Callum Field MD [address] [place] [address] [email or web address] PCP - General Family Medicine 12/24/23 documented as of this encounter Additional Source Comments The information contained in this document represents components of the legal health record. It is not the complete legal health record.[facility]
--- OUTSIDE RECORDS SUMMARY | 2024-12-30 09:29 | XMS_ITS | Encounter Summary ---
Author Organization [facility] Address [address] [place] [address] Phone Care Team Providers Care Special Distribution Clerk Name Role Phone Al Alcantara MD Primary Care Provider [phone] Al Alcantara MD Primary Care Provider [phone] Callum Field MD Primary Care Provider [phone] Callum Field MD Primary Care Provider [phone] Callum Field MD Primary Care Provider [phone] Encounter Details Date Type Department Care Team (Late st Contact Info) Description 01/08/2018 Transcribe Orders [facility] [address] [place] [address] Vinay Serrano MD [address] [place], [place] [phone] Social History Tobacco Use Types Packs/Day Years [...] PM EDT Appointment [facility], [facility] [address] [facility] [place] [address] Serafin Murray DO [address] [place] [address] documented as of this encounter Visit Diagnoses Not on filedocumented in this encounter Additional Health Concerns Infection Onset Date Last Indicated Resolved Time CoV-Risk Comment:Neg covid 05/20/2022 05/21/2022 05/22/2022 6:[address] CoV-Risk 01/17/2024 01/17/2024 01/28/2024 1:22 AM EDT documented as of this encounter Care Teams Special Distribution Clerk Relationship Specialty Start Date End Date Al Alcantara MD [address] [place] [address] [email or web address] PCP - General 02/04/17 06/09/19 Al Alcantara MD [address] [place] [address] [email or web address] PCP - General Family Medicine 06/10/19 09/28/19 Callum Field MD [address] [place] [phone] PCP - General Family Medicine 09/29/19 12/27/22 Callum Field MD [address] [place] [phone] PCP - General Family Medicine 12/28/22 12/23/23 Callum Field MD [address] [place] [phone] PCP - General Family Medicine 12/24/23 documented as of this encounter Additional Source Comments The information contained in this document represents components of the legal health record. It is not the complete legal health record.[facility]
[2025-01-06] VITALS (8 sets, daily range): BP systolic 118–152; BP diastolic 81–88; PULSE 73–81; RESP 12–17; TEMP 36.1–36.4; O2SAT 93–97; BMI 30.7
--- NOTE | 2025-01-06 06:49 | MHC.SHP ---
Pre-Procedural Eval Section A - 24 Hr Update-Section A only Date of Service: 01/06/25 Section B - Complete if H&P > 30 days Chief Complaint: depression Allergies: Allergies Allergy/AdvReac Type Severity Reaction Status Date / Time trifluoperazine (From Allergy Unknown Verified 09/25/24 09:52 Stelazine) Review of Systems Sugical H&P ROS: Negative: Constitution, Neurological and Psychiatric Exam Surgical H&P Exam: Normal: HEENT and Normal: Neurological Plan Diagnosis/Plan: Unchanged I have reviewed the history and physical and performed a pertinent physical examination on my patient. No changes have occurred unless specified. Time Spent With Patient Time: Total time managing care of this patient today __35__ minutes.
--- NOTE | 2025-01-06 06:53 | P.CONAN_ITS ---
[facility] Active Problems Active Problems: All Active Problems Fracture of right inferior pubic ramus (Acute) Fracture of superior ramus of right pubis (Acute) Arachnoid cyst (Acute) Diverticulosis (Chronic) Schizophrenia (Acute) Past Medical History Medical History Diverticulosis Schizophrenia CKD (chronic kidney disease) Hyperlipidemia Type 2 diabetes mellitus Hypothyroidism HTN (hypertension) GERD (gastroesophageal reflux disease) Mood disorder Family History Family history of problems with anesthesia: No Surgical History History of Problems with Anesthesia: No Social History Social History Household Members: None Household Members Other:: Lives at [facility] Housing: Assisted Living Facility Do you presently have visiting nurse or other home services: Yes Alcohol intake: current Alcohol intake frequency: does not drink Patient Tobacco Use Status: Never used Tobacco Tobacco use type: Cigarette Cigarette Packs Per Day: 3 Cigarettes Per Day: 60.0 Years Smoked: 16 Second Hand Smoke Exposure: No Advance Directives: No Advance Directives Information Provided: Yes service: No Current occupational status: retired Sexual orientation: Straight/Heterosexual Meds Allergies Allergy/AdvReac Type Severity Reaction Status Date / Time trifluoperazine (From Allergy Unknown Verified 09/25/24 09:52 Stelazine) Active Medications: Current Medications Lactated Ringer's (Lr) 1,000 mls @ 50 mls/hr IVCONT .Q20H [facility] Home Medications ?Medication ?Instructions ?Recorded ?Confirmed ?Last Taken ?Type acetaminophen 325 mg tablet 650 mg PO Q6H PRN pain/fev er 06/22/24 11/25/24 Unknown History hydroxyzine HCl 25 mg tablet 25 mg PO Q6H PRN Anxiety 06/22/24 11/25/24 Unknown History polyethylene glycol 3350 17 gram 17 g PO BEDTIME 06/2211/25/24 06/21/24 20:00 History oral powder packet polyethylene glycol 3350 17 gram 17 g PO DAILY PRN Con stipation 06/22/24 11/25/24 Unknown History oral powder packet sennosides 8.6 mg tablet (Senna 8.6 mg PO BEDTIME 07/1411/25/24 06/21/24 20:00 History Lax) sennosides 8.6 mg tablet (senna) 8.6 mg PO DAILY PRN C onstipation 06/22/24 11/25/24 Unknown History trazodone 50 mg tablet 50 mg PO BEDTIME 06/22/2406/21/24 20:00 History trazodone 50 mg tablet 50 mg PO BEDTIME PRN Insomni a 06/22/24 11/25/24 Unknown History bisacodyl 10 mg rectal suppository 10 mg MO DAILY PRN Constipation 07/03/24 11/25/24 Unknown History (Dulcolax (bisacodyl)) magnesium hydroxide 400 mg/5 mL 5 ml PO DAILY PRN Cons tipation 07/03/24 11/25/24 Unknown History oral suspension (Milk of Magnesia) sennosides 8.6 mg tablet (Senna 8.6 mg PO BEDTIME 06/2011/25/24 Unknown History Lax) sodium phosphates 19 gram-7 118 ml MO DAILY PRN Dehydr ation 07/03/24 11/25/24 Unknown History gram/118 mL enema (Fleet Enema) cephalexin 500 mg capsule 500 mg PO QID 08/13/2411/25 Unknown History Exam Height,Weight and Vital Signs: Height 5 ft 6 in Weight 86.183 kg Last Vital Signs Temp 97.6 F 01/06/25 06:31 Pulse 81 01/06/25 06:31 Resp 14 01/06/25 06:31 BP 118/81 01/06/25 06:31 Pulse Ox 93 01/06/25 06:31 O2 Del Method Room Air 01/06/25 06:31 Airway Mallampati Class: II TM Dist: >3cm Neck ROM: Full Partial: Upper Heart: rrr Lungs: cta Assessment and Plan Assessment Anesthesia Assessment: Anesthesia Plan Discussed and Chart Reviewed Final Anesthetic Review Family History of Problems with Anesthesia: No History of Problems with Anesthesia: No NPO: Yes ASA Class: III Final Preanesthetic Review: No Changes in Pt Med Stat, Meds/Allgs Chart Reviewed and Consent Obtained/Reviewed Patient Risk: Intermediate Procedure Risk: Intermediate Anesthetic Plan Anesthetic Plan: GA Disposition: Standard PACU
--- NOTE | 2025-01-06 07:31 | HO.ECTPROC ---
ECT Procedure Note Diagnosis/Treatment Date of Service: 01/06/25 Diagnosis: Schizoaffective Disorder Previous ECT Date: 12/30/24 Current Treatment Number: Other (20) Treatment: Maintenance Interval Clinical Notes: remains well-treated in outpt setting Time: Total time managing care of this patient today __35__ minutes. ECT Settings Device: THYMATRON DGx Electrode Placement: Bifrontal Program/Pulse Width: 0.25 Energy Percent: 100 Seizure Duration By EEG (in seconds): 17 Medications Administration General Anesthetic: Etomidate (12) Muscle Relaxant: Succinylcholine (80) Ancillary Medications Anti-emetics: Zofran - Pre ECT Miscillaneous Medications: Propofol (30) Airway Management Airway Management: Bag Mask Ventilation Treatment Recommendations Notes: unclear if intention of jairo to increase program to 0.50; jairo to review for next treatment. pt reports taking lamictal 25 TID. seizure 17 seconds today. RTC 1 week. Pt Tolerated Procedure w/o Issue: Yes
== END 2025-01-06 08:56 | disposition home or self-care (01) ==
PROVIDERS: PCP Internal Medicine; Visit Provider Psychiatry & Neurology Psychiatry
PROC: (CPT 90870; principal; 2025-01-06 07:30)
DX: F25.8 Other schizoaffective disorders (principal); I12.9 Hypertensive chronic kidney disease with stage 1 through stage 4 chronic kidney disease, or unspecified chronic kidney disease; N18.30 Chronic kidney disease, stage 3 unspecified; R73.03 Prediabetes; D64.9 Anemia, unspecified; E78.2 Mixed hyperlipidemia; E03.9 Hypothyroidism, unspecified; G89.29 Other chronic pain; M54.50 Low back pain, unspecified; Z79.899 Other long term (current) drug therapy; Z88.8 Allergy status to other drugs, medicaments and biological substances
CPT/HCPCS: 90870; J0330; J2704

== ENCOUNTER → 2025-01-06 05:46 | Outpatient (BNV) | payer MEDICARE, MEDICAID, SELFPAY | PROVIDERS: PCP Internal Medicine; Visit Provider Psychiatry & Neurology Psychiatry | DX: F33.2 Major depressive disorder, recurrent severe without psychotic features (principal) | CPT/HCPCS: 90870 ==

== ENCOUNTER 2025-01-13 05:54 | Day surgery (SDC) | payer MEDICARE, MEDICAID, SELFPAY ==
--- OUTSIDE RECORDS SUMMARY | 2025-01-06 10:02 | XMS_ITS | Encounter Summary ---
Author Organization [facility] Address [address] [place] [address] Phone Care Team Providers Care Marble Finisher Name Role Phone Callum Field MD Primary Care Provider [phone] Encounter Details Date Type Department Care Team (Latest Contact Info) Description 09/07/2024 Transcribe Orders Virtual Department [address] [place] [address] Serafin Murray DO [address] [place] [address] Asymptomatic menopausal state (Primary Dx) Social History Tobacco Use Types Packs/Day Years Used Date Smoking Tobacco: Former Cigarettes Q uit: 1999 Smokeless Tobacco: Never Alcohol Use Standard Drinks/Week Comments No 0 (1 standard drink = 0.6 oz pur e alcohol) Education Answer Date Recorded Are you interested in more education? Not on osfi e 08/17/2022 Are you concerned about learning? [...] 3:45 PM EDT Appointment [facility], [facility] Density - [address] [address] Serafin Murray DO [address] [place] [address] Scheduled Orders Name Type Priority Associated Diagnoses Orde r Schedule DXA Screening Imaging Routine Asymptomatic menopausal state Expected: 10/07/2024, Expires: 09/07/2025 documented as of this encounter Visit Diagnoses Diagnosis Asymptomatic menopausal state- Primary documented in this encounter Care Teams Marble Finisher Relationship Specialty Start Date End Date Callum Field MD [address] [place] [phone] [email or web address] PCP - General Family Medicine 12/24/23 documented as of this encounter Additional Source Comments The information contained in this document represents components of the legal health record. It is not the complete legal health record.[facility]
--- OUTSIDE RECORDS SUMMARY | 2025-01-06 10:02 | XMS_ITS | Encounter Summary ---
Author Organization [facility] Address [address] [place] [address] Phone Care Team Providers Care Microfabrication Engineer Manager Name Role Phone Al Alcantara MD Primary Care Provider Al Alcantara MD Primary Care Provider Callum Field MD Primary Care Provider [phone] Callum Field MD Primary Care Provider [phone] Callum Field MD Primary Care Provider [phone] Encounter Details Date Type Department Care Team (Latest Contact Info) Description 08/21/2017 Transcribe Orders [facility] Laboratory 30 [place] [address] Vinay Serrano MD 50 [place], [place] [phone] Subchronic schizophrenia (Primary Dx) Social History Tobacco [...] PM EDT Appointment [facility], [facility] [address] [place] [address] Serafin Murray DO [address] [place] [address] documented as of this encounter Visit Diagnoses Diagnosis Subchronic schizophrenia- Primary Unspecified schizophrenia, subchronic condition documented in this encounter Additional Health Concerns Infection Onset Date Last Indicated Resolved Time CoV-Risk Comment:Neg covid 05/20/2022 05/21/2022 05/22/2022 6:[address] CoV-Risk 01/17/2024 01/17/2024 01/28/2024 1:22 AM EDT documented as of this encounter Care Teams Microfabrication Engineer Manager Relationship Specialty Start Date End Date Al Alcantara MD [address] [place] [address] [email or web address] PCP - General 02/04/17 06/09/19 Al Alcantara MD [address] [place] [address] [email or web address] PCP - General Family Medicine 06/10/19 09/28/19 Callum Field MD [address] [place] [phone] PCP - General Family Medicine 09/29/19 12/27/22 Callum Field MD [address] [place] [address] [email or web address] PCP - General Family Medicine 12/28/22 12/23/23 Callum Field MD [address] [place] [phone] PCP - General Family Medicine 12/24/23 documented as of this encounter Additional Source Comments The information contained in this document represents components of the legal health record. It is not the complete legal health record.[facility]
--- OUTSIDE RECORDS SUMMARY | 2025-01-06 10:02 | XMS_ITS | Encounter Summary ---
Author Organization [facility] Address [address] [place] [address] Phone Care Team Providers Care Slot Attendant Name Role Phone Al Alcantara MD Primary Care Provider Al Alcantara MD Primary Care Provider Callum Field MD Primary Care Provider [phone] Callum Field MD Primary Care Provider Callum Field MD Primary Care Provider [phone] Encounter Details Date Type Department Care Team (Latest Contact Info) Description 02/20/2017 Transcribe Orders [facility] [address] [place] [address] Vinay Serrano MD [address] [place], [place] [phone] Subchronic schizophrenia (Primary Dx) Social History Tobacco [...] Info) Description 02/09/2025 3:45 PM EDT Appointment [facility], Bone [facility] [address] [place] [address] Serafin Murray DO 70 [place] [address] documented as of this encounter Procedures Procedure Name Priority Date/Time Associated Diagnosis Comments CBC AND DIFFERENTIAL Routine 02/20/2017 11:31 AM EDT Subchronic schizophrenia documented in this encounter Results * (ABNORMAL) CBC and differential (02/20/2017 11:31 AM EDT) WBC 5.82 3.40 - 11.20 K/uL [facility] RBC 4.00 3.80 - 4.80 M/uL [facility] HGB 12.0 12.0 - 15.0 g/dL [facility] HCT 36.0 36.0 - 46.0 % [facility] PLT 218 130 - 400 K/uL [facility] MCV 90.0 79.0 - 98.0 fL [facility] MCH 30.0 27.0 - 34.8 pg [facility] MCHC 33.3 31.5 - 36.0 g/dL [facility] RDW 13.2 10.8 - 14.6 % [facility] MPV 10.7 9.4 - 12.4 fl [facility] NRBC 0.00 /100 WBCs [facility] ABSOLUTE NRBC 0.00 K/uL [facility] DIFF METHOD Auto [facility] NEUTS 52.6 45.30 - 77.70 % [facility] LYMPHS 29.9 12.30 - 39.70 % [facility] MONOS 8.1 4.10 - 12.80 % [facility] EOS 8.4(H) 0 - 7.2 % [facility] BASOS 0.7 0 - 2.80 % [facility] Granulocytes, immature (%) 0.3 0.0 - 0.9 % [facility] ABSOLUTE NEUTS 3.06 1.40 - 7.70 K/uL [facility] ABSOLUTE LYMPHS 1.74 0.60 - 3.20 K/uL [facility] ABSOLUTE MONOS 0.47 0.11 - 0.59 K/uL [facility] ABSOLUTE EOS 0.49 0.01 - 0.50 K/uL [facility] ABSOLUTE BASOS 0.04 0.00 - 0.08 K/uL [facility] Granulocytes, immature 0.02 0.00 - 0.05 K/uL [facility] Blood 02/20/2017 11:3 1 AM EDT 02/20/2017 11:34 AM EDT Vinay Serrano MD LAB BLOOD ORDERABLES Final Result Performing Organization Address City/State/[facility] Co de Phone Number [facility] [address] [place] [address] documented in this encounter Visit Diagnoses Diagnosis Subchronic schizophrenia- Primary Unspecified schizophrenia, subchronic condition documented in this encounter Additional Health Concerns Infection Onset Date Last Indicated Resolved Time CoV-Risk Comment:Neg covid 05/20/2022 05/21/2022 05/22/2022 6:[address] CoV-Risk 01/17/2024 01/17/2024 01/28/2024 1:22 AM EDT documented as of this encounter Care Teams Slot Attendant Relationship Specialty Start Date End Date Al Alcantara MD [address] [place] [phone] [email or web address] PCP - General 02/04/17 06/09/19 Al Alcantara MD [address] [place] [address] [email or web address] PCP - General Family Medicine 06/10/19 09/28/19 Callum Field MD [address] [place] [phone] [email or web address] PCP - General Family Medicine 09/29/19 12/27/22 Callum Field MD [address] [place] [address] [email or web address] PCP - General Family Medicine 12/28/22 12/23/23 Callum Field MD [address] [place] [address] [email or web address] PCP - General Family Medicine 12/24/23 documented as of this encounter Additional Source Comments The information contained in this document represents components of the legal health record. It is not the complete legal health record.[facility]
--- OUTSIDE RECORDS SUMMARY | 2025-01-06 10:02 | XMS_ITS | Encounter Summary ---
Author Organization [facility] Address [address] [place] [address] Phone Care Team Providers Care Associate Director Of Development Name Role Phone Callum Field MD Primary Care Provider [phone] Callum Field MD Primary Care Provider [phone] Callum Field MD Primary Care Provider Encounter Details Date Type Department Care Team (Late st Contact Info) Description 05/20/2022 Procedure Pass [facility], Ct Scan - [facility] [address] [place], [place] [phone] Social History Tobacco Use Types Packs/Day Years [...] 05/21/2022 5:07 PM Rena Rodriguez RN * [place] Suicide Severity Rating Scale (Screener/Recent Self-Report) Question Answer Date of Assessment Author 1. Wish to be (Past 1 Month) No 023 5:07 PM Rnea Rodriguez RN 2. Non-Specific Active Suici nicola Thoughts (Past 1 Month) No 05/21/2022 5:07 PM Kumar Rodriguez RN 6. Suicidal Behavior (Lifetime) No 5:07 PM Rena Rodriguez RN documented as of this encounter Plan of Treatment Upcoming Encounters Date Type Department Care Team (Late st Contact Info) Description 02/09/2025 3:45 PM EDT Appointment [facility], Bone Density - [facility] [address] [place] [address] Serafin Murray DO [address] [place] [address] documented as of this encounter Visit Diagnoses Not on filedocumented in this encounter Additional Health Concerns Infection Onset Date Last Indicated Resolved Time CoV-Risk Comment:Neg covid 05/20/2022 05/21/2022 05/22/2022 6:[address] CoV-Risk 01/17/2024 01/17/2024 01/28/2024 1:22 AM EDT documented as of this encounter Care Teams Associate Director Of Development Relationship Specialty Start Date End Date Callum Field MD PCP - General Family Medicine 09/29/19 12/27/22 Callum Field MD PCP - General Family Medicine 12/28/22 12/23/23 Callum Field MD [address] [place] [address] [email or web address] PCP - General Family Medicine 12/24/23 documented as of this encounter Additional Source Comments The information contained in this document represents components of the legal health record. It is not the complete legal health record.[facility]
--- OUTSIDE RECORDS SUMMARY | 2025-01-06 10:02 | XMS_ITS | Encounter Summary ---
Author Organization [facility] Address [address] [place] [address] Phone Care Team Providers Care Philosophy Instructor Name Role Phone Al Alcantara MD Primary Care Provider Al Alcantara MD Primary Care Provider Callum Field MD Primary Care Provider Callum Field MD Primary Care Provider [phone] Callum Field MD Primary Care Provider [phone] Encounter Details Date Type Department Care Team (Latest Contact Info) Description 11/12/2017 Transcribe Orders [facility] Laboratory [address] [place] [address] Vinay Serrano MD [address] [place], [place] [phone] Subchronic schizophrenia (Primary Dx) Social History Tobacco [...] Description 02/09/2025 3:45 PM EDT Appointment [facility], [facility] [address] [place] [address] Serafin Murray DO [address] [place] [address] documented as of this encounter Visit Diagnoses Diagnosis Subchronic schizophrenia- Primary Unspecified schizophrenia, subchronic condition documented in this encounter Additional Health Concerns Infection Onset Date Last Indicated Resolved Time CoV-Risk Comment:Neg covid 05/20/2022 05/21/2022 05/22/2022 6:[address] CoV-Risk 01/17/2024 01/17/2024 01/28/2024 1:22 AM EDT documented as of this encounter Care Teams Philosophy Instructor Relationship Specialty Start Date End Date Al Alcantara MD [address] [place] [phone] [email or web address] PCP - General 02/04/17 06/09/19 Al Alcantara MD [address] [place] [phone] [email or web address] PCP - General Family Medicine 06/10/19 09/28/19 Callum Field MD [address] [place] [phone] PCP - General Family Medicine 09/29/19 12/27/22 Callum Field MD [address] [place] [phone] PCP - General Family Medicine 12/28/22 12/23/23 Callum Field MD [address] [place] [phone] PCP - General Family Medicine 12/24/23 documented as of this encounter Additional Source Comments The information contained in this document represents components of the legal health record. It is not the complete legal health record.[facility]
--- OUTSIDE RECORDS SUMMARY | 2025-01-06 10:03 | XMS_ITS | Encounter Summary ---
Author Organization [facility] Address [address] [place] [address] Phone Care Team Providers Care Mechanism Assembler Name Role Phone Al Alcantara MD Primary Care Provider Al Alcantara MD Primary Care Provider Callum Field MD Primary Care Provider [phone] Callum Field MD Primary Care Provider Callum Field MD Primary Care Provider [phone] Encounter Details Date Type Department Care Team (Latest Contact Info) Description 04/02/2017 Transcribe Orders [facility] Laboratory 30 [place] [address] Vinay Serrano MD [address] [place] [phone] Subchronic schizophrenia (Primary Dx) Social History Tobacco [...] Info) Description 02/09/2025 3:45 PM EDT Appointment [facility], Bone [facility] 30 [place] [address] Serafin Murray DO [address] [place] [address] documented as of this encounter Procedures Procedure Name Priority Date/Time Associated Diagnosis Comments CBC AND DIFFERENTIAL Routine 04/02/2017 2:23 PM EST Subchronic schizophrenia documented in this encounter Results * (ABNORMAL) CBC and differential (04/02/2017 2:23 PM EST) WBC 7.60 3.40 - 11.20 K/uL [facility] RBC 3.80 3.80 - 4.80 M/uL [facility] HGB 11.4(L) 12.0 - 15.0 g/dL [facility] HCT 34.4(L) 36.0 - 46.0 % [facility] PLT 240 130 - 400 K/uL [facility] MCV 90.5 79.0 - 98.0 fL [facility] MCH 30.0 27.0 - 34.8 pg [facility] MCHC 33.1 31.5 - 36.0 g/dL [facility] RDW 13.3 10.8 - 14.6 % [facility] MPV 10.7 9.4 - 12.4 fl [facility] NRBC 0.00 /100 WBCs [facility] ABSOLUTE NRBC 0.00 K/uL [facility] DIFF METHOD Auto [facility] NEUTS 63.0 45.30 - 77.70 % [facility] LYMPHS 22.0 12.30 - 39.70 % [facility] MONOS 9.2 4.10 - 12.80 % [facility] EOS 4.7 0 - 7.2 % [facility] BASOS 0.8 0 - 2.80 % [facility] Granulocytes, immature (%) 0.3 0.0 - 0.9 % [facility] ABSOLUTE NEUTS 4.79 1.40 - 7.70 K/uL [facility] ABSOLUTE LYMPHS 1.67 0.60 - 3.20 K/uL [facility] ABSOLUTE MONOS 0.70(H) 0.11 - 0.59 K/uL [facility] ABSOLUTE EOS 0.36 0.01 - 0.50 K/uL [facility] ABSOLUTE BASOS 0.06 0.00 - 0.08 K/uL [facility] Granulocytes, immature 0.02 0.00 - 0.05 K/uL [facility] Blood 04/02/2017 2:23 PM EST 04/02/2017 2:25 PM EST Vinay Serrano MD LAB BLOOD ORDERABLES Final Result Performing Organization Address City/State/[facility] Co de Phone Number [facility] [address] [place] [address] documented in this encounter Visit Diagnoses Diagnosis Subchronic schizophrenia- Primary Unspecified schizophrenia, subchronic condition documented in this encounter Additional Health Concerns Infection Onset Date Last Indicated Resolved Time CoV-Risk Comment:Neg covid 05/20/2022 05/21/2022 05/22/2022 6:[address] CoV-Risk 01/17/2024 01/17/2024 01/28/2024 1:22 AM EDT documented as of this encounter Care Teams Mechanism Assembler Relationship Specialty Start Date End Date Al Alcantara MD [address] [place] [address] [email or web address] PCP - General 02/04/17 06/09/19 Al Alcantara MD [address] [place] [address] [email or web address] PCP - General Family Medicine 06/10/19 09/28/19 Callum Field MD [address] [place] [address] [email or web address] PCP - General Family Medicine 09/29/19 12/27/22 Callum Field MD [address] [place] [phone] PCP - General Family Medicine 12/28/22 12/23/23 Callum Field MD [address] [place] [address] [email or web address] PCP - General Family Medicine 12/24/23 documented as of this encounter Additional Source Comments The information contained in this document represents components of the legal health record. It is not the complete legal health record.[facility]
--- OUTSIDE RECORDS SUMMARY | 2025-01-06 10:03 | XMS_ITS | Clinical Summary ---
Author Organization [facility] Address [address] [facility] [address] [place] [address] Phone Care Team Providers Care Complaint Evaluation Officer Name Role Phone Callum Field MD Primary Care Provider [phone] Allergies Active Allergy Reactions Criticality Noted Date [...] daily as needed (Anxiety). Last filled at [facility], [place] 01/06/24 01/06/2024 Active cloZAPine (CLOZARIL) 50 MG [...] [facility] - [facility] [address] [place] [address] Serafin Murray DO [address] [place] [address] Health Maintenance Due Date Last Done Comments [...] EDT) WBC 5.82 4.00 - 11.00 K/uL [facility] RBC 3.61(L) 4.00 - 5.20 M/uL [facility] HGB 10.7(L) 12.0 - 16.0 g/dL [facility] HCT 32.9(L) 36.0 - 46.0 % [facility] PLT 208 150 - 450 K/uL [facility] MCV 91.1 80.0 - 100.0 fL [facility] MCH 29.6 27.0 - 31.0 pg [facility] MCHC 32.5 32.0 - 36.0 g/dL [facility] RDW 14.4 11.5 - 14.5 % [facility] MPV 10.2 8.4 - 12.0 fL [facility] NRBC 0.00 0.00 /100 WBCs [facility] ABSOLUTE NRBC 0.00 0.00 K/uL [facility] DIFF METHOD Auto [facility] NEUTS 56.5 48.0 - 76.0 % [facility] LYMPHS 28.0 18.0 - 41.0 % [facility] MONOS 10.1 4.0 - 11.0 % [facility] EOS 4.3 0.0 - 5.0 % [facility] BASOS 0.9 0.0 - 1.5 % [facility] Granulocytes, immature (%) 0.2 0.0 - 0.9 % [facility] ABSOLUTE NEUTS 3.29 1.92 - 7.60 K/uL [facility] ABSOLUTE LYMPHS 1.63 0.72 - 4.10 K/uL [facility] ABSOLUTE MONOS 0.59 0.16 - 1.10 K/uL [facility] ABSOLUTE EOS 0.25 0.00 - 0.50 K/uL [facility] ABSOLUTE BASOS 0.05 0.00 - 0.15 K/uL [facility] Granulocytes, immature 0.01 0.00 - 0.09 K/uL [facility] Blood 08/25/2024 6:00 AM EDT 08/25/2024 8:25 AM EDT us Vinay Serrano MD LAB BLOOD ORDERABLES Final Result Performing Organization Address [facility]/ZIP Co de Phone Number [address] [address] * (ABNORMAL) TSH (07/01/2024 5:45 AM EDT) Pathologist [facility] TSH 10.70(H) 0.27 - 4.20 uIU/mL [facility] Blood 07/01/2024 5:45 AM EDT 07/01/2024 8:10 AM EDT us Katelynn Marsh NP LAB BLOOD ORDERABLES Final Resul t Performing Organization Address [facility]/ZIP Co de Phone Number [address] [address] * (ABNORMAL) Comprehensive metabolic panel (06/25/2024 5:10 AM EST) Pathologist [facility] SODIUM 144 133 - 146 mmol/L [facility] POTASSIUM 4.8 3.3 - 5.1 mmol/L [facility] CHLORIDE 108 96 - 108 mmol/L [facility] CO2 25 21 - 35 mmol/L [facility] BUN 25(H) 6 - 19 mg/dL [facility] CREATININE 1.20 0.5 - 1.5 mg/dL [facility] GLUCOSE 100(H) 70 - 99 mg/dL [facility] ALBUMIN 3.5(L) 3.9 - 4.8 g/dL [facility] TOTAL PROTEIN 5.3(L) 6.5 - 8.0 g/dL [facility] CALCIUM 8.8 8.4 - 10.3 mg/dL [facility] ALKALINE PHOSPHATASE 143(H) 39 - 117 U/L [facility] TOTAL BILIRUBIN 0.3 0.0 - 1.2 mg/dL [facility] AST 21 0 - 37 U/L [facility] ALT 23 0 - 40 U/L [facility] GLOBULIN 1.8 1 - 4.8 g/dL [facility] EGFR 48(L) >59 mL/min/1.7 3m2 [facility] Comment:Estimated glomerular filtration rate calculated using the CKD-EPI refit equation. ANION GAP 16 10 - 20 mmol/L [facility] Blood 06/25/2024 5:10 AM EST 06/25/2024 8:41 AM EST us Katelynn Marsh VOCATIONAL COUNSELOR LAB BLOOD ORDERABLES Final Resul t Performing Organization Address City/State/[facility] Co de Phone Number [address] [address] * ENDOSCOPY, COLON (03/05/2018 9:09 AM EST) Narrative Transcriptions Shan Cote MD - 03/05/2018 9:09 AM EST Patient Name: Deedee Holbrook Attending MD:: SHAN COTE MD Procedure Date: 03/05/2018 9:09 AM Date of : 1950 Age: 67 Admit Type: Outpatient Gender: Female Room: [facility] 05 Referring MD: SUZY LUNDY MD Exam [...] 9:09 AM Procedure Code(s): --- Professional --- 00708, Colonoscopy, flexible; with biopsy, single or multiple --- Technical --- 42145, Colonoscopy, flexible; with biopsy, single or multiple [...] perforation orabscess without bleeding CPT copyright 2016 [employer]. All rights reserved. The codes documented in this report are preliminary and upon deburring technician reviewmay be revised to meet current compliance requirements. [address] [place] [address] Suzy Lundy MD GI PROCEDURE ORDERABLES Final R esult from Last 3 Months or Most Recently Relevant to Health Maintenance Insurance [place] BL[place] [phone] [place] Advance Directives For more information, please contact: [phone] (9AM - 5PM [place], Saturday-Saturday) Documents on File Type Date Recorded Patient Bottom Worker Expl anation Healthcare Proxy 05/25/2022 2:05 PM * Full Code (Latest Code Status on File) Date Activated Date Inactivated Comments 05/22/2022 12:26 AM Question Answer Comments Code Status Confirmed With: Patient * Full Code (Confirmed) Date Activated Date Inactivated Comments 04/14/2017 4:14 AM 04/19/2017 3:46 PM Question Answer Comments Code Discussion Comments: Patient Care Teams Complaint Evaluation Officer Relationship Specialty Start Date End Date Callum Field MD [address] [place] [phone] [email or web address] PCP - General Family Medicine 12/24/23 Additional Source Comments The information contained in this document represents components of the legal health record. It is not the complete legal health record.[facility]
--- OUTSIDE RECORDS SUMMARY | 2025-01-06 10:03 | XMS_ITS | Encounter Summary ---
Author Organization [facility] Address [address] [place] [address] Phone Care Team Providers Care Manufacturing Sr Engineer Name Role Phone Al Alcantara MD Primary Care Provider Al Alcantara MD Primary Care Provider [phone] Callum Field MD Primary Care Provider [phone] Callum Field MD Primary Care Provider [phone] Callum Field MD Primary Care Provider [phone] Encounter Details Date Type Department Care Team (Latest Contact Info) Description 07/23/2017 Transcribe Orders [facility] Laboratory [address] [place] [address] Vinay Serrano MD [address] [place], [place] [phone] Subchronic schizophrenia (Primary Dx) Social History Tobacco [...] 3:45 PM EDT Appointment [facility], [facility] 30 [place] [address] Murray, Serafin, [address] [place] [address] documented as of this encounter Results * (ABNORMAL) CBC and differential (07/23/2017 1:16 PM EDT) WBC 7.36 3.40 - 11.20 K/uL [facility] RBC 3.69(L) 3.80 - 4.80 M/uL [facility] HGB 11.3(L) 12.0 - 15.0 g/dL [facility] HCT 33.3(L) 36.0 - 46.0 % [facility] PLT 261 130 - 400 K/uL [facility] MCV 90.2 79.0 - 98.0 fL [facility] MCH 30.6 27.0 - 34.8 pg [facility] MCHC 33.9 31.5 - 36.0 g/dL [facility] RDW 13.4 10.8 - 14.6 % [facility] MPV 10.6 9.4 - 12.4 fl [facility] NRBC 0.00 /100 WBCs [facility] ABSOLUTE NRBC 0.00 K/uL [facility] DIFF METHOD Auto [facility] NEUTS 71.9 45.30 - 77.70 % [facility] LYMPHS 18.2 12.30 - 39.70 % [facility] MONOS 7.1 4.10 - 12.80 % [facility] EOS 1.8 0 - 7.2 % [facility] BASOS 0.7 0 - 2.80 % [facility] Granulocytes, immature (%) 0.3 0.0 - 0.9 % [facility] ABSOLUTE NEUTS 5.30 1.40 - 7.70 K/uL [facility] ABSOLUTE LYMPHS 1.34 0.60 - 3.20 K/uL [facility] ABSOLUTE MONOS 0.52 0.11 - 0.59 K/uL [facility] ABSOLUTE EOS 0.13 0.01 - 0.50 K/uL [facility] ABSOLUTE BASOS 0.05 0.00 - 0.08 K/uL [facility] Granulocytes, immature 0.02 0.00 - 0.05 K/uL [facility] Blood 07/23/2017 1:16 PM EDT 07/23/2017 1:18 PM EDT Vinay Serrano MD LAB BLOOD ORDERABLES Final Result [facility] 30 [place] [address] documented in this encounter Visit Diagnoses Diagnosis Subchronic schizophrenia- Primary Unspecified schizophrenia, subchronic condition documented in this encounter Additional Health Concerns Infection Onset Date Last Indicated Resolved Time CoV-Risk Comment:Neg covid 05/20/2022 05/21/2022 05/22/2022 6:[address] CoV-Risk 01/17/2024 01/17/2024 01/28/2024 1:22 AM EDT documented as of this encounter Care Teams Manufacturing Sr Engineer Relationship Specialty Start Date End Date Al Alcantara MD [address] [place] [phone] [email or web address] PCP - General 02/04/17 06/09/19 Al Alcantara MD [address] [place] [address] [email or web address] PCP - General Family Medicine 06/10/19 09/28/19 Callum Field MD [address] [place] [phone] [email or web address] PCP - General Family Medicine 09/29/19 12/27/22 Callum Field MD [address] [place] [phone] [email or web address] PCP - General Family Medicine 12/28/22 12/23/23 Callum Field MD [address] [place] [address] [email or web address] PCP - General Family Medicine 12/24/23 documented as of this encounter Additional Source Comments The information contained in this document represents components of the legal health record. It is not the complete legal health record.[facility]
--- OUTSIDE RECORDS SUMMARY | 2025-01-06 10:04 | XMS_ITS | Encounter Summary ---
Author Organization [facility] Address [address] [place] [address] Phone Care Team Providers Care Motor Bus Driver Name Role Phone Al Alcantara MD Primary Care Provider Al Alcantara MD Primary Care Provider Callum Field MD Primary Care Provider Callum Field MD Primary Care Provider [phone] Callum Field MD Primary Care Provider [phone] Encounter Details Date Type Department Care Team (Late st Contact Info) Description 03/09/2017 Transcribe Orders [facility] Laboratory [address] [place] [address] Vinay Serrano MD [address] [place] [address] [phone] Drug therapy (Primary Dx) Social History Tobacco [...] 02/09/2025 3:45 PM EDT Appointment [facility] 30 [place] [address] Serafin Murray DO [address] [place] [address] documented as of this encounter Procedures Procedure Name Priority Date/Time Associated Diagnosis Comments CBC AND DIFFERENTIAL Routine 03/09/2017 10:16 AM EST Drug therapy documented in this encounter Results * (ABNORMAL) CBC and differential (03/09/2017 10:16 AM EST) WBC 5.93 3.40 - 11.20 K/uL [facility] RBC 3.86 3.80 - 4.80 M/uL [facility] HGB 11.7(L) 12.0 - 15.0 g/dL [facility] HCT 34.8(L) 36.0 - 46.0 % [facility] PLT 238 130 - 400 K/uL [facility] MCV 90.2 79.0 - 98.0 fL [facility] MCH 30.3 27.0 - 34.8 pg [facility] MCHC 33.6 31.5 - 36.0 g/dL [facility] RDW 13.2 10.8 - 14.6 % [facility] MPV 10.2 9.4 - 12.4 fl [facility] NRBC 0.00 /100 WBCs [facility] ABSOLUTE NRBC 0.00 K/uL [facility] DIFF METHOD Auto [facility] NEUTS 54.0 45.30 - 77.70 % [facility] LYMPHS 30.5 12.30 - 39.70 % [facility] MONOS 8.6 4.10 - 12.80 % [facility] EOS 5.4 0 - 7.2 % [facility] BASOS 1.3 0 - 2.80 % [facility] Granulocytes, immature (%) 0.2 0.0 - 0.9 % [facility] ABSOLUTE NEUTS 3.20 1.40 - 7.70 K/uL [facility] ABSOLUTE LYMPHS 1.81 0.60 - 3.20 K/uL [facility] ABSOLUTE MONOS 0.51 0.11 - 0.59 K/uL [facility] ABSOLUTE EOS 0.32 0.01 - 0.50 K/uL [facility] ABSOLUTE BASOS 0.08 0.00 - 0.08 K/uL [facility] Granulocytes, immature 0.01 0.00 - 0.05 K/uL [facility] Blood 03/09/2017 10:1 6 AM EST 03/09/2017 10:18 AM EST Vinay Serrano MD LAB BLOOD ORDERABLES Final Result Performing Organization Address City/State/RUST Co de Phone Number [facility] [address] [place] [address] documented in this encounter Visit Diagnoses Diagnosis Drug therapy- Primary Encounter for other specified aftercare documented in this encounter Additional Health Concerns Infection Onset Date Last Indicated Resolved Time CoV-Risk Comment:Neg covid 05/20/2022 05/21/2022 05/22/2022 6:[address] CoV-Risk 01/17/2024 01/17/2024 01/28/2024 1:22 AM EDT documented as of this encounter Care Teams Motor Bus Driver Relationship Specialty Start Date End Date Al Alcantara MD [address] [place] [address] [email or web address] PCP - General 02/04/17 06/09/19 Al Alcantara MD [address] [place] [phone] [email or web address] PCP - General Family Medicine 06/10/19 09/28/19 Callum Field MD [address] [place] [address] [email or web address] PCP - General Family Medicine 09/29/19 12/27/22 Callum Field MD [address] [place] [address] [email or web address] PCP - General Family Medicine 12/28/22 12/23/23 Callum Field MD [address] [place] [address] [email or web address] PCP - General Family Medicine 12/24/23 documented as of this encounter Additional Source Comments The information contained in this document represents components of the legal health record. It is not the complete legal health record.[facility]
--- OUTSIDE RECORDS SUMMARY | 2025-01-06 10:04 | XMS_ITS | Encounter Summary ---
Author Organization [facility] Address [address] [place] [phone] Phone Care Team Providers Care Brine Purifier Name Role Phone Al Alcantara MD Primary Care Provider [phone] Al Alcantara MD Primary Care Provider Callum Field MD Primary Care Provider [phone] Callum Field MD Primary Care Provider [phone] Callum Field MD Primary Care Provider Encounter Details Date Type Department Care Team (Late st Contact Info) Description 03/05/2018 Procedure Pass [facility] Admitting Dept Virtual Department [address] [place] [phone] Social History Tobacco Use Types Packs/Day Years [...] Info) Description 02/09/2025 3:45 PM EDT Appointment [facility], [facility] - [address] [address] Serafin Murray DO [address] [place] [address] documented as of this encounter Visit Diagnoses Not on filedocumented in this encounter Additional Health Concerns Infection Onset Date Last Indicated Resolved Time CoV-Risk Comment:Neg covid 05/20/2022 05/21/2022 05/22/2022 6:[address] CoV-Risk 01/17/2024 01/17/2024 01/28/2024 1:22 AM EDT documented as of this encounter Care Teams Brine Purifier Relationship Specialty Start Date End Date Al Alcantara MD 70 [place] [address] [email or web address] PCP - General 02/04/17 06/09/19 Al Alcantara MD [address] [place] [address] [email or web address] PCP - General Family Medicine 06/10/19 09/28/19 Callum Field MD [address] [place] [address] PCP - General Family Medicine 09/29/19 12/27/22 Callum Field MD 70 [place] [address] PCP - General Family Medicine 12/28/22 12/23/23 Callum Field MD [address] [place] [address] PCP - General Family Medicine 12/24/23 documented as of this encounter Additional Source Comments The information contained in this document represents components of the legal health record. It is not the complete legal health record.[facility]
--- OUTSIDE RECORDS SUMMARY | 2025-01-06 10:04 | XMS_ITS | Encounter Summary ---
Author Organization [facility] Address [address] [place] [address] Phone Care Team Providers Care Air Carrier Inspector Name Role Phone Al Alcantara MD Primary Care Provider Al Alcantara MD Primary Care Provider Callum Field MD Primary Care Provider [phone] Callum Field MD Primary Care Provider Callum Field MD Primary Care Provider [phone] Encounter Details Date Type Department Care Team (Latest Contact Info) Description 05/01/2017 Transcribe Orders [facility] Laboratory 30 [place] [address] Vinay Serrano MD 50 [place], [place] [phone] Subchronic schizophrenia (Primary Dx) Social History Tobacco [...] Info) Description 02/09/2025 3:45 PM EDT Appointment [facility], [facility] 30 [place] [address] Trevor DO Serafin [address] [place] [address] documented as of this encounter Procedures Procedure Name Priority Date/Time Associated Diagnosis Comments CBC AND DIFFERENTIAL Routine 05/01/2017 10:51 AM EST Subchronic schizophrenia documented in this encounter Results * (ABNORMAL) CBC and differential (05/01/2017 10:51 AM EST) WBC 6.68 3.40 - 11.20 K/uL [facility] RBC 3.53(L) 3.80 - 4.80 M/uL [facility] HGB 10.6(L) 12.0 - 15.0 g/dL [facility] HCT 33.0(L) 36.0 - 46.0 % [facility] PLT 351 130 - 400 K/uL [facility] MCV 93.5 79.0 - 98.0 fL [facility] MCH 30.0 27.0 - 34.8 pg [facility] MCHC 32.1 31.5 - 36.0 g/dL [facility] RDW 14.2 10.8 - 14.6 % [facility] MPV 10.0 9.4 - 12.4 [facility] NRBC 0.00 /100 WBCs [facility] ABSOLUTE NRBC 0.00 K/uL [facility] DIFF METHOD Auto [facility] NEUTS 64.6 45.30 - 77.70 % [facility] LYMPHS 20.7 12.30 - 39.70 % [facility] MONOS 9.1 4.10 - 12.80 % [facility] EOS 4.3 0 - 7.2 % [facility] BASOS 1.2 0 - 2.80 % [facility] Granulocytes, immature (%) 0.1 0.0 - 0.9 % [facility] ABSOLUTE NEUTS 4.31 1.40 - 7.70 K/uL [facility] ABSOLUTE LYMPHS 1.38 0.60 - 3.20 K/uL [facility] ABSOLUTE MONOS 0.61(H) 0.11 - 0.59 K/uL [facility] ABSOLUTE EOS 0.29 0.01 - 0.50 K/uL [facility] ABSOLUTE BASOS 0.08 0.00 - 0.08 K/uL [facility] Granulocytes, immature 0.01 0.00 - 0.05 K/uL [facility] Blood 05/01/2017 10:5 1 AM EST 05/01/2017 10:53 AM EST us Vinay Serrano MD LAB BLOOD ORDERABLES Final Result [facility] 30 [place] [address] documented in this encounter Visit Diagnoses Diagnosis Subchronic schizophrenia- Primary Unspecified schizophrenia, subchronic condition documented in this encounter Additional Health Concerns Infection Onset Date Last Indicated Resolved Time CoV-Risk Comment:Neg covid 05/20/2022 05/21/2022 05/22/2022 6:[address] CoV-Risk 01/17/2024 01/17/2024 01/28/2024 1:22 AM EDT documented as of this encounter Care Teams Air Carrier Inspector Relationship Specialty Start Date End Date Al Alcantara MD [address] [place] [address] PCP - General 02/04/17 06/09/19 Al Alcantara MD [address] [place] [address] PCP - General Family Medicine 06/10/19 09/28/19 Callum Field MD [address] [place] [address] [email or web address] PCP - General Family Medicine 09/29/19 12/27/22 Callum Field MD [address] [place] [phone] [email or web address] PCP - General Family Medicine 12/28/22 12/23/23 Callum Field MD [address] [place] [address] [email or web address] PCP - General Family Medicine 12/24/23 documented as of this encounter Additional Source Comments The information contained in this document represents components of the legal health record. It is not the complete legal health record.[facility]
--- OUTSIDE RECORDS SUMMARY | 2025-01-06 10:04 | XMS_ITS | Encounter Summary ---
Author Organization [facility] Address [address] [place] [address] Phone Care Team Providers Care Advanced Practice Nurse Psychotherapist Name Role Phone Callum Field MD Primary Care Provider [phone] Callum Field MD Primary Care Provider [phone] Callum Field MD Primary Care Provider [phone] Encounter Details Date Type Department Care Team (Late st Contact Info) Description 09/25/2022 Transcribe Orders Virtual Department [address] [place] [address] Mei Rodriguez MD [address] [place] [address] [email or web address] Osteopenia, unspecified location Social History Tobacco Use [...] [facility] [address] [place] [address] Serafin Murray DO [address] [place] [address] documented as of this encounter Visit Diagnoses Diagnosis Osteopenia, unspecified location documented in this encounter Additional Health Concerns Infection Onset Date Last Indicated Resolved Time CoV-Risk 01/17/2024 01/17/2024 01/28/2024 1:22 AM EDT documented as of this encounter Care Teams Advanced Practice Nurse Psychotherapist Relationship Specialty Start Date End Date Callum Field MD PCP - General Family Medicine 09/29/19 12/27/22 Callum Field MD PCP - General Family Medicine 12/28/22 12/23/23 Callum Field MD [address] [place] [phone] PCP - General Family Medicine 12/24/23 documented as of this encounter Additional Source Comments The information contained in this document represents components of the legal health record. It is not the complete legal health record.[facility]
--- OUTSIDE RECORDS SUMMARY | 2025-01-06 10:04 | XMS_ITS | Encounter Summary ---
Author Organization [facility] Address [address] [address] Phone Care Team Providers Care Patient Services Technician Name Role Phone Al Alcantara MD Primary Care Provider Al Alcantara MD Primary Care Provider Callum Field MD Primary Care Provider [phone] Callum Field MD Primary Care Provider Callum Field MD Primary Care Provider [phone] Encounter Details Date Type Department Care Team (Latest Contact Info) Description 05/28/2017 Transcribe Orders [facility] Laboratory [address] [place] [address] Vinay Serrano MD 50 [place], [place] [phone] Chronic schizophrenia (Primary Dx) Social History Tobacco [...] Info) Description 02/09/2025 3:45 PM EDT Appointment [facility], [facility] [address] [place] [address] Murray, DO Serafin [address] [place] [address] documented as of this encounter Results * (ABNORMAL) CBC and differential (05/28/2017 3:23 PM EST) WBC 7.56 3.40 - 11.20 K/uL [facility] RBC 3.57(L) 3.80 - 4.80 M/uL [facility] HGB 10.8(L) 12.0 - 15.0 g/dL [facility] HCT 33.1(L) 36.0 - 46.0 % [facility] PLT 258 130 - 400 K/uL [facility] MCV 92.7 79.0 - 98.0 fL [facility] MCH 30.3 27.0 - 34.8 pg [facility] MCHC 32.6 31.5 - 36.0 g/dL [facility] RDW 13.9 10.8 - 14.6 % [facility] MPV 10.2 9.4 - 12.4 fl [facility] NRBC 0.00 /100 WBCs [facility] ABSOLUTE NRBC 0.00 K/uL [facility] DIFF METHOD Auto [facility] NEUTS 71.5 45.30 - 77.70 % [facility] LYMPHS 19.8 12.30 - 39.70 % [facility] MONOS 6.5 4.10 - 12.80 % [facility] EOS 1.5 0 - 7.2 % [facility] BASOS 0.4 0 - 2.80 % [facility] Granulocytes, immature (%) 0.3 0.0 - 0.9 % [facility] ABSOLUTE NEUTS 5.41 1.40 - 7.70 K/uL [facility] ABSOLUTE LYMPHS 1.50 0.60 - 3.20 K/uL [facility] ABSOLUTE MONOS 0.49 0.11 - 0.59 K/uL [facility] ABSOLUTE EOS 0.11 0.01 - 0.50 K/uL [facility] ABSOLUTE BASOS 0.03 0.00 - 0.08 K/uL [facility] Granulocytes, immature 0.02 0.00 - 0.05 K/uL [facility] Blood 05/28/2017 3:23 PM EST 05/28/2017 3:25 PM EST Vinay Serrano MD LAB BLOOD ORDERABLES Final Result [facility] [address] [place] [address] documented in this encounter Visit Diagnoses Diagnosis Chronic schizophrenia- Primary Unspecified schizophrenia, chronic condition documented in this encounter Additional Health Concerns Infection Onset Date Last Indicated Resolved Time CoV-Risk Comment:Neg covid 05/20/2022 05/21/2022 05/22/2022 6:[address] CoV-Risk 01/17/2024 01/17/2024 01/28/2024 1:22 AM EDT documented as of this encounter Care Teams Patient Services Technician Relationship Specialty Start Date End Date Al Alcantara MD [address] [place] [phone] [email or web address] PCP - General 02/04/17 06/09/19 Al Alcantara MD [address] [place] [phone] [email or web address] PCP - General Family Medicine 06/10/19 09/28/19 Callum Field MD [address] [place] [phone] PCP - General Family Medicine 09/29/19 12/27/22 Callum Field MD [address] [place] [phone] PCP - General Family Medicine 12/28/22 12/23/23 Callum Field MD [address] [place] [address] [email or web address] PCP - General Family Medicine 12/24/23 documented as of this encounter Additional Source Comments The information contained in this document represents components of the legal health record. It is not the complete legal health record.[facility]
--- OUTSIDE RECORDS SUMMARY | 2025-01-06 10:04 | XMS_ITS | Encounter Summary ---
Author Organization [facility] Address [address] [place] [address] Phone Care Team Providers Care Shuttle Operator Name Role Phone Callum Field MD Primary Care Provider [phone] Callum Field MD Primary Care Provider [phone] Callum Field MD Primary Care Provider Encounter Details Date Type Department Care Team (Late st Contact Info) Description 09/25/2022 Ancillary Orders Virtual Department 30 [place] [address] Mei Rodriguez MD [address] [place] [address] [email or web address] Osteopenia, unspecified location; Other [...] Info) Description 02/09/2025 3:45 PM EDT Appointment [facility], Bone Density - [facility] [address] [place] [address] Serafin Murray DO [address] [place] [address] documented as of this encounter Visit Diagnoses Diagnosis Osteopenia, unspecified location Other specified disorders of bone density and structure, unspecified site documented in this encounter Additional Health Concerns Infection Onset Date Last Indicated Resolved Time CoV-Risk 01/17/2024 01/17/2024 01/28/2024 1:22 AM EDT documented as of this encounter Care Teams Shuttle Operator Relationship Specialty Start Date End Date Callum Field MD PCP - General Family Medicine 09/29/19 12/27/22 Callum Field MD PCP - General Family Medicine 12/28/22 12/23/23 Callum Field MD [address] [place] [phone] PCP - General Family Medicine 12/24/23 documented as of this encounter Additional Source Comments The information contained in this document represents components of the legal health record. It is not the complete legal health record.[facility]
--- OUTSIDE RECORDS SUMMARY | 2025-01-06 10:04 | XMS_ITS | Encounter Summary ---
Author Organization [facility] Address [address] [place] [address] Phone Care Team Providers Care Association Executive Name Role Phone Al Alcantara MD Primary Care Provider Al Alcantara MD Primary Care Provider Callum Field MD Primary Care Provider [phone] Callum Field MD Primary Care Provider Callum Field MD Primary Care Provider [phone] Encounter Details Date Type Department Care Team (Late st Contact Info) Description 01/08/2018 Transcribe Orders [facility] Laboratory 30 [place] [address] Vinay Serrano MD 50 [place], [place] [phone] Social History Tobacco Use Types Packs/Day Years [...] 3:45 PM EDT Appointment [facility], [facility] [address] [facility] [place] [address] Serafin Murray DO 70 [place] [address] documented as of this encounter Visit Diagnoses Not on filedocumented in this encounter Additional Health Concerns Infection Onset Date Last Indicated Resolved Time CoV-Risk Comment:Neg covid 05/20/2022 05/21/2022 05/22/2022 6:[address] CoV-Risk 01/17/2024 01/17/2024 01/28/2024 1:22 AM EDT documented as of this encounter Care Teams Association Executive Relationship Specialty Start Date End Date Al Alcantara MD [address] [place] [phone] [email or web address] PCP - General 02/04/17 06/09/19 lA Alcantara MD [address] [place] [address] [email or web address] PCP - General Family Medicine 06/10/19 09/28/19 Callum Field MD [address] [place] [phone] PCP - General Family Medicine 09/29/19 12/27/22 Callum Field MD [address] [place] [phone] PCP - General Family Medicine 12/28/22 12/23/23 Callum Field MD [address] [place] [phone] PCP - General Family Medicine 12/24/23 documented as of this encounter Additional Source Comments The information contained in this document represents components of the legal health record. It is not the complete legal health record.[facility]
--- OUTSIDE RECORDS SUMMARY | 2025-01-06 10:04 | XMS_ITS | Encounter Summary ---
Author Organization [facility] Address [address] [place] [address] Phone Care Team Providers Care Equipment Worker Name Role Phone Al Alcantara MD Primary Care Provider [phone] Al Alcantara MD Primary Care Provider Callum Field MD Primary Care Provider [phone] Callum Field MD Primary Care Provider [phone] Callum Field MD Primary Care Provider [phone] Encounter Details Date Type Department Care Team (Latest Contact Info) Description 06/25/2017 Transcribe Orders [facility] Laboratory 30 [place] [address] Vinay Serrano MD 50 [place], [place] [phone] Subchronic schizophrenia (Primary Dx) Social History Tobacco [...] Info) Description 02/09/2025 3:45 PM EDT Appointment [facility], [facility] 30 [place] [address] MurraySerafin DO 70 [place] [address] documented as of this encounter Results * (ABNORMAL) CBC and differential (06/25/2017 12:05 PM EST) WBC 7.99 3.40 - 11.20 K/uL [facility] RBC 3.48(L) 3.80 - 4.80 M/uL [facility] HGB 10.8(L) 12.0 - 15.0 g/dL [facility] HCT 31.6(L) 36.0 - 46.0 % [facility] PLT 247 130 - 400 K/uL [facility] MCV 90.8 79.0 - 98.0 fL [facility] MCH 31.0 27.0 - 34.8 pg [facility] MCHC 34.2 31.5 - 36.0 g/dL [facility] RDW 14.1 10.8 - 14.6 % [facility] MPV 10.3 9.4 - 12.4 fl [facility] NRBC 0.00 /100 WBCs [facility] ABSOLUTE NRBC 0.00 K/uL [facility] DIFF METHOD Auto [facility] NEUTS 70.6 45.30 - 77.70 % [facility] LYMPHS 18.9 12.30 - 39.70 % [facility] MONOS 6.9 4.10 - 12.80 % [facility] EOS 2.5 0 - 7.2 % [facility] BASOS 0.8 0 - 2.80 % [facility] Granulocytes, immature (%) 0.3 0.0 - 0.9 % [facility] ABSOLUTE NEUTS 5.65 1.40 - 7.70 K/uL [facility] ABSOLUTE LYMPHS 1.51 0.60 - 3.20 K/uL [facility] ABSOLUTE MONOS 0.55 0.11 - 0.59 K/uL [facility] ABSOLUTE EOS 0.20 0.01 - 0.50 K/uL [facility] ABSOLUTE BASOS 0.06 0.00 - 0.08 K/uL [facility] Granulocytes, immature 0.02 0.00 - 0.05 K/uL [facility] Blood 06/25/2017 12:0 5 PM EST 06/25/2017 12:08 PM EST Vinay Serrano MD LAB BLOOD ORDERABLES Final Result [facility] 30 [place] [address] documented in this encounter Visit Diagnoses Diagnosis Subchronic schizophrenia- Primary Unspecified schizophrenia, subchronic condition documented in this encounter Additional Health Concerns Infection Onset Date Last Indicated Resolved Time CoV-Risk Comment:Neg covid 05/20/2022 05/21/2022 05/22/2022 6:[address] CoV-Risk 01/17/2024 01/17/2024 01/28/2024 1:22 AM EDT documented as of this encounter Care Teams Equipment Worker Relationship Specialty Start Date End Date Al Alcantara MD [address] [place] [phone] [email or web address] PCP - General 02/04/17 06/09/19 Al Alcantara MD [address] [place] [address] [email or web address] PCP - General Family Medicine 06/10/19 09/28/19 Callum Feild MD [address] [place] [address] [email or web address] PCP - General Family Medicine 09/29/19 12/27/22 Callum Field MD [address] [place] [phone] PCP - General Family Medicine 12/28/22 12/23/23 Callum Field MD [address] [place] [phone] [email or web address] PCP - General Family Medicine 12/24/23 documented as of this encounter Additional Source Comments The information contained in this document represents components of the legal health record. It is not the complete legal health record.[facility]
--- OUTSIDE RECORDS SUMMARY | 2025-01-06 10:04 | XMS_ITS | Encounter Summary ---
Author Organization [facility] Address [address] [place] [address] Phone Care Team Providers Care Armament Installer Name Role Phone Callum Field MD Primary Care Provider [phone] Callum Field MD Primary Care Provider [phone] Callum Field MD Primary Care Provider [phone] Encounter Details Date Type Department Care Team (Late st Contact Info) Description 05/22/2022 Procedure Pass [facility], Ct Scan - [address] [address] Social History Tobacco Use Types Packs/Day Years [...] Info) Description 02/09/2025 3:45 PM EDT Appointment [facility], Bone Density - [address] [address] Serafin Murray DO 70 [place] [address] documented as of this encounter Visit Diagnoses Not on filedocumented in this encounter Additional Health Concerns Infection Onset Date Last Indicated Resolved Time CoV-Risk Comment:Neg covid 05/20/2022 05/21/2022 05/22/2022 6:[address] CoV-Risk 01/17/2024 01/17/2024 01/28/2024 1:22 AM EDT documented as of this encounter Care Teams Armament Installer Relationship Specialty Start Date End Date Callum Field MD [email or web address] PCP - General Family Medicine 09/29/19 12/27/22 Callum Field MD PCP - General Family Medicine 12/28/22 12/23/23 Callum Field MD [address] [place] [address] [email or web address] PCP - General Family Medicine 12/24/23 documented as of this encounter Additional Source Comments The information contained in this document represents components of the legal health record. It is not the complete legal health record.[facility]
--- OUTSIDE RECORDS SUMMARY | 2025-01-06 10:04 | XMS_ITS | Encounter Summary ---
Author Organization [facility] Address [address] [place] [address] Phone Care Team Providers Care Computer Discovery Teacher Name Role Phone Callum Field MD Primary Care Provider [phone] Callum Field MD Primary Care Provider [phone] Callum Field MD Primary Care Provider [phone] Encounter Details Date Type Department Care Team (Late st Contact Info) Description 01/19/2022 Procedure Pass [facility], Ct Scan - [facility] [address] [place], [place] [phone] Social History Tobacco Use Types Packs/Day Years [...] 12:59 PM EDT Christy Duron RN * [place] Suicide Severity Rating Scale (Screener/Recent Self-Report) Question [...] Info) Description 02/09/2025 3:45 PM EDT Appointment [facility], Bone Density - [facility] [address] [place] [address] Serafin Murray DO 70 [place] [address] documented as of this encounter Visit Diagnoses Not on filedocumented in this encounter Additional Health Concerns Infection Onset Date Last Indicated Resolved Time CoV-Risk Comment:Neg covid 05/20/2022 05/21/2022 05/22/2022 6:[address] CoV-Risk 01/17/2024 01/17/2024 01/28/2024 1:22 AM EDT documented as of this encounter Care Teams Computer Discovery Teacher Relationship Specialty Start Date End Date Callum Field MD [email or web address] PCP - General Family Medicine 09/29/19 12/27/22 Callum Field MD PCP - General Family Medicine 12/28/22 12/23/23 Callum Field MD [address] [place] [address] [email or web address] PCP - General Family Medicine 12/24/23 documented as of this encounter Additional Source Comments The information contained in this document represents components of the legal health record. It is not the complete legal health record.[facility]
[2025-01-13] VITALS (8 sets, daily range): BP systolic 139–152; BP diastolic 79–92; PULSE 68–79; RESP 12–14; TEMP 36.1–36.5; O2SAT 96–98
--- NOTE | 2025-01-13 06:50 | HO.ANESPROP2 ---
[facility] Active Problems Active Problems: All Active Problems Fracture of right inferior pubic ramus (Acute) Fracture of superior ramus of right pubis (Acute) Arachnoid cyst (Acute) Diverticulosis (Chronic) Schizophrenia (Acute) Past Medical History Medical History Diverticulosis Schizophrenia CKD (chronic kidney disease) Hyperlipidemia Type 2 diabetes mellitus Hypothyroidism HTN (hypertension) GERD (gastroesophageal reflux disease) Mood disorder Family History Family history of problems with anesthesia: No Surgical History History of Problems with Anesthesia: No Social History Social History Household Members: None Household Members Other:: Lives at [facility] Housing: Assisted Living Facility Do you presently have visiting nurse or other home services: Yes Alcohol intake: current Alcohol intake frequency: does not drink Patient Tobacco Use Status: Never used Tobacco Tobacco use type: Cigarette Cigarette Packs Per Day: 3 Cigarettes Per Day: 60.0 Years Smoked: 16 Second Hand Smoke Exposure: No Advance Directives: No Advance Directives Information Provided: Yes service: No Current occupational status: retired Sexual orientation: Straight/Heterosexual Meds Allergies Allergy/AdvReac Type Severity Reaction Status Date / Time trifluoperazine (From Allergy Unknown Verified 09/25/24 09:52 Stelazine) Active Medications: Current Medications Lactated Ringer's (Lr) 1,000 mls @ 50 mls/hr IVCONT .Q20H YURY Naloxone HCl (Naloxone Hcl 0.4 Mg/Ml Vial) 0.04 mg IVPUSH Q5M PRN PRN Reason: Excessive sedation or RR < 8 Home Medications ?Medication ?Instructions ?Recorded ?Confirmed ?Last Taken ?Type acetaminophen 325 mg tablet 650 mg PO Q6H PRN pain/fever 06/22/24 11/25/24 Unknown History hydroxyzine HCl 25 mg tablet 25 mg PO Q6H PRN Anxiety 06/22/24 11/25/24 Unknown History polyethylene glycol 3350 17 gram 17 g PO BEDTIME 06/22/24 11/25/24 06/21/24 20:00 History oral powder packet polyethylene glycol 3350 17 gram 17 g PO DAILY PRN Constipation 06/22/24 11/25/24 Unknown History oral powder packet sennosides 8.6 mg tablet (Senna 8.6 mg PO BEDTIME 06/22/24 11/25/24 06/21/24 20:00 History Lax) sennosides 8.6 mg tablet (senna) 8.6 mg PO DAILY PRN Constipation 06/22/24 11/25/24 Unknown History trazodone 50 mg tablet 50 mg PO BEDTIME 06/22/24 11/25/24 06/21/24 20:00 History trazodone 50 mg tablet 50 mg PO BEDTIME PRN Insomnia 06/22/24 11/25/24 Unknown History bisacodyl 10 mg rectal suppository 10 mg GA DAILY PRN Constipation 07/03/24 11/25/24 Unknown History (Dulcolax (bisacodyl)) magnesium hydroxide 400 mg/5 mL 5 ml PO DAILY PRN Constipation 07/03/24 11/25/24 Unknown History oral suspension (Milk of Magnesia) sennosides 8.6 mg tablet (Senna 8.6 mg PO BEDTIME 07/03/24 11/25/24 Unknown History Lax) sodium phosphates 19 gram-7 118 ml GA DAILY PRN Dehydration 07/03/24 11/25/24 Unknown History gram/118 mL enema (Fleet Enema) cephalexin 500 mg capsule 500 mg PO QID 08/13/24 11/25/24 Unknown History Exam Height,Weight and Vital Signs: Height 5 ft 6 in Weight 84.368 kg Airway Mallampati Class: II TM Dist: >3cm Neck ROM: Full Partial: Upper Heart: rrr Lungs: cta Assessment and Plan Assessment Anesthesia Assessment: Anesthesia Plan Discussed and Chart Reviewed Final Anesthetic Review Family History of Problems with Anesthesia: No History of Problems with Anesthesia: No NPO: Yes ASA Class: III Final Preanesthetic Review: No Changes in Pt Med Stat, Meds/Allgs Chart Reviewed and Consent Obtained/Reviewed Patient Risk: Intermediate Procedure Risk: Intermediate Anesthetic Plan Anesthetic Plan: GA Disposition: Standard PACU
--- NOTE | 2025-01-13 07:26 | MHC.SHP ---
Pre-Procedural Eval Section A - 24 Hr Update-Section A only Date of Service: 01/13/25 The patient is an INPATIENT: No Section B - Complete if H&P > 30 days Chief Complaint: depression Details of Present Illness: pt feeling better generally much dec psychoses Allergies: Allergies Allergy/AdvReac Type Severity Reaction Status Date / Time trifluoperazine (From Allergy Unknown Verified 09/25/24 09:52 Stelazine) Review of Systems Sugical H&P ROS: Negative: Constitution and Neurological and Yes, Specify: Psychiatric (some harry much dec) Exam Surgical H&P Exam: Normal: HEENT, Normal: Heart, Normal: Lungs and Normal: Neurological Plan Diagnosis/Plan: Unchanged I have reviewed the history and physical and performed a pertinent physical examination on my patient. No changes have occurred unless specified. Time Spent With Patient Time: Total time managing care of this patient today ____ minutes.
--- NOTE | 2025-01-13 07:43 | HO.ECTPROC ---
ECT Procedure Note Diagnosis/Treatment Date of Service: 01/13/25 Diagnosis: Schizoaffective Disorder Previous ECT Date: 01/06/25 Current Treatment Number: Other (20) Treatment: Maintenance Interval Clinical Notes: remains well treated in outpt setting gets some sx night before ect otherwise improved Time: Total time managing care of this patient today ____ minutes. ECT Settings Device: THYMATRON DGx Electrode Placement: Bifrontal Program/Pulse Width: 0.50 Energy Percent: 100 Seizure Duration By EEG (in seconds): 36 Medications Administration General Anesthetic: Etomidate (12) Muscle Relaxant: Succinylcholine (80) Ancillary Medications Anti-emetics: Zofran - Pre ECT Miscillaneous Medications: Propofol (30) Airway Management Airway Management: Bag Mask Ventilation Treatment Recommendations No Changes Recommended: No change Notes: will try 3 wk interval pt to call if problematic Pt Tolerated Procedure w/o Issue: Yes
== END 2025-01-13 08:57 | disposition home or self-care (01) ==
PROVIDERS: PCP Internal Medicine; Visit Provider Psychiatry & Neurology Psychiatry
PROC: (CPT 90870; principal; 2025-01-13 07:30)
DX: F25.8 Other schizoaffective disorders (principal); I12.9 Hypertensive chronic kidney disease with stage 1 through stage 4 chronic kidney disease, or unspecified chronic kidney disease; N18.30 Chronic kidney disease, stage 3 unspecified; R73.03 Prediabetes; D64.9 Anemia, unspecified; E78.2 Mixed hyperlipidemia; E03.9 Hypothyroidism, unspecified; G89.29 Other chronic pain; M54.50 Low back pain, unspecified; Z79.899 Other long term (current) drug therapy; Z88.8 Allergy status to other drugs, medicaments and biological substances
CPT/HCPCS: 90870; J0330; J2704

== ENCOUNTER → 2025-01-13 05:54 | Outpatient (BNV) | payer MEDICARE, MEDICAID, SELFPAY | PROVIDERS: PCP Internal Medicine; Visit Provider Psychiatry & Neurology Psychiatry | DX: F33.2 Major depressive disorder, recurrent severe without psychotic features (principal) | CPT/HCPCS: 90870 ==

== ENCOUNTER 2025-02-03 05:53 | Day surgery (SDC) | payer MEDICARE, MEDICAID, SELFPAY ==
--- OUTSIDE RECORDS SUMMARY | 2025-01-18 08:39 | XMS_ITS | Encounter Summary ---
Author Organization [facility] Address [address] [place] [address] Phone Care Team Providers Care Pourer Buggy Ladle Name Role Phone Al Alcantara MD Primary Care Provider Al Alcantara MD Primary Care Provider [phone] Callum Field MD Primary Care Provider [phone] Callum Field MD Primary Care Provider Callum Field MD Primary Care Provider Encounter Details Date Type Department Care Team (Latest Contact Info) Description 02/20/2017 Transcribe Orders [facility] 30 [place] [address] Vinay Serrano MD 50 [place], [place] [phone] Subchronic schizophrenia (Primary Dx) Social History Tobacco [...] Info) Description 02/09/2025 3:45 PM EDT Appointment [facility], [facility] - [facility] 30 [place] [address] Serafin Murray DO [address] [place] [address] documented as of this encounter Procedures Procedure Name Priority Date/Time Associated Diagnosis Comments CBC AND DIFFERENTIAL Routine 02/20/2017 11:31 AM EDT Subchronic schizophrenia documented in this encounter Results * (ABNORMAL) CBC and differential (02/20/2017 11:31 AM EDT) WBC 5.82 3.40 - 11.20 K/uL [facility] RBC 4.00 3.80 - 4.80 M/uL [facility] HGB 12.0 12.0 - 15.0 g/dL [facility] HCT 36.0 36.0 - 46.0 % [facility] PLT 218 130 - 400 K/uL [facility] MCV 90.0 79.0 - 98.0 fL [facility] MCH 30.0 27.0 - 34.8 pg [facility] MCHC 33.3 31.5 - 36.0 g/dL [facility] RDW 13.2 10.8 - 14.6 % [facility] MPV 10.7 9.4 - 12.4 fl [facility] NRBC 0.00 /100 WBCs [facility] ABSOLUTE NRBC 0.00 K/uL [facility] DIFF METHOD Auto [facility] NEUTS 52.6 45.30 - 77.70 % [facility] LYMPHS 29.9 12.30 - 39.70 % [facility] MONOS 8.1 4.10 - 12.80 % [facility] EOS 8.4(H) 0 - 7.2 % [facility] BASOS 0.7 0 - 2.80 % [facility] Granulocytes, immature (%) 0.3 0.0 - 0.9 % [facility] ABSOLUTE NEUTS 3.06 1.40 - 7.70 K/uL [facility] ABSOLUTE LYMPHS 1.74 0.60 - 3.20 K/uL [facility] ABSOLUTE MONOS 0.47 0.11 - 0.59 K/uL [facility] ABSOLUTE EOS 0.49 0.01 - 0.50 K/uL [facility] ABSOLUTE BASOS 0.04 0.00 - 0.08 K/uL [facility] Granulocytes, immature 0.02 0.00 - 0.05 K/uL [facility] Blood 02/20/2017 11:3 1 AM EDT 02/20/2017 11:34 AM EDT Vinay Serrano MD LAB BLOOD ORDERABLES Final Result Performing Organization Address City/State/[facility] Co de Phone Number [facility] 30 [place] [address] documented in this encounter Visit Diagnoses Diagnosis Subchronic schizophrenia- Primary Unspecified schizophrenia, subchronic condition documented in this encounter Additional Health Concerns Infection Onset Date Last Indicated Resolved Time CoV-Risk Comment:Neg covid 05/20/2022 05/21/2022 05/22/2022 6:[address] CoV-Risk 01/17/2024 01/17/2024 01/28/2024 1:22 AM EDT documented as of this encounter Care Teams Pourer Buggy Ladle Relationship Specialty Start Date End Date Al Alcantara MD [address] [place] [phone] [email or web address] PCP - General 02/04/17 06/09/19 Al Alcantara MD [address] [place] [address] [email or web address] PCP - General Family Medicine 06/10/19 09/28/19 Callum Field MD [address] [place] [phone] [email or web address] PCP - General Family Medicine 09/29/19 12/27/22 Callum Field MD [address] [place] [phone] PCP - General Family Medicine 12/28/22 12/23/23 Callum Field MD [address] [place] [phone] [email or web address] PCP - General Family Medicine 12/24/23 documented as of this encounter Additional Source Comments The information contained in this document represents components of the legal health record. It is not the complete legal health record.[facility]
--- OUTSIDE RECORDS SUMMARY | 2025-01-18 08:39 | XMS_ITS | Encounter Summary ---
Author Organization [facility] Address [address] [place] [address] Phone Care Team Providers Care French Translator Name Role Phone Al Alcantara MD Primary Care Provider [phone] Al Alcantara MD Primary Care Provider Callum Field MD Primary Care Provider Callum Field MD Primary Care Provider [phone] Callum Field MD Primary Care Provider [phone] Encounter Details Date Type Department Care Team (Latest Contact Info) Description 08/21/2017 Transcribe Orders [facility] Laboratory 30 [place] [address] Vinay Serrano MD 50 [place], [place] [phone] Subchronic schizophrenia (Primary Dx) Social History Tobacco [...] Info) Description 02/09/2025 3:45 PM EDT Appointment [facility], [facility] [address] [place] [address] Serafin Murray DO [address] [place] [address] documented as of this encounter Visit Diagnoses Diagnosis Subchronic schizophrenia- Primary Unspecified schizophrenia, subchronic condition documented in this encounter Additional Health Concerns Infection Onset Date Last Indicated Resolved Time CoV-Risk Comment:Neg covid 05/20/2022 05/21/2022 05/22/2022 6:[address] CoV-Risk 01/17/2024 01/17/2024 01/28/2024 1:22 AM EDT documented as of this encounter Care Teams French Translator Relationship Specialty Start Date End Date Al Alcantara MD [address] [place] [address] [email or web address] PCP - General 02/04/17 06/09/19 Al Alcantara MD [address] [place] [address] [email or web address] PCP - General Family Medicine 06/10/19 09/28/19 Callum Field MD [address] [place] [phone] PCP - General Family Medicine 09/29/19 12/27/22 Callum Field MD [address] [place] [phone] [email or web address] PCP - General Family Medicine 12/28/22 12/23/23 Callum Field MD [address] [place] [phone] PCP - General Family Medicine 12/24/23 documented as of this encounter Additional Source Comments The information contained in this document represents components of the legal health record. It is not the complete legal health record.[facility]
--- OUTSIDE RECORDS SUMMARY | 2025-01-18 08:39 | XMS_ITS | Encounter Summary ---
Author Organization [facility] Address [address] [place] [address] Phone Care Team Providers Care Roving Winder Name Role Phone Callum Field MD Primary Care Provider [phone] Callum Field MD Primary Care Provider [phone] Callum Field MD Primary Care Provider [phone] Encounter Details Date Type Department Care Team (Late st Contact Info) Description 05/20/2022 Procedure Pass [facility], Ct Scan - [facility] 30 [place], [place] [phone] Social History Tobacco Use Types Packs/Day Years [...] 05/21/2022 5:07 PM Rena Rodriguez RN * [place] Suicide Severity Rating Scale (Screener/Recent Self-Report) Question [...] Info) Description 02/09/2025 3:45 PM EDT Appointment [facility], Bone Density - [facility] [address] [place] [address] Serafin Murray DO [address] [place] [address] documented as of this encounter Visit Diagnoses Not on filedocumented in this encounter Additional Health Concerns Infection Onset Date Last Indicated Resolved Time CoV-Risk Comment:Neg covid 05/20/2022 05/21/2022 05/22/2022 6:[address] CoV-Risk 01/17/2024 01/17/2024 01/28/2024 1:22 AM EDT documented as of this encounter Care Teams Roving Winder Relationship Specialty Start Date End Date Callum Field MD PCP - General Family Medicine 09/29/19 12/27/22 Callum Field MD PCP - General Family Medicine 12/28/22 12/23/23 Callum Field MD [address] [place] [address] [email or web address] PCP - General Family Medicine 12/24/23 documented as of this encounter Additional Source Comments The information contained in this document represents components of the legal health record. It is not the complete legal health record.[facility]
--- OUTSIDE RECORDS SUMMARY | 2025-01-18 08:40 | XMS_ITS | Encounter Summary ---
Author Organization [facility] Address [address] [place] [address] Phone Care Team Providers Care Crop Scout Name Role Phone Callum Field MD Primary Care Provider [phone] Callum Field MD Primary Care Provider [phone] Callum Field MD Primary Care Provider [phone] Encounter Details Date Type Department Care Team (Late st Contact Info) Description 09/25/2022 Transcribe Orders Virtual Department 30 [place] [address] Mei Rodriguez MD [address] [place] [address] [email or web address] Osteopenia, unspecified location Social History Tobacco Use [...] 02/09/2025 3:45 PM EDT Appointment [facility], Bone Density - [facility] [address] [place] [address] Serafin Murray DO [address] [place] [address] documented as of this encounter Visit Diagnoses Diagnosis Osteopenia, unspecified location documented in this encounter Additional Health Concerns Infection Onset Date Last Indicated Resolved Time CoV-Risk 01/17/2024 01/17/2024 01/28/2024 1:22 AM EDT documented as of this encounter Care Teams Crop Scout Relationship Specialty Start Date End Date Callum Field MD PCP - General Family Medicine 09/29/19 12/27/22 Callum Field MD PCP - General Family Medicine 12/28/22 12/23/23 Callum Field MD [address] [place] [phone] PCP - General Family Medicine 12/24/23 documented as of this encounter Additional Source Comments The information contained in this document represents components of the legal health record. It is not the complete legal health record.[facility]
--- OUTSIDE RECORDS SUMMARY | 2025-01-18 08:40 | XMS_ITS | Encounter Summary ---
Author Organization [facility] Address [address] [place] [address] Phone Care Team Providers Care Pattern And Chain Maker Name Role Phone Al Alcantara MD Primary Care Provider [phone] Al Alcantara MD Primary Care Provider Callum Field MD Primary Care Provider [phone] Callum Field MD Primary Care Provider Callum Field MD Primary Care Provider [phone] Encounter Details Date Type Department Care Team (Late st Contact Info) Description 03/09/2017 Transcribe Orders [facility] Laboratory [address] [place] [address] Vinay Serrano MD [address] [place] [address] [id number] Drug therapy (Primary Dx) Social History Tobacco [...] Info) Description 02/09/2025 3:45 PM EDT Appointment [facility], [facility] - [facility] [address] [place] [address] Serafin Murray DO [address] [place] [address] documented as of this encounter Procedures Procedure Name Priority Date/Time Associated Diagnosis Comments CBC AND DIFFERENTIAL Routine 03/09/2017 10:16 AM EST Drug therapy documented in this encounter Results * (ABNORMAL) CBC and differential (03/09/2017 10:16 AM EST) WBC 5.93 3.40 - 11.20 K/uL [facility] RBC 3.86 3.80 - 4.80 M/uL [facility] HGB 11.7(L) 12.0 - 15.0 g/dL [facility] HCT 34.8(L) 36.0 - 46.0 % [facility] PLT 238 130 - 400 K/uL [facility] MCV 90.2 79.0 - 98.0 fL [facility] MCH 30.3 27.0 - 34.8 pg [facility] MCHC 33.6 31.5 - 36.0 g/dL [facility] RDW 13.2 10.8 - 14.6 % [facility] MPV 10.2 9.4 - 12.4 fl [facility] NRBC 0.00 /100 WBCs [facility] ABSOLUTE NRBC 0.00 K/uL [facility] DIFF METHOD Auto [facility] NEUTS 54.0 45.30 - 77.70 % [facility] LYMPHS 30.5 12.30 - 39.70 % [facility] MONOS 8.6 4.10 - 12.80 % [facility] EOS 5.4 0 - 7.2 % [facility] BASOS 1.3 0 - 2.80 % [facility] Granulocytes, immature (%) 0.2 0.0 - 0.9 % [facility] ABSOLUTE NEUTS 3.20 1.40 - 7.70 K/uL [facility] ABSOLUTE LYMPHS 1.81 0.60 - 3.20 K/uL [facility] ABSOLUTE MONOS 0.51 0.11 - 0.59 K/uL [facility] ABSOLUTE EOS 0.32 0.01 - 0.50 K/uL [facility] ABSOLUTE BASOS 0.08 0.00 - 0.08 K/uL [facility] Granulocytes, immature 0.01 0.00 - 0.05 K/uL [facility] Blood 03/09/2017 10:1 6 AM EST 03/09/2017 10:18 AM EST Vinay Serrano MD LAB BLOOD ORDERABLES Final Result Performing Organization Address City/State/[facility] Co de Phone Number [facility] [address] [place] [address] documented in this encounter Visit Diagnoses Diagnosis Drug therapy- Primary Encounter for other specified aftercare documented in this encounter Additional Health Concerns Infection Onset Date Last Indicated Resolved Time CoV-Risk Comment:Neg covid 05/20/2022 05/21/2022 05/22/2022 6:[address] CoV-Risk 01/17/2024 01/17/2024 01/28/2024 1:22 AM EDT documented as of this encounter Care Teams Pattern And Chain Maker Relationship Specialty Start Date End Date Al Alcantara MD [address] [place] [address] [email or web address] PCP - General 02/04/17 06/09/19 Al Alcantara MD [address] [place] [address] [email or web address] PCP - General Family Medicine 06/10/19 09/28/19 Callum Field MD [address] [place] [address] [email or web address] PCP - General Family Medicine 09/29/19 12/27/22 Callum Field MD [address] [place] [phone] PCP - General Family Medicine 12/28/22 12/23/23 Callum Field MD [address] [place] [address] [email or web address] PCP - General Family Medicine 12/24/23 documented as of this encounter Additional Source Comments The information contained in this document represents components of the legal health record. It is not the complete legal health record.[facility]
--- OUTSIDE RECORDS SUMMARY | 2025-01-18 08:40 | XMS_ITS | Encounter Summary ---
Author Organization [facility] Address [address] [place] [address] Phone Care Team Providers Care Community Relations Representative Name Role Phone Al Alcantara MD Primary Care Provider Al Alcantara MD Primary Care Provider [phone] Callum Field MD Primary Care Provider [phone] Callum Field MD Primary Care Provider [phone] Callum Field MD Primary Care Provider [phone] Encounter Details Date Type Department Care Team (Latest Contact Info) Description 05/01/2017 Transcribe Orders [facility] Laboratory [address] [place] [address] Vinay Serrano MD [address] [place], [place] [phone] Subchronic schizophrenia (Primary Dx) Social History Tobacco [...] PM EDT Appointment [facility], [facility] 30 [place] [address] Trevor DO Serafin [address] [place] [address] documented as of this encounter Procedures Procedure Name Priority Date/Time Associated Diagnosis Comments CBC AND DIFFERENTIAL Routine 05/01/2017 10:51 AM EST Subchronic schizophrenia documented in this encounter Results * (ABNORMAL) CBC and differential (05/01/2017 10:51 AM EST) WBC 6.68 3.40 - 11.20 K/uL [facility] RBC 3.53(L) 3.80 - 4.80 M/uL [facility] HGB 10.6(L) 12.0 - 15.0 g/dL [facility] HCT 33.0(L) 36.0 - 46.0 % [facility] PLT 351 130 - 400 K/uL [facility] MCV 93.5 79.0 - 98.0 fL [facility] MCH 30.0 27.0 - 34.8 pg [facility] MCHC 32.1 31.5 - 36.0 g/dL [facility] RDW 14.2 10.8 - 14.6 % [facility] MPV 10.0 9.4 - 12.4 [facility] NRBC 0.00 /100 WBCs [facility] ABSOLUTE NRBC 0.00 K/uL [facility] DIFF METHOD Auto [facility] NEUTS 64.6 45.30 - 77.70 % [facility] LYMPHS 20.7 12.30 - 39.70 % [facility] MONOS 9.1 4.10 - 12.80 % [facility] EOS 4.3 0 - 7.2 % [facility] BASOS 1.2 0 - 2.80 % [facility] Granulocytes, immature (%) 0.1 0.0 - 0.9 % [facility] ABSOLUTE NEUTS 4.31 1.40 - 7.70 K/uL [facility] ABSOLUTE LYMPHS 1.38 0.60 - 3.20 K/uL [facility] ABSOLUTE MONOS 0.61(H) 0.11 - 0.59 K/uL [facility] ABSOLUTE EOS 0.29 0.01 - 0.50 K/uL [facility] ABSOLUTE BASOS 0.08 0.00 - 0.08 K/uL [facility] Granulocytes, immature 0.01 0.00 - 0.05 K/uL [facility] Blood 05/01/2017 10:5 1 AM EST 05/01/2017 10:53 AM EST us Vinay Serrano MD LAB BLOOD ORDERABLES Final Result [facility] 30 [place] [address] documented in this encounter Visit Diagnoses Diagnosis Subchronic schizophrenia- Primary Unspecified schizophrenia, subchronic condition documented in this encounter Additional Health Concerns Infection Onset Date Last Indicated Resolved Time CoV-Risk Comment:Neg covid 05/20/2022 05/21/2022 05/22/2022 6:[address] CoV-Risk 01/17/2024 01/17/2024 01/28/2024 1:22 AM EDT documented as of this encounter Care Teams Community Relations Representative Relationship Specialty Start Date End Date Al Alcantara MD [address] [place] [address] [email or web address] PCP - General 02/04/17 06/09/19 Al Alcantara MD [address] [place] [phone] [email or web address] PCP - General Family Medicine 06/10/19 09/28/19 Callum Field MD [address] [place] [address] [email or web address] PCP - General Family Medicine 09/29/19 12/27/22 Callum Field MD [address] [place] [phone] [email or web address] PCP - General Family Medicine 12/28/22 12/23/23 Callum Field MD [address] [place] [phone] [email or web address] PCP - General Family Medicine 12/24/23 documented as of this encounter Additional Source Comments The information contained in this document represents components of the legal health record. It is not the complete legal health record.[facility]
--- OUTSIDE RECORDS SUMMARY | 2025-01-18 08:40 | XMS_ITS | Clinical Summary ---
Author Organization [facility] Address [address] [facility] [address] [place] [address] Phone Care Team Providers Care Pattern Carrier Name Role Phone Callum Field MD Primary Care Provider [phone] Allergies Active Allergy Reactions Criticality Noted Date [...] daily as needed (Anxiety). Last filled at [facility], [place] 01/06/24 01/06/2024 Active cloZAPine (CLOZARIL) 50 MG [...] Info) Description 02/09/2025 3:45 PM EDT Appointment [facility], Bone Density - [facility] 30 [place] [address] Serafin Murray DO [address] [place] [address] Health Maintenance Due Date Last Done Comments [...] mellitus with other specified complication, unspecified whether halfway insulin use Hypothyroidism, unspecified type Schizophrenia, unspecified type COMPREHENSIVE METABOLIC PANEL Routine 06/25/2024 5:10 AM EST Diverticulitis Other specified diabetes mellitus with other specified complication, unspecified whether halfway insulin use ENDOSCOPY, COLON 03/05/2018 9:09 AM EST from Last 3 Months or Most Recently Relevant to Health Maintenance Results * (ABNORMAL) CBC and differential (08/25/2024 6:00 AM EDT) WBC 5.82 4.00 - 11.00 K/uL [facility] RBC 3.61(L) 4.00 - 5.20 M/uL [facility] HGB 10.7(L) 12.0 - 16.0 g/dL [facility] HCT 32.9(L) 36.0 - 46.0 % [facility] PLT 208 150 - 450 K/uL [facility] MCV 91.1 80.0 - 100.0 fL [facility] MCH 29.6 27.0 - 31.0 pg [facility] MCHC 32.5 32.0 - 36.0 g/dL [facility] RDW 14.4 11.5 - 14.5 % [facility] MPV 10.2 8.4 - 12.0 fL [facility] NRBC 0.00 0.00 /100 WBCs [facility] ABSOLUTE NRBC 0.00 0.00 K/uL [facility] DIFF METHOD Auto [facility] NEUTS 56.5 48.0 - 76.0 % [facility] LYMPHS 28.0 18.0 - 41.0 % [facility] MONOS 10.1 4.0 - 11.0 % [facility] EOS 4.3 0.0 - 5.0 % [facility] BASOS 0.9 0.0 - 1.5 % [facility] Granulocytes, immature (%) 0.2 0.0 - 0.9 % [facility] ABSOLUTE NEUTS 3.29 1.92 - 7.60 K/uL [facility] ABSOLUTE LYMPHS 1.63 0.72 - 4.10 K/uL [facility] ABSOLUTE MONOS 0.59 0.16 - 1.10 K/uL [facility] ABSOLUTE EOS 0.25 0.00 - 0.50 K/uL [facility] ABSOLUTE BASOS 0.05 0.00 - 0.15 K/uL [facility] Granulocytes, immature 0.01 0.00 - 0.09 K/uL [facility] Blood 08/25/2024 6:00 AM EDT 08/25/2024 8:25 AM EDT us Vinay Serrano MD LAB BLOOD ORDERABLES Final Result Performing Organization Address [facility]/ZIP Co de Phone Number [address] [address] * (ABNORMAL) TSH (07/01/2024 5:45 AM EDT) Pathologist [facility] TSH 10.70(H) 0.27 - 4.20 uIU/mL [facility] Blood 07/01/2024 5:45 AM EDT 07/01/2024 8:10 AM EDT us Katelynn Marsh NP LAB BLOOD ORDERABLES Final Resul t Performing Organization Address [facility]/ZIP Co de Phone Number [address] [address] * (ABNORMAL) Comprehensive metabolic panel (06/25/2024 5:10 AM EST) Pathologist [facility] SODIUM 144 133 - 146 mmol/L [facility] POTASSIUM 4.8 3.3 - 5.1 mmol/L [facility] CHLORIDE 108 96 - 108 mmol/L [facility] CO2 25 21 - 35 mmol/L [facility] BUN 25(H) 6 - 19 mg/dL [facility] CREATININE 1.20 0.5 - 1.5 mg/dL [facility] GLUCOSE 100(H) 70 - 99 mg/dL [facility] ALBUMIN 3.5(L) 3.9 - 4.8 g/dL [facility] TOTAL PROTEIN 5.3(L) 6.5 - 8.0 g/dL [facility] CALCIUM 8.8 8.4 - 10.3 mg/dL [facility] ALKALINE PHOSPHATASE 143(H) 39 - 117 U/L [facility] TOTAL BILIRUBIN 0.3 0.0 - 1.2 mg/dL [facility] AST 21 0 - 37 U/L [facility] ALT 23 0 - 40 U/L [facility] GLOBULIN 1.8 1 - 4.8 g/dL [facility] EGFR 48(L) >59 mL/min/1.7 3m2 [facility] Comment:Estimated glomerular filtration rate calculated using the CKD-EPI refit equation. ANION GAP 16 10 - 20 mmol/L [facility] Blood 06/25/2024 5:10 AM EST 06/25/2024 8:41 AM EST us Katelynn Marsh WEB DESIGNER DEVELOPER LAB BLOOD ORDERABLES Final Resul t Performing Organization Address City/State/[facility] Co de Phone Number [address] [address] * ENDOSCOPY, COLON (03/05/2018 9:09 AM EST) Narrative Transcriptions Shan Cote MD - 03/05/2018 9:09 AM EST Patient Name: Deedee Holbrook Attending MD:: SHAN COTE MD Procedure Date: 03/05/2018 9:09 AM Date of : 1950 Age: 67 Admit Type: Outpatient Gender: Female Room: [facility] 05 Referring MD: SUZY LUNDY MD Exam [...] 9:09 AM Procedure Code(s): --- Professional --- 42559, Colonoscopy, flexible; with biopsy, single or multiple --- Technical --- 37982, Colonoscopy, flexible; with biopsy, single or multiple [...] perforation orabscess without bleeding CPT copyright 2016 [employer]. All rights reserved. The codes documented in this report are preliminary and upon inpatient coder reviewmay be revised to meet current compliance requirements. [address] [place] [address] Suzy Lundy MD GI PROCEDURE ORDERABLES Final R esult from Last 3 Months or Most Recently Relevant to Health Maintenance Insurance [place] BL[place] BL[place] [address] [place] Advance Directives For more information, please contact: [phone] (9AM - 5PM [place], Saturday-Saturday) Documents on File Type Date Recorded Patient Language Pathologist Expl anation Healthcare Proxy 05/25/2022 2:05 PM * Full Code (Latest Code Status on File) Date Activated Date Inactivated Comments 05/22/2022 12:26 AM Question Answer Comments Code Status Confirmed With: Patient * Full Code (Confirmed) Date Activated Date Inactivated Comments 04/14/2017 4:14 AM 04/19/2017 3:46 PM Question Answer Comments Code Discussion Comments: Patient Care Teams Pattern Carrier Relationship Specialty Start Date End Date Callum Field MD [address] [place] [address] [email or web address] PCP - General Family Medicine 12/24/23 Additional Source Comments The information contained in this document represents components of the legal health record. It is not the complete legal health record.[facility]
--- OUTSIDE RECORDS SUMMARY | 2025-01-18 08:40 | XMS_ITS | Encounter Summary ---
Author Organization [facility] Address [address] [place] [address] Phone Care Team Providers Care Emergency Medical Services Coordinator Name Role Phone Callum Field MD Primary Care Provider [phone] Callum Field MD Primary Care Provider [phone] Callum Field MD Primary Care Provider [phone] Encounter Details Date Type Department Care Team (Late st Contact Info) Description 05/22/2022 Procedure Pass [facility], Ct Scan - [address] [address] Social History Tobacco Use Types Packs/Day Years [...] Info) Description 02/09/2025 3:45 PM EDT Appointment [facility], Bone Density - [address] [address] Serafin Murray DO [address] [place] [address] documented as of this encounter Visit Diagnoses Not on filedocumented in this encounter Additional Health Concerns Infection Onset Date Last Indicated Resolved Time CoV-Risk Comment:Neg covid 05/20/2022 05/21/2022 05/22/2022 6:[address] CoV-Risk 01/17/2024 01/17/2024 01/28/2024 1:22 AM EDT documented as of this encounter Care Teams Emergency Medical Services Coordinator Relationship Specialty Start Date End Date Callum Field MD [email or web address] PCP - General Family Medicine 09/29/19 12/27/22 Callum Field MD PCP - General Family Medicine 12/28/22 12/23/23 Callum Field MD [address] [place] [address] [email or web address] PCP - General Family Medicine 12/24/23 documented as of this encounter Additional Source Comments The information contained in this document represents components of the legal health record. It is not the complete legal health record.[facility]
--- OUTSIDE RECORDS SUMMARY | 2025-01-18 08:40 | XMS_ITS | Encounter Summary ---
Author Organization [facility] Address [address] [place] [address] Phone Care Team Providers Care Special Procedures Technologist Name Role Phone Al Alcantara MD Primary Care Provider [phone] Al Alcantara MD Primary Care Provider Callum Field MD Primary Care Provider [phone] Callum Field MD Primary Care Provider Callum Field MD Primary Care Provider [phone] Encounter Details Date Type Department Care Team (Latest Contact Info) Description 11/12/2017 Transcribe Orders [facility] Laboratory [address] [place] [address] Vinay Serrano MD [address] [place], [place] [phone] Subchronic schizophrenia (Primary Dx) Social History Tobacco [...] Info) Description 02/09/2025 3:45 PM EDT Appointment [facility], [facility] [address] [place] [address] Serafin Murray DO [address] [place] [address] documented as of this encounter Visit Diagnoses Diagnosis Subchronic schizophrenia- Primary Unspecified schizophrenia, subchronic condition documented in this encounter Additional Health Concerns Infection Onset Date Last Indicated Resolved Time CoV-Risk Comment:Neg covid 05/20/2022 05/21/2022 05/22/2022 6:[address] CoV-Risk 01/17/2024 01/17/2024 01/28/2024 1:22 AM EDT documented as of this encounter Care Teams Special Procedures Technologist Relationship Specialty Start Date End Date Al Alcantara MD [address] [place] [phone] [email or web address] PCP - General 02/04/17 06/09/19 Al Alcantara MD [address] [place] [phone] [email or web address] PCP - General Family Medicine 06/10/19 09/28/19 Callum Field MD [address] [place] [address] [email or web address] PCP - General Family Medicine 09/29/19 12/27/22 Callum Field MD [address] [place] [phone] [email or web address] PCP - General Family Medicine 12/28/22 12/23/23 Callum Field MD [address] [place] [phone] [email or web address] PCP - General Family Medicine 12/24/23 documented as of this encounter Additional Source Comments The information contained in this document represents components of the legal health record. It is not the complete legal health record.[facility]
--- OUTSIDE RECORDS SUMMARY | 2025-01-18 08:40 | XMS_ITS | Encounter Summary ---
Author Organization [facility] Address [address] [place] [address] Phone Care Team Providers Care Marketing Admin Name Role Phone Al Alcantara MD Primary Care Provider [phone] Al Alcantara MD Primary Care Provider [phone] Callum Field MD Primary Care Provider [phone] Callum Field MD Primary Care Provider [phone] Callum Field MD Primary Care Provider Encounter Details Date Type Department Care Team (Latest Contact Info) Description 04/02/2017 Transcribe Orders [facility] Laboratory [address] [place] [address] Vinay Serrano MD [address] [place] [address] [phone] Subchronic schizophrenia (Primary Dx) Social History Tobacco [...] Appointment [facility], [facility] [address] [place] [address] Serafin Murray DO [address] [place] [phone] documented as of this encounter Procedures Procedure Name Priority Date/Time Associated Diagnosis Comments CBC AND DIFFERENTIAL Routine 04/02/2017 2:23 PM EST Subchronic schizophrenia documented in this encounter Results * (ABNORMAL) CBC and differential (04/02/2017 2:23 PM EST) WBC 7.60 3.40 - 11.20 K/uL [facility] RBC 3.80 3.80 - 4.80 M/uL [facility] HGB 11.4(L) 12.0 - 15.0 g/dL [facility] HCT 34.4(L) 36.0 - 46.0 % [facility] PLT 240 130 - 400 K/uL [facility] MCV 90.5 79.0 - 98.0 fL [facility] MCH 30.0 27.0 - 34.8 pg [facility] MCHC 33.1 31.5 - 36.0 g/dL [facility] RDW 13.3 10.8 - 14.6 % [facility] MPV 10.7 9.4 - 12.4 fl [facility] NRBC 0.00 /100 WBCs [facility] ABSOLUTE NRBC 0.00 K/uL [facility] DIFF METHOD Auto [facility] NEUTS 63.0 45.30 - 77.70 % [facility] LYMPHS 22.0 12.30 - 39.70 % [facility] MONOS 9.2 4.10 - 12.80 % [facility] EOS 4.7 0 - 7.2 % [facility] BASOS 0.8 0 - 2.80 % [facility] Granulocytes, immature (%) 0.3 0.0 - 0.9 % [facility] ABSOLUTE NEUTS 4.79 1.40 - 7.70 K/uL [facility] ABSOLUTE LYMPHS 1.67 0.60 - 3.20 K/uL [facility] ABSOLUTE MONOS 0.70(H) 0.11 - 0.59 K/uL [facility] ABSOLUTE EOS 0.36 0.01 - 0.50 K/uL [facility] ABSOLUTE BASOS 0.06 0.00 - 0.08 K/uL [facility] Granulocytes, immature 0.02 0.00 - 0.05 K/uL [facility] Blood 04/02/2017 2:23 PM EST 04/02/2017 2:25 PM EST Vinay Serrano MD LAB BLOOD ORDERABLES Final Result Performing Organization Address City/State/[facility] Co de Phone Number [facility] [address] [place] [address] documented in this encounter Visit Diagnoses Diagnosis Subchronic schizophrenia- Primary Unspecified schizophrenia, subchronic condition documented in this encounter Additional Health Concerns Infection Onset Date Last Indicated Resolved Time CoV-Risk Comment:Neg covid 05/20/2022 05/21/2022 05/22/2022 6:[address] CoV-Risk 01/17/2024 01/17/2024 01/28/2024 1:22 AM EDT documented as of this encounter Care Teams Marketing Admin Relationship Specialty Start Date End Date Al Alcantara MD [address] [place] [address] [email or web address] PCP - General 02/04/17 06/09/19 Al Alcantara MD [address] [place] [address] 288[address] [email or web address] PCP - General Family Medicine 06/10/19 09/28/19 Callum Field MD [address] [place] [address] [email or web address] PCP - General Family Medicine 09/29/19 12/27/22 Callum Field MD [address] [place] [address] PCP - General Family Medicine 12/28/22 12/23/23 Callum Field MD [address] [place] [address] [email or web address] PCP - General Family Medicine 12/24/23 documented as of this encounter Additional Source Comments The information contained in this document represents components of the legal health record. It is not the complete legal health record.[facility]
--- OUTSIDE RECORDS SUMMARY | 2025-01-18 08:40 | XMS_ITS | Encounter Summary ---
Author Organization [facility] Address [address] [place] [address] Phone Care Team Providers Care Remediation Bioanalytics Consultant Name Role Phone Callum Field MD Primary Care Provider [phone] Callum Field MD Primary Care Provider Callum Field MD Primary Care Provider [phone] Encounter Details Date Type Department Care Team (Late st Contact Info) Description 09/25/2022 Ancillary Orders Virtual Department [address] [place] [address] Mei Rodriguez MD [address] [place] [address] [email or web address] Osteopenia, unspecified location; Other specified disorders of [...] EDT Appointment [facility], Bone Density - [facility] [address] [place] [address] eSrafin Murray DO [address] [place] [address] documented as of this encounter Visit Diagnoses Diagnosis Osteopenia, unspecified location Other specified disorders of bone density and structure, unspecified site documented in this encounter Additional Health Concerns Infection Onset Date Last Indicated Resolved Time CoV-Risk 01/17/2024 01/17/2024 01/28/2024 1:22 AM EDT documented as of this encounter Care Teams Remediation Bioanalytics Consultant Relationship Specialty Start Date End Date Callum Field MD PCP - General Family Medicine 09/29/19 12/27/22 Callum Field MD PCP - General Family Medicine 12/28/22 12/23/23 Callum Field MD [address] [place] [address] PCP - General Family Medicine 12/24/23 documented as of this encounter Additional Source Comments The information contained in this document represents components of the legal health record. It is not the complete legal health record.[facility]
--- OUTSIDE RECORDS SUMMARY | 2025-01-18 08:40 | XMS_ITS | Encounter Summary ---
Author Organization [facility] Address [address] [place] [address] Phone Care Team Providers Care Inspector Of Weights And Measures Name Role Phone Al Alcantara MD Primary Care Provider Al Alcantara MD Primary Care Provider Callum Field MD Primary Care Provider [phone] Callum Field MD Primary Care Provider [phone] Callum Field MD Primary Care Provider Encounter Details Date Type Department Care Team (Latest Contact Info) Description 07/23/2017 Transcribe Orders [facility] Laboratory [address] [place] [address] Vinay Serrano MD [address] [place], [place] [phone] Subchronic schizophrenia (Primary Dx) Social History Tobacco [...] Appointment [facility], [facility] [address] [place] [address] Murray, Serafin, [address] [place] [address] documented as of this encounter Results * (ABNORMAL) CBC and differential (07/23/2017 1:16 PM EDT) WBC 7.36 3.40 - 11.20 K/uL [facility] RBC 3.69(L) 3.80 - 4.80 M/uL [facility] HGB 11.3(L) 12.0 - 15.0 g/dL [facility] HCT 33.3(L) 36.0 - 46.0 % [facility] PLT 261 130 - 400 K/uL [facility] MCV 90.2 79.0 - 98.0 fL [facility] MCH 30.6 27.0 - 34.8 pg [facility] MCHC 33.9 31.5 - 36.0 g/dL [facility] RDW 13.4 10.8 - 14.6 % [facility] MPV 10.6 9.4 - 12.4 fl [facility] NRBC 0.00 /100 WBCs [facility] ABSOLUTE NRBC 0.00 K/uL [facility] DIFF METHOD Auto [facility] NEUTS 71.9 45.30 - 77.70 % [facility] LYMPHS 18.2 12.30 - 39.70 % [facility] MONOS 7.1 4.10 - 12.80 % [facility] EOS 1.8 0 - 7.2 % [facility] BASOS 0.7 0 - 2.80 % [facility] Granulocytes, immature (%) 0.3 0.0 - 0.9 % [facility] ABSOLUTE NEUTS 5.30 1.40 - 7.70 K/uL [facility] ABSOLUTE LYMPHS 1.34 0.60 - 3.20 K/uL [facility] ABSOLUTE MONOS 0.52 0.11 - 0.59 K/uL [facility] ABSOLUTE EOS 0.13 0.01 - 0.50 K/uL [facility] ABSOLUTE BASOS 0.05 0.00 - 0.08 K/uL [facility] Granulocytes, immature 0.02 0.00 - 0.05 K/uL [facility] Blood 07/23/2017 1:16 PM EDT 07/23/2017 1:18 PM EDT Vinay Serrano MD LAB BLOOD ORDERABLES Final Result [facility] 30 [place] [address] documented in this encounter Visit Diagnoses Diagnosis Subchronic schizophrenia- Primary Unspecified schizophrenia, subchronic condition documented in this encounter Additional Health Concerns Infection Onset Date Last Indicated Resolved Time CoV-Risk Comment:Neg covid 05/20/2022 05/21/2022 05/22/2022 6:[address] CoV-Risk 01/17/2024 01/17/2024 01/28/2024 1:22 AM EDT documented as of this encounter Care Teams Inspector Of Weights And Measures Relationship Specialty Start Date End Date Al Alcantara MD [address] [place] [address] [email or web address] PCP - General 02/04/17 06/09/19 Al Alcantara MD [address] [place] [address] [email or web address] PCP - General Family Medicine 06/10/19 09/28/19 Callum Field MD [address] [place] [address] [email or web address] PCP - General Family Medicine 09/29/19 12/27/22 Callum Field MD [address] [place] [address] PCP - General Family Medicine 12/28/22 12/23/23 Callum Field MD [address] [place] [address] [email or web address] PCP - General Family Medicine 12/24/23 documented as of this encounter Additional Source Comments The information contained in this document represents components of the legal health record. It is not the complete legal health record.[facility]
--- OUTSIDE RECORDS SUMMARY | 2025-01-18 08:40 | XMS_ITS | Encounter Summary ---
Author Organization [facility] Address [address] [place] [address] Phone Care Team Providers Care Marketing Research Analyst Name Role Phone Callum Field MD Primary Care Provider [phone] Encounter Details Date Type Department Care Team (Latest Contact Info) Description 09/07/2024 Transcribe Orders Virtual Department 30 [place] [address] Serafin Murray DO [address] [place] [address] Asymptomatic menopausal state (Primary Dx) Social History [...] Info) Description 02/09/2025 3:45 PM EDT Appointment [facility], Bone Density - [address] [address] Serafin Murray DO [address] [place] [address] Scheduled Orders Name Type Priority Associated Diagnoses Orde r Schedule DXA Screening Imaging Routine Asymptomatic menopausal state Expected: 10/07/2024, Expires: 09/07/2025 documented as of this encounter Visit Diagnoses Diagnosis Asymptomatic menopausal state- Primary documented in this encounter Care Teams Marketing Research Analyst Relationship Specialty Start Date End Date Callum Field MD [address] [place] [phone] [email or web address] PCP - General Family Medicine 12/24/23 documented as of this encounter Additional Source Comments The information contained in this document represents components of the legal health record. It is not the complete legal health record.[facility]
--- OUTSIDE RECORDS SUMMARY | 2025-01-18 08:40 | XMS_ITS | Encounter Summary ---
Author Organization [facility] Address [address] [address] Phone Care Team Providers Care Pawn Shop Keeper Name Role Phone Al Alcantara MD Primary Care Provider [phone] Al Alcantara MD Primary Care Provider [phone] Callum Field MD Primary Care Provider [phone] Callum Field MD Primary Care Provider [phone] Callum Field MD Primary Care Provider [phone] Encounter Details Date Type Department Care Team (Latest Contact Info) Description 05/28/2017 Transcribe Orders [facility] Laboratory [address] [place] [address] Vinay Serrano MD [address] [place], [place] [phone] Chronic schizophrenia (Primary Dx) Social History Tobacco [...] 02/09/2025 3:45 PM EDT Appointment [facility], [facility] [address] [place] [address] Murray, DO Serafin [address] [place] [address] documented as of this encounter Results * (ABNORMAL) CBC and differential (05/28/2017 3:23 PM EST) WBC 7.56 3.40 - 11.20 K/uL [facility] RBC 3.57(L) 3.80 - 4.80 M/uL [facility] HGB 10.8(L) 12.0 - 15.0 g/dL [facility] HCT 33.1(L) 36.0 - 46.0 % [facility] PLT 258 130 - 400 K/uL [facility] MCV 92.7 79.0 - 98.0 fL [facility] MCH 30.3 27.0 - 34.8 pg [facility] MCHC 32.6 31.5 - 36.0 g/dL [facility] RDW 13.9 10.8 - 14.6 % [facility] MPV 10.2 9.4 - 12.4 fl [facility] NRBC 0.00 /100 WBCs [facility] ABSOLUTE NRBC 0.00 K/uL [facility] DIFF METHOD Auto [facility] NEUTS 71.5 45.30 - 77.70 % [facility] LYMPHS 19.8 12.30 - 39.70 % [facility] MONOS 6.5 4.10 - 12.80 % [facility] EOS 1.5 0 - 7.2 % [facility] BASOS 0.4 0 - 2.80 % [facility] Granulocytes, immature (%) 0.3 0.0 - 0.9 % [facility] ABSOLUTE NEUTS 5.41 1.40 - 7.70 K/uL [facility] ABSOLUTE LYMPHS 1.50 0.60 - 3.20 K/uL [facility] ABSOLUTE MONOS 0.49 0.11 - 0.59 K/uL [facility] ABSOLUTE EOS 0.11 0.01 - 0.50 K/uL [facility] ABSOLUTE BASOS 0.03 0.00 - 0.08 K/uL [facility] Granulocytes, immature 0.02 0.00 - 0.05 K/uL [facility] Blood 05/28/2017 3:23 PM EST 05/28/2017 3:25 PM EST Vinay Serrano MD LAB BLOOD ORDERABLES Final Result [facility] 30 [place] [address] documented in this encounter Visit Diagnoses Diagnosis Chronic schizophrenia- Primary Unspecified schizophrenia, chronic condition documented in this encounter Additional Health Concerns Infection Onset Date Last Indicated Resolved Time CoV-Risk Comment:Neg covid 05/20/2022 05/21/2022 05/22/2022 6:[address] CoV-Risk 01/17/2024 01/17/2024 01/28/2024 1:22 AM EDT documented as of this encounter Care Teams Pawn Shop Keeper Relationship Specialty Start Date End Date Al Alcantara MD [address] [place] [address] [email or web address] PCP - General 02/04/17 06/09/19 Al Alcantara MD [address] [place] [address] [email or web address] PCP - General Family Medicine 06/10/19 09/28/19 Callum Field MD [address] [place] [phone] PCP - General Family Medicine 09/29/19 12/27/22 Callum Field MD [address] [place] [address] PCP - General Family Medicine 12/28/22 12/23/23 Callum Field MD [address] [place] [address] [email or web address] PCP - General Family Medicine 12/24/23 documented as of this encounter Additional Source Comments The information contained in this document represents components of the legal health record. It is not the complete legal health record.[facility]
--- OUTSIDE RECORDS SUMMARY | 2025-01-18 08:40 | XMS_ITS | Encounter Summary ---
Author Organization [facility] Address [address] [place] [address] Phone Care Team Providers Care Laundry Or Dry Cleaners Counter Clerk Name Role Phone Al Alcantara MD Primary Care Provider Al Alcantara MD Primary Care Provider Callum Field MD Primary Care Provider [phone] Callum Field MD Primary Care Provider [phone] Callum Field MD Primary Care Provider [phone] Encounter Details Date Type Department Care Team (Latest Contact Info) Description 06/25/2017 Transcribe Orders [facility] Laboratory [address] [place] [address] Vinay Serrano MD 50 [place], [place] [phone] Subchronic schizophrenia (Primary Dx) Social History Tobacco [...] Description 02/09/2025 3:45 PM EDT Appointment [facility], [facility] 30 [place] [address] MurraySerafin DO [address] [place] [address] documented as of this encounter Results * (ABNORMAL) CBC and differential (06/25/2017 12:05 PM EST) WBC 7.99 3.40 - 11.20 K/uL [facility] RBC 3.48(L) 3.80 - 4.80 M/uL [facility] HGB 10.8(L) 12.0 - 15.0 g/dL [facility] HCT 31.6(L) 36.0 - 46.0 % [facility] PLT 247 130 - 400 K/uL [facility] MCV 90.8 79.0 - 98.0 fL [facility] MCH 31.0 27.0 - 34.8 pg [facility] MCHC 34.2 31.5 - 36.0 g/dL [facility] RDW 14.1 10.8 - 14.6 % [facility] MPV 10.3 9.4 - 12.4 fl [facility] NRBC 0.00 /100 WBCs [facility] ABSOLUTE NRBC 0.00 K/uL [facility] DIFF METHOD Auto [facility] NEUTS 70.6 45.30 - 77.70 % [facility] LYMPHS 18.9 12.30 - 39.70 % [facility] MONOS 6.9 4.10 - 12.80 % [facility] EOS 2.5 0 - 7.2 % [facility] BASOS 0.8 0 - 2.80 % [facility] Granulocytes, immature (%) 0.3 0.0 - 0.9 % [facility] ABSOLUTE NEUTS 5.65 1.40 - 7.70 K/uL [facility] ABSOLUTE LYMPHS 1.51 0.60 - 3.20 K/uL [facility] ABSOLUTE MONOS 0.55 0.11 - 0.59 K/uL [facility] ABSOLUTE EOS 0.20 0.01 - 0.50 K/uL [facility] ABSOLUTE BASOS 0.06 0.00 - 0.08 K/uL [facility] Granulocytes, immature 0.02 0.00 - 0.05 K/uL [facility] Blood 06/25/2017 12:0 5 PM EST 06/25/2017 12:08 PM EST Vinay Serrano MD LAB BLOOD ORDERABLES Final Result [facility] [address] [place] [address] documented in this encounter Visit Diagnoses Diagnosis Subchronic schizophrenia- Primary Unspecified schizophrenia, subchronic condition documented in this encounter Additional Health Concerns Infection Onset Date Last Indicated Resolved Time CoV-Risk Comment:Neg covid 05/20/2022 05/21/2022 05/22/2022 6:[address] CoV-Risk 01/17/2024 01/17/2024 01/28/2024 1:22 AM EDT documented as of this encounter Care Teams Laundry Or Dry Cleaners Counter Clerk Relationship Specialty Start Date End Date Al Alcantara MD [address] [place] [address] [email or web address] [email or web address] - General 02/04/17 06/09/19 Al Alcantara MD [address] [place] [address] [email or web address] PCP - General Family Medicine 06/10/19 09/28/19 Callum Field MD [address] [place] [address] [email or web address] PCP - General Family Medicine 09/29/19 12/27/22 Callum Field MD [address] [place] [address] [email or web address] PCP - General Family Medicine 12/28/22 12/23/23 Callum Field MD [address] [place] [address] [email or web address] PCP - General Family Medicine 12/24/23 documented as of this encounter Additional Source Comments The information contained in this document represents components of the legal health record. It is not the complete legal health record.[facility]
--- OUTSIDE RECORDS SUMMARY | 2025-01-18 08:41 | XMS_ITS | Encounter Summary ---
Author Organization [facility] Address [address] [place] [address] Phone Care Team Providers Care Washing Machine Loader And Puller Name Role Phone Al Alcantara MD Primary Care Provider Al Alcantara MD Primary Care Provider [phone] Callum Field MD Primary Care Provider Callum Field MD Primary Care Provider [phone] Callum Field MD Primary Care Provider [phone] Encounter Details Date Type Department Care Team (Late st Contact Info) Description 03/05/2018 Procedure Pass [facility] Endoscopy Admitting Dept Virtual Department [address] [place] [phone] Social History Tobacco Use Types Packs/Day Years [...] Info) Description 02/09/2025 3:45 PM EDT Appointment [facility], [facility] - [address] [address] Serafin Murray DO [address] [place] [address] documented as of this encounter Visit Diagnoses Not on filedocumented in this encounter Additional Health Concerns Infection Onset Date Last Indicated Resolved Time CoV-Risk Comment:Neg covid 05/20/2022 05/21/2022 05/22/2022 6:[address] CoV-Risk 01/17/2024 01/17/2024 01/28/2024 1:22 AM EDT documented as of this encounter Care Teams Washing Machine Loader And Puller Relationship Specialty Start Date End Date Al Alcantara MD [address] [place] [address] [email or web address] PCP - General 02/04/17 06/09/19 Al Alcantara MD [address] [place] [address] [email or web address] PCP - General Family Medicine 06/10/19 09/28/19 Callum Field MD [address] [place] [address] [email or web address] PCP - General Family Medicine 09/29/19 12/27/22 Callum Field MD [address] [place] [address] [email or web address] PCP - General Family Medicine 12/28/22 12/23/23 Callum Field MD 70 [place] [address] [email or web address] PCP - General Family Medicine 12/24/23 documented as of this encounter Additional Source Comments The information contained in this document represents components of the legal health record. It is not the complete legal health record.[facility]
--- OUTSIDE RECORDS SUMMARY | 2025-01-18 08:41 | XMS_ITS | Encounter Summary ---
Author Organization [facility] Address [address] [place] [address] Phone Care Team Providers Care Correspondence Review Clerk Name Role Phone Al Alcantara MD Primary Care Provider [phone] Al Alcantara MD Primary Care Provider [phone] Callum Field MD Primary Care Provider [phone] Callum Field MD Primary Care Provider [phone] aCllum Field MD Primary Care Provider [phone] Encounter Details Date Type Department Care Team (Late st Contact Info) Description 01/08/2018 Transcribe Orders [facility] Laboratory [address] [place] [address] Vinay Serrano MD 50 [place], [place] [phone] Social History Tobacco Use Types Packs/Day Years [...] 3:45 PM EDT Appointment [facility], [facility] 30 [facility] [place] [address] Serafin Murray DO [address] [place] [address] documented as of this encounter Visit Diagnoses Not on filedocumented in this encounter Additional Health Concerns Infection Onset Date Last Indicated Resolved Time CoV-Risk Comment:Neg covid 05/20/2022 05/21/2022 05/22/2022 6:[address] CoV-Risk 01/17/2024 01/17/2024 01/28/2024 1:22 AM EDT documented as of this encounter Care Teams Correspondence Review Clerk Relationship Specialty Start Date End Date Al Alcantara MD [address] [place] [phone] [email or web address] PCP - General 02/04/17 06/09/19 Al Alcantara MD [address] [place] [phone] [email or web address] PCP - General Family Medicine 06/10/19 09/28/19 Callum Field MD [address] [place] [phone] PCP - General Family Medicine 09/29/19 12/27/22 Callum Field MD [address] [place] [phone] PCP - General Family Medicine 12/28/22 12/23/23 Callum Field MD [address] [place] [phone] PCP - General Family Medicine 12/24/23 documented as of this encounter Additional Source Comments The information contained in this document represents components of the legal health record. It is not the complete legal health record.[facility]
--- OUTSIDE RECORDS SUMMARY | 2025-01-18 08:41 | XMS_ITS | Encounter Summary ---
Author Organization [facility] Address [address] [place] [address] Phone Care Team Providers Care Antisubmarine Weapons Officer Name Role Phone Callum Feild MD Primary Care Provider [phone] Callum Field MD Primary Care Provider [phone] Callum Field MD Primary Care Provider [phone] Encounter Details Date Type Department Care Team (Late st Contact Info) Description 01/19/2022 Procedure Pass [facility], Ct Scan - [facility] [address] [place], [place] [id number] Social History Tobacco Use Types Packs/Day Years [...] 12:59 PM EDT Christy Duron RN * [place] Suicide Severity Rating Scale (Screener/Recent Self-Report) Question [...] [facility], Bone Density - [facility] [address] [place] [address] Serafin Murray DO [address] [place] [address] documented as of this encounter Visit Diagnoses Not on filedocumented in this encounter Additional Health Concerns Infection Onset Date Last Indicated Resolved Time CoV-Risk Comment:Neg covid 05/20/2022 05/21/2022 05/22/2022 6:[address] CoV-Risk 01/17/2024 01/17/2024 01/28/2024 1:22 AM EDT documented as of this encounter Care Teams Antisubmarine Weapons Officer Relationship Specialty Start Date End Date Callum Field MD [email or web address] PCP - General Family Medicine 09/29/19 12/27/22 Callum Field MD PCP - General Family Medicine 12/28/22 12/23/23 Callum Field MD [address] [place] [address] [email or web address] PCP - General Family Medicine 12/24/23 documented as of this encounter Additional Source Comments The information contained in this document represents components of the legal health record. It is not the complete legal health record.[facility]
[2025-02-03] VITALS (7 sets, daily range): BP systolic 134–189; BP diastolic 84–96; PULSE 78–84; RESP 16; TEMP 36.1; O2SAT 98; BMI 29.7
--- NOTE | 2025-02-03 07:02 | PM.ANESCN ---
History of Present Illness Consult details Consult date: 02/03/25 Review of Systems Review of Systems: Yes all other systems are reviewed and are negative Constitutional: Constitutional: Reports as per HPI Eyes: Eyes: Reports as per HPI ENT: Reports system reviewed and no additional complaints, except as documented and Reports as per HPI Cardiovascular: Cardiovascular: Reports as per HPI and Reports no additional cardiovascular complaints Respiratory: Respiratory: Reports as per HPI Gastrointestinal: Gastrointestinal: Reports as per HPI Genitourinary: Genitourinary: Reports no additional female genitourinary complaints Musculoskeletal: Musculoskeletal: Reports no additional musculoskeletal complaints Integumentary/Breasts: Skin/Breast: Reports system reviewed and no additional complaints, except as docu and Reports as per HPI Neurologic: Reports system reviewed and no additional complaints, except as documented and Reports as per HPI Psychiatric: Psychiatric: Reports as per HPI Endocrine: Endocrine: Reports no additional endocrine complaints and Reports as per HPI Hematologic/Lymphatic: Hematologic/Lymphatic: Reports no additional hematologic/lymphatic complaints Allergic/Immunologic: Allergic/Immunologic: Reports no additional allergic/immunologic complaints [facility] Past Medical History Medical History Diverticulosis Schizophrenia CKD (chronic kidney disease) Hyperlipidemia Type 2 diabetes mellitus Hypothyroidism HTN (hypertension) GERD (gastroesophageal reflux disease) Mood disorder Functional capacity: independent ambulation Social History Social History Household Members: None Household Members Other:: Lives at [facility] Housing: Assisted Living Facility Do you presently have visiting nurse or other home services: Yes Alcohol intake: current Alcohol intake frequency: does not drink Patient Tobacco Use Status: Never used Tobacco Tobacco use type: Cigarette Cigarette Packs Per Day: 3 Cigarettes Per Day: 60.0 Years Smoked: 16 Second Hand Smoke Exposure: No Advance Directives: No Advance Directives Information Provided: Yes service: No Current occupational status: retired Sexual orientation: Straight/Heterosexual Meds Allergies Allergy/AdvReac Type Severity Reaction Status Date / Time trifluoperazine (From Allergy Unknown Verified 09/25/24 09:52 Stelazine) Active Medications: Current Medications Lactated Ringer's (Lr) 500 mls @ 20 mls/hr IVCONT .Q24H YURY Naloxone HCl (Naloxone Hcl 0.4 Mg/Ml Vial) 0.04 mg IVPUSH Q5M PRN PRN Reason: Excessive sedation or RR < 8 Home Medications ?Medication ?Instructions ?Recorded ?Confirmed ?Last Taken ?Type acetaminophen 325 mg tablet 650 mg PO Q6H PRN pain/fever 06/22/24 11/25/24 Unknown History hydroxyzine HCl 25 mg tablet 25 mg PO Q6H PRN Anxiety 06/22/24 11/25/24 Unknown History polyethylene glycol 3350 17 gram 17 g PO BEDTIME 06/22/24 11/25/24 06/21/24 20:00 History oral powder packet polyethylene glycol 3350 17 gram 17 g PO DAILY PRN Constipation 06/22/24 11/25/24 Unknown History oral powder packet sennosides 8.6 mg tablet (Senna 8.6 mg PO BEDTIME 06/22/24 11/25/24 06/21/24 20:00 History Lax) sennosides 8.6 mg tablet (senna) 8.6 mg PO DAILY PRN Constipation 06/22/24 11/25/24 Unknown History trazodone 50 mg tablet 50 mg PO BEDTIME 06/22/24 11/25/24 06/21/24 20:00 History trazodone 50 mg tablet 50 mg PO BEDTIME PRN Insomnia 06/22/24 11/25/24 Unknown History bisacodyl 10 mg rectal suppository 10 mg TN DAILY PRN Constipation 07/03/24 11/25/24 Unknown History (Dulcolax (bisacodyl)) magnesium hydroxide 400 mg/5 mL 5 ml PO DAILY PRN Constipation 07/03/24 11/25/24 Unknown History oral suspension (Milk of Magnesia) sennosides 8.6 mg tablet (Senna 8.6 mg PO BEDTIME 07/03/24 11/25/24 Unknown History Lax) sodium phosphates 19 gram-7 118 ml TN DAILY PRN Dehydration 07/03/24 11/25/24 Unknown History gram/118 mL enema (Fleet Enema) cephalexin 500 mg capsule 500 mg PO QID 08/13/24 11/25/24 Unknown History Physical Exam Vital Signs: Vital Signs: BMI result Body Mass Index 29.7 Results Labs Labs: All other labs normal. Procedures Date of Service Date of Service: 02/03/25 Abscess I/D Consent for Procedure: Elective - informed consent obtained
--- NOTE | 2025-02-03 07:05 | MHC.SHP ---
Pre-Procedural Eval Section A - 24 Hr Update-Section A only Date of Service: 02/03/25 The patient is an INPATIENT: No Changes since office visit: No Cold of Flu in the past 2 weeks, No New Medical Problems, No Changes in Medication and No Patient answered all questions The patient has been examined within 24 hours of the surgical procedure. The History & Physical has been completed within 30 days and I have reviewed it.: Yes Section B - Complete if H&P > 30 days Chief Complaint: depression Details of Present Illness: mood stable; some episodes of schizophrenia with intrusive thoughts.. pt asks for ECT [id number] Medical History: No relevant PMH Allergies: Allergies Allergy/AdvReac Type Severity Reaction Status Date / Time trifluoperazine (From Allergy Unknown Verified 09/25/24 09:52 Stelazine) Review of Systems Sugical H&P ROS: Negative: Constitution, Cardiovascular, Respiratory, Neurological and Genitourinary and Yes, Specify: Psychiatric (some intrusive thoughts) Exam Surgical H&P Exam: Normal: Heart (RRR; no murmurs), Normal: Lungs (CTA b/l throughout) and Normal: Neurological (CN 2-12 grossly intact) Plan Diagnosis/Plan: Unchanged I have reviewed the history and physical and performed a pertinent physical examination on my patient. No changes have occurred unless specified. Time Spent With Patient Time: Total time managing care of this patient today ____ minutes.
--- NOTE | 2025-02-03 07:14 | HO.ECTPROC ---
ECT Procedure Note Diagnosis/Treatment Date of Service: 02/03/25 Diagnosis: Schizoaffective Disorder Previous ECT Date: 01/13/25 Current Treatment Number: Other (21) Treatment: Maintenance Interval Clinical Notes: mood stable; some intrusive thoughts and pt asking for ECT [id number] Time: Total time managing care of this patient today ____ minutes. ECT Settings Device: THYMATRON DGx Electrode Placement: Bifrontal Program/Pulse Width: 0.50 Energy Percent: 100 Seizure Duration By EEG (in seconds): 27 By Motor Observation (in seconds): 27 Medications Administration General Anesthetic: Etomidate (12) Muscle Relaxant: Succinylcholine (80) Ancillary Medications Anti-emetics: Zofran - Pre ECT (4) Miscillaneous Medications: Propofol (30) Airway Management Airway Management: Bag Mask Ventilation Treatment Recommendations Electrode Placement: Bifrontal Program/Pulse Width: 0.50 Energy Percent: 100 Notes: pt had adequate seizure reports increased bouts of intrusive thoughts and asks for ECT to be increased in freq to [id number]. Television Technician will schedule next ECT in 2 weeks and then defer to dr. Krishna to discuss with patient freq going forward. Propofol was given post ect last session (and this one)...need to Clarify if this is for post ect agitation Pt Tolerated Procedure w/o Issue: Yes
== END 2025-02-03 09:02 | disposition home or self-care (01) ==
PROVIDERS: PCP Internal Medicine; Visit Provider Psychiatry & Neurology Psychiatry
PROC: (CPT 90870; principal; 2025-02-03 07:30)
DX: F25.8 Other schizoaffective disorders (principal); I12.9 Hypertensive chronic kidney disease with stage 1 through stage 4 chronic kidney disease, or unspecified chronic kidney disease; N18.30 Chronic kidney disease, stage 3 unspecified; R73.03 Prediabetes; D64.9 Anemia, unspecified; E78.2 Mixed hyperlipidemia; E03.9 Hypothyroidism, unspecified; G89.29 Other chronic pain; M54.50 Low back pain, unspecified; Z79.899 Other long term (current) drug therapy; Z88.8 Allergy status to other drugs, medicaments and biological substances
CPT/HCPCS: 90870; J0330; J2405; J2704

== ENCOUNTER → 2025-02-03 05:53 | Outpatient (BNV) | payer MEDICARE, MEDICAID, SELFPAY | PROVIDERS: PCP Internal Medicine; Visit Provider Psychiatry & Neurology Psychiatry | DX: F33.2 Major depressive disorder, recurrent severe without psychotic features (principal) | CPT/HCPCS: 90870 ==

== ENCOUNTER 2025-02-17 05:46 | Day surgery (SDC) | payer MEDICARE, MEDICAID, SELFPAY ==
--- OUTSIDE RECORDS SUMMARY | 2025-02-03 16:08 | XMS_ITS | Encounter Summary ---
Author Organization [facility] Address [address] [place] [address] Phone Care Team Providers Care Alligator Trapper Name Role Phone Al Alcantara MD Primary Care Provider Al Alcantara MD Primary Care Provider Callum Field MD Primary Care Provider [phone] Callum Field MD Primary Care Provider [phone] Callum Field MD Primary Care Provider [phone] Encounter Details Date Type Department Care Team (Latest Contact Info) Description 07/23/2017 Transcribe Orders [facility] Laboratory [address] [place] [address] Vinay Serrano MD [address] [place], [place] [phone] Subchronic schizophrenia (Primary Dx) Social History Tobacco [...] Info) Description 02/09/2025 3:45 PM EDT Appointment [facility], [facility] [address] [place] [address] Murray, Serafin, [address] [place] [address] documented as of this encounter Results * (ABNORMAL) CBC and differential (07/23/2017 1:16 PM EDT) WBC 7.36 3.40 - 11.20 K/uL [facility] RBC 3.69(L) 3.80 - 4.80 M/uL [facility] HGB 11.3(L) 12.0 - 15.0 g/dL [facility] HCT 33.3(L) 36.0 - 46.0 % [facility] PLT 261 130 - 400 K/uL [facility] MCV 90.2 79.0 - 98.0 fL [facility] MCH 30.6 27.0 - 34.8 pg [facility] MCHC 33.9 31.5 - 36.0 g/dL [facility] RDW 13.4 10.8 - 14.6 % [facility] MPV 10.6 9.4 - 12.4 fl [facility] NRBC 0.00 /100 WBCs [facility] ABSOLUTE NRBC 0.00 K/uL [facility] DIFF METHOD Auto [facility] NEUTS 71.9 45.30 - 77.70 % [facility] LYMPHS 18.2 12.30 - 39.70 % [facility] MONOS 7.1 4.10 - 12.80 % [facility] EOS 1.8 0 - 7.2 % [facility] BASOS 0.7 0 - 2.80 % [facility] Granulocytes, immature (%) 0.3 0.0 - 0.9 % [facility] ABSOLUTE NEUTS 5.30 1.40 - 7.70 K/uL [facility] ABSOLUTE LYMPHS 1.34 0.60 - 3.20 K/uL [facility] ABSOLUTE MONOS 0.52 0.11 - 0.59 K/uL [facility] ABSOLUTE EOS 0.13 0.01 - 0.50 K/uL [facility] ABSOLUTE BASOS 0.05 0.00 - 0.08 K/uL [facility] Granulocytes, immature 0.02 0.00 - 0.05 K/uL [facility] Blood 07/23/2017 1:16 PM EDT 07/23/2017 1:18 PM EDT Vinay Serrano MD LAB BLOOD ORDERABLES Final Result [facility] [address] [place] [address] documented in this encounter Visit Diagnoses Diagnosis Subchronic schizophrenia- Primary Unspecified schizophrenia, subchronic condition documented in this encounter Additional Health Concerns Infection Onset Date Last Indicated Resolved Time CoV-Risk Comment:Neg covid 05/20/2022 05/21/2022 05/22/2022 6:[address] CoV-Risk 01/17/2024 01/17/2024 01/28/2024 1:22 AM EDT documented as of this encounter Care Teams Alligator Trapper Relationship Specialty Start Date End Date Al Alcantara MD [address] [place] [address] [email or web address] PCP - General 02/04/17 06/09/19 Al Alcantara MD [address] [place] [address] [email or web address] PCP - General Family Medicine 06/10/19 09/28/19 Callum Field MD [address] [place] [address] [email or web address] PCP - General Family Medicine 09/29/19 12/27/22 Callum Field MD [address] [place] [address] [email or web address] PCP - General Family Medicine 12/28/22 12/23/23 Callum Field MD [address] [place] [address] [email or web address] PCP - General Family Medicine 12/24/23 documented as of this encounter Additional Source Comments The information contained in this document represents components of the legal health record. It is not the complete legal health record.[facility]
--- OUTSIDE RECORDS SUMMARY | 2025-02-03 16:08 | XMS_ITS | Clinical Summary ---
Author Organization [facility] Address [address] [place] [address] Phone Care Team Providers Care Jail Manager Name Role Phone Callum Field MD [...] daily as needed (Anxiety). Last filled at [facility], [place] 01/06/24 01/06/2024 Active cloZAPine (CLOZARIL) 50 MG [...] Info) Description 02/09/2025 3:45 PM EDT Appointment [facility], Bone Density - [facility] [address] [place] [address] Serafin Murray DO [address] [place] [address] Health Maintenance Due Date Last Done Comments BLOOD PRESSURE 1950 HEMOGLOBIN A1C 1950 DEPRESSION SCREENING 1963 SMOKING Hx and SMOKELESS TOBACCO SCREENING 1964 HEPATITIS C SCREENING 1969 LIPID PANEL 1969 MAMMOGRAM 1991 COLOGUARD 1996 FIT TEST 1996 FOBT 1996 SIGMOIDOSCOPY 1996 VIRTUAL COLONOSCOPY 1996 ZOSTER VACCINES (2 of 3) 10/09/2011 08/14/2011 OSTEOPOROSIS SCREENING INITIAL (ONE-TIME) 2016 Adult Td,Tdap Booster 01/10/2021 01/10/2011 DIABETIC EYE EXAM 06/25/2024 ABSOLUTE NEUTROPHIL COUNT [...] mellitus with other specified complication, unspecified whether terminal worker insulin use Hypothyroidism, unspecified type Schizophrenia, unspecified type COMPREHENSIVE METABOLIC PANEL Routine 06/25/2024 5:10 AM EST Diverticulitis Other specified diabetes mellitus with other specified complication, unspecified whether intermediate insulin use ENDOSCOPY, COLON 03/05/2018 9:09 AM EST from Last 3 Months or Most Recently Relevant to Health Maintenance Results * (ABNORMAL) CBC and differential (08/25/2024 6:00 AM EDT) WBC 5.82 4.00 - 11.00 K/uL [facility] RBC 3.61(L) 4.00 - 5.20 M/uL [facility] HGB 10.7(L) 12.0 - 16.0 g/dL [facility] HCT 32.9(L) 36.0 - 46.0 % [facility] PLT 208 150 - 450 K/uL [facility] MCV 91.1 80.0 - 100.0 fL [facility] MCH 29.6 27.0 - 31.0 pg [facility] MCHC 32.5 32.0 - 36.0 g/dL [facility] RDW 14.4 11.5 - 14.5 % [facility] MPV 10.2 8.4 - 12.0 fL [facility] NRBC 0.00 0.00 /100 WBCs [facility] ABSOLUTE NRBC 0.00 0.00 K/uL [facility] DIFF METHOD Auto [facility] NEUTS 56.5 48.0 - 76.0 % [facility] LYMPHS 28.0 18.0 - 41.0 % [facility] MONOS 10.1 4.0 - 11.0 % [facility] EOS 4.3 0.0 - 5.0 % [facility] BASOS 0.9 0.0 - 1.5 % [facility] Granulocytes, immature (%) 0.2 0.0 - 0.9 % [facility] ABSOLUTE NEUTS 3.29 1.92 - 7.60 K/uL [facility] ABSOLUTE LYMPHS 1.63 0.72 - 4.10 K/uL [facility] ABSOLUTE MONOS 0.59 0.16 - 1.10 K/uL [facility] ABSOLUTE EOS 0.25 0.00 - 0.50 K/uL [facility] ABSOLUTE BASOS 0.05 0.00 - 0.15 K/uL [facility] Granulocytes, immature 0.01 0.00 - 0.09 K/uL [facility] Blood 08/25/2024 6:00 AM EDT 08/25/2024 8:25 AM EDT us Vinay Serrano MD LAB BLOOD ORDERABLES Final Result Performing Organization Address City/[facility]/ZIP Co de Phone Number [address] [address] * (ABNORMAL) TSH (07/01/2024 5:45 AM EDT) TSH 10.70(H) 0.27 - 4.20 uIU/mL [facility] Blood 07/01/2024 5:45 AM EDT 07/01/2024 8:10 AM EDT us Katelynn Marsh NP LAB BLOOD ORDERABLES Final Resul t Performing Organization Address City/[facility]/ZIP Co de Phone Number [address] [address] * (ABNORMAL) Comprehensive metabolic panel (06/25/2024 5:10 AM EST) SODIUM 144 133 - 146 mmol/L [facility] POTASSIUM 4.8 3.3 - 5.1 mmol/L [facility] CHLORIDE 108 96 - 108 mmol/L [facility] CO2 25 21 - 35 mmol/L [facility] BUN 25(H) 6 - 19 mg/dL [facility] CREATININE 1.20 0.5 - 1.5 mg/dL [facility] GLUCOSE 100(H) 70 - 99 mg/dL [facility] ALBUMIN 3.5(L) 3.9 - 4.8 g/dL [facility] TOTAL PROTEIN 5.3(L) 6.5 - 8.0 g/dL [facility] CALCIUM 8.8 8.4 - 10.3 mg/dL [facility] ALKALINE PHOSPHATASE 143(H) 39 - 117 U/L [facility] TOTAL BILIRUBIN 0.3 0.0 - 1.2 mg/dL [facility] AST 21 0 - 37 U/L [facility] ALT 23 0 - 40 U/L [facility] GLOBULIN 1.8 1 - 4.8 g/dL [facility] EGFR 48(L) >59 mL/min/1.7 3m2 [facility] Comment:Estimated glomerular filtration rate calculated using the CKD-EPI refit equation. ANION GAP 16 10 - 20 mmol/L [facility] Blood 06/25/2024 5:10 AM EST 06/25/2024 8:41 AM EST us Katelynn Marsh RESEARCH TECH LAB BLOOD ORDERABLES Final Resul t Performing Organization Address City/State/[facility] Co de Phone Number [address] [address] * ENDOSCOPY, COLON (03/05/2018 9:09 AM EST) Narrative Transcriptions Shan Cote MD - 03/05/2018 9:09 AM EST Patient Name: Deedee Holbrook Attending MD:: SHAN COTE MD Procedure Date: 03/05/2018 9:09 AM Date of : 1950 Age: 67 Admit Type: Outpatient Gender: Female Room: [place] [address] Referring MD: SUZY LUNDY MD Exam Type: [...] 9:09 AM Procedure Code(s): --- Professional --- 59656, Colonoscopy, flexible; with biopsy, single or multiple --- Technical --- 95404, Colonoscopy, flexible; with biopsy, single or multiple [...] perforation orabscess without bleeding CPT copyright 2016 [employer]. All rights reserved. The codes documented in this report are preliminary and upon brick machine operator reviewmay be revised to meet current compliance requirements. [address] [place] [address] Suzy Lundy MD GI PROCEDURE ORDERABLES Final R esult from Last 3 Months or Most Recently Relevant to Health Maintenance Insurance [place]IC[place] H[place] BLUE RE[place]ACEMENT Member Subscriber Plan / Payer (Ef fective 2016-Present) Name:Deedee Holbrook Relation to Subscriber:Self Name:Deedee Holbrook Payer ID:[id number] (NAIC) Type:Medicare Address: [facility] [address] [place] [id number] [place] BL[place] Advance Directives For more information, please contact: [phone] (9AM - 5PM [place], Saturday-Saturday) Documents on File Type Date Recorded Patient Hot Dip Plater Expl anation Healthcare Proxy 05/25/2022 2:05 PM * Full Code (Latest Code Status on File) Date Activated Date Inactivated Comments 05/22/2022 12:26 AM Question Answer Comments Code Status Confirmed With: Patient * Full Code (Confirmed) Date Activated Date Inactivated Comments 04/14/2017 4:14 AM 04/19/2017 3:46 PM Question Answer Comments Code Discussion Comments: Patient Care Teams Jail Manager Relationship Specialty Start Date End Date Callum Field MD [address] [place] [id number] [email or web address] PCP - General Family Medicine 12/24/23 Additional Source Comments The information contained in this document represents components of the legal health record. It is not the complete legal health record.[facility]
--- OUTSIDE RECORDS SUMMARY | 2025-02-03 16:08 | XMS_ITS | Encounter Summary ---
Author Organization [facility] Address [address] [place] [address] Phone Care Team Providers Care Crab Backer Name Role Phone Callum Field MD Primary Care Provider [phone] Callum Field MD Primary Care Provider [phone] Callum Field MD Primary Care Provider [phone] Encounter Details Date Type Department Care Team (Late st Contact Info) Description 05/20/2022 Procedure Pass [facility], Ct Scan - [facility] [address] [place], [place] [phone] Social History Tobacco Use Types Packs/Day Years [...] 05/21/2022 5:07 PM Rena Rodriguez RN * [place] Suicide Severity Rating Scale (Screener/Recent Self-Report) Question [...] Info) Description 02/09/2025 3:45 PM EDT Appointment [facility], Bone Density - [facility] [address] [place] [address] Serafin Murray DO [address] [place] [address] documented as of this encounter Visit Diagnoses Not on filedocumented in this encounter Additional Health Concerns Infection Onset Date Last Indicated Resolved Time CoV-Risk Comment:Neg covid 05/20/2022 05/21/2022 05/22/2022 6:[address] CoV-Risk 01/17/2024 01/17/2024 01/28/2024 1:22 AM EDT documented as of this encounter Care Teams Crab Backer Relationship Specialty Start Date End Date Callum Field MD PCP - General Family Medicine 09/29/19 12/27/22 Callum Field MD PCP - General Family Medicine 12/28/22 12/23/23 Callum Field MD [address] [place] [address] [email or web address] PCP - General Family Medicine 12/24/23 documented as of this encounter Additional Source Comments The information contained in this document represents components of the legal health record. It is not the complete legal health record.[facility]
--- OUTSIDE RECORDS SUMMARY | 2025-02-03 16:08 | XMS_ITS | Encounter Summary ---
Author Organization [facility] Address [address] [place] [address] Phone Care Team Providers Care Seismology Technical Officer Name Role Phone Al Alcantara MD Primary Care Provider Al Alcantara MD Primary Care Provider Callum Field MD Primary Care Provider [phone] Callum Field MD Primary Care Provider [phone] Callum Field MD Primary Care Provider [phone] Encounter Details Date Type Department Care Team (Latest Contact Info) Description 11/12/2017 Transcribe Orders [facility] Laboratory [address] [place] [address] Vinay Serrano MD [address] [place], [place] [phone] Subchronic schizophrenia (Primary Dx) Social History Tobacco [...] 3:45 PM EDT Appointment [facility], [facility] [address] [place] [address] Serafin Murray DO [address] [place] [address] documented as of this encounter Visit Diagnoses Diagnosis Subchronic schizophrenia- Primary Unspecified schizophrenia, subchronic condition documented in this encounter Additional Health Concerns Infection Onset Date Last Indicated Resolved Time CoV-Risk Comment:Neg covid 05/20/2022 05/21/2022 05/22/2022 6:[address] CoV-Risk 01/17/2024 01/17/2024 01/28/2024 1:22 AM EDT documented as of this encounter Care Teams Seismology Technical Officer Relationship Specialty Start Date End Date Al Alcantara MD [address] [place] [address] [email or web address] [email or web address] - General 02/04/17 06/09/19 Al Alcantara MD [address] [place] [address] [email or web address] - General Family Medicine 06/10/19 09/28/19 Callum Field MD [address] [place] [phone] PCP - General Family Medicine 09/29/19 12/27/22 Callum Field MD [address] [place] [phone] PCP - General Family Medicine 12/28/22 12/23/23 Callum Field MD [address] [place] [phone] PCP - General Family Medicine 12/24/23 documented as of this encounter Additional Source Comments The information contained in this document represents components of the legal health record. It is not the complete legal health record.[facility]
--- OUTSIDE RECORDS SUMMARY | 2025-02-03 16:08 | XMS_ITS | Encounter Summary ---
Author Organization [facility] Address [address] [place] [address] Phone Care Team Providers Care Computer Meteorologist Name Role Phone Al Alcantara MD Primary Care Provider Al Alcantara MD Primary Care Provider Callum Field MD Primary Care Provider Callum Field MD Primary Care Provider Callum Field MD Primary Care Provider [phone] Encounter Details Date Type Department Care Team (Latest Contact Info) Description 08/21/2017 Transcribe Orders [facility] Laboratory 30 [place] [address] Vinay Serrano MD 50 [place], [place] [phone] Subchronic schizophrenia (Primary Dx) Social History Tobacco [...] Info) Description 02/09/2025 3:45 PM EDT Appointment [facility], [facility] [address] [place] [address] Serafin Murray DO 70 [place] [address] documented as of this encounter Visit Diagnoses Diagnosis Subchronic schizophrenia- Primary Unspecified schizophrenia, subchronic condition documented in this encounter Additional Health Concerns Infection Onset Date Last Indicated Resolved Time CoV-Risk Comment:Neg covid 05/20/2022 05/21/2022 05/22/2022 6:[address] CoV-Risk 01/17/2024 01/17/2024 01/28/2024 1:22 AM EDT documented as of this encounter Care Teams Computer Meteorologist Relationship Specialty Start Date End Date Al Alcantara MD [address] [place] [phone] [email or web address] PCP - General 02/04/17 06/09/19 Al Alcantara MD [address] [place] [phone] [email or web address] PCP - General Family Medicine 06/10/19 09/28/19 Callum Field MD [address] [place] [phone] [email or web address] PCP - General Family Medicine 09/29/19 12/27/22 Callum Field MD [address] [place] [address] [email or web address] PCP - General Family Medicine 12/28/22 12/23/23 Callum Field MD [address] [place] [address] [email or web address] PCP - General Family Medicine 12/24/23 documented as of this encounter Additional Source Comments The information contained in this document represents components of the legal health record. It is not the complete legal health record.[facility]
--- OUTSIDE RECORDS SUMMARY | 2025-02-03 16:08 | XMS_ITS | Encounter Summary ---
Author Organization [facility] Address [address] [place] [address] Phone Care Team Providers Care Insulation Packer Name Role Phone Al Alcantara MD Primary Care Provider [phone] Al Alcantara MD Primary Care Provider Callum Field MD Primary Care Provider [phone] Callum Field MD Primary Care Provider Callum Field MD Primary Care Provider [phone] Encounter Details Date Type Department Care Team (Latest Contact Info) Description 02/20/2017 Transcribe Orders [facility] 30 [place] [address] Vinay Serrano MD 50 [place], [place] [phone] Subchronic schizophrenia (Primary Dx) Social History Tobacco [...] Info) Description 02/09/2025 3:45 PM EDT Appointment [facility], [facility] 30 [place] [address] Serafin Murray DO 70 [place] [address] documented as of this encounter Procedures Procedure Name Priority Date/Time Associated Diagnosis Comments CBC AND DIFFERENTIAL Routine 02/20/2017 11:31 AM EDT Subchronic schizophrenia documented in this encounter Results * (ABNORMAL) CBC and differential (02/20/2017 11:31 AM EDT) WBC 5.82 3.40 - 11.20 K/uL [facility] RBC 4.00 3.80 - 4.80 M/uL [facility] HGB 12.0 12.0 - 15.0 g/dL [facility] HCT 36.0 36.0 - 46.0 % [facility] PLT 218 130 - 400 K/uL [facility] MCV 90.0 79.0 - 98.0 fL [facility] MCH 30.0 27.0 - 34.8 pg [facility] MCHC 33.3 31.5 - 36.0 g/dL [facility] RDW 13.2 10.8 - 14.6 % [facility] MPV 10.7 9.4 - 12.4 fl [facility] NRBC 0.00 /100 WBCs [facility] ABSOLUTE NRBC 0.00 K/uL [facility] DIFF METHOD Auto [facility] NEUTS 52.6 45.30 - 77.70 % [facility] LYMPHS 29.9 12.30 - 39.70 % [facility] MONOS 8.1 4.10 - 12.80 % [facility] EOS 8.4(H) 0 - 7.2 % [facility] BASOS 0.7 0 - 2.80 % [facility] Granulocytes, immature (%) 0.3 0.0 - 0.9 % [facility] ABSOLUTE NEUTS 3.06 1.40 - 7.70 K/uL [facility] ABSOLUTE LYMPHS 1.74 0.60 - 3.20 K/uL [facility] ABSOLUTE MONOS 0.47 0.11 - 0.59 K/uL [facility] ABSOLUTE EOS 0.49 0.01 - 0.50 K/uL [facility] ABSOLUTE BASOS 0.04 0.00 - 0.08 K/uL [facility] Granulocytes, immature 0.02 0.00 - 0.05 K/uL [facility] Blood 02/20/2017 11:3 1 AM EDT 02/20/2017 11:34 AM EDT Vinay Serrano MD LAB BLOOD ORDERABLES Final Result Performing Organization Address City/State/[facility] Co de Phone Number [facility] 30 [place] [address] documented in this encounter Visit Diagnoses Diagnosis Subchronic schizophrenia- Primary Unspecified schizophrenia, subchronic condition documented in this encounter Additional Health Concerns Infection Onset Date Last Indicated Resolved Time CoV-Risk Comment:Neg covid 05/20/2022 05/21/2022 05/22/2022 6:[address] CoV-Risk 01/17/2024 01/17/2024 01/28/2024 1:22 AM EDT documented as of this encounter Care Teams Insulation Packer Relationship Specialty Start Date End Date Al Alcantara MD [address] [place] [address] [email or web address] PCP - General 02/04/17 06/09/19 Al Alcantara MD [address] [place] [phone] [email or web address] PCP - General Family Medicine 06/10/19 09/28/19 Callum Field MD [address] [place] [address] [email or web address] PCP - General Family Medicine 09/29/19 12/27/22 Callum Field MD [address] [place] [address] [email or web address] PCP - General Family Medicine 12/28/22 12/23/23 Callum Field MD [address] [place] [address] [email or web address] PCP - General Family Medicine 12/24/23 documented as of this encounter Additional Source Comments The information contained in this document represents components of the legal health record. It is not the complete legal health record.[facility]
--- OUTSIDE RECORDS SUMMARY | 2025-02-03 16:09 | XMS_ITS | Encounter Summary ---
Author Organization [facility] Address [address] [place] [address] Phone Care Team Providers Care Director Clinical Data Name Role Phone Callum Field MD Primary Care Provider [phone] Callum Field MD Primary Care Provider [phone] Callum Field MD Primary Care Provider [phone] Encounter Details Date Type Department Care Team (Late st Contact Info) Description 05/22/2022 Procedure Pass [facility], Ct Scan - [address] [address] Social History Tobacco Use Types Packs/Day Years [...] Appointment [facility], Bone Density - [address] [address] Serafin Murray DO [address] [place] [address] documented as of this encounter Visit Diagnoses Not on filedocumented in this encounter Additional Health Concerns Infection Onset Date Last Indicated Resolved Time CoV-Risk Comment:Neg covid 05/20/2022 05/21/2022 05/22/2022 6:[address] CoV-Risk 01/17/2024 01/17/2024 01/28/2024 1:22 AM EDT documented as of this encounter Care Teams Director Clinical Data Relationship Specialty Start Date End Date Callum Field MD [email or web address] PCP - General Family Medicine 09/29/19 12/27/22 Callum Field MD PCP - General Family Medicine 12/28/22 12/23/23 Callum Field MD [address] [place] [address] [email or web address] PCP - General Family Medicine 12/24/23 documented as of this encounter Additional Source Comments The information contained in this document represents components of the legal health record. It is not the complete legal health record.[facility]
--- OUTSIDE RECORDS SUMMARY | 2025-02-03 16:09 | XMS_ITS | Encounter Summary ---
Author Organization [facility] Address [address] [place] [address] Phone Care Team Providers Care Instrument Processing Tech Name Role Phone Al Alcantara MD Primary Care Provider Al Alcantara MD Primary Care Provider Callum Field MD Primary Care Provider [phone] Callum Field MD Primary Care Provider [phone] Callum Field MD Primary Care Provider [phone] Encounter Details Date Type Department Care Team (Late st Contact Info) Description 03/05/2018 Procedure Pass [facility] Endoscopy Admitting Dept Virtual Department [address] [place] [address] Social History Tobacco Use Types Packs/Day Years [...] Info) Description 02/09/2025 3:45 PM EDT Appointment [facility], [facility] - [address] [address] Serafin Murray DO 70 [place] [address] documented as of this encounter Visit Diagnoses Not on filedocumented in this encounter Additional Health Concerns Infection Onset Date Last Indicated Resolved Time CoV-Risk Comment:Neg covid 05/20/2022 05/21/2022 05/22/2022 6:[address] CoV-Risk 01/17/2024 01/17/2024 01/28/2024 1:22 AM EDT documented as of this encounter Care Teams Instrument Processing Tech Relationship Specialty Start Date End Date Al Alcantara MD 70 [place] [address] [email or web address] PCP - General 02/04/17 06/09/19 Al Alcantara MD [address] [place] [address] [email or web address] PCP - General Family Medicine 06/10/19 09/28/19 Callum Field MD [address] [place] [address] PCP - General Family Medicine 09/29/19 12/27/22 Callum Field MD 70 [place] [address] PCP - General Family Medicine 12/28/22 12/23/23 Callum Field MD 70 [place] [address] PCP - General Family Medicine 12/24/23 documented as of this encounter Additional Source Comments The information contained in this document represents components of the legal health record. It is not the complete legal health record.[facility]
--- OUTSIDE RECORDS SUMMARY | 2025-02-03 16:09 | XMS_ITS | Encounter Summary ---
Author Organization [facility] Address [address] 065485 [place] [address] Phone Care Team Providers Care Emissions Inspector Name Role Phone Callum Field MD Primary Care Provider [phone] Callum Field MD Primary Care Provider [phone] Callum Field MD Primary Care Provider [phone] Encounter Details Date Type Department Care Team (Late st Contact Info) Description 09/25/2022 Ancillary Orders Virtual Department 30 [place] [address] Mei Rodriguez MD [address] [place] [address] [email or web address] Osteopenia, unspecified location; Other specified disorders of [...] Description 02/09/2025 3:45 PM EDT Appointment [facility], Bone Density - [facility] [address] [place] [address] Serafin Murray DO [address] [place] [address] documented as of this encounter Visit Diagnoses Diagnosis Osteopenia, unspecified location Other specified disorders of bone density and structure, unspecified site documented in this encounter Additional Health Concerns Infection Onset Date Last Indicated Resolved Time CoV-Risk 01/17/2024 01/17/2024 01/28/2024 1:22 AM EDT documented as of this encounter Care Teams Emissions Inspector Relationship Specialty Start Date End Date Callum Field MD PCP - General Family Medicine 09/29/19 12/27/22 Callum Field MD PCP - General Family Medicine 12/28/22 12/23/23 Callum Field MD [address] [place] [phone] PCP - General Family Medicine 12/24/23 documented as of this encounter Additional Source Comments The information contained in this document represents components of the legal health record. It is not the complete legal health record.[facility]
--- OUTSIDE RECORDS SUMMARY | 2025-02-03 16:09 | XMS_ITS | Encounter Summary ---
Author Organization [facility] Address [address] [place] [address] Phone Care Team Providers Care Big Data Solutions Architect Name Role Phone Al Alcantara MD Primary Care Provider Al Alcantara MD Primary Care Provider Callum Field MD Primary Care Provider [phone] Callum Field MD Primary Care Provider [phone] Callum Field MD Primary Care Provider [phone] Encounter Details Date Type Department Care Team (Late st Contact Info) Description 01/08/2018 Transcribe Orders [facility] Laboratory 30 [place] [address] Vinay Serrano MD [address] [place], [place] [phone] Social History Tobacco Use Types Packs/Day Years [...] Info) Description 02/09/2025 3:45 PM EDT Appointment [facility], [facility] [address] [place] [address] Serafin Murray DO [address] [place] [address] documented as of this encounter Visit Diagnoses Not on filedocumented in this encounter Additional Health Concerns Infection Onset Date Last Indicated Resolved Time CoV-Risk Comment:Neg covid 05/20/2022 05/21/2022 05/22/2022 6:[address] CoV-Risk 01/17/2024 01/17/2024 01/28/2024 1:22 AM EDT documented as of this encounter Care Teams Big Data Solutions Architect Relationship Specialty Start Date End Date Al Alcantara MD [address] [place] [address] [email or web address] PCP - General 02/04/17 06/09/19 Al Alcantara MD [address] [place] [address] [email or web address] PCP - General Family Medicine 06/10/19 09/28/19 Callum Field MD [address] [place] [phone] PCP - General Family Medicine 09/29/19 12/27/22 Callum Field MD [address] [place] [address] PCP - General Family Medicine 12/28/22 12/23/23 Callum Field MD [address] [place] [phone] PCP - General Family Medicine 12/24/23 documented as of this encounter Additional Source Comments The information contained in this document represents components of the legal health record. It is not the complete legal health record.[facility]
--- OUTSIDE RECORDS SUMMARY | 2025-02-03 16:09 | XMS_ITS | Encounter Summary ---
Author Organization [facility] Address [address] [place] [address] Phone Care Team Providers Care Regional Economic Liaison Name Role Phone Al Alcantara MD Primary Care Provider Al Alcantara MD Primary Care Provider Callum Field MD Primary Care Provider [phone] Callum Field MD Primary Care Provider [phone] Callum Field MD Primary Care Provider [phone] Encounter Details Date Type Department Care Team (Latest Contact Info) Description 04/02/2017 Transcribe Orders [facility] Laboratory [address] [place] [address] Vinay Serrano MD [address] [place] [address] [phone] Subchronic schizophrenia (Primary Dx) Social History Tobacco [...] Info) Description 02/09/2025 3:45 PM EDT Appointment [facility], Bone [facility] - [facility] 30 [place] [address] Serafin Murray DO [address] [place] [phone] documented as of this encounter Procedures Procedure Name Priority Date/Time Associated Diagnosis Comments CBC AND DIFFERENTIAL Routine 04/02/2017 2:23 PM EST Subchronic schizophrenia documented in this encounter Results * (ABNORMAL) CBC and differential (04/02/2017 2:23 PM EST) WBC 7.60 3.40 - 11.20 K/uL [facility] RBC 3.80 3.80 - 4.80 M/uL [facility] HGB 11.4(L) 12.0 - 15.0 g/dL [facility] HCT 34.4(L) 36.0 - 46.0 % [facility] PLT 240 130 - 400 K/uL [facility] MCV 90.5 79.0 - 98.0 fL [facility] MCH 30.0 27.0 - 34.8 pg [facility] MCHC 33.1 31.5 - 36.0 g/dL [facility] RDW 13.3 10.8 - 14.6 % [facility] MPV 10.7 9.4 - 12.4 fl [facility] NRBC 0.00 /100 WBCs [facility] ABSOLUTE NRBC 0.00 K/uL [facility] DIFF METHOD Auto [facility] NEUTS 63.0 45.30 - 77.70 % [facility] LYMPHS 22.0 12.30 - 39.70 % [facility] MONOS 9.2 4.10 - 12.80 % [facility] EOS 4.7 0 - 7.2 % [facility] BASOS 0.8 0 - 2.80 % [facility] Granulocytes, immature (%) 0.3 0.0 - 0.9 % [facility] ABSOLUTE NEUTS 4.79 1.40 - 7.70 K/uL [facility] ABSOLUTE LYMPHS 1.67 0.60 - 3.20 K/uL [facility] ABSOLUTE MONOS 0.70(H) 0.11 - 0.59 K/uL [facility] ABSOLUTE EOS 0.36 0.01 - 0.50 K/uL [facility] ABSOLUTE BASOS 0.06 0.00 - 0.08 K/uL [facility] Granulocytes, immature 0.02 0.00 - 0.05 K/uL [facility] Blood 04/02/2017 2:23 PM EST 04/02/2017 2:25 PM EST Vinay Serrano MD LAB BLOOD ORDERABLES Final Result Performing Organization Address City/State/[facility] Co de Phone Number [facility] 30 [place] [address] documented in this encounter Visit Diagnoses Diagnosis Subchronic schizophrenia- Primary Unspecified schizophrenia, subchronic condition documented in this encounter Additional Health Concerns Infection Onset Date Last Indicated Resolved Time CoV-Risk Comment:Neg covid 05/20/2022 05/21/2022 05/22/2022 6:[address] CoV-Risk 01/17/2024 01/17/2024 01/28/2024 1:22 AM EDT documented as of this encounter Care Teams Regional Economic Liaison Relationship Specialty Start Date End Date Al Alcantara MD [address] [place] [address] [email or web address] PCP - General 02/04/17 06/09/19 Al Alcantara MD [address] [place] [address] [email or web address] PCP - General Family Medicine 06/10/19 09/28/19 Callum Field MD [address] [place] [address] [email or web address] PCP - General Family Medicine 09/29/19 12/27/22 Callum Field MD [address] [place] [address] [email or web address] PCP - General Family Medicine 12/28/22 12/23/23 Callum Field MD [address] [place] [phone] [email or web address] PCP - General Family Medicine 12/24/23 documented as of this encounter Additional Source Comments The information contained in this document represents components of the legal health record. It is not the complete legal health record.[facility]
--- OUTSIDE RECORDS SUMMARY | 2025-02-03 16:09 | XMS_ITS | Encounter Summary ---
Author Organization [facility] Address [address] [place] [address] Phone Care Team Providers Care Body Mechanic Apprentice Name Role Phone Callum Field MD Primary Care Provider [phone] Callum Field MD Primary Care Provider [phone] Callum Field MD Primary Care Provider [phone] Encounter Details Date Type Department Care Team (Late st Contact Info) Description 01/19/2022 Procedure Pass [facility], Ct Scan - [facility] 30 [place], [place] [phone] Social History Tobacco Use Types Packs/Day Years [...] No Risk Indicated 01/19/2022 12:59 PM EDT Chrisyt Duron RN * [place] Suicide Severity Rating Scale (Screener/Recent Self-Report) Question [...] Appointment [facility], Bone Density - [facility] [address] [place] [address] Serafin Murray DO [address] [place] [address] documented as of this encounter Visit Diagnoses Not on filedocumented in this encounter Additional Health Concerns Infection Onset Date Last Indicated Resolved Time CoV-Risk Comment:Neg covid 05/20/2022 05/21/2022 05/22/2022 6:[address] CoV-Risk 01/17/2024 01/17/2024 01/28/2024 1:22 AM EDT documented as of this encounter Care Teams Body Mechanic Apprentice Relationship Specialty Start Date End Date Callum Field MD [email or web address] PCP - General Family Medicine 09/29/19 12/27/22 Callum Field MD PCP - General Family Medicine 12/28/22 12/23/23 Callum Field MD 70 [place] [address] [email or web address] PCP - General Family Medicine 12/24/23 documented as of this encounter Additional Source Comments The information contained in this document represents components of the legal health record. It is not the complete legal health record.[facility]
--- OUTSIDE RECORDS SUMMARY | 2025-02-03 16:09 | XMS_ITS | Encounter Summary ---
Author Organization [facility] Address [address] [place] [address] Phone Care Team Providers Care [employer] Senior Officer Name Role Phone Al Alcantara MD Primary Care Provider Al Alcantara MD Primary Care Provider [phone] Callum Field MD Primary Care Provider [phone] Callum Field MD Primary Care Provider [phone] Callum Field MD Primary Care Provider [phone] Encounter Details Date Type Department Care Team (Latest Contact Info) Description 05/01/2017 Transcribe Orders [facility] [address] [place] [address] Vinay Serrano MD [address] [place], [place] [id number] Subchronic schizophrenia (Primary Dx) Social History Tobacco [...] Info) Description 02/09/2025 3:45 PM EDT Appointment [facility], [facility] [address] [place] [address] Trevor DO Serafin [address] [place] [address] documented as of this encounter Procedures Procedure Name Priority Date/Time Associated Diagnosis Comments CBC AND DIFFERENTIAL Routine 05/01/2017 10:51 AM EST Subchronic schizophrenia documented in this encounter Results * (ABNORMAL) CBC and differential (05/01/2017 10:51 AM EST) WBC 6.68 3.40 - 11.20 K/uL [facility] RBC 3.53(L) 3.80 - 4.80 M/uL [facility] HGB 10.6(L) 12.0 - 15.0 g/dL [facility] HCT 33.0(L) 36.0 - 46.0 % [facility] PLT 351 130 - 400 K/uL [facility] MCV 93.5 79.0 - 98.0 fL [facility] MCH 30.0 27.0 - 34.8 pg [facility] MCHC 32.1 31.5 - 36.0 g/dL [facility] RDW 14.2 10.8 - 14.6 % [facility] MPV 10.0 9.4 - 12.4 [facility] NRBC 0.00 /100 WBCs [facility] ABSOLUTE NRBC 0.00 K/uL [facility] DIFF METHOD Auto [facility] NEUTS 64.6 45.30 - 77.70 % [facility] LYMPHS 20.7 12.30 - 39.70 % [facility] MONOS 9.1 4.10 - 12.80 % [facility] EOS 4.3 0 - 7.2 % [facility] BASOS 1.2 0 - 2.80 % [facility] Granulocytes, immature (%) 0.1 0.0 - 0.9 % [facility] ABSOLUTE NEUTS 4.31 1.40 - 7.70 K/uL [facility] ABSOLUTE LYMPHS 1.38 0.60 - 3.20 K/uL [facility] ABSOLUTE MONOS 0.61(H) 0.11 - 0.59 K/uL [facility] ABSOLUTE EOS 0.29 0.01 - 0.50 K/uL [facility] ABSOLUTE BASOS 0.08 0.00 - 0.08 K/uL [facility] Granulocytes, immature 0.01 0.00 - 0.05 K/uL [facility] Blood 05/01/2017 10:5 1 AM EST 05/01/2017 10:53 AM EST us Vinay Serrano MD LAB BLOOD ORDERABLES Final Result [facility] [address] [place] [address] documented in this encounter Visit Diagnoses Diagnosis Subchronic schizophrenia- Primary Unspecified schizophrenia, subchronic condition documented in this encounter Additional Health Concerns Infection Onset Date Last Indicated Resolved Time CoV-Risk Comment:Neg covid 05/20/2022 05/21/2022 05/22/2022 6:[address] CoV-Risk 01/17/2024 01/17/2024 01/28/2024 1:22 AM EDT documented as of this encounter Care Teams [employer] Senior [employer] Relationship Specialty Start Date End Date Al Alcantara MD [address] [place] [phone] [email or web address] PCP - General 02/04/17 06/09/19 Al Alcantara MD [address] [place] [phone] [email or web address] PCP - General Family Medicine 06/10/19 09/28/19 Callum Field MD [address] [place] [address] [email or web address] PCP - General Family Medicine 09/29/19 12/27/22 Callum Field MD [address] [place] [phone] [email or web address] PCP - General Family Medicine 12/28/22 12/23/23 Calulm Field MD [address] [place] [phone] [email or web address] PCP - General Family Medicine 12/24/23 documented as of this encounter Additional Source Comments The information contained in this document represents components of the legal health record. It is not the complete legal health record.[facility]
--- OUTSIDE RECORDS SUMMARY | 2025-02-03 16:09 | XMS_ITS | Encounter Summary ---
Author Organization [facility] Address [address] [place] [phone] Phone Care Team Providers Care Banana Loader Name Role Phone Al Alcantara MD Primary Care Provider [phone] Al Alcantara MD Primary Care Provider Callum Field MD Primary Care Provider [phone] Callum Field MD Primary Care Provider [phone] Callum Field MD Primary Care Provider [phone] Encounter Details Date Type Department Care Team (Latest Contact Info) Description 06/25/2017 Transcribe Orders [facility] Laboratory [address] [place] [address] Vinay Serrano MD 50 [place], [place] [phone] Subchronic schizophrenia (Primary Dx) Social History Tobacco [...] 3:45 PM EDT Appointment [facility], [facility] [address] [place] [address] MurraySerafin DO 70 [place] [address] documented as of this encounter Results * (ABNORMAL) CBC and differential (06/25/2017 12:05 PM EST) WBC 7.99 3.40 - 11.20 K/uL [facility] RBC 3.48(L) 3.80 - 4.80 M/uL [facility] HGB 10.8(L) 12.0 - 15.0 g/dL [facility] HCT 31.6(L) 36.0 - 46.0 % [facility] PLT 247 130 - 400 K/uL [facility] MCV 90.8 79.0 - 98.0 fL [facility] MCH 31.0 27.0 - 34.8 pg [facility] MCHC 34.2 31.5 - 36.0 g/dL [facility] RDW 14.1 10.8 - 14.6 % [facility] MPV 10.3 9.4 - 12.4 fl [facility] NRBC 0.00 /100 WBCs [facility] ABSOLUTE NRBC 0.00 K/uL [facility] DIFF METHOD Auto [facility] NEUTS 70.6 45.30 - 77.70 % [facility] LYMPHS 18.9 12.30 - 39.70 % [facility] MONOS 6.9 4.10 - 12.80 % [facility] EOS 2.5 0 - 7.2 % [facility] BASOS 0.8 0 - 2.80 % [facility] Granulocytes, immature (%) 0.3 0.0 - 0.9 % [facility] ABSOLUTE NEUTS 5.65 1.40 - 7.70 K/uL [facility] ABSOLUTE LYMPHS 1.51 0.60 - 3.20 K/uL [facility] ABSOLUTE MONOS 0.55 0.11 - 0.59 K/uL [facility] ABSOLUTE EOS 0.20 0.01 - 0.50 K/uL [facility] ABSOLUTE BASOS 0.06 0.00 - 0.08 K/uL [facility] Granulocytes, immature 0.02 0.00 - 0.05 K/uL [facility] Blood 06/25/2017 12:0 5 PM EST 06/25/2017 12:08 PM EST Vinay Serrano MD LAB BLOOD ORDERABLES Final Result [facility] [address] [place] [address] documented in this encounter Visit Diagnoses Diagnosis Subchronic schizophrenia- Primary Unspecified schizophrenia, subchronic condition documented in this encounter Additional Health Concerns Infection Onset Date Last Indicated Resolved Time CoV-Risk Comment:Neg covid 05/20/2022 05/21/2022 05/22/2022 6:[address] CoV-Risk 01/17/2024 01/17/2024 01/28/2024 1:22 AM EDT documented as of this encounter Care Teams Banana Loader Relationship Specialty Start Date End Date Al Alcantara MD [address] [place] [phone] [email or web address] - [email or web address] 02/04/17 06/09/19 Al Alcantara MD [address] [place] [phone] [email or web address] - General Family Medicine 06/10/19 09/28/19 Callum Field MD [address] [place] [phone] [email or web address] PCP - General Family Medicine 09/29/19 12/27/22 Callum Field MD [address] [place] [phone] PCP - General Family Medicine 12/28/22 12/23/23 Callum Field MD [address] [place] [phone] [email or web address] PCP - General Family Medicine 12/24/23 documented as of this encounter Additional Source Comments The information contained in this document represents components of the legal health record. It is not the complete legal health record.[facility]
--- OUTSIDE RECORDS SUMMARY | 2025-02-03 16:09 | XMS_ITS | Encounter Summary ---
Author Organization [facility] Address [address] [address] Phone Care Team Providers Care Filament Coil Winder Name Role Phone Al Alcantara MD Primary Care Provider [phone] Al Alcantara MD Primary Care Provider Callum Field MD Primary Care Provider [phone] Callum Field MD Primary Care Provider [phone] Callum Field MD Primary Care Provider [phone] Encounter Details Date Type Department Care Team (Latest Contact Info) Description 05/28/2017 Transcribe Orders [facility] Laboratory [address] [place] [address] Vinay Serrano MD [address] [place], [place] [phone] Chronic schizophrenia (Primary Dx) Social History Tobacco [...] EDT Appointment [facility], [facility] [address] [place] [address] Murray, DO Serafin [address] [place] [address] documented as of this encounter Results * (ABNORMAL) CBC and differential (05/28/2017 3:23 PM EST) WBC 7.56 3.40 - 11.20 K/uL [facility] RBC 3.57(L) 3.80 - 4.80 M/uL [facility] HGB 10.8(L) 12.0 - 15.0 g/dL [facility] HCT 33.1(L) 36.0 - 46.0 % [facility] PLT 258 130 - 400 K/uL [facility] MCV 92.7 79.0 - 98.0 fL [facility] MCH 30.3 27.0 - 34.8 pg [facility] MCHC 32.6 31.5 - 36.0 g/dL [facility] RDW 13.9 10.8 - 14.6 % [facility] MPV 10.2 9.4 - 12.4 fl [facility] NRBC 0.00 /100 WBCs [facility] ABSOLUTE NRBC 0.00 K/uL [facility] DIFF METHOD Auto [facility] NEUTS 71.5 45.30 - 77.70 % [facility] LYMPHS 19.8 12.30 - 39.70 % [facility] MONOS 6.5 4.10 - 12.80 % [facility] EOS 1.5 0 - 7.2 % [facility] BASOS 0.4 0 - 2.80 % [facility] Granulocytes, immature (%) 0.3 0.0 - 0.9 % [facility] ABSOLUTE NEUTS 5.41 1.40 - 7.70 K/uL [facility] ABSOLUTE LYMPHS 1.50 0.60 - 3.20 K/uL [facility] ABSOLUTE MONOS 0.49 0.11 - 0.59 K/uL [facility] ABSOLUTE EOS 0.11 0.01 - 0.50 K/uL [facility] ABSOLUTE BASOS 0.03 0.00 - 0.08 K/uL [facility] Granulocytes, immature 0.02 0.00 - 0.05 K/uL [facility] Blood 05/28/2017 3:23 PM EST 05/28/2017 3:25 PM EST Vinay Serrano MD LAB BLOOD ORDERABLES Final Result [facility] [address] [place] [address] documented in this encounter Visit Diagnoses Diagnosis Chronic schizophrenia- Primary Unspecified schizophrenia, chronic condition documented in this encounter Additional Health Concerns Infection Onset Date Last Indicated Resolved Time CoV-Risk Comment:Neg covid 05/20/2022 05/21/2022 05/22/2022 6:[address] CoV-Risk 01/17/2024 01/17/2024 01/28/2024 1:22 AM EDT documented as of this encounter Care Teams Filament Coil Winder Relationship Specialty Start Date End Date Al Alcantara MD [address] [place] [phone] [email or web address] PCP - General 02/04/17 06/09/19 Al Alcantara MD [address] [place] [address] [email or web address] PCP - General Family Medicine 06/10/19 09/28/19 Callum Field MD [address] [place] [phone] PCP - General Family Medicine 09/29/19 12/27/22 Callum Field MD [address] [place] [phone] PCP - General Family Medicine 12/28/22 12/23/23 Callum Field MD [address] [place] [phone] [email or web address] PCP - General Family Medicine 12/24/23 documented as of this encounter Additional Source Comments The information contained in this document represents components of the legal health record. It is not the complete legal health record.[facility]
--- OUTSIDE RECORDS SUMMARY | 2025-02-03 16:09 | XMS_ITS | Encounter Summary ---
Author Organization [facility] Address [address] [place] [phone] Phone Care Team Providers Care Finish Cleaner Name Role Phone Al Alcantara MD Primary Care Provider Al Alcantara MD Primary Care Provider [phone] Callum Field MD Primary Care Provider [phone] Callum Field MD Primary Care Provider Callum Field MD Primary Care Provider [phone] Encounter Details Date Type Department Care Team (Late st Contact Info) Description 03/09/2017 Transcribe Orders [facility] Laboratory [address] [place] [address] Vinay Serrano MD [address] [place] [address] [phone] Drug therapy (Primary Dx) Social History Tobacco [...] 02/09/2025 3:45 PM EDT Appointment [facility], [facility] [employer] [facility] [place] [address] [place] [address] Serafin Murray DO [address] [place] [address] documented as of this encounter Procedures Procedure Name Priority Date/Time Associated Diagnosis Comments CBC AND DIFFERENTIAL Routine 03/09/2017 10:16 AM EST Drug therapy documented in this encounter Results * (ABNORMAL) CBC and differential (03/09/2017 10:16 AM EST) WBC 5.93 3.40 - 11.20 K/uL [facility] RBC 3.86 3.80 - 4.80 M/uL [facility] HGB 11.7(L) 12.0 - 15.0 g/dL [facility] HCT 34.8(L) 36.0 - 46.0 % [facility] PLT 238 130 - 400 K/uL [facility] MCV 90.2 79.0 - 98.0 fL [facility] MCH 30.3 27.0 - 34.8 pg [facility] MCHC 33.6 31.5 - 36.0 g/dL [facility] RDW 13.2 10.8 - 14.6 % [facility] MPV 10.2 9.4 - 12.4 fl [facility] NRBC 0.00 /100 WBCs [facility] ABSOLUTE NRBC 0.00 K/uL [facility] DIFF METHOD Auto [facility] NEUTS 54.0 45.30 - 77.70 % [facility] LYMPHS 30.5 12.30 - 39.70 % [facility] MONOS 8.6 4.10 - 12.80 % [facility] EOS 5.4 0 - 7.2 % [facility] BASOS 1.3 0 - 2.80 % [facility] Granulocytes, immature (%) 0.2 0.0 - 0.9 % [facility] ABSOLUTE NEUTS 3.20 1.40 - 7.70 K/uL [facility] ABSOLUTE LYMPHS 1.81 0.60 - 3.20 K/uL [facility] ABSOLUTE MONOS 0.51 0.11 - 0.59 K/uL [facility] ABSOLUTE EOS 0.32 0.01 - 0.50 K/uL [facility] ABSOLUTE BASOS 0.08 0.00 - 0.08 K/uL [facility] Granulocytes, immature 0.01 0.00 - 0.05 K/uL [facility] Blood 03/09/2017 10:1 6 AM EST 03/09/2017 10:18 AM EST Vinay Serrano MD LAB BLOOD ORDERABLES Final Result Performing Organization Address City/State/[facility] Co de Phone Number [facility] [address] [place] [address] documented in this encounter Visit Diagnoses Diagnosis Drug therapy- Primary Encounter for other specified aftercare documented in this encounter Additional Health Concerns Infection Onset Date Last Indicated Resolved Time CoV-Risk Comment:Neg covid 05/20/2022 05/21/2022 05/22/2022 6:[address] CoV-Risk 01/17/2024 01/17/2024 01/28/2024 1:22 AM EDT documented as of this encounter Care Teams Finish Cleaner Relationship Specialty Start Date End Date Al Alcantara MD [address] [place] [phone] [email or web address] PCP - General 02/04/17 06/09/19 Al Alcantara MD [address] [place] [phone] [email or web address] PCP - General Family Medicine 06/10/19 09/28/19 Callum Field MD [address] [place] [address] [email or web address] PCP - General Family Medicine 09/29/19 12/27/22 Callum Field MD [address] [place] [phone] PCP - General Family Medicine 12/28/22 12/23/23 Callum Field MD [address] [place] [phone] [email or web address] PCP - General Family Medicine 12/24/23 documented as of this encounter Additional Source Comments The information contained in this document represents components of the legal health record. It is not the complete legal health record.[facility]
--- OUTSIDE RECORDS SUMMARY | 2025-02-03 16:09 | XMS_ITS | Encounter Summary ---
Author Organization [facility] Address [address] [place] [address] Phone Care Team Providers Care Experimental Physicist Name Role Phone Callum Field MD Primary Care Provider Callum Field MD Primary Care Provider [phone] Callum Field MD Primary Care Provider [phone] Encounter Details Date Type Department Care Team (Late st Contact Info) Description 09/25/2022 Transcribe Orders Virtual Department [address] [place] [address] Mei Rodriguez MD [address] [place] [address] [email or web address] Osteopenia, unspecified location Social History Tobacco Use [...] Info) Description 02/09/2025 3:45 PM EDT Appointment [facility], [facility] [address] [place] [address] Serafin Murray DO [address] [place] [address] documented as of this encounter Visit Diagnoses Diagnosis Osteopenia, unspecified location documented in this encounter Additional Health Concerns Infection Onset Date Last Indicated Resolved Time CoV-Risk 01/17/2024 01/17/2024 01/28/2024 1:22 AM EDT documented as of this encounter Care Teams Experimental Physicist Relationship Specialty Start Date End Date Callum Field MD PCP - General Family Medicine 09/29/19 12/27/22 Callum Field MD PCP - General Family Medicine 12/28/22 12/23/23 Callum Field MD [address] [place] [phone] PCP - General Family Medicine 12/24/23 documented as of this encounter Additional Source Comments The information contained in this document represents components of the legal health record. It is not the complete legal health record.[facility]
[2025-02-17] VITALS (7 sets, daily range): BP systolic 141–181; BP diastolic 84–101; PULSE 65–92; RESP 15–18; TEMP 36.1–36.6; O2SAT 96–100; BMI 29.9
--- NOTE | 2025-02-17 07:00 | MHC.SHP ---
Pre-Procedural Eval Section A - 24 Hr Update-Section A only Date of Service: 02/17/25 Section B - Complete if H&P > 30 days Chief Complaint: depression Details of Present Illness: mood stable; some episodes of schizophrenia with intrusive thoughts.. pt asks for ECT [id number] Medical History: No relevant PMH Allergies: Allergies Allergy/AdvReac Type Severity Reaction Status Date / Time trifluoperazine (From Allergy Unknown Verified 09/25/24 09:52 Stelazine) Review of Systems Sugical H&P ROS: Negative: Cardiovascular, Respiratory and Neurological and Yes, Specify: Psychiatric (some intrusive thoughts) Exam Surgical H&P Exam: Normal: Heart (RRR; no murmurs), Normal: Lungs (CTA b/l throughout) and Normal: Neurological (CN 2-12 grossly intact) Plan I have reviewed the history and physical and performed a pertinent physical examination on my patient. No changes have occurred unless specified. Time Spent With Patient Time: Total time managing care of this patient today ____ minutes.
--- NOTE | 2025-02-17 07:02 | HO.ANESPROP2 ---
[facility] Active Problems Active Problems: All Active Problems (Updated 07/03/24 @ 13:55 by Lolis Parks PA-C) Fracture of right inferior pubic ramus (Acute) Fracture of superior ramus of right pubis (Acute) Arachnoid cyst (Acute) Diverticulosis (Chronic) Schizophrenia (Acute) Past Medical History Medical History Diverticulosis Schizophrenia CKD (chronic kidney disease) Hyperlipidemia Type 2 diabetes mellitus Hypothyroidism HTN (hypertension) GERD (gastroesophageal reflux disease) Mood disorder Family History Family history of problems with anesthesia: No Surgical History History of Problems with Anesthesia: No Social History Social History Household Members: None Household Members Other:: Lives at [facility] Housing: Assisted Living Facility Do you presently have visiting nurse or other home services: Yes Alcohol intake: current Alcohol intake frequency: does not drink Patient Tobacco Use Status: Never used Tobacco Tobacco use type: Cigarette Cigarette Packs Per Day: 3 Cigarettes Per Day: 60.0 Years Smoked: 16 Second Hand Smoke Exposure: No Advance Directives: No Advance Directives Information Provided: Yes service: No Current occupational status: retired Sexual orientation: Straight/Heterosexual Meds Allergies Allergy/AdvReac Type Severity Reaction Status Date / Time trifluoperazine (From Allergy Unknown Verified 09/25/24 09:52 Stelazine) Home Medications ?Medication ?Instructions ?Recorded ?Confirmed ?Last Taken ?Type acetaminophen 325 mg tablet 650 mg PO Q6H PRN pain/fever 06/22/24 11/25/24 Unknown History hydroxyzine HCl 25 mg tablet 25 mg PO Q6H PRN Anxiety 06/22/24 11/25/24 Unknown History polyethylene glycol 3350 17 gram 17 g PO BEDTIME 06/22/24 11/25/24 06/21/24 20:00 History oral powder packet polyethylene glycol 3350 17 gram 17 g PO DAILY PRN Constipation 06/22/24 11/25/24 Unknown History oral powder packet sennosides 8.6 mg tablet (Senna 8.6 mg PO BEDTIME 06/22/24 11/25/24 06/21/24 20:00 History Lax) sennosides 8.6 mg tablet (senna) 8.6 mg PO DAILY PRN Constipation 06/22/24 11/25/24 Unknown History trazodone 50 mg tablet 50 mg PO BEDTIME 06/22/24 11/25/24 06/21/24 20:00 History trazodone 50 mg tablet 50 mg PO BEDTIME PRN Insomnia 06/22/24 11/25/24 Unknown History bisacodyl 10 mg rectal suppository 10 mg CA DAILY PRN Constipation 07/03/24 11/25/24 Unknown History (Dulcolax (bisacodyl)) magnesium hydroxide 400 mg/5 mL 5 ml PO DAILY PRN Constipation 07/03/24 11/25/24 Unknown History oral suspension (Milk of Magnesia) sennosides 8.6 mg tablet (Senna 8.6 mg PO BEDTIME 07/03/24 11/25/24 Unknown History Lax) sodium phosphates 19 gram-7 118 ml CA DAILY PRN Dehydration 07/03/24 11/25/24 Unknown History gram/118 mL enema (Fleet Enema) cephalexin 500 mg capsule 500 mg PO QID 08/13/24 11/25/24 Unknown History Exam Height,Weight and Vital Signs: Height 5 ft 6 in Weight 83.915 kg Last Vital Signs Temp 98 F 02/17/25 06:23 Pulse 83 02/17/25 06:23 Resp 16 02/17/25 06:23 BP 141/86 H 02/17/25 06:23 Pulse Ox 96 02/17/25 06:23 O2 Del Method Room Air 02/17/25 06:23 Airway Mallampati Class: II (edentulous) TM Dist: >3cm Neck ROM: Full Loose/Missing/Broken Teeth: Yes, Upper and Lower Heart: RRR Lungs: CTA Assessment and Plan Assessment Anesthesia Assessment: Anesthesia Plan Discussed and Chart Reviewed Final Anesthetic Review Family History of Problems with Anesthesia: No History of Problems with Anesthesia: No NPO: Yes ASA Class: III Final Preanesthetic Review: Meds/Allgs Chart Reviewed, Consent Obtained/Reviewed and Anes Risks/Benef Reviewed Patient Risk: Intermediate Procedure Risk: Intermediate Anesthetic Plan Anesthetic Plan: GA Disposition: Standard PACU
--- NOTE | 2025-02-18 20:11 | HO.ECTPROC ---
ECT Procedure Note Diagnosis/Treatment Date of Service: 02/17/25 Diagnosis: Schizoaffective Disorder Previous ECT Date: 02/03/25 Current Treatment Number: Other (21) Treatment: Maintenance Interval Clinical Notes: mood stable;occ negative intrusive hallucinations no command to self harm states doing well no c/o side effects agreeable to ongoing tx Time: Total time managing care of this patient today _30___ minutes. ECT Settings Device: THYMATRON DGx Electrode Placement: Bifrontal Program/Pulse Width: 0.50 Energy Percent: 100 Seizure Duration By EEG (in seconds): 49 Medications Administration General Anesthetic: Etomidate (12) Muscle Relaxant: Succinylcholine (80) Ancillary Medications Anti-emetics: Zofran - Pre ECT (4) Miscillaneous Medications: Propofol (30) Airway Management Airway Management: Bag Mask Ventilation Treatment Recommendations No Changes Recommended: No change Notes: did well with prop 30 mg post f/u 3 wks asked pt to call if inc sx in between tx doing well mood stable Pt Tolerated Procedure w/o Issue: Yes
== END 2025-02-17 08:42 | disposition home or self-care (01) ==
PROVIDERS: PCP Internal Medicine; Visit Provider Psychiatry & Neurology Psychiatry
PROC: (CPT 90870; principal; 2025-02-17 07:30)
DX: F25.8 Other schizoaffective disorders (principal); F39 Unspecified mood [affective] disorder; I12.9 Hypertensive chronic kidney disease with stage 1 through stage 4 chronic kidney disease, or unspecified chronic kidney disease; N18.30 Chronic kidney disease, stage 3 unspecified; E11.9 Type 2 diabetes mellitus without complications; E78.5 Hyperlipidemia, unspecified; E03.9 Hypothyroidism, unspecified; K21.9 Gastro-esophageal reflux disease without esophagitis; Z79.899 Other long term (current) drug therapy; Z88.8 Allergy status to other drugs, medicaments and biological substances
CPT/HCPCS: 90870; J0330; J2405; J2704

== ENCOUNTER → 2025-02-17 05:46 | Outpatient (BNV) | payer MEDICARE, MEDICAID, SELFPAY | PROVIDERS: PCP Internal Medicine; Visit Provider Psychiatry & Neurology Psychiatry | DX: F25.1 Schizoaffective disorder, depressive type (principal) | CPT/HCPCS: 90870 ==

== ENCOUNTER 2025-03-03 05:50 | Day surgery (SDC) | payer MEDICARE, MEDICAID, SELFPAY ==
--- OUTSIDE RECORDS SUMMARY | 2025-02-19 10:16 | XMS_ITS | Encounter Summary ---
Author Organization [facility]ly [facility] Address [address] [place] [address] Phone Care Team Providers Care Sales Compensation Analyst Name Role Phone Callum Field MD Primary Care Provider [phone] Callum Field MD Primary Care Provider [phone] Callum Field MD Primary Care Provider [phone] Encounter Details Date Type Department Care Team (Late st Contact Info) Description 05/20/2022 Procedure Pass [facility], Ct Scan - [facility] [address] [place], [place] [id number] Social History Tobacco Use Types Packs/Day Years [...] 05/21/2022 5:07 PM Rena Rodriguez RN * [place] Suicide Severity Rating Scale (Screener/Recent Self-Report) Question Answer Date of Assessment Author 1. Wish to be (Past 1 Month) No 023 5:07 PM Rena Rodriguez RN 2. Non-Specific Active Suici nicola Thoughts (Past 1 Month) No 05/21/2022 5:07 PM Kumar Rodriguez RN 6. Suicidal Behavior (Lifetime) No 5:07 PM Rena Rodriguez RN documented as of this encounter Plan of Treatment Not on file documented as of this encounter Visit Diagnoses Not on filedocumented in this encounter Additional Health Concerns Infection Onset Date Last Indicated Resolved Time CoV-Risk Comment:Neg covid 05/20/2022 05/21/2022 05/22/2022 6:[address] CoV-Risk 01/17/2024 01/17/2024 01/28/2024 1:22 AM EDT documented as of this encounter Care Teams Sales Compensation Analyst Relationship Specialty Start Date End Date Callum Field MD [email or web address] PCP - General Family Medicine 09/29/19 12/27/22 Callum Field MD [email or web address] PCP - General Family Medicine 12/28/22 12/23/23 Callum Field MD [address] [place] [address] [email or web address] PCP - General Family Medicine 12/24/23 documented as of this encounter Additional Source Comments The information contained in this document represents components of the legal health record. It is not the complete legal health record.[facility]
--- OUTSIDE RECORDS SUMMARY | 2025-02-19 10:16 | XMS_ITS | Encounter Summary ---
Author Organization [facility] Address [address] [place] [address] Phone Care Team Providers Care Administrator Pesticide Name Role Phone Al Alcantara MD Primary Care Provider Al Alcantara MD Primary Care Provider Callum Field MD Primary Care Provider [phone] Callum Field MD Primary Care Provider [phone] Callum Field MD Primary Care Provider [phone] Encounter Details Date Type Department Care Team (Latest Contact Info) Description 11/12/2017 Transcribe Orders [facility] 30 [place] [address] Vinay Serrano MD 50 [place] [address] Subchronic schizophrenia (Primary Dx) Social History Tobacco [...] documented as of this encounter Care Teams Administrator Pesticide Relationship Specialty Start Date End Date Al Alcantara MD [address] [place] [address] [email or web address] [email or web address] - General 02/04/17 06/09/19 Al Alcantara MD [address] [place] [address] [email or web address] PCP - General Family Medicine 06/10/19 09/28/19 Callum Field MD [address] [place] [address] [email or web address] PCP - General Family Medicine 09/29/19 12/27/22 Callmu Field MD [address] [place] [address] PCP - General Family Medicine 12/28/22 12/23/23 Callum Field MD [address] [place] [phone] PCP - General Family Medicine 12/24/23 documented as of this encounter Additional Source Comments The information contained in this document represents components of the legal health record. It is not the complete legal health record.[facility]
--- OUTSIDE RECORDS SUMMARY | 2025-02-19 10:16 | XMS_ITS | Encounter Summary ---
Author Organization [facility] Address [address] [place] [address] Phone Care Team Providers Care Triple Air Valve Tester Name Role Phone Al Alcantara MD Primary Care Provider [phone] Al Alcantara MD Primary Care Provider [phone] Callum Field MD Primary Care Provider [phone] Callum Field MD Primary Care Provider [phone] Callum Field MD Primary Care Provider [phone] Encounter Details Date Type Department Care Team (Latest Contact Info) Description 08/21/2017 Transcribe Orders [facility] Laboratory [address] [place] [address] Vinay Serrano MD 50 [place] [address] Subchronic schizophrenia (Primary Dx) Social History Tobacco [...] documented as of this encounter Care Teams Triple Air Valve Tester Relationship Specialty Start Date End Date Al Alcantara MD [address] [place] [address] [email or web address] PCP - General 02/04/17 06/09/19 Al Alcantara MD [address] [place] [address] [email or web address] PCP - General Family Medicine 06/10/19 09/28/19 Callum Field MD [address] [place] [address] [email or web address] PCP - General Family Medicine 09/29/19 12/27/22 Callum Field MD [address] [place] [address] PCP - General Family Medicine 12/28/22 12/23/23 Callum Field MD [address] [place] [address] PCP - General Family Medicine 12/24/23 documented as of this encounter Additional Source Comments The information contained in this document represents components of the legal health record. It is not the complete legal health record.[facility]
--- OUTSIDE RECORDS SUMMARY | 2025-02-19 10:16 | XMS_ITS | Encounter Summary ---
Author Organization [facility] Address [address] [place] [address] Phone Care Team Providers Care Oil Well Shooter Name Role Phone Callum Field MD Primary Care Provider [phone] Encounter Details Date Type Department Care Team (Latest Contact Info) Description 09/07/2024 Transcribe Orders Virtual Department [address] [place] [address] Serafin Suarez DO [address] [place] [address] Asymptomatic menopausal state (Primary Dx) Social History [...] on file documented as of this encounter Results * BD DXA AXIAL (SPINE) WITH HIP (02/09/2025 3:37 PM EDT) Anatomical Region Laterality Modality Bone Density Bone Density 02/09/2025 3:27 PM EDT Impressions 02/11/2025 9:30 AM EDT Interpretation: Osteopenia. Narrative 02/11/2025 9:30 AM EDT Referred By: SERAFIN SUAREZ Indications: Postmenopausal Scanner: Caktus A with serial# of [id number] located at [facility] Bone Density Scan (DXA) 02/09/25 Details of prior DXA scans are available by clicking View Full Report BMD T- Z- Skeletal Site gm/cm2 score score BMD Change Since Prior Scan ------ ----- ----- PA Spine (L1-L4) 0.882 -1.50 0.80 N/A Total Hip (Left) 0.747 -1.60 0.10 N/A Femoral Neck (Left) 0.682 -1.50 0.50 N/A Total Hip (Right) 0.787 -1.30 0.40 N/A Femoral Neck (Right) 0.732 -1.10 1.00 N/A ------ ----- ----- * Denotes significant change when >= 0.022 g/cm2 for the spine, 0.027 g/cm2 for the total hip, 0.029 g/cm2 for the femoral neck. Interpretation: Osteopenia. Technical Quality: Imaging of all sites was of adequate quality. FRAX: Based on FRAX(r) 3.6 (U.[place] White female), this patient's likelihood of hip fracture is 1.8% and major osteoporotic fracture is 10.6% over the next 10 years. The patient reported no risks of fracture. Reviewed By: Mark Chandler MD on 02/11/2025 09:30:58 Additional Information: -World Health Organization criteria classify adults based on lowest T-score at PA spine, hip or forearm: Normal (T-score >= -1.0), Osteopenia (T-score between -1 and -2.5), or Osteoporosis (T-score <= -2.5). At [facility], T-scores are compared to peak bone density of a young white gender matched reference population. - For premenopausal women and men under the age of 50, Z-scores (comparison to age, gender, and ethnicity matched reference population) are used: Above expected range for age (Z-score >= 2.0), Within expected range of age (Z-score 1.9 to -1.9), or Below expected range for age (Z-score <= -2.0). - The Bone Health and Osteoporosis Foundation recommends that treatment be considered in men aged more than 50 years and in postmenopausal women with ANY of the following: Prior hip or vertebral fractures; T-score of <= -2.5 at the PA spine or hip; or 10 year fracture probability by FRAX of >= 3% for the hip or >= 20% for major osteoporotic fracture. - The FRAX algorithm (https://www.ralf.ac.uk/FRAX/tool.aspx) is designed to predict 10-year fracture risk in treatment-naive adults between the ages of 40 and 90. It is not intended to be used in those receiving pharmacologic osteoporosis treatment. - The TBS is derived from the texture of the DXA spine image and has been shown to be related to bone microarchitecture and fracture risk. This data provides information independent of BMD value. It adds to fracture risk assessment with a FRAX adjusted for TBS score. If your patient had a TBS and qualified for a FRAX score, the reported FRAX score has been adjusted for TBS. TBS Score Interpretation 1.350 and greater Normal bone microarchitecture 1.200 to 1.350 Partially degraded bone microarchitecture 1.200 and less Degraded bone microarchitecture - Including race/ethnicity in the generation of T- or Z-scores or in the FRAX calculation is complicated, and currently undergoing active review to ensure that we can give patients the best information on their risk of fracture. - Some prior studies may not be compatible with our comparison software. - Click on View Full Report to see subsequent pages with images and prior bone density results. Procedure Note Mark Chandler MD - 02/11/2025 Referred By: SERAFIN SUAREZ Indications: Postmenopausal Scanner: Caktus A with serial# of [id number] located at [facility] Bone Density Scan (DXA) 02/09/25 Details of prior DXA scans are available by clicking View Full Report BMD T- Z- Skeletal Site gm/cm2 score score BMD Change Since Prior Scan ------ ----- PA Spine (L1-L4) 0.882 -1.50 0.80 N/A Total Hip (Left) 0.747 -1.60 0.10 N/A Femoral Neck (Left) 0.682 -1.50 0.50 N/A Total Hip (Right) 0.787 -1.30 0.40 N/A Femoral Neck (Right) 0.732 -1.10 1.00 N/A ------ ----- * Denotes significant change when >= 0.022 g/cm2 for the spine, 0.027g/cm2 for the total hip, 0.029 g/cm2 for the femoral neck. Interpretation: Osteopenia. Technical Quality: Imaging of all sites was of adequate quality. FRAX: Based on FRAX(r) 3.6 (U.S. White female), this patient's likelihoodof hip fracture is 1.8% and major osteoporotic fracture is 10.6% over thenext 10 years. The patient reported no risks of fracture. Reviewed By: Mark Chandler MD on 02/11/2025 09:30:58 Additional Information: -World Health Organization criteria classify adults based on lowestT-score at PA spine, hip or forearm: Normal (T-score >= -1.0), Osteopenia (T-score between -1 and -2.5), or Osteoporosis (T-score <= -2.5). At [facility], T-scores are compared to peak bone density of a young white gender matched reference population. - For premenopausal women and men under the age of 50, Z-scores(comparison to age, gender, and ethnicity matched reference population) are used:Above expected range for age (Z-score >= 2.0), Within expected range of age (Z-score 1.9 to -1.9), or Below expected range for age (Z-score <= -2.0). - The Bone Health and Osteoporosis Foundation recommends that treatment be considered in men aged more than 50 years and in postmenopausal women with ANY of the following: Prior hip or vertebral fractures; T-score of <= -2.5 at the PA spine or hip; or 10 year fracture probability by FRAX of >= 3%for the hip or >= 20% for major osteoporotic fracture. - The FRAX algorithm (https://www.ralf.ac.uk/FRAX/tool.aspx) is designed to predict 10-year fracture risk in treatment-naive adultsbetween the ages of 40 and 90. It is not intended to be used in those receiving pharmacologic osteoporosis treatment. - The TBS is derived from the texture of the DXA spine image and has been shown to be related to bone microarchitecture and fracture risk. This data provides information independent of BMD value. It adds to fracture risk assessment with a FRAX adjusted for TBS score. If your patient had a TBSand qualified for a FRAX score, the reported FRAX score has been adjusted for TBS. TBS Score Interpretation 1.350 and greater Normal bone microarchitecture 1.200 to 1.350 Partially degraded bone microarchitecture 1.200 and less Degraded bone microarchitecture - Including race/ethnicity in the generation of T- or Z-scores or in the FRAX calculation is complicated, and currently undergoing active review to ensure that we can give patients the best information on their risk of fracture. - Some prior studies may not be compatible with our comparison software. - Click on View Full Report to see subsequent pages with images andprior bone density results. IMPRESSION: Interpretation: Osteopenia. Serafin Suarez DO IMG BD BONE DENSITY DEXA Final R esult documented in this encounter Visit Diagnoses Diagnosis Asymptomatic menopausal state- Primary Asymptomatic menopausal state documented in this encounter Care Teams Oil Well Shooter Relationship Specialty Start Date End Date Callum Field MD [address] [place] [address] [email or web address] PCP - General Family Medicine 12/24/23 documented as of this encounter Additional Source Comments The information contained in this document represents components of the legal health record. It is not the complete legal health record.[facility]
--- OUTSIDE RECORDS SUMMARY | 2025-02-19 10:16 | XMS_ITS | Encounter Summary ---
Author Organization [facility] Address [address] [place] [address] Phone Care Team Providers Care Meter Calibrator Name Role Phone Al Alcantara MD Primary Care Provider [phone] Al Alcantara MD Primary Care Provider [phone] Callum Field MD Primary Care Provider Callum Field MD Primary Care Provider [phone] Callum Field MD Primary Care Provider [phone] Encounter Details Date Type Department Care Team (Latest Contact Info) Description 07/23/2017 Transcribe Orders [facility] Laboratory 30 [place], [place] [phone] Vinay Serrano MD [address] [place], [place] [phone] Subchronic schizophrenia (Primary Dx) Social History Tobacco [...] EDT) WBC 7.36 3.40 - 11.20 K/uL [facility] RBC 3.69(L) 3.80 - 4.80 M/uL [facility] HGB 11.3(L) 12.0 - 15.0 g/dL [facility] HCT 33.3(L) 36.0 - 46.0 % [facility] PLT 261 130 - 400 K/uL [facility] MCV 90.2 79.0 - 98.0 fL [facility] MCH 30.6 27.0 - 34.8 pg [facility] MCHC 33.9 31.5 - 36.0 g/dL [facility] RDW 13.4 10.8 - 14.6 % [facility] MPV 10.6 9.4 - 12.4 fl [facility] NRBC 0.00 /100 WBCs [facility] ABSOLUTE NRBC 0.00 K/uL [facility] DIFF METHOD Auto [facility] NEUTS 71.9 45.30 - 77.70 % [facility] LYMPHS 18.2 12.30 - 39.70 % [facility] MONOS 7.1 4.10 - 12.80 % [facility] EOS 1.8 0 - 7.2 % [facility] BASOS 0.7 0 - 2.80 % [facility] Granulocytes, immature (%) 0.3 0.0 - 0.9 % [facility] ABSOLUTE NEUTS 5.30 1.40 - 7.70 K/uL [facility] ABSOLUTE LYMPHS 1.34 0.60 - 3.20 K/uL [facility] ABSOLUTE MONOS 0.52 0.11 - 0.59 K/uL [facility] ABSOLUTE EOS 0.13 0.01 - 0.50 K/uL [facility] ABSOLUTE BASOS 0.05 0.00 - 0.08 K/uL [facility] Granulocytes, immature 0.02 0.00 - 0.05 K/uL [facility] Blood 07/23/2017 1:16 PM EDT 07/23/2017 1:18 PM EDT Vinay Serrano MD LAB BLOOD ORDERABLES Final Result [facility] [address] [facility] [place] [address] documented in this encounter Visit Diagnoses Diagnosis Subchronic schizophrenia- Primary Unspecified schizophrenia, subchronic condition documented in this encounter Additional Health Concerns Infection Onset Date Last Indicated Resolved Time CoV-Risk Comment:Neg covid 05/20/2022 05/21/2022 05/22/2022 6:[address] CoV-Risk 01/17/2024 01/17/2024 01/28/2024 1:22 AM EDT documented as of this encounter Care Teams Meter Calibrator Relationship Specialty Start Date End Date Al Alcantara MD [address] [place] [address] [email or web address] - General 02/04/17 06/09/19 Al Alcantara MD [address] [place] [address] [email or web address] [email or web address] - General Family Medicine 06/10/19 09/28/19 Callum Field MD [address] [place] [address] [email or web address] PCP - General Family Medicine 09/29/19 12/27/22 Callum Field MD [address] [place] [address] PCP - General Family Medicine 12/28/22 12/23/23 Callum Field MD [address] [place] [address] [email or web address] PCP - General Family Medicine 12/24/23 documented as of this encounter Additional Source Comments The information contained in this document represents components of the legal health record. It is not the complete legal health record.[facility]
--- OUTSIDE RECORDS SUMMARY | 2025-02-19 10:16 | XMS_ITS | Encounter Summary ---
Author Organization [facility] Address [address] [place] [address] Phone Care Team Providers Care Stoper Name Role Phone Al Alcantara MD Primary Care Provider [phone] Al Alcantara MD Primary Care Provider Callum Field MD Primary Care Provider Callum Field MD Primary Care Provider [phone] Callum Field MD Primary Care Provider [phone] Encounter Details Date Type Department Care Team (Latest Contact Info) Description 02/20/2017 Transcribe Orders [facility] [address] [place] [address] Vinay Serrano MD [address] [facility] [address] [place], [place] [phone] Subchronic schizophrenia (Primary Dx) Social History Tobacco [...] on file documented as of this encounter Procedures Procedure Name Priority Date/Time Associated Diagnosis Comments CBC AND DIFFERENTIAL Routine 02/20/2017 11:31 AM EDT Subchronic schizophrenia documented in this encounter Results * (ABNORMAL) CBC and differential (02/20/2017 11:31 AM EDT) WBC 5.82 3.40 - 11.20 K/uL [facility] RBC 4.00 3.80 - 4.80 M/uL [facility] HGB 12.0 12.0 - 15.0 g/dL [facility] HCT 36.0 36.0 - 46.0 % [facility] PLT 218 130 - 400 K/uL [facility] MCV 90.0 79.0 - 98.0 fL [facility] MCH 30.0 27.0 - 34.8 pg [facility] MCHC 33.3 31.5 - 36.0 g/dL [facility] RDW 13.2 10.8 - 14.6 % [facility] MPV 10.7 9.4 - 12.4 fl [facility] NRBC 0.00 /100 WBCs [facility] ABSOLUTE NRBC 0.00 K/uL [facility] DIFF METHOD Auto [facility] NEUTS 52.6 45.30 - 77.70 % [facility] LYMPHS 29.9 12.30 - 39.70 % [facility] MONOS 8.1 4.10 - 12.80 % [facility] EOS 8.4(H) 0 - 7.2 % [facility] BASOS 0.7 0 - 2.80 % [facility] Granulocytes, immature (%) 0.3 0.0 - 0.9 % [facility] ABSOLUTE NEUTS 3.06 1.40 - 7.70 K/uL [facility] ABSOLUTE LYMPHS 1.74 0.60 - 3.20 K/uL [facility] ABSOLUTE MONOS 0.47 0.11 - 0.59 K/uL [facility] ABSOLUTE EOS 0.49 0.01 - 0.50 K/uL [facility] ABSOLUTE BASOS 0.04 0.00 - 0.08 K/uL [facility] Granulocytes, immature 0.02 0.00 - 0.05 K/uL [facility] Blood 02/20/2017 11:3 1 AM EDT 02/20/2017 11:34 AM EDT us Vinay Serrano MD LAB BLOOD ORDERABLES Final Result [facility] [address] [place] [address] documented in this encounter Visit Diagnoses Diagnosis Subchronic schizophrenia- Primary Unspecified schizophrenia, subchronic condition documented in this encounter Additional Health Concerns Infection Onset Date Last Indicated Resolved Time CoV-Risk Comment:Neg covid 05/20/2022 05/21/2022 05/22/2022 6:[address] CoV-Risk 01/17/2024 01/17/2024 01/28/2024 1:22 AM EDT documented as of this encounter Care Teams Stoper Relationship Specialty Start Date End Date Al Alcantara MD [address] [place] [address] [email or web address] PCP - General 02/04/17 06/09/19 Al Alcantara MD [address] [place] [address] [email or web address] PCP - General Family Medicine 06/10/19 09/28/19 Callum Field MD [address] [place] [address] [email or web address] PCP - General Family Medicine 09/29/19 12/27/22 Callum Field MD [address] [place] [address] [email or web address] PCP - General Family Medicine 12/28/22 12/23/23 Callum Field MD [address] [place] [address] [email or web address] PCP - General Family Medicine 12/24/23 documented as of this encounter Additional Source Comments The information contained in this document represents components of the legal health record. It is not the complete legal health record.[facility]
--- OUTSIDE RECORDS SUMMARY | 2025-02-19 10:17 | XMS_ITS | Encounter Summary ---
Author Organization [facility] Address [address] [facility] [address] [place] [address] Phone Care Team Providers Care Foot Tender Name Role Phone Callum Field MD Primary Care Provider Callum Field MD Primary Care Provider [phone] Callum Feild MD Primary Care Provider [phone] Encounter Details Date Type Department Care Team (Late st Contact Info) Description 01/19/2022 Procedure Pass [facility], Ct Scan - [facility] [address] [place], [place] [phone] Social History Tobacco Use Types Packs/Day Years [...] 12:59 PM EDT Christy Duron RN * [place] Suicide Severity Rating Scale (Screener/Recent Self-Report) Question [...] documented as of this encounter Care Teams Foot Tender Relationship Specialty Start Date End Date Callum Field MD [email or web address] PCP - General Family Medicine 09/29/19 12/27/22 Callum Field MD [email or web address] PCP - General Family Medicine 12/28/22 12/23/23 Callum Field MD [address] [place] [address] [email or web address] PCP - General Family Medicine 12/24/23 documented as of this encounter Additional Source Comments The information contained in this document represents components of the legal health record. It is not the complete legal health record.[facility]
--- OUTSIDE RECORDS SUMMARY | 2025-02-19 10:17 | XMS_ITS | Encounter Summary ---
Author Organization [facility] Address [address] [place] [address] Phone Care Team Providers Care Public Health Sanitarian Name Role Phone Al Alcantaar MD Primary Care Provider [phone] Al Alcantara MD Primary Care Provider Callum Field MD Primary Care Provider [phone] Callum Field MD Primary Care Provider [phone] Callum Field MD Primary Care Provider [phone] Encounter Details Date Type Department Care Team (Late st Contact Info) Description 01/08/2018 Transcribe Orders [facility] Laboratory 30 [place], [place] [phone] Vinay Serrano MD 50 [place], [place] [phone] Social History Tobacco Use Types Packs/Day Years [...] documented as of this encounter Care Teams Public Health Sanitarian Relationship Specialty Start Date End Date Al Alcantara MD [address] [place] [address] [email or web address] PCP - General 02/04/17 06/09/19 Al Alcantara MD [address] [place] [address] [email or web address] PCP - General Family Medicine 06/10/19 09/28/19 Callum Field MD [address] [place] [address] [email or web address] PCP - General Family Medicine 09/29/19 12/27/22 Callum Field MD [address] [place] [address] [email or web address] PCP - General Family Medicine 12/28/22 12/23/23 Callum Field MD [address] [place] [address] [email or web address] PCP - General Family Medicine 12/24/23 documented as of this encounter Additional Source Comments The information contained in this document represents components of the legal health record. It is not the complete legal health record.[facility]
--- OUTSIDE RECORDS SUMMARY | 2025-02-19 10:17 | XMS_ITS | Encounter Summary ---
Author Organization [facility] Address [address] [place] [address] Phone Care Team Providers Care High Scaler Name Role Phone Al Alcantara MD Primary Care Provider Al Alcantara MD Primary Care Provider [phone] Callum Field MD Primary Care Provider [phone] Callum Field MD Primary Care Provider [phone] Callum Field MD Primary Care Provider [phone] Encounter Details Date Type Department Care Team (Latest Contact Info) Description 04/02/2017 Transcribe Orders [facility] Laboratory [address] [place] [address] Vinay Serrano MD [address] [place], [place] [phone] Subchronic schizophrenia (Primary Dx) Social History Tobacco [...] EST) WBC 7.60 3.40 - 11.20 K/uL [facility] RBC 3.80 3.80 - 4.80 M/uL [facility] HGB 11.4(L) 12.0 - 15.0 g/dL [facility] HCT 34.4(L) 36.0 - 46.0 % [facility] PLT 240 130 - 400 K/uL [facility] MCV 90.5 79.0 - 98.0 fL [facility] MCH 30.0 27.0 - 34.8 pg [facility] MCHC 33.1 31.5 - 36.0 g/dL [facility] RDW 13.3 10.8 - 14.6 % [facility] MPV 10.7 9.4 - 12.4 fl [facility] NRBC 0.00 /100 WBCs [facility] ABSOLUTE NRBC 0.00 K/uL [facility] DIFF METHOD Auto [facility] NEUTS 63.0 45.30 - 77.70 % [facility] LYMPHS 22.0 12.30 - 39.70 % [facility] MONOS 9.2 4.10 - 12.80 % [facility] EOS 4.7 0 - 7.2 % [facility] BASOS 0.8 0 - 2.80 % [facility] Granulocytes, immature (%) 0.3 0.0 - 0.9 % [facility] ABSOLUTE NEUTS 4.79 1.40 - 7.70 K/uL [facility] ABSOLUTE LYMPHS 1.67 0.60 - 3.20 K/uL [facility] ABSOLUTE MONOS 0.70(H) 0.11 - 0.59 K/uL [facility] ABSOLUTE EOS 0.36 0.01 - 0.50 K/uL [facility] ABSOLUTE BASOS 0.06 0.00 - 0.08 K/uL [facility] Granulocytes, immature 0.02 0.00 - 0.05 K/uL [facility] Blood 04/02/2017 2:23 PM EST 04/02/2017 2:25 PM EST Vinay Serrano MD LAB BLOOD ORDERABLES Final Result [facility] [address] [place] [address] documented in this encounter Visit Diagnoses Diagnosis Subchronic schizophrenia- Primary Unspecified schizophrenia, subchronic condition documented in this encounter Additional Health Concerns Infection Onset Date Last Indicated Resolved Time CoV-Risk Comment:Neg covid 05/20/2022 05/21/2022 05/22/2022 6:[address] CoV-Risk 01/17/2024 01/17/2024 01/28/2024 1:22 AM EDT documented as of this encounter Care Teams High Scaler Relationship Specialty Start Date End Date Al Alcantara MD [address] [place] [id number] PCP - General 02/04/17 06/09/19 Al Alcantara MD [address] [place] [id number] PCP - General Family Medicine 06/10/19 09/28/19 Callum Field MD [address] [place] [address] [email or web address] PCP - General Family Medicine 09/29/19 12/27/22 Callum Field MD [address] [place] [address] PCP - General Family Medicine 12/28/22 12/23/23 Callum Field MD [address] [place] [address] [email or web address] PCP - General Family Medicine 12/24/23 documented as of this encounter Additional Source Comments The information contained in this document represents components of the legal health record. It is not the complete legal health record.[facility]
--- OUTSIDE RECORDS SUMMARY | 2025-02-19 10:17 | XMS_ITS | Encounter Summary ---
Author Organization [facility] Address [address] [place] [address] Phone Care Team Providers Care Mobile Home Installer Name Role Phone Al Alcantara MD Primary Care Provider [phone] Al Alcantara MD Primary Care Provider [phone] Callum Field MD Primary Care Provider Callum Field MD Primary Care Provider [phone] Callum Field MD Primary Care Provider [phone] Encounter Details Date Type Department Care Team (Latest Contact Info) Description 05/28/2017 Transcribe Orders [facility] Laboratory [address] [place], [place] [phone] Vinay Serrano MD [address] [place], [place] [phone] Chronic schizophrenia (Primary Dx) Social History Tobacco [...] EST) WBC 7.56 3.40 - 11.20 K/uL [facility] RBC 3.57(L) 3.80 - 4.80 M/uL [facility] HGB 10.8(L) 12.0 - 15.0 g/dL [facility] HCT 33.1(L) 36.0 - 46.0 % [facility] PLT 258 130 - 400 K/uL [facility] MCV 92.7 79.0 - 98.0 fL [facility] MCH 30.3 27.0 - 34.8 pg [facility] MCHC 32.6 31.5 - 36.0 g/dL [facility] RDW 13.9 10.8 - 14.6 % [facility] MPV 10.2 9.4 - 12.4 fl [facility] NRBC 0.00 /100 WBCs [facility] ABSOLUTE NRBC 0.00 K/uL [facility] DIFF METHOD Auto [facility] NEUTS 71.5 45.30 - 77.70 % [facility] LYMPHS 19.8 12.30 - 39.70 % [facility] MONOS 6.5 4.10 - 12.80 % [facility] EOS 1.5 0 - 7.2 % [facility] BASOS 0.4 0 - 2.80 % [facility] Granulocytes, immature (%) 0.3 0.0 - 0.9 % [facility] ABSOLUTE NEUTS 5.41 1.40 - 7.70 K/uL [facility] ABSOLUTE LYMPHS 1.50 0.60 - 3.20 K/uL [facility] ABSOLUTE MONOS 0.49 0.11 - 0.59 K/uL [facility] ABSOLUTE EOS 0.11 0.01 - 0.50 K/uL [facility] ABSOLUTE BASOS 0.03 0.00 - 0.08 K/uL [facility] Granulocytes, immature 0.02 0.00 - 0.05 K/uL [facility] Blood 05/28/2017 3:23 PM EST 05/28/2017 3:25 PM EST us Vinay Serrano MD LAB BLOOD ORDERABLES Final Result [facility] [address] [place] [address] documented in this encounter Visit Diagnoses Diagnosis Chronic schizophrenia- Primary Unspecified schizophrenia, chronic condition documented in this encounter Additional Health Concerns Infection Onset Date Last Indicated Resolved Time CoV-Risk Comment:Neg covid 05/20/2022 05/21/2022 05/22/2022 6:[address] CoV-Risk 01/17/2024 01/17/2024 01/28/2024 1:22 AM EDT documented as of this encounter Care Teams Mobile Home Installer Relationship Specialty Start Date End Date Al Alcantara MD [address] [place] [address] [email or web address] - [email or web address] 02/04/17 06/09/19 Al Alcantara MD [address] [place] [address] [email or web address] PCP - General Family Medicine 06/10/19 09/28/19 Callum Field MD [address] [place] [address] PCP - General Family Medicine 09/29/19 12/27/22 Callum Field MD [address] [place] [address] PCP - General Family Medicine 12/28/22 12/23/23 Callum Field MD [address] [place] [address] PCP - General Family Medicine 12/24/23 documented as of this encounter Additional Source Comments The information contained in this document represents components of the legal health record. It is not the complete legal health record.[facility]
--- OUTSIDE RECORDS SUMMARY | 2025-02-19 10:17 | XMS_ITS | Encounter Summary ---
Author Organization [facility] Address [address] [place] [address] Phone Care Team Providers Care Senior Ux Developer Name Role Phone Callum Field MD Primary Care Provider [phone] Callum Field MD Primary Care Provider [phone] Callum Field MD Primary Care Provider [phone] Encounter Details Date Type Department Care Team (Late st Contact Info) Description 09/25/2022 Transcribe Orders Virtual Department [address] [place] [address] Mei Rodriguez MD [address] [place] [address] [email or web address] Osteopenia, unspecified location Social History Tobacco Use [...] as of this encounter Care Teams Senior Ux Developer Relationship Specialty Start Date End Date Callum Field MD [email or web address] PCP - General Family Medicine 09/29/19 12/27/22 Callum Field MD PCP - General Family Medicine 12/28/22 12/23/23 Callum Field MD [address] [place] [address] [email or web address] PCP - General Family Medicine 12/24/23 documented as of this encounter Additional Source Comments The information contained in this document represents components of the legal health record. It is not the complete legal health record.[facility]
--- OUTSIDE RECORDS SUMMARY | 2025-02-19 10:17 | XMS_ITS | Encounter Summary ---
Author Organization [facility] Address [address] [place] [address] Phone Care Team Providers Care Place Change Roof Bolter Name Role Phone Callum Field MD Primary Care Provider [phone] Callum Field MD Primary Care Provider [phone] Callum Field MD Primary Care Provider [phone] Encounter Details Date Type Department Care Team (Late st Contact Info) Description 09/25/2022 Ancillary Orders Virtual Department [address] [place] [address] Mei Rodriguez MD [address] [place] [address] [email or web address] Osteopenia, unspecified location; Other specified disorders of [...] documented as of this encounter Care Teams Place Change Roof Bolter Relationship Specialty Start Date End Date Callum Field MD [email or web address] PCP - General Family Medicine 09/29/19 12/27/22 Callum Field MD [email or web address] PCP - General Family Medicine 12/28/22 12/23/23 Callum Field MD [address] [place] [address] [email or web address] PCP - General Family Medicine 12/24/23 documented as of this encounter Additional Source Comments The information contained in this document represents components of the legal health record. It is not the complete legal health record.[facility]
--- OUTSIDE RECORDS SUMMARY | 2025-02-19 10:17 | XMS_ITS | Encounter Summary ---
Author Organization [facility] Address [address] [place] [address] Phone Care Team Providers Care Medical Facilities Section Director Name Role Phone Al Alcantara MD Primary Care Provider [phone] Al Alcantara MD Primary Care Provider [phone] Callum Field MD Primary Care Provider [phone] Callum Field MD Primary Care Provider [phone] Callum Field MD Primary Care Provider Encounter Details Date Type Department Care Team (Latest Contact Info) Description 05/01/2017 Transcribe Orders [facility] Laboratory [address] [place] [address] Vinay Serrano MD [address] [place], [place] [phone] Subchronic schizophrenia (Primary Dx) Social History Tobacco [...] EST) WBC 6.68 3.40 - 11.20 K/uL [facility] RBC 3.53(L) 3.80 - 4.80 M/uL [facility] HGB 10.6(L) 12.0 - 15.0 g/dL [facility] HCT 33.0(L) 36.0 - 46.0 % [facility] PLT 351 130 - 400 K/uL [facility] MCV 93.5 79.0 - 98.0 fL [facility] MCH 30.0 27.0 - 34.8 pg [facility] MCHC 32.1 31.5 - 36.0 g/dL [facility] RDW 14.2 10.8 - 14.6 % [facility] MPV 10.0 9.4 - 12.4 fl [facility] NRBC 0.00 /100 WBCs [facility] ABSOLUTE NRBC 0.00 K/uL [facility] DIFF METHOD Auto [facility] NEUTS 64.6 45.30 - 77.70 % [facility] LYMPHS 20.7 12.30 - 39.70 % [facility] MONOS 9.1 4.10 - 12.80 % [facility] EOS 4.3 0 - 7.2 % [facility] BASOS 1.2 0 - 2.80 % [facility] Granulocytes, immature (%) 0.1 0.0 - 0.9 % [facility] ABSOLUTE NEUTS 4.31 1.40 - 7.70 K/uL [facility] ABSOLUTE LYMPHS 1.38 0.60 - 3.20 K/uL [facility] ABSOLUTE MONOS 0.61(H) 0.11 - 0.59 K/uL [facility] ABSOLUTE EOS 0.29 0.01 - 0.50 K/uL [facility] ABSOLUTE BASOS 0.08 0.00 - 0.08 K/uL [facility] Granulocytes, immature 0.01 0.00 - 0.05 K/uL [facility] Blood 05/01/2017 10:5 1 AM EST 05/01/2017 10:53 AM EST Vinay Serrano MD LAB BLOOD ORDERABLES Final Result [facility] [address] [place] [address] documented in this encounter Visit Diagnoses Diagnosis Subchronic schizophrenia- Primary Unspecified schizophrenia, subchronic condition documented in this encounter Additional Health Concerns Infection Onset Date Last Indicated Resolved Time CoV-Risk Comment:Neg covid 05/20/2022 05/21/2022 05/22/2022 6:[address] CoV-Risk 01/17/2024 01/17/2024 01/28/2024 1:22 AM EDT documented as of this encounter Care Teams Medical Facilities Section Director Relationship Specialty Start Date End Date Al Alcantara MD [address] [place] [address] [email or web address] - General 02/04/17 06/09/19 Al Alcantara MD [address] [place] [address] [email or web address] PCP - General Family Medicine 06/10/19 09/28/19 Callum Field MD [address] [place] [address] [email or web address] PCP - General Family Medicine 09/29/19 12/27/22 Callum Field MD [address] [place] [address] [email or web address] PCP - General Family Medicine 12/28/22 12/23/23 Callum Field MD [address] [place] [address] PCP - General Family Medicine 12/24/23 documented as of this encounter Additional Source Comments The information contained in this document represents components of the legal health record. It is not the complete legal health record.[facility]
--- OUTSIDE RECORDS SUMMARY | 2025-02-19 10:17 | XMS_ITS | Encounter Summary ---
Author Organization [facility] Address [address] [place] [address] Phone Care Team Providers Care Legal Support Specialist Name Role Phone Al Alcantara MD Primary Care Provider [phone] Al Alcantara MD Primary Care Provider [phone] Callum Field MD Primary Care Provider [phone] Callum Field MD Primary Care Provider [phone] Callum Field MD Primary Care Provider [phone] Encounter Details Date Type Department Care Team (Latest Contact Info) Description 06/25/2017 Transcribe Orders [facility] Laboratory [address] [place] [address] Vinay Serrano MD [address] [place], [place] [phone] Subchronic schizophrenia (Primary Dx) Social History Tobacco [...] EST) WBC 7.99 3.40 - 11.20 K/uL [facility] RBC 3.48(L) 3.80 - 4.80 M/uL [facility] HGB 10.8(L) 12.0 - 15.0 g/dL [facility] HCT 31.6(L) 36.0 - 46.0 % [facility] PLT 247 130 - 400 K/uL [facility] MCV 90.8 79.0 - 98.0 fL [facility] MCH 31.0 27.0 - 34.8 pg [facility] MCHC 34.2 31.5 - 36.0 g/dL [facility] RDW 14.1 10.8 - 14.6 % [facility] MPV 10.3 9.4 - 12.4 fl [facility] NRBC 0.00 /100 WBCs [facility] ABSOLUTE NRBC 0.00 K/uL [facility] DIFF METHOD Auto [facility] NEUTS 70.6 45.30 - 77.70 % [facility] LYMPHS 18.9 12.30 - 39.70 % [facility] MONOS 6.9 4.10 - 12.80 % [facility] EOS 2.5 0 - 7.2 % [facility] BASOS 0.8 0 - 2.80 % [facility] Granulocytes, immature (%) 0.3 0.0 - 0.9 % [facility] ABSOLUTE NEUTS 5.65 1.40 - 7.70 K/uL [facility] ABSOLUTE LYMPHS 1.51 0.60 - 3.20 K/uL [facility] ABSOLUTE MONOS 0.55 0.11 - 0.59 K/uL [facility] ABSOLUTE EOS 0.20 0.01 - 0.50 K/uL [facility] ABSOLUTE BASOS 0.06 0.00 - 0.08 K/uL [facility] Granulocytes, immature 0.02 0.00 - 0.05 K/uL [facility] Blood 06/25/2017 12:0 5 PM EST 06/25/2017 12:08 PM EST us Vinay Serrano MD LAB BLOOD ORDERABLES Final Result [facility] [address] [facility] [place] [address] documented in this encounter Visit Diagnoses Diagnosis Subchronic schizophrenia- Primary Unspecified schizophrenia, subchronic condition documented in this encounter Additional Health Concerns Infection Onset Date Last Indicated Resolved Time CoV-Risk Comment:Neg covid 05/20/2022 05/21/2022 05/22/2022 6:[address] CoV-Risk 01/17/2024 01/17/2024 01/28/2024 1:22 AM EDT documented as of this encounter Care Teams Legal Support Specialist Relationship Specialty Start Date End Date Al Alcantara MD [address] [place] [address] [email or web address] - [email or web address] 02/04/17 06/09/19 Al Alcantara MD [address] [place] [address] [email or web address] - General Family Medicine 06/10/19 09/28/19 Callum Field MD [address] [place] [address] [email or web address] PCP - General Family Medicine 09/29/19 12/27/22 Callum Field MD [address] [place] [address] [email or web address] PCP - General Family Medicine 12/28/22 12/23/23 Callum Field MD [address] [place] [address] [email or web address] PCP - General Family Medicine 12/24/23 documented as of this encounter Additional Source Comments The information contained in this document represents components of the legal health record. It is not the complete legal health record.[facility]
--- OUTSIDE RECORDS SUMMARY | 2025-02-19 10:17 | XMS_ITS | Clinical Summary ---
Author Organization [facility] Address [address] [facility] [address] [place] [address] Phone Care Team Providers Care Office Manager Executive Assistant Name Role Phone Callum Field MD Primary Care Provider [phone] Allergies Active Allergy Reactions Criticality Noted Date [...] daily as needed (Anxiety). Last filled at [facility] [place], [place] 01/06/24 01/06/2024 Active cloZAPine (CLOZARIL) 50 MG [...] intake. She is taking good fluids today Encounters Date Type Department Care Team Description 02/12/2025 8:37 AM EDT - 02/12/2025 11:59 PM EDT Hospital Encounter [facility] [address] [place] [address] Sage Younger, CARI Discharge Disposition: Home or Self Care 02/12/2025 Transcribe Orders [facility] Specimen Processing [address] [place] [address] Sage Younger NP Polypharmacy (Primary Dx); Subchronic schizophrenia 02/09/2025 2:55 PM EDT - 02/09/2025 11:59 PM EDT Hospital Encounter [facility], Bone Density - [facility] [address] [place] [address] Serafin Suarez DO Discharge Disposition: Home or Self Care from Last 3 Months Family History Medical History Relation Comments Psychiatric [...] 01/17/2024 10:20 AM EDT Plan of Treatment Health Maintenance Due Date Last Done Comments BLOOD PRESSURE 1950 HEMOGLOBIN A1C 1950 DEPRESSION SCREENING 1963 SMOKING Hx and SMOKELESS TOBACCO SCREENING 1964 HEPATITIS C SCREENING 1969 LIPID PANEL 1969 MAMMOGRAM 1991 COLOGUARD 1996 FIT TEST 1996 FOBT 1996 SIGMOIDOSCOPY 1996 VIRTUAL COLONOSCOPY 1996 ZOSTER VACCINES (2 of 3) 10/09/2011 08/14/2011 Adult Td,Tdap Booster 01/10/2021 01/10/2011 DIABETIC EYE EXAM 06/25/2024 INFLUENZA VACCINE (#1) 2024 , 03/06/2018, 02/28/2017, Additional history exists COVID-19 VACCINE ( season) 2024 07/12/2020, 06/14/2020 ABSOLUTE NEUTROPHIL COUNT (ANC) 03/12/2025 02/12/2025, 08/25/2024, 08/11/2024, Additional history exists CREATININE LEVEL 06/25/2025 06/25/2024, , 05/24/2022, Additional history exists POTASSIUM LEVEL 06/25/2025 06/25/2024, 12/22, 05/24/2022, Additional history exists TSH LEVEL 07/01/2025 07/01/2024, 04/24, 04/14/2017 RSV VACCINE (1 - 1-dose 75+ series) 2026 COLONOSCOPY 03/05/2028 03/05/2018 COLORECTAL CANCER SCREENING 03/05/2028 PNEUMOCOCCAL VACCINES (50+ years) Completed 11/28/2017, 09/06/2016, 08/14/2011 OSTEOPOROSIS SCREENING INITIAL (ONE-TIME) Completed 02/09/2025 HEPATITIS A VACCINES Aged Out No long [...] Associated Diagnosis Comments CBC AND DIFFERENTIAL Routine 02/12/2025 7:34 AM EDT Polypharmacy Subchronic schizophrenia BD DXA AXIAL (SPINE) WITH HIP Routine 02/09/2025 3:37 PM EDT Asymptomatic menopausal state TSH Routine 07/01/2024 5:45 AM EDT Other specified diabetes mellitus with other specified complication, unspecified whether assisted insulin use Hypothyroidism, unspecified type Schizophrenia, unspecified type COMPREHENSIVE METABOLIC PANEL Routine 06/25/2024 5:10 AM EST Diverticulitis Other specified diabetes mellitus with other specified complication, unspecified whether emt intermediate insulin use ENDOSCOPY, COLON 03/05/2018 9:09 AM EST from Last 3 Months or Most Recently Relevant to Health Maintenance Results * (ABNORMAL) CBC and differential (02/12/2025 7:34 AM EDT) WBC 5.07 4.00 - 11.00 K/uL [facility] RBC 3.72(L) 4.00 - 5.20 M/uL [facility] HGB 11.3(L) 12.0 - 16.0 g/dL [facility] HCT 34.5(L) 36.0 - 46.0 % [facility] PLT 223 150 - 450 K/uL [facility] MCV 92.7 80.0 - 100.0 fL [facility] MCH 30.4 27.0 - 31.0 pg [facility] MCHC 32.8 32.0 - 36.0 g/dL [facility] RDW 13.8 11.5 - 14.5 % [facility] MPV 10.2 8.4 - 12.0 fL [facility] NRBC 0.00 0.00 /100 WBCs [facility] ABSOLUTE NRBC 0.00 0.00 K/uL [facility] DIFF METHOD Auto [facility] NEUTS 53.8 48.0 - 76.0 % [facility] LYMPHS 31.8 18.0 - 41.0 % [facility] MONOS 9.5 4.0 - 11.0 % [facility] EOS 3.7 0.0 - 5.0 % [facility] BASOS 1.0 0.0 - 1.5 % [facility] Granulocytes, immature (%) 0.2 0.0 - 0.9 % [facility] ABSOLUTE NEUTS 2.73 1.92 - 7.60 K/uL [facility] ABSOLUTE LYMPHS 1.61 0.72 - 4.10 K/uL [facility] ABSOLUTE MONOS 0.48 0.16 - 1.10 K/uL [facility] ABSOLUTE EOS 0.19 0.00 - 0.50 K/uL [facility] ABSOLUTE BASOS 0.05 0.00 - 0.15 K/uL [facility] Granulocytes, immature 0.01 0.00 - 0.09 K/uL [facility] Blood 02/12/2025 7:34 AM EDT 02/12/2025 8:42 AM EDT us Sage Younger NP LAB BLOOD ORDERABLES Final Result [facility] [address] [place] [address] * BD DXA AXIAL (SPINE) WITH HIP (02/09/2025 3:37 PM EDT) Anatomical Region Laterality Modality Bone Density Bone Density 02/09/2025 3:27 PM EDT Impressions 02/11/2025 9:30 AM EDT Interpretation: Osteopenia. Narrative 02/11/2025 9:30 AM EDT Referred By: SERAFIN SUAREZ Indications: Postmenopausal Scanner: Onfido A with serial# of [id number] located at [facility] Bone Density Scan (DXA) 02/09/25 Details [...] -2.5), or Osteoporosis (T-score <= -2.5). At [facility], T-scores are compared to peak bone [...] Referred By: SERAFIN SUAREZ Indications: Postmenopausal Scanner: Onfido A with serial# of [id number] located at [facility] Bone Density Scan (DXA) 02/09/25 Details of [...] -2.5), or Osteoporosis (T-score <= -2.5). At [facility], T-scores are compared to peak bone [...] andprior bone density results. IMPRESSION: Interpretation: Osteopenia. us Serafin Suarez DO IMG BD BONE DENSITY DEXA Final R esult * (ABNORMAL) TSH (07/01/2024 5:45 AM EDT) TSH 10.70(H) 0.27 - 4.20 uIU/mL [facility] Blood 07/01/2024 5:45 AM EDT 07/01/2024 8:10 AM EDT Katelynn Marsh [employer]AM[employer] LAB BLOOD ORDERABLES Final Resul t Performing Organization Address City/State/[facility] Co de Phone Number [address] [address] * (ABNORMAL) Comprehensive metabolic panel (06/25/2024 5:10 AM EST) Pathologist [facility] SODIUM 144 133 - 146 mmol/L [facility] POTASSIUM 4.8 3.3 - 5.1 mmol/L [facility] CHLORIDE 108 96 - 108 mmol/L [facility] CO2 25 21 - 35 mmol/L [facility] BUN 25(H) 6 - 19 mg/dL [facility] CREATININE 1.20 0.5 - 1.5 mg/dL [facility] GLUCOSE 100(H) 70 - 99 mg/dL [facility] ALBUMIN 3.5(L) 3.9 - 4.8 g/dL [facility] TOTAL PROTEIN 5.3(L) 6.5 - 8.0 g/dL [facility] CALCIUM 8.8 8.4 - 10.3 mg/dL [facility] ALKALINE PHOSPHATASE 143(H) 39 - 117 U/L [facility] TOTAL BILIRUBIN 0.3 0.0 - 1.2 mg/dL [facility] AST 21 0 - 37 U/L [facility] ALT 23 0 - 40 U/L [facility] GLOBULIN 1.8 1 - 4.8 g/dL [facility] EGFR 48(L) >59 mL/min/1.7 3m2 [facility] Comment:Estimated glomerular filtration rate calculated using the CKD-EPI refit equation. ANION GAP 16 10 - 20 mmol/L [facility] Blood 06/25/2024 5:10 AM EST 06/25/2024 8:41 AM EST us Katelynn Marsh NP LAB BLOOD ORDERABLES Final Resul t [facility] [address] [place] [address] * ENDOSCOPY, COLON (03/05/2018 9:09 AM EST) Narrative Transcriptions Shan Cote MD - 03/05/2018 9:09 AM EST Patient Name: Deedee Yusef Attending MD:: SHAN COTE MD Procedure Date: 03/05/2018 9:09 AM Date of : 1950 Age: 67 Admit Type: Outpatient Gender: Female Room: [facility] 05 Referring MD: SUZY LUNDY MD [...] 9:09 AM Procedure Code(s): --- Professional --- 81873, Colonoscopy, flexible; with biopsy, single or multiple --- Technical --- 93389, Colonoscopy, flexible; with biopsy, single or multiple [...] perforation orabscess without bleeding CPT copyright 2016 [employer]. All rights reserved. The codes documented in this report are preliminary and upon copra sampler reviewmay be revised to meet current compliance requirements. [address] [place] [address] Suzy Lundy MD GI PROCEDURE ORDERABLES Final R esult from Last 3 Months or Most Recently Relevant to Health Maintenance [place] BL[place] [employer] HMO [place] [address] [place] [address] MEDICARE HMO BLUE REPLACEMENT [employer] HMO [place] [address] [place] [address] MEDICARE HMO BLUE REPLACEMENT [place] MED[employer] HMO BLUE REPLACEMENT [place] BLUE REPLACEMENT Advance Directives For more information, please contact: [phone] (9AM - 5PM [facility], Saturday-Saturday) Documents on File Type Date Recorded Patient Manager Pmo Expl anation Healthcare Proxy 05/25/2022 2:05 PM * Full Code (Latest Code Status on File) Date Activated Date Inactivated Comments 05/22/2022 12:26 AM Question Answer Comments Code Status Confirmed With: Patient * Full Code (Confirmed) Date Activated Date Inactivated Comments 04/14/2017 4:14 AM 04/19/2017 3:46 PM Question Answer Comments Code Discussion Comments: Patient Care Teams Office Manager Executive Assistant Relationship Specialty Start Date End Date Callum Field MD [address] [place] [phone] PCP - General Family Medicine 12/24/23 Additional Source Comments The information contained in this document represents components of the legal health record. It is not the complete legal health record.[facility]
--- OUTSIDE RECORDS SUMMARY | 2025-02-19 10:17 | XMS_ITS | Encounter Summary ---
Author Organization [facility] Address [address] [facility] [address] [place] [address] Phone Care Team Providers Care Nail Professional Name Role Phone Callum Field MD Primary Care Provider [phone] Callum Field MD Primary Care Provider [phone] Callum Field MD Primary Care Provider [phone] Encounter Details Date Type Department Care Team (Late st Contact Info) Description 05/22/2022 Procedure Pass [facility], Ct Scan - [facility] [address] [place], [place] [id number] Social History Tobacco Use Types Packs/Day Years [...] documented as of this encounter Care Teams Nail Professional Relationship Specialty Start Date End Date Callum Field MD [email or web address] PCP - General Family Medicine 09/29/19 12/27/22 Callum Field MD [email or web address] PCP - General Family Medicine 12/28/22 12/23/23 Callum Field MD [address] [place] [phone] [email or web address] PCP - General Family Medicine 12/24/23 documented as of this encounter Additional Source Comments The information contained in this document represents components of the legal health record. It is not the complete legal health record.[facility]
--- OUTSIDE RECORDS SUMMARY | 2025-02-19 10:17 | XMS_ITS | Encounter Summary ---
Author Organization [facility] Address [address] [place] [address] Phone Care Team Providers Care Director Of Valuation Name Role Phone Al Alcantara MD Primary Care Provider [phone] Al Alcantara MD Primary Care Provider [phone] Callum Field MD Primary Care Provider [phone] Callum Field MD Primary Care Provider [phone] Callum Field MD Primary Care Provider [phone] Encounter Details Date Type Department Care Team (Late st Contact Info) Description 03/05/2018 Procedure Pass [facility] Endoscopy Admitting Dept Virtual Department [address] [place], [place] [id number] Social History Tobacco Use Types Packs/Day Years [...] as of this encounter Care Teams Director Of Valuation Relationship Specialty Start Date End Date Al Alcantara MD [address] [place] [address] [email or web address] PCP - General 02/04/17 06/09/19 Al Alcantara MD [address] [place] [phone] [email or web address] PCP - General Family Medicine 06/10/19 09/28/19 Callum Field MD [address] [place] [phone] [email or web address] PCP - General Family Medicine 09/29/19 12/27/22 Callum Field MD [address] [place] [phone] [email or web address] PCP - General Family Medicine 12/28/22 12/23/23 Callum Field MD [address] [place] [phone] [email or web address] PCP - General Family Medicine 12/24/23 documented as of this encounter Additional Source Comments The information contained in this document represents components of the legal health record. It is not the complete legal health record.[facility]
[2025-03-03] VITALS (7 sets, daily range): BP systolic 123–152; BP diastolic 78–96; PULSE 78–82; RESP 11–21; TEMP 36.1–36.3; O2SAT 92–99; BMI 29.9
[2025-03-03] MEDS: Lactated Ringers 1,000 ML 100 ML IVCONT (06:57)
--- NOTE | 2025-03-03 07:18 | MHC.SHP ---
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 helped by ect 2 x wk Medical History: No relevant PMH Allergies: Allergies Allergy/AdvReac Type Severity Reaction Status Date / Time trifluoperazine (From Allergy Unknown Verified 09/25/24 09:52 Stelazine) Review of Systems Sugical H&P ROS: Negative: Cardiovascular, Respiratory and Neurological and Yes, Specify: Psychiatric (some intrusive thoughts) and Musculoskeletal (gait ) Exam Surgical H&P Exam: Normal: Heart (RRR; no murmurs), Normal: Lungs (CTA b/l throughout) and Normal: Neurological (alert o x3 clear) Plan Diagnosis/Plan: Unchanged I have reviewed the history and physical and performed a pertinent physical examination on my patient. No changes have occurred unless specified. Time Spent With Patient Time: Total time managing care of this patient today ____ minutes.
--- NOTE | 2025-03-03 07:21 | HO.ECTPROC ---
ECT Procedure Note Diagnosis/Treatment Date of Service: 03/04/25 Diagnosis: Schizoaffective Disorder Previous ECT Date: 02/03/25 Current Treatment Number: Other (21) Treatment: Maintenance Interval Clinical Notes: mood stable;occ negative intrusive hallucinations no command to self harm states doing well no c/o side effects agreeable to ongoing tx . Patient states she finds the every 2 weeks more helpful for her in intrusive congregational/persecutory thoughts. No self-harming behavior patient does see Dr. Sage jacob. He might consider increasing clozapine Time: Total time managing care of this patient today __30__ minutes. ECT Settings Device: THYMATRON DGx Electrode Placement: Bifrontal Program/Pulse Width: 0.50 Energy Percent: 100 Seizure Duration By EEG (in seconds): 32 Medications Administration General Anesthetic: Etomidate (12) Muscle Relaxant: Succinylcholine (80) Ancillary Medications Anti-emetics: Zofran - Pre ECT (4) Miscillaneous Medications: Propofol (30) Airway Management Airway Management: Bag Mask Ventilation Treatment Recommendations No Changes Recommended: No change Pt Tolerated Procedure w/o Issue: Yes
--- NOTE | 2025-03-03 07:21 | HO.ANESPROP2 ---
HPI - Anesthesia Eval Consult details Narrative: 74 yo F presenting for ECT PMFSH Active Problems Active Problems: All Active Problems Fracture of right inferior pubic ramus (Acute) Fracture of superior ramus of right pubis (Acute) Arachnoid cyst (Acute) Diverticulosis (Chronic) Schizophrenia (Acute) Past Medical History Medical History Diverticulosis Schizophrenia CKD (chronic kidney disease) Hyperlipidemia Type 2 diabetes mellitus Hypothyroidism HTN (hypertension) GERD (gastroesophageal reflux disease) Mood disorder Family History Family history of problems with anesthesia: No Surgical History History of Problems with Anesthesia: No Social History Social History Household Members: None Household Members Other:: Lives at [facility] Housing: Assisted Living Facility Do you presently have visiting nurse or other home services: Yes Alcohol intake: current Alcohol intake frequency: does not drink Patient Tobacco Use Status: Never used Tobacco Tobacco use type: Cigarette Cigarette Packs Per Day: 3 Cigarettes Per Day: 60.0 Years Smoked: 16 Second Hand Smoke Exposure: No Advance Directives: No Advance Directives Information Provided: Yes service: No Current occupational status: retired Sexual orientation: Straight/Heterosexual Meds Allergies Allergy/AdvReac Type Severity Reaction Status Date / Time trifluoperazine (From Allergy Unknown Verified 09/25/24 09:52 Stelazine) Active Medications: Current Medications Lactated Ringer's (Lr) 1,000 mls @ 100 mls/hr IVCONT .Q10H YURY Last Admin: 03/03/25 06:57 Dose: 100 mls/hr Home Medications ?Medication ?Instructions ?Recorded ?Confirmed ?Last Taken ?Type acetaminophen 325 mg tablet 650 mg PO Q6H PRN pain/fever 06/22/24 11/25/24 Unknown History hydroxyzine HCl 25 mg tablet 25 mg PO Q6H PRN Anxiety 06/22/24 11/25/24 Unknown History polyethylene glycol 3350 17 gram 17 g PO BEDTIME 06/22/24 11/25/24 06/21/24 20:00 History oral powder packet polyethylene glycol 3350 17 gram 17 g PO DAILY PRN Constipation 06/22/24 11/25/24 Unknown History oral powder packet sennosides 8.6 mg tablet (Senna 8.6 mg PO BEDTIME 06/22/24 11/25/24 06/21/24 20:00 History Lax) sennosides 8.6 mg tablet (senna) 8.6 mg PO DAILY PRN Constipation 06/22/24 11/25/24 Unknown History trazodone 50 mg tablet 50 mg PO BEDTIME 06/22/24 11/25/24 06/21/24 20:00 History trazodone 50 mg tablet 50 mg PO BEDTIME PRN Insomnia 06/22/24 11/25/24 Unknown History bisacodyl 10 mg rectal suppository 10 mg TN DAILY PRN Constipation 07/03/24 11/25/24 Unknown History (Dulcolax (bisacodyl)) magnesium hydroxide 400 mg/5 mL 5 ml PO DAILY PRN Constipation 07/03/24 11/25/24 Unknown History oral suspension (Milk of Magnesia) sennosides 8.6 mg tablet (Senna 8.6 mg PO BEDTIME 07/03/24 11/25/24 Unknown History Lax) sodium phosphates 19 gram-7 118 ml TN DAILY PRN Dehydration 07/03/24 11/25/24 Unknown History gram/118 mL enema (Fleet Enema) cephalexin 500 mg capsule 500 mg PO QID 08/13/24 11/25/24 Unknown History Exam Exam Date and Time: 03/03/25 0700 Height,Weight and Vital Signs: Height 5 ft 6 in Weight 83.915 kg Last Vital Signs Temp 97.3 F 03/03/25 06:39 Pulse 82 03/03/25 06:39 Resp 18 03/03/25 06:39 BP 123/78 03/03/25 06:39 Pulse Ox 94 03/03/25 06:39 O2 Del Method Room Air 03/03/25 06:39 Airway Mallampati Class: I TM Dist: <=3cm Neck ROM: Limited Loose/Missing/Broken Teeth: No (patient denies any loose or broken teeth) Heart: S1S2 Lungs: CTAB Assessment and Plan Assessment Anesthesia Assessment: Anesthesia Plan Discussed and Chart Reviewed Final Anesthetic Review Family History of Problems with Anesthesia: No History of Problems with Anesthesia: No NPO: Yes ASA Class: III Final Preanesthetic Review: No Changes in Pt Med Stat, Meds/Allgs Chart Reviewed, Consent Obtained/Reviewed and Anes Risks/Benef Reviewed Patient Risk: Low Procedure Risk: Intermediate Anesthetic Plan Anesthetic Plan: GA and Agree w/ Assess. and Plan Disposition: Standard PACU
== END 2025-03-03 08:41 | disposition home or self-care (01) ==
PROVIDERS: PCP Internal Medicine; Visit Provider Psychiatry & Neurology Psychiatry
PROC: (CPT 90870; principal; 2025-03-03 07:30)
DX: F25.8 Other schizoaffective disorders (principal); F06.0 Psychotic disorder with hallucinations due to known physiological condition; F39 Unspecified mood [affective] disorder; I12.9 Hypertensive chronic kidney disease with stage 1 through stage 4 chronic kidney disease, or unspecified chronic kidney disease; N18.30 Chronic kidney disease, stage 3 unspecified; E11.22 Type 2 diabetes mellitus with diabetic chronic kidney disease; E78.2 Mixed hyperlipidemia; E03.9 Hypothyroidism, unspecified; K21.9 Gastro-esophageal reflux disease without esophagitis; M54.50 Low back pain, unspecified; Z79.899 Other long term (current) drug therapy; Z88.8 Allergy status to other drugs, medicaments and biological substances
CPT/HCPCS: 90870; J0330; J2405

== ENCOUNTER → 2025-03-03 05:50 | Outpatient (BNV) | payer MEDICARE, MEDICAID, SELFPAY | PROVIDERS: PCP Internal Medicine; Visit Provider Psychiatry & Neurology Psychiatry | DX: F33.2 Major depressive disorder, recurrent severe without psychotic features (principal) | CPT/HCPCS: 90870 ==

== ENCOUNTER 2025-03-17 05:53 | Day surgery (SDC) | payer MEDICARE, MEDICAID, SELFPAY ==
--- OUTSIDE RECORDS SUMMARY | 2025-03-03 10:05 | XMS_ITS | Encounter Summary ---
Author Organization [facility] Address [address] [place] [address] Phone Care Team Providers Care Haulage Engine Operator Name Role Phone Al Alcantara MD Primary Care Provider [phone] Al Alcantara MD Primary Care Provider [phone] Callum Field MD Primary Care Provider [phone] Callum Field MD Primary Care Provider [phone] Callum Field MD Primary Care Provider [phone] Encounter Details Date Type Department Care Team (Latest Contact Info) Description 08/21/2017 Transcribe Orders [facility] Phleb Main [address] [place], [place] [phone] Vinay Serrano MD [address] [place], [place] [phone] Subchronic schizophrenia (Primary Dx) Social History Tobacco [...] documented as of this encounter Care Teams Haulage Engine Operator Relationship Specialty Start Date End Date Al Alcantara MD [address] [place] [address] [email or web address] PCP - General 02/04/17 06/09/19 Al Alcantara MD [address] [place] [address] [email or web address] PCP - General Family Medicine 06/10/19 09/28/19 Callum Field MD [address] [place] [phone] [email or web address] PCP - General Family Medicine 09/29/19 12/27/22 Callum Field MD [address] [place] [phone] PCP - General Family Medicine 12/28/22 12/23/23 Callum Field MD [address] [place] [phone] PCP - General Family Medicine 12/24/23 documented as of this encounter Additional Source Comments The information contained in this document represents components of the legal health record. It is not the complete legal health record.[facility]
--- OUTSIDE RECORDS SUMMARY | 2025-03-03 10:05 | XMS_ITS | Encounter Summary ---
Author Organization [facility] Address [address] [place] [address] Phone Care Team Providers Care Real Estate Underwriter Name Role Phone Al Alcantara MD Primary Care Provider [phone] Al Alcantara MD Primary Care Provider Callum Field MD Primary Care Provider [phone] Callum Field MD Primary Care Provider [phone] Callum Field MD Primary Care Provider [phone] Encounter Details Date Type Department Care Team (Latest Contact Info) Description 11/12/2017 Transcribe Orders [facility] Phleb Main [address] [place], [place] [phone] Vinay Serrano MD [address] [place], [place] [phone] Subchronic schizophrenia (Primary Dx) Social History Tobacco [...] documented as of this encounter Care Teams Real Estate Underwriter Relationship Specialty Start Date End Date Al Alcantara MD [address] [place] [address] [email or web address] PCP - General 02/04/17 06/09/19 Al Alcantara MD [address] [place] [address] [email or web address] PCP - General Family Medicine 06/10/19 09/28/19 Callum Field MD [address] [place] [id number] [email or web address] PCP - General Family Medicine 09/29/19 12/27/22 Callum Field MD [address] [place] [phone] [email or web address] PCP - General Family Medicine 12/28/22 12/23/23 Callum Field MD [address] [place] [address] [email or web address] PCP - General Family Medicine 12/24/23 documented as of this encounter Additional Source Comments The information contained in this document represents components of the legal health record. It is not the complete legal health record.[facility]
--- OUTSIDE RECORDS SUMMARY | 2025-03-03 10:05 | XMS_ITS | Encounter Summary ---
Author Organization [facility] Address [address] [place] [address] Phone Care Team Providers Care Bioinformatics Specialist Name Role Phone Al Alcantara MD Primary Care Provider Al Alcantara MD Primary Care Provider Callum Field MD Primary Care Provider [phone] Callum Field MD Primary Care Provider [phone] Callum Field MD Primary Care Provider [phone] Encounter Details Date Type Department Care Team (Latest Contact Info) Description 02/20/2017 Transcribe Orders [facility] Phlebotomy [address] [place] [address] Vinay Serrano MD [address] [place], [place] [phone] Subchronic schizophrenia (Primary Dx) Social History Tobacco [...] EDT us Vinay Serrano MD LAB BLOOD BKR ORDERABLES Fi nal Result [facility] [address] [place] [address] documented in this encounter Visit Diagnoses Diagnosis Subchronic schizophrenia- Primary Unspecified schizophrenia, subchronic condition documented in this encounter Additional Health Concerns Infection Onset Date Last Indicated Resolved Time CoV-Risk Comment:Neg covid 05/20/2022 05/21/2022 05/22/2022 6:[address] CoV-Risk 01/17/2024 01/17/2024 01/28/2024 1:22 AM EDT documented as of this encounter Care Teams Bioinformatics Specialist Relationship Specialty Start Date End Date Al Alcantara MD [address] [place] [address] PCP - General 02/04/17 06/09/19 Al Alcantara MD [address] [place] [address]487 PCP - General Family Medicine 06/10/19 09/28/19 Callum Field MD [address] [place] [address] PCP - General Family Medicine 09/29/19 12/27/22 Callum Field MD [address] [place] [address] [email or web address] PCP - General Family Medicine 12/28/22 12/23/23 Callum Field MD [address] [place] [address] [email or web address] PCP - General Family Medicine 12/24/23 documented as of this encounter Additional Source Comments The information contained in this document represents components of the legal health record. It is not the complete legal health record.[facility]
--- OUTSIDE RECORDS SUMMARY | 2025-03-03 10:05 | XMS_ITS | Encounter Summary ---
Author Organization [facility] Address [address] [place] [address] Phone Care Team Providers Care It Lead Name Role Phone Callum Field MD Primary Care Provider Callum Field MD Primary Care Provider [phone] Callum Field MD Primary Care Provider [phone] Encounter Details Date Type Department Care Team (Late st Contact Info) Description 05/20/2022 Procedure Pass [facility], Ct Scan - [facility] [address] [place], [place] [id number] Social History Tobacco Use Types Packs/Day Years [...] 05/21/2022 5:07 PM Rena Rodriguez RN * [place] Suicide Severity Rating Scale (Screener/Recent Self-Report) Question [...] documented as of this encounter Care Teams It Lead Relationship Specialty Start Date End Date Callum Field MD [email or web address] PCP - General Family Medicine 09/29/19 12/27/22 Callum Field MD [email or web address] PCP - General Family Medicine 12/28/22 12/23/23 Callum Field MD [address] [place] [address] [email or web address] PCP - General Family Medicine 12/24/23 documented as of this encounter Additional Source Comments The information contained in this document represents components of the legal health record. It is not the complete legal health record.[facility]
--- OUTSIDE RECORDS SUMMARY | 2025-03-03 10:06 | XMS_ITS | Encounter Summary ---
Author Organization [facility] Address [address] [place] [address] Phone Care Team Providers Care Welding Systems And Equipment Repairer Name Role Phone Al Alcantara MD Primary Care Provider [phone] Al Alcantara MD Primary Care Provider [phone] Callum Field MD Primary Care Provider Callum Field MD Primary Care Provider [phone] Callum Field MD Primary Care Provider [phone] Encounter Details Date Type Department Care Team (Latest Contact Info) Description 07/23/2017 Transcribe Orders [facility] Phleb Main [address] [place], [place] [phone] Vinay Serrano MD [address] [place], [place] [phone] Subchronic schizophrenia (Primary Dx) Social History Tobacco [...] EDT) WBC 7.36 3.40 - 11.20 K/uL [facility] RBC 3.69(L) 3.80 - 4.80 M/uL [facility] HGB 11.3(L) 12.0 - 15.0 g/dL [facility] HCT 33.3(L) 36.0 - 46.0 % [facility] PLT 261 130 - 400 K/uL [facility] MCV 90.2 79.0 - 98.0 fL [facility] MCH 30.6 27.0 - 34.8 pg [facility] MCHC 33.9 31.5 - 36.0 g/dL [facility] RDW 13.4 10.8 - 14.6 % [facility] MPV 10.6 9.4 - 12.4 fl [facility] NRBC 0.00 /100 WBCs [facility] ABSOLUTE NRBC 0.00 K/uL [facility] DIFF METHOD Auto [facility] NEUTS 71.9 45.30 - 77.70 % [facility] LYMPHS 18.2 12.30 - 39.70 % [facility] MONOS 7.1 4.10 - 12.80 % [facility] EOS 1.8 0 - 7.2 % [facility] BASOS 0.7 0 - 2.80 % [facility] Granulocytes, immature (%) 0.3 0.0 - 0.9 % [facility] ABSOLUTE NEUTS 5.30 1.40 - 7.70 K/uL [facility] ABSOLUTE LYMPHS 1.34 0.60 - 3.20 K/uL [facility] ABSOLUTE MONOS 0.52 0.11 - 0.59 K/uL [facility] ABSOLUTE EOS 0.13 0.01 - 0.50 K/uL [facility] ABSOLUTE BASOS 0.05 0.00 - 0.08 K/uL [facility] Granulocytes, immature 0.02 0.00 - 0.05 K/uL [facility] Blood 07/23/2017 1:16 PM EDT 07/23/2017 1:18 PM EDT Vinay Serrano MD LAB BLOOD BKR ORDERABLES Fi nal Result [facility] [address] [place] [place] [address] documented in this encounter Visit Diagnoses Diagnosis Subchronic schizophrenia- Primary Unspecified schizophrenia, subchronic condition documented in this encounter Additional Health Concerns Infection Onset Date Last Indicated Resolved Time CoV-Risk Comment:Neg covid 05/20/2022 05/21/2022 05/22/2022 6:[address] CoV-Risk 01/17/2024 01/17/2024 01/28/2024 1:22 AM EDT documented as of this encounter Care Teams Welding Systems And Equipment Repairer Relationship Specialty Start Date End Date Al Alcantara MD [address] [place] [address] [email or web address] PCP - General 02/04/17 06/09/19 Al Alcantara MD [address] [place] [address] [email or web address] PCP - General Family Medicine 06/10/19 09/28/19 Callum Field MD [address] [place] [address] [email or web address] PCP - General Family Medicine 09/29/19 12/27/22 Callum Field MD [address] [place] [address] PCP - General Family Medicine 12/28/22 12/23/23 Callum Field MD [address] [place] [address] [email or web address] PCP - General Family Medicine 12/24/23 documented as of this encounter Additional Source Comments The information contained in this document represents components of the legal health record. It is not the complete legal health record.[facility]
--- OUTSIDE RECORDS SUMMARY | 2025-03-03 10:06 | XMS_ITS | Encounter Summary ---
Author Organization [facility] Address [address] [place] [address] Phone Care Team Providers Care Cleat Thrower Name Role Phone Callum Field MD Primary Care Provider [phone] Encounter Details Date Type Department Care Team (Latest Contact Info) Description 09/07/2024 Transcribe Orders Virtual Department [address] [place] [address] Serafin Suarez DO [address] [place] [address] Asymptomatic menopausal state (Primary Dx) Social History [...] 02/11/2025 9:30 AM EDT Referred By: SERAFIN SAUREZ Indications: Postmenopausal Scanner: [employer] A with serial# of [id number] located at [facility] Bone Density Scan (DXA) 02/09/25 Details of [...] -2.5), or Osteoporosis (T-score <= -2.5). At [facility], T-scores are compared to peak bone density [...] Referred By: SERAFIN SUAREZ Indications: Postmenopausal Scanner: [employer] A with serial# of [id number] located at [facility] Bone Density [...] -2.5), or Osteoporosis (T-score <= -2.5). At [facility], T-scores are compared to peak bone density [...] state documented in this encounter Care Teams Cleat Thrower Relationship Specialty Start Date End Date Callum Field MD [address] [place] [address] [email or web address] PCP - General Family Medicine 12/24/23 documented as of this encounter Additional Source Comments The information contained in this document represents components of the legal health record. It is not the complete legal health record.[facility]
--- OUTSIDE RECORDS SUMMARY | 2025-03-03 10:08 | XMS_ITS | Encounter Summary ---
Author Organization [facility] Address [address] [place] [address] Phone Care Team Providers Care Flexographic Press Helper Name Role Phone Al Alcantara MD Primary Care Provider [phone] Al Alcantara MD Primary Care Provider [phone] Callum Field MD Primary Care Provider [phone] Callum Field MD Primary Care Provider [phone] Callum Field MD Primary Care Provider [phone] Encounter Details Date Type Department Care Team (Latest Contact Info) Description 05/28/2017 Transcribe Orders [facility] Phleb Main [address] [place], [place] [phone] Vinay Serrano MD [address] [place], [place] [phone] Chronic schizophrenia (Primary Dx) Social History Tobacco [...] EST) WBC 7.56 3.40 - 11.20 K/uL [facility] RBC 3.57(L) 3.80 - 4.80 M/uL [facility] HGB 10.8(L) 12.0 - 15.0 g/dL [facility] HCT 33.1(L) 36.0 - 46.0 % [facility] PLT 258 130 - 400 K/uL [facility] MCV 92.7 79.0 - 98.0 fL [facility] MCH 30.3 27.0 - 34.8 pg [facility] MCHC 32.6 31.5 - 36.0 g/dL [facility] RDW 13.9 10.8 - 14.6 % [facility] MPV 10.2 9.4 - 12.4 fl [facility] NRBC 0.00 /100 WBCs [facility] ABSOLUTE NRBC 0.00 K/uL [facility] DIFF METHOD Auto [facility] NEUTS 71.5 45.30 - 77.70 % [facility] LYMPHS 19.8 12.30 - 39.70 % [facility] MONOS 6.5 4.10 - 12.80 % [facility] EOS 1.5 0 - 7.2 % [facility] BASOS 0.4 0 - 2.80 % [facility] Granulocytes, immature (%) 0.3 0.0 - 0.9 % [facility] ABSOLUTE NEUTS 5.41 1.40 - 7.70 K/uL [facility] ABSOLUTE LYMPHS 1.50 0.60 - 3.20 K/uL [facility] ABSOLUTE MONOS 0.49 0.11 - 0.59 K/uL [facility] ABSOLUTE EOS 0.11 0.01 - 0.50 K/uL [facility] ABSOLUTE BASOS 0.03 0.00 - 0.08 K/uL [facility] Granulocytes, immature 0.02 0.00 - 0.05 K/uL [facility] Blood 05/28/2017 3:23 PM EST 05/28/2017 3:25 PM EST us Vinay Serrano MD LAB BLOOD BKR ORDERABLES Fi nal Result [facility] [address] [place] [address] documented in this encounter Visit Diagnoses Diagnosis Chronic schizophrenia- Primary Unspecified schizophrenia, chronic condition documented in this encounter Additional Health Concerns Infection Onset Date Last Indicated Resolved Time CoV-Risk Comment:Neg covid 05/20/2022 05/21/2022 05/22/2022 6:[address] CoV-Risk 01/17/2024 01/17/2024 01/28/2024 1:22 AM EDT documented as of this encounter Care Teams Flexographic Press Helper Relationship Specialty Start Date End Date Al Alcantara MD [address] [place] [address] PCP - General 02/04/17 06/09/19 Al Alcantara MD [address] [place] [address] PCP - General Family Medicine 06/10/19 09/28/19 Callum Field MD [address] [place] [address] PCP - General Family Medicine 09/29/19 12/27/22 Callum Field MD [address] [place] [address] PCP - General Family Medicine 12/28/22 12/23/23 Callum Field MD [address] [place] [address] [email or web address] PCP - General Family Medicine 12/24/23 documented as of this encounter Additional Source Comments The information contained in this document represents components of the legal health record. It is not the complete legal health record.[facility]
--- OUTSIDE RECORDS SUMMARY | 2025-03-03 10:08 | XMS_ITS | Encounter Summary ---
Author Organization [facility] Address [address] [place] [address] Phone Care Team Providers Care Claims Adjudicator Name Role Phone Al Alcantara MD Primary Care Provider [phone] Al Alcantara MD Primary Care Provider Callum Field MD Primary Care Provider [phone] Callum Field MD Primary Care Provider [phone] Callum Field MD Primary Care Provider [phone] Encounter Details Date Type Department Care Team (Latest Contact Info) Description 04/02/2017 Transcribe Orders [facility] Phleb Main [address] [place], [place] [phone] Vinay Serrano MD [address] [place], [place] [address] Subchronic schizophrenia (Primary Dx) Social History Tobacco [...] EST) WBC 7.60 3.40 - 11.20 K/uL [facility] RBC 3.80 3.80 - 4.80 M/uL [facility] HGB 11.4(L) 12.0 - 15.0 g/dL [facility] HCT 34.4(L) 36.0 - 46.0 % [facility] PLT 240 130 - 400 K/uL [facility] MCV 90.5 79.0 - 98.0 fL [facility] MCH 30.0 27.0 - 34.8 pg [facility] MCHC 33.1 31.5 - 36.0 g/dL [facility] RDW 13.3 10.8 - 14.6 % [facility] MPV 10.7 9.4 - 12.4 fl [facility] NRBC 0.00 /100 WBCs [facility] ABSOLUTE NRBC 0.00 K/uL [facility] DIFF METHOD Auto [facility] NEUTS 63.0 45.30 - 77.70 % [facility] LYMPHS 22.0 12.30 - 39.70 % [facility] MONOS 9.2 4.10 - 12.80 % [facility] EOS 4.7 0 - 7.2 % [facility] BASOS 0.8 0 - 2.80 % [facility] Granulocytes, immature (%) 0.3 0.0 - 0.9 % [facility] ABSOLUTE NEUTS 4.79 1.40 - 7.70 K/uL [facility] ABSOLUTE LYMPHS 1.67 0.60 - 3.20 K/uL [facility] ABSOLUTE MONOS 0.70(H) 0.11 - 0.59 K/uL [facility] ABSOLUTE EOS 0.36 0.01 - 0.50 K/uL [facility] ABSOLUTE BASOS 0.06 0.00 - 0.08 K/uL [facility] Granulocytes, immature 0.02 0.00 - 0.05 K/uL [facility] Blood 04/02/2017 2:23 PM EST 04/02/2017 2:25 PM EST us Vinay Serrano MD LAB BLOOD BKR ORDERABLES Fi nal Result [facility] [address] [place] [address] documented in this encounter Visit Diagnoses Diagnosis Subchronic schizophrenia- Primary Unspecified schizophrenia, subchronic condition documented in this encounter Additional Health Concerns Infection Onset Date Last Indicated Resolved Time CoV-Risk Comment:Neg covid 05/20/2022 05/21/2022 05/22/2022 6:[address] CoV-Risk 01/17/2024 01/17/2024 01/28/2024 1:22 AM EDT documented as of this encounter Care Teams Claims Adjudicator Relationship Specialty Start Date End Date Al Alcantara MD [address] [place] [address] [email or web address] PCP - General 02/04/17 06/09/19 Al Alcantara MD [address] [place] [address] [email or web address] PCP - General Family Medicine 06/10/19 09/28/19 Callum Field MD [address] [place] [address] PCP - General Family Medicine 09/29/19 12/27/22 Callum Field MD [address] [place] [address] PCP - General Family Medicine 12/28/22 12/23/23 Callum Field MD [address] [place] [address] PCP - General Family Medicine 12/24/23 documented as of this encounter Additional Source Comments The information contained in this document represents components of the legal health record. It is not the complete legal health record.[facility]
--- OUTSIDE RECORDS SUMMARY | 2025-03-03 10:10 | XMS_ITS | Encounter Summary ---
Author Organization [facility] Address [address] [place] [address] Phone Care Team Providers Care Mail Handler Name Role Phone Callum Field MD Primary Care Provider [phone] Callum Field MD Primary Care Provider [phone] Callum Field MD Primary Care Provider [phone] Encounter Details Date Type Department Care Team (Late st Contact Info) Description 09/25/2022 Transcribe Orders Virtual Department [address] [place] [address] Mei Rodriguez MD [address] [place] [address] [email or web address] Osteopenia, unspecified location Social [...] documented as of this encounter Care Teams Mail Handler Relationship Specialty Start Date End Date Callum Field MD [email or web address] PCP - General Family Medicine 09/29/19 12/27/22 Callum Field MD PCP - General Family Medicine 12/28/22 12/23/23 Callum Field MD [address] [place] [address] [email or web address] PCP - General Family Medicine 12/24/23 documented as of this encounter Additional Source Comments The information contained in this document represents components of the legal health record. It is not the complete legal health record.[facility]
--- OUTSIDE RECORDS SUMMARY | 2025-03-03 10:10 | XMS_ITS | Encounter Summary ---
Author Organization [facility] Address [address] [place] [address] Phone Care Team Providers Care Assistant Front End Manager Name Role Phone Al Alcantara MD Primary Care Provider [phone] Al Alcantara MD Primary Care Provider [phone] Callum Field MD Primary Care Provider [phone] Callum Field MD Primary Care Provider [phone] Callum Field MD Primary Care Provider [phone] Encounter Details Date Type Department Care Team (Late st Contact Info) Description 03/05/2018 Procedure Pass [facility] Endoscopy Admitting Dept Virtual Department [address] [place], [place] [phone] Social History Tobacco Use Types Packs/Day Years [...] documented as of this encounter Care Teams Assistant Front End Manager Relationship Specialty Start Date End Date Al Alcantara MD [address] [place] [address] [email or web address] PCP - General 02/04/17 06/09/19 Al Alcantara MD [address] [place] [address] [email or web address] PCP - General Family Medicine 06/10/19 09/28/19 Callum Field MD [address] [place] [address] PCP - General Family Medicine 09/29/19 12/27/22 Callum Field MD [address] [place] [address] [email or web address] PCP - General Family Medicine 12/28/22 12/23/23 Callum Field MD [address] [place] [address] [email or web address] PCP - General Family Medicine 12/24/23 documented as of this encounter Additional Source Comments The information contained in this document represents components of the legal health record. It is not the complete legal health record.[facility]
--- OUTSIDE RECORDS SUMMARY | 2025-03-03 10:10 | XMS_ITS | Encounter Summary ---
Author Organization [facility] Address [address] [place] [address] Phone Care Team Providers Care Qual Research Manager Name Role Phone Al Alcantara MD Primary Care Provider Al Alcantara MD Primary Care Provider Callum Field MD Primary Care Provider [phone] Callum Field MD Primary Care Provider [phone] Callum Field MD Primary Care Provider [phone] Encounter Details Date Type Department Care Team (Late st Contact Info) Description 03/09/2017 Transcribe Orders [facility] Phleb Main [address] [place], [place] [phone] Vinay Serrano MD [address] [place], [place] [phone] Drug therapy (Primary Dx) Social History Tobacco [...] EST) WBC 5.93 3.40 - 11.20 K/uL [facility] RBC 3.86 3.80 - 4.80 M/uL [facility] HGB 11.7(L) 12.0 - 15.0 g/dL [facility] HCT 34.8(L) 36.0 - 46.0 % [facility] PLT 238 130 - 400 K/uL [facility] MCV 90.2 79.0 - 98.0 fL [facility] MCH 30.3 27.0 - 34.8 pg [facility] MCHC 33.6 31.5 - 36.0 g/dL [facility] RDW 13.2 10.8 - 14.6 % [facility] MPV 10.2 9.4 - 12.4 fl [facility] NRBC 0.00 /100 WBCs [facility] ABSOLUTE NRBC 0.00 K/uL [facility] DIFF METHOD Auto [facility] NEUTS 54.0 45.30 - 77.70 % [facility] LYMPHS 30.5 12.30 - 39.70 % [facility] MONOS 8.6 4.10 - 12.80 % [facility] EOS 5.4 0 - 7.2 % [facility] BASOS 1.3 0 - 2.80 % [facility] Granulocytes, immature (%) 0.2 0.0 - 0.9 % [facility] ABSOLUTE NEUTS 3.20 1.40 - 7.70 K/uL [facility] ABSOLUTE LYMPHS 1.81 0.60 - 3.20 K/uL [facility] ABSOLUTE MONOS 0.51 0.11 - 0.59 K/uL [facility] ABSOLUTE EOS 0.32 0.01 - 0.50 K/uL [facility] ABSOLUTE BASOS 0.08 0.00 - 0.08 K/uL [facility] Granulocytes, immature 0.01 0.00 - 0.05 K/uL [facility] Blood 03/09/2017 10:1 6 AM EST 03/09/2017 10:18 AM EST Vinay Serrano MD LAB BLOOD BKR ORDERABLES Fi nal Result [facility] [address] [place] [address] documented in this encounter Visit Diagnoses Diagnosis Drug therapy- Primary Encounter for other specified aftercare documented in this encounter Additional Health Concerns Infection Onset Date Last Indicated Resolved Time CoV-Risk Comment:Neg covid 05/20/2022 05/21/2022 05/22/2022 6:[address] CoV-Risk 01/17/2024 01/17/2024 01/28/2024 1:22 AM EDT documented as of this encounter Care Teams Qual Research Manager Relationship Specialty Start Date End Date Al Alcantara MD [address] [place] [address] [email or web address] [email or web address] - General 02/04/17 06/09/19 Al Alcantara MD [address] [place] [address] [email or web address] PCP - General Family Medicine 06/10/19 09/28/19 Callum Field MD [address] [place] [address] [email or web address] PCP - General Family Medicine 09/29/19 12/27/22 Callum Field MD [address] [place] [address] [email or web address] PCP - General Family Medicine 12/28/22 12/23/23 Callum Field MD [address] [place] [address] [email or web address] PCP - General Family Medicine 12/24/23 documented as of this encounter Additional Source Comments The information contained in this document represents components of the legal health record. It is not the complete legal health record.[facility]
--- OUTSIDE RECORDS SUMMARY | 2025-03-03 10:10 | XMS_ITS | Encounter Summary ---
Author Organization [facility] Address [address] [place] [address] Phone Care Team Providers Care Instructor Decorating Name Role Phone Al Alcantara MD Primary Care Provider [phone] Al Alcantara MD Primary Care Provider [phone] Callum Field MD Primary Care Provider [phone] Callum Field MD Primary Care Provider [phone] Callum Field MD Primary Care Provider [phone] Encounter Details Date Type Department Care Team (Late st Contact Info) Description 01/08/2018 Transcribe Orders [facility] Phleb Main [address] [place], [place] [phone] Vinay Serrano MD [address] [place], [place] [phone] Social History Tobacco Use Types Packs/Day Years [...] documented as of this encounter Care Teams Instructor Decorating Relationship Specialty Start Date End Date Al Alcantara MD [address] [place] [address] [email or web address] PCP - General 02/04/17 06/09/19 Al Alcantara MD [address] [place] [address] [email or web address] PCP - General Family Medicine 06/10/19 09/28/19 Callum Field MD [address] [place] [phone] PCP - General Family Medicine 09/29/19 12/27/22 Callum Field MD [address] [place] [phone] PCP - General Family Medicine 12/28/22 12/23/23 Callum Field MD [address] [place] [phone] PCP - General Family Medicine 12/24/23 documented as of this encounter Additional Source Comments The information contained in this document represents components of the legal health record. It is not the complete legal health record.[facility]
--- OUTSIDE RECORDS SUMMARY | 2025-03-03 10:10 | XMS_ITS | Encounter Summary ---
Author Organization [facility] Address [address] [place] [address] Phone Care Team Providers Care Cloth Grader Name Role Phone Callum Field MD Primary Care Provider [phone] Callum Field MD Primary Care Provider [phone] Callum Field MD Primary Care Provider [phone] Encounter Details Date Type Department Care Team (Late st Contact Info) Description 01/19/2022 Procedure Pass [facility], Ct Scan - [facility] [address] [place], [place] [phone] Social History Tobacco Use Types Packs/Day Years [...] 12:59 PM EDT Christy Duron RN * [place] Suicide Severity Rating Scale (Screener/Recent Self-Report) Question [...] documented as of this encounter Care Teams Cloth Grader Relationship Specialty Start Date End Date Callum Field MD [email or web address] PCP - General Family Medicine 09/29/19 12/27/22 Callum Field MD [email or web address] PCP - General Family Medicine 12/28/22 12/23/23 Callum Field MD [address] [place] [address] [email or web address] PCP - General Family Medicine 12/24/23 documented as of this encounter Additional Source Comments The information contained in this document represents components of the legal health record. It is not the complete legal health record.[facility]
--- OUTSIDE RECORDS SUMMARY | 2025-03-03 10:10 | XMS_ITS | Encounter Summary ---
Author Organization [facility] Address [address] [place] [address] Phone Care Team Providers Care Vp Design Name Role Phone Al Alcantara MD Primary Care Provider [phone] Al Alcantara MD Primary Care Provider [phone] Callum Field MD Primary Care Provider [phone] Callum Field MD Primary Care Provider [phone] Callum Field MD Primary Care Provider [phone] Encounter Details Date Type Department Care Team (Latest Contact Info) Description 06/25/2017 Transcribe Orders [facility] Phleb Main [address] [place], [place] [phone] Vinay Serrano MD [address] [place], [place] [phone] Subchronic schizophrenia (Primary Dx) Social History Tobacco [...] PM EST Vinay Serrano MD LAB BLOOD BKR ORDERABLES Fi nal Result [facility] [address] [place] [address] documented in this encounter Visit Diagnoses Diagnosis Subchronic schizophrenia- Primary Unspecified schizophrenia, subchronic condition documented in this encounter Additional Health Concerns Infection Onset Date Last Indicated Resolved Time CoV-Risk Comment:Neg covid 05/20/2022 05/21/2022 05/22/2022 6:[address] CoV-Risk 01/17/2024 01/17/2024 01/28/2024 1:22 AM EDT documented as of this encounter Care Teams Vp Design Relationship Specialty Start Date End Date Al Alcantara MD [address] [place] [address] [email or web address] PCP - General 02/04/17 06/09/19 Al Alcantara MD [address] [place] [address] [email or web address] PCP - General Family Medicine 06/10/19 09/28/19 Callum Field MD [address] [place] [address] [email or web address] PCP - General Family Medicine 09/29/19 12/27/22 Callum Field MD [address] [place] [address] [email or web address] PCP - General Family Medicine 12/28/22 12/23/23 Callum Field MD [address] [place] [address] [email or web address] PCP - General Family Medicine 12/24/23 documented as of this encounter Additional Source Comments The information contained in this document represents components of the legal health record. It is not the complete legal health record.[facility]
--- OUTSIDE RECORDS SUMMARY | 2025-03-03 10:10 | XMS_ITS | Encounter Summary ---
Author Organization [facility] Address [address] [place] [address] Phone Care Team Providers Care Housekeeping Room Attendant Name Role Phone Callum Field MD Primary Care Provider [phone] Callum Field MD Primary Care Provider [phone] Callum Field MD Primary Care Provider [phone] Encounter Details Date Type Department Care Team (Late st Contact Info) Description 05/22/2022 Procedure Pass [facility], Ct Scan - [facility] [address] [place], [place] [phone] Social History Tobacco Use Types Packs/Day Years [...] documented as of this encounter Care Teams Housekeeping Room Attendant Relationship Specialty Start Date End Date Callum Field MD [email or web address] PCP - General Family Medicine 09/29/19 12/27/22 Callum Field MD [email or web address] PCP - General Family Medicine 12/28/22 12/23/23 Callum Field MD [address] [place] [address] [email or web address] PCP - General Family Medicine 12/24/23 documented as of this encounter Additional Source Comments The information contained in this document represents components of the legal health record. It is not the complete legal health record.[facility]
--- OUTSIDE RECORDS SUMMARY | 2025-03-03 10:10 | XMS_ITS | Encounter Summary ---
Author Organization [facility] Address [address] [place] [address] Phone Care Team Providers Care Ophthalmic Technician Name Role Phone Al Alcantara MD Primary Care Provider [phone] Al Alcantara MD Primary Care Provider Callum Field MD Primary Care Provider [phone] Callum Field MD Primary Care Provider [phone] Callum Field MD Primary Care Provider [phone] Encounter Details Date Type Department Care Team (Latest Contact Info) Description 05/01/2017 Transcribe Orders [facility] Phleb Main [address] [place], [place] [phone] Vinay Serrano MD [address] [place], [place] [phone] Subchronic schizophrenia (Primary Dx) Social History Tobacco [...] EST) WBC 6.68 3.40 - 11.20 K/uL [facility] RBC 3.53(L) 3.80 - 4.80 M/uL [facility] HGB 10.6(L) 12.0 - 15.0 g/dL [facility] HCT 33.0(L) 36.0 - 46.0 % [facility] PLT 351 130 - 400 K/uL [facility] MCV 93.5 79.0 - 98.0 fL [facility] MCH 30.0 27.0 - 34.8 pg [facility] MCHC 32.1 31.5 - 36.0 g/dL [facility] RDW 14.2 10.8 - 14.6 % [facility] MPV 10.0 9.4 - 12.4 fl [facility] NRBC 0.00 /100 WBCs [facility] ABSOLUTE NRBC 0.00 K/uL [facility] DIFF METHOD Auto [facility] NEUTS 64.6 45.30 - 77.70 % [facility] LYMPHS 20.7 12.30 - 39.70 % [facility] MONOS 9.1 4.10 - 12.80 % [facility] EOS 4.3 0 - 7.2 % [facility] BASOS 1.2 0 - 2.80 % [facility] Granulocytes, immature (%) 0.1 0.0 - 0.9 % [facility] ABSOLUTE NEUTS 4.31 1.40 - 7.70 K/uL [facility] ABSOLUTE LYMPHS 1.38 0.60 - 3.20 K/uL [facility] ABSOLUTE MONOS 0.61(H) 0.11 - 0.59 K/uL [facility] ABSOLUTE EOS 0.29 0.01 - 0.50 K/uL [facility] ABSOLUTE BASOS 0.08 0.00 - 0.08 K/uL [facility] Granulocytes, immature 0.01 0.00 - 0.05 K/uL [facility] Blood 05/01/2017 10:5 1 AM EST 05/01/2017 10:53 AM EST Vinay Serarno MD LAB BLOOD BKR ORDERABLES Fi nal Result [facility] [address] [place] [address] documented in this encounter Visit Diagnoses Diagnosis Subchronic schizophrenia- Primary Unspecified schizophrenia, subchronic condition documented in this encounter Additional Health Concerns Infection Onset Date Last Indicated Resolved Time CoV-Risk Comment:Neg covid 05/20/2022 05/21/2022 05/22/2022 6:[address] CoV-Risk 01/17/2024 01/17/2024 01/28/2024 1:22 AM EDT documented as of this encounter Care Teams Ophthalmic Technician Relationship Specialty Start Date End Date Al Alcantara MD [address] [place] [address] [email or web address] - General 02/04/17 06/09/19 Al Alcantara MD [address] [place] [address] [email or web address] - General Family Medicine 06/10/19 09/28/19 Callum Field MD [address] [place] [address] [email or web address] PCP - General Family Medicine 09/29/19 12/27/22 Callum Field MD [address] [place] [address] [email or web address] PCP - General Family Medicine 12/28/22 12/23/23 Callum Field MD [address] [place] [address] [email or web address] PCP - General Family Medicine 12/24/23 documented as of this encounter Additional Source Comments The information contained in this document represents components of the legal health record. It is not the complete legal health record.[facility]
[2025-03-17] VITALS (8 sets, daily range): BP systolic 142–166; BP diastolic 82–96; PULSE 83–86; RESP 16–18; TEMP 36.2–36.4; O2SAT 95–98
--- NOTE | 2025-03-17 06:59 | HO.ANESPROP2 ---
[facility] Active Problems Active Problems: All Active Problems Fracture of right inferior pubic ramus (Acute) Fracture of superior ramus of right pubis (Acute) Arachnoid cyst (Acute) Diverticulosis (Chronic) Schizophrenia (Acute) Past Medical History Medical History Diverticulosis Schizophrenia CKD (chronic kidney disease) Hyperlipidemia Type 2 diabetes mellitus Hypothyroidism HTN (hypertension) GERD (gastroesophageal reflux disease) Mood disorder Family History Family history of problems with anesthesia: No Surgical History History of Problems with Anesthesia: No Social History Social History Household Members: None Household Members Other:: Lives at [facility] Housing: Assisted Living Facility Do you presently have visiting nurse or other home services: Yes Alcohol intake: current Alcohol intake frequency: does not drink Patient Tobacco Use Status: Never used Tobacco Tobacco use type: Cigarette Cigarette Packs Per Day: 3 Cigarettes Per Day: 60.0 Years Smoked: 16 Second Hand Smoke Exposure: No Advance Directives: No Advance Directives Information Provided: Yes service: No Current occupational status: retired Sexual orientation: Straight/Heterosexual Meds Allergies Allergy/AdvReac Type Severity Reaction Status Date / Time trifluoperazine (From Allergy Unknown Verified 09/25/24 09:52 Stelazine) Home Medications ?Medication ?Instructions ?Recorded ?Confirmed ?Last Taken ?Type acetaminophen 325 mg tablet 650 mg PO Q6H PRN pain/fever 06/22/24 11/25/24 Unknown History hydroxyzine HCl 25 mg tablet 25 mg PO Q6H PRN Anxiety 06/22/24 11/25/24 Unknown History polyethylene glycol 3350 17 gram 17 g PO BEDTIME 06/22/24 11/25/24 06/21/24 20:00 History oral powder packet polyethylene glycol 3350 17 gram 17 g PO DAILY PRN Constipation 06/22/24 11/25/24 Unknown History oral powder packet sennosides 8.6 mg tablet (Senna 8.6 mg PO BEDTIME 06/22/24 11/25/24 06/21/24 20:00 History Lax) sennosides 8.6 mg tablet (senna) 8.6 mg PO DAILY PRN Constipation 06/22/24 11/25/24 Unknown History trazodone 50 mg tablet 50 mg PO BEDTIME 03/07/1411/25/24 06/21/24 20:00 History trazodone 50 mg tablet 50 mg PO BEDTIME PRN Insomnia 06/22/24 11/25/24 Unknown History bisacodyl 10 mg rectal suppository 10 mg WA DAILY PRN Constipation 07/03/24 11/25/24 Unknown History (Dulcolax (bisacodyl)) magnesium hydroxide 400 mg/5 mL 5 ml PO DAILY PRN Constipation 07/03/24 11/25/24 Unknown History oral suspension (Milk of Magnesia) sennosides 8.6 mg tablet (Senna 8.6 mg PO BEDTIME 07/03/24 11/25/24 Unknown History Lax) sodium phosphates 19 gram-7 118 ml WA DAILY PRN Dehydration 07/03/24 11/25/24 Unknown History gram/118 mL enema (Fleet Enema) cephalexin 500 mg capsule 500 mg PO QID 08/13/24 11/25/24 Unknown History Exam Height,Weight and Vital Signs: Height 5 ft 6 in Weight 84.368 kg Last Vital Signs Temp 97.5 F 03/17/25 06:25 Pulse 84 03/17/25 06:25 Resp 16 03/17/25 06:25 Pulse Ox 95 03/17/25 06:25 O2 Del Method Room Air 03/17/25 06:25 Airway Mallampati Class: II TM Dist: >3cm Neck ROM: Full Loose/Missing/Broken Teeth: Yes, Upper and Lower Heart: RRR Lungs: CTA Assessment and Plan Assessment Anesthesia Assessment: Anesthesia Plan Discussed and Chart Reviewed Final Anesthetic Review Family History of Problems with Anesthesia: No History of Problems with Anesthesia: No NPO: Yes ASA Class: III Final Preanesthetic Review: Meds/Allgs Chart Reviewed, Consent Obtained/Reviewed and Anes Risks/Benef Reviewed Patient Risk: Intermediate Procedure Risk: Intermediate Anesthetic Plan Anesthetic Plan: GA Disposition: Standard PACU
--- NOTE | 2025-03-17 07:05 | MHC.SHP ---
Pre-Procedural Eval Section A - 24 Hr Update-Section A only Date of Service: 03/17/25 Section B - Complete if H&P > 30 days Chief Complaint: depression Details of Present Illness: recurrent guilty delusional dep sx intrusive guilt helped by ect 2 x wk Medical History: No relevant PMH Allergies: Allergies Allergy/AdvReac Type Severity Reaction Status Date / Time trifluoperazine (From Allergy Unknown Verified 09/25/24 09:52 Stelazine) Review of Systems Sugical H&P ROS: Negative: Cardiovascular, Respiratory and Neurological and Yes, Specify: Psychiatric (some intrusive thoughts) and Musculoskeletal (gait ) Exam Surgical H&P Exam: Normal: Heart (RRR; no murmurs), Normal: Lungs (CTA b/l throughout) and Normal: Neurological (alert o x3 clear) Plan Diagnosis/Plan: Unchanged I have reviewed the history and physical and performed a pertinent physical examination on my patient. No changes have occurred unless specified. Time Spent With Patient Time: Total time managing care of this patient today ____ minutes.
--- NOTE | 2025-03-17 08:15 | HO.ECTPROC ---
ECT Procedure Note Diagnosis/Treatment Date of Service: 03/17/25 Diagnosis: Schizoaffective Disorder Treatment: Maintenance Interval Clinical Notes: Patient continues to feel that to time month ECTs most effective. Has some occasional breakthrough hinduism persecutory thoughts. No significant side effects noted. No change in medical condition Time: Total time managing care of this patient today ____ minutes. ECT Settings Device: THYMATRON DGx Electrode Placement: Bifrontal Program/Pulse Width: 0.50 Energy Percent: 100 Seizure Duration By EEG (in seconds): 37 Medications Administration General Anesthetic: Etomidate (12) Muscle Relaxant: Succinylcholine (80) Ancillary Medications Anti-emetics: Zofran - Pre ECT Airway Management Airway Management: Bag Mask Ventilation Treatment Recommendations Pt Tolerated Procedure w/o Issue: Yes
== END 2025-03-17 08:41 | disposition home or self-care (01) ==
PROVIDERS: PCP Internal Medicine; Visit Provider Psychiatry & Neurology Psychiatry
PROC: (CPT 90870; principal; 2025-03-17 07:30)
DX: F25.8 Other schizoaffective disorders (principal); F06.0 Psychotic disorder with hallucinations due to known physiological condition; I12.9 Hypertensive chronic kidney disease with stage 1 through stage 4 chronic kidney disease, or unspecified chronic kidney disease; N18.30 Chronic kidney disease, stage 3 unspecified; E11.22 Type 2 diabetes mellitus with diabetic chronic kidney disease; E78.2 Mixed hyperlipidemia; K21.9 Gastro-esophageal reflux disease without esophagitis; E03.9 Hypothyroidism, unspecified; M54.50 Low back pain, unspecified; Z79.899 Other long term (current) drug therapy; Z88.8 Allergy status to other drugs, medicaments and biological substances
CPT/HCPCS: 90870; J0330; J2405; J2704

== ENCOUNTER → 2025-03-17 05:53 | Outpatient (BNV) | payer MEDICARE, MEDICAID, SELFPAY | PROVIDERS: PCP Internal Medicine; Visit Provider Psychiatry & Neurology Psychiatry | DX: F33.2 Major depressive disorder, recurrent severe without psychotic features (principal) | CPT/HCPCS: 90870 ==

== ENCOUNTER 2025-03-31 06:25 | Day surgery (SDC) | payer MEDICARE, MEDICAID, SELFPAY ==
--- OUTSIDE RECORDS SUMMARY | 2025-03-10 04:56 | XMS_ITS | Encounter Summary ---
Author Organization [facility] Address [address] [place] [address] Phone Care Team Providers Care Blanket Winder Operator Name Role Phone Al Alcantara MD Primary Care Provider Al Alcantara MD Primary Care Provider Callum Field MD Primary Care Provider [phone] Callum Field MD Primary Care Provider [phone] Callum Field MD Primary Care Provider [phone] Encounter Details Date Type Department Care Team (Latest Contact Info) Description 02/20/2017 Transcribe Orders [facility] Phlebotomy [address] [place] [address] Vinay Serrano MD [address] [place], [place] [phone] Subchronic schizophrenia (Primary Dx) Social History Tobacco [...] EDT) WBC 5.82 3.40 - 11.20 K/uL [facility] RBC 4.00 3.80 - 4.80 M/uL [facility] HGB 12.0 12.0 - 15.0 g/dL [facility] HCT 36.0 36.0 - 46.0 % [facility] PLT 218 130 - 400 K/uL [facility] MCV 90.0 79.0 - 98.0 fL [facility] MCH 30.0 27.0 - 34.8 pg [facility] MCHC 33.3 31.5 - 36.0 g/dL [facility] RDW 13.2 10.8 - 14.6 % [facility] MPV 10.7 9.4 - 12.4 fl [facility] NRBC 0.00 /100 WBCs [facility] ABSOLUTE NRBC 0.00 K/uL [facility] DIFF METHOD Auto [facility] NEUTS 52.6 45.30 - 77.70 % [facility] LYMPHS 29.9 12.30 - 39.70 % [facility] MONOS 8.1 4.10 - 12.80 % [facility] EOS 8.4(H) 0 - 7.2 % [facility] BASOS 0.7 0 - 2.80 % [facility] Granulocytes, immature (%) 0.3 0.0 - 0.9 % [facility] ABSOLUTE NEUTS 3.06 1.40 - 7.70 K/uL [facility] ABSOLUTE LYMPHS 1.74 0.60 - 3.20 K/uL [facility] ABSOLUTE MONOS 0.47 0.11 - 0.59 K/uL [facility] ABSOLUTE EOS 0.49 0.01 - 0.50 K/uL [facility] ABSOLUTE BASOS 0.04 0.00 - 0.08 K/uL [facility] Granulocytes, immature 0.02 0.00 - 0.05 K/uL [facility] Blood 02/20/2017 11:3 1 AM EDT 02/20/2017 11:34 AM EDT us Vinay Serrano MD LAB BLOOD BKR ORDERABLES Fi nal Result [facility] [address] [place] [address] documented in this encounter Visit Diagnoses Diagnosis Subchronic schizophrenia- Primary Unspecified schizophrenia, subchronic condition documented in this encounter Additional Health Concerns Infection Onset Date Last Indicated Resolved Time CoV-Risk Comment:Neg covid 05/20/2022 05/21/2022 05/22/2022 6:[address] CoV-Risk 01/17/2024 01/17/2024 01/28/2024 1:22 AM EDT documented as of this encounter Care Teams Blanket Winder Operator Relationship Specialty Start Date End Date Al Alcantara MD [address] [place] [address] [email or web address] PCP - General 02/04/17 06/09/19 Al Alcantara MD [address] [place] [address] [email or web address] PCP - General Family Medicine 06/10/19 09/28/19 Callum Field MD [address] [place] [phone] PCP - General Family Medicine 09/29/19 12/27/22 Callum Field MD [address] [place] [address] [email or web address] PCP - General Family Medicine 12/28/22 12/23/23 Callum Field MD [address] [place] [phone] [email or web address] PCP - General Family Medicine 12/24/23 documented as of this encounter Additional Source Comments The information contained in this document represents components of the legal health record. It is not the complete legal health record.[facility]
--- OUTSIDE RECORDS SUMMARY | 2025-03-10 04:57 | XMS_ITS | Encounter Summary ---
Author Organization [facility] Address [address] [place] [address] Phone Care Team Providers Care Operations Trainer Name Role Phone Callum Field MD Primary Care Provider [phone] Callum Field MD Primary Care Provider Callum Field MD Primary Care Provider [phone] Encounter Details Date Type Department Care Team (Late st Contact Info) Description 05/20/2022 Procedure Pass [facility], Ct Scan - [facility] [address] [place], [place] [phone] Social History Tobacco Use Types Packs/Day Years [...] 05/21/2022 5:07 PM Rena Rodriguez RN * [place] Suicide Severity Rating Scale (Screener/Recent Self-Report) Question [...] documented as of this encounter Care Teams Operations Trainer Relationship Specialty Start Date End Date Callum Field MD [email or web address] PCP - General Family Medicine 09/29/19 12/27/22 Callum Field MD [email or web address] PCP - General Family Medicine 12/28/22 12/23/23 Callum Field MD [address] [place] [address] [email or web address] PCP - General Family Medicine 12/24/23 documented as of this encounter Additional Source Comments The information contained in this document represents components of the legal health record. It is not the complete legal health record.[facility]
--- OUTSIDE RECORDS SUMMARY | 2025-03-10 04:57 | XMS_ITS | Encounter Summary ---
Author Organization [facility] Address [address] [place] [address] Phone Care Team Providers Care Parts Designer Name Role Phone Al Alcantara MD Primary Care Provider [phone] Al Alcantara MD Primary Care Provider [phone] Callum Field MD Primary Care Provider [phone] Callum Field MD Primary Care Provider [phone] Callum Field MD Primary Care Provider [phone] Encounter Details Date Type Department Care Team (Latest Contact Info) Description 08/21/2017 Transcribe Orders [facility] Phleb Main [address] [place], [place] [phone] Vinay Serrano MD [address] [place], [place] [phone] Subchronic schizophrenia (Primary Dx) Social History Tobacco [...] documented as of this encounter Care Teams Parts Designer Relationship Specialty Start Date End Date Al Alcantara MD [address] [place] [address] [email or web address] PCP - General 02/04/17 06/09/19 Al Alcantara MD [address] [place] [address] [email or web address] PCP - General Family Medicine 06/10/19 09/28/19 Callum Field MD [address] [place] [address] [email or web address] PCP - General Family Medicine 09/29/19 12/27/22 Callum Field MD [address] [place] [phone] PCP - General Family Medicine 12/28/22 12/23/23 Callum Field MD [address] [place] [phone] PCP - General Family Medicine 12/24/23 documented as of this encounter Additional Source Comments The information contained in this document represents components of the legal health record. It is not the complete legal health record.[facility]
--- OUTSIDE RECORDS SUMMARY | 2025-03-10 04:58 | XMS_ITS | Clinical Summary ---
Author Organization [facility] Address [address] [place] [address] Phone Care Team Providers Care Site Acquisition Manager Name Role Phone Callum Field MD Primary Care Provider [phone] Allergies Active Allergy Reactions Criticality Noted Date [...] daily as needed (Anxiety). Last filled at [facility], [place] 01/06/24 01/06/2024 Active cloZAPine (CLOZARIL) 50 MG [...] EDT Hospital Encounter [facility] [address] [place] [address] Sage Younger, CARI Discharge Disposition: Home or Self Care 02/12/2025 Transcribe Orders [facility] Specimen Processing [address] [place] [address] Sage Younger NP Polypharmacy (Primary Dx); Subchronic schizophrenia 02/09/2025 2:55 PM EDT - 02/09/2025 11:59 PM EDT Hospital Encounter [facility], Bone Density - [facility] [address] [place] [address] Serafin Suarez DO Discharge Disposition: Home or [...] on patient's age to complete this topic IPV VACCINES Aged Out No longer eligi ble [...] 02/09/2025 3:37 PM EDT Asymptomatic menopausal state THYROID STIMULATING HORMONE (TSH) Routine 07/01/2024 5:45 AM EDT Other specified diabetes mellitus with other specified complication, unspecified whether mcfp insulin use Hypothyroidism, unspecified type Schizophrenia, unspecified type COMPREHENSIVE METABOLIC PANEL (CMP) Routine 06/25/2024 5:10 AM EST Diverticulitis Other specified diabetes mellitus with other specified complication, unspecified whether termite control representative insulin use ENDOSCOPY, COLON 03/05/2018 9:09 AM EST from Last 3 Months or Most Recently Relevant to Health Maintenance Results * (ABNORMAL) CBC and differential (02/12/2025 7:34 AM EDT) WBC 5.07 4.00 - 11.00 K/uL [facility] RBC 3.72(L) 4.00 - 5.20 M/uL [facility] HGB 11.3(L) 12.0 - 16.0 g/dL [facility] HCT 34.5(L) 36.0 - 46.0 % [facility] PLT 223 150 - 450 K/uL [facility] MCV 92.7 80.0 - 100.0 fL [facility] MCH 30.4 27.0 - 31.0 pg [facility] MCHC 32.8 32.0 - 36.0 g/dL [facility] RDW 13.8 11.5 - 14.5 % [facility] MPV 10.2 8.4 - 12.0 fL [facility] NRBC 0.00 0.00 /100 WBCs [facility] ABSOLUTE NRBC 0.00 0.00 K/uL [facility] DIFF METHOD Auto [facility] NEUTS 53.8 48.0 - 76.0 % [facility] LYMPHS 31.8 18.0 - 41.0 % [facility] MONOS 9.5 4.0 - 11.0 % [facility] EOS 3.7 0.0 - 5.0 % [facility] BASOS 1.0 0.0 - 1.5 % [facility] Granulocytes, immature (%) 0.2 0.0 - 0.9 % [facility] ABSOLUTE NEUTS 2.73 1.92 - 7.60 K/uL [facility] ABSOLUTE LYMPHS 1.61 0.72 - 4.10 K/uL [facility] ABSOLUTE MONOS 0.48 0.16 - 1.10 K/uL [facility] ABSOLUTE EOS 0.19 0.00 - 0.50 K/uL [facility] ABSOLUTE BASOS 0.05 0.00 - 0.15 K/uL [facility] Granulocytes, immature 0.01 0.00 - 0.09 K/uL [facility] Blood 02/12/2025 7:34 AM EDT 02/12/2025 8:42 AM EDT us Sage Younger PER DIEM REGISTERED NURSE LAB BLOOD BKR ORDERA BLES Final Result [facility] [address] [place], [place] [id number] * BD DXA AXIAL (SPINE) WITH HIP (02/09/2025 3:37 PM EDT) Anatomical Region Laterality Modality Bone Density Bone Density 02/09/2025 3:27 PM EDT Impressions 02/11/2025 9:30 AM EDT Interpretation: Osteopenia. Narrative 02/11/2025 9:30 AM EDT Referred By: SERAFIN SUAREZ Indications: Postmenopausal Scanner: [employer] A with serial# of [id number] located at [facility] Bone Density Scan (DXA) 02/09/25 Details of [...] -2.5), or Osteoporosis (T-score <= -2.5). At [facility], T-scores are compared to peak bone density [...] Referred By: SERAFIN SUAREZ Indications: Postmenopausal Scanner: [employer] A with serial# of [id number] located at [facility] Bone Density Scan (DXA) 02/09/25 Details of [...] -2.5), or Osteoporosis (T-score <= -2.5). At [facility], T-scores are compared to peak bone density [...] EDT) TSH 10.70(H) 0.27 - 4.20 uIU/mL [facility] Blood 07/01/2024 5:45 AM EDT 07/01/2024 8:10 AM EDT Katelynn Marsh PER DIEM REGISTERED NURSE LAB BLOOD BKR ORDERABLES Final R esult [address] [id number] * (ABNORMAL) Comprehensive metabolic panel (06/25/2024 5:10 AM EST) Pathologist [facility] SODIUM 144 133 - 146 mmol/L [facility] POTASSIUM 4.8 3.3 - 5.1 mmol/L [facility] CHLORIDE 108 96 - 108 mmol/L [facility] CO2 25 21 - 35 mmol/L [facility] BUN 25(H) 6 - 19 mg/dL [facility] CREATININE 1.20 0.5 - 1.5 mg/dL [facility] GLUCOSE 100(H) 70 - 99 mg/dL [facility] ALBUMIN 3.5(L) 3.9 - 4.8 g/dL [facility] TOTAL PROTEIN 5.3(L) 6.5 - 8.0 g/dL [facility] CALCIUM 8.8 8.4 - 10.3 mg/dL [facility] ALKALINE PHOSPHATASE 143(H) 39 - 117 U/L [facility] TOTAL BILIRUBIN 0.3 0.0 - 1.2 mg/dL [facility] AST 21 0 - 37 U/L [facility] ALT 23 0 - 40 U/L [facility] GLOBULIN 1.8 1 - 4.8 g/dL [facility] EGFR 48(L) >59 mL/min/1.7 3m2 [facility] Comment:Estimated glomerular filtration rate calculated using the CKD-EPI refit equation. ANION GAP 16 10 - 20 mmol/L [facility] Blood 06/25/2024 5:10 AM EST 06/25/2024 8:41 AM EST us Katelynn Marsh PER DIEM REGISTERED NURSE LAB BLOOD BKR ORDERABLES Final R esult [address] [address] * ENDOSCOPY, COLON (03/05/2018 9:09 AM EST) Narrative Transcriptions Shan Cote MD - 03/05/2018 9:09 AM EST Patient Name: Deedee Holbrook Attending MD:: SHAN COTE MD Procedure Date: 03/05/2018 9:09 AM Date of : 1950 Age: 67 Admit Type: Outpatient Gender: Female Room: [place] [address] Referring MD: SUZY LUNDY MD Exam Type: [...] 9:09 AM Procedure Code(s): --- Professional --- 58388, Colonoscopy, flexible; with biopsy, single or multiple --- Technical --- 93580, Colonoscopy, flexible; with biopsy, single or multiple [...] perforation orabscess without bleeding CPT copyright 2016 [employer]. All rights reserved. The codes documented in this report are preliminary and upon clearance representative reviewmay be revised to meet current compliance requirements. [address] [place], [place] [id number] Suzy Lundy MD GI PROCEDURE ORDERABLES Final [...] Advance Directives For more information, please contact: [phone] (9AM - 5PM [facility], Saturday-Saturday) Documents on File Type Date Recorded Patient Trial Paralegal Expl anation Healthcare Proxy 05/25/2022 2:05 PM * Full Code (Latest Code Status on File) Date Activated Date Inactivated Comments 05/22/2022 12:26 AM Question Answer Comments Code Status Confirmed With: Patient * Full Code (Confirmed) Date Activated Date Inactivated Comments 04/14/2017 4:14 AM 04/19/2017 3:46 PM Question Answer Comments Code Discussion Comments: Patient Care Teams Site Acquisition Manager Relationship Specialty Start Date End Date Callum Field MD [address] [place] [address] [email or web address] PCP - General Family Medicine 12/24/23 Additional Source Comments The information contained in this document represents components of the legal health record. It is not the complete legal health record.[facility]
--- OUTSIDE RECORDS SUMMARY | 2025-03-10 04:58 | XMS_ITS | Encounter Summary ---
Author Organization [facility] Address [address] [place] [address] Phone Care Team Providers Care Billiard Parlor Manager Name Role Phone Al Alcantara MD Primary Care Provider lA Alcantara MD Primary Care Provider [phone] Callum Field MD Primary Care Provider [phone] Callum Field MD Primary Care Provider [phone] Callum Field MD Primary Care Provider [phone] Encounter Details Date Type Department Care Team (Latest Contact Info) Description 11/12/2017 Transcribe Orders [facility] Phleb Main [address] [place], [place] [phone] Vinay Serrano MD [address] [place], [place] [phone] Subchronic schizophrenia (Primary Dx) Social History Tobacco [...] documented as of this encounter Care Teams Billiard Parlor Manager Relationship Specialty Start Date End Date Al Alcantara MD [address] [place] [address] [email or web address] PCP - General 02/04/17 06/09/19 Al Alcantara MD [address] [place] [address] [email or web address] PCP - General Family Medicine 06/10/19 09/28/19 Callum Field MD [address] [place] [address] [email or web address] PCP - General Family Medicine 09/29/19 12/27/22 Callum Field MD [address] [place] [address] [email or web address] PCP - General Family Medicine 12/28/22 12/23/23 Callum Field MD [address] [place] [phone] [email or web address] PCP - General Family Medicine 12/24/23 documented as of this encounter Additional Source Comments The information contained in this document represents components of the legal health record. It is not the complete legal health record.[facility]
--- OUTSIDE RECORDS SUMMARY | 2025-03-10 04:58 | XMS_ITS | Encounter Summary ---
Author Organization [facility] Address [address] [place] [address] Phone Care Team Providers Care Lubricating Specialist Name Role Phone Al Alcantara MD Primary Care Provider [phone] Al Alcantara MD Primary Care Provider [phone] Callum Field MD Primary Care Provider [phone] Callum Field MD Primary Care Provider [phone] Callum Field MD Primary Care Provider [phone] Encounter Details Date Type Department Care Team (Latest Contact Info) Description 05/28/2017 Transcribe Orders [facility] Phleb Main [address] [place], [place] [phone] Vinay Serrano MD [address] [place], [place] [phone] Chronic schizophrenia (Primary Dx) Social History Tobacco [...] EST) WBC 7.56 3.40 - 11.20 K/uL [facility] RBC 3.57(L) 3.80 - 4.80 M/uL [facility] HGB 10.8(L) 12.0 - 15.0 g/dL [facility] HCT 33.1(L) 36.0 - 46.0 % [facility] PLT 258 130 - 400 K/uL [facility] MCV 92.7 79.0 - 98.0 fL [facility] MCH 30.3 27.0 - 34.8 pg [facility] MCHC 32.6 31.5 - 36.0 g/dL [facility] RDW 13.9 10.8 - 14.6 % [facility] MPV 10.2 9.4 - 12.4 fl [facility] NRBC 0.00 /100 WBCs [facility] ABSOLUTE NRBC 0.00 K/uL [facility] DIFF METHOD Auto [facility] NEUTS 71.5 45.30 - 77.70 % [facility] LYMPHS 19.8 12.30 - 39.70 % [facility] MONOS 6.5 4.10 - 12.80 % [facility] EOS 1.5 0 - 7.2 % [facility] BASOS 0.4 0 - 2.80 % [facility] Granulocytes, immature (%) 0.3 0.0 - 0.9 % [facility] ABSOLUTE NEUTS 5.41 1.40 - 7.70 K/uL [facility] ABSOLUTE LYMPHS 1.50 0.60 - 3.20 K/uL [facility] ABSOLUTE MONOS 0.49 0.11 - 0.59 K/uL [facility] ABSOLUTE EOS 0.11 0.01 - 0.50 K/uL [facility] ABSOLUTE BASOS 0.03 0.00 - 0.08 K/uL [facility] Granulocytes, immature 0.02 0.00 - 0.05 K/uL [facility] Blood 05/28/2017 3:23 PM EST 05/28/2017 3:25 PM EST us Vinay Serrano MD LAB BLOOD BKR ORDERABLES Fi nal Result [facility] [address] [facility] [place] [address] documented in this encounter Visit Diagnoses Diagnosis Chronic schizophrenia- Primary Unspecified schizophrenia, chronic condition documented in this encounter Additional Health Concerns Infection Onset Date Last Indicated Resolved Time CoV-Risk Comment:Neg covid 05/20/2022 05/21/2022 05/22/2022 6:[address] CoV-Risk 01/17/2024 01/17/2024 01/28/2024 1:22 AM EDT documented as of this encounter Care Teams Lubricating Specialist Relationship Specialty Start Date End Date Al Alcantara MD [address] [place] [address] [email or web address] PCP - General 02/04/17 06/09/19 Al Alcantara MD [address] [place] [address] [email or web address] PCP - General Family Medicine 06/10/19 09/28/19 Callum Field MD [address] [place] [address] PCP - General Family Medicine 09/29/19 12/27/22 Callum Field MD [address] [place] [address] PCP - General Family Medicine 12/28/22 12/23/23 Callum Field MD [address] [place] [address] [email or web address] PCP - General Family Medicine 12/24/23 documented as of this encounter Additional Source Comments The information contained in this document represents components of the legal health record. It is not the complete legal health record.[facility]
--- OUTSIDE RECORDS SUMMARY | 2025-03-10 04:58 | XMS_ITS | Encounter Summary ---
Author Organization [facility] Address [address] [address] [place] [address] Phone Care Team Providers Care Hvac Controls Technician Name Role Phone Callum Field MD Primary Care Provider Encounter Details Date Type Department Care Team (Latest Contact Info) Description 09/07/2024 Transcribe Orders Virtual Department [address] [place] [address] Serafin Suarez DO [address] [place] [address] Asymptomatic menopausal state (Primary Dx) Social History [...] Referred By: SERAFIN SUAREZ Indications: Postmenopausal Scanner: [employer] A with serial# of [id number] located at [facility] Bone Density Scan (DXA) 02/09/25 Details [...] -2.5), or Osteoporosis (T-score <= -2.5). At [facility], T-scores are compared to peak bone [...] Referred By: SERAFIN SUAREZ Indications: Postmenopausal Scanner: Tern A with serial# of [id number] located at [facility] Bone Density Scan (DXA) 02/09/25 Details [...] -2.5), or Osteoporosis (T-score <= -2.5). At [facility], T-scores are compared to peak bone [...] state documented in this encounter Care Teams Hvac Controls Technician Relationship Specialty Start Date End Date Callum Field MD [address] [place] [address] [email or web address] PCP - General Family Medicine 12/24/23 documented as of this encounter Additional Source Comments The information contained in this document represents components of the legal health record. It is not the complete legal health record.[facility]
--- OUTSIDE RECORDS SUMMARY | 2025-03-10 04:58 | XMS_ITS | Encounter Summary ---
Author Organization [facility] Address [address] [place] [address] Phone Care Team Providers Care Climate Change Risk Assessor Name Role Phone Al Alcantara MD Primary Care Provider Al Alcantara MD Primary Care Provider Callum Field MD Primary Care Provider [phone] Callum Field MD Primary Care Provider [phone] Callum Field MD Primary Care Provider [phone] Encounter Details Date Type Department Care Team (Latest Contact Info) Description 04/02/2017 Transcribe Orders [facility] Phleb Main [address] [place], [place] [phone] Vinay Serrano MD [address] [place], [place] [phone] Subchronic schizophrenia (Primary Dx) Social History Tobacco [...] LAB BLOOD BKR ORDERABLES Fi nal Result [facility] [address] [place] [address] documented in this encounter Visit Diagnoses Diagnosis Subchronic schizophrenia- Primary Unspecified schizophrenia, subchronic condition documented in this encounter Additional Health Concerns Infection Onset Date Last Indicated Resolved Time CoV-Risk Comment:Neg covid 05/20/2022 05/21/2022 05/22/2022 6:[address] CoV-Risk 01/17/2024 01/17/2024 01/28/2024 1:22 AM EDT documented as of this encounter Care Teams Climate Change Risk Assessor Relationship Specialty Start Date End Date Al Alcantara MD [address] [place] [address] [email or web address] PCP - General 02/04/17 06/09/19 Al Alcantara MD [address] [place] [address] [email or web address] PCP - General Family Medicine 06/10/19 09/28/19 Callum Field MD [address] [place] [address] [email or web address] PCP - General Family Medicine 09/29/19 12/27/22 Callum Field MD [address] [place] [phone] PCP - General Family Medicine 12/28/22 12/23/23 Callum Field MD [address] [place] [address] [email or web address] PCP - General Family Medicine 12/24/23 documented as of this encounter Additional Source Comments The information contained in this document represents components of the legal health record. It is not the complete legal health record.[facility]
--- OUTSIDE RECORDS SUMMARY | 2025-03-10 04:58 | XMS_ITS | Encounter Summary ---
Author Organization [facility] Address [address] [place] [address] Phone Care Team Providers Care Veterans Rehabilitation Counselor Name Role Phone Al Alcantara MD Primary Care Provider [phone] Al Alcantara MD Primary Care Provider [phone] Callum Field MD Primary Care Provider [phone] Callum Field MD Primary Care Provider [phone] Callum Field MD Primary Care Provider [phone] Encounter Details Date Type Department Care Team (Latest Contact Info) Description 07/23/2017 Transcribe Orders [facility] Phleb Main [address] [place], [place] [phone] Vinay Serrano MD [address] [place], [place] [phone] Subchronic schizophrenia (Primary Dx) Social History Tobacco [...] EDT) WBC 7.36 3.40 - 11.20 K/uL [facility] RBC 3.69(L) 3.80 - 4.80 M/uL [facility] HGB 11.3(L) 12.0 - 15.0 g/dL [facility] HCT 33.3(L) 36.0 - 46.0 % [facility] PLT 261 130 - 400 K/uL [facility] MCV 90.2 79.0 - 98.0 fL [facility] MCH 30.6 27.0 - 34.8 pg [facility] MCHC 33.9 31.5 - 36.0 g/dL [facility] RDW 13.4 10.8 - 14.6 % [facility] MPV 10.6 9.4 - 12.4 fl [facility] NRBC 0.00 /100 WBCs [facility] ABSOLUTE NRBC 0.00 K/uL [facility] DIFF METHOD Auto [facility] NEUTS 71.9 45.30 - 77.70 % [facility] LYMPHS 18.2 12.30 - 39.70 % [facility] MONOS 7.1 4.10 - 12.80 % [facility] EOS 1.8 0 - 7.2 % [facility] BASOS 0.7 0 - 2.80 % [facility] Granulocytes, immature (%) 0.3 0.0 - 0.9 % [facility] ABSOLUTE NEUTS 5.30 1.40 - 7.70 K/uL [facility] ABSOLUTE LYMPHS 1.34 0.60 - 3.20 K/uL [facility] ABSOLUTE MONOS 0.52 0.11 - 0.59 K/uL [facility] ABSOLUTE EOS 0.13 0.01 - 0.50 K/uL [facility] ABSOLUTE BASOS 0.05 0.00 - 0.08 K/uL [facility] Granulocytes, immature 0.02 0.00 - 0.05 K/uL [facility] Blood 07/23/2017 1:16 PM EDT 07/23/2017 1:18 PM EDT Vinay Serrano MD LAB BLOOD BKR ORDERABLES Fi nal Result [facility] [address] [facility] [place] [address] documented in this encounter Visit Diagnoses Diagnosis Subchronic schizophrenia- Primary Unspecified schizophrenia, subchronic condition documented in this encounter Additional Health Concerns Infection Onset Date Last Indicated Resolved Time CoV-Risk Comment:Neg covid 05/20/2022 05/21/2022 05/22/2022 6:[address] CoV-Risk 01/17/2024 01/17/2024 01/28/2024 1:22 AM EDT documented as of this encounter Care Teams Veterans Rehabilitation Counselor Relationship Specialty Start Date End Date Al Alcantara MD [address] [place] [address] [email or web address] [email or web address] - General 02/04/17 06/09/19 Al Alcantara MD [address] [place] [address] [email or web address] PCP - General Family Medicine 06/10/19 09/28/19 Callum Field MD [address] [place] [address] [email or web address] PCP - General Family Medicine 09/29/19 12/27/22 Callum Field MD [address] [place] [address] [email or web address] PCP - General Family Medicine 12/28/22 12/23/23 Callum Field MD [address] [place] [address] [email or web address] PCP - General Family Medicine 12/24/23 documented as of this encounter Additional Source Comments The information contained in this document represents components of the legal health record. It is not the complete legal health record.[facility]
--- OUTSIDE RECORDS SUMMARY | 2025-03-10 04:59 | XMS_ITS | Encounter Summary ---
Author Organization [facility] Address [address] [address] [place] [address] Phone Care Team Providers Care Assistant Cross Country Coach Name Role Phone Callum Field MD Primary Care Provider [phone] Callum Field MD Primary Care Provider Callum Field MD Primary Care Provider Encounter Details Date Type Department Care Team (Late st Contact Info) Description 09/25/2022 Transcribe Orders Virtual Department [address] [place] [address] Mei Rodriguez MD [address] [place] [address] [email or web address] Osteopenia, unspecified location Social History [...] as of this encounter Care Teams Assistant Cross Country Coach Relationship Specialty Start Date End Date Callum Field MD [email or web address] PCP - General Family Medicine 09/29/19 12/27/22 Callum Field MD PCP - General Family Medicine 12/28/22 12/23/23 Callum Field MD [address] [place] [address] [email or web address] PCP - General Family Medicine 12/24/23 documented as of this encounter Additional Source Comments The information contained in this document represents components of the legal health record. It is not the complete legal health record.[facility]
--- OUTSIDE RECORDS SUMMARY | 2025-03-10 04:59 | XMS_ITS | Encounter Summary ---
Author Organization [facility] Address [id number] [place] [address] Phone Care Team Providers Care Rice Cleaning Machine Tender Name Role Phone Callum Field MD Primary Care Provider [phone] Callum Field MD Primary Care Provider Callum Field MD Primary Care Provider [phone] Encounter Details Date Type Department Care Team (Late st Contact Info) Description 09/25/2022 Ancillary Orders Virtual Department [address] [place] [address] Mei Rodriguez MD [address] [place] [address] [email or web address] Osteopenia, unspecified location; Other specified disorders of [...] documented as of this encounter Care Teams Rice Cleaning Machine Tender Relationship Specialty Start Date End Date Callum Field MD [email or web address] PCP - General Family Medicine 09/29/19 12/27/22 Callum Field MD [email or web address] PCP - General Family Medicine 12/28/22 12/23/23 Callum Field MD [address] [place] [address] [email or web address] PCP - General Family Medicine 12/24/23 documented as of this encounter Additional Source Comments The information contained in this document represents components of the legal health record. It is not the complete legal health record.[facility]
--- OUTSIDE RECORDS SUMMARY | 2025-03-10 04:59 | XMS_ITS | Encounter Summary ---
Author Organization [facility] Address [address] [place] [address] Phone Care Team Providers Care Engraver Hand Hard Metals Name Role Phone Al Alcantara MD Primary Care Provider [phone] Al Alcantara MD Primary Care Provider [phone] Callum Field MD Primary Care Provider [phone] Callum Field MD Primary Care Provider [phone] Callum Field MD Primary Care Provider [phone] Encounter Details Date Type Department Care Team (Latest Contact Info) Description 05/01/2017 Transcribe Orders [facility] Phle[facility] Main [address] [place], [place] [phone] Vinay Serrano MD [address] [place], [place] [phone] Subchronic schizophrenia (Primary Dx) Social History Tobacco [...] EST) WBC 6.68 3.40 - 11.20 K/uL [facility] RBC 3.53(L) 3.80 - 4.80 M/uL [facility] HGB 10.6(L) 12.0 - 15.0 g/dL [facility] HCT 33.0(L) 36.0 - 46.0 % [facility] PLT 351 130 - 400 K/uL [facility] MCV 93.5 79.0 - 98.0 fL [facility] MCH 30.0 27.0 - 34.8 pg [facility] MCHC 32.1 31.5 - 36.0 g/dL [facility] RDW 14.2 10.8 - 14.6 % [facility] MPV 10.0 9.4 - 12.4 fl [facility] NRBC 0.00 /100 WBCs [facility] ABSOLUTE NRBC 0.00 K/uL [facility] DIFF METHOD Auto [facility] NEUTS 64.6 45.30 - 77.70 % [facility] LYMPHS 20.7 12.30 - 39.70 % [facility] MONOS 9.1 4.10 - 12.80 % [facility] EOS 4.3 0 - 7.2 % [facility] BASOS 1.2 0 - 2.80 % [facility] Granulocytes, immature (%) 0.1 0.0 - 0.9 % [facility] ABSOLUTE NEUTS 4.31 1.40 - 7.70 K/uL [facility] ABSOLUTE LYMPHS 1.38 0.60 - 3.20 K/uL [facility] ABSOLUTE MONOS 0.61(H) 0.11 - 0.59 K/uL [facility] ABSOLUTE EOS 0.29 0.01 - 0.50 K/uL [facility] ABSOLUTE BASOS 0.08 0.00 - 0.08 K/uL [facility] Granulocytes, immature 0.01 0.00 - 0.05 K/uL [facility] Blood 05/01/2017 10:5 1 AM EST 05/01/2017 10:53 AM EST Vinay Serrano MD LAB BLOOD BKR ORDERABLES Fi nal Result [facility] [address] [place] [address] documented in this encounter Visit Diagnoses Diagnosis Subchronic schizophrenia- Primary Unspecified schizophrenia, subchronic condition documented in this encounter Additional Health Concerns Infection Onset Date Last Indicated Resolved Time CoV-Risk Comment:Neg covid 05/20/2022 05/21/2022 05/22/2022 6:[address] CoV-Risk 01/17/2024 01/17/2024 01/28/2024 1:22 AM EDT documented as of this encounter Care Teams Engraver Hand Hard Metals Relationship Specialty Start Date End Date Al Alcantara MD [address] [place] [address] [email or web address] PCP - General 02/04/17 06/09/19 Al Alcantara MD [address] [place] [address] [email or web address] PCP - General Family Medicine 06/10/19 09/28/19 Callum Field MD [address] [place] [id number] PCP - General Family Medicine 09/29/19 12/27/22 Callum Field MD [address] [place] [address] PCP - General Family Medicine 12/28/22 12/23/23 Callum Field MD [address] [place] [address] [email or web address] PCP - General Family Medicine 12/24/23 documented as of this encounter Additional Source Comments The information contained in this document represents components of the legal health record. It is not the complete legal health record.[facility]
--- OUTSIDE RECORDS SUMMARY | 2025-03-10 05:01 | XMS_ITS | Encounter Summary ---
Author Organization [facility] Address [address] [place] [address] Phone Care Team Providers Care Apparel Merchandiser Name Role Phone Al Alcantara MD Primary Care Provider [phone] Al Alcantara MD Primary Care Provider Callum Field MD Primary Care Provider [phone] Callum Field MD Primary Care Provider [phone] Callum Field MD Primary Care Provider [phone] Encounter Details Date Type Department Care Team (Late st Contact Info) Description 03/09/2017 Transcribe Orders [facility]le[facility] Main [address] [place], [place] [phone] Vinay Serrano MD [address] [place], [place] [phone] Drug therapy (Primary Dx) Social History Tobacco [...] EST) WBC 5.93 3.40 - 11.20 K/uL [facility] RBC 3.86 3.80 - 4.80 M/uL [facility] HGB 11.7(L) 12.0 - 15.0 g/dL [facility] HCT 34.8(L) 36.0 - 46.0 % [facility] PLT 238 130 - 400 K/uL [facility] MCV 90.2 79.0 - 98.0 fL [facility] MCH 30.3 27.0 - 34.8 pg [facility] MCHC 33.6 31.5 - 36.0 g/dL [facility] RDW 13.2 10.8 - 14.6 % [facility] MPV 10.2 9.4 - 12.4 fl [facility] NRBC 0.00 /100 WBCs [facility] ABSOLUTE NRBC 0.00 K/uL [facility] DIFF METHOD Auto [facility] NEUTS 54.0 45.30 - 77.70 % [facility] LYMPHS 30.5 12.30 - 39.70 % [facility] MONOS 8.6 4.10 - 12.80 % [facility] EOS 5.4 0 - 7.2 % [facility] BASOS 1.3 0 - 2.80 % [facility] Granulocytes, immature (%) 0.2 0.0 - 0.9 % [facility] ABSOLUTE NEUTS 3.20 1.40 - 7.70 K/uL [facility] ABSOLUTE LYMPHS 1.81 0.60 - 3.20 K/uL [facility] ABSOLUTE MONOS 0.51 0.11 - 0.59 K/uL [facility] ABSOLUTE EOS 0.32 0.01 - 0.50 K/uL [facility] ABSOLUTE BASOS 0.08 0.00 - 0.08 K/uL [facility] Granulocytes, immature 0.01 0.00 - 0.05 K/uL [facility] Blood 03/09/2017 10:1 6 AM EST 03/09/2017 10:18 AM EST Vinay Serrano MD LAB BLOOD BKR ORDERABLES Fi nal Result [facility] [address] [place] [address] documented in this encounter Visit Diagnoses Diagnosis Drug therapy- Primary Encounter for other specified aftercare documented in this encounter Additional Health Concerns Infection Onset Date Last Indicated Resolved Time CoV-Risk Comment:Neg covid 05/20/2022 05/21/2022 05/22/2022 6:[address] CoV-Risk 01/17/2024 01/17/2024 01/28/2024 1:22 AM EDT documented as of this encounter Care Teams Apparel Merchandiser Relationship Specialty Start Date End Date Al Alcantara MD [address] [place] [address] [email or web address] PCP - General 02/04/17 06/09/19 Al Alcantara MD [address] [place] [address] [email or web address] PCP - General Family Medicine 06/10/19 09/28/19 Callum Field MD [address] [place] [address] [email or web address] PCP - General Family Medicine 09/29/19 12/27/22 Callum Field MD [address] [place] [address] PCP - General Family Medicine 12/28/22 12/23/23 Callum Field MD [address] [place] [address] [email or web address] PCP - General Family Medicine 12/24/23 documented as of this encounter Additional Source Comments The information contained in this document represents components of the legal health record. It is not the complete legal health record.[facility]
--- OUTSIDE RECORDS SUMMARY | 2025-03-10 05:01 | XMS_ITS | Encounter Summary ---
Author Organization [facility] Address [address] [place] [address] Phone Care Team Providers Care Teamcenter Consultant Name Role Phone Al Alcantara MD Primary Care Provider [phone] Al Alcantara MD Primary Care Provider [phone] Callum Field MD Primary Care Provider [phone] Callum Field MD Primary Care Provider [phone] Callum Field MD Primary Care Provider [phone] Encounter Details Date Type Department Care Team (Latest Contact Info) Description 06/25/2017 Transcribe Orders [facility]le[facility] Main [address] [place], [place] [phone] Vinay Serrano MD [address] [place], [place] [phone] Subchronic schizophrenia (Primary Dx) Social History Tobacco [...] EST) WBC 7.99 3.40 - 11.20 K/uL [facility] RBC 3.48(L) 3.80 - 4.80 M/uL [facility] HGB 10.8(L) 12.0 - 15.0 g/dL [facility] HCT 31.6(L) 36.0 - 46.0 % [facility] PLT 247 130 - 400 K/uL [facility] MCV 90.8 79.0 - 98.0 fL [facility] MCH 31.0 27.0 - 34.8 pg [facility] MCHC 34.2 31.5 - 36.0 g/dL [facility] RDW 14.1 10.8 - 14.6 % [facility] MPV 10.3 9.4 - 12.4 fl [facility] NRBC 0.00 /100 WBCs [facility] ABSOLUTE NRBC 0.00 K/uL [facility] DIFF METHOD Auto [facility] NEUTS 70.6 45.30 - 77.70 % [facility] LYMPHS 18.9 12.30 - 39.70 % [facility] MONOS 6.9 4.10 - 12.80 % [facility] EOS 2.5 0 - 7.2 % [facility] BASOS 0.8 0 - 2.80 % [facility] Granulocytes, immature (%) 0.3 0.0 - 0.9 % [facility] ABSOLUTE NEUTS 5.65 1.40 - 7.70 K/uL [facility] ABSOLUTE LYMPHS 1.51 0.60 - 3.20 K/uL [facility] ABSOLUTE MONOS 0.55 0.11 - 0.59 K/uL [facility] ABSOLUTE EOS 0.20 0.01 - 0.50 K/uL [facility] ABSOLUTE BASOS 0.06 0.00 - 0.08 K/uL [facility] Granulocytes, immature 0.02 0.00 - 0.05 K/uL [facility] Blood 06/25/2017 12:0 5 PM EST 06/25/2017 12:08 PM EST Vinay Serrano MD LAB BLOOD BKR ORDERABLES Fi nal Result [facility] [address] [place] [address] documented in this encounter Visit Diagnoses Diagnosis Subchronic schizophrenia- Primary Unspecified schizophrenia, subchronic condition documented in this encounter Additional Health Concerns Infection Onset Date Last Indicated Resolved Time CoV-Risk Comment:Neg covid 05/20/2022 05/21/2022 05/22/2022 6:[address] CoV-Risk 01/17/2024 01/17/2024 01/28/2024 1:22 AM EDT documented as of this encounter Care Teams Teamcenter Consultant Relationship Specialty Start Date End Date Al Alcantara MD [address] [place] [address] PCP - General 02/04/17 06/09/19 Al Alcantara MD [address] [place] [address] PCP - General Family Medicine 06/10/19 09/28/19 Callum Field MD [address] [place] [address] [email or web address] PCP - General Family Medicine 09/29/19 12/27/22 Callum Field MD [address] [place] [address] [email or web address] PCP - General Family Medicine 12/28/22 12/23/23 Callum Field MD [address] [place] [address] [email or web address] PCP - General Family Medicine 12/24/23 documented as of this encounter Additional Source Comments The information contained in this document represents components of the legal health record. It is not the complete legal health record.[facility]
--- OUTSIDE RECORDS SUMMARY | 2025-03-10 05:01 | XMS_ITS | Encounter Summary ---
Author Organization [facility] Address [address] [place] [address] Phone Care Team Providers Care Chronometer Assembler Name Role Phone Callum Field MD Primary Care Provider [phone] Callum Field MD Primary Care Provider [phone] Callum Field MD Primary Care Provider [phone] Encounter Details Date Type Department Care Team (Late st Contact Info) Description 05/22/2022 Procedure Pass [facility], Ct Scan - [facility] [address] [place], [place] [phone] Social History Tobacco Use Types Packs/Day Years [...] documented as of this encounter Care Teams Chronometer Assembler Relationship Specialty Start Date End Date Callum Field MD [email or web address] PCP - General Family Medicine 09/29/19 12/27/22 Callum Field MD [email or web address] PCP - General Family Medicine 12/28/22 12/23/23 Callum Field MD [address] [place] [address] [email or web address] PCP - General Family Medicine 12/24/23 documented as of this encounter Additional Source Comments The information contained in this document represents components of the legal health record. It is not the complete legal health record.[facility]
--- OUTSIDE RECORDS SUMMARY | 2025-03-10 05:01 | XMS_ITS | Encounter Summary ---
Author Organization [facility] Address [address] [place] [address] Phone Care Team Providers Care Lead Pony Rider Name Role Phone Al Alcantara MD Primary Care Provider Al Alcantara MD Primary Care Provider [phone] Callum Field MD Primary Care Provider [phone] Callum Field MD Primary Care Provider [phone] Callum Field MD Primary Care Provider Encounter Details Date Type Department Care Team (Late st Contact Info) Description 03/05/2018 Procedure Pass [facility] Admitting Dept Virtual Department [address] [place], [place] [phone] Social History Tobacco Use Types Packs/Day Years [...] documented as of this encounter Care Teams Lead Pony Rider Relationship Specialty Start Date End Date Al Alcantara MD [address] [place] [address] [email or web address] PCP - General 02/04/17 06/09/19 Al Alcantara MD [address] [place] [address] [email or web address] PCP - General Family Medicine 06/10/19 09/28/19 Callum Field MD [address] [place] [address] [email or web address] PCP - General Family Medicine 09/29/19 12/27/22 Callum Field MD [address] [place] [address] [email or web address] PCP - General Family Medicine 12/28/22 12/23/23 Callum Field MD [address] [place] [address] [email or web address] PCP - General Family Medicine 12/24/23 documented as of this encounter Additional Source Comments The information contained in this document represents components of the legal health record. It is not the complete legal health record.[facility]
--- OUTSIDE RECORDS SUMMARY | 2025-03-10 05:01 | XMS_ITS | Encounter Summary ---
Author Organization [facility] Address [address] [place] [address] Phone Care Team Providers Care Parking Lot Supervisor Name Role Phone Callum Field MD Primary Care Provider [phone] Clalum Field MD Primary Care Provider [phone] Callum Field MD Primary Care Provider [phone] Encounter Details Date Type Department Care Team (Late st Contact Info) Description 01/19/2022 Procedure Pass [facility], Ct Scan - [facility] [address] [place], [place] [phone] Social History Tobacco Use Types Packs/Day Years [...] 12:59 PM EDT Christy Duron RN * [place] Suicide Severity Rating Scale (Screener/Recent Self-Report) Question [...] documented as of this encounter Care Teams Parking Lot Supervisor Relationship Specialty Start Date End Date Callum Field MD [email or web address] PCP - General Family Medicine 09/29/19 12/27/22 Callum Field MD [email or web address] PCP - General Family Medicine 12/28/22 12/23/23 Callum Field MD [address] [place] [address] [email or web address] PCP - General Family Medicine 12/24/23 documented as of this encounter Additional Source Comments The information contained in this document represents components of the legal health record. It is not the complete legal health record.[facility]
--- OUTSIDE RECORDS SUMMARY | 2025-03-10 05:02 | XMS_ITS | Encounter Summary ---
Author Organization [facility] Address [address] [place] [address] Phone Care Team Providers Care Youth Probation Officer Name Role Phone Al Alcantara MD Primary Care Provider [phone] Al Alcantara MD Primary Care Provider Callum Field MD Primary Care Provider [phone] Callum Field MD Primary Care Provider [phone] Callum Field MD Primary Care Provider [phone] Encounter Details Date Type Department Care Team (Late st Contact Info) Description 01/08/2018 Transcribe Orders [facility] Phle[facility] Main [address] [place], [place] [phone] Vinay Serrano MD [address] [place], [place] [phone] Social History Tobacco Use Types Packs/Day Years [...] documented as of this encounter Care Teams Youth Probation Officer Relationship Specialty Start Date End Date Al Alcantara MD [address] [place] [address] [email or web address] PCP - General 02/04/17 06/09/19 Al Alcantara MD [address] [place] [address] [email or web address] PCP - General Family Medicine 06/10/19 09/28/19 Callum Field MD [address] [place] [address] PCP - General Family Medicine 09/29/19 12/27/22 Callum Field MD [address] [place] [address] PCP - General Family Medicine 12/28/22 12/23/23 Callum Field MD [address] [place] [address] PCP - General Family Medicine 12/24/23 documented as of this encounter Additional Source Comments The information contained in this document represents components of the legal health record. It is not the complete legal health record.[facility]
[2025-03-31] VITALS (7 sets, daily range): BP systolic 114–180; BP diastolic 87–95; PULSE 80–89; RESP 11–16; TEMP 36.1–36.6; O2SAT 96–98; BMI 30.2
--- NOTE | 2025-03-31 06:51 | HO.ANESPROP2 ---
[facility] Active Problems Active Problems: All Active Problems Fracture of right inferior pubic ramus (Acute) Fracture of superior ramus of right pubis (Acute) Arachnoid cyst (Acute) Diverticulosis (Chronic) Schizophrenia (Acute) Past Medical History Medical History Diverticulosis Schizophrenia CKD (chronic kidney disease) Hyperlipidemia Type 2 diabetes mellitus Hypothyroidism HTN (hypertension) GERD (gastroesophageal reflux disease) Mood disorder Family History Family history of problems with anesthesia: No Surgical History History of Problems with Anesthesia: No Social History Social History Household Members: None Household Members Other:: Lives at [facility] Housing: Assisted Living Facility Do you presently have visiting nurse or other home services: Yes Alcohol intake: current Alcohol intake frequency: does not drink Patient Tobacco Use Status: Never used Tobacco Tobacco use type: Cigarette Cigarette Packs Per Day: 3 Cigarettes Per Day: 60.0 Years Smoked: 16 Second Hand Smoke Exposure: No Advance Directives: No Advance Directives Information Provided: Yes service: No Current occupational status: retired Sexual orientation: Straight/Heterosexual Meds Allergies Allergy/AdvReac Type Severity Reaction Status Date / Time trifluoperazine (From Allergy Unknown Verified 09/25/24 09:52 Stelazine) Home Medications ?Medication ?Instructions ?Recorded ?Confirmed ?Last Taken ?Type acetaminophen 325 mg tablet 650 mg PO Q6H PRN pain/fever 06/22/24 11/25/24 Unknown History hydroxyzine HCl 25 mg tablet 25 mg PO Q6H PRN Anxiety 06/22/24 11/25/24 Unknown History polyethylene glycol 3350 17 gram 17 g PO BEDTIME 06/22/24 11/25/24 06/21/24 20:00 History oral powder packet polyethylene glycol 3350 17 gram 17 g PO DAILY PRN Constipation 06/22/24 11/25/24 Unknown History oral powder packet sennosides 8.6 mg tablet (Senna 8.6 mg PO BEDTIME 06/22/24 11/25/24 06/21/24 20:00 History Lax) sennosides 8.6 mg tablet (senna) 8.6 mg PO DAILY PRN Constipation 06/22/24 11/25/24 Unknown History trazodone 50 mg tablet 50 mg PO BEDTIME 03/07/1411/25/24 06/21/24 20:00 History trazodone 50 mg tablet 50 mg PO BEDTIME PRN Insomnia 06/22/24 11/25/24 Unknown History bisacodyl 10 mg rectal suppository 10 mg VT DAILY PRN Constipation 07/03/24 11/25/24 Unknown History (Dulcolax (bisacodyl)) magnesium hydroxide 400 mg/5 mL 5 ml PO DAILY PRN Constipation 07/03/24 11/25/24 Unknown History oral suspension (Milk of Magnesia) sennosides 8.6 mg tablet (Senna 8.6 mg PO BEDTIME 07/03/24 11/25/24 Unknown History Lax) sodium phosphates 19 gram-7 118 ml VT DAILY PRN Dehydration 07/03/24 11/25/24 Unknown History gram/118 mL enema (Fleet Enema) cephalexin 500 mg capsule 500 mg PO QID 08/13/24 11/25/24 Unknown History Exam Airway Mallampati Class: II (teeth missing top and bottom) TM Dist: >3cm Neck ROM: Full Partial: Upper Heart: rrr Lungs: cta Assessment and Plan Assessment Anesthesia Assessment: Anesthesia Plan Discussed and Chart Reviewed Final Anesthetic Review Family History of Problems with Anesthesia: No History of Problems with Anesthesia: No NPO: Yes ASA Class: III Final Preanesthetic Review: No Changes in Pt Med Stat, Meds/Allgs Chart Reviewed and Consent Obtained/Reviewed Patient Risk: Intermediate Procedure Risk: Intermediate Anesthetic Plan Anesthetic Plan: GA Disposition: Standard PACU
--- NOTE | 2025-03-31 07:21 | MHC.SHP ---
Pre-Procedural Eval Section A - 24 Hr Update-Section A only Date of Service: 03/31/25 Section B - Complete if H&P > 30 days Chief Complaint: depression Details of Present Illness: recurrent guilty delusional dep sx intrusive guilt improved no c/o side effect feels better no si Medical History: No relevant PMH Allergies: Allergies Allergy/AdvReac Type Severity Reaction Status Date / Time trifluoperazine (From Allergy Unknown Verified 09/25/24 09:52 Stelazine) Review of Systems Sugical H&P ROS: Negative: Cardiovascular, Respiratory and Neurological and Yes, Specify: Psychiatric (some intrusive thoughts), Musculoskeletal (gait ) and Eyes/Ears/Nose/Throat (s/p removal basal cell nasal) Exam Surgical H&P Exam: Normal: Heart (RRR; no murmurs), Normal: Lungs (CTA b/l throughout) and Normal: Neurological (alert o x3 clear) Plan Diagnosis/Plan: Unchanged I have reviewed the history and physical and performed a pertinent physical examination on my patient. No changes have occurred unless specified. Time Spent With Patient Time: Total time managing care of this patient today ____ minutes.
--- NOTE | 2025-03-31 07:22 | HO.ECTPROC ---
ECT Procedure Note Diagnosis/Treatment Date of Service: 03/31/25 Diagnosis: Schizoaffective Disorder Treatment: Maintenance Interval Clinical Notes: Patient continues to feel ect quite helpful. Mood stable xcept removal of basa l cell. No significant side effects noted. No change in medical condition Time: Total time managing care of this patient today ____ minutes. ECT Settings Device: THYMATRON DGx Electrode Placement: Bifrontal Program/Pulse Width: 0.50 Energy Percent: 100 Seizure Duration By EEG (in seconds): 20 Medications Administration General Anesthetic: Etomidate (12) Muscle Relaxant: Succinylcholine (80) Ancillary Medications Anti-emetics: Zofran - Pre ECT Airway Management Airway Management: Bag Mask Ventilation Treatment Recommendations Pt Tolerated Procedure w/o Issue: Yes
== END 2025-03-31 08:43 | disposition home or self-care (01) ==
PROVIDERS: PCP Internal Medicine; Visit Provider Psychiatry & Neurology Psychiatry
PROC: (CPT 90870; principal; 2025-03-31 07:30)
DX: F25.8 Other schizoaffective disorders (principal); F06.0 Psychotic disorder with hallucinations due to known physiological condition; I12.9 Hypertensive chronic kidney disease with stage 1 through stage 4 chronic kidney disease, or unspecified chronic kidney disease; N18.30 Chronic kidney disease, stage 3 unspecified; E11.22 Type 2 diabetes mellitus with diabetic chronic kidney disease; E78.2 Mixed hyperlipidemia; K21.9 Gastro-esophageal reflux disease without esophagitis; E03.9 Hypothyroidism, unspecified; Z79.899 Other long term (current) drug therapy; Z88.8 Allergy status to other drugs, medicaments and biological substances
CPT/HCPCS: 90870; J0330; J2405; J2704

== ENCOUNTER → 2025-03-31 06:25 | Outpatient (BNV) | payer MEDICARE, MEDICAID, SELFPAY | PROVIDERS: PCP Internal Medicine; Visit Provider Psychiatry & Neurology Psychiatry | DX: F33.2 Major depressive disorder, recurrent severe without psychotic features (principal) | CPT/HCPCS: 90870 ==